=== PATIENT | female | born 1990 | race Caucasian/White ===

== ENCOUNTER 2022-08-15 17:26 | Emergency (ER) | payer OTHER, SELFPAY ==
[2022-08-15 17:34] VITALS: BP 128/97; PULSE 68; RESP 18; TEMP 37.1; O2SAT 97; BMI 30.2
--- NOTE | 2022-08-15 17:41 | XR_ITS ---
[address] [address] Patient Name: ROXANNE ROGERS MRN: [id number] date: 1990 Sex: F Assigned Patient Location: ER Current Patient Location: ER Accession/Order Number: [id number] Exam Date: 08/15/2022 17:42 Report Date: 08/15/2022 18:28 At the request of: SANTANA CHARLES Procedure: XR foot LT min 3V EXAM: XR foot LT min 3V HISTORY: Left great toe injury COMPARISON: None. TECHNIQUE: 3 views left foot. FINDINGS: No fracture or dislocation. No significant swelling. No radiopaque foreign body. Minimal degenerative change of the great toe MTP joint. Tiny plantar calcaneal enthesophyte. IMPRESSION: No acute process left great toe. Electronically authenticated by: GIULIANO JAMES Date: 08/15/2022 18:28
--- NOTE | 2022-08-15 17:43 | ED.LOWEXI1 ---
HPI - Extremity Injury (Lower) General Chief Complaint: Extremity Injury, Lower Stated Complaint: LOWER EXTREMITY PAIN Time Seen by Provider: 08/15/22 17:34 Source: patient Mode of arrival: walk-in Limitations: no limitations History of Present Illness HPI Narrative: 31 year old female presents to the ED for pain to her left great toe s/p injury one week ago. States she missed a step and stubbed the toe. Denies N/T. She has increased pain with movement and palpation. Related Data Home Medications Medication Instructions Recorded Confirmed drospirenone 3 mg-ethinyl 1 tab PO DAILY 08/15/22 08/15/22 estradiol 0.03 mg tablet (Caterina) sertraline 50 mg tablet 50 mg PO Q24H 08/15/22 08/15/22 trazodone 100 mg tablet 100 mg PO BEDTIME 08/15/22 08/15/22 Allergies Allergy/AdvReac Type Severity Reaction Status Date / Time No Known Drug Allergies Allergy Verified 08/15/22 17:32 Review of Systems ROS Constitutional Denies: fever or chills Cardiovascular Denies: chest pain Respiratory Denies: shortness of breath Musculoskeletal Reports: extremity pain Neurological Denies: numbness in extremities or weakness in extremities [facility] Medical History (Updated 08/15/22 @ 18:34 by Marilu Mei) Social History Smoking status: Former smoker Exam Constitutional Vital Signs - 24 hr 08/15/22 17:34 Temperature 98.7 F Pulse Rate [Monitor] 68 Respiratory Rate 18 Blood Pressure [Left Arm] 128/97 H Pulse Oximetry 97 Oxygen Delivery Method Room Air Common normals: no apparent distress and oriented x3 General appearance: cooperative; not ill appearing Eye Common normals: no scleral icterus Chest Chest: symmetrical chest wall rise Respiratory Common normals: normal respiratory effort Extremity Left lower extremity: foot and digits Left foot and digits: inspection (No swelling or deformity noted to left great toe. Scab noted to distal toe.), palpation (Tenderness left great toe. Pad of the digit is soft. ), neurovascular exam (Distal sensation intact. Pedal pulses palpable. Cap refill <3 sec.) and other (Appears to be no nail involvement.) Neuro Common normals: oriented x3 Sensorium/orientation: awake and alert Course Vital Signs Vital signs: Vital Signs Temperature 98.7 F 08/15/22 17:34 Pulse Rate 68 08/15/22 17:34 Respiratory Rate 18 08/15/22 17:34 Blood Pressure 128/97 H 08/15/22 17:34 Pulse Oximetry 97 08/15/22 17:34 Oxygen Delivery Method Room Air 08/15/22 17:34 Temperature 98.7 F 08/15/22 17:34 Pulse Rate 68 08/15/22 17:34 Respiratory Rate 18 08/15/22 17:34 Blood Pressure 128/97 H 08/15/22 17:34 Pulse Oximetry 97 08/15/22 17:34 Oxygen Delivery Method Room Air 08/15/22 17:34 MDM - Extremity Injury (Lower) MDM Narrative Medical decision making narrative: X-rays of the left foot show no acute findings. Findings were discussed with the patient. She was encouraged to follow up with her pcp for a recheck, further evaluation and treatment; return to ED if condition worsens. Differential Diagnosis Differential diagnosis: Likely fracture of toe and other (toe sprain, toe contusion) Imaging Data X-ray foot: Radiologist's impression: Procedure:? XR foot LT min 3V ? EXAM: XR foot LT min 3V ? HISTORY: Left great toe injury ? COMPARISON: None. ? TECHNIQUE: 3 views left foot. ? FINDINGS: No fracture or dislocation. No significant swelling. No radiopaque foreign body. Minimal degenerative change of the great toe MTP joint. Tiny plantar calcaneal enthesophyte. ? IMPRESSION: No acute process left great toe. ? ? Electronically authenticated by: GIULIANO? JACOB ? Date: 08/15/2022? 18:28 Discharge Plan Discharge Chief Complaint: Extremity Injury, Lower Clinical Impression: Sprain of toe, great, left Patient Disposition: Home, Self-Care Time of Disposition Decision: 18:34 Condition: Good Mode of Transportation: Private Vehicle Prescriptions / Home Meds: No Action trazodone 100 mg tablet 100 mg PO BEDTIME sertraline 50 mg tablet 50 mg PO Q24H drospirenone-ethinyl estradiol [Caterina] 3-0.03 mg tablet 1 tab PO DAILY Instructions: Foot Contusion (ED), Foot Sprain (ED) Stand Alone Forms: Portal Instructions Referrals: Анна Ha [Primary Care Provider] - 1 week
== END 2022-08-15 18:49 | disposition home or self-care (01) ==
PROVIDERS: Emergency Provider Emergency Medicine; PCP Nurse Practitioner
DX: S93.502A Unspecified sprain of left great toe, initial encounter (principal); W22.8XXA Striking against or struck by other objects, initial encounter
CPT/HCPCS: 73630; 99283

== ENCOUNTER 2022-09-22 15:45 | Emergency (ER) | payer OTHER, SELFPAY ==
[2022-09-22 15:49] VITALS: BP 139/82; PULSE 66; RESP 16; TEMP 36.6; O2SAT 98; BMI 29.1
[2022-09-22 16:05] LABS: Bilirubin Urine NEGATIVE (NEGATIVE); Blood Urine TRACE-I (NEGATIVE); Clarity Urine CLEAR (CLEAR); Color Urine YELLOW (YELLOW); Glucose Urine UA NEGATIVE (NEGATIVE); Ketones Urine NEGATIVE (NEGATIVE); Leukocyte Esterase Urine NEGATIVE (NEGATIVE); Nitrite Urine NEGATIVE (NEGATIVE); Protein Urine NEGATIVE (NEG/TRACE); pH Urine 6.5 (5.0-9.0)
[2022-09-22 16:06] LABS: Urine Microscopic Indicated YES
[2022-09-22 16:11] LABS: Bacteria Urine NONE SEEN #/HPF (NONE SEEN); Cast Seen? NONE SEEN #/LPF (NONE SEEN); Crystals Seen? None Seen #/HPF (None Seen); Mucus Urine NONE SEEN (NONE SEEN); RBC Urine 0-2 #/HPF (0-2); Squamous Epithelial Cell Urine FEW #/LPF (NONE/RARE); Urine Culture Indicated NO; WBC Urine NONE SEEN #/HPF (NONE SEEN)
--- NOTE | 2022-09-22 16:13 | XR_ITS ---
[address] [address] Patient Name: ROXANNE ROGERS MRN: [id number] date: 1990 Sex: F Assigned Patient Location: ER Current Patient Location: ER Accession/Order Number: [id number] Exam Date: 09/22/2022 16:33 Report Date: 09/22/2022 16:43 At the request of: CHRIS MORA Procedure: XR chest 1V Exam: Radiographs: XR chest 1V Reason for exam: left upper quadrant abdominal pain Comparison: Chest x-ray dated 02/20/2022 XR/XR chest 1V IMPRESSION: Negative chest. Electronically authenticated by: DIPAK DICKEY Date: 09/22/2022 16:43
--- NOTE | 2022-09-22 16:16 | ED_ITS ---
Documented by User: GISELLE Zarco 09/22/22 17:14 HPI - General Adult General Chief complaint: Abdominal Pain Stated complaint: Abdominal Pain Time Seen by Provider: 09/22/22 15:46 Source: patient Mode of arrival: walk-in History of Present Illness HPI narrative: patient is a 32-year-old female presents to the Emergency Room with concerns of left upper and lower quadrant and left flank abdominal pain. Patient notes symptoms started yesterday and have been constant becoming worse. Patient tried to go to [place] this morning and cannot make it due to the pain in abdomen. 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 She denies any dysuria. She describes the pain as aching constant throbbing pain in her left flank , left upper and lower macario drant. She denies any vaginal discharge or drainage, denies dysuria. Positive nausea. Patient without fever or chills.patient reports bowel movements have been regular and without blood or mucus, denies diarrhea. She denies any prior history of deep vein thrombosis or PE, no family history of deep vein thrombosis or PE. patient denies any recent surgery, long travels or flights.She has no personal history of Crohn's or colitis. Patient states she does have a cousin who cannot eat seeds secondary to a bowel problem. pt notes pain moderate to severe 8/10 undulating Radiation: Reports abdomen (+ bloated fullness at times) Severity: moderate Quality: Reports aching and constant Pain Consistency: Reports constant and colicky Relieving factors: Reports none Exacerbating factors: Reports none Associated symptoms: Denies cough, diaphoresis, fever/chills, loss of appetite or syncope Treatments prior to arrival: Reports none Related Data Home Medications Medication Instructions Recorded Confirmed drospirenone 3 mg-ethinyl 1 tab PO DAILY 08/15/22 08/15/22 estradiol 0.03 mg tablet (Caterina) sertraline 50 mg tablet 50 mg PO Q24H 08/15/22 08/15/22 trazodone 100 mg tablet 100 mg PO BEDTIME 08/15/22 08/15/22 Previous Rx's Medication Instructions Recorded ondansetron HCl 4 mg tablet 4 mg PO Q6H PRN nausea and 09/22/22 vomiting #12 tabs Allergies Allergy/AdvReac Type Severity Reaction Status Date / Time No Known Drug Allergies Allergy Verified 08/15/22 17:32 Review of Systems ROS Constitutional Denies: fever or chills Eyes Denies: change in vision Ears, nose, mouth, and throat Denies: throat pain or neck pain Cardiovascular Denies: chest pain or palpitations Respiratory Denies: shortness of breath or cough Gastrointestinal Reports: abdominal pain and nausea; Denies: vomiting or diarrhea Genitourinary Denies: painful urination, urinary frequency or urinary urgency Musculoskeletal Denies: back pain, neck pain or extremity pain Integumentary/Breast Denies: rash, itching or redness Neurological Denies: headache Psychiatric Denies: anxiety [facility] Medical History (Updated 09/22/22 @ 17:04 by GISELLE Zarco) Social History Smoking status: Former smoker Exam Narrative Exam Narrative: Nurses notes and vital signs reviewed and patient is not hypoxic. General:? The patient appears well and in no apparent distress.? Patient is resting comfortably on cart. Skin:? Warm, dry, no pallor noted.no evidence of zoster-like rash Head:? Normocephalic, atraumatic Neck:? Supple, trachea mid-line, no tenderness, no lymphadenopathy Eye:? Pupils are equal, round and reactive to light, EOMI Ears, Nose, Mouth, and Throat:? TM are clear, normal light reflex, oral mucosa is moist, no posterior oropharynx erythema or hypertrophy, uvula is mid-line Cardiovascular:? Regular Rate and Rhythm Respiratory:? Patient is in no distress, no accessory muscle use, lungs are clear to auscultation, no wheezing, rales or rhonchi. Chest Wall:? minmal left lower chest wall tenderness, no focal rib tenderness. no palpable crepitus, patient is more tender in the left flank and left upper quadrant and then the left chest wall Back:? non-tender to the midline thoracic or lumbar spine. mild left CVA tenderness Musculoskeletal:? normal ROM, no tenderness, no swelling GI:? Normal bowel sounds, positive diffuse tenderness left upper, left mid and left lower quadrant. no masses appreciated.? No rebound, guarding, or rigidity noted. Neurological:? A&O x4 Psychiatric:? Cooperative Constitutional Vital Signs, click to edit/add: Last Vital Signs Temp 97.8 F 09/22/22 15:49 Pulse 66 09/22/22 15:49 Resp 16 09/22/22 15:49 BP 139/82 09/22/22 15:49 Pulse Ox 98 09/22/22 15:49 O2 Del Method Room Air 09/22/22 15:49 Course Vital Signs Vital signs: Vital Signs Temperature 97.8 F 09/22/22 15:49 Pulse Rate 66 09/22/22 15:49 Respiratory Rate 16 09/22/22 15:49 Blood Pressure 139/82 09/22/22 15:49 Pulse Oximetry 98 09/22/22 15:49 Oxygen Delivery Method Room Air 09/22/22 15:49 Temperature 97.8 F 09/22/22 15:49 Pulse Rate 66 09/22/22 15:49 Respiratory Rate 16 09/22/22 15:49 Blood Pressure 139/82 09/22/22 15:49 Pulse Oximetry 98 09/22/22 15:49 Oxygen Delivery Method Room Air 09/22/22 15:49 Medical Decision Making MDM Narrative Medical decision making narrative: patient with left flank pain, we discussed patient's symptoms of pain in the left upper and left lower quadrant. Constant. Over forty-eight hours. Abrupt in onset per patient. Patient denies any fever or dysuria. Denies any vaginal symptoms.urinalysis with trace blood, CT of the abdomen and pelvis without contrast performed rule out stone, diverticulitis discussed with the patient given the level for pain and persistence over the past forty-eight hours. Posterior chest x-ray and laboratory studies, patient has stable vital signs, pleuritic chest pain not appreciated and Wells Criteria for PE is neg. discussed laboratory studies and CT scan, discussed stool burden throughout the colon, further discussion with the patient at bedside even though her pain is constant she does note rhythmic changes with sometimes symptoms worse than others without change in position or movement, patient states she is relieved that there is no infectious process. She does not have any difficulty breathing. We've discusssed using MiraLAX daily which she or he has at home and will be given his mag citrate half bottle now and half bottle to take an morning , if not experiencing relief. A brief prescription of Zofran will be sent for nausea. We discussed at length the need to return to the Emergency Room should symptoms worsen or new symptoms develop despite evaluation today with CT and laboratory studies.patient appears in no distress. We discussed medications given and she reports no significant relief but feels better and willing to try the medics citrate at home. The patient is to followup with primary care physician in next 1-2 days or to return to the emergency department should any of the signs or symptoms worsen or new symptoms develop. Patient had questions answered. The patient agrees with the following Diagnosis and Treatment plan and the patient will be discharged home.? Lab Data Lab results reviewed: Yes I reviewed the patient's lab results Labs: Lab Results 09/22/22 09/22/22 09/22/22 Range/Units 16:00 16:10 16:18 WBC 10.4 (4.0-11.0) 10^3/uL RBC 3.87 L (4.20-5.40) 10^6/uL Hgb 11.9 L (12.0-16.0) g/dL Hct 35.1 L (36.0-48.0) % MCV 90.7 (81.0-99.0) fL MCH 30.7 (26.7-34.0) pg MCHC 33.9 (29.9-35.2) g/dL RDW 12.0 (11.0-15.0) % Plt Count 306 (150-450) 10^3/uL MPV 9.8 (9.5-13.5) fL Neut % (Auto) 67.1 (43.0-75.0) % Lymph % (Auto) 25.6 (20.5-60.0) % Dawson % (Auto) 6.5 (1.7-12.0) % Eos % (Auto) 0.2 L (0.9-7.0) % Baso % (Auto) 0.3 (0.2-2.0) % Neut # (Auto) 7.0 H (1.4-6.5) 10^3/uL Lymph # (Auto) 2.7 (1.2-3.8) 10^3/uL Dawson # (Auto) 0.7 (0.3-0.8) 10^3/uL Eos # (Auto) 0.0 (0.0-0.7) 10^3/uL Baso # (Auto) 0.0 (0.0-0.1) 10^3/uL Abs Immat Gran (auto) 0.03 (0.00-0.03) 10^3/uL Imm/Tot Granulo (auto) 0.3 (0.0-0.5) % Sodium 138 (136-145) mmol/L Potassium 4.1 (3.5-5.1) mmol/L Chloride 102 (98-107) mmol/L Carbon Dioxide 26.5 (21.0-32.0) mmol/L Anion Gap 13.6 BUN 8.0 (7.0-18.0) mg/dL Creatinine 0.85 (0.55-1.02) mg/dL Est GFR ( Amer) >60 (>=60) Est GFR (Non-Af Amer) >60 (>=60) BUN/Creatinine Ratio 9.4 Glucose 99 (74-106) mg/dL Lactate 0.8 (0.4-2.0) mmol/L Calcium 8.5 (8.5-10.1) mg/dL Total Bilirubin 0.4 (0.2-1.0) mg/dL AST <5 L (15-37) U/L ALT 29 (14-59) U/L Alkaline Phosphatase 58 (46-116) U/L Troponin I High Sens <4.0 L (4.0-51.3) pg/mL Total Protein 7.8 (6.4-8.2) g/dL Albumin 3.7 (3.4-5.0) g/dL Globulin 4.1 g/dL Albumin/Globulin Ratio 0.9 Lipase 351.0 (73.0-393.0) U/L Urine Color Yellow (YELLOW) Urine Clarity Clear (CLEAR) Urine pH 6.5 (5.0-9.0) Ur Specific [place] 1.020 (1.005-1.025) Urine Protein Negative (NEG/TRACE) mg/dL Urine Glucose (UA) Negative (NEGATIVE) mg/dL Urine Ketones Negative (NEGATIVE) mg/dL Urine Occult Blood Trace-i (NEGATIVE) Urine Nitrite Negative (NEGATIVE) Urine Bilirubin Negative (NEGATIVE) Urine Urobilinogen 1.0 (0.2-1.0) EU/dL Ur Leukocyte Esterase Negative (NEGATIVE) Urine RBC 0-2 (0-2) #/HPF Urine WBC None seen (NONE SEEN) #/HPF Ur Squamous Epith Cells Few A (NONE/RARE) #/LPF Urine Crystals None seen (None Seen) #/HPF Urine Bacteria None seen (NONE SEEN) #/HPF Urine Casts None seen (NONE SEEN) #/LPF Urine Mucus None seen (NONE SEEN) Ur Culture Indicated? No Urine HCG, Qual Negative (NEGATIVE) Imaging Data Chest x-ray: Radiologist's impression: Procedure: XR chest 1V Exam: Radiographs: XR chest 1V Reason for exam: left upper quadrant abdominal pain Comparison: Chest x-ray dated 02/20/2022 IMPRESSION: Negative chest. Electronically authenticated by: DIPAK DICKEY Date: 09/22/2022 16:43 CT scan - abdomen: Radiologist's impression: Procedure:? CT abdomen pelvis wo con ? EXAM: CT abdomen pelvis wo con ? HISTORY: left flank pain r/o stone diverticulitis ? COMPARISON: None. ? TECHNIQUE: Unenhanced helical acquisition obtained through the abdomen and the ? pelvis. ? FINDINGS: Calcified right lower lobe pulmonary granuloma. The pleural spaces are clear. Allowing for the lack of intravenous contrast, the liver, spleen, pancreas and the adrenal glands are unremarkable. Unremarkable gallbladder. No ? renal or ureteral calculi. No enlarged lymph nodes within the abdomen or the pelvis. Normal appendix. Fairly extensive stool burden throughout the colon to ? level of the rectum. No evidence of bowel obstruction or significant ileus. Chronic bilateral L5 spondylolysis. ? CT/CT abdomen pelvis wo con IMPRESSION: ? 1. No renal or ureteral calculi. ? 2. Normal appendix. No inflammatory changes within the abdomen or the pelvis. ? 3. Fairly extensive stool burden throughout the colon indicating constipation. ? 4. Chronic bilateral L5 spondylolysis. ? ? Electronically authenticated by: RELL HERRERA ? Date: 09/22/2022? 16:56 Discharge Plan Discharge Chief Complaint: Abdominal Pain Clinical Impression: Abdominal pain, Constipation Patient Disposition: Home, Self-Care Time of Disposition Decision: 17:05 Condition: Good Prescriptions / Home Meds: New ondansetron HCl 4 mg tablet 4 mg PO Q6H PRN (Reason: nausea and vomiting) Qty: 12 0RF No Action trazodone 100 mg tablet 100 mg PO BEDTIME sertraline 50 mg tablet 50 mg PO Q24H drospirenone-ethinyl estradiol [Caterina] 3-0.03 mg tablet 1 tab PO DAILY Instructions: Constipation (ED), Abdominal Pain (ED) Stand Alone Forms: Portal Instructions Referrals: Анна Ha [Primary Care Provider] - As soon as possible Discharge Date/Time: 09/22/22 17:41 Documented by User: Tiffany Ramirez MD 09/23/22 20:31 HPI - General Adult General Chief complaint: Abdominal Pain Stated complaint: Abdominal Pain Time Seen by Provider: 09/22/22 15:46 Related Data Home Medications Medication Instructions Recorded Confirmed drospirenone 3 mg-ethinyl 1 tab PO DAILY 08/15/22 08/15/22 estradiol 0.03 mg tablet (Caterina) sertraline 50 mg tablet 50 mg PO Q24H 08/15/22 08/15/22 trazodone 100 mg tablet 100 mg PO BEDTIME 08/15/22 08/15/22 Previous Rx's Medication Instructions Recorded ondansetron HCl 4 mg tablet 4 mg PO Q6H PRN nausea and 09/22/22 vomiting #12 tabs Allergies Allergy/AdvReac Type Severity Reaction Status Date / Time No Known Drug Allergies Allergy Verified 08/15/22 17:32 [facility] Medical History (Updated 09/22/22 @ 17:04 by GISELLE Zarco) Social History Smoking status: Former smoker Exam Constitutional Vital Signs, click to edit/add: Last Vital Signs Temp 97.8 F 09/22/22 15:49 Pulse 66 09/22/22 15:49 Resp 16 09/22/22 15:49 BP 139/82 09/22/22 15:49 Pulse Ox 98 09/22/22 15:49 O2 Del Method Room Air 09/22/22 15:49 Course Vital Signs Vital signs: Vital Signs Temperature 97.8 F 09/22/22 15:49 Pulse Rate 66 09/22/22 15:49 Respiratory Rate 16 09/22/22 15:49 Blood Pressure 139/82 09/22/22 15:49 Pulse Oximetry 98 09/22/22 15:49 Oxygen Delivery Method Room Air 09/22/22 15:49 Temperature 97.8 F 09/22/22 15:49 Pulse Rate 66 09/22/22 15:49 Respiratory Rate 16 09/22/22 15:49 Blood Pressure 139/82 09/22/22 15:49 Pulse Oximetry 98 09/22/22 15:49 Oxygen Delivery Method Room Air 09/22/22 15:49 Medical Decision Making MDM Narrative Medical decision making narrative: patient with left flank pain, we discussed patient's symptoms of pain in the left upper and left lower quadrant. Constant. Over forty-eight hours. Abrupt in onset per patient. Patient denies any fever or dysuria. Denies any vaginal symptoms.urinalysis with trace blood, CT of the abdomen and pelvis without contrast performed rule out stone, diverticulitis discussed with the patient given the level for pain and persistence over the past forty-eight hours. Posterior chest x-ray and laboratory studies, patient has stable vital signs, pleuritic chest pain not appreciated and Wells Criteria for PE is neg. discussed laboratory studies and CT scan, discussed stool burden throughout the colon, further discussion with the patient at bedside even though her pain is constant she does note rhythmic changes with sometimes symptoms worse than others without change in position or movement, patient states she is relieved that there is no infectious process. She does not have any difficulty breathing. We've discusssed using MiraLAX daily which she or he has at home and will be given his mag citrate half bottle now and half bottle to take an morning , if not experiencing relief. A brief prescription of Zofran will be sent for nausea. We discussed at length the need to return to the Emergency Room should symptoms worsen or new symptoms develop despite evaluation today with CT and laboratory studies.patient appears in no distress. We discussed medications given and she reports no significant relief but feels better and willing to try the medics citrate at home. The patient is to followup with primary care physician in next 1-2 days or to return to the emergency department should any of the signs or symptoms worsen or new symptoms develop. Patient had questions answered. The patient agrees with the following Diagnosis and Treatment plan and the patient will be discharged home.? Attending physician attestation I have reviewed the mid-level documentation, agree with the documentation, medical decision making and treatment plan as outlined by the mid-level provider. Lab Data Labs: Lab Results 09/22/22 09/22/22 09/22/22 Range/Units 16:00 16:10 16:18 WBC 10.4 (4.0-11.0) 10^3/uL RBC 3.87 L (4.20-5.40) 10^6/uL Hgb 11.9 L (12.0-16.0) g/dL Hct 35.1 L (36.0-48.0) % MCV 90.7 (81.0-99.0) fL MCH 30.7 (26.7-34.0) pg MCHC 33.9 (29.9-35.2) g/dL RDW 12.0 (11.0-15.0) % Plt Count 306 (150-450) 10^3/uL MPV 9.8 (9.5-13.5) fL Neut % (Auto) 67.1 (43.0-75.0) % Lymph % (Auto) 25.6 (20.5-60.0) % Dawson % (Auto) 6.5 (1.7-12.0) % Eos % (Auto) 0.2 L (0.9-7.0) % Baso % (Auto) 0.3 (0.2-2.0) % Neut # (Auto) 7.0 H (1.4-6.5) 10^3/uL Lymph # (Auto) 2.7 (1.2-3.8) 10^3/uL Dawson # (Auto) 0.7 (0.3-0.8) 10^3/uL Eos # (Auto) 0.0 (0.0-0.7) 10^3/uL Baso # (Auto) 0.0 (0.0-0.1) 10^3/uL Abs Immat Gran (auto) 0.03 (0.00-0.03) 10^3/uL Imm/Tot Granulo (auto) 0.3 (0.0-0.5) % Sodium 138 (136-145) mmol/L Potassium 4.1 (3.5-5.1) mmol/L Chloride 102 (98-107) mmol/L Carbon Dioxide 26.5 (21.0-32.0) mmol/L Anion Gap 13.6 BUN 8.0 (7.0-18.0) mg/dL Creatinine 0.85 (0.55-1.02) mg/dL Est GFR ( Amer) >60 (>=60) Est GFR (Non-Af Amer) >60 (>=60) BUN/Creatinine Ratio 9.4 Glucose 99 (74-106) mg/dL Lactate 0.8 (0.4-2.0) mmol/L Calcium 8.5 (8.5-10.1) mg/dL Total Bilirubin 0.4 (0.2-1.0) mg/dL AST <5 L (15-37) U/L ALT 29 (14-59) U/L Alkaline Phosphatase 58 (46-116) U/L Troponin I High Sens <4.0 L (4.0-51.3) pg/mL Total Protein 7.8 (6.4-8.2) g/dL Albumin 3.7 (3.4-5.0) g/dL Globulin 4.1 g/dL Albumin/Globulin Ratio 0.9 Lipase 351.0 (73.0-393.0) U/L Urine Color Yellow (YELLOW) Urine Clarity Clear (CLEAR) Urine pH 6.5 (5.0-9.0) Ur Specific [place] 1.020 (1.005-1.025) Urine Protein Negative (NEG/TRACE) mg/dL Urine Glucose (UA) Negative (NEGATIVE) mg/dL Urine Ketones Negative (NEGATIVE) mg/dL Urine Occult Blood Trace-i (NEGATIVE) Urine Nitrite Negative (NEGATIVE) Urine Bilirubin Negative (NEGATIVE) Urine Urobilinogen 1.0 (0.2-1.0) EU/dL Ur Leukocyte Esterase Negative (NEGATIVE) Urine RBC 0-2 (0-2) #/HPF Urine WBC None seen (NONE SEEN) #/HPF Ur Squamous Epith Cells Few A (NONE/RARE) #/LPF Urine Crystals None seen (None Seen) #/HPF Urine Bacteria None seen (NONE SEEN) #/HPF Urine Casts None seen (NONE SEEN) #/LPF Urine Mucus None seen (NONE SEEN) Ur Culture Indicated? No Urine HCG, Qual Negative (NEGATIVE) Discharge Plan Discharge Chief Complaint: Abdominal Pain Clinical Impression: Abdominal pain, Constipation Patient Disposition: Home, Self-Care Time of Disposition Decision: 17:05 Condition: Good Prescriptions / Home Meds: New ondansetron HCl 4 mg tablet 4 mg PO Q6H PRN (Reason: nausea and vomiting) Qty: 12 0RF No Action trazodone 100 mg tablet 100 mg PO BEDTIME sertraline 50 mg tablet 50 mg PO Q24H drospirenone-ethinyl estradiol [Caterina] 3-0.03 mg tablet 1 tab PO DAILY Instructions: Constipation (ED), Abdominal Pain (ED) Stand Alone Forms: Portal Instructions Referrals: Анна Ha [Primary Care Provider] - As soon as possible Discharge Date/Time: 09/22/22 17:41
[2022-09-22 16:22] LABS: HCG Qualitative Urine* NEGATIVE (NEGATIVE)
--- NOTE | 2022-09-22 16:23 | CT_ITS ---
The [address] [address] Patient Name: ROXANNE ROGERS MRN: [id number] date: 1990 Sex: F Assigned Patient Location: ER Current Patient Location: ER Accession/Order Number: [id number] Exam Date: 09/22/2022 16:36 Report Date: 09/22/2022 17:00 At the request of: CHRIS MORA Procedure: CT abdomen pelvis wo con EXAM: CT abdomen pelvis wo con HISTORY: left flank pain r/o stone diverticulitis COMPARISON: None. TECHNIQUE: Unenhanced helical acquisition obtained through the abdomen and the pelvis. FINDINGS: Calcified right lower lobe pulmonary granuloma. The pleural spaces are clear. Allowing for the lack of intravenous contrast, the liver, spleen, pancreas and the adrenal glands are unremarkable. Unremarkable gallbladder. No renal or ureteral calculi. No enlarged lymph nodes within the abdomen or the pelvis. Normal appendix. Fairly extensive stool burden throughout the colon to level of the rectum. No evidence of bowel obstruction or significant ileus. Chronic bilateral L5 spondylolysis. CT/CT abdomen pelvis wo con IMPRESSION: 1. No renal or ureteral calculi. 2. Normal appendix. No inflammatory changes within the abdomen or the pelvis. 3. Fairly extensive stool burden throughout the colon indicating constipation. 4. Chronic bilateral L5 spondylolysis. Electronically authenticated by: GORDY HERRERA Date: 09/22/2022 17:00
[2022-09-22 16:25] LABS: Basophils Percent Auto 0.3 % (0.2-2.0); Eosinophils Percent Auto 0.2 % (0.9-7.0); Hematocrit 35.1 % (36.0-48.0); Hemoglobin 11.9 g/dL (12.0-16.0); Immature Granulocytes Abs Auto 0.03 10^3/uL (0.00-0.03); Immature Granulocytes Pct Auto 0.3 % (0.0-0.5); Lymphocytes Absolute Auto 2.7 10^3/uL (1.2-3.8); Lymphocytes Percent Auto 25.6 % (20.5-60.0); Mean Corpuscular HGB Conc 33.9 g/dL (29.9-35.2); Mean Corpuscular Hemoglobin 30.7 pg (26.7-34.0); Mean Corpuscular Volume 90.7 fL (81.0-99.0); Mean Platelet Volume 9.8 fL (9.5-13.5); Monocytes Absolute Auto 0.7 10^3/uL (0.3-0.8); Monocytes Percent Auto 6.5 % (1.7-12.0); Neutrophils Percent Auto 67.1 % (43.0-75.0); Platelet Count 306 10^3/uL (150-450); Red Blood Count 3.87 10^6/uL (4.20-5.40); White Blood Count 10.4 10^3/uL (4.0-11.0)
[2022-09-22 16:42] LABS: Alanine Aminotransferase 29 U/L (14-59); Albumin Globulin Ratio 0.9; Albumin Level 3.7 g/dL (3.4-5.0); Alkaline Phosphatase 58 U/L (46-116); Anion Gap 13.6; BUN Creatinine Ratio 9.4; Bilirubin Total 0.4 mg/dL (0.2-1.0); Calcium 8.5 mg/dL (8.5-10.1); Carbon Dioxide 26.5 mmol/L (21.0-32.0); Chloride 102 mmol/L (98-107); Estimated GFR (African America >60 (>=60); Estimated GFR (Non-African Ame >60 (>=60); Globulin 4.1 g/dL; Glucose 99 mg/dL (74-106); Lactate/Lactic Acid 0.8 mmol/L (0.4-2.0); Potassium 4.1 mmol/L (3.5-5.1); Sodium 138 mmol/L (136-145); Total Protein 7.8 g/dL (6.4-8.2); Troponin I High Sensitivity <4.0 pg/mL (4.0-51.3)
[2022-09-22] MEDS: ONDANSETRON PF 4 MG/2 ML VIAL IV (16:42)
[2022-09-22] MEDS: KETOROLAC TROMETHAMINE 30 MG/ML VIAL IVP (16:42)
[2022-09-22] MEDS: FAMOTIDINE/PF 20 MG/2 ML VIAL IV (16:42)
[2022-09-22] MEDS: DICYCLOMINE HCL 10 MG CAPSULE 20 MG PO (16:42)
[2022-09-22 16:43] LABS: Aspartate Amino Transferase <5 U/L (15-37)
[2022-09-22] MEDS: 0.9 % SODIUM CHLORIDE 1,000 ML 999 ML IV (16:43)
[2022-09-22] MEDS: MAGNESIUM CITRATE 296 ML SOLUTION PO (17:31)
== END 2022-09-22 17:41 | disposition home or self-care (01) ==
PROVIDERS: Personal Emergency Response Attendant; Emergency Provider Emergency Medicine; PCP Nurse Practitioner
DX: R10.9 Unspecified abdominal pain (principal); K59.00 Constipation, unspecified; Z87.891 Personal history of nicotine dependence; Z79.899 Other long term (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 therapy
CPT/HCPCS: 36415; 71045; 74176; 80053; 81001; 81003; 83605; 83690; 84484; 84703; 85025; 96374; 96375; 99285

== ENCOUNTER 2022-11-25 21:41 | Outpatient (REF) | payer OTHER, SELFPAY ==
[2022-12-03 00:06] LABS: Age Gdln ACOG Testing Note (.); HPV Aptima Positive (Negative); HPV Genotype 16 Negative (Negative); HPV Genotype 18,45 Negative (Negative); IGP, Aptima HPV, rfx 16/18,45 Note (.)
== END 2022-11-25 21:42 | disposition home or self-care (01) ==
LOC: LAB 21:41
PROVIDERS: PCP Nurse Practitioner; Visit Provider Obstetrics & Gynecology
DX: Z12.4 Encounter for screening for malignant neoplasm of cervix (principal)
CPT/HCPCS: 87624; 87625; G0145

== ENCOUNTER 2022-12-20 10:12 | Emergency (ER) | payer OTHER, SELFPAY ==
[2022-12-20 10:18] VITALS: BP 119/77; PULSE 82; RESP 14; TEMP 36.8; O2SAT 98; BMI 29.5
[2022-12-20 10:44] LABS: Bilirubin Urine NEGATIVE (NEGATIVE); Blood Urine MODERATE (NEGATIVE); Clarity Urine CLEAR (CLEAR); Color Urine YELLOW (YELLOW); Glucose Urine UA NEGATIVE (NEGATIVE); Ketones Urine NEGATIVE (NEGATIVE); Leukocyte Esterase Urine SMALL (NEGATIVE); Nitrite Urine NEGATIVE (NEGATIVE); Protein Urine 100 mg/dL (NEG/TRACE); Specific Gravity Urine 1.025 (1.005-1.025); Urobilinogen Urine 0.2 EU/dL (0.2-1.0)
[2022-12-20 10:50] LABS: Urine Microscopic Indicated YES
[2022-12-20 10:51] LABS: HCG Qualitative Urine* NEGATIVE (NEGATIVE)
[2022-12-20 11:11] LABS: Bacteria Urine SMALL #/HPF (NONE SEEN); Cast Seen? NONE SEEN #/LPF (NONE SEEN); Crystals Seen? None Seen #/HPF (None Seen); Mucus Urine NONE SEEN (NONE SEEN); Squamous Epithelial Cell Urine RARE #/LPF (NONE/RARE); Urine Culture Indicated YES
--- NOTE | 2022-12-20 11:44 | ED.GENADUL1 ---
HPI - General Adult General Chief complaint: Urogenital-Female Stated complaint: FREQUENT URINATION ABDOMINAL PAIN, BURNING WHEN UR Time Seen by Provider: 12/20/22 11:43 Source: patient Mode of arrival: walk-in Limitations: no limitations History of Present Illness HPI narrative: Patient is a 32 yo female Who is presenting to the Emergency Room today with chief complaint of approximately 7 days of urinary tract infection. Patient has no fever, chills, no flank pain or back pain bilateral. Patient stated that she started having urinary frequency, urgency and burning last Friday, on December 13. Patient has no vaginal bleeding, discharge, orders, she's not currently on her period. Patient has no history kidney stones. Patient states she has had a urinary tract infections in the past, that is been several years. Patient is aware to urinate after intercourse. No other trauma. Patient feels like she has a pain/pressure over her bladder and also over her [place]. Patient denies any type of trauma, no assault. No other bowel concerns of diarrhea, constipation or rectal bleeding. Patient has no vaginal bleeding at this time. Urine result was done prior to my performing history and physical. No abdominal pain, nausea, vomiting, or any acute complaints. . All systems are negative except as noted/marked. All systems reviewed and otherwise negative. . Nurses note and vital signs reviewed and patient is not hypoxic. General: The patient appears well and in no apparent distress. Patient is resting comfortably on cart. Patient is not toxic, lethargic, or listless Skin: Warm, dry, no pallor noted. There is no rash noted. No petechiae, purpura. Head: Normocephalic, atraumatic Eye: Normal conjunctiva, no drainage, EOMI. PERRL Ears, Nose, Mouth, and Throat: oral mucosa is moist. Nares patent. Mouth without vesicles. Cardiovascular: Regular Rate and Rhythm, no murmur, gallop, rub Respiratory: Patient is in no distress, no accessory muscle use, lungs are clear to auscultation, no wheezing, rales or rhonchi Back: non-tender, no CVA tenderness bilaterally to percussion. No CT LS midline pain GI: soft, Patient has moderate suprapubic tenderness to palpation. Patient says that she has a pain sensation over the vagina, she has no abscess, no drainage, bleeding, orders. No peritoneal signs, no flank pain bilateral, no CVA tenderness to palpation. otherwise no tenderness to palpation, no masses appreciated. No rebound, guarding, or rigidity noted. No flank pain bilateral, No distention Musculoskeletal: Patient has full range of motion of all of the extremities, no motor, sensory, or focal neurological deficits Neurological: A&O x3, normal speech Psychiatric: Cooperative Related Data Home Medications Medication Instructions Recorded Confirmed drospirenone 3 mg-ethinyl 1 tab PO DAILY 08/15/22 08/15/22 estradiol 0.03 mg tablet (Caterina) trazodone 100 mg tablet 100 mg PO BEDTIME 08/15/22 12/20/22 fluoxetine 10 mg capsule 10 mg PO QDAY 12/20/22 12/20/22 Previous Rx's Medication Instructions Recorded phenazopyridine 200 mg tablet 200 mg PO Q8H 2 days #6 tabs 12/20/22 (Pyridium) sulfamethoxazole 800 1 tab PO BID 7 days #14 tabs 12/20/22 mg-trimethoprim 160 mg tablet (Bactrim DS) Allergies Allergy/AdvReac Type Severity Reaction Status Date / Time No Known Drug Allergies Allergy Verified 12/20/22 10:17 [facility] Medical History (Updated 12/20/22 @ 12:51 by Emilio Anne MD) SVT (supraventricular tachycardia) ?I47.1 - Supraventricular tachycardia (ICD-10) Social History Smoking status: Never smoker Exam Constitutional Vital Signs, click to edit/add: Last Vital Signs Temp 98.2 F 12/20/22 10:18 Pulse 82 12/20/22 10:18 Resp 14 12/20/22 10:18 BP 119/77 12/20/22 10:18 Pulse Ox 98 12/20/22 10:18 O2 Del Method Room Air 12/20/22 10:18 Course Vital Signs Vital signs: Vital Signs Temperature 98.2 F 12/20/22 10:18 Pulse Rate 82 12/20/22 10:18 Respiratory Rate 14 12/20/22 10:18 Blood Pressure 119/77 12/20/22 10:18 Pulse Oximetry 98 12/20/22 10:18 Oxygen Delivery Method Room Air 12/20/22 10:18 Temperature 98.2 F 12/20/22 10:18 Pulse Rate 82 12/20/22 10:18 Respiratory Rate 14 12/20/22 10:18 Blood Pressure 119/77 12/20/22 10:18 Pulse Oximetry 98 12/20/22 10:18 Oxygen Delivery Method Room Air 12/20/22 10:18 Medical Decision Making MDM Narrative Medical decision making narrative: Patient has urinary frequency, or rigidity burning. Patient's urine shows white blood cells, bacteria, blood, no nitrite. Patient is not . Patient will be placed on Bactrim for 7 days, or burning. Patient increase fluids. Patient is work-related use. The patient's suprapubic/ vaginal pain is not improved, she has an [employer] that she'll follow up with next week. No other acute complaints or concerns at this time. 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 Lab Data Lab results reviewed: Yes I reviewed the patient's lab results Labs: Lab Results 12/20/22 Range/Units 10:25 Urine Color Yellow (YELLOW) Urine Clarity Clear (CLEAR) Urine pH 6.0 (5.0-9.0) Ur Specific [place] 1.025 (1.005-1.025) Urine Protein 100 A (NEG/TRACE) mg/dL Urine Glucose (UA) Negative (NEGATIVE) mg/dL Urine Ketones Negative (NEGATIVE) mg/dL Urine Occult Blood Moderate A (NEGATIVE) Urine Nitrite Negative (NEGATIVE) Urine Bilirubin Negative (NEGATIVE) Urine Urobilinogen 0.2 (0.2-1.0) EU/dL Ur Leukocyte Esterase Small A (NEGATIVE) Urine RBC 10-20 A (0-2) #/HPF Urine WBC 5-10 A (NONE SEEN) #/HPF Ur Squamous Epith Cells Rare (NONE/RARE) #/LPF Urine Crystals None seen (None Seen) #/HPF Urine Bacteria Small A (NONE SEEN) #/HPF Urine Casts None seen (NONE SEEN) #/LPF Urine Mucus None seen (NONE SEEN) Ur Culture Indicated? Yes Urine HCG, Qual Negative (NEGATIVE) Discharge Plan Discharge Chief Complaint: Urogenital-Female Clinical Impression: UTI (urinary tract infection) Patient Disposition: Home, Self-Care Condition: Fair Prescriptions / Home Meds: New phenazopyridine [Pyridium] 200 mg tablet 200 mg PO Q8H 2 Days Qty: 6 0RF sulfamethoxazole-trimethoprim [Bactrim DS] 800-160 mg tablet 1 tab PO BID 7 Days Qty: 14 0RF No Action trazodone 100 mg tablet 100 mg PO BEDTIME drospirenone-ethinyl estradiol [Caterina] 3-0.03 mg tablet 1 tab PO DAILY fluoxetine 10 mg capsule 10 mg PO QDAY Instructions: Urinary Tract Infection in Women (ED) Additional Instructions: Increase fluids at home, water or cranberry juice. If symptoms are not improved after antibiotics are finished, Follow-up with [employer] for further testing if needed. Stand Alone Forms: Portal Instructions Referrals: Анна Ha NP [Primary Care Provider] - 1 week
== END 2022-12-20 13:08 | disposition home or self-care (01) ==
PROVIDERS: Emergency Provider Emergency Medicine; PCP Nurse Practitioner
DX: N39.0 Urinary tract infection, site not specified (principal); Z87.440 Personal history of urinary (tract) infections; Z79.899 Other long term (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 therapy
CPT/HCPCS: 81001; 84703; 87086; 87150; 87186; 99283

== ENCOUNTER 2023-06-13 09:31 | Outpatient (OUT) | payer OTHER, SELFPAY ==
--- OUTSIDE RECORDS SUMMARY | 2023-06-13 09:42 | XMS_ITS | CCD ---
Author Organization [facility] Care Team Providers Care Rag Washer Name Role Phone AICHHOLZ, WIND FIELD MANAGER SCARLETT Primary Care Unavailable PAY, DR LIN Admitting Unavailable PAY, DR LIN Attending Unavailable GRECHNY, GISELLE ROBERTSON Consulting Unavailable LUZ, DR ORDAZ Admitting Unavailable LUZ, DR ORDAZ Attending Unavailable AICHHOLZ, WIND FIELD MANAGER SCARLETT Primary Care Unavailable LUZ, DR ORDAZ Consulting Unavailable AICHHOLZ, WIND FIELD MANAGER SCARLETT Admitting Unavailable AICHHOLZ, WIND FIELD MANAGER SCARLETT Attending Unavailable AICHHOLZ, WIND FIELD MANAGER SCARLETT Primary Care Unavailable AICHHOLZ, WIND FIELD MANAGER SCARLETT Consulting Unavailable AICHHOLZ, WIND FIELD MANAGER SCARLETT Primary Care Unavailable DON, DR BIRD Admitting Unavailable DON, DR BIRD Attending Unavailable LAURO, GISELLE ROBERTSON Consulting Unavailable ALFAROPHOEBE DEL RIO Consulting Unavailable AICHHOLZ, SCARLETT Attending Unavailable Problems Active Problems Problem Classification Problem Date Documented Da te Episodic/Chronic Influenza (1 source) Influenza due to other identified influenza virus with other respiratory manifestations; Translations: [FLU D/T OTH ID FLU VIR OTH RSP MANF] Onset: 02-22-2022 Episodic Other aftercare (1 source) 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; Translations: [CONVERTING SUPERVISOR HORMONAL CONTRACEPTIVES] Onset: 02-22-2022 Episodic Other aftercare (1 source) Other longterm (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 therapy; Translations: [OTH FPC CURRENT DRUG THERAPY] Onset: 02-22-2022 Episodic Other nutritional; endocrine; and metabolic disorders (1 source) Obesity, unspecified; Translations: [OBESITY UNSPECIFIED] Onset: 08-08-2021 Chronic Screening and history of mental health and substance abuse codes (1 source) Personal history of nicotine dependence; Translations: [PERSONAL HISTORY OF NICOTINE DEPEND] Onset: 02-22-2022 Episodic Unclassified (2 sources) COUGH, UNSPECIFIED; Translations: [COUGH, UNSPECIFIED] Onset: 02-22-2022 Unclassified (1 source) PERSONAL HISTORY OF COVID-19; Translations: [PERSONAL HISTORY OF COVID-19] Onset: 02-22-2022 Unclassified (1 source) CONTACT W/AND (SUSP) EXPOS COVID-19; Translations: [CONTACT W/AND (SUSP) EXPOS COVID-19] Onset: 02-22-2022 Past or Other Problems Problem Classification Problem Date Documented Date Episodic/Chronic Immunizations and screening for infectious disease (1 source) Encounter for screening for human papillomavirus (HPV); Translations: [ENC SCREENING HUMAN PAPILLOMAVIRUS] Onset: 11-10-2021 Episodic Inflammation; infection of eye (except that caused by tuberculosis or sexually transmitteddisease) (1 source) Unspecified conjunctivitis; Translations: [UNSPECIFIED CONJUNCTIVITIS] Onset: 08-22-2021 Episodic Other eye disorders (4 sources) Ocular pain, left eye; Translations: [OCULAR PAIN LEFT EYE] Onset: 08-20-2021 Episodic Other screening for suspected conditions (not mental disorders or infectious disease) (4 sources) Encounter for screening for malignant neoplasm of cervix; Translations: [ENC SCREENING MALIG NEOPLASM CERV] Onset: 11-06-2021 Episodic Other skin disorders (4 sources) Nonscarring hair loss, unspecified; Translations: [NONSCARRING HAIR LOSS UNSPECIFIED] Onset: 08-06-2021 Episodic Unclassified (1 source) COUGH, UNSPECIFIED; Translations: [COUGH, UNSPECIFIED] Onset: 02-20-2022 Results Test Name Value Interpretation Reference Range Facil ity Covid-19 PCR (CVDTB)on 01-25 SARS-CoV-2 (COVID-19) RNA JUAN+probe Ql (Unsp spec) Not detected Normal NOT DETECTED [facility] Comment on above: Result Comment: This test is not yet approved or cleared by the [place] FDA. When there are no FDA-approved or cleared tests available, and other criteria are met, FDA can make tests available under an emergency access mechanism called an Emergency Use Authorization (EUA). The EUA for this test is supported by the [employer] of Health and Human Service's (HHS's) declaration that circumstances exist to justify the emergency use of in vitro diagnostics for the detection and/or diagnosis of the virus that causes COVID-19. This EUA will remain in effect (meaning this test can be used) for the duration of the COVID-19 declaration justifying emergency of IVDs, unless it is terminated or revoked by FDA (after which the test may no longer be used). When diagnostic testing is negative, the possibility of a false negative should be considered in the context of a patient's recent exposures and the presence of clinical signs and symptoms consistent with SARS-CoV-2. Performed By: #### C VDTB #### [facility] [address] [place] [address] Dr. Luis Virgen INFLUENZA A AND B [facility] 02-20 INFLUBNEG SEE BELOW Normal [facility] Comment on above: Result Comment: Nega tive for Flu B protein antigen. Infection due to Flu B cannot be ruled out. Flu B antigen in the sample may be below the detection limit of the test. Performed By: #### I NFLUAB #### [facility] [address] [place] [address] Dr. Luis Virgen INFLUENZA A AG Positive Abnormal NEGATIVE SEE COMMENT [facility] Comment on above: Performed By: #### I NFLUAB #### [facility] [address] [place] [address] Dr. Luis Virgen INFLUENZA B AG Negative Normal NEGATIVE SEE COMMENT [facility] Comment on above: Performed By: #### I NFLUAB #### [facility] [address] [place] [address] Dr. Luis Virgen XR CHEST 1 Von 02-20-2022 XR CHEST 1 V EXAM: CHEST 1 VIEW HISTORY: COUGH TECHNIQUE: Chest, one view. COMPARISON: None. FINDINGS: Lungs are clear. No focal consolidation, pleural effusion, or pneumothorax. Pulmonary vasculature is within normal limits. Cardiomediastinal silhouette is normal. IMPRESSION: 1. No acute cardiopulmonary disease. Electronically authenticated by: PHOEBE ALFARO Date: 2022-02-20 17:46 Normal [facility] PAP ACOG PANEL 2: 30 to 65on 11-13-2021 . . Normal [facility] Comment on above: Result Comment: Perf ormed at: WB Performed By: #### [id number] #### [facility] [address] [place] [address] Dr. Luis Virgen Age Gdln ACOG Testing 30-65 Normal [facility] Comment on above: Performed By: #### [id number] #### [facility] [address] [place] [address] Dr. Luis Virgen DIAGNOSIS: Comment Normal [facility] Comment on above: Result Comment: NEGA TIVE FOR INTRAEPITHELIAL LESION OR MALIGNANCY. Performed at: WB Performed By: #### [id number] #### [facility] [address] [place] [address] Dr. Luis Virgen HPV Aptima Negative Normal Negative [facility] Comment on above: Result Comment: This nucleic acid amplification test detects fourteen high-risk HPV types (16,18,31,33,35,39,45,51,52,56,58,59,66,68) without differentiation. Performed at: =G Performed By: #### [id number] #### [facility] [address] [place] [address] Dr. Luis Virgen Methodology: Comment Normal [facility] Comment on above: Result Comment: This liquid based ThinPrep(R) pap test was screened with the use of an image guided system. Performed at: WB Performed By: #### [id number] #### [facility] [address] [place] [address] Dr. Luis Virgen Note: Comment Normal [facility] Comment on above: Result Comment: The Pap smear is a screening test designed to aid in the detection of premalignant and malignant conditions of the uterine cervix. It is not a diagnostic procedure and should not be used as the sole means of detecting cervical cancer. Both false-positive and false-negative reports do occur. . Performed at: WB Performed By: #### [id number] #### [facility] [address] [place] [address] Dr. Luis Virgen Performed by: Comment Normal [facility] Comment on above: Result Comment: Maureen Del Cid, Installer Inspector Final (ASCP) Performed at: WB Performed By: #### [id number] #### [facility] [address] [place] [address] Dr. Luis Virgen Specimen adequacy: Comment Normal [facility] Comment on above: Result Comment: Sati sfactory for evaluation. Endocervical and/or squamous metaplastic cells (endocervical component) are present. Performed at: WB Performed By: #### [id number] #### [facility] [address] [place] [address] Dr. Luis Virgen URon 08-20-2021 , QUAL Negative Normal NEGATIVE [facility] Comment on above: Performed By: #### P REGU #### [facility] [address] [place] [address] Dr. Luis Virgen CBC AUTO DIFFon 08-06-2021 BASO # 0.0 103/ul Normal 0.0-0.1 [facility] Comment on above: Performed By: #### C BC #### [facility] [address] [place] [address] Dr. Luis Virgen Basophils/100 WBC (Bld) 0.3 % Normal 0.2-2.0 [facility] Comment on above: Performed By: #### C BC #### [facility] [address] [place] [address] Dr. Luis Virgen EO # 0.0 103/ul Normal 0.0-0.7 [facility] Comment on above: Performed By: #### C BC #### [facility] [address] [place] [address] Dr. Luis Virgen Eosinophils/100 WBC (Bld) 0.3 % Critically low 0.9-7.0 [facility] Comment on above: Performed By: #### C BC #### [facility] [address] [place] [address] Dr. Luis Virgen Erythrocyte distribution width (RBC) [Ratio] 12.6 % Normal 11.0-15.0 [facility] Comment on above: Performed By: #### C BC #### [facility] [address] [place] [address] Dr. Luis Virgen Hematocrit (Bld) [Volume fraction] 41.5 % Normal 36.0-48.0 [facility] Comment on above: Performed By: #### C BC #### [facility] [address] [place] [address] Dr. Luis Virgen Hemoglobin (Bld) [Mass/Vol] 13.5 g/dL Normal 12.0-16.0 [facility] Comment on above: Performed By: #### C BC #### [facility] [address] [place] [address] Dr. Luis Virgen IG # 0.03 10e3/ul Normal 0.00-0.03 [facility] Comment on above: Performed By: #### C BC #### [facility] [address] [place] [address] Dr. Luis Virgen IG % 0.4 % Normal 0.0-0.5 [facility] Comment on above: Performed By: #### C BC #### [facility] [address] [place] [address] Dr. Luis Virgen LYMPH # 2.4 103/ul Normal 1.2-3.8 [facility] Comment on above: Performed By: #### C BC #### [facility] [address] [place] [address] Dr. Luis Virgen Lymphocytes/100 WBC (Bld) 31.8 % Normal 20.5-60.0 [facility] Comment on above: Performed By: #### C BC #### [facility] [address] [place] [address] Dr. Luis Virgen MANUAL DIFF REQ NO Normal [facility] Comment on above: Performed By: #### C BC #### [facility] [address] [place] [address] Dr. Luis Virgen MCH (RBC) [Entitic mass] 30.5 pg Normal 26.7-34.0 [facility] Comment on above: Performed By: #### C BC #### [facility] [address] [place] [address] Dr. Luis Virgen MCHC (RBC) [Mass/Vol] 32.5 g/dL Normal 29.9-35.2 [facility] Comment on above: Performed By: #### C BC #### [facility] [address] [id number] [address] Luis Virgen MCV (RBC) [Entitic vol] 93.9 fL Normal 81.0-99.0 [facility] Comment on above: Performed By: #### C BC #### [facility] [address] [address] [address] Luis Virgen MONO # 0.6 103/ul Normal 0.3-0.8 [facility] Comment on above: Performed By: #### C BC #### [facility] [address] [address] [address] Luis Virgen Monocytes/100 WBC (Bld) 7.4 % Normal 1.7-12.0 [facility] Comment on above: Performed By: #### C BC #### [facility] [address] [place] [address] Dr. Luis Virgen NEUT # 4.5 103/ul Normal 1.4-6.5 [facility] Comment on above: Performed By: #### C BC #### [facility] [address] [place] [address] Dr. Luis Virgen Neutrophils/100 WBC (Bld) 59.8 % Normal 43.0-75.0 [facility] Comment on above: Performed By: #### C BC #### [facility] [address] [place] [address] Dr. Luis Virgen Platelet mean volume (Bld) [Entitic vol] 10.0 fL Normal 9.5-13.5 [facility] Comment on above: Performed By: #### C BC #### [facility] [address] [place] [address] Dr. Luis Virgen PLT 337 103/ul Normal 150-450 [facility] Comment on above: Performed By: #### C BC #### [facility] [address] [place] [address] Dr. Luis Virgen RBC 4.42 106/ul Normal 4.20-5.40 [facility] Comment on above: Performed By: #### C BC #### [facility] [address] [place], [place] [id number] Dr. Luis Virgen WBC 7.6 103/ul Normal 4.0-11.0 [facility] Comment on above: Performed By: #### C BC #### [facility] [address] [place] [address] Dr. Luis Virgen FREE T4on 08-06-2021 Free T4 [Mass/Vol] 0.91 ng/dL Normal 0.76-1.46 [facility] Comment on above: Performed By: #### F T4 #### [facility] [address] [place] [address] Dr. Luis Virgen LIPID PROFILEon 08-06-2021 CHOL-HDL RATIO NORM SEE BELOW Normal [facility] Comment on above: Result Comment: 3.3 - 4.4 LOW RISK 4.4 - 7.1 AVERAGE RISK 7.1 - 11.0 MODERATE RISK >11.0 HIGH RISK Performed By: #### C MP, TSH, LIPID #### [facility] [address] [place] [address] Dr. Luis Virgen Cholesterol [Mass/Vol] 154 mg/dL Normal <=200 [facility] Comment on above: Performed By: #### C MP, TSH, LIPID #### [facility] [address] [place] [address] Dr. Luis Virgen Cholesterol in HDL [Mass/Vol] 35 mg/dL Critically low 40-60 [facility] Comment on above: Performed By: #### C MP, TSH, LIPID #### [facility] [address] [place] [address] Dr. Luis Virgen Cholesterol in LDL [Mass/Vol] 80.8 mg/dL Normal [facility] Comment on above: Performed By: #### C MP, TSH, LIPID #### [facility] [address] [place] [address] Dr. Luis Virgen Cholesterol.total/ Cholesterol in HDL [Mass ratio] 4.4 {ratio} Normal [facility] Comment on above: Performed By: #### C MP, TSH, LIPID #### [facility] [address] [place] [address] Dr. Luis iVrgen HDL NORMAL > or = 60 mg/dl - LO W CARDIOVASCULAR RISK <40 mg/dl - HIGH CARDIOVASCULAR RISK Normal [facility] Comment on above: Performed By: #### C MP, TSH, LIPID #### [facility] [address] [address] [address] Luis Virgen LDL CALC NORMAL SEE BELOW Normal [facility] Comment on above: Result Comment: <100 mg/dl OPTIMAL 100 - 129 mg/dl NEAR OR ABOVE OPTIMAL 130 - 159 mg/dl BORDERLINE HIGH 160 - 189 mg/dl HIGH >190 mg/dl VERY HIGH Performed By: #### C MP, TSH, LIPID #### [facility] [address] [address] [address] Luis Virgen Triglyceride [Mass/Vol] 191 mg/dL Critically high <=150 [facility] Comment on above: Performed By: #### C MP, TSH, LIPID #### [facility] [address] [address] [address] Luis Virgen VLDL CALC 38.2 mg/dL Normal [facility] Comment on above: Performed By: #### C MP, TSH, LIPID #### [facility] [address] [address] [address] Luis Virgen PROF 14(COMP METB)on 022 Albumin [Mass/Vol] 4.1 g/dL Normal 3.4-5.0 [facility] Comment on above: Performed By: #### C MP, TSH, LIPID #### [facility] [address] [address] [address] Luis Virgen Albumin/Globulin [Mass ratio] 1.2 {ratio} Normal [facility] Comment on above: Performed By: #### C MP, TSH, LIPID #### [facility] [address] [address] [address] Luis Virgen ALP [Catalytic activity/Vol] 73 U/L Normal 46-116 [facility] Comment on above: Performed By: #### C MP, TSH, LIPID #### [facility] [address] [address] [address] Luis Virgen ALT [Catalytic activity/Vol] 24 U/L Normal 14-59 [facility] Comment on above: Performed By: #### C MP, TSH, LIPID #### [facility] [address] [address] [address] Luis Virgen Anion gap [Moles/Vol] 13.2 mmol/L Normal [facility] Comment on above: Performed By: #### C MP, TSH, LIPID #### [facility] [address] [address] [address] Luis Virgen AST [Catalytic activity/Vol] 11 U/L Critically low 15-37 [facility] Comment on above: Performed By: #### C MP, TSH, LIPID #### [facility] [address] [place] [address] Dr. Luis Virgen Bilirubin [Mass/Vol] 0.8 mg/dL Normal 0.2-1.0 [facility] Comment on above: Performed By: #### C MP, TSH, LIPID #### [facility] [address] [place] [address] Dr. Luis Virgen Calcium [Mass/Vol] 8.9 mg/dL Normal 8.5-10.1 [facility] Comment on above: Performed By: #### C MP, TSH, LIPID #### [facility] [address] [place] [address] Dr. Luis Virgen Chloride [Moles/Vol] 103 mmol/L Normal 98-107 [facility] Comment on above: Performed By: #### C MP, TSH, LIPID #### [facility] [address] [place] [address] Dr. Luis Virgen CO2 [Moles/Vol] 27.5 mmol/L Normal 21.0-32.0 [facility] Comment on above: Performed By: #### C MP, TSH, LIPID #### [facility] [address] [place] [address] Dr. Luis Virgen Creatinine [Mass/Vol] 0.71 mg/dL Normal 0.55-1.02 [facility] Comment on above: Performed By: #### C MP, TSH, LIPID #### [facility] [address] [place] [address] Dr. Luis Virgen EGFR-AF MOLDOVAN >60 Normal >=60 [facility] Comment on above: Performed By: #### C MP, TSH, LIPID #### [facility] [address] [place] [address] Dr. Luis Virgen EGFR-NON AF MOLDOVAN >60 Normal >=60 [facility] Comment on above: Performed By: #### C MP, TSH, LIPID #### [facility] [address] [place] [address] Dr. Luis Virgen Globulin (S) [Mass/Vol] 3.5 g/dL Normal [facility] Comment on above: Performed By: #### C MP, TSH, LIPID #### [facility] [address] [place] [address] Dr. Luis Virgen Glucose [Mass/Vol] 101 mg/dL Normal 74-106 [facility] Comment on above: Performed By: #### C MP, TSH, LIPID #### [facility] [address] [place] [address] Dr. Luis Virgen Potassium [Moles/Vol] 4.7 mmol/L Normal 3.5-5.1 [facility] Comment on above: Performed By: #### C MP, TSH, LIPID #### [facility] [address] [place] [address] Dr. Luis Virgen Protein [Mass/Vol] 7.6 g/dL Normal 6.4-8.2 [facility] Comment on above: Performed By: #### C MP, TSH, LIPID #### [facility] [address] [place] [address] Dr. Luis Virgen Sodium [Moles/Vol] 139 mmol/L Normal 136-145 [facility] Comment on above: Performed By: #### C MP, TSH, LIPID #### [facility] [address] [place] [address] Dr. Luis Virgen Urea nitrogen [Mass/Vol] 9.0 mg/dL Normal 7.0-18.0 [facility] Comment on above: Performed By: #### C MP, TSH, LIPID #### [facility] [address] [place] [address] Dr. Luis Virgen Urea nitrogen/Creatinin e [Mass ratio] 12.7 mg/mg Normal [facility] Comment on above: Performed By: #### C MP, TSH, LIPID #### [facility] [address] [place], [place] [address] Dr. Luis Virgen TSHon 08-06-2021 TSH 0.924 uIU/mL Normal 0.358-3.740 [facility] Comment on above: Performed By: #### C MP, TSH, LIPID #### [facility] [address] [place], [place] [address] Dr. Luis Virgen TSH RANGE SEE BELOW Normal [facility] Comment on above: Result Comment: <0.3 4 UIU/ml HYPERTHYROID 0.34-5.60 UIU/ml EUTHYROID >5.60 UIU/ml HYPOTHYROID Performed By: #### C MP, TSH, LIPID #### [facility] [address] [address] [address] Luis Virgen Encounters Encounter Date Encounter Type Care Provider Facility Start: 05-26-2023 End: 05-26-2023 ambulatory SCARLETT MILLAN Not Available Start: 02-20-2022 End: 02-20-2022 ambulatory MARLYN MILLAN Facility:[facility] Start: 11-06-2021 End: 11-06-[address] ORLIN ESCOBAR Facility:[facility] Start: 08-20-2021 End: 08-20-2021 ambulatory MARLYN MILLAN Facility:[facility] Start: 08-06-2021 End: 08-07-2021 ambulatory MARLYN MILLAN Facility:[facility] Payers Date Payer Category Payer Unknown [id number] 2.16.84 [id number] 1990 Unknown [id number] 2.16.84 [id number] 1988 Unknown [id number] 2.16.84 [id number] 1988 Unknown [id number] 2.16.84 [id number] 1988 Unknown [id number] 2.16.84 [id number] 1959 Unknown [id number] Summary Purpose Family History No Family History Records FoundNo Family History Records Found Advance Directives No Advanced Directives Records FoundNo Advanced Directives Records Found Additional Source Comments INFORMATION SOURCE (unrecogn ized section and content) DATE CREATED AUTHOR 02/22/2022 [facility] DATE CREATED AUTHOR AUTHOR'S ORGANIZ ATJEANNIE 05/27/2023 [facility] FOR RECORDS PERTAINING TO PATIENTS WHO ARE OR HAVE BEEN ENROLLED IN A CHEMICAL DEPENDENCY/SUBSTANCEABUSE PROGRAM, SOME INFORMATION MAY BE OMITTED. This clinical summary was aggregated from multiple sources. Caution should be exercised in using it in the provision of clinical care. This summary normalizes information from multiple sources, and as a consequence, information in this document may materially change the coding, format and clinical context of patient data. In addition, data may be omitted in some cases. CLINICAL DECISIONS SHOULD BE BASED ON THE PRIMARY CLINICAL RECORDS. [facility] [employer] provides no warranty or guarantee of the accuracy or completeness of information in this document.
--- NOTE | 2023-06-13 09:57 | US_ITS ---
[address] [address] Patient Name: ROXANNE ROGERS MRN: [id number] date: 1990 Sex: F Assigned Patient Location: [facility] Current Patient Location: [facility] Accession/Order Number: [id number] Exam Date: 06/13/2023 09:58 Report Date: 06/13/2023 11:13 At the request of: ORLIN ESCOBAR Procedure: US OB transvaginal EXAMINATION: US OB transvaginal HISTORY: MISSED MENSES COMPARISON: No relevant comparison available. FINDINGS: GESTATIONAL SAC: Present YOLK SAC: Present POLE: Suspected CARDIAC: Absent UTERUS: Normal size and appearance. OVARIES: Right: Normal. Left: Corpus lutein cyst. CERVIX: 3.6 cm in length and closed. CUL-DE-SAC: Normal. OTHER: None. AGE BY LMP: 8 weeks 5 days BELL BY LMP: 01/18/2024 AGE BY US SAC SIZE: 6 weeks 0 days BELL BY US SAC SIZE: 02/06/2024 US/US OB transvaginal IMPRESSION: 1. Intrauterine with suspected small pole. Blighted ovum cannot be completely excluded. Follow-up recommended. Electronically authenticated by: OMAR QURESHI Date: 06/13/2023 11:13
== END 2023-06-13 09:32 | disposition home or self-care (01) ==
LOC: NOMS 09:32
PROVIDERS: PCP Nurse Practitioner; Visit Provider Obstetrics & Gynecology
DX: Z34.91 Encounter for supervision of normal pregnancy, unspecified, first trimester (principal); Z3A.08 8 weeks gestation of pregnancy
CPT/HCPCS: 76817

== ENCOUNTER 2023-06-13 10:37 | Outpatient (OUT) | payer OTHER, SELFPAY ==
[2023-06-13 12:03] LABS: HCG Quantitative 40171 mIU/mL
== END 2023-06-13 10:38 | disposition home or self-care (01) ==
LOC: LAB 10:38
PROVIDERS: PCP Nurse Practitioner; Visit Provider Obstetrics & Gynecology
DX: Z34.91 Encounter for supervision of normal pregnancy, unspecified, first trimester (principal); Z3A.08 8 weeks gestation of pregnancy
CPT/HCPCS: 36415; 76817; 84702

== ENCOUNTER 2023-06-16 08:02 | Outpatient (OUT) | payer OTHER, SELFPAY ==
--- OUTSIDE RECORDS SUMMARY | 2023-06-16 08:21 | XMS_ITS | CCD ---
Author Organization [facility] Care Team Providers Care Health Information Management Director Name Role Phone AICHHOLZ, SYSTEM SPECIALIST SCARLETT Primary Care Unavailable PAY, DR LIN Admitting Unavailable PAY, DR LIN Attending Unavailable GRECHNY, GISELLE ROBERTSON Consulting Unavailable LUZ, DR ORDAZ Admitting Unavailable LUZ, DR ORDAZ Attending Unavailable AICHHOLZ, SYSTEM SPECIALIST SCARLETT Primary Care Unavailable LUZ, DR ORDAZ Consulting Unavailable AICHHOLZ, SYSTEM SPECIALIST SCARLETT Admitting Unavailable AICHHOLZ, SYSTEM SPECIALIST SCARLETT Attending Unavailable AICHHOLZ, SYSTEM SPECIALIST SCARLETT Primary Care Unavailable AICHHOLZ, SYSTEM SPECIALIST SCARLETT Consulting Unavailable AICHHOLZ, SYSTEM SPECIALIST SCARLETT Primary Care Unavailable DON, DR BIRD Admitting Unavailable DON, DR BIRD Attending Unavailable LAURO, GISELLE ROBERTSON Consulting Unavailable ALFAROPHOEBE Consulting Unavailable AICHHOLZ, SCARLETT Attending Unavailable Problems Active Problems Problem Classification Problem Date Documented Da te Episodic/Chronic Influenza (1 source) Influenza due to other identified influenza virus with other respiratory manifestations; Translations: [FLU D/T OTH ID FLU VIR OTH RSP MANF] Onset: 02-22-2022 Episodic Other aftercare (1 source) 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 When there are no FDA-approved or cleared tests available, and other criteria are met, FDA can make tests available under an emergency access mechanism called an Emergency Use Authorization (EUA). The EUA for this test is supported by the Safety And Occupational Health Manager of Health and Human Service's (HHS's) declaration [...] SARS-CoV-2. Performed By: #### C VDTB #### [facility] [address] [place] [address] Dr. Luis Virgen INFLUENZA A AND B [facility] 02-20 INFLUBNEG SEE BELOW Normal [facility] Comment on above: Result Comment: Nega tive for Flu B protein antigen. Infection due to Flu B cannot be ruled out. Flu B antigen in the sample may be below the detection limit of the test. Performed By: #### I NFLUAB #### [facility] [address] [place] [address] Dr. Luis Virgen INFLUENZA A AG Positive Abnormal NEGATIVE SEE COMMENT [facility] Comment on above: Performed By: #### I NFLUAB #### [facility] [address] [place] [address] Dr. Luis Virgen INFLUENZA B AG Negative Normal NEGATIVE SEE COMMENT [facility] Comment on above: Performed By: #### I NFLUAB #### [facility] [address] [place] [address] Dr. Luis Virgen XR CHEST 1 Von 02-20-2022 XR CHEST 1 V EXAM: CHEST 1 VIEW HISTORY: COUGH TECHNIQUE: Chest, one view. COMPARISON: None. FINDINGS: Lungs are clear. No focal consolidation, pleural effusion, or pneumothorax. Pulmonary vasculature is within normal limits. Cardiomediastinal silhouette is normal. IMPRESSION: 1. No acute cardiopulmonary disease. Electronically authenticated by: PHOEBE ALFARO Date: 2022-02-20 17:46 Normal [facility] PAP ACOG PANEL 2: 30 to 65on 11-13-2021 . . Normal [facility] Comment on above: Result Comment: Perf ormed at: WB Performed By: #### [id number] #### [facility] [address] [place] [address] Dr. Luis Virgen Age Gdln ACOG Testing 30-65 Normal [facility] Comment on above: Performed By: #### [id number] #### [facility] [address] [place] [address] Dr. Luis Virgen DIAGNOSIS: Comment Normal [facility] Comment on above: Result Comment: NEGA TIVE FOR INTRAEPITHELIAL LESION OR MALIGNANCY. Performed at: WB Performed By: #### [id number] #### [facility] [address] [place] [address] Dr. Luis Virgen HPV Aptima Negative Normal Negative [facility] Comment on above: Result Comment: This nucleic acid amplification test detects fourteen high-risk HPV types (16,18,31,33,35,39,45,51,52,56,58,59,66,68) without differentiation. Performed at: =G Performed By: #### [id number] #### [facility] [address] [place] [address] Dr. Luis Virgen Methodology: Comment Normal [facility] Comment on above: Result Comment: This liquid based ThinPrep(R) pap test was screened with the use of an image guided system. Performed at: WB Performed By: #### [id number] #### [facility] [address] [place] [address] Dr. Luis Virgen Note: Comment Normal [facility] Comment on above: Result Comment: The Pap smear is a screening test designed to aid in the detection of premalignant and malignant conditions of the uterine cervix. It is not a diagnostic procedure and should not be used as the sole means of detecting cervical cancer. Both false-positive and false-negative reports do occur. . Performed at: WB Performed By: #### [id number] #### [facility] [address] [place] [address] Dr. Luis Virgen Performed by: Comment Normal [facility] Comment on above: Result Comment: Maureen Del Cid, Account Services Analyst (ASCP) Performed at: WB Performed By: #### [id number] #### [facility] [address] [place] [address] Dr. Luis Virgen Specimen adequacy: Comment Normal [facility] Comment on above: Result Comment: Sati sfactory for evaluation. Endocervical and/or squamous metaplastic cells (endocervical component) are present. Performed at: WB Performed By: #### [id number] #### [facility] [address] [place] [address] Dr. Luis Virgen URon 08-20-2021 , QUAL Negative Normal NEGATIVE [facility] Comment on above: Performed By: #### P REGU #### [facility] [address] [place] [address] Dr. Luis Virgen CBC AUTO DIFFon 08-06-2021 BASO # 0.0 103/ul Normal 0.0-0.1 [facility] Comment on above: Performed By: #### C BC #### [facility] [address] [place] [address] Dr. Luis Virgen Basophils/100 WBC (Bld) 0.3 % Normal 0.2-2.0 [facility] Comment on above: Performed By: #### C BC #### [facility] [address] [place] [address] Dr. Luis Virgen EO # 0.0 103/ul Normal 0.0-0.7 [facility] Comment on above: Performed By: #### C BC #### [facility] [address] [place] [address] Dr. Luis Virgen Eosinophils/100 WBC (Bld) 0.3 % Critically low 0.9-7.0 [facility] Comment on above: Performed By: #### C BC #### [facility] [address] [place] [address] Dr. Luis Virgen Erythrocyte distribution width (RBC) [Ratio] 12.6 % Normal 11.0-15.0 [facility] Comment on above: Performed By: #### C BC #### [facility] [address] [place] [address] Dr. Luis Virgen Hematocrit (Bld) [Volume fraction] 41.5 % Normal 36.0-48.0 [facility] Comment on above: Performed By: #### C BC #### [facility] [address] [place] [address] Dr. Luis Virgen Hemoglobin (Bld) [Mass/Vol] 13.5 g/dL Normal 12.0-16.0 [facility] Comment on above: Performed By: #### C BC #### [facility] [address] [place] [address] Dr. Luis Virgen IG # 0.03 10e3/ul Normal 0.00-0.03 [facility] Comment on above: Performed By: #### C BC #### [facility] [address] [place] [address] Dr. Luis Virgen IG % 0.4 % Normal 0.0-0.5 [facility] Comment on above: Performed By: #### C BC #### [facility] [address] [place] [address] Dr. Luis Virgen LYMPH # 2.4 103/ul Normal 1.2-3.8 [facility] Comment on above: Performed By: #### C BC #### [facility] [address] [place] [address] Dr. Luis Virgen Lymphocytes/100 WBC (Bld) 31.8 % Normal 20.5-60.0 [facility] Comment on above: Performed By: #### C BC #### [facility] [address] [place] [address] Dr. Luis Virgen MANUAL DIFF REQ NO Normal [facility] Comment on above: Performed By: #### C BC #### [facility] [address] [place] [address] Dr. Luis Virgen MCH (RBC) [Entitic mass] 30.5 pg Normal 26.7-34.0 [facility] Comment on above: Performed By: #### C BC #### [facility] [address] [place] [address] Dr. Luis Virgen MCHC (RBC) [Mass/Vol] 32.5 g/dL Normal 29.9-35.2 [facility] Comment on above: Performed By: #### C BC #### [facility] [id number] Luis Virgen MCV (RBC) [Entitic vol] 93.9 fL Normal 81.0-99.0 [facility] Comment on above: Performed By: #### C BC #### [facility] [address] [address] [address] Luis Virgen MONO # 0.6 103/ul Normal 0.3-0.8 [facility] Comment on above: Performed By: #### C BC #### [facility] [address] [address] [address] Luis Virgen Monocytes/100 WBC (Bld) 7.4 % Normal 1.7-12.0 [facility] Comment on above: Performed By: #### C BC #### [facility] [address] [place] [address] Dr. Luis Virgen NEUT # 4.5 103/ul Normal 1.4-6.5 [facility] Comment on above: Performed By: #### C BC #### [facility] [address] [place] [address] Dr. Luis Virgen Neutrophils/100 WBC (Bld) 59.8 % Normal 43.0-75.0 [facility] Comment on above: Performed By: #### C BC #### [facility] [address] [place] [address] Dr. Luis Virgen Platelet mean volume (Bld) [Entitic vol] 10.0 fL Normal 9.5-13.5 [facility] Comment on above: Performed By: #### C BC #### [facility] [address] [place] [address] Dr. Luis Virgen PLT 337 103/ul Normal 150-450 [facility] Comment on above: Performed By: #### C BC #### [facility] [address] [place] [address] Dr. Lusi Virgen RBC 4.42 106/ul Normal 4.20-5.40 [facility] Comment on above: Performed By: #### C BC #### [facility] [address] [place], [place] [id number] Dr. Luis Virgen WBC 7.6 103/ul Normal 4.0-11.0 [facility] Comment on above: Performed By: #### C BC #### [facility] [address] [place] [address] Dr. Luis Virgen FREE T4on 08-06-2021 Free T4 [Mass/Vol] 0.91 ng/dL Normal 0.76-1.46 [facility] Comment on above: Performed By: #### F T4 #### [facility] [address] [place] [address] Dr. Luis Virgen LIPID PROFILEon 08-06-2021 CHOL-HDL RATIO NORM SEE BELOW Normal [facility] Comment on above: Result Comment: 3.3 - 4.4 LOW RISK 4.4 - 7.1 AVERAGE RISK 7.1 - 11.0 MODERATE RISK >11.0 HIGH RISK Performed By: #### C MP, TSH, LIPID #### [facility] [address] [place] [address] Dr. Luis Virgen Cholesterol [Mass/Vol] 154 mg/dL Normal <=200 [facility] Comment on above: Performed By: #### C MP, TSH, LIPID #### [facility] [address] [place] [address] Dr. Luis Virgen Cholesterol in HDL [Mass/Vol] 35 mg/dL Critically low 40-60 [facility] Comment on above: Performed By: #### C MP, TSH, LIPID #### [facility] [address] [place] [address] Dr. Luis Virgen Cholesterol in LDL [Mass/Vol] 80.8 mg/dL Normal [facility] Comment on above: Performed By: #### C MP, TSH, LIPID #### [facility] [address] [place] [address] Dr. Luis Virgen Cholesterol.total/ Cholesterol in HDL [Mass ratio] 4.4 {ratio} Normal [facility] Comment on above: Performed By: #### C MP, TSH, LIPID #### [facility] [address] [place] [address] Dr. Luis Virgen HDL NORMAL > or = 60 mg/dl - LO W CARDIOVASCULAR RISK <40 mg/dl - HIGH CARDIOVASCULAR RISK Normal [facility] Comment on above: Performed By: #### C MP, TSH, LIPID #### [facility] [address] [address] [address] Luis Virgen LDL CALC NORMAL SEE BELOW Normal [facility] Comment on above: Result Comment: <100 mg/dl OPTIMAL 100 - 129 mg/dl NEAR OR ABOVE OPTIMAL 130 - 159 mg/dl BORDERLINE HIGH 160 - 189 mg/dl HIGH >190 mg/dl VERY HIGH Performed By: #### C MP, TSH, LIPID #### [facility] [address] [address] [address] uLis Virgen Triglyceride [Mass/Vol] 191 mg/dL Critically high <=150 [facility] Comment on above: Performed By: #### C MP, TSH, LIPID #### [facility] [address] [address] [address] Luis Virgen VLDL CALC 38.2 mg/dL Normal [facility] Comment on above: Performed By: #### C MP, TSH, LIPID #### [facility] [address] [address] [address] Luis Virgen PROF 14(COMP METB)on 022 Albumin [Mass/Vol] 4.1 g/dL Normal 3.4-5.0 [facility] Comment on above: Performed By: #### C MP, TSH, LIPID #### [facility] [address] [address] [address] Luis Virgen Albumin/Globulin [Mass ratio] 1.2 {ratio} Normal [facility] Comment on above: Performed By: #### C MP, TSH, LIPID #### [facility] [address] [address] [address] Luis Virgen ALP [Catalytic activity/Vol] 73 U/L Normal 46-116 [facility] Comment on above: Performed By: #### C MP, TSH, LIPID #### [facility] [address] [address] [address] Luis Virgen ALT [Catalytic activity/Vol] 24 U/L Normal 14-59 [facility] Comment on above: Performed By: #### C MP, TSH, LIPID #### [facility] [address] [address] [address] Luis Virgen Anion gap [Moles/Vol] 13.2 mmol/L Normal [facility] Comment on above: Performed By: #### C MP, TSH, LIPID #### [facility] [address] [address] [address] Luis Virgen AST [Catalytic activity/Vol] 11 U/L Critically low 15-37 [facility] Comment on above: Performed By: #### C MP, TSH, LIPID #### [facility] [address] [place] [address] Dr. Luis Virgen Bilirubin [Mass/Vol] 0.8 mg/dL Normal 0.2-1.0 [facility] Comment on above: Performed By: #### C MP, TSH, LIPID #### [facility] [address] [place] [address] Dr. Luis Virgen Calcium [Mass/Vol] 8.9 mg/dL Normal 8.5-10.1 [facility] Comment on above: Performed By: #### C MP, TSH, LIPID #### [facility] [address] [place] [address] Dr. Luis Virgen Chloride [Moles/Vol] 103 mmol/L Normal 98-107 [facility] Comment on above: Performed By: #### C MP, TSH, LIPID #### [facility] [address] [place] [address] Dr. Luis Virgen CO2 [Moles/Vol] 27.5 mmol/L Normal 21.0-32.0 [facility] Comment on above: Performed By: #### C MP, TSH, LIPID #### [facility] [address] [place] [address] Dr. Luis Virgen Creatinine [Mass/Vol] 0.71 mg/dL Normal 0.55-1.02 [facility] Comment on above: Performed By: #### C MP, TSH, LIPID #### [facility] [address] [place] [address] Dr. Luis Virgen EGFR-AF MACANESE >60 Normal >=60 [facility] Comment on above: Performed By: #### C MP, TSH, LIPID #### [facility] [address] [place] [address] Dr. Luis Virgen EGFR-NON AF MACANESE >60 Normal >=60 [facility] Comment on above: Performed By: #### C MP, TSH, LIPID #### [facility] [address] [place] [address] Dr. Luis Virgen Globulin (S) [Mass/Vol] 3.5 g/dL Normal [facility] Comment on above: Performed By: #### C MP, TSH, LIPID #### [facility] [address] [place] [address] Dr. Luis Virgen Glucose [Mass/Vol] 101 mg/dL Normal 74-106 [facility] Comment on above: Performed By: #### C MP, TSH, LIPID #### [facility] [address] [place] [address] Dr. Luis Virgen Potassium [Moles/Vol] 4.7 mmol/L Normal 3.5-5.1 [facility] Comment on above: Performed By: #### C MP, TSH, LIPID #### [facility] [address] [place] [address] Dr. Luis Virgen Protein [Mass/Vol] 7.6 g/dL Normal 6.4-8.2 [facility] Comment on above: Performed By: #### C MP, TSH, LIPID #### [facility] [address] [place] [address] Dr. Luis Virgen Sodium [Moles/Vol] 139 mmol/L Normal 136-145 [facility] Comment on above: Performed By: #### C MP, TSH, LIPID #### [facility] [address] [place] [address] Dr. Luis Virgen Urea nitrogen [Mass/Vol] 9.0 mg/dL Normal 7.0-18.0 [facility] Comment on above: Performed By: #### C MP, TSH, LIPID #### [facility] [address] [place] [address] Dr. Luis Virgen Urea nitrogen/Creatinin e [Mass ratio] 12.7 mg/mg Normal [facility] Comment on above: Performed By: #### C MP, TSH, LIPID #### [facility] [address] [place], [place] [address] Dr. Luis Virgen TSHon 08-06-2021 TSH 0.924 uIU/mL Normal 0.358-3.740 [facility] Comment on above: Performed By: #### C MP, TSH, LIPID #### [facility] [address] [place], [place] [address] Dr. Luis Virgen TSH RANGE SEE BELOW Normal [facility] Comment on above: Result Comment: <0.3 4 UIU/ml HYPERTHYROID 0.34-5.60 UIU/ml EUTHYROID >5.60 UIU/ml HYPOTHYROID Performed By: #### C MP, TSH, LIPID #### [facility] [address] [address] [address] Luis Virgen Encounters Encounter Date Encounter Type Care Provider Facility Start: 05-26-2023 End: 05-26-2023 ambulatory SCARLETT MILLAN Not Available Start: 02-20-2022 End: 02-20-2022 ambulatory MARLYN MILLAN Facility:[facility] Start: 11-06-2021 End: 11-06-[address] ORLIN ESCOBAR Facility:[facility] Start: 08-20-2021 End: 08-20-2021 ambulatory MARLYN MILLAN Facility:[facility] Start: 08-06-2021 End: 08-07-2021 ambulatory MARLYN MILLAN Facility:[facility] Payers Date Payer Category Payer Unknown [id number] 2.16.84 [id number] 1990 Unknown [id number] 2.16.84 [id number] 1988 Unknown [id number] 2.16.84 [id number] 1988 Unknown [id number] 2.16.84 [id number] 1988 Unknown [id number] 2.16.84 [id number] 1959 Unknown [id number] Summary Purpose Family History No Family History Records FoundNo Family History Records Found Advance Directives No Advanced Directives Records FoundNo Advanced Directives Records Found Additional Source Comments INFORMATION SOURCE (unrecogn ized section and content) DATE CREATED AUTHOR 02/22/2022 [facility] DATE CREATED AUTHOR AUTHOR'S ORGANIZ ATJEANNIE 05/27/2023 [facility] FOR RECORDS PERTAINING TO PATIENTS WHO [...] PRIMARY CLINICAL RECORDS. [facility] [employer] provides no warranty or guarantee of the accuracy or completeness of information in this document.
[2023-06-16 09:39] LABS: HCG Quantitative 35025 mIU/mL
== END 2023-06-16 08:03 | disposition home or self-care (01) ==
LOC: LAB 08:03
PROVIDERS: PCP Nurse Practitioner; Visit Provider Obstetrics & Gynecology
DX: N92.6 Irregular menstruation, unspecified (principal)
CPT/HCPCS: 36415; 84702

== ENCOUNTER 2023-06-20 08:29 | Outpatient (OUT) | payer OTHER, SELFPAY ==
--- NOTE | 2023-06-20 08:31 | US_ITS ---
[address] [address] Patient Name: ROXANNE ROGERS MRN: [id number] date: 1990 Sex: F Assigned Patient Location: [facility] Current Patient Location: [facility] Accession/Order Number: [id number] Exam Date: 06/20/2023 08:31 Report Date: 06/20/2023 12:10 At the request of: ORLIN ESCOBAR Procedure: US OB transvaginal EXAMINATION: US OB transvaginal HISTORY: VIABILITY COMPARISON: 06/13/2023 FINDINGS: Transvaginal images Mka intrauterine gestation Gestational sac: 1.5 cm, 6 weeks 3 days CRL: 2.3 mm, 5 weeks 5 days Yolk sac: 1.4 mm Cardiac activity: Not observed Cervix: Closed, 4 cm. The uterus is normal, anteverted, anteflexed The right ovary is normal measuring 2.5 x 1.3 x 2.3 cm Left ovary is normal measuring 3.0 x 2.2 x 2.6 cm, corpus luteal cyst Clinical age: 9 weeks 5 days Clinical BELL: 01/18/2024 Ultrasound age: 5 weeks 5 days Ultrasound BELL: 02/15/2024 US/US OB transvaginal IMPRESSION: No change in crown-rump length over the course of 7 days. Findings are consistent with miscarriage/ demise Electronically authenticated by: MARE ANDERSON Date: 06/20/2023 12:10
--- OUTSIDE RECORDS SUMMARY | 2023-06-20 08:41 | XMS_ITS | CCD ---
Author Organization [facility] Care Team Providers Care Stator Plate Washer Name Role Phone AICHHOLZ, PAINTER AND DECORATOR SCARLETT Primary Care Unavailable PAY, DR LIN Admitting Unavailable PAY, DR LIN Attending Unavailable GRECHNY, GISELLE ROBERTSON Consulting Unavailable LUZ, DR ORDAZ Admitting Unavailable LUZ, DR ORDAZ Attending Unavailable AICHHOLZ, PAINTER AND DECORATOR SCARLETT Primary Care Unavailable LUZ, DR ORDAZ Consulting Unavailable AICHHOLZ, PAINTER AND DECORATOR SCARLETT Admitting Unavailable AICHHOLZ, PAINTER AND DECORATOR SCARLETT Attending Unavailable AICHHOLZ, PAINTER AND DECORATOR SCARLETT Primary Care Unavailable AICHHOLZ, PAINTER AND DECORATOR SCARLETT Consulting Unavailable AICHHOLZ, PAINTER AND DECORATOR SCARLETT Primary Care Unavailable DON, DR BIRD [...] Onset: 02-22-2022 Episodic Other aftercare (1 source) 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 When there are no FDA-approved or cleared tests available, and other criteria are met, FDA can make tests available under an emergency access mechanism called an Emergency Use Authorization (EUA). The EUA for this test is supported by the Member Service Specialist of Health and Human Service's (HHS's) declaration [...] SARS-CoV-2. Performed By: #### C VDTB #### [facility] [address] [place] [address] Dr. Luis Virgen INFLUENZA A AND B [facility] 02-20 INFLUBNEG SEE BELOW Normal [facility] Comment on above: Result Comment: Nega tive for Flu B protein antigen. Infection due to Flu B cannot be ruled out. Flu B antigen in the sample may be below the detection limit of the test. Performed By: #### I NFLUAB #### [facility] [address] [place] [address] Dr. Luis Virgen INFLUENZA A AG Positive Abnormal NEGATIVE SEE COMMENT [facility] Comment on above: Performed By: #### I NFLUAB #### [facility] [address] [place] [address] Dr. Luis Virgen INFLUENZA B AG Negative Normal NEGATIVE SEE COMMENT [facility] Comment on above: Performed By: #### I NFLUAB #### [facility] [address] [place] [address] Dr. Luis Virgen XR CHEST 1 Von 02-20-2022 XR CHEST 1 V EXAM: CHEST 1 VIEW HISTORY: COUGH TECHNIQUE: Chest, one view. COMPARISON: None. FINDINGS: Lungs are clear. No focal consolidation, pleural effusion, or pneumothorax. Pulmonary vasculature is within normal limits. Cardiomediastinal silhouette is normal. IMPRESSION: 1. No acute cardiopulmonary disease. Electronically authenticated by: PHOEBE ALFARO Date: 2022-02-20 17:46 Normal [facility] PAP ACOG PANEL 2: 30 to 65on 11-13-2021 . . Normal [facility] Comment on above: Result Comment: Perf ormed at: WB Performed By: #### [id number] #### [facility] [address] [place] [address] Dr. Luis Virgen Age Gdln ACOG Testing 30-65 Normal [facility] Comment on above: Performed By: #### [id number] #### [facility] [address] [place] [address] Dr. Luis Virgen DIAGNOSIS: Comment Normal [facility] Comment on above: Result Comment: NEGA TIVE FOR INTRAEPITHELIAL LESION OR MALIGNANCY. Performed at: WB Performed By: #### [id number] #### [facility] [address] [place] [address] Dr. Luis Virgen HPV Aptima Negative Normal Negative [facility] Comment on above: Result Comment: This nucleic acid amplification test detects fourteen high-risk HPV types (16,18,31,33,35,39,45,51,52,56,58,59,66,68) without differentiation. Performed at: =G Performed By: #### [id number] #### [facility] [address] [place] [address] Dr. Luis Virgen Methodology: Comment Normal [facility] Comment on above: Result Comment: This liquid based ThinPrep(R) pap test was screened with the use of an image guided system. Performed at: WB Performed By: #### [id number] #### [facility] [address] [place] [address] Dr. Luis Virgen Note: Comment Normal [facility] Comment on above: Result Comment: The Pap smear is a screening test designed to aid in the detection of premalignant and malignant conditions of the uterine cervix. It is not a diagnostic procedure and should not be used as the sole means of detecting cervical cancer. Both false-positive and false-negative reports do occur. . Performed at: WB Performed By: #### [id number] #### [facility] [address] [place] [address] Dr. Luis Virgen Performed by: Comment Normal [facility] Comment on above: Result Comment: Maureen Del Cid, Audit Officer (ASCP) Performed at: WB Performed By: #### [id number] #### [facility] [address] [place] [address] Dr. Luis Virgen Specimen adequacy: Comment Normal [facility] Comment on above: Result Comment: Sati sfactory for evaluation. Endocervical and/or squamous metaplastic cells (endocervical component) are present. Performed at: WB Performed By: #### 4 [id number] #### [facility] [address] [place] [address] Dr. Luis Virgen URon 08-20-2021 , QUAL Negative Normal NEGATIVE [facility] Comment on above: Performed By: #### P REGU #### [facility] [address] [place] [address] Dr. Luis Virgen CBC AUTO DIFFon 08-06-2021 BASO # 0.0 103/ul Normal 0.0-0.1 [facility] Comment on above: Performed By: #### C BC #### [facility] [address] [place] [address] Dr. Luis Virgen Basophils/100 WBC (Bld) 0.3 % Normal 0.2-2.0 [facility] Comment on above: Performed By: #### C BC #### [facility] [address] [place] [address] Dr. Luis Virgen EO # 0.0 103/ul Normal 0.0-0.7 [facility] Comment on above: Performed By: #### C BC #### [facility] [address] [place] [address] Dr. Luis Virgen Eosinophils/100 WBC (Bld) 0.3 % Critically low 0.9-7.0 [facility] Comment on above: Performed By: #### C BC #### [facility] [address] [place] [address] Dr. Luis Virgen Erythrocyte distribution width (RBC) [Ratio] 12.6 % Normal 11.0-15.0 [facility] Comment on above: Performed By: #### C BC #### [facility] [address] [place] [address] Dr. Luis Virgen Hematocrit (Bld) [Volume fraction] 41.5 % Normal 36.0-48.0 [facility] Comment on above: Performed By: #### C BC #### [facility] [address] [place] [address] Dr. Luis Virgen Hemoglobin (Bld) [Mass/Vol] 13.5 g/dL Normal 12.0-16.0 [facility] Comment on above: Performed By: #### C BC #### [facility] [address] [place] [address] Dr. Luis Virgen IG # 0.03 10e3/ul Normal 0.00-0.03 [facility] Comment on above: Performed By: #### C BC #### [facility] [address] [place] [address] Dr. Luis Virgen IG % 0.4 % Normal 0.0-0.5 [facility] Comment on above: Performed By: #### C BC #### [facility] [address] [place] [address] Dr. Luis Virgen LYMPH # 2.4 103/ul Normal 1.2-3.8 [facility] Comment on above: Performed By: #### C BC #### [facility] [address] [place] [address] Dr. Luis Virgen Lymphocytes/100 WBC (Bld) 31.8 % Normal 20.5-60.0 [facility] Comment on above: Performed By: #### C BC #### [facility] [address] [place] [address] Dr. Luis Virgen MANUAL DIFF REQ NO Normal [facility] Comment on above: Performed By: #### C BC #### [facility] [address] [place] [address] Dr. Luis Vrigen MCH (RBC) [Entitic mass] 30.5 pg Normal 26.7-34.0 [facility] Comment on above: Performed By: #### C BC #### [facility] [address] [place] [address] Dr. Luis Virgen MCHC (RBC) [Mass/Vol] 32.5 g/dL Normal 29.9-35.2 [facility] Comment on above: Performed By: #### C BC #### [facility] [address] [id number] [address] Luis Virgen MCV (RBC) [Entitic vol] 93.9 fL Normal 81.0-99.0 [facility] Comment on above: Performed By: #### C BC #### [facility] [address] [address] [address] Luis Virgen MONO # 0.6 103/ul Normal 0.3-0.8 [facility] Comment on above: Performed By: #### C BC #### [facility] [address] [address] [address] Luis Virgen Monocytes/100 WBC (Bld) 7.4 % Normal 1.7-12.0 [facility] Comment on above: Performed By: #### C BC #### [facility] [address] [place] [address] Dr. Luis Virgen NEUT # 4.5 103/ul Normal 1.4-6.5 [facility] Comment on above: Performed By: #### C BC #### [facility] [address] [place] [address] Dr. Luis Virgen Neutrophils/100 WBC (Bld) 59.8 % Normal 43.0-75.0 [facility] Comment on above: Performed By: #### C BC #### [facility] [address] [place] [address] Dr. Luis Virgen Platelet mean volume (Bld) [Entitic vol] 10.0 fL Normal 9.5-13.5 [facility] Comment on above: Performed By: #### C BC #### [facility] [address] [place] [address] Dr. Luis Virgen PLT 337 103/ul Normal 150-450 [facility] Comment on above: Performed By: #### C BC #### [facility] [address] [place] [address] Dr. Luis Virgen RBC 4.42 106/ul Normal 4.20-5.40 [facility] Comment on above: Performed By: #### C BC #### [facility] [address] [place], [place] [id number] Dr. Luis Virgen WBC 7.6 103/ul Normal 4.0-11.0 [facility] Comment on above: Performed By: #### C BC #### [facility] [address] [place] [address] Dr. Luis Virgen FREE T4on 08-06-2021 Free T4 [Mass/Vol] 0.91 ng/dL Normal 0.76-1.46 [facility] Comment on above: Performed By: #### F T4 #### [facility] [address] [place] [address] Dr. Luis Virgen LIPID PROFILEon 08-06-2021 CHOL-HDL RATIO NORM SEE BELOW Normal [facility] Comment on above: Result Comment: 3.3 - 4.4 LOW RISK 4.4 - 7.1 AVERAGE RISK 7.1 - 11.0 MODERATE RISK >11.0 HIGH RISK Performed By: #### C MP, TSH, LIPID #### [facility] [address] [place] [address] Dr. Luis Virgen Cholesterol [Mass/Vol] 154 mg/dL Normal <=200 [facility] Comment on above: Performed By: #### C MP, TSH, LIPID #### [facility] [address] [place] [address] Dr. Luis Virgen Cholesterol in HDL [Mass/Vol] 35 mg/dL Critically low 40-60 [facility] Comment on above: Performed By: #### C MP, TSH, LIPID #### [facility] [address] [place] [address] Dr. Luis Virgen Cholesterol in LDL [Mass/Vol] 80.8 mg/dL Normal [facility] Comment on above: Performed By: #### C MP, TSH, LIPID #### [facility] [address] [place] [address] Dr. Luis Virgen Cholesterol.total/ Cholesterol in HDL [Mass ratio] 4.4 {ratio} Normal [facility] Comment on above: Performed By: #### C MP, TSH, LIPID #### [facility] [address] [place] [address] Dr. Luis Virgen HDL NORMAL > or = 60 mg/dl - LO W CARDIOVASCULAR RISK <40 mg/dl - HIGH CARDIOVASCULAR RISK Normal [facility] Comment on above: Performed By: #### C MP, TSH, LIPID #### [facility] [address] [address] [address] Luis Virgen LDL CALC NORMAL SEE BELOW Normal [facility] Comment on above: Result Comment: <100 mg/dl OPTIMAL 100 - 129 mg/dl NEAR OR ABOVE OPTIMAL 130 - 159 mg/dl BORDERLINE HIGH 160 - 189 mg/dl HIGH >190 mg/dl VERY HIGH Performed By: #### C MP, TSH, LIPID #### [facility] [address] [address] [address] uLis Virgen Triglyceride [Mass/Vol] 191 mg/dL Critically high <=150 [facility] Comment on above: Performed By: #### C MP, TSH, LIPID #### [facility] [address] [address] [address] Luis Virgen VLDL CALC 38.2 mg/dL Normal [facility] Comment on above: Performed By: #### C MP, TSH, LIPID #### [facility] [address] [address] [address] Luis Virgen PROF 14(COMP METB)on 022 Albumin [Mass/Vol] 4.1 g/dL Normal 3.4-5.0 [facility] Comment on above: Performed By: #### C MP, TSH, LIPID #### [facility] [address] [address] [address] Luis Virgen Albumin/Globulin [Mass ratio] 1.2 {ratio} Normal [facility] Comment on above: Performed By: #### C MP, TSH, LIPID #### [facility] [address] [address] [address] Luis Virgen ALP [Catalytic activity/Vol] 73 U/L Normal 46-116 [facility] Comment on above: Performed By: #### C MP, TSH, LIPID #### [facility] [address] [address] [address] Luis Virgen ALT [Catalytic activity/Vol] 24 U/L Normal 14-59 [facility] Comment on above: Performed By: #### C MP, TSH, LIPID #### [facility] [address] [address] [address] Luis Virgen Anion gap [Moles/Vol] 13.2 mmol/L Normal [facility] Comment on above: Performed By: #### C MP, TSH, LIPID #### [facility] [address] [address] [address] Luis Virgen AST [Catalytic activity/Vol] 11 U/L Critically low 15-37 [facility] Comment on above: Performed By: #### C MP, TSH, LIPID #### [facility] [address] [place] [address] Dr. Luis Virgen Bilirubin [Mass/Vol] 0.8 mg/dL Normal 0.2-1.0 [facility] Comment on above: Performed By: #### C MP, TSH, LIPID #### [facility] [address] [place] [address] Dr. Luis Virgen Calcium [Mass/Vol] 8.9 mg/dL Normal 8.5-10.1 [facility] Comment on above: Performed By: #### C MP, TSH, LIPID #### [facility] [address] [place] [address] Dr. Luis Virgen Chloride [Moles/Vol] 103 mmol/L Normal 98-107 [facility] Comment on above: Performed By: #### C MP, TSH, LIPID #### [facility] [address] [place] [address] Dr. Luis Virgen CO2 [Moles/Vol] 27.5 mmol/L Normal 21.0-32.0 [facility] Comment on above: Performed By: #### C MP, TSH, LIPID #### [facility] [address] [place] [address] Dr. Luis Virgen Creatinine [Mass/Vol] 0.71 mg/dL Normal 0.55-1.02 [facility] Comment on above: Performed By: #### C MP, TSH, LIPID #### [facility] [address] [place] [address] Dr. Luis Virgen EGFR-AF MAURITANIAN >60 Normal >=60 [facility] Comment on above: Performed By: #### C MP, TSH, LIPID #### [facility] [address] [place] [address] Dr. Luis Virgen EGFR-NON AF MAURITANIAN >60 Normal >=60 [facility] Comment on above: Performed By: #### C MP, TSH, LIPID #### [facility] [address] [place] [address] Dr. Luis Viregn Globulin (S) [Mass/Vol] 3.5 g/dL Normal [facility] Comment on above: Performed By: #### C MP, TSH, LIPID #### [facility] [address] [place] [address] Dr. Luis Virgen Glucose [Mass/Vol] 101 mg/dL Normal 74-106 [facility] Comment on above: Performed By: #### C MP, TSH, LIPID #### [facility] [address] [place] [address] Dr. Luis Virgen Potassium [Moles/Vol] 4.7 mmol/L Normal 3.5-5.1 [facility] Comment on above: Performed By: #### C MP, TSH, LIPID #### [facility] [address] [place] [address] Dr. Luis Virgen Protein [Mass/Vol] 7.6 g/dL Normal 6.4-8.2 [facility] Comment on above: Performed By: #### C MP, TSH, LIPID #### [facility] [address] [place] [address] Dr. Luis Virgen Sodium [Moles/Vol] 139 mmol/L Normal 136-145 [facility] Comment on above: Performed By: #### C MP, TSH, LIPID #### [facility] [address] [place] [address] Dr. Luis Virgen Urea nitrogen [Mass/Vol] 9.0 mg/dL Normal 7.0-18.0 [facility] Comment on above: Performed By: #### C MP, TSH, LIPID #### [facility] [address] [place] [address] Dr. Lius Virgen Urea nitrogen/Creatinin e [Mass ratio] 12.7 mg/mg Normal [facility] Comment on above: Performed By: #### C MP, TSH, LIPID #### [facility] [address] [place], [place] [address] Dr. Luis Virgen TSHon 08-06-2021 TSH 0.924 uIU/mL Normal 0.358-3.740 [facility] [place] Comment on above: Performed By: #### C MP, TSH, LIPID #### [facility] [address] [place], [place] [address] Dr. Luis Virgen TSH RANGE SEE BELOW Normal [facility] Comment on above: Result Comment: <0.3 4 UIU/ml HYPERTHYROID 0.34-5.60 UIU/ml EUTHYROID >5.60 UIU/ml HYPOTHYROID Performed By: #### C MP, TSH, LIPID #### [facility] [address] [address] [address] Luis Virgen Encounters Encounter Date Encounter Type Care Provider Facility Start: 05-26-2023 End: 05-26-2023 ambulatory SCARLETT MILLAN Not Available Start: 02-20-2022 End: 02-20-2022 ambulatory MARLYN MILLAN Facility:[facility] Start: 11-06-2021 End: 11-06-[address] ORLIN ESCOBAR Facility[facility] Start: 08-20-2021 End: 08-20-2021 ambulatory MARLYN MILLAN Facility:[facility] Start: 08-06-2021 End: 08-07-2021 ambulatory MARLYN MILLAN Facility:[facility] Payers Date Payer Category Payer Unknown [id number] 2.16.84 [id number] 1990 Unknown [id number] 2.16.84 [id number] 1988 Unknown [id number] 2.16.84 [id number] 1988 Unknown [id number] 2.16.84 [id number] 1988 Unknown [id number] 2.16.84 [id number] 1959 Unknown [id number] Summary Purpose Family History No Family History Records FoundNo Family History Records Found Advance Directives No Advanced Directives Records FoundNo Advanced Directives Records Found Additional Source Comments INFORMATION SOURCE (unrecogn ized section and content) DATE CREATED AUTHOR 02/22/2022 [facility] DATE CREATED AUTHOR AUTHOR'S ORGANIZ ATJEANNIE 05/27/2023 [facility] FOR RECORDS PERTAINING TO PATIENTS WHO ARE [...] BE BASED ON THE PRIMARY CLINICAL RECORDS. [facility] [employer] provides no warranty or guarantee of the accuracy or completeness of information in this document.
== END 2023-06-20 08:30 | disposition home or self-care (01) ==
LOC: NOMS 08:30
PROVIDERS: PCP Nurse Practitioner; Visit Provider Obstetrics & Gynecology
DX: O20.9 Hemorrhage in early pregnancy, unspecified (principal); N92.6 Irregular menstruation, unspecified; Z3A.01 Less than 8 weeks gestation of pregnancy
CPT/HCPCS: 76817

== ENCOUNTER 2023-06-25 15:46 | Outpatient (OUT) | payer OTHER, SELFPAY ==
[2023-06-25 17:35] LABS: HCG Quantitative 15579 mIU/mL
== END 2023-06-25 15:47 | disposition home or self-care (01) ==
LOC: LAB 15:47
PROVIDERS: PCP Nurse Practitioner; Visit Provider Obstetrics & Gynecology
DX: N92.6 Irregular menstruation, unspecified (principal)
CPT/HCPCS: 36415; 84702

== ENCOUNTER 2023-06-26 09:07 | Outpatient (OUT) | payer OTHER, SELFPAY ==
--- NOTE | 2023-06-26 09:08 | US_ITS ---
The [address] [address] Patient Name: ROXANNE ROGERS MRN: [id number] date: 1990 Sex: F Assigned Patient Location: [facility] Current Patient Location: [facility] Accession/Order Number: [id number] Exam Date: 06/26/2023 09:09 Report Date: 06/26/2023 10:14 At the request of: ORLIN ESCOBAR Procedure: US OB transvaginal EXAMINATION: US OB transvaginal HISTORY: VIABILITY COMPARISON: 06/20/2023, 06/13/2023 FINDINGS: Transvaginal images Mak intrauterine gestation Gestational sac: 1.98 cm, 6 weeks 3 days CRL: 3.7 mm, 6 weeks 0 days Heart rate: No cardiac activity observed Cervix: Closed, 4 cm The uterus is normal, anteverted, anteflexed The cervix is closed measuring 4 cm in length The ovaries are normal. The right ovary measures 2.6 x 1.5 x 2.6 cm The left ovary measures 4.0 x 2.3 x 2.5 cm. US/US OB transvaginal IMPRESSION: No change in crown-rump length from 2 previous studies with absent cardiac activity. Findings are consistent with demise Electronically authenticated by: MARE ANDERSON Date: 06/26/2023 10:14
--- OUTSIDE RECORDS SUMMARY | 2023-06-26 09:26 | XMS_ITS | CCD ---
Author Organization [facility] Care Team Providers Care Financial Agent Name Role Phone AICHHOLZ, DEPLOYMENT TECHNICIAN SCARLETT Primary Care Unavailable PAY, DR LIN Admitting Unavailable PAY, DR LIN Attending Unavailable GRECHNY, GISELLE ROBERTSON Consulting Unavailable LUZ, DR ORDAZ Admitting Unavailable LUZ, DR ORDAZ Attending Unavailable AICHHOLZ, DEPLOYMENT TECHNICIAN SCARLETT Primary Care Unavailable LUZ, DR ORDAZ Consulting Unavailable AICHHOLZ, DEPLOYMENT TECHNICIAN SCARLETT Admitting Unavailable AICHHOLZ, DEPLOYMENT TECHNICIAN SCARLETT Attending Unavailable AICHHOLZ, DEPLOYMENT TECHNICIAN SCARLETT Primary Care Unavailable AICHHOLZ, DEPLOYMENT TECHNICIAN SCARLETT Consulting Unavailable AICHHOLZ, DEPLOYMENT TECHNICIAN SCARLETT Primary Care Unavailable DON, DR BIRD [...] Onset: 02-22-2022 Episodic Other aftercare (1 source) [facility] (current) use of hormonal contraceptives; Translations: [KAYAKING INSTRUCTOR HORMONAL CONTRACEPTIVES] Onset: 02-22-2022 Episodic Other aftercare (1 source) 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 When there are no FDA-approved or cleared tests available, and other criteria are met, FDA can make tests available under an emergency access mechanism called an Emergency Use Authorization (EUA). The EUA for this test is supported by the [employer] Off[employer] of Health and Human Service's (HHS's) declaration [...] SARS-CoV-2. Performed By: #### C VDTB #### [facility] [place] [facility] [address] [place] [address] Dr. Luis Virgen INFLUENZA A AND B [facility] 02-20 INFLUBNEG SEE BELOW Normal [facility] Comment on above: Result Comment: Nega tive for Flu B protein antigen. Infection due to Flu B cannot be ruled out. Flu B antigen in the sample may be below the detection limit of the test. Performed By: #### I NFLUAB #### [facility] [place] [facility] [address] [place] [address] Dr. Luis Virgen INFLUENZA A AG Positive Abnormal NEGATIVE SEE COMMENT [facility] Comment on above: Performed By: #### I NFLUAB #### [facility] [place] [facility] [address] [place] [address] Dr. Luis Virgen INFLUENZA B AG Negative Normal NEGATIVE SEE COMMENT [facility] [place] [facility] Comment on above: Performed By: #### I NFLUAB #### [facility] [place] [facility] [address] [place] [address] Dr. Luis Virgen XR CHEST 1 Von 02-20-2022 XR CHEST 1 V EXAM: CHEST 1 VIEW HISTORY: COUGH TECHNIQUE: Chest, one view. COMPARISON: None. FINDINGS: Lungs are clear. No focal consolidation, pleural effusion, or pneumothorax. Pulmonary vasculature is within normal limits. Cardiomediastinal silhouette is normal. IMPRESSION: 1. No acute cardiopulmonary disease. Electronically authenticated by: PHOEBE ALFARO Date: 2022-02-20 17:46 Normal [facility] PAP ACOG PANEL 2: 30 to 65on 11-13-2021 . . Normal [facility] Comment on above: Result Comment: Perf ormed at: WB Performed By: #### [id number] #### [facility] [place] [facility] [address] [place] [address] Dr. Luis Virgen Age Gdln ACOG Testing 30-65 Normal [facility] Comment on above: Performed By: #### [id number] #### [facility] [place] [facility] [address] [place] [address] Dr. Luis Virgen DIAGNOSIS: Comment Normal [facility] Comment on above: Result Comment: NEGA TIVE FOR INTRAEPITHELIAL LESION OR MALIGNANCY. Performed at: WB Performed By: #### [id number] #### [facility] [place] [facility] [address] [place] [address] Dr. Luis Virgen HPV Aptima Negative Normal Negative [facility] Comment on above: Result Comment: This nucleic acid amplification test detects fourteen high-risk HPV types (16,18,31,33,35,39,45,51,52,56,58,59,66,68) without differentiation. Performed at: =G Performed By: #### [id number] #### [facility] [place] [facility] [address] [place] [address] Dr. Luis Virgen Methodology: Comment Normal [facility] Comment on above: Result Comment: This liquid based ThinPrep(R) pap test was screened with the use of an image guided system. Performed at: WB Performed By: #### [id number] #### [facility] [place] [facility] [address] [place] [address] Dr. Luis Virgen Note: Comment Normal [facility] Comment on above: Result Comment: The Pap smear is a screening test designed to aid in the detection of premalignant and malignant conditions of the uterine cervix. It is not a diagnostic procedure and should not be used as the sole means of detecting cervical cancer. Both false-positive and false-negative reports do occur. . Performed at: WB Performed By: #### [id number] #### [facility] [place] [facility] [address] [place] [address] Dr. Luis Virgen Performed by: Comment Normal [facility] Comment on above: Result Comment: Maureen Del Cid, Trim Machine Adjuster (ASCP) Performed at: WB Performed By: #### [id number] #### [facility] [place] [facility] [address] [place] [address] Dr. Luis Virgen Specimen adequacy: Comment Normal [facility] Comment on above: Result Comment: Sati sfactory for evaluation. Endocervical and/or squamous metaplastic cells (endocervical component) are present. Performed at: WB Performed By: #### [id number] #### [facility] [place] [facility] [address] [place] [address] Dr. Luis Virgen URon 08-20-2021 , QUAL Negative Normal NEGATIVE [facility] Comment on above: Performed By: #### P REGU #### [facility] [place] [facility] [address] [place] [address] Dr. Luis Virgen CBC AUTO DIFFon 08-06-2021 BASO # 0.0 103/ul Normal 0.0-0.1 [facility] Comment on above: Performed By: #### C BC #### [facility] [place] [facility] [address] [place] [address] Dr. Luis Virgen Basophils/100 WBC (Bld) 0.3 % Normal 0.2-2.0 [facility] Comment on above: Performed By: #### C BC #### [facility] [place] [facility] [address] [place] [address] Dr. Luis Virgen EO # 0.0 103/ul Normal 0.0-0.7 [facility] Comment on above: Performed By: #### C BC #### [facility] [place] [facility] [address] [place] [address] Dr. Luis Virgen Eosinophils/100 WBC (Bld) 0.3 % Critically low 0.9-7.0 [facility] Comment on above: Performed By: #### C BC #### [facility] [place] [facility] [address] [place] [address] Dr. Luis Virgen Erythrocyte distribution width (RBC) [Ratio] 12.6 % Normal 11.0-15.0 [facility] Comment on above: Performed By: #### C BC #### [facility] [place] [facility] [address] [place] [address] Dr. Luis Virgen Hematocrit (Bld) [Volume fraction] 41.5 % Normal 36.0-48.0 [facility] Comment on above: Performed By: #### C BC #### [facility] [place] [facility] [address] [place] [address] Dr. Luis Virgen Hemoglobin (Bld) [Mass/Vol] 13.5 g/dL Normal 12.0-16.0 [facility] Comment on above: Performed By: #### C BC #### [facility] [place] [facility] [address] [place] [address] Dr. Luis Virgen IG # 0.03 10e3/ul Normal 0.00-0.03 [facility] Comment on above: Performed By: #### C BC #### [facility] [place] [facility] [address] [place] [address] Dr. Luis Virgen IG % 0.4 % Normal 0.0-0.5 [facility] Comment on above: Performed By: #### C BC #### [facility] [place] [facility] [address] [place] [address] Dr. Luis Virgen LYMPH # 2.4 103/ul Normal 1.2-3.8 [facility] [place] [facility] Comment on above: Performed By: #### C BC #### [facility] [place] [facility] [address] [place] [address] Dr. Luis Virgen Lymphocytes/100 WBC (Bld) 31.8 % Normal 20.5-60.0 [facility] Comment on above: Performed By: #### C BC #### [facility] [place] [facility] [address] [place] [address] Dr. Luis Virgen MANUAL DIFF REQ NO Normal [facility] Comment on above: Performed By: #### C BC #### [facility] [place] [facility] [address] [place] [address] Dr. Luis Virgen MCH (RBC) [Entitic mass] 30.5 pg Normal 26.7-34.0 [facility] [place] [facility] Comment on above: Performed By: #### C BC #### [facility] [place] [facility] [address] [place] [address] Dr. Luis Virgen MCHC (RBC) [Mass/Vol] 32.5 g/dL Normal 29.9-35.2 [facility] [place] [facility] Comment on above: Performed By: #### C BC #### [facility] [place] [facility] [address] [id number] [address] Luis Virgen MCV (RBC) [Entitic vol] 93.9 fL Normal 81.0-99.0 [facility] Comment on above: Performed By: #### C BC #### [facility] [place] [facility] [address] [address] [address] Luis Virgen MONO # 0.6 103/ul Normal 0.3-0.8 [facility] Comment on above: Performed By: #### C BC #### [facility] [place] [facility] [address] [address] [address] Luis Virgen Monocytes/100 WBC (Bld) 7.4 % Normal 1.7-12.0 [facility] Comment on above: Performed By: #### C BC #### [facility] [place] [facility] [address] [place] [address] Dr. Luis Virgen NEUT # 4.5 103/ul Normal 1.4-6.5 [facility] Comment on above: Performed By: #### C BC #### [facility] [place] [facility] [address] [place] [address] Dr. Luis Virgen Neutrophils/100 WBC (Bld) 59.8 % Normal 43.0-75.0 [facility] Comment on above: Performed By: #### C BC #### [facility] [place] [facility] [address] [place] [address] Dr. Luis Virgen Platelet mean volume (Bld) [Entitic vol] 10.0 fL Normal 9.5-13.5 [facility] Comment on above: Performed By: #### C BC #### [facility] [place] [facility] [address] [place] [address] Dr. Luis Virgen PLT 337 103/ul Normal 150-450 [facility] [place] [facility] Comment on above: Performed By: #### C BC #### [facility] [place] [facility] [address] [place] [address] Dr. Luis Virgen RBC 4.42 106/ul Normal 4.20-5.40 [facility] [place] [facility] Comment on above: Performed By: #### C BC #### [facility] [place] [facility] [address] [place], [place] [id number] Dr. Luis Virgen WBC 7.6 103/ul Normal 4.0-11.0 [facility] Comment on above: Performed By: #### C BC #### [facility] [place] [facility] [address] [place] [address] Dr. Lusi Virgen FREE T4on 08-06-2021 Free T4 [Mass/Vol] 0.91 ng/dL Normal 0.76-1.46 [facility] Comment on above: Performed By: #### F T4 #### [facility] [place] [facility] [address] [place] [address] Dr. Luis Virgen LIPID PROFILEon 08-06-2021 CHOL-HDL RATIO NORM SEE BELOW Normal [facility] Comment on above: Result Comment: 3.3 - 4.4 LOW RISK 4.4 - 7.1 AVERAGE RISK 7.1 - 11.0 MODERATE RISK >11.0 HIGH RISK Performed By: #### C MP, TSH, LIPID #### [facility] [place] [facility] [address] [place] [address] Dr. Luis Virgen Cholesterol [Mass/Vol] 154 mg/dL Normal <=200 [facility] Comment on above: Performed By: #### C MP, TSH, LIPID #### [facility] [place] [facility] [address] [place] [address] Dr. Luis Virgen Cholesterol in HDL [Mass/Vol] 35 mg/dL Critically low 40-60 [facility] Comment on above: Performed By: #### C MP, TSH, LIPID #### [facility] [place] [facility] [address] [place] [address] Dr. Luis Virgen Cholesterol in LDL [Mass/Vol] 80.8 mg/dL Normal [facility] Comment on above: Performed By: #### C MP, TSH, LIPID #### [facility] [place] [facility] [address] [place] [address] Dr. Luis Virgen Cholesterol.total/ Cholesterol in HDL [Mass ratio] 4.4 {ratio} Normal [facility] Comment on above: Performed By: #### C MP, TSH, LIPID #### [facility] [place] [facility] [address] [place] [address] Dr. Luis Virgen HDL NORMAL > or = 60 mg/dl - LO W CARDIOVASCULAR RISK <40 mg/dl - HIGH CARDIOVASCULAR RISK Normal [facility] Comment on above: Performed By: #### C MP, TSH, LIPID #### [facility] [place] [facility] [address] [address] [address] Luis Virgen LDL CALC NORMAL SEE BELOW Normal [facility] Comment on above: Result Comment: <100 mg/dl OPTIMAL 100 - 129 mg/dl NEAR OR ABOVE OPTIMAL 130 - 159 mg/dl BORDERLINE HIGH 160 - 189 mg/dl HIGH >190 mg/dl VERY HIGH Performed By: #### C MP, TSH, LIPID #### [facility] [place] [facility] [address] [address] [address] Luis Virgen Triglyceride [Mass/Vol] 191 mg/dL Critically high <=150 [facility] Comment on above: Performed By: #### C MP, TSH, LIPID #### [facility] [place] [facility] [address] [address] [address] Luis Virgen VLDL CALC 38.2 mg/dL Normal [facility] Comment on above: Performed By: #### C MP, TSH, LIPID #### [facility] [place] [facility] [address] [address] [address] Luis Virgen PROF 14(COMP METB)on 022 Albumin [Mass/Vol] 4.1 g/dL Normal 3.4-5.0 [facility] Comment on above: Performed By: #### C MP, TSH, LIPID #### [facility] [place] [facility] [address] [address] [address] Luis Virgen Albumin/Globulin [Mass ratio] 1.2 {ratio} Normal [facility] Comment on above: Performed By: #### C MP, TSH, LIPID #### [facility] [place] [facility] [address] [address] [address] Luis Virgen ALP [Catalytic activity/Vol] 73 U/L Normal 46-116 [facility] Comment on above: Performed By: #### C MP, TSH, LIPID #### [facility] [place] [facility] [address] [address] [address] Luis Virgen ALT [Catalytic activity/Vol] 24 U/L Normal 14-59 [facility] Comment on above: Performed By: #### C MP, TSH, LIPID #### [facility] [place] [facility] [address] [address] [address] Luis Virgen Anion gap [Moles/Vol] 13.2 mmol/L Normal [facility] Comment on above: Performed By: #### C MP, TSH, LIPID #### [facility] [place] [facility] [address] [address] [address] Luis Virgen AST [Catalytic activity/Vol] 11 U/L Critically low 15-37 [facility] Comment on above: Performed By: #### C MP, TSH, LIPID #### [facility] [place] [facility] [address] [place] [address] Dr. Luis Virgen Bilirubin [Mass/Vol] 0.8 mg/dL Normal 0.2-1.0 [facility] Comment on above: Performed By: #### C MP, TSH, LIPID #### [facility] [place] [facility] [address] [place] [address] Dr. Luis Virgen Calcium [Mass/Vol] 8.9 mg/dL Normal 8.5-10.1 [facility] Comment on above: Performed By: #### C MP, TSH, LIPID #### [facility] [place] [facility] [address] [place] [address] Dr. Luis Virgen Chloride [Moles/Vol] 103 mmol/L Normal 98-107 [facility] [place] [facility] Comment on above: Performed By: #### C MP, TSH, LIPID #### [facility] [place] [facility] [address] [place] [address] Dr. Luis Virgen CO2 [Moles/Vol] 27.5 mmol/L Normal 21.0-32.0 [facility] Comment on above: Performed By: #### C MP, TSH, LIPID #### [facility] [place] [facility] [address] [place] [address] Dr. Luis Virgen Creatinine [Mass/Vol] 0.71 mg/dL Normal 0.55-1.02 [facility] Comment on above: Performed By: #### C MP, TSH, LIPID #### [facility] [place] [facility] [address] [place] [address] Dr. Luis Virgen EGFR-AF PITCA[place]N ISLANDER >60 Normal >=60 [facility] Comment on above: Performed By: #### C MP, TSH, LIPID #### [facility] [place] [facility] [address] [place] [address] Dr. Luis Virgen EGFR-NON AF [place] ISLANDER >60 Normal >=60 [facility] Comment on above: Performed By: #### C MP, TSH, LIPID #### [facility] [place] [facility] [address] [place] [address] Dr. Luis Virgen Globulin (S) [Mass/Vol] 3.5 g/dL Normal [facility] Comment on above: Performed By: #### C MP, TSH, LIPID #### [facility] [place] [facility] [address] [place] [address] Dr. Luis Virgen Glucose [Mass/Vol] 101 mg/dL Normal 74-106 [facility] Comment on above: Performed By: #### C MP, TSH, LIPID #### [facility] [place] [facility] [address] [place] [address] Dr. Luis Virgen Potassium [Moles/Vol] 4.7 mmol/L Normal 3.5-5.1 [facility] [place] [facility] Comment on above: Performed By: #### C MP, TSH, LIPID #### [facility] [place] [facility] [address] [place] [address] Dr. Luis Virgen Protein [Mass/Vol] 7.6 g/dL Normal 6.4-8.2 [facility] Comment on above: Performed By: #### C MP, TSH, LIPID #### [facility] [place] [facility] [address] [place] [address] Dr. Luis Virgen Sodium [Moles/Vol] 139 mmol/L Normal 136-145 [facility] Comment on above: Performed By: #### C MP, TSH, LIPID #### [facility] [place] [facility] [address] [place] [address] Dr. Luis Virgen Urea nitrogen [Mass/Vol] 9.0 mg/dL Normal 7.0-18.0 [facility] Comment on above: Performed By: #### C MP, TSH, LIPID #### [facility] [place] [facility] [address] [place] [address] Dr. Luis Virgen Urea nitrogen/Creatinin e [Mass ratio] 12.7 mg/mg Normal [facility] [place] [facility] Comment on above: Performed By: #### C MP, TSH, LIPID #### [facility] [place] [facility] [address] [place], [place] [address] Dr. Luis Virgen TSHon 08-06-2021 TSH 0.924 uIU/mL Normal 0.358-3.740 [facility] Comment on above: Performed By: #### C MP, TSH, LIPID #### [facility] [place] [facility] [address] [place], [place] [address] Dr. Luis Virgen TSH RANGE SEE BELOW Normal [facility] [place] [facility] Comment on above: Result Comment: <0.3 4 UIU/ml HYPERTHYROID 0.34-5.60 UIU/ml EUTHYROID >5.60 UIU/ml HYPOTHYROID Performed By: #### C MP, TSH, LIPID #### [facility] [place] [facility] [address] [address] [address] Luis Virgen Encounters Encounter Date Encounter Type Care Provider Facility Start: 05-26-2023 End: 05-26-2023 ambulatory SCARLETT MILLAN Not Available Start: 02-20-2022 End: 02-20-2022 ambulatory MARLYN MILLAN Facility:[facility] Start: 11-06-2021 End: 11-06-[address] ORLIN ESCOBAR Facility:[facility] Start: 08-20-2021 End: 08-20-2021 ambulatory MARLYN MILLAN Facility:[facility] Start: 08-06-2021 End: 08-07-2021 ambulatory MARLYN MILLAN Facility:[facility] Payers Date Payer Category Payer Unknown [id number] 2.16.84 [id number] 1988 Unknown [id number] 2.16.84 [id number] 1988 Unknown [id number] 2.16.84 [id number] 1988 Unknown [id number] 2.16.84 [id number] 1988 Unknown [id number] 2.16.84 [id number] 1959 Unknown [id number] Summary Purpose Family History No Family History Records FoundNo Family History Records Found Advance Directives No Advanced Directives Records FoundNo Advanced Directives Records Found Additional Source Comments INFORMATION SOURCE (unrecogn ized section and content) DATE CREATED AUTHOR 02/22/2022 [facility] DATE CREATED AUTHOR AUTHOR'S ORGANIZ ATJEANNIE 05/27/2023 [facility] FOR RECORDS PERTAINING TO PATIENTS WHO [...] BE BASED ON THE PRIMARY CLINICAL RECORDS. [facility] [employer] provides no warranty or guarantee of the accuracy or completeness of information in this document.
== END 2023-06-26 09:08 | disposition home or self-care (01) ==
LOC: NOMS 09:07
PROVIDERS: PCP Nurse Practitioner; Visit Provider Obstetrics & Gynecology
DX: O02.1 Missed abortion (principal); N92.6 Irregular menstruation, unspecified
CPT/HCPCS: 76817

== ENCOUNTER 2023-06-27 14:40 | Outpatient (OUT) | payer OTHER, SELFPAY ==
--- OUTSIDE RECORDS SUMMARY | 2023-06-27 15:02 | XMS_ITS | CCD ---
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 Name Role Phone AICHHOLZ, COMMERCIAL DRIVER'S LICENSE DRIVER SCARLETT Primary Care Unavailable PAY, DR LIN Admitting Unavailable PAY, DR LIN Attending Unavailable GRECHNY, GISELLE ROBERTSON Consulting Unavailable LUZ, DR ORDAZ Admitting Unavailable LUZ, DR ORDAZ Attending Unavailable AICHHOLZ, COMMERCIAL DRIVER'S LICENSE DRIVER SCARLETT Primary Care Unavailable LUZ, DR ORDAZ Consulting Unavailable AICHHOLZ, COMMERCIAL DRIVER'S LICENSE DRIVER SCARLETT Admitting Unavailable AICHHOLZ, COMMERCIAL DRIVER'S LICENSE DRIVER SCARLETT Attending Unavailable AICHHOLZ, COMMERCIAL DRIVER'S LICENSE DRIVER SCARLETT Primary Care Unavailable AICHHOLZ, COMMERCIAL DRIVER'S LICENSE DRIVER SCARLETT Consulting Unavailable AICHHOLZ, COMMERCIAL DRIVER'S LICENSE DRIVER SCARLETT Primary Care Unavailable DON, DR BIRD [...] Onset: 02-22-2022 Episodic Other aftercare (1 source) [facility] (current) use of hormonal contraceptives; Translations: [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 When there are no FDA-approved or cleared tests available, and other criteria are met, FDA can make tests available under an emergency access mechanism called an Emergency Use Authorization (EUA). The EUA for this test is supported by the [employer] of Health and Human Service's (HHS's) declaration [...] SARS-CoV-2. Performed By: #### C VDTB #### [facility] [address] [place] [address] Dr. Luis Virgen INFLUENZA A AND B [facility] 02-20 INFLUBNEG SEE BELOW Normal [facility] Comment on above: Result Comment: Nega tive for Flu B protein antigen. Infection due to Flu B cannot be ruled out. Flu B antigen in the sample may be below the detection limit of the test. Performed By: #### I NFLUAB #### [facility] [address] [place] [address] Dr. Luis Virgen INFLUENZA A AG Positive Abnormal NEGATIVE SEE COMMENT [facility] Comment on above: Performed By: #### I NFLUAB #### [facility] [address] [place] [address] Dr. Luis Virgen INFLUENZA B AG Negative Normal NEGATIVE SEE COMMENT [facility] Comment on above: Performed By: #### I NFLUAB #### [facility] [address] [place] [address] Dr. Luis Virgen XR CHEST 1 Von 02-20-2022 XR CHEST 1 V EXAM: CHEST 1 VIEW HISTORY: COUGH TECHNIQUE: Chest, one view. COMPARISON: None. FINDINGS: Lungs are clear. No focal consolidation, pleural effusion, or pneumothorax. Pulmonary vasculature is within normal limits. Cardiomediastinal silhouette is normal. IMPRESSION: 1. No acute cardiopulmonary disease. Electronically authenticated by: PHOEBE ALFARO Date: 2022-02-20 17:46 Normal [facility] PAP ACOG PANEL 2: 30 to 65on 11-13-2021 . . Normal [facility] Comment on above: Result Comment: Perf ormed at: [facility] Performed By: #### [id number] #### [facility] [address] [place] [address] Dr. Luis Virgen Age Gdln ACOG Testing 30-65 Normal [facility] Comment on above: Performed By: #### [id number] #### [facility] [address] [place] [address] Dr. Luis Virgen DIAGNOSIS: Comment Normal [facility] Comment on above: Result Comment: NEGA TIVE FOR INTRAEPITHELIAL LESION OR MALIGNANCY. Performed at: [facility] Performed By: #### [id number] #### [facility] [address] [place] [address] Dr. Luis Virgen HPV Aptima Negative Normal Negative [facility] Comment on above: Result Comment: This nucleic acid amplification test detects fourteen high-risk HPV types (16,18,31,33,35,39,45,51,52,56,58,59,66,68) without differentiation. Performed at: =G Performed By: #### [id number] #### [facility] [address] [place] [address] Dr. Luis Virgen Methodology: Comment Normal [facility] Comment on above: Result Comment: This liquid based ThinPrep(R) pap test was screened with the use of an image guided system. Performed at: [facility] Performed By: #### [id number] #### [facility] [address] [place] [address] Dr. Luis Virgen Note: Comment Normal [facility] Comment on above: Result Comment: The Pap smear is a screening test designed to aid in the detection of premalignant and malignant conditions of the uterine cervix. It is not a diagnostic procedure and should not be used as the sole means of detecting cervical cancer. Both false-positive and false-negative reports do occur. . Performed at: WB Performed By: #### [id number] #### [facility] [address] [place] [address] Dr. Luis Virgen Performed by: Comment Normal [facility] Comment on above: Result Comment: Maureen Del Cid, Speech Therapy Teacher (ASCP) Performed at: WB Performed By: #### [id number] #### [facility] [address] [place] [address] Dr. Luis Virgen Specimen adequacy: Comment Normal [facility] Comment on above: Result Comment: Sati sfactory for evaluation. Endocervical and/or squamous metaplastic cells (endocervical component) are present. Performed at: WB Performed By: #### [id number] #### [facility] [address] [place] [address] Dr. Luis Virgen URon 08-20-2021 , QUAL Negative Normal NEGATIVE [facility] Comment on above: Performed By: #### P REGU #### [facility] [address] [place] [address] Dr. Luis Virgen CBC AUTO DIFFon 08-06-2021 BASO # 0.0 103/ul Normal 0.0-0.1 [facility] Comment on above: Performed By: #### C BC #### [facility] [address] [place] [address] Dr. Luis Virgen Basophils/100 WBC (Bld) 0.3 % Normal 0.2-2.0 [facility] Comment on above: Performed By: #### C BC #### [facility] [address] [place] [address] Dr. Luis Virgen EO # 0.0 103/ul Normal 0.0-0.7 [facility] Comment on above: Performed By: #### C BC #### [facility] [address] [place] [address] Dr. Luis Virgen Eosinophils/100 WBC (Bld) 0.3 % Critically low 0.9-7.0 [facility] Comment on above: Performed By: #### C BC #### [facility] [address] [place] [address] Dr. Luis Virgen Erythrocyte distribution width (RBC) [Ratio] 12.6 % Normal 11.0-15.0 [facility] Comment on above: Performed By: #### C BC #### [facility] [address] [place] [address] Dr. Luis Virgen Hematocrit (Bld) [Volume fraction] 41.5 % Normal 36.0-48.0 [facility] Comment on above: Performed By: #### C BC #### [facility] [address] [place] [address] Dr. Luis Virgen Hemoglobin (Bld) [Mass/Vol] 13.5 g/dL Normal 12.0-16.0 [facility] Comment on above: Performed By: #### C BC #### [facility] [address] [place] [address] Dr. Luis Virgen IG # 0.03 10e3/ul Normal 0.00-0.03 [facility] Comment on above: Performed By: #### C BC #### [facility] [address] [place] [address] Dr. Luis Virgen IG % 0.4 % Normal 0.0-0.5 [facility] Comment on above: Performed By: #### C BC #### [facility] [address] [place] [address] Dr. Luis Virgen LYMPH # 2.4 103/ul Normal 1.2-3.8 [facility] Comment on above: Performed By: #### C BC #### [facility] [address] [place] [address] Dr. Luis Virgen Lymphocytes/100 WBC (Bld) 31.8 % Normal 20.5-60.0 [facility] Comment on above: Performed By: #### C BC #### [facility] [address] [place] [address] Dr. Luis Virgen MANUAL DIFF REQ NO Normal [facility] Comment on above: Performed By: #### C BC #### [facility] [address] [place] [address] Dr. Luis Virgen MCH (RBC) [Entitic mass] 30.5 pg Normal 26.7-34.0 [facility] Comment on above: Performed By: #### C BC #### [facility] [address] [place] [address] Dr. Luis Virgen MCHC (RBC) [Mass/Vol] 32.5 g/dL Normal 29.9-35.2 [facility] Comment on above: Performed By: #### C BC #### [facility] [address] [id number] [address] Luis Virgen MCV (RBC) [Entitic vol] 93.9 fL Normal 81.0-99.0 [facility] Comment on above: Performed By: #### C BC #### [facility] [address] [address] [address] Luis Virgen MONO # 0.6 103/ul Normal 0.3-0.8 [facility] Comment on above: Performed By: #### C BC #### [facility] [address] [address] [address] Luis Virgen Monocytes/100 WBC (Bld) 7.4 % Normal 1.7-12.0 [facility] Comment on above: Performed By: #### C BC #### [facility] [address] [place] [address] Dr. Luis Virgen NEUT # 4.5 103/ul Normal 1.4-6.5 [facility] Comment on above: Performed By: #### C BC #### [facility] [address] [place] [address] Dr. Luis Virgen Neutrophils/100 WBC (Bld) 59.8 % Normal 43.0-75.0 [facility] Comment on above: Performed By: #### C BC #### [facility] [address] [place] [address] Dr. Luis Virgen Platelet mean volume (Bld) [Entitic vol] 10.0 fL Normal 9.5-13.5 [facility] Comment on above: Performed By: #### C BC #### [facility] [address] [place] [address] Dr. Luis Virgen PLT 337 103/ul Normal 150-450 [facility] Comment on above: Performed By: #### C BC #### [facility] [address] [place] [address] Dr. Luis Virgen RBC 4.42 106/ul Normal 4.20-5.40 [facility] Comment on above: Performed By: #### C BC #### [facility] [address] [place], [place] [id number] Dr. Luis Virgen WBC 7.6 103/ul Normal 4.0-11.0 [facility] Comment on above: Performed By: #### C BC #### [facility] [address] [place] [address] Dr. Luis Virgen FREE T4on 08-06-2021 Free T4 [Mass/Vol] 0.91 ng/dL Normal 0.76-1.46 [facility] Comment on above: Performed By: #### F T4 #### [facility] [address] [place] [address] Dr. Luis Virgen LIPID PROFILEon 08-06-2021 CHOL-HDL RATIO NORM SEE BELOW Normal [facility] Comment on above: Result Comment: 3.3 - 4.4 LOW RISK 4.4 - 7.1 AVERAGE RISK 7.1 - 11.0 MODERATE RISK >11.0 HIGH RISK Performed By: #### C MP, TSH, LIPID #### [facility] [address] [place] [address] Dr. Luis Virgen Cholesterol [Mass/Vol] 154 mg/dL Normal <=200 [facility] Comment on above: Performed By: #### C MP, TSH, LIPID #### [facility] [address] [place] [address] Dr. Luis Virgen Cholesterol in HDL [Mass/Vol] 35 mg/dL Critically low 40-60 [facility] Comment on above: Performed By: #### C MP, TSH, LIPID #### [facility] [address] [place] [address] Dr. Luis Virgen Cholesterol in LDL [Mass/Vol] 80.8 mg/dL Normal [facility] Comment on above: Performed By: #### C MP, TSH, LIPID #### [facility] [address] [place] [address] Dr. Luis Virgen Cholesterol.total/ Cholesterol in HDL [Mass ratio] 4.4 {ratio} Normal [facility] Comment on above: Performed By: #### C MP, TSH, LIPID #### [facility] [address] [place] [address] Dr. Luis Virgen HDL NORMAL > or = 60 mg/dl - LO W CARDIOVASCULAR RISK <40 mg/dl - HIGH CARDIOVASCULAR RISK Normal [facility] Comment on above: Performed By: #### C MP, TSH, LIPID #### [facility] [address] [address] [address] Luis Virgen LDL CALC NORMAL SEE BELOW Normal [facility] Comment on above: Result Comment: <100 mg/dl OPTIMAL 100 - 129 mg/dl NEAR OR ABOVE OPTIMAL 130 - 159 mg/dl BORDERLINE HIGH 160 - 189 mg/dl HIGH >190 mg/dl VERY HIGH Performed By: #### C MP, TSH, LIPID #### [facility] [address] [address] [address] Luis Virgen Triglyceride [Mass/Vol] 191 mg/dL Critically high <=150 [facility] Comment on above: Performed By: #### C MP, TSH, LIPID #### [facility] [address] [address] [address] Luis Virgen VLDL CALC 38.2 mg/dL Normal [facility] Comment on above: Performed By: #### C MP, TSH, LIPID #### [facility] [address] [address] [address] Luis Virgen PROF 14(COMP METB)on 022 Albumin [Mass/Vol] 4.1 g/dL Normal 3.4-5.0 [facility] Comment on above: Performed By: #### C MP, TSH, LIPID #### [facility] [address] [address] [address] Luis Virgen Albumin/Globulin [Mass ratio] 1.2 {ratio} Normal [facility] Comment on above: Performed By: #### C MP, TSH, LIPID #### [facility] [address] [address] [address] Luis Virgen ALP [Catalytic activity/Vol] 73 U/L Normal 46-116 [facility] Comment on above: Performed By: #### C MP, TSH, LIPID #### [facility] [address] [address] [address] Luis Virgen ALT [Catalytic activity/Vol] 24 U/L Normal 14-59 [facility] Comment on above: Performed By: #### C MP, TSH, LIPID #### [facility] [address] [address] [address] Luis Virgen Anion gap [Moles/Vol] 13.2 mmol/L Normal [facility] Comment on above: Performed By: #### C MP, TSH, LIPID #### [facility] [address] [address] [address] Luis Virgen AST [Catalytic activity/Vol] 11 U/L Critically low 15-37 [facility] Comment on above: Performed By: #### C MP, TSH, LIPID #### [facility] [address] [place] [address] Dr. Luis Virgen Bilirubin [Mass/Vol] 0.8 mg/dL Normal 0.2-1.0 [facility] Comment on above: Performed By: #### C MP, TSH, LIPID #### [facility] [address] [place] [address] Dr. Luis Virgen Calcium [Mass/Vol] 8.9 mg/dL Normal 8.5-10.1 [facility] Comment on above: Performed By: #### C MP, TSH, LIPID #### [facility] [address] [place] [address] Dr. Luis Virgen Chloride [Moles/Vol] 103 mmol/L Normal 98-107 [facility] Comment on above: Performed By: #### C MP, TSH, LIPID #### [facility] [address] [place] [address] Dr. Luis Virgen CO2 [Moles/Vol] 27.5 mmol/L Normal 21.0-32.0 [facility] Comment on above: Performed By: #### C MP, TSH, LIPID #### [facility] [address] [place] [address] Dr. Luis Virgen Creatinine [Mass/Vol] 0.71 mg/dL Normal 0.55-1.02 [facility] Comment on above: Performed By: #### C MP, TSH, LIPID #### [facility] [address] [place] [address] Dr. Luis Virgen EGFR-AF UKRAINIAN >60 Normal >=60 [facility] Comment on above: Performed By: #### C MP, TSH, LIPID #### [facility] [address] [place] [address] Dr. Luis Virgen EGFR-NON AF UKRAINIAN >60 Normal >=60 [facility] Comment on above: Performed By: #### C MP, TSH, LIPID #### [facility] [address] [place] [address] Dr. Luis Virgen Globulin (S) [Mass/Vol] 3.5 g/dL Normal [facility] Comment on above: Performed By: #### C MP, TSH, LIPID #### [facility] [address] [place] [address] Dr. Luis Virgen Glucose [Mass/Vol] 101 mg/dL Normal 74-106 [facility] Comment on above: Performed By: #### C MP, TSH, LIPID #### [facility] [address] [place] [address] Dr. Luis Virgen Potassium [Moles/Vol] 4.7 mmol/L Normal 3.5-5.1 [facility] Comment on above: Performed By: #### C MP, TSH, LIPID #### [facility] [address] [place] [address] Dr. Luis Virgen Protein [Mass/Vol] 7.6 g/dL Normal 6.4-8.2 [facility] Comment on above: Performed By: #### C MP, TSH, LIPID #### [facility] [address] [place] [address] Dr. Luis Virgen Sodium [Moles/Vol] 139 mmol/L Normal 136-145 [facility] Comment on above: Performed By: #### C MP, TSH, LIPID #### [facility] [address] [place] [address] Dr. Luis Virgen Urea nitrogen [Mass/Vol] 9.0 mg/dL Normal 7.0-18.0 [facility] Comment on above: Performed By: #### C MP, TSH, LIPID #### [facility] [address] [place] [address] Dr. Luis Virgen Urea nitrogen/Creatinin e [Mass ratio] 12.7 mg/mg Normal [facility] Comment on above: Performed By: #### C MP, TSH, LIPID #### [facility] [address] [place], [place] [address] Dr. Luis Virgen TSHon 08-06-2021 TSH 0.924 uIU/mL Normal 0.358-3.740 [facility] Comment on above: Performed By: #### C MP, TSH, LIPID #### [facility] [address] [place], [place] [address] Dr. Luis Virgen TSH RANGE SEE BELOW Normal [facility] Comment on above: Result Comment: <0.3 4 UIU/ml HYPERTHYROID 0.34-5.60 UIU/ml EUTHYROID >5.60 UIU/ml HYPOTHYROID Performed By: #### C MP, TSH, LIPID #### [facility] [address] [address] [address] Luis Virgen Encounters Encounter Date Encounter Type Care Provider Facility Start: 05-26-2023 End: 05-26-2023 ambulatory SCARLETT MILLAN Not Available Start: 02-20-2022 End: 02-20-2022 ambulatory MARLYN MILLAN Facility:[facility] Start: 11-06-2021 End: 11-06-[address] ORLIN ESCOBAR Facility:[facility] Start: 08-20-2021 End: 08-20-2021 ambulatory MARLYN MILLAN Facility:[facility] Start: 08-06-2021 End: 08-07-2021 ambulatory MARLYN MILLAN Facility:[facility] Payers Date Payer Category Payer Unknown [id number] 2.16.84 [id number] 1988 Unknown [id number] 2.16.84 [id number] 1988 Unknown [id number] 2.16.84 [id number] 1988 Unknown [id number] 2.16.84 [id number] 1988 Unknown [id number] 2.16.84 [id number] 1959 Unknown [id number] Summary Purpose Family History No Family History Records FoundNo Family History Records Found Advance Directives No Advanced Directives Records FoundNo Advanced Directives Records Found Additional Source Comments INFORMATION SOURCE (unrecogn ized section and content) DATE CREATED AUTHOR 02/22/2022 [facility] DATE CREATED AUTHOR AUTHOR'S ORGANIZ ATJEANNIE 05/27/2023 [facility] FOR RECORDS PERTAINING TO PATIENTS [...] BE BASED ON THE PRIMARY CLINICAL RECORDS. [facility] [employer] provides no warranty or guarantee of the accuracy or completeness of information in this document.
--- NOTE | 2023-06-30 10:54 | PM.PRESUREVA ---
History of Present Illness History of Present Illness Chief complaint: MISSED AB Narrative: DOS 06/27/2023 Patient presents for preadmission testing. The patient reports she is eleven weeks and had her 1st appointment and there was no fetus. She states she has not had any abdominal pain, vaginal bleeding, nausea, vomiting, or any other complaints. Review of Systems ROS Narrative REVIEW OF SYS TEMS: Negative exc ept as stated in H PI, ten or more sy stems reviewed. Constitutio nal: No fever , ch ills, weakness ENT: No sore t hroat or epistaxis Cardiovasc ular: No edema, ch est pain, palpitat ions, or activity intolerance Respiratory: No s hortness of breath , cough, or wheezi ng Musculos keletal: No joint pain or swelling Gastrointest inal: No abdominal pain, constipatio n, diarrhea, or vo miting Jyotsna tourinary: No dysu luis or hematuria Neurological : No numbness, tin gling, weakness, o r headache Psychiatric: No mo od changes PFSH PFSH Medical History (Updated 06/27/23 @ 15:02 by Guera Billingsley NP) Missed ?O02.1 - Missed (ICD-10) Seasonal allergies ?J30.2 - Other seasonal allergic rhinitis (ICD-10) Migraine ?G43.909 - Migraine, unspecified, not intractable, without status migrainosus (ICD-10) Delayed recovery from anesthesia SVT (supraventricular tachycardia) ?I47.1 - Supraventricular tachycardia (ICD-10) Surgical History (Updated 06/27/23 @ 15:02 by Guera Billingsley NP) History of arthroscopy of knee ?Z98.890 - Other specified postprocedural states (ICD-10) History of foot surgery ?Z98.890 - Other specified postprocedural states (ICD-10) Family History (Updated 06/27/23 @ 15:02 by Guera Billingsley NP) Other Bladder cancer Delayed recovery from anesthesia Family history of coronary artery disease Family history of hypertension Family history of myocardial infarction Social History (Updated 06/27/23 @ 14:58 by Guera Billingsley NP) Within the past year, how often did you have a drink containing alcohol: never Score interpretation: A score less than 3 is consistent with normal alcohol consumption. Smoking status: Former smoker Non-prescribed substance use: denies use Highest level of school completed/degree received: high school graduate Meds Home Medications and Allergies Home Medications ?Medication ?Instructions ?Recorded ?Confirmed ?Type trazodone 100 mg tablet 100 mg PO BEDTIME 08/15/22 06/27/23 History Allergies Allergy/AdvReac Type Severity Reaction Status Date / Time latex Allergy Rash Verified 06/27/23 14:57 Exam Narrative Exam Narrative: Exam Narrative: Constitutional: Awake, alert, comfortable, well-appearing, nontoxic, interactive, vital signs as charted Head: Normocephalic, atraumatic Neck: Supple, normal appearance, normal range of motion, no meningeal signs, no lymphadenopathy Respiratory: No respiratory distress, breath sounds clear Cardiovascular: Regular rate and rhythm, strong and regular heart tones Abdomen: Nontender, normal bowel sounds, soft, no CVA tenderness Musculoskeletal: Normal gait, no swelling or edema Skin: No rashes or induration, no lesions, only visible skin inspected Neuro: No neurological deficits, normal sensation Psychiatric: Oriented ?3, normal affect Assessment and Plan Assessment and Plan (1) Missed : Plan D and C with suction scheduled with Dr. Castro 06/30/2023.
== END 2023-06-27 14:41 | disposition home or self-care (01) ==
LOC: PST 14:43
PROVIDERS: PCP Nurse Practitioner; Visit Provider Obstetrics & Gynecology
DX: Z01.818 Encounter for other preprocedural examination (principal)
CPT/HCPCS: G0463

== ENCOUNTER 2023-06-30 11:10 | Day surgery (SDC) | payer OTHER, SELFPAY ==
[2023-06-27 15:08] VITALS: BP 98/62; PULSE 83; TEMP 36.5; O2SAT 98; BMI 30.5
--- NOTE | 2023-06-27 15:09 | PM.PRESUREVA ---
History of Present Illness History of Present Illness Chief complaint: MISSED Narrative: Patient presents for preadmission testing. The patient reports she is eleven weeks and had her 1st appointment and there was no fetus. She states she has not had any abdominal pain, vaginal bleeding, nausea, vomiting, or any other complaints. Review of Systems ROS Narrative REVIEW OF SYSTEMS: Negative except as stated in HPI, ten or more systems reviewed. Constitutional: No fever , chills, weakness ENT: No sore throat or epistaxis Cardiovascular: No edema, chest pain, palpitations, or activity intolerance Respiratory: No shortness of breath, cough, or wheezing Musculoskeletal: No joint pain or swelling Gastrointestinal: No abdominal pain, constipation, diarrhea, or vomiting Genitourinary: No dysuria or hematuria Neurological: No numbness, tingling, weakness, or headache Psychiatric: No mood changes PFSH PFS Medical History (Updated 06/27/23 @ 15:02 by Guera Billingsley NP) Missed ?O02.1 - Missed (ICD-10) Seasonal allergies ?J30.2 - Other seasonal allergic rhinitis (ICD-10) Migraine ?G43.909 - Migraine, unspecified, not intractable, without status migrainosus (ICD-10) Delayed recovery from anesthesia SVT (supraventricular tachycardia) ?I47.1 - Supraventricular tachycardia (ICD-10) Surgical History (Updated 06/27/23 @ 15:02 by Guera Billingsley NP) History of arthroscopy of knee ?Z98.890 - Other specified postprocedural states (ICD-10) History of foot surgery ?Z98.890 - Other specified postprocedural states (ICD-10) Family History (Updated 06/27/23 @ 15:02 by Guera Billingsley NP) Other Bladder cancer Delayed recovery from anesthesia Family history of coronary artery disease Family history of hypertension Family history of myocardial infarction Social History (Updated 06/27/23 @ 14:58 by Guera Billingsley NP) Within the past year, how often did you have a drink containing alcohol: never Score interpretation: A score less than 3 is consistent with normal alcohol consumption. Smoking status: Former smoker Non-prescribed substance use: denies use Highest level of school completed/degree received: high school graduate Meds Home Medications and Allergies Home Medications ?Medication ?Instructions ?Recorded ?Confirmed ?Type trazodone 100 mg tablet 100 mg PO BEDTIME 08/15/22 06/27/23 History Allergies Allergy/AdvReac Type Severity Reaction Status Date / Time latex Allergy Rash Verified 06/27/23 14:57 Exam Narrative Exam Narrative: Constitutional: Awake, alert, comfortable, well-appearing, nontoxic, interactive, vital signs as charted Head: Normocephalic, atraumatic Neck: Supple, normal appearance, normal range of motion, no meningeal signs, no lymphadenopathy Respiratory: No respiratory distress, breath sounds clear Cardiovascular: Regular rate and rhythm, strong and regular heart tones Abdomen: Nontender, normal bowel sounds, soft, no CVA tenderness Musculoskeletal: Normal gait, no swelling or edema Skin: No rashes or induration, no lesions, only visible skin inspected Neuro: No neurological deficits, normal sensation Psychiatric: Oriented ?3, normal affect Constitutional Vital Signs, click to edit/add: Last Vital Signs Temp 97.7 F 06/27/23 15:08 Pulse 83 06/27/23 15:08 Resp 16 06/27/23 15:08 BP 98/62 06/27/23 15:08 Pulse Ox 98 06/27/23 15:08 O2 Del Method Room Air 06/27/23 15:08 Assessment and Plan Assessment and Plan (1) Missed : Plan D and C with suction scheduled with Dr. Castro 06/30/2023.
[2023-06-30] VITALS (9 sets, daily range): BP systolic 110–120; BP diastolic 70–81; PULSE 67–110; TEMP 36.2–36.4; O2SAT 95–100
[2023-06-30 11:18] LABS: Basophils Percent Auto 0.3 % (0.2-2.0); Eosinophils Percent Auto 0.4 % (0.9-7.0); Hemoglobin 12.3 g/dL (12.0-16.0); Immature Granulocytes Abs Auto 0.03 10^3/uL (0.00-0.03); Immature Granulocytes Pct Auto 0.4 % (0.0-0.5); Lymphocytes Absolute Auto 2.7 10^3/uL (1.2-3.8); Lymphocytes Percent Auto 34.1 % (20.5-60.0); Mean Corpuscular HGB Conc 32.4 g/dL (29.9-35.2); Mean Corpuscular Volume 95.7 fL (81.0-99.0); Mean Platelet Volume 9.1 fL (9.5-13.5); Monocytes Absolute Auto 0.4 10^3/uL (0.3-0.8); Monocytes Percent Auto 5.5 % (1.7-12.0); Neutrophils Absolute Auto 4.7 10^3/uL (1.4-6.5); Neutrophils Percent Auto 59.3 % (43.0-75.0); Platelet Count 316 10^3/uL (150-450); Red Blood Count 3.97 10^6/uL (4.20-5.40); Red Cell Distribution Width 12.2 % (11.0-15.0); White Blood Count 7.9 10^3/uL (4.0-11.0)
--- OUTSIDE RECORDS SUMMARY | 2023-06-30 11:35 | XMS_ITS | CCD ---
Author Organization [facility] Care Team Providers Care Horticultural Manager Name Role Phone AICHHOLZ, REAL ESTATE OFFICE SUPERVISOR SCARLETT Primary Care Unavailable PAY, DR LIN Admitting Unavailable PAY, DR LIN Attending Unavailable GRECHNY, GISELLE ROBERTSON Consulting Unavailable LUZ, DR ORDAZ Admitting Unavailable LUZ, DR ORDAZ Attending Unavailable AICHHOLZ, REAL ESTATE OFFICE SUPERVISOR SCARLETT Primary Care Unavailable LUZ, DR ORDAZ Consulting Unavailable AICHHOLZ, REAL ESTATE OFFICE SUPERVISOR SCARLETT Admitting Unavailable AICHHOLZ, REAL ESTATE OFFICE SUPERVISOR SCARLETT Attending Unavailable AICHHOLZ, REAL ESTATE OFFICE SUPERVISOR SCARLETT Primary Care Unavailable AICHHOLZ, REAL ESTATE OFFICE SUPERVISOR SCARLETT Consulting Unavailable AICHHOLZ, REAL ESTATE OFFICE SUPERVISOR SCARLETT Primary Care Unavailable DON, DR BIRD [...] Onset: 02-22-2022 Episodic Other aftercare (1 source) correction (current) use of hormonal contraceptives; Translations: [MANAGER OB HORMONAL CONTRACEPTIVES] Onset: 02-22-2022 Episodic Other aftercare (1 source) 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 When there are no FDA-approved or cleared tests available, and other criteria are met, FDA can make tests available under an emergency access mechanism called an Emergency Use Authorization (EUA). The EUA for this test is supported by the [employer] St[employer] of Health and Human Service's (HHS's) declaration [...] SARS-CoV-2. Performed By: #### C VDTB #### [facility] [address] [place] [address] Dr. Luis Virgen INFLUENZA A AND B [facility] 02-20 INFLUBNEG SEE BELOW Normal [facility] Comment on above: Result Comment: Nega tive for Flu B protein antigen. Infection due to Flu B cannot be ruled out. Flu B antigen in the sample may be below the detection limit of the test. Performed By: #### I NFLUAB #### [facility] [address] [place] [address] Dr. Luis Virgen INFLUENZA A AG Positive Abnormal NEGATIVE SEE COMMENT [facility] Comment on above: Performed By: #### I NFLUAB #### [facility] [address] [place] [address] Dr. Luis Virgen INFLUENZA B AG Negative Normal NEGATIVE SEE COMMENT [facility] Comment on above: Performed By: #### I NFLUAB #### [facility] [address] [place] [address] Dr. Luis Virgen XR CHEST 1 Von 02-20-2022 XR CHEST 1 V EXAM: CHEST 1 VIEW HISTORY: COUGH TECHNIQUE: Chest, one view. COMPARISON: None. FINDINGS: Lungs are clear. No focal consolidation, pleural effusion, or pneumothorax. Pulmonary vasculature is within normal limits. Cardiomediastinal silhouette is normal. IMPRESSION: 1. No acute cardiopulmonary disease. Electronically authenticated by: PHOEBE ALFARO Date: 2022-02-20 17:46 Normal [facility] PAP ACOG PANEL 2: 30 to 65on 11-13-2021 . . Normal [facility] Comment on above: Result Comment: Perf ormed at: WB Performed By: #### [id number] #### [facility] [address] [place] [address] Dr. Luis Virgen Age Gdln ACOG Testing 30-65 Normal [facility] Comment on above: Performed By: #### [id number] #### [facility] [address] [place] [address] Dr. Luis Virgen DIAGNOSIS: Comment Normal [facility] Comment on above: Result Comment: NEGA TIVE FOR INTRAEPITHELIAL LESION OR MALIGNANCY. Performed at: WB Performed By: #### [id number] #### [facility] [address] [place] [address] Dr. Luis Virgen HPV Aptima Negative Normal Negative [facility] Comment on above: Result Comment: This nucleic acid amplification test detects fourteen high-risk HPV types (16,18,31,33,35,39,45,51,52,56,58,59,66,68) without differentiation. Performed at: =G Performed By: #### [id number] #### [facility] [address] [place] [address] Dr. Luis Virgen Methodology: Comment Normal [facility] Comment on above: Result Comment: This liquid based ThinPrep(R) pap test was screened with the use of an image guided system. Performed at: WB Performed By: #### [id number] #### [facility] [address] [place] [address] Dr. Luis Virgen Note: Comment Normal [facility] Comment on above: Result Comment: The Pap smear is a screening test designed to aid in the detection of premalignant and malignant conditions of the uterine cervix. It is not a diagnostic procedure and should not be used as the sole means of detecting cervical cancer. Both false-positive and false-negative reports do occur. . Performed at: WB Performed By: #### [id number] #### [facility] [address] [place] [address] Dr. Luis Virgen Performed by: Comment Normal [facility] Comment on above: Result Comment: Maureen Del Cid, Hand Developer (ASCP) Performed at: WB Performed By: #### [id number] #### [facility] [address] [place] [address] Dr. Luis Virgen Specimen adequacy: Comment Normal [facility] Comment on above: Result Comment: Sati sfactory for evaluation. Endocervical and/or squamous metaplastic cells (endocervical component) are present. Performed at: WB Performed By: #### [id number] #### [facility] [address] [place] [address] Dr. Luis Virgen URon 08-20-2021 , QUAL Negative Normal NEGATIVE [facility] Comment on above: Performed By: #### P REGU #### [facility] [address] [place] [address] Dr. Luis Virgen CBC AUTO DIFFon 08-06-2021 BASO # 0.0 103/ul Normal 0.0-0.1 [facility] Comment on above: Performed By: #### C BC #### [facility] [address] [place] [address] Dr. Luis Virgen Basophils/100 WBC (Bld) 0.3 % Normal 0.2-2.0 [facility] Comment on above: Performed By: #### C BC #### [facility] [address] [place] [address] Dr. Luis Virgen EO # 0.0 103/ul Normal 0.0-0.7 [facility] Comment on above: Performed By: #### C BC #### [facility] [address] [place] [address] Dr. Luis Virgen Eosinophils/100 WBC (Bld) 0.3 % Critically low 0.9-7.0 [facility] Comment on above: Performed By: #### C BC #### [facility] [address] [place] [address] Dr. Luis Virgen Erythrocyte distribution width (RBC) [Ratio] 12.6 % Normal 11.0-15.0 [facility] Comment on above: Performed By: #### C BC #### [facility] [address] [place] [address] Dr. Luis Virgen Hematocrit (Bld) [Volume fraction] 41.5 % Normal 36.0-48.0 [facility] Comment on above: Performed By: #### C BC #### [facility] [address] [place] [address] Dr. Luis Virgen Hemoglobin (Bld) [Mass/Vol] 13.5 g/dL Normal 12.0-16.0 [facility] Comment on above: Performed By: #### C BC #### [facility] [address] [place] [address] Dr. Luis Virgen IG # 0.03 10e3/ul Normal 0.00-0.03 [facility] Comment on above: Performed By: #### C BC #### [facility] [address] [place] [address] Dr. Luis Virgen IG % 0.4 % Normal 0.0-0.5 [facility] Comment on above: Performed By: #### C BC #### [facility] [address] [place] [address] Dr. Luis Virgen LYMPH # 2.4 103/ul Normal 1.2-3.8 [facility] Comment on above: Performed By: #### C BC #### [facility] [address] [place] [address] Dr. Luis Virgen Lymphocytes/100 WBC (Bld) 31.8 % Normal 20.5-60.0 [facility] Comment on above: Performed By: #### C BC #### [facility] [address] [place] [address] Dr. Luis Virgen MANUAL DIFF REQ NO Normal [facility] Comment on above: Performed By: #### C BC #### [facility] [address] [place] [address] Dr. Luis Virgen MCH (RBC) [Entitic mass] 30.5 pg Normal 26.7-34.0 [facility] Comment on above: Performed By: #### C BC #### [facility] [address] [place] [address] Dr. Luis Virgen MCHC (RBC) [Mass/Vol] 32.5 g/dL Normal 29.9-35.2 [facility] Comment on above: Performed By: #### C BC #### [facility] [address] [id number] [address] Luis Virgen MCV (RBC) [Entitic vol] 93.9 fL Normal 81.0-99.0 [facility] Comment on above: Performed By: #### C BC #### [facility] [address] [address] [address] Luis Virgen MONO # 0.6 103/ul Normal 0.3-0.8 [facility] Comment on above: Performed By: #### C BC #### [facility] [address] [address] [address] Luis Virgen Monocytes/100 WBC (Bld) 7.4 % Normal 1.7-12.0 [facility] Comment on above: Performed By: #### C BC #### [facility] [address] [place] [address] Dr. Luis Virgen NEUT # 4.5 103/ul Normal 1.4-6.5 [facility] Comment on above: Performed By: #### C BC #### [facility] [address] [place] [address] Dr. Luis Virgen Neutrophils/100 WBC (Bld) 59.8 % Normal 43.0-75.0 [facility] Comment on above: Performed By: #### C BC #### [facility] [address] [place] [address] Dr. Luis Virgen Platelet mean volume (Bld) [Entitic vol] 10.0 fL Normal 9.5-13.5 [facility] Comment on above: Performed By: #### C BC #### [facility] [address] [place] [address] Dr. Luis Virgen PLT 337 103/ul Normal 150-450 [facility] Comment on above: Performed By: #### C BC #### [facility] [address] [place] [address] Dr. Luis Virgen RBC 4.42 106/ul Normal 4.20-5.40 [facility] Comment on above: Performed By: #### C BC #### [facility] [address] [place], [place] [id number] Dr. Luis Virgen WBC 7.6 103/ul Normal 4.0-11.0 [facility] Comment on above: Performed By: #### C BC #### [facility] [address] [place] [address] Dr. Luis Virgen FREE T4on 08-06-2021 Free T4 [Mass/Vol] 0.91 ng/dL Normal 0.76-1.46 [facility] Comment on above: Performed By: #### F T4 #### [facility] [address] [place] [address] Dr. Luis Virgen LIPID PROFILEon 08-06-2021 CHOL-HDL RATIO NORM SEE BELOW Normal [facility] Comment on above: Result Comment: 3.3 - 4.4 LOW RISK 4.4 - 7.1 AVERAGE RISK 7.1 - 11.0 MODERATE RISK >11.0 HIGH RISK Performed By: #### C MP, TSH, LIPID #### [facility] [address] [place] [address] Dr. Luis Virgen Cholesterol [Mass/Vol] 154 mg/dL Normal <=200 [facility] Comment on above: Performed By: #### C MP, TSH, LIPID #### [facility] [address] [place] [address] Dr. Luis Virgen Cholesterol in HDL [Mass/Vol] 35 mg/dL Critically low 40-60 [facility] Comment on above: Performed By: #### C MP, TSH, LIPID #### [facility] [address] [place] [address] Dr. Luis Virgen Cholesterol in LDL [Mass/Vol] 80.8 mg/dL Normal [facility] Comment on above: Performed By: #### C MP, TSH, LIPID #### [facility] [address] [place] [address] Dr. Luis Virgen Cholesterol.total/ Cholesterol in HDL [Mass ratio] 4.4 {ratio} Normal [facility] Comment on above: Performed By: #### C MP, TSH, LIPID #### [facility] [address] [place] [address] Dr. Luis Virgen HDL NORMAL > or = 60 mg/dl - LO W CARDIOVASCULAR RISK <40 mg/dl - HIGH CARDIOVASCULAR RISK Normal [facility] Comment on above: Performed By: #### C MP, TSH, LIPID #### [facility] [address] [address] [address] Luis Virgen LDL CALC NORMAL SEE BELOW Normal [facility] Comment on above: Result Comment: <100 mg/dl OPTIMAL 100 - 129 mg/dl NEAR OR ABOVE OPTIMAL 130 - 159 mg/dl BORDERLINE HIGH 160 - 189 mg/dl HIGH >190 mg/dl VERY HIGH Performed By: #### C MP, TSH, LIPID #### [facility] [address] [address] [address] Luis Virgen Triglyceride [Mass/Vol] 191 mg/dL Critically high <=150 [facility] Comment on above: Performed By: #### C MP, TSH, LIPID #### [facility] [address] [address] [address] Luis Virgen VLDL CALC 38.2 mg/dL Normal [facility] Comment on above: Performed By: #### C MP, TSH, LIPID #### [facility] [address] [address] [address] Luis Virgen PROF 14(COMP METB)on 022 Albumin [Mass/Vol] 4.1 g/dL Normal 3.4-5.0 [facility] Comment on above: Performed By: #### C MP, TSH, LIPID #### [facility] [address] [address] [address] Luis Virgen Albumin/Globulin [Mass ratio] 1.2 {ratio} Normal [facility] Comment on above: Performed By: #### C MP, TSH, LIPID #### [facility] [address] [address] [address] Luis Virgen ALP [Catalytic activity/Vol] 73 U/L Normal 46-116 [facility] Comment on above: Performed By: #### C MP, TSH, LIPID #### [facility] [address] [address] [address] Luis Virgen ALT [Catalytic activity/Vol] 24 U/L Normal 14-59 [facility] Comment on above: Performed By: #### C MP, TSH, LIPID #### [facility] [address] [address] [address] Luis Virgen Anion gap [Moles/Vol] 13.2 mmol/L Normal [facility] Comment on above: Performed By: #### C MP, TSH, LIPID #### [facility] [address] [address] [address] Luis Virgen AST [Catalytic activity/Vol] 11 U/L Critically low 15-37 [facility] Comment on above: Performed By: #### C MP, TSH, LIPID #### [facility] [address] [place] [address] Dr. Luis Virgen Bilirubin [Mass/Vol] 0.8 mg/dL Normal 0.2-1.0 [facility] Comment on above: Performed By: #### C MP, TSH, LIPID #### [facility] [address] [place] [address] Dr. Luis Virgen Calcium [Mass/Vol] 8.9 mg/dL Normal 8.5-10.1 [facility] Comment on above: Performed By: #### C MP, TSH, LIPID #### [facility] [address] [place] [address] Dr. Luis Virgen Chloride [Moles/Vol] 103 mmol/L Normal 98-107 [facility] Comment on above: Performed By: #### C MP, TSH, LIPID #### [facility] [address] [place] [address] Dr. Luis Virgen CO2 [Moles/Vol] 27.5 mmol/L Normal 21.0-32.0 [facility] Comment on above: Performed By: #### C MP, TSH, LIPID #### [facility] [address] [place] [address] Dr. Luis Virgen Creatinine [Mass/Vol] 0.71 mg/dL Normal 0.55-1.02 [facility] Comment on above: Performed By: #### C MP, TSH, LIPID #### [facility] [address] [place] [address] Dr. Luis Virgen EGFR-AF GUYANESE >60 Normal >=60 [facility] Comment on above: Performed By: #### C MP, TSH, LIPID #### [facility] [address] [place] [address] Dr. Luis Virgen EGFR-NON AF GUYANESE >60 Normal >=60 [facility] Comment on above: Performed By: #### C MP, TSH, LIPID #### [facility] [address] [place] [address] Dr. Luis Virgen Globulin (S) [Mass/Vol] 3.5 g/dL Normal [facility] Comment on above: Performed By: #### C MP, TSH, LIPID #### [facility] [address] [place] [address] Dr. Luis Virgen Glucose [Mass/Vol] 101 mg/dL Normal 74-106 [facility] Comment on above: Performed By: #### C MP, TSH, LIPID #### [facility] [address] [place] [address] Dr. Luis iVrgen Potassium [Moles/Vol] 4.7 mmol/L Normal 3.5-5.1 [facility] Comment on above: Performed By: #### C MP, TSH, LIPID #### [facility] [address] [place] [address] Dr. Luis Virgen Protein [Mass/Vol] 7.6 g/dL Normal 6.4-8.[address] [facility] Comment on above: Performed By: #### C MP, TSH, LIPID #### [facility] [address] [place] [address] Dr. Luis Virgen Sodium [Moles/Vol] 139 mmol/L Normal 136-[address] [facility] Comment on above: Performed By: #### C MP, TSH, LIPID #### [facility] [address] [place] [address] Dr. Luis Virgen Urea nitrogen [Mass/Vol] 9.0 mg/dL Normal 7.0-18.0 [facility] Comment on above: Performed By: #### C MP, TSH, LIPID #### [facility] [address] [place] [address] Dr. Luis Virgen Urea nitrogen/Creatinin e [Mass ratio] 12.7 mg/mg Normal [facility] Comment on above: Performed By: #### C MP, TSH, LIPID #### [facility] [address] [place], [place] [address] Dr. Luis Virgen TSHon 08-06-2021 TSH 0.924 uIU/mL Normal 0.358-3.740 [facility] Comment on above: Performed By: #### C MP, TSH, LIPID #### [facility] [address] [place], [place] [address] Dr. Luis Virgen TSH RANGE SEE BELOW Normal [facility] Comment on above: Result Comment: <0.3 4 UIU/ml HYPERTHYROID 0.34-5.60 UIU/ml EUTHYROID >5.60 UIU/ml HYPOTHYROID Performed By: #### C MP, TSH, LIPID #### [facility] [address] [address] [address] Luis Virgen Encounters Encounter Date Encounter Type Care Provider Facility Start: 05-26-2023 End: 05-26-2023 ambulatory SCARLETT MILLAN Not Available Start: 02-20-2022 End: 02-20-2022 ambulatory MARLYN MILLAN Facility:[facility] Start: 11-06-2021 End: 11-06-[address] ORLIN ESCOBAR Facility:[facility] Start: 08-20-2021 End: 08-20-2021 ambulatory MARLYN MILLAN Facility:[facility] Start: 08-06-2021 End: 08-07-2021 ambulatory MARLYN MILLAN Facility:[facility] Payers Date Payer Category Payer Unknown [id number] 2.16.84 [id number] 1988 Unknown [id number] 2.16.84 [id number] 1988 Unknown [id number] 2.16.84 [id number] 1988 Unknown [id number] 2.16.84 [id number] 1988 Unknown [id number] 2.16.84 [id number] 1959 Unknown [id number] Summary Purpose Family History No Family History Records FoundNo Family History Records Found Advance Directives No Advanced Directives Records FoundNo Advanced Directives Records Found Additional Source Comments INFORMATION SOURCE (unrecogn ized section and content) DATE CREATED AUTHOR 02/22/2022 [facility] DATE CREATED AUTHOR AUTHOR'S ORGANIZ ATJEANNIE 05/27/2023 [facility] FOR RECORDS PERTAINING TO PATIENTS [...] BE BASED ON THE PRIMARY CLINICAL RECORDS. [facility] [employer] provides no warranty or guarantee of the accuracy or completeness of information in this document.
[2023-06-30] MEDS: LACTATED RINGER'S SOLUTION 1,000 ML 50 ML IV (11:48)
[2023-06-30 12:01] LABS: HCG Quantitative 10352 mIU/mL
--- NOTE | 2023-06-30 13:13 | P.ON_ITS ---
Brief Operative Note Date of procedure: 06/30/23 Pre-op diagnosis general: missed Post-op diagnosis: same as pre-op Procedure: NAME OF PROCEDURE: [D&C suction ] PROCEDURE: The patient was taken back to the OR where she was given general anesthesia without difficulty. She was then placed in dorsal lithotomy position, prepped and draped in the normal sterile fashion. A weighted speculum was placed in the patient's vagina and the anterior lip of the cervix was identified and grasped with a single-tooth tenaculum. The patient was then gently dilated using Hegar dilators after we had sounded roughly to 12 cm. The suction curette was then tested. The suction curette was then placed in the patient's uterus and products of conception were removed using an 10-Greenlandic suction curette. ?Excellent hemostasis was noted. The patient tolerated the procedure well. Sponge, lap, and needle counts were correct x 2. All instruments were then removed from the patient's vagina. The patient was taken to the Recovery Room in stable conditio n. ?? Anesthesia: MAC Surgeon: Slava Castro Estimated blood loss (mL): 50 Pathology: other (poc) Condition: stable Disposition: PACU Urinary Catheter Management Urinary Catheter Management Urethral: Cath placed during this visit: no
[2023-06-30] MEDS: LACTATED RINGER'S SOLUTION 1,000 ML 150 ML IV (14:02)
--- NOTE | 2023-06-30 14:52 | PC.NURSE ---
Up to bathroom and voids clear yellow without difficulty; no vaginal drainage noted
== END 2023-06-30 14:35 | disposition home or self-care (01) ==
PROVIDERS: PCP Nurse Practitioner; Visit Provider Obstetrics & Gynecology
PROC: (CPT 1965; principal; 2023-06-30 12:15)
DX: O02.1 Missed abortion (principal); J30.2 Other seasonal allergic rhinitis; Z87.891 Personal history of nicotine dependence
CPT/HCPCS: 59820; 36415; 84702; 85025; 86850; 86900; 86901; 88305; G0463; J1094; J2704

== ENCOUNTER 2023-07-14 16:18 | Outpatient (OUT) | payer OTHER, SELFPAY ==
[2023-07-14 17:17] LABS: HCG Quantitative 16 mIU/mL
== END 2023-07-14 16:19 | disposition home or self-care (01) ==
LOC: LAB 16:21
PROVIDERS: PCP Nurse Practitioner; Visit Provider Physician Assistant
DX: Z98.890 Other specified postprocedural states (principal)
CPT/HCPCS: 36415; 84702

== ENCOUNTER 2023-07-22 12:53 | Outpatient (OUT) | payer OTHER, SELFPAY ==
[2023-07-22 13:52] LABS: HCG Quantitative 4 mIU/mL
== END 2023-07-22 12:54 | disposition home or self-care (01) ==
LOC: LAB 12:55
PROVIDERS: PCP Nurse Practitioner; Visit Provider Physician Assistant
DX: O03.9 Complete or unspecified spontaneous abortion without complication (principal); Z98.890 Other specified postprocedural states
CPT/HCPCS: 36415; 84702

== ENCOUNTER 2023-12-10 19:28 | Outpatient (REF) | payer OTHER, SELFPAY ==
--- OUTSIDE RECORDS SUMMARY | 2023-12-10 19:32 | XMS_ITS | CCD ---
Author Organization [facility] Inform ion Partnership [facility] Care Team Providers Care Sock Lining Stitcher Name Role Phone MONTY NETEZZA ARCHITECT SCARLETT Primary Care Unavailable PAY, DR LIN Admitting Unavailable PAY, DR LIN Attending Unavailable GISELLE RESTREPO Consulting Unavailable LUZ, DR ORDAZ Admitting Unavailable LUZ, DR ORDAZ Attending Unavailable AICHHOLZ, NETEZZA ARCHITECT SCARLETT Primary Care Unavailable LUZ, DR ORDAZ Consulting Unavailable AICHHOLZ, MARLYN SCARLETT Admitting Unavailable AICHHOLZ, NETEZZA ARCHITECT SCARLETT Attending Unavailable AICHHOLZ, NETEZZA ARCHITECT SCARLETT Primary Care Unavailable AICHHOLZ, NETEZZA ARCHITECT SCARLETT Consulting Unavailable AICHHOLZ, NETEZZA ARCHITECT SCARLETT Primary Care Unavailable DON, DR BIRD Admitting Unavailable DON, DR BIRD Attending Unavailable GISELLE RESTREPO Consulting Unavailable PHOEBE ALFARO Consulting Unavailable Dar Brody Primary Care Unavailable Orlin Castro Attending Unavailable Orlin Castro Admitting Unavailable MD Dar Brody Primary Care Provider [phone] Orlin Castro Attending Provider [phone] SCARLETT MILLAN Attending Unavailable SHADE JACKSON Attending Unavailable SCARLETT MILLAN Attending Unavailable Medications Current Medications Medication Drug Class(es) Dates Sig (Normalized) Sig (Original) levonorgestrel 0.093388 mg/hr intrauterine system (1 source) Progestin, Progestin-containi ng Intrauterine Device Start: 02-06-2017 Levonorgestrel (Mirena) 20 mcg/24 hr (5 years) Intrauterine Device Active 1 INSERT INTRAUTERI As Directed February 06, 2017 1:00am naproxen 500 mg oral tablet (1 source) Nonsteroidal Anti-inflammatory Drug Start: 03-05-2019 take 1 tablet by mouth twice daily Naproxen (Naprosyn) 500 mg tablet Active 500 MG PO Twice daily March 05, 2019 1:00am Completed/Discontinued Medications Medication Drug Class(es) Dates Sig (Normalized) Sig (Original) promethazine hydrochloride 25 mg oral tablet (1 source) Phenothiazine Start: 02-06-2017 End: 05-16-2017 take 25 mg by mouth every six hours Promethazine Discontinued 25 MG PO Q6H February 06, 2017 1:00am May 16, 2017 2:07am Problems Active Problems Problem Classification Problem Date Documented Da te Episodic/Chronic Headache; including migraine (1 source) Migraine 05-16-2017 Chronic Influenza (1 source) Influenza due to other identified influenza virus with other respiratory manifestations; Translations: [FLU D/T OTH ID FLU VIR OTH RSP MANF] Onset: 02-22-2022 Episodic Other aftercare (1 source) skilled nursing (current) use of hormonal contraceptives; Translations: [GLOBAL ANALYTICS HEAD HORMONAL CONTRACEPTIVES] Onset: 02-22-2022 Episodic Other aftercare (1 source) Other fdc (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 therapy; Translations: [OTH SHELTER CURRENT DRUG THERAPY] Onset: 02-22-2022 Episodic Other bone disease and musculoskeletal deformities (1 source) Costal chondritis; 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 [Tietze]] 03-05-2019 Episodic Other nutritional; endocrine; and metabolic disorders [...] Results Test Name Value Interpretation Reference Range Facility [facility] 06-30-2023 L Specimen: [id number] Received: 07/01/23 Status: WEN [place] Num: [id number] Spec Type: Surgical Subm Dr: Orlin Castro Tissues: A Products of Conception - Spontaneous or Missed (POC) Procedures: HE/3, Gross/Micro L4 Age/ Patient Sex Location Account Attending Physician Roxanne Marshall 32/F LABELL [id number] Orlin Castro SPEC NUM: [id number] RECD: 07/01/23 STATUS: WEN [place]UVALL NUM: [id number] [place]: 06/30/[address]: Orlin Castro ENTERED: 07/01/23 [facility] DR: Rosey,Lab SPEC TYPE: Surgical DEPT: [address] ORDERED: HE/3, Gross/Micro L4 ORDERED: HE/3, Gross/Micro L4 Pathological Diagnosis Uterine contents, suction D C: -Multiple decidual fragments and the good admixed portions of immature chorionic villi and membrane with patchy edematous degeneration of the villous stroma, consistent with missed of the hydrops abortus type -Only occasional nucleated RBC noted in membranes -No obvious atypical trophoblastic proliferation, or any other features of molar degeneration observed Gross Description Received in formalin, labeled with the patient's name, date of and products of conception is an aggregate of harman-pink hemorrhagic tissue along with clotted blood and mucus within a cloth collection device measuring in aggregate 5.1 x 4.4 x 0.6 cm. No parts are identified. There is a 1.8 x 1.5 cm area of spongy harman tissue consistent with villous tissue. Visual Education Teacher sections are submitted in A1?A3 to include the villous tissue in A1. Clinical history: Missed TW Specimen: [id number] Received: 07/01/23 Status: WEN [place] Num: [id number] Spec Type: Surgical Subm Dr: Orlin Castro Tissues: A Products of Conception - Spontaneous or Missed (POC) Procedures: HE/3, Gross/Micro L4 Patient: Roxanne Marshall [id number] (Continued) Specimen: [id number] Received: 07/01/23 (Continued) Signed (signature on file) Shen Virgen MD 07/02/23 1859 Specimen: [id number] Received: 07/01/23 Status: WEN [place] Num: [id number] Spec Type: Surgical Subm Dr: Orlin Castro Tissues: A Products of Conception - Spontaneous or Missed (POC) Procedures: , Meghan/Maksim L4 Patient: Roxanne Marshall [id number] (Continued) Specimen: [id number] Received: 07/01/23 (Continued) CPT Codes 78698 Specimen: [id number] Received: 07/01/23-1305 Status: WEN [place] Num: [id number] Spec Type: Surgical Subm Dr: Orlin Castro Tissues: A Products of Conception - Spontaneous or Missed (POC) Procedures: HE/3, Gross/Maksim L4 Patient: Roxanne Marshall [id number] (Continued) Signed (signature on file) Shen Virgen MD 07/02/231858 Normal [facility] Covid-19 PCR (CVDTB)on 01-25 SARS-CoV-2 (COVID-19) RNA JUAN+probe Ql (Unsp spec) Not detected Normal NOT DETECTED [facility] Comment on above: Result Comment: This test is not yet approved or cleared by the [place] FDA. When there are no FDA-approved or cleared tests available, and other criteria are met, FDA can make tests available under an emergency access mechanism called an Emergency Use Authorization (EUA). The EUA for this test is supported by the [place] of Health and Human Service's (HHS's) declaration [...] SARS-CoV-2. Performed By: #### C VDTB #### [facility] [address] [place] [address] Dr. Luis Virgen INFLUENZA A AND B [facility] SEE BELOW Normal [facility] Comment on above: Result Comment: Nega tive for Flu B protein antigen. Infection due to Flu B cannot be ruled out. Flu B antigen in the sample may be below the detection limit of the test. Performed By: #### I NFLUAB #### [facility] [address] [place] [address] Dr. Luis Virgen INFLUENZA A AG Positive Abnormal NEGATIVE SEE COMMENT [facility] Comment on above: Performed By: #### I NFLUAB #### [facility] [address] [place] [address] Dr. Luis Virgen INFLUENZA B AG Negative Normal NEGATIVE SEE COMMENT [facility] Comment on above: Performed By: #### I NFLUAB #### [facility] [address] [place] [address] Dr. Lusi Virgen XR CHEST 1 Von 02-20-2022 XR CHEST 1 V EXAM: CHEST 1 VIEW HISTORY: COUGH TECHNIQUE: Chest, one view. COMPARISON: None. FINDINGS: Lungs are clear. No focal consolidation, pleural effusion, or pneumothorax. Pulmonary vasculature is within normal limits. Cardiomediastinal silhouette is normal. IMPRESSION: 1. No acute cardiopulmonary disease. Electronically authenticated by: PHOEBE ALFARO Date: 2022-02-20 17:[address] [facility] PAP ACOG PANEL 2: 30 to 65on 11-13-2021 . . Normal [facility] Comment on above: Result Comment: Perf ormed at: WB Performed By: #### [id number] #### [facility] [address] [address] [address] Luis Virgen Age Gdln ACOG Testing 30-65 Normal [facility] Comment on above: Performed By: #### [id number] #### [facility] [address] [address] [address] Luis Virgen DIAGNOSIS: Comment Normal [facility] Comment on above: Result Comment: NEGA TIVE FOR INTRAEPITHELIAL LESION OR MALIGNANCY. Performed at: WB Performed By: #### [id number] #### [facility] [address] [address] [address] Luis Virgen HPV Aptima Negative Normal Negative [facility] Comment on above: Result Comment: This nucleic acid amplification test detects fourteen high-risk HPV types (16,18,31,33,35,39,45,51,52,56,58,59,66,68) without differentiation. Performed at: =G Performed By: #### [id number] #### [facility] [address] [address] [address] Luis Virgen Methodology: Comment [facility] Comment on above: Result Comment: This liquid based ThinPrep(R) pap test was screened with the use of an image guided system. Performed at: WB Performed By: #### [id number] #### [facility] [address] [address] [address] Luis Virgen Note: Comment Normal [facility] Comment on above: Result Comment: The Pap smear is a screening test designed to aid in the detection of premalignant and malignant conditions of the uterine cervix. It is not a diagnostic procedure and should not be used as the sole means of detecting cervical cancer. Both false-positive and false-negative reports do occur. . Performed at: WB Performed By: #### [id number] #### [facility] [address] [address] [address] Luis Virgen Performed by: Comment Normal [facility] Comment on above: Result Comment: Maureen Del Cid, Intelligence Agent (ASCP) Performed at: WB Performed By: #### [id number] #### [facility] [address] [place] [address] Dr. Luis Virgen Specimen adequacy: Comment Normal [facility] Comment on above: Result Comment: Sati sfactory for evaluation. Endocervical and/or squamous metaplastic cells (endocervical component) are present. Performed at: WB Performed By: #### [id number] #### [facility] [address] [place] [address] Dr. Luis Virgen URon 08-20-2021 , QUAL Negative Normal NEGATIVE [facility] Comment on above: Performed By: #### P REGU #### [facility] [address] [place] [address] Dr. Luis Virgen CBC AUTO DIFFon 08-06-2021 BASO # 0.0 103/ul Normal 0.0-0.1 [facility] Comment on above: Performed By: #### C BC #### [facility] [address] [place] [address] Dr. Luis Virgen Basophils/100 WBC (Bld) 0.3 % Normal 0.2-2.0 [facility] Comment on above: Performed By: #### C BC #### [facility] [address] [place] [address] Dr. Luis Virgen EO # 0.0 103/ul Normal 0.0-0.7 [facility] Comment on above: Performed By: #### C BC #### [facility] [address] [place] [address] Dr. Luis Virgen Eosinophils/100 WBC (Bld) 0.3 % Critically low 0.9-7.0 [facility] Comment on above: Performed By: #### C BC #### [facility] [address] [place] [address] Dr. Luis Virgen Erythrocyte distribution width (RBC) [Ratio] 12.6 % Normal 11.0-15.0 [facility] Comment on above: Performed By: #### C BC #### [facility] [address] [place] [address] Dr. Luis Virgen Hematocrit (Bld) [Volume fraction] 41.5 % Normal 36.0-48.0 [facility] Comment on above: Performed By: #### C BC #### [facility] [address] [place] [address] Dr. Luis Virgen Hemoglobin (Bld) [Mass/Vol] 13.5 g/dL Normal 12.0-16.0 [facility] Comment on above: Performed By: #### C BC #### [facility] [address] [place] [address] Dr. Luis Virgen IG # 0.03 10e3/ul Normal 0.00-0.03 [facility] Comment on above: Performed By: #### C BC #### [facility] [address] [place] [address] Dr. Luis Virgen IG % 0.4 % Normal 0.0-0.5 [facility] Comment on above: Performed By: #### C BC #### [facility] [address] [place] [address] Dr. Luis Virgen LYMPH # 2.4 103/ul Normal 1.2-3.8 [facility] Comment on above: Performed By: #### C BC #### [facility] [address] [place] [address] Dr. Luis Virgen Lymphocytes/100 WBC (Bld) 31.8 % Normal 20.5-60.0 [facility] Comment on above: Performed By: #### C BC #### [facility] [address] [place] [address] Dr. Luis Virgen MANUAL DIFF REQ NO Normal [facility] Comment on above: Performed By: #### C BC #### [facility] [address] [place] [address] Dr. Luis Virgen MCH (RBC) [Entitic mass] 30.5 pg Normal 26.7-34.0 [facility] Comment on above: Performed By: #### C BC #### [facility] [address] [place], [place] [id number] Dr. Luis Virgen MCHC (RBC) [Mass/Vol] 32.5 g/dL Normal 29.9-35.[address] [facility] Comment on above: Performed By: #### C BC #### [facility] [address] [place] [address] Dr. Luis Virgen MCV (RBC) [Entitic vol] 93.9 fL Normal 81.0-99.[address] [facility] Comment on above: Performed By: #### C BC #### [facility] [address] [place] [address] Dr. Luis Virgen MONO # 0.6 103/ul Normal 0.3-0.[address] [facility] Comment on above: Performed By: #### C BC #### [facility] [address] [place] [address] Dr. Luis Virgen Monocytes/100 WBC (Bld) 7.4 % Normal 1.7-12.[address] [facility] Comment on above: Performed By: #### C BC #### [facility] [address] [place] [address] Dr. Luis Virgen NEUT # 4.5 103/ul Normal 1.4-6.[address] [facility] Comment on above: Performed By: #### C BC #### [facility] [address] [place] [address] Dr. Luis Virgen Neutrophils/100 WBC (Bld) 59.8 % Normal 43.0-75.[address] [facility] Comment on above: Performed By: #### C BC #### [facility] [address] [place] [address] Dr. Luis Virgen Platelet mean volume (Bld) [Entitic vol] 10.0 fL Normal 9.5-13.[address] [facility] Comment on above: Performed By: #### C BC #### [facility] [address] [place] [address] Dr. Luis Virgen PLT 337 103/ul Normal 150-[address] [facility] Comment on above: Performed By: #### C BC #### [facility] [address] [place] [address] Dr. Luis Virgen RBC 4.42 106/ul Normal 4.20-5.40 [facility] Comment on above: Performed By: #### C BC #### [facility] [address] [place] [address] Dr. Luis Virgen WBC 7.6 103/ul Normal 4.0-11.0 [facility] Comment on above: Performed By: #### C BC #### [facility] [address] [place] [address] Dr. Luis Virgen FREE T4on 08-06-2021 Free T4 [Mass/Vol] 0.91 ng/dL Normal 0.76-1.46 [facility] Comment on above: Performed By: #### F T4 #### [facility] [address] [place] [address] Dr. Luis Virgen LIPID PROFILEon 08-06-2021 CHOL-HDL RATIO NORM SEE BELOW Normal [facility] Comment on above: Result Comment: 3.3 - 4.4 LOW RISK 4.4 - 7.1 AVERAGE RISK 7.1 - 11.0 MODERATE RISK >11.0 HIGH RISK Performed By: #### C MP, TSH, LIPID #### [facility] [address] [place] [address] Dr. Luis Virgen Cholesterol [Mass/Vol] 154 mg/dL Normal <=200 [facility] Comment on above: Performed By: #### C MP, TSH, LIPID #### [facility] [address] [place] [address] Dr. Luis Virgen Cholesterol in HDL [Mass/Vol] 35 mg/dL Critically low 40-60 [facility] Comment on above: Performed By: #### C MP, TSH, LIPID #### [facility] [address] [place] [address] Dr. Luis Virgen Cholesterol in LDL [Mass/Vol] 80.8 mg/dL Normal [facility] Comment on above: Performed By: #### C MP, TSH, LIPID #### [facility] [address] [place] [address] Dr. Luis Virgen Cholesterol.total/ Cholesterol in HDL [Mass ratio] 4.4 {ratio} Normal [facility] Comment on above: Performed By: #### C MP, TSH, LIPID #### [facility] [address] [address] [address] Luis Virgen HDL NORMAL > or = 60 mg/dl - LO W CARDIOVASCULAR RISK <40 mg/dl - HIGH CARDIOVASCULAR RISK Normal [facility] Comment on above: Performed By: #### C MP, TSH, LIPID #### [facility] [address] [address] [address] Luis Virgen LDL CALC NORMAL SEE BELOW Normal [facility] Comment on above: Result Comment: <100 mg/dl OPTIMAL 100 - 129 mg/dl NEAR OR ABOVE OPTIMAL 130 - 159 mg/dl BORDERLINE HIGH 160 - 189 mg/dl HIGH >190 mg/dl VERY HIGH Performed By: #### C MP, TSH, LIPID #### [facility] [address] [address] [address] Luis Virgen Triglyceride [Mass/Vol] 191 mg/dL Critically high <=150 [facility] Comment on above: Performed By: #### C MP, TSH, LIPID #### [facility] [address] [address] [address] Luis Virgen VLDL CALC 38.2 mg/dL Normal [facility] Comment on above: Performed By: #### C MP, TSH, LIPID #### [facility] [address] [address] [address] Luis Virgen PROF 14(COMP METB)on 022 Albumin [Mass/Vol] 4.1 g/dL Normal 3.4-5.0 [facility] Comment on above: Performed By: #### C MP, TSH, LIPID #### [facility] [address] [address] [address] Luis Virgen Albumin/Globulin [Mass ratio] 1.2 {ratio} Normal [facility] Comment on above: Performed By: #### C MP, TSH, LIPID #### [facility] [address] [address] [address] Luis Virgen ALP [Catalytic activity/Vol] 73 U/L Normal 46-116 [facility] Comment on above: Performed By: #### C MP, TSH, LIPID #### [facility] [address] [address] [address] Luis Virgen ALT [Catalytic activity/Vol] 24 U/L Normal 14-59 [facility] Comment on above: Performed By: #### C MP, TSH, LIPID #### [facility] [address] [address] [address] Luis Virgen Anion gap [Moles/Vol] 13.2 mmol/L Normal [facility] Comment on above: Performed By: #### C MP, TSH, LIPID #### [facility] [address] [address] [address] Luis Virgen AST [Catalytic activity/Vol] 11 U/L Critically low 15-37 [facility] Comment on above: Performed By: #### C MP, TSH, LIPID #### [facility] [address] [address] [address] Luis Virgen Bilirubin [Mass/Vol] 0.8 mg/dL Normal 0.2-1.0 [facility] Comment on above: Performed By: #### C MP, TSH, LIPID #### [facility] [address] [address] [address] Luis Virgen Calcium [Mass/Vol] 8.9 mg/dL Normal 8.5-10.1 [facility] Comment on above: Performed By: #### C MP, TSH, LIPID #### [facility] [address] [address] [address] Luis Virgen Chloride [Moles/Vol] 103 mmol/L Normal 98-107 [facility] Comment on above: Performed By: #### C MP, TSH, LIPID #### [facility] [address] [address] [address] Luis Virgen CO2 [Moles/Vol] 27.5 mmol/L Normal 21.0-32.0 [facility] Comment on above: Performed By: #### C MP, TSH, LIPID #### [facility] [address] [address] [address] Luis Virgen Creatinine [Mass/Vol] 0.71 mg/dL Normal 0.55-1.02 [facility] Comment on above: Performed By: #### C MP, TSH, LIPID #### [facility] [address] [address] [address] Luis Virgen EGFR-AF EGYPTIAN >60 Normal >=60 [facility] Comment on above: Performed By: #### C MP, TSH, LIPID #### [facility] [address] [address] [address] Luis Virgen EGFR-NON AF EGYPTIAN >60 Normal >=60 [facility] Comment on above: Performed By: #### C MP, TSH, LIPID #### [facility] [address] [address] [address] Luis Virgen Globulin (S) [Mass/Vol] 3.5 g/dL Normal [facility] Comment on above: Performed By: #### C MP, TSH, LIPID #### [facility] [address] [place] [address] Dr. Luis Virgen Glucose [Mass/Vol] 101 mg/dL Normal 74-106 [facility] Comment on above: Performed By: #### C MP, TSH, LIPID #### [facility] [address] [address] [address] Luis Virgen Potassium [Moles/Vol] 4.7 mmol/L Normal 3.5-5.1 [facility] Comment on above: Performed By: #### C MP, TSH, LIPID #### [facility] [address] [address] [address] Luis Virgen Protein [Mass/Vol] 7.6 g/dL Normal 6.4-8.2 [facility] Comment on above: Performed By: #### C MP, TSH, LIPID #### [facility] [address] [place] [address] Dr. Luis Virgen Sodium [Moles/Vol] 139 mmol/L Normal 136-145 [facility] Comment on above: Performed By: #### C MP, TSH, LIPID #### [facility] [address] [address] [address] Luis Virgen Urea nitrogen [Mass/Vol] 9.0 mg/dL Normal 7.0-18.0 [facility] Comment on above: Performed By: #### C MP, TSH, LIPID #### [facility] [address] [address] [address] Luis Virgen Urea nitrogen/Creatinin e [Mass ratio] 12.7 mg/mg Normal [facility] Comment on above: Performed By: #### C MP, TSH, LIPID #### [facility] [address] [address] [address] Luis Virgen TSHon 08-06-2021 TSH 0.924 uIU/mL Normal 0.358-3.740 [facility] Comment on above: Performed By: #### C MP, TSH, LIPID #### [facility] [address] [place] [address] Dr. Luis Virgen TSH RANGE SEE BELOW Normal [facility] Comment on above: Result Comment: <0.3 4 UIU/ml HYPERTHYROID 0.34-5.60 UIU/ml EUTHYROID >5.60 UIU/ml HYPOTHYROID Performed By: #### C MP, TSH, LIPID #### [facility] [address] [address] [address] Luis Virgen Encounters Encounter Date Encounter Type Care Provider Facility Start: 09-01-2023 End: 09-01-2023 ambulatory SCARLETT AICHHOLZ Not Available Start: 07-14-2023 End: 07-14-2023 ambulatory SHADE JACKSON Not Available Start: 06-30-2023 End: 06-30-2023 ambulatory Dar Brody Facility:[facility] Start: 06-30-2023 End: 06-30-2023 ambulatory MD Dar Brody Work Phone: [facility] Work Phone: Start: 06-30-2023 End: 06-30-2023 Departed Referred MD Dar Brody Work Phone: [facility] Start: 05-26-2023 End: 05-26-2023 ambulatory SCARLETT AICHHOLZ Not Available Start: 02-20-2022 End: 02-20-2022 ambulatory MARLYN MILLAN Facility:[facility] Start: 11-06-2021 End: 11-06-[address] ORLIN CASTRO Facility:[facility] Start: 08-20-2021 End: 08-20-2021 ambulatory MARLYN MILLAN Facility:[facility] Start: 08-06-2021 End: 08-07-2021 ambulatory MARLYN MILLAN Facility:[facility] Payers Date Payer Category Payer Self-pay 1988 Unknown [id number] 1988 Unknown [id number] 1988 Unknown [id number] 1988 Unknown [id number] 1988 Unknown [id number] 1988 Unknown [id number] 1990 Unknown [id number] 1959 Unknown [id number] Private Health Insurance [employer] [id number] Unknown [id number] Social History Date Type Detail Facility [facility]: [facility] Start: 1990 Sex Assigned At Female [facility] Evaluation note Note Date & Type Note Facility Evaluation note No assessment information availa [facility] Work Phone: Summary Purpose Family History No Family History Records FoundNo Family History Records FoundNo Family History Records Found Advance Directives No Advanced Directives Records Found Advance Directive Response Recorded Date/ Time Advance Directives No January 3:45am Additional Source Comments INFORMATION SOURCE (unrecogn ized section and content) DATE CREATED AUTHOR 02/22/2022 [facility] DATE CREATED AUTHOR AUTHOR'S ORGANIZ ATION 07/03/2023 [facility] DATE CREATED AUTHOR AUTHOR'S ORGANIZ ATION 09/02/2023 [facility] [employer] Care Teams (unrecognized sec tion and content) Team Status: Active Member Role Status Dates Dar Brody MD Primary Care Provider Active Team Status: Inactive Member Role Status Dates Dar Brody MD Primary Care Provider Active Start: June 30, 2023 End: June 30, 2023 Orlin Castro Attending Provider Active Start: Viky brewer 2023 End: June 30, 2023 Goals (unrecognized section and content) Goals may be documented in a n alternate section FOR RECORDS PERTAINING TO PATIENTS WHO ARE [...] BE BASED ON THE PRIMARY CLINICAL RECORDS. [facility] [employer] [facility] provides no warranty or guarantee of the accuracy or completeness of information in this document.
== END 2023-12-10 19:29 | disposition home or self-care (01) ==
LOC: LAB 19:28
PROVIDERS: PCP Nurse Practitioner; Visit Provider Obstetrics & Gynecology
DX: Z01.419 Encounter for gynecological examination (general) (routine) without abnormal findings (principal)
CPT/HCPCS: 87624; 88175

== ENCOUNTER 2024-01-19 16:33 | Outpatient (OUT) | payer OTHER, SELFPAY ==
--- OUTSIDE RECORDS SUMMARY | 2024-01-19 16:39 | XMS_ITS | CCD ---
Author Organization [facility] Inform ion Partnership [facility] Care Team Providers Care Envelope Folder Name Role Phone AICHHOLZ, COMPUTER PROGRAMMING MANAGER АННА Primary Care Unavailable PAY, DR LIN Admitting Unavailable PAY, DR LIN Attending Unavailable GISELLE RESTREPO Consulting Unavailable GLORIA, DR ORDAZ Admitting Unavailable GLORIA, DR ORDAZ Attending Unavailable AICHHOLZ, COMPUTER PROGRAMMING MANAGER АННА Primary Care Unavailable GLORIA, DR ORDAZ Consulting Unavailable AICHHOLZ, COMPUTER PROGRAMMING MANAGER АННА Admitting Unavailable AICHHOLZ, COMPUTER PROGRAMMING MANAGER АННА Attending Unavailable AICHHOLZ, COMPUTER PROGRAMMING MANAGER АННА Primary Care Unavailable AICHHOLZ, COMPUTER PROGRAMMING MANAGER АННА Consulting Unavailable AICHHOLZ, COMPUTER PROGRAMMING MANAGER АННА Primary Care Unavailable DON, DR BIRD Admitting Unavailable DON, DR BIRD Attending Unavailable LAURO, GISELLE ROBERTSON Consulting Unavailable PHOEBE ALFARO Consulting Unavailable Dar Brody Primary Care Unavailable Orlin Castro Attending Unavailable Orlin Castro Admitting Unavailable MD Dar Brody Primary Care Provider Orlin Castro Attending Provider Parag Bradley MD Primary Care Provider [phone] Aichholange LIFESTYLE COORDINATOR, Анна Unavailable MONTY АННА Attending Unavailable SHADE JACKSON Attending Unavailable MONTY АННА Attending Unavailable ORLIN CASTRO Attending Unavailable Allergies Allergy Classification Reported Allergen(s) Allergy Type Date of Onset Reaction(s) Facility (4 sources) Other Propensity to adverse reactions 3 [facility] Medications Current Medications Medication Drug Class(es) Dates Sig (Normalized) Sig (Original) levonorgestrel 0.790519 mg/hr intrauterine system (1 source) Progestin, Progestin-containi [...] PO Twice daily March 05, 2019 1:00am traZODone hydrochloride 100 mg oral tablet (3 sources) Serotonin Reuptake Inhibitor Start: 09-02-2023 take 1 tablet by mouth at bedtime traZODone (Desyrel) 100 MG tablet Indications: Primary insomnia Take 1 tablet (100 mg) by mouth at bedtime 30 tablet 2 09/02/2023 Active Completed/Discontinued Medications Medication Drug Class(es) Dates Sig (Normalized) Sig (Original) promethazine hydrochloride 25 mg oral tablet (1 source) Phenothiazine Start: 02-06-2017 End: 05-16-2017 take 25 mg by mouth every six hours Promethazine Discontinued 25 MG PO Q6H February 06, 2017 1:00am May 16, 2017 2:07am Problems Active Problems Problem Classification Problem Date Documented Date Episodic/Chronic Cardiac dysrhythmias (4 sources) Supraventricular tachycardia; Translations: [Supraventricular tachycardia] Onset: 12-09-2019 05-26-2023 Chronic Headache; including migraine (1 source) Migraine 05-16-2017 Chronic Influenza (1 source) Influenza due to other identified influenza virus with other respiratory manifestations; Translations: [FLU D/T OTH ID FLU VIR OTH RSP MANF] Onset: 02-22-2022 Episodic Menstrual disorders (2 sources) Missed period; Translations: [Irregular menstruation, unspecified] 12-10-2023 Chronic Mood disorders (8 sources) Depressive disorder; Translations: [Depression] Onset: 09-01-2023 Resolved: 09-01-2023 09-01-2023 Chronic Other aftercare (1 source) 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; Translations: [METAL TILE SETTER HORMONAL CONTRACEPTIVES] Onset: 02-22-2022 Episodic Other aftercare (1 source) Other fpc (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 therapy; Translations: [OTH INTERMEDIATE CURRENT DRUG THERAPY] Onset: 02-22-2022 Episodic Other bone disease and musculoskeletal deformities (1 source) Costal chondritis; 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 [Tietze]] 03-05-2019 Episodic Other nutritional; endocrine; and metabolic disorders (1 source) Obesity, unspecified; Translations: [OBESITY UNSPECIFIED] Onset: 08-08-2021 Chronic Other nutritional; endocrine; and metabolic disorders (4 sources) Body mass index 30+ - obesity; Translations: [Obesity, unspecified] Onset: 05-26-2023 05-26-2023 Chronic Screening and history of mental health [...] PAIN LEFT EYE] Onset: 08-20-2021 Episodic Other non-traumatic joint disorders (4 sources) Pain of left wrist; Translations: [Pain in left wrist] Onset: 05-03-2023 05-26-2023 Episodic Other screening for suspected conditions (not mental disorders or infectious disease) (4 sources) Encounter for screening for malignant neoplasm of cervix; Translations: [ENC SCREENING MALIG NEOPLASM CERV] Onset: 11-06-2021 Episodic Other skin disorders (4 sources) Nonscarring hair loss, unspecified; Translations: [NONSCARRING HAIR LOSS UNSPECIFIED] Onset: 08-06-2021 Episodic Residual codes; unclassified (4 sources) Insomnia; Translations: [Insomnia, unspecified] Onset: 02-27-2023 02-27-2023 Episodic Unclassified (1 source) COUGH, UNSPECIFIED; Translations: [COUGH, UNSPECIFIED] Onset: 02-20-2022 Results Test Name Value Interpretation Reference Range Facility IGP,APTIMA HPV,AGE GDLNon AGE GDLN ACOG TESTING Note . [facility] Comment on above: TESTS RESULT FLAG UN ITS REF RANGE LAB Clinician Provided Cytology Information Source.............Cervix;Endocervix No. of containers..01 ThinPrep Vial Age Algo ACOG Sylvia... FLAG LEGEND: L-Low Normal,H-High Normal,LL-Alert Low,HH-Alert High <-Panic Low,>-Panic High,A-Abnormal,AA-Critical Abnormal Performed at: 01 =G [address] [place] [address] Amber Tilley MD, HPV APTIMA Negative Negative [facility] Comment on above: This nucleic acid am plification test detects fourteen high- risk HPV types (16,18,31,33,35,39,45,51,52,56,58,59,66,68) without differentiation. Performed at: =G [facility] [id number] Calibration Engineer: Amber Tilley MD, Phone: [phone] Performed at: [address] [id number] Calibration Engineer: Amber Tilley MD, Phone: [phone] IGP, APTIMA HPV, RFX 16/18,45 Note . [facility] Comment on above: TESTS RESULT FLAG UN ITS REF RANGE LAB DIAGNOSIS: 02 NEGATIVE FOR INTRAEPITHELIAL LESION OR MALIGNANCY. REACTIVE CELLULAR CHANGES AND/OR REPAIR ARE PRESENT. Specimen adequacy: 02 Satisfactory for evaluation. Endocervical and/or squamous metaplastic cells (endocervical component) are present. Performed by: Peggy Gandhi, Sleeve Baster (ASCP) Electronically si... 02 Divya Hoffman MD, Pathologist . 02 Note: Note 02 The Pap smear is a screening test designed to aid in the detection of premalignant and malignant conditions of the uterine cervix. It is not a diagnostic procedure and should not be used as the sole means of detecting cervical cancer. Both false-positive and false-negative reports do occur. Test Methodology: Note 02 This liquid based ThinPrep(R) pap test was screened with the use of an image guided system. HPV Genotype Reflex Note 02 Criteria not met, HPV Genotype not performed. FLAG LEGEND: L-Low Normal,H-High Normal,LL-Alert Low,HH-Alert High <-Panic Low,>-Panic High,A-Abnormal,AA-Critical Abnormal Performed at: 02 WB [facility] [address] [facility] [place] [address] Amber Tilley MD, BRUSH-SPATULA CERVIX [facility] HCG ( test) Ql (U)o n 12-10-2023 Interpretation and review of laboratory results Normal [facility] Preg Test, Ur Negative [facility] 06-30-2023 L Specimen: [id number] Received: 07/01/23 Status: [facility] Jadiel Num: [id number] Spec Type: Surgical Subm Dr: Orlin Castro Tissues: A Products of Conception - Spontaneous or Missed (POC) Procedures: HE/3, Gross/Micro L4 Age/ Patient Sex Location Account Attending Physician Shreya Marshall 32/F LABELL [id number] Orlin Castro SPEC NUM: [id number] RECD: 07/01/23 [facility] NUM: [id number] [place]: 06/30/[address]: Orlin Castro ENTERED: 07/01/23 [facility] DR: Rosey,Lab SPEC TYPE: Surgical DEPT: JENIFER [...] spongy harman tissue consistent with villous tissue. Software Installer sections are submitted in A1?A3 to include the villous tissue in A1. Clinical history: Missed TW ---- Specimen: [id number] Received: 07/01/23 Status: [facility] Jadiel Num: [id number] Spec Type: Surgical Subm Dr: Orlin Castro Tissues: A Products of Conception - Spontaneous or Missed (POC) Procedures: /3, Gross/Micro L4 ---- Patient: Shreya Marshall [id number] (Continued) ---- Specimen: [id number] Received: 07/01/23 (Continued) Signed (signature on file) Shen Virgen MD 07/02/23 1859 ---- Specimen: [id number] Received: 07/01/23 Status: [facility] [place] Num: [id number] Spec Type: Surgical Subm Dr: Orlin Castro Tissues: A Products of Conception - Spontaneous or Missed (POC) Procedures: HE/3, Gross/Micro L4 ---- Patient: Shreya Marshall [id number] (Continued) ---- Specimen: [id number] Received: 07/01/23 (Continued) CPT Codes 29656 ---- ---- Specimen: [id number] Received: 07/01/23 Status: [facility] [place] Num: [id number] Spec Type: Surgical Subm Dr: Orlin Castro Tissues: A Products of Conception - Spontaneous or Missed (POC) Procedures: HE/3, Gross/Micro L4 ---- Patient: Shreya Marshall [id number] (Continued) ---- Signed (signature on file) Shen Virgen MD 07/02/23 185 Normal [facility] Covid-19 PCR ([facility])on 01-25 SARS-CoV-2 (COVID-19) RNA JUAN+probe Ql (Unsp spec) Not detected Normal NOT DETECTED [facility] Comment on above: Result Comment: This test is not yet approved or cleared by the [place] FDA. When there are no FDA-approved or cleared tests available, and other criteria are met, FDA can make tests available under an emergency access mechanism called an Emergency Use Authorization (EUA). The EUA for this test is supported by the Message Clerk of Health and Human Service's (HHS's) declaration [...] SARS-CoV-2. Performed By: #### C VDTB #### [facility] [address] [place] [address] Dr. Luis Virgen INFLUENZA A AND B AGon 02-20 [facility] SEE BELOW Normal [facility] Comment on above: Result Comment: Nega tive for Flu B protein antigen. Infection due to Flu B cannot be ruled out. Flu B antigen in the sample may be below the detection limit of the test. Performed By: #### I NFLUAB #### [facility] [address] [place] [address] Dr. Luis Virgen INFLUENZA A AG Positive Abnormal NEGATIVE SEE COMMENT [facility] Comment on above: Performed By: #### I NFLUAB #### [facility] [address] [place] [address] Dr. Luis Virgen INFLUENZA B AG Negative Normal NEGATIVE SEE COMMENT [facility] Comment on above: Performed By: #### I NFLUAB #### [facility] [address] [place] [address] Dr. Luis Virgen XR CHEST 1 Von 02-20-2022 XR CHEST 1 V EXAM: CHEST 1 VIEW HISTORY: COUGH TECHNIQUE: Chest, one view. COMPARISON: None. FINDINGS: Lungs are clear. No focal consolidation, pleural effusion, or pneumothorax. Pulmonary vasculature is within normal limits. Cardiomediastinal silhouette is normal. IMPRESSION: 1. No acute cardiopulmonary disease. Electronically authenticated by: PHOEBE ALFARO Date: 2022-02-20 17:46 Normal [facility] PAP ACOG PANEL 2: 30 to 65on 11-13-2021 . . Normal [facility] Comment on above: Result Comment: Perf ormed at: WB Performed By: #### 4 [id number] #### [facility] [address] [place] [address] Dr. Luis Virgen Age Gdln ACOG Testing 30-65 Normal [facility] Comment on above: Performed By: #### 4 [id number] #### [facility] [address] [place] [address] Dr. Luis Virgen DIAGNOSIS: Comment Normal [facility] Comment on above: Result Comment: NEGA TIVE FOR INTRAEPITHELIAL LESION OR MALIGNANCY. Performed at: WB Performed By: #### 4 [id number] #### [facility] [address] [place] [address] Dr. Luis Virgen HPV Aptima Negative Normal Negative [facility] Comment on above: Result Comment: This nucleic acid amplification test detects fourteen high-risk HPV types (16,18,31,33,35,39,45,51,52,56,58,59,66,68) without differentiation. Performed at: =G Performed By: #### 4 [id number] #### [facility] [address] [place] [address] Dr. Luis Virgen Methodology: Comment Normal [facility] Comment on above: Result Comment: This liquid based ThinPrep(R) pap test was screened with the use of an image guided system. Performed at: WB Performed By: #### 4 [id number] #### [facility] [address] [place] [address] Dr. Luis Virgen Note: Comment Normal [facility] Comment on above: Result Comment: The Pap smear is a screening test designed to aid in the detection of premalignant and malignant conditions of the uterine cervix. It is not a diagnostic procedure and should not be used as the sole means of detecting cervical cancer. Both false-positive and false-negative reports do occur. . Performed at: WB Performed By: #### [id number] #### [facility] [address] [place] [address] Dr. Luis Virgen Performed by: Comment Normal [facility] Comment on above: Result Comment: Maureen Del Cid, Sleeve Baster (ASCP) Performed at: WB Performed By: #### [id number] #### [facility] [address] [place] [address] Dr. Luis Virgen Specimen adequacy: Comment Normal [facility] Comment on above: Result Comment: Sati sfactory for evaluation. Endocervical and/or squamous metaplastic cells (endocervical component) are present. Performed at: WB Performed By: #### [id number] #### [facility] [address] [address] [address] Luis Virgen URon 08-20-2021 , QUAL Negative Normal NEGATIVE [facility] Comment on above: Performed By: #### P REGU #### [facility] [address] [address] [address] Luis Virgen CBC AUTO DIFFon 08-06-2021 BASO # 0.0 103/ul Normal 0.0-0.1 [facility] Comment on above: Performed By: #### C BC #### [facility] [address] [place] [address] Dr. Luis Virgen Basophils/100 WBC (Bld) 0.3 % Normal 0.2-2.0 [facility] Comment on above: Performed By: #### C BC #### [facility] [address] [place] [address] Dr. Luis Virgen EO # 0.0 103/ul Normal 0.0-0.7 [facility] Comment on above: Performed By: #### C BC #### [facility] [address] [place] [address] Dr. Luis Virgen Eosinophils/100 WBC (Bld) 0.3 % Critically low 0.9-7.0 [facility] Comment on above: Performed By: #### C BC #### [facility] [address] [place] [address] Dr. Luis Virgen Erythrocyte distribution width (RBC) [Ratio] 12.6 % Normal 11.0-15.0 [facility] Comment on above: Performed By: #### C BC #### [facility] [address] [place] [address] Dr. Luis Virgen Hematocrit (Bld) [Volume fraction] 41.5 % Normal 36.0-48.0 [facility] Comment on above: Performed By: #### C BC #### [facility] [address] [place] [address] Dr. Luis Virgen Hemoglobin (Bld) [Mass/Vol] 13.5 g/dL Normal 12.0-16.0 [facility] Comment on above: Performed By: #### C BC #### [facility] [address] [place] [address] Dr. Luis Virgen IG # 0.03 10e3/ul Normal 0.00-0.03 [facility] Comment on above: Performed By: #### C BC #### [facility] [address] [place] [address] Dr. Luis Virgen IG % 0.4 % Normal 0.0-0.5 [facility] Comment on above: Performed By: #### C BC #### [facility] [address] [place] [address] Dr. Luis Virgen LYMPH # 2.4 103/ul Normal 1.2-3.8 [facility] Comment on above: Performed By: #### C BC #### [facility] [address] [place] [address] Dr. Luis Virgen Lymphocytes/100 WBC (Bld) 31.8 % Normal 20.5-60.0 [facility] Comment on above: Performed By: #### C BC #### [facility] [address] [place] [address] Dr. Luis Virgen MANUAL DIFF REQ NO Normal [facility] Comment on above: Performed By: #### C BC #### [facility] [address] [place] [address] Dr. Luis Virgen MCH (RBC) [Entitic mass] 30.5 pg Normal 26.7-34.0 [facility] Comment on above: Performed By: #### C BC #### [facility] [address] [place] [address] Dr. Luis Virgen MCHC (RBC) [Mass/Vol] 32.5 g/dL Normal 29.9-35.2 [facility] Comment on above: Performed By: #### C BC #### [facility] [address] [place] [address] Dr. Luis Virgen MCV (RBC) [Entitic vol] 93.9 fL Normal 81.0-99.0 [facility] Comment on above: Performed By: #### C BC #### [facility] [address] [place] [address] Dr. Luis Virgen MONO # 0.6 103/ul Normal 0.3-0.8 [facility] Comment on above: Performed By: #### C BC #### [facility] [address] [place] [address] Dr. Luis Virgen Monocytes/100 WBC (Bld) 7.4 % Normal 1.7-12.0 [facility] Comment on above: Performed By: #### C BC #### [facility] [address] [place] [address] Dr. Luis Virgen NEUT # 4.5 103/ul Normal 1.4-6.5 [facility] Comment on above: Performed By: #### C BC #### [facility] [address] [place] [address] Dr. Luis Virgen Neutrophils/100 WBC (Bld) 59.8 % Normal 43.0-75.0 [facility] Comment on above: Performed By: #### C BC #### [facility] [address] [place] [address] Dr. Luis Virgen Platelet mean volume (Bld) [Entitic vol] 10.0 fL Normal 9.5-13.5 [facility] Comment on above: Performed By: #### C BC #### [facility] [address] [place] [address] Dr. Luis Virgen PLT 337 103/ul Normal 150-450 [facility] Comment on above: Performed By: #### C BC #### [facility] [address] [place] [address] Dr. Luis Virgen RBC 4.42 106/ul Normal 4.20-5.40 [facility] Comment on above: Performed By: #### C BC #### [facility] [address] [place] [address] Dr. Luis Virgen WBC 7.6 103/ul Normal 4.0-11.0 [facility] Comment on above: Performed By: #### C BC #### [facility] [address] [place] [address] Dr. Luis Virgen FREE T4on 08-06-2021 Free T4 [Mass/Vol] 0.91 ng/dL Normal 0.76-1.46 [facility] Comment on above: Performed By: #### F T4 #### [facility] [address] [place] [address] Dr. Luis Virgen LIPID PROFILEon 08-06-2021 CHOL-HDL RATIO NORM SEE BELOW Normal [facility] Comment on above: Result Comment: 3.3 - 4.4 LOW RISK 4.4 - 7.1 AVERAGE RISK 7.1 - 11.0 MODERATE RISK >11.0 HIGH RISK Performed By: #### C MP, TSH, LIPID #### [facility] [address] [place] [address] Dr. Luis Virgen Cholesterol [Mass/Vol] 154 mg/dL Normal <=200 [facility] Comment on above: Performed By: #### C MP, TSH, LIPID #### [facility] [address] [place] [address] Dr. Luis Virgen Cholesterol in HDL [Mass/Vol] 35 mg/dL Critically low 40-60 [facility] Comment on above: Performed By: #### C MP, TSH, LIPID #### [facility] [address] [place] [address] Dr. Luis Virgen Cholesterol in LDL [Mass/Vol] 80.8 mg/dL Normal [facility] Comment on above: Performed By: #### C MP, TSH, LIPID #### [facility] [address] [place] [address] Dr. Luis Virgen Cholesterol.total/C holesterol in HDL [Mass ratio] 4.4 {ratio} Normal [facility] Comment on above: Performed By: #### C MP, TSH, LIPID #### [facility] [address] [place] [address] Dr. Luis Virgen HDL NORMAL > or = 60 mg/dl - LO W CARDIOVASCULAR RISK <40 mg/dl - HIGH CARDIOVASCULAR RISK Normal [facility] Comment on above: Performed By: #### C MP, TSH, LIPID #### [facility] [address] [place] [address] Dr. Luis Virgen LDL CALC NORMAL SEE BELOW Normal [facility] Comment on above: Result Comment: <100 mg/dl OPTIMAL 100 - 129 mg/dl NEAR OR ABOVE OPTIMAL 130 - 159 mg/dl BORDERLINE HIGH 160 - 189 mg/dl HIGH >190 mg/dl VERY HIGH Performed By: #### C MP, TSH, LIPID #### [facility] [address] [address] [address] Luis Virgen Triglyceride [Mass/Vol] 191 mg/dL Critically high <=150 [facility] Comment on above: Performed By: #### C MP, TSH, LIPID #### [facility] [address] [address] [address] Luis Virgen VLDL CALC 38.2 mg/dL Normal [facility] Comment on above: Performed By: #### C MP, TSH, LIPID #### [facility] [address] [address] [address] Luis Virgen PROF 14(COMP METB)on 022 Albumin [Mass/Vol] 4.1 g/dL Normal 3.4-5.0 [facility] Comment on above: Performed By: #### C MP, TSH, LIPID #### [facility] [address] [address] [address] Luis Virgen Albumin/Globulin [Mass ratio] 1.2 {ratio} Normal [facility] Comment on above: Performed By: #### C MP, TSH, LIPID #### [facility] [address] [address] [address] Luis Virgen ALP [Catalytic activity/Vol] 73 U/L Normal 46-116 [facility] Comment on above: Performed By: #### C MP, TSH, LIPID #### [facility] [address] [address] [address] Luis Virgen ALT [Catalytic activity/Vol] 24 U/L Normal 14-59 [facility] Comment on above: Performed By: #### C MP, TSH, LIPID #### [facility] [address] [address] [address] Luis Virgen Anion gap [Moles/Vol] 13.2 mmol/L Normal [facility] Comment on above: Performed By: #### C MP, TSH, LIPID #### [facility] [address] [address] [address] Luis Virgen AST [Catalytic activity/Vol] 11 U/L Critically low 15-37 [facility] Comment on above: Performed By: #### C MP, TSH, LIPID #### [facility] [address] [place] [address] Dr. Luis Virgen Bilirubin [Mass/Vol] 0.8 mg/dL Normal 0.2-1.0 [facility] Comment on above: Performed By: #### C MP, TSH, LIPID #### [facility] [address] [place] [address] Dr. Luis Virgen Calcium [Mass/Vol] 8.9 mg/dL Normal 8.5-10.1 [facility] Comment on above: Performed By: #### C MP, TSH, LIPID #### [facility] [address] [place] [address] Dr. Luis Virgen Chloride [Moles/Vol] 103 mmol/L Normal 98-107 [facility] Comment on above: Performed By: #### C MP, TSH, LIPID #### [facility] [address] [place] [address] Dr. Luis Virgen CO2 [Moles/Vol] 27.5 mmol/L Normal 21.0-32.0 [facility] Comment on above: Performed By: #### C MP, TSH, LIPID #### [facility] [address] [place] [address] Dr. Luis Virgen Creatinine [Mass/Vol] 0.71 mg/dL Normal 0.55-1.02 [facility] Comment on above: Performed By: #### C MP, TSH, LIPID #### [facility] [address] [place] [address] Dr. Luis Virgen EGFR-AF GUYANESE >60 Normal >=60 [facility] Comment on above: Performed By: #### C MP, TSH, LIPID #### [facility] [address] [place] [place] [address] Dr. Luis Virgen EGFR-NON AF GUYANESE >60 Normal >=60 [facility] Comment on above: Performed By: #### C MP, TSH, LIPID #### [facility] [address] [place] [address] Dr. Luis Virgen Globulin (S) [Mass/Vol] 3.5 g/dL Normal [facility] Comment on above: Performed By: #### C MP, TSH, LIPID #### [facility] [address] [address] [address] Luis Virgen Glucose [Mass/Vol] 101 mg/dL Normal 74-106 [facility] Comment on above: Performed By: #### C MP, TSH, LIPID #### [facility] [address] [place] [address] Dr. Luis Virgen Potassium [Moles/Vol] 4.7 mmol/L Normal 3.5-5.1 [facility] Comment on above: Performed By: #### C MP, TSH, LIPID #### [facility] [address] [place] [address] Dr. Luis Virgen Protein [Mass/Vol] 7.6 g/dL Normal 6.4-8.2 [facility] Comment on above: Performed By: #### C MP, TSH, LIPID #### [facility] [address] [place] [address] Dr. Luis Vigren Sodium [Moles/Vol] 139 mmol/L Normal 136-145 [facility] Comment on above: Performed By: #### C MP, TSH, LIPID #### [facility] [address] [place] [address] Dr. Luis Virgen Urea nitrogen [Mass/Vol] 9.0 mg/dL Normal 7.0-18.0 [facility] Comment on above: Performed By: #### C MP, TSH, LIPID #### [facility] [address] [place] [address] Dr. Luis Virgen Urea nitrogen/Creatinine [Mass ratio] 12.7 mg/mg Normal [facility] Comment on above: Performed By: #### C MP, TSH, LIPID #### [facility] [address] [place], [place] [id number] Dr. Luis Virgen TSHon 08-06-2021 TSH 0.924 uIU/mL Normal 0.358-3.740 [facility] Comment on above: Performed By: #### C MP, TSH, LIPID #### [facility] [address] [address] [address] Luis Virgen TSH RANGE SEE BELOW Normal [facility] Comment on above: Result Comment: <0.3 4 UIU/ml HYPERTHYROID 0.34-5.60 UIU/ml EUTHYROID >5.60 UIU/ml HYPOTHYROID Performed By: #### C MP, TSH, LIPID #### [facility] [address] [address] [address] Luis Virgen Vital Signs Date Time Vital Sign Value Performing Clinician Faci lity 12-10-2023 13:12-0400 Body mass index (BMI) [Ratio] 30.76 kg/m2 Orlin Gloria DO Work Phone: [facility] 12-10-2023 13:12-0400 Body weight 73.85 kg Orlin Gloria DO Work Phone: [facility] 12-10-2023 13:12-0400 Diastolic blood pressure 78 mm[Hg] Orlin Gloria DO Work Phone: [facility] 12-10-2023 13:12-0400 Systolic blood pressure 116 mm[Hg] Orlin Gloria DO Work Phone: [facility] Encounters Encounter Date Encounter Type Care Provider Facility Start: 12-10-2023 End: 12-10-2023 Bamboo flowsheet Orlin Gloria DO Work Phone: [facility] Start: 12-10-2023 End: 12-18-2023 Bamboo flowsheet Orlin Gloria DO Work Phone: [facility] Start: 12-10-2023 End: 12-18-2023 Clinisync Result Encounter Generic External Data Provider [facility] Unsolicited Start: 12-10-2023 End: 12-10-2023 ambulatory ORLIN GLORIA Not Available Start: 12-10-2023 End: 12-10-2023 Patient encounter procedure Orlin Gloria DO Work Phone: [facility] Work Phone: Start: 12-10-2023 End: 12-10-2023 Periodic preventive med est patient 18-39 yrs Orlin Mcclellando DO Work Phone: [facility] Comment on above: Well woman exam with routine gynecological exam; Missed menses Start: 09-01-2023 Patient encounter status Orlin Mcclellando DO Work Phone: [facility] Start: 09-01-2023 End: 09-01-2023 ambulatory АННА HA Not Available Start: 07-14-2023 End: 07-14-2023 ambulatory SHADE JACKSON Not Available Start: 06-30-2023 End: 06-30-2023 ambulatory Dar Brody Facility:[facility] Start: 06-30-2023 End: 06-30-2023 ambulatory MD Dar Brody Work Phone: [facility] Work Phone: Start: 06-30-2023 End: 06-30-2023 Departed Referred MD Dar Brody Work Phone: [facility] Start: 05-26-2023 End: 05-26-2023 ambulatory АННА HA Not Available Start: 02-20-2022 End: 02-20-2022 ambulatory MARLYN HA Facility:[facility] Start: 11-06-2021 End: 11-06-[address] ORLIN CASTRO Facility:[facility] Start: 08-20-2021 End: 08-20-2021 ambulatory MARLYN HA Facility:[facility] Start: 08-06-2021 End: 08-07-2021 ambulatory MARLYN HA Facility:[facility] Procedures Date Procedure Procedure Detail Performing Clinician Start: 12-10-2023 Urine test visual color cmprsn meths Orlin Mcclellando DO Work Phone: Start: 10-16-2024 IGP,APTIMA HPV,AGE GDLN Orlin Castro DO Work Phone: Start: 11-25-2022 Microscopic observat ion [Identifier] in Cervix by Cyto stain Orlin Gloria DO Work Phone: Plan of Treatment Date Care Activity Detail Author Start: 11-25-2025 Screening for malign ant neoplasm of cervix [facility] Start: 12-15-2024 End: 12-15-2024 Patient encounter procedure 12/15/2024 3:00 PM EDT Office Visit [facility] [address] [place] [address] Orlin Castro, DO [address] [place] [address] [facility] Start: 09-07-2024 End: 09-07-2024 Patient encounter procedure 09/07/2024 1:00 PM EDT Office Visit [facility] [address] [place] [address] Анна Ha, LIFESTYLE COORDINATOR [address] [place] [phone] [facility] Start: 03-02-2024 End: 03-02-2024 Patient encounter procedure 03/02/2024 9:40 AM EST Office Visit [facility] [address] [place] [address] Анна Ha, LIFESTYLE COORDINATOR [address] [place] [address] [facility] Start: 2018 Screening for malign ant neoplasm of cervix HPV/Cotest [facility] Cytology Cervical or vaginal smear or scraping study Pap Smear Pathology and Cytology Routine Well woman exam with routine gynecological exam Ordered: 12/10/2023 [facility] Work Phone: Comment on above: Ordered: 12/10/2023 Human papilloma viru s DNA [Presence] in Unspecified specimen by Probe with amplification HPV DNA probe, amplified Microbiology Routine Well woman exam with routine gynecological exam Ordered: 12/10/2023 [facility] Comment on above: Ordered: 12/10/2023 Immunizations Immunization Date Immunization Notes Care Provider Joan ornelas 12-08-2017 influenza, seasonal, injectable, preservative free Orlin Castro DO Work Phone: [facility] Payers Date Payer Category Payer Self-pay 2022 Medicaid (Managed Care) [employer] [id number] 1990 Unknown [id number] 1988 Unknown [id number] 593 1988 Unknown [id number] 59 1988 Unknown [id number] [id number] 1988 Unknown [id number] 1258 1988 Unknown [id number] 9 1988 Unknown [id number]. 1259 1988 Unknown [id number] 1259 1959 Unknown [id number] Private Health Insurance [employer] [id number] Unknown [id number] Social History Date Type Detail Facility Start: 03-05-2019 Tobacco smoking status [facility] Never smoked tobacco (finding) [facility] Start: 1990 Sex Assigned At Female [facility] Start: 10-30-2022 Tobacco smoking status [facility] Ex-smoker [facility] End: 02-24-2014 History of tobacco use Current smoker [facility] End: 02-24-2014 History of tobacco use Cigarette Smoker [facility] Start: 10-30-2022 Tobacco use and exposure Smokeless tobacco non-user [facility] Start: 09-01-2023 End: 12-10-2023 Alcoholic beverage intake Lifetime non-drinker (finding) [facility] Start: 05-19-2023 End: 09-01-2023 History of Social function [facility] Start: 05-19-2023 End: 09-01-2023 Social connection and isolation panel [facility] Do you belong to any clubs or organizations such as congregation groups, unions, fraternal or athletic groups, or school groups? Yes [facility] Are you now , , , , never or living with a partner? [facility] How often to you hav e a drink containing alcohol? Never [facility] How many standard dr inks containing alcohol do you have on a typical day? Patient does not drink [facility] How hard is it for y ou to pay for the very basics like food, housing, medical care, and heating Not very hard [facility] Do you feel stress - tense, restless, nervous, or anxious, or unable to sleep at night because your mind is troubled all the time - these days [OSQ] Only a little [facility] (I/We) worried wheth er (my/our) food would run out before (I/we) got money to buy more. Never true [facility] In the past 12 month s, was there a time when you were not able to pay the mortgage or rent on time? No [facility] Start: 10-30-2022 Tobacco Comment Ex-moderate cigarette smoker (10-19/day) [facility] Start: 10-30-2022 Alcohol Comment Caffeine: occasional [facility] Start: 1990 Sex assigned at Not on file [facility] Start: 05-08-2022 Gender identity Identifies as female gender (finding) [facility] History of Present illness Narrative 12-10-2023 Isatudiallo Gilbert LPN - 12/10/2023 1:00 PM EDT Note Date & Type Note Facility 12-10-2023 History of Presen t illness Narrative Reason for Appointment: Patient ID: Shreya Marshall is a 33 y.o. female who presents for Well Women Visit Patient presents today for Annual Exam. MEDICATIONS Current Outpatient Medications Medication Instructions traZODone (DESYREL) 100 mg, Oral, Nightly ALLERGIES Allergies Allergen Reactions Other Powder on gloves Other Reaction(s): rash/itching PROBLEMS Active Ambulatory Problems Diagnosis Date Noted Insomnia 02/27/2023 Supraventricular tachycardia (CMS/HCC) 12/09/2019 Left wrist pain 05/03/2023 Obesity (BMI 30-39.9) 05/26/2023 Encounter for wellness examination in adult 09/01/2023 Depression (CMS/HCC) 09/01/2023 Resolved Ambulatory Problems Diagnosis Date Noted Major depressive disorder, single episode, mild (HCC) (CMS/HCC) 09/01/2023 Past Medical History: Diagnosis Date Abnormal Pap smear of cervix 2009 Contraception management Current mild episode of major depressive disorder without prior episode (HCC) (CMS/HCC) Degenerative joint disease of spine Encounter for IUD removal History of abnormal cervical Pap smear LGSIL Pap smear of vagina 2012 Overweight (BMI 25.0-29.9) SVT (supraventricular tachycardia) (CMS/HCC) Torn meniscus HISTORY PAST MEDICAL HISTORY SOCIAL HISTORY Past Medical History: Diagnosis Date Abnormal Pap smear of cervix 2009 Contraception management Current mild episode of major depressive disorder without prior episode (HCC) (CMS/HCC) 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 Artis needs to stop with preg. Cat. C LGSIL Pap smear of vagina 2012 Overweight (BMI 25.0-29.9) SVT (supraventricular tachycardia) (CMS/HCC) Torn meniscus Social History Tobacco Use Smoking status: Former Current packs/day: 0.00 Types: Cigarettes Quit date: 2014 Years since quittin.7 Smokeless tobacco: Never Tobacco comments: Ex-moderate cigarette smoker (10-19/day) Substance Use Topics Alcohol use: Never Comment: Caffeine: occasional Drug use: Never FAMILY HISTORY Family History Problem Relation Name Age of Onset Lupus Mother Hypertension Mother Heart disease Maternal Grandmother Cervical cancer Maternal Grandmother Other (Bladder Cancer) Maternal Grandfather Emphysema Maternal Grandfather COPD Maternal Grandfather Ovarian cancer Other M. Gr. Aunts Multiple sclerosis Other P. Gr. Aunt Multiple sclerosis Father's Sister SURGICAL HISTORY Past Surgical History: Procedure Laterality Date DILATION AND CURETTAGE OF UTERUS 06/30/2023 KNEE ARTHROSCOPY W/ MENISCAL REPAIR Left 2010 Torn Meniscus OTHER SURGICAL HISTORY HPV observation- abnormal pap smear PAP SMEAR 03/07/2014 LGSIL MO MEDICATION MANAGEMENT Drug Therapy -SVT TONSILLECTOMY 1992 REVIEW OF SYSTEMS Review of Systems: Review of Systems Constitutional: Negative. HENT: Negative. Eyes: Negative. Respiratory: Negative. Cardiovascular: Negative. Gastrointestinal: Negative. Genitourinary: Negative. Musculoskeletal: Negative. Skin: Negative. Neurological: Negative. All other systems reviewed and are negative. Hematological: Negative. Endocrine: Negative. Allergic/Immunologic: Negative. OBJECTIVE Objective: Physical Exam Constitutional: Appearance: Normal appearance. She is well-developed. Genitourinary: Vulva normal. Breasts: Breasts are soft. Right: Normal. Left: Normal. Cardiovascular: Rate and Rhythm: Normal rate and regular rhythm. Pulmonary: Effort: Pulmonary effort is normal. Breath sounds: Normal breath sounds. Abdominal: General: Bowel sounds are normal. There is no distension. Palpations: Abdomen is soft. Tenderness: There is no abdominal tenderness. There is no guarding or rebound. Musculoskeletal: General: No swelling. Normal range of motion. Right lower leg: No edema. Left lower leg: No edema. Neurological: Mental Status: She is alert and oriented to person, place, and time. Skin: General: Skin is warm and dry. Psychiatric: Mood and Affect: Mood normal. Behavior: Behavior normal. Vitals and nursing note reviewed. Exam conducted with a customer technical services manager present. Vitals: Estimated body mass index is 30.76 kg/m as calculated from the following: Height as of 24: 5' 1 . Weight as of this encounter: 162 lb 12.8 oz. BP: 116/78 No LMP recorded. ASSESSMENT & PLAN ICD-10-CM 1. Well woman exam with routine gynecological exam Z01.419 Pap Smear HPV DNA probe, amplified 2. Missed menses N92.6 POCT , urine manually resulted Annual Exam: Patient presents today for an annual exam. Patient states she is doing well and has no complaints. Pap was obtained without difficulty. Orders Placed This Encounter Procedures HPV DNA probe, amplified POCT , urine manually resulted Follow Up: Patient is to return in one year for annual unless needed otherwise. Documented by Isatu Gilbert LPN on behalf of: Orlin Castro DO documented in this encounter [facility] Evaluation note Note Date & Type Note Facility Evaluation note [facility]: Evaluation note Note Date & Type Note Facility Evaluation note Diagnosis Primary insomnia- Primary Persistent disorder of initiating or maintaining sleep Obesity (BMI 30-39.9) Encounter for wellness examination in adult- Primary Major depressive disorder, single episode, mild (HCC) (CMS/HCC) Major depressive disorder, single episode, mild Primary insomnia Persistent disorder of initiating or maintaining sleep Obesity (BMI 30-39.9) Depression, unspecified depression type (CMS/HCC) Well woman exam with routine gynecological exam Routine gynecological examination Missed menses documented in this encounter [facility] Summary Purpose Family History No Family History Records FoundNo Family History Records FoundNo Family History Records Found Advance Directives Advance Directive Response Recorded Date/ Time Advance Directives No January 3:45am Additional Source Comments INFORMATION SOURCE (unrecogn ized section and content) DATE CREATED AUTHOR 02/22/2022 [facility] DATE CREATED AUTHOR AUTHOR'S ORGANIZ ATION 07/03/2023 [facility] DATE CREATED AUTHOR AUTHOR'S ORGANIZ ATION 12/12/2023 [facility] Care Teams (unrecognized sec tion and content) Team Status: Active Member Role Status Dates Dar Brody MD Primary Care Provider Active Team Status: Inactive Member Role Status Dates Dar Brody MD Primary Care Provider Active Start: June 30, 2023 End: June 30, 2023 Orlin Castro Attending Provider Active Start: Viky brewer 2023 End: June 30, 2023 Envelope Folder Relationship Specialty Start Date End Date Parag Bradley MD [address] [place] [phone] PCP - [facility] 08/14/22 Анна Ha NP [address] [place] [phone] [facility] 08/25/23 Envelope Folder Relationship Specialty Start Date End Date Parag Bradley MD [address] [place] [phone] PCP [facility] 08/14/22 Анна Ha NP [address] [place] [phone] [facility] 08/25/23 Goals (unrecognized section and content) Goals may be documented in a n alternate section Reason for Visit (unrecogniz ed section and content) Reason Comments Well Women Visit FOR RECORDS PERTAINING TO PATIENTS WHO ARE [...] BE BASED ON THE PRIMARY CLINICAL RECORDS. [facility] [employer] [facility]. provides no warranty or guarantee of the accuracy or completeness of information in this document.
[2024-01-19 17:35] LABS: HCG Quantitative 884 mIU/mL
== END 2024-01-19 16:34 | disposition home or self-care (01) ==
LOC: LAB 16:35
PROVIDERS: PCP Nurse Practitioner; Visit Provider Obstetrics & Gynecology
DX: Z87.59 Personal history of other complications of pregnancy, childbirth and the puerperium (principal)
CPT/HCPCS: 36415; 84702

== ENCOUNTER 2024-01-21 13:50 | Outpatient (RCR) | payer OTHER, SELFPAY ==
[2024-01-21 15:27] LABS: HCG Quantitative 2241 mIU/mL
[2024-01-23 13:25] LABS: HCG Quantitative 4641 mIU/mL
== END 2024-02-24 23:59 | disposition home or self-care (01) ==
LOC: LAB 13:50
PROVIDERS: PCP Nurse Practitioner; Visit Provider Obstetrics & Gynecology
DX: Z32.01 Encounter for pregnancy test, result positive (principal); Z87.59 Personal history of other complications of pregnancy, childbirth and the puerperium
CPT/HCPCS: 36415; 84702

== ENCOUNTER 2024-01-27 15:50 | Outpatient (RCR) | payer OTHER, SELFPAY ==
[2024-01-25 14:45] LABS: HCG Quantitative 8911 mIU/mL
[2024-01-27 18:06] LABS: HCG Quantitative 18512 mIU/mL
[2024-01-29 17:01] LABS: HCG Quantitative 30843 mIU/mL
[2024-01-31 13:24] LABS: HCG Quantitative 45966 mIU/mL
[2024-02-02 16:38] LABS: HCG Quantitative 60502 mIU/mL
== END 2024-02-24 10:39 | disposition home or self-care (01) ==
LOC: LAB 15:50
PROVIDERS: PCP Nurse Practitioner; Visit Provider Obstetrics & Gynecology
DX: Z32.01 Encounter for pregnancy test, result positive (principal); Z87.59 Personal history of other complications of pregnancy, childbirth and the puerperium
CPT/HCPCS: 36415; 84702

== ENCOUNTER 2024-02-11 09:36 | Outpatient (OUT) | payer OTHER, SELFPAY ==
--- NOTE | 2024-02-11 09:38 | US_ITS ---
The [address] [address] Patient Name: ROXANNE ROGERS MRN: [id number] date: 1990 Sex: F Assigned Patient Location: [facility] Current Patient Location: Accession/Order Number: [id number] Exam Date: 02/11/2024 09:39 Report Date: 02/12/2024 04:29 At the request of: ORLIN ESCOBAR Procedure: US OB transvaginal EXAMINATION: US OB transvaginal HISTORY: MISSED MENSES COMPARISON: No relevant comparison available. FINDINGS: GESTATIONAL SAC: Present and normal appearing. YOLK SAC: Present and normal appearing. POLE: Present and normal appearing. CARDIAC: Present. UTERUS: Normal size and appearance. OVARIES: Right: Normal. Left: Normal. CERVIX: 3.9 cm in length and closed. CUL-DE-SAC: Normal. OTHER: None. AGE BY LMP: 8 weeks 6 days BELL BY LMP: 09/16/2024 AGE BY US CRL: 7 weeks 5 days BELL BY US CRL: 09/24/2024 US/US OB transvaginal IMPRESSION: 1. Single live intrauterine . Electronically authenticated by: OMAR QURESHI Date: 02/12/2024 04:29
--- OUTSIDE RECORDS SUMMARY | 2024-02-11 09:50 | XMS_ITS | CCD ---
Author Organization [facility] Inform ion Partnership [facility] Care Team Providers Care Corrosion Control Specialist Name Role Phone AICHHOLZ, OYSTER WASHER АННА Primary Care Unavailable PAY, DR LIN Admitting Unavailable PAY, DR LIN Attending Unavailable GISELLE RESTREPO Consulting Unavailable GLORIA, DR ORDAZ Admitting Unavailable GLORIA, DR ORDZA Attending Unavailable AICHHOLZ, OYSTER WASHER АННА Primary Care Unavailable GLORIA, DR ORDAZ Consulting Unavailable AICHHOLZ, OYSTER WASHER АННА Admitting Unavailable AICHHOLZ, OYSTER WASHER АННА Attending Unavailable AICHHOLZ, OYSTER WASHER АННА Primary Care Unavailable AICHHOLZ, OYSTER WASHER АННА Consulting Unavailable AICHHOLZ, OYSTER WASHER АННА Primary Care Unavailable DON, DR BIRD Admitting Unavailable DON, DR BIRD Attending Unavailable LAURO, GISELLE ROBERTSON Consulting Unavailable PHOEBE ALFARO Consulting Unavailable Dar Brody Primary Care Unavailable Orlin Castro Attending Unavailable Orlin Castro Admitting Unavailable MD Dar Brody Primary Care Provider [phone] Orlin Castro Attending Provider Parag Bradley MD Primary Care Provider [phone] Aichholange USED CAR RENOVATOR, Анна Unavailable MONTY АННА Attending Unavailable SHADE JACKSON Attending Unavailable MONTY АННА Attending Unavailable ORLIN CASTRO Attending Unavailable Allergies Allergy Classification Reported Allergen(s) Allergy Type Date of Onset Reaction(s) Facility (12 sources) Other Propensity to adverse reactions 3 [facility] Medications Current Medications Medication Drug Class(es) Dates Sig (Normalized) Sig (Original) levonorgestrel 0.405500 mg/hr intrauterine system (1 source) Progestin, Progestin-containi [...] PO Twice daily March 05, 2019 1:00am Progesterone 200 MG suppository (8 sources) Start: 01-19-2024 End: 04-18-2024 Progesterone 200 MG suppository Indications: History of miscarriage Insert 200 mg into the vagina at bedtime Insert suppository vaginally every night at bedtime until 12 weeks gestation 30 suppository 2 01/19/2024 04/18/2024 Active traZODone hydrochloride 100 mg oral tablet (11 sources) Serotonin Reuptake Inhibitor Start: 09-02-2023 take [...] Problem Date Documented Date Episodic/Chronic Cardiac dysrhythmias (12 sources) Supraventricular tachycardia; Translations: [Supraventricular tachycardia] Onset: 12-09-2019 05-26-2023 Chronic Headache; including migraine (1 source) Migraine 05-16-2017 Chronic Influenza (1 source) Influenza due to other identified influenza virus with other respiratory manifestations; Translations: [FLU D/T OTH ID FLU VIR OTH RSP MANF] Onset: 02-22-2022 Episodic Menstrual disorders (2 sources) Missed period; Translations: [Irregular menstruation, unspecified] 12-10-2023 Chronic Mood disorders (20 sources) Depressive disorder; Translations: [Depression] Onset: 09-01-2023 Resolved: 09-01-2023 09-01-2023 Chronic Other aftercare (1 source) 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; Translations: [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 HORMONAL CONTRACEPTIVES] Onset: 02-22-2022 Episodic Other aftercare (1 source) 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; Translations: [OTH ASSISTED CURRENT DRUG THERAPY] Onset: 02-22-2022 Episodic Other bone disease and musculoskeletal deformities (1 source) Costal chondritis; 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 [Tietze]] 03-05-2019 Episodic Other nutritional; endocrine; and metabolic disorders (1 source) Obesity, unspecified; Translations: [OBESITY UNSPECIFIED] Onset: 08-08-2021 Chronic Other nutritional; endocrine; and metabolic disorders (12 sources) Body mass index 30+ - obesity; [...] Onset: 08-20-2021 Episodic Other non-traumatic joint disorders (12 sources) Pain of left wrist; Translations: [Pain [...] UNSPECIFIED] Onset: 08-06-2021 Episodic Residual codes; unclassified (12 sources) Insomnia; Translations: [Insomnia, unspecified] Onset: 02-27-2023 02-27-2023 Episodic Unclassified (1 source) COUGH, UNSPECIFIED; Translations: [COUGH, UNSPECIFIED] Onset: 02-20-2022 Results Test Name Value Interpretation Reference Range [facility] PREG QUANT HCGon 024 HCG QUANTITATIVE 00022 mIU/mL [facility] Comment on above: 5-50 0.2-1 WEEK 50-500 1-2 WEEKS 100-5,000 2-3 WEEKS 500-10,000 3-4 WEEKS 1,000-50,000 4-5 WEEKS 10,000-100,000 5-6 WEEKS 15,000-200,000 6-8 WEEKS 10,000-100,000 2-3 MONTHS [facility] PREG QUANT HCGon 024 HCG QUANTITATIVE 01766 mIU/mL [facility] Comment on above: 5-50 0.2-1 WEEK 50-500 1-2 WEEKS 100-5,000 2-3 WEEKS 500-10,000 3-4 WEEKS 1,000-50,000 4-5 WEEKS 10,000-100,000 5-6 WEEKS 15,000-200,000 6-8 WEEKS 10,000-100,000 2-3 MONTHS [facility] PREG QUANT HCGon 024 HCG QUANTITATIVE 37724 mIU/mL [facility] Comment on above: 5-50 0.2-1 WEEK 50-500 1-2 WEEKS 100-5,000 2-3 WEEKS 500-10,000 3-4 WEEKS 1,000-50,000 4-5 WEEKS 10,000-100,000 5-6 WEEKS 15,000-200,000 6-8 WEEKS 10,000-100,000 2-3 MONTHS [facility] PREG QUANT HCGon 024 HCG QUANTITATIVE 61582 mIU/mL [facility] Comment on above: 5-50 0.2-1 WEEK 50-500 1-2 WEEKS 100-5,000 2-3 WEEKS 500-10,000 3-4 WEEKS 1,000-50,000 4-5 WEEKS 10,000-100,000 5-6 WEEKS 15,000-200,000 6-8 WEEKS 10,000-100,000 2-3 MONTHS [facility] PREG QUANT HCGon 024 HCG QUANTITATIVE 8911 mIU/mL [facility] Comment on above: 5-50 0.2-1 WEEK 50-500 1-2 WEEKS 100-5,000 2-3 WEEKS 500-10,000 3-4 WEEKS 1,000-50,000 4-5 WEEKS 10,000-100,000 5-6 WEEKS 15,000-200,000 6-8 WEEKS 10,000-100,000 2-3 MONTHS [facility] PREG QUANT HCGon 024 HCG QUANTITATIVE 4641 mIU/mL [facility] Comment on above: 5-50 0.2-1 WEEK 50-500 1-2 WEEKS 100-5,000 2-3 WEEKS 500-10,000 3-4 WEEKS 1,000-50,000 4-5 WEEKS 10,000-100,000 5-6 WEEKS 15,000-200,000 6-8 WEEKS 10,000-100,000 2-3 MONTHS [facility] PREG QUANT HCGon 024 HCG QUANTITATIVE 2241 mIU/mL [facility] Comment on above: 5-50 0.2-1 WEEK 50-500 1-2 WEEKS 100-5,000 2-3 WEEKS 500-10,000 3-4 WEEKS 1,000-50,000 4-5 WEEKS 10,000-100,000 5-6 WEEKS 15,000-200,000 6-8 WEEKS 10,000-100,000 2-3 MONTHS [facility] PREG QUANT HCGon 024 HCG QUANTITATIVE 884 mIU/mL [facility] Comment on above: 5-50 0.2-1 WEEK 50-500 1-2 WEEKS 100-5,000 2-3 WEEKS 500-10,000 3-4 WEEKS 1,000-50,000 4-5 WEEKS 10,000-100,000 5-6 WEEKS 15,000-200,000 6-8 WEEKS 10,000-100,000 2-3 MONTHS [facility] IGP,APTIMA HPV,AGE GDLNon AGE GDLN ACOG TESTING Note . [facility] Comment on above: TESTS RESULT FLAG U NITS REF RANGE LAB Clinician Provided Cytology Information Source.............Cervix;Endocervix No. of containers..01 ThinPrep Vial Age Algo ACOG Sylvia... - FLAG LEGEND: L-Low Normal,H-High Normal,LL-Alert Low,HH-Alert High <-Panic Low,>-Panic High,A-Abnormal,AA-Critical Abnormal Performed at: 01 = [facility] [place] [address] Amber Tilley MD, HPV APTIMA Negative Negative [facility] Comment on above: This nucleic acid am plification test detects fourteen high- risk HPV types (16,18,31,33,35,39,45,51,52,56,58,59,66,68) without differentiation. Performed at: =[facility] [id number] Pharmacy Messenger: Amber Tilley MD, Phone: [phone] Performed at: WB - [facility] [address], [place] [id number] Pharmacy Messenger: Amber Tilley MD, Phone: [phone] IGP, APTIMA HPV, RFX 16/18,45 Note . [facility] Comment on above: TESTS RESULT FLAG UN ITS REF RANGE LAB DIAGNOSIS: 02 NEGATIVE FOR INTRAEPITHELIAL LESION OR MALIGNANCY. REACTIVE CELLULAR CHANGES AND/OR REPAIR ARE PRESENT. Specimen adequacy: 02 Satisfactory for evaluation. Endocervical and/or squamous metaplastic cells (endocervical component) are present. Performed by: Remedios Gandhi, Senior Asp Net Developer (ASCP) Electronically si... Divya Hoffman MD, Pathologist . 02 Note: [...] High,A-Abnormal,AA-Critical Abnormal Performed at: 02 WB [facility] [address], [place] [address] Amber Tilley MD, BRUSH-SPATULA CERVIX ENDOCERVIX [facility] HCG ( test) Ql (U)o n 12-10-2023 Interpretation and review of laboratory results Normal [facility] Preg Test, Ur Negative [facility] Cameron 06-30-2023 L Specimen: [id number] Received: 07/01/23 [id number] Spec Type: Surgical Subm Dr: Orlin Castro Tissues: A Products of Conception - Spontaneous or Missed (POC) Procedures: HE/3, Gross/Micro L4 Age/ Patient Sex Location Account Attending Physician Shreya Marshall 32/F [facility] [id number] Orlin Castro SPEC NUM: [id number] RECD: 07/01/23 STATUS: WEN REJimi NUM: [id number] [place]: 06/30/[address]: Orlin Castro ENTERED: 07/01/[address] [facility] [address]: Rosey,Lab SPEC TYPE: Surgical DEPT: [...] spongy harman tissue consistent with villous tissue. Garment Manufacturer sections are submitted in A1?A3 to include the villous tissue in A1. Clinical history: Missed TW ---- Specimen: [id number] Received: 07/01/23 Status: WEN [place] Num: [id number] Spec Type: Surgical Subm Dr: Orlin Castro Tissues: A Products of Conception - Spontaneous or Missed (POC) Procedures: HE/3, Gross/Micro L4 ---- Patient: Shreya Marshall [id number] (Continued) ---- Specimen: [id number] Received: 07/01/23 (Continued) Signed (signature on file) Shen Virgen MD 07/02/23 1859 ---- Specimen: [id number] Received: 07/01/23 Status: [facility] [place] Num: [id number] Spec Type: Surgical Subm Dr: Orlin Castro Tissues: A Products of Conception - Spontaneous or Missed (POC) Procedures: SUSY/3, Gross/Micro L4 ---- Patient: Shreya Marshall [id number] (Continued) ---- Specimen: [id number] Received: 07/01/23 (Continued) CPT Codes 03133 ---- ---- Specimen: [id number] Received: 07/01/23 Status: W[facility] [place] Num: [id number] Spec Type: Surgical Subm Dr: Orlin Castro Tissues: A Products of Conception - Spontaneous or Missed (POC) Procedures: HE/3, Gross/Micro L4 ---- Patient: Shreya Marshall [id number] (Continued) ---- Signed (signature on file) Chin-Rishi Virgen MD 07/02/23 1859 Normal [facility] Covid-19 PCR (CVDTB)on 01-25 SARS-CoV-2 (COVID-19) RNA JUAN+probe Ql (Unsp spec) Not detected Normal NOT DETECTED [facility] Comment on above: Result Comment: This test is not yet approved or cleared by the [place] FDA. When there are no FDA-approved or cleared tests available, and other criteria are met, FDA can make tests available under an emergency access mechanism called an Emergency Use Authorization (EUA). The EUA for this test is supported by the [place] of Health and Human Service's (HHS's) declaration [...] SARS-CoV-2. Performed By: #### C VDTB #### [facility] [address] [address] [address] Luis Virgen INFLUENZA A AND B AGon 02-20 [facility] SEE BELOW [facility] Comment on above: Result Comment: Nega tive for Flu B protein antigen. Infection due to Flu B cannot be ruled out. Flu B antigen in the sample may be below the detection limit of the test. Performed By: #### I NFLUAB #### [facility] [address] [place] [address] Dr. Luis Virgen INFLUENZA A AG Positive Abnormal NEGATIVE SEE COMMENT [facility] Comment on above: Performed By: #### I NFLUAB #### [facility] [address] [place] [address] Dr. Luis Virgen INFLUENZA B AG Negative Normal NEGATIVE SEE COMMENT [facility] Comment on above: Performed By: #### I NFLUAB #### [facility] [address] [place] [address] Dr. Luis Virgen XR CHEST 1 Von 02-20-2022 XR CHEST 1 V EXAM: CHEST 1 VIEW HISTORY: COUGH TECHNIQUE: Chest, one view. COMPARISON: None. FINDINGS: Lungs are clear. No focal consolidation, pleural effusion, or pneumothorax. Pulmonary vasculature is within normal limits. Cardiomediastinal silhouette is normal. IMPRESSION: 1. No acute cardiopulmonary disease. Electronically authenticated by: PHOEBE ALFARO Date: 2022-02-20 17:46 Normal [facility] PAP ACOG PANEL 2: 30 to 65on 11-13-2021 . . Normal [facility] Comment on above: Result Comment: Perf ormed at: WB Performed By: #### [id number] #### [facility] [address] [place] [address] Dr. Luis Virgen Age Gdln ACOG Testing 30-65 Normal [facility] Comment on above: Performed By: #### [id number] #### [facility] [address] [place] [address] Dr. Luis Virgen DIAGNOSIS: Comment Normal [facility] Comment on above: Result Comment: NEGA TIVE FOR INTRAEPITHELIAL LESION OR MALIGNANCY. Performed at: WB Performed By: #### [id number] #### [facility] [address] [place] [address] Dr. Luis Virgen HPV Aptima Negative Normal Negative [facility] Comment on above: Result Comment: This nucleic acid amplification test detects fourteen high-risk HPV types (16,18,31,33,35,39,45,51,52,56,58,59,66,68) without differentiation. Performed at: =G Performed By: #### [id number] #### [facility] [address] [place] [address] Dr. Luis Virgen Methodology: Comment Normal [facility] Comment on above: Result Comment: This liquid based ThinPrep(R) pap test was screened with the use of an image guided system. Performed at: WB Performed By: #### [id number] #### [facility] [address] [place] [address] Dr. Luis Virgen Note: Comment Normal [facility] Comment on above: Result Comment: The Pap smear is a screening test designed to aid in the detection of premalignant and malignant conditions of the uterine cervix. It is not a diagnostic procedure and should not be used as the sole means of detecting cervical cancer. Both false-positive and false-negative reports do occur. . Performed at: WB Performed By: #### [id number] #### [facility] [address] [place] [address] Dr. Luis Virgen Performed by: Comment Normal [facility] Comment on above: Result Comment: Maureen Del Cid, Senior Asp Net Developer (ASCP) Performed at: WB Performed By: #### [id number] #### [facility] [address] [place] [address] Dr. Luis Virgen Specimen adequacy: Comment Normal [facility] Comment on above: Result Comment: Sati sfactory for evaluation. Endocervical and/or squamous metaplastic cells (endocervical component) are present. Performed at: WB Performed By: #### [id number] #### [facility] [address] [place] [address] Dr. Luis Virgen URon 06-27-2022 , QUAL Negative Normal NEGATIVE [facility] Comment on above: Performed By: #### P REGU #### [facility] [address] [place] [address] Dr. Luis Virgen CBC AUTO DIFFon 08-06-2021 BASO # 0.0 103/ul Normal 0.0-0.1 [facility] Comment on above: Performed By: #### C BC #### [facility] [address] [place] [address] Dr. Luis Virgen Basophils/100 WBC (Bld) 0.3 % Normal 0.2-2.0 [facility] Comment on above: Performed By: #### C BC #### [facility] [address] [place] [address] Dr. Luis Virgen EO # 0.0 103/ul Normal 0.0-0.7 [facility] Comment on above: Performed By: #### C BC #### [facility] [address] [place] [address] Dr. Luis Virgen Eosinophils/100 WBC (Bld) 0.3 % Critically low 0.9-7.0 [facility] Comment on above: Performed By: #### C BC #### [facility] [address] [place] [address] Dr. Luis Virgen Erythrocyte distribution width (RBC) [Ratio] 12.6 % Normal 11.0-15.0 [facility] Comment on above: Performed By: #### C BC #### [facility] [address] [place] [address] Dr. Luis Virgen Hematocrit (Bld) [Volume fraction] 41.5 % Normal 36.0-48.0 [facility] Comment on above: Performed By: #### C BC #### [facility] [address] [place] [address] Dr. Luis Virgen Hemoglobin (Bld) [Mass/Vol] 13.5 g/dL Normal 12.0-16.0 [facility] Comment on above: Performed By: #### C BC #### [facility] [address] [place] [address] Dr. Luis Virgen IG # 0.03 10e3/ul Normal 0.00-0.03 [facility] Comment on above: Performed By: #### C BC #### [facility] [address] [place] [address] Dr. Luis Virgen IG % 0.4 % Normal 0.0-0.5 [facility] Comment on above: Performed By: #### C BC #### [facility] [address] [place] [address] Dr. Luis Virgen LYMPH # 2.4 103/ul Normal 1.2-3.8 [facility] Comment on above: Performed By: #### C BC #### [facility] [address] [place] [address] Dr. Luis Virgen Lymphocytes/100 WBC (Bld) 31.8 % Normal 20.5-60.0 [facility] Comment on above: Performed By: #### C BC #### [facility] [address] [place] [address] Dr. Luis Virgen MANUAL DIFF REQ NO Normal [facility] Comment on above: Performed By: #### C BC #### [facility] [address] [place] [address] Dr. Luis Virgen MCH (RBC) [Entitic mass] 30.5 pg Normal 26.7-34.0 [facility] Comment on above: Performed By: #### C BC #### [facility] [address] [place] [address] Dr. Luis Virgen MCHC (RBC) [Mass/Vol] 32.5 g/dL Normal 29.9-35.2 [facility] Comment on above: Performed By: #### C BC #### [facility] [address] [place] [address] Dr. Luis Virgen MCV (RBC) [Entitic vol] 93.9 fL Normal 81.0-99.0 [facility] Comment on above: Performed By: #### C BC #### [facility] [address] [place] [address] Dr. Luis Virgen MONO # 0.6 103/ul Normal 0.3-0.8 [facility] Comment on above: Performed By: #### C BC #### [facility] [address] [place] [address] Dr. Luis Virgen Monocytes/100 WBC (Bld) 7.4 % Normal 1.7-12.0 [facility] Comment on above: Performed By: #### C BC #### [facility] [address] [place] [address] Dr. Luis Virgen NEUT # 4.5 103/ul Normal 1.4-6.5 [facility] Comment on above: Performed By: #### C BC #### [facility] [address] [place] [address] Dr. Luis Virgen Neutrophils/100 WBC (Bld) 59.8 % Normal 43.0-75.0 [facility] Comment on above: Performed By: #### C BC #### [facility] [address] [place] [address] Dr. Luis Virgen Platelet mean volume (Bld) [Entitic vol] 10.0 fL Normal 9.5-13.5 [facility] Comment on above: Performed By: #### C BC #### [facility] [address] [place] [address] Dr. Luis Virgen PLT 337 103/ul Normal 150-450 [facility] Comment on above: Performed By: #### C BC #### [facility] [address] [place] [address] Dr. Luis Virgen RBC 4.42 106/ul Normal 4.20-5.40 [facility] Comment on above: Performed By: #### C BC #### [facility] [address] [place] [address] Dr. Luis Virgen WBC 7.6 103/ul Normal 4.0-11.0 [facility] Comment on above: Performed By: #### C BC #### [facility] [address] [place] [address] Dr. Luis Virgen FREE T4on 08-06-2021 Free T4 [Mass/Vol] 0.91 ng/dL Normal 0.76-1.46 [facility] Comment on above: Performed By: #### F T4 #### [facility] [address] [address] [address] Luis Virgen LIPID PROFILEon 08-06-2021 CHOL-HDL RATIO NORM SEE BELOW Normal [facility] Comment on above: Result Comment: 3.3 - 4.4 LOW RISK 4.4 - 7.1 AVERAGE RISK 7.1 - 11.0 MODERATE RISK >11.0 HIGH RISK Performed By: #### C MP, TSH, LIPID #### [facility] [address] [address] [address] uLis Virgen Cholesterol [Mass/Vol] 154 mg/dL Normal <=200 [facility] Comment on above: Performed By: #### C MP, TSH, LIPID #### [facility] [address] [address] [address] Luis Virgen Cholesterol in HDL [Mass/Vol] 35 mg/dL Critically low 40-60 [facility] Comment on above: Performed By: #### C MP, TSH, LIPID #### [facility] [address] [address] [address] Luis Virgen Cholesterol in LDL [Mass/Vol] 80.8 mg/dL Normal [facility] Comment on above: Performed By: #### C MP, TSH, LIPID #### [facility] [address] [address] [address] Luis Virgen Cholesterol.total/C holesterol in HDL [Mass ratio] 4.4 {ratio} Normal [facility] Comment on above: Performed By: #### C MP, TSH, LIPID #### [facility] [address] [address] [address] Luis Virgen HDL NORMAL > or = 60 mg/dl - LO W CARDIOVASCULAR RISK <40 mg/dl - HIGH CARDIOVASCULAR RISK Normal [facility] Comment on above: Performed By: #### C MP, TSH, LIPID #### [facility] [address] [address] [address] Luis Virgen LDL CALC NORMAL SEE BELOW Normal [facility] Comment on above: Result Comment: <100 mg/dl OPTIMAL 100 - 129 mg/dl NEAR OR ABOVE OPTIMAL 130 - 159 mg/dl BORDERLINE HIGH 160 - 189 mg/dl HIGH >190 mg/dl VERY HIGH Performed By: #### C MP, TSH, LIPID #### [facility] [address] [place] [address] Dr. Luis Virgen Triglyceride [Mass/Vol] 191 mg/dL Critically high <=150 [facility] Comment on above: Performed By: #### C MP, TSH, LIPID #### [facility] [address] [place] [address] Dr. Luis Virgen VLDL CALC 38.2 mg/dL Normal [facility] Comment on above: Performed By: #### C MP, TSH, LIPID #### [facility] [address] [place] [address] Dr. Luis Virgen PROF 14(COMP METB)on 022 Albumin [Mass/Vol] 4.1 g/dL Normal 3.4-5.0 [facility] Comment on above: Performed By: #### C MP, TSH, LIPID #### [facility] [address] [place] [address] Dr. Luis Virgen Albumin/Globulin [Mass ratio] 1.2 {ratio} Normal [facility] Comment on above: Performed By: #### C MP, TSH, LIPID #### [facility] [facility] [address] [place] [address] Dr. Luis Virgen ALP [Catalytic activity/Vol] 73 U/L Normal 46-116 [facility] Comment on above: Performed By: #### C MP, TSH, LIPID #### [facility] [address] [place] [address] Dr. Luis Virgen ALT [Catalytic activity/Vol] 24 U/L Normal 14-59 [facility] Comment on above: Performed By: #### C MP, TSH, LIPID #### [facility] [address] [place] [address] Dr. Luis Virgen Anion gap [Moles/Vol] 13.2 mmol/L Normal [facility] Comment on above: Performed By: #### C MP, TSH, LIPID #### [facility] [address] [address] [address] Luis Virgen AST [Catalytic activity/Vol] 11 U/L Critically low 15-37 [facility] Comment on above: Performed By: #### C MP, TSH, LIPID #### [facility] [address] [address] [address] Luis Virgen Bilirubin [Mass/Vol] 0.8 mg/dL Normal 0.2-1.0 [facility] Comment on above: Performed By: #### C MP, TSH, LIPID #### [facility] [address] [address] [address] Luis Virgen Calcium [Mass/Vol] 8.9 mg/dL Normal 8.5-10.1 [facility] Comment on above: Performed By: #### C MP, TSH, LIPID #### [facility] [address] [place] [address] Dr. Luis Virgen Chloride [Moles/Vol] 103 mmol/L Normal 98-107 [facility] Comment on above: Performed By: #### C MP, TSH, LIPID #### [facility] [address] [address] [address] Luis Virgen CO2 [Moles/Vol] 27.5 mmol/L Normal 21.0-32.0 [facility] Comment on above: Performed By: #### C MP, TSH, LIPID #### [facility] [address] [place] [address] Dr. Luis Virgen Creatinine [Mass/Vol] 0.71 mg/dL Normal 0.55-1.02 [facility] Comment on above: Performed By: #### C MP, TSH, LIPID #### [facility] [address] [place] [address] Dr. Luis Virgen EGFR-AF ETHIOPIAN >60 Normal >=60 [facility] Comment on above: Performed By: #### C MP, TSH, LIPID #### [facility] [address] [place] [address] Dr. Luis Virgen EGFR-NON AF ETHIOPIAN >60 Normal >=60 [facility] Comment on above: Performed By: #### C MP, TSH, LIPID #### [facility] [address] [address] [address] Luis Virgen Globulin (S) [Mass/Vol] 3.5 g/dL Normal [facility] Comment on above: Performed By: #### C MP, TSH, LIPID #### [facility] [address] [address] [address] Luis Virgen Glucose [Mass/Vol] 101 mg/dL Normal 74-106 [facility] Comment on above: Performed By: #### C MP, TSH, LIPID #### [facility] [address] [address] [address] Luis Virgen Potassium [Moles/Vol] 4.7 mmol/L Normal 3.5-5.1 [facility] Comment on above: Performed By: #### C MP, TSH, LIPID #### [facility] [address] [place] [address] Dr. Luis Virgen Protein [Mass/Vol] 7.6 g/dL Normal 6.4-8.2 [facility] Comment on above: Performed By: #### C MP, TSH, LIPID #### [facility] [address] [address] [address] Luis Virgen Sodium [Moles/Vol] 139 mmol/L Normal 136-145 [facility] Comment on above: Performed By: #### C MP, TSH, LIPID #### [facility] [address] [address] [address] Luis Virgen Urea nitrogen [Mass/Vol] 9.0 mg/dL Normal 7.0-18.0 [facility] Comment on above: Performed By: #### C MP, TSH, LIPID #### [facility] [address] [address] [address] Luis Virgen Urea nitrogen/Creatinine [Mass ratio] 12.7 mg/mg Normal [facility] Comment on above: Performed By: #### C MP, TSH, LIPID #### [facility] [address] [address] [address] Luis Virgen TSHon 08-06-2021 TSH 0.924 uIU/mL Normal 0.358-3.740 [facility] Comment on above: Performed By: #### C MP, TSH, LIPID #### [facility] [address] [place], [place] [address] Dr. Luis Virgen TSH RANGE SEE BELOW Normal [facility] Comment on above: Result Comment: <0.3 4 UIU/ml HYPERTHYROID 0.34-5.60 UIU/ml EUTHYROID >5.60 UIU/ml HYPOTHYROID Performed By: #### C MP, TSH, LIPID #### [facility] [address] [place], [place] [address] Dr. Luis Virgen Vital Signs Date Time Vital Sign Value Performing Clinician Faci lity 12-10-2023 13:12-0400 Body mass index (BMI) [Ratio] 30.76 kg/m2 [employer] Work Phone: [facility] 12-10-2023 13:12-0400 Body weight 73.85 kg [employer] Work Phone: [facility] 12-10-2023 13:12-0400 Diastolic blood pressure 78 mm[Hg] JDCPhosphatezio DO Work Phone: [facility] 12-10-2023 13:12-0400 Systolic blood pressure 116 mm[Hg] Orlin Gloria DO Work Phone: [facility] Healthcare Encounters Encounter Date Encounter Type Care Provider Facility Start: 02-02-2024 End: 02-02-2024 Clinisync Result Encounter Generic External Data Provider [facility] Unsolicited Start: 02-02-2024 End: 02-02-2024 Clinisync Result Encounter Generic External Data Provider [facility] Unsolicited Start: 01-31-2024 End: 01-31-2024 Clinisync Result Encounter Orlin Gloria DO Work Phone: [facility] Unsolicited Start: 01-31-2024 End: 01-31-2024 Clinisync Result Encounter Orlin Gloria DO Work Phone: [facility] Unsolicited Start: 01-29-2024 End: 01-29-2024 Clinisync Result Encounter Generic External Data Provider [facility] Unsolicited Start: 01-29-2024 End: 01-29-2024 Clinisync Result Encounter Generic External Data Provider [facility] Unsolicited Start: 01-27-2024 End: 01-27-2024 Clinisync Result Encounter Orlin Gloria DO Work Phone: [facility] Unsolicited Start: 01-27-2024 End: 01-27-2024 Clinisync Result Encounter Orlin Gloria DO Work Phone: [facility] Unsolicited Start: 01-25-2024 End: 01-25-2024 Clinisync Result Encounter Generic External Data Provider [facility] Unsolicited Start: 01-25-2024 End: 01-25-2024 Clinisync Result Encounter Generic External Data Provider [facility] Unsolicited Start: 01-23-2024 End: 01-23-2024 [facility] Result Encounter Generic External Data Provider [facility] Unsolicited Start: 01-23-2024 End: 01-23-2024 [facility]inis[facility] Result Encounter Generic External Data Provider [facility] Unsolicited Start: 01-21-2024 End: 01-21-2024 Clinisync Result Encounter Generic External Data Provider [facility] Unsolicited Start: 01-21-2024 End: 01-21-2024 Clinisync Result Encounter Generic External Data Provider [facility] Unsolicited Start: 01-19-2024 End: 01-19-2024 Clinisync Result Encounter Generic External Data Provider [facility] Unsolicited Start: 01-19-2024 End: 01-19-2024 Clinisync Result Encounter Generic External Data Provider [facility] Unsolicited Start: 12-10-2023 End: 12-10-2023 Bamboo flowsheet Orlin Gloria DO Work Phone: [facility] Start: 12-10-2023 End: 12-18-2023 Bamboo flowsheet Orlin Gloria DO Work Phone: [facility] Start: 12-10-2023 End: 12-18-2023 Clinisync Result Encounter Generic External Data Provider [facility] Unsolicited Start: 12-10-2023 End: 12-10-2023 ambulatory ORLIN CASTRO Not Available Start: 12-10-2023 End: 12-10-2023 Patient encounter procedure Orlin Mcclellando DO Work Phone: [facility] Work Phone: [...] Start: 06-30-2023 End: 06-30-2023 ambulatory Dar Brody Facility:[facility] Start: 06-30-2023 End: 06-30-2023 ambulatory MD Dar Brody Work Phone: [facility] Work Phone: Start: 06-30-2023 End: 06-30-2023 Departed Referred MD Dar Brody Work Phone: [facility] Start: 05-26-2023 End: 05-26-2023 ambulatory АННА HA Not Available Start: 02-20-2022 End: 02-20-2022 ambulatory MARLYN HA Facility:[facility] Start: 11-06-2021 End: 11-06-[address] ORLIN CASTRO Facility:[facility] Start: 08-20-2021 End: 08-20-2021 ambulatory MARLYN MOOREA MONTY Facility:[facility] Start: 08-06-2021 End: 08-07-2021 ambulatory MARLYN HA Facility:[facility] Procedures Date Procedure Procedure Detail Performing Clinician Start: 02-02-2024 [facility] Core y Gloria DO Work Phone: Start: 01-31-2024 [facility] Gene pacheco External Data Provider Start: 01-29-2024 [facility] Core y Gloria DO Work Phone: Start: 01-27-2024 [facility] Gene pacheco External Data Provider Start: 01-25-2024 [facility]CG Core y Gloria DO Work Phone: Start: 01-23-2024 [facility] Core y Gloria DO Work Phone: Start: 01-21-2024 [facility] Core y Gloria DO Work Phone: Start: 01-19-2024 [facility] Core y Gloria DO Work Phone: Start: 12-10-2023 Urine test visual color cmprsn meths Orlin Gloria DO Work Phone: Start: 12-10-2023 IGP,APTIMA HPV,AGE GDLN Orlin Francozio DO Work Phone: Start: 11-25-2022 Microscopic observat ion [Identifier] in Cervix by Cyto stain Orlin Francozio DO Work Phone: Plan of Treatment Date Care Activity Detail Author Start: 11-25-2025 Screening for malign ant neoplasm of cervix [facility] Start: 12-15-2024 End: 12-15-2024 Patient encounter procedure 12/15/2024 3:00 PM EDT Office Visit [facility] [address] [place] [address] Orlin Castro, DO [address] [place], [place] [id number] [facility] Start: 09-07-2024 End: 09-07-2024 Patient encounter procedure 09/07/2024 1:00 PM EDT Office Visit [facility] [address] [place] [address] Анна Ha, USED CAR RENOVATOR [address] [place] [address] [facility] Start: 03-02-2024 End: 03-02-2024 Patient encounter procedure 03/02/2024 9:40 AM EST Office Visit [facility] [address] [place] [address] Анна Ha, USED [employer] RENOVATOR [address] [place] [address] [facility] Start: 02-11-2024 End: 02-11-2024 ambulatory 02/11/2024 10:00 AM EST Initial [facility] [address] [place] [place] [address] [facility] Start: 02-11-2024 End: 02-11-2024 Professional / ancillary services management 02/11/2024 9:30 AM EST Ancillary Procedure [facility] [address] [place] [place] [address] [facility] Start: 2018 Screening for malign ant neoplasm of cervix HPV/Cotest [facility] Cytology Cervical or vaginal smear or scraping study Pap Smear Pathology and Cytology Routine Well woman exam with routine gynecological exam Ordered: 12/10/2023 [facility] Work Phone: Comment on above: Ordered: 12/10/2023 Human papilloma viru s DNA [Presence] in Unspecified specimen by Probe with amplification HPV DNA probe, amplified Microbiology Routine Well woman exam with routine gynecological exam Ordered: 12/10/2023 [facility] Comment on above: Ordered: 12/10/2023 Immunizations Immunization Date Immunization Notes Care Provider Joan ornelas 12-08-2017 influenza, seasonal, injectable, preservative free Orlin Castro DO Work Phone: [facility] Payers Date Payer Category Payer Self-pay 2022 Medicaid (Managed Care) [employer] Member Subscriber Plan / Payer (Effective 2022-Present) Name: Shreya Marshall Relation to Subscriber: Self Name: Shreya Marshall Payer ID: Not on file Group ID: Not on file Type: Not on file Address: [address] [phone] 1988 Unknown [id number] 593 1988 Unknown [id number]. 593 1988 Unknown [id number]. 593 1988 Unknown [id number]. 593 1988 Unknown [id number]. 1259 1988 Unknown [id number]. 1259 1988 Unknown [id number] [id number]. 1259 1988 Unknown [id number] [id number]. 1259 1959 Unknown [id number] Private Health Insurance [employer] [id number] Unknown [id number] 531 Social History Date Type Detail Facility Start: 03-05-2019 Tobacco smoking status NHIS Never smoked tobacco (finding) [facility] Start: 1990 Sex Assigned At Female [facility] Start: 10-30-2022 Tobacco smoking status NHIS Ex-smoker [facility] End: 02-24-2014 History of tobacco use Current smoker [facility] End: 02-24-2014 History of tobacco [...] to any clubs or organizations such as christianity groups, unions, fraternal or athletic groups, or [...] Healthcare History of Present illness Narrative 12-10-2023 Isatu Gilbert LPN - 12/10/2023 1:00 PM EDT [...] abnormal pap smear PAP SMEAR 03/07/2014 [facility] MEDICATION MANAGEMENT Drug Therapy -SVT TONSILLECTOMY 1992 [...] nursing note reviewed. Exam conducted with a imaging technician present. Vitals: Estimated body mass index is [...] Orlin Castro DO documented in this encounter [facility] Healthcare Evaluation note Note Date & Type Note Facility Evaluation note No assessment information availa [facility] Work Phone: Evaluation note [...] examination Missed menses documented in this encounter [facility] Healthcare Summary Purpose Family History No Family History Records FoundNo Family History Records FoundNo Family History Records Found Advance Directives Advance Directive Response Recorded Date/ Time Advance Directives No January 3:45am Additional Source Comments INFORMATION SOURCE (unrecogn ized section and content) DATE CREATED AUTHOR 02/22/2022 [facility] DATE CREATED AUTHOR AUTHOR'S ORGANIZ ATION 07/03/2023 [facility] DATE CREATED AUTHOR AUTHOR'S ORGANIZ ATION 12/12/2023 [facility] Special[facility] Care Teams (unrecognized sec tion and content) Team Status: Active Member Role Status Dates Dar Brody MD Primary Care Provider Active Team Status: Inactive Member Role Status Dates Dar Brody MD Primary Care Provider Active Start: June 30, 2023 End: June 30, 2023 Orlin Castro Attending Provider Active Start: Viky brewer 2023 End: June 30, 2023 Corrosion Control Specialist Relationship Specialty Start Date End Date Parag Bradley MD [address] [place] [address] PCP - General Family Medicine 08/14/22 Анна Ha NP [address] [place] [id number] [facility] 08/25/23 Corrosion Control Specialist Relationship Specialty Start Date End Date Parag Bradley MD [address] [place] [address] PCP - [facility] 08/14/22 Анна Ha NP [address] [place] [address] [facility] 08/25/23 Corrosion Control Specialist Relationship Specialty Start Date End Date Parag Bradley MD [address] [place] [address] PCP - [facility] 08/14/22 Анна Ha NP [address] [place] [address] [facility] 08/25/23 Goals (unrecognized section and content) [...] BE BASED ON THE PRIMARY CLINICAL RECORDS. [facility] provides no warranty or guarantee of the accuracy or completeness of information in this document.
== END 2024-02-11 09:37 | disposition home or self-care (01) ==
LOC: NOMS 09:37
PROVIDERS: PCP Nurse Practitioner; Visit Provider Obstetrics & Gynecology
DX: Z34.01 Encounter for supervision of normal first pregnancy, first trimester (principal); Z3A.08 8 weeks gestation of pregnancy; N92.6 Irregular menstruation, unspecified
CPT/HCPCS: 76817

== ENCOUNTER 2024-02-27 14:29 | Outpatient (OUT) | payer OTHER, SELFPAY ==
--- OUTSIDE RECORDS SUMMARY | 2024-02-27 14:39 | XMS_ITS | CCD ---
Author Organization [facility] Inform ion Partnership [facility] Care Team Providers Care P 3 Armament/Ordnance Ima Technician Name Role Phone AICHHOLZ, RUBBER AND POUNDER АННА Primary Care Unavailable PAY, DR LIN Admitting Unavailable PAY, DR LIN Attending Unavailable GISELLE RESTREPO Consulting Unavailable GLORIA, DR ORDAZ Admitting Unavailable GLORIA, DR ORDAZ Attending Unavailable AICHHOLZ, RUBBER AND POUNDER АННА Primary Care Unavailable GLORIA, DR ORDAZ Consulting Unavailable AICHHOLZ, RUBBER AND POUNDER АННА Admitting Unavailable AICHHOLZ, RUBBER AND POUNDER АННА Attending Unavailable AICHHOLZ, RUBBER AND POUNDER АННА Primary Care Unavailable AICHHOLZ, RUBBER AND POUNDER АННА Consulting Unavailable AICHHOLZ, RUBBER AND POUNDER АННА Primary Care Unavailable DON, DR BIRD Admitting Unavailable DON, DR BIRD Attending Unavailable LAURO, GISELLE ROBERTSON Consulting Unavailable PHOEBE ALFARO Consulting Unavailable Dar Brody Primary Care Unavailable Orlin Castro Attending Unavailable Orlin Castro Admitting Unavailable MD Dar Brody Primary Care Provider Orlin Castro Attending Provider [phone] Parag Bradley MD Primary Care Provider [phone] Aichholange MAINTENANCE FITTER, Анна Unavailable MONTY АННА Attending Unavailable SHADE JACKSON Attending Unavailable MONTY АННА Attending Unavailable ORLIN CASTRO Attending Unavailable Allergies Allergy Classification Reported Allergen(s) Allergy Type Date of Onset Reaction(s) Facility (14 sources) Other Propensity to adverse reactions 3 [facility] Medications Current Medications Medication Drug Class(es) Dates Sig (Normalized) Sig (Original) levonorgestrel 0.914025 mg/hr intrauterine system (1 source) Progestin, Progestin-containi [...] PO Twice daily March 05, 2019 1:00am MV-Min-Fe Fum-FA-DHA ( 1 PO) (2 sources) MV-Min- Fe Fum-FA-DHA ( 1 PO) Take 1 each by mouth Daily Active Progesterone 200 MG suppository (10 sources) Start: 01-19-2024 End: 04-18-2024 Progesterone 200 MG suppository Indications: History of miscarriage Insert 200 mg into the vagina at bedtime Insert suppository vaginally every night at bedtime until 12 weeks gestation 30 suppository 2 01/19/2024 04/18/2024 Active traZODone hydrochloride 100 mg oral tablet (13 sources) Serotonin Reuptake Inhibitor Start: 02-26-2024 End: 03-27-2024 take 1 tablet by mouth at bedtime traZODone (Desyrel) 100 MG tablet Indications: Primary insomnia Take 1 tablet (100 mg) by mouth at bedtime 30 tablet 2 02/26/2024 03/27/2024 Active Start: 09-02-2023 take 1 tablet by bere th at bedtime traZODone (Desyrel) 100 MG tablet [...] Problem Date Documented Date Episodic/Chronic Cardiac dysrhythmias (14 sources) Supraventricular tachycardia; Translations: [Supraventricular tachycardia] Onset: 12-09-2019 05-26-2023 Chronic Headache; including migraine (1 source) Migraine 05-16-2017 Chronic Influenza (1 source) Influenza due to other identified influenza virus with other respiratory manifestations; Translations: [FLU D/T OTH ID FLU VIR OTH RSP MANF] Onset: 02-22-2022 Episodic Menstrual disorders (3 sources) Missed period; Translations: [Irregular menstruation, unspecified] 12-10-2023 Chronic Miscellaneous mental health disorders (1 source) Primary insomnia; Translations: [Primary insomnia] 02-25-2024 Chronic Mood disorders (20 sources) Depressive disorder; Translations: [Depression] Onset: 09-01-2023 Resolved: 09-01-2023 09-01-2023 Chronic Other aftercare (1 source) 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 hormonal contraceptives; Translations: [USP HORMONAL CONTRACEPTIVES] Onset: 02-22-2022 Episodic Other aftercare (1 source) Other termite treater (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 therapy; Translations: [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 DRUG THERAPY] Onset: 02-22-2022 Episodic Other bone disease and musculoskeletal deformities (1 source) Costal chondritis; 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 [Tietze]] 03-05-2019 Episodic Other nutritional; endocrine; and metabolic disorders (1 source) Obesity, unspecified; Translations: [OBESITY UNSPECIFIED] Onset: 08-08-2021 Chronic Other nutritional; endocrine; and metabolic disorders (14 sources) Body mass index 30+ - obesity; Translations: [Obesity, unspecified] Onset: 05-26-2023 05-26-2023 Chronic Other and delivery including normal (2 sources) ; Translations: [Encounter for supervision of normal , unspecified, unspecified trimester] 02-11-2024 Episodic Screening and history of mental health and [...] [CONTACT W/AND (SUSP) EXPOS COVID-19] Onset: 02-22-2022 Unclassified (1 source) OB Reminders Onset: 02-11-2024 02-11-2024 Past or Other Problems Problem Classification Problem [...] Onset: 08-20-2021 Episodic Other non-traumatic joint disorders (14 sources) Pain of left wrist; Translations: [Pain [...] UNSPECIFIED] Onset: 08-06-2021 Episodic Residual codes; unclassified (14 sources) Insomnia; Translations: [Insomnia, unspecified] Onset: 02-27-2023 02-27-2023 Episodic Unclassified (1 source) COUGH, UNSPECIFIED; Translations: [COUGH, UNSPECIFIED] Onset: 02-20-2022 Results Test Name Value Interpretation Reference Range Facility HCG ( test) Ql (U)o n 02-11-2024 Interpretation and review of laboratory results Abnormal [facility] Preg Test, Ur Positive Negative [facility] Urinalysis macro (dipstick) panel (U)on 02-11-2024 Bilirubin, UA Positive Negative - 4(70) +++ mg/dL [facility] Comment on above: small Blood, UA Positive Negative - 50 Richy/mcL [facility] Comment on above: trace-lysed Clarity, UA Clear [facility] Color, UA Yellow [facility] Glucose, UA Negative Negative - 2000(110) ++++ mg/dL [facility] Interpretation and review of laboratory results Abnormal [facility] Ketones, UA Positive Negative - 160(16) ++++ mg/dL [facility] Comment on above: trace Leukocytes, UA Trace Negative - 500+++ Tano/mcL [facility] Nitrite, UA Negative Negative - Positive [facility] pH, UA 6 5 - 9 [facility] Protein, UA Positive Negative - 2000(20) ++++ mg/dL [facility] Comment on above: 100 Spec Grav, UA 1.03 1 - 1.03 [facility] Urobilinogen, UA 0.2 0.2 - 12 mg/dL [facility] PREG QUANT HCGon 024 HCG QUANTITATIVE 96216 mIU/mL [facility] Comment on above: 5-50 0.2-1 WEEK 50-500 1-2 WEEKS 100-5,000 2-3 WEEKS 500-10,000 3-4 WEEKS 1,000-50,000 4-5 WEEKS 10,000-100,000 5-6 WEEKS 15,000-200,000 6-8 WEEKS 10,000-100,000 2-[facility]ANT HCGon 024 HCG QUANTITATIVE 61319 mIU/mL [facility] Comment on above: 5-50 0.2-1 WEEK 50-500 1-2 WEEKS 100-5,000 2-3 WEEKS 500-10,000 3-4 WEEKS 1,000-50,000 4-5 WEEKS 10,000-100,000 5-6 WEEKS 15,000-200,000 6-8 WEEKS 10,000-100,000 2-3 MON[facility] PREG QUANT HCGon 024 HCG QUANTITATIVE 75155 mIU/mL [facility] Comment on above: 5-50 0.2-1 WEEK 50-500 1-2 WEEKS 100-5,000 2-3 WEEKS 500-10,000 3-4 WEEKS 1,000-50,000 4-5 WEEKS 10,000-100,000 5-6 WEEKS 15,000-200,000 6-8 WEEKS 10,000-100,000 2-3 MONTHS [facility] PREG QUANT HCGon 024 HCG QUANTITATIVE 54151 mIU/mL [facility] Comment on above: 5-50 0.2-1 WEEK 50-500 1-2 WEEKS 100-5,000 2-3 WEEKS 500-10,000 3-4 WEEKS 1,000-50,000 4-5 WEEKS 10,000-100,000 5-6 WEEKS 15,000-200,000 6-8 WEEKS 10,000-100,000 2-3 MONTHS [facility] PREG QUANT HCGon 024 HCG QUANTITATIVE 8911 mIU/mL [facility] Comment on above: 5-50 0.2-1 WEEK 50-500 1-2 WEEKS 100-5,000 2-3 WEEKS 500-10,000 3-4 WEEKS 1,000-50,000 4-5 WEEKS 10,000-100,000 5-6 WEEKS 15,000-200,000 6-8 WEEKS 10,000-100,000 2-3 MONTHS [facility] PREG QUANT HCGon 024 HCG QUANTITATIVE 4641 mIU/mL [facility] Comment on above: 5-50 0.2-1 WEEK 50-500 1-2 WEEKS 100-5,000 2-3 WEEKS 500-10,000 3-4 WEEKS 1,000-50,000 4-5 WEEKS 10,000-100,000 5-6 WEEKS 15,000-200,000 6-8 WEEKS 10,000-100,000 2-3 MONTHS [facility] PREG QUANT HCGon 024 HCG QUANTITATIVE 2241 mIU/mL [facility] Comment on above: 5-50 0.2-1 WEEK 50-500 1-2 WEEKS 100-5,000 2-3 WEEKS 500-10,000 3-4 WEEKS 1,000-50,000 4-5 WEEKS 10,000-100,000 5-6 WEEKS 15,000-200,000 6-8 WEEKS 10,000-100,000 2-3 MONTHS [facility] PREG QUANT HCGon 024 HCG QUANTITATIVE 884 mIU/mL [facility] Comment on above: 5-50 0.2-1 WEEK 50-500 1-2 WEEKS 100-5,000 2-3 WEEKS 500-10,000 3-4 WEEKS 1,000-50,000 4-5 WEEKS 10,000-100,000 5-6 WEEKS 15,000-200,000 6-8 WEEKS 10,000-100,000 2-3 MONTHS [facility] IGP,APTIMA HPV,AGE GDLNon AGE GDLN ACOG TESTING Note . [facility] Comment on above: TESTS RESULT FLAG U NITS REF RANGE LAB Clinician Provided Cytology Information Source.............Cervix;Endocervix No. of containers..01 ThinPrep Vial Age Algo ACOG Sylvia... FLAG LEGEND: L-Low Normal,H-High Normal,LL-Alert Low,HH-Alert High <-Panic Low,>-Panic High,A-Abnormal,AA-Critical Abnormal Performed at: 01 =[address] [id number] Amber Tilley MD, HPV APTIMA Negative Negative [facility] Comment on above: This nucleic acid am plification test detects fourteen high- risk HPV types (16,18,31,33,35,39,45,51,52,56,58,59,66,68) without differentiation. Performed at: =[address] [id number] Paint Booth Operator: Amber Tilley MD, Phone: [phone] Performed at: [address] [id number] Paint Booth Operator: Amber Tilley MD, Phone: [phone] IGP, APTIMA HPV, RFX 16/18,45 Note . [facility] Comment on above: TESTS RESULT FLAG UN ITS REF RANGE LAB DIAGNOSIS: 02 NEGATIVE FOR INTRAEPITHELIAL LESION OR MALIGNANCY. REACTIVE CELLULAR CHANGES AND/OR REPAIR ARE PRESENT. Specimen adequacy: 02 Satisfactory for evaluation. Endocervical and/or squamous metaplastic cells (endocervical component) are present. Performed by: Peggy Gandhi, Supervisor Sulfuric Acid Plant (ASCP) Electronically si... 02 Divya Hoffman MD, [...] High,A-Abnormal,AA-Critical Abnormal Performed at: 02 WB [facility] [address] [phone] Amber Tilley MD, BRUSH-SPATULA CERVIX ENDOCERVIX [facility] HCG ( test) Ql (U)o n 12-10-2023 Interpretation and review of laboratory results Normal [facility] Preg Test, Ur Negative [facility] [place] 06-30-2023 L Specimen: [id number] Received: 07/01/23 Status: WEN [place] Num: [id number] Spec Type: Surgical Subm Dr: Orlin Castro Tissues: A Products of Conception - Spontaneous or Missed (POC) Procedures: HE/3, Gross/Micro L4 Age/ Patient Sex Location Account Attending Physician Shreya Marshall 32/F [facility] [id number] Orlin Castro SPEC NUM: [id number] RECD: 07/01/23 STATUS: WEN [place] NUM: [id number] [place]: 06/30/[address]: Orlin Castro ENTERED: 07/01/[address]: Rosey,Lab SPEC TYPE: Surgical DEPT: JENIFER [...] spongy harman tissue consistent with villous tissue. Certified Nurse Midwife sections are submitted in A1?A3 to include the villous tissue in A1. Clinical history: Missed TW ---- Specimen: [id number] Received: 07/01/23 Status: WEN [place] Num: [id number] Spec Type: Surgical Subm Dr: Orlin Castro Tissues: A Products of Conception - Spontaneous or Missed (POC) Procedures: LOU Gross/Maksim L4 ---- Patient: Shreya Marshall [id number] (Continued) ---- Specimen: [id number] Received: 07/01/23 (Continued) Signed (signature on file) Shen Virgen MD 07/02/23 1859 ---- Specimen: [id number] Received: 07/01/23 Status: WEN [place] Num: [id number] Spec Type: Surgical Subm Dr: Orlin Castro Tissues: A Products of Conception - Spontaneous or Missed (POC) Procedures: HE/3, Gross/Micro L4 ---- Patient: RolandoShreya D [id number] (Continued) ---- Specimen: [id number] Received: 07/01/23 (Continued) CPT Codes 97990 ---- ---- Specimen: [id number] Received: 07/01/23 Status: WEN [place] Num: [id number] Spec Type: Surgical Subm Dr: Orlin Castro Tissues: A Products of Conception - Spontaneous or Missed (POC) Procedures: Gross/Micro L4 ---- Patient: Shreya Marshall [id number] (Continued) ---- Signed (signature on file) Chin-Rishi Virgen MD 07/02/23 185 Normal [facility]on 01-25 SARS-CoV-2 (COVID-19) RNA JUAN+probe Ql (Unsp spec) Not detected Normal NOT DETECTED [facility] Comment on above: Result Comment: This test is not yet approved or cleared by the [place] FDA. When there are no FDA-approved or cleared tests available, and other criteria are met, FDA can make tests available under an emergency access mechanism called an Emergency Use Authorization (EUA). The EUA for this test is supported by the [place] of Health and Human Service's (HHS's) declaration [...] SARS-CoV-2. Performed By: #### C VDTB #### [facility] [address] [address] [address] Luis Virgen INFLUENZA A AND B AGon 02-20 [facility] BELOW Normal [facility] Comment on above: Result Comment: Nega tive for Flu B protein antigen. Infection due to Flu B cannot be ruled out. Flu B antigen in the sample may be below the detection limit of the test. Performed By: #### I NFLUAB #### [facility] [address] [address] [address] Luis Virgen INFLUENZA A AG Positive Abnormal NEGATIVE SEE COMMENT [facility] Comment on above: Performed By: #### I NFLUAB #### [facility] [address] [address] [address] Luis Virgen INFLUENZA B AG Negative Normal NEGATIVE SEE COMMENT [facility] Comment on above: Performed By: #### I NFLUAB #### [facility] [address] [place] [address] Dr. Luis Virgen XR CHEST 1 Von 02-20-2022 XR CHEST 1 V EXAM: CHEST 1 VIEW HISTORY: COUGH TECHNIQUE: Chest, one view. COMPARISON: None. FINDINGS: Lungs are clear. No focal consolidation, pleural effusion, or pneumothorax. Pulmonary vasculature is within normal limits. Cardiomediastinal silhouette is normal. IMPRESSION: 1. No acute cardiopulmonary disease. Electronically authenticated by: PHOEBE ALFARO Date: 2022-02-20 17:46 Normal [facility] PAP ACOG PANEL 2: 30 to 65on 11-13-2021 . . Normal [facility] Comment on above: Result Comment: Perf ormed at: WB Performed By: #### [id number] #### [facility] [address] [place] [address] Dr. Luis Virgen Age Gdln ACOG Testing 30-65 Normal [facility] Comment on above: Performed By: #### [id number] #### [facility] [address] [place] [address] Dr. Luis Virgen DIAGNOSIS: Comment Normal [facility] Comment on above: Result Comment: NEGA TIVE FOR INTRAEPITHELIAL LESION OR MALIGNANCY. Performed at: WB Performed By: #### [id number] #### [facility] [address] [place] [address] Dr. Luis Virgen HPV Aptima Negative Normal Negative [facility] Comment on above: Result Comment: This nucleic acid amplification test detects fourteen high-risk HPV types (16,18,31,33,35,39,45,51,52,56,58,59,66,68) without differentiation. Performed at: =G Performed By: #### [id number] #### [facility] [address] [place] [address] Dr. Luis Virgen Methodology: Comment Normal [facility] Comment on above: Result Comment: This liquid based ThinPrep(R) pap test was screened with the use of an image guided system. Performed at: WB Performed By: #### [id number] #### [facility] [address] [place] [address] Dr. Luis Virgen Note: Comment Normal [facility] Comment on above: Result Comment: The Pap smear is a screening test designed to aid in the detection of premalignant and malignant conditions of the uterine cervix. It is not a diagnostic procedure and should not be used as the sole means of detecting cervical cancer. Both false-positive and false-negative reports do occur. . Performed at: WB Performed By: #### [id number] #### [facility] [address] [place] [address] Dr. Luis Virgen Performed by: Comment Normal [facility] Comment on above: Result Comment: Maureen Del Cid Supervisor Sulfuric Acid Plant (ASCP) Performed at: WB Performed By: #### [id number] #### [facility] [address] [place] [address] Dr. Luis Virgen Specimen adequacy: Comment Normal [facility] Comment on above: Result Comment: Sati sfactory for evaluation. Endocervical and/or squamous metaplastic cells (endocervical component) are present. Performed at: WB Performed By: #### [id number] #### [facility] [address] [place] [address] Dr. Luis Virgen URon 08-20-2021 , QUAL Negative Normal NEGATIVE [facility] Comment on above: Performed By: #### P REGU #### [facility] [address] [address] [address] Luis Virgen CBC AUTO DIFFon 08-06-2021 BASO # 0.0 103/ul Normal 0.0-0.1 [facility] Comment on above: Performed By: #### C BC #### [facility] [address] [address] [address] Luis Virgen Basophils/100 WBC (Bld) 0.3 % Normal 0.2-2.0 [facility] Comment on above: Performed By: #### C BC #### [facility] [address] [place] [address] Dr. Luis Virgen EO # 0.0 103/ul Normal 0.0-0.7 [facility] Comment on above: Performed By: #### C BC #### [facility] [address] [place] [address] Dr. Luis Virgen Eosinophils/100 WBC (Bld) 0.3 % Critically low 0.9-7.0 [facility] Comment on above: Performed By: #### C BC #### [facility] [address] [place] [address] Dr. Luis Virgen Erythrocyte distribution width (RBC) [Ratio] 12.6 % Normal 11.0-15.0 [facility] Comment on above: Performed By: #### C BC #### [facility] [address] [place] [address] Dr. Luis Virgen Hematocrit (Bld) [Volume fraction] 41.5 % Normal 36.0-48.0 [facility] Comment on above: Performed By: #### C BC #### [facility] [address] [place] [address] Dr. Luis Virgen Hemoglobin (Bld) [Mass/Vol] 13.5 g/dL Normal 12.0-16.0 [facility] Comment on above: Performed By: #### C BC #### [facility] [address] [place] [address] Dr. Luis Virgen IG # 0.03 10e3/ul Normal 0.00-0.03 [facility] Comment on above: Performed By: #### C BC #### [facility] [address] [place] [address] Dr. Luis Virgen IG % 0.4 % Normal 0.0-0.5 [facility] Comment on above: Performed By: #### C BC #### [facility] [address] [place] [address] Dr. Luis Virgen LYMPH # 2.4 103/ul Normal 1.2-3.8 [facility] Comment on above: Performed By: #### C BC #### [facility] [address] [place] [address] Dr. Luis Virgen Lymphocytes/100 WBC (Bld) 31.8 % Normal 20.5-60.0 [facility] Comment on above: Performed By: #### C BC #### [facility] [address] [place] [address] Dr. Luis Virgen MANUAL DIFF REQ NO Normal [facility] Comment on above: Performed By: #### C BC #### [facility] [address] [place] [address] Dr. Luis Virgen MCH (RBC) [Entitic mass] 30.5 pg Normal 26.7-34.0 [facility] Comment on above: Performed By: #### C BC #### [facility] [address] [place] [address] Dr. Luis Virgen MCHC (RBC) [Mass/Vol] 32.5 g/dL Normal 29.9-35.2 [facility] Comment on above: Performed By: #### C BC #### [facility] [address] [place] [address] Dr. Luis Virgen MCV (RBC) [Entitic vol] 93.9 fL Normal 81.0-99.0 [facility] Comment on above: Performed By: #### C BC #### [facility] [address] [place] [address] Dr. Luis Virgen MONO # 0.6 103/ul Normal 0.3-0.8 [facility] Comment on above: Performed By: #### C BC #### [facility] [address] [place] [address] Dr. Luis Virgen Monocytes/100 WBC (Bld) 7.4 % Normal 1.7-12.0 [facility] Comment on above: Performed By: #### C BC #### [facility] [address] [place] [address] Dr. Luis Virgen NEUT # 4.5 103/ul Normal 1.4-6.5 [facility] Comment on above: Performed By: #### C BC #### [facility] [address] [place] [address] Dr. Luis Virgen Neutrophils/100 WBC (Bld) 59.8 % Normal 43.0-75.0 [facility] Comment on above: Performed By: #### C BC #### [facility] [address] [place] [address] Dr. Luis Virgen Platelet mean volume (Bld) [Entitic vol] 10.0 fL Normal 9.5-13.5 [facility] Comment on above: Performed By: #### C BC #### [facility] [address] [place] [address] Dr. Luis Virgen PLT 337 103/ul Normal 150-450 [facility] Comment on above: Performed By: #### C BC #### [facility] [address] [place] [address] Dr. Luis Virgen RBC 4.42 106/ul Normal 4.20-5.40 [facility] Comment on above: Performed By: #### C BC #### [facility] [address] [place] [address] Dr. Luis Virgen WBC 7.6 103/ul Normal 4.0-11.0 [facility] Comment on above: Performed By: #### C BC #### [facility] [address] [place] [address] Dr. Luis Virgen FREE T4on 08-06-2021 Free T4 [Mass/Vol] 0.91 ng/dL Normal 0.76-1.46 [facility] Comment on above: Performed By: #### F T4 #### [facility] [address] [address] [address] Luis Virgen LIPID PROFILEon 08-06-2021 CHOL-HDL RATIO NORM SEE BELOW Normal [facility] Comment on above: Result Comment: 3.3 - 4.4 LOW RISK 4.4 - 7.1 AVERAGE RISK 7.1 - 11.0 MODERATE RISK >11.0 HIGH RISK Performed By: #### C MP, TSH, LIPID #### [facility] [address] [address] [address] Luis Virgen Cholesterol [Mass/Vol] 154 mg/dL Normal <=200 [facility] Comment on above: Performed By: #### C MP, TSH, LIPID #### [facility] [address] [address] [address] uLis Virgen Cholesterol in HDL [Mass/Vol] 35 mg/dL Critically low 40-60 [facility] Comment on above: Performed By: #### C MP, TSH, LIPID #### [facility] [address] [address] [address] Luis Virgen Cholesterol in LDL [Mass/Vol] 80.8 mg/dL Normal [facility] Comment on above: Performed By: #### C MP, TSH, LIPID #### [facility] [address] [address] [address] Luis Virgen Cholesterol.total/C holesterol in HDL [Mass ratio] 4.4 {ratio} Normal [facility] Comment on above: Performed By: #### C MP, TSH, LIPID #### [facility] [address] [address] [address] Luis Virgen HDL NORMAL > or = 60 mg/dl - LO W CARDIOVASCULAR RISK <40 mg/dl - HIGH CARDIOVASCULAR RISK Normal [facility] [facility] Comment on above: Performed By: #### C MP, TSH, LIPID #### [facility] [address] [address] [address] Luis Virgen LDL CALC NORMAL SEE BELOW Normal [facility] Comment on above: Result Comment: <100 mg/dl OPTIMAL 100 - 129 mg/dl NEAR OR ABOVE OPTIMAL 130 - 159 mg/dl BORDERLINE HIGH 160 - 189 mg/dl HIGH >190 mg/dl VERY HIGH Performed By: #### C MP, TSH, LIPID #### [facility] [address] [address] [address] Luis Virgen Triglyceride [Mass/Vol] 191 mg/dL Critically high <=150 [facility] Comment on above: Performed By: #### C MP, TSH, LIPID #### [facility] [address] [address] [address] Luis Virgen VLDL CALC 38.2 mg/dL Normal [facility] Comment on above: Performed By: #### C MP, TSH, LIPID #### [facility] [address] [address] [address] Luis Virgen PROF 14(COMP METB)on 022 Albumin [Mass/Vol] 4.1 g/dL Normal 3.4-5.0 [facility] Comment on above: Performed By: #### C MP, TSH, LIPID #### [facility] [address] [place] [address] Dr. Luis Virgen Albumin/Globulin [Mass ratio] 1.2 {ratio} Normal [facility] Comment on above: Performed By: #### C MP, TSH, LIPID #### [facility] [address] [place] [address] Dr. Luis Virgen ALP [Catalytic activity/Vol] 73 U/L Normal 46-116 [facility] Comment on above: Performed By: #### C MP, TSH, LIPID #### [facility] [address] [place] [address] Dr. Luis Virgen ALT [Catalytic activity/Vol] 24 U/L Normal 14-59 [facility] Comment on above: Performed By: #### C MP, TSH, LIPID #### [facility] [address] [place] [address] Dr. Luis Virgen Anion gap [Moles/Vol] 13.2 mmol/L Normal [facility] Comment on above: Performed By: #### C MP, TSH, LIPID #### [facility] [address] [address] [address] Luis Virgen AST [Catalytic activity/Vol] 11 U/L Critically low 15-37 [facility] Comment on above: Performed By: #### C MP, TSH, LIPID #### [facility] [address] [place] [address] Dr. Luis Virgen Bilirubin [Mass/Vol] 0.8 mg/dL Normal 0.2-1.0 [facility] Comment on above: Performed By: #### C MP, TSH, LIPID #### [facility] [address] [place] [address] Dr. Luis Virgen Calcium [Mass/Vol] 8.9 mg/dL Normal 8.5-10.1 [facility] Comment on above: Performed By: #### C MP, TSH, LIPID #### [facility] [address] [place] [address] Dr. Luis Virgen Chloride [Moles/Vol] 103 mmol/L Normal 98-107 [facility] Comment on above: Performed By: #### C MP, TSH, LIPID #### [facility] [address] [place] [address] Dr. Luis Virgen CO2 [Moles/Vol] 27.5 mmol/L Normal 21.0-32.0 [facility] Comment on above: Performed By: #### C MP, TSH, LIPID #### [facility] [address] [place] [address] Dr. Luis Virgen Creatinine [Mass/Vol] 0.71 mg/dL Normal 0.55-1.02 [facility] Comment on above: Performed By: #### C MP, TSH, LIPID #### [facility] [address] [place] [address] Dr. Luis Virgen EGFR-AF LEBANESE >60 Normal >=60 [facility] Comment on above: Performed By: #### C MP, TSH, LIPID #### [facility] [address] [place] [address] Dr. Luis Virgen EGFR-NON AF LEBANESE >60 Normal >=60 [facility] Comment on above: Performed By: #### C MP, TSH, LIPID #### [facility] [address] [place] [address] Dr. Luis Virgen Globulin (S) [Mass/Vol] 3.5 g/dL Normal [facility] Comment on above: Performed By: #### C MP, TSH, LIPID #### [facility] [address] [place] [address] Dr. Luis Virgen Glucose [Mass/Vol] 101 mg/dL Normal 74-106 [facility] Comment on above: Performed By: #### C MP, TSH, LIPID #### [facility] [address] [place] [address] Dr. Luis Virgen Potassium [Moles/Vol] 4.7 mmol/L Normal 3.5-5.1 [facility] Comment on above: Performed By: #### C MP, TSH, LIPID #### [facility] [address] [place] [address] Dr. Luis Virgen Protein [Mass/Vol] 7.6 g/dL Normal 6.4-8.2 [facility] Comment on above: Performed By: #### C MP, TSH, LIPID #### [facility] [address] [place] [address] Dr. Luis Virgen Sodium [Moles/Vol] 139 mmol/L Normal 136-145 [facility] Comment on above: Performed By: #### C MP, TSH, LIPID #### [facility] [address] [place] [address] Dr. Luis Virgen Urea nitrogen [Mass/Vol] 9.0 mg/dL Normal 7.0-18.0 [facility] Comment on above: Performed By: #### C MP, TSH, LIPID #### [facility] [address] [place] [address] Dr. Luis Virgen Urea nitrogen/Creatinine [Mass ratio] 12.7 mg/mg Normal [facility] Comment on above: Performed By: #### C MP, TSH, LIPID #### [facility] [address] [place] [address] Dr. Luis Virgen TSHon 08-06-2021 TSH 0.924 uIU/mL Normal 0.358-3.740 [facility] Comment on above: Performed By: #### C MP, TSH, LIPID #### [facility] [address] [place], [place] [address] Dr. Luis Virgen TSH RANGE SEE BELOW Normal [facility] Comment on above: Result Comment: <0.3 4 UIU/ml HYPERTHYROID 0.34-5.60 UIU/ml EUTHYROID >5.60 UIU/ml HYPOTHYROID Performed By: #### C MP, TSH, LIPID #### [facility] [address] [place], [place] [address] Dr. Luis Virgen Vital Signs Date Time Vital Sign Value Performing Clinician Faci lity 02-11-2024 10:34-0500 Body mass index (BMI) [Ratio] 30.69 kg/m2 [facility] Nurse [facility] 02-11-2024 10:34-0500 Body weight 73.66 kg [facility] Nurse [facility] 02-11-2024 10:34-0500 Diastolic blood pressure 77 mm[Hg] [facility] Nurse [facility] 02-11-2024 10:34-0500 Systolic blood pressure 110 mm[Hg] [facility] Nurse [facility] 12-10-2023 13:12-0400 Body mass index (BMI) [Ratio] 30.76 kg/m2 Orlin Gloria DO Work Phone: [facility] 12-10-2023 13:12-0400 Body weight 73.85 kg Orlin Gloria DO Work Phone: [facility] 12-10-2023 13:12-0400 Diastolic blood pressure 78 mm[Hg] Orlin Gloria DO Work Phone: [facility] 12-10-2023 13:12-0400 Systolic blood pressure 116 mm[Hg] Orlin Gloria DO Work Phone: [facility] Encounters Encounter Date Encounter Type Care Provider Facility Start: 02-25-2024 End: 02-26-2024 Refill Анна Ha MAINTENANCE FITTER Work Phone: [facility] Comment on above: Primary insomnia Start: 02-11-2024 End: 02-11-2024 ambulatory АННА MONTY Not Available Start: 02-11-2024 End: 02-11-2024 Office outpatient visit 5 minutes [facility] Gloria Nurse [facility] Comment on above: GA: 7w5d Start: 02-02-2024 End: 02-02-2024 Clinisync Result Encounter [...] preventive med est patient 18-39 yrs Orlin Gloria DO Work Phone: [facility] Comment on above: Well woman exam with routine gynecological exam; Missed menses Start: 09-01-2023 Patient encounter status Orlin Gloria DO Work Phone: [facility] Start: 09-01-2023 End: 09-01-2023 ambulatory АННА HA Not Available Start: 07-14-2023 End: 07-14-2023 ambulatory SHADE JACKSON Not Available Start: 06-30-2023 End: 06-30-2023 ambulatory Dar Brody [facility] Start: 06-30-2023 End: 06-30-2023 ambulatory MD Dar Brody Work Phone: [facility] Work Phone: Start: 06-30-2023 End: 06-30-2023 Departed Referred MD Dar Brody Work Phone: [facility] Start: 05-26-2023 End: 05-26-2023 ambulatory АННА HA Not Available Start: 02-20-2022 End: 02-20-2022 ambulatory [employer] АННА HA Facility:[facility] Start: 11-06-2021 End: 11-06-[address] ORLIN CASTRO Facility:[facility] Start: 08-20-2021 End: 08-20-2021 ambulatory MARLYN HA Facility:[facility] Start: 08-06-2021 End: 08-07-2021 ambulatory [employer] АННА HA Facility:[facility] Procedures Date Procedure Procedure Detail Performing Clinician Start: 02-11-2024 Urnls dip stick/tabl et rgnt non-auto w/o micrscp Orlin Gloria DO Work Phone: Start: 02-02-2024 [facility] PREG [facility]ANT [facility]CG Core y Gloria DO Work Phone: Start: 01-31-2024 [facility] PREG QUANT HCG Gene pacheco External Data Provider Start: 01-29-2024 TB PREG QUANT HCG Core y Gloria DO Work Phone: Start: 01-27-2024 TB PREG QUANT HCG Gene pacheco External Data [...] Phone: Start: 12-10-2023 IGP,APTIMA HPV,AGE GDLN Orlin Gloria DO Work Phone: Start: 11-25-2022 Microscopic observat ion [Identifier] in Cervix by Cyto stain Oriln Castro DO Work Phone: Plan of Treatment Date Care Activity Detail Author Start: 11-25-2025 [facility] Start: 12-15-2024 End: 12-15-2024 Patient encounter procedure 12/15/2024 3:00 PM EDT Office Visit [facility] [address] [place] [address] [place] [id number] Orlin Castro [address] [place], [place] [id number] [facility] Start: 09-07-2024 End: 09-07-2024 Patient encounter procedure 09/07/2024 1:00 PM EDT Office Visit [facility] [address] [place] [phone] Анна Ha, MAINTENANCE FITTER [address] [place] [phone] [facility] Start: 03-10-2024 End: 03-10-2024 Patient encounter procedure 03/10/2024 2:20 PM EST Routine [facility] [address] [place] [address] Orlin Castro [address] [place] [address] [facility] Start: 03-02-2024 End: 03-02-2024 Patient encounter procedure 03/02/2024 9:40 AM EST Office Visit [facility] [address] [place] [phone] Анна Ha, MAINTENANCE FITTER [address] [place] [phone] [facility] Start: 02-11-2024 End: 02-10-2025 ABO/Rh ABO/Rh Lab Routine Missed menses , unspecified gestational age Expected: 02/11/2024 (Approximate), Expires: 02/10/2025 [facility] Comment on above: Expected: 02/11/2024 (Approximate), Expires: 02/10/2025 Start: 02-11-2024 End: 02-10-2025 Blood type and Indirect antibody screen panel - Blood Type and screen Lab Routine Missed menses , unspecified gestational age Expected: 02/11/2024 (Approximate), Expires: 02/10/2025 [facility] Work Phone: Comment on above: Expected: 02/11/2024 (Approximate), Expires: 02/10/2025 Start: 02-11-2024 End: 02-10-2025 Drugs of abuse panel - Urine by Screen method Rapid drug screen, urine Lab Routine , unspecified gestational age Encounter for supervision of normal first in first trimester Expected: 02/11/2024 (Approximate), Expires: 02/10/2025 [facility] Comment on above: Expected: 02/11/2024 (Approximate), Expires: 02/10/2025 Start: 02-11-2024 End: 02-10-2025 US Pelvis transvaginal US OB transvaginal Imaging Routine Missed menses Expected: 02/11/2024 (Approximate), Expires: 02/10/2025 [facility] Comment on above: Expected: 02/11/2024 (Approximate), Expires: 02/10/2025 Start: 02-11-2024 End: 02-11-2024 ambulatory 02/11/2024 10:00 AM EST Initial [facility] [address] [place] [address] [facility] Start: 02-11-2024 End: 02-11-2024 Professional / ancillary services management 02/11/2024 9:30 AM EST Ancillary Procedure [facility] [address] [place] [address] [facility] Start: 2018 Screening for malign ant neoplasm of cervix HPV/Cotest [facility] Bacteria identified in Urine by Culture Urine culture Microbiology Routine Missed menses Ordered: 02/11/2024 [facility] Comment on above: Ordered: 02/11/2024 CBC W Auto Different ial panel - Blood CBC and differential Lab Routine Missed menses , unspecified gestational age Ordered: 02/11/2024 [facility] Comment on above: Ordered: 02/11/2024 Cytology Cervical or vaginal smear or scraping study Pap Smear Pathology and Cytology Routine Well woman exam with routine gynecological exam Ordered: 12/10/2023 [facility] Work Phone: Comment on above: Ordered: 12/10/2023 Hemoglobin A1c/Hemoglobin.total in Blood Hemoglobin A1c Lab Routine Missed menses , unspecified gestational age Ordered: 02/11/2024 [facility] Comment on above: Ordered: 02/11/2024 Hepatitis B virus surface Ag [Presence] in Serum or Plasma by Immunoassay Hepatitis B surface antigen Lab Routine Missed menses , unspecified gestational age Ordered: 02/11/2024 [facility] Comment on above: Ordered: 02/11/2024 Hepatitis C virus Ab [Presence] in Serum or Plasma by Immunoassay Hepatitis C antibody Lab Routine Missed menses , unspecified gestational age Ordered: 02/11/2024 [facility] Comment on above: Ordered: 02/11/2024 HIV-1/HIV-2 antigen/antibody combination immunoassay HIV-1 and HIV-2 antibodies Lab Routine Missed menses , unspecified gestational age Ordered: 02/11/2024 [facility] Comment on above: Ordered: 02/11/2024 Human papilloma viru s DNA [Presence] in Unspecified specimen by Probe with amplification HPV DNA probe, amplified Microbiology Routine Well woman exam with routine gynecological exam Ordered: 12/10/2023 [facility] Comment on above: Ordered: 12/10/2023 Reagin Ab [Presence] in Serum by RPR RPR Lab Routine Missed menses , unspecified gestational age Ordered: 02/11/2024 [facility] Comment on above: Ordered: 02/11/2024 Rubella antibody, IgG Rubella an tibody, IgG Lab Routine Missed menses , unspecified gestational age Ordered: 02/11/2024 [facility] Comment on above: Ordered: 02/11/2024 Immunizations Immunization Date Immunization Notes Care Provider Joan ornelas 12-08-2017 influenza, seasonal, injectable, preservative free Orlin Castro DO Work Phone: [facility] Payers Date Payer Category Payer Self-pay 2022 Medicaid (Managed Care) [employer] [id number] 1988 Unknown [id number] 1988 Unknown [id number] 593 1988 Unknown [id number] 593 1988 Unknown [id number] [id number]. 593 1988 Unknown [id number] [id number]. 1259 1988 Unknown [id number] [id number]. 1259 1988 Unknown [id number] [id number]. 9 1988 Unknown [id number]. 1259 1988 Unknown [id number] [id number]. 1259 1959 Unknown [id number] Private Health Insurance [employer] [id number] Unknown [id number] Social History Date Type Detail Facility Start: 03-05-2019 Tobacco smoking status [facility] Never smoked tobacco (finding) [facility] Start: 1990 Sex [facility]igned At Female [facility] Start: 10-30-2022 Tobacco smoking status HIIS Ex-smoker [facility] End: 02-24-2014 History of tobacco use Current smoker [facility] End: 02-24-2014 History of tobacco use Cigarette Smoker [facility] Start: 10-30-2022 Tobacco use and exposure Smokeless tobacco non-user [facility] Start: 12-10-2023 End: 02-11-2024 Alcoholic beverage intake Lifetime non-drinker (finding) [facility] Start: 05-19-2023 End: 09-01-2023 History of Social function [facility] Start: 05-19-2023 End: 09-01-2023 Social connection and isolation panel [facility] Do you belong to any clubs or organizations such as temple groups, unions, fraternal or athletic groups, or [...] Only a little [facility] (I/We) worried wheozzie er (my/our) food would run out before [...] Identifies as female gender (finding) [facility] Start: 01-02-2024 [facility] Goals Date Patient Goal Desired Activity /State Personal health goal History of Present illness Narrative 02-11-2024 Lynnette Stapleton LPN - 02/11/2024 10:00 AM EST Note Date & Type Note Facility 02-11-2024 History of Presen t illness Narrative Reason for Appointment: Patient ID: Shreya Marshall is a 33 y.o. female who presents for Amenorrhea Patient presents today for a Nurse OB Intake appointment. Patient is 7w5d with a Estimated Date of Delivery: 09/24/24 OB History Para Term AB Living 5 2 1 2 2 SAB IAB Ectopic Multiple Live Births 2 2 # Outcome Date GA Lbr Castillo/2nd Weight Sex Type Anes PTL Lv 5 Current 4 SAB 06/2023 3 Term 06/30/20 6 lb 8 oz F Vag-Spont REYNA 2 Para 2015 6 lb 12 oz M Vag-Spont REYNA 1 SAB Current Medications: has a current medication list which includes the following prescription(s): mv-min-fe fum-fa-dha, progesterone, and trazodone. Medical History: Active Ambulatory Problems Diagnosis Date Noted Insomnia [...] 25.0-29.9) SVT (supraventricular tachycardia) (CMS/HCC) Torn meniscus Family History Problem Relation Name Age of Onset Lupus Mother Hypertension Mother Heart disease Maternal Grandmother Cervical cancer Maternal Grandmother Other (Bladder Cancer) Maternal Grandfather Emphysema Maternal Grandfather COPD Maternal Grandfather Ovarian cancer Other M. Gr. Aunts Multiple sclerosis Other P. Gr. Aunt Multiple sclerosis Father's Sister Social History Tobacco Use Smoking status: Former Current packs/day: 0.00 Types: Cigarettes Quit date: 2014 Years since quittin.9 Smokeless tobacco: Never Tobacco comments: Ex-moderate cigarette smoker (10-19/day) Substance Use Topics Alcohol use: Never Comment: Caffeine: occasional Drug use: Never Past Surgical History: Procedure Laterality Date DILATION AND CURETTAGE OF UTERUS 06/30/2023 KNEE ARTHROSCOPY W/ MENISCAL REPAIR Left 2010 Torn Meniscus OTHER SURGICAL HISTORY HPV observation- abnormal pap smear PAP SMEAR 03/07/2014 [facility] Drug Therapy -SVT TONSILLECTOMY 1992 Allergies Allergen Reactions Other Powder on gloves Other Reaction(s): rash/itching Vitals: Estimated body mass index is 30.69 kg/m as calculated from the following: Height as of 09/01/23: 5' 1 . Weight as of this encounter: 162 lb 6.4 oz. BP: 110/77 Patient's last menstrual period was 12/11/2023. Assessment/Plan Diagnoses and all orders for this visit: Missed menses - Type and screen; Future - ABO/Rh; Future - CBC and differential - Hemoglobin A1c - RPR - Rubella antibody, IgG - Hepatitis B surface antigen - Hepatitis C antibody - HIV-1 and HIV-2 antibodies - Urine culture - US OB transvaginal; Future - POCT , urine manually resulted - POCT urinalysis dipstick manually resulted , unspecified gestational age - Type and screen; Future - ABO/Rh; Future - CBC and differential - Hemoglobin A1c - RPR - Rubella antibody, IgG - Hepatitis B surface antigen - Hepatitis C antibody - HIV-1 and HIV-2 antibodies - Rapid drug screen, urine; Future Encounter for supervision of normal first in first trimester - Rapid drug screen, urine; Future Nurse Note: OB Intake: Patient presents today for first OB visit. Patients history has been reviewed in great detail including any potential risks. Patient signed consent forms and patient desires testing in both trimesters. Patient currently has no complaints and has been advised to drink 6-8 glasses of water a day, eat no raw or undercooked meat, and [facility] Patient has also been advised to not change litter boxes and eat 6 small meals a day. Patient has been consulted regarding the do's and don'ts of . Patient was given labs and all questions and concerns were answered. Patient was given [place] to have completed at 10 weeks. Follow Up: Patient is to return in 4 weeks for routine OB appointment. Follow Up: Patient is to have labs drawn at directed and return to office for initial OB appointment with provider. Patient may call office as needed with any concerns or questions. Nurse Visit Completed by: Lynnette Stapleton LPN documented in this encounter [facility] History of Present illness Narrative [...] Diagnosis Date Noted Insomnia 02/27/2023 Supraventricular tachycardia ([facility]) 12/09/2019 Left wrist pain 05/03/2023 Obesity (BMI 30-39.9) 05/26/2023 Encounter for wellness examination in adult 09/01/2023 Depression (CMS/HCC) 09/01/2023 Resolved Ambulatory Problems Diagnosis Date Noted Major depressive disorder, single episode, mild (HCC) (CMS/[facility]) 09/01/2023 Past Medical History: Diagnosis Date Abnormal Pap smear of cervix 2009 Contraception management Current mild episode of major depressive disorder without prior episode (HCC) (CMS/[facility]) Degenerative joint disease of spine Encounter for [...] abnormal pap smear PAP SMEAR 03/07/2014 [facility] Drug Therapy -SVT TONSILLECTOMY 1992 [...] nursing note reviewed. Exam conducted with a lab animal technologist present. Vitals: Estimated body mass index is [...] Orlin Castro DO documented in this encounter [facility] Evaluation note Note Date & Type Note Facility [facility] Evaluation note Note Date & Type Note Facility Evaluation note Diagnosis Primary insomnia- Primary Persistent disorder of initiating or maintaining sleep Obesity (BMI 30-39.9) Encounter for wellness examination in adult- Primary Major depressive disorder, single episode, mild (HCC) ([facility]) Major depressive disorder, single episode, mild Primary insomnia Persistent disorder of initiating or maintaining sleep Obesity (BMI 30-39.9) Depression, unspecified depression type (CMS/HCC) Well woman exam with routine gynecological exam Routine gynecological examination Missed menses documented in this encounter [facility] Evaluation note Note Date & Type Note Facility Evaluation note Diagnosis Primary insomnia- Primary Persistent disorder of initiating or maintaining sleep Obesity (BMI 30-39.9) Encounter for wellness examination in adult- Primary Major depressive disorder, single episode, mild (HCC) (CMS/HCC) Major depressive disorder, single episode, mild Primary insomnia Persistent disorder of initiating or maintaining sleep Obesity (BMI 30-39.9) Depression, unspecified depression type (CMS/HCC) Missed menses , unspecified gestational age Encounter for supervision of normal first in first trimester documented in this encounter [facility] Evaluation note Note Date & Type Note Facility Evaluation note Diagnosis Primary insomnia- Primary Persistent disorder of initiating or maintaining sleep Obesity (BMI 30-39.9) Encounter for wellness examination in adult- Primary Major depressive disorder, single episode, mild (HCC) (CMS/HCC) Major depressive disorder, single episode, mild Primary insomnia Persistent disorder of initiating or maintaining sleep Obesity (BMI 30-39.9) Depression, unspecified depression type (CMS/HCC) Primary insomnia Persistent disorder of initiating or maintaining sleep documented in this encounter [facility] Summary Purpose Family History No Family History Records FoundNo Family History Records FoundNo Family History Records Found Advance Directives Advance Directive Response Recorded Date/ Time Advance Directives No January 3:45am Additional Source Comments INFORMATION SOURCE (unrecogn ized section and content) DATE CREATED AUTHOR 02/22/2022 [facility] DATE CREATED AUTHOR AUTHOR'S ORGANIZ ATION 07/03/2023 [facility] DATE CREATED AUTHOR AUTHOR'S ORGANIZ ATION 02/14/2024 [facility] EPIC Care Teams (unrecognized sec tion and content) Team Status: Active Member Role Status Dates Dar Brody MD Primary Care Provider Active Team Status: Inactive Member Role Status Dates Dar Brody MD Primary Care Provider Active Start: June 30, 2023 End: June 30, 2023 Orlin Castro Attending Provider Active Start: Viky brewer 2023 End: June 30, 2023 P 3 Armament/Ordnance Ima Technician Relationship Specialty Start Date End Date Parag Bradley MD [address] [place] [phone] PCP - General Family Medicine 08/14/22 Анна Ha NP [address] [place] [phone] [facility] 08/25/23 P 3 Armament/Ordnance Ima Technician Relationship Specialty Start Date End Date Parag Bradley MD [address] [place] [phone] PCP - [facility] 08/14/22 Анна Ha NP [address] [place] [address] [facility] 08/25/23 P 3 Armament/Ordnance Ima Technician Relationship Specialty Start Date End Date Parag Bradley MD [address] [place] [address] PCP - [facility] 08/14/22 Анна Ha NP [address] [place] [address] [facility] 08/25/23 P 3 Armament/Ordnance Ima Technician Relationship Specialty Start Date End Date Parag Bradley MD [address] [place] [address] PCP - [facility] 08/14/22 Анна Ha NP [address] [place] [address] [facility] 08/25/23 P 3 Armament/Ordnance Ima Technician Relationship Specialty Start Date End Date Parag Bradley MD [address] [place] [address] PCP [facility] 08/14/22 Анна Ha NP [address] [place] [address] [facility] - [facility] 08/25/23 Goals (unrecognized section and content) Goals may be documented in a n alternate section Reason for Visit (unrecogniz ed section and content) Reason Comments Well Women Visit Reason Comments Amenorrhea Reason Onset Date Comments Med Refill 02/25/2024 FOR RECORDS PERTAINING TO PATIENTS WHO ARE [...] BE BASED ON THE PRIMARY CLINICAL RECORDS. [employer] provides no warranty or guarantee of the accuracy or completeness of information in this document.
[2024-02-27 15:14] LABS: BOX Test Reference Lab UNITY; BOX Test Sent Out UNITY
[2024-02-27 15:14] LABS: BOX Test Reference Lab FIRELANDS
[2024-02-27 15:25] LABS: Basophils Percent Auto 0.2 % (0.2-2.0); Eosinophils Percent Auto 0.2 % (0.9-7.0); Hematocrit 39.3 % (36.0-48.0); Hemoglobin 12.7 g/dL (12.0-16.0); Immature Granulocytes Abs Auto 0.05 10^3/uL (0.00-0.03); Immature Granulocytes Pct Auto 0.4 % (0.0-0.5); Lymphocytes Absolute Auto 2.7 10^3/uL (1.2-3.8); Lymphocytes Percent Auto 23.6 % (20.5-60.0); Mean Corpuscular HGB Conc 32.3 g/dL (29.9-35.2); Mean Corpuscular Hemoglobin 30.7 pg (26.7-34.0); Mean Corpuscular Volume 94.9 fL (81.0-99.0); Mean Platelet Volume 9.5 fL (9.5-13.5); Monocytes Absolute Auto 0.6 10^3/uL (0.3-0.8); Monocytes Percent Auto 5.3 % (1.7-12.0); Neutrophils Absolute Auto 7.9 10^3/uL (1.4-6.5); Neutrophils Percent Auto 70.3 % (43.0-75.0); Platelet Count 317 10^3/uL (150-450); Red Blood Count 4.14 10^6/uL (4.20-5.40); White Blood Count 11.2 10^3/uL (4.0-11.0)
[2024-02-27 15:29] LABS: Estimated Average Glucose 108 mg/dL; Glycohemoglobin A1C 5.4 % (4.5-6.2)
[2024-02-27 15:35] LABS: Amphetamine Screen Urine NEGATIVE (NEGATIVE); Barbiturates Screen Urine NEGATIVE (NEGATIVE); Benzodiazepines Screen Urine NEGATIVE (NEGATIVE); Buprenorphine Screen Urine NEGATIVE (NEGATIVE); Cannabinoid Screen Urine NEGATIVE (NEGATIVE); Cocaine Screen Urine NEGATIVE (NEGATIVE); Methadone Screen Urine NEGATIVE (NEGATIVE); Methamphetamines Screen Urine NEGATIVE (NEGATIVE); Opiate Screen Urine NEGATIVE (NEGATIVE); Oxycodone Screen Urine NEGATIVE (NEGATIVE); Phencyclidine Screen Urine NEGATIVE (NEGATIVE); Tricyclic Antidepressant Urine NEGATIVE (NEGATIVE)
[2024-02-29 08:07] LABS: HBsAg Screen Negative (Negative); HCV Ab Non Reactive (Non Reactive); HIV Ab/p24 Ag Screen Non Reactive (Non Reactive)
[2024-02-29 09:08] LABS: Rapid Plasma Reagin, Quant Non Reactive titer (NonRea<1:1); Rubella Antibodies, IgG 4.42 index (Immune >0.99)
== END 2024-02-27 14:30 | disposition home or self-care (01) ==
LOC: LAB 14:29
PROVIDERS: PCP Nurse Practitioner; Visit Provider Obstetrics & Gynecology
DX: Z34.90 Encounter for supervision of normal pregnancy, unspecified, unspecified trimester (principal); Z36.0 Encounter for antenatal screening for chromosomal anomalies; N92.6 Irregular menstruation, unspecified
CPT/HCPCS: 36415; 80307; 83036; 85025; 86592; 86762; 86803; 86850; 86900; 86901; 87086; 87340; 87389

== ENCOUNTER 2024-04-10 10:50 | Outpatient (OUT) | payer OTHER, SELFPAY ==
--- OUTSIDE RECORDS SUMMARY | 2024-04-10 10:56 | XMS_ITS | CCD ---
Author Organization [facility] ion [facility] Care Team Providers Care Urgent Care Nurse Practitioner Name Role Phone AICHHOLZ, JAVA SQL DEVELOPER АННА Primary Care Unavailable PAY, DR LIN Admitting Unavailable PAY, DR LIN Attending Unavailable GISELLE RESTREPO Consulting Unavailable GLORIA, DR ORDAZ Admitting Unavailable GLORIA, DR ORDAZ Attending Unavailable AICHHOLZ, JAVA SQL DEVELOPER АННА Primary Care Unavailable GLORIA, DR ORDAZ Consulting Unavailable AICHHOLZ, JAVA SQL DEVELOPER АННА Admitting Unavailable AICHHOLZ, JAVA SQL DEVELOPER АННА Attending Unavailable AICHHOLZ, JAVA SQL DEVELOPER АННА Primary Care Unavailable AICHHOLZ, JAVA SQL DEVELOPER АННА Consulting Unavailable AICHHOLZ, JAVA SQL DEVELOPER АННА Primary Care Unavailable DON, DR BIRD Admitting Unavailable DON, DR BIRD Attending Unavailable GISELLE RESTREPO Consulting Unavailable PHOEBE ALFARO Consulting Unavailable MD Dar rBody Primary Care Provider Orlin Castro Attending Provider [phone] Parag Bardley MD Primary Care Provider [phone] Aichsindi MICRO PHOTOGRAPHER, Анна Unavailable Orlin Castro DO Attending Provider Orlin Castro Attending Unavailable Princess Castroy Admitting Unavailable Dar Brody Primary Care Unavailable Orlin Castro Attending Unavailable Gloria Orlin Admitting Unavailable VIDYA JACKSON Attending Unavailable AICHHOLZ, АННА Attending Unavailable VIDYA JACKSON Attending Unavailable AICHHOLZ, АННА Attending Unavailable GLORIA ORLIN Attending Unavailable GLORIA ORLIN Attending Unavailable Allergies Allergy Classification Reported Allergen(s) Allergy Type Date of Onset Reaction(s) Facility (20 sources) Other Propensity to adverse reactions 10-02-202 3 [facility] Medications Current Medications Medication Drug Class(es) Dates Sig (Normalized) Sig (Original) levonorgestrel 0.797738 mg/hr intrauterine system (2 sources) Progestin, Progestin-containi ng Intrauterine Device Start: 02-06-2017 Levonorgestrel (Mirena) 20 mcg/24 hr (5 years) Intrauterine Device Active 1 INSERT INTRAUTERI As Directed February 06, 2017 12:00am naproxen 500 mg oral tablet (2 sources) Nonsteroidal Anti-inflammatory Drug Start: 03-05-2019 take 1 tablet by mouth twice daily Naproxen (Naprosyn) 500 mg tablet Active 500 MG PO Twice daily March 05, 2019 12:00am MV-Min-Fe Fum-FA-DHA ( 1 PO) (9 sources) MV-Min- Fe Fum-FA-DHA ( 1 PO) Take 1 each by mouth Daily Active Progesterone 200 MG suppository (17 sources) Start: 01-19-2024 End: 04-18-2024 Progesterone 200 MG suppository Indications: History of miscarriage Insert 200 mg into the vagina at bedtime Insert suppository vaginally every night at bedtime until 12 weeks gestation 30 suppository 2 01/19/2024 04/18/2024 Active traZODone hydrochloride 100 mg oral tablet (20 sources) Serotonin Reuptake Inhibitor Start: 02-26-2024 End: 03-27-2024 take 1 tablet by mouth at bedtime traZODone (Desyrel) 100 MG tablet Indications: Primary insomnia Take 1 tablet (100 mg) by mouth at bedtime 30 tablet 2 02/26/2024 Active Start: 09-02-2023 take 1 tablet by ebre th at bedtime traZODone (Desyrel) 100 MG tablet Indications: Primary insomnia Take 1 tablet (100 mg) by mouth at bedtime 30 tablet 2 09/02/2023 Active Completed/Discontinued Medications Medication Drug Class(es) Dates Sig (Normalized) Sig (Original) promethazine hydrochloride 25 mg oral tablet (2 sources) Phenothiazine Start: 02-06-2017 End: 05-16-2017 take 1 tablet by mouth every six hours as needed for nausea Promethazine 25 mg Tablet Discontinued 25 MG PO Q6H as needed for Nausea February 06, 2017 12:00am May 16, 2017 1:07am Problems Active Problems Problem Classification Problem Date Documented Date Episodic/Chronic Cardiac dysrhythmias (20 sources) Supraventricular tachycardia; Translations: [Supraventricular tachycardia] Onset: 12-09-2019 05-26-2023 Chronic Headache; including migraine (2 sources) Migraine 05-16-2017 Chronic Influenza (1 source) Influenza [...] 09-01-2023 Chronic Other aftercare (1 source) 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; Translations: [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 CONTRACEPTIVES] Onset: 02-22-2022 Episodic Other aftercare (1 source) Other halfway (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 therapy; Translations: [OTH INTERMEDIATE CURRENT DRUG THERAPY] Onset: 02-22-2022 Episodic Other bone disease and musculoskeletal deformities (2 sources) Costal chondritis; 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 [Tietze]] 03-05-2019 Episodic Other nutritional; endocrine; and metabolic disorders (1 source) Obesity, unspecified; Translations: [OBESITY UNSPECIFIED] Onset: 08-08-2021 Chronic Other nutritional; endocrine; and metabolic disorders (20 sources) Body mass index 30+ - obesity; Translations: [Obesity, unspecified] Onset: 05-26-2023 05-26-2023 Chronic Other and delivery including normal (6 sources) ; Translations: [Encounter for supervision of normal , unspecified, unspecified trimester] 02-11-2024 Episodic Other screening for suspected conditions (not mental disorders or infectious disease) (10 sources) Encounter for screening for malignant neoplasm of cervix; Translations: [Alpha-fetoprotein blood test status] Onset: 11-06-2021 Episodic Residual codes; unclassified (2 sources) Gestation period, 11 weeks; Translations: [11 weeks gestation of ] 03-10-2024 Episodic Residual codes; unclassified (2 sources) Gestation period, 15 weeks; Translations: [15 weeks gestation of ] 04-07-2024 Episodic Screening and history of mental health [...] W/AND (SUSP) EXPOS COVID-19] Onset: 02-22-2022 Unclassified (8 sources) OB Reminders Onset: 02-11-2024 02-11-2024 Past or [...] Onset: 08-20-2021 Episodic Other non-traumatic joint disorders (20 sources) Pain of left wrist; Translations: [Pain in left wrist] Onset: 05-03-2023 05-26-2023 Episodic Other skin disorders (4 sources) Nonscarring hair loss, unspecified; Translations: [NONSCARRING HAIR LOSS UNSPECIFIED] Onset: 08-06-2021 Episodic Residual codes; unclassified (20 sources) Insomnia; Translations: [Insomnia, unspecified] Onset: 02-27-2023 02-27-2023 Episodic Unclassified (1 source) COUGH, UNSPECIFIED; Translations: [COUGH, UNSPECIFIED] Onset: 02-20-2022 Results Test Name Value Interpretation Reference Range Facility Urinalysis macro (dipstick) panel (U)on 04-07-2024 Bilirubin, UA Negative Negative - 4(70) +++ mg/dL [facility] Blood, UA Positive Negative - 50 Richy/mcL [facility] Comment on above: trace Clarity, UA Clear [facility] Color, UA Yellow [facility] Glucose, UA Negative Negative - 1999(110) ++++ mg/dL [facility] Interpretation and review of laboratory results Abnormal [facility] Ketones, UA Positive Negative - 160(16) ++++ mg/dL [facility] Comment on above: 15 Leukocytes, UA Negative Negative - 500+++ Tano/mcL [facility] Nitrite, UA Negative Negative - Positive [facility] pH, UA 7 5 - 9 [facility] Protein, UA Negative Negative - 1999(20) ++++ mg/dL [facility] Spec Grav, UA 1.02 1 - 1.03 [facility] Urobilinogen, UA 1.0 0.2 - 12 mg/dL [facility] Urinalysis macro (dipstick) panel (U)on 03-10-2024 Bilirubin, UA Negative Negative - 4(70) +++ mg/dL [facility] Blood, UA Positive Negative - 50 Richy/mcL [facility] Comment on above: trace-intact Clarity, UA Clear [facility] Color, UA Yellow [facility] Glucose, UA Negative Negative - 1999(110) ++++ mg/dL [facility] Interpretation and review of laboratory results Abnormal [facility] Ketones, UA Negative Negative - 160(16) ++++ mg/dL [facility] Leukocytes, UA Negative Negative - 500+++ Tano/mcL [facility] Nitrite, UA Negative Negative - Positive [facility] pH, UA 6.5 5 - 9 [facility] Protein, UA Negative Negative - 1999(20) ++++ mg/dL [facility] Spec Grav, UA 1.01 1 - 1.03 [facility] Urobilinogen, UA 0.2 0.2 - 12 mg/dL [facility] BOX TESTon 02-27-2024 BOX TEST SENT OUT [facility] BOX1 [facility] BOX2 02/27/24 [facility] BOX [facility] Urine Cultureon 02-27-2024 Bacteria identified Cx Nom (U) No Growth 2 Days PERFORMED BY: [facility] [address] [place] [address] PATHOLOGIST CLINICAL APPEALS SPECIALIST SHEREE MCCARTHY M.D. Normal [facility] Comment on above: Performed By: #### C UU #### [facility] [address] HCG ( test) Ql (U)o n 02-11-2024 Interpretation and review of laboratory results Abnormal [facility] Preg Test, Ur Positive Negative [facility] Urinalysis macro (dipstick) panel (U)on 02-11-2024 Bilirubin, UA Positive Negative - 4(70) +++ mg/dL [facility] Comment on above: small Blood, UA Positive Negative - 50 Richy/mcL [facility] Comment on above: trace-lysed Clarity, UA Clear [facility] Color, UA Yellow [facility] Glucose, UA Negative Negative - 2000(110) ++++ mg/dL [facility] Interpretation and review of laboratory results Abnormal [facility] Ketones, UA Positive Negative - 160(16) ++++ mg/dL [facility] Comment on above: trace Leukocytes, UA Trace Negative - 500+++ Tano/mcL [facility] Nitrite, UA Negative Negative - Positive [facility] pH, UA 6 5 - 9 [facility] Protein, UA Positive Negative - 2000(20) ++++ mg/dL [facility] Comment on above: 100 Spec Grav, UA 1.03 1 - 1.03 [facility] Urobilinogen, UA 0.2 0.2 - 12 mg/dL [facility] TBH PREG QUANT HCGon 024 HCG QUANTITATIVE 89508 mIU/mL [facility] Comment on above: 5-50 0.2-1 WEEK 50-500 1-2 WEEKS 100-5,000 2-3 WEEKS 500-10,000 3-4 WEEKS 1,000-50,000 4-5 WEEKS 10,000-100,000 5-6 WEEKS 15,000-200,000 6-8 WEEKS 10,000-100,000 2-3 MONTHS [facility] PREG QUANT HCGon 024 HCG QUANTITATIVE 03546 mIU/mL [facility] Comment on above: 5-50 0.2-1 WEEK 50-500 1-2 WEEKS 100-5,000 2-3 WEEKS 500-10,000 3-4 WEEKS 1,000-50,000 4-5 WEEKS 10,000-100,000 5-6 WEEKS 15,000-200,000 6-8 WEEKS 10,000-100,000 2-3 MONTHS [facility] PREG QUANT HCGon 024 HCG QUANTITATIVE 14111 mIU/mL [facility] Comment on above: 5-50 0.2-1 WEEK 50-500 1-2 WEEKS 100-5,000 2-3 WEEKS 500-10,000 3-4 WEEKS 1,000-50,000 4-5 WEEKS 10,000-100,000 5-6 WEEKS 15,000-200,000 6-8 WEEKS 10,000-100,000 2-3 MONTHS [facility] PREG QUANT HCGon 024 HCG QUANTITATIVE 41463 mIU/mL [facility] Comment on above: 5-50 0.2-1 WEEK 50-500 1-2 WEEKS 100-5,000 2-3 WEEKS 500-10,000 3-4 WEEKS 1,000-50,000 4-5 WEEKS 10,000-100,000 5-6 WEEKS 15,000-200,000 6-8 WEEKS 10,000-100,000 2-3 MONTHS [facility] PREG QUANT HCGon 024 HCG QUANTITATIVE 8911 mIU/mL [facility] Comment on above: 5-50 0.2-1 WEEK 50-500 1-2 WEEKS 100-5,000 2-3 WEEKS 500-10,000 3-4 WEEKS 1,000-50,000 4-5 WEEKS 10,000-100,000 5-6 WEEKS 15,000-200,000 6-8 WEEKS 10,000-100,000 2-3 MONTHS [facility] PREG QUANT HCGon 024 HCG QUANTITATIVE 4641 mIU/mL [facility] Comment on above: 5-50 0.2-1 WEEK 50-500 1-2 WEEKS 100-5,000 2-3 WEEKS 500-10,000 3-4 WEEKS 1,000-50,000 4-5 WEEKS 10,000-100,000 5-6 WEEKS 15,000-200,000 6-8 WEEKS 10,000-100,000 2-3 MONTHS [facility] PREG QUANT HCGon 01-20-2 024 HCG QUANTITATIVE 2241 mIU/mL [facility] Comment on above: 5-50 0.2-1 WEEK 50-500 1-2 WEEKS 100-5,000 2-3 WEEKS 500-10,000 3-4 WEEKS 1,000-50,000 4-5 WEEKS 10,000-100,000 5-6 WEEKS 15,000-200,000 6-8 WEEKS 10,000-100,000 2-3 MONTHS [facility] PREG QUANT HCGon 01-18- 024 HCG QUANTITATIVE 884 mIU/mL [facility] Comment on above: 5-50 0.2-1 WEEK 50-500 1-2 WEEKS 100-5,000 2-3 WEEKS 500-10,000 3-4 WEEKS 1,000-50,000 4-5 WEEKS 10,000-100,000 5-6 WEEKS 15,000-200,000 6-8 WEEKS 10,000-100,000 2-3 MONTHS [facility] IGP,APTIMA HPV,AGE GDLNon AGE GDLN ACOG TESTING Note . [facility] Comment on above: TESTS RESULT FLAG UN ITS REF RANGE LAB Clinician Provided Cytology Information Source.............Cervix;Endocervix No. of containers..01 ThinPrep Vial Age Algo ACOG Sylvia... FLAG LEGEND: L-Low Normal,H-High Normal,LL-Alert Low,HH-Alert High <-Panic Low,>-Panic High,A-Abnormal,AA-Critical Abnormal Performed at: 01 =[address] [phone] Amber Tilley MD, HPV APTIMA Negative Negative [facility] Comment on above: This nucleic acid am plification test detects fourteen high- risk HPV types (16,18,31,33,35,39,45,51,52,56,58,59,66,68) without differentiation. Performed at: =[address] [id number] Recruiting Specialist: Amber Tilley MD, Phone: [phone] Performed at: [address] [id number] Recruiting Specialist: Amber Tilley MD, Phone: [phone] IGP, APTIMA HPV, RFX 16/18,45 Note . [facility] Comment on above: TESTS RESULT FLAG UN ITS REF RANGE LAB DIAGNOSIS: 02 NEGATIVE FOR INTRAEPITHELIAL LESION OR MALIGNANCY. REACTIVE CELLULAR CHANGES AND/OR REPAIR ARE PRESENT. Specimen adequacy: 02 Satisfactory for evaluation. Endocervical and/or squamous metaplastic cells (endocervical component) are present. Performed by: 02 Peggy Gandhi, Cash Van Salesperson (ASCP) Electronically si... 02 Divya Hoffman MD, [...] Low,>-Panic High,A-Abnormal,AA-Critical Abnormal Performed at: [address] [phone] Amber Tilley MD, BRUSH-SPATULA CERVIX ENDOCERVIX [facility] HCG ( test) Ql (U)o n 12-10-2023 Interpretation and review of laboratory results Normal [facility] Preg Test, Ur Negative [facility] [place] 06-30-2023 L Specimen: [id number] Received: 07/01/23 Status: WEN [place] Num: [id number] Spec Type: Surgical Subm Dr: Orlin Castro Tissues: A Products of Conception - Spontaneous or Missed (POC) Procedures: HE/3, Gross/Micro L4 Age/ Patient Sex Location Account Attending Physician Shreya Marshall 32/F LABELL [id number] Orlin Castro SPEC NUM: [id number] RECD: 07/01/23 STATUS: WEN DUVALL NUM: [id number] [place]: 06/30/[address]: Orlin Castro ENTERED: [...] spongy harman tissue consistent with villous tissue. Tap Builder sections are submitted in A1?A3 to include the villous tissue in A1. Clinical history: Missed TW ---- Specimen: [id number] Received: 07/01/23 Status: WEN Hurleylamin Num: [id number] Spec Type: Surgical Subm Dr: Orlin Castro Tissues: A Products of Conception - Spontaneous or Missed (POC) Procedures: HE/Ruthy, Gross/Micro L4 ---- Patient: Shreya Marshall [id number] (Continued) ---- Specimen: [id number] Received: 07/01/23 (Continued) Signed (signature on file) Shen Virgen MD 07/02/23 1859 ---- Specimen: [id number] Received: 07/01/23 Status: WEN Jadiel Num: [id number] Spec Type: Surgical Subm Dr: Orlin Castro Tissues: A Products of Conception - Spontaneous or Missed (POC) Procedures: Meghan BLAKE/Maksim L4 ---- Patient: Shreya Marshall [id number] (Continued) ---- Specimen: [id number] Received: 07/01/23 (Continued) CPT Codes 16184 ---- ---- Specimen: [id number] Received: 07/01/23-1305 Status: WEN [place] Num: [id number] Spec Type: Surgical Subm Dr: Orlin Castro Tissues: A Products of Conception - Spontaneous or Missed (POC) Procedures: HE/3, Gross/Micro L4 ---- Patient: Shreya Marshall [id number] (Continued) ---- Signed (signature on file) Shen Virgen MD 07/02/231858 Normal [facility] Covid-19 PCR (CVDTBH)on 01-25 SARS-CoV-2 (COVID-19) RNA JUAN+probe Ql (Unsp spec) Not detected Normal NOT DETECTED [facility] Comment on above: Result Comment: This test is not yet approved or cleared by the [place] FDA. When there are no FDA-approved or cleared tests available, and other criteria are met, FDA can make tests available under an emergency access mechanism called an Emergency Use Authorization (EUA). The EUA for this test is supported by the [place] of Health and Human Service's (HHS's) declaration [...] consistent with SARS-CoV-2. Performed By: #### [facility] #### [facility] [address] [place] [address] Dr. Luis Virgen INFLUENZA A AND B [facility] 01-25 [facility] SEE BELOW Normal [facility] Comment on above: Result Comment: Nega tive for Flu B protein antigen. Infection due to Flu B cannot be ruled out. Flu B antigen in the sample may be below the detection limit of the test. Performed By: #### I NFLUAB #### [facility] [address] [place] [address] Dr. Luis Virgen INFLUENZA A AG Positive Abnormal NEGATIVE SEE COMMENT [facility] Comment on above: Performed By: #### I NFLUAB #### [facility] [address] [place] [address] Dr. Luis Virgen INFLUENZA B AG Negative Normal NEGATIVE SEE COMMENT [facility] Comment on above: Performed By: #### I NFLUAB #### [facility] [address] [place] [address] Dr. Luis Virgen XR CHEST 1 Von 02-20-2022 XR CHEST 1 V EXAM: CHEST 1 VIEW HISTORY: COUGH TECHNIQUE: Chest, one view. COMPARISON: None. FINDINGS: Lungs are clear. No focal consolidation, pleural effusion, or pneumothorax. Pulmonary vasculature is within normal limits. Cardiomediastinal silhouette is normal. IMPRESSION: 1. No acute cardiopulmonary disease. Electronically authenticated by: PHOEBE ALFARO Date: 2022-02-20 17:46 Normal [facility] PAP ACOG PANEL 2: 30 to 65on 11-13-2021 . . Normal [facility] Comment on above: Result Comment: Perf ormed at: WB Performed By: #### [id number] #### [facility] [address] [address] [address] Luis Virgen Age Gdln ACOG Testing 30-65 Normal [facility] Comment on above: Performed By: #### 4 [id number] #### [facility] [address] [address] [address] Luis Virgen DIAGNOSIS: Comment Normal [facility] Comment on above: Result Comment: NEGA TIVE FOR INTRAEPITHELIAL LESION OR MALIGNANCY. Performed at: WB Performed By: #### 4 [id number] #### [facility] [address] [place] [address] Dr. Luis Virgen HPV Aptima Negative Normal Negative [facility] Comment on above: Result Comment: This nucleic acid amplification test detects fourteen high-risk HPV types (16,18,31,33,35,39,45,51,52,56,58,59,66,68) without differentiation. Performed at: =G Performed By: #### 4 [id number] #### [facility] [address] [address] [address] Luis Virgen Methodology: Comment Normal [facility] Comment on above: Result Comment: This liquid based ThinPrep(R) pap test was screened with the use of an image guided system. Performed at: WB Performed By: #### 4 [id number] #### [facility] [address] [place] [address] Dr. Luis Virgen Note: Comment Normal [facility] Comment on [...] Performed at: WB Performed By: #### [id number] #### [facility] [address] [place] [address] Dr. Luis Virgen Performed by: Comment Normal [facility] Comment on above: Result Comment: Maureen Del Cid Cash Van Salesperson (ASCP) Performed at: WB Performed By: #### [id number] #### [facility] [address] [place] [address] Dr. Luis Virgen Specimen adequacy: Comment Normal [facility] Comment on above: Result Comment: Sati sfactory for evaluation. Endocervical and/or squamous metaplastic cells (endocervical component) are present. Performed at: WB Performed By: #### 4 [id number] #### [facility] [address] [place] [address] Dr. Luis Virgen URon 08-20-2021 , QUAL Negative Normal NEGATIVE [facility] Comment on above: Performed By: #### P REGU #### [facility] [address] [place] [address] Dr. Luis Virgen CBC AUTO DIFFon 08-06-2021 BASO # 0.0 103/ul Normal 0.0-0.1 [facility] Comment on above: Performed By: #### C BC #### [facility] [address] [place] [address] Dr. Luis Virgen Basophils/100 WBC (Bld) 0.3 % Normal 0.2-2.0 [facility] Comment on above: Performed By: #### C BC #### [facility] [address] [place] [address] Dr. Luis Virgen EO # 0.0 103/ul Normal 0.0-0.7 [facility] Comment on above: Performed By: #### C BC #### [facility] [address] [place] [address] Dr. Luis Virgen Eosinophils/100 WBC (Bld) 0.3 % Critically low 0.9-7.0 [facility] Comment on above: Performed By: #### C BC #### [facility] [address] [place] [address] Dr. Luis Virgen Erythrocyte distribution width (RBC) [Ratio] 12.6 % Normal 11.0-15.0 [facility] Comment on above: Performed By: #### C BC #### [facility] [address] [place] [address] Dr. Luis Virgen Hematocrit (Bld) [Volume fraction] 41.5 % Normal 36.0-48.0 [facility] Comment on above: Performed By: #### C BC #### [facility] [address] [place] [address] Dr. Luis Virgen Hemoglobin (Bld) [Mass/Vol] 13.5 g/dL Normal 12.0-16.0 [facility] Comment on above: Performed By: #### C BC #### [facility] [address] [place] [address] Dr. Luis Virgen IG # 0.03 10e3/ul Normal 0.00-0.03 [facility] Comment on above: Performed By: #### C BC #### [facility] [address] [place] [address] Dr. Luis Virgen IG % 0.4 % Normal 0.0-0.5 [facility] Comment on above: Performed By: #### C BC #### [facility] [address] [place] [address] Dr. Luis Virgen LYMPH # 2.4 103/ul Normal 1.2-3.8 [facility] Comment on above: Performed By: #### C BC #### [facility] [address] [place] [address] Dr. Luis Virgen Lymphocytes/100 WBC (Bld) 31.8 % Normal 20.5-60.0 [facility] Comment on above: Performed By: #### C BC #### [facility] [address] [place] [address] Dr. Luis Virgen MANUAL DIFF REQ NO Normal [facility] Comment on above: Performed By: #### C BC #### [facility] [address] [place] [address] Dr. Luis Virgen MCH (RBC) [Entitic mass] 30.5 pg Normal 26.7-34.0 [facility] Comment on above: Performed By: #### C BC #### [facility] [address] [address] [address] Luis Virgen MCHC (RBC) [Mass/Vol] 32.5 g/dL Normal 29.9-35.2 [facility] Comment on above: Performed By: #### C BC #### [facility] [address] [address] [address] Luis Virgen MCV (RBC) [Entitic vol] 93.9 fL Normal 81.0-99.0 [facility] Comment on above: Performed By: #### C BC #### [facility] [address] [place] [address] Dr. Luis Virgen MONO # 0.6 103/ul Normal 0.3-0.8 [facility] Comment on above: Performed By: #### C BC #### [facility] [address] [place] [address] Dr. Luis Virgen Monocytes/100 WBC (Bld) 7.4 % Normal 1.7-12.0 [facility] Comment on above: Performed By: #### C BC #### [facility] [address] [place] [address] Dr. Luis Virgen NEUT # 4.5 103/ul Normal 1.4-6.5 [facility] Comment on above: Performed By: #### C BC #### [facility] [address] [place] [address] Dr. Luis Virgen Neutrophils/100 WBC (Bld) 59.8 % Normal 43.0-75.0 [facility] Comment on above: Performed By: #### C BC #### [facility] [address] [place] [address] Dr. Luis Virgen Platelet mean volume (Bld) [Entitic vol] 10.0 fL Normal 9.5-13.5 [facility] Comment on above: Performed By: #### C BC #### [facility] [address] [place] [address] Dr. Luis Virgen PLT 337 103/ul Normal 150-450 [facility] Comment on above: Performed By: #### C BC #### [facility] [address] [address] [address] Luis Virgen RBC 4.42 106/ul Normal 4.20-5.40 [facility] Comment on above: Performed By: #### C BC #### [facility] [address] [place] [address] Dr. Luis Virgen WBC 7.6 103/ul Normal 4.0-11.0 [facility] Comment on above: Performed By: #### C BC #### [facility] [address] [place] [address] Dr. Luis Virgen FREE T4on 08-06-2021 Free T4 [Mass/Vol] 0.91 ng/dL Normal 0.76-1.46 [facility] Comment on above: Performed By: #### F T4 #### [facility] [address] [place] [address] Dr. Luis Virgen LIPID PROFILEon 08-06-2021 CHOL-HDL RATIO NORM SEE BELOW Normal [facility] Comment on above: Result Comment: 3.3 - 4.4 LOW RISK 4.4 - 7.1 AVERAGE RISK 7.1 - 11.0 MODERATE RISK >11.0 HIGH RISK Performed By: #### C MP, TSH, LIPID #### [facility] [address] [place] [address] Dr. Luis Virgen Cholesterol [Mass/Vol] 154 mg/dL Normal <=200 [facility] Comment on above: Performed By: #### C MP, TSH, LIPID #### [facility] [address] [place] [address] Dr. Luis Viregn Cholesterol in HDL [Mass/Vol] 35 mg/dL Critically low 40-60 [facility] Comment on above: Performed By: #### C MP, TSH, LIPID #### [facility] [address] [place] [address] Dr. Luis Virgen Cholesterol in LDL [Mass/Vol] 80.8 mg/dL Normal [facility] Comment on above: Performed By: #### C MP, TSH, LIPID #### [facility] [address] [address] [address] Luis Virgen Cholesterol.total/C holesterol in HDL [Mass ratio] 4.4 {ratio} Normal [facility] Comment on above: Performed By: #### C MP, TSH, LIPID #### [facility] [address] [address] [address] Luis Virgen HDL NORMAL > or = 60 mg/dl - LO W CARDIOVASCULAR RISK <40 mg/dl - HIGH CARDIOVASCULAR RISK Normal [facility] Comment on above: Performed By: #### C MP, TSH, LIPID #### [facility] [address] [address] [address] Luis Virgen LDL CALC NORMAL SEE BELOW Normal [facility] Comment on above: Result Comment: <100 mg/dl OPTIMAL 100 - 129 mg/dl NEAR OR ABOVE OPTIMAL 130 - 159 mg/dl BORDERLINE HIGH 160 - 189 mg/dl HIGH >190 mg/dl VERY HIGH Performed By: #### C MP, TSH, LIPID #### [facility] [address] [address] [address] Luis Virgen Triglyceride [Mass/Vol] 191 mg/dL Critically high <=150 [facility] Comment on above: Performed By: #### C MP, TSH, LIPID #### [facility] [address] [address] [address] Luis Virgen VLDL CALC 38.2 mg/dL Normal [facility] Comment on above: Performed By: #### C MP, TSH, LIPID #### [facility] [address] [place] [address] Dr. Luis Virgen PROF 14(COMP METB)on 022 Albumin [Mass/Vol] 4.1 g/dL Normal 3.4-5.0 [facility] Comment on above: Performed By: #### C MP, TSH, LIPID #### [facility] [address] [place] [address] Dr. Luis Virgen Albumin/Globulin [Mass ratio] 1.2 {ratio} Normal [facility] Comment on above: Performed By: #### C MP, TSH, LIPID #### [facility] [address] [address] [address] Luis Virgen ALP [Catalytic activity/Vol] 73 U/L Normal 46-116 [facility] Comment on above: Performed By: #### C MP, TSH, LIPID #### [facility] [address] [address] [address] Luis Virgen ALT [Catalytic activity/Vol] 24 U/L Normal 14-59 [facility] Comment on above: Performed By: #### C MP, TSH, LIPID #### [facility] [address] [address] [address] Luis Virgen Anion gap [Moles/Vol] 13.2 mmol/L Normal [facility] Comment on above: Performed By: #### C MP, TSH, LIPID #### [facility] [address] [address] [address] Luis Virgen AST [Catalytic activity/Vol] 11 U/L Critically low 15-37 [facility] Comment on above: Performed By: #### C MP, TSH, LIPID #### [facility] [address] [address] [address] Luis Virgen Bilirubin [Mass/Vol] 0.8 mg/dL Normal 0.2-1.0 [facility] Comment on above: Performed By: #### C MP, TSH, LIPID #### [facility] [address] [address] [address] Luis Virgen Calcium [Mass/Vol] 8.9 mg/dL Normal 8.5-10.1 [facility] Comment on above: Performed By: #### C MP, TSH, LIPID #### [facility] [address] [address] [address] Luis Virgen Chloride [Moles/Vol] 103 mmol/L Normal 98-107 [facility] Comment on above: Performed By: #### C MP, TSH, LIPID #### [facility] [address] [address] [address] Luis Virgen CO2 [Moles/Vol] 27.5 mmol/L Normal 21.0-32.0 [facility] Comment on above: Performed By: #### C MP, TSH, LIPID #### [facility] [address] [address] [address] Luis Virgen Creatinine [Mass/Vol] 0.71 mg/dL Normal 0.55-1.02 [facility] Comment on above: Performed By: #### C MP, TSH, LIPID #### [facility] [address] [address] [address] Luis Virgen EGFR-AF STATELESS >60 Normal >=60 [facility] Comment on above: Performed By: #### C MP, TSH, LIPID #### [facility] [address] [address] [address] Luis Virgen EGFR-NON AF STATELESS >60 Normal >=60 [facility] Comment on above: Performed By: #### C MP, TSH, LIPID #### [facility] [address] [address] [address] Luis Virgen Globulin (S) [Mass/Vol] 3.5 g/dL Normal [facility] Comment on above: Performed By: #### C MP, TSH, LIPID #### [facility] [address] [address] [address] Luis Virgen Glucose [Mass/Vol] 101 mg/dL Normal 74-106 [facility] Comment on above: Performed By: #### C MP, TSH, LIPID #### [facility] [address] [address] [address] Luis Virgen Potassium [Moles/Vol] 4.7 mmol/L Normal 3.5-5.1 [facility] Comment on above: Performed By: #### C MP, TSH, LIPID #### [facility] [address] [address] [address] Luis Virgen Protein [Mass/Vol] 7.6 g/dL Normal 6.4-8.2 [facility] Comment on above: Performed By: #### C MP, TSH, LIPID #### [facility] [address] [address] [address] Luis Virgen Sodium [Moles/Vol] 139 mmol/L Normal 136-145 [facility] Comment on above: Performed By: #### C MP, TSH, LIPID #### [facility] [address] [place] [address] Dr. Luis Virgen Urea nitrogen [Mass/Vol] 9.0 mg/dL Normal 7.0-18.0 [facility] Comment on above: Performed By: #### C MP, TSH, LIPID #### [facility] [address] [place] [address] Dr. Luis Virgen Urea nitrogen/Creatinine [Mass ratio] 12.7 mg/mg Normal [facility] Comment on above: Performed By: #### C MP, TSH, LIPID #### [facility] [address] [place] [address] Dr. Luis Virgen TSHon 08-06-2021 TSH 0.924 uIU/mL Normal 0.358-3.740 [facility] Comment on above: Performed By: #### C MP, TSH, LIPID #### [facility] [address] [place] [address] Dr. Luis Virgen TSH RANGE SEE BELOW Normal [facility] Comment on above: Result Comment: <0.3 4 UIU/ml HYPERTHYROID 0.34-5.60 UIU/ml EUTHYROID >5.60 UIU/ml HYPOTHYROID Performed By: #### C MP, TSH, LIPID #### [facility] [address] [place] [address] Dr. Luis Virgen Vital Signs Date Time Vital Sign Value Performing Clinician Faci [facility] 04-07-2024 15:02-0500 Body mass index (BMI) [Ratio] 30.8 kg/m2 Vidya DESAI Work Phone: [facility] 04-07-2024 15:02-0500 Body weight 73.94 kg Vidya DESAI Work Phone: [facility] 04-07-2024 15:02-0500 Diastolic blood pressure 62 mm[Hg] Vidya DESAI Work Phone: [facility] 04-07-2024 15:02-0500 Systolic blood pressure 116 mm[Hg] Vidya DESAI Work Phone: [facility] 03-10-2024 14:45-0500 Body mass index (BMI) [Ratio] 30.63 kg/m2 Orlin Gloria DO Work Phone: [facility] 03-10-2024 14:45-0500 Body weight 73.54 kg Orlin Gloria DO Work Phone: [facility] 03-10-2024 14:45-0500 Diastolic blood pressure 66 mm[Hg] Orlin Gloria DO Work Phone: [facility] 03-10-2024 14:45-0500 Systolic blood pressure 110 mm[Hg] Orlin Gloria DO Work Phone: [facility] 02-11-2024 10:34-0500 Body mass index (BMI) [Ratio] 30.69 kg/m2 [facility] 02-11-2024 10:34-0500 Body weight 73.66 kg Nom Nurse [facility] 02-11-2024 10:34-0500 Diastolic blood pressure 77 mm[Hg] [facility] Nurse [facility] 02-11-2024 10:34-0500 Systolic blood pressure 110 mm[Hg] [facility] Nurse [facility] 12-10-2023 13:12-0400 Body mass index (BMI) [Ratio] 30.76 kg/m2 Orlin Gloria DO Work Phone: [facility] 12-10-2023 13:12-0400 Body weight 73.85 kg Orlin Gloria DO Work Phone: [facility] 12-10-2023 13:12-0400 Diastolic blood pressure 78 mm[Hg] Orlin Gloria DO Work Phone: [facility] 12-10-2023 13:12-0400 Systolic blood pressure 116 mm[Hg] Orlin Gloria DO Work Phone: [facility] Healthcare Encounters Encounter Date Encounter Type Care Provider Facility Start: 04-07-2024 End: 04-07-2024 Office outpatient visit 15 minutes Vidya DESAI Work Phone: [facility] Comment on above: Need for maternal se rum alpha-protein (MSAFP) screening; Diabetes mellitus screening; Screening, , for anatomic survey; Second trimester ; 15 weeks gestation of Start: 04-07-2024 End: 04-07-2024 ambulatory VIDYA JACKSON Not Available Start: 04-07-2024 End: 04-07-2024 Bamboo flowsheet Vidya DESAI Work Phone: [facility] Start: 04-07-2024 End: 04-07-2024 Bamboo flowsheet Vidya DESAI Work Phone: [facility] Start: 03-10-2024 End: 03-10-2024 ambulatory ORLIN GLORIA Not Available Start: 03-10-2024 End: 03-10-2024 flow sheet Orlin Gloria DO Work Phone: [facility] Comment on above: 11 weeks gestation o f ; First trimester Start: 03-10-2024 End: 03-10-2024 Bamboo flowsheet Orlin Gloria DO Work Phone: [facility] Start: 03-10-2024 End: 03-10-2024 Bamboo flowsheet Orlin Gloria DO Work Phone: [facility] Start: 02-27-2024 End: 02-27-2024 ambulatory Orlin Gloria [facility] Work Phone: Start: 02-27-2024 End: 02-27-2024 Departed Referred Orlin Gloria DO Work Phone: [facility] Start: 02-27-2024 End: 02-27-2024 Clinisync Result Encounter Generic External Data Provider [facility] External Department Unsolicited Start: 02-27-2024 End: 02-27-2024 Clinisync Result Encounter Generic External Data Provider [facility] External Department Unsolicited Start: 02-25-2024 End: 02-26-2024 Refill Анна Ha NP Work Phone: [facility] Comment on above: Primary insomnia Start: 02-11-2024 End: 02-11-2024 ambulatory VIDYA JACKSON Not Available Start: 02-11-2024 End: 02-11-2024 Office [...] Not Available Start: 07-14-2023 End: 07-14-2023 ambulatory VIDYA JACKSON Not Available Start: 06-30-2023 End: 06-30-2023 ambulatory MD Dar Brody Work Phone: [facility] Work Phone: Start: 06-30-2023 End: 06-30-2023 Departed Referred MD Dar Brody Work Phone: [facility] Start: 05-26-2023 End: 05-26-2023 ambulatory АННА HA Not Available Start: 02-20-2022 End: 02-20-2022 ambulatory JAVA SQL DEVELOPER АННА HA Facility:[facility] Start: 11-06-2021 End: 11-06-[address] ORLIN CASTRO Facility:[facility] Start: 08-20-2021 End: 08-20-2021 ambulatory JAVA SQL DEVELOPER АННА HA Facility:[facility] Start: 08-06-2021 End: 08-07-2021 ambulatory JAVA SQL DEVELOPER АННА HA Facility:[facility] Procedures Date Procedure Procedure Detail Performing Clinician Start: 04-07-2024 Urnls dip stick/tabl et rgnt non-auto w/o micrscp Vidya DESAI Work Phone: Start: 03-10-2024 Urnls dip stick/tabl et rgnt non-auto w/o micrscp Orlin Gloria DO Work Phone: Start: 02-27-2024 BOX TEST Orlin Fazi o DO Work Phone: Start: 02-11-2024 Urnls dip stick/tabl et rgnt [...] Phone: Start: 12-10-2023 IGP,APTIMA HPV,AGE GDLN Orlin LimeTray DO Work Phone: Start: 11-25-2022 Microscopic observat ion [Identifier] in Cervix by Cyto stain Orlin LimeTray DO Work Phone: Plan of Treatment Date Care Activity Detail Author Start: 11-25-2025 [facility] Start: 12-15-2024 End: 12-15-2024 Patient encounter procedure 12/15/2024 3:00 PM EDT Office Visit [facility] [address] [place] [address] Orlin Castro, DO [address] [place] [address] [facility] Start: 09-07-2024 End: 09-07-2024 Patient encounter procedure 09/07/2024 1:00 PM EDT Office Visit [facility] [address] [place] [address] Анна Ha NP [address] [place] [address] [facility] Start: 05-10-2024 End: 05-10-2024 Patient encounter procedure 05/10/2024 2:40 PM EDT Routine [facility] [address] [place] [address] Orlin Castro, DO [address] [place] [address] [facility] Start: 05-10-2024 End: 05-10-2024 Professional / ancillary services management 05/10/2024 1:30 PM EDT Ancillary Procedure [facility] [address] [place] [address] [facility] Start: 04-07-2024 End: 04-07-2024 Patient encounter procedure [facility] Comment on above: Arrived Start: 04-07-2024 End: 05-05-2024 Alpha fetoprotein, maternal Alpha fetoprotein, maternal Lab Routine Need for maternal serum alpha-protein (MSAFP) screening Expected: 04/07/2024 (Approximate), Expires: 05/05/2024 [facility] Comment on above: Expected: 04/07/2024 (Approximate), Expires: 05/05/2024 Start: 04-07-2024 End: 04-07-2025 Measurement of glucose 1 hour after glucose challenge for glucose tolerance test Glucose tolerance, 1 hour Lab Routine Diabetes mellitus screening Expected: 04/07/2024 (Approximate), Expires: 04/07/2025 [facility] Healthcare Work Phone: Comment on above: Expected: 04/07/2024 (Approximate), Expires: 04/07/2025 Start: 04-07-2024 End: 04-07-2025 US for US OB 14+ weeks anatomy scan Imaging Routine Screening, , for anatomic survey Expected: 04/07/2024, Expires: 04/07/2025 [facility] Comment on above: Expected: 04/07/2024 , Expires: 04/07/2025 Start: 03-10-2024 End: 03-10-2024 Patient encounter procedure 03/10/2024 2:20 PM EST Routine [facility] [address] [place] [id number] Orlin Castro, DO [address] [place] [address] [facility] Start: 03-02-2024 End: 03-02-2024 Patient encounter procedure 03/02/2024 9:40 AM EST Office Visit [facility] [address] [place] [address] Анна Ha NP [address] [place] [address] [facility] Start: 02-27-2024 Urine culture [facility] Start: 02-27-2024 Bacteria identified in Urine by Culture Urine [facility] Start: 02-11-2024 End: 02-10-2025 ABO/Rh ABO/Rh Lab Routine Missed menses , unspecified gestational age Expected: 02/11/2024 (Approximate), Expires: 02/10/2025 [facility] Comment on above: Expected: 02/11/2024 (Approximate), Expires: 02/10/2025 Start: 02-11-2024 End: 02-10-2025 Blood type and Indirect antibody screen panel - Blood Type and screen Lab Routine Missed menses , unspecified gestational age Expected: 02/11/2024 (Approximate), Expires: 02/10/2025 [facility] Work Phone: Comment on above: Expected: 02/11/2024 (Approximate), Expires: 02/10/2025 Start: 02-11-2024 End: 02-10-2025 Drugs of abuse panel - Urine by Screen method Rapid drug screen, urine Lab Routine , unspecified gestational age Encounter for supervision of normal first in first trimester Expected: 02/11/2024 (Approximate), Expires: 02/10/2025 [facility] Comment on above: Expected: 02/11/2024 (Approximate), Expires: 02/10/2025 Start: 02-11-2024 End: 02-10-2025 US Pelvis transvaginal US OB transvaginal Imaging Routine Missed menses Expected: 02/11/2024 (Approximate), Expires: 02/10/2025 [facility] Comment on above: Expected: 02/11/2024 (Approximate), Expires: 02/10/2025 Start: 02-11-2024 End: 02-11-2024 ambulatory 02/11/2024 10:00 AM EST Initial [facility] [address] [address] [facility] Start: 02-11-2024 End: 02-11-2024 Professional / ancillary services management 02/11/2024 9:30 AM EST Ancillary Procedure [facility] [address] [address] [facility] Start: 2018 Screening for malign ant neoplasm of cervix HPV/Cotest [facility] Bacteria identified in Urine by Culture Urine culture Microbiology Routine Missed menses Ordered: 02/11/2024 [facility] Comment on above: Ordered: 02/11/2024 CBC W Auto Different ial panel - Blood CBC and differential Lab Routine Missed menses , unspecified gestational age Ordered: 02/11/2024 [facility] Comment on above: Ordered: 02/11/2024 Cytology Cervical or vaginal smear or scraping study Pap Smear Pathology and Cytology Routine Well woman exam with routine gynecological exam Ordered: 12/10/2023 [facility] Work Phone: Comment on above: Ordered: 12/10/2023 Hemoglobin A1c/Hemoglobin.total in Blood Hemoglobin A1c Lab Routine Missed menses , unspecified gestational age Ordered: 02/11/2024 [facility] Comment on above: Ordered: 02/11/2024 Hepatitis B virus surface Ag [Presence] in Serum or Plasma by Immunoassay Hepatitis B surface antigen Lab Routine Missed menses , unspecified gestational age Ordered: 02/11/2024 [facility] Comment on above: Ordered: 02/11/2024 Hepatitis C virus Ab [Presence] in Serum or Plasma by Immunoassay Hepatitis C antibody Lab Routine Missed menses , unspecified gestational age Ordered: 02/11/2024 [facility] Comment on above: Ordered: 02/11/2024 HIV-1/HIV-2 antigen/antibody combination immunoassay HIV-1 and HIV-2 antibodies Lab Routine Missed menses , unspecified gestational age Ordered: 02/11/2024 [facility] Comment on above: Ordered: 02/11/2024 Human papilloma viru s DNA [Presence] in Unspecified specimen by Probe with amplification HPV DNA probe, amplified Microbiology Routine Well woman exam with routine gynecological exam Ordered: 12/10/2023 [facility] Comment on above: Ordered: 12/10/2023 Reagin Ab [Presence] in Serum by RPR RPR Lab Routine Missed menses , unspecified gestational age Ordered: 02/11/2024 [facility] Comment on above: Ordered: 02/11/2024 Rubella antibody, IgG Rubella an tibody, IgG Lab Routine Missed menses , unspecified gestational age Ordered: 02/11/2024 [facility] Comment on above: Ordered: 02/11/2024 Immunizations Immunization Date Immunization Notes Care Provider Joan ornelas 12-08-2017 influenza, seasonal, injectable, preservative free Orlin Castro DO Work Phone: [facility] Payers Date Payer Category Payer Self-pay [id number] 2023 Managed Care O (unspecified) [facility] Address: [address] [address] [id number] 2023 Private Health Insurance [id number] 2022 Medicaid (Managed Care) [employer] [id number] 1988 Unknown [id number]. [id number] 1988 Unknown [id number]. 2.593 1988 Unknown [id number] .[id number]. 2.593 1988 Unknown [id number] .[id number]. 2.593 1988 Unknown [id number]. 2.1258 1988 Unknown [id number]. 2.9 1988 Unknown [id number]. 2.9 1988 Unknown [id number] .[id number]. 2.9 1988 Unknown [id number]. 2.1258 1988 Unknown [id number]. 2.1259 1988 Unknown [id number]. 2.1259 1959 Unknown [id number] Private Health Insurance [employer] [id number] Unknown [id number] [id number] Unknown [id number] [id number] Social History Date Type Detail Facility Start: 03-05-2019 End: 03-05-2019 Tobacco smoking status CTIS Never smoked tobacco (finding) [facility] Start: 1990 Sex Assigned At Female [facility] Start: 10-30-2022 Tobacco smoking status NHIS Ex-smoker [facility] End: 02-24-2014 History of tobacco use Current smoker [facility] End: 02-24-2014 History of tobacco use Cigarette Smoker [facility] Start: 10-30-2022 Tobacco use and exposure Smokeless tobacco non-user [facility] Start: 12-10-2023 End: 03-10-2024 Alcoholic beverage intake Lifetime non-drinker (finding) [facility] Start: 05-19-2023 End: 09-01-2023 History of Social function [facility] Start: 05-19-2023 End: 09-01-2023 Social connection and isolation panel [facility] Do you belong to any clubs or organizations such as quaker groups, unions, fraternal or athletic groups, or [...] (finding) [facility] Start: 01-02-2024 [facility] Start: 02-28-2024 Sex Female (finding) [facility] Goals Date Patient Goal Desired Activity /State Personal health goal History of Present illness Narrative 04-07-2024 GISELLE Cramer - 04/07/2024 2:20 PM EST Note Date & Type Note Facility 04-07-2024 History of Presen t illness Narrative Reason for Appointment: Patient ID: Shreya Marshall is a 33 y.o. female who presents for Routine Visit Patient presents today for Return OB appointment. MEDICATIONS Current Outpatient Medications Medication Instructions MV-Min-Fe Fum-FA-DHA ( 1 PO) 1 each, Daily Progesterone 200 mg, Vaginal, Nightly, Insert suppository vaginally every night at bedtime until 12 weeks gestation traZODone (DESYREL) 100 mg, Oral, Nightly ALLERGIES [...] Types: Cigarettes Quit date: 2014 Years since quittin.1 Smokeless tobacco: Never Tobacco comments: Ex-moderate cigarette [...] abnormal pap smear PAP SMEAR 03/07/2014 [facility] NE MEDICATION MANAGEMENT Drug Therapy -SVT TONSILLECTOMY 1992 REVIEW OF SYSTEMS Review of Systems: Review of Systems Constitutional: Negative. HENT: Negative. Eyes: Negative. Respiratory: Negative. Cardiovascular: Negative. Gastrointestinal: Negative. Genitourinary: Negative. Musculoskeletal: Negative. Skin: Negative. Neurological: Negative. All other systems reviewed and are negative. Hematological: Negative. Endocrine: Negative. Allergic/Immunologic: Negative. OBJECTIVE Objective: Physical Exam Constitutional: Appearance: Normal appearance. She is normal weight. HENT: Head: Normocephalic. Cardiovascular: Rate and Rhythm: Normal rate. Pulses: Normal pulses. Pulmonary: Effort: Pulmonary effort is normal. Breath sounds: Normal breath sounds. Abdominal: Palpations: Abdomen is soft. Musculoskeletal: General: Normal range of motion. Neurological: General: No focal deficit present. Mental Status: She is alert and oriented to person, place, and time. Psychiatric: Mood and Affect: Mood normal. Behavior: Behavior normal. Thought Content: Thought content normal. Judgment: Judgment normal. Vitals and nursing note reviewed. Vitals: Estimated body mass index is 30.63 kg/m as calculated from the following: Height as of 09/01/23: 5' 1 . Weight as of 03/10/24: 162 lb 1.9 oz. BP: Patient's last menstrual period was 12/11/2023. ASSESSMENT & PLAN ICD-10-CM 1. Need for maternal serum alpha-protein (MSAFP) screening Z36.1 Alpha fetoprotein, maternal Alpha fetoprotein, maternal 2. Diabetes mellitus screening Z13.1 Glucose tolerance, 1 hour Glucose tolerance, 1 hour 3. Screening, , for anatomic survey Z36.89 US OB 14+ weeks anatomy scan Return OB/Annual Exam: Patient presents today for a routine obstetrics appointment. Patient is currently 15w5d . Patient is doing well and states she has no complaints. Patient was given msAFP/Anatomy US order to have obtained. Orders Placed This Encounter Procedures US OB 14+ weeks anatomy scan Glucose tolerance, 1 hour Alpha fetoprotein, maternal Follow Up: Patient is to return to our office in 4 weeks for routine OB appointment Documented by Lizzy Wood MA on behalf of: GISELLE Cramer documented in this encounter [facility] History of Present illness Narrative 03-10-2024 Isatu Gilbert LPN - 03/10/2024 2:20 PM EST Note Date & Type Note Facility 03-10-2024 History of Presen t illness Narrative Reason for Appointment: Patient ID: Shreya Marshall is a 33 y.o. female who presents for No chief complaint on file. Patient presents today for Return OB appointment. MEDICATIONS Current Outpatient Medications Medication Instructions MV-Min-Fe Fum-FA-DHA ( 1 PO) 1 each, Daily Progesterone 200 mg, Vaginal, Nightly, Insert suppository vaginally every night at bedtime until 12 weeks gestation traZODone (DESYREL) 100 mg, Oral, Nightly ALLERGIES Allergies Allergen Reactions Other Powder on gloves Other Reaction(s): rash/itching PROBLEMS Active Ambulatory Problems Diagnosis Date Noted Insomnia 02/27/2023 Supraventricular tachycardia (CMS/HCC) 12/09/2019 Left wrist pain 05/03/2023 Obesity (BMI 30-39.9) 05/26/2023 Encounter for wellness examination in adult 09/01/2023 Depression (CMS/HCC) 09/01/2023 Resolved Ambulatory Problems Diagnosis Date Noted Major depressive disorder, single episode, mild (HCC) ([facility]) 09/01/2023 Past Medical History: Diagnosis Date Abnormal Pap smear of cervix 2009 Contraception management Current mild episode of major depressive disorder without prior episode (HCC) ([facility]) Degenerative joint disease of spine Encounter for IUD removal History of abnormal cervical Pap smear LGSIL Pap smear of vagina 2012 Overweight (BMI 25.0-29.9) SVT (supraventricular tachycardia) ([facility]) Torn meniscus HISTORY PAST MEDICAL HISTORY SOCIAL HISTORY Past Medical History: Diagnosis Date Abnormal Pap smear of cervix 2009 Contraception management Current mild episode of major depressive disorder without prior episode (HCC) ([facility]) 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 Artis needs to stop with preg. Cat. C LGSIL Pap smear of vagina 2012 Overweight (BMI 25.0-29.9) SVT (supraventricular tachycardia) ([facility]) Torn meniscus Social History Tobacco Use Smoking status: Former Current packs/day: 0.00 Types: Cigarettes Quit date: 2014 Years since quittin.0 Smokeless tobacco: Never Tobacco comments: Ex-moderate cigarette [...] abnormal pap smear PAP SMEAR 03/07/2014 [facility] NE MEDICATION MANAGEMENT Drug Therapy -SVT TONSILLECTOMY 1992 REVIEW OF SYSTEMS Review of Systems: Review of Systems Constitutional: Negative. HENT: Negative. Eyes: Negative. Respiratory: Negative. Cardiovascular: Negative. Gastrointestinal: Negative. Genitourinary: Negative. Musculoskeletal: Negative. Skin: Negative. Neurological: Negative. All other systems reviewed and are negative. Hematological: Negative. Endocrine: Negative. Allergic/Immunologic: Negative. OBJECTIVE Objective: Physical Exam Constitutional: Appearance: Normal appearance. She is well-developed. Cardiovascular: Rate and Rhythm: Normal rate and [...] nursing note reviewed. Exam conducted with a application technician present. Vitals: Estimated body mass index is 30.63 kg/m as calculated from the following: Height as of 24: 5' 1 . Weight as of this encounter: 162 lb 1.9 oz. BP: 110/66 Patient's last menstrual period was 12/11/2023. ASSESSMENT & PLAN ICD-10-CM 1. 11 weeks gestation of Z3A.11 POCT urinalysis dipstick manually resulted 2. First trimester Z34.91 POCT urinalysis dipstick manually resulted New OB: Patient presents today for 1st time obstetrics appointment with provider. Patient is currently 11w5d . Patients history has been reviewed in great detail including any potential risks. Patient stated she currently has no complaints. Expectations throughout regarding labs, ultrasounds, and appointments have been discussed with the patient in detail. It was reiterated that the patient is to drink 6-8 glasses of water a day, eat 6 small meals a day, do not consume raw or undercooked meat, and stay away from [facility]. Patient has been consulted regarding any further do's and don'ts of . Patient voiced understanding and all questions and concerns were answered. Pt offered MFM referral for AMA- pt declined at this time. Orders Placed This Encounter Procedures POCT urinalysis dipstick manually resulted Follow Up: Patient is to return in 4 weeks for routine OB appointment. Documented by Isatu Gilbert LPN on behalf of: Orlin Castro DO documented in this encounter [facility] History of Present illness Narrative 02-11-2024 Lynnette StapletonSUMIT - 02/11/2024 10:00 AM EST Note Date [...] 8 oz F Vag-Spont REYNA 2 Para 2016 6 lb 12 oz M Vag-Spont REYNA [...] 06/30/2023 KNEE ARTHROSCOPY W/ MENISCAL REPAIR Left 2011 Torn Meniscus OTHER SURGICAL HISTORY HPV observation- abnormal pap smear PAP SMEAR 03/07/2014 [facility] NE MEDICATION MANAGEMENT Drug Therapy -SVT TONSILLECTOMY 1992 [...] or undercooked meat, and stay away from [facility]. Patient has also been advised to not change litter boxes and eat 6 small meals a day. Patient has been consulted regarding the do's and don'ts of . Patient was given labs and all questions and concerns were answered. Patient was given [place] to have completed at 10 weeks. Follow [...] abnormal pap smear PAP SMEAR 03/07/2014 [facility] NE MEDICATION MANAGEMENT Drug Therapy -SVT TONSILLECTOMY 1992 [...] nursing note reviewed. Exam conducted with a application technician present. Vitals: Estimated body mass index [...] Orlin Castro DO documented in this encounter [facility] Evaluation note Note Date & Type Note Facility Evaluation note [facility]: Evaluation note Note Date [...] sleep documented in this encounter [facility] Evaluation [...] (BMI 30-39.9) Depression, unspecified depression type (CMS/HCC) 11 weeks gestation of First trimester state, incidental documented in this encounter [facility] Evaluation [...] (BMI 30-39.9) Depression, unspecified depression type (CMS/HCC) Need for maternal serum alpha-protein (MSAFP) screening Diabetes mellitus screening Screening for diabetes mellitus Screening, , for anatomic survey Encounter for anatomic survey Second trimester state, incidental 15 weeks gestation of documented in this encounter [facility] Summary Purpose Family History No Family History Records FoundNo Family History Records FoundNo Family History Records Found Advance Directives No Advanced Directives Records Found Advance Directive Response Recorded Date/ Time Advance Directives No January 3:45am Advance Directive Response Recorded Date/ Time Advance Directives No January 2:45am Additional Source Comments INFORMATION SOURCE (unrecogn ized section and content) DATE CREATED AUTHOR 02/22/2022 [facility] DATE CREATED AUTHOR AUTHOR'S ORGANIZ ATION 03/06/2024 [facility] DATE CREATED AUTHOR AUTHOR'S ORGANIZ ATION 04/09/2024 [facility] EPIC Care Teams (unrecognized sec tion and content) Team Status: Active Member Role Status Dates Dar Brody MD Primary Care Provider Active Team Status: Inactive Member Role Status Dates Dar Brody MD Primary Care Provider Active Start: June 30, 2023 End: June 30, 2023 Orlin Castro Attending Provider Active Start: Viky brewer 2023 End: June 30, 2023 Urgent Care Nurse Practitioner Relationship Specialty Start Date End Date Parag Bradley MD [address] [place] [phone] PCP - General Family Medicine 08/14/22 Анна Ha NP [address] [place] [address] [facility] 08/25/23 Urgent Care Nurse Practitioner Relationship Specialty Start Date End Date Parag Bradley MD [address] [place] [address] [facility] 08/14/22 Анна Ha NP [address] [place] [address] PCP - [facility] 08/25/23 Urgent Care Nurse Practitioner Relationship Specialty Start Date End Date Parag Bradley MD [address] [place] [phone] PCP [facility] 08/14/22 Анна Ha NP [address] [place] [phone] [facility] 08/25/23 Urgent Care Nurse Practitioner Relationship Specialty Start Date End Date Parag Bradley MD [address] [place] [phone] PCP [facility] 08/14/22 Анна Ha NP [address] [place] [address] [facility] 08/25/23 Urgent Care Nurse Practitioner Relationship Specialty Start Date End Date Parag Bradley MD [address] [place] [address] PCP [facility] 08/14/22 Анна Ha NP [address] [place] [address] [facility] 08/25/23 Urgent Care Nurse Practitioner Relationship Specialty Start Date End Date Parag Bradley MD [address] [place] [address] PCP [facility] 08/14/22 Анна Ha NP [address] [place] [address] [facility] 08/25/23 Team Status: Inactive Member Role Status Dates Orlin Castro DO Attending Provider Active Start : February 27, 2024 End: February 27, 2024 Urgent Care Nurse Practitioner Relationship Specialty Start Date End Date Parag Bradley MD [address] [place] [address] PCP [facility] 08/14/22 Анна Ha NP [address] [place] [address] PCP - [facility] 08/25/23 Goals (unrecognized section and content) Goals may be documented in a n alternate sectionGoals may be documented in an alternate section Reason for Visit (unrecogniz ed section and content) Reason Comments Well Women Visit Reason Comments Amenorrhea Reason Onset Date Comments Med Refill 02/25/2024 Reason Comments Routine Visit FOR RECORDS PERTAINING TO PATIENTS WHO [...] BE BASED ON THE PRIMARY CLINICAL RECORDS. [employer] provides no warranty or guarantee of the accuracy or completeness of information in this document.
[2024-04-10 12:33] LABS: Glucose 1 Hour 124 mg/dL (<130)
[2024-04-13 23:08] LABS: AFP Value 24.2 ng/mL (.); Gest. Age on Collection Date 16.1 weeks (.); Gestat. Age Based On Ultrasound (.); Insulin Dep Diabetes No (.); OSBR Risk 1 IN 10000 (.); Results Report (.)
== END 2024-04-10 10:51 | disposition home or self-care (01) ==
LOC: LAB 10:54
PROVIDERS: PCP Nurse Practitioner; Visit Provider Physician Assistant
DX: Z36.1 Encounter for antenatal screening for raised alphafetoprotein level (principal)
CPT/HCPCS: 36415; 82105; 82950

== ENCOUNTER 2024-07-05 09:39 | Outpatient (OUT) | payer OTHER, SELFPAY ==
[2024-07-05 10:57] LABS: Basophils Percent Auto 0.3 % (0.2-2.0); Eosinophils Percent Auto 0.3 % (0.9-7.0); Hematocrit 35.5 % (36.0-48.0); Hemoglobin 11.6 g/dL (12.0-16.0); Immature Granulocytes Abs Auto 0.03 10^3/uL (0.00-0.03); Immature Granulocytes Pct Auto 0.4 % (0.0-0.5); Lymphocytes Absolute Auto 1.7 10^3/uL (1.2-3.8); Lymphocytes Percent Auto 22.3 % (20.5-60.0); Mean Corpuscular HGB Conc 32.7 g/dL (29.9-35.2); Mean Corpuscular Hemoglobin 30.7 pg (26.7-34.0); Mean Corpuscular Volume 93.9 fL (81.0-99.0); Mean Platelet Volume 9.6 fL (9.5-13.5); Monocytes Absolute Auto 0.4 10^3/uL (0.3-0.8); Monocytes Percent Auto 5.5 % (1.7-12.0); Neutrophils Absolute Auto 5.3 10^3/uL (1.4-6.5); Neutrophils Percent Auto 71.2 % (43.0-75.0); Platelet Count 218 10^3/uL (150-450); Red Blood Count 3.78 10^6/uL (4.20-5.40); Red Cell Distribution Width 12.9 % (11.0-15.0); White Blood Count 7.4 10^3/uL (4.0-11.0)
[2024-07-05 11:14] LABS: Glucose 1 Hour 144 mg/dL (<130)
== END 2024-07-05 09:40 | disposition home or self-care (01) ==
LOC: LAB 09:41
PROVIDERS: PCP Nurse Practitioner; Visit Provider Nurse Practitioner Family
DX: Z13.1 Encounter for screening for diabetes mellitus (principal)
CPT/HCPCS: 36415; 82950; 85025

== ENCOUNTER 2024-07-17 08:39 | Outpatient (OUT) | payer OTHER, SELFPAY ==
--- OUTSIDE RECORDS SUMMARY | 2024-07-06 14:04 | XMS_ITS ---
Author Name Auto Generated Organization [facility] Care Team Providers Care Cable Installation Manager Name Role Phone Orlin Castro Attending Unavailable Orlin Castro Admitting Unavailable SHADE JACKSON Attending Unavailable SHADE JACKSON Referring Unavailable ORLIN CASTRO Attending Unavailable CELY WILEY Attending Unavailable ORLIN CASTRO Referring Unavailable LUZ, ORLIN Attending Unavailable SCARLETT MILLAN Attending Unavailable LUZ, ORLIN Attending Unavailable LUZ, ORLIN Attending Unavailable PROBLEMS No Problem Records Found PROCEDURES No Procedure Records Found RESULTS US OB FOLLOW UP TRANSABDOMINAL APPROACH Observed: 07/06/2024 1:26 PM Status: F Source: [facility] EPIC Order Comment: US OB SCAN FO R GROWTH Estimated Date of Delivery: 09/24/24 Gestational Age as of 06/16/2024: 25w5d EXAM: US OB FOLLOW UP TRANSA BDOMINAL APPROACH HISTORY: Advanced maternal age. COMPARISON: Ob ultrasound 05/10/2024. TECHNIQUE: Two-dimensional transabdominal grayscale ultrasound imaging of the pelvis was performed. FINDINGS: Gestation: Single Presentation: Cephalic Cardiac Activity: 123 beats per minute Placental Location: Posterior with no sonographic abnormalities identified. Cervical canal: Obscured Amniotic Fluid Index: 10.3 cm MEASUREMENTS: BPD: 7.1 cm EGA: 28 weeks 5 days HC: 25.3 cm EGA: 27 weeks 3 days AC: 23.2 cm EGA: 27 weeks 4 days FL: 5.3 cm EGA: 28 weeks 1 days HC/AC Ratio: 1.09 The gestational age by today's ultrasound is 28 weeks 0 days (+/- 14 days gestation). Estimated Weight: 1131 grams, +/- 170 grams ( 2 lb 8 oz). Weight Percentile for gestational age: 15 % IMPRESSION: 1. Single, live intrauterine gestation 28 weeks, 4 days by LMP. Today's ultrasound measurements correlate with a gestational age of 28 weeks 0 days. Estimated weight is 1131 grams, +/- 170 grams ( 2 lb 8 oz) which correlates to 15 %. BELL is 09/28/2024. Interpreted by: Electronically signed by TABITHA CAMPBELL II, MD, PHD at 07-Jul-2024 10:00:26 AM [facility] US OB 14+ WEEKS ANATOMY SCAN Observed: 0 05/10/2024 1:17 PM Status: F Source: [facility] EPIC Order Comment: US OB ANATOMY SINGLE W US OB CERVICAL LENGTH Estimated Date of Delivery: 09/24/24 Gestational Age as of 04/07/2024: 15w5d EXAM: US OB 14+ WEEKS ANATOM Y SCAN HISTORY: anatomy. COMPARISON: None available. TECHNIQUE: Two-dimensional transabdominal grayscale ultrasound imaging of the pelvis was performed. FINDINGS: Gestation: Single Presentation: Cephalic Cardiac Activity: Present Placental Location: Posterior with no sonographic abnormalities identified. Distance from Placental Tip to Cervix: 4.3 cm Cervical Length: 3.8 cm Amniotic Fluid: Appears adequate MEASUREMENTS: BPD: 4.7 cm EGA: 20 weeks 1 days HC: 17.5 cm EGA: 20 weeks 0 days AC: 15.5 cm EGA: 20 weeks 5 days FL: 3.5 cm EGA: 20 weeks 6 days HC/AC Ratio: 1.13 The gestational age by today's ultrasound is 20 weeks 2 days (+/- 7 days gestation). Estimated Weight: 371 grams, +/- 56 grams ( 0 lb 13 oz). Weight Percentile for gestational age: 60 % ANATOMY C-Spine: Unremarkable T-Spine: Unremarkable L-Spine: Unremarkable Sacrum: Unremarkable Four Chamber Heart: Unremarkable LVOT: Unremarkable RVOT: Unremarkable Stomach: Unremarkable Kidneys: Unremarkable Bladder: Unremarkable Diaphragm: Unremarkable Cord insertion: Unremarkable Cord vessels: Three Lateral Ventricles: Unremarkable Cerebellum: Unremarkable Cisterna Magna: Unremarkable Posterior Fossa: Unremarkable Right Femur: Unremarkable Left Femur: Unremarkable Right Tib/Fib: Unremarkable Left Tib/Fib: Unremarkable Right Rad/Ulnar: Unremarkable Left Rad/Ulnar: Unremarkable Right Humerus: Unremarkable Left Humerus: Unremarkable Nose/Lips: Unremarkable Profile: Unremarkable Orbits: Unremarkable IMPRESSION: 1. Single, live intrauterine gestation 20 weeks, 3 days by LMP. Today's ultrasound measurements correlate with a gestational age of 20 weeks 2 days. Estimated weight is 371 grams, +/- 56 grams ( 0 lb 13 oz) which correlates to 60 %. BELL is 09/25/2024. 2. Unremarkable ultrasound of the anatomy. Electronically Signed:Electronically signed by TABITHA CAMPBELL II, MD, PHD at 11-May-2024 12:36:27 AM [facility] URINE CULTURE Observed: 02/27/2024 2:37 PM Status: F Source: [facility] No Growth 2 Days PERFORMED BY: [facility] [address] [place] [address] PATHOLOGIST [employer] CONSULTANT SHEREE MCCARTHY M.D. Performed By: #### CUU #### [place] [id number] [facility] ALLERGIES DATE TYPE / CODE NAME / CODE REACTION SEVERITY SOURCE 03/05/2019 Drug Allergy/[id number] (SNOMED CT) No Known Allergies/[id number](RXNORM) Unknown [facility] ENCOUNTERS ADMIT/DISCHARGE ACCOUNT NUMBER ADMITTING ENCOUNTER CLASS LOCATION SOURCE 07/06/2024/07/07/19 [id number] Ambulatory Building:[facility] OB [facility] EPIC 07/06/2024/07/07/19 [id number] Ambulatory Building:[facility] OB [facility] EPIC 06/16/2024/06/17/19 [id number] Ambulatory Building:[facility] OB [facility] EPIC 05/10/2024/05/11/19 [id number] Ambulatory Building:[facility] OB [facility] EPIC 05/10/2024/05/11/19 [id number] Ambulatory Building:[facility] OB [facility] EPIC 04/07/2024/04/07/19 [id number] Ambulatory Building:[facility] EPIC 03/10/2024/03/10/19 [id number] Ambulatory Building:[facility] OB [facility] 02/27/2024/02/26/19 [id number] [facility] 02/11/2024/02/11/20 24 [id number] Ambulatory Building:[facility] OB [facility] 12/10/2023/12/10/19 24 [id number] Ambulatory Building:[facility] 09/01/2023/09/01/19 24 [id number] Ambulatory Building:[facility] PAYERS ENCOUNTER GUARANTOR PAYER SUBSCRIBER SOURCE 07/06/2024 ROXANNE Leal GADDYDOB: [id number] [place] [address]Nuy: () (WP) Primary Insurance:[employer] MEDICAIDPolicy Number: [id number] Date:2022-06-24 ROXANNE Leal GADDYDOB: [id number] [address] [place] [phone] [facility] 07/06/2024 ROXANNE Leal GADDYDOB: [id number] [place] [address]Gta: (HP) (WP) Primary Insurance:[employer] MEDICAIDPolicy Number: [id number] Date:2022-06-24 ROXANNE Leal GADDYDOB: [id number] [address] [place] [phone] [facility] 06/16/2024 ROXANNE Leal GADDYDOB: [id number] [place] [address]Ebs: (HP) (WP) Primary Insurance:[employer] MEDICAIDPolicy Number: [id number] Date:2022-06-24 ROXANNE Leal GADDYDOB: [id number] [address] [place] [phone] [facility] 05/10/2024 ROXANNE Leal GADDYDOB: [id number] [place] [address]Hzs: (HP) (WP) Primary Insurance:[employer] MEDICAIDPolicy Number: [id number] Date:2022-06-24 ROXANNE Leal GADDYDOB: [id number] [address] [place] [phone] [facility] 05/10/2024 ROXANNE Leal GADDYDOB: [id number] [place] [address]Amf: (HP) (WP) Primary Insurance:[employer] MEDICAIDPolicy Number: [id number] Date:2022-06-24 ROXANNE Leal GADDYDOB: [id number] [address] [place] [address] [facility] EPIC 04/07/2024 ROXANNE Mel GADDYDOB: [id number] [place] [address]Kez: (HP) (WP) Primary Insurance:[employer] MEDICAIDPolicy Number: [id number] Date:2022-06-24 ROXANNE Mel GADDYDOB: [id number] [address] [place] [phone] [facility] EPIC 03/10/2024 ROXANNE Mel GADDYDOB: [id number] [place] [address]Fpz: (HP) (WP) Primary Insurance:[facility] MEDICAIDPolicy Number: [id number] Date:2022-06-24 ROXANNE Mel GADDYDOB: [id number] [address] [place] [phone] [facility] EP[facility] 03/10/2024 Secondary Insurance:AETNAPolicy Number: [id number] Date:[id number] Name:SILVINO SCHWARTZ [id number] [address]: [place] GADDYDOB: [id number] [address] [place] [phone] [facility] EPIC 02/27/2024 Roxanne Mel Hvmhl[address] [place] [address]Cri: (HP) Primary Insurance:Self PayPolicy Number: Effective Date:2024-02-27 [facility] 02/11/2024 ROXANNE Mel GADDYDOB: [id number] [place] [address]Jjc: (HP) (WP) Primary Insurance:[employer] MEDICAIDPolicy Number: [id number] Date:2022-06-24 ROXANNE DOEOB: [id number] [address] [place] [address] [facility] 12/10/2023 ROXANNE BLANCOYDOB: [id number] [place] [address]Pfk: (HP) (WP) Primary Insurance:[employer] MEDICAIDPolicy Number: [id number] Date:2022-06-24 ROXANNE DOEOB: [id number] [address] [place] [address] [facility] 09/01/2023 ROXANNE BLANCOYDOB: [id number] [place] [address]Yrd: (HP) (WP) Primary Insurance:[employer] MEDICAIDPolicy Number: [id number] Date:2022-06-24 ROXANNE DOEOB: [id number] [address] [place] [phone] [facility]
[2024-07-17 10:42] LABS: Glucose 1 Hour 162 mg/dL (<130)
== END 2024-07-17 08:40 | disposition home or self-care (01) ==
LOC: LAB 08:40
PROVIDERS: PCP Nurse Practitioner; Visit Provider Obstetrics & Gynecology
DX: Z13.1 Encounter for screening for diabetes mellitus (principal)
CPT/HCPCS: 36415; 82950

== ENCOUNTER 2024-07-23 09:04 | Outpatient (OUT) | payer OTHER, SELFPAY ==
--- OUTSIDE RECORDS SUMMARY | 2021-03-22 12:00 | XMS_ITS | Continuity of Care Document ---
Author Organization [facility] Address [address] [place] [address] Phone Care Team Providers Care Manufacturing Assistant Name Role Phone Tash Sandhu DMD Unavailable Unavailable Allergies, Adverse Reactions, Alerts Substance Reaction Status Criticality No Known Allergies Active No Inform ation Medications Medication Instructions Dosage Effective Dates (start - stop) Status Comments Mirena 20 mcg/24 hours (6 yrs) 52 mg intrauterine device - Active Procedures Procedure Date Nutrit Couns For Control Of [place] Dis Feb Bitewings-three Films Panoramic Film Comp Oral Eval New/estab Patient 2021 Oral Hygiene Instruction Limited Oral Eval Extract; Erupted Th/exposted Rt 021 Extract; Erupted Th/exposted Rt 021 Bitewig-single Film Intraoral-periapical 1st Film Advance Directives Directive Yes / No Effective Date File Name No Information Encounters Encounter Description Practice Location Reason(s) For Visit Diagnoses Date Provider Providers Copied on Encounter [facility], [address] [place] [address], [id number], tel:[phone] Dental Clinic DN (chief complaint) Encounter for screening for dental disorders Edson Bianchi. [address] [place] [address], [id number], [place]. tel:[phone] [facility], [address] [place] [address], [id number], tel:[phone] Dental Clinic Dental New (chief complaint) Encounter for screening for dental disorders Edson Bianchi. [address] [place], [place], [id number], [place]. tel:[phone] Family History Family Member Type Diagnosis Age At Onset Mother Problem Alive and well Father Problem Alive and well Mother Problem Cardiovascular disease Payers Payer name Insurance type Covered alliance party ID Aston jason(s) D Medicaid [facility] [id number] Social History Type Description Quantity Date Captured [...]
--- OUTSIDE RECORDS SUMMARY | 2024-04-05 11:45 | XMS_ITS ---
Author [facility] [address] [place] [address] Care Team Providers Care Tumbler Machine Operator Helper Name Role Phone Naida Valera Primary Care Provider REASON FOR VISIT EXT Encounters Encounter Location Date Provider Diagnosis [facility] [address] [place] [address] 04/05/2024 Naida Valera Plan Of Treatment Next Appt Details Provider Name:Naida ruff, 11/12/2024 10:30:00 AM, [address] [facility] [place], [address], Progress Notes * ROXANNE ROGERS DDOB: [birth year] (33 yo F)Acc No.[id number]:04/05/2024 Patient: ROXANNE KENNY Provider: Elizabeth Valera DDS :1990 A ge:33 Y S ex:Female Date:04/05/2024 Address:[address] [place], [place] [phone] Subjective: * Chief Complaints: * 1 . EXT. * Medical History: Objective: * Vitals: Assessment: Plan: * Treatment: * Images: * Electronic signature of Harjit Valera DDS on 07/23/2024 at 09:07 AM EDT Sign off status: Pending * Provider: Elizabeth Valera DDS Date: 04/05/2024 Generated for Adam son/Makenzie/Chinyereitting on: 0 07/23/2024 09:07 AM EDT
--- OUTSIDE RECORDS SUMMARY | 2024-04-19 09:00 | XMS_ITS ---
Author Organization [facility] [address] [place] [address] Care Team Providers Care Steel Shot Header Operator Name Role Phone Naida Valera Primary Care Provider [phone] REASON FOR VISIT FILLING Encounters Encounter Location Date Provider Diagnosis [facility] [address] [place] [address] 04/19/2024 Naida Valera Plan Of Treatment Next Appt Details Provider Name:Naida ruff, 11/12/2024 10:30:00 AM, [address] [facility] [place], [address], Progress Notes * ROXANNE ROGERS DDOB: 9 (33 yo F)Acc No.[id number]:04/19/2024 Patient: ROXANNE KENNY Provider: Elizabeth Valera DDS :1990 A ge:33 Y S ex:Female Date:04/19/2024 Address:[address] [place] [phone] Subjective: * Chief Complaints: * 1 . FILLING. * Medical History: Objective: * Vitals: Assessment: Plan: * Treatment: * Images: * Electronic signature of Harjit Valera DDS on 07/23/2024 at 09:09 AM EDT Sign off status: Pending * Provider: Elizabeth Valera DDS Date: 04/19/2024 Generated for Adam son/Makenzie/Chinyereitting on: 0 07/23/2024 09:09 AM EDT
--- OUTSIDE RECORDS SUMMARY | 2024-07-21 14:20 | XMS_ITS | Encounter Summary ---
Author Organization [facility] Address [address] [place] [address] Care Team Providers Care Airline Customer Service Agent Name Role Phone Parag Bradley MD Primary Care Provider [phone] Анна Ha NP Unavailable [phone] Reason for Visit * Reason Comments Routine Visit Encounter Details Date Type Department Care Team (Late st Contact Info) Description 07/21/2024 2:20 PM EDT Routine [facility] OB [address] [facility] [place] [address] Vidya Sepulveda PA [address] [facility] [address] [place], [facility]11 Third trimester ; 30 weeks gestation of [...] week 05/19/2023 How often do you attend [facility] or [facility] services? More than 4 times per year 05/19/2023 Do you belong to any clubs o r organizations such as sabianist groups, unions, fraternal or athletic groups, or [...] Recorded Patient Health Questionnaire-2 Score 0 06/08/2024 [facility] - Occupational Stress Questionnaire Answer Date Recorded [...] place to sleep or slept in a intermediate (including now)? No 05/19/2023 Estimated Date of [...] Major depressive disorder, single episode, mild (HCC) ([facility]) 09/01/2023 Past Medical History: Diagnosis Date Abnormal Pap smear of cervix 2009 Contraception management Current mild episode of major depressive disorder without prior episode (HCC) ([facility]) Degenerative joint disease of spine Encounter for IUD removal History of abnormal cervical Pap smear LGS[facility] Pap smear of vagina 2012 Overweight (BMI 25.0-29.9) SVT (supraventricular tachycardia) ([facility]) Torn meniscus HISTORY PAST MEDICAL HISTORY SOCIAL HISTORY Past Medical History: Diagnosis Date Abnormal Pap smear of cervix 2009 Contraception management Current mild episode of major depressive disorder without prior episode (HCC) ([facility]) 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 Artis needs to stop with preg. Cat. C LGSIL Pap smear of vagina 2012 Overweight (BMI 25.0-29.9) SVT (supraventricular tachycardia) ([facility]) Torn meniscus Social History Tobacco Use Smoking [...] abnormal pap smear PAP SMEAR 03/07/2014 [facility] [place] [facility] Drug Therapy -SVT TONSILLECTOMY 1992 [...] 2:20 PM EDT Routine [facility] OB [address] [place] [address] [place] [phone] Slava Castro, DO [address] [facility] [address] [place], [place] [id number] 09/07/2024 1:00 PM EDT Office Visit [facility] [address] [place] [phone] Анна Ha NP [address] [place] [address] 12/15/2024 3:00 PM EDT Office Visit [facility] OB [address] [facility] [place] [address] Slava Castro, DO [address] [facility] [address] [place], [place] [id number] Scheduled Orders Name Type Priority Associated Diagnoses [...] documented as of this encounter Care Teams Airline Customer Service Agent Relationship Specialty Start Date End Date Parag Bradley MD [address] [place] [phone] PCP - General Family Medicine 08/14/22 Анна Ha, VÍCTOR [address] [place] [address] [facility] 08/25/23 documented as of this encounter
--- OUTSIDE RECORDS SUMMARY | 2024-07-23 09:06 | XMS_ITS | Encounter Summary ---
Author Organization [facility] Address [address] [place] [address] Care Team Providers Care Log Manager Name Role Phone Parag Bradley MD Primary Care Provider [phone] Анна Ha NP Unavailable [phone] Encounter Details Date Type Department Care Team (Late st Contact Info) Description 06/20/2023 Clinisync Result Encounter [facility] External Department Unsolicited Provider, Generic External Data Social History Tobacco Use Types Packs/Day Years Used Date Smoking Tobacco: Former Cigarettes Q uit: 2015 Smokeless Tobacco: Never Comments:Ex-moderate cigaret te smoker [...] week 05/19/2023 How often do you attend chur ch or sabianism services? More than 4 times per year 05/19/2023 Do you belong to any clubs o r organizations such as holiness groups, unions, fraternal or athletic groups, or [...] Date Recorded Patient Health Questionnaire-2 Score 0 05/26/2023 [facility] - Occupational Stress Questionnaire Answer Date Recorded [...] place to sleep or slept in a retirement (including now)? No 05/19/2023 Comments Unknown Sex and Gender Information Value Date Recorded Sex Assigned at Not on file Legal Sex Female 7:11 PM EDT Gender Identity Female 05/08/2022 7:11 PM EDT Sexual Orientation Not on file documented as of this encounter Plan of Treatment Upcoming Encounters Date Type Department Care Team (Late st Contact Info) Description 08/04/2024 2:20 PM EDT Routine [facility] OB [address] [place] [address] [place] [address] Orlin Castro, [address] [place], [place] [id number] 09/07/2024 1:00 PM EDT Office Visit [facility] [address] [place] [address] Анна Ha, GROUND CREW LINES PERSON [address] [place] [address] 12/15/2024 3:00 PM EDT Office Visit [facility] OB [address] [place] [phone] Orlin Castro, [address] [place], [place] [address] documented as of this encounter Procedures Procedure Name Priority Date/Time Associated Diagnosis Comments US OB TRANSVAGINAL 06/20/2023 12 :10 PM EDT documented in this encounter Results * US OB TRANSVAGINAL (06/20/2023 12:10 PM EDT) Anatomical Region Laterality Modality Other 06/20/2023 12:1 0 PM EDT Narrative 06/20/2023 12:12 PM EDT The [address] [address] Ultrasound Report Signed Patient: ROXANNE MARSHALL MR#: [id number] : 1990 Acct:[id number] Age/Sex: 32 / F ADM Date: 06/20/23 Loc: [facility] Attending Dr: Orlin Castro D.O. Ordering Physician: Orlin Castro D.O. Date of Service: 06/20/23 Procedure(s): US OB transvaginal Accession Number(s): [id number] cc: Анна Ha NP; Orlin Castro D.O. [place] [address] Patient Name: ROXANNE MARSHALL MRN: [id number] date: 1990 Sex: F Assigned Patient Location: [facility] Current Patient Location: [facility] Accession/Order Number: [id number] Exam Date: 06/20/2023 08:31 Report Date: 06/20/2023 12:10 At the request of: ORLIN CASTRO Procedure: US OB transvaginal EXAMINATION: US OB transvaginal HISTORY: VIABILITY COMPARISON: 06/13/2023 FINDINGS: Transvaginal images Mak intrauterine gestation Gestational sac: 1.5 cm, 6 weeks 3 days CRL: 2.3 mm, 5 weeks 5 days Yolk sac: 1.4 mm Cardiac activity: Not observed Cervix: Closed, 4 cm. The uterus is normal, anteverted, anteflexed The right ovary is normal measuring 2.5 x 1.3 x 2.3 cm Left ovary is normal measuring 3.0 x 2.2 x 2.6 cm, corpus luteal cyst Clinical age: 9 weeks 5 days Clinical BELL: 01/18/2024 Ultrasound age: 5 weeks 5 days Ultrasound BELL: 02/15/2024 US/US OB transvaginal IMPRESSION: No change in crown-rump length over the course of 7 days. Findings are consistent with miscarriage/ demise Electronically authenticated by: MARE ANDERSON Date: 06/20/2023 12:10 Dictated By: Mare Anderson M.D. Signed By: 06/20/23 1212 DD/ 1210 TD/TT: Cinder Crusher Operator: Procedure Note Radiology, Radiologist, - 06/20/2023 [place] [address] Ultrasound Report Signed Patient: ROXANNE MARSHALL DMR#: [id number] : 1990Acct:[id number] Age/Sex: 32 / FADM Date: 06/20/23 Loc: [facility] Attending Dr: Orlin Castro D.O. Ordering Physician: Orlin Castro D.O. Date of Service: 06/20/23 Procedure(s): US OB transvaginal Accession Number(s): [id number] cc: Анна Ha GROUND CREW LINES PERSON; Orlin Castro D.O. The [place] [id number] Patient Name: ROXANNE MARSHALL MRN: [id number] date: 1990 Sex: F Assigned Patient Location: [facility] Current Patient Location: [facility] Accession/Order Number: [id number] Exam Date: 06/20/2023 08:31 Report Date: 06/20/2023 12:10 At the request of: ORLIN CASTRO Procedure: US OB transvaginal EXAMINATION: US OB transvaginal HISTORY: VIABILITY COMPARISON: 06/13/2023 FINDINGS: Transvaginal images Mak intrauterine gestation Gestational sac: 1.5 cm, 6 weeks 3 days CRL: 2.3 mm, 5 weeks 5 days Yolk sac: 1.4 mm Cardiac activity: Not observed Cervix: Closed, 4 cm. The uterus is normal, anteverted, anteflexed The right ovary is normal measuring 2.5 x 1.3 x 2.3 cm Left ovary is normal measuring 3.0 x 2.2 x 2.6 cm, corpus luteal cyst Clinical age: 9 weeks 5 days Clinical BELL: 01/18/2024 Ultrasound age: 5 weeks 5 days Ultrasound BELL: 02/15/2024 US/US OB transvaginal IMPRESSION: No change in crown-rump length over the course of 7 days. Findings are consistent with miscarriage/ demise Electronically authenticated by: MARE ANDERSON Date: 06/20/2023 12:10 Dictated By: Mare Anderson M.D. Signed By:06/20/23 1212 DD/ 1210 TD/TT: Cinder Crusher Operator: us Generic External Data Provider [facility] Final Result documented in this encounter Visit Diagnoses Not on filedocumented in this encounter Care Teams Log Manager Relationship Specialty Start Date End Date Parag Bradley MD [address] [place] [address] PCP - General Family Medicine 08/14/22 Анна Ha NP [address] [place] [phone] PCP - [facility] 08/25/23 documented as of this encounter
--- OUTSIDE RECORDS SUMMARY | 2024-07-23 09:07 | XMS_ITS | Encounter Summary ---
Author Organization [facility] Address [address] [place] [address] Care Team Providers Care Derrickman Helper Name Role Phone Parag Bradley MD Primary Care Provider Анна Ha NP Unavailable [phone] Encounter Details Date Type Department Care Team (Late st Contact Info) Description 06/16/2023 Orders Only [facility] [address] [place] [address] [place] [address] Slava Castro, DO [address] [facility] [place] [address] [place] [address] Social History Tobacco Use Types Packs/Day Years [...] 05/19/2023 How often do you attend chur or sikhism services? More than 4 times per year 05/19/2023 Do you belong to any clubs o r organizations such as sikhism groups, unions, fraternal or athletic groups, or [...] Recorded Patient Health Questionnaire-2 Score 0 05/26/2023 [facility] - Occupational Stress Questionnaire Answer Date [...] place to sleep or slept in a care home (including now)? No 05/19/2023 Comments Unknown Sex and Gender Information Value Date Recorded Sex Assigned at Not on file Legal Sex Female 7:11 PM EDT Gender Identity Female 05/08/2022 7:11 PM EDT Sexual Orientation Not on file documented as of this encounter Plan of Treatment Upcoming Encounters Date Type Department Care Team (Late st Contact Info) Description 08/04/2024 2:20 PM EDT Routine [facility] OB [address] [place] [address] [place] [phone] Slava Castro [address] [place], [place] [id number] 09/07/2024 1:00 PM EDT Office Visit [facility] [address] [place] [address] Анна Ha NP [address] [place] [address] 12/15/2024 3:00 PM EDT Office Visit [facility] [address] [facility] [place] [phone] Slava Castro [address] [place], [place] [address] documented as of this encounter Procedures Procedure Name Priority Date/Time Associated Diagnosis Comments US OB TRANSVAGINAL Routine 06/13/2023 8:31 AM EDT documented in this encounter Results * US OB transvaginal (06/13/2023 8:31 AM EDT) Anatomical Region Laterality Modality Body Ultrasound us Slava Castro DO IMG OB US PROCEDURES Final Resul t documented in this encounter Visit Diagnoses Not on filedocumented in this encounter Care Teams Derrickman Helper Relationship Specialty Start Date End Date Parag Bradley MD [address] [place] [phone] PCP - General Family Medicine 08/14/22 Анна Ha NP [address] [place] [address] [facility] 08/25/[facility] documented as of this encounter
--- OUTSIDE RECORDS SUMMARY | 2024-07-23 09:07 | XMS_ITS ---
Author Organization [facility] Address [address] [place] [address] Care Team Providers Care Strings Teacher Name Role Phone Parag Bradley MD Primary Care Provider [phone] Анна Ha NP Unavailable [phone] [facility] Status:Enrolled (Active) Start date:03/09/2024 Enrollment date:03/09/2024 Enrollment reason:Identified by Health Plan Case Team Name Relationship Phone Vidya Oliva LPN(Responsible Staff) Licensed Prac tical Nurse Continued Care and Services Coordination
--- OUTSIDE RECORDS SUMMARY | 2024-07-23 09:07 | XMS_ITS | Encounter Summary ---
Author Organization [facility] Address [address] [place] [address] Care Team Providers Care Radiologic Technology Instructor Name Role Phone Parag Bradley MD Primary Care Provider [phone] Анна Ha NP Unavailable [phone] Encounter Details Date Type Department Care Team (Late st Contact Info) Description 06/13/2023 Clinisync Result Encounter [facility] External Department Unsolicited [...] often do you attend chur ch or church services? More than 4 times per year 05/19/2023 Do you belong to any clubs o r organizations such as hindu groups, unions, fraternal or athletic groups, or [...] Recorded Patient Health Questionnaire-2 Score 0 05/26/2023 [facility] Occupat ional [facility] - Occupational Stress Questionnaire Answer Date [...] place to sleep or slept in a longterm (including now)? No 05/19/2023 Comments Unknown Sex and Gender Information Value Date Recorded Sex Assigned at Not on file Legal Sex Female 7:11 PM EDT Gender Identity Female 05/08/2022 7:11 PM EDT Sexual Orientation Not on file documented as of this encounter Plan of Treatment Upcoming Encounters Date Type Department Care Team (Late st Contact Info) Description 08/04/2024 2:20 PM EDT Routine [facility] OB [address] [place] [address] [place] [address] Orlin Castro, DO [address] [place] [address] [place], [place] [id number] 09/07/2024 1:00 PM EDT Office Visit [facility] [address] [place] [address] Анна Ha, INTERVENTIONAL NURSE [address] [place] [address] 12/15/2024 3:00 PM EDT Office Visit [facility] OB [address] [place] [address] [place] [phone] Orlin Castro, [address] [place] [address] documented as of this encounter Procedures Procedure Name Priority Date/Time Associated Diagnosis Comments US OB TRANSVAGINAL 06/13/2023 11 :13 AM EDT [facility] PREG QUANT HCG Routine 06/13/2023 10 :49 AM EDT documented in this encounter Results * US OB TRANSVAGINAL (06/13/2023 11:13 AM EDT) Anatomical Region Laterality Modality Other 06/13/2023 11:1 3 AM EDT Narrative 06/13/2023 11:16 [place] [address] Ultrasound Report Signed Patient: ROXANNE MARSHALL MR#: [id number] : 1990 Acct:[id number] Age/Sex: 32 / F ADM Date: 06/13/23 Loc: [facility] Attending Dr: Orlin Castro D.O. Ordering Physician: Orlin Castro D.O. Date of Service: 06/13/23 Procedure(s): US OB transvaginal Accession Number(s): [id number] cc: Анна Ha INTERVENTIONAL NURSE; Orlin Castro D.O. [place] [id number] Patient Name: ROXANNE MARSHALL MRN: [id number] date: 1990 Sex: F Assigned Patient Location: [facility] Current Patient Location: [facility] Accession/Order Number: [id number] Exam Date: 06/13/2023 09:58 Report Date: 06/13/2023 11:13 At the request of: ORLIN CASTRO Procedure: US OB transvaginal EXAMINATION: US OB transvaginal HISTORY: MISSED MENSES COMPARISON: No relevant comparison available. FINDINGS: GESTATIONAL SAC: Present YOLK SAC: Present POLE: Suspected CARDIAC: Absent UTERUS: Normal size and appearance. OVARIES: Right: Normal. Left: Corpus lutein cyst. CERVIX: 3.6 cm in length and closed. CUL-DE-SAC: Normal. OTHER: None. AGE BY LMP: 8 weeks 5 days BELL BY LMP: 01/18/2024 AGE BY US SAC SIZE: 6 weeks 0 days BELL BY US SAC SIZE: 02/06/2024 US/US OB transvaginal IMPRESSION: 1. Intrauterine with suspected small pole. Blighted ovum cannot be completely excluded. Follow-up recommended. Electronically authenticated by: VALENTE TAI Date: 06/13/2023 11:13 Dictated By: Valente Tai M.D. Signed By: 06/13/23 1116 DD/ 1113 TD/TT: Junior Graphic Designer: Procedure Note Radiology, Radiologist, MD - 06/13/2023 [place] [address] Ultrasound Report Signed Patient: ROXANNE MARSHALL DMR#: [id number] : 1990Acct:[id number] Age/Sex: 32 / FADM Date: 06/13/23 Loc: [facility] Attending Dr: Orlin Castro D.O. Ordering Physician: Orlin Castro D.O. Date of Service: 06/13/23 Procedure(s): US OB transvaginal Accession Number(s): [id number] cc: Анна Ha INTERVENTIONAL NURSE; Orlin Castro D.O. The [place] [address] Patient Name: ROXANNE MARSHALL MRN: [id number] date: 1990 Sex: F Assigned Patient Location: [facility] Current Patient Location: [facility] Accession/Order Number: [id number] Exam Date: 06/13/2023 09:58 Report Date: 06/13/2023 11:13 At the request of: ORLIN CASTRO Procedure: US OB transvaginal EXAMINATION: US OB transvaginal HISTORY: MISSED MENSES COMPARISON: No relevant comparison available. FINDINGS: GESTATIONAL SAC: Present YOLK SAC: Present POLE: Suspected CARDIAC: Absent UTERUS: Normal size and appearance. OVARIES: Right: Normal. Left: Corpus lutein cyst. CERVIX: 3.6 cm in length and closed. CUL-DE-SAC: Normal. OTHER: None. AGE BY LMP: 8 weeks 5 days BELL BY LMP: 01/18/2024 AGE BY US SAC SIZE: 6 weeks 0 days BELL BY US SAC SIZE: 02/06/2024 US/US OB transvaginal IMPRESSION: 1. Intrauterine with suspected small pole. Blighted ovum cannot be completely excluded. Follow-up recommended. Electronically authenticated by: VALENTE TAI Date: 06/13/2023 11:13 Dictated By: Valente Tai M.D. Signed By:06/13/23 1116 DD/ 1113 TD/TT: Junior Graphic Designer: us Generic External Data Provider [facility] Final Result * [facility] PREG QUANT HCG (06/13/2023 10:49 AM EDT) HCG QUANTITATIVE 40,171 mIU/mL [facility] Comment: 5-50 0.2-1 WEEK 50-500 1-2 WEEKS 100-5,000 2-3 WEEKS 500-10,000 3-4 WEEKS 1,000-50,000 4-5 WEEKS 10,000-100,000 5-6 WEEKS 15,000-200,000 6-8 WEEKS 10,000-100,000 2-3 MONTHS 06/13/2023 10:4 9 AM EDT 06/13/2023 10:50 AM EDT Narrative [facility] - 06/13/2023 12:03 PM EDT us Generic External Data Provider [facility] F inal Result Performing Organization Address City/State/[facility] Co de Phone Number [facility] TB documented in this encounter Visit Diagnoses Not on filedocumented in this encounter Care Teams Radiologic Technology Instructor Relationship Specialty Start Date End Date Parag Bradley MD [address] [place] [address] PCP - General Family Medicine 08/14/22 Анна Ha NP [address] [place] [address] PCP - [facility] 08/25/23 documented as of this encounter
--- OUTSIDE RECORDS SUMMARY | 2024-07-23 09:07 | XMS_ITS | Encounter Summary ---
Author Organization [facility] Address [address] [place] [address] Care Team Providers Care Solar Installation Foreman Name Role Phone Parag Bradley MD Primary Care Provider [phone] Анна Ha NP Unavailable [phone] Encounter Details Date Type Department Care Team (Late st Contact Info) Description 06/26/2023 Clinisync Result Encounter [facility] External Department Unsolicited [...] often do you attend chur ch or lutheran services? More than 4 times per year 05/19/2023 Do you belong to any clubs o r organizations such as baptist groups, unions, fraternal or athletic groups, or [...] Recorded Patient Health Questionnaire-2 Score 0 05/26/2023 [facility] of Occupat ional [facility] - Occupational Stress Questionnaire Answer Date [...] place to sleep or slept in a correction (including now)? No 05/19/2023 Comments Unknown Sex and Gender Information Value Date Recorded Sex Assigned at Not on file Legal Sex Female 7:11 PM EDT Gender Identity Female 05/08/2022 7:11 PM EDT Sexual Orientation Not on file documented as of this encounter Plan of Treatment Upcoming Encounters Date Type Department Care Team (Late st Contact Info) Description 08/04/2024 2:20 PM EDT Routine [facility] OB [address] [place] [address] [place] [address] Orlin Castro, [address] [place], [place] [address] 09/07/2024 1:00 PM EDT Office Visit [facility] [address] [place] [address] Анна Ha, SIDE PIECE COVERER [address] [place] [address] 12/15/2024 3:00 PM EDT Office Visit [facility] OB [address] [place] [address] Orlin Castro, [address] [place], [place] [address] documented as of this encounter Procedures Procedure Name Priority Date/Time Associated Diagnosis Comments US OB TRANSVAGINAL 06/26/2023 10 :14 AM EDT documented in this encounter Results * US OB TRANSVAGINAL (06/26/2023 10:14 AM EDT) Anatomical Region Laterality Modality Other 06/26/2023 10:1 4 AM EDT Narrative 06/26/2023 10:16 AM EDT The [address] [address] Ultrasound Report Signed Patient: ROXANNE MARSHALL MR#: [id number] : 1990 Acct:[id number] Age/Sex: 32 / F ADM Date: 06/26/23 Loc: [facility] Attending Dr: Orlin Castor D.O. Ordering Physician: Orlin Castro D.O. Date of Service: 06/26/23 Procedure(s): US OB transvaginal Accession Number(s): [id number] cc: Анна Ha NP; Orlin Castro D.O. The [address] [id number] Patient Name: ROXANNE MARSHALL MRN: [id number] date: 1990 Sex: F Assigned Patient Location: [facility] Current Patient Location: [facility] Accession/Order Number: [id number] Exam Date: 06/26/2023 09:09 Report Date: 06/26/2023 10:14 At the request of: ORLIN CASTRO Procedure: US OB transvaginal EXAMINATION: US OB transvaginal HISTORY: VIABILITY COMPARISON: 06/20/2023, 06/13/2023 FINDINGS: Transvaginal images Mak intrauterine gestation Gestational sac: 1.98 cm, 6 weeks 3 days CRL: 3.7 mm, 6 weeks 0 days Heart rate: No cardiac activity observed Cervix: Closed, 4 cm The uterus is normal, anteverted, anteflexed The cervix is closed measuring 4 cm in length The ovaries are normal. The right ovary measures 2.6 x 1.5 x 2.6 cm The left ovary measures 4.0 x 2.3 x 2.5 cm. US/US OB transvaginal IMPRESSION: No change in crown-rump length from 2 previous studies with absent cardiac activity. 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 Signed By: 06/26/23 1016 DD/ 1014 TD/TT: Bottle Sorter: Procedure Note Radiology, Radiologist, - 06/26/2023 [place] [address] Ultrasound Report Signed Patient: ROXANNE MARSHALL DMR#: [id number] : 1990Acct:[id number] Age/Sex: 32 / FADM Date: 06/26/23 Loc: [facility] Attending Dr: Orlin Castro D.O. Ordering Physician: Orlin Castro D.O. Date of Service: 06/26/23 Procedure(s): US OB transvaginal Accession Number(s): [id number] cc: Анна Ha SIDE PIECE COVERER; Orlin Castro D.O. [place] [address] Patient Name: RXOANNE MARSHALL MRN: [id number] date: 1990 Sex: F Assigned Patient Location: [facility] Current Patient Location: [facility] Accession/Order Number: [id number] Exam Date: 06/26/2023 09:09 Report Date: 06/26/2023 10:14 At the request of: ORLIN CASTRO Procedure: US OB transvaginal EXAMINATION: US OB transvaginal HISTORY: VIABILITY COMPARISON: 06/20/2023, 06/13/2023 FINDINGS: Transvaginal images Mak intrauterine gestation Gestational sac: 1.98 cm, 6 weeks 3 days CRL: 3.7 mm, 6 weeks 0 days Heart rate: No cardiac activity observed Cervix: Closed, 4 cm The uterus is normal, anteverted, anteflexed The cervix is closed measuring 4 cm in length The ovaries are normal. The right ovary measures 2.6 x 1.5 x 2.6 cm The left ovary measures 4.0 x 2.3 x 2.5 cm. US/US OB transvaginal IMPRESSION: No change in crown-rump length from 2 previous studies with absent cardiac activity. 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 Signed By:06/26/23 1016 DD/ 1014 TD/TT: Bottle Sorter: us Generic External Data Provider [facility] Final Result documented in this encounter Visit Diagnoses Not on filedocumented in this encounter Care Teams Solar Installation Foreman Relationship Specialty Start Date End Date Parag Bradley MD [address] [place] [address] PCP - General Family Medicine 08/14/22 Анна Ha NP [address] [place] [address] PCP - [facility] 08/25/23 documented as of this encounter
--- OUTSIDE RECORDS SUMMARY | 2024-07-23 09:07 | XMS_ITS | Encounter Summary ---
Author Organization [facility] Address [address] [place] [address] Care Team Providers Care Senior Oracle Developer Name Role Phone Parag Bradley MD Primary Care Provider [phone] Анна Ha NP Unavailable [phone] Encounter Details Date Type Department Care Team (Late st Contact Info) Description 06/26/2023 Orders Only [facility] [address] [facility] [place] [address] Slava Castro, DO [address] [facility] [address] [place], [place] [address] Social History Tobacco Use Types Packs/Day Years [...] How often do you attend chur or scientologist services? More than 4 times per year 05/19/2023 Do you belong to any clubs o r organizations such as jainism groups, unions, fraternal or athletic groups, or [...] Recorded Patient Health Questionnaire-2 Score 0 05/26/2023 [facility] - [facility]ational Stress Questionnaire Answer Date [...] Description 08/04/2024 2:20 PM EDT Routine N[facility] [address] [place] [address] Slava Castro [address] [place], [place] [address] 09/07/2024 1:00 PM EDT Office Visit [facility] [address] [place] [address] Анна Ha NP [address] [place] [address] 12/15/2024 3:00 PM EDT Office Visit [facility] [address] [place] [address] Slava Castro [address] [place], [place] [address] documented as of this encounter Procedures Procedure Name Priority Date/Time Associated Diagnosis Comments US OB TRANSVAGINAL Routine 06/26/2023 10:39 AM EDT documented in this encounter Results * US OB transvaginal (06/26/2023 10:39 AM EDT) Anatomical Region Laterality Modality Body Ultrasound us Slava Gloria DO IMG OB US PROCEDURES Final Resul t documented in this encounter Visit Diagnoses Not on filedocumented in this encounter Care Teams Senior Oracle Developer Relationship Specialty Start Date End Date Parag Bradley MD [address] [place] [address] PCP - General Family Medicine 08/14/22 Анна Ha NP [address] [place] [address] PCP - [facility] 08/25/23 documented as of this encounter
--- OUTSIDE RECORDS SUMMARY | 2024-07-23 09:08 | XMS_ITS | Encounter Summary ---
Author Organization [facility] Address [address] [place] [address] Care Team Providers Care Senior Catering Sales Manager Name Role Phone Parag Bradley MD Primary Care Provider [phone] Анна Ha NP Unavailable [phone] Encounter Details Date Type Department Care Team (Late st Contact Info) Description 07/21/2024 Telephone [facility] [address] [place] [address] [place] [address] [place] [address] Social History Tobacco Use Types Packs/Day Years [...] often do you attend chur ch or christianity services? More than 4 times per year 05/19/2023 Do you belong to any clubs o r organizations such as denominational groups, unions, fraternal or athletic groups, or [...] Recorded Patient Health Questionnaire-2 Score 0 06/08/2024 [facility] of Occupat ional [facility] - Occupational Stress Questionnaire Answer Date [...] place to sleep or slept in a mcc (including now)? No 05/19/2023 Estimated Date of Delivery Comme nts Yes 09/24/2024 Based on Ultraso und, FHR- 152 Sex and Gender Information Value Date Recorded Sex Assigned at Not on file Legal Sex Female 7:11 PM EDT Gender Identity Female 05/08/2022 7:11 PM EDT Sexual Orientation Not on file documented as of this encounter Miscellaneous Notes * Telephone Encounter - Lizzy Wood MA - 07/21/2024 2:04 PM EDT Pt was called about 1* glucose results and she failed. Asked if she would like to do the 3* or Diabetic Edu? Pt chose to do the 3*. Order was attached to flowsheet. documented in this encounter Plan of Treatment Upcoming Encounters Date Type Department Care Team (Late st Contact Info) Description 08/04/2024 2:20 PM EDT Routine [facility] OB [address] [facility] [place] [address] Slava Castro, [address] [place] [address] 09/07/2024 1:00 PM EDT Office Visit [facility] [address] [place] [address] Анна Ha, CRAP GAME BOX PERSON [address] [place] [address] 12/15/2024 3:00 PM EDT Office Visit [facility] OB [address] [facility] [place] [address] Slava Castro, DO [address] [place], [place] [address] [address] Scheduled Orders Name Type Priority Associated Diagnoses Orde r Schedule Glucose tolerance, 3 hours Lab Routine Elevated glucose tolerance test Expected: 07/21/2024 (Approximate), Expires: 07/21/2025 documented as of this encounter Goals Goal Patient Goal Type Associated Problems Recent Progress Patient-Stated? Author Reminders Care Plan OB Reminders No Open Scheduling, Background documented as of this encounter Visit Diagnoses Diagnosis Elevated glucose tolerance test Impaired glucose tolerance test documented in this encounter Additional Health Concerns Active Problems Noted Date Diagnosed Date OB Reminders 02/11/2024 documented as of this encounter Care Teams Senior Catering Sales Manager Relationship Specialty Start Date End Date Parag Bradley MD [address] [place] [address] PCP - General Family Medicine 08/14/22 Анна Ha NP [address] [place] [address] PCP - [facility] 08/25/23 documented as of this encounter
--- OUTSIDE RECORDS SUMMARY | 2024-07-23 09:08 | XMS_ITS | Encounter Summary ---
Author Organization [facility] Address [address] [place] [address] Care Team Providers Care Masseur/Masseuse Name Role Phone Parag Bradley MD Primary Care Provider Анна Ha NP Unavailable [phone] Encounter Details Date Type Department Care Team (Late st Contact Info) Description 03/04/2024 Abstract [facility] OB [address] [place] [address] Slava Castro, DO [address] [place], [facility] Social History Tobacco Use Types Packs/Day Years [...] often do you attend chur ch or yarsanism services? More than 4 times per year [...] Answer Date Recorded Patient Health Questionnaire-2 Score 1 09/01/2023 [facility] of Occupat ional [facility] - Occupational Stress Questionnaire Answer [...] place to sleep or slept in a usp (including now)? No 05/19/2023 Estimated Date of [...] Description 08/04/2024 2:20 PM EDT Routine [facility] OB [address] [facility] [place] [address] Slava Castro DO [address] [place] [address] [address] [place], [place] [address] 09/07/2024 1:00 PM EDT Office Visit [facility] [address] [place] [address] Анна Ha NP [address] [place] [address] 12/15/2024 3:00 PM EDT Office Visit [facility] OB [address] [facility] [place] [address] Slava Castro, [address] [place] [address] [address] [place], [place] [address] documented as of this encounter Goals Goal Patient Goal Type Associated Problems Recent Progress Patient-Stated? Author Reminders Care Plan OB Reminders No Open Scheduling, Background documented as of this encounter Visit Diagnoses Not on filedocumented in this encounter Additional Health Concerns Active Problems Noted Date Diagnosed Date OB Reminders 02/11/2024 documented as of this encounter Care Teams Masseur/Masseuse Relationship Specialty Start Date End Date Parag Bradley MD [address] [place] [address] PCP - General Family Medicine 08/14/22 Анна Ha NP [address] [place] [address] PCP - [facility] 08/25/23 documented as of this encounter
--- OUTSIDE RECORDS SUMMARY | 2024-07-23 09:08 | XMS_ITS | Patient Health Record ---
Author Organization [facility] Address [address] [place] [address] Care Team Providers Care Analytical Manager Name Role Phone Naida Valera Primary Care Provider Reason For Referral No Information Medications Medication SIG (Take, Route, Frequency, Duration) Notes Start Date End Date Status Zoloft Unknown TRAZODONE Unknown Acetaminophen Extra Strength 500 MG 1 tablet as needed Orally every 6 hrs 01/02/2024 Active Encounters Encounter Location Date Provider Diagnosis [place] [address] [place] [address] 12/25/2023 Naida Valera Cracked tooth K03 .81 [facility] [address] [place] [address] 12/29/2023 Naida Valera Encounter for den mercy examination and cleaning with abnormal findings Z01.21 [facility] [address] [place] [address] 01/02/2024 Naida Valera Encounter for den mercy examination and cleaning with abnormal findings Z01.21 Assessments Encounter Date Diagnosis (ICD Code) Assessment Notes Treatment Notes Treatment Clinical Notes Section Notes 12/25/2023 Cracked tooth (ICD-10 - K03.81) 12/29/2023 Encounter for dental examination and cleaning with abnormal findings (ICD-10 - Z01.21) 01/02/2024 Encounter for dental examination and cleaning with abnormal findings (ICD-10 - Z01.21) Plan Of Treatment Next Appt Details Provider Name:Naida ruff, 11/12/2024 10:30:00 AM, [address] [place], [address], Insurance Providers Payer Name Payer Address Payer Phone Subscriber Number Group Number Insured Name Patient Relationship to Insured Coverage Start Date Coverage End Date D[employer] [address] [address] [place] [phone] [id number] ROXANNE ROGERS Self - patient is the insured 4 Secondary Dental [place] [employer] [address] [address] [place] [address] [id number] ROXANNE ROGERS Self - patient is the insured 3 Dental [employer] [facility] [place] [address] [place] [address] [phone] [id number] ROXANNE ROGERS Self - patient is the insured 3
--- OUTSIDE RECORDS SUMMARY | 2024-07-23 09:08 | XMS_ITS | Encounter Summary ---
Author Organization [facility] Address [address] [place] [address] Care Team Providers Care Handle Bar Assembler Name Role Phone Parag Bradley MD Primary Care Provider [phone] Анна Ha BREASTFEEDING PROGRAM COORDINATOR Unavailable [phone] Encounter Details Date Type Department Care Team (Late Contact Info) Description 03/04/2023 Abstract [facility] [address] [place] [address] Анна Ha, BREASTFEEDING PROGRAM COORDINATOR [address] [place] [address] Social History Tobacco Use Types Packs/Day Years Used Date Smoking Tobacco: Former Cigarettes Q uit: 2014 Smokeless Tobacco: Never Comments:Ex-moderate cigaret te smoker (10-19/day) Alcohol Use Standard Drinks/Week Comments Never 0 (1 standard drink = 0.6 oz pur e alcohol) Caffeine: occasional Comments Unknown Sex and Gender Information Value Date Recorded Sex Assigned at Not on file Legal Sex Female 7:11 PM EDT Gender Identity Female 05/08/2022 7:11 PM EDT Sexual Orientation Not on file documented as of this encounter Plan of Treatment Upcoming Encounters Date Type Department Care Team (Late Contact Info) Description 08/04/2024 2:[address] [facility] [address] [place] [address] Slava Castro DO [address] [place] [address] 09/07/2024 1:00 PM EDT Office Visit [facility] [address] [place] [address] Анна Ha, VÍCTOR [address] [place] [address] 12/15/2024 3:00 PM EDT Office Visit [facility] [address] [facility] [place] [address] Slava Castro DO [address] [facility] [place] [address] documented as of this encounter Visit Diagnoses Not on filedocumented in this encounter Care Teams Handle Bar Assembler Relationship Specialty Start Date End Date Parag Bradley MD [address] [place] [address] PCP - General Family Medicine 08/14/22 Анна Ha, VÍCTOR [address] [place] [address] PCP - [facility] 08/25/23 documented as of this encounter
--- OUTSIDE RECORDS SUMMARY | 2024-07-23 09:08 | XMS_ITS | Clinical Summary ---
Author Organization [facility] Address [address] [place] [address] Care Team Providers Care Elevator Repairer Helper Name Role Phone Parag Bradley MD Primary Care Provider Анна Ha NP Unavailable [phone] Allergies Active Allergy Reactions Criticality Noted Date Comments Other 11/25/2022 Powder on gloves Other Reaction(s): rash/itching Medications MV-Min-Fe Fum-FA-DHA ( 1 PO) Take 1 each by mouth Daily Active traZODone (Desyrel) 100 MG tabletIndicatio ns:Primary insomnia Take 1 tablet (100 mg) by mouth at bedtime 30 tablet 2 02/26/2024 Active aspirin 81 MG EC tablet Take 81 mg by mouth Daily Active omeprazole (PriLOSEC) [address] capsuleIndicati ons:Heartburn during in second trimester Take 1 capsule (20 mg) by mouth in the morning. Take before meals. Do not crush or chew.. 30 capsule 11 05/10/2024 Active Active Problems Problem Noted Date Diagnosed Date Encounter for wellness examination in adult 09/2023 Assessment & Plan (09/01/2023 11:00 AM EDT): Reviewed Ht/Wt/BMI Recommend eye exam yearly Recommend dental exams twice a year Balance work/leisure activities Exercises is recommended most days of the week (appropriate as chronic conditions allow) Follow up yearly and prn Depression 09/01/2023 Obesity (BMI 30-39.9) 05/26/2023 Left wrist pain 05/03/2023 Insomnia 02/27/2023 Assessment & Plan (09/01/2023 11:01 AM EDT): Refill trazodone Fu in 6 months Assessment & Plan (05/26/2023 2:15 PM EDT): Has done very well with Trazodone over the years, she would like to continue Also is newly , about 6 weeks Asking for advice on continuing it. It is category C, at this point we discussed what this meant, and she would like to continue taking it. She has an upcoming appt with OB in about 3 weeks and if they recommend discontinue then we will. States in prior she trial unisom and zinc no help Fu in 3 months Supraventricular tachycardia 12/09/2019 Estimated Date of Delivery Comme nts Yes 09/24/2024 Based on Ultraso und, FHR- 152 Resolved Problems Problem Noted Date Diagnosed Date Resolved Date Major depressive disorder, s chay episode, mild (HCC) 09/01/2023 09/01/2023 Encounters Date Type Department Care Team Description 07/21/2024 2:20 PM EDT Routine [facility] [address] [place] [address] Vidya Sepulveda PA Third trimester ; 30 weeks gestation of ; History of gestational diabetes 07/21/2024 Telephone [facility] [address] [place] [address] Lizzy Wood MA 07/17/2024 Clinisync Result Encounter [facility] External Department Unsolicited Provider, Generic External Data 07/14/2024 Travel 07/08/2024 Telephone [facility] [address] [place] [address] Leesa Coon MA 07/07/2024 Patient Outreach [facility] [place] [address] Vidya Oliva LPN 07/06/2024 1:50 PM EDT Routine [facility] [address] [place] [address] Slava Castro DO Third trimester ; 28 weeks gestation of ; Elevated glucose tolerance test; Diabetes mellitus screening; SGA (small for gestational age) 07/06/2024 1:30 PM EDT Ancillary Procedure [facility] [address] [place] [address] Antepartum multigravida of advanced maternal age 0507/05/2024 Clinisync Result Encounter [facility] External Department Unsolicited Provider, Generic External Data 06/16/2024 1:20 PM EDT Routine [facility] [place] [address] Ximena Carver, VÍCTOR Second trimester ; 25 weeks gestation of ; Screen for STD (sexually transmitted disease); Diabetes mellitus screening; Antepartum multigravida of advanced maternal age 0406/16/2024 External Result Encounter [facility] External Department Unsolicited Slava Castro DO 06/16/2024 Bamboo flowsheet [facility] [address] [place] [address] Ximena Carver NP 06/15/2024 Travel 06/08/2024 Patient Outreach [facility] [address] [place] [address] Vidya Oliva LPN 06/03/2024 Travel 05/10/2024 2:40 PM EDT Routine [facility] [address] [place] [address] Slava Castro DO Second trimester ; 20 weeks gestation of ; Heartburn during in second trimester 05/10/2024 1:30 PM EDT Ancillary Procedure [facility] [address] [place] [address] Screening, , for anatomic survey 05/06/2024 Patient Outreach [facility] [address] [place] [address] Vidya Oliva LPN 05/04/2024 Travel from Last 3 Months Immunizations Immunization Administration Dates Next Due Influenza, seasonal, injectable, preservative fr ee 12/08/2017 Family History Medical History Relation Name Comments Multiple sclerosis Father's Sister Bladder Cancer Maternal Grandfather COPD Maternal Grandfather Emphysema Maternal Grandfather Cervical cancer Maternal Grandmother Heart disease Maternal Grandmother Hypertension Mother Lupus Mother Ovarian cancer Other 1 M. Gr. Aunts Multiple sclerosis Other 2 P. Gr. Aunt Relation Name Status Comments Father's Sister Maternal Grandfather Maternal Grandmother Mother Other 1 M. Gr. Aunts Other 2 P. Gr. Aunt Social History Tobacco Use Types Packs/Day Years Used Date Smoking Tobacco: Former Cigarettes Q uit: 2014 Smokeless Tobacco: Never Tobacco Cessation:Counseling Given: Not Answered Comments:Ex-moderate cigarette smoker (10-19/day) Alcohol Use Standard Drinks/Week Comments [...] How often do you attend chur or buddhism services? More than 4 times per year 05/19/2023 Do you belong to any clubs o r organizations such as taoist groups, unions, fraternal or athletic groups, or [...] Recorded Patient Health Questionnaire-2 Score 0 06/08/2024 [facility] [place] of Occupat ional Health - Occupational Stress Questionnaire Answer Date Recorded [...] place to sleep or slept in a jail (including now)? No 05/19/2023 Estimated Date of Delivery Comme nts Yes 09/24/2024 Based on Ultraso und, FHR- 152 Sex and Gender Information Value Date Recorded Sex Assigned at Not on file Legal Sex Female 7:11 PM EDT Gender Identity Female 05/08/2022 7:11 PM EDT Sexual Orientation Not on file Last Filed Vital Signs Vital Sign Reading Time Taken Comments Blood Pressure 110/74 07/21/2024 2:30 PM EDT Pulse 97 09/01/2023 10:37 AM EDT Temperature 37.1 C (98.8 F) 09/01/2023 10:37 AM EDT Respiratory Rate 18 09/01/2023 10:37 AM EDT Oxygen Saturation 97% 09/01/2023 10:37 AM EDT Inhaled Oxygen Concentration - - Weight 79.6 kg (175 lb 6.4 oz) 07/21/2024 2:30 P M EDT Height 154.9 cm (5' 1 ) 09/01/2023 10:37 AM EDT Body Mass Index 33.14 09/01/2023 10:37 AM EDT Plan of Treatment Upcoming Encounters Date Type Department Care Team (Late st Contact Info) Description 08/04/2024 2:20 PM EDT Routine [facility] [address] [facility] [address] Slava Castro, [address] [place], [place] [phone] 09/07/2024 1:00 PM EDT Office Visit [facility] [address] [place] [address] Анна Ha, ASSURANCE OFFICER [address] [place] [address] 12/15/2024 3:00 PM EDT Office Visit [facility] [address] [facility] [address] Slava Castro, DO [address] [place], [place] [phone] Health Maintenance Due Date Last Done Comments Cervical Cancer Screening 12/09/2028 HPV/Cotest 12/09/2028 Pap Smear 12/09/2028 12/10/2023, 11/25/2022 Influenza Vaccine Discontinued 12/08/2017 Goals Goal Patient Goal Type Associated Problems Recent Progress Patient-Stated? Author Reminders Care Plan OB Reminders No Open Scheduling, Background Procedures Procedure Name Priority Date/Time Associated Diagnosis Comments GLUCOSE 1 HOUR Routine 07/17/2024 9:48 AM EDT POCT URINALYSIS DIPSTICK Routine 07/06/2024 2:18 PM EDT Third trimester US OB FOLLOW UP TRANSABDOMINAL APPROACH Routine 07/06/2024 2:04 PM EDT Antepartum multigravida of advanced maternal age GLUCOSE 1 HOUR Routine 07/05/2024 10:48 AM EDT ALL CBC WITH AUTO DIFF Routine 10:48 AM EDT RECURRENT VAGINITIS (HTRX) Routine 06/16/2024 2:27 PM EDT POCT URINALYSIS DIPSTICK Routine 06/16/2024 1:50 PM EDT Second trimester US OB 14+ WEEKS ANATOMY SCAN Routine 05/10/2024 2:35 PM EDT Screening, , for anatomic survey PAP SMEAR Routine 12/10/2023 12:00 AM EDT from Last 3 Months or Most Recently Relevant to Health Maintenance Results * (ABNORMAL) GLUCOSE 1 HOUR (07/17/2024 9:48 AM EDT) Only the most recent of2 resultswithin the time period is included. GLUCOSE 1 HOUR 162(H) <130 mg/dL TBH 07/17/2024 9:48 AM EDT 07/17/2024 9:49 AM EDT Narrative CLINISYNC - 07/17/2024 10:52 AM EDT us Slava Gloria DO LAB BLOOD ORDERABLES Final Resul t [facility] * POCT urinalysis dipstick manually resulted (07/06/2024 2:18 PM EDT) Only the most recent of2 resultswithin the time period is included. Color, UA Yellow Clarity, UA Clear Glucose, UA Negative Negative - 2000(110) ++++ mg/dL Bilirubin, UA Negative Negative - 4(70) +++ mg/dL Ketones, UA Negative Negative - 160(16) ++++ mg/dL Spec Grav, UA 1.015 1 - 1.03 Blood, UA Negative Negative - 50 Richy/mcL pH, UA 7.0 5 - 9 Protein, UA Negative Negative - 1999(20) ++++ mg/dL Urobilinogen, UA 0.2 0.2 - 12 mg/dL Leukocytes, UA Negative Negative - 500+++ Tano/mcL Nitrite, UA Negative Negative - Positive Urine 07/06/2024 2:18 PM EDT [facility] POINT OF CARE TEST ENTER/EDIT OR DERABLES Final Result * US OB follow up transabdominal approach (07/06/2024 2:04 PM EDT) Anatomical Region Laterality Modality Body Ultrasound 07/07/2024 10:0 2 AM EDT Narrative 07/07/2024 10:02 AM EDT EXAM: US OB FOLLOW UP TRANSABDOMINAL APPROACH HISTORY: Advanced maternal age. COMPARISON: Ob [...] 09/28/2024. Interpreted by: Electronically signed by TABITHA HARRIS II, MD, PHD at 07-Jul-2024 10:00:26 AM [facility] Procedure Note Tabitha Harris MD - 07/07/2024 EXAM: US OB FOLLOW UP TRANSABDOMINAL APPROACH HISTORY: Advanced maternal age. COMPARISON: Ob ultrasound 05/10/2024. TECHNIQUE: Two-dimensional transabdominal grayscale ultrasound imaging ofthe pelvis was performed. FINDINGS: Gestation: Single Presentation: Cephalic Cardiac Activity: 123 beats per minute Placental Location: Posterior with no sonographic abnormalitiesidentified. Cervical canal: Obscured Amniotic Fluid Index: 10.3 cm MEASUREMENTS: BPD: 7.1 cm EGA: 28 weeks 5 days HC: 25.3 cm EGA: 27 weeks 3 days AC: 23.2 cm EGA: 27 weeks 4 days FL: 5.3 cm EGA: 28 weeks 1 days HC/AC Ratio: 1.09 The gestational age by today's ultrasound is 28 weeks 0 days (+/- 14 daysgestation). Estimated Weight: 1131 grams, +/- 170 grams ( 2 lb 8 oz). Weight Percentile for gestational age: 15 % IMPRESSION: 1. Single, live intrauterine gestation 28 weeks, 4 days by LMP. Today'sultrasound measurements correlate with a gestational age of 28 weeks 0days. Estimated weight is 1131 grams, +/- 170 grams ( 2 lb 8 oz)which correlates to 15 %. BELL is 09/28/2024. Interpreted by: Electronically signed by TABITHA HARRIS II, MD, PHD [id number] 10:00:26 AM [facility] us Slava Gloria DO IMG OB US PROCEDURES Final Resul t * (ABNORMAL) ALL CBC WITH AUTO DIFF (07/05/2024 10:48 AM EDT) TB WBC 7.4 4.0 - 11.0 10 3/uL TBH TBH RBC 3.78(L) 4.20 - 5.40 10 6/uL TBH TBH HGB 11.6(L) 12.0 - 16.0 g/dL TBH TBH HCT 35.5(L) 36.0 - 48.0 % TBH TBH MCV 93.9 81.0 - 99.0 fL TBH TBH MCH 30.7 26.7 - 34.0 pg TBH TBH MCHC 32.7 29.9 - 35.2 g/dL TBH TBH RDW 12.9 11.0 - 15.0 % TBH TBH PLT 218 150 - 450 10 3/uL TBH TBH MPV 9.6 9.5 - 13.5 fL TBH NEUTROPHILS PERCENT AUTO 71.2 43.0 - 75.0 % TBH LYMPHOCYTES PERCENT AUTO 22.3 20.5 - 60.0 % TBH MONOCYTES PERCENT AUTO 5.5 1.7 - 12.0 % TBH TBH EO % 0.3(L) 0.9 - 7.0 % TBH BASOPHILS PERCENT AUTO 0.3 0.2 - 2.0 % TBH IMMATURE GRANULOCYTES PCT AUTO 0.4 0.0 - 0.5 % TBH NEUTROPHILS ABSOLUTE AUTO 5.3 1.4 - 6.5 10 3/uL TBH LYMPHOCYTES ABSOLUTE AUTO 1.7 1.2 - 3.8 10 3/uL TBH MONOCYTES ABSOLUTE AUTO 0.4 0.3 - 0.8 10 3/uL TBH TBH EO # 0.0 0.0 - 0.7 10 3/uL TBH BASOPHILS ABSOLUTE AUTO 0.0 0.0 - 0.1 10 3/uL TBH IMMATURE GRANULOCYTES ABS AUTO 0.03 0.00 - 0.03 10 3/uL TBH 07/05/2024 10:4 8 AM EDT 07/05/2024 10:48 AM EDT Narrative CLINISYNC - 07/05/2024 10:58 AM EDT us Ximena Carver NP CLINISYEUN Final Result [facility] * RECURRENT VAGINITIS (HTRX) (06/16/2024 2:27 PM EDT) [facility] ATOPOBIUM VAGINAE 0.000 19.961 - 24.689 ppm 06/17/2024 8:02 AM EDT [facility] ATOPOBIUM VAGINAE Not Detected 19.961 - 24.689 ppm 06/17/2024 8:02 AM EDT [facility] BVAB 2,3 (BACTERIAL VAGINOSIS ASSOCIATED BACTERIA 2, 3); MOBILUNCUS SPP 0.000 19.961 - 24.689 ppm 06/17/2024 8:02 AM EDT [facility] BVAB 2,3 (BACTERIAL VAGINOSIS ASSOCIATED BACTERIA 2, 3); MOBILUNCUS SPP Not Detected 19.961 - 24.689 ppm 06/17/2024 8:02 AM EDT [facility] RANJANA ALBICANS, PARAPSILOSIS, TROPICALIS 0.000 19.961 - 30.770 ppm 06/17/2024 8:02 AM EDT [facility] RANJANA ALBICANS, PARAPSILOSIS, TROPICALIS Not Detected 19.961 - 30.770 ppm 06/17/2024 8:02 AM EDT [facility] RANJANA GLABRATA 0.000 23.000 - 32.138 ppm 06/17/2024 8:02 AM EDT [facility] RANJANA GLABRATA Not Detected 23.000 - 32.138 ppm 06/17/2024 8:02 AM EDT [facility] RANJANA KRUSEI 0.000 23.000 - 32.271 ppm 06/17/2024 8:02 AM EDT [facility] RANJANA KRUSEI Not Detected 23.000 - 32.271 ppm 06/17/2024 8:02 AM EDT [facility] CHLAMYDIA TRACHOMATIS 0.000 23.000 - 31.467 ppm 06/17/2024 8:02 AM EDT [facility] CHLAMYDIA TRACHOMATIS Not Detected 23.000 - 31.467 ppm 06/17/2024 8:02 AM EDT [facility] GARDNERELLA VAGINALIS 0.000 19.961 - 24.689 ppm 06/17/2024 8:02 AM EDT [facility] GARDNERELLA VAGINALIS Not Detected 19.961 - 24.689 ppm 06/17/2024 8:02 AM EDT [facility] MEGASPHAERA (TYPES 1, 2) 0.000 19.961 - 24.689 ppm 06/17/2024 8:02 AM EDT [facility] MEGASPHAERA (TYPES 1, 2) Not Detected 19.961 - 24.689 ppm 06/17/2024 8:02 AM EDT [facility] NEISSERIA GONORRHOEAE 0.000 23.000 - 32.117 ppm 06/17/2024 8:03 AM EDT [facility] NEISSERIA GONORRHOEAE Not Detected 23.000 - 32.117 ppm 06/17/2024 8:03 AM EDT [facility] TRICHOMONAS VAGINALIS 0.000 23.000 - 32.119 ppm 06/17/2024 8:02 AM EDT [facility] TRICHOMONAS VAGINALIS Not Detected 23.000 - 32.119 ppm 06/17/2024 8:02 AM EDT [facility] MYCOPLASMA GENITALIUM 0.000 19.961 - 24.689 ppm 06/17/2024 8:02 AM EDT [facility] MYCOPLASMA GENITALIUM Not Detected 19.961 - 24.689 ppm 06/17/2024 8:02 AM EDT [facility] Tissue 06/16/2024 2:27 PM EDT 06/17/2024 1:54 AM EDT us Slava Castro DO LAB BLOOD ORDERABLES Final Resul t [facility] [address] [place] [address] * US OB 14+ weeks anatomy scan (05/10/2024 2:35 PM EDT) Anatomical Region Laterality Modality Body Ultrasound 05/11/2024 12:3 7 AM EDT Narrative 05/11/2024 12:37 AM EDT EXAM: US OB 14+ WEEKS ANATOMY SCAN HISTORY: anatomy. COMPARISON: None available. TECHNIQUE: [...] the anatomy. Electronically Signed:Electronically signed by TABITHA HARRIS II, MD, PHD at 11-May-2024 12:36:27 AM [facility] Procedure Note Tabitha Harris MD - 05/11/2024 EXAM: US OB 14+ WEEKS ANATOMY SCAN HISTORY: anatomy. COMPARISON: None available. TECHNIQUE: Two-dimensional transabdominal grayscale ultrasound imaging ofthe pelvis was performed. FINDINGS: Gestation: Single Presentation: Cephalic Cardiac Activity: Present Placental Location: Posterior with no sonographic abnormalitiesidentified. Distance from Placental Tip to Cervix: 4.3 [...] is 20 weeks 2 days (+/- 7 daysgestation). Estimated Weight: 371 grams, +/- 56 grams [...] gestation 20 weeks, 3 days by LMP. Today'sultrasound measurements correlate with a gestational age of 20 weeks 2days. Estimated weight is 371 grams, +/- 56 grams ( 0 lb 13 oz)which correlates to 60 %. BELL is 09/25/2024. 2. Unremarkable ultrasound of the anatomy. Electronically Signed:Electronically signed by TABITHA HARRIS II, MD, PHDat 11-May-2024 12:36:27 AM [facility] us Vidya DESAI IMG OB US PROCEDURES Final Resul t * Pap Smear (12/10/2023 12:00 AM EDT) Swab Cervical swab / Unknown us Slava Castro DO LAB CYTOLOGY ORDERABLES Final Re sult EXTERNAL LAB from Last 3 Months or Most Recently Relevant to Health Maintenance Additional Health Concerns Active Problems Noted Date Diagnosed Date OB Reminders 02/11/2024 Insurance [employer] Care Teams Elevator Repairer Helper Relationship Specialty Start Date End Date Parag Bradley MD [address] [place] [phone] PCP - General Family Medicine 08/14/22 Анна Ha NP [address] [place] [phone] PCP - [facility] 08/25/23
--- OUTSIDE RECORDS SUMMARY | 2024-07-23 09:08 | XMS_ITS | Encounter Summary ---
Author Organization [facility] Address [address] [place] [address] Care Team Providers Care Machine Room Operator Name Role Phone Parag Bradley MD Primary Care Provider [phone] Анна Ha NP Unavailable [phone] Encounter Details Date Type Department Care Team (Late st Contact Info) Description 07/17/2024 Clinisync Result Encounter [facility] External Department [...] often do you attend chur ch or mormon services? More than 4 times per year 05/19/2023 Do you belong to any clubs o r organizations such as quaker groups, unions, fraternal [...] Recorded Patient Health Questionnaire-2 Score 0 06/08/2024 [facility] of Occupat ional Health - Occupational Stress [...] place to sleep or slept in a senior living (including now)? No 05/19/2023 Estimated Date of [...] Description 08/04/2024 2:20 PM EDT Routine [facility] [address] [facility] [place] [phone] Slava Castro, [facility] [place], [place] [phone] 09/07/2024 1:00 PM EDT Office Visit [facility] [address] [place] [address] Анна Ha, ASSISTANT PRODUCTION EDITOR [address] [place] [address] 12/15/2024 3:00 PM EDT Office Visit [facility] OB [address] [place], [place] [address] [place] [phone] Slava Castro, [facility] [place], [place] [phone] documented as of this encounter Goals Goal Patient Goal Type Associated Problems Recent Progress Patient-Stated? Author Reminders Care Plan OB Reminders No Open Scheduling, Background documented as of this encounter Procedures Procedure Name Priority Date/Time Associated Diagnosis Comments GLUCOSE 1 HOUR Routine 07/17/2024 9:48 AM EDT documented in this encounter Results * (ABNORMAL) GLUCOSE 1 HOUR (07/17/2024 9:48 AM EDT) GLUCOSE 1 HOUR 162(H) <130 mg/dL TBH 07/17/2024 9:48 AM EDT 07/17/2024 9:49 AM EDT Narrative CLINISYNC - 07/17/2024 10:52 AM EDT us Slava Casrto DO LAB BLOOD ORDERABLES Final Resul t [facility] TB documented in this encounter Visit Diagnoses Not on filedocumented in this encounter Additional Health Concerns Active Problems Noted Date Diagnosed Date OB Reminders 02/11/2024 documented as of this encounter Care Teams Machine Room Operator Relationship Specialty Start Date End Date Parag Bradley MD [address] [place] [address] PCP - General Family Medicine 08/14/22 Анна Ha NP [address] [place] [address] PCP - [facility] 08/25/23 documented as of this encounter
--- OUTSIDE RECORDS SUMMARY | 2024-07-23 09:08 | XMS_ITS ---
Author Organization [facility] Source Produ ction (ClinicalSummary Clone) Address Unknown Care Team Providers Care Electronic Sales And Service Technician Name Role Phone Unavailable Primary Care Physician Unavailab le Results * [UNITY] ANEUPLOIDY NIPT Performed by: [employer] Value Range Date Fraction 4.9% 03/04/2024 04 :25 am UT Sex Chromosome Aneuploidy NOT DETECTED 04:25 am UT Monosomy X LOW RISK <1 in 10,000 2024 04:25 am UT Trisomy 13 LOW RISK <1 in 10,000 2024 04:25 am UT Trisomy 18 LOW RISK <1 in 10,000 2024 04:25 am UT Trisomy 21 LOW RISK <1 in 10,000 2024 04:25 am UT Sex FEMALE 03/04/2024 04:2 5 am UT Gestation BARBOSA 03/04/19 04:25 am UT For detailed report, see PDF See PDF 03/04/2024 04:25 am UTC 03/04/2024 04:2 5 am UT Social History Observation Value Start Date End Date
--- OUTSIDE RECORDS SUMMARY | 2024-07-23 09:08 | XMS_ITS | Encounter Summary ---
Author Organization [facility] Address [address] [place] [address] Care Team Providers Care Assembly Line Inspector Name Role Phone Parag Bradley MD Primary Care Provider [phone] Анна Ha NP Unavailable [phone] Encounter Details Date Type Department Care Team (Latest Contact Info) Description 07/14/2024 Travel Social History Tobacco Use Types Packs/Day Years [...] How often do you attend chur or yarsanism services? More than 4 times [...] Recorded Patient Health Questionnaire-2 Score 0 06/08/2024 [facility] of Occupat ional Health - Occupational Stress [...] place to sleep or slept in a group home (including now)? No 05/19/2023 Estimated Date of [...] PM EDT Routine [facility] [address] [place] [phone] Slava Castro, DO [address] [place], [place] [phone] 09/07/2024 1:00 PM EDT Office Visit [facility] [address] [place] [phone] Анна Ha NP [address] [place] [phone] 12/15/2024 3:00 PM EDT Office Visit [facility] OB [address] [facility] [place] [phone] Slava Castro, DO [address] [place] [address] [place], [place] [id number] documented as of this encounter Goals Goal Patient Goal Type Associated Problems Recent Progress Patient-Stated? Author Reminders Care Plan OB Reminders No Open Scheduling, Background documented as of this encounter Visit Diagnoses Not on filedocumented in this encounter Additional Health Concerns Active Problems Noted Date Diagnosed Date OB Reminders 02/11/2024 documented as of this encounter Care Teams Assembly Line Inspector Relationship Specialty Start Date End Date Parag Bradley MD [address] [place] [phone] PCP - General Family Medicine 08/14/22 Анна Ha NP [address] [place] [phone] [facility] 08/25/23 documented as of this encounter
--- OUTSIDE RECORDS SUMMARY | 2024-07-23 09:08 | XMS_ITS | Encounter Summary ---
Author Organization [facility] Address [address] [place] [address] Care Team Providers Care Shell Trim Tool Setter Name Role Phone Parag Bradley MD Primary Care Provider Анна Ha NP Unavailable [phone] Encounter Details Date Type Department Care Team (Late st Contact Info) Description 02/12/2024 Clinisync Result Encounter [facility] External Department Unsolicited [...] often do you attend chur ch or gnosticism services? More than 4 times per year 05/19/2023 Do you belong to any clubs o r organizations such as mormonism groups, unions, fraternal or athletic groups, or [...] Recorded Patient Health Questionnaire-2 Score 1 09/01/2023 [facility] - Occupational Stress Questionnaire Answer Date Recorded [...] in a longterm (including now)? No 05/19/2023 Estimated Date of [...] Description 08/04/2024 2:20 PM EDT Routine [facility] [address] [place] [address] [place] [phone] Orlin Castro, [address] [place], [place] [id number] 09/07/2024 1:00 PM EDT Office Visit [facility] [address] [place] [address] Анна Ha, STEEL TESTER [address] [place] [address] 12/15/2024 3:00 PM EDT Office Visit [facility] [address] [place], [place] [address] [phone] Orlin Castro, [address] [place], [place] [id number] documented as of this encounter Goals Goal Patient Goal Type Associated Problems Recent Progress Patient-Stated? Author Reminders Care Plan OB Reminders No Open Scheduling, Background documented as of this encounter Procedures Procedure Name Priority Date/Time Associated Diagnosis Comments US OB TRANSVAGINAL 02/12/2024 4: 29 AM EST documented in this encounter Results * US OB TRANSVAGINAL (02/12/2024 4:29 AM EST) Anatomical Region Laterality Modality Other 02/12/2024 4:29 AM EST Narrative 02/12/2024 4:31 [place] [address] Ultrasound Report Signed Patient: ROXANNE MARSHALL MR#: [id number] : 1990 Acct:[id number] Age/Sex: 33 / F ADM Date: 02/11/24 Loc: [facility] Attending Dr: Orlin Castro D.O. Ordering Physician: Orlin Castro D.O. Date of Service: 02/11/24 Procedure(s): US OB transvaginal Accession Number(s): [id number] cc: Анна Ha STEEL TESTER; Orlin Castro D.O. [address] [address] Patient Name: ROXANNE MARSHALL MRN: [id number] date: 1990 Sex: F Assigned Patient Location: [facility] Current Patient Location: Accession/Order Number: [id number] Exam Date: 02/11/2024 09:39 Report Date: 02/12/2024 04:29 At the request of: ORLIN CASTRO Procedure: US OB transvaginal EXAMINATION: US OB transvaginal HISTORY: MISSED MENSES COMPARISON: No relevant comparison available. FINDINGS: GESTATIONAL SAC: Present and normal appearing. YOLK SAC: Present and normal appearing. POLE: Present and normal appearing. CARDIAC: Present. UTERUS: Normal size and appearance. OVARIES: Right: Normal. Left: Normal. CERVIX: 3.9 cm in length and closed. CUL-DE-SAC: Normal. OTHER: None. AGE BY LMP: 8 weeks 6 days BELL BY LMP: 09/16/2024 AGE BY US CRL: 7 weeks 5 days BELL BY US CRL: 09/24/2024 US/US OB transvaginal IMPRESSION: 1. Single live intrauterine . Electronically authenticated by: VALENTE TAI Date: 02/12/2024 04:29 Dictated By: Valente Tai M.D. Signed By: 02/12/24 0431 DD/ 0429 TD/TT: Machine Adjuster Helper: Procedure Note Radiology, Radiologist, MD Herr 02/12/2024 [place] [address] Ultrasound Report Signed Patient: ROXANNE MARSHALL DMR#: [id number] : 1990Acct:[id number] Age/Sex: 33 / FADM Date: 02/11/24 Loc: [facility] Attending Dr: Orlin Castro D.O. Ordering Physician: Orlin Castro D.O. Date of Service: 02/11/24 Procedure(s): US OB transvaginal Accession Number(s): [id number] cc: Анна Ha STEEL TESTER; Orlin Castro D.O. [facility] [place] [id number] Patient Name: ROXANNE MARSHALL MRN: [id number] date: 1990 Sex: F Assigned Patient Location: [facility] Current Patient Location: Accession/Order Number: [id number] Exam Date: 02/11/2024 09:39 Report Date: 02/12/2024 04:29 At the request of: ORLIN CASTRO Procedure: US OB transvaginal EXAMINATION: US OB transvaginal HISTORY: MISSED MENSES COMPARISON: No relevant comparison available. FINDINGS: GESTATIONAL SAC: Present and normal appearing. YOLK SAC: Present and normal appearing. POLE: Present and normal appearing. CARDIAC: Present. UTERUS: Normal size and appearance. OVARIES: Right: Normal. Left: Normal. CERVIX: 3.9 cm in length and closed. CUL-DE-SAC: Normal. OTHER: None. AGE BY LMP: 8 weeks 6 days BELL BY LMP: 09/16/2024 AGE BY US CRL: 7 weeks 5 days BELL BY US CRL: 09/24/2024 US/US OB transvaginal IMPRESSION: 1. Single live intrauterine . Electronically authenticated by: VALENTE TAI Date: 02/12/2024 04:29 Dictated By: Valente Tai M.D. Signed By:02/12/24 0431 DD/ 0429 TD/TT: Machine Adjuster Helper: us Generic External Data Provider [facility] Final Result documented in this encounter Visit Diagnoses Not on filedocumented in this encounter Additional Health Concerns Active Problems Noted Date Diagnosed Date OB Reminders 02/11/2024 documented as of this encounter Care Teams Shell Trim Tool Setter Relationship Specialty Start Date End Date Parag Bradley MD [address] [place] [address] PCP - General Family Medicine 08/14/22 Анна Ha NP [address] [place] [address] PCP - [facility] 08/25/23 documented as of this encounter
--- OUTSIDE RECORDS SUMMARY | 2024-07-23 09:08 | XMS_ITS | Encounter Summary ---
Author Organization [facility] Address [address] [place] [address] Care Team Providers Care Supervisor Housecleaner Name Role Phone Parag Bradley MD Primary Care Provider Анна Ha NP Unavailable [phone] Encounter Details Date Type Department Care Team (Late st Contact Info) Description 03/01/2024 Abstract [facility] [address] [place] [address] Slava Castro, DO [address] [place], [facility]11 Social History Tobacco Use Types Packs/Day [...] often do you attend chur ch or jewish services? More than 4 times per year 05/19/2023 Do you belong to any clubs o r organizations such as confucianism groups, unions, fraternal or athletic groups, or [...] Recorded Patient Health Questionnaire-2 Score 1 09/01/2023 [facility] of Occupat ional [facility] - Occupational Stress Questionnaire Answer Date Recorded [...] place to sleep or slept in a long-term (including now)? No 05/19/2023 Estimated Date of [...] Description 08/04/2024 2:20 PM EDT Routine [facility] [address] [facility] [place] [address] Slava Castro DO [address] [place] [address] Dr [place], [place] [id number] 09/07/2024 1:00 PM EDT Office Visit [facility] [address] [place] [address] Анна Ha NP [address] [place] [address] 12/15/2024 3:00 PM EDT Office Visit [facility] [address] [facility] [place] [address] Slava Castro, [address] [place] [address] Dr [place], [place] [id number] documented as of this encounter Goals Goal Patient Goal Type Associated Problems Recent Progress Patient-Stated? Author Reminders Care Plan OB Reminders No Open Scheduling, Background documented as of this encounter Visit Diagnoses Not on filedocumented in this encounter Additional Health Concerns Active Problems Noted Date Diagnosed Date OB Reminders 02/11/2024 documented as of this encounter Care Teams Supervisor Housecleaner Relationship Specialty Start Date End Date Parag Bradley MD [address] [place] [address] PCP - General Family Medicine 08/14/22 Анна Ha NP [address] [place] [address] PCP - [facility] 08/25/23 documented as of this encounter
--- OUTSIDE RECORDS SUMMARY | 2024-07-23 09:08 | XMS_ITS | Encounter Summary ---
Author Organization [facility] Address [address] [place] [address] Care Team Providers Care Linux Engineer Name Role Phone Parag Bradley MD Primary Care Provider [phone] Анна Ha NP Unavailable [phone] Encounter Details Date Type Department Care Team (Late st Contact Info) Description 02/11/2024 Abstract [facility] [address] [place] [address] Slava Castro, DO [address] [place], [facility]11 Social History Tobacco Use Types Packs/Day Years [...] often do you attend chur ch or congregation services? More than 4 times per year 05/19/2023 Do you belong to any clubs o r organizations such as samaritan groups, unions, fraternal or athletic groups, or [...] Recorded Patient Health Questionnaire-2 Score 1 09/01/2023 [facility] of Occupat ional [facility] - Occupational Stress Questionnaire Answer Date [...] place to sleep or slept in a prison (including now)? No 05/19/2023 Estimated Date of [...] Description 08/04/2024 2:20 PM EDT Routine [facility] [address] [facility] [place] [address] Slava Castro DO [address] [place] [address] Dr [place], [place] [id number] 09/07/2024 1:00 PM EDT Office Visit [facility] [address] [place] [address] Анна Ha NP [address] [place] [address] 12/15/2024 3:00 PM EDT Office Visit [facility] [address] [facility] [place] [address] Slava Castro, [address] [place] [address] Dr [place], [place] [id number] documented as of this encounter Goals Goal Patient Goal Type Associated Problems Recent Progress Patient-Stated? Author Reminders Care Plan OB Reminders No Open Scheduling, Background documented as of this encounter Visit Diagnoses Not on filedocumented in this encounter Additional Health Concerns Active Problems Noted Date Diagnosed Date OB Reminders 02/11/2024 documented as of this encounter Care Teams Linux Engineer Relationship Specialty Start Date End Date Parag Bradley MD [address] [place] [address] PCP - General Family Medicine 08/14/22 Анна Ha NP [address] [place] [address] PCP - [facility] 08/25/23 documented as of this encounter
--- OUTSIDE RECORDS SUMMARY | 2024-07-23 09:09 | XMS_ITS | Clinical Summary ---
Author Organization [facility] Address [address] [place] [address] Care Team Providers Care Muffler Mechanic Name Role Phone Unavailable Primary Care Provider Unavailabl e Social History Tobacco Use Types Packs/Day Years Used Date Smoking Tobacco: Never Assessed Sex and Gender Information Value Date Recorded Sex Assigned at Not on file Gender Identity Not on file Sexual Orientation Not on file Plan of Treatment Not on file
--- OUTSIDE RECORDS SUMMARY | 2024-07-23 09:09 | XMS_ITS | Referral Summary ---
Author Organization [facility] Address [address] [place] [address] Care Team Providers Care Web Operations Lead Name Role Phone Unavailable Primary Care Provider Unavailabl e Social History Tobacco Use Types Packs/Day Years Used Date Smoking Tobacco: Never Assessed Sex and Gender Information Value Date Recorded Sex Assigned at Not on file Gender Identity Not on file Sexual Orientation Not on file Plan of Treatment Not on file
--- OUTSIDE RECORDS SUMMARY | 2024-07-23 09:26 | XMS_ITS | CCD ---
Author Organization [facility] Care Team Providers Care Yarn Mercerizer Operator Helper Name Role Phone AICHHOLZ, IT TEACHER АННА Primary Care Unavailable PAY, DR LIN Admitting Unavailable PAY, DR LIN Attending Unavailable GISELLE RESTREPO Consulting Unavailable GLORIA, DR ORDAZ Admitting Unavailable GLORIA, DR ORDAZ Attending Unavailable AICHHOLZ, IT TEACHER АННА Primary Care Unavailable GLORIA, DR ORDAZ Consulting Unavailable AICHHOLZ, IT TEACHER АННА Admitting Unavailable AICHHOLZ, IT TEACHER АННА Attending Unavailable AICHHOLZ, IT TEACHER АННА Primary Care Unavailable AICHHOLZ, IT TEACHER АННА Consulting Unavailable AICHHOLZ, IT TEACHER АННА Primary Care Unavailable DON, DR BIRD Admitting Unavailable DON, DR BIRD Attending Unavailable GISELLE RESTREPO Consulting Unavailable PHOEBE ALFARO Consulting Unavailable MD Dar Brody Primary Care Provider Orlin Castro Attending Provider Parag Bradley MD Primary Care Provider Aichholange REGISTERED RADIOLOGIC TECHNOLOGIST, Анна Unavailable Orlin Castro DO Attending Provider Orlin Castro Attending Unavailable Orlin Castro Admitting Unavailable Dar Brody Primary Care Unavailable Orlin Castro Attending Unavailable Orlin Castro Admitting Unavailable VIDYA JACKSON Attending Unavailable VIDYA JACKSON Referring Unavailable ORLIN CASTRO Attending Unavailable XIMENA CARVER Attending Unavailable ORLIN CASTRO Referring Unavailable ORLIN CASTRO Attending Unavailable VIDYA JACKSON Attending Unavailable АННА HA Attending Unavailable ORLIN CASTRO Attending Unavailable ORLIN CASTRO Attending Unavailable Allergies Allergy Classification Reported Allergen(s) Allergy Type Date of Onset Reaction(s) Facility (20 sources) Other Propensity to adverse reactions 3 [facility] Medications Current Medications Medication Drug Class(es) Dates Sig (Normalized) Sig (Original) aspirin 81 mg delayed release oral tablet (10 sources) Platelet Aggregation Inhibitor, Nonsteroidal Anti-inflammatory Drug take 1 tablet by mouth once daily aspirin 81 MG EC tablet Take 81 mg by mouth Daily Active levonorgestrel 0.569862 mg/hr intrauterine system (2 sources) Progestin, Progestin-containi [...] PO Twice daily March 05, 2019 12:00am omeprazole 20 mg delayed release oral capsule (9 sources) Proton Pump Inhibitor Start: 05-10-2024 End: 05-10-2025 take 1 capsule by mouth once before mealtime omeprazole (PriLOSEC) [address] capsule Indications: Heartburn during in second trimester Take 1 capsule (20 mg) by mouth in the morning. Take before meals. Do not crush or chew.. 30 capsule 11 05/10/2024 05/10/2025 Active MV-Min-Fe Fum-FA-DHA ( 1 PO) (19 sources) MV-Min- Fe Fum-FA-DHA ( 1 PO) Take 1 each by mouth Daily Active Progesterone 200 MG suppository (18 sources) Start: 01-19-2024 End: 04-18-2024 Progesterone 200 [...] Translations: [Supraventricular tachycardia] Onset: 12-09-2019 05-26-2023 Chronic Diabetes mellitus without complication (2 sources) Abnormal glucose tolerance test; Translations: [Other abnormal glucose] 07-06-2024 Episodic Diabetes or abnormal glucose tolerance complicating ; childbirth; or the puerperium (2 sources) History of gestational diabetes mellitus; Translations: [Personal history of gestational diabetes] 07-21-2024 Episodic Headache; including migraine (2 sources) Migraine 05-16-2017 Chronic Immunizations and screening for infectious disease (3 sources) Encounter for screening for human papillomavirus (HPV); Translations: [Patient encounter status] Onset: 11-10-2021 06-16-2024 Episodic Influenza (1 source) Influenza due to other [...] 09-01-2023 09-01-2023 Chronic Other aftercare (1 source) group home (current) use of hormonal contraceptives; Translations: [SENIOR LIVING HORMONAL CONTRACEPTIVES] Onset: 02-22-2022 Episodic Other aftercare (1 source) Other fci (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 therapy; Translations: [OTH DIET COUNSELOR CURRENT DRUG THERAPY] Onset: 02-22-2022 Episodic Other bone disease and musculoskeletal deformities (2 sources) Costal chondritis; 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 [Tietze]] 03-05-2019 Episodic Other complications of (2 sources) Multigravida of advanced maternal age; Translations: [Supervision of elderly multigravida, unspecified trimester] 06-16-2024 Episodic Other nutritional; endocrine; and metabolic disorders (1 source) Obesity, unspecified; Translations: [OBESITY UNSPECIFIED] Onset: 08-08-2021 Chronic Other nutritional; endocrine; and metabolic disorders (20 sources) Body mass index 30+ - obesity; Translations: [Obesity, unspecified] Onset: 05-26-2023 05-26-2023 Chronic Other and delivery including normal (12 sources) ; Translations: [Encounter for supervision of normal , unspecified, unspecified trimester] 02-11-2024 Episodic Other screening for suspected conditions (not mental disorders or infectious disease) (14 sources) Encounter for screening for malignant neoplasm of cervix; Translations: [Alpha-fetoprotein blood test status] Onset: 11-06-2021 Episodic Residual codes; unclassified (2 sources) Gestation period, 11 weeks; Translations: [11 weeks gestation of ] 03-10-2024 Episodic Residual codes; unclassified (2 sources) Gestation period, 15 weeks; Translations: [15 weeks gestation of ] 04-07-2024 Episodic Residual codes; unclassified (2 sources) Gestation period, 25 weeks; Translations: [25 weeks gestation of ] 06-16-2024 Episodic Residual codes; unclassified (2 sources) Gestation period, 28 weeks; Translations: [28 weeks gestation of ] 07-06-2024 Episodic Residual codes; unclassified (2 sources) Gestation period, 30 weeks; Translations: [30 weeks gestation of ] 07-21-2024 Episodic Screening and history of mental health and substance abuse codes (1 source) Personal history of nicotine dependence; Translations: [PERSONAL HISTORY OF NICOTINE DEPEND] Onset: 02-22-2022 Episodic Short gestation; low weight; and growth retardation (2 sources) Bymgg-bpv-ydscb baby; Translations: [[place] small for gestational age, unspecified weight] 07-06-2024 Episodic Unclassified (2 sources) COUGH, UNSPECIFIED; Translations: [COUGH, UNSPECIFIED] Onset: 02-22-2022 Unclassified (1 source) PERSONAL HISTORY OF COVID-19; Translations: [PERSONAL HISTORY OF COVID-19] Onset: 02-22-2022 Unclassified (1 source) CONTACT W/AND (SUSP) EXPOS COVID-19; Translations: [CONTACT W/AND (SUSP) EXPOS COVID-19] Onset: 02-22-2022 Unclassified (18 sources) OB Reminders Onset: 02-11-2024 02-11-2024 Past or Other Problems Problem Classification Problem Date Documented Da te Episodic/Chronic Inflammation; infection of eye (except that caused [...] Test Name Value Interpretation Reference Range Facility US OB FOLLOW UP TRANSABDOMIN AL APPROACHon 07-06-2024 US OB FOLLOW UP TRANSABDOMINAL APPROACH EXAM: US OB FOLLOW UP TRANSABDOMINAL APPROACH [...] II, MD, PHD at 07-Jul-2024 10:00:26 AM [facility] Normal Not Available Comment on above: Order Comment: US OB SCAN FOR GROWTH Estimated Date of Delivery: 09/24/24 Gestational Age as of 06/16/2024: 25w5d Urinalysis macro (dipstick) panel (U)on 07-06-2024 Bilirubin, UA Negative Negative - 4(70) +++ mg/dL [facility] Blood, UA Negative Negative - 50 Richy/mcL [facility] Clarity, UA Clear [facility] Color, UA Yellow [facility] Glucose, UA Negative Negative - 2000(110) ++++ mg/dL [facility] Interpretation and review of laboratory results Normal [facility] Ketones, UA Negative Negative - 160(16) ++++ mg/dL [facility] Leukocytes, UA Negative Negative - 500+++ Tano/mcL [facility] Nitrite, UA Negative Negative - Positive [facility] pH, UA 7 5 - 9 [facility] Protein, UA Negative Negative - 2000(20) ++++ mg/dL [facility] Spec Grav, UA 1.015 1 - 1.03 [facility] Urobilinogen, UA 0.2 0.2 - 12 mg/dL [facility] ALL CBC WITH AUTO DIFFon BASOPHILS ABSOLUTE AUTO 0 [facility] Basophils/100 WBC (Bld) 0.3 % 0.2 - 2.0 % [facility] Eosinophils/100 WBC (Bld) 0.3 % Low 0.9 - 7.0 % [facility] Erythrocyte distribution width (RBC) [Ratio] 12.9 % 11.0 - 15.0 % [facility] Hematocrit (Bld) [Volume fraction] 35.5 % Low 36.0 - 48.0 % [facility] Hemoglobin (Bld) [Mass/Vol] 11.6 g/dL Low 12.0 - 16.0 g/dL [facility] IMMATURE GRANULOCYTES ABS AUTO 0.03 [facility] Immature granulocytes/100 WBC (Bld) 0.4 % 0.0 - 0.5 % [facility] Interpretation and review of laboratory results Abnormal [facility] LYMPHOCYTES ABSOLUTE AUTO 1.7 [facility] Lymphocytes/100 WBC (Bld) 22.3 % 20.5 - 60.0 % [facility] MCH (RBC) [Entitic mass] 30.7 pg 26.7 - 34.0 pg [facility] MCHC (RBC) [Mass/Vol] 32.7 g/dL 29.9 - 35.2 g/dL [facility] MCV (RBC) [Entitic vol] 93.9 fL 81.0 - 99.0 fL [facility] MONOCYTES ABSOLUTE AUTO 0.4 [facility] Monocytes/100 WBC (Bld) 5.5 % 1.7 - 12.0 % [facility] NEUTROPHILS ABSOLUTE AUTO 5.3 [facility] Neutrophils/100 WBC (Bld) 71.2 % 43.0 - 75.0 % [facility] Platelet mean volume (Bld) [Entitic vol] 9.6 fL 9.5 - 13.5 fL [facility] TBH EO # 0 [facility] PLT [address] [facility] RBC 3.78 Low [facility] TB WBC 7.4 [facility] RECURRENT VAGINITIS (HTRX)on 06-17-2024 ATOPOBIUM VAGINAE 0 [facility] ATOPOBIUM VAGINAE Not detected [facility] BVAB 2,3 (BACTERIAL VAGINOSIS ASSOCIATED BACTERIA 2, 3); MOBILUNCUS SPP 0 [facility] BVAB 2,3 (BACTERIAL VAGINOSIS ASSOCIATED BACTERIA 2, 3); MOBILUNCUS SPP Not detected [facility] RANJANA ALBICANS, PARAPSILOSIS, TROPICALIS 0 [facility] RANJANA ALBICANS, PARAPSILOSIS, TROPICALIS Not detected [facility] RANJANA GLABRATA 0 [facility] RANJANA GLABRATA Not detected [facility] RANJANA KRUSEI 0 [facility] RANJANA KRUSEI Not detected [facility] CHLAMYDIA TRACHOMATIS 0 [facility] CHLAMYDIA TRACHOMATIS Not detected [facility] GARDNERELLA VAGINALIS 0 [facility] GARDNERELLA VAGINALIS Not detected [facility] MEGASPHAERA (TYPES 1, 2) 0 [facility] MEGASPHAERA (TYPES 1, 2) Not detected [facility] MYCOPLASMA GENITALIUM 0 [facility] MYCOPLASMA GENITALIUM Not detected [facility] NEISSERIA GONORRHOEAE 0 [facility] NEISSERIA GONORRHOEAE Not detected [facility] TRICHOMONAS VAGINALIS 0 [facility] TRICHOMONAS VAGINALIS Not detected [facility] Urinalysis macro (dipstick) panel (U)on 06-16-2024 Bilirubin, UA Negative Negative - 4(70) +++ mg/dL [facility] Blood, UA Negative Negative - 50 Richy/mcL [facility] Clarity, UA Clear [facility] Color, UA Yellow [facility] Glucose, UA Negative Negative - 2000(110) ++++ mg/dL [facility] Interpretation and review of laboratory results Normal [facility] Ketones, UA Negative Negative - 160(16) ++++ mg/dL [facility] Leukocytes, UA Negative Negative - 500+++ Tano/mcL [facility] Nitrite, UA Negative Negative - Positive [facility] pH, UA 6 5 - 9 [facility] Protein, UA Negative Negative - 2000(20) ++++ mg/dL [facility] Spec Grav, UA 1.01 1 - 1.03 [facility] Urobilinogen, UA 0.2 0.2 - 12 mg/dL [facility] US OB 14+ WEEKS ANATOMY SCAN on 05-10-2024 US OB 14+ WEEKS ANATOMY SCAN EXAM: US OB 14+ WEEKS ANATOMY SCAN [...] II, MD, PHD at 11-May-2024 12:36:27 AM [facility] Normal Not Available Comment on above: Order Comment: US OB ANATOMY SINGLE W US OB CERVICAL LENGTH Estimated Date of Delivery: 09/24/24 Gestational Age as of 04/07/2024: 15w5d GLUCOSE 1 HOURon 04-10-2024 Glucose [Mass/Vol] 124 mg/dL NINF - 13 0 mg/dL [facility] Urinalysis macro (dipstick) panel (U)on 04-07-2024 Bilirubin, UA Negative Negative - 4(70) +++ mg/dL [facility] Blood, UA Positive Negative - 50 Richy/mcL [facility] Comment on above: trace Clarity, UA Clear [facility] Color, UA Yellow [facility] Glucose, UA Negative Negative - 1999(110) ++++ mg/dL [facility] Interpretation and review of laboratory results Abnormal [facility] Ketones, UA Positive Negative - 160(16) ++++ mg/dL [facility] Comment on above: 15 Leukocytes, UA Negative Negative - 500+++ Tano/mcL [facility] Nitrite, UA Negative Negative - Positive [facility] pH, UA 7 5 - 9 [facility] Protein, UA Negative Negative - 1999(20) ++++ mg/dL [facility] Spec Grav, UA 1.02 1 - 1.03 [facility] Urobilinogen, UA 1.0 0.2 - 12 mg/dL [facility] Urinalysis macro (dipstick) panel (U)on 03-10-2024 Bilirubin, UA Negative Negative - 4(70) +++ mg/dL [facility] Blood, UA Positive Negative - 50 Richy/mcL [facility] Comment on above: trace-intact Clarity, UA Clear [facility] Color, UA Yellow [facility] Glucose, UA Negative Negative - 1999(110) ++++ mg/dL [facility] Interpretation and review of laboratory results Abnormal [facility] Ketones, UA Negative Negative - 160(16) ++++ mg/dL [facility] Leukocytes, UA Negative Negative - 500+++ Tano/mcL [facility] Nitrite, UA Negative Negative - Positive [facility] pH, UA 6.5 5 - 9 [facility] Protein, UA Negative Negative - 1999(20) ++++ mg/dL [facility] Spec Grav, UA 1.01 1 - 1.03 [facility] Urobilinogen, UA 0.2 0.2 - 12 mg/dL [facility] BOX TESTon 02-27-2024 BOX TEST SENT OUT [facility] BOX1 [facility] BOX2 02/27/24 [facility] BOX [facility] Urine Cultureon 02-27-2024 Bacteria identified Cx Nom (U) No Growth 2 Days PERFORMED BY: [address] [id number] PATHOLOGIST BRAZE OPERATOR SHEREE MCCARTHY M.D. Normal [facility] Comment on above: Performed By: #### C UU #### [facility] [address] [id number] [facility] HCG ( test) Ql (U)o n 02-11-2024 Interpretation and review of laboratory results Abnormal [facility] Preg Test, Ur Positive Negative [facility] Urinalysis macro (dipstick) panel (U)on 02-11-2024 Bilirubin, UA Positive Negative - 4(70) +++ mg/dL [facility] Comment on above: small Blood, UA Positive Negative - 50 Richy/mcL [facility] Comment on above: trace-lysed Clarity, UA Clear [facility] Color, UA Yellow [facility] Glucose, UA Negative Negative - 2000(110) ++++ mg/dL [facility] Interpretation and review of laboratory results Abnormal [facility] Ketones, UA Positive Negative - 160(16) ++++ mg/dL [facility] Comment on above: trace Leukocytes, UA Trace Negative - 500+++ Tano/mcL [facility] Nitrite, UA Negative Negative - Positive [facility] pH, UA 6 5 - 9 [facility] Protein, UA Positive Negative - 2000(20) ++++ mg/dL [facility] Comment on above: 100 Spec Grav, UA 1.03 1 - 1.03 [facility] Urobilinogen, UA 0.2 0.2 - 12 mg/dL [facility] TB PREG QUANT HCGon 024 HCG QUANTITATIVE 25471 mIU/mL [facility] Comment on above: 5-50 0.2-1 WEEK 50-500 1-2 WEEKS 100-5,000 2-3 WEEKS 500-10,000 3-4 WEEKS 1,000-50,000 4-5 WEEKS 10,000-100,000 5-6 WEEKS 15,000-200,000 6-8 WEEKS 10,000-100,000 2-3 MONTHS [facility] PREG QUANT HCGon 024 HCG QUANTITATIVE 74225 mIU/mL [facility] Comment on above: 5-50 0.2-1 WEEK 50-500 1-2 WEEKS 100-5,000 2-3 WEEKS 500-10,000 3-4 WEEKS 1,000-50,000 4-5 WEEKS 10,000-100,000 5-6 WEEKS 15,000-200,000 6-8 WEEKS 10,000-100,000 2-3 MONTHS [facility] PREG QUANT HCGon 024 HCG QUANTITATIVE 70001 mIU/mL [facility] Comment on above: 5-50 0.2-1 WEEK 50-500 1-2 WEEKS 100-5,000 2-3 WEEKS 500-10,000 3-4 WEEKS 1,000-50,000 4-5 WEEKS 10,000-100,000 5-6 WEEKS 15,000-200,000 6-8 WEEKS 10,000-100,000 2-3 MONTHS [facility] PREG QUANT HCGon 024 HCG QUANTITATIVE 58167 mIU/mL [facility] Comment on above: 5-50 0.2-1 WEEK 50-500 1-2 WEEKS 100-5,000 2-3 WEEKS 500-10,000 3-4 WEEKS 1,000-50,000 4-5 WEEKS 10,000-100,000 5-6 WEEKS 15,000-200,000 6-8 WEEKS 10,000-100,000 2-3 MONTHS [facility] PREG QUANT HCGon 024 HCG QUANTITATIVE 8911 mIU/mL [facility] Comment on above: 5-50 0.2-1 WEEK 50-500 1-2 WEEKS 100-5,000 2-3 WEEKS 500-10,000 3-4 WEEKS 1,000-50,000 4-5 WEEKS 10,000-100,000 5-6 WEEKS 15,000-200,000 6-8 WEEKS 10,000-100,000 2-3 MONTHS [facility] PREG QUANT HCGon 024 HCG QUANTITATIVE 4641 mIU/mL [facility] Comment on above: 5-50 0.2-1 WEEK 50-500 1-2 WEEKS 100-5,000 2-3 WEEKS 500-10,000 3-4 WEEKS 1,000-50,000 4-5 WEEKS 10,000-100,000 5-6 WEEKS 15,000-200,000 6-8 WEEKS 10,000-100,000 2-3 MONTHS [facility] PREG QUANT HCGon 024 HCG QUANTITATIVE 2241 mIU/mL [facility] Comment on above: 5-50 0.2-1 WEEK 50-500 1-2 WEEKS 100-5,000 2-3 WEEKS 500-10,000 3-4 WEEKS 1,000-50,000 4-5 WEEKS 10,000-100,000 5-6 WEEKS 15,000-200,000 6-8 WEEKS 10,000-100,000 2-3 MONTHS [facility] TBH PREG QUANT HCGon 01-18- 024 HCG QUANTITATIVE 884 mIU/mL [facility] Comment on above: 5-50 0.2-1 WEEK 50-500 1-2 WEEKS 100-5,000 2-3 WEEKS 500-10,000 3-4 WEEKS 1,000-50,000 4-5 WEEKS 10,000-100,000 5-6 WEEKS 15,000-200,000 6-8 WEEKS 10,000-100,000 2-3 MONTHS [facility] IGP,APTIMA HPV,AGE GDLNon AGE GDLN ACOG TESTING Note . [facility] Comment on above: TESTS RESULT FLAG UN ITS REF RANGE LAB Clinician Provided Cytology Information Source.............Cervix;Endocervix No. of containers..01 ThinPrep Vial Age Algo ACOG Sylvia... 30-65 01 FLAG LEGEND: L-Low Normal,H-High Normal,LL-Alert Low,HH-Alert High <-Panic Low,>-Panic High,A-Abnormal,AA-Critical Abnormal Performed at: 01 =G [address] [place] [address] Amber Tilley MD, HPV APTIMA Negative Negative [facility] Comment on above: This nucleic acid am plification test detects fourteen high- risk HPV types (16,18,31,33,35,39,45,51,52,56,58,59,66,68) without differentiation. Performed at: =G - [facility] [address] [place], [place] [id number] Grain Distributor: Amber Tilley MD, Phone: [phone] Performed at: - [facility] [place] [address] [facility] [facility] [place] [id number] Grain Distributor: Amber Tilley MD, Phone: [phone] IGP, APTIMA HPV, RFX 16/18,45 Note . [facility] Comment on above: TESTS RESULT FLAG UN ITS REF RANGE LAB DIAGNOSIS: 02 NEGATIVE FOR INTRAEPITHELIAL LESION OR MALIGNANCY. REACTIVE CELLULAR CHANGES AND/OR REPAIR ARE PRESENT. Specimen adequacy: 02 Satisfactory for evaluation. Endocervical and/or squamous metaplastic cells (endocervical component) are present. Performed by: Remedios Gandhi, Fence Maker (ASCP) Electronically si... 02 Divya Hoffman MD, [...] <-Panic Low,>-Panic High,A-Abnormal,AA-Critical Abnormal Performed at: [address] [address] Amber Tilley MD, BRUSH-SPATULA CERVIX ENDOCERVIX [facility] Cytology Cervical or vaginal smear or scraping studyon 12-10-2023 [facility] HCG ( test) Ql (U)o n 12-10-2023 Interpretation and review of laboratory results Normal [facility] Preg Test, Ur Negative [facility] [place] 06-30-2023 L Specimen: [id number] Received: 07/01/23 Status: WEN [place] Num: [id number] Spec Type: Surgical Subm Dr: Orlin Castro Tissues: A Products of Conception - Spontaneous or Missed (POC) Procedures: HE/3, Gross/Micro L4 Age/ Patient Sex Location Account Attending Physician Shreya Marshall 32/F [facility] [id number] Orlin Castro SPEC NUM: [id number] RECD: 07/01/23 [facility] NUM: [id number] EVEERTT: 06/30/[address]: Orlin Castro ENTERED: 07/01/[address] [facility] DR: Rosey,Lab SPEC TYPE: Surgical DEPT: JENIFER [...] spongy harman tissue consistent with villous tissue. Surveillance Sensor Officer sections are submitted in A1?A3 to include the villous tissue in A1. Clinical history: Missed TW ---- Specimen: [id number] Received: 07/01/23 Status: WEN [place] Num: [id number] Spec Type: Surgical Subm Dr: Orlin Castro Tissues: A Products of Conception - Spontaneous or Missed (POC) Procedures: HE/3, Gross/Micro L4 ---- Patient: Shreya Marshall [id number] (Continued) ---- Specimen: [id number] Received: 07/01/23 (Continued) Signed (signature on file) Shen Virgen MD 07/02/23 1859 ---- Specimen: [id number] Received: 07/01/23 Status: WEN [place] Num: [id number] Spec Type: Surgical Subm Dr: Orlin Castro Tissues: A Products of Conception - Spontaneous or Missed (POC) Procedures: , Gross/Maksim L4 ---- Patient: Shreya Marshall [id number] (Continued) ---- Specimen: [id number] Received: 07/01/23 (Continued) CPT Codes 75345 ---- ---- Specimen: [id number] Received: 07/01/23-1305 Status: WEN [place] Num: [id number] Spec Type: Surgical Subm Dr: Orlin Castro Tissues: A Products of Conception - Spontaneous or Missed (POC) Procedures: HE/3, Gross/Micro L4 ---- Patient: Shreya Marshall [id number] (Continued) ---- Signed (signature on file) Shen Virgen MD 07/02/231858 Normal [facility] Covid-19 PCR (CVDTB)on 01-25 SARS-CoV-2 (COVID-19) RNA JUAN+probe Ql (Unsp spec) Not detected Normal NOT DETECTED [facility] Comment on above: Result Comment: This test is not yet approved or cleared by the [place] FDA. When there are no FDA-approved or cleared tests available, and other criteria are met, FDA can make tests available under an emergency access mechanism called an Emergency Use Authorization (EUA). The EUA for this test is supported by the Hi Low Truck Driver of Health and Human Service's (HHS's) declaration [...] Performed By: #### C VDTB #### [facility] [address] [place] [address] Dr. Luis Virgen INFLUENZA A AND B [facility] 02[facility] BELOW Normal [facility] Comment on above: Result Comment: Nega tive for Flu B protein antigen. Infection due to Flu B cannot be ruled out. Flu B antigen in the sample may be below the detection limit of the test. Performed By: #### I NFLUAB #### [facility] [address] [place] [address] Dr. Luis Virgen INFLUENZA A AG Positive Abnormal NEGATIVE SEE COMMENT [facility] Comment on above: Performed By: #### I NFLUAB #### [facility] [address] [place] [address] Dr. Luis Virgen INFLUENZA B AG Negative Normal NEGATIVE SEE COMMENT [facility] Comment on above: Performed By: #### I NFLUAB #### [facility] [address] [place] [address] Dr. Luis Virgen XR CHEST 1 Von 02-20-2022 XR CHEST 1 V EXAM: CHEST 1 VIEW HISTORY: COUGH TECHNIQUE: Chest, one view. COMPARISON: None. FINDINGS: Lungs are clear. No focal consolidation, pleural effusion, or pneumothorax. Pulmonary vasculature is within normal limits. Cardiomediastinal silhouette is normal. IMPRESSION: 1. No acute cardiopulmonary disease. Electronically authenticated by: PHOEBE ALFARO Date: 2022-02-20 17:46 Normal [facility] PAP ACOG PANEL 2: 30 to 65on 11-13-2021 . . Normal [facility] [facility] [place] Comment on above: Result Comment: Perf ormed at: WB Performed By: #### [id number] #### [facility] [address] [address] [address] Luis Virgen Age Gdln ACOG Testing 30-65 [facility] Comment on above: Performed By: #### [id number] #### [facility] [address] [address] [address] Luis Virgen DIAGNOSIS: Comment Normal [facility] [place] Comment on above: Result Comment: NEGA TIVE FOR INTRAEPITHELIAL LESION OR MALIGNANCY. Performed at: WB Performed By: #### [id number] #### [facility] [address] [address] [address] Luis Virgen HPV Aptima Negative Normal Negative [facility] [place] Comment on above: Result Comment: This nucleic acid amplification test detects fourteen high-risk HPV types (16,18,31,33,35,39,45,51,52,56,58,59,66,68) without differentiation. Performed at: =G Performed By: #### [id number] #### [facility] [address] [address] [address] Luis Virgen Methodology: Comment [facility] Comment on above: Result Comment: This liquid based ThinPrep(R) pap test was screened with the use of an image guided system. Performed at: WB Performed By: #### [id number] #### [facility] [address] [address] [address] Luis Virgen Note: Comment [facility] Comment on above: Result Comment: The Pap smear is a screening test designed to aid in the detection of premalignant and malignant conditions of the uterine cervix. It is not a diagnostic procedure and should not be used as the sole means of detecting cervical cancer. Both false-positive and false-negative reports do occur. . Performed at: WB Performed By: #### [id number] #### [facility] [address] [address] [address] Luis Virgen Performed by: Comment Normal [facility] Comment on above: Result Comment: Maureen Del Cid, Fence Maker (ASCP) Performed at: WB Performed By: #### [id number] #### [facility] [address] [place] [address] Dr. Luis Virgen Specimen adequacy: Comment Normal [facility] Comment on above: Result Comment: Sati sfactory for evaluation. Endocervical and/or squamous metaplastic cells (endocervical component) are present. Performed at: WB Performed By: #### [id number] #### [facility] [address] [place] [address] Dr. Luis Virgen URon 08-20-2021 , QUAL Negative Normal NEGATIVE [facility] Comment on above: Performed By: #### P REGU #### [facility] [address] [place] [address] Dr. Luis Virgen CBC AUTO DIFFon 08-06-2021 BASO # 0.0 103/ul Normal 0.0-0.1 [facility] [place] Comment on above: Performed By: #### C BC #### [facility] [address] [place] [address] Dr. Luis Virgen Basophils/100 WBC (Bld) 0.3 % Normal 0.2-2.0 [facility] [place] Comment on above: Performed By: #### C BC #### [facility] [address] [place] [address] Dr. Luis Virgen EO # 0.0 103/ul Normal 0.0-0.7 [facility] [place] Comment on above: Performed By: #### C BC #### [facility] [address] [place] [address] Dr. Luis Virgen Eosinophils/100 WBC (Bld) 0.3 % Critically low 0.9-7.0 [facility] [place] Comment on above: Performed By: #### C BC #### [facility] [address] [place] [address] Dr. Luis Virgen Erythrocyte distribution width (RBC) [Ratio] 12.6 % Normal 11.0-15.0 [facility] [place] Comment on above: Performed By: #### C BC #### [facility] [address] [place] [address] Dr. Luis Virgen Hematocrit (Bld) [Volume fraction] 41.5 % Normal 36.0-48.0 [facility] [place] Comment on above: Performed By: #### C BC #### [facility] [address] [place] [address] Dr. Luis Virgen Hemoglobin (Bld) [Mass/Vol] 13.5 g/dL Normal 12.0-16.0 [facility] [place] Comment on above: Performed By: #### C BC #### [facility] [address] [place] [address] Dr. Luis Virgen IG # 0.03 10e3/ul Normal 0.00-0.03 [facility] [place] Comment on above: Performed By: #### C BC #### [facility] [address] [place] [address] Dr. Luis Virgen IG % 0.4 % Normal 0.0-0.5 [facility] [place] Comment on above: Performed By: #### C BC #### [facility] [address] [place] [address] Dr. Luis Virgen LYMPH # 2.4 103/ul Normal 1.2-3.8 [facility] [place] Comment on above: Performed By: #### C BC #### [facility] [address] [place] [address] Dr. Luis Virgen Lymphocytes/100 WBC (Bld) 31.8 % Normal 20.5-60.0 [facility] [place] Comment on above: Performed By: #### C BC #### [facility] [address] [place] [address] Dr. Luis Virgen MANUAL DIFF REQ NO Normal [facility] Comment on above: Performed By: #### C BC #### [facility] [address] [place] [address] Dr. Luis Virgen MCH (RBC) [Entitic mass] 30.5 pg Normal 26.7-34.0 [facility] [place] Comment on above: Performed By: #### C BC #### [facility] [address] [place] [address] Dr. Luis Virgen MCHC (RBC) [Mass/Vol] 32.5 g/dL Normal 29.9-35.2 [facility] Comment on above: Performed By: #### C BC #### [facility] [address] [place] [address] Dr. Luis Virgen MCV (RBC) [Entitic vol] 93.9 fL Normal 81.0-99.0 [facility] Comment on above: Performed By: #### C BC #### [facility] [address] [place] [address] Dr. Luis Virgen MONO # 0.6 103/ul Normal 0.3-0.8 [facility] Comment on above: Performed By: #### C BC #### [facility] [address] [place] [address] Dr. Luis Virgen Monocytes/100 WBC (Bld) 7.4 % Normal 1.7-12.0 [facility] Comment on above: Performed By: #### C BC #### [facility] [address] [place] [address] Dr. Luis Virgen NEUT # 4.5 103/ul Normal 1.4-6.5 [facility] Comment on above: Performed By: #### C BC #### [facility] [address] [place] [address] Dr. Luis Virgen Neutrophils/100 WBC (Bld) 59.8 % Normal 43.0-75.0 [facility] Comment on above: Performed By: #### C BC #### [facility] [address] [place] [address] Dr. Luis Virgen Platelet mean volume (Bld) [Entitic vol] 10.0 fL Normal 9.5-13.5 [facility] Comment on above: Performed By: #### C BC #### [facility] [address] [place] [address] Dr. Luis Virgen PLT 337 103/ul Normal 150-450 [facility] Comment on above: Performed By: #### C BC #### [facility] [address] [place] [address] Dr. Luis Virgen RBC 4.42 106/ul Normal 4.20-5.40 [facility] [place] Comment on above: Performed By: #### C BC #### [facility] [address] [place] [address] Dr. Luis Virgen WBC 7.6 103/ul Normal 4.0-11.0 [facility] [place] Comment on above: Performed By: #### C BC #### [facility] [address] [place] [address] Dr. Luis Virgen FREE T4on 08-06-2021 Free T4 [Mass/Vol] 0.91 ng/dL Normal 0.76-1.46 [facility] Comment on above: Performed By: #### F T4 #### [facility] [address] [place] [address] Dr. Luis Virgen LIPID PROFILEon 08-06-2021 CHOL-HDL RATIO NORM SEE BELOW Normal [facility] Comment on above: Result Comment: 3.3 - 4.4 LOW RISK 4.4 - 7.1 AVERAGE RISK 7.1 - 11.0 MODERATE RISK >11.0 HIGH RISK Performed By: #### C MP, TSH, LIPID #### [facility] [address] [place] [address] Dr. Luis Virgen Cholesterol [Mass/Vol] 154 mg/dL Normal <=200 [facility] [place] Comment on above: Performed By: #### C MP, TSH, LIPID #### [facility] [address] [place] [address] Dr. Luis Virgen Cholesterol in HDL [Mass/Vol] 35 mg/dL Critically low 40-60 [facility] [place] Comment on above: Performed By: #### C MP, TSH, LIPID #### [facility] [address] [place] [address] Dr. Luis Virgen Cholesterol in LDL [Mass/Vol] 80.8 mg/dL Normal [facility] [place] Comment on above: Performed By: #### C MP, TSH, LIPID #### [facility] [address] [place] [address] Dr. Luis Virgen Cholesterol.total/C holesterol in HDL [Mass ratio] 4.4 {ratio} Normal [facility] [place] Comment on above: Performed By: #### C MP, TSH, LIPID #### [facility] [address] [address] [address] Luis Virgen HDL NORMAL > or = 60 mg/dl - LO W CARDIOVASCULAR RISK <40 mg/dl - HIGH CARDIOVASCULAR RISK Normal [facility] [place] Comment on above: Performed By: #### C MP, TSH, LIPID #### [facility] [address] [address] [address] Luis Virgen LDL CALC NORMAL SEE BELOW Normal [facility] Comment on above: Result Comment: <100 mg/dl OPTIMAL 100 - 129 mg/dl NEAR OR ABOVE OPTIMAL 130 - 159 mg/dl BORDERLINE HIGH 160 - 189 mg/dl HIGH >190 mg/dl VERY HIGH Performed By: #### C MP, TSH, LIPID #### [facility] [address] [address] [address] Luis Virgen Triglyceride [Mass/Vol] 191 mg/dL Critically high <=150 [facility] [place] Comment on above: Performed By: #### C MP, TSH, LIPID #### [facility] [address] [address] [address] Luis Virgen VLDL CALC 38.2 mg/dL Normal [facility] [place] Comment on above: Performed By: #### C MP, TSH, LIPID #### [facility] [address] [address] [address] Luis Virgen PROF 14(COMP METB)on 022 Albumin [Mass/Vol] 4.1 g/dL Normal 3.4-5.0 [facility] Comment on above: Performed By: #### C MP, TSH, LIPID #### [facility] [address] [address] [address] Luis Virgen Albumin/Globulin [Mass ratio] 1.2 {ratio} Normal [facility] [place] Comment on above: Performed By: #### C MP, TSH, LIPID #### [facility] [address] [address] [address] Luis Virgen ALP [Catalytic activity/Vol] 73 U/L Normal 46-116 [facility] [place] Comment on above: Performed By: #### C MP, TSH, LIPID #### [facility] [address] [address] [address] Luis Virgen ALT [Catalytic activity/Vol] 24 U/L Normal 14-59 [facility] [place] Comment on above: Performed By: #### C MP, TSH, LIPID #### [facility] [address] [address] [address] Luis Virgen Anion gap [Moles/Vol] 13.2 mmol/L Normal [facility] [place] Comment on above: Performed By: #### C MP, TSH, LIPID #### [facility] [address] [address] [address] Luis Virgen AST [Catalytic activity/Vol] 11 U/L Critically low 15-37 [facility] [place] Comment on above: Performed By: #### C MP, TSH, LIPID #### [facility] [address] [address] [address] Luis Virgen Bilirubin [Mass/Vol] 0.8 mg/dL Normal 0.2-1.0 [facility] [place] Comment on above: Performed By: #### C MP, TSH, LIPID #### [facility] [address] [address] [address] Luis Virgen Calcium [Mass/Vol] 8.9 mg/dL Normal 8.5-10.1 [facility] Comment on above: Performed By: #### C MP, TSH, LIPID #### [facility] [address] [address] [address] Luis Virgen Chloride [Moles/Vol] 103 mmol/L Normal 98-107 [facility] [place] Comment on above: Performed By: #### C MP, TSH, LIPID #### [facility] [address] [address] [address] Luis Virgen CO2 [Moles/Vol] 27.5 mmol/L Normal 21.0-32.0 [facility] Comment on above: Performed By: #### C MP, TSH, LIPID #### [facility] [address] [address] [address] Luis Virgen Creatinine [Mass/Vol] 0.71 mg/dL Normal 0.55-1.02 [facility] [place] Comment on above: Performed By: #### C MP, TSH, LIPID #### [facility] [address] [place] [address] Dr. Luis Virgen EGFR-AF VENEZUELAN >60 Normal >=60 [facility] Comment on above: Performed By: #### C MP, TSH, LIPID #### [facility] [address] [address] [address] Luis Virgen EGFR-NON AF VENEZUELAN >60 Normal >=60 [facility] [place] Comment on above: Performed By: #### C MP, TSH, LIPID #### [facility] [address] [address] [address] Luis Virgen Globulin (S) [Mass/Vol] 3.5 g/dL Normal [facility] [place] Comment on above: Performed By: #### C MP, TSH, LIPID #### [facility] [address] [place] [address] Dr. Luis Virgen Glucose [Mass/Vol] 101 mg/dL Normal 74-106 [facility] Comment on above: Performed By: #### C MP, TSH, LIPID #### [facility] [address] [address] [address] Luis Virgen Potassium [Moles/Vol] 4.7 mmol/L Normal 3.5-5.1 [facility] [place] Comment on above: Performed By: #### C MP, TSH, LIPID #### [facility] [address] [place] [address] Dr. Luis Virgen Protein [Mass/Vol] 7.6 g/dL Normal 6.4-8.2 [facility] Comment on above: Performed By: #### C MP, TSH, LIPID #### [facility] [address] [place] [address] Dr. Luis Virgen Sodium [Moles/Vol] 139 mmol/L Normal 136-145 [facility] Comment on above: Performed By: #### C MP, TSH, LIPID #### [facility] [address] [place] [address] Dr. Luis Virgen Urea nitrogen [Mass/Vol] 9.0 mg/dL Normal 7.0-18.0 [facility] [place] Comment on above: Performed By: #### C MP, TSH, LIPID #### [facility] [address] [address] [address] Luis Virgen Urea nitrogen/Creatinine [Mass ratio] 12.7 mg/mg Normal [facility] [place] Comment on above: Performed By: #### C MP, TSH, LIPID #### [facility] [address] [address] [address] Luis Virgen TSHon 08-06-2021 TSH 0.924 uIU/mL Normal 0.358-3.740 [facility] Comment on above: Performed By: #### C MP, TSH, LIPID #### [facility] [address] [address] [address] Luis Virgen TSH RANGE SEE BELOW Normal [facility] [place] Comment on above: Result Comment: <0.3 4 UIU/ml HYPERTHYROID 0.34-5.60 UIU/ml EUTHYROID >5.60 UIU/ml HYPOTHYROID Performed By: #### C MP, TSH, LIPID #### [facility] [address] [address] [address] Luis Virgen Vital Signs Date Time Vital Sign Value Performing Clinician Quinn elizondo 07-21-2024 14:30-0400 Body mass index (BMI) [Ratio] 33.14 kg/m2 Vidya DESAI Work Phone: [facility] 07-21-2024 14:30-040 Body weight 79.56 kg Vidya DESAI Work Phone: [facility] 07-21-2024 14:30-0400 Diastolic blood pressure 74 mm[Hg] Vidya DESAI Work Phone: [facility] 07-21-2024 14:30-0400 Systolic blood pressure 110 mm[Hg] Vidya DESAI Work Phone: [facility] 07-06-2024 14:09-0400 Body mass index (BMI) [Ratio] 32.69 kg/m2 Orlin Castro DO Work Phone: [facility] 07-06-2024 14:09-0400 Body weight 78.47 kg Orlin Gloria DO Work Phone: [facility] 07-06-2024 14:09-0400 Diastolic blood pressure 72 mm[Hg] Orlin Gloria DO Work Phone: [facility] 07-06-2024 14:09-0400 Systolic blood pressure 118 mm[Hg] Orlin Gloria DO Work Phone: [facility] 06-16-2024 14:05-0400 Body mass index (BMI) [Ratio] 32.12 kg/m2 Ximena Carver REGISTERED RADIOLOGIC TECHNOLOGIST Work Phone: [facility] 06-16-2024 14:05-0400 Body weight 77.11 kg Ximena Carver REGISTERED RADIOLOGIC TECHNOLOGIST Work Phone: [facility] 06-16-2024 14:05-0400 Diastolic blood pressure 70 mm[Hg] Ximena Carver REGISTERED RADIOLOGIC TECHNOLOGIST Work Phone: [facility] 06-16-2024 14:05-0400 Systolic blood pressure 114 mm[Hg] Ximena Emhul REGISTERED RADIOLOGIC TECHNOLOGIST Work Phone: [facility] 04-07-2024 15:02-0500 Body mass index (BMI) [Ratio] 30.8 kg/m2 Vidya Jackson PA Work Phone: [facility] 04-07-2024 15:02-0500 Body weight 73.94 kg Vidya Jackson PA Work Phone: [facility] 04-07-2024 15:02-0500 Diastolic blood pressure 62 mm[Hg] Vidya Renetta PA Work Phone: [facility] 04-07-2024 15:02-0500 Systolic blood pressure 116 mm[Hg] Vidya Renetta PA Work Phone: [facility] 03-10-2024 14:45-0500 Body mass index (BMI) [Ratio] 30.63 kg/m2 Orlin Gloria DO Work Phone: [facility] 03-10-2024 14:45-0500 Body weight 73.54 kg Orlin Gloria DO Work Phone: [facility] 03-10-2024 14:45-0500 Diastolic blood pressure 66 mm[Hg] Orlin Gloria DO Work Phone: [facility] 03-10-2024 14:45-0500 Systolic blood pressure 110 mm[Hg] Orlin Gloria DO Work Phone: [facility] 02-11-2024 10:34-0500 Body mass index (BMI) [Ratio] 30.69 kg/m2 [facility] Nurse [facility] 02-11-2024 10:34-0500 Body weight 73.66 kg [facility] Nurse [facility] 02-11-2024 10:34-0500 Diastolic blood pressure 77 mm[Hg] [facility] Nurse [facility] 02-11-2024 10:34-0500 Systolic blood pressure 110 mm[Hg] [facility] Nurse [facility] 12-10-2023 13:12-0400 Body mass index (BMI) [Ratio] 30.76 kg/m2 Orlin Gloria DO Work Phone: [facility] 12-10-2023 13:12-0400 Body weight 73.85 kg Orlin Gloria DO Work Phone: [facility] 12-10-2023 13:12-0400 Diastolic blood pressure 78 mm[Hg] Orlin Gloria DO Work Phone: [facility] 12-10-2023 13:12-0400 Systolic blood pressure 116 mm[Hg] Orlin Gloria DO Work Phone: [facility] Healthcare Encounters Encounter Date Encounter Type Care Provider Facility Start: 07-21-2024 End: 07-21-2024 Office outpatient visit 15 minutes Vidya DESAI Work Phone: [facility] Comment on above: Third trimester preg eileen; 30 weeks gestation of ; History of gestational diabetes Start: 07-06-2024 End: 07-06-2024 Office outpatient visit 15 minutes Orlin Gloria DO Work Phone: [facility] Comment on above: Third trimester preg eileen; 28 weeks gestation of ; Elevated glucose tolerance test; Diabetes mellitus screening; SGA (small for gestational age) Start: 07-06-2024 End: 07-06-2024 ambulatory ORLIN GLORIA Not Available Start: 07-05-2024 End: 07-05-2024 Clinisync Result Encounter Generic External Data Provider [facility] External Department Unsolicited Start: 07-05-2024 End: 07-05-2024 Clinisync Result Encounter Generic External Data Provider [facility] External Department Unsolicited Start: 06-16-2024 End: 06-16-2024 Bamboo flowsheet Ximena Carver NP Work Phone: [facility] Start: 06-16-2024 End: 06-17-2024 Bamboo flowsheet Ximena Carver REGISTERED RADIOLOGIC TECHNOLOGIST Work Phone: [facility] Start: 06-16-2024 End: 06-17-2024 External Result Encounter Orlin Gloria DO Work Phone: [facility] External Department Unsolicited Start: 06-16-2024 End: 06-16-2024 Office outpatient visit 15 minutes Ximena Carver NP Work Phone: [facility] Comment on above: Second trimester pre gnancy; 25 weeks gestation of ; Screen for STD (sexually transmitted disease); Diabetes mellitus screening; Antepartum multigravida of advanced maternal age Start: 06-16-2024 End: 06-16-2024 ambulatory XIMENA CARVER Not Available Start: 05-10-2024 End: 05-10-2024 ambulatory ORLIN GLORIA Not Available Start: 05-10-2024 End: 05-10-2024 ambulatory VIDYA JACKSON Not Available Start: 04-10-2024 End: 04-10-2024 Clinisync Result Encounter Generic External Data Provider [facility] External Department Unsolicited Start: 04-10-2024 End: 04-10-2024 Clinisync Result Encounter Generic External Data Provider [facility] External Department Unsolicited Start: 04-07-2024 End: 04-07-2024 Office outpatient visit 15 minutes Vidya DESAI Work Phone: [facility] Comment on above: Need for [...] flow sheet Orlin Gloria DO Work Phone: [facility] Comment on above: 11 weeks gestation o f ; First trimester Start: 03-10-2024 End: 03-10-2024 Bamboo flowsheet Orlin Gloria DO Work Phone: [facility] Start: 03-10-2024 End: 03-10-2024 Bamboo flowsheet Orlin Gloria DO Work Phone: [facility] Start: 02-27-2024 End: 02-27-2024 ambulatory Orlin Gloria [facility] Work Phone: Start: 02-27-2024 End: 02-27-2024 Departed Referred Orlin Gloria DO Work Phone: [facility] Start: 02-27-2024 End: 02-27-2024 Clinisync Result Encounter Generic External Data Provider [facility] External Department Unsolicited Start: 02-27-2024 End: 02-27-2024 Clinisync Result Encounter Generic External Data Provider [facility] External Department Unsolicited Start: 02-25-2024 End: 02-26-2024 Refill Анна Ha NP Work Phone: [facility] Comment on above: Primary insomnia Start: 02-11-2024 End: 02-11-2024 ambulatory VIDYA RENETTA Not Available Start: 02-11-2024 End: 02-11-2024 Office [...] encounter procedure Orlin Gloria DO Work Phone: [facility] Healthcare Work Phone: Start: 12-10-2023 End: 12-10-2023 [...] 06-30-2023 ambulatory MD Dar Brody Work Phone: [facility] Work Phone: Start: 06-30-2023 End: 06-30-2023 Departed Referred MD Dar Brody Work Phone: [facility] Start: 02-20-2022 End: 02-20-2022 ambulatory IT TEACHER АННА AICKennethUSAMA Facility:[facility] Start: 11-06-2021 End: 11-06-[address] ORLIN CASTRO Facility:[facility] Start: 08-20-2021 End: 08-20-2021 ambulatory IT TEACHER АННА MCINTYREUSAMA Facility:[facility] Start: 08-06-2021 End: 08-07-2021 ambulatory IT TEACHER АННА MCINTYREUSAMA Facility:[facility] Procedures Date Procedure Procedure Detail Performing Clinician Start: 07-06-2024 Urnls dip stick/tabl et rgnt non-auto w/o micrscp Orlin Gloria DO Work Phone: Start: 07-05-2024 ALL CBC WITH AUTO DIFF Ximena Carver REGISTERED RADIOLOGIC TECHNOLOGIST Work Phone: Start: 06-16-2024 RECURRENT VAGINITIS (HTRX) Orlin Gloria DO Work Phone: Start: 06-16-2024 Urnls dip stick/tabl et rgnt non-auto w/o micrscp Ximena Carver REGISTERED RADIOLOGIC TECHNOLOGIST Work Phone: Start: 04-10-2024 GLUCOSE 1 HOUR Vidya Grider Work Phone: Start: 04-07-2024 Urnls dip stick/tabl et rgnt [...] y Gloria DO Work Phone: Start: 01-19-2024 TB PREG QUANT HCG Core y Gloria DO Work Phone: Start: 12-10-2023 Urine test visual color cmprsn meths Orlin Gloria DO Work Phone: Start: 12-10-2023 IGP,APTIMA HPV,AGE GDLN Orlin Gloria DO Work Phone: Start: 12-10-2023 Microscopic observat ion [Identifier] in Cervix by Cyto stain Ximena Carver REGISTERED RADIOLOGIC TECHNOLOGIST Work Phone: Start: 12-10-2023 Cytp cerv/vag auto t hin layer prep mnl screen Orlin Gloria DO Work Phone: Start: 11-25-2022 Microscopic observat ion [Identifier] in Cervix by [facility]to stain [facility] Work Phone: Plan of Treatment Date Care Activity Detail Author Start: 12-09-2028 Screening for malign ant neoplasm of cervix [facility] Start: 11-25-2025 Screening for malign ant neoplasm of cervix [facility] Start: 12-15-2024 End: 12-15-2024 Patient encounter procedure 12/15/2024 3:00 PM EDT Office Visit [facility] [address] [place] [id number] Orlin Castro, DO [address] [place] [address] [facility] Start: 09-07-2024 End: 09-07-2024 Patient encounter procedure 09/07/2024 1:00 PM EDT Office Visit [facility] [address] [place] [address] Анна Ha, REGISTERED RADIOLOGIC TECHNOLOGIST [address] [place] [id number] [facility] Start: 08-04-2024 End: 08-04-2024 Patient encounter procedure 08/04/2024 2:20 PM EDT Routine [facility] [address] [place] [phone] Orlin Castro, DO [address] [place] [address] [place] [address] [facility] Start: 07-21-2024 End: 07-21-2024 Patient encounter procedure 07/21/2024 2:20 PM EDT Routine [facility] [address] [place] [phone] Vidya Jackson PA [address] [place] [address] [facility] Start: 07-21-2024 End: 01-21-2025 US biophysical profile w non stress test US biophysical profile w non stress test Imaging Routine History of gestational diabetes Expected: 07/21/2024 (Approximate), Expires: 01/21/2025 [facility] Work Phone: Comment on above: Expected: 07/21/2024 (Approximate), Expires: 01/21/2025 Start: 07-21-2024 End: 11-21-2024 US for US OB follow up transabdominal approach Imaging Routine History of gestational diabetes Expected: 07/21/2024, Expires: 11/21/2024 [facility] Comment on above: Expected: 07/21/2024 , Expires: 11/21/2024 Start: 07-06-2024 End: 07-06-2025 Measurement of glucose 1 hour after glucose challenge for glucose tolerance test Glucose tolerance, 1 hour Lab Routine Diabetes mellitus screening Expected: 07/06/2024 (Approximate), Expires: 07/06/2025 [facility] Work Phone: Comment on above: Expected: 07/06/2024 (Approximate), Expires: 07/06/2025 Start: 07-06-2024 End: 11-06-2024 US for US OB follow up transabdominal approach Imaging Routine SGA (small for gestational age) Expected: 07/06/2024, Expires: 11/06/2024 [facility] Comment on above: Expected: 07/06/2024 , Expires: 11/06/2024 Start: 07-06-2024 End: 07-06-2024 Patient encounter procedure 07/06/2024 1:50 PM EDT Routine [facility] [address] [place] [address] Orlin Castro, DO [address] [facility] [address] [place] [address] [facility] Start: 07-06-2024 End: 07-06-2024 Professional / ancillary services management 07/06/2024 1:30 PM EDT Ancillary Procedure [facility] [address] [facility] [place] [address] [facility] Start: 06-16-2024 End: 06-16-2025 CBC panel - Blood by Automated count CBC Lab Routine Diabetes mellitus screening Expected: 06/16/2024 (Approximate), Expires: 06/16/2025 [facility] Comment on above: Expected: 06/16/2024 (Approximate), Expires: 06/16/2025 Start: 06-16-2024 End: 06-16-2025 Measurement of glucose 1 hour after glucose challenge for glucose tolerance test Glucose tolerance, 1 hour Lab Routine Diabetes mellitus screening Expected: 06/16/2024 (Approximate), Expires: 06/16/2025 [facility] Comment on above: Expected: 06/16/2024 (Approximate), Expires: 06/16/2025 Start: 06-16-2024 End: 10-16-2024 US for US OB follow up transabdominal approach Imaging Routine Antepartum multigravida of advanced maternal age Expected: 06/16/2024, Expires: 10/16/2024 [facility] Work Phone: Comment on above: Expected: 06/16/2024 , Expires: 10/16/2024 Start: 06-16-2024 End: 06-16-2024 Patient encounter procedure 06/16/2024 1:20 PM EDT Routine [facility] [address] [facility] [address] [place] [address] Ximena Carver, REGISTERED RADIOLOGIC TECHNOLOGIST [address] [place] [phone] Arrived [facility] Comment on above: Arrived Start: 05-10-2024 End: 05-10-2024 Patient encounter procedure 05/10/2024 2:40 PM EDT Routine [facility] [address] [facility] [place] [address] Orlin Castro DO [address] [place] [address] [facility] Start: 05-10-2024 End: 05-10-2024 Professional / ancillary services management 05/10/2024 1:30 PM EDT Ancillary Procedure [facility] [address] [place] [phone] [facility] Start: 04-07-2024 End: 04-07-2024 Patient encounter procedure [facility] Comment on above: Arrived Start: 04-07-2024 End: 05-05-2024 Alpha fetoprotein, maternal Alpha fetoprotein, maternal Lab Routine Need for maternal serum alpha-protein (MSAFP) screening Expected: 04/07/2024 (Approximate), Expires: 05/05/2024 [facility] Comment on above: Expected: 04/07/2024 (Approximate), Expires: 05/05/2024 Start: 04-07-2024 End: 04-07-2025 Measurement of glucose 1 hour after glucose challenge for glucose tolerance test Glucose tolerance, 1 hour Lab Routine Diabetes mellitus screening Expected: 04/07/2024 (Approximate), Expires: 04/07/2025 [facility] Work Phone: Comment on above: Expected: 04/07/2024 (Approximate), Expires: 04/07/2025 Start: 04-07-2024 End: 04-07-2025 US for US OB 14+ weeks anatomy scan Imaging Routine Screening, , for anatomic survey Expected: 04/07/2024, Expires: 04/07/2025 [facility] Comment on above: Expected: 04/07/2024 , Expires: 04/07/2025 Start: 03-10-2024 End: 03-10-2024 Patient encounter procedure 03/10/2024 2:20 PM EST Routine [facility] [address] [facility] [address] [place] [phone] Orlin Castro, DO [address] [place] [address] [facility] Start: 03-02-2024 End: 03-02-2024 Patient encounter procedure 03/02/2024 9:40 AM EST Office Visit [facility] [address] [place] [address] Анна Ha NP [address] [place] [address] [facility] Start: 02-27-2024 Urine culture [facility] Start: 02-27-2024 Bacteria identified in Urine by Culture Urine Culture [facility] Start: 02-11-2024 End: 02-10-2025 ABO/Rh ABO/Rh Lab Routine Missed menses , unspecified gestational age Expected: 02/11/2024 (Approximate), Expires: 02/10/2025 [facility] Comment on above: Expected: 02/11/2024 (Approximate), [...] first trimester Expected: 02/11/2024 (Approximate), Expires: 02/10/2025 [facility] Comment on above: Expected: 02/11/2024 (Approximate), Expires: 02/10/2025 Start: 02-11-2024 End: 02-10-2025 US Pelvis transvaginal US OB transvaginal Imaging Routine Missed menses Expected: 02/11/2024 (Approximate), Expires: 02/10/2025 [facility] Comment on above: Expected: 02/11/2024 (Approximate), Expires: 02/10/2025 Start: 02-11-2024 End: 02-11-2024 ambulatory 02/11/2024 10:00 AM EST Initial [facility] [address] [place] [address] [facility] Start: 02-11-2024 End: 02-11-2024 Professional / ancillary services management 02/11/2024 9:30 AM EST Ancillary Procedure [facility] [address] [place] [address] [facility] Start: 2018 Screening for malign ant neoplasm of cervix HPV/Cotest [facility] Bacteria identified in Urine by Culture Urine culture Microbiology Routine Missed menses Ordered: 02/11/2024 [facility] Comment on above: Ordered: 02/11/2024 CBC W Auto Different ial panel - Blood CBC and differential Lab Routine Missed menses , unspecified gestational age Ordered: 02/11/2024 [facility] Comment on above: Ordered: 02/11/2024 CHLAMYDIA TRACHOMATI S (GENITO/STI) CHLAMYDIA TRACHOMATIS (GENITO/STI) Lab Routine Screen for STD (sexually transmitted disease) Ordered: 06/16/2024 [facility] Comment on above: Ordered: 06/16/2024 Cytology Cervical or vaginal smear or scraping study Pap Smear Pathology and Cytology Routine Well woman exam with routine gynecological exam Ordered: 12/10/2023 [facility] Work Phone: Comment on above: Ordered: 12/10/2023 Hemoglobin A1c/Hemoglobin.total in Blood Hemoglobin A1c Lab Routine Missed menses , unspecified gestational age Ordered: 02/11/2024 [facility] Comment on above: Ordered: 02/11/2024 Hepatitis B virus surface Ag [Presence] in Serum or Plasma by Immunoassay Hepatitis B surface antigen Lab Routine Missed menses , unspecified gestational age Ordered: 02/11/2024 [facility] Comment on above: Ordered: 02/11/2024 Hepatitis C virus Ab [Presence] in Serum or Plasma by Immunoassay Hepatitis C antibody Lab Routine Missed menses , unspecified gestational age Ordered: 02/11/2024 [facility] Comment on above: Ordered: 02/11/2024 HIV-1/HIV-2 antigen/antibody combination immunoassay HIV-1 and HIV-2 antibodies Lab Routine Missed menses , unspecified gestational age Ordered: 02/11/2024 [facility] Comment on above: Ordered: 02/11/2024 Human papilloma viru s DNA [Presence] in Unspecified specimen by Probe with amplification HPV DNA probe, amplified Microbiology Routine Well woman exam with routine gynecological exam Ordered: 12/10/2023 [facility] Comment on above: Ordered: 12/10/2023 Neisseria gonorrhoea e DNA [Presence] in Unspecified specimen by JUAN with probe detection Neisseria gonorrhea DNA probe, direct Lab Routine Screen for STD (sexually transmitted disease) Ordered: 06/16/2024 [facility] Comment on above: Ordered: 06/16/2024 Reagin Ab [Presence] in Serum by RPR RPR Lab Routine Missed menses , unspecified gestational age Ordered: 02/11/2024 [facility] Comment on above: Ordered: 02/11/2024 Rubella antibody, IgG Rubella an tibody, IgG Lab Routine Missed menses , unspecified gestational age Ordered: 02/11/2024 [facility] Comment on above: Ordered: 02/11/2024 SURESWAB(R) ADVANCED VAGINITIS PLUS, TMA SURESWAB(R) ADVANCED VAGINITIS PLUS, TMA Pathology and Cytology Routine Screen for STD (sexually transmitted disease) Ordered: 06/16/2024 [facility] Work Phone: Comment on above: Ordered: 06/16/2024 Immunizations Immunization Date Immunization Notes Care Provider Joan ornelas 12-08-2017 influenza, seasonal, injectable, preservative free Orlin Castro DO Work Phone: [facility] Payers Date Payer Category Payer Self-pay [id number] 2023 Managed Care O (unspecified) [employer] [id number] 2023 Private Health Insurance [id number] 2022 Medicaid (Managed Care) [employer] Member Subscriber Plan / Payer (Effective 2022-Present) Name: Shreya Masrhall Relation to Subscriber: Self Name: Shreya Marshall Payer ID: Not on file Group ID: Not on file Type: Not on file Address: [place] [id number] [id number] 1988 Unknown [id number] [id number]. 2.593 1988 Unknown [id number] 2.840.1.694485.3.579. 2.593 1988 Unknown [id number] 2.840.1.742574.3.579. 2.59 1988 Unknown [id number] 2.840.1.825689.3.579. 2.593 1988 Unknown [id number] 2.840.1.245270.3.579. 2.1258 1988 Unknown [id number] 2.16840.1.783995.3.579. 2.9 1988 Unknown [id number] 2.840.1.079494.3.579. 2.1258 1988 Unknown [id number] 2.16840.1.893618.3.579. 2.1259 1988 Unknown [id number] 2.16840.1.315204.3.579. 2.1258 1988 Unknown [id number] 2.16840.1.168533.3.579. 2.1258 1988 Unknown [id number] 2.16840.1.216947.3.579. 2.125 1988 Unknown [id number] 2.16840.1.549418.3.579. 2.1259 1988 Unknown [id number] 2.16.840.1.579164.3.579. 2.1259 1988 Unknown [id number] 2.16.840.1.049943.3.579. 2.1259 1988 Unknown [id number] 2.16.840.1.526469.3.579. 2.1259 1959 Unknown [id number] Private Health Insurance [employer] [id number] Unknown [id number] 2.16.840.1.171250.3.579. 2.531 Unknown [id number] 2.16.840.1.415106.3.579. 2.531 Social History Date Type Detail Facility Start: 03-05-2019 End: 03-05-2019 Tobacco smoking status [facility] Never smoked tobacco (finding) [facility] Start: 1990 Sex Assigned At Female [facility] Start: 10-30-2022 Tobacco smoking status [facility] Ex-smoker [facility] End: 02-24-2014 History of tobacco use Current smoker [facility] End: 02-24-2014 History of tobacco use Cigarette Smoker [facility] Start: 10-30-2022 Tobacco use and exposure Smokeless tobacco non-user [facility] Start: 12-10-2023 End: 07-21-2024 Alcoholic beverage intake Lifetime non-drinker (finding) [facility] Start: 05-19-2023 End: 06-08-2024 History of Social function [facility] Start: 05-19-2023 End: 06-08-2024 Social connection and isolation panel [facility] Do you belong to any clubs or organizations such as sikhism groups, unions, fraternal [...] [facility] Start: 02-28-2024 Sex Female (finding) [facility] Goals Date Patient Goal Desired Activity /State Personal health goal Clinical Notes 12-10-2023 to 07-21-2024 GISELLE Cramer - 07/21/2024 2:20 PM Fred Gilbert LPN - 07/06/2024 1:50 PM Percy Carver NP - 06/16/2024 1:20 PM GISELLE Tracy - 04/07/2024 2:20 PM EST Note Date & Type Note Facility 07-21-2024 History of Present illness Narrative Reason for Appointment: Patient ID: [...] for wellness examination in adult 09/01/2023 Depression ([facility]) 09/01/2023 Resolved Ambulatory Problems Diagnosis Date Noted Major depressive disorder, single episode, mild (HCC) ([facility]) 09/01/2023 Past Medical History: Diagnosis Date Abnormal Pap smear of cervix 2009 Contraception management Current mild episode of major depressive disorder without prior episode (HCC) ([facility]) Degenerative joint disease of spine Encounter for IUD removal History of abnormal cervical Pap smear [facility] Pap smear of vagina 2012 Overweight (BMI 25.0-29.9) SVT (supraventricular tachycardia) ([facility]) Torn meniscus HISTORY PAST MEDICAL HISTORY SOCIAL HISTORY Past Medical History: Diagnosis Date Abnormal Pap smear of cervix 2009 Contraception management Current mild episode of major depressive disorder without prior episode (HCC) ([facility]) 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 Arits needs to stop with preg. Cat. C [facility] Pap smear of vagina 2012 Overweight (BMI 25.0-29.9) SVT (supraventricular tachycardia) ([facility]) Torn meniscus Social History Tobacco [...] abnormal pap smear PAP SMEAR 03/07/[address] [facility] Drug Therapy -SVT TONSILLECTOMY 1992 [...] Vitals: Estimated body mass index is 33.14 kg/m as calculated from the following: Height [...] of: GISELLE Cramer documented in this encounter [facility] 07-06-2024 History of Present illness Narrative Reason for Appointment: Patient ID: [...] for wellness examination in adult 09/01/2023 Depression ([facility]) 09/01/2023 Resolved Ambulatory Problems Diagnosis Date Noted [...] Types: Cigarettes Quit date: 2014 Years since quittin.3 Smokeless tobacco: Never Tobacco comments: Ex-moderate cigarette [...] abnormal pap smear PAP SMEAR 03/07/[address] MEDICATION MANAGEMENT Drug Therapy -SVT TONSILLECTOMY 1992 [...] nursing note reviewed. Exam conducted with a auger machine offbearer present. Vitals: Estimated body mass index is 32.69 kg/m as calculated from the following: Height as of 09/01/23: 5' 1 . Weight as of this encounter: 173 lb. BP: 118/72 Patient's last menstrual period was 12/11/2023. ASSESSMENT & PLAN ICD-10-CM 1. Third trimester Z34.93 POCT urinalysis dipstick manually resulted 2. 28 weeks gestation of Z3A.28 3. Elevated glucose tolerance test R73.09 Glucose tolerance, 3 hours Glucose tolerance, 3 hours Return OB: Patient presents today for a routine obstetrics appointment. Patient is currently 28w4d . Patient states she is doing well but has complaints of being tired due to current . Patient has verbalizes frequent movement. labor precautions was discussed/given and patient was instructed to perform kick counts three times a day. Given growth to have repeated in 3 weeks. Pt to repeat one hour glucola. Orders Placed This Encounter Procedures Glucose tolerance, 3 hours POCT urinalysis dipstick manually resulted Follow Up: Patient is to return to office in 2 week for routine OB appointment. Documented by Isatu Gilbert LPN on behalf of: Orlin Castro DO documented in this encounter [facility] 06-16-2024 History of Present illness Narrative Reason for Appointment: Patient ID: [...] for wellness examination in adult 09/01/2023 Depression ([facility]) 09/01/2023 Resolved Ambulatory Problems Diagnosis Date Noted Major depressive disorder, single episode, mild (HCC) ([facility]) 09/01/2023 Past Medical History: Diagnosis Date Abnormal Pap smear of cervix 2009 Contraception management Current mild episode of major depressive disorder without prior episode (HCC) ([facility]) Degenerative joint disease of spine [...] Types: Cigarettes Quit date: 2014 Years since quittin.3 Smokeless tobacco: Never Tobacco comments: Ex-moderate cigarette [...] abnormal pap smear PAP SMEAR 03/07/[address] MEDICATION MANAGEMENT Drug Therapy -SVT TONSILLECTOMY 1992 [...] nursing note reviewed. Exam conducted with a auger machine offbearer present. Vitals: Estimated body mass index is 31.71 kg/m as calculated from the following: Height as of 09/01/23: 5' 1 . Weight as of 05/10/24: 167 lb 12.8 oz. BP: Patient's last menstrual period was 12/11/2023. ASSESSMENT & PLAN ICD-10-CM 1. Second trimester Z34.92 POCT urinalysis dipstick manually resulted 2. 25 weeks gestation of Z3A.25 3. Screen for STD (sexually transmitted disease) Z11.3 SURESWAB(R) ADVANCED VAGINITIS PLUS, TMA CHLAMYDIA TRACHOMATIS (GENITO/STI) Neisseria gonorrhea DNA probe, direct 4. Diabetes mellitus screening Z13.1 CBC Glucose tolerance, 1 hour CBC Glucose tolerance, 1 hour 5. Antepartum multigravida of advanced maternal age O09.529 US OB follow up transabdominal approach Patient presents today for a routine obstetrics appointment. Patient is currently 25w5d with a Estimated Date of Delivery: 09/24/24. Obtained vaginal cultures today for routine check in , as patient already had PAP obtained 12/10/23=Negative. Patient is going to scheduled growth scan for prior to next appointment. Patient given 1 hour gtt to also have obtained. Patient is going to be going on vacation as this was approved through provider previously and patient had been made aware of recommendations for travel. Patient to return to clinic in 2-3 weeks. Documented by Ramandeep Ferguson LPN on behalf of: Ximena Carver NP documented in this encounter [facility] 04-07-2024 History of Present illness Narrative Reason for Appointment: Patient ID: [...] Types: Cigarettes Quit date: 2014 Years since quittin. Smokeless tobacco: Never Tobacco comments: Ex-moderate cigarette [...] abnormal pap smear PAP SMEAR 03/07/[address] [facility]ICATION [facility]NAGEMENT Drug Therapy -SVT TONSILLECTOMY 1992 [...] of: GISELLE Cramer documented in this encounter [facility] 03-10-2024 History of Present illness Narrative Reason for Appointment: Patient ID: [...] abnormal pap smear PAP SMEAR 03/07/[address] [facility]ICATION MANAGEMENT Drug Therapy -SVT TONSILLECTOMY 1992 [...] nursing note reviewed. Exam conducted with a auger machine offbearer present. Vitals: Estimated body mass index is [...] or undercooked meat, and stay away from [facility]. Patient has been consulted regarding any further [...] Orlin Castro DO documented in this encounter [facility] 02-11-2024 History of Present illness Narrative Reason for Appointment: Patient ID: [...] abnormal pap smear PAP SMEAR 03/07/[address] [facility]ICATION [facility]NAGEMENT Drug Therapy -SVT TONSILLECTOMY 1992 [...] or undercooked meat, and stay away from [facility]. Patient has also been advised to not change litter boxes and eat 6 small meals a day. Patient has been consulted regarding the do's and don'ts of . Patient was given labs and all questions and concerns were answered. Patient was given [place] to have completed at 10 weeks. Follow Up: Patient is to return in 4 weeks for routine OB appointment. Follow Up: Patient is to have labs drawn at directed and return to office for initial OB appointment with provider. Patient may call office as needed with any concerns or questions. Nurse Visit Completed by: Lynnette Stapleton LPN documented in this encounter [facility] 12-10-2023 History of Present illness Narrative Reason for Appointment: Patient ID: [...] for wellness examination in adult 09/01/2023 Depression ([facility]) 09/01/2023 Resolved Ambulatory Problems Diagnosis Date Noted Major depressive disorder, single episode, mild (HCC) ([facility]) 09/01/2023 Past Medical History: Diagnosis Date Abnormal Pap smear of cervix 2009 Contraception management Current mild episode of major depressive disorder without prior episode (HCC) ([facility]) Degenerative joint disease of spine Encounter for IUD removal History of abnormal cervical Pap smear [facility] Pap smear of vagina 2012 Overweight (BMI 25.0-29.9) SVT (supraventricular tachycardia) ([facility]) Torn meniscus HISTORY PAST MEDICAL HISTORY SOCIAL HISTORY Past Medical History: Diagnosis Date Abnormal Pap smear of cervix 2009 Contraception management Current mild episode of major depressive disorder without prior episode (HCC) ([facility]) 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 Artis needs to stop with preg. Cat. C [facility] Pap smear of vagina 2012 Overweight (BMI 25.0-29.9) SVT (supraventricular tachycardia) ([facility]) Torn meniscus Social History Tobacco [...] abnormal pap smear PAP SMEAR 03/07/[address] MEDICATION MANAGEMENT Drug Therapy -SVT TONSILLECTOMY 1992 [...] nursing note reviewed. Exam conducted with a auger machine offbearer present. Vitals: Estimated body mass index is [...] in this encounter [facility] Evaluation note No assessment inform ation available [facility] [place] Work Phone: Evaluation note Diagnosis Primary insomnia- Primary Persistent [...] Missed menses [facility] Diagnosis Primary insomnia- Primary Persistent disorder of [...] first trimester [facility] Diagnosis Primary insomnia- Primary Persistent disorder of [...] maintaining sleep [facility] Diagnosis Primary insomnia- Primary Persistent disorder of [...] state, incidental [facility] Diagnosis Primary insomnia- Primary Persistent disorder of [...] gestation of [facility] Diagnosis Primary insomnia- Primary Persistent disorder of initiating or maintaining sleep Obesity (BMI 30-39.9) Encounter for wellness examination in adult- Primary Major depressive disorder, single episode, mild (HCC) (CMS/HCC) Major depressive disorder, single episode, mild Primary insomnia Persistent disorder of initiating or maintaining sleep Obesity (BMI 30-39.9) Depression, unspecified depression type (CMS/HCC) Second trimester state, incidental 25 weeks gestation of Screen for STD (sexually transmitted disease) Screening examination for venereal disease Diabetes mellitus screening Screening for diabetes mellitus Antepartum multigravida of advanced maternal age [facility] Diagnosis Primary insomnia- Primary Persistent disorder of initiating or maintaining sleep Obesity (BMI 30-39.9) Encounter for wellness examination in adult- Primary Major depressive disorder, single episode, mild (HCC) (CMS/HCC) Major depressive disorder, single episode, mild Primary insomnia Persistent disorder of initiating or maintaining sleep Obesity (BMI 30-39.9) Depression, unspecified depression type (CMS/HCC) Third trimester state, incidental 28 weeks gestation of Elevated glucose tolerance test Impaired glucose tolerance test Diabetes mellitus screening Screening for diabetes mellitus SGA (small for gestational age) Ggopo-xkw-vqppl without mention of malnutrition, unspecified (weight) [facility] Diagnosis Primary insomnia- Primary Persistent disorder of initiating or maintaining sleep Obesity (BMI 30-39.9) Encounter for wellness examination in adult- Primary Major depressive disorder, single episode, mild (HCC) (CMS/HCC) Major depressive disorder, single episode, mild Primary insomnia Persistent disorder of initiating or maintaining sleep Obesity (BMI 30-39.9) Depression, unspecified depression type (CMS/HCC) Third trimester state, incidental 30 weeks gestation of History of gestational diabetes Personal history of other genital system and obstetric disorders documented in this encounter [facility] Summary [...] CREATED AUTHOR AUTHOR'S ORGANIZ ATION 03/06/2024 [facility] DATE CREATED AUTHOR AUTHOR'S ORGANIZ ATION 07/07/2024 [facility] Care Teams (unrecognized sec tion and content) Team Status: Active Member Role Status Dates Dar Brody MD Primary Care Provider Active Team Status: Inactive Member Role Status Dates Dar Brody MD Primary Care Provider Active Start: June 30, 2023 End: June 30, 2023 Orlin Castro Attending Provider Active Start: Viky brewer 2023 End: June 30, 2023 Yarn Mercerizer Operator Helper Relationship Specialty Start Date End Date Parag Bradley MD [address] [place] [phone] PCP - General Family [facility] 08/14/22 Анна Ha NP [address] [place] [phone] [facility] 08/25/23 Yarn Mercerizer Operator Helper Relationship Specialty Start Date End Date Parag Bradley MD [address] [place] [phone] [facility] 08/14/22 Анна Ha NP [address] [place] [phone] [facility] 08/25/23 Yarn Mercerizer Operator Helper Relationship Specialty Start Date End Date Parag Bradley MD [address] [place] [phone] PCP - [facility] 08/14/22 Анна Ha NP [address] [place] [phone] [facility] 08/25/23 Yarn Mercerizer Operator Helper Relationship Specialty Start Date End Date Parag Bradley MD [address] [place] [phone] PCP - [facility] 08/14/22 Анна Ha NP [address] [place] [phone] [facility] 08/25/23 Yarn Mercerizer Operator Helper Relationship Specialty Start Date End Date Parag Bradley MD [address] [place] [phone] PCP - [facility] 08/14/22 Анна Ha NP [address] [place] [phone] [facility] 08/25/23 Yarn Mercerizer Operator Helper Relationship Specialty Start Date End Date Parag Bradley MD [address] [place] [phone] PCP - [facility] 08/14/22 Анна Ha NP [address] [place] [phone] [facility] 08/25/23 Team Status: Inactive Member Role Status Dates Orlin Gloria , DO Attending Provider Active Start : February 27, 2024 End: February 27, 2024 Yarn Mercerizer Operator Helper Relationship Specialty Start Date End Date Parag Bradley MD [address] [place] [phone] PCP - [facility] 08/14/22 Анна Ha NP [address] [place] [phone] PCP - [facility] 08/25/23 Yarn Mercerizer Operator Helper Relationship Specialty Start Date End Date Parag Bradley MD [address] [place] [phone] PCP - [facility] 08/14/22 Анна Ha NP [address] [place] [phone] [facility] 08/25/23 Yarn Mercerizer Operator Helper Relationship Specialty Start Date End Date Parag Bradley MD [address] [place] [phone] PCP - [facility] 08/14/22 Анна Ha NP [address] [place] [phone] [facility] 08/25/23 Yarn Mercerizer Operator Helper Relationship Specialty Start Date End Date Parag Bradley MD [address] [place] [phone] PCP - [facility] 08/14/22 Анна Ha NP [address] [place] [address] PCP - [facility] 08/25/23 Goals (unrecognized section and content) Goals [...] BE BASED ON THE PRIMARY CLINICAL RECORDS. [employer] provides no warranty or guarantee of the accuracy or completeness of information in this document.
[2024-07-23 09:46] LABS: Glucose Fasting 97 mg/dL (<95)
[2024-07-23 10:53] LABS: Glucose 1 Hour 151 mg/dL (<180)
[2024-07-23 11:52] LABS: Glucose 2 Hour 151 mg/dL (<155)
[2024-07-23 12:44] LABS: Glucose 3 Hour 123 mg/dL (<140)
== END 2024-07-23 09:05 | disposition home or self-care (01) ==
LOC: LAB 09:04
PROVIDERS: PCP Nurse Practitioner; Visit Provider Obstetrics & Gynecology
DX: R73.09 Other abnormal glucose (principal); Z3A.30 30 weeks gestation of pregnancy
CPT/HCPCS: 36415; 82951; 82952

== ENCOUNTER 2024-07-28 09:57 | Outpatient (OUT) | payer OTHER, SELFPAY ==
--- NOTE | 2024-07-28 10:03 | US_ITS ---
The [address] [address] Patient Name: ROXANNE ROGERS MRN: [id number] date: 1990 Sex: F Assigned Patient Location: Current Patient Location: US Accession/Order Number: [id number] Exam Date: 07/28/2024 10:44 Report Date: 07/28/2024 10:48 At the request of: ORLIN ESCOBAR DO Procedure: US OB growth ULTRASOUND OB GROWTH CLINICAL DATA: History of gestational diabetes COMPARISON: 02/11/2024 There is a single live intrauterine gestation in cephalic presentation. There is cardiac and somatic activity with heart rate of 144 beats per minutes. The amniotic fluid index measures 10.6 cm which is in low-normal range. The following measurements were obtained: Biparietal diameter 8.1 cm 32 weeks 3 days 62% Head circumference 28.8 cm 31 weeks 5 days 14% Abdominal circumference 26.4 cm 30 weeks 3 days 15% Femur length 5.7 cm 29 weeks 6 days 4% The composite ultrasound age based on these measurements is 31 weeks 1 day +/- 2 weeks 1 day. This is within standard deviation of dates based on the comparison. The estimated weight is 3 lbs. 8 oz. +/- 8 ounces (10%). US/US OB growth IMPRESSION: SINGLE LIVE INTRAUTERINE GESTATION WITH ULTRASOUND AGE OF 31 WEEKS 1 DAY. APPROPRIATE INTERVAL GROWTH. Impression dictated by: Isatu Auguste M.D. 07/28/2024 10:48 AM Dictation Location: [place] [address] Electronically authenticated by: [id number] Date: 07/28/2024 10:48
--- OUTSIDE RECORDS SUMMARY | 2024-07-28 10:07 | XMS_ITS | CCD ---
Author Organization [facility] Care Team Providers Care Head Housekeeper Name Role Phone AICHHOLZ, HIGHWAY ADMINISTRATIVE ENGINEER АННА Primary Care Unavailable PAY, DR LIN Admitting Unavailable PAY, DR LIN Attending Unavailable GISELLE RESTREPO Consulting Unavailable GLORIA, DR ORDAZ Admitting Unavailable GLORIA, DR ORDAZ Attending Unavailable AICHHOLZ, HIGHWAY ADMINISTRATIVE ENGINEER АННА Primary Care Unavailable GLORIA, DR ORDAZ Consulting Unavailable AICHHOLZ, HIGHWAY ADMINISTRATIVE ENGINEER АННА Admitting Unavailable AICHHOLZ, HIGHWAY ADMINISTRATIVE ENGINEER АННА Attending Unavailable AICHHOLZ, HIGHWAY ADMINISTRATIVE ENGINEER АННА Primary Care Unavailable AICHHOLZ, HIGHWAY ADMINISTRATIVE ENGINEER АННА Consulting Unavailable AICHHOLZ, HIGHWAY ADMINISTRATIVE ENGINEER АННА Primary Care Unavailable DON, DR BIRD Admitting Unavailable DON, DR BIRD Attending Unavailable GISELLE RESTREPO Consulting Unavailable PHOEBE ALFARO Consulting Unavailable MD Dar Brody Primary Care Provider Orlin Castro Attending Provider Parag Bradley MD Primary Care Provider Aichholdavid CLINICAL NURSING DIRECTOR, Анна Unavailable Orlin Castro DO Attending Provider Orlin Castro Attending Unavailable Orlin Castro Admitting Unavailable Dar Brody Primary Care Unavailable Orlin Castro Attending Unavailable Orlin Castro Admitting Unavailable VIDYA JACKSON Attending Unavailable VIDYA JACKSON Referring Unavailable ORLIN CASTRO Attending Unavailable XIMENA CARVER Attending Unavailable ORLIN CASTRO Referring Unavailable ORLIN CASTRO Attending Unavailable AICKennethHOLDavid, АННА Attending Unavailable ORLIN CASTRO Attending Unavailable ORLIN CASTRO Attending Unavailable VIDYA JACKSON Attending Unavailable Allergies Allergy Classification Reported Allergen(s) Allergy Type Date of Onset Reaction(s) Facility (20 sources) Other Propensity to adverse reactions 3 [facility] Medications Current Medications Medication Drug Class(es) Dates Sig (Normalized) Sig (Original) aspirin 81 mg delayed release oral tablet (11 sources) Platelet Aggregation Inhibitor, Nonsteroidal Anti-inflammatory Drug take 1 tablet by mouth once daily aspirin 81 MG EC tablet Take 81 mg by mouth Daily Active levonorgestrel 0.004157 mg/hr intrauterine system (2 sources) Progestin, Progestin-containi [...] omeprazole 20 mg delayed release oral capsule (10 sources) Proton Pump Inhibitor Start: 05-10-2024 End: 05-10-2025 take 1 capsule by mouth once before mealtime omeprazole (PriLOSEC) [address] capsule Indications: Heartburn during in second trimester Take 1 capsule (20 mg) by mouth in the morning. Take before meals. Do not crush or chew.. 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 therapy; Translations: [OTH SENIOR LIVING CURRENT DRUG THERAPY] Onset: 02-22-2022 Episodic Other [...] low weight; and growth retardation (2 sources) Yokum-uus-jvtue baby; Translations: [Beatrice small for gestational age, unspecified weight] 07-06-2024 Episodic Unclassified (2 sources) COUGH, UNSPECIFIED; Translations: [COUGH, UNSPECIFIED] Onset: 02-22-2022 Unclassified (1 source) PERSONAL HISTORY OF COVID-19; Translations: [PERSONAL HISTORY OF COVID-19] Onset: 02-22-2022 Unclassified (1 source) CONTACT W/AND (SUSP) EXPOS COVID-19; Translations: [CONTACT W/AND (SUSP) EXPOS COVID-19] Onset: 02-22-2022 Unclassified (19 sources) OB Reminders Onset: 02-11-2024 02-11-2024 Past [...] Test Name Value Interpretation Reference Range Facility GLUCOSE TOLERANCE 3 HOURon 0 07-23-2024 GLUCOSE TOLERANCE 3 HOUR High mg/dL [facility] Comment on above: GLU FAST 97H (<95) C ol: 07/23/24 0909 GLU 1HR 151 (<180) Col: 07/23/24 1013 GLU 2HR 151 (<155) Col: 07/23/24 1113 GLU 3HR 123 (<140) Col: 07/23/24 1213 Interpretation and review of laboratory results Abnormal [facility] US OB FOLLOW UP TRANSABDOMIN AL APPROACHon [...] II, MD, PHD at 07-Jul-2024 10:00:26 AM [facility] Normal Not Available Comment on above: Order Comment: US OB SCAN FOR GROWTH Estimated Date of Delivery: 09/24/24 Gestational Age as of 06/16/2024: 25w5d Urinalysis macro (dipstick) panel (U)on 07-06-2024 Bilirubin, UA Negative Negative - 4(70) +++ mg/dL [facility] Blood, UA Negative Negative - 50 Richy/mcL [facility] Clarity, UA Clear [facility] Color, UA Yellow [facility] Glucose, UA Negative Negative - 2000(110) ++++ mg/dL [facility] Interpretation and review of laboratory results Normal [facility] Ketones, UA Negative Negative - 160(16) ++++ mg/dL [facility] Leukocytes, UA Negative Negative - 500+++ Tano/mcL [facility] Nitrite, UA Negative Negative - Positive [facility] pH, UA 7 5 - 9 [facility] Protein, UA Negative Negative - 1999(20) ++++ mg/dL [facility] Spec Grav, UA 1.015 1 - 1.03 [facility] Urobilinogen, UA 0.2 0.2 - 12 mg/dL [facility] ALL CBC WITH AUTO DIFFon BASOPHILS ABSOLUTE AUTO 0 [facility] Basophils/100 WBC (Bld) 0.3 % 0.2 - 2.0 % [facility] Eosinophils/100 WBC (Bld) 0.3 % Low 0.9 - 7.0 % [facility] Erythrocyte distribution width (RBC) [Ratio] 12.9 % 11.0 - 15.0 % [facility] Hematocrit (Bld) [Volume fraction] 35.5 % Low 36.0 - 48.0 % [facility] Hemoglobin (Bld) [Mass/Vol] 11.6 g/dL Low 12.0 - 16.0 g/dL [facility] IMMATURE GRANULOCYTES ABS AUTO 0.03 [facility] Immature granulocytes/100 WBC (Bld) 0.4 % 0.0 - 0.5 % [facility] Interpretation and review of laboratory results Abnormal [facility] LYMPHOCYTES ABSOLUTE AUTO 1.7 [facility] Lymphocytes/100 WBC (Bld) 22.3 % 20.5 - 60.0 % [facility] MCH (RBC) [Entitic mass] 30.7 pg 26.7 - 34.[address] [facility] MCHC (RBC) [Mass/Vol] 32.7 g/dL 29.9 - 35.2 g/dL [facility] MCV (RBC) [Entitic vol] 93.9 fL 81.0 - 99.[address] [facility] MONOCYTES ABSOLUTE AUTO 0.4 [facility] Monocytes/100 WBC (Bld) 5.5 % 1.7 - 12.0 % [facility] NEUTROPHILS ABSOLUTE AUTO 5.3 [facility] Neutrophils/100 WBC (Bld) 71.2 % 43.0 - 75.0 % [facility] Platelet mean volume (Bld) [Entitic vol] 9.6 fL 9.5 - 13.[address] [facility] TBH EO # 0 [facility] PLT [address] [facility] RBC 3.[address] [facility] TBH WBC 7.4 [facility] RECURRENT VAGINITIS (HTRX)on 06-17-[address] [facility] ATOPOBIUM VAGINAE Not detected [facility] BVAB 2,3 (BACTERIAL VAGINOSIS ASSOCIATED BACTERIA 2, 3); MOBILUNCUS SPP 0 [facility] BVAB 2,3 (BACTERIAL VAGINOSIS ASSOCIATED BACTERIA 2, 3); MOBILUNCUS SPP Not detected [facility] RANJANA ALBICANS, PARAPSILOSIS, TROPICALIS 0 [facility] RANJANA ALBICANS, PARAPSILOSIS, TROPICALIS Not detected [facility] RANJANA GLABRATA [address] [facility] RANJANA GLABRATA Not detected [facility] RANJANA KRUSEI [address] [facility] RANJANA KRUSEI Not detected [facility] CHLAMYDIA TRACHOMATIS 0 [facility] CHLAMYDIA TRACHOMATIS Not detected [facility] GARDNERELLA VAGINALIS [address] [facility] GARDNERELLA VAGINALIS Not detected [facility] MEGASPHAERA (TYPES 1, 2) 0 [facility] MEGASPHAERA (TYPES 1, 2) Not detected [facility] MYCOPLASMA GENITALIUM [address] [facility] MYCOPLASMA GENITALIUM Not detected [facility] NEISSERIA GONORRHOEAE [address] [facility] NEISSERIA GONORRHOEAE Not detected [facility] TRICHOMONAS VAGINALIS [address] [facility] TRICHOMONAS VAGINALIS Not detected [facility] Urinalysis macro (dipstick) panel (U)on 06-16-2024 Bilirubin, UA Negative Negative - 4(70) +++ mg/dL [facility] Blood, UA Negative Negative - 50 Richy/mcL [facility] Clarity, UA Clear [facility] Color, UA Yellow [facility] Glucose, UA Negative Negative - 1999(110) ++++ mg/dL [facility] Interpretation and review of laboratory results Normal [facility] Ketones, UA Negative Negative - 160(16) ++++ mg/dL [facility] Leukocytes, UA Negative Negative - 500+++ Tano/mcL [facility] Nitrite, UA Negative Negative - Positive [facility] pH, UA 6 5 - 9 [facility] Protein, UA Negative Negative - 1999(20) ++++ mg/dL [facility] Spec Grav, UA 1.01 1 - 1.03 [facility] Urobilinogen, UA 0.2 0.2 - 12 mg/dL [facility] US OB 14+ WEEKS ANATOMY SCAN on [...] II, MD, PHD at 11-May-2024 12:36:27 AM [employer] Normal Not Available Comment on above: Order Comment: US OB ANATOMY SINGLE W US OB CERVICAL LENGTH Estimated Date of Delivery: 09/24/24 Gestational Age as of 04/07/2024: 15w5d GLUCOSE 1 HOURon 04-10-2024 Glucose [Mass/Vol] 124 mg/dL NINF - 13 0 mg/dL [facility] Urinalysis macro (dipstick) panel (U)on 04-07-2024 Bilirubin, UA Negative Negative - 4(70) +++ mg/dL [facility] Blood, UA Positive Negative - 50 Richy/mcL [facility] Comment on above: trace Clarity, UA Clear [facility] Color, UA Yellow [facility] Glucose, UA Negative Negative - 1999(110) ++++ mg/dL [facility] Interpretation and review of laboratory results Abnormal [facility] Ketones, UA Positive Negative - 160(16) ++++ mg/dL [facility] Comment on above: 15 Leukocytes, UA Negative Negative - 500+++ Tano/mcL [facility] Nitrite, UA Negative Negative - Positive [facility] pH, UA 7 5 - 9 [facility] Protein, UA Negative Negative - 1999(20) ++++ mg/dL [facility] Spec Grav, UA 1.02 1 - 1.03 [facility] Urobilinogen, UA 1.0 0.2 - 12 mg/dL [facility] Urinalysis macro (dipstick) panel (U)on 03-10-2024 Bilirubin, UA Negative Negative - 4(70) +++ mg/dL [facility] Blood, UA Positive Negative - 50 Richy/mcL [facility] Comment on above: trace-intact Clarity, UA Clear [facility] Color, UA Yellow [facility] Glucose, UA Negative Negative - 1999(110) ++++ mg/dL [facility] Interpretation and review of laboratory results Abnormal [facility] Ketones, UA Negative Negative - 160(16) ++++ mg/dL [facility] Leukocytes, UA Negative Negative - 500+++ Tano/mcL [facility] Nitrite, UA Negative Negative - Positive [facility] pH, UA 6.5 5 - 9 [facility] Protein, UA Negative Negative - 1999(20) ++++ mg/dL [facility] Spec Grav, UA 1.01 1 - 1.03 [facility] Urobilinogen, UA 0.2 0.2 - 12 mg/dL [facility] BOX TESTon 02-27-2024 BOX TEST SENT OUT [facility] BOX1 [facility] BOX2 02/27/24 [facility] BOX [facility] Urine Cultureon 02-27-2024 Bacteria identified Cx Nom (U) No Growth 2 Days PERFORMED BY: [address] [id number] PATHOLOGIST FRONT DESK ASSOCIATE SHEREE MCCARTHY M.D. Normal [facility] Comment on above: Performed By: #### C UU #### [place] [id number] [facility] HCG ( test) Ql (U)o n 02-11-2024 Interpretation and review of laboratory results Abnormal [facility] Preg Test, Ur Positive Negative [facility] Urinalysis macro (dipstick) panel (U)on 02-11-2024 Bilirubin, UA Positive Negative - 4(70) +++ mg/dL [facility] Comment on above: small Blood, UA Positive Negative - 50 Richy/mcL [facility] Comment on above: trace-lysed Clarity, UA Clear [facility] Color, UA Yellow [facility] Glucose, UA Negative Negative - 1999(110) ++++ mg/dL [facility] Interpretation and review of laboratory results Abnormal [facility] Ketones, UA Positive Negative - 160(16) ++++ mg/dL [facility] Comment on above: trace Leukocytes, UA Trace Negative - 500+++ Tano/mcL [facility] Nitrite, UA Negative Negative - Positive [facility] pH, UA 6 5 - 9 [facility] Protein, UA Positive Negative - 2000(20) ++++ mg/dL [facility] Comment on above: 100 Spec Grav, UA 1.03 1 - 1.03 [facility] Urobilinogen, UA 0.2 0.2 - 12 mg/dL [facility] TBH PREG QUANT HCGon 024 HCG QUANTITATIVE 22087 mIU/mL [facility] Comment on above: 5-50 0.2-1 WEEK 50-500 1-2 WEEKS 100-5,000 2-3 WEEKS 500-10,000 3-4 WEEKS 1,000-50,000 4-5 WEEKS 10,000-100,000 5-6 WEEKS 15,000-200,000 6-8 WEEKS 10,000-100,000 2-3 MONTHS [facility] PREG QUANT HCGon 024 HCG QUANTITATIVE 72699 mIU/mL [facility] Comment on above: 5-50 0.2-1 WEEK 50-500 1-2 WEEKS 100-5,000 2-3 WEEKS 500-10,000 3-4 WEEKS 1,000-50,000 4-5 WEEKS 10,000-100,000 5-6 WEEKS 15,000-200,000 6-8 WEEKS 10,000-100,000 2-3 MONTHS [facility] PREG QUANT HCGon 024 HCG QUANTITATIVE 14269 mIU/mL [facility] Comment on above: 5-50 0.2-1 WEEK 50-500 1-2 WEEKS 100-5,000 2-3 WEEKS 500-10,000 3-4 WEEKS 1,000-50,000 4-5 WEEKS 10,000-100,000 5-6 WEEKS 15,000-200,000 6-8 WEEKS 10,000-100,000 2-3 MONTHS [facility] PREG QUANT HCGon 024 HCG QUANTITATIVE 50879 mIU/mL [facility] Comment on above: 5-50 0.2-1 WEEK 50-500 1-2 WEEKS 100-5,000 2-3 WEEKS 500-10,000 3-4 WEEKS 1,000-50,000 4-5 WEEKS 10,000-100,000 5-6 WEEKS 15,000-200,000 6-8 WEEKS 10,000-100,000 2-3 MONTHS [facility] PREG QUANT HCGon 024 HCG QUANTITATIVE 8911 mIU/mL [facility] Comment on above: 5-50 0.2-1 WEEK 50-500 1-2 WEEKS 100-5,000 2-3 WEEKS 500-10,000 3-4 WEEKS 1,000-50,000 4-5 WEEKS 10,000-100,000 5-6 WEEKS 15,000-200,000 6-8 WEEKS 10,000-100,000 2-3 MONTHS [facility] PREG QUANT HCGon 024 HCG QUANTITATIVE 4641 mIU/mL [facility] Comment on above: 5-50 0.2-1 WEEK 50-500 1-2 WEEKS 100-5,000 2-3 WEEKS 500-10,000 3-4 WEEKS 1,000-50,000 4-5 WEEKS 10,000-100,000 5-6 WEEKS 15,000-200,000 6-8 WEEKS 10,000-100,000 2-3 MONTHS [facility] PREG QUANT HCGon 01-20-2 024 HCG QUANTITATIVE 2241 mIU/mL [facility] Comment on above: 5-50 0.2-1 WEEK 50-500 1-2 WEEKS 100-5,000 2-3 WEEKS 500-10,000 3-4 WEEKS 1,000-50,000 4-5 WEEKS 10,000-100,000 5-6 WEEKS 15,000-200,000 6-8 WEEKS 10,000-100,000 2-3 MONTHS [facility] PREG QUANT HCGon 01-18-2 024 HCG QUANTITATIVE 884 mIU/mL [facility] Comment on above: 5-50 0.2-1 WEEK 50-500 1-2 WEEKS 100-5,000 2-3 WEEKS 500-10,000 3-4 WEEKS 1,000-50,000 4-5 WEEKS 10,000-100,000 5-6 WEEKS 15,000-200,000 6-8 WEEKS 10,000-100,000 2-3 MONTHS [facility] [place] IGP,APTIMA HPV,AGE GDLNon AGE GDLN ACOG TESTING Note . [facility] Comment on above: TESTS RESULT FLAG UN ITS REF RANGE LAB Clinician Provided Cytology Information Source.............Cervix;Endocervix No. of containers..01 ThinPrep Vial Age Algo ACOG Sylvia... 30 FLAG LEGEND: L-Low Normal,H-High Normal,LL-Alert Low,HH-Alert High <-Panic Low,>-Panic High,A-Abnormal,AA-Critical Abnormal Performed at: 01 =[address] [id number] Amber Tilley MD, HPV APTIMA Negative Negative [facility] Comment on above: This nucleic acid am plification test detects fourteen high- risk HPV types (16,18,31,33,35,39,45,51,52,56,58,59,66,68) without differentiation. Performed at: =[address] [id number] Menu Planner: Amber Tilley MD, Phone: [phone] Performed at: [address] [id number] Menu Planner: Amber Tilley MD, Phone: [phone] IGP, APTIMA HPV, RFX 16/18,[address] [facility] Comment on above: TESTS RESULT FLAG UN ITS REF RANGE LAB DIAGNOSIS: 02 NEGATIVE FOR INTRAEPITHELIAL LESION OR MALIGNANCY. REACTIVE CELLULAR CHANGES AND/OR REPAIR ARE PRESENT. Specimen adequacy: 02 Satisfactory for evaluation. Endocervical and/or squamous metaplastic cells (endocervical component) are present. Performed by: 02 Peggy Gandhi, Screw Machine Operator (ASCP) Electronically si... 02 Divya Hoffman MD, [...] <-Panic Low,>-Panic High,A-Abnormal,AA-Critical Abnormal Performed at: [address] [address] Amber Tilley MD, BRUSH-SPATULA CERVIX ENDOCERVIX [facility]INIS[facility] Cytology Cervical or vaginal smear or scraping studyon 12-10-2023 [facility] HCG ( test) Ql (U)o n 12-10-2023 Interpretation and review of laboratory results Normal [facility] Preg Test, Ur Negative [facility] Cameron 06-30-2023 L Specimen: [id number] Received: 07/01/23 Status: WEN [place] Num: [id number] Spec Type: Surgical Subm Dr: Orlin Castro Tissues: A Products of Conception - Spontaneous or Missed (POC) Procedures: HE/3, Gross/Micro L4 Age/ Patient Sex Location Account Attending Physician Shreya Marshall 32/F LABELL [id number] Orlin Castro SPEC NUM: [id number] RECD: 07/01/23 STATUS: WEN [place] NUM: [id number] [place]: 06/30/[address]: Orlin Castro ENTERED: 07/01/[address] [facility] DR: Rosey,Lab SPEC TYPE: Surgical DEPT: [...] spongy harman tissue consistent with villous tissue. Boom Stick Worker sections are submitted in A1?A3 to include the villous tissue in A1. Clinical history: Missed TW ---- Specimen: [id number] Received: 07/01/23 Status: WEN [place] Num: [id number] Spec Type: Surgical Subm Dr: Orlin Castro Tissues: A Products of Conception - Spontaneous or Missed (POC) Procedures: HE/3, Gross/Micro L4 ---- Patient: Shreya Marshall [id number] (Continued) ---- Specimen: [id number] Received: 07/01/23 (Continued) Signed (signature on file) Shen Virgen MD 07/02/23 1859 ---- Specimen: [id number] Received: 07/01/23 Status: WEN [place] Num: [id number] Spec Type: Surgical Subm Dr: Orlin Castro Tissues: A Products of Conception - Spontaneous or Missed (POC) Procedures: Meghan BLAKE/Maksim L4 ---- Patient: Shreya Marshall [id number] (Continued) ---- Specimen: [id number] Received: 07/01/23 (Continued) CPT Codes 20725 ---- ---- Specimen: [id number] Received: 07/01/23 Status: WEN [place] Num: [id number] Spec Type: Surgical Subm Dr: Orlin Castro Tissues: A Products of Conception - Spontaneous or Missed (POC) Procedures: Meghan BLAKE/Maksim L4 ---- Patient: Shreya Marshall [id number] (Continued) ---- Signed (signature on file) Shen Virgen MD 07/02/23 1859 [facility] Covid-19 PCR (CVDTBH)on 01-25 SARS-CoV-2 (COVID-19) RNA JUAN+probe Ql (Unsp spec) Not detected Normal NOT DETECTED [facility] Comment on above: Result Comment: This test is not yet approved or cleared by the [place] FDA. When there are no FDA-approved or cleared tests available, and other criteria are met, FDA can make tests available under an emergency access mechanism called an Emergency Use Authorization (EUA). The EUA for this test is supported by the Pattern Duplicator of Health and Human Service's (HHS's) declaration [...] VDTB #### [facility] [address] [place] [address] Dr. Luis Virgen INFLUENZA A AND B AGon 02-[facility] BELOW Normal [facility] Comment on above: Result Comment: Nega tive for Flu B protein antigen. Infection due to Flu B cannot be ruled out. Flu B antigen in the sample may be below the detection limit of the test. Performed By: #### I NFLUAB #### [facility] [address] [place] [address] Dr. Luis Virgen INFLUENZA A AG Positive Abnormal NEGATIVE SEE COMMENT [facility] Comment on above: Performed By: #### I NFLUAB #### [facility] [address] [place] [address] Dr. Luis Virgen INFLUENZA B AG Negative Normal NEGATIVE SEE COMMENT [facility] Comment on above: Performed By: #### I NFLUAB #### [facility] [address] [place] [address] Dr. Luis Virgen XR CHEST 1 Von 02-20-2022 XR CHEST 1 V EXAM: CHEST 1 VIEW HISTORY: COUGH TECHNIQUE: Chest, one view. COMPARISON: None. FINDINGS: Lungs are clear. No focal consolidation, pleural effusion, or pneumothorax. Pulmonary vasculature is within normal limits. Cardiomediastinal silhouette is normal. IMPRESSION: 1. No acute cardiopulmonary disease. Electronically authenticated by: PHOEBE ALFARO Date: 2022-02-20 17:46 Normal [facility] PAP ACOG PANEL 2: 30 to 65on 11-13-2021 . . Normal [facility] Comment on above: Result Comment: Perf ormed at: WB Performed By: #### [id number] #### [facility] [address] [place] [address] Dr. Luis Virgen Age Gdln ACOG Testing 30-65 Normal [facility] Comment on above: Performed By: #### [id number] #### [facility] [address] [place] [address] Dr. Luis Virgen DIAGNOSIS: Comment Normal [facility] Comment on above: Result Comment: NEGA TIVE FOR INTRAEPITHELIAL LESION OR MALIGNANCY. Performed at: WB Performed By: #### [id number] #### [facility] [address] [address] [address] Luis Virgen HPV Aptima Negative Normal Negative [facility] Comment on above: Result Comment: This nucleic acid amplification test detects fourteen high-risk HPV types (16,18,31,33,35,39,45,51,52,56,58,59,66,68) without differentiation. Performed at: =G Performed By: #### [id number] #### [facility] [address] [address] [address] Luis Virgen Methodology: Comment Normal [facility] Comment on above: Result Comment: This liquid based ThinPrep(R) pap test was screened with the use of an image guided system. Performed at: WB Performed By: #### 4 [id number] #### [facility] [address] [place] [address] Dr. Luis Virgen Note: Comment Normal [facility] Comment on above: Result Comment: The Pap smear is a screening test designed to aid in the detection of premalignant and malignant conditions of the uterine cervix. It is not a diagnostic procedure and should not be used as the sole means of detecting cervical cancer. Both false-positive and false-negative reports do occur. . Performed at: WB Performed By: #### [id number] #### [facility] [address] [place] [address] Dr. Luis Virgen Performed by: Comment Normal [facility] Comment on above: Result Comment: Maureen Del Cid, Screw Machine Operator (ASCP) Performed at: WB Performed By: #### [id number] #### [facility] [address] [place] [address] Dr. Luis Virgen Specimen adequacy: Comment Normal [facility] Comment on above: Result Comment: Sati sfactory for evaluation. Endocervical and/or squamous metaplastic cells (endocervical component) are present. Performed at: WB Performed By: #### [id number] #### [facility] [address] [place] [address] Dr. Luis Virgen URon 08-20-2021 , QUAL Negative Normal NEGATIVE [facility] Comment on above: Performed By: #### P REGU #### [facility] [address] [place] [address] Dr. Luis Virgen CBC AUTO DIFFon 08-06-2021 BASO # 0.0 103/ul Normal 0.0-0.1 [facility] Comment on above: Performed By: #### C BC #### [facility] [address] [place] [address] Dr. Luis Virgen Basophils/100 WBC (Bld) 0.3 % Normal 0.2-2.0 [facility] Comment on above: Performed By: #### C BC #### [facility] [address] [place] [address] Dr. Luis Virgen EO # 0.0 103/ul Normal 0.0-0.7 [facility] Comment on above: Performed By: #### C BC #### [facility] [address] [place] [address] Dr. Luis Virgen Eosinophils/100 WBC (Bld) 0.3 % Critically low 0.9-7.0 [facility] Comment on above: Performed By: #### C BC #### [facility] [address] [place] [address] Dr. Luis Virgen Erythrocyte distribution width (RBC) [Ratio] 12.6 % Normal 11.0-15.0 [facility] Comment on above: Performed By: #### C BC #### [facility] [address] [place] [address] Dr. Luis Virgen Hematocrit (Bld) [Volume fraction] 41.5 % Normal 36.0-48.0 [facility] Comment on above: Performed By: #### C BC #### [facility] [address] [place] [address] Dr. Luis Virgen Hemoglobin (Bld) [Mass/Vol] 13.5 g/dL Normal 12.0-16.0 [facility] Comment on above: Performed By: #### C BC #### [facility] [address] [place] [address] Dr. Luis Virgen IG # 0.03 10e3/ul Normal 0.00-0.03 [facility] Comment on above: Performed By: #### C BC #### [facility] [address] [place] [address] Dr. Luis Virgen IG % 0.4 % Normal 0.0-0.5 [facility] Comment on above: Performed By: #### C BC #### [facility] [address] [place] [address] Dr. Luis Virgen LYMPH # 2.4 103/ul Normal 1.2-3.8 [facility] Comment on above: Performed By: #### C BC #### [facility] [address] [place] [address] Dr. Luis Virgen Lymphocytes/100 WBC (Bld) 31.8 % Normal 20.5-60.0 [facility] Comment on above: Performed By: #### C BC #### [facility] [address] [place] [address] Dr. Luis Virgen MANUAL DIFF REQ NO Normal [facility] Comment on above: Performed By: #### C BC #### [facility] [address] [place] [address] Dr. Luis Virgen MCH (RBC) [Entitic mass] 30.5 pg Normal 26.7-34.0 [facility] Comment on above: Performed By: #### C BC #### [facility] [address] [place] [address] Dr. Luis Virgen MCHC (RBC) [Mass/Vol] 32.5 g/dL Normal 29.9-35.2 [facility] Comment on above: Performed By: #### C BC #### [facility] [address] [place] [address] Dr. Luis Virgen MCV (RBC) [Entitic vol] 93.9 fL Normal 81.0-99.0 [facility] Comment on above: Performed By: #### C BC #### [facility] [address] [place] [address] Dr. Luis Virgen MONO # 0.6 103/ul Normal 0.3-0.8 [facility] Comment on above: Performed By: #### C BC #### [facility] [address] [place] [address] Dr. Luis Virgen Monocytes/100 WBC (Bld) 7.4 % Normal 1.7-12.0 [facility] Comment on above: Performed By: #### C BC #### [facility] [address] [place] [address] Dr. Luis Virgen NEUT # 4.5 103/ul Normal 1.4-6.5 [facility] Comment on above: Performed By: #### C BC #### [facility] [address] [place] [address] Dr. Luis Virgen Neutrophils/100 WBC (Bld) 59.8 % Normal 43.0-75.0 [facility] Comment on above: Performed By: #### C BC #### [facility] [address] [place] [address] Dr. Lius Virgen Platelet mean volume (Bld) [Entitic vol] 10.0 fL Normal 9.5-13.5 [facility] Comment on above: Performed By: #### C BC #### [facility] [address] [place] [address] Dr. Luis Virgen PLT 337 103/ul Normal 150-450 [facility] Comment on above: Performed By: #### C BC #### [facility] [address] [place] [address] Dr. Luis Virgen RBC 4.42 106/ul Normal 4.20-5.40 [facility] Comment on above: Performed By: #### C BC #### [facility] [address] [place] [address] Dr. Luis Virgen WBC 7.6 103/ul Normal 4.0-11.0 [facility] Comment on above: Performed By: #### C BC #### [facility] [address] [place] [address] Dr. Luis Virgen FREE T4on 08-06-2021 Free T4 [Mass/Vol] 0.91 ng/dL Normal 0.76-1.46 [facility] Comment on above: Performed By: #### F T4 #### [facility] [address] [place] [address] Dr. Luis Virgen LIPID PROFILEon 08-06-2021 CHOL-HDL RATIO NORM SEE BELOW Normal [facility] Comment on above: Result Comment: 3.3 - 4.4 LOW RISK 4.4 - 7.1 AVERAGE RISK 7.1 - 11.0 MODERATE RISK >11.0 HIGH RISK Performed By: #### C MP, TSH, LIPID #### [facility] [address] [place] [address] Dr. Luis Virgen Cholesterol [Mass/Vol] 154 mg/dL Normal <=200 [facility] Comment on above: Performed By: #### C MP, TSH, LIPID #### [facility] [address] [place] [address] Dr. Luis Virgen Cholesterol in HDL [Mass/Vol] 35 mg/dL Critically low 40-60 [facility] Comment on above: Performed By: #### C MP, TSH, LIPID #### [facility] [address] [address] [address] Luis Virgen Cholesterol in LDL [Mass/Vol] 80.8 mg/dL Normal [facility] Comment on above: Performed By: #### C MP, TSH, LIPID #### [facility] [address] [address] [address] Luis Virgen Cholesterol.total/C holesterol in HDL [Mass ratio] 4.4 {ratio} Normal [facility] Comment on above: Performed By: #### C MP, TSH, LIPID #### [facility] [address] [address] [address] Luis Virgen HDL NORMAL > or = 60 mg/dl - LO W CARDIOVASCULAR RISK <40 mg/dl - HIGH CARDIOVASCULAR RISK Normal [facility] Comment on above: Performed By: #### C MP, TSH, LIPID #### [facility] [address] [place] [address] Dr. Luis Virgen LDL CALC NORMAL SEE BELOW Normal [facility] Comment on above: Result Comment: <100 mg/dl OPTIMAL 100 - 129 mg/dl NEAR OR ABOVE OPTIMAL 130 - 159 mg/dl BORDERLINE HIGH 160 - 189 mg/dl HIGH >190 mg/dl VERY HIGH Performed By: #### C MP, TSH, LIPID #### [facility] [address] [place] [address] Dr. Luis Virgen Triglyceride [Mass/Vol] 191 mg/dL Critically high <=150 [facility] Comment on above: Performed By: #### C MP, TSH, LIPID #### [facility] [address] [place] [address] Dr. Luis Virgen VLDL CALC 38.2 mg/dL Normal [facility] Comment on above: Performed By: #### C MP, TSH, LIPID #### [facility] [address] [place] [address] Dr. Luis Virgen PROF 14(COMP METB)on 022 Albumin [Mass/Vol] 4.1 g/dL Normal 3.4-5.0 [facility] Comment on above: Performed By: #### C MP, TSH, LIPID #### [facility] [address] [address] [address] Luis Virgen Albumin/Globulin [Mass ratio] 1.2 {ratio} Normal [facility] Comment on above: Performed By: #### C MP, TSH, LIPID #### [facility] [address] [address] [address] Luis Virgen ALP [Catalytic activity/Vol] 73 U/L Normal 46-116 [facility] Comment on above: Performed By: #### C MP, TSH, LIPID #### [facility] [address] [address] [address] Luis Virgen ALT [Catalytic activity/Vol] 24 U/L Normal 14-59 [facility] Comment on above: Performed By: #### C MP, TSH, LIPID #### [facility] [address] [address] [address] Luis Virgen Anion gap [Moles/Vol] 13.2 mmol/L Normal [facility] Comment on above: Performed By: #### C MP, TSH, LIPID #### [facility] [address] [address] [address] Luis Virgen AST [Catalytic activity/Vol] 11 U/L Critically low 15-37 [facility] Comment on above: Performed By: #### C MP, TSH, LIPID #### [facility] [address] [address] [address] Luis Virgen Bilirubin [Mass/Vol] 0.8 mg/dL Normal 0.2-1.0 [facility] Comment on above: Performed By: #### C MP, TSH, LIPID #### [facility] [address] [address] [address] Luis Virgen Calcium [Mass/Vol] 8.9 mg/dL Normal 8.5-10.1 [facility] Comment on above: Performed By: #### C MP, TSH, LIPID #### [facility] [address] [address] [address] Luis Virgen Chloride [Moles/Vol] 103 mmol/L Normal 98-107 [facility] Comment on above: Performed By: #### C MP, TSH, LIPID #### [facility] [address] [address] [address] Luis Virgen CO2 [Moles/Vol] 27.5 mmol/L Normal 21.0-32.0 [facility] Comment on above: Performed By: #### C MP, TSH, LIPID #### [facility] [address] [address] [address] Luis Virgen Creatinine [Mass/Vol] 0.71 mg/dL Normal 0.55-1.02 [facility] Comment on above: Performed By: #### C MP, TSH, LIPID #### [facility] [address] [address] [address] Luis Virgen EGFR-AF SLOVAK >60 Normal >=60 [facility] Comment on above: Performed By: #### C MP, TSH, LIPID #### [facility] [address] [address] [address] Luis Virgen EGFR-NON AF SLOVAK >60 Normal >=60 [facility] Comment on above: Performed By: #### C MP, TSH, LIPID #### [facility] [address] [address] [address] Luis Virgen Globulin (S) [Mass/Vol] 3.5 g/dL Normal [facility] Comment on above: Performed By: #### C MP, TSH, LIPID #### [facility] [address] [address] [address] Luis Virgen Glucose [Mass/Vol] 101 mg/dL Normal 74-106 [facility] Comment on above: Performed By: #### C MP, TSH, LIPID #### [facility] [address] [address] [address] Luis Virgen Potassium [Moles/Vol] 4.7 mmol/L Normal 3.5-5.1 [facility] Comment on above: Performed By: #### C MP, TSH, LIPID #### [facility] [address] [address] [address] Luis Virgen Protein [Mass/Vol] 7.6 g/dL Normal 6.4-8.2 [facility] Comment on above: Performed By: #### C MP, TSH, LIPID #### [facility] [address] [address] [address] Luis Virgen Sodium [Moles/Vol] 139 mmol/L Normal 136-145 [facility] Comment on above: Performed By: #### C MP, TSH, LIPID #### [facility] [address] [place] [address] Dr. Luis Virgen Urea nitrogen [Mass/Vol] 9.0 mg/dL Normal 7.0-18.0 [facility] Comment on above: Performed By: #### C MP, TSH, LIPID #### [facility] [address] [place] [address] Dr. Luis Virgen Urea nitrogen/Creatinine [Mass ratio] 12.7 mg/mg Normal [facility] Comment on above: Performed By: #### C MP, TSH, LIPID #### [facility] [address] [place] [address] Dr. Luis Virgen TSHon 08-06-2021 TSH 0.924 uIU/mL Normal 0.358-3.740 [facility] Comment on above: Performed By: #### C MP, TSH, LIPID #### [facility] [address] [place] [address] Dr. Luis Virgen TSH RANGE SEE BELOW Normal [facility] Comment on above: Result Comment: <0.3 4 UIU/ml HYPERTHYROID 0.34-5.60 UIU/ml EUTHYROID >5.60 UIU/ml HYPOTHYROID Performed By: #### C MP, TSH, LIPID #### [facility] [address] [place] [address] Dr. Luis Virgen Vital Signs Date Time Vital Sign Value Performing Clinician Quinn elizondo 07-21-2024 14:30-040 Body mass index (BMI) [Ratio] 33.14 kg/m2 Vidya DESAI Work Phone: [facility] 07-21-2024 14:30-399 Body weight 79.56 kg Vidya DESAI Work Phone: [facility] 07-21-2024 14:30-0400 Diastolic blood pressure 74 mm[Hg] Vidya DESAI Work Phone: [facility] 07-21-2024 14:30-0400 Systolic blood pressure 110 mm[Hg] Vidya Jackson PA Work Phone: [facility] 07-06-2024 14:09-0400 Body mass index (BMI) [Ratio] 32.69 kg/m2 Orlin Gloria DO Work Phone: [facility] 07-06-2024 14:09-0400 Body weight 78.47 kg Orlin Gloria DO Work Phone: [facility] 07-06-2024 14:09-0400 Diastolic blood pressure 72 mm[Hg] Orlin Gloria DO Work Phone: [facility] 07-06-2024 14:09-0400 Systolic blood pressure 118 mm[Hg] Orlin Gloria DO Work Phone: [facility] 06-16-2024 14:05-0400 Body mass index (BMI) [Ratio] 32.12 kg/m2 Ximena Mehul CLINICAL NURSING DIRECTOR Work Phone: [facility] 06-16-2024 14:05-0400 Body weight 77.11 kg Ximena Mehul CLINICAL NURSING DIRECTOR Work Phone: [facility] 06-16-2024 14:05-0400 Diastolic blood pressure 70 mm[Hg] Ximena Mehul CLINICAL NURSING DIRECTOR Work Phone: [facility] 06-16-2024 14:05-0400 Systolic blood pressure 114 mm[Hg] Ximena Mehul CLINICAL NURSING DIRECTOR Work Phone: [facility] 04-07-2024 15:02-0500 Body mass index (BMI) [Ratio] 30.8 kg/m2 Vidya DESAI Work Phone: [facility] 04-07-2024 15:02-0500 Body weight 73.94 kg Vidya DESAI Work Phone: [facility] 04-07-2024 15:02-0500 Diastolic blood pressure 62 mm[Hg] Vidya DESAI Work Phone: [facility] 04-07-2024 15:02-0500 Systolic blood pressure 116 mm[Hg] Vidya DESAI Work Phone: [facility] 03-10-2024 14:45-0500 Body mass index (BMI) [Ratio] 30.63 kg/m2 Orlin Gloria DO Work Phone: [facility] 03-10-2024 14:45-0500 Body weight 73.54 kg Orlin Gloria DO Work Phone: [facility] 03-10-2024 14:45-0500 Diastolic blood pressure 66 mm[Hg] Orlin Gloria DO Work Phone: [facility] 03-10-2024 14:45-0500 Systolic blood pressure 110 mm[Hg] Orlin Gloria DO Work Phone: [facility] 02-11-2024 10:34-0500 Body mass index (BMI) [Ratio] 30.69 kg/m2 Nom Nurse [facility] 02-11-2024 10:34-0500 Body weight 73.66 kg [facility] Nurse [facility] 02-11-2024 10:34-0500 Diastolic blood pressure 77 mm[Hg] [facility] Nurse [facility] 02-11-2024 10:34-0500 Systolic blood pressure 110 mm[Hg] [facility] Nurse [facility] 12-10-2023 13:12-0400 Body mass index (BMI) [Ratio] 30.76 kg/m2 Orlin Gloria DO Work Phone: [facility] 12-10-2023 13:12-0400 Body weight 73.85 kg Orlin Gloria DO Work Phone: [facility] 12-10-2023 13:12-0400 Diastolic blood pressure 78 mm[Hg] Orlin Gloria DO Work Phone: [facility] 12-10-2023 13:12-0400 Systolic blood pressure 116 mm[Hg] Orlin Gloria DO Work Phone: [facility] Encounters Encounter Date Encounter Type Care Provider Facility Start: 07-23-2024 End: 07-23-2024 Clinisync Result Encounter Generic External Data Provider [facility] Unsolicited Start: 07-23-2024 End: 07-23-2024 Clinisync Result Encounter Generic External Data Provider [facility] Unsolicited Start: 07-21-2024 End: 07-21-2024 Office outpatient visit 15 minutes Vidya DESAI Work Phone: [facility] Comment on above: Third trimester preg eileen; 30 weeks gestation of ; History of gestational diabetes Start: 07-21-2024 End: 07-21-2024 ambulatory VIDYA JACKSON Not Available Start: 07-06-2024 End: 07-06-2024 Office outpatient visit 15 minutes Orlin Gloria DO Work Phone: [facility] Comment on above: Third trimester [...] 06-16-2024 End: 06-16-2024 Bamboo flowsheet Ximena Carver CLINICAL NURSING DIRECTOR Work Phone: [facility] Start: 06-16-2024 End: 06-17-2024 Bamboo flowsheet Ximena Carver CLINICAL NURSING DIRECTOR Work Phone: [facility] Start: 06-16-2024 [...] [facility] Start: 02-27-2024 End: 02-27-2024 ambulatory Orlinosman Castro [facility] Work Phone: Start: 02-27-2024 End: 02-27-2024 Departed Referred Orlin Gloria DO Work Phone: [facility] Start: 02-27-2024 End: 02-27-2024 Clinisync Result Encounter Generic External Data Provider [facility] External Department Unsolicited Start: 02-27-2024 End: 02-27-2024 Clinisync Result Encounter Generic External Data Provider [facility] External Department Unsolicited Start: 02-25-2024 End: 02-26-2024 Refill Анна Ha CLINICAL NURSING DIRECTOR Work Phone: [facility] Comment on [...] preventive med est patient 18-39 yrs Orlin Castro DO Work Phone: [facility] Comment on above: Well woman exam with routine gynecological exam; Missed menses Start: 09-01-2023 Patient encounter status Orlin Castro DO Work Phone: [facility] Start: 09-01-2023 End: 09-01-2023 ambulatory АННА HA Not Available Start: 06-30-2023 End: 06-30-2023 ambulatory MD Dar Brody Work Phone: [facility] Work Phone: Start: 06-30-2023 End: 06-30-2023 Departed Referred MD Dar Brody Work Phone: [facility] Start: 02-20-2022 End: 02-20-[address]MIN[address]ATIVE ENGINEER АННА MONTY Facility:[facility] Start: 11-06-2021 End: 11-06-[address] ORLIN CASTRO Facility:[facility] Start: 08-20-2021 End: 08-20-[address] ADMIN[address]RATIVE ENGINEER АННА AICHCATAZ Facility:[facility] Start: 08-06-2021 End: 08-07-[address] ADMINISTRATIVE ENGINEER АННА MONTY Facility:[facility] Procedures Date Procedure Procedure Detail Performing Clinician Start: 07-23-2024 GLUCOSE TOLERANCE 3 HOUR Orlin Castro DO Work Phone: Start: 07-06-2024 Urnls dip stick/tabl et rgnt non-auto w/o micrscp Orlin Castro DO Work Phone: Start: 07-05-2024 ALL CBC WITH AUTO DIFF Ximena Carver CLINICAL NURSING DIRECTOR Work Phone: Start: 06-16-2024 RECURRENT VAGINITIS (HTRX) Orlin Castro DO Work Phone: Start: 06-16-2024 Urnls dip stick/tabl et rgnt non-auto w/o micrscp Ximena Carver NP Work Phone: Start: 04-10-2024 GLUCOSE 1 HOUR [...] in Cervix by Cyto stain Ximena Carver CLINICAL NURSING DIRECTOR Work Phone: Start: 12-10-2023 Cytp cerv/vag auto t hin layer prep mnl screen Orlin Castro DO Work Phone: Start: 11-25-2022 Microscopic observat ion [Identifier] in Cervix by Cyto stain Orlin Castro DO Work Phone: Plan of Treatment Date Care Activity Detail Author Start: 12-09-2028 Screening for malign ant neoplasm of cervix [facility] Start: 11-25-2025 Screening for malign ant neoplasm of cervix [facility] Start: 12-15-2024 End: 12-15-2024 Patient encounter procedure 12/15/2024 3:00 PM EDT Office Visit [facility] [address] [place] [address] Orlin Castro, [address] [place], [place] [id number] [facility] Start: 09-07-2024 End: 09-07-2024 Patient encounter procedure 09/07/2024 1:00 PM EDT Office Visit [facility] [address] [place] [address] Анна Ha NP [address] [place] [address] [facility] Start: 08-04-2024 End: 08-04-2024 Patient encounter procedure 08/04/2024 2:20 PM EDT Routine [facility] [address] [place] [address] Orlin Castro, [address] [place], [place] [id number] [facility] Start: 07-21-2024 End: 07-21-2024 Patient encounter procedure 07/21/2024 2:20 PM EDT Routine [facility] [address] [place] [address] Vidya Jackson PA [address] [place] [address] [facility] Start: 07-21-2024 End: 01-21-2025 US biophysical profile w non stress test US biophysical profile w non stress test Imaging Routine History of gestational diabetes Expected: 07/21/2024 (Approximate), Expires: 01/21/2025 [facility] Work Phone: Comment on above: Expected: 07/21/2024 (Approximate), Expires: 01/21/2025 Start: 07-21-2024 End: 11-21-2024 US for US OB follow up transabdominal approach Imaging Routine History of gestational diabetes Expected: 07/21/2024, Expires: 11/21/2024 [facility] [email or web address] Comment on above: Expected: 07/21/2024 , Expires: 11/21/2024 Start: 07-06-2024 End: 07-06-2025 Measurement of glucose 1 hour after glucose challenge for glucose tolerance test Glucose tolerance, 1 hour Lab Routine Diabetes mellitus screening Expected: 07/06/2024 (Approximate), Expires: 07/06/2025 [facility] [email or web address] Work Phone: Comment on above: Expected: 07/06/2024 (Approximate), Expires: 07/06/2025 Start: 07-06-2024 End: 11-06-2024 US for US OB follow up transabdominal approach Imaging Routine SGA (small for gestational age) Expected: 07/06/2024, Expires: 11/06/2024 [facility] [email or web address] Comment on above: Expected: 07/06/2024 , Expires: 11/06/2024 Start: 07-06-2024 End: 07-06-2024 Patient encounter procedure 07/06/2024 1:50 PM EDT Routine [facility] [address] [place] [address] Orlin Castro DO [address] [place], [place] [id number] [facility] Start: 07-06-2024 End: 07-06-2024 Professional / ancillary services management 07/06/2024 1:30 PM EDT Ancillary Procedure [facility] [address] [place] [address] [facility] Start: 06-16-2024 End: 06-16-2025 CBC panel - Blood by Automated count CBC Lab Routine Diabetes mellitus screening Expected: 06/16/2024 (Approximate), Expires: 06/16/2025 [facility] Comment on above: Expected: 06/16/2024 (Approximate), Expires: 06/16/2025 Start: 06-16-2024 End: 06-16-2025 Measurement of glucose 1 hour after glucose challenge for glucose tolerance test Glucose tolerance, 1 hour Lab Routine Diabetes mellitus screening Expected: 06/16/2024 (Approximate), Expires: 06/16/2025 [facility] Comment on above: Expected: 06/16/2024 (Approximate), Expires: 06/16/2025 Start: 06-16-2024 End: 10-16-2024 US for US OB follow up transabdominal approach Imaging Routine Antepartum multigravida of advanced maternal age Expected: 06/16/2024, Expires: 10/16/2024 [facility] Work Phone: Comment on above: Expected: 06/16/2024 , Expires: 10/16/2024 Start: 06-16-2024 End: 06-16-2024 Patient encounter procedure 06/16/2024 1:20 PM EDT Routine [facility] [address] [facility] [place] [address] Ximena Carver, VÍCTOR [address] [place] [place] [phone] Arrived [facility] Comment on above: Arrived Start: 05-10-2024 End: 05-10-2024 Patient encounter procedure 05/10/2024 2:40 PM EDT Routine [facility] [address] [facility] [place] [phone] Orlin Castro, DO [address] [place] [place] [address] [facility] Start: 05-10-2024 End: 05-10-2024 Professional / ancillary services management 05/10/2024 1:30 PM EDT Ancillary Procedure [facility] [address] [facility] [place] [address] [facility] Start: 04-07-2024 End: 04-07-2024 Patient encounter procedure [facility] Comment on above: Arrived Start: 04-07-2024 End: 05-05-2024 Alpha fetoprotein, maternal Alpha fetoprotein, maternal Lab Routine Need for maternal serum alpha-protein (MSAFP) screening Expected: 04/07/2024 (Approximate), Expires: 05/05/2024 [facility] Comment on above: Expected: 04/07/2024 (Approximate), Expires: 05/05/2024 Start: 04-07-2024 End: 04-07-2025 Measurement of glucose 1 hour after glucose challenge for glucose tolerance test Glucose tolerance, 1 hour Lab Routine Diabetes mellitus screening Expected: 04/07/2024 (Approximate), Expires: 04/07/2025 [facility] Work Phone: Comment on above: Expected: 04/07/2024 (Approximate), Expires: 04/07/2025 Start: 04-07-2024 End: 04-07-2025 US for US OB 14+ weeks anatomy scan Imaging Routine Screening, , for anatomic survey Expected: 04/07/2024, Expires: 04/07/2025 [facility] Comment on above: Expected: 04/07/2024 , Expires: 04/07/2025 Start: 03-10-2024 End: 03-10-2024 Patient encounter procedure 03/10/2024 2:20 PM EST Routine [facility] [address] [place] [phone] Orlin Castro, [address] [place] [address] [facility] Start: 03-02-2024 End: 03-02-2024 Patient encounter procedure 03/02/2024 9:40 AM EST Office Visit [facility] [address] [place] [address] Анна Ha, VÍCTOR [address] [place] [phone] [facility] Start: 02-27-2024 Urine culture [facility] Start: 02-27-2024 Bacteria identified in Urine by Culture Urine Culture [facility] Start: 02-11-2024 End: 02-10-2025 ABO/Rh ABO/Rh Lab Routine Missed menses , unspecified gestational age Expected: 02/11/2024 (Approximate), Expires: 02/10/2025 [facility] Comment on above: Expected: 02/11/2024 (Approximate), Expires: 02/10/2025 Start: 02-11-2024 End: 02-10-2025 Blood type and Indirect antibody screen panel - Blood Type and screen Lab Routine Missed menses , unspecified gestational age Expected: 02/11/2024 (Approximate), Expires: 02/10/2025 [facility] Work Phone: Comment on above: Expected: 02/11/2024 (Approximate), Expires: 02/10/2025 Start: 02-11-2024 End: 02-10-2025 Drugs of abuse panel - Urine by Screen method Rapid drug screen, urine Lab Routine , unspecified gestational age Encounter for supervision of normal first in first trimester Expected: 02/11/2024 (Approximate), Expires: 02/10/2025 [facility] Comment on above: Expected: 02/11/2024 (Approximate), Expires: 02/10/2025 Start: 02-11-2024 End: 02-10-2025 US Pelvis transvaginal US OB transvaginal Imaging Routine Missed menses Expected: 02/11/2024 (Approximate), Expires: 02/10/2025 [facility] Comment on above: Expected: 02/11/2024 (Approximate), Expires: 02/10/2025 Start: 02-11-2024 End: 02-11-2024 ambulatory 02/11/2024 10:00 AM EST Initial [facility] [address] [place] [address] [facility] Start: 02-11-2024 End: 02-11-2024 Professional / ancillary services management 02/11/2024 9:30 AM EST Ancillary Procedure [facility] [address] [place] [address] [facility] Start: 2018 Screening for malign ant neoplasm of cervix HPV/Cotest [facility] Bacteria identified in Urine by Culture Urine culture Microbiology Routine Missed menses Ordered: 02/11/2024 [facility] Comment on above: Ordered: 02/11/2024 CBC W Auto Different ial panel - Blood CBC and differential Lab Routine Missed menses , unspecified gestational age Ordered: 02/11/2024 [facility] Comment on above: Ordered: 02/11/2024 CHLAMYDIA TRACHOMATI S (GENITO/STI) CHLAMYDIA TRACHOMATIS (GENITO/STI) Lab Routine Screen for STD (sexually transmitted disease) Ordered: 06/16/2024 [facility] Comment on above: Ordered: 06/16/2024 Cytology Cervical or vaginal smear or scraping study Pap Smear Pathology and Cytology Routine Well woman exam with routine gynecological exam Ordered: 12/10/2023 [facility] Work Phone: Comment on above: Ordered: 12/10/2023 Hemoglobin A1c/Hemoglobin.total in Blood Hemoglobin A1c Lab Routine Missed menses , unspecified gestational age Ordered: 02/11/2024 [facility] Comment on above: Ordered: 02/11/2024 Hepatitis B virus surface Ag [Presence] in Serum or Plasma by Immunoassay Hepatitis B surface antigen Lab Routine Missed menses , unspecified gestational age Ordered: 02/11/2024 [facility] Comment on above: Ordered: 02/11/2024 Hepatitis C virus Ab [Presence] in Serum or Plasma by Immunoassay Hepatitis C antibody Lab Routine Missed menses , unspecified gestational age Ordered: 02/11/2024 [facility] Comment on above: Ordered: 02/11/2024 HIV-1/HIV-2 antigen/antibody combination immunoassay HIV-1 and HIV-2 antibodies Lab Routine Missed menses , unspecified gestational age Ordered: 02/11/2024 [facility] Comment on above: Ordered: 02/11/2024 Human papilloma viru s DNA [Presence] in Unspecified specimen by Probe with amplification HPV DNA probe, amplified Microbiology Routine Well woman exam with routine gynecological exam Ordered: 12/10/2023 [facility] Comment on above: Ordered: 12/10/2023 Neisseria gonorrhoea e DNA [Presence] in Unspecified specimen by JUAN with probe detection Neisseria gonorrhea DNA probe, direct Lab Routine Screen for STD (sexually transmitted disease) Ordered: 06/16/2024 [facility] Comment on above: Ordered: 06/16/2024 Reagin Ab [Presence] in Serum by RPR RPR Lab Routine Missed menses , unspecified gestational age Ordered: 02/11/2024 [facility] Comment on above: Ordered: 02/11/2024 Rubella antibody, IgG Rubella an tibody, IgG Lab Routine Missed menses , unspecified gestational age Ordered: 02/11/2024 [facility] Comment on above: Ordered: 02/11/2024 SURESWAB(R) ADVANCED VAGINITIS PLUS, TMA SURESWAB(R) ADVANCED VAGINITIS PLUS, TMA Pathology and Cytology Routine Screen for STD (sexually transmitted disease) Ordered: 06/16/2024 [facility] Work Phone: Comment on above: Ordered: 06/16/2024 Immunizations Immunization Date Immunization Notes Care Provider Joan ornelas 12-08-2017 influenza, seasonal, injectable, preservative free Orlin Castro DO Work Phone: [facility] Payers Date Payer Category Payer Self-pay [id number] 2023 Managed Care HMO (unspecified) [employer] [id number] 2023 Private Health Insurance [id number] 2022 Medicaid (Managed Care) [employer] [id number] 1988 Unknown [id number] .[id number]. 2.59 1988 Unknown [id number] .1.572281.3.579. 2.59 1988 Unknown [id number] .1.095454.3.579. 2.59 1988 Unknown [id number] .1.709901.3.579. 2.59 1988 Unknown [id number] .1.444156.3.579. 2.1259 1988 Unknown [id number] 04.11.830.1.946585.3.579. 2.1258 1988 Unknown [id number] 2.16.840.1.362521.3.579. 2.1258 1988 Unknown [id number] 2.16.840.1.798694.3.579. 2.1258 1988 Unknown [id number] 2.16840.1.403028.3.579. 2.1258 1988 Unknown [id number] 2.16840.1.838945.3.579. 2.1258 1988 Unknown [id number] 2.16840.1.867256.3.579. 2.1258 1988 Unknown [id number] 2.16840.1.008765.3.579. 2.1258 1988 Unknown [id number] 2.840.1.391884.3.579. 2.1258 1988 Unknown [id number] 2.16840.1.307316.3.579. 2.1258 1988 Unknown [id number] 2.16.840.1.737930.3.579. 2.9 1959 Unknown [id number] Private Health Insurance [facility] [employer] [id number] Unknown [id number] 2.16840.1.274364.3.579. 2.531 Unknown [id number] 2.16.840.1.541244.3.579. 2.531 Social History Date Type Detail Facility Start: 03-05-2019 End: 03-05-2019 Tobacco smoking status LAIS Never smoked tobacco (finding) [facility] Start: 1990 Sex Assigned At Female [facility] Start: 10-30-2022 Tobacco smoking status LAIS Ex-smoker [facility] End: 02-24-2014 History of tobacco use Current smoker [facility] End: 02-24-2014 History of tobacco use [...] to any clubs or organizations such as taoism groups, unions, [employer] One or athletic groups, or school groups? Yes [...] [facility] Start: 02-28-2024 Sex Female (finding) [facility] Goals Date Patient Goal Desired Activity /State [...] abnormal pap smear PAP SMEAR 03/07/2014 LGSIL MA MEDICATION MANAGEMENT Drug Therapy -SVT TONSILLECTOMY 1992 [...] of: GISELLE Cramer documented in this encounter [facility] 07-06-2024 History of Present illness Narrative Reason [...] for wellness examination in adult 09/01/2023 Depression ([facility]) 09/01/2023 Resolved Ambulatory Problems Diagnosis Date Noted Major depressive disorder, single episode, mild (HCC) ([facility]) 09/01/2023 Past Medical History: Diagnosis Date Abnormal Pap smear of cervix 2009 Contraception management Current mild episode of major depressive disorder without prior episode (HCC) ([facility]) Degenerative joint disease of spine Encounter [...] abnormal pap smear PAP SMEAR 03/07/2014 LGSIL MA MEDICATION MANAGEMENT Drug Therapy -SVT TONSILLECTOMY 1992 [...] nursing note reviewed. Exam conducted with a cattle dipper present. Vitals: Estimated body mass index is [...] Orlin Castro DO documented in this encounter [facility] 06-16-2024 History of Present illness Narrative Reason [...] for wellness examination in adult 09/01/2023 Depression ([facility]) 09/01/2023 Resolved Ambulatory Problems Diagnosis Date Noted Major depressive disorder, single episode, mild (HCC) ([facility]) 09/01/2023 Past Medical History: Diagnosis Date Abnormal Pap smear of cervix 2009 Contraception management Current mild episode of major depressive disorder without prior episode (HCC) ([facility]) Degenerative joint disease of spine Encounter for IUD removal History of abnormal cervical Pap smear LGSIL Pap smear of vagina 2012 Overweight (BMI 25.0-29.9) SVT (supraventricular tachycardia) ([facility]) Torn meniscus HISTORY PAST MEDICAL HISTORY SOCIAL HISTORY Past Medical History: Diagnosis Date Abnormal Pap smear of cervix 2009 Contraception management Current mild episode of major depressive disorder without prior episode (HCC) ([facility]) 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 Artis needs to stop with preg. Cat. C LGSIL Pap smear of vagina 2012 Overweight (BMI 25.0-29.9) SVT (supraventricular tachycardia) ([facility]) Torn meniscus Social History Tobacco Use [...] abnormal pap smear PAP SMEAR 03/07/2014 LGSIL MA MEDICATION MANAGEMENT Drug Therapy -SVT TONSILLECTOMY 1992 [...] nursing note reviewed. Exam conducted with a cattle dipper present. Vitals: Estimated body mass index is [...] clinic in 2-3 weeks. Documented by Ramandeep Fergusno LPN on behalf of: Ximena Carver NP documented in this encounter [facility] 04-07-2024 History of Present illness Narrative Reason [...] Diagnosis Date Abnormal Pap smear of cervix 2010 Contraception management Current mild episode of major [...] abnormal pap smear PAP SMEAR 03/07/2014 LGSIL MA MEDICATION MANAGEMENT Drug Therapy -SVT TONSILLECTOMY 1992 [...] of: GISELLE Cramer documented in this encounter [facility] 03-10-2024 History of Present illness Narrative Reason [...] Major depressive disorder, single episode, mild (HCC) ([facility]) 09/01/2023 Past Medical History: Diagnosis Date Abnormal Pap smear of cervix 2009 Contraception management Current mild episode of major depressive disorder without prior episode (HCC) ([facility]) Degenerative joint disease of spine Encounter for IUD removal History of abnormal cervical Pap smear LGSIL Pap smear of vagina 2012 Overweight (BMI 25.0-29.9) SVT (supraventricular tachycardia) ([facility]) Torn meniscus HISTORY PAST MEDICAL HISTORY SOCIAL HISTORY Past Medical History: Diagnosis Date Abnormal Pap smear of cervix 2009 Contraception management Current mild episode of major depressive disorder without prior episode (HCC) ([facility]) 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 Artis needs to stop with preg. Cat. C LGSIL Pap smear of vagina 2012 Overweight (BMI 25.0-29.9) SVT (supraventricular tachycardia) ([facility]) Torn meniscus Social History Tobacco Use [...] abnormal pap smear PAP SMEAR 03/07/2014 LGSIL MA MEDICATION MANAGEMENT Drug Therapy -SVT TONSILLECTOMY 1992 [...] nursing note reviewed. Exam conducted with a cattle dipper present. Vitals: Estimated body mass index is [...] or undercooked meat, and stay away from [facility]. Patient has been consulted regarding any further [...] Orlin Castro DO documented in this encounter [facility] 02-11-2024 History of Present illness Narrative Reason [...] abnormal pap smear PAP SMEAR 03/07/2014 LGSIL MA MEDICATION MANAGEMENT Drug Therapy -SVT TONSILLECTOMY 1992 [...] or undercooked meat, and stay away from [facility]. Patient has also been advised to not change litter boxes and eat 6 small meals a day. Patient has been consulted regarding the do's and don'ts of . Patient was given labs and all questions and concerns were answered. Patient was given Niles to have completed at 10 weeks. Follow Up: Patient is to return in 4 weeks for routine OB appointment. Follow Up: Patient is to have labs drawn at directed and return to office for initial OB appointment with provider. Patient may call office as needed with any concerns or questions. Nurse Visit Completed by: Lynnette Stapleton LPN documented in this encounter [facility] 12-10-2023 History of Present illness Narrative Reason [...] abnormal pap smear PAP SMEAR 03/07/2014 LGSIL MA MEDICATION MANAGEMENT Drug Therapy -SVT TONSILLECTOMY 1992 [...] nursing note reviewed. Exam conducted with a cattle dipper present. Vitals: Estimated body mass index is [...] Evaluation note No assessment inform ation available [facility] Work Phone: Evaluation note Diagnosis Primary insomnia- [...] diabetes mellitus SGA (small for gestational age) [id number] without mention of malnutrition, unspecified (weight) documented [...] and content) DATE CREATED AUTHOR 02/22/2022 [facility] DATE CREATED AUTHOR AUTHOR'S ORGANIZ ATION 03/06/2024 [facility] DATE CREATED AUTHOR AUTHOR'S ORGANIZ ATION 07/24/2024 [facility] Care Teams (unrecognized sec tion and content) Team Status: Active Member Role Status Dates Dar Brody MD Primary Care Provider Active Team Status: Inactive Member Role Status Dates Dar Brody MD Primary Care Provider Active Start: June 30, 2023 End: June 30, 2023 Orlin Castro Attending Provider Active Start: Viky brewer 2023 End: June 30, 2023 Head Housekeeper Relationship Specialty Start Date End Date Parag Bradley MD [address] [place] [phone] PCP - General Family Medicine 08/14/22 Анна Ha NP [address] [place] [address] [facility] 08/25/23 Head Housekeeper Relationship Specialty Start Date End Date Parag Bradley MD [address] [place] [address] PCP - [facility] 08/14/22 Анна Ha NP [address] [place] [address] [facility] 08/25/23 Head Housekeeper Relationship Specialty Start Date End Date Parag Bradley MD [address] [place] [address] [facility] 08/14/22 Анна Ha NP [address] [place] [address] [facility] 08/25/23 Head Housekeeper Relationship Specialty Start Date End Date Parag Bradley MD [address] [place] [address] [facility] 08/14/22 Анна Ha NP [address] [place] [address] [facility] 08/25/23 Head Housekeeper Relationship Specialty Start Date End Date Parag Bradley MD [address] [place] [address] [facility] 08/14/22 Анна Ha NP [address] [place] [address] [facility] 08/25/23 Head Housekeeper Relationship Specialty Start Date End Date Parag Bradley MD [address] [place] [address] PCP - General Family [facility] 08/14/22 Анна Ha NP [address] [place] [address] [facility] 08/25/23 Team Status: Inactive Member Role Status Dates Orlin Castro DO Attending Provider Active Start : February 27, 2024 End: February 27, 2024 Head Housekeeper Relationship Specialty Start Date End Date Parag Bradley MD [address] [place] [address] PCP - [facility] 08/14/22 Анна Ha NP [address] [place] [address] [facility] 08/25/23 Head Housekeeper Relationship Specialty Start Date End Date Parag Bradley MD [address] [place] [address] PCP - [facility] 08/14/22 Анна Ha NP [address] [place] [address] [facility] 08/25/23 Head Housekeeper Relationship Specialty Start Date End Date Parag Bradley MD [address] [place] [address] PCP - [facility] 08/14/22 Анна Ha NP [address] [place] [address] [facility] 08/25/23 Head Housekeeper Relationship Specialty Start Date End Date Parag Bradley MD [address] [place] [address] PCP [facility] 08/14/22 Анна Ha NP [address] [place] [address] [facility] 08/25/23 Goals (unrecognized section and content) [...] THE PRIMARY CLINICAL RECORDS. [facility] [employer] [place] [facility]. provides no warranty or guarantee of the accuracy or completeness of information in this document.
== END 2024-07-28 09:58 | disposition home or self-care (01) ==
LOC: US 09:57
PROVIDERS: PCP Nurse Practitioner; Visit Provider Obstetrics & Gynecology
DX: O26.843 Uterine size-date discrepancy, third trimester (principal); Z3A.31 31 weeks gestation of pregnancy
CPT/HCPCS: 76816

== ENCOUNTER 2024-07-30 12:00 | Outpatient (OUT) | payer OTHER, SELFPAY ==
[2024-07-30 12:08] VITALS: BP 130/73; PULSE 100
== END 2024-07-30 12:50 | disposition home or self-care (01) ==
LOC: FBCO 12:00 → FBC 12:04
PROVIDERS: PCP Nurse Practitioner; Visit Provider Obstetrics & Gynecology
DX: O24.419 Gestational diabetes mellitus in pregnancy, unspecified control (principal)
CPT/HCPCS: 59025

== ENCOUNTER 2024-08-04 11:03 | Outpatient (OUT) | payer OTHER, SELFPAY ==
--- OUTSIDE RECORDS SUMMARY | 2021-03-22 12:00 | XMS_ITS | Continuity of Care Document ---
Author Organization [facility] Address [address] [place] [address] Phone Care Team Providers Care Polymer Scientist Name Role Phone Tash Sandhu DMD Unavailable Unavailable Allergies, Adverse Reactions, Alerts Substance Reaction Status Criticality No Known Allergies Active No Inform ation Medications Medication Instructions Dosage Effective Dates (start - stop) Status Comments Mirena 20 mcg/24 hours (6 yrs) 52 mg intrauterine device - Active Procedures Procedure Date Nutrit Couns For Control Of [place] Dis Feb Bitewings-three Films Panoramic Film Comp Oral Eval New/estab Patient 2021 Oral Hygiene Instruction Limited Oral Eval Extract; Erupted Th/exposted Rt 021 Extract; Erupted Th/exposted Rt 021 Bitewig-single Film Intraoral-periapical 1st Film Advance Directives Directive Yes / No Effective Date File Name No Information Encounters Encounter Description Practice Location Reason(s) For Visit Diagnoses Date Provider Providers Copied on Encounter [facility], [address] [place] [address], [id number], tel:[phone] Dental Clinic DN (chief complaint) Encounter for screening for dental disorders Edson Bianchi. [address] [place] [address], [id number], [place]. tel:[phone] [facility], [address] [place] [address], [id number], tel:[phone] Dental Clinic Dental New (chief complaint) Encounter for screening for dental disorders Edson Bianchi. [address] [place], [place], [id number], [place]. tel:[phone] Family History Family Member Type Diagnosis Age At Onset Mother Problem Alive and well Father Problem Alive and well Mother Problem Cardiovascular disease Payers Payer name Insurance type Covered republican ID Aston jason(s) D Medicaid [facility] [id number] Social History Type Description Quantity Date Captured [...]
--- OUTSIDE RECORDS SUMMARY | 2024-04-05 11:45 | XMS_ITS ---
[facility] [address] [place] [place] [address] Care Team Providers Care Yard Coordinator Name Role Phone Naida Valera Primary Care Provider [phone] REASON FOR VISIT EXT Encounters Encounter Location Date Provider Diagnosis [facility] [address] [place] [address] 04/05/2024 Naida Valera Plan Of Treatment Next Appt Details Provider Name:Naida ruff, 11/12/2024 10:30:00 AM, [address] [facility] [place], [address], Progress Notes * ROXANNE ROGERS DDOB: 9 (33 yo F)Acc No.[id number]:04/05/2024 Patient: ROXANNE KENNY Provider: Elizabeth Valera DDS :1990 A ge:33 Y S ex:Female Date:04/05/2024 Address:[address] [place] [phone] Subjective: * Chief Complaints: * 1 . EXT. * Medical History: Objective: * Vitals: Assessment: Plan: * Treatment: * Images: * Electronic signature of Harjit Valera DDS on 08/04/2024 at 11:05 AM EDT Sign off status: Pending * Provider: Elizabeth Valera DDS Date: 0 04/05/2024 Generated for Adam son/Makenzie/Chinyereitting on: 0 08/04/2024 11:05 AM EDT
--- OUTSIDE RECORDS SUMMARY | 2024-04-19 09:00 | XMS_ITS ---
[facility] [address] [place] [address] Care Team Providers Care Chemical Dependency Counselor Name Role Phone Naida Valera Primary Care Provider [phone] REASON FOR VISIT FILLING Encounters Encounter Location Date Provider Diagnosis [facility] [address] [place] [address] 04/19/2024 Naida Valera Plan Of Treatment Next Appt Details Provider Name:Naida ruff, 11/12/2024 10:30:00 AM, [address] [facility] [place], [address], Progress Notes * ROXANNE ROGERS DDOB: 9 (33 yo F)Acc No.[id number]:04/19/2024 Patient: ROXANNE KENNY Provider: Elizabeth Valera DDS :1990 A ge:33 Y S ex:Female Date:04/19/2024 Address:[address] [place] [phone] Subjective: * Chief Complaints: * 1 . FILLING. * Medical History: Objective: * Vitals: Assessment: Plan: * Treatment: * Images: * Electronic signature of Harjit Valera DDS on 08/04/2024 at 11:06 AM EDT Sign off status: Pending * Provider: Elizabeth Valera DDS Date: 04/19/2024 Generated for Adam son/Makenzie/Chinyereitting on: 0 08/04/2024 11:06 AM EDT
--- OUTSIDE RECORDS SUMMARY | 2024-07-21 14:20 | XMS_ITS | Encounter Summary ---
Author Organization [facility] Address [address] [place] [address] Care Team Providers Care Perfume Compounder Name Role Phone Parag Bradley MD Primary Care Provider [phone] Анна Ha NP Unavailable [phone] Reason for Visit * Reason Comments Routine Visit Encounter Details Date Type Department Care Team (Late st Contact Info) Description 07/21/2024 2:20 PM EDT Routine [facility] [address] [facility] [place] [address] Vidya Sepulveda PA [address] [facility] [address] [facility] [address] [place], [facility]11 Third trimester ; 30 weeks gestation of ; History of gestational diabetes Social History Tobacco Use Types Packs/Day Years Used Date Smoking Tobacco: Former Cigarettes Q uit: 2014 Smokeless Tobacco: Never Comments:Ex-moderate cigaret te smoker (10-19/day) Alcohol Use Standard Drinks/Week Comments Never 0 (1 standard drink = 0.6 oz pur e alcohol) Caffeine: occasional Social Connection and Isolat ion Panel [NHANES] Answer Date Recorded In a typical week, how many times do you talk on the phone with family, friends, or neighbors? More than three times a week 05/19/2023 How often do you get togethe r with friends or relatives? Twice a week 05/19/2023 How often do you attend [facility] or sikh services? More than 4 times per year 05/19/2023 Do you belong to any clubs o r organizations such as religious groups, unions, fraternal or athletic groups, or school groups? Yes 05/19/2023 How often do you attend meet ings of the clubs or organizations you belong to? More than 4 times per year 05/19/2023 Are you , , di vorced, , never , or living with a partner? 05/19/2023 AUDIT-C Answer Date Recorded Q1: How often do you have a drink containing alcohol? Never 05/19/2023 Q2: How many drinks containi ng alcohol do you have on a typical day when you are drinking? Patient does not drink Q3: How often do you have si x or more drinks on one occasion? Never 05/19/2023 Overall Financial Resource Strain (CARDIA) Answe r Date Recorded How hard is it for you to pa y for the very basics like food, housing, medical care, and heating? Not very hard 05/19/2023 PHQ-2 Answer Date Recorded Patient Health Questionnaire-2 Score 0 06/08/2024 [facility] - Occupational Stress Questionnaire Answer Date Recorded Do you feel stress - tense, restless, nervous, or anxious, or unable to sleep at night because your mind is troubled all the time - these days? Only a little 05/19/2023 Exercise Vital Sign Answer Date Recorde d On average, how many days pe r week do you engage in moderate to strenuous exercise (like a brisk walk)? 0 days 05/19/2023 On average, how many minutes do you engage in exercise at this level? 0 min 05/19/2023 Hunger Vital Sign Answer Date Recorded Within the past 12 months, y ou worried that your food would run out before you got the money to buy more. Never true 05/19/19 24 Within the past 12 months, t he food you bought just didn't last and you didn't have money to get more. Never true 05/19/2023 PRAPARE - Transportation Answer Date Re corded In the past 12 months, has l ack of transportation kept you from medical appointments or from getting medications? No 04/25 In the past 12 months, has l ack of transportation kept you from meetings, work, or from getting things needed for daily living? No 05/19/2023 Housing Stability Vital Sign Answer Leonidas e Recorded In the last 12 months, was t here a time when you were not able to pay the mortgage or rent on time? No 05/19/2023 In the last 12 months, how many places have you lived? 1 05/19/2023 In the last 12 months, was t here a time when you did not have a steady place to sleep or slept in a fpc (including now)? No 05/19/2023 Estimated Date of Delivery Comme nts Yes 09/24/2024 Based on Ultraso und, FHR- 152 Sex and Gender Information Value Date Recorded Sex Assigned at Not on file Legal Sex Female 7:11 PM EDT Gender Identity Female 05/08/2022 7:11 PM EDT Sexual Orientation Not on file documented as of this encounter Last Filed Vital Signs Vital Sign Reading Time Taken Comments Blood Pressure 110/74 07/21/2024 2:30 PM EDT Pulse - - Temperature - - Respiratory Rate - - Oxygen Saturation - - Inhaled Oxygen Concentration - - Weight 79.6 kg (175 lb 6.4 oz) 07/21/2024 2:30 P M EDT Height - - Body Mass Index 33.14 09/01/2023 10:37 AM EDT documented in this encounter Progress Notes * GISELLE Cramer - 07/21/2024 2:20 PM EDT Reason for Appointment: Patient ID: Shreya Marshall is a 33 y.o. female who presents for Routine Visit Patient presents today for Return OB appointment. MEDICATIONS Current Outpatient Medications Medication Instructions aspirin 81 mg, Daily omeprazole (PRILOSEC) 20 mg, Oral, Daily before breakfast, Do not crush or chew. MV-Min-Fe Fum-FA-DHA ( 1 PO) 1 each, Daily traZODone (DESYREL) 100 mg, Oral, Nightly ALLERGIES Allergies Allergen Reactions Other Powder on gloves Other Reaction(s): rash/itching PROBLEMS Active Ambulatory Problems Diagnosis Date Noted Insomnia 02/27/2023 Supraventricular tachycardia 12/09/2019 Left wrist pain 05/03/2023 Obesity (BMI 30-39.9) 05/26/2023 Encounter for wellness examination in adult 09/01/2023 Depression (CMS/HCC) 09/01/2023 Resolved Ambulatory Problems Diagnosis Date Noted Major depressive disorder, single episode, mild (HCC) ([facility]) 09/01/2023 Past Medical History: Diagnosis Date Abnormal Pap smear of cervix 2009 Contraception management Current mild episode of major depressive disorder without prior episode (HCC) ([facility]) Degenerative joint disease of spine Encounter for IUD removal History of abnormal cervical Pap smear LGSIL Pap smear of vagina 2012 Overweight (BMI 25.0-29.9) SVT (supraventricular tachycardia) ([facility]) Torn meniscus HISTORY PAST MEDICAL HISTORY SOCIAL HISTORY Past Medical History: Diagnosis Date Abnormal Pap smear of cervix 2009 Contraception management Current mild episode of major depressive disorder without prior episode (HCC) ([facility]) 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 Artis needs to stop with preg. Cat. C LGSIL Pap smear of vagina 2012 Overweight (BMI 25.0-29.9) SVT (supraventricular tachycardia) ([facility]) Torn meniscus Social History Tobacco Use Smoking status: Former Current packs/day: 0.00 Types: Cigarettes Quit date: 2014 Years since quittin.4 Smokeless tobacco: Never Tobacco comments: Ex-moderate cigarette [...] abnormal pap smear PAP SMEAR 03/07/2014 [facility] Therapy -SVT TONSILLECTOMY 1992 [...] reviewed. Vitals: Estimated body mass index is 33.14 kg/m?? as calculated from the following: Height as of 09/01/23: 5' 1 . Weight as of this encounter: 175 lb 6.4 oz. BP: 110/74 Patient's last menstrual period was 12/11/2023. ASSESSMENT & PLAN ICD-10-CM 1. Third trimester Z34.93 2. 30 weeks gestation of Z3A.30 3. History of gestational diabetes Z86.32 US biophysical profile w non stress test US OB follow up transabdominal approach Return OB: Patient presents today for a routine obstetrics appointment. Patient is currently 30w5d . Patient states she is doing well but has complaints of being tired due to current . Patient has verbalizes frequent movement. labor precautions was discussed/given and patient was instructed to perform kick counts three times a day. Patient given orders for NST/BPP to start at 32 weeks. Pt scheduled for growth next week Orders Placed This Encounter Procedures US biophysical profile w non stress test US OB follow up transabdominal approach Follow Up: Patient is to return to office in 2 week for routine OB appointment. Documented by GISELLE Cramer on behalf of: GISELLE Cramer documented in this encounter Plan of Treatment Upcoming Encounters Date Type Department Care Team (Late st Contact Info) Description 08/04/2024 2:20 PM EDT Routine [facility] [address] [place] [address] [place] [phone] Slava Castro, DO [address] [place], [place] [id number] 09/07/2024 1:00 PM EDT Office Visit [facility] [address] [place] [phone] Анна Ha NP [address] [place] [phone] 12/15/2024 3:00 PM EDT Office Visit [facility] [address] [facility] [place] [address] Slava Castro, DO [address] [place], [place] [id number] Scheduled Orders Name Type Priority Associated Diagnoses Orde r Schedule US biophysical profile w non stress test Imaging Routine History of gestational diabetes Expected: 07/21/2024 (Approximate), Expires: 01/21/2025 US OB follow up transabdominal approach Imaging Routine History of gestational diabetes Expected: 07/21/2024, Expires: 11/21/2024 documented as of this encounter Goals Goal Patient Goal Type Associated Problems Recent Progress Patient-Stated? Author Reminders Care Plan OB Reminders No Open Scheduling, Background documented as of this encounter Visit Diagnoses Diagnosis Third trimester state, incidental 30 weeks gestation of History of gestational diabetes Personal history of other genital system and obstetric disorders documented in this encounter Additional Health Concerns Active Problems Noted Date Diagnosed Date OB Reminders 02/11/2024 documented as of this encounter Care Teams Perfume Compounder Relationship Specialty Start Date End Date Parag Bradley MD [address] [place] [phone] PCP - General Family Medicine 08/14/22 Анна Ha, VÍCTOR [address] [place] [address] [facility] 08/25/23 documented as of this encounter
--- NOTE | 2024-08-04 | US_ITS ---
[facility] [place] [id number] Patient Name: ROXANNE ROGERS MRN: [id number] date: 1990 Sex: F Assigned Patient Location: [facility] Current Patient Location: [facility] Accession/Order Number: [id number] Exam Date: 08/04/2024 11:42 Report Date: 08/04/2024 11:43 At the request of: SHADE JACKSON Procedure: US OB BPP w non-stress BIOPHYSICAL PROFILE: CLINICAL INFORMATION: ADVANCED MATERNAL AGE COMPARISON: None There is a single live intrauterine gestation in cephalic presentation. The reported gestational age is 32 weeks 5 days. The heart rate measures 141 beats per minute. FINDINGS: TONE: 1 or more episodes of activity extension and flexion of extremity or opening and closing of the hand [Y] 2/2 GROSS BODY MOVEMENTS: 3 or more discrete body or limb movements [Y] 2/2 BREATHING MOVEMENTS: 1 or more episodes of breathing lasting at least 30 seconds [Y] 2/2 LIVE: A single deepest vertical pocket of amniotic fluid greater than 2 cm [Y] 2/2 LIVE: 11.4 cm. This is in low-normal range. Total score: 8/8 US/US OB BPP w non-stress IMPRESSION: NORMAL BIOPHYSICAL PROFILE . Impression dictated by: Isatu Auguste M.D. 08/04/2024 11:43 AM Dictation Location: [place] [address] Electronically authenticated by: [id number] Y Date: 08/04/2024 11:43
--- OUTSIDE RECORDS SUMMARY | 2024-08-04 11:05 | XMS_ITS ---
Author Organization [facility] Address [address] [place] [address] Care Team Providers Care Entry Level Management Name Role Phone Parag Bradley MD Primary Care Provider [phone] Анна Ha NP Unavailable [phone] [facility] Status:Enrolled (Active) Start date:03/09/2024 Enrollment date:03/09/2024 Enrollment reason:Identified by Health Plan Case Team Name Relationship Phone Vidya Oliva LPN(Responsible Staff) Licensed Prac tical Nurse Continued Care and Services Coordination
--- OUTSIDE RECORDS SUMMARY | 2024-08-04 11:05 | XMS_ITS | Encounter Summary ---
Author Organization [facility] Address [address] [address] Care Team Providers Care Shoe Lacer Name Role Phone Parag Bradley MD Primary Care Provider [phone] Анна Ha NP Unavailable [phone] Encounter Details Date Type Department Care Team (Late st Contact Info) Description 06/16/2023 Orders Only [facility] [address] [place] [address] Slava Castro, DO [address] [facility] [place] [address] [place] [address] Social History Tobacco Use Types Packs/Day Years [...] How often do you attend chur or adventist services? More than 4 times per year 05/19/2023 Do you belong to any clubs o r organizations such as spiritism groups, unions, fraternal or athletic groups, or [...] Recorded Patient Health Questionnaire-2 Score 0 05/26/2023 [facility] - Occupational Stress Questionnaire Answer [...] place to sleep or slept in a half-way (including now)? No 05/19/2023 Comments Unknown Sex and Gender Information Value Date Recorded Sex Assigned at Not on file Legal Sex Female 7:11 PM EDT Gender Identity Female 05/08/2022 7:11 PM EDT Sexual Orientation Not on file documented as of this encounter Plan of Treatment Upcoming Encounters Date Type Department Care Team (Late st Contact Info) Description 08/04/2024 2:20 PM EDT Routine [facility] OB [address] [place] [address] [place] [address] Castro [address] [place], [place] [address] 09/07/2024 1:00 PM EDT Office Visit [facility] [address] [place] [address] Анна Ha NP [address] [place] [address] 12/15/2024 3:00 PM EDT Office Visit [facility] [address] [place] [address] Slava Castro [address] [place], [place] [address] documented as of this encounter Procedures Procedure [...] on filedocumented in this encounter Care Teams Shoe Lacer Relationship Specialty Start Date End Date Parag Bradley MD [address] [place] [address] PCP - General Family Medicine 08/14/22 Анна Ha NP [address] [place] [address] [facility]/25[facility] documented as of this encounter
--- OUTSIDE RECORDS SUMMARY | 2024-08-04 11:05 | XMS_ITS | Encounter Summary ---
Author Organization [facility] Address [address] [place] [address] Care Team Providers Care Cook Candy Name Role Phone Parag Bradley MD Primary Care Provider [phone] Анна Ha NP Unavailable Encounter Details Date Type Department Care Team [...] Recorded Patient Health Questionnaire-2 Score 0 05/26/2023 [facility] of Occupat ional [facility] - Occupational Stress Questionnaire Answer Date Recorded [...] in a usp (including now)? No 05/19/2023 Comments Unknown Sex and Gender Information Value Date Recorded Sex Assigned at Not on file Legal Sex Female 7:11 PM EDT Gender Identity Female 05/08/2022 7:11 PM EDT Sexual Orientation Not on file documented as of this encounter Plan of Treatment Upcoming Encounters Date Type Department Care Team (Late st Contact Info) Description 08/04/2024 2:20 PM EDT Routine [facility] [address] [place] [address] [place] [address] Orlin Castro, [address] [place], [place] [address] 09/07/2024 1:00 PM EDT Office Visit [facility] [address] [place] [address] Анна Ha, CREPE BOX TENDER [address] [place] [address] 12/15/2024 3:00 PM EDT Office Visit [facility] OB [address] [place] [address] Orlin Castro, [address] [place], [place] [address] documented as of this encounter Procedures Procedure Name Priority Date/Time Associated Diagnosis Comments US OB TRANSVAGINAL 06/26/2023 10 :14 AM EDT documented in this encounter Results * US OB TRANSVAGINAL (06/26/2023 10:14 AM EDT) Anatomical Region Laterality Modality Other 06/26/2023 10:1 4 AM EDT Narrative 06/26/2023 10:16 AM EDT The [address] [address] Ultrasound Report Signed Patient: ROXANNE MARSHALL MR#: [id number] : 1990 Acct:[id number] Age/Sex: 32 / F ADM Date: 06/26/23 Loc: [facility] Attending Dr: Orlin Castro D.O. Ordering Physician: Orlin Castro D.O. Date of Service: 06/26/23 Procedure(s): US OB transvaginal Accession Number(s): [id number] cc: Анна Ha NP; Orlin Castro D.O. The [address] [id number] Patient Name: ROXANNE MARSHALL MRN: [id number] date: 1990 Sex: F Assigned Patient Location: [facility] Current Patient Location: [facility] Accession/Order Number: [id number] Exam Date: 06/26/2023 09:09 Report Date: 06/26/2023 [...] Signed By: 06/26/23 1016 DD/ 1014 TD/TT: Perch Machine Inspector: Procedure Note Radiology, Radiologist, - 06/26/2023 [place] [address] Ultrasound Report Signed Patient: ROXANNE MARSHALL DMR#: [id number] : 1990Acct:[id number] Age/Sex: 32 / FADM Date: 06/26/23 Loc: [facility] Attending Dr: Orlin Castro D.O. Ordering Physician: Orlin Castro D.O. Date of Service: 06/26/23 Procedure(s): US OB transvaginal Accession Number(s): [id number] cc: Анна Ha CREPE BOX TENDER; Orlin Castro D.O. [place] [address] Patient Name: ROXANNE MARSHALL MRN: [id number] date: 1990 Sex: F Assigned Patient Location: [facility] Current Patient Location: [facility] Accession/Order Number: [id number] Exam Date: 06/26/2023 09:09 Report Date: 06/26/2023 [...] M.D. Signed By:06/26/23 1016 DD/ 1014 TD/TT: Perch Machine Inspector: us Generic External Data Provider [facility] Final Result documented in this encounter Visit Diagnoses Not on filedocumented in this encounter Care Teams Cook Candy Relationship Specialty Start Date End Date Parag Bradley MD [address] [place] [address] PCP - General Family Medicine 08/14/22 Анна Ha NP [address] [place] [address] PCP - [facility] 08/25/23 documented as of this encounter
--- OUTSIDE RECORDS SUMMARY | 2024-08-04 11:05 | XMS_ITS | Patient Health Record ---
Author Organization [facility] es Address [address] [place] [address] Care Team Providers Care Hog Grader Name Role Phone Naida Valera Primary Care Provider Reason For Referral No Information Medications Medication SIG (Take, Route, Frequency, Duration) Notes Start Date End Date Status Zoloft Unknown TRAZODONE Unknown Acetaminophen Extra Strength 500 MG 1 tablet as needed Orally every 6 hrs 01/02/2024 Active Encounters Encounter Location Date Provider Diagnosis [place] [address] [place] [address] 12/25/2023 Naida Valera Cracked tooth K03 .81 [facility] [address] [place] [address] 12/29/2023 Naida Valera Encounter for den mercy examination and cleaning with abnormal findings Z01.21 [facility] [address] [place] [address] 01/02/2024 Naida Valera Encounter for den mercy [...] ruff, 11/12/2024 10:30:00 AM, [address] [place], [address], Insurance Providers Payer Name Payer Address Payer Phone Subscriber Number Group Number Insured Name Patient Relationship to Insured Coverage Start Date Coverage End Date DENTAL [employer] DH[employer] [address] [address] [place] [phone] [id number] ROXANNE ROGERS Self - patient is the insured 4 Secondary Dental [place] [employer] [address] [address] [place] [address] [id number] ROXANNE ROGERS Self - patient is the insured 3 Dental Wrap [facility] [place] [address] [place] [address] [id number] ROXANNE ROGERS Self - patient is the insured 3
--- OUTSIDE RECORDS SUMMARY | 2024-08-04 11:05 | XMS_ITS | Encounter Summary ---
Author Organization [facility] Address [address] [place] [address] Care Team Providers Care Grill Attendant Name Role Phone Parag Bradley MD Primary Care Provider [phone] Анна Ha NP Unavailable [phone] Encounter Details Date Type Department Care [...] often do you attend chur ch or islam services? More than 4 times per year 05/19/2023 Do you belong to any clubs o r organizations such as congregational groups, unions, fraternal or athletic groups, or [...] Recorded Patient Health Questionnaire-2 Score 0 05/26/2023 [facility] of Occupat ional [facility] - Occupational Stress Questionnaire Answer Date Recorded [...] place to sleep or slept in a long term (including now)? No 05/19/2023 Comments Unknown Sex and Gender Information Value Date Recorded Sex Assigned at Not on file Legal Sex Female 7:11 PM EDT Gender Identity Female 05/08/2022 7:11 PM EDT Sexual Orientation Not on file documented as of this encounter Plan of Treatment Upcoming Encounters Date Type Department Care Team (Late st Contact Info) Description 08/04/2024 2:20 PM EDT Routine [facility] [address] [place] [address] [place] [address] Orlin Castro, [address] [place], [place] [address] 09/07/2024 1:00 PM EDT Office Visit [facility] [address] [place] [address] Анна Ha, SHOWCASE MAKER [address] [place] [address] 12/15/2024 3:00 PM EDT Office Visit [facility] OB [address] [place] [address] Orlin Castro, [address] [place], [place] [address] documented as of this encounter Procedures Procedure Name Priority Date/Time Associated Diagnosis Comments US OB TRANSVAGINAL 06/20/2023 12 :10 PM EDT documented in this encounter Results * US OB TRANSVAGINAL (06/20/2023 12:10 PM EDT) Anatomical Region Laterality Modality Other 06/20/2023 12:1 0 PM EDT Narrative 06/20/2023 12:12 PM EDT The [address] [address] Ultrasound Report Signed Patient: ROXANNE MARSHALL MR#: [id number] : 1990 Acct:[id number] Age/Sex: 32 / F ADM Date: 06/20/23 Loc: [facility] Attending Dr: Orlin Castro D.O. Ordering Physician: Orlin Castro D.O. Date of Service: 06/20/23 Procedure(s): US OB transvaginal Accession Number(s): [id number] cc: Анна Ha NP; Orlin Castro D.O. [place] [address] Patient Name: ROXANNE MARSHALL MRN: [id number] date: 1990 Sex: F Assigned Patient Location: [facility] Current Patient Location: [facility] Accession/Order Number: [id number] Exam Date: 06/20/2023 08:31 Report Date: 06/20/2023 [...] Signed By: 06/20/23 1212 DD/ 1210 TD/TT: Compliance Professional: Procedure Note Radiology, Radiologist, - 06/20/2023 [place] [address] Ultrasound Report Signed Patient: ROXANNE MARSHALL DMR#: [id number] : 1990Acct:[id number] Age/Sex: 32 / FADM Date: 06/20/23 Loc: [facility] Attending Dr: Orlin Castro D.O. Ordering Physician: Orlin Castro D.O. Date of Service: 06/20/23 Procedure(s): US OB transvaginal Accession Number(s): [id number] cc: Анна Ha SHOWCASE MAKER; Orlin Castro D.O. The [place] [address] Patient Name: ROXANNE MARSHALL MRN: [id number] date: 1990 Sex: F Assigned Patient Location: [facility] Current Patient Location: [facility] Accession/Order Number: [id number] Exam Date: 06/20/2023 08:31 Report Date: 06/20/2023 [...] consistent with miscarriage/ demise Electronically authenticated by: MAER ANDERSON Date: 06/20/2023 12:10 Dictated By: Mare Anderson M.D. Signed By:06/20/23 1212 DD/ 1210 TD/TT: Compliance Professional: us Generic External Data Provider [facility] Final Result documented in this encounter Visit Diagnoses Not on filedocumented in this encounter Care Teams Grill Attendant Relationship Specialty Start Date End Date Parag Bradley MD [address] [place] [address] PCP - General Family Medicine 08/14/22 Анна Ha NP [address] [place] [address] PCP - [facility] 08/25/23 documented as of this encounter
--- OUTSIDE RECORDS SUMMARY | 2024-08-04 11:05 | XMS_ITS | Encounter Summary ---
Author Organization [facility] Address [address] [place] [address] Care Team Providers Care Oracle Database Consultant Name Role Phone Parag Bradley MD Primary Care Provider [phone] Анна Ha NP Unavailable [phone] Encounter Details Date Type Department Care Team (Late st Contact Info) Description 06/26/2023 Orders Only [facility] [address] [facility] [place] [address] Slava Castro, DO [address] [facility] [address] [place], [place] [address] Social History Tobacco Use Types Packs/Day Years [...] How often do you attend chur or anabaptist services? More than 4 times per year 05/19/2023 Do you belong to any clubs o r organizations such as yarsanism groups, unions, fraternal or athletic groups, or [...] Recorded Patient Health Questionnaire-2 Score 0 05/26/2023 [facility] - Occupational Stress Questionnaire Answer Date [...] Description 08/04/2024 2:20 PM EDT Routine NOM[facility] [address] [place] [address] Slava Castro [address] [place], [place] [address] 09/07/2024 1:00 PM EDT Office Visit [facility] [address] [place] [address] Анна Ha NP [address] [place] [address] 12/15/2024 3:00 PM EDT Office Visit [facility] [address] [place] [address] Slava Castro [address] [place], [place] [address] documented as of this encounter Procedures Procedure [...] on filedocumented in this encounter Care Teams Oracle Database Consultant Relationship Specialty Start Date End Date Parag Bradley MD [address] [place] [address] PCP - General Family Medicine 08/14/22 Анна Ha NP [address] [place] [address] PCP - [facility] 08/25/23 documented as of this encounter
--- OUTSIDE RECORDS SUMMARY | 2024-08-04 11:05 | XMS_ITS | Encounter Summary ---
Author Organization [facility] Address [address] [place] [address] Care Team Providers Care Chief Sales Officer Name Role Phone Parag Bradley MD Primary Care Provider [phone] Анна Ha NP Unavailable Encounter Details Date [...] often do you attend chur ch or restorationist services? More than 4 times per year 05/19/2023 Do you belong to any clubs o r organizations such as yazdanism groups, unions, fraternal or athletic groups, or [...] Recorded Patient Health Questionnaire-2 Score 0 05/26/2023 [facility] of Occupat ional [facility] - Occupational Stress Questionnaire Answer Date [...] place to sleep or slept in a fdc (including now)? No 05/19/2023 Comments Unknown Sex and Gender Information Value Date Recorded Sex Assigned at Not on file Legal Sex Female 7:11 PM EDT Gender Identity Female 05/08/2022 7:11 PM EDT Sexual Orientation Not on file documented as of this encounter Plan of Treatment Upcoming Encounters Date Type Department Care Team (Late st Contact Info) Description 08/04/2024 2:20 PM EDT Routine [facility] OB [address] [place] [address] [place] [address] Orlin Castro, DO [address] [place] [address] [place], [place] [address] 09/07/2024 1:00 PM EDT Office Visit [facility] [address] [place] [address] Анна Ha, RESPIRATORY THERAPY TECHNICIAN [address] [place] [address] 12/15/2024 3:00 PM EDT Office Visit [facility] OB [address] [place] [address] [place] [address] Orlin Castro, [address] [place] [address] documented as of this encounter Procedures Procedure Name Priority Date/Time Associated Diagnosis Comments US OB TRANSVAGINAL 06/13/2023 11 :13 AM EDT [facility] PREG QUANT HCG Routine 06/13/2023 10 :49 AM EDT documented in this encounter Results * US OB TRANSVAGINAL (06/13/2023 11:13 AM EDT) Anatomical Region Laterality Modality Other 06/13/2023 11:1 3 AM EDT Narrative 06/13/2023 11:16 [place] [address] Ultrasound Report Signed Patient: ROXANNE MARSHALL MR#: [id number] : 1990 Acct:[id number] Age/Sex: 32 / F ADM Date: 06/13/23 Loc: [facility] Attending Dr: Orlin Castro D.O. Ordering Physician: Orlin Castro D.O. Date of Service: 06/13/23 Procedure(s): US OB transvaginal Accession Number(s): [id number] cc: Анна Ha RESPIRATORY THERAPY TECHNICIAN; Orlin Castro D.O. [place] [id number] Patient Name: ROXANNE MARSHALL MRN: [id number] date: 1990 Sex: F Assigned Patient Location: [facility] Current Patient Location: [facility] Accession/Order Number: [id number] Exam Date: 06/13/2023 09:58 Report Date: 06/13/2023 [...] Signed By: 06/13/23 1116 DD/ 1113 TD/TT: Foreign Policy Officer: Procedure Note Radiology, Radiologist, MD - 06/13/2023 [place] [address] Ultrasound Report Signed Patient: ROXANNE MARSHALL DMR#: [id number] : 1990Acct:[id number] Age/Sex: 32 / FADM Date: 06/13/23 Loc: [facility] Attending Dr: Orlin Castro D.O. Ordering Physician: Orlin Castro D.O. Date of Service: 06/13/23 Procedure(s): US OB transvaginal Accession Number(s): [id number] cc: Анна Ha RESPIRATORY THERAPY TECHNICIAN; Orlin Castro D.O. The [place] [address] Patient Name: ROXANNE MARSHALL MRN: [id number] date: 1990 Sex: F Assigned Patient [facility] Current Patient Location: [facility] Accession/Order Number: [id number] Exam Date: 06/13/2023 09:58 Report Date: 06/13/2023 [...] M.D. Signed By:06/13/23 1116 DD/ 1113 TD/TT: Foreign Policy Officer: us Generic External Data Provider [facility] [...] [facility] F inal Result Performing Organization Address City/State/[facility] Co de Phone Number [facility] TB documented in this encounter Visit Diagnoses Not on filedocumented in this encounter Care Teams Chief Sales Officer Relationship Specialty Start Date End Date Parag Bradley MD [address] [place] [address] PCP - General Family Medicine 08/14/22 Анна Ha NP [address] [place] [address] PCP - [facility] 08/25/23 documented as of this encounter
--- OUTSIDE RECORDS SUMMARY | 2024-08-04 11:06 | XMS_ITS | Clinical Summary ---
Author Organization [facility] Address [address] [place] [address] Care Team Providers Care Stencil Machine Operator Name Role Phone Unavailable Primary Care Provider Unavailabl e Social History Tobacco Use Types Packs/Day Years Used Date Smoking Tobacco: Never Assessed Comments Unknown Sex and Gender Information Value Date Recorded Sex Assigned at Not on file Legal Sex Female 11:24 PM EDT Gender Identity Not on file Sexual Orientation Not on file Plan of Treatment Not on file
--- OUTSIDE RECORDS SUMMARY | 2024-08-04 11:06 | XMS_ITS | Encounter Summary ---
Author Organization [facility] Address [address] [place] [address] Care Team Providers Care Research Advisor Name Role Phone Parag Bradley MD Primary Care Provider [phone] Анна Ha NP Unavailable [phone] Encounter Details Date Type Department Care Team (Late st Contact Info) Description 03/04/2024 Abstract [facility] OB [address] [place] [address] Slava Castro, DO [address] [place], [facility] Social History Tobacco Use Types Packs/Day [...] often do you attend chur ch or oriental orthodox services? More than 4 times per year 05/19/2023 Do you belong to any clubs o r organizations such as mandaeism groups, unions, fraternal or athletic groups, or [...] Recorded Patient Health Questionnaire-2 Score 1 09/01/2023 [facility] of Occupat ional [facility] - Occupational Stress Questionnaire Answer Date [...] place to sleep or slept in a penitentiary (including now)? No 05/19/2023 Estimated Date of [...] Description 08/04/2024 2:20 PM EDT Routine [facility] [address] [facility] [place] [address] Slava Castro DO [address] [place] [address] [place], [place] [address] 09/07/2024 1:00 PM EDT Office Visit [facility] [address] [place] [address] Анна Ha NP [address] [place] [address] 12/15/2024 3:00 PM EDT Office Visit [facility] [address] [facility] [place] [address] Slava Castro, [address] [place] [address] [address] [place], [place] [address] documented as of this encounter Goals Goal Patient Goal Type Associated Problems Recent Progress Patient-Stated? Author Reminders Care Plan OB Reminders No Open Scheduling, Background documented as of this encounter Visit Diagnoses Not on filedocumented in this encounter Additional Health Concerns Active Problems Noted Date Diagnosed Date OB Reminders 02/11/2024 documented as of this encounter Care Teams Research Advisor Relationship Specialty Start Date End Date aPrag Bradley MD [address] [place] [address] PCP - General Family Medicine 08/14/22 Анна Ha NP [address] [place] [address] PCP - [facility] 08/25/23 documented as of this encounter
--- OUTSIDE RECORDS SUMMARY | 2024-08-04 11:06 | XMS_ITS | Encounter Summary ---
Author Organization [facility] Address [address] [place] [address] Care Team Providers Care Junior Database Administrator Name Role Phone Parag Bradley MD Primary Care Provider Анна Ha NP Unavailable [phone] Encounter Details Date Type Department Care Team (Late st Contact Info) Description 07/26/2024 Abstract [facility] OB [address] [place] [address] Slava Castro, DO [address] [place], [facility] Social History Tobacco Use Types Packs/Day [...] often do you attend chur ch or orthodoxy services? More than 4 times per year [...] Recorded Patient Health Questionnaire-2 Score 0 06/08/2024 [facility] of Occupat ional [facility] - Occupational Stress Questionnaire Answer Date Recorded [...] place to sleep or slept in a fci (including now)? No 05/19/2023 Estimated Date of [...] Description 08/04/2024 2:20 PM EDT Routine [facility] OB [address] [facility] [place] [address] Slava Castro DO [address] [place] [address] [address] [place], [place] [address] 09/07/2024 1:00 PM EDT Office Visit [facility] [address] [place] [address] Анна Ha NP [address] [place] [address] 12/15/2024 3:00 PM EDT Office Visit [facility] OB [address] [facility] [place] [address] Slava Castro, [address] [place] [address] [address] [place], [place] [address] documented as of this encounter Goals Goal Patient Goal Type Associated Problems Recent Progress Patient-Stated? Author Reminders Care Plan OB Reminders No Open Scheduling, Background documented as of this encounter Visit Diagnoses Not on filedocumented in this encounter Additional Health Concerns Active Problems Noted Date Diagnosed Date OB Reminders 02/11/2024 documented as of this encounter Care Teams Junior Database Administrator Relationship Specialty Start Date End Date Parag Bradley MD [address] [place] [address] PCP - General Family Medicine 08/14/22 Анна Ha NP [address] [place] [address] PCP - [facility] 08/25/23 documented as of this encounter
--- OUTSIDE RECORDS SUMMARY | 2024-08-04 11:06 | XMS_ITS | Clinical Summary ---
Author Organization [facility] Address [address] [place] [address] Care Team Providers Care Mortgage Loan Officer Originator Name Role Phone Parag Bradley MD Primary Care Provider [phone] Анна Ha NP Unavailable [phone] Allergies Active Allergy Reactions Criticality Noted [...] Encounters Date Type Department Care Team Description 08/03/2024 Travel 07/28/2024 Clinisync Result Encounter [facility] External Department Unsolicited Provider, Generic External Data 07/26/2024 Abstract [facility] [address] [place] [address] Orlin Castro DO 07/23/2024 Clinisync Result Encounter [facility] External Department Unsolicited Provider, Generic External Data 07/21/2024 2:20 PM EDT Routine [facility] [address] [place] [address] Vidya Sepulveda PA Third trimester ; 30 weeks gestation of ; History of gestational diabetes 07/21/2024 Telephone [facility] [address] [place] [address] Lizzy Wood MA 07/17/2024 Clinisync Result Encounter [facility] External Department Unsolicited Provider, Generic External Data 07/14/2024 Travel 07/08/[address] [place] [address] Leesa Coon MA 07/07/2024 Patient Outreach [facility] [address] [place] [address] Vidya Oliva LPN 07/06/2024 1:50 PM EDT Routine NOM[facility] [address] [place] [address] Orlin Castro DO Third trimester ; 28 weeks gestation of ; Elevated glucose tolerance test; Diabetes mellitus screening; SGA (small for gestational age) 07/06/2024 1:30 PM EDT Ancillary Procedure [facility] [address] [place] [address] Antepartum multigravida of advanced maternal age 0507/05/2024 Clinisync Result Encounter NOMS External Department Unsolicited Provider, [facility] External Data 06/16/2024 1:20 PM EDT Routine [facility] [address] [place] [address] Ximena Carver NP Second trimester ; 25 weeks gestation of ; Screen for STD (sexually transmitted disease); Diabetes mellitus screening; Antepartum multigravida of advanced maternal age 0406/16/2024 External Result Encounter NOMS External Department Unsolicited Orlin Castro DO 06/16/2024 Bamboo flowsheet [facility] [address] [place] [address] Ximena Carver NP 06/15/2024 Travel 06/08/2024 Patient Outreach [facility] [address] [place] [address] Vidya Oliva LPN 06/03/2024 Travel 05/10/2024 2:40 PM EDT Routine [facility] [address] [place] [address] [place] [address] Orlin Castro DO Second trimester ; 20 weeks gestation of ; Heartburn during in second trimester 05/10/2024 1:30 PM EDT Ancillary Procedure [facility] [address] [place] [address] Screening, , for anatomic survey 05/06/2024 Patient Outreach [facility] [address] [place] [address] Vidya Oliva LPN 05/04/2024 Travel from Last [...] Cigarettes Q uit: 2015 Smokeless Tobacco: Never Tobacco Cessation:Counseling Given: Not [...] often do you attend chur ch or jehovah's witness services? More than 4 times per year 05/19/2023 Do you belong to any clubs o r organizations such as confucianist groups, unions, fraternal or athletic groups, or [...] Recorded Patient Health Questionnaire-2 Score 0 06/08/2024 [facility] - Occupational Stress [...] place to sleep or slept in a residential (including now)? No 05/19/2023 Estimated Date of [...] Description 08/04/2024 2:20 PM EDT Routine [facility] OB [address] [place] [address] [place] [address] Orlin Castro, [address] [place], [place] [address] 09/07/2024 1:00 PM EDT Office Visit [facility] [address] [place] [address] Анна Ha, FRONT WORKER [address] [place] [address] 12/15/2024 3:00 PM EDT Office Visit [facility] OB [address] [place] [address] Orlin Castro, [address] [place] [address] Health Maintenance Due Date Last Done Comments Cervical Cancer Screening 12/09/2028 HPV/Cotest 12/09/2028 Pap Smear 12/09/2028 12/10/2023, 11/25/2022 Influenza Vaccine Discontinued 12/08/2017 Goals Goal Patient Goal Type Associated Problems Recent Progress Patient-Stated? Author Reminders Care Plan OB Reminders No Open Scheduling, Background Procedures Procedure Name Priority Date/Time Associated Diagnosis Comments US OB GROWTH 07/28/2024 10:48 AM EDT GLUCOSE TOLERANCE 3 HOUR Routine 07/23/2024 9:09 AM EDT GLUCOSE 1 HOUR Routine 07/17/2024 9:48 AM [...] Recently Relevant to Health Maintenance Results * US OB GROWTH (07/28/2024 10:48 AM EDT) Anatomical Region Laterality Modality Other 07/28/2024 10:4 8 AM EDT Narrative 07/28/2024 10:[place] [address] Ultrasound Report Signed Patient: ROXANNE MARSHALL MR#: [id number] : 1990 Acct:[id number] Age/Sex: 33 / F ADM Date: 07/28/24 Loc: US Attending Dr: Orlin Castro D.O. Ordering Physician: Orlin Castro D.O. Date of Service: 07/28/24 Procedure(s): US OB growth Accession Number(s): [id number] cc: Анна Ha NP; Orlin Castro D.O. The [place] [address] Patient Name: ROXANNE MARSHALL MRN: [id number] date: 1990 Sex: F Assigned Patient Location: Current Patient Location: US Accession/Order Number: [id number] Exam Date: 07/28/2024 10:44 Report Date: 07/28/2024 10:48 At the request of: ORLIN CASTRO DO Procedure: US OB growth ULTRASOUND OB GROWTH CLINICAL DATA: History of gestational diabetes COMPARISON: 02/11/2024 There is a single live intrauterine gestation in cephalic presentation. There is cardiac and somatic activity with heart rate of 144 beats per minutes. The amniotic fluid index measures 10.6 cm which is in low-normal range. The following measurements were obtained: Biparietal diameter 8.1 cm 32 weeks 3 days 62% Head circumference 28.8 cm 31 weeks 5 days 14% Abdominal circumference 26.4 cm 30 weeks 3 days 15% Femur length 5.7 cm 29 weeks 6 days 4% The composite ultrasound age based on these measurements is 31 weeks 1 day +/- 2 weeks 1 day. This is within standard deviation of dates based on the comparison. The estimated weight is 3 lbs. 8 oz. +/- 8 ounces (10%). US/US OB growth IMPRESSION: SINGLE LIVE INTRAUTERINE GESTATION WITH ULTRASOUND AGE OF 31 WEEKS 1 DAY. APPROPRIATE INTERVAL GROWTH. Impression dictated by: Isatu Auguste M.D. 07/28/2024 10:48 AM Dictation Location: [place] [address] Electronically authenticated by: [id number] Y Date: 07/28/2024 10:48 Dictated By: Isatu Auguste M.D. Signed By: 07/28/24 1051 DD/ 1048 TD/TT: Lumber Stacker Operator: Procedure Note Radiology, Radiologist, MD - 07/28/2024 [place] [address] Ultrasound Report Signed Patient: ROXANNE MARSHALL DMR#: [id number] : 1990Acct:[id number] Age/Sex: 33 / FADM Date: 07/28/24 Loc: US Attending Dr: Orlin Castro D.O. Ordering Physician: Orlin Castro D.O. Date of Service: 07/28/24 Procedure(s): US OB growth Accession Number(s): [id number] cc: Анна Ha FRONT WORKER; Orlin Castro D.O. The [place] [id number] Patient Name: ROXANNE MARSHALL MRN: [id number] date: 1990 Sex: F Assigned Patient Location: US Current Patient Location: US Accession/Order Number: [id number] Exam Date: 07/28/2024 10:44 Report Date: 07/28/2024 10:48 At the request of: ORLIN CASTRO DO Procedure: US OB growth ULTRASOUND OB GROWTH CLINICAL DATA: History of gestational diabetes COMPARISON: 02/11/2024 There is a single live intrauterine gestation in cephalic presentation.There is cardiac and somatic activity with heart rate of 144 beats per minutes. The amniotic fluid index measures 10.6 cm which is in low-normal range. The following measurements were obtained: Biparietal diameter 8.1 cm 32 weeks 3 days 62% Head circumference 28.8 cm 31 weeks 5 days 14% Abdominal circumference 26.4 cm 30 weeks 3 days 15% Femur length 5.7 cm 29 weeks 6 days 4% The composite ultrasound age based on these measurements is 31 weeks 1 day+/- 2 weeks 1 day. This is within standard deviation of dates based on the comparison. The estimated weight is 3 lbs. 8 oz. +/- 8 ounces(10%). US/US OB growth IMPRESSION: SINGLE LIVE INTRAUTERINE GESTATION WITH ULTRASOUND AGE OF 31 WEEKS 1 DAY. APPROPRIATE INTERVAL GROWTH. Impression dictated by: Isatu Auguste M.D. 07/28/2024 10:48 AM Dictation Location: [place] [address] Electronically authenticated by: [id number] Y Date: 0:48 Dictated By: Isatu Auguste M.D. Signed By:07/28/24 1051 DD/ 1048 TD/TT: Lumber Stacker Operator: us Generic External Data Provider [facility] Final Result * (ABNORMAL) GLUCOSE TOLERANCE 3 HOUR (07/23/2024 9:09 AM EDT) GLUCOSE TOLERANCE 3 HOUR (H) mg/dL TB Comment: GLU FAST 97H (<95) Col: 07/23/24 0909 GLU 1HR 151 (<180) Col: 07/23/24 1013 GLU 2HR 151 (<155) Col: 07/23/24 1113 GLU 3HR 123 (<140) Col: 07/23/24 1213 07/23/2024 9:09 AM EDT 07/23/2024 9:14 AM EDT Narrative [facility] - 07/23/2024 12:46 PM EDT us Orlin Gloria DO LAB BLOOD ORDERABLES Final [facility]ul t [facility] * (ABNORMAL) GLUCOSE 1 HOUR (07/17/2024 9:48 AM EDT) Only the most recent of2 resultswithin the time period is included. GLUCOSE 1 HOUR 162(H) <130 mg/dL TB 07/17/2024 9:48 AM EDT 07/17/2024 9:49 AM EDT Narrative [facility] - 07/17/2024 10:52 AM EDT us Orlin Gloria DO LAB BLOOD ORDERABLES Final Resul t [facility] * POCT urinalysis dipstick manually resulted (07/06/2024 [...] - 9 Protein, UA Negative Negative - 2000(20) ++++ mg/dL Urobilinogen, UA 0.2 0.2 - 12 mg/dL Leukocytes, UA Negative Negative - 500+++ Tano/mcL Nitrite, UA Negative Negative - Positive Urine 07/06/2024 2:18 PM EDT Orlin Gloria DO POINT OF CARE TEST ENTER/EDIT OR [...] II, MD, PHD at 07-Jul-2024 10:00:26 AM [facility] Procedure Note Tabitha Campbell MD - 07/07/2024 EXAM: US OB FOLLOW [...] signed by TABITHA CAMPBELL II, MD, PHD [id number] 10:00:26 AM [facility] us Orlin Gloria DO IM OB US PROCEDURES Final Resul t * (ABNORMAL) ALL CBC WITH AUTO DIFF (07/05/2024 10:48 AM EDT) [facility]H WBC 7.4 4.0 - 11.0 10 3/uL [...] AUTO 0.03 0.00 - 0.03 10 3/uL TB 07/05/2024 10:4 8 AM EDT 07/05/2024 10:48 AM EDT Narrative [facility] - 07/05/2024 10:58 AM EDT Ximena Nolenryley RENEE [facility] Final Result [facility] * RECURRENT VAGINITIS (HTRX) (06/16/2024 2:27 PM EDT) [facility] ATOPOBIUM VAGINAE 0.000 19.961 - 24.689 ppm 06/17/2024 8:02 AM EDT [facility] ATOPOBIUM VAGINAE Not Detected 19.961 - 24.689 ppm 06/17/2024 8:02 AM EDT [facility] BVAB 2,3 (BACTERIAL VAGINOSIS ASSOCIATED BACTERIA 2, 3); MOBILUNCUS SPP 0.000 19.961 - 24.689 ppm 06/17/2024 8:02 AM EDT [facility] BVAB 2,3 (BACTERIAL VAGINOSIS ASSOCIATED BACTERIA 2, 3); MOBILUNCUS SPP Not Detected 19.961 - 24.689 ppm 06/17/2024 8:02 AM EDT [facility] RANJANA ALBICANS, PARAPSILOSIS, TROPICALIS 0.000 19.961 - 30.770 ppm 06/17/2024 8:02 AM EDT [facility] RANJANA ALBICANS, PARAPSILOSIS, TROPICALIS Not Detected 19.961 - 30.770 ppm 06/17/2024 8:02 AM EDT [facility] RANJANA GLABRATA 0.000 23.000 - 32.138 ppm 06/17/2024 8:02 AM EDT [facility] RANJANA GLABRATA Not Detected 23.000 - 32.138 ppm 06/17/2024 8:02 AM EDT [facility] RANJANA KRUSEI 0.000 23.000 - 32.271 ppm 06/17/2024 8:02 AM EDT [facility] RANJANA KRUSEI Not Detected 23.000 - 32.271 ppm 06/17/2024 8:02 AM EDT [facility] CHLAMYDIA TRACHOMATIS 0.000 23.000 - 31.467 ppm 06/17/2024 8:02 AM EDT [facility] CHLAMYDIA TRACHOMATIS Not Detected 23.000 - 31.467 ppm 06/17/2024 8:02 AM EDT [facility] GARDNERELLA VAGINALIS 0.000 19.961 - 24.689 ppm 06/17/2024 8:02 AM EDT [facility] GARDNERELLA VAGINALIS Not Detected 19.961 - 24.689 ppm 06/17/2024 8:02 AM EDT [facility] MEGASPHAERA (TYPES 1, 2) 0.000 19.961 - 24.689 ppm 06/17/2024 8:02 AM EDT [facility] MEGASPHAERA (TYPES 1, 2) Not Detected 19.961 - 24.689 ppm 06/17/2024 8:02 AM EDT [facility] NEISSERIA GONORRHOEAE 0.000 23.000 - 32.117 ppm 06/17/2024 8:03 AM EDT [facility] NEISSERIA GONORRHOEAE Not Detected 23.000 - 32.117 ppm 06/17/2024 8:03 AM EDT [facility] TRICHOMONAS VAGINALIS 0.000 23.000 - 32.119 ppm 06/17/2024 8:02 AM EDT [facility] TRICHOMONAS VAGINALIS Not Detected 23.000 - 32.119 ppm 06/17/2024 8:02 AM EDT [facility] MYCOPLASMA GENITALIUM 0.000 19.961 - 24.689 ppm 06/17/2024 8:02 AM EDT [facility] MYCOPLASMA GENITALIUM Not Detected 19.961 - 24.689 ppm 06/17/2024 8:02 AM EDT [facility] Tissue 06/16/2024 2:27 PM EDT 06/17/2024 1:54 AM EDT us Orlin Castro DO LAB BLOOD ORDERABLES Final Resul t [facility] [place] [facility] [place] [place] [address] * US OB 14+ weeks anatomy scan [...] II, MD, PHD at 11-May-2024 12:36:27 AM [facility] Procedure Note Tabitha Campbell MD - 05/11/2024 EXAM: US OB 14+ [...] Signed:Electronically signed by TABITHA CAMPBELL II, MD, PHDat 11-May-2024 12:36:27 AM [facility] us Vidya DESAI IMG OB US PROCEDURES Final Resul t * Pap Smear (12/10/2023 12:00 AM EDT) Swab Cervical swab / Unknown us Orlin Castro DO LAB CYTOLOGY ORDERABLES Final Re sult EXTERNAL LAB from Last 3 Months or Most Recently Relevant to Health Maintenance Additional Health Concerns Active Problems Noted Date Diagnosed Date OB Reminders 02/11/2024 Insurance [employer] Care Teams Mortgage Loan Officer Originator Relationship Specialty Start Date End Date Parag Bradley MD [address] [place] [address] PCP - General Family Medicine 08/14/22 Анна Ha NP [address] [place] [address] PCP - [facility] 08/25/23
--- OUTSIDE RECORDS SUMMARY | 2024-08-04 11:06 | XMS_ITS | Encounter Summary ---
Author Organization [facility] Address [address] [place] [address] Care Team Providers Care Loss Prevention/Safety District Manager Name Role Phone Parag Bradley MD Primary Care Provider Анна Ha NP Unavailable [phone] Encounter Details Date Type Department Care Team (Late st Contact Info) Description 03/01/2024 Abstract [facility] [address] [place] [address] Slava Castro, DO [address] [place] [address] [place], [facility] Social History Tobacco Use Types Packs/Day Years [...] often do you attend chur ch or zoroastrianism services? More than 4 times per year 05/19/2023 Do you belong to any clubs o r organizations such as roman catholic groups, unions, fraternal or athletic groups, or [...] Recorded Patient Health Questionnaire-2 Score 1 09/01/2023 [facility] - Occupational Stress Questionnaire Answer Date Recorded [...] Description 08/04/2024 2:20 PM EDT Routine [facility] [address] [place] [address] Slava Castro DO [address] [place] [address] [address] [place], [place] [address] 09/07/2024 1:00 PM EDT Office Visit [facility] [address] [place] [address] Анна Ha NP [address] [place] [address] 12/15/2024 3:00 PM EDT [facility] [address] [place] [address] Slava Castro, [address] [place] [address] [address] [place], [place] [phone] documented as of this encounter Goals Goal Patient Goal Type Associated Problems Recent Progress Patient-Stated? Author Reminders Care Plan OB Reminders No Open Scheduling, Background documented as of this encounter Visit Diagnoses Not on filedocumented in this encounter Additional Health Concerns Active Problems Noted Date Diagnosed Date OB Reminders 02/11/2024 documented as of this encounter Care Teams Loss Prevention/Safety District Manager Relationship Specialty Start Date End Date Parag Bradley MD [address] [place] [address] PCP - General Family Medicine 08/14/22 Анна Ha NP [address] [place] [address] PCP - [facility] 08/25/23 documented as of this encounter
--- OUTSIDE RECORDS SUMMARY | 2024-08-04 11:06 | XMS_ITS | Encounter Summary ---
Author Organization [facility] Address [address] [place] [address] Care Team Providers Care Renewals Manager Name Role Phone Parag Bradley MD Primary Care Provider [phone] Анна Ha NP Unavailable [phone] Encounter Details Date Type Department Care [...] any clubs o r organizations such as religion groups, unions, fraternal or athletic groups, or [...] Recorded Patient Health Questionnaire-2 Score 1 09/01/2023 [facility]at [facility] - Occupational Stress Questionnaire Answer Date [...] in a retirement (including now)? No 05/19/2023 Estimated Date of [...] Description 08/04/2024 2:20 PM EDT Routine [facility] OB [address] [place] [address] [place] [address] Orlin Castro, [address] [place], [place] [address] 09/07/2024 1:00 PM EDT Office Visit [facility] [address] [place] [address] Анна Ha, OFFICE SYSTEMS TECHNOLOGY INSTRUCTOR [address] [place] [address] 12/15/2024 3:00 PM EDT Office Visit [facility] OB [address] [place], [place] [address] [place] [address] Orlin Castro, [address] [place], [place] [address] documented as of this encounter Goals Goal [...] AM EST Narrative 02/12/2024 4:31 [place] [address] Ultrasound Report Signed Patient: ROXANNE MARSHALL MR#: [id number] : 1990 Acct:[id number] Age/Sex: 33 / F ADM Date: 02/11/24 Loc: [facility] Attending Dr: Orlin Castro D.O. Ordering Physician: Orlin Castro D.O. Date of Service: 02/11/24 Procedure(s): US OB transvaginal Accession Number(s): [id number] cc: Анна Ha OFFICE SYSTEMS TECHNOLOGY INSTRUCTOR; Orlin Castro D.O. [address] [address] Patient Name: ROXANNE MARSHALL MRN: [id number] date: 1990 Sex: F Assigned Patient Location: [facility] Current Patient Location: Accession/Order Number: [id number] Exam Date: 02/11/2024 09:39 Report Date: 02/12/2024 [...] Signed By: 02/12/24 0431 DD/ 0429 TD/TT: Stocking Inspector: Procedure Note Radiology, Radiologist, MD Herr 02/12/2024 [place] [address] Ultrasound Report Signed Patient: ROXANNE MARSHALL DMR#: [id number] : 1990Acct:[id number] Age/Sex: 33 / FADM Date: 02/11/24 Loc: [facility]OMS Attending Dr: Orlin Castro D.O. Ordering Physician: Orlin Castro D.O. Date of Service: 02/11/24 Procedure(s): US OB transvaginal Accession Number(s): [id number] cc: Анна Ha OFFICE SYSTEMS TECHNOLOGY INSTRUCTOR; Orlin Castro D.O. The [place] [id number] Patient Name: ROXANNE MARSHALL MRN: [id number] date: 1990 Sex: F Assigned Patient Location: [facility] Current Patient Location: Accession/Order Number: [id number] Exam Date: 02/11/2024 09:39 Report Date: 02/12/2024 [...] M.D. Signed By:02/12/24 0431 DD/ 0429 TD/TT: Stocking Inspector: us Generic External Data Provider [facility] Final Result documented in this encounter Visit Diagnoses Not on filedocumented in this encounter Additional Health Concerns Active Problems Noted Date Diagnosed Date OB Reminders 02/11/2024 documented as of this encounter Care Teams Renewals Manager Relationship Specialty Start Date End Date Parag Bradley MD [address] [place] [address] PCP - General Family Medicine 08/14/22 Анна Ha NP [address] [place] [address] PCP - [facility] 08/25/23 documented as of this encounter
--- OUTSIDE RECORDS SUMMARY | 2024-08-04 11:06 | XMS_ITS | Encounter Summary ---
Author Organization [facility] Address [address] [place] [address] Care Team Providers Care Department Editor Name Role Phone Parag Bradley MD Primary Care Provider [phone] Анна Ha NP Unavailable [phone] Encounter Details Date Type Department Care Team (Late st Contact Info) Description 07/23/2024 Clinisync Result Encounter [facility] External Department [...] often do you attend chur ch or holiness services? More than 4 times per year 05/19/2023 Do you belong to any clubs o r organizations such as bahai groups, unions, fraternal or athletic groups, or [...] Recorded Patient Health Questionnaire-2 Score 0 06/08/2024 [facility] - Occupational [...] Description 08/04/2024 2:20 PM EDT Routine [facility] OB [address] [facility] [place] [address] Slava Castro, [facility] [place], [place] [address] 09/07/2024 1:00 PM EDT Office Visit [facility] [address] [place] [address] Анна Ha, GRAPHICS ARTIST [address] [place] [address] 12/15/2024 3:00 PM EDT Office Visit [facility] OB [address] [place], [place] [address] [place] [address] Slava Castro, [facility] [place], [place] [address] documented as of this encounter Goals Goal Patient Goal Type Associated Problems Recent Progress Patient-Stated? Author Reminders Care Plan OB Reminders No Open Scheduling, Background documented as of this encounter Procedures Procedure Name Priority Date/Time Associated Diagnosis Comments GLUCOSE TOLERANCE 3 HOUR Routine 07/23/2024 9:09 AM EDT documented in this encounter Results * (ABNORMAL) GLUCOSE TOLERANCE 3 HOUR (07/23/2024 9:09 AM EDT) GLUCOSE TOLERANCE 3 HOUR (H) mg/dL [facility] Comment: GLU FAST 97H (<95) Col: 07/23/24 0909 GLU 1HR 151 (<180) Col: 07/23/24 1013 GLU 2HR 151 (<155) Col: 07/23/24 1113 GLU 3HR 123 (<140) Col: 07/23/24 1213 07/23/2024 9:09 AM EDT 07/23/2024 9:14 AM EDT Narrative [facility] - 07/23/2024 12:46 PM EDT us Slava Gloria DO LAB BLOOD ORDERABLES Final [facility]ul t [facility] documented in this encounter Visit Diagnoses Not on filedocumented in this encounter Additional Health Concerns Active Problems Noted Date Diagnosed Date OB Reminders 02/11/2024 documented as of this encounter Care Teams Department Editor Relationship Specialty Start Date End Date Parag Bradley MD [address] [place] [address] PCP - General Family Medicine 08/14/22 Анна Ha NP [address] [place] [address] PCP - [facility] 08/25/23 documented as of this encounter
--- OUTSIDE RECORDS SUMMARY | 2024-08-04 11:06 | XMS_ITS | Encounter Summary ---
Author Organization [facility] Address [address] [place] [address] Care Team Providers Care Supervisor Estimator And Drafter Name Role Phone Parag Bradley MD Primary Care Provider [phone] Анна aH NP Unavailable [phone] Encounter Details Date Type Department Care Team (Late st Contact Info) Description 07/28/2024 Clinisync Result Encounter [facility] External Department [...] often do you attend chur ch or mandaen services? More than 4 times per year 05/19/2023 Do you belong to any clubs o r organizations such as episcopalian groups, unions, fraternal or athletic groups, or [...] Recorded Patient Health Questionnaire-2 Score 0 06/08/2024 [facility] of Occupat ional Health - Occupational Stress [...] a care home (including now)? No 05/19/2023 Estimated Date [...] Description 08/04/2024 2:20 PM EDT Routine [facility] OB [address] [place] [address] [place] [address] Orlin Castro, [facility] [place], [place] [address] 09/07/2024 1:00 PM EDT Office Visit [facility] [address] [place] [address] Анна Ha, VETERINARY MEDICINE SCIENTIST [address] [place] [address] 12/15/2024 3:00 PM EDT Office Visit [facility] OB [address] [place], [place] [address] [place] [address] Orlin Castro, [facility] [place], [place] [id number] documented as of this encounter Goals Goal Patient Goal Type Associated Problems Recent Progress Patient-Stated? Author Reminders Care Plan OB Reminders No Open Scheduling, Background documented as of this encounter Procedures Procedure Name Priority Date/Time Associated Diagnosis Comments US OB GROWTH 07/28/2024 10:48 AM EDT documented in this encounter Results * US OB GROWTH (07/28/2024 10:48 AM EDT) Anatomical Region Laterality Modality Other 07/28/2024 10:4 8 AM EDT Narrative 07/28/2024 10:51 [place] [address] Ultrasound Report Signed Patient: ROXANNE MARSHALL MR#: [id number] : 1990 Acct:[id number] Age/Sex: 33 / F ADM Date: 07/28/24 Loc: US Attending Dr: Orlin Castro D.O. Ordering Physician: Orlin Castro D.O. Date of Service: 07/28/24 Procedure(s): US OB growth Accession Number(s): [id number] cc: Анна Ha NP; Orlin Castro D.O. The [place] [address] Patient Name: ROXANNE MARSHALL MRN: [id number] date: 1990 Sex: F Assigned Patient Location: US Current Patient Location: US Accession/Order Number: [id number] Exam Date: 07/28/2024 10:44 Report Date: 07/28/2024 [...] Auguste M.D. 07/28/2024 10:48 AM Dictation Location: [place] [address] Electronically authenticated by: [id number] Y Date: 07/28/2024 10:48 Dictated By: Isatu Auguste M.D. Signed By: 07/28/24 1051 DD/ 1048 TD/TT: [employer]: Procedure Note Radiology, Radiologist, MD - 07/28/2024 [place] [address] Ultrasound Report Signed Patient: ROXANNE MARSHALL DMR#: [id number] : 1990Acct:[id number] Age/Sex: 33 / FADM Date: 07/28/24 Loc: US Attending Dr: Orlin Castro D.O. Ordering Physician: Orlin Castro D.O. Date of Service: 07/28/24 Procedure(s): US OB growth Accession Number(s): [id number] cc: Анна Ha VETERINARY MEDICINE SCIENTIST; Orlin Castro D.O. The [place] [address] Patient Name: ROXANNE MARSHALL MRN: [id number] date: 1990 Sex: F Assigned Patient Location: Current Patient Location: US Accession/Order Number: [id number] Exam Date: 07/28/2024 10:44 Report Date: 07/28/2024 [...] Auguste M.D. 07/28/2024 10:48 AM Dictation Location: [place] [address] Electronically authenticated by: [id number] Y Date: 0:48 Dictated By: Isatu Auguste M.D. Signed By:07/28/24 1051 DD/ 1048 TD/TT: [employer]: us Generic External Data Provider [facility] Final Result documented in this encounter Visit Diagnoses Not on filedocumented in this encounter Additional Health Concerns Active Problems Noted Date Diagnosed Date OB Reminders 02/11/2024 documented as of this encounter Care Teams Supervisor Estimator And Drafter Relationship Specialty Start Date End Date Parag Bradley MD [address] [place] [address] PCP - General Family Medicine 08/14/22 Анна Ha NP [address] [place] [address] PCP - [facility] 08/25/23 documented as of this encounter
--- OUTSIDE RECORDS SUMMARY | 2024-08-04 11:06 | XMS_ITS | Encounter Summary ---
Author Organization [facility] Address [address] [place] [address] Care Team Providers Care Pairing Machine Operator Name Role Phone Parag Bradley MD Primary Care Provider [phone] Анна Ha TAX EXAMINING TECHNICIAN Unavailable [phone] Encounter Details Date Type Department Care Team (Late Contact Info) Description 03/04/2023 Abstract [facility] [address] [place] [address] Анна Ha, TAX EXAMINING TECHNICIAN [address] [place] [address] Social History Tobacco Use Types Packs/Day Years [...] PM EDT Routine [facility] OB [address] [place] [address] Slava Castro DO [address] [place] [address] 09/07/2024 1:00 PM EDT Office Visit [facility] [address] [place] [address] Анна Ha, VÍCTOR [address] [place] [address] 12/15/2024 3:00 PM EDT Office Visit [facility] OB [address] [facility] [place] [address] Slava Castro DO [address] [facility] [place] [address] documented as of this encounter Visit Diagnoses Not on filedocumented in this encounter Care Teams Pairing Machine Operator Relationship Specialty Start Date End Date Parag Bradley MD [address] [place] [address] PCP - General Family Medicine 08/14/22 Анна Ha, VÍCTOR [address] [place] [address] PCP - [facility] 08/25/23 documented as of this encounter
--- OUTSIDE RECORDS SUMMARY | 2024-08-04 11:06 | XMS_ITS | Encounter Summary ---
Author Organization [facility] Address [address] [place] [address] Care Team Providers Care Paginator Name Role Phone Parag Bradley MD Primary Care Provider Анна Ha NP Unavailable [phone] Encounter Details Date Type Department Care Team (Late st Contact Info) Description 02/11/2024 Abstract [facility] OB [address] [place] [address] Slava Castro, DO [address] [place] [address] [place] [place], [facility] Social History Tobacco Use Types Packs/Day [...] any clubs o r organizations such as restorationism groups, unions, fraternal or athletic groups, or [...] Recorded Patient Health Questionnaire-2 Score 1 09/01/2023 [facility] of Occupat ional [facility] - Occupational Stress Questionnaire Answer [...] Description 08/04/2024 2:20 PM EDT Routine [facility] OB [address] [facility] [place] [address] Slava Castro DO [address] [place] [address] [address] [place], [place] [address] 09/07/2024 1:00 PM EDT Office Visit [facility] [address] [place] [address] Анна Ha NP [address] [place] [address] 12/15/2024 3:00 PM EDT Office Visit [facility] OB [address] [facility] [place] [address] Slava Castro, [address] [place] [address] [address] [place], [place] [address] documented as of this encounter Goals Goal Patient Goal Type Associated Problems Recent Progress Patient-Stated? Author Reminders Care Plan OB Reminders No Open Scheduling, Background documented as of this encounter Visit Diagnoses Not on filedocumented in this encounter Additional Health Concerns Active Problems Noted Date Diagnosed Date OB Reminders 02/11/2024 documented as of this encounter Care Teams Paginator Relationship Specialty Start Date End Date Parag Bradley MD [address] [place] [address] PCP - General Family Medicine 08/14/22 Анна Ha NP [address] [place] [address] PCP - [facility] 08/25/23 documented as of this encounter
--- OUTSIDE RECORDS SUMMARY | 2024-08-04 11:06 | XMS_ITS | Encounter Summary ---
Author Organization [facility] Address [address] [place] [address] Care Team Providers Care Professor Of Theatre Name Role Phone Parag Bradley MD Primary Care Provider [phone] Анна Ha NP Unavailable Encounter Details Date Type Department Care Team (Latest Contact Info) Description 08/03/2024 Travel Social History Tobacco Use Types Packs/Day [...] How often do you attend chur or alevism services? More than 4 times per year [...] Recorded Patient Health Questionnaire-2 Score 0 06/08/2024 [facility] of Occupat ional Health - Occupational Stress [...] EDT Routine [facility] OB [address] [place] [address] Slava Castro, DO [address] [place], [place] [address] 09/07/2024 1:00 PM EDT Office Visit [facility] [address] [place] [address] Анна Ha NP [address] [place] [address] 12/15/2024 3:00 PM EDT Office Visit [facility] OB [address] [facility] [place] [address] Slava Castro, DO [address] [place] [address] [place], [place] [address] documented as of this encounter Goals Goal Patient Goal Type Associated Problems Recent Progress Patient-Stated? Author Reminders Care Plan OB Reminders No Open Scheduling, Background documented as of this encounter Visit Diagnoses Not on filedocumented in this encounter Additional Health Concerns Active Problems Noted Date Diagnosed Date OB Reminders 02/11/2024 documented as of this encounter Care Teams Professor Of Theatre Relationship Specialty Start Date End Date Parag Bradley MD [address] [place] [address] PCP - General Family Medicine 08/14/22 Анна Ha NP [address] [place] [address] [facility] 08/25/23 documented as of this encounter
--- OUTSIDE RECORDS SUMMARY | 2024-08-04 11:06 | XMS_ITS | Encounter Summary ---
Author Organization [facility] Address [address] [place] [address] Care Team Providers Care Tenoner Operator Name Role Phone Parag Bradley MD Primary Care Provider [phone] Анна Ha NP Unavailable Encounter Details Date Type Department Care Team (Late st Contact Info) Description 07/21/2024 Telephone [facility] [address] [place] [address] Sailaja [place], [place] [address] [address] Social History Tobacco Use Types Packs/Day Years [...] any clubs o r organizations such as buddhist groups, unions, fraternal or athletic groups, or [...] Recorded Patient Health Questionnaire-2 Score 0 06/08/2024 [facility] of Occupat ional [facility] - Occupational Stress Questionnaire Answer Date Recorded [...] Description 08/04/2024 2:20 PM EDT Routine [facility] OB [address] [facility] [place] [address] Slava Castro, [address] [place] [address] 09/07/2024 1:00 PM EDT Office Visit [facility] [address] [place] [address] Анна Ha, BIBLICAL STUDIES PROFESSOR [address] [place] [address] 12/15/2024 3:00 PM EDT Office Visit [facility] OB [address] [facility] [address] Slava Castro, DO [address] [place], [place] [address] [address] Scheduled Orders Name Type Priority Associated Diagnoses [...] documented as of this encounter Care Teams Tenoner Operator Relationship Specialty Start Date End Date Parag Bradley MD [address] [place] [address] PCP - General Family Medicine 08/14/22 Анна Ha NP [address] [place] [address] PCP - [facility] 08/25/23 documented as of this encounter
--- OUTSIDE RECORDS SUMMARY | 2024-08-04 11:06 | XMS_ITS | Referral Summary ---
Author Organization [facility] Address [address] [place] [address] Care Team Providers Care Rn Tele Name Role Phone Unavailable Primary Care Provider [...]
[2024-08-04 11:36] VITALS: BP 121/74; PULSE 68
== END 2024-08-04 12:05 | disposition home or self-care (01) ==
LOC: US 11:04 → FBC 11:06
PROVIDERS: PCP Nurse Practitioner; Visit Provider Physician Assistant
DX: O26.843 Uterine size-date discrepancy, third trimester (principal); Z3A.32 32 weeks gestation of pregnancy
CPT/HCPCS: 76818

== ENCOUNTER 2024-08-07 20:32 | Outpatient (OUT) | payer OTHER, SELFPAY ==
--- OUTSIDE RECORDS SUMMARY | 2021-03-22 12:00 | XMS_ITS | Continuity of Care Document ---
Author Organization [facility] Address [address] [place] [address] Phone Care Team Providers Care Maintenance Millwright Name Role Phone Tash Sandhu DMD Unavailable Unavailable Allergies, Adverse Reactions, Alerts Substance Reaction Status Criticality No Known Allergies Active No Inform ation Medications Medication Instructions Dosage Effective Dates (start - stop) Status Comments Mirena 20 mcg/24 hours (6 yrs) 52 mg intrauterine device - Active Procedures Procedure Date Nutrit Couns For Control Of [place] Dis Feb Bitewings-three Films Panoramic Film Comp Oral Eval New/estab Patient 2021 Oral Hygiene Instruction Limited Oral Eval Extract; Erupted Th/exposted Rt 021 Extract; Erupted Th/exposted Rt 021 Bitewig-single Film Intraoral-periapical 1st Film Advance Directives Directive Yes / No Effective Date File Name No Information Encounters Encounter Description Practice Location Reason(s) For Visit Diagnoses Date Provider Providers Copied on Encounter [facility], [address] [place] [address], [id number], tel:[phone] Dental Clinic DN (chief complaint) Encounter for screening for dental disorders Edson Bianchi. [address] [place] [address], [id number], [place]. tel:[phone] [facility], [address] [place] [address], [id number], tel:[phone] Dental Clinic Dental New (chief complaint) Encounter for screening for dental disorders Edson Bianchi. [address] [place], [place], [id number], [place]. tel:[phone] Family History Family Member Type Diagnosis Age At Onset Mother Problem Alive and well Father Problem Alive and well Mother Problem Cardiovascular disease Payers Payer name Insurance type Covered alliance party ID Aston jason(s) D Medicaid [facility] [place] [id number] Social History Type Description Quantity Date Captured [...]
--- OUTSIDE RECORDS SUMMARY | 2024-04-05 11:45 | XMS_ITS ---
Author Organization [facility] [address] [place] [address] Care Team Providers Care Expediter Service Order Name Role Phone Naida Valera Primary Care Provider REASON FOR VISIT EXT Encounters Encounter Location Date Provider Diagnosis [facility] [address] [place] [address] 04/05/2024 Naida Valera Plan Of Treatment Next Appt Details Provider Name:Naida ruff, 11/12/2024 10:30:00 AM, [address] [facility] [place], [address], Progress Notes * ROXANNE ROGERS DDOB: 9 (33 yo F)Acc No.[id number]:04/05/2024 Patient: ROXANNE KENNY Provider: Elizabeth Valera DDS :1990 A ge:33 Y S ex:Female Date:04/05/2024 Address:[address] [place], [place] [phone] Subjective: * Chief Complaints: * 1 . EXT. * Medical History: Objective: * Vitals: Assessment: Plan: * Treatment: * Images: * Electronic signature of Harjit Valera DDS on 08/07/2024 at 08:34 PM EDT Sign off status: Pending * Provider: Elizabeth Valera DDS Date: 0 04/05/2024 Generated for Adam son/Makenzie/Chet on: 0 08/07/2024 08:34 PM EDT
--- OUTSIDE RECORDS SUMMARY | 2024-04-19 09:00 | XMS_ITS ---
Author Organization [facility] [address] [place] [place] [address] Care Team Providers Care Sales Agent Business Services Name Role Phone Naida Valera Primary Care Provider REASON FOR VISIT FILLING Encounters Encounter Location Date Provider Diagnosis [facility] [address] [place] [address] 04/19/2024 Naida Valera Plan Of Treatment Next Appt Details Provider Name:Naida ruff, 11/12/2024 10:30:00 AM, [address] [facility] [place], [address], Progress Notes * ROXANNE ROGERS DDOB: [birth year] (33 yo F)Acc No.[id number]:04/19/2024 Patient: ROXANNE KENNY Provider: Elizabeth Valera DDS :1990 A ge:33 Y S ex:Female Date:04/19/2024 Address:[address] [place], [place] [phone] Subjective: * Chief Complaints: * 1 . FILLING. * Medical History: Objective: * Vitals: Assessment: Plan: * Treatment: * Images: * Electronic signature of Harjit Valera DDS on 08/07/2024 at 08:34 PM EDT Sign off status: Pending * Provider: Elizabeth Valera DDS Date: 04/19/2024 Generated for Adam son/Mkaenzie/Chet on: 0 08/07/2024 08:34 PM EDT
--- OUTSIDE RECORDS SUMMARY | 2024-08-04 14:20 | XMS_ITS | Encounter Summary ---
Author Organization [facility] Address [address] [place] [address] Care Team Providers Care Brace End Mainspring Former Name Role Phone Parag Bradley MD Primary Care Provider [phone] Анна Ha NP Unavailable [phone] Reason for Visit * Reason Comments Routine Visit Encounter Details Date Type Department Care Team (Late st Contact Info) Description 08/04/2024 2:20 PM EDT Routine [facility] OB [address] [place] [address] Slava Castro, DO [address] [place], [facility] 32 weeks gestation of ([facility] Third trimester ([facility]) Social History Tobacco Use Types Packs/Day Years [...] week 05/19/2023 How often do you attend [facility] or protestant services? More than 4 times per year [...] Recorded Patient Health Questionnaire-2 Score 0 06/08/2024 [facility] - Occupational Stress Questionnaire [...] for wellness examination in adult 09/01/2023 Depression ([facility]) 09/01/2023 Resolved Ambulatory Problems Diagnosis Date Noted Major depressive disorder, single episode, mild (HCC) ([facility]) 09/01/2023 Past Medical History: Diagnosis Date Abnormal Pap smear of cervix 2009 Contraception management Current mild episode of major depressive disorder without prior episode (HCC) ([facility]) Degenerative joint disease of spine Encounter for IUD removal History of abnormal cervical Pap smear LGSIL Pap smear of vagina 2012 Overweight (BMI 25.0-29.9) SVT (supraventricular tachycardia) ([facility]) Torn meniscus HISTORY PAST MEDICAL HISTORY SOCIAL HISTORY Past Medical History: Diagnosis Date Abnormal Pap smear of cervix 2009 Contraception management Current mild episode of major depressive disorder without prior episode (HCC) ([facility]) 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 Artis needs to stop with preg. Cat. C LGSIL Pap smear of vagina 2012 Overweight (BMI 25.0-29.9) SVT (supraventricular tachycardia) ([facility]) Torn meniscus Social History Tobacco [...] nursing note reviewed. Exam conducted with a partition assembler present. Vitals: Estimated body mass index is [...] Care Team (Late st Contact Info) Description 08/18/2024 9:30 AM EDT Routine [facility] OB [address] [facility] [address] Ximena Carver, VÍCTOR [address] [facility] [place] [address] 09/07/2024 1:00 PM EDT Office Visit [facility] [address] [place] [address] Анна Ha, VÍCTOR [address] [place] [address] 12/15/2024 3:00 PM EDT Office Visit [facility] OB [address] [place] [place] [address] Slava Castro DO [address] [facility] [place] [address] documented as of this encounter Goals Goal Patient Goal Type Associated Problems Recent Progress Patient-Stated? Author Reminders Care Plan OB Reminders No Open Scheduling, Background documented as of this encounter Procedures Procedure Name Priority Date/Time Associated Diagnosis Comments POCT URINALYSIS DIPSTICK Routine 08/04/2024 2:36 PM EDT 32 weeks gestation of ([facility]) Third trimester ([facility]) documented in this encounter Results * (ABNORMAL) [...] Positive Urine 08/04/2024 2:36 PM EDT Slava Gloria DO POINT OF CARE TEST ENTER/EDIT OR DERABLES Final Result documented in this encounter Visit Diagnoses Diagnosis 32 weeks gestation of ([facility]) Third trimester ([facility]) state, incidental documented in this encounter Additional Health Concerns Active Problems Noted Date Diagnosed Date OB Reminders 02/11/2024 documented as of this encounter Care Teams Brace End Mainspring Former Relationship Specialty Start Date End Date Parag Bradley MD [address] [place] [address] PCP - General Family Medicine 08/14/22 Анна Ha NP [address] [place] [address] PCP - [facility] 08/25/23 documented as of this encounter
--- OUTSIDE RECORDS SUMMARY | 2024-08-07 20:34 | XMS_ITS | Encounter Summary ---
Author Organization [facility] Address [address] [place] [address] Care Team Providers Care Mechanical Commissioning Engineer Name Role Phone Parag Bradley MD Primary Care Provider [phone] Анна Ha NP Unavailable [phone] Encounter Details Date Type Department Care Team (Late st Contact Info) Description 06/16/2023 Orders Only [facility] [address] [place] [address] Slaav Castro, DO [address] [facility] [place] [address] [place] [address] Social History Tobacco Use Types Packs/Day Years [...] any clubs o r organizations such as yazidi groups, unions, fraternal or athletic groups, or [...] Recorded Patient Health Questionnaire-2 Score 0 05/[facility]/2023 [facility] - Occupational Stress Questionnaire Answer Date Recorded [...] place to sleep or slept in a chcf (including now)? No 05/19/2023 Comments Unknown Sex and Gender Information Value Date Recorded Sex Assigned at Not on file Legal Sex Female 7:11 PM EDT Gender Identity Female 05/08/2022 7:11 PM EDT Sexual Orientation Not on file documented as of this encounter Plan of Treatment Upcoming Encounters Date Type Department Care Team (Late st Contact Info) Description 08/18/2024 9:30 AM EDT Routine [facility] [address] [place] [address] [place] [phone] Ximena Carver NP [address] [facility] [place] [address] 09/07/2024 1:00 PM EDT Office Visit [facility] [address] [place] [address] Анна Ha NP [address] [place] [address] 12/15/2024 3:00 PM EDT Office Visit [facility] [address] [place] [address] Slava Castro DO [address] [place] [address] [address] [place], [place] [id number] documented as of this encounter Procedures Procedure [...] on filedocumented in this encounter Care Teams Mechanical Commissioning Engineer Relationship Specialty Start Date End Date Parag Bradley MD [address] [place] [address] PCP - General Family Medicine 08/14/22 Анна Ha NP [address] [place] [address] PCP - [facility] 08/25/23 documented as of this encounter
--- OUTSIDE RECORDS SUMMARY | 2024-08-07 20:34 | XMS_ITS | Encounter Summary ---
Author Organization [facility] Address [address] [place] [address] Care Team Providers Care Rn First Assist Name Role Phone Parag Bradley MD Primary Care Provider [phone] Анна Ha NP Unavailable [phone] Encounter Details Date Type Department Care [...] often do you attend chur ch or uatsdin services? More than 4 times per year [...] 05/26/2023 [facility] of Occupat ional [facility] - Occupational Stress Questionnaire Answer Date [...] place to sleep or slept in a custodial (including now)? No 05/19/2023 Comments Unknown Sex [...] 9:30 AM EDT Routine [facility] OB [address] [place] [address] [place] [address] Ximena Carver NP [address] [facility] [place] [address] 09/07/2024 1:00 PM EDT Office Visit [facility] [address] [place] [address] Анна Ha NP [address] [place] [address] 12/15/2024 3:00 PM EDT Office Visit [facility] OB [address] [place], [place] [address] [place] [address] Orlin Castro DO [address] [facility] [address] [place], [place] [address] documented as of this encounter Procedures Procedure Name Priority Date/Time Associated Diagnosis Comments US OB TRANSVAGINAL 06/20/2023 12 :10 PM EDT documented in this encounter Results * US OB TRANSVAGINAL (06/20/2023 12:10 PM EDT) Anatomical Region Laterality Modality Other 06/20/2023 12:1 0 PM EDT Narrative 06/20/2023 12:12 PM EDT The [address] [address] Ultrasound Report Signed Patient: ROXANNE MARSHALL MR#: [id number] : 1990 Acct:[id number] Age/Sex: 32 / F ADM Date: 06/20/23 Loc: [facility] Attending Dr: Orlin Castro D.O. Ordering Physician: Orlin Castro D.O. Date of Service: 06/20/23 Procedure(s): US OB transvaginal Accession Number(s): [id number] cc: Анна Ha RADIOLOGY TEACHER; Orlin Castro D.O. [place] [address] Patient Name: ROXANNE MARSHALL MRN: [id number] date: 1990 Sex: F Assigned Patient Location: [facility] Current Patient Location: [facility] Accession/Order Number: [id number] Exam Date: 06/20/2023 08:31 Report Date: 06/20/2023 [...] Signed By: 06/20/23 1212 DD/ 1210 TD/TT: Financial Secretary: Procedure Note Radiology, Radiologist, - 06/20/2023 The [place] [id number] Ultrasound Report Signed Patient: ROXANNE MARSHALL DMR#: [id number] : 1990Acct:[id number] Age/Sex: 32 / FADM Date: 06/20/23 Loc: [facility] Attending Dr: Orlin Castro D.O. Ordering Physician: Orlin Castro D.O. Date of Service: 06/20/23 Procedure(s): US OB transvaginal Accession Number(s): [id number] cc: Анна Ha RADIOLOGY TEACHER; Orlin Castro D.O. The [address] [address] Patient Name: ROXANNE MARSHALL MRN: [id number] date: 1990 Sex: F Assigned Patient Location: [facility] Current Patient Location: [facility] Accession/Order Number: [id number] Exam Date: 06/20/2023 08:31 Report Date: 06/20/2023 [...] M.D. Signed By:06/20/23 1212 DD/ 1210 TD/TT: Financial Secretary: us Generic External Data Provider [facility] Final Result documented in this encounter Visit Diagnoses Not on filedocumented in this encounter Care Teams Rn First Assist Relationship Specialty Start Date End Date Parag Bradley MD [address] [place] [address] PCP - General Family Medicine 08/14/22 Анна Ha NP [address] [place] [address] PCP - [facility] 08/25/23 documented as of this encounter
--- OUTSIDE RECORDS SUMMARY | 2024-08-07 20:34 | XMS_ITS | Encounter Summary ---
Author Organization [facility] Address [address] [place] [address] Care Team Providers Care Bleach Boiler Puller Name Role Phone Parag Bradley MD Primary Care Provider [phone] Анна Ha NP Unavailable [phone] Encounter Details Date Type Department Care Team (Late st Contact Info) Description 08/04/2024 Clinisync Result Encounter [facility] External Department Unsolicited [...] any clubs o r organizations such as catholic groups, unions, fraternal or athletic groups, [...] Recorded Patient Health Questionnaire-2 Score 0 06/08/2024 [facility] of Occupat ional Health - Occupational [...] in a fdc (including now)? No 05/19/2023 Estimated Date of [...] 9:30 AM EDT Routine [facility] [address] [place] [address] [place] [address] Ximena Carver NP [address] [place] [address] [place] [address] 09/07/2024 1:00 PM EDT Office Visit [facility] [address] [place] [address] Анна Ha NP [address] [place] [address] 12/15/2024 3:00 PM EDT Office Visit [facility] [address] [facility] [place] [address] Slava Castro DO [address] [facility] [address] [place], [place] [address] documented as of this encounter Goals Goal Patient Goal Type Associated Problems Recent Progress Patient-Stated? Author Reminders Care Plan OB Reminders No Open Scheduling, Background documented as of this encounter Procedures Procedure Name Priority Date/Time Associated Diagnosis Comments US OB BPP W NON-STRESS 08/04/2024 11:43 AM EDT documented in this encounter Results * US OB BPP W NON-STRESS (08/04/2024 11:43 AM EDT) Anatomical Region Laterality Modality Other 08/04/2024 11:4 3 AM EDT Narrative 08/04/2024 11:[place] [address] Ultrasound Report Signed Patient: ROXANNE MARSHALL MR#: [id number] : 1990 Acct:[id number] Age/Sex: 33 / F ADM Date: 08/04/24 Loc: [facility] 250-[address]: Vidya Jackson Ordering Physician: Vidya Jackson Date of Service: 08/04/24 Procedure(s): US OB BPP w non-stress Accession Number(s): [id number] cc: Анна Ha NP; Vidya Jackson The [place] [address] Patient Name: ROXANNE MARSHALL MRN: [id number] date: 1990 Sex: F Assigned Patient Location: [facility] Current Patient Location: [facility] Accession/Order Number: [id number] Exam Date: 08/04/2024 11:42 Report Date: 08/04/2024 11:43 At the request of: VIDYA JACKSON Procedure: US OB BPP w non-stress BIOPHYSICAL PROFILE: CLINICAL INFORMATION: ADVANCED MATERNAL AGE COMPARISON: None There is a single live intrauterine gestation in cephalic presentation. The reported gestational age is 32 weeks 5 days. The heart rate measures 141 beats per minute. FINDINGS: TONE: 1 or more episodes of activity extension and flexion of extremity or opening and closing of the hand [Y] 2/2 GROSS BODY MOVEMENTS: 3 or more discrete body or limb movements [Y] 2/2 BREATHING MOVEMENTS: 1 or more episodes of breathing lasting at least 30 seconds [Y] 2/2 LIVE: A single deepest vertical pocket of amniotic fluid greater than 2 cm [Y] 2/2 LIVE: 11.4 cm. This is in low-normal range. Total score: 8/8 US/US OB BPP w non-stress IMPRESSION: NORMAL BIOPHYSICAL PROFILE . Impression dictated by: Isatu Auguste M.D. 08/04/2024 11:43 AM Dictation Location: [place] [address] Electronically authenticated by: [id number] Y Date: 08/04/2024 11:43 Dictated By: Isatu Auguste M.D. Signed By: 08/04/24 1146 DD/ 1143 TD/TT: Checker In: Procedure Note Radiology, Radiologist, - 08/04/2024 [place] [address] Ultrasound Report Signed Patient: ROXANNE MARSHALL DMR#: [id number] : 1990Acct:[id number] Age/Sex: 33 / FADM Date: 08/04/24 Loc: [place] [address]: Vidya Jackson Ordering Physician: Vidya Jackson Date of Service: 08/04/24 Procedure(s): US OB BPP w non-stress Accession Number(s): [id number] cc: Анна Ha GORE CUTTER; Vidya Jackson The [place] [address] Patient Name: ROXANNE MARSHALL MRN: [id number] date: 1990 Sex: F Assigned Patient Location: [facility] Current Patient Location: [facility] Accession/Order Number: [id number] Exam Date: 08/04/2024 11:42 Report Date: 08/04/2024 11:43 At the request of: VIDYA JACKSON Procedure: US OB BPP w non-stress BIOPHYSICAL PROFILE: CLINICAL INFORMATION: ADVANCED MATERNAL AGE COMPARISON: None There is a single live intrauterine gestation in cephalic presentation.The reported gestational age is 32 weeks 5 days. The heart ratemeasures 141 beats per minute. FINDINGS: TONE: 1 or more episodes of activity extension and flexion of extremity or opening and closing of the hand [Y] 2/2 GROSS BODY MOVEMENTS: 3 or more discrete body or limb movements [Y] 2/2 BREATHING MOVEMENTS: 1 or more episodes of breathing lastingat least 30 seconds [Y] 2/2 LIVE: A single deepest vertical pocket of amniotic fluid greater than 2 cm [Y] 2/2 LIVE: 11.4 cm. This is in low-normal range. Total score: 8/8 US/US OB BPP w non-stress IMPRESSION: NORMAL BIOPHYSICAL PROFILE . Impression dictated by: Isatu Auguste M.D. 08/04/2024 11:43 AM Dictation Location: [place] [address] Electronically authenticated by: [id number] Y Date: 1:43 Dictated By: Isatu Auguste M.D. Signed By:08/04/24 1146 DD/ 1143 TD/TT: Checker In: us Generic External Data Provider [facility] Final Result documented in this encounter Visit Diagnoses Not on filedocumented in this encounter Additional Health Concerns Active Problems Noted Date Diagnosed Date OB Reminders 02/11/2024 documented as of this encounter Care Teams Bleach Boiler Puller Relationship Specialty Start Date End Date Parag Bradley MD [address] [place] [address] PCP - General Family Medicine 08/14/22 Анна Ha NP [address] [place] [address] PCP - [facility] 08/25/23 documented as of this encounter
--- OUTSIDE RECORDS SUMMARY | 2024-08-07 20:34 | XMS_ITS ---
Author Organization [facility] Address [address] [place] [address] Care Team Providers Care Mica Miner Blasting Name Role Phone Parag Bradley MD Primary Care Provider [phone] Анна Ha NP Unavailable [phone] [facility] ([facility]) Status:Enrolled (Active) Start date:03/09/2024 Enrollment date:03/09/2024 Enrollment reason:Identified by Health Plan Case Team Name Relationship Phone Vidya Oliva LPN(Responsible Staff) Licensed [facility] Nurse [phone] Continued Care and Services Coordination
--- OUTSIDE RECORDS SUMMARY | 2024-08-07 20:34 | XMS_ITS | Encounter Summary ---
Author Organization [facility] Address [address] [place] [address] Care Team Providers Care Historic Sites Registrar Name Role Phone Parag Bradley MD Primary Care Provider [phone] Анна Ha NP Unavailable [phone] Encounter Details Date Type Department Care Team (Late st Contact Info) Description 08/06/2024 Patient Outreach [facility] [address] [place] [address] Vidya Oliva, SUMIT [address] [place], [place] [address] Social History Tobacco Use Types Packs/Day Years [...] often do you attend chur ch or jainism services? More than 4 times per year [...] Date Recorded Patient Health Questionnaire-2 Score 0 08/06/2024 [facility] of Occupat ional Health - [...] on file documented as of this encounter Functional Status * Over the past 2 weeks, how often have you been bothered by any of the following problems? Question Answer Date of Assessment Author Little interest or pleasure in doing things Not at all 08/06/2024 10:44 AM EDT Vidya Oliva LP N Feeling down, depressed, or hopeless Not at all 08/06/2024 10:44 AM EDT Vidya Oliva LP N Patient Health Questionnaire -2 Score 0 08/06/2024 10:44 AM EDT Vidya Oliva LP N documented as of this encounter Progress Notes * Vidya Oliva LPN - 08/06/2024 10:43 AM EDT Monthly Outreach. Call to pt. Pt reports she feels baby moving frequently. Appetite and sleep are adequate, although sleep is somewhat interrupted due to discomfort. Bowels are regular. Pt denies anydepression or difficulty coping at this time. Pt denies any medication changes. Next OB OV 08/18. documented in this encounter Plan of Treatment Upcoming Encounters Date Type Department Care Team (Late st Contact Info) Description 08/18/2024 9:30 AM EDT Routine [facility] [address] [facility] [place] [address] Ximena Carver, APPLICATION SECURITY ENGINEER [address] [facility] [place] [address] 09/07/2024 1:00 PM EDT Office Visit [facility] [address] [place] [address] Анна Ha, VÍCTOR [address] [place] [address] 12/15/2024 3:00 PM EDT Office Visit [facility] [address] [place] [address] Slava Castro, DO [address] [place] [address] documented as of this encounter Goals Goal Patient Goal Type Associated Problems Recent Progress Patient-Stated? Author Reminders Care Plan OB Reminders No Open Scheduling, Background documented as of this encounter Visit Diagnoses Not on filedocumented in this encounter Additional Health Concerns Active Problems Noted Date Diagnosed Date OB Reminders 02/11/2024 documented as of this encounter Care Teams Historic Sites Registrar Relationship Specialty Start Date End Date Parag Bradley MD [address] [place] [address] PCP - General Family Medicine 08/14/22 Анна Ha, VÍCTOR [address] [place] [address] PCP - [facility] 08/25/23 documented as of this encounter
--- OUTSIDE RECORDS SUMMARY | 2024-08-07 20:34 | XMS_ITS | Patient Health Record ---
Author Organization [facility] es Address [address] [place] [address] Care Team Providers Care Nozzle Tender Name Role Phone Naida Valera Primary Care Provider Reason For Referral No Information Medications Medication SIG (Take, Route, Frequency, Duration) Notes Start Date End Date Status Zoloft Unknown TRAZODONE Unknown Acetaminophen Extra Strength 500 MG 1 tablet as needed Orally every 6 hrs 01/02/2024 Active Encounters Encounter Location Date Provider Diagnosis [place] [address] [place] [address] 12/25/2023 Naida Valera Cracked tooth K03 .81 [facility] [address] [place] [address] 12/29/2023 Naida Valera Encounter for den mercy examination and cleaning with abnormal findings Z01.21 [facility] [address] [place] [address] 01/02/2024 Naida Valera Encounter for den mercy [...] ruff, 11/12/2024 10:30:00 AM, [address] [place], [address], Insurance Providers Payer Name Payer Address Payer Phone Subscriber Number Group Number Insured Name Patient Relationship to Insured Coverage Start Date Coverage End Date DENTAL [employer]ETNA [employer] [address] [address] [place] [phone] [id number] ROXANNE ROGERS Self - patient is the insured 4 Secondary [employer] [place] [employer] [address] [address] [place] [address] [id number] ROXANNE ROGERS Self - patient is the insured 3 Dental [employer] [facility] [place] [address] [place] [address] [id number] ROXANNE ROGERS Self - patient is the insured 3
--- OUTSIDE RECORDS SUMMARY | 2024-08-07 20:34 | XMS_ITS | Encounter Summary ---
Author Organization [facility] Address [address] [place] [address] Care Team Providers Care Fuel House Attendant Name Role Phone Parag Bradley MD Primary Care Provider [phone] Анна Ha NP Unavailable [phone] Encounter Details Date Type Department Care [...] How often do you attend chur or pentecostalism services? More than 4 times per year 05/19/2023 Do you belong to any clubs o r organizations such as christian groups, unions, fraternal or athletic groups, or [...] Recorded Patient Health Questionnaire-2 Score 0 06/08/2024 [facility] [place] of Occupat ional Health - Occupational Stress [...] AM EDT Routine [facility] [address] [facility] [place] [address] Ximena Carver, VÍCTOR [address] [facility] [place] [address] 09/07/2024 1:00 PM EDT Office Visit [facility] [address] [place] [address] Анна Ha NP [address] [place] [address] 12/15/2024 3:00 PM EDT Office Visit [facility] OB [address] [facility] [place] [address] Slava Castro DO [address] [facility] [address] [place], [place] [address] documented as of this encounter Goals Goal Patient Goal Type Associated Problems Recent Progress Patient-Stated? Author Reminders Care Plan OB Reminders No Open Scheduling, Background documented as of this encounter Visit Diagnoses Not on filedocumented in this encounter Additional Health Concerns Active Problems Noted Date Diagnosed Date OB Reminders 02/11/2024 documented as of this encounter Care Teams Fuel House Attendant Relationship Specialty Start Date End Date Parag Bradley MD [address] [place] [address] PCP - General Family Medicine 08/14/22 Анна Ha NP [address] [facility] [place] [address] PCP - [facility] 08/25/23 documented as of this encounter
--- OUTSIDE RECORDS SUMMARY | 2024-08-07 20:34 | XMS_ITS | Encounter Summary ---
Author Organization [facility] Address [address] [place] [address] Care Team Providers Care City Council Member Name Role Phone Parag Bradley MD Primary Care Provider [phone] Анна Ha NP Unavailable [phone] Encounter Details Date Type Department Care Team (Late st Contact Info) Description 06/26/2023 Orders Only [facility] [address] [facility] [place] [place] [address] Slava Castro, DO [address] [facility] [place], [place] [address] Social History Tobacco Use Types Packs/Day Years [...] How often do you attend chur or jew services? More than 4 times per year 05/19/2023 Do you belong to any clubs o r organizations such as voodoo groups, unions, fraternal or athletic groups, or [...] Recorded Patient Health Questionnaire-2 Score 0 05/26/2023 [facility] Occupational Stress Questionnaire Answer Date Recorded [...] in a intermediate (including now)? No 05/19/2023 Comments Unknown Sex and Gender Information Value Date Recorded Sex Assigned at Not on file Legal Sex Female 7:11 PM EDT Gender Identity Female 05/08/2022 7:11 PM EDT Sexual Orientation Not on file documented as of this encounter Plan of Treatment Upcoming Encounters Date Type Department Care Team (Late st Contact Info) Description 08/18/2024 9:30 AM EDT Routine [facility] OB [address] [place] [address] [place] [address] Ximena Carver NP [address] [place] [address] [place] [address] 09/07/2024 1:00 PM EDT Office Visit [facility] [address] [place] [address] Анна Ha NP [address] [place] [address] 12/15/2024 3:00 PM EDT Office Visit [facility] [address] [place] [address] Slava Castro DO [address] [place] [address] [address] [place], [place] [address] documented as of this encounter Procedures Procedure [...] on filedocumented in this encounter Care Teams City Council Member Relationship Specialty Start Date End Date Parag Bradley MD [address] [address] PCP - General Family Medicine 08/14/22 Анна Ha NP [address] [place] [address] [facility] 08/25/23 documented as of this encounter
--- OUTSIDE RECORDS SUMMARY | 2024-08-07 20:34 | XMS_ITS | Encounter Summary ---
Author Organization [facility] Address [address] [place] [address] Care Team Providers Care Pulmonologist Name Role Phone Parag Bradley MD Primary Care Provider Анна Ha NP Unavailable [phone] Encounter Details Date Type Department Care Team (Late st Contact Info) Description 07/26/2024 Abstract [facility] OB [address] [place] [address] Slava Castro, DO [address] [place], [facility] Social History Tobacco Use Types Packs/Day [...] often do you attend chur ch or mu-ism services? More than 4 times per year 05/19/2023 Do you belong to any clubs o r organizations such as anabaptist groups, unions, fraternal or athletic groups, or [...] Recorded Patient Health Questionnaire-2 Score 0 06/08/2024 [facility] of Occupat ional [facility] - Occupational Stress Questionnaire Answer Date [...] place to sleep or slept in a mcfp (including now)? No 05/19/2023 Estimated Date of [...] Description 08/18/2024 9:30 AM EDT Routine [facility] OB [address] [place] [address] [place] [phone] Ximena Carver NP [address] [place] [address] [place] [address] 09/07/2024 1:00 PM EDT [facility] [address] [place] [address] Анна Ha NP [address] [place] [address] 12/15/2024 3:00 PM EDT Office Visit [facility] OB [address] [place] [address] [place] [address] Slava Castro DO [address] [facility] [address] [place], [place] [phone] documented as of this encounter Goals Goal Patient Goal Type Associated Problems Recent Progress Patient-Stated? Author Reminders Care Plan OB Reminders No Open Scheduling, Background documented as of this encounter Visit Diagnoses Not on filedocumented in this encounter Additional Health Concerns Active Problems Noted Date Diagnosed Date OB Reminders 02/11/2024 documented as of this encounter Care Teams Pulmonologist Relationship Specialty Start Date End Date Parag Bradley MD [address] [place] [address] PCP - General Family Medicine 08/14/22 Анна Ha NP [address] [place] [address] PCP - [facility] 08/25/23 documented as of this encounter
--- OUTSIDE RECORDS SUMMARY | 2024-08-07 20:34 | XMS_ITS | Encounter Summary ---
Author Organization [facility] Address [address] [place] [address] Care Team Providers Care Lemon Picker Name Role Phone Parag Bradley MD Primary Care Provider [phone] Анна Ha NP Unavailable [phone] Encounter Details Date Type Department Care [...] often do you attend chur ch or anabaptist services? More than 4 times per year 05/19/2023 Do you belong to any clubs o r organizations such as orthodox groups, unions, fraternal or athletic groups, or [...] Recorded Patient Health Questionnaire-2 Score 0 05/26/2023 [facility] - Occupational Stress Questionnaire Answer Date Recorded [...] 9:30 AM EDT Routine [facility] OB [address] [place] [address] [place] [address] Ximena Carver NP [address] [facility] [place] [address] 09/07/2024 1:00 PM EDT Office Visit [facility] FM [address] [place] [address] Анна Ha NP [address] [place] [address] 12/15/2024 3:00 PM EDT Office Visit [facility] OB [address] [place], [place] [address] [place] [address] Orlin Castro DO [address] [facility] [address] [place], [place] [phone] documented as of this encounter Procedures Procedure Name Priority Date/Time Associated Diagnosis Comments US OB TRANSVAGINAL 06/26/2023 10 :14 AM EDT documented in this encounter Results * US OB TRANSVAGINAL (06/26/2023 10:14 AM EDT) Anatomical Region Laterality Modality Other 06/26/2023 10:1 4 AM EDT Narrative 06/26/2023 10:16 AM EDT The [address] [address] Ultrasound Report Signed Patient: ROXANNE MARSHALL MR#: [id number] : 1990 Acct:[id number] Age/Sex: 32 / F ADM Date: 06/26/23 Loc: [facility] Attending Dr: Orlin Castro D.O. Ordering Physician: Orlin Castro D.O. Date of Service: 06/26/23 Procedure(s): US OB transvaginal Accession Number(s): [id number] cc: Анна Ha AUTOMOTIVE PAINTER HELPER; Orlin Castro D.O. The [place] [id number] Patient Name: ROXANNE MARSHALL MRN: [id number] date: 1990 Sex: F Assigned Patient Location: [facility] Current Patient Location: [facility] Accession/Order Number: [id number] Exam Date: 06/26/2023 09:09 Report Date: 06/26/2023 [...] Signed By: 06/26/23 1016 DD/ 1014 TD/TT: Mirror Framer: Procedure Note Radiology, Radiologist, - 06/26/[address] [address] Ultrasound Report Signed Patient: ROXANNE MARSHALL DMR#: [id number] : 1990Acct:[id number] Age/Sex: 32 / FADM Date: 06/26/23 Loc: [facility] Attending Dr: Orlin Castro D.O. Ordering Physician: Orlin Castro D.O. Date of Service: 06/26/23 Procedure(s): US OB transvaginal Accession Number(s): [id number] cc: Анна Ha AUTOMOTIVE PAINTER HELPER; Orlin Castro D.O. The [place] [id number] Patient Name: ROXANNE MARSHALL MRN: [id number] date: 1990 Sex: F Assigned Patient Location: [facility] Current Patient Location: [facility] Accession/Order Number: [id number] Exam Date: 06/26/2023 09:09 Report Date: 06/26/2023 [...] M.D. Signed By:06/26/23 1016 DD/ 1014 TD/TT: Mirror Framer: us Generic External Data Provider [facility] Final Result documented in this encounter Visit Diagnoses Not on filedocumented in this encounter Care Teams Lemon Picker Relationship Specialty Start Date End Date Parag Bradley MD [address] [place] [address] PCP - General Family Medicine 08/14/22 Анна Ha NP [address] [place] [address] PCP - [facility] 08/25/23 documented as of this encounter
--- OUTSIDE RECORDS SUMMARY | 2024-08-07 20:34 | XMS_ITS | Encounter Summary ---
Author Organization [facility] Address [address] [place] [address] Care Team Providers Care Inventory Control Manager Name Role Phone Parag Bradley MD Primary Care Provider [phone] Анна Ha NP Unavailable [phone] Encounter Details Date Type Department Care [...] often do you attend chur ch or samaritan services? More than 4 times per year 05/19/2023 Do you belong to any clubs o r organizations such as zoroastrian groups, unions, fraternal or athletic groups, or [...] Recorded Patient Health Questionnaire-2 Score 0 05/26/2023 [facility] Occupat ional [facility] - Occupational Stress Questionnaire Answer [...] place to sleep or slept in a detention (including now)? No 05/19/2023 Comments Unknown Sex [...] 9:30 AM EDT Routine [facility] OB [address] [place] [address] [place] [phone] Ximena Carver NP [address] [facility] [place] [address] 09/07/2024 1:00 PM EDT Office Visit [facility] [address] [place] [address] Анна Ha NP [address] [place] [address] 12/15/2024 3:00 PM EDT Office Visit [facility] B[facility] OB [address] [place], [place] [address] [place] [address] Orlin Castro DO [address] [place] [address] [address] [place], [place] [address] documented as of this encounter Procedures Procedure Name Priority Date/Time Associated Diagnosis Comments US OB TRANSVAGINAL 06/13/2023 11 :13 AM EDT [facility] PREG QUANT HCG Routine 06/13/2023 10 :49 AM EDT documented in this encounter Results * US OB TRANSVAGINAL (06/13/2023 11:13 AM EDT) Anatomical Region Laterality Modality Other 06/13/2023 11:1 3 AM EDT Narrative 06/13/2023 11:16 [place] [address] Ultrasound Report Signed Patient: ROXANNE MARSHALL MR#: [id number] : 1990 Acct:[id number] Age/Sex: 32 / F ADM Date: 06/13/23 Loc: [facility] Attending Dr: Orlin Castro D.O. Ordering Physician: Orlin Castro D.O. Date of Service: 06/13/23 Procedure(s): US OB transvaginal Accession Number(s): [id number] cc: Анна Ha RECEIVING CLERK; Orlin Castro D.O. [place] [address] Patient Name: ROXANNE MARSHALL MRN: [id number] date: 1990 Sex: F Assigned Patient [facility] Current Patient [facility]: [facility] Accession/Order Number: [id number] Exam Date: 06/13/2023 09:58 Report Date: 06/13/2023 [...] Signed By: 06/13/23 1116 DD/ 1113 TD/TT: Service Architect: Procedure Note Radiology, Radiologist, MD - 06/13/2023 [place] [address] Ultrasound Report Signed Patient: ROXANNE MARSHALL DMR#: [id number] : 1990Acct:[id number] Age/Sex: 32 / FADM Date: 06/13/23 Loc: [facility] Attending Dr: Orlin Castro D.O. Ordering Physician: Orlin Castro D.O. Date of Service: 06/13/23 Procedure(s): US OB transvaginal Accession Number(s): [id number] cc: Анна Ha RECEIVING CLERK; Orlin Castro D.O. The [place] [id number] Patient Name: ROXANNE MARSHALL MRN: [id number] date: 1990 Sex: F Assigned Patient Location: [facility] Current Patient Location: [facility] Accession/Order Number: [id number] Exam Date: 06/13/2023 09:58 Report Date: 06/13/2023 [...] M.D. Signed By:06/13/23 1116 DD/ 1113 TD/TT: Service Architect: us Generic External Data Provider [facility] [...] [facility] F inal Result Performing Organization Address City/State/[facility] Co de Phone Number [facility] documented in this encounter Visit Diagnoses Not on filedocumented in this encounter Care Teams Inventory Control Manager Relationship Specialty Start Date End Date Parag Bradley MD [address] [place] [address] PCP - General Family Medicine 08/14/22 Анна Ha NP [address] [place] [address] PCP - [facility] 08/25/23 documented as of this encounter
--- OUTSIDE RECORDS SUMMARY | 2024-08-07 20:34 | XMS_ITS | Encounter Summary ---
Author Organization [facility] Address [address] [place] [address] Care Team Providers Care Registered Nurse Float Pool Name Role Phone Parag Bradley MD Primary Care Provider [phone] Анна Ha NP Unavailable [phone] Encounter Details Date Type Department Care [...] often do you attend chur ch or shinto services? More than 4 times per year [...] Recorded Patient Health Questionnaire-2 Score 0 06/08/2024 [facility] Occupat ional Health - [...] AM EDT Routine [facility] OB [address] [facility] [place] [address] Ximena Carver NP [address] [facility] [place] [phone] 09/07/2024 1:00 PM EDT Office Visit [facility] [address] [place] [address] Анна Ha NP [address] [place] [address] 12/15/2024 3:00 PM EDT Office Visit [facility] OB [address] [place] [phone] Orlin Castro DO [address] [facility] [address] [place], [place] [address] documented as of this encounter Goals Goal [...] EDT Narrative 07/28/2024 10:51 [place] [address] Ultrasound Report Signed Patient: ROXANNE MARSHALL MR#: [id number] : 1990 Acct:[id number] Age/Sex: 33 / F ADM Date: 07/28/24 Loc: US Attending Dr: Orlin Castro D.O. Ordering Physician: Orlin Castro D.O. Date of Service: 07/28/24 Procedure(s): US OB growth Accession Number(s): [id number] cc: Анна Ha NP; Orlin Castro D.O. The [place] [address] Patient Name: ROXANNE MARSHALL MRN: [id number] date: 1990 Sex: F Assigned Patient Location: US Current Patient Location: US Accession/Order Number: [id number] Exam Date: 07/28/2024 10:44 Report Date: 07/28/2024 [...] Auguste M.D. 07/28/2024 10:48 AM Dictation Location: [place] [address] Electronically authenticated by: [id number] Date: 07/28/2024 10:48 Dictated By: Isatu Auguste M.D. Signed By: 07/28/24 1051 DD/ 1048 TD/TT: Lining Cutter: Procedure Note Radiology, Radiologist, MD - 07/28/2024 [place] [address] Ultrasound Report Signed Patient: ROXANNE MARSHALL DMR#: [id number] : 1990Acct:[id number] Age/Sex: 33 / FADM Date: 07/28/24 Loc: US Attending Dr: Orlin Castro D.O. Ordering Physician: Orlin Castro D.O. Date of Service: 07/28/24 Procedure(s): US OB growth Accession Number(s): [id number] cc: Анна Ha TRACK MAN; Orlin Castro D.O. The [place] [id number] Patient Name: ROXANNE MARSHALL MRN: [id number] date: 1990 Sex: F Assigned Patient Location: Current Patient Location: US Accession/Order Number: [id number] Exam Date: 07/28/2024 10:44 Report Date: 07/28/2024 [...] Auguste M.D. 07/28/2024 10:48 AM Dictation Location: [place] [address] Electronically authenticated by: [id number] Y Date: 0:48 Dictated By: Isatu Auguste M.D. Signed By:07/28/24 1051 DD/ 1048 TD/TT: Lining Cutter: us Generic External Data Provider [facility] Final Result documented in this encounter Visit Diagnoses Not on filedocumented in this encounter Additional Health Concerns Active Problems Noted Date Diagnosed Date OB Reminders 02/11/2024 documented as of this encounter Care Teams Registered Nurse Float Pool Relationship Specialty Start Date End Date Parag Bradley MD [address] [place] [address] PCP - General Family Medicine 08/14/22 Анна Ha NP [address] [place] [address] PCP - [facility] 08/25/23 documented as of this encounter
--- OUTSIDE RECORDS SUMMARY | 2024-08-07 20:34 | XMS_ITS | Encounter Summary ---
Author Organization [facility] Address [address] [place] [address] Care Team Providers Care Sonoscope Operator Name Role Phone Parag Bradley MD Primary Care Provider [phone] Анна Ha GREIGE MENDER Unavailable [phone] Encounter Details Date Type Department Care Team (Late st Contact Info) Description 08/04/2024 Abstract [facility] [address] [place] [address] Анна Ha, VÍCTOR [address] [place] [address] Social History Tobacco Use Types Packs/Day Years [...] often do you attend chur ch or taoism services? More than 4 times per year 05/19/2023 Do you belong to any clubs o r organizations such as mu-ism groups, unions, fraternal or athletic groups, or [...] Recorded Patient Health Questionnaire-2 Score 0 08/06/2024 [facility] - Occupational Stress Questionnaire Answer Date Recorded [...] place to sleep or slept in a assisted (including now)? No 05/19/2023 Estimated Date of [...] LP N documented as of this encounter Plan of Treatment Upcoming Encounters Date Type Department Care Team (Late st Contact Info) Description 08/18/2024 9:30 AM EDT Routine [facility] B[facility] OB [address] [place] [address] Ximena Carver NP [address] [facility] [place] [address] 09/07/2024 1:00 PM EDT Office Visit [facility] [address] [place] [address] Анна Ha NP [address] [place] [address] 12/15/2024 3:00 PM EDT Office Visit [facility] OB [address] [facility] [place] [address] Slava Castro DO [address] [place], [place] [address] [address] documented as of this encounter Goals Goal Patient Goal Type Associated Problems Recent Progress Patient-Stated? Author Reminders Care Plan OB Reminders No Open Scheduling, Background documented as of this encounter Visit Diagnoses Not on filedocumented in this encounter Additional Health Concerns Active Problems Noted Date Diagnosed Date OB Reminders 02/11/2024 documented as of this encounter Care Teams Sonoscope Operator Relationship Specialty Start Date End Date Parag Bradley MD [address] [place] [address] PCP - General Family Medicine 08/14/22 Анна Ha NP [address] [place] [address] PCP - [facility] 08/25/23 documented as of this encounter
--- OUTSIDE RECORDS SUMMARY | 2024-08-07 20:35 | XMS_ITS | Encounter Summary ---
Author Organization [facility] Address [address] [place] [address] Care Team Providers Care Solderer Electronic Name Role Phone Parag Bradley MD Primary Care Provider Анна Ha NP Unavailable [phone] Encounter Details Date Type Department Care Team (Late st Contact Info) Description 02/11/2024 Abstract [facility] OB [address] [place] [address] Slava Castro, DO [address] [place] [address] [place], [facility] Social History Tobacco Use Types [...] often do you attend chur ch or mormonism services? More than 4 times per year [...] Recorded Patient Health Questionnaire-2 Score 1 09/01/2023 [facility] - Occupational Stress Questionnaire Answer Date [...] Description 08/18/2024 9:30 AM EDT Routine [facility] OB [address] [place] [address] [place] [address] Ximena Carver NP [address] [place] [address] [place] [address] 09/07/2024 1:00 PM EDT [facility] [address] [place] [address] Анна Ha NP [address] [place] [address] 12/15/2024 3:00 PM EDT Office Visit [facility] OB [address] [place] [address] [place] [address] Slava Castro DO [address] [facility] [address] [place], [place] [address] documented as of this encounter Goals Goal Patient Goal Type Associated Problems Recent Progress Patient-Stated? Author Reminders Care Plan OB Reminders No Open Scheduling, Background documented as of this encounter Visit Diagnoses Not on filedocumented in this encounter Additional Health Concerns Active Problems Noted Date Diagnosed Date OB Reminders 02/11/2024 documented as of this encounter Care Teams Solderer Electronic Relationship Specialty Start Date End Date Parag Bradley MD [address] [place] [address] PCP - General Family Medicine 08/14/22 Анна Ha NP [address] [place] [address] PCP - [facility] 08/25/23 documented as of this encounter
--- OUTSIDE RECORDS SUMMARY | 2024-08-07 20:35 | XMS_ITS | Encounter Summary ---
Author Organization [facility] Address [address] [place] [address] Care Team Providers Care Restaurant Shift Supervisor Name Role Phone Parag Bradley MD Primary Care Provider [phone] Анна Ha TIE CUTTER Unavailable [phone] Encounter Details Date Type Department Care Team (Late Contact Info) Description 03/04/2023 Abstract [facility] [address] [place] [address] Анна Ha NP [address] [place] [address] Social History Tobacco Use Types Packs/Day Years [...] Department Care Team (Late Contact Info) Description 08/18/2024 9:30 AM EDT Routine [facility] B[facility] OB [address] [place] [address] Ximena Carver NP [address] [place] [address] 09/07/2024 1:00 PM EDT Office Visit [facility] [address] [place] [address] Анна Ha NP [address] [place] [address] 12/15/2024 3:00 PM EDT Office Visit [facility] OB [address] [place] [address] Slava Castro DO [address] [facility] [address] [place], [place] [address] documented as of this encounter Visit Diagnoses Not on filedocumented in this encounter Care Teams Restaurant Shift Supervisor Relationship Specialty Start Date End Date Parag Bradley MD [address] [place] [address] PCP - General Family Medicine 08/14/22 Анна Ha, VÍCTOR [address] [place] [address] PCP - [facility] 08/25/23 documented as of this encounter
--- OUTSIDE RECORDS SUMMARY | 2024-08-07 20:35 | XMS_ITS | Encounter Summary ---
Author Organization [facility] Address [address] [place] [address] Care Team Providers Care Senior Net Application Developer Name Role Phone Parag Bradley MD Primary Care Provider Анна Ha NP Unavailable [phone] Encounter Details Date Type Department Care Team (Late st Contact Info) Description 03/01/2024 Abstract [facility] OB [address] [place] [address] Slava Castro, DO [address] [place] [address] [place], [facility] Social History Tobacco Use Types Packs/Day [...] often do you attend chur ch or scientology services? More than 4 times per year [...] Recorded Patient Health Questionnaire-2 Score 1 09/01/2023 [facility] of Occupat ional [facility] - Occupational Stress Questionnaire Answer [...] Description 08/18/2024 9:30 AM EDT Routine [facility] OB [address] [place] [address] [place] [address] Ximena Carver NP [address] [place] [address] [place] [address] 09/07/2024 1:00 PM EDT [facility] [address] [place] [address] Анна Ha NP [address] [place] [address] 12/15/2024 3:00 PM EDT Office Visit [facility] OB [address] [place] [address] [place] [address] Slava Castro DO [address] [facility] [address] [place], [place] [address] documented as of this encounter Goals Goal Patient Goal Type Associated Problems Recent Progress Patient-Stated? Author Reminders Care Plan OB Reminders No Open Scheduling, Background documented as of this encounter Visit Diagnoses Not on filedocumented in this encounter Additional Health Concerns Active Problems Noted Date Diagnosed Date OB Reminders 02/11/2024 documented as of this encounter Care Teams Senior Net Application Developer Relationship Specialty Start Date End Date Parag Bradley MD [address] [place] [address] PCP - General Family Medicine 08/14/22 Анна Ha NP [address] [place] [address] PCP - [facility] 08/25/23 documented as of this encounter
--- OUTSIDE RECORDS SUMMARY | 2024-08-07 20:35 | XMS_ITS ---
Author Organization [facility] Source Produ ction (ClinicalSummary Clone) Address Unknown Care Team Providers Care Ems Director Name Role Phone Unavailable Primary Care Physician Unavailab le Results * [UNITY] ANEUPLOIDY NIPT Performed by: [employer] Component Value Range Date Fraction 4.9% 03/04/2024 [...]
--- OUTSIDE RECORDS SUMMARY | 2024-08-07 20:35 | XMS_ITS | CCD ---
Author Organization [facility] Care Team Providers Care Supervisor Edging Name Role Phone AICHHOLZ, GRADES 6 THROUGH 8 TEACHER АННА Primary Care Unavailable PAY, DR LIN Admitting Unavailable PAY, DR LIN Attending Unavailable GISELLE RESTREPO Consulting Unavailable GLORIA, DR ORDAZ Admitting Unavailable GLORIA, DR ORDAZ Attending Unavailable AICHHOLZ, GRADES 6 THROUGH 8 TEACHER АННА Primary Care Unavailable GLORIA, DR ORDAZ Consulting Unavailable AICHHOLZ, GRADES 6 THROUGH 8 TEACHER АННА Admitting Unavailable AICHHOLZ, GRADES 6 THROUGH 8 TEACHER АННА Attending Unavailable AICHHOLZ, GRADES 6 THROUGH 8 TEACHER АННА Primary Care Unavailable AICHHOLZ, GRADES 6 THROUGH 8 TEACHER АННА Consulting Unavailable AICHHOLZ, GRADES 6 THROUGH 8 TEACHER АННА Primary Care Unavailable DON, DR BIRD Admitting Unavailable DON, DR BIRD Attending Unavailable GISELLE RESTREPO Consulting Unavailable PHOEBE ALFARO Consulting Unavailable MD Dar Brody Primary Care Provider [phone] Orlin Castro Attending Provider Parag Bradley MD Primary Care Provider Aichholange DISEASE AND INSECT CONTROL BOSS, Анна Unavailable Orlin Castro DO Attending Provider Orlin Castro Attending Unavailable Orlin Castro Admitting Unavailable Dar Brody Primary Care Unavailable Orlin Castro Attending Unavailable Mik Castroy Admitting Unavailable VIDYA JACKSON Attending Unavailable VIDYA JACKSON Referring Unavailable ORLIN CASTRO Attending Unavailable XIMENA CARVER Attending Unavailable MIK CASTROY Referring Unavailable MIK CASTROY Attending Unavailable VIDYA JACKSON Attending Unavailable ORLIN CASTRO Attending Unavailable AICTERESA HERNÁNDEZA Attending Unavailable ORLIN CASTRO Attending Unavailable ORLIN CASTRO Attending Unavailable Allergies Allergy Classification Reported Allergen(s) Allergy Type Date of Onset Reaction(s) Facility (20 sources) Other Propensity to adverse reactions 3 [facility] Medications Current Medications Medication Drug Class(es) Dates Sig (Normalized) Sig (Original) aspirin 81 mg delayed release oral tablet (14 sources) Platelet Aggregation Inhibitor, Nonsteroidal Anti-inflammatory Drug take 1 tablet by mouth once daily aspirin 81 MG EC tablet Take 81 mg by mouth Daily Active levonorgestrel 0.763740 mg/hr intrauterine system (2 sources) Progestin, Progestin-containi [...] omeprazole 20 mg delayed release oral capsule (13 sources) Proton Pump Inhibitor Start: 05-10-2024 End: [...] 09-01-2023 09-01-2023 Chronic Other aftercare (1 source) intermission coordinator (current) use of hormonal contraceptives; Translations: [SNF HORMONAL CONTRACEPTIVES] Onset: 02-22-2022 Episodic Other aftercare (1 source) Other ocean transportation intermediary (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 therapy; Translations: [OTH SNF CURRENT DRUG THERAPY] Onset: 02-22-2022 Episodic Other [...] 05-26-2023 Chronic Other and delivery including normal (14 sources) ; Translations: [Encounter for supervision of [...] [30 weeks gestation of ] 07-21-2024 Episodic Residual codes; unclassified (2 sources) Gestation period, 32 weeks; Translations: [32 weeks gestation of ] 08-04-2024 Episodic Screening and history of mental health and substance abuse codes (1 source) Personal history of nicotine dependence; Translations: [PERSONAL HISTORY OF NICOTINE DEPEND] Onset: 02-22-2022 Episodic Short gestation; low weight; and growth retardation (2 sources) Xavvv-dys-ojwgn baby; Translations: [ small for gestational age, unspecified weight] 07-06-2024 Episodic Unclassified (2 sources) COUGH, UNSPECIFIED; Translations: [COUGH, UNSPECIFIED] Onset: 02-22-2022 Unclassified (1 source) PERSONAL HISTORY OF COVID-19; Translations: [PERSONAL HISTORY OF COVID-19] Onset: 02-22-2022 Unclassified (1 source) CONTACT W/AND (SUSP) EXPOS COVID-19; Translations: [CONTACT W/AND (SUSP) EXPOS COVID-19] Onset: 02-22-2022 Unclassified (20 sources) OB Reminders Onset: 02-11-2024 02-11-2024 Past [...] Test Name Value Interpretation Reference Range Facility OB BPP W NON-STRESS on 08-04-[address] [address] Ultrasound Report Signed Patient: ROXANNE MARSHALL MR#: [id number] : 1990 Acct:[id number] Age/Sex: 33 / F ADM Date: 08/04/24 Loc: [facility] 250-[address]: Vidya Jackson Ordering Physician: Vidya Jackson Date of Service: 08/04/24 Procedure(s): US OB BPP w non-stress Accession Number(s): [id number] cc: Анна Ha NP; Vidya Jackson [place] [address] Patient Name: ROXANNE MARSHALL MRN: [facility]:[id number] date: 1990 Sex: F Assigned Patient Location: [facility] Current Patient Location: [facility] Accession/Order Number: [id number] Exam Date: 08/04/2024 11:42 Report Date: 08/04/2024 [...] Auguste M.D. 08/04/2024 11:43 AM Dictation Location: [place] [address] Electronically authenticated by: [id number] Y Date: 08/04/2024 11:43 Dictated By: Isatu Auguste M.D. Signed By: 08/04/24 1146 DD/ 1143 TD/TT: Global Account Manager: [facility] Radiology, Radiologist, MD - 08/04/[address] [address] Ultrasound Report Signed Patient: ROXANNE MARSHALL MR#: [id number] : 1990 Acct:[id number] Age/Sex: 33 / F ADM Date: 08/04/24 Loc: [facility] 250-[address]: Vidya Jackson Ordering Physician: Vidya Jackson Date of Service: 08/04/24 Procedure(s): US OB BPP w non-stress Accession Number(s): [id number] cc: Анна Ha DISEASE AND INSECT CONTROL BOSS; Vidya Jackson The [address] [address] Patient Name: ROXANNE MARSHALL MRN: [facility]:[id number] date: 1990 Sex: F Assigned Patient Location: [facility] Current Patient Location: [facility] Accession/Order Number: [id number] Exam Date: 08/04/2024 11:42 Report Date: 08/04/2024 [...] Auguste M.D. 08/04/2024 11:43 AM Dictation Location: [place] [address] Electronically authenticated by: [id number] Y Date: 08/04/2024 11:43 Dictated By: Isatu Auguste M.D. Signed By: 08/04/24 1146 DD/ 1143 TD/TT: Global Account Manager: [facility] Radiology Study observation (narrative) [facility] US OB BPP W NON-STRESS Ordered By: Radiologist Radiology on 08-04-2024 [facility] Work Phone: Urinalysis macro (dipstick) panel (U)on 08-04-2024 Bilirubin, UA Negative Negative - 4(70) +++ mg/dL [facility] Blood, UA Positive Negative - 50 Richy/mcL [facility] Comment on above: trace-intact Clarity, UA Clear [facility] Color, UA Yellow [facility] Glucose, UA Negative Negative - 2000(110) ++++ mg/dL [facility] Interpretation and review of laboratory results Abnormal [facility] Ketones, UA Negative Negative - 160(16) ++++ mg/dL [facility] Leukocytes, UA Negative Negative - 500+++ Tano/mcL [facility] Nitrite, UA Negative Negative - Positive [facility] pH, UA 7 5 - 9 [facility] Protein, UA Negative Negative - 2000(20) ++++ mg/dL [facility] Spec Grav, UA 1.01 1 - 1.03 [facility] Urobilinogen, UA 0.2 0.2 - 12 mg/dL [facility] GLUCOSE TOLERANCE 3 HOURon 0 07-23-2024 GLUCOSE TOLERANCE 3 HOUR High mg/dL [facility] Comment on above: GLU FAST 97H (<95) C ol: 07/23/24 0909 GLU 1HR 151 (<180) Col: 07/23/24 1013 GLU 2HR 151 (<155) Col: 07/23/24 1113 GLU 3HR 123 (<140) Col: 07/23/24 1213 Interpretation and review of laboratory results Abnormal [facility] US OB FOLLOW UP TRANSABDOMIN AL [...] II, MD, PHD at 07-Jul-2024 10:00:26 AM [facility] Normal Not Available Comment on above: Order Comment: US OB SCAN FOR GROWTH Estimated Date of Delivery: 09/24/24 Gestational Age as of 06/16/2024: 25w5d Urinalysis macro (dipstick) panel (U)on 07-06-2024 Bilirubin, UA Negative Negative - 4(70) +++ mg/dL [facility] Blood, UA Negative Negative - 50 Richy/mcL [facility] Clarity, UA Clear [facility] Color, UA Yellow [facility] Glucose, UA Negative Negative - 1999(110) ++++ mg/dL [facility] Interpretation and review of laboratory results Normal [facility] Ketones, UA Negative Negative - 160(16) ++++ mg/dL [facility] Leukocytes, UA Negative Negative - 500+++ Tano/mcL [facility] Nitrite, UA Negative Negative - Positive [facility] pH, UA 7 5 - 9 [facility] Protein, UA Negative Negative - 1999(20) ++++ mg/dL [facility] Spec Grav, UA 1.015 1 - 1.03 [facility] Urobilinogen, UA 0.2 0.2 - 12 mg/dL [facility] ALL CBC WITH AUTO DIFFon BASOPHILS ABSOLUTE AUTO 0 [facility] Basophils/100 WBC (Bld) 0.3 % 0.2 - 2.0 % [facility] Eosinophils/100 WBC (Bld) 0.3 % Low 0.9 - 7.0 % [facility] Erythrocyte distribution width (RBC) [Ratio] 12.9 % 11.0 - 15.0 % [facility] Hematocrit (Bld) [Volume fraction] 35.5 % Low 36.0 - 48.0 % [facility] Hemoglobin (Bld) [Mass/Vol] 11.6 g/dL Low 12.0 - 16.0 g/dL [facility] IMMATURE GRANULOCYTES ABS AUTO 0.03 [facility] Immature granulocytes/100 WBC (Bld) 0.4 % 0.0 - 0.5 % [facility] Interpretation and review of laboratory results Abnormal [facility] LYMPHOCYTES ABSOLUTE AUTO 1.7 [facility] Lymphocytes/100 WBC (Bld) 22.3 % 20.5 - 60.0 % [facility] MCH (RBC) [Entitic mass] 30.7 pg 26.7 - 34.0 pg [facility] MCHC (RBC) [Mass/Vol] 32.7 g/dL 29.9 - 35.2 g/dL [facility] MCV (RBC) [Entitic vol] 93.9 fL 81.0 - 99.0 fL [facility] MONOCYTES ABSOLUTE AUTO 0.4 [facility] Monocytes/100 WBC (Bld) 5.5 % 1.7 - 12.0 % [facility] NEUTROPHILS ABSOLUTE AUTO 5.3 [facility] Neutrophils/100 WBC (Bld) 71.2 % 43.0 - 75.0 % [facility] Platelet mean volume (Bld) [Entitic vol] 9.6 fL 9.5 - 13.5 fL [facility] TBH EO # 0 [facility] TBH PLT 218 [facility] TB RBC 3.78 Low [facility]H WBC 7.4 [facility] RECURRENT VAGINITIS (HTRX)on 06-17-2024 ATOPOBIUM VAGINAE 0 [facility] ATOPOBIUM VAGINAE Not detected [facility] BVAB 2,3 (BACTERIAL VAGINOSIS ASSOCIATED BACTERIA 2, 3); MOBILUNCUS SPP 0 [facility] BVAB 2,3 (BACTERIAL VAGINOSIS ASSOCIATED BACTERIA 2, 3); MOBILUNCUS SPP Not detected [facility] RANJANA ALBICANS, PARAPSILOSIS, TROPICALIS 0 [facility] RANJANA ALBICANS, PARAPSILOSIS, TROPICALIS Not detected [facility] RANJANA GLABRATA 0 [facility] RANJANA GLABRATA Not detected [facility] RANJANA KRUSEI 0 [facility] RANJANA KRUSEI Not detected [facility] CHLAMYDIA TRACHOMATIS 0 [facility] CHLAMYDIA TRACHOMATIS Not detected [facility] GARDNERELLA VAGINALIS 0 [facility] GARDNERELLA VAGINALIS Not detected [facility] MEGASPHAERA (TYPES 1, 2) 0 [facility] MEGASPHAERA (TYPES 1, 2) Not detected [facility] MYCOPLASMA GENITALIUM 0 [facility] MYCOPLASMA GENITALIUM Not detected [facility] NEISSERIA GONORRHOEAE 0 [facility] NEISSERIA GONORRHOEAE Not detected [facility] TRICHOMONAS VAGINALIS 0 [facility] TRICHOMONAS VAGINALIS Not detected [facility] Urinalysis macro (dipstick) panel (U)on 06-16-2024 Bilirubin, UA Negative Negative - 4(70) +++ mg/dL [facility] Blood, UA Negative Negative - 50 Richy/mcL [facility] Clarity, UA Clear [facility] Color, UA Yellow [facility] Glucose, UA Negative Negative - 2000(110) ++++ mg/dL [facility] Interpretation and review of laboratory results Normal [facility] Ketones, UA Negative Negative - 160(16) ++++ mg/dL [facility] Leukocytes, UA Negative Negative - 500+++ Tano/mcL [facility] Nitrite, UA Negative Negative - Positive [facility] pH, UA 6 5 - 9 [facility] Protein, UA Negative Negative - 2000(20) ++++ mg/dL [facility] Spec Grav, UA 1.01 1 - 1.03 [facility] Urobilinogen, UA 0.2 0.2 - 12 mg/dL [facility] US OB 14+ WEEKS ANATOMY SCAN on [...] II, MD, PHD at 11-May-2024 12:36:27 AM [facility] Normal Not Available Comment on above: Order Comment: US OB ANATOMY SINGLE W US OB CERVICAL LENGTH Estimated Date of Delivery: 09/24/24 Gestational Age as of 04/07/2024: 15w5d GLUCOSE 1 HOURon 04-10-2024 Glucose [Mass/Vol] 124 mg/dL NINF - 13 0 mg/dL [facility] Urinalysis macro (dipstick) panel (U)on 04-07-2024 Bilirubin, UA Negative Negative - 4(70) +++ mg/dL [facility] Blood, UA Positive Negative - 50 Richy/mcL [facility] Comment on above: trace Clarity, UA Clear [facility] Color, UA Yellow [facility] Glucose, UA Negative Negative - 1999(110) ++++ mg/dL [facility] Interpretation and review of laboratory results Abnormal [facility] Ketones, UA Positive Negative - 160(16) ++++ mg/dL [facility] Comment on above: 15 Leukocytes, UA Negative Negative - 500+++ Tano/mcL [facility] Nitrite, UA Negative Negative - Positive [facility] pH, UA 7 5 - 9 [facility] Protein, UA Negative Negative - 1999(20) ++++ mg/dL [facility] Spec Grav, UA 1.02 1 - 1.03 [facility] Urobilinogen, UA 1.0 0.2 - 12 mg/dL [facility] Urinalysis macro (dipstick) panel (U)on 03-10-2024 Bilirubin, UA Negative Negative - 4(70) +++ mg/dL [facility] Blood, UA Positive Negative - 50 Richy/mcL [facility] Comment on above: trace-intact Clarity, UA Clear [facility] Color, UA Yellow [facility] Glucose, UA Negative Negative - 1999(110) ++++ mg/dL [facility] Interpretation and review of laboratory results Abnormal [facility] Ketones, UA Negative Negative - 160(16) ++++ mg/dL [facility] Leukocytes, UA Negative Negative - 500+++ Tano/mcL [facility] Nitrite, UA Negative Negative - Positive [facility] pH, UA 6.5 5 - 9 [facility] Protein, UA Negative Negative - 1999(20) ++++ mg/dL [facility] Spec Grav, UA 1.01 1 - 1.03 [facility] Urobilinogen, UA 0.2 0.2 - 12 mg/dL [facility] BOX TESTon 02-27-2024 BOX TEST SENT OUT [employer] [facility] [address] [employer] [facility] [address] 02/27/24 [facility] BOX [facility] Urine Cultureon 02-27-2024 Bacteria identified Cx Nom (U) No Growth 2 Days PERFORMED BY: [address] [place] [address] PATHOLOGIST SUPERINTENDENT TESTS SHEREE MCCARTHY M.D. Normal [facility] Comment on above: Performed By: #### C UU #### [facility] [address] HCG ( test) Ql (U)o n 02-11-2024 Interpretation and review of laboratory results Abnormal [facility] Preg Test, Ur Positive Negative [facility] Urinalysis macro (dipstick) panel (U)on 02-11-2024 Bilirubin, UA Positive Negative - 4(70) +++ mg/dL [facility] Comment on above: small Blood, UA Positive Negative - 50 Richy/mcL [facility] Comment on above: trace-lysed Clarity, UA Clear [facility] Color, UA Yellow [facility] Glucose, UA Negative Negative - 2000(110) ++++ mg/dL [facility] Interpretation and review of laboratory results Abnormal [facility] Ketones, UA Positive Negative - 160(16) ++++ mg/dL [facility] Comment on above: trace Leukocytes, UA Trace Negative - 500+++ Tano/mcL [facility] Nitrite, UA Negative Negative - Positive [facility] pH, UA 6 5 - 9 [facility] Protein, UA Positive Negative - 2000(20) ++++ mg/dL [facility] Comment on above: 100 Spec Grav, UA 1.03 1 - 1.03 [facility] Urobilinogen, UA 0.2 0.2 - 12 mg/dL [facility] TBH PREG QUANT HCGon 024 HCG QUANTITATIVE 34847 mIU/mL [facility] Comment on above: 5-50 0.2-1 WEEK 50-500 1-2 WEEKS 100-5,000 2-3 WEEKS 500-10,000 3-4 WEEKS 1,000-50,000 4-5 WEEKS 10,000-100,000 5-6 WEEKS 15,000-200,000 6-8 WEEKS 10,000-100,000 2-3 MONTHS [facility] PREG QUANT HCGon 024 HCG QUANTITATIVE 88696 mIU/mL [facility] Comment on above: 5-50 0.2-1 WEEK 50-500 1-2 WEEKS 100-5,000 2-3 WEEKS 500-10,000 3-4 WEEKS 1,000-50,000 4-5 WEEKS 10,000-100,000 5-6 WEEKS 15,000-200,000 6-8 WEEKS 10,000-100,000 2-[address] [facility] PREG QUANT HCGon 024 HCG QUANTITATIVE 93171 mIU/mL [facility] Comment on above: 5-50 0.2-1 WEEK 50-500 1-2 WEEKS 100-5,000 2-3 WEEKS 500-10,000 3-4 WEEKS 1,000-50,000 4-5 WEEKS 10,000-100,000 5-6 WEEKS 15,000-200,000 6-8 WEEKS 10,000-100,000 2-[address] [facility] PREG QUANT HCGon 024 HCG QUANTITATIVE 62928 mIU/mL [facility] Comment on above: 5-50 0.2-1 WEEK 50-500 1-2 WEEKS 100-5,000 2-3 WEEKS 500-10,000 3-4 WEEKS 1,000-50,000 4-5 WEEKS 10,000-100,000 5-6 WEEKS 15,000-200,000 6-8 WEEKS 10,000-100,000 2-[address] [facility] PREG QUANT HCGon 024 HCG QUANTITATIVE 8911 mIU/mL [facility] Comment on above: 5-50 0.2-1 WEEK 50-500 1-2 WEEKS 100-5,000 2-3 WEEKS 500-10,000 3-4 WEEKS 1,000-50,000 4-5 WEEKS 10,000-100,000 5-6 WEEKS 15,000-200,000 6-8 WEEKS 10,000-100,000 2-[address] [facility] PREG QUANT HCGon 024 HCG QUANTITATIVE 4641 mIU/mL [facility] Comment on above: 5-50 0.2-1 WEEK 50-500 1-2 WEEKS 100-5,000 2-3 WEEKS 500-10,000 3-4 WEEKS 1,000-50,000 4-5 WEEKS 10,000-100,000 5-6 WEEKS 15,000-200,000 6-8 WEEKS 10,000-100,000 2-[address] [facility] PREG QUANT HCGon 024 HCG QUANTITATIVE 2241 mIU/mL [facility] Comment on above: 5-50 0.2-1 WEEK 50-500 1-2 WEEKS 100-5,000 2-3 WEEKS 500-10,000 3-4 WEEKS 1,000-50,000 4-5 WEEKS 10,000-100,000 5-6 WEEKS 15,000-200,000 6-8 WEEKS 10,000-100,000 2[facility] HCGon 25- 024 HCG QUANTITATIVE 884 mIU/mL [facility] Comment on above: 5-50 0.2-1 WEEK 50-500 1-2 WEEKS 100-5,000 2-3 WEEKS 500-10,000 3-4 WEEKS 1,000-50,000 4-5 WEEKS 10,000-100,000 5-6 WEEKS 15,000-200,000 6-8 WEEKS 10,000-100,000 2[facility] IGP,APTIMA HPV,AGE GDLNon AGE GDLN ACOG TESTING Note . [facility] Comment on above: TESTS RESULT FLAG UN ITS REF RANGE LAB Clinician Provided Cytology Information Source.............Cervix;Endocervix No. of containers..01 ThinPrep Vial Age Algo ACOG Sylvia... FLAG LEGEND: L-Low Normal,H-High Normal,LL-Alert Low,HH-Alert High <-Panic Low,>-Panic High,A-Abnormal,AA-Critical Abnormal Performed at: 01 =G [address] [place] [address] Amber Tilley MD, HPV APTIMA Negative Negative [facility] Comment on above: This nucleic acid am plification test detects fourteen high- risk HPV types (16,18,31,33,35,39,45,51,52,56,58,59,66,68) without differentiation. Performed at: =G - [facility], [place] [id number] Supervising Appraiser: Amber Tilley MD, Phone: [phone] Performed at: - [facility], [place] [id number] Supervising Appraiser: Amber Tilley MD, Phone: [phone] IGP, APTIMA HPV, RFX 16/18,45 Note . [facility] Comment on above: TESTS RESULT FLAG U NITS REF RANGE LAB DIAGNOSIS: 02 NEGATIVE FOR INTRAEPITHELIAL LESION OR MALIGNANCY. REACTIVE CELLULAR CHANGES AND/OR REPAIR ARE PRESENT. Specimen adequacy: 02 Satisfactory for evaluation. Endocervical and/or squamous metaplastic cells (endocervical component) are present. Performed by: 02 Peggy Gandhi, Authorizer (ASCP) Electronically si... 02 Divya Hoffman MD, [...] High,A-Abnormal,AA-Critical Abnormal Performed at: 02 [facility] [address] [place] [address] Amber Tilley MD, BRUSH-SPATULA CERVIX ENDOCERVIX [facility] Cytology Cervical or vaginal smear or scraping studyon 12-10-2023 [facility] HCG ( test) Ql (U)o n 12-10-2023 Interpretation and review of laboratory results Normal [facility] Preg Test, Ur Negative [facility] [place] 06-30-2023 L Specimen: [id number] Received: 07/01/23 Status: WEN [place] Num: [id number] Spec Type: Surgical Subm Dr: Orlin Castro Tissues: A Products of Conception - Spontaneous or Missed (POC) Procedures: HE/3, Gross/Micro L4 Age/ Patient Sex Location Account Attending Physician Roxanne Marshall 32/F LABELL [id number] Orlin aCstro SPEC NUM: [id number] RECD: 07/01/23 STATUS: WEN [place] NUM: [id number] [place]: 06/30/[address]: Orlin Castro ENTERED: 07/01/23 [facility] DR: Rosey,Lab SPEC TYPE: Surgical DEPT: [...] spongy harman tissue consistent with villous tissue. [employer] sections are submitted in A1?A3 to include the villous tissue in A1. Clinical history: Missed TW ---- Specimen: [id number] Received: 07/01/23 Status: WEN [place] Num: [id number] Spec Type: Surgical Subm Dr: Orlin Castro Tissues: A Products of Conception - Spontaneous or Missed (POC) Procedures: HE/Ruthy, Gross/Micro L4 ---- Patient: Roxanne Marshall [id number] (Continued) ---- Specimen: [id number] Received: 07/01/23 (Continued) Signed (signature on file) Shen Virgen MD 07/02/23 1859 ---- Specimen: [id number] Received: 07/01/23 Status: WEN [place] Num: [id number] Spec Type: Surgical Subm Dr: Orlin Castro Tissues: A Products of Conception - Spontaneous or Missed (POC) Procedures: SUSY/Meghan Bliss/Maksim L4 ---- Patient: Roxanne Marshall [id number] (Continued) ---- Specimen: [id number] Received: 07/01/23 (Continued) CPT Codes 41974 ---- ---- Specimen: [id number] Received: 07/01/23-1304 Status: WEN [place] Num: [id number] Spec Type: Surgical Subm Dr: Orlin Castro Tissues: A Products of Conception - Spontaneous or Missed (POC) Procedures: HE/Ruthy, Gross/Maksim L4 ---- Patient: Roxanne Marshall [id number] (Continued) ---- Signed (signature on file) Shen Virgen MD 07/02/231858 Normal [facility] [facility] Covid-19 PCR (CVDTB)on 01-25 SARS-CoV-2 (COVID-19) RNA JUAN+probe Ql (Unsp spec) Not detected Normal NOT DETECTED [facility] Comment on above: Result Comment: This test is not yet approved or cleared by the [place] FDA. When there are no FDA-approved or cleared tests available, and other criteria are met, FDA can make tests available under an emergency access mechanism called an Emergency Use Authorization (EUA). The EUA for this test is supported by the [employer] of Health and Human Service's (HHS's) declaration [...] SARS-CoV-2. Performed By: #### C VDTB #### [facility] [address] [place] [address] Dr. Luis Virgen INFLUENZA A AND B [facility] 02-20 [facility] SEE BELOW Normal [facility] Comment on above: Result Comment: Nega tive for Flu B protein antigen. Infection due to Flu B cannot be ruled out. Flu B antigen in the sample may be below the detection limit of the test. Performed By: #### I NFLUAB #### [facility] [address] [place] [address] Dr. Luis Virgen INFLUENZA A AG Positive Abnormal NEGATIVE SEE COMMENT [facility] Comment on above: Performed By: #### I NFLUAB #### [facility] [address] [place] [address] Dr. Luis Virgen INFLUENZA B AG Negative Normal NEGATIVE SEE COMMENT [facility] Comment on above: Performed By: #### I NFLUAB #### [facility] [address] [place] [address] Dr. Luis Virgen XR CHEST 1 Von 02-20-2022 XR CHEST 1 V EXAM: CHEST 1 VIEW HISTORY: COUGH TECHNIQUE: Chest, one view. COMPARISON: None. FINDINGS: Lungs are clear. No focal consolidation, pleural effusion, or pneumothorax. Pulmonary vasculature is within normal limits. Cardiomediastinal silhouette is normal. IMPRESSION: 1. No acute cardiopulmonary disease. Electronically authenticated by: PHOEBE ALFARO Date: 2022-02-20 17:46 Normal [facility] PAP ACOG PANEL 2: 30 to 65on 11-13-2021 . . Normal [facility] Comment on above: Result Comment: Perf ormed at: WB Performed By: #### [id number] #### [facility] [address] [place] [address] Dr. Luis Virgen Age Gdln ACOG Testing 30-65 Normal [facility] Comment on above: Performed By: #### [id number] #### [facility] [address] [address] [address] Luis Virgen DIAGNOSIS: Comment Normal [facility] Comment on above: Result Comment: NEGA TIVE FOR INTRAEPITHELIAL LESION OR MALIGNANCY. Performed at: WB Performed By: #### [id number] #### [facility] [address] [place] [address] Dr. Luis Virgen HPV Aptima Negative Normal Negative [facility] Comment on above: Result Comment: This nucleic acid amplification test detects fourteen high-risk HPV types (16,18,31,33,35,39,45,51,52,56,58,59,66,68) without differentiation. Performed at: =G Performed By: #### [id number] #### [facility] [address] [place] [address] Dr. Luis Virgen Methodology: Comment [facility] Comment on above: Result Comment: This liquid based ThinPrep(R) pap test was screened with the use of an image guided system. Performed at: WB Performed By: #### [id number] #### [facility] [address] [place] [address] Dr. Luis Virgen Note: Comment Normal [facility] Comment on above: Result Comment: The Pap smear is a screening test designed to aid in the detection of premalignant and malignant conditions of the uterine cervix. It is not a diagnostic procedure and should not be used as the sole means of detecting cervical cancer. Both false-positive and false-negative reports do occur. . Performed at: WB Performed By: #### [id number] #### [facility] [address] [address] [address] Luis Virgen Performed by: Comment Normal [facility] Comment on above: Result Comment: Maureen Del Cid, Authorizer (ASCP) Performed at: WB Performed By: #### [id number] #### [facility] [address] [place] [address] Dr. Luis Virgen Specimen adequacy: Comment Normal [facility] Comment on above: Result Comment: Sati sfactory for evaluation. Endocervical and/or squamous metaplastic cells (endocervical component) are present. Performed at: WB Performed By: #### [id number] #### [facility] [address] [address] [address] Luis Virgen URon 08-20-2021 , QUAL Negative Normal NEGATIVE [facility] Comment on above: Performed By: #### P REGU #### [facility] [address] [place] [address] Dr. Luis Virgen CBC AUTO DIFFon 08-06-2021 BASO # 0.0 103/ul Normal 0.0-0.1 [facility] Comment on above: Performed By: #### C BC #### [facility] [address] [place] [address] Dr. Luis Virgen Basophils/100 WBC (Bld) 0.3 % Normal 0.2-2.0 [facility] Comment on above: Performed By: #### C BC #### [facility] [address] [place] [address] Dr. Luis Virgen EO # 0.0 103/ul Normal 0.0-0.7 [facility] Comment on above: Performed By: #### C BC #### [facility] [address] [place] [address] Dr. Luis Virgen Eosinophils/100 WBC (Bld) 0.3 % Critically low 0.9-7.0 [facility] Comment on above: Performed By: #### C BC #### [facility] [address] [place] [address] Dr. Luis Virgen Erythrocyte distribution width (RBC) [Ratio] 12.6 % Normal 11.0-15.0 [facility] Comment on above: Performed By: #### C BC #### [facility] [address] [place] [address] Dr. Luis Virgen Hematocrit (Bld) [Volume fraction] 41.5 % Normal 36.0-48.0 [facility] Comment on above: Performed By: #### C BC #### [facility] [address] [place] [address] Dr. Luis Virgen Hemoglobin (Bld) [Mass/Vol] 13.5 g/dL Normal 12.0-16.0 [facility] Comment on above: Performed By: #### C BC #### [facility] [address] [place] [address] Dr. Luis Virgen IG # 0.03 10e3/ul Normal 0.00-0.03 [facility] Comment on above: Performed By: #### C BC #### [facility] [address] [place] [address] Dr. Luis Virgen IG % 0.4 % Normal 0.0-0.5 [facility] Comment on above: Performed By: #### C BC #### [facility] [address] [place] [address] Dr. Luis Virgen LYMPH # 2.4 103/ul Normal 1.2-3.8 [facility] Comment on above: Performed By: #### C BC #### [facility] [address] [place] [address] Dr. Luis Virgen Lymphocytes/100 WBC (Bld) 31.8 % Normal 20.5-60.0 [facility] Comment on above: Performed By: #### C BC #### [facility] [address] [place] [address] Dr. Luis Virgen MANUAL DIFF REQ NO Normal [facility] Comment on above: Performed By: #### C BC #### [facility] [address] [place] [address] Dr. Luis Virgen MCH (RBC) [Entitic mass] 30.5 pg Normal 26.7-34.0 [facility] Comment on above: Performed By: #### C BC #### [facility] [address] [address] [address] Luis Virgen MCHC (RBC) [Mass/Vol] 32.5 g/dL Normal 29.9-35.2 [facility] Comment on above: Performed By: #### C BC #### [facility] [address] [place] [address] Dr. Luis Virgen MCV (RBC) [Entitic vol] 93.9 fL Normal 81.0-99.0 [facility] Comment on above: Performed By: #### C BC #### [facility] [address] [place] [address] Dr. Luis Virgen MONO # 0.6 103/ul Normal 0.3-0.8 [facility] Comment on above: Performed By: #### C BC #### [facility] [address] [place] [address] Dr. Luis Virgen Monocytes/100 WBC (Bld) 7.4 % Normal 1.7-12.0 [facility] Comment on above: Performed By: #### C BC #### [facility] [address] [place] [address] Dr. Luis Virgen NEUT # 4.5 103/ul Normal 1.4-6.5 [facility] Comment on above: Performed By: #### C BC #### [facility] [address] [place] [address] Dr. Luis Virgen Neutrophils/100 WBC (Bld) 59.8 % Normal 43.0-75.0 [facility] Comment on above: Performed By: #### C BC #### [facility] [address] [place] [address] Dr. Luis Virgen Platelet mean volume (Bld) [Entitic vol] 10.0 fL Normal 9.5-13.5 [facility] Comment on above: Performed By: #### C BC #### [facility] [address] [place] [address] Dr. Luis Virgen PLT 337 103/ul Normal 150-450 [facility] Comment on above: Performed By: #### C BC #### [facility] [address] [place] [address] Dr. Luis Virgen RBC 4.42 106/ul Normal 4.20-5.40 [facility] Comment on above: Performed By: #### C BC #### [facility] [address] [place] [address] Dr. Luis Virgen WBC 7.6 103/ul Normal 4.0-11.0 [facility] Comment on above: Performed By: #### C BC #### [facility] [address] [place] [address] Dr. Luis Virgen FREE T4on 08-06-2021 Free T4 [Mass/Vol] 0.91 ng/dL Normal 0.76-1.46 [facility] Comment on above: Performed By: #### F T4 #### [facility] [address] [place] [address] Dr. Luis Virgen LIPID PROFILEon 08-06-2021 CHOL-HDL RATIO NORM SEE BELOW Normal [facility] Comment on above: Result Comment: 3.3 - 4.4 LOW RISK 4.4 - 7.1 AVERAGE RISK 7.1 - 11.0 MODERATE RISK >11.0 HIGH RISK Performed By: #### C MP, TSH, LIPID #### [facility] [address] [place] [address] Dr. Luis Virgen Cholesterol [Mass/Vol] 154 mg/dL Normal <=200 [facility] Comment on above: Performed By: #### C MP, TSH, LIPID #### [facility] [address] [place] [address] Dr. Luis Virgen Cholesterol in HDL [Mass/Vol] 35 mg/dL Critically low 40-60 [facility] Comment on above: Performed By: #### C MP, TSH, LIPID #### [facility] [address] [place] [address] Dr. Luis Virgen Cholesterol in LDL [Mass/Vol] 80.8 mg/dL Normal [facility] Comment on above: Performed By: #### C MP, TSH, LIPID #### [facility] [address] [place] [address] Dr. Luis Virgen Cholesterol.total/C holesterol in HDL [Mass ratio] 4.4 {ratio} Normal [facility] Comment on above: Performed By: #### C MP, TSH, LIPID #### [facility] [address] [place] [address] Dr. Luis Virgen HDL NORMAL > or = 60 mg/dl - LO W CARDIOVASCULAR RISK <40 mg/dl - HIGH CARDIOVASCULAR RISK Normal [facility] Comment on above: Performed By: #### C MP, TSH, LIPID #### [facility] [address] [place] [address] Dr. Luis Virgen LDL CALC NORMAL SEE BELOW Normal [facility] Comment on above: Result Comment: <100 mg/dl OPTIMAL 100 - 129 mg/dl NEAR OR ABOVE OPTIMAL 130 - 159 mg/dl BORDERLINE HIGH 160 - 189 mg/dl HIGH >190 mg/dl VERY HIGH Performed By: #### C MP, TSH, LIPID #### [facility] [address] [place] [address] Dr. Luis Virgen Triglyceride [Mass/Vol] 191 mg/dL Critically high <=150 [facility] Comment on above: Performed By: #### C MP, TSH, LIPID #### [facility] [address] [place] [address] Dr. Luis Virgen VLDL CALC 38.2 mg/dL Normal [facility] Comment on above: Performed By: #### C MP, TSH, LIPID #### [facility] [address] [place] [address] Dr. Luis Virgen PROF 14(COMP METB)on 022 Albumin [Mass/Vol] 4.1 g/dL Normal 3.4-5.0 [facility] Comment on above: Performed By: #### C MP, TSH, LIPID #### [facility] [address] [place] [address] Dr. Luis Virgen Albumin/Globulin [Mass ratio] 1.2 {ratio} Normal [facility] Comment on above: Performed By: #### C MP, TSH, LIPID #### [facility] [address] [place] [address] Dr. Luis Virgen ALP [Catalytic activity/Vol] 73 U/L Normal 46-116 [facility] Comment on above: Performed By: #### C MP, TSH, LIPID #### [facility] [address] [address] [address] Luis Virgen ALT [Catalytic activity/Vol] 24 U/L Normal 14-59 [facility] Comment on above: Performed By: #### C MP, TSH, LIPID #### [facility] [address] [address] [address] Luis Virgen Anion gap [Moles/Vol] 13.2 mmol/L Normal [facility] Comment on above: Performed By: #### C MP, TSH, LIPID #### [facility] [address] [place] [address] Dr. Luis Virgen AST [Catalytic activity/Vol] 11 U/L Critically low 15-37 [facility] Comment on above: Performed By: #### C MP, TSH, LIPID #### [facility] [address] [place] [address] Dr. Luis Virgen Bilirubin [Mass/Vol] 0.8 mg/dL Normal 0.2-1.0 [facility] Comment on above: Performed By: #### C MP, TSH, LIPID #### [facility] [address] [place] [address] Dr. Luis Virgen Calcium [Mass/Vol] 8.9 mg/dL Normal 8.5-10.1 [facility] Comment on above: Performed By: #### C MP, TSH, LIPID #### [facility] [address] [place] [address] Dr. Luis Virgen Chloride [Moles/Vol] 103 mmol/L Normal 98-107 [facility] Comment on above: Performed By: #### C MP, TSH, LIPID #### [facility] [address] [place] [address] Dr. Luis Virgen CO2 [Moles/Vol] 27.5 mmol/L Normal 21.0-32.0 [facility] Comment on above: Performed By: #### C MP, TSH, LIPID #### [facility] [address] [address] [address] Luis Virgen Creatinine [Mass/Vol] 0.71 mg/dL Normal 0.55-1.02 [facility] Comment on above: Performed By: #### C MP, TSH, LIPID #### [facility] [address] [address] [address] Luis Virgen EGFR-AF [place] >60 Normal >=60 [facility] Comment on above: Performed By: #### C MP, TSH, LIPID #### [facility] [address] [address] [address] Luis Virgen EGFR-NON AF [place]ER >60 Normal >=60 [facility] Comment on above: Performed By: #### C MP, TSH, LIPID #### [facility] [address] [address] [address] Luis Virgen Globulin (S) [Mass/Vol] 3.5 g/dL Normal [facility] Comment on above: Performed By: #### C MP, TSH, LIPID #### [facility] [address] [address] [address] Luis Virgen Glucose [Mass/Vol] 101 mg/dL Normal 74-106 [facility] Comment on above: Performed By: #### C MP, TSH, LIPID #### [facility] [address] [address] [address] Luis Virgen Potassium [Moles/Vol] 4.7 mmol/L Normal 3.5-5.1 [facility] Comment on above: Performed By: #### C MP, TSH, LIPID #### [facility] [address] [address] [address] Luis Virgen Protein [Mass/Vol] 7.6 g/dL Normal 6.4-8.2 [facility] Comment on above: Performed By: #### C MP, TSH, LIPID #### [facility] [address] [address] [address] Luis Virgen Sodium [Moles/Vol] 139 mmol/L Normal 136-145 [facility] Comment on above: Performed By: #### C MP, TSH, LIPID #### [facility] [address] [address] [address] Luis Virgen Urea nitrogen [Mass/Vol] 9.0 mg/dL Normal 7.0-18.0 [facility] Comment on above: Performed By: #### C MP, TSH, LIPID #### [facility] [address] [address] [address] Luis Virgen Urea nitrogen/Creatinine [Mass ratio] 12.7 mg/mg Normal [facility] Comment on above: Performed By: #### C MP, TSH, LIPID #### [facility] [address] [address] [address] Luis Virgen TSHon 08-06-2021 TSH 0.924 uIU/mL Normal 0.358-3.740 [facility] Comment on above: Performed By: #### C MP, TSH, LIPID #### [facility] [address] [place] [address] Dr. Luis Virgen TSH RANGE SEE BELOW Normal [facility] Comment on above: Result Comment: <0.3 4 UIU/ml HYPERTHYROID 0.34-5.60 UIU/ml EUTHYROID >5.60 UIU/ml HYPOTHYROID Performed By: #### C MP, TSH, LIPID #### [facility] [address] [place] [address] Dr. Luis Virgen Vital Signs Date Time Vital Sign Value Performing Clinician Quinn elizondo 08-04-2024 14:31-0400 Body mass index (BMI) [Ratio] 32.95 kg/m2 [employer] Work Phone: [facility] 08-04-2024 14:31-0400 Body weight 79.11 kg [employer] DO Work Phone: [facility] 08-04-2024 14:31-0400 Diastolic blood pressure 76 mm[Hg] [employer] DO Work Phone: [facility] 08-04-2024 14:31-0400 Systolic blood pressure 120 mm[Hg] [employer] Work Phone: [facility] 07-21-2024 14:30-0400 Body mass index (BMI) [Ratio] 33.14 kg/m2 Vidya Jackson PA Work Phone: [facility] 07-21-2024 14:30-0400 Body weight 79.56 kg Vidya Jackson PA Work Phone: [facility] 07-21-2024 14:30-0400 Diastolic blood pressure 74 mm[Hg] Vidya Jackson PA Work Phone: [facility] 07-21-2024 14:30-0400 Systolic blood pressure 110 mm[Hg] Vidya Jackson PA Work Phone: [facility] 07-06-2024 14:09-0400 Body mass index (BMI) [Ratio] 32.69 kg/m2 Orlin Gloria DO Work Phone: [facility] 07-06-2024 14:09-0400 Body weight 78.47 kg Orlin Gloria DO Work Phone: [facility] 07-06-2024 14:09-0400 Diastolic blood pressure 72 mm[Hg] Orlin Gloria DO Work Phone: [facility] 07-06-2024 14:09-0400 Systolic blood pressure 118 mm[Hg] Orlin Gloria DO Work Phone: [facility] 06-16-2024 14:05-0400 Body mass index (BMI) [Ratio] 32.12 kg/m2 [employer]imena Mehul [employer] Work Phone: [facility] 06-16-2024 14:05-0400 Body weight 77.11 kg Ximena Mehul [employer] Work Phone: [facility] 06-16-2024 14:05-0400 Diastolic blood pressure 70 mm[Hg] Ximena Mehul [employer] Work Phone: [facility] 06-16-2024 14:05-0400 Systolic blood pressure 114 mm[Hg] Ximena Mehul [employer] Work Phone: [facility] 04-07-2024 15:02-0500 Body mass index (BMI) [Ratio] 30.8 kg/m2 Vidya Jackson PA Work Phone: [facility] 04-07-2024 15:02-0500 Body weight 73.94 kg Vidya Jackson PA Work Phone: [facility] 04-07-2024 15:02-0500 Diastolic blood pressure 62 mm[Hg] Vidya Jackson PA Work Phone: [facility] 04-07-2024 15:02-0500 Systolic blood pressure 116 mm[Hg] Vidya Jackson PA Work Phone: [facility] 03-10-2024 14:45-0500 Body mass index (BMI) [Ratio] 30.63 kg/m2 Orlin Gloria DO Work Phone: [facility] 03-10-2024 14:45-0500 Body weight 73.54 kg Orlin Gloria DO Work Phone: [facility] 03-10-2024 14:45-0500 Diastolic blood pressure 66 mm[Hg] Orlin Gloria DO Work Phone: [facility] 03-10-2024 14:45-0500 Systolic blood pressure 110 mm[Hg] Orlin Gloria DO Work Phone: [facility] 02-11-2024 10:34-0500 Body mass index (BMI) [Ratio] 30.69 kg/m2 [facility] 02-11-2024 10:34-0500 Body weight 73.66 kg [facility] 02-11-2024 10:34-0500 Diastolic blood pressure 77 mm[Hg] [facility] 02-11-2024 10:34-0500 Systolic blood pressure 110 mm[Hg] [facility] 12-10-2023 13:12-0400 Body mass index (BMI) [Ratio] 30.76 kg/m2 Orlin Gloria DO Work Phone: [facility] 12-10-2023 13:12-0400 Body weight 73.85 kg Orlin Gloria DO Work Phone: [facility] 12-10-2023 13:12-0400 Diastolic blood pressure 78 mm[Hg] Orlin Gloria DO Work Phone: [facility] 12-10-2023 13:12-0400 Systolic blood pressure 116 mm[Hg] Orlin Gloria DO Work Phone: [facility] Healthcare Encounters Encounter Date Encounter Type Care Provider Facility Start: 08-04-2024 End: 08-04-2024 Office outpatient visit 15 minutes Orlin Gloria DO Work Phone: [facility] Comment on above: 32 weeks gestation o f ; Third trimester Start: 08-04-2024 End: 08-04-2024 ambulatory ORLIN GLORIA Not Available Start: 08-04-2024 End: 08-04-2024 Clinis[employer] Result Encounter Generic External Data Provider [facility] External Department Unsolicited Start: 08-04-2024 End: 08-04-2024 Clinisync Result Encounter Generic External Data Provider [facility] External Department Unsolicited Start: 07-23-2024 End: 07-23-2024 Clinisync Result Encounter Generic External Data Provider [facility] External Department Unsolicited Start: 07-23-2024 End: 07-23-2024 Clinis[employer] Result Encounter Generic External Data Provider [facility] External Department Unsolicited Start: 07-21-2024 End: 07-21-2024 Office outpatient visit 15 minutes Vidya Jackson PA Work Phone: [facility] Comment on [...] 06-16-2024 End: 06-17-2024 Bamboo flowsheet Ximena Carver [employer] Work Phone: [facility] Start: 06-16-2024 End: 06-17-2024 External Result Encounter Orlin Gloria DO Work Phone: [facility] External Department Unsolicited Start: 06-16-2024 End: 06-16-2024 Office outpatient visit 15 minutes Ximena Carver NP Work Phone: [facility] Comment on above: Second trimester pre [...] Start: 02-27-2024 End: 02-27-2024 ambulatory Orlin Gloria [facility] Work Phone: Start: 02-27-2024 End: 02-27-2024 Departed Referred Orlin Gloria DO Work Phone: [facility] Start: 02-27-2024 End: 02-27-2024 Clinisync Result Encounter Generic External Data Provider [facility] External [facility] Unsolicited Start: 02-27-2024 End: 02-27-2024 Clinisync Result Encounter Generic External Data Provider [facility] External Department Unsolicited Start: 02-25-2024 End: 02-26-2024 Refill Анна Ha DISEASE AND INSECT CONTROL BOSS Work Phone: [facility] Comment on [...] 06-30-2023 ambulatory MD Dar Brody Work Phone: [facility] Work Phone: Start: 06-30-2023 End: 06-30-2023 Departed Referred MD Dar Brody Work Phone: [facility] Start: 02-20-2022 End: 02-20-2022 ambulatory GRADES 6 THROUGH 8 TEACHER АННА MONTY Facility: Start: 11-06-2021 End: 11-06-[address] ORLIN CASTRO Facility:H1 Start: 08-20-2021 End: 08-20-2021 ambulatory MARLYN HA Facility:[facility]1 Start: 08-06-2021 End: 08-07-2021 ambulatory MARLYN HA Facility:[facility]1 Procedures Date Procedure Procedure Detail Performing Clinician Start: 08-04-2024 Urnls dip stick/tabl et rgnt non-auto w/o micrscp Orlin Gloria DO Work Phone: Start: 08-04-2024 US OB BPP W NON-STRESS Generic External Data Provider Start: 07-23-2024 GLUCOSE TOLERANCE 3 HOUR Orlin Gloria DO Work Phone: Start: 07-06-2024 Urnls dip stick/tabl et rgnt non-auto w/o micrscp Orlin Gloria DO Work Phone: Start: 07-05-2024 ALL CBC WITH AUTO DIFF Ximena Carver DISEASE [employer]SE[employer] Work Phone: Start: 06-16-2024 RECURRENT VAGINITIS (HTRX) Orlin Gloria DO Work Phone: Start: 06-16-2024 Urnls dip stick/tabl et rgnt non-auto w/o micrscp Ximena Carver DISEASE [employer]SE[employer] Work Phone: Start: 04-10-2024 GLUCOSE 1 HOUR [...] 12-10-2023 Urine test visual color cmprsn meths [employer] DO Work Phone: Start: 12-10-2023 IGP,APTIMA HPV,AGE GDLN [employer] DO Work Phone: Start: 12-10-2023 Microscopic observat ion [Identifier] in Cervix by Cyto stain Ximena Carver [employer] Work Phone: Start: 12-10-2023 Cytp cerv/vag auto t hin layer prep mnl screen [employer] DO Work Phone: Start: 11-25-2022 Microscopic observat ion [Identifier] in Cervix by Cyto stain Orlin Gloria DO Work Phone: Plan of Treatment Date Care Activity Detail Author Start: 12-09-2028 Screening for malign ant neoplasm of cervix [facility] Start: 11-25-2025 Screening for malign ant neoplasm of cervix [facility] Start: 12-15-2024 End: 12-15-2024 Patient encounter procedure 12/15/2024 3:00 PM EDT Office Visit [facility] [address] [facility] [place] [phone] Orlin Castro, DO [address] [place] [address] [facility] Start: 09-07-2024 End: 09-07-2024 Patient encounter procedure 09/07/2024 1:00 PM EDT Office Visit [facility] [address] [place] [address] Анна Ha NP [address] [place] [address] [facility] Start: 08-18-2024 End: 08-18-2024 Patient encounter procedure 08/18/2024 9:30 AM EDT Routine [facility] [address] [facility] [place] [phone] Ximena Carver, VÍCTOR [address] [facility] [address] [place] [phone] [facility] Start: 08-04-2024 End: 08-04-2024 Patient encounter procedure 08/04/2024 2:20 PM EDT Routine [facility] [address] [place] [phone] Orlin Castro, DO [address] [place] [address] [facility] Start: 07-21-2024 End: 07-21-2024 Patient encounter procedure 07/21/2024 2:20 PM EDT Routine [facility] [address] [place] [phone] Vidya Jackson PA [address] [place], [place] [id number] [facility] Start: 07-21-2024 End: 01-21-2025 US biophysical profile w non stress test US biophysical profile w non stress test Imaging Routine History of gestational diabetes Expected: 07/21/2024 (Approximate), Expires: 01/21/2025 [facility] Work Phone: Comment on above: Expected: 07/21/2024 (Approximate), Expires: 01/21/2025 Start: 07-21-2024 End: 11-21-2024 US for US OB follow up transabdominal approach Imaging Routine History of gestational diabetes Expected: 07/21/2024, Expires: 11/21/2024 [facility] Comment on above: Expected: 07/21/2024 , Expires: 11/21/2024 Start: 07-06-2024 End: 07-06-2025 Measurement of glucose 1 hour after glucose challenge for glucose tolerance test Glucose tolerance, 1 hour Lab Routine Diabetes mellitus screening Expected: 07/06/2024 (Approximate), Expires: 07/06/2025 [facility] Work Phone: Comment on above: Expected: 07/06/2024 (Approximate), Expires: 07/06/2025 Start: 07-06-2024 End: 11-06-2024 US for US OB follow up transabdominal approach Imaging Routine SGA (small for gestational age) Expected: 07/06/2024, Expires: 11/06/2024 [facility] Comment on above: Expected: 07/06/2024 , Expires: 11/06/2024 Start: 07-06-2024 End: 07-06-2024 Patient encounter procedure 07/06/2024 1:50 PM EDT Routine [facility] [address] [place] [phone] Orlin Castro, [address] [place] [address] [facility] Start: 07-06-2024 End: 07-06-2024 Professional / ancillary services management 07/06/2024 1:30 PM EDT Ancillary Procedure [facility] [address] [place] [phone] [facility] Start: 06-16-2024 End: 06-16-2025 CBC panel - Blood by Automated count CBC Lab Routine Diabetes mellitus screening Expected: 06/16/2024 (Approximate), Expires: 06/16/2025 [facility] Comment on above: Expected: 06/16/2024 (Approximate), Expires: 06/16/2025 Start: 06-16-2024 End: 06-16-2025 Measurement of glucose 1 hour after glucose challenge for glucose tolerance test Glucose tolerance, 1 hour Lab Routine Diabetes mellitus screening Expected: 06/16/2024 (Approximate), Expires: 06/16/2025 [facility] Comment on above: Expected: 06/16/2024 (Approximate), Expires: 06/16/2025 Start: 06-16-2024 End: 10-16-2024 US for US OB follow up transabdominal approach Imaging Routine Antepartum multigravida of advanced maternal age Expected: 06/16/2024, Expires: 10/16/2024 [facility] Work Phone: Comment on above: Expected: 06/16/2024 , Expires: 10/16/2024 Start: 06-16-2024 End: 06-16-2024 Patient encounter procedure 06/16/2024 1:20 PM EDT Routine [facility] [address] [facility] [place] [phone] Ximena Carver, DISEASE AND INSECT CONTROL BOSS [address] [place] [phone] Arrived [facility] Comment on above: Arrived Start: 05-10-2024 End: 05-10-2024 Patient encounter procedure 05/10/2024 2:40 PM EDT Routine [facility] [address] [facility] [place] [phone] Orlin Castro, [address] [place] [address] [facility] Start: 05-10-2024 End: 05-10-2024 Professional / ancillary services management 05/10/2024 1:30 PM EDT Ancillary Procedure [facility] [address] [facility] [place] [phone] [facility] Start: 04-07-2024 End: 04-07-2024 Patient encounter procedure [facility] Comment on above: Arrived Start: 04-07-2024 End: 05-05-2024 Alpha fetoprotein, maternal Alpha fetoprotein, maternal Lab Routine Need for maternal serum alpha-protein (MSAFP) screening Expected: 04/07/2024 (Approximate), Expires: 05/05/2024 [facility] Comment on above: Expected: 04/07/2024 (Approximate), Expires: 05/05/2024 Start: 04-07-2024 End: 04-07-2025 Measurement of glucose 1 hour after glucose challenge for glucose tolerance test Glucose tolerance, 1 hour Lab Routine Diabetes mellitus screening Expected: 04/07/2024 (Approximate), Expires: 04/07/2025 [facility] Work Phone: Comment on above: Expected: 04/07/2024 (Approximate), Expires: 04/07/2025 Start: 04-07-2024 End: 04-07-2025 US for US OB 14+ weeks anatomy scan Imaging Routine Screening, , for anatomic survey Expected: 04/07/2024, Expires: 04/07/2025 [facility] Comment on above: Expected: 04/07/2024 , Expires: 04/07/2025 Start: 03-10-2024 End: 03-10-2024 Patient encounter procedure 03/10/2024 2:20 PM EST Routine [facility] [address] [place] [address] Orlin Castro DO [address] [place] [address] [facility] Start: 03-02-2024 End: 03-02-2024 Patient encounter procedure 03/02/2024 9:40 AM EST Office Visit [facility] [address] [place] [address] Анна Ha, VÍCTOR [address] [place] [address] [facility] Start: 02-27-2024 Urine culture [facility] Start: 02-27-2024 Bacteria identified in Urine by Culture Urine Culture [facility] Start: 02-11-2024 End: 02-10-2025 ABO/Rh ABO/Rh Lab Routine Missed menses , unspecified gestational age Expected: 02/11/2024 (Approximate), Expires: 02/10/2025 [facility] Comment on above: Expected: 02/11/2024 (Approximate), Expires: 02/10/2025 Start: 02-11-2024 End: 02-10-2025 Blood type and Indirect antibody screen panel - Blood Type and screen Lab Routine Missed menses , unspecified gestational age Expected: 02/11/2024 (Approximate), Expires: 02/10/2025 [facility] Work Phone: Comment on above: Expected: 02/11/2024 (Approximate), Expires: 02/10/2025 Start: 02-11-2024 End: 02-10-2025 Drugs of abuse panel - Urine by Screen method Rapid drug screen, urine Lab Routine , unspecified gestational age Encounter for supervision of normal first in first trimester Expected: 02/11/2024 (Approximate), Expires: 02/10/2025 [facility] Comment on above: Expected: 02/11/2024 (Approximate), Expires: 02/10/2025 Start: 02-11-2024 End: 02-10-2025 US Pelvis transvaginal US OB transvaginal Imaging Routine Missed menses Expected: 02/11/2024 (Approximate), Expires: 02/10/2025 [facility] Comment on above: Expected: 02/11/2024 (Approximate), Expires: 02/10/2025 Start: 02-11-2024 End: 02-11-2024 ambulatory 02/11/2024 10:00 AM EST Initial [facility] [address] [facility] [place] [address] [facility] Start: 02-11-2024 End: 02-11-2024 Professional / ancillary services management 02/11/2024 9:30 AM EST Ancillary Procedure [facility] [address] [facility] [place] [address] [facility] Start: 2018 Screening for malign ant neoplasm of cervix HPV/Cotest [facility] Bacteria identified in Urine by Culture Urine culture Microbiology Routine Missed menses Ordered: 02/11/2024 [facility] Comment on above: Ordered: 02/11/2024 CBC W Auto Different ial panel - Blood CBC and differential Lab Routine Missed menses , unspecified gestational age Ordered: 02/11/2024 [facility] Comment on above: Ordered: 02/11/2024 CHLAMYDIA TRACHOMATI S (GENITO/STI) CHLAMYDIA TRACHOMATIS (GENITO/STI) Lab Routine Screen for STD (sexually transmitted disease) Ordered: 06/16/2024 [facility] Comment on above: Ordered: 06/16/2024 Cytology Cervical or vaginal smear or scraping study Pap Smear Pathology and Cytology Routine Well woman exam with routine gynecological exam Ordered: 12/10/2023 [facility] Work Phone: Comment on above: Ordered: 12/10/2023 Hemoglobin A1c/Hemoglobin.total in Blood Hemoglobin A1c Lab Routine Missed menses , unspecified gestational age Ordered: 02/11/2024 [facility] Comment on above: Ordered: 02/11/2024 Hepatitis B virus surface Ag [Presence] in Serum or Plasma by Immunoassay Hepatitis B surface antigen Lab Routine Missed menses , unspecified gestational age Ordered: 02/11/2024 [facility] Comment on above: Ordered: 02/11/2024 Hepatitis C virus Ab [Presence] in Serum or Plasma by Immunoassay Hepatitis C antibody Lab Routine Missed menses , unspecified gestational age Ordered: 02/11/2024 [facility] Comment on above: Ordered: 02/11/2024 HIV-1/HIV-2 antigen/antibody combination immunoassay HIV-1 and HIV-2 antibodies Lab Routine Missed menses , unspecified gestational age Ordered: 02/11/2024 [facility] Comment on above: Ordered: 02/11/2024 Human papilloma viru s DNA [Presence] in Unspecified specimen by Probe with amplification HPV DNA probe, amplified Microbiology Routine Well woman exam with routine gynecological exam Ordered: 12/10/2023 [facility] Comment on above: Ordered: 12/10/2023 Neisseria gonorrhoea e DNA [Presence] in Unspecified specimen by JUAN with probe detection Neisseria gonorrhea DNA probe, direct Lab Routine Screen for STD (sexually transmitted disease) Ordered: 06/16/2024 [facility] Comment on above: Ordered: 06/16/2024 Reagin Ab [Presence] in Serum by RPR RPR Lab Routine Missed menses , unspecified gestational age Ordered: 02/11/2024 [facility] Comment on above: Ordered: 02/11/2024 Rubella antibody, IgG Rubella an tibody, IgG Lab Routine Missed menses , unspecified gestational age Ordered: 02/11/2024 [facility] Comment on above: Ordered: 02/11/2024 SURESWAB(R) ADVANCED VAGINITIS PLUS, TMA SURESWAB(R) ADVANCED VAGINITIS PLUS, TMA Pathology and Cytology Routine Screen for STD (sexually transmitted disease) Ordered: 06/16/2024 [facility] Work Phone: Comment on above: Ordered: 06/16/2024 Immunizations Immunization Date Immunization Notes Care Provider Joan ornelas 12-08-2017 influenza, seasonal, injectable, preservative free Orlin Gloria DO Work Phone: [facility] Payers Date Payer Category Payer Self-pay [id number] 2023 Managed Care O (unspecified) [employer] [id number] 2023 Private Health Insurance [id number] 2022 Medicaid (Managed Care) [employer] [id number] 1988 Unknown [id number] 2.840.1.895002.3.579. 2.593 1988 Unknown [id number] 2.0.1.113334.3.579. 2.593 1988 Unknown [id number] 2.840.1.770825.3.579. 2.593 1988 Unknown [id number] 2.0.1.295879.3.579. 2.593 1988 Unknown [id number] 2.16840.1.229884.3.579. 2.1259 1988 Unknown [id number] 2.16840.1.071424.3.579. 2.1259 1988 Unknown [id number] 2.16840.1.279241.3.579. 2.1259 1988 Unknown [id number] 2.16840.1.834253.3.579. 2.1259 1988 Unknown [id number] 2.16840.1.037758.3.579. 2.9 1988 Unknown [id number] 2.16.840.1.584570.3.579. 2.1258 1988 Unknown [id number] 2.16.840.1.095631.3.579. 2.1258 1988 Unknown [id number] 2.16.840.1.378354.3.579. 2.1258 1988 Unknown [id number] 2.16.840.1.496985.3.579. 2.1258 1988 Unknown [id number] 2.16.840.1.454511.3.579. 2.1258 1988 Unknown [id number] 2.16.840.1.961238.3.579. 2.1258 1988 Unknown [id number] 2.16.840.1.217566.3.579. 2.9 1959 Unknown [id number] Private Health Insurance [employer] [id number] Unknown [id number] 2.16.840.1.833034.3.579. 2.531 Unknown [id number] 2.16.840.1.703532.3.579. 2.531 Social History Date Type Detail Facility Start: 03-05-2019 End: 03-05-2019 Tobacco smoking status [facility] Never smoked tobacco (finding) [facility] Start: 1990 Sex Assigned At Female [facility] Start: 10-30-2022 Tobacco smoking status [facility] Ex-smoker [facility] End: 02-24-2014 History of tobacco use Current smoker [facility] End: 02-24-2014 History of tobacco use Cigarette Smoker [facility] Start: 10-30-2022 Tobacco use and exposure Smokeless tobacco non-user [facility] Start: 12-10-2023 End: 08-04-2024 Alcoholic beverage intake Lifetime non-drinker (finding) [facility] Start: 05-19-2023 End: 06-08-2024 History of Social function [facility] Start: 05-19-2023 End: 06-08-2024 Social connection and isolation panel [facility] Do you belong to any clubs or organizations such as anabaptism groups, unions, fraternal or athletic groups, or [...] [facility] Start: 02-28-2024 Sex Female (finding) [facility] Goals Date Patient Goal Desired Activity /State Personal health goal Clinical Notes 12-10-2023 to 08-04-2024 Isatu Gilbert LPN - 08/04/2024 2:20 PM GISELLE Tracy - 07/21/2024 2:20 PM Fred Gilbert LPN - 07/06/2024 1:50 PM Percy Carver NP - 06/16/2024 1:20 PM EDT Note Date & Type Note Facility 08-04-2024 History of Present illness Narrative Reason for Appointment: Patient ID: Roxanne Marshall is a 33 y.o. female who [...] for wellness examination in adult 09/01/2023 Depression ([facility]) 09/01/2023 Resolved Ambulatory Problems Diagnosis Date Noted Major depressive disorder, single episode, mild (HCC) ([facility]) 09/01/2023 Past Medical History: Diagnosis Date Abnormal [...] abnormal pap smear PAP SMEAR 03/07/2014 [facility] Drug Therapy -SVT TONSILLECTOMY 1992 [...] nursing note reviewed. Exam conducted with a platform supervisor present. Vitals: Estimated body mass index is 32.95 kg/m as calculated from the following: Height [...] Orlin Castro DO documented in this encounter [facility] 07-21-2024 History of Present illness Narrative Reason for Appointment: Patient ID: Roxanne Marshall is a 33 y.o. female who [...] abnormal pap smear PAP SMEAR 03/07/2014 [facility]NAG[facility] Drug Therapy -SVT TONSILLECTOMY 1992 [...] calculated from the following: Height as of 08/31/24: 5' 1 . Weight as of this [...] of: GISELLE Cramer documented in this encounter [facility] 07-06-2024 History of Present illness Narrative Reason for Appointment: Patient ID: Roxanne Marshall is a 33 y.o. female who [...] for wellness examination in adult 09/01/2023 Depression ([facility]) 09/01/2023 Resolved Ambulatory Problems Diagnosis Date Noted Major depressive disorder, single episode, mild (HCC) ([facility]) 09/01/2023 Past Medical History: Diagnosis Date Abnormal Pap smear of cervix 2009 Contraception management Current mild episode of major depressive disorder without prior episode (HCC) ([facility]) Degenerative joint disease of spine Encounter for IUD removal History of abnormal cervical Pap smear LGS[facility] Pap smear of vagina 2012 Overweight (BMI 25.0-29.9) SVT (supraventricular tachycardia) ([facility]) Torn meniscus HISTORY PAST MEDICAL HISTORY SOCIAL HISTORY Past Medical History: Diagnosis Date Abnormal Pap smear of cervix 2009 Contraception management Current mild episode of major depressive disorder without prior episode (HCC) ([facility]) 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 Artis needs to stop with preg. Cat. C LGSIL Pap smear of vagina 2012 Overweight (BMI 25.0-29.9) SVT (supraventricular tachycardia) ([facility]) Torn meniscus Social History Tobacco Use Smoking [...] abnormal pap smear PAP SMEAR 03/07/2014 [facility] Drug Therapy -SVT TONSILLECTOMY 1992 [...] nursing note reviewed. Exam conducted with a platform supervisor present. Vitals: Estimated body mass index is [...] Orlin Castro DO documented in this encounter [facility] 06-16-2024 History of Present illness Narrative Reason for Appointment: Patient ID: Roxanne Marshall is a 33 y.o. female who [...] for wellness examination in adult 09/01/2023 Depression ([facility]) 09/01/2023 Resolved Ambulatory Problems Diagnosis Date Noted Major depressive disorder, single episode, mild (HCC) ([facility]) 09/01/2023 Past Medical History: Diagnosis Date Abnormal [...] abnormal pap smear PAP SMEAR 03/07/2014 [facility]ICATION MANAGEMENT Drug Therapy -SVT TONSILLECTOMY 1992 [...] nursing note reviewed. Exam conducted with a platform supervisor present. Vitals: Estimated body mass index is [...] Antepartum multigravida of advanced maternal age O09.529 OB follow up transabdominal approach Patient presents [...] Ximena Carver NP documented in this encounter [facility] 04-07-2024 History of Present illness Narrative Reason for Appointment: Patient ID: Roxanne Marshall is a 33 y.o. female who [...] major depressive disorder without prior episode (HCC) ([facility]) Degenerative joint disease of spine Encounter for [...] 2012 Overweight (BMI 25.0-29.9) SVT (supraventricular tachycardia) ([facility]) Torn meniscus Social History Tobacco Use Smoking [...] abnormal pap smear PAP SMEAR 03/07/2014 [facility]ICATION MANAGEMENT Drug Therapy -SVT TONSILLECTOMY 1992 [...] of: GISELLE Cramer documented in this encounter [facility] 03-10-2024 History of Present illness Narrative Reason for Appointment: Patient ID: Roxanne Marshall is a 33 y.o. female who [...] Diagnosis Date Noted Insomnia 02/27/2023 Supraventricular tachycardia ([facility]) 12/09/2019 Left wrist pain 05/03/2023 Obesity (BMI 30-39.9) 05/26/2023 Encounter for wellness examination in adult 09/01/2023 Depression ([facility]) 09/01/2023 Resolved Ambulatory Problems Diagnosis Date Noted Major depressive disorder, single episode, mild (HCC) ([facility]) 09/01/2023 Past Medical History: Diagnosis Date Abnormal Pap smear of cervix 2009 Contraception management Current mild episode of major depressive disorder without prior episode (HCC) ([facility]) Degenerative joint disease of spine Encounter for IUD removal History of abnormal cervical Pap smear LGSIL Pap smear of vagina 2012 Overweight (BMI 25.0-29.9) SVT (supraventricular tachycardia) ([facility]) Torn meniscus HISTORY PAST MEDICAL HISTORY SOCIAL HISTORY Past Medical History: Diagnosis Date Abnormal Pap smear of cervix 2009 Contraception management Current mild episode of major depressive disorder without prior episode (HCC) ([facility]) 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 Artis needs to stop with preg. Cat. C LGSIL Pap smear of vagina 2012 Overweight (BMI 25.0-29.9) SVT (supraventricular tachycardia) ([facility]) Torn meniscus Social History Tobacco Use Smoking [...] abnormal pap smear PAP SMEAR 03/07/2014 [facility]ICATION [facility]NAGEMENT Drug Therapy -SVT TONSILLECTOMY 1992 [...] nursing note reviewed. Exam conducted with a platform supervisor present. Vitals: Estimated body mass index is [...] or undercooked meat, and stay away from [facility]. Patient has been consulted regarding any [...] Orlin Castro DO documented in this encounter [facility] 02-11-2024 History of Present illness Narrative Reason for Appointment: Patient ID: Roxanne Marshall is a 33 y.o. female who [...] abnormal pap smear PAP SMEAR 03/07/2014 [facility] Drug Therapy -SVT TONSILLECTOMY 1992 [...] or undercooked meat, and stay away from [facility]. Patient has also been advised to not change litter boxes and eat 6 small meals a day. Patient has been consulted regarding the do's and don'ts of . Patient was given labs and all questions and concerns were answered. Patient was given [place] to have completed at 10 weeks. Follow Up: Patient is to return in 4 weeks for routine OB appointment. Follow Up: Patient is to have labs drawn at directed and return to office for initial OB appointment with provider. Patient may call office as needed with any concerns or questions. Nurse Visit Completed by: Lynnette Stapleton LPN documented in this encounter [facility] 12-10-2023 History of Present illness Narrative Reason for Appointment: Patient ID: Roxanne Marshall is a 33 y.o. female who [...] abnormal pap smear PAP SMEAR 03/07/2014 [facility] Drug Therapy -SVT TONSILLECTOMY 1992 [...] nursing note reviewed. Exam conducted with a platform supervisor present. Vitals: Estimated body mass index is [...] Evaluation note No assessment inform ation available [facility] Work Phone: Evaluation note Diagnosis Primary insomnia- [...] diabetes mellitus SGA (small for gestational age) [id number] without mention of malnutrition, unspecified (weight) documented [...] obstetric disorders [facility] Primary insomnia- Primary Persistent disorder of initiating or maintaining sleep Obesity (BMI 30-39.9) Encounter for wellness examination in adult- Primary Major depressive disorder, single episode, mild (HCC) (CMS/HCC) Major depressive disorder, single episode, mild Primary insomnia Persistent disorder of initiating or maintaining sleep Obesity (BMI 30-39.9) Depression, unspecified depression type (CMS/HCC) 32 weeks gestation of Third trimester state, incidental documented in this encounter [facility] Summary [...] CREATED AUTHOR AUTHOR'S ORGANIZ ATION 03/06/2024 [facility] DATE CREATED AUTHOR AUTHOR'S ORGANIZ ATION 08/07/2024 [facility] Care Teams (unrecognized sec tion and content) Team Status: Active Member Role Status Dates Dar Brody MD Primary Care Provider Active Team Status: Inactive Member Role Status Dates Dar Brody MD Primary Care Provider Active Start: June 30, 2023 End: June 30, 2023 Orlin Castro Attending Provider Active Start: Viky brewer 2023 End: June 30, 2023 Supervisor Edging Relationship Specialty Start Date End Date Parag Bradley MD [address] [place] [address] PCP - General Family Medicine 08/14/22 Анна Ha NP [address] [place] [address] [facility] 08/25/23 Supervisor Edging Relationship Specialty Start Date End Date Parag Bradley MD [address] [place] [address] PCP - [facility] 08/14/22 Анна Ha NP [address] [place] [address] PCP - [facility] 08/25/23 Supervisor Edging Relationship Specialty Start Date End Date Parag Bradley MD [address] [place] [address] PCP - [facility] 08/14/22 Анна Ha NP [address] [place] [address] [facility] 08/25/23 Supervisor Edging Relationship Specialty Start Date End Date Parag Bradley MD [address] [place] [address] PCP - [facility] 08/14/22 Анна Ha NP [address] [place] [address] [facility] 08/25/23 Supervisor Edging Relationship Specialty Start Date End Date Parag Bradley MD [address] [place] [address] PCP [facility] 08/14/22 Анна Ha NP [address] [place] [address] [facility] 08/25/23 Supervisor Edging Relationship Specialty Start Date End Date Parag Bradley MD [address] [place] [address] PCP [facility] 08/14/22 Анна Ha NP [address] [place] [address] [facility] 08/25/23 Team Status: Inactive Member Role Status Dates Orlin Castro DO Attending Provider Active Start : February 27, 2024 End: February 27, 2024 Supervisor Edging Relationship Specialty Start Date End Date Parag Bradley MD [address] [place] [address] PCP [facility] 08/14/22 Анна Ha NP [address] [place] [address] [facility] 08/25/23 Supervisor Edging Relationship Specialty Start Date End Date Parag Bradley MD [address] [place] [address] PCP - [facility] 08/14/22 Анна Ha NP [address] [place] [address] [facility] 08/25/23 Supervisor Edging Relationship Specialty Start Date End Date Parag Bradley MD [address] [place] [address] [facility] 08/14/22 Анна Ha NP [address] [place] [address] [facility] 08/25/23 Supervisor Edging Relationship Specialty Start Date End Date Parag Bradley MD [address] [place] [address] PCP [facility] 08/14/22 Анна Ha NP [address] [place] [address] [facility] 08/25/23 Supervisor Edging Relationship Specialty Start Date End Date Parag Bradley MD [address] [place] [address] PCP - General Family Medicine 08/14/22 Анна Ha NP [address] [place] [address] PCP - [facility] 08/25/23 Goals (unrecognized section and content) Goals [...] BE BASED ON THE PRIMARY CLINICAL RECORDS. [employer] [facility]. provides no warranty or guarantee of the accuracy or completeness of information in this document.
--- OUTSIDE RECORDS SUMMARY | 2024-08-07 20:35 | XMS_ITS | Clinical Summary ---
Author Organization [facility] Address [address] [place] [address] Care Team Providers Care Dust Collector Name Role Phone Parag Bradley MD Primary Care Provider [phone] Анна Ha NP Unavailable [phone] Allergies Active Allergy Reactions Criticality Noted [...] DR capsuleIndicati ons:Heartburn during in second trimester ([facility]) Take 1 capsule (20 mg) by mouth [...] Major depressive disorder, s chay episode, mild 09/01/2023 09/01/2023 Encounters Date Type Department Care Team Description 08/06/2024 Patient Outreach [facility] [address] [place] [address] Vidya Oliva LPN 08/04/2024 2:20 PM EDT Routine [facility] OB [address] [place] [address] Orlin Castro DO 32 weeks gestation of ([facility]); Third trimester ([facility]) 08/04/2024 Abstract [facility] FM [address] [place] [phone] Анна Ha NP 08/04/2024 Clinisync Result Encounter [facility] External Department Unsolicited Provider, Generic External Data 08/03/2024 Travel 07/28/2024 Clinisync Result Encounter [facility]OMS External Department Unsolicited Provider, Generic External Data 07/26/2024 Abstract [facility] OB [address] [place] [address] Orlin Castro DO 07/23/2024 Clinisync Result Encounter NOMS External Department Unsolicited Provider, Generic External Data 07/21/2024 2:20 PM EDT Routine NOM[facility] [address] [place] [address] Vidya Jackson PA Third trimester ([facility]); 30 weeks gestation of ([facility]); History of gestational diabetes 07/21/2024 Telephone [facility] [place] [address] [facility] [place] [address] Lizzy Wood MA 07/17/2024 Clinisync Result Encounter NOMS External Department Unsolicited Provider, Generic External Data 07/14/2024 Travel 07/08/[address] [address] [place] [address] Leesa Coon MA 07/07/2024 Patient Outreach [facility] [address] [place] [address] Vidya Oliva LPN 07/06/2024 1:50 PM EDT Routine [facility] [place] [address] [place] [address] Orlin Castro DO Third trimester ([facility]); 28 weeks gestation of ([facility]); Elevated glucose tolerance test; Diabetes mellitus screening; SGA (small for gestational age) ([facility]) 07/06/2024 1:30 PM EDT Ancillary Procedure [facility] [place] [address] [place] [address] Antepartum multigravida of advanced maternal age ([facility]) 07/05/2024 Clinisync Result Encounter NOMS External Department Unsolicited Provider, Generic External Data 06/16/2024 1:20 PM EDT Routine NOM[facility] [address] [place] [address] Ximena Carver NP Second trimester ([facility]); 25 weeks gestation of ([facility]); Screen for STD (sexually transmitted disease); Diabetes mellitus screening; Antepartum multigravida of advanced maternal age ([facility]) 06/16/2024 External Result Encounter [facility]OMS External Department Unsolicited Orlin Castro DO 06/16/2024 Bamboo flowsheet [facility] OB [address] [place] [address] [place] [address] Ximena Carevr NP 06/15/2024 Travel 06/08/2024 Patient Outreach [facility] [address] [place] [address] Vidya Oliva LPN 06/03/2024 Travel 05/10/2024 2:40 PM EDT Routine NOM[facility] [address] [place] [address] Orlin Castro DO Second trimester ([facility]); 20 weeks gestation of ([facility]); Heartburn during in second trimester ([facility]) 05/10/2024 1:30 PM EDT Ancillary Procedure NOM[facility] [address] [place] [address] Screening, , for anatomic survey ([facility]) from Last 3 Months Immunizations Immunization Administration [...] Recorded Patient Health Questionnaire-2 Score 0 08/06/2024 [facility] Answer Date [...] Pressure 120/76 08/04/2024 2:31 PM EDT Pulse 97 09/01/2023 10:37 AM EDT Temperature 37.1 C (98.8 F) 09/01/2023 10:37 AM EDT Respiratory Rate 18 09/01/2023 10:37 AM EDT Oxygen Saturation 97% 09/01/2023 10:37 AM EDT Inhaled Oxygen Concentration - - Weight 79.1 kg (174 lb 6.4 oz) 08/04/2024 2:31 P M EDT Height 154.9 cm (5' 1 ) 09/01/2023 10:37 AM EDT Body Mass Index 32.95 09/01/2023 10:37 AM EDT Plan of Treatment Upcoming Encounters Date Type Department Care Team (Late st Contact Info) Description 08/18/2024 9:30 AM EDT Routine [facility] B[facility] OB [address] [place] [address] [place] [phone] Ximena Carver, POKER MACHINE ATTENDANT [address] [place] [phone] 09/07/2024 1:00 PM EDT Office Visit [facility] [address] [place] [address] Анна Ha, VÍCTOR [address] [place] [address] 12/15/2024 3:00 PM EDT Office Visit [facility] OB [address] [address] Orlin Castro DO [address] [place], [place] [phone] Health Maintenance Due Date Last Done Comments Cervical Cancer Screening 12/09/2028 HPV/Cotest 12/09/2028 Pap Smear 12/09/2028 12/10/2023, 11/25/2022 Influenza Vaccine Discontinued 12/08/2017 Goals Goal Patient Goal Type Associated Problems Recent Progress Patient-Stated? Author Reminders Care Plan OB Reminders No Open Scheduling, Background Procedures Procedure Name Priority Date/Time Associated Diagnosis Comments POCT URINALYSIS DIPSTICK Routine 08/04/2024 2:36 PM EDT 32 weeks gestation of ([facility]) Third trimester ([facility]) OB BPP W NON-STRESS 08/04/2024 11:43 AM EDT US OB GROWTH 07/28/2024 10:48 AM EDT GLUCOSE TOLERANCE 3 HOUR Routine 07/23/2024 9:09 AM EDT GLUCOSE 1 HOUR Routine 07/17/2024 9:48 AM EDT POCT URINALYSIS DIPSTICK Routine 07/06/2024 2:18 PM EDT Third trimester ([facility]) US OB FOLLOW UP TRANSABDOMINAL APPROACH Routine 07/06/2024 2:04 PM EDT Antepartum multigravida of advanced maternal age ([facility]) GLUCOSE 1 HOUR Routine 07/05/2024 10:48 AM EDT ALL CBC WITH AUTO DIFF Routine 10:48 AM EDT RECURRENT VAGINITIS (HTRX) Routine 06/16/2024 2:27 PM EDT POCT URINALYSIS DIPSTICK Routine 06/16/2024 1:50 PM EDT Second trimester ([facility]) US OB 14+ WEEKS ANATOMY SCAN Routine 05/10/2024 2:35 PM EDT Screening, , for anatomic survey ([facility]) PAP SMEAR Routine 12/10/2023 12:00 AM EDT from Last 3 Months or Most Recently Relevant to Health Maintenance Results * (ABNORMAL) POCT urinalysis dipstick manually resulted (08/04/2024 2:36 PM EDT) Only the most recent of3 resultswithin the time period is included. Color, UA Yellow Clarity, UA Clear Glucose, UA Negative Negative - 1999(110) ++++ mg/dL Bilirubin, UA Negative Negative - [...] - Positive Urine 08/04/2024 2:36 PM EDT us Orlin Castro DO POINT OF CARE TEST ENTER/EDIT OR DERABLES Final Result * US OB BPP W NON-STRESS (08/04/2024 11:43 AM EDT) Anatomical Region Laterality Modality Other 08/04/2024 11:4 3 AM EDT Narrative 08/04/2024 11:[place] [address] Ultrasound Report Signed Patient: ROXANNE MARSHALL MR#: [id number] : 1990 Acct:[id number] Age/Sex: 33 / F ADM Date: 08/04/24 Loc: [facility] 250-[address]: Vidya Jackson Ordering Physician: Vidya Jackosn Date of Service: 08/04/24 Procedure(s): US OB BPP w non-stress Accession Number(s): [id number] cc: Анна Ha POKER MACHINE ATTENDANT; Vidya Jackson [address] [place] [address] Patient Name: ROXANNE MARSHALL MRN: [id number] date: 1990 Sex: F Assigned Patient Location: [facility] Current Patient Location: [facility] Accession/Order Number: [id number] Exam Date: 08/04/2024 11:42 Report Date: 08/04/2024 [...] Auguste M.D. 08/04/2024 11:43 AM Dictation Location: [place] [address] Electronically authenticated by: [id number] Y Date: 08/04/2024 11:43 Dictated By: Isatu Auguste M.D. Signed By: 08/04/24 1146 DD/ 1143 TD/TT: Soil Science Technical Officer: Procedure Note Radiology, Radiologist, - 08/04/2024 [place] [address] Ultrasound Report Signed Patient: ROXANNE MARSHALL DMR#: [id number] : 1990Acct:[id number] Age/Sex: 33 / FADM Date: 08/04/24 Loc: [facility] 250-[address]: Vidya Jackson Ordering Physician: Vidya Jackson Date of Service: 08/04/24 Procedure(s): US OB BPP w non-stress Accession Number(s): [id number] cc: Анна Ha NP; Vidya Jackson [address] [place] [address] Patient Name: ROXANNE MARSHALL MRN: [facility]:[id number] date: 1990 Sex: F Assigned Patient Location: [facility] Current Patient Location: [facility] Accession/Order Number: [id number] Exam Date: 08/04/2024 11:42 Report Date: 08/04/2024 [...] Auguste M.D. 08/04/2024 11:43 AM Dictation Location: [place] [address] Electronically authenticated by: [id number] Y Date: 1:43 Dictated By: Isatu Auguste M.D. Signed By:08/04/24 1146 DD/ 1143 TD/TT: Soil Science Technical Officer: us Generic External Data Provider [facility] Final Result * US OB GROWTH (07/28/2024 10:48 AM EDT) Anatomical Region Laterality Modality Other 07/28/2024 10:4 8 AM EDT Narrative 07/28/2024 10:51 [place] [address] Ultrasound Report Signed Patient: ROXANNE MARSHALL MR#: [id number] : 1990 Acct:[id number] Age/Sex: 33 / F ADM Date: 07/28/24 Loc: US Attending Dr: Orlin Castro D.O. Ordering Physician: Orlin Castro D.O. Date of Service: 07/28/24 Procedure(s): US OB growth Accession Number(s): [id number] cc: Анна Ha POKER MACHINE ATTENDANT; Orlin Castro D.O. The [place] [id number] Patient Name: ROXANNE MARSHALL MRN: [facility]:[id number] date: 1990 Sex: F Assigned Patient Location: Current Patient Location: Accession/Order Number: [id number] Exam Date: 07/28/2024 10:44 Report Date: 07/28/2024 [...] Auguste M.D. 07/28/2024 10:48 AM Dictation Location: [place] [address] Electronically authenticated by: [id number] Y Date: 07/28/2024 10:48 Dictated By: Isatu Auguste M.D. Signed By: 07/28/24 1051 DD/ 1048 TD/TT: Soil Science Technical Officer: Procedure Note Radiology, Radiologist, MD - 07/28/2024 [place] [address] Ultrasound Report Signed Patient: ROXANNE MARSHALL [facility]#: [id number] : 1990Acct:[id number] Age/Sex: 33 / FADM Date: 07/28/24 Loc: US Attending Dr: Orlin Castro D.O. Ordering Physician: Orlin Castro D.O. Date of Service: 07/28/24 Procedure(s): US OB growth Accession Number(s): [id number] cc: Анна Ha NP; Orlin Castro D.O. [place] [id number] Patient Name: ROXANNE MARSHALL MRN: [id number] date: 1990 Sex: F Assigned Patient Location: US Current Patient Location: US Accession/Order Number: [id number] Exam Date: 07/28/2024 10:44 Report Date: 07/28/2024 [...] Auguste M.D. 07/28/2024 10:48 AM Dictation Location: [place] [address] Electronically authenticated by: [id number] Y Date: 0:48 Dictated By: Isatu Auguste M.D. Signed By:07/28/24 1051 DD/ 1048 TD/TT: Soil Science Technical Officer: us [facility] External Data Provider [facility] Final Result * (ABNORMAL) GLUCOSE TOLERANCE 3 HOUR (07/23/2024 9:09 AM EDT) GLUCOSE TOLERANCE 3 HOUR (H) mg/dL [facility] Comment: GLU FAST 97H (<95) Col: 07/23/24 0909 GLU 1HR 151 (<180) Col: 07/23/24 1013 GLU 2HR 151 (<155) Col: 07/23/24 1113 GLU 3HR 123 (<140) Col: 07/23/24 1213 07/23/2024 9:09 AM EDT 07/23/2024 9:14 AM EDT Narrative [facility] - 07/23/2024 12:46 PM EDT us Orlin Gloria DO LAB BLOOD ORDERABLES Final Resul t Performing Organization Address [facility] Co de Phone Number [facility] * (ABNORMAL) GLUCOSE 1 HOUR (07/17/2024 9:48 AM EDT) Only the most recent of2 resultswithin the time period is included. GLUCOSE 1 HOUR 162(H) <130 mg/dL [facility] 07/17/2024 9:48 AM EDT 07/17/2024 9:49 AM EDT Narrative [facility] - 07/17/2024 10:52 AM EDT us Orlin Gloria DO LAB BLOOD ORDERABLES Final Resul t Performing Organization Address [facility] Co de Phone Number [facility] TB * US OB follow up transabdominal approach [...] II, MD, PHD at 07-Jul-2024 10:00:26 AM [facility] Procedure Note Tabitha Campbell MD - [...] signed by TABITHA CAMPBELL II, MD, PHD [id number] 10:00:26 AM [facility] us Orlin Gloria DO IM OB [...] EDT Ximena Nolenryley RENEE [facility] Final Result [facility] * RECURRENT VAGINITIS (HTRX) (06/16/2024 2:27 PM EDT) [facility] ATOPOBIUM VAGINAE 0.000 19.961 - 24.689 ppm 06/17/2024 8:02 AM EDT [facility] ATOPOBIUM VAGINAE Not Detected 19.961 - 24.689 ppm 06/17/2024 8:02 AM EDT [facility] BVAB 2,3 (BACTERIAL VAGINOSIS ASSOCIATED BACTERIA 2, 3); MOBILUNCUS SPP 0.000 19.961 - 24.689 ppm 06/17/2024 8:02 AM EDT [facility] BVAB 2,3 (BACTERIAL VAGINOSIS ASSOCIATED BACTERIA 2, 3); MOBILUNCUS SPP Not Detected 19.961 - 24.689 ppm 06/17/2024 8:02 AM EDT [facility] RANJANA ALBICANS, PARAPSILOSIS, TROPICALIS 0.000 19.961 - 30.770 ppm 06/17/2024 8:02 AM EDT [facility] RANJANA ALBICANS, PARAPSILOSIS, TROPICALIS Not Detected 19.961 - 30.770 ppm 06/17/2024 8:02 AM EDT [facility] RANJANA GLABRATA 0.000 23.000 - 32.138 ppm 06/17/2024 8:02 AM EDT [facility] RANJANA GLABRATA Not Detected 23.000 - 32.138 ppm 06/17/2024 8:02 AM EDT [facility] RANJANA KRUSEI 0.000 23.000 - 32.271 ppm 06/17/2024 8:02 AM EDT [facility] RANJANA KRUSEI Not Detected 23.000 - 32.271 ppm 06/17/2024 8:02 AM EDT [facility] [place] CHLAMYDIA TRACHOMATIS 0.000 23.000 - 31.467 ppm 06/17/2024 8:02 AM EDT [facility] [place] CHLAMYDIA TRACHOMATIS Not Detected 23.000 - 31.467 ppm 06/17/2024 8:02 AM EDT [facility] [place] GARDNERELLA VAGINALIS 0.000 19.961 - 24.689 ppm 06/17/2024 8:02 AM EDT [facility] [place] GARDNERELLA VAGINALIS Not Detected 19.961 - 24.689 ppm 06/17/2024 8:02 AM EDT [facility] [place] MEGASPHAERA (TYPES 1, 2) 0.000 19.961 - 24.689 ppm 06/17/2024 8:02 AM EDT [facility] [place] MEGASPHAERA (TYPES 1, 2) Not Detected 19.961 - 24.689 ppm 06/17/2024 8:02 AM EDT [facility] [place] NEISSERIA GONORRHOEAE 0.000 23.000 - 32.117 ppm 06/17/2024 8:03 AM EDT [facility] [place] NEISSERIA GONORRHOEAE Not Detected 23.000 - 32.117 ppm 06/17/2024 8:03 AM EDT [facility] [place] TRICHOMONAS VAGINALIS 0.000 23.000 - 32.119 ppm 06/17/2024 8:02 AM EDT [facility] [place] TRICHOMONAS VAGINALIS Not Detected 23.000 - 32.119 ppm 06/17/2024 8:02 AM EDT [facility] [place] MYCOPLASMA GENITALIUM 0.000 19.961 - 24.689 ppm 06/17/2024 8:02 AM EDT [facility] [place] MYCOPLASMA GENITALIUM Not Detected 19.961 - 24.689 ppm 06/17/2024 8:02 AM EDT [facility] Tissue 06/16/2024 2:27 PM EDT 06/17/2024 1:54 AM EDT us Orlin Castro DO LAB BLOOD ORDERABLES Final Resul t [facility] [place] Rajinder Mccarthy LenaUMAIR [address] * US OB 14+ weeks anatomy scan [...] II, MD, PHD at 11-May-2024 12:36:27 AM [facility] Procedure Note Tabitha Campbell MD - [...] CAMPBELL II, MD, PHDat 11-May-2024 12:36:27 AM [facility] us Vidya DESAI IMG OB US [...] 02/11/2024 Insurance [employer] Care Teams Dust Collector Relationship Specialty Start Date End Date Parag Bradley MD [address] [place] [phone] PCP - General Family Medicine 08/14/22 Анна Ha NP [address] [place] [address] PCP - [facility] 08/25/23
--- OUTSIDE RECORDS SUMMARY | 2024-08-07 20:35 | XMS_ITS | Referral Summary ---
Author Organization [facility] Address [address] [place] [address] Care Team Providers Care Police Liaison Name Role Phone Unavailable Primary Care Provider [...]
--- OUTSIDE RECORDS SUMMARY | 2024-08-07 20:35 | XMS_ITS | Encounter Summary ---
Author Organization [facility] Address [address] [place] [address] Care Team Providers Care Oriental Medicine Practitioner Name Role Phone Parag Bradley MD Primary Care Provider [phone] Анна Ha NP Unavailable [phone] Encounter Details Date Type Department Care [...] often do you attend chur ch or mosque services? More than 4 times per year 05/19/2023 Do you belong to any clubs o r organizations such as mormon groups, unions, fraternal or athletic groups, or [...] Recorded Patient Health Questionnaire-2 Score 1 09/01/2023 [facility] of Occupat ional [facility] [...] 9:30 AM EDT Routine [facility] [address] [place] [address] [place] [phone] Ximena Carver NP [address] [place] [address] [place] [address] 09/07/2024 1:00 PM EDT Office Visit [facility] [address] [place] [address] Анна Ha NP [address] [place] [address] 12/15/2024 3:00 PM EDT Office Visit [facility] [address] [place] [phone] Orlin Castro DO [address] [facility] [address] [place], [place] [id number] documented as of this encounter Goals Goal [...] AM EST Narrative 02/12/2024 4:31 [place] [address] Ultrasound Report Signed Patient: ROXANNE MARSHALL MR#: [id number] : 1990 Acct:[id number] Age/Sex: 33 / F ADM Date: 02/11/24 Loc: [facility] Attending Dr: Orlin Castro D.O. Ordering Physician: Orlin Castro D.O. Date of Service: 02/11/24 Procedure(s): US OB transvaginal Accession Number(s): [id number] cc: Анна Ha STUDENT NURSE; Orlin Castro D.O. [place] [id number] Patient Name: ROXANNE MARSHALL MRN: [id number] date: 1990 Sex: F Assigned Patient Location: [facility] Current Patient Location: Accession/Order Number: [id number] Exam Date: 02/11/2024 09:39 Report Date: 02/12/2024 [...] Signed By: 02/12/24 0431 DD/ 0429 TD/TT: Milieu Technician: Procedure Note Radiology, Radiologist, - 02/12/2024 [place] [address] Ultrasound Report Signed Patient: ROXANNE MARSHALL DMR#: [id number] : 1990Acct:[id number] Age/Sex: 33 / FADM Date: 02/11/24 Loc: [facility] Attending Dr: Orlin Castro D.O. Ordering Physician: Orlin Castro D.O. Date of Service: 02/11/24 Procedure(s): US OB transvaginal Accession Number(s): [id number] cc: Анна Ha STUDENT NURSE; Orlin Castro D.O. The [place] [address] Patient Name: ROXANNE MARSHALL MRN: [id number] date: 1990 Sex: F Assigned Patient Location: [facility] Current Patient Location: Accession/Order Number: [id number] Exam Date: 02/11/2024 09:39 Report Date: 02/12/2024 [...] M.D. Signed By:02/12/24 0431 DD/ 0429 TD/TT: Milieu Technician: us Generic External Data Provider [facility] Final Result documented in this encounter Visit Diagnoses Not on filedocumented in this encounter Additional Health Concerns Active Problems Noted Date Diagnosed Date OB Reminders 02/11/2024 documented as of this encounter Care Teams Oriental Medicine Practitioner Relationship Specialty Start Date End Date Parag Bradley MD [address] [place] [address] PCP - General Family Medicine 08/14/22 Анна Ha NP [address] [place] [address] PCP - [facility] 08/25/23 documented as of this encounter
--- OUTSIDE RECORDS SUMMARY | 2024-08-07 20:35 | XMS_ITS | Encounter Summary ---
Author Organization [facility] Address [address] [place] [address] Care Team Providers Care Railroad Inspector Name Role Phone Parag Bradley MD Primary Care Provider [phone] Анна Ha NP Unavailable [phone] Encounter Details Date Type Department Care Team (Late st Contact Info) Description 03/04/2024 Abstract [facility] OB [address] [place] [address] Slava Castro, DO [address] [place], [facility] Social History Tobacco Use Types Packs/Day Years [...] any clubs o r organizations such as mandaen groups, unions, fraternal or athletic groups, or [...] Recorded Patient Health Questionnaire-2 Score 1 09/01/2023 [facility] of Occupat ional [facility] - Occupational Stress Questionnaire Answer Date Recorded [...] place to sleep or slept in a skilled nursing (including now)? No 05/19/2023 Estimated Date of [...] Description 08/18/2024 9:30 AM EDT Routine [facility] OB [address] [place] [address] [place] [phone] Ximena Carver NP [address] [place] [address] [place] [address] 09/07/2024 1:00 PM EDT [facility] [address] [place] [address] Анна Ha NP [address] [place] [address] 12/15/2024 3:00 PM EDT Office Visit [facility] OB [address] [place] [address] [place] [phone] Slava Castro DO [address] [facility] [address] [place], [place] [address] documented as of this encounter Goals Goal Patient Goal Type Associated Problems Recent Progress Patient-Stated? Author Reminders Care Plan OB Reminders No Open Scheduling, Background documented as of this encounter Visit Diagnoses Not on filedocumented in this encounter Additional Health Concerns Active Problems Noted Date Diagnosed Date OB Reminders 02/11/2024 documented as of this encounter Care Teams Railroad Inspector Relationship Specialty Start Date End Date Parag Bradley MD [address] [place] [phone] PCP - General Family Medicine 08/14/22 Анна Ha NP [address] [place] [address] PCP - [facility] 08/25/23 documented as of this encounter
--- OUTSIDE RECORDS SUMMARY | 2024-08-07 20:35 | XMS_ITS | Clinical Summary ---
Author Organization [facility] Address [address] [place] [address] Care Team Providers Care Targeting Acquisition Officer Name Role Phone Unavailable Primary Care Provider [...]
[2024-08-07 21:00] VITALS: TEMP 36.6
[2024-08-07 21:01] VITALS: BP 131/73; PULSE 69
== END 2024-08-07 21:25 | disposition home or self-care (01) ==
LOC: FBCO 20:33 → FBC 20:57
PROVIDERS: PCP Nurse Practitioner; Visit Provider Obstetrics & Gynecology
DX: O09.523 Supervision of elderly multigravida, third trimester (principal); Z3A.33 33 weeks gestation of pregnancy
CPT/HCPCS: 59025

== ENCOUNTER 2024-08-11 11:08 | Outpatient (OUT) | payer OTHER, SELFPAY ==
--- NOTE | 2024-08-11 11:11 | US_ITS ---
The [place] [id number] Patient Name: ROXANNE ROGERS MRN: [id number] date: 1990 Sex: F Assigned Patient Location: [facility] Current Patient Location: [facility] Accession/Order Number: [id number] Exam Date: 08/11/2024 12:18 Report Date: 08/11/2024 12:20 At the request of: SHADE JACKSON Procedure: US OB BPP w non-stress BIOPHYSICAL PROFILE: CLINICAL INFORMATION: History of gestational diabetes COMPARISON: 08/04/2024 There is a single live intrauterine gestation in cephalic presentation. The reported gestational age is 33 weeks 5 days. The heart rate measures 147 beats per minute. FINDINGS: TONE: 1 or more episodes of activity extension and flexion of extremity or opening and closing of the hand [Y] 2/2 GROSS BODY MOVEMENTS: 3 or more discrete body or limb movements [Y] 2/2 BREATHING MOVEMENTS: 1 or more episodes of breathing lasting at least 30 seconds [Y] 2/2 LIVE: A single deepest vertical pocket of amniotic fluid greater than 2 cm [Y] 2/2 LIVE: 12.4 cm. This is in low normal range. Total score: 8/8 US/US OB BPP w non-stress IMPRESSION: NORMAL BIOPHYSICAL PROFILE Impression dictated by: Isatu Auguste M.D. 08/11/2024 12:20 PM Dictation Location: [place] [address] Electronically authenticated by: [id number] Y Date: 08/11/2024 12:20
[2024-08-11 11:58] VITALS: BP 116/71; PULSE 105
== END 2024-08-11 12:45 | disposition home or self-care (01) ==
LOC: US 11:08 → FBC 11:10
PROVIDERS: PCP Nurse Practitioner; Visit Provider Physician Assistant
DX: O26.893 Other specified pregnancy related conditions, third trimester (principal); Z86.32 Personal history of gestational diabetes; Z3A.33 33 weeks gestation of pregnancy
CPT/HCPCS: 76818

== ENCOUNTER 2024-08-13 13:43 | Outpatient (OUT) | payer OTHER, SELFPAY ==
[2024-08-13 16:10] VITALS: BP 124/81; PULSE 106
--- NOTE | 2024-08-13 16:38 | US_ITS ---
[place] [address] Patient Name: ROXANNE ROGERS MRN: [id number] date: 1990 Sex: F Assigned Patient Location: [facility] Current Patient Location: Accession/Order Number: [id number] Exam Date: 08/13/2024 17:25 Report Date: 08/13/2024 17:27 At the request of: ORLIN ESCOBAR DO Procedure: US OB BPP w non-stress US OB BPP w non-stress 08/13/2024 4:57 PM SIGNS AND SYMPTOMS: ^12/11/2023 ^repeat PROTOCOL: Transabdominal sonographic imaging of the gravid uterus COMPARISON: 08/11/2024 FINDINGS: heart rate is 178 bpm Amniotic fluid index is 10.87 cm with the deepest vertical pocket measuring 4.2 cm. Estimated gestational age of 34 weeks and 0 days. Biophysical profile: movements: 2/2 tone: 2/2 breathing movements: 2/2 Amniotic fluid volume: 2/2 US/US OB BPP w non-stress IMPRESSION: Biophysical profile score: 8/8 Impression dictated by: Nilo Camacho M.D. 08/13/2024 5:27 PM Dictation Location: [place] Electronically authenticated by: [id number] Y Date: 08/13/2024 17:27
== END 2024-08-13 16:58 | disposition home or self-care (01) ==
LOC: US 13:44 → FBC 16:02
PROVIDERS: PCP Nurse Practitioner; Visit Provider Obstetrics & Gynecology
DX: O09.523 Supervision of elderly multigravida, third trimester (principal); Z3A.34 34 weeks gestation of pregnancy
CPT/HCPCS: 76818

== ENCOUNTER 2024-08-18 10:54 | Outpatient (OUT) | payer OTHER, SELFPAY ==
--- OUTSIDE RECORDS SUMMARY | 2024-04-05 11:45 | XMS_ITS ---
Author Organization [facility] [address] [place] [address] Care Team Providers Care Finished Goods Stock Clerk Name Role Phone Naida Valera Primary Care Provider REASON FOR VISIT EXT Encounters Encounter Location Date Provider Diagnosis [facility] [address] [place] [address] 04/05/2024 Naida Valera Plan Of Treatment Next Appt Details Provider Name:Naida ruff, 11/12/2024 10:30:00 AM, [address] [facility] [place], [address], Progress Notes * ROXANNE ROGERS DDOB: [birth year] (33 yo F)Acc No.[id number]:04/05/2024 Patient: ROXANNE KENNY Provider: Elizabeth Valera DDS :1990 A ge:33 Y S ex:Female Date:04/05/2024 Address:[address] [place], [place] [phone] Subjective: * Chief Complaints: * 1 . EXT. * Medical History: Objective: * Vitals: Assessment: Plan: * Treatment: * Images: * Electronic signature of Harjit Valera DDS on 08/18/2024 at 09:35 AM EDT Sign off status: Pending * Provider: Elizabeth Valera DDS Date: 04/05/2024 Generated for Adam son/Makenzie/Chinyereitting on: 0 08/18/2024 09:35 AM EDT
--- OUTSIDE RECORDS SUMMARY | 2024-04-19 09:00 | XMS_ITS ---
[facility] [address] [place] [address] Care Team Providers Care Supervisor Cook Room Name Role Phone Naida Valera Primary Care Provider REASON FOR VISIT FILLING Encounters Encounter Location Date Provider Diagnosis [facility] [address] [place] [address] 04/19/2024 Naida Valera Plan Of Treatment Next Appt Details Provider Name:Naida ruff, 11/12/2024 10:30:00 AM, [address] [facility] [place], [address], Progress Notes * ROXANNE ROGERS DDOB: [birth year] (33 yo F)Acc No.[id number]:04/19/2024 Patient: ROXANNE KENNY Provider: Elizabeth Valera DDS :1990 A ge:33 Y S ex:Female Date:04/19/2024 Address:[address] [place] [phone] Subjective: * Chief Complaints: * 1 . FILLING. * Medical History: Objective: * Vitals: Assessment: Plan: * Treatment: * Images: * Electronic signature of Harjit Valera DDS on 08/18/2024 at 09:35 AM EDT Sign off status: Pending * Provider: Elizabeth Valera DDS Date: 04/19/2024 Generated for Adam son/Makenzie/Chinyereitting on: 0 08/18/2024 09:35 AM EDT
--- OUTSIDE RECORDS SUMMARY | 2024-08-04 14:20 | XMS_ITS | Encounter Summary ---
Author Organization [facility] Address [address] [place] [address] Care Team Providers Care Manager Mail Name Role Phone Parag Bradley MD Primary Care Provider [phone] Анна Ha NP Unavailable [phone] Reason for Visit * Reason Comments Routine Visit Encounter Details Date Type Department Care Team (Late st Contact Info) Description 08/04/2024 2:20 PM EDT Routine [facility] OB [address] [place] [address] Slava Castro, DO [address] [place], [facility] 32 weeks gestation of ([facility]); Third trimester ([facility]) Social History Tobacco Use Types Packs/Day Years [...] week 05/19/2023 How often do you attend [facility] or synagogue services? More than 4 times per year 05/19/2023 Do you belong to any clubs o r organizations such as uatsdin groups, unions, fraternal or athletic groups, or [...] Recorded Patient Health Questionnaire-2 Score 0 06/08/2024 [facility] - Occupational Stress Questionnaire Answer [...] Sign Reading Time Taken Comments Blood Pressure 120/76 08/04/2024 2:31 PM EDT Pulse - - Temperature - - Respiratory Rate - - Oxygen Saturation - - Inhaled Oxygen Concentration - - Weight 79.1 kg (174 lb 6.4 oz) 08/04/2024 2:31 P M EDT Height - - Body Mass Index 32.95 09/01/2023 10:37 AM EDT documented in this encounter Progress Notes * Isatu Gilbert LPN - 08/04/2024 2:20 PM EDT Reason for Appointment: Patient [...] for wellness examination in adult 09/01/2023 Depression ([facility]) 09/01/2023 Resolved Ambulatory Problems Diagnosis Date Noted Major depressive disorder, single episode, mild (HCC) ([facility]) 09/01/2023 Past Medical History: Diagnosis Date Abnormal Pap smear of cervix 2009 Contraception management Current mild episode of major depressive disorder without prior episode (HCC) ([facility]) Degenerative joint disease of spine Encounter for IUD removal History of abnormal cervical Pap smear LGSIL Pap smear of vagina 2012 Overweight (BMI 25.0-29.9) SVT (supraventricular tachycardia) ([facility]) Torn meniscus HISTORY PAST MEDICAL HISTORY SOCIAL HISTORY Past Medical History: Diagnosis Date Abnormal Pap smear of cervix 2009 Contraception management Current mild episode of major depressive disorder without prior episode (HCC) ([facility]) 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 Artis needs to stop with preg. Cat. C LGSIL Pap smear of vagina 2012 Overweight (BMI 25.0-29.9) SVT (supraventricular tachycardia) ([facility]) Torn meniscus Social History Tobacco [...] abnormal pap smear PAP SMEAR 03/07/2014 LGSIL [place] MEDICATION MANAGEMENT Drug Therapy -SVT TONSILLECTOMY 1992 [...] note reviewed. Exam conducted with a customer service operator present. Vitals: Estimated body mass index is 32.95 kg/m?? as calculated from the following: Height as of 09/01/23: 5' 1 . Weight as of this encounter: 174 lb 6.4 oz. BP: 120/76 Patient's last menstrual period was 12/11/2023. ASSESSMENT & PLAN ICD-10-CM 1. 32 weeks gestation of Z3A.32 POCT urinalysis dipstick manually resulted 2. Third trimester Z34.93 POCT urinalysis dipstick manually resulted Return OB: Patient presents today for a routine obstetrics appointment. Patient is currently 32w5d . Patient states she is doing well but has complaints of being tired due to current . Patient has verbalizes frequent movement. labor precautions was discussed/given and patient was instructed to perform kick counts three times a day. Orders Placed This Encounter Procedures POCT urinalysis dipstick manually resulted Follow Up: Patient is to return to office in 2 week for routine OB appointment. Documented by Isatu Gilbert LPN on behalf of: Slava Castro DO documented in this encounter Plan of Treatment Upcoming Encounters Date Type Department Care Team (Late st Contact Info) Description 09/02/2024 10:40 AM EDT Routine [facility] OB [address] [facility] [place] [address] Slava Castro, DO [address] [facility] [place] [address] 09/07/2024 1:00 PM EDT Office Visit [facility] [address] [place] [address] Анна Ha, CIVIL DESIGNER [address] [place] [address] 12/15/2024 3:00 PM EDT Office Visit [facility] OB [address] [facility] [place] [address] Slava Castro, DO [address] [facility] [place] [address] documented as of this encounter Goals Goal Patient Goal Type Associated Problems Recent Progress Patient-Stated? Author Reminders Care Plan OB Reminders No Open Scheduling, Background documented as of this encounter Procedures Procedure Name Priority Date/Time Associated Diagnosis Comments POCT URINALYSIS DIPSTICK Routine 08/04/2024 2:36 PM EDT 32 weeks gestation of ([facility]) Third trimester ([facility]) documented in this encounter Results * (ABNORMAL) POCT urinalysis dipstick manually resulted (08/04/2024 2:36 PM EDT) Color, UA Yellow Clarity, UA Clear Glucose, UA Negative Negative - 2000(110) ++++ mg/dL Bilirubin, UA Negative Negative - 4(70) +++ mg/dL Ketones, UA Negative Negative - 160(16) ++++ mg/dL Spec Grav, UA 1.010 1 - 1.03 Blood, UA Positive Negative - 50 Richy/mcL Comment:trace-intact pH, UA 7.0 5 - 9 Protein, UA Negative Negative - 1999(20) ++++ mg/dL Urobilinogen, UA 0.2 0.2 - 12 mg/dL Leukocytes, UA Negative Negative - 500+++ Tano/mcL Nitrite, UA Negative Negative - Positive Urine 08/04/2024 2:36 PM EDT Slava Castro DO POINT OF CARE TEST ENTER/EDIT OR DERABLES Final Result documented in this encounter Visit Diagnoses Diagnosis 32 weeks gestation of ([facility]) Third trimester ([facility]) state, incidental documented in this encounter Additional Health Concerns Active Problems Noted Date Diagnosed Date OB Reminders 02/11/2024 documented as of this encounter Care Teams Manager Mail Relationship Specialty Start Date End Date Parag Bradley MD [address] [place] [address] PCP - General Family Medicine 08/14/22 Анна Ha NP [address] [place] [address] PCP - [facility] 08/25/23 documented as of this encounter
--- NOTE | 2024-08-18 | US_ITS ---
The [address] [address] Patient Name: ROXANNE ROGERS MRN: [id number] date: 1990 Sex: F Assigned Patient Location: [facility] Current Patient Location: Accession/Order Number: [id number] Exam Date: 08/18/2024 11:47 Report Date: 08/18/2024 11:48 At the request of: SHADE JACKSON Procedure: US OB BPP w non-stress BIOPHYSICAL PROFILE: CLINICAL INFORMATION: History of gestational diabetes Z86.32 COMPARISON: 08/13/2024 There is a single live intrauterine gestation in cephalic presentation. The reported gestational age is 34 weeks 5 days. The heart rate beats per minute. FINDINGS: TONE: 1 or more episodes of activity extension and flexion of extremity or opening and closing of the hand [Y] 2/2 GROSS BODY MOVEMENTS: 3 or more discrete body or limb movements [Y] 2/2 BREATHING MOVEMENTS: 1 or more episodes of breathing lasting at least 30 seconds [Y] 2/2 LIVE: A single deepest vertical pocket of amniotic fluid greater than 2 cm [Y] 2/2 LIVE: 10.6 cm. This is in low-normal range. Total score: 8/8 US/US OB BPP w non-stress IMPRESSION: NORMAL BIOPHYSICAL PROFILE. Impression dictated by: Isatu Auguste M.D. 08/18/2024 11:48 AM Dictation Location: [place] [address] Electronically authenticated by: [id number] Y Date: 08/18/2024 11:48
--- OUTSIDE RECORDS SUMMARY | 2024-08-18 09:30 | XMS_ITS | Encounter Summary ---
Author Organization [facility] Address [address] [place] [address] Care Team Providers Care Drilling Machine Runner Name Role Phone Parag Bradley MD Primary Care Provider [phone] Анна Ha NP Unavailable [phone] Reason for Visit * Reason Comments Routine Visit Encounter Details Date Type Department Care Team (Late Contact Info) Description 08/18/2024 9:30 AM EDT Routine [facility] [address] [facility] [place] [address] Ximena Carver, TUBE CLEANER [address] [facility] [place] [address] Third trimester ([facility]); 34 weeks gestation of ([facility]) Social History Tobacco Use Types Packs/Day [...] week 05/19/2023 How often do you attend [facility] or spiritism services? More than 4 times per year 05/19/2023 Do you belong to any clubs o r organizations such as anglican groups, unions, fraternal or athletic groups, or [...] Recorded Patient Health Questionnaire-2 Score 0 08/06/2024 [facility] of Occupat ional [facility] - Occupational Stress Questionnaire Answer Date Recorded [...] in a correction (including now)? No 05/19/2023 Estimated Date of [...] abnormal pap smear PAP SMEAR 03/07/2014 [facility] [place] MEDICATION MANAGEMENT Drug Therapy -SVT TONSILLECTOMY 1992 [...] nursing note reviewed. Exam conducted with a dining services director present. Vitals: Estimated body mass index is 33.07 kg/m?? as calculated from the following: Height as of 24: 5' 1 . Weight as of this encounter: 175 lb. BP: 116/82 Patient's last menstrual period was 12/11/2023. ASSESSMENT & PLAN ICD-10-CM 1. Third trimester ([facility]) Z34.93 2. 34 weeks gestation of ([facility]) Z3A.34 Return OB: Patient presents [...] Description 09/02/2024 10:40 AM EDT Routine [facility] OB [address] [facility] [place] [address] Slava Castro, DO [address] [place] [address] [address] [place], [place] [address] 09/07/2024 1:00 PM EDT Office Visit [facility] [address] [place] [address] Анна Ha, VÍCTOR [address] [place] [address] 12/15/2024 3:00 PM EDT Office Visit [facility] OB [address] [facility] [place] [address] Slava Castro, [address] [place], [place] [address] documented as of this encounter Goals Goal Patient Goal Type Associated Problems Recent Progress Patient-Stated? Author Reminders Care Plan OB Reminders No Open Scheduling, Background documented as of this encounter Procedures Procedure Name Priority Date/Time Associated Diagnosis Comments POCT URINALYSIS DIPSTICK Routine 08/18/2024 10:28 AM EDT Third trimester ([facility]) documented in this encounter Results [...] this encounter Visit Diagnoses Diagnosis Third trimester ([facility]) state, incidental 34 weeks gestation of ([facility]) documented in this encounter Additional Health Concerns Active Problems Noted Date Diagnosed Date OB Reminders 02/11/2024 documented as of this encounter Care Teams Drilling Machine Runner Relationship Specialty Start Date End Date Parag Bradley MD [address] [place] [address] PCP - General Family Medicine 08/14/22 Анна Ha NP [address] [place] [address] PCP - [facility] 08/25/23 documented as of this encounter
--- OUTSIDE RECORDS SUMMARY | 2024-08-18 10:56 | XMS_ITS | Encounter Summary ---
Author Organization [facility] Address [address] [place] [address] Care Team Providers Care Asian Studies Program Chair Name Role Phone Parag Bradley MD Primary Care Provider [phone] Анна Ha NP Unavailable [phone] Encounter Details Date Type Department Care [...] often do you attend chur ch or catholic services? More than 4 times per year 05/19/2023 Do you belong to any clubs o r organizations such as restoration groups, unions, fraternal or athletic groups, or [...] Recorded Patient Health Questionnaire-2 Score 0 05/26/2023 [facility] Occupat ional [facility] - Occupational Stress Questionnaire Answer Date [...] a skilled nursing (including now)? No 05/19/2023 Comments Unknown Sex and Gender Information Value Date Recorded Sex Assigned at Not on file Legal Sex Female 7:11 PM EDT Gender Identity Female 05/08/2022 7:11 PM EDT Sexual Orientation Not on file documented as of this encounter Plan of Treatment Upcoming Encounters Date Type Department Care Team (Late st Contact Info) Description 09/02/2024 10:40 AM EDT Routine [facility] OB [address] [place] [address] [place] [address] Orlin Castro, DO [address] [place], [place] [address]Nat[place], [place] [id number] 09/07/2024 1:00 PM EDT Office Visit [facility] [address] [place] [address] Анна Ha, CREOSOTING ENGINEER [address] [place] [address] 12/15/2024 3:00 PM EDT Office Visit [facility] OB [address] [place] [address] Orlin Castro, [address] [place], [place] [address] documented as of this encounter Procedures Procedure Name Priority Date/Time Associated Diagnosis Comments US OB TRANSVAGINAL 06/20/2023 12 :10 PM EDT documented in this encounter Results * US OB TRANSVAGINAL (06/20/2023 12:10 PM EDT) Anatomical Region Laterality Modality Other 06/20/2023 12:1 0 PM EDT Narrative 06/20/2023 12:12 PM EDT The [address] [address] Ultrasound Report Signed Patient: ROXANNE MARSHALL MR#: [id number] : 1990 Acct:[id number] Age/Sex: 32 / F ADM Date: 06/20/23 Loc: [facility] Attending Dr: Orlin Castro D.O. Ordering Physician: Orlin Castro D.O. Date of Service: 06/20/23 Procedure(s): US OB transvaginal Accession Number(s): [id number] cc: Анна Ha NP; Orlin Castro D.O. [place] [address] Patient Name: ROXANNE MARSHALL MRN: [id number] date: 1990 Sex: F Assigned Patient Location: [facility] Current Patient Location: [facility] Accession/Order Number: [id number] Exam Date: 06/20/2023 08:31 Report Date: 06/20/2023 [...] Signed By: 06/20/23 1212 DD/ 1210 TD/TT: Storm Door Maker: Procedure Note Radiology, Radiologist, - 06/20/2023 [place] [address] Ultrasound Report Signed Patient: ROXANNE MARSHALL DMR#: [id number] : 1990Acct:[id number] Age/Sex: 32 / FADM Date: 06/20/23 Loc: [facility] Attending Dr: Orlin Castro D.O. Ordering Physician: Orlin Castro D.O. Date of Service: 06/20/23 Procedure(s): US OB transvaginal Accession Number(s): [id number] cc: Анна Ha CREOSOTING ENGINEER; Orlin Castro D.O. The [place] [id number] Patient Name: ROXANNE MARSHALL MRN: [id number] date: 1990 Sex: F Assigned Patient Location: [facility] Current Patient Location: [facility] Accession/Order Number: [id number] Exam Date: 06/20/2023 08:31 Report Date: 06/20/2023 [...] M.D. Signed By:06/20/23 1212 DD/ 1210 TD/TT: Storm Door Maker: us Generic External Data Provider [facility] Final Result documented in this encounter Visit Diagnoses Not on filedocumented in this encounter Care Teams Asian Studies Program Chair Relationship Specialty Start Date End Date Parag Bradley MD [address] [place] [address] PCP - General Family Medicine 08/14/22 Анна Ha NP [address] [place] [address] PCP - [facility] 08/25/23 documented as of this encounter
--- OUTSIDE RECORDS SUMMARY | 2024-08-18 10:56 | XMS_ITS | Encounter Summary ---
Author Organization [facility] Address [address] [place] [address] Care Team Providers Care Bronc Buster Name Role Phone Parag Bradley MD Primary Care Provider [phone] Анна Ha NP Unavailable Encounter Details Date [...] often do you attend chur ch or adventist services? More than 4 times per year 05/19/2023 Do you belong to any clubs o r organizations such as jewish groups, unions, fraternal or athletic groups, or [...] Recorded Patient Health Questionnaire-2 Score 0 05/26/2023 [facility] Occupat [facility] - Occupational Stress Questionnaire [...] Description 09/02/2024 10:40 AM EDT Routine [facility] OB [address] [place] [address] [place] [address] Orlin Castro, DO [address] [place], [place] [address]Nat[place], [place] [address] 09/07/2024 1:00 PM EDT Office Visit [facility] [address] [place] [address] Анна Ha, CHART CLERK [address] [place] [address] 12/15/2024 3:00 PM EDT Office Visit [facility] OB [address] [place] [address] Orlin Castro, [address] [place], [place] [address] documented as of this encounter Procedures Procedure Name Priority Date/Time Associated Diagnosis Comments US OB TRANSVAGINAL 06/26/2023 10 :14 AM EDT documented in this encounter Results * US OB TRANSVAGINAL (06/26/2023 10:14 AM EDT) Anatomical Region Laterality Modality Other 06/26/2023 10:1 4 AM EDT Narrative 06/26/2023 10:16 AM EDT The [address] [address] Ultrasound Report Signed Patient: ROXANNE MARSHALL MR#: [id number] : 1990 Acct:[id number] Age/Sex: 32 / F ADM Date: 06/26/23 Loc: [facility] Attending Dr: Oriln Castro D.O. Ordering Physician: Orlin Castro D.O. Date of Service: 06/26/23 Procedure(s): US OB transvaginal Accession Number(s): [id number] cc: Анна Ha NP; Orlin Castro D.O. The [address] [id number] Patient Name: ROXANNE MARSHALL MRN: [id number] date: 1990 Sex: F Assigned Patient Location: [facility] Current Patient Location: [facility] Accession/Order Number: [id number] Exam Date: 06/26/2023 09:09 Report Date: 06/26/2023 [...] Signed By: 06/26/23 1016 DD/ 1014 TD/TT: Reo Asset Manager: Procedure Note Radiology, Radiologist, - 06/26/2023 [place] [address] Ultrasound Report Signed Patient: ROXANNE MARSHALL DMR#: [id number] : 1990Acct:[id number] Age/Sex: 32 / FADM Date: 06/26/23 Loc: [facility] Attending Dr: Orlin Castro D.O. Ordering Physician: Orlin Castro D.O. Date of Service: 06/26/23 Procedure(s): US OB transvaginal Accession Number(s): [id number] cc: Анна Ha CHART CLERK; Orlin Castro D.O. [place] [address] Patient Name: ROXANNE MARSHALL MRN: [id number] date: 1990 Sex: F Assigned Patient Location: [facility] Current Patient Location: [facility] Accession/Order Number: [id number] Exam Date: 06/26/2023 09:09 Report Date: 06/26/2023 [...] M.D. Signed By:06/26/23 1016 DD/ 1014 TD/TT: Reo Asset Manager: us Generic External Data Provider [facility] Final Result documented in this encounter Visit Diagnoses Not on filedocumented in this encounter Care Teams Bronc Buster Relationship Specialty Start Date End Date Parag Bradley MD [address] [place] [address] PCP - General Family Medicine 08/14/22 Анна Ha NP [address] [place] [address] PCP - [facility] 08/25/23 documented as of this encounter
--- OUTSIDE RECORDS SUMMARY | 2024-08-18 10:56 | XMS_ITS | Encounter Summary ---
Author Organization [facility] Address [address] [place] [address] Care Team Providers Care Attendant [employer] Store Name Role Phone Parag Bradley MD Primary Care Provider [phone] Анна Ha NP Unavailable [phone] Encounter Details Date Type Department Care Team (Late st Contact Info) Description 06/26/2023 Orders Only [facility] [address] [place] [address] Slava Castro, DO [address] [facility] [place] [address] [place], [place] [phone] Social History Tobacco Use Types Packs/Day Years [...] How often do you attend chur or adventism services? More than 4 times per year [...] Recorded Patient Health Questionnaire-2 Score 0 05/26/2023 [facility] - Occupational Stress Questionnaire Answer [...] in a long-term (including now)? No 05/19/2023 Comments Unknown Sex and Gender Information Value Date Recorded Sex Assigned at Not on file Legal Sex Female 7:11 PM EDT Gender Identity Female 05/08/2022 7:11 PM EDT Sexual Orientation Not on file documented as of this encounter Plan of Treatment Upcoming Encounters Date Type Department Care Team (Late st Contact Info) Description 09/02/2024 10:40 AM EDT Routine N[facility] [address] [place] [address] Slava Castro [address] [place], [place] [address] 09/07/2024 1:00 PM EDT Office Visit [facility] [address] [place] [address] Анна Ha NP [address] [place] [address] 12/15/2024 3:00 PM EDT Office Visit [facility] [address] [place] [address] Slava Castro [address] [place] [address] documented as of this encounter Procedures Procedure [...] on filedocumented in this encounter Care Teams Attendant Self Service Store Relationship Specialty Start Date End Date Parag Bradley MD [address] [place] [address] PCP - General Family Medicine 08/14/22 Анна Ha NP [address] [place] [address] PCP - [facility] 08/25/23 documented as of this encounter
--- OUTSIDE RECORDS SUMMARY | 2024-08-18 10:57 | XMS_ITS | Encounter Summary ---
Author Organization [facility] Address [address] [place] [address] Care Team Providers Care Funeral Home General Manager Name Role Phone Parag Bradley MD Primary Care Provider [phone] Анна Ha NP Unavailable [phone] Encounter Details Date Type Department Care Team (Late st Contact Info) Description 02/11/2024 Abstract [facility] OB [address] [place] [address] Slava Castro, DO [address] [place], [facility] Social History Tobacco Use Types Packs/Day Years [...] Recorded Patient Health Questionnaire-2 Score 1 09/01/2023 [facility] of Occupat ional [facility] - Occupational Stress Questionnaire Answer Date Recorded [...] Description 09/02/2024 10:40 AM EDT Routine [facility] OB [address] [facility] [place] [address] Slava Castro DO [address] [place] [address] Dr [place], [place] [address] 09/07/2024 1:00 PM EDT Office Visit [facility] [address] [place] [address] Анна Ha NP [address] [place] [address] 12/15/2024 3:00 PM EDT Office Visit [facility] OB [address] [facility] [place] [address] Slava Castro, [address] [place] [address] Dr [place], [place] [address] documented as of this encounter Goals Goal Patient Goal Type Associated Problems Recent Progress Patient-Stated? Author Reminders Care Plan OB Reminders No Open Scheduling, Background documented as of this encounter Visit Diagnoses Not on filedocumented in this encounter Additional Health Concerns Active Problems Noted Date Diagnosed Date OB Reminders 02/11/2024 documented as of this encounter Care Teams Funeral Home General Manager Relationship Specialty Start Date End Date Parag Bradley MD [address] [place] [address] PCP - General Family Medicine 08/14/22 Анна Ha NP [address] [place] [address] PCP - [facility] 08/25/23 documented as of this encounter
--- OUTSIDE RECORDS SUMMARY | 2024-08-18 10:57 | XMS_ITS | Encounter Summary ---
Author Organization [facility] Address [address] [place] [address] Care Team Providers Care Consumer Advocate Name Role Phone Parag Bradley MD Primary Care Provider [phone] Анна Ha NP Unavailable [phone] Encounter Details Date Type Department Care Team (Late st Contact Info) Description 08/13/2024 Clinisync Result Encounter [facility] External Department Unsolicited [...] often do you attend chur ch or rastafari services? More than 4 times per year [...] Recorded Patient Health Questionnaire-2 Score 0 08/06/2024 [facility] of Occupat ional [facility] - Occupational Stress Questionnaire [...] Routine [facility] OB [address] [place] [address] [place] [address] Orlin Castro, [facility] [place], [place] [address] 09/07/2024 1:00 PM EDT Office Visit [facility] [address] [place] [address] Анна Ha, EXPERIMENTAL PSYCHOLOGIST [address] [place] [address] 12/15/2024 3:00 PM EDT Office Visit [facility] OB [address] [place], [place] [address] [address] Orlin Castro, [facility] [place], [place] [address] documented as of this encounter Goals Goal Patient Goal Type Associated Problems Recent Progress Patient-Stated? Author Reminders Care Plan OB Reminders No Open Scheduling, Background documented as of this encounter Procedures Procedure Name Priority Date/Time Associated Diagnosis Comments US OB BPP W NON-STRESS 08/13/2024 5:27 PM EDT documented in this encounter Results * US OB BPP W NON-STRESS (08/13/2024 5:27 PM EDT) Anatomical Region Laterality Modality Other 08/13/2024 5:27 PM EDT Narrative 08/13/2024 5:29 PM EDT The [place] [id number] Ultrasound Report Signed Patient: ROXANNE MARSHALL MR#: [id number] : 1990 Acct:[id number] Age/Sex: 33 / F ADM Date: 08/13/24 Loc: US Attending Dr: Orlin Castro D.O. Ordering Physician: Orlin Castro D.O. Date of Service: 08/13/24 Procedure(s): US OB BPP w non-stress Accession Number(s): [id number] cc: Анна Ha NP; Orlin Casrto D.O. The [address] [address] Patient Name: ROXANNE MARSHALL MRN: [id number] date: 1990 Sex: F Assigned Patient Location: [facility] Current Patient Location: Accession/Order Number: [id number] Exam Date: 08/13/2024 17:25 Report Date: 08/13/2024 17:27 At the request of: ORLIN CASTRO DO Procedure: US OB BPP w non-stress US OB BPP w non-stress 08/13/2024 4:57 PM SIGNS AND SYMPTOMS: 12/11/2023 repeat PROTOCOL: Transabdominal sonographic imaging of the gravid uterus COMPARISON: 08/11/2024 FINDINGS: heart rate is 178 bpm Amniotic fluid index is 10.87 cm with the deepest vertical pocket measuring 4.2 cm. Estimated gestational age of 34 weeks and 0 days. Biophysical profile: movements: 2/2 tone: 2/2 breathing movements: 2/2 Amniotic fluid volume: 2/2 US/US OB BPP w non-stress IMPRESSION: Biophysical profile score: 8/8 Impression dictated by: Nilo Camacho M.D. 08/13/2024 5:27 PM Dictation Location: [place] [address] Electronically authenticated by: [id number] Y Date: 08/13/2024 17:27 Dictated By: Nilo Camacho M.D. Signed By: 08/13/241728 DD/ 26 TD/TT: Corduroy Cutter Operator: Procedure Note Radiology, Radiologist, MD - 08/13/2024 [place] [address] Ultrasound Report Signed Patient: ROXANNE MARSHALL DMR#: [id number] : 1990Acct:[id number] Age/Sex: 33 / FADM Date: 08/13/24 Loc: US Attending Dr: Orlin Castro D.O. Ordering Physician: Orlin Castro D.O. Date of Service: 08/13/24 Procedure(s): US OB BPP w non-stress Accession Number(s): [id number] cc: Анна Ha EXPERIMENTAL PSYCHOLOGIST; Orlin Castro D.O. The [place] [address] Patient Name: ROXANNE MARSHALL MRN: [id number] date: 1990 Sex: F Assigned Patient Location: [facility] Current Patient Location: Accession/Order Number: [id number] Exam Date: 08/13/2024 17:25 Report Date: 08/13/2024 17:27 At the request of: ORLIN CASTRO DO Procedure: US OB BPP w non-stress US OB BPP w non-stress 08/13/2024 4:57 PM SIGNS AND SYMPTOMS: 12/11/2023 repeat PROTOCOL: Transabdominal sonographic imaging of the gravid uterus COMPARISON: 08/11/2024 FINDINGS: heart rate is 178 bpm Amniotic fluid index is 10.87 cm with the deepest vertical pocketmeasuring 4.2 cm. Estimated gestational age of 34 weeks and 0 days. Biophysical profile: movements: 2/2 tone: 2/2 breathing movements: 2/2 Amniotic fluid volume: 2/2 US/US OB BPP w non-stress IMPRESSION: Biophysical profile score: 8/8 Impression dictated by: Nilo Camacho M.D. 08/13/2024 5:27 PM Dictation Location: [place] [address] Electronically authenticated by: [id number] Y Date: 7:27 Dictated By: Nilo Camacho M.D. Signed By:08/13/249 DD/ 26 TD/TT: Corduroy Cutter Operator: us Generic External Data Provider [facility] Final Result documented in this encounter Visit Diagnoses Not on filedocumented in this encounter Additional Health Concerns Active Problems Noted Date Diagnosed Date OB Reminders 02/11/2024 documented as of this encounter Care Teams Consumer Advocate Relationship Specialty Start Date End Date Parag Bradley MD [address] [place] [address] PCP - General Family Medicine 08/14/22 Анна Ha NP [address] [place] [address] PCP - [facility] 08/25/23 documented as of this encounter
--- OUTSIDE RECORDS SUMMARY | 2024-08-18 10:57 | XMS_ITS | Encounter Summary ---
Author Organization [facility] Address [address] [place] [address] Care Team Providers Care Vp Product Name Role Phone Parag Bradley MD Primary Care Provider [phone] Анна Ha NP Unavailable [phone] Encounter Details Date Type Department Care Team (Latest Contact Info) Description 08/17/2024 Travel Social History Tobacco Use Types Packs/Day [...] How often do you attend chur or christian services? More than 4 times per year [...] Recorded Patient Health Questionnaire-2 Score 0 08/06/2024 [facility] of Occupat ional Health - Occupational Stress [...] AM EDT Routine [facility] [address] [place] [address] Slava Castro, DO [address] [place], [place] [address] 09/07/2024 1:00 PM EDT Office Visit [facility] [address] [place] [address] Анна Ha NP [address] [place] [address] 12/15/2024 3:00 PM EDT Office Visit [facility] OB [address] [facility] [address] Slava Castro, DO [address] [place] [address] [place], [place] [address] documented as of this encounter Goals Goal Patient Goal Type Associated Problems Recent Progress Patient-Stated? Author Reminders Care Plan OB Reminders No Open Scheduling, Background documented as of this encounter Visit Diagnoses Not on filedocumented in this encounter Additional Health Concerns Active Problems Noted Date Diagnosed Date OB Reminders 02/11/2024 documented as of this encounter Care Teams Vp Product Relationship Specialty Start Date End Date Parag Bradley MD [address] [place] [address] PCP - General Family Medicine 08/14/22 Анна Ha NP [address] [place] [address] [facility] 08/25/23 documented as of this encounter
--- OUTSIDE RECORDS SUMMARY | 2024-08-18 10:57 | XMS_ITS | Referral Summary ---
Author Organization [facility] Address [address] [place] [address] Care Team Providers Care Slimer Name Role Phone Unavailable Primary Care Provider [...]
--- OUTSIDE RECORDS SUMMARY | 2024-08-18 10:57 | XMS_ITS | Encounter Summary ---
Author Organization [facility] Address [address] [place] [address] Care Team Providers Care Machine Sneller Name Role Phone Parag Bradley MD Primary Care Provider [phone] Анна Ha NP Unavailable [phone] Encounter Details Date Type Department Care Team (Late st Contact Info) Description 08/11/2024 Clinisync Result Encounter [facility] External Department Unsolicited Vidya Jackson PA [address] [place] [address] [place] [address] Social History Tobacco Use Types Packs/Day Years [...] often do you attend chur ch or hoahaoism services? More than 4 times per year 05/19/2023 Do you belong to any clubs o r organizations such as rastafari groups, unions, fraternal or athletic groups, or [...] Recorded Patient Health Questionnaire-2 Score 0 08/06/2024 [facility] ional [facility] - Occupational Stress Questionnaire Answer Date [...] Description 09/02/2024 10:40 AM EDT Routine [facility] [address] [address] Slava Castro, [address] [place], [place] [id number] 09/07/2024 1:00 PM EDT Office Visit [facility] [address] [place] [address] Анна Ha NP [address] [place] [address] 12/15/2024 3:00 PM EDT Office Visit [facility] OB [address] [address] Slava Castro, [address] [place], [place] [address] documented as of this encounter Goals Goal Patient Goal Type Associated Problems Recent Progress Patient-Stated? Author Reminders Care Plan OB Reminders No Open Scheduling, Background documented as of this encounter Procedures Procedure Name Priority Date/Time Associated Diagnosis Comments US OB BPP W NON-STRESS 08/11/2024 12:20 PM EDT documented in this encounter Results * US OB BPP W NON-STRESS (08/11/2024 12:20 PM EDT) Anatomical Region Laterality Modality Other 08/11/2024 12:2 0 PM EDT Narrative 08/11/2024 12:22 [place] [address] Ultrasound Report Signed Patient: ROXANNE MARSHALL MR#: [id number] : 1990 Acct:[id number] Age/Sex: 33 / F ADM Date: 08/11/24 Loc: [facility] 254-[address]: Vidya Jackson Ordering Physician: Vidya Jacskon Date of Service: 08/11/24 Procedure(s): US OB BPP w non-stress Accession Number(s): [id number] cc: Анна Ha NP; Vidya Jackson [place] [address] Patient Name: ROXANNE MARSHALL MRN: [id number] date: 1990 Sex: F Assigned Patient Location: [facility] Current Patient Location: [facility] Accession/Order Number: [id number] Exam Date: 08/11/2024 12:18 Report Date: 08/11/2024 12:20 At the request of: VIDYA JACKSON Procedure: US OB BPP w non-stress BIOPHYSICAL PROFILE: CLINICAL INFORMATION: History of gestational diabetes COMPARISON: 08/04/2024 There is a single live intrauterine gestation in cephalic presentation. The reported gestational age is 33 weeks 5 days. The heart rate measures 147 beats per minute. FINDINGS: TONE: 1 or [...] greater than 2 cm [Y] 2/2 LIVE: 12.4 cm. This is in low normal range. Total score: 8/8 US/US OB BPP w non-stress IMPRESSION: NORMAL BIOPHYSICAL PROFILE Impression dictated by: Isatu Auguste M.D. 08/11/2024 12:20 PM Dictation Location: [place] [address] Electronically authenticated by: [id number] Y Date: 08/11/2024 12:20 Dictated By: Isatu Auguste M.D. Signed By: 08/11/24 1222 DD/ 1220 TD/TT: Pneumatic Tool Repairer: Procedure Note Radiology, Radiologist, MD - 08/11/2024 [place] [address] Ultrasound Report Signed Patient: ROXANNE MARSHALL DMR#: [id number] : 1990Acct:[id number] Age/Sex: 33 / FADM Date: 08/11/24 Loc: [facility] 254-[address]: Vidya Jackson Ordering Physician: Vidya Jackson Date of Service: 08/11/24 Procedure(s): US OB BPP w non-stress Accession Number(s): [id number] cc: Анна Ha NP; Vidya Jackson [facility] [place] [id number] Patient Name: ROXANNE MARSHALL MRN: [id number] date: 1990 Sex: F Assigned Patient Location: [facility] Current Patient Location: [facility] Accession/Order Number: [id number] Exam Date: 08/11/2024 12:18 Report Date: 08/11/2024 12:20 At the request of: VIDYA JACKSON Procedure: US OB BPP w non-stress BIOPHYSICAL PROFILE: CLINICAL INFORMATION: History of gestational diabetes COMPARISON: 08/04/2024 There is a single live intrauterine gestation in cephalic presentation.The reported gestational age is 33 weeks 5 days. The heart ratemeasures 147 beats per minute. FINDINGS: TONE: 1 or [...] greater than 2 cm [Y] 2/2 LIVE: 12.4 cm. This is in low normal range. Total score: 8/8 US/US OB BPP w non-stress IMPRESSION: NORMAL BIOPHYSICAL PROFILE Impression dictated by: Isatu Auguste M.D. 08/11/2024 12:20 PM Dictation Location: [place] [address] Electronically authenticated by: [id number] Y Date: 2:20 Dictated By: Isatu Auguste M.D. Signed By:08/11/24 1222 DD/ 1220 TD/TT: Pneumatic Tool Repairer: Vidya DESAI [facility] Final Result documented in this encounter Visit Diagnoses Not on filedocumented in this encounter Additional Health Concerns Active Problems Noted Date Diagnosed Date OB Reminders 02/11/2024 documented as of this encounter Care Teams Machine Sneller Relationship Specialty Start Date End Date Parag Bradley MD [address] [place] [address] PCP - General Family Medicine 08/14/22 Анна Ha NP [address] [place] [address] PCP - [facility] 08/25/23 documented as of this encounter
--- OUTSIDE RECORDS SUMMARY | 2024-08-18 10:57 | XMS_ITS | Encounter Summary ---
Author Organization [facility] Address [address] [place] [address] Care Team Providers Care Medicaid Plan Compliance Director Name Role Phone Parag Bradley MD Primary Care Provider [phone] Анна Ha NP Unavailable [phone] Encounter Details Date Type Department Care Team (Late st Contact Info) Description 08/06/2024 Patient Outreach [facility] [address] [place] [address] Vidya Oliva, SUMIT [address] [place], [place] [address] Social History Tobacco Use Types Packs/Day Years [...] often do you attend chur ch or sabianist services? More than 4 times per year [...] Recorded Patient Health Questionnaire-2 Score 0 08/06/2024 [facility] Occupat ional [facility] - Occupational [...] AM EDT Routine [facility] [address] [place] [address] Slava Castro, DO [address] [facility] [address] [place], [place] [address] 09/07/2024 1:00 PM EDT Office Visit [facility] [address] [place] [address] нАна Ha, VÍCTOR [address] [place] [address] 12/15/2024 3:00 PM EDT Office Visit [facility] [address] [place] [address] Slava Castro, DO [address] [facility] [place] [address] documented as of this encounter Goals Goal Patient Goal Type Associated Problems Recent Progress Patient-Stated? Author Reminders Care Plan OB Reminders No Open Scheduling, Background documented as of this encounter Visit Diagnoses Not on filedocumented in this encounter Additional Health Concerns Active Problems Noted Date Diagnosed Date OB Reminders 02/11/2024 documented as of this encounter Care Teams Medicaid Plan Compliance Director Relationship Specialty Start Date End Date Parag Bradley MD [address] [place] [address] PCP - General Family Medicine 08/14/22 Анна Ha, VÍCTOR [address] [place] [address] PCP - [facility] 08/25/23 documented as of this encounter
--- OUTSIDE RECORDS SUMMARY | 2024-08-18 10:57 | XMS_ITS | Encounter Summary ---
Author Organization [facility] Address [address] [place] [address] Care Team Providers Care Appliance Servicer Name Role Phone Parag Bradley MD Primary Care Provider Анна Ha NP Unavailable [phone] Encounter Details Date Type Department Care Team (Late st Contact Info) Description 03/01/2024 Abstract [facility] [address] [place] [address] Slava Castro, DO [address] [place], [facility] Social History Tobacco Use Types Packs/Day Years [...] often do you attend chur ch or confucianism services? More than 4 times per year [...] Recorded Patient Health Questionnaire-2 Score 1 09/01/2023 [facility] Occupat ional [facility] - Occupational Stress Questionnaire Answer [...] in a half-way (including now)? No 05/19/2023 Estimated Date of [...] Routine [facility] [address] [facility] [place] [address] Slava Castro DO [address] [place] [address] [address] [place], [place] [address] 09/07/2024 1:00 PM EDT Office Visit [facility] [address] [place] [address] Анна Ha NP [address] [place] [address] 12/15/2024 3:00 PM EDT Office Visit [facility] [address] [facility] [place] [address] Slava Castro, [address] [place] [address] [address] [place], [place] [id number] documented as of this encounter Goals Goal Patient Goal Type Associated Problems Recent Progress Patient-Stated? Author Reminders Care Plan OB Reminders No Open Scheduling, Background documented as of this encounter Visit Diagnoses Not on filedocumented in this encounter Additional Health Concerns Active Problems Noted Date Diagnosed Date OB Reminders 02/11/2024 documented as of this encounter Care Teams Appliance Servicer Relationship Specialty Start Date End Date Parag Bradley MD [address] [place] [address] PCP - General Family Medicine 08/14/22 Анна Ha NP [address] [place] [address] PCP - [facility] 08/25/23 documented as of this encounter
--- OUTSIDE RECORDS SUMMARY | 2024-08-18 10:57 | XMS_ITS ---
Author Organization [facility] Address [address] [place] [address] Care Team Providers Care Email Specialist Name Role Phone Parag Bradley MD Primary Care Provider [phone] Анна Ha NP Unavailable [phone] [facility] ([facility]) Status:Enrolled (Active) Start date:03/09/2024 Enrollment date:03/09/2024 Enrollment reason:Identified by Health Plan Case Team Name Relationship Phone Vidya Oliva LPN(Responsible Staff) Licensed [facility] Nurse [phone] Continued Care and Services Coordination
--- OUTSIDE RECORDS SUMMARY | 2024-08-18 10:57 | XMS_ITS | Encounter Summary ---
Author Organization [facility] Address [address] [place] [address] Care Team Providers Care Heel Lift Gouger Name Role Phone Parag Bradley MD Primary Care Provider [phone] Анна Ha BANKMAN Unavailable [phone] Encounter Details Date Type Department Care Team (Late Contact Info) Description 03/04/2023 Abstract [facility] [address] [place] [address] Анна Ha, BANKMAN [address] [place] [address] Social History Tobacco Use Types Packs/Day Years [...] Department Care Team (Late Contact Info) Description 09/02/2024 10:40 AM EDT Routine [facility] [address] [place] [address] Slava Castro DO [address] [place] [address] 09/07/2024 1:00 PM EDT Office Visit [facility] [address] [place] [address] Анна Ha, VÍCTOR [address] [place] [address] 12/15/2024 3:00 PM EDT Office Visit [facility] [address] [facility] [place] [address] Slava Castro DO [address] [facility] [place] [address] documented as of this encounter Visit Diagnoses Not on filedocumented in this encounter Care Teams Heel Lift Gouger Relationship Specialty Start Date End Date Parag Bradley MD [address] [place] [address] PCP - General Family Medicine 08/14/22 Анна Ha, VÍCTOR [address] [place] [address] PCP - [facility] 08/25/23 documented as of this encounter
--- OUTSIDE RECORDS SUMMARY | 2024-08-18 10:57 | XMS_ITS | Patient Health Record ---
Author Organization [facility] es Address [address] [place] [address] Care Team Providers Care Hospice Physician Name Role Phone Naida Valera Primary Care Provider Reason For Referral No Information Medications Medication SIG (Take, Route, Frequency, Duration) Notes Start Date End Date Status Zoloft Unknown TRAZODONE Unknown Acetaminophen Extra Strength 500 MG 1 tablet as needed Orally every 6 hrs 01/02/2024 Active Encounters Encounter Location Date Provider Diagnosis [place] [address] [place] [address] 12/25/2023 Naida Valera Cracked tooth K03 .81 [facility] [address] [place] [address] 12/29/2023 Naida Valera Encounter for den mercy examination and cleaning with abnormal findings Z01.21 [facility] [address] [place] [address] 01/02/2024 Naida Valera Encounter for den mercy [...] ruff, 11/12/2024 10:30:00 AM, [address] [place], [address], Insurance Providers Payer Name Payer Address Payer Phone Subscriber Number Group Number Insured Name Patient Relationship to Insured Coverage Start Date Coverage End Date D[employer] [address] [address] [place] [phone] [id number] ROXANNE ROGERS Self - patient is the insured 4 Secondary [employer] [place] [employer] [address] [address] [place] [address] [id number] ROXANNE ROGERS Self - patient is the insured 3 [employer] [facility] [place] [address] [place] [address] [id number] ROXANNE ROGERS Self - patient is the insured 3
--- OUTSIDE RECORDS SUMMARY | 2024-08-18 10:57 | XMS_ITS | Encounter Summary ---
Author Organization [facility] Address [address] [place] [address] Care Team Providers Care Pad Cutter Name Role Phone Parag Bradley MD Primary Care Provider [phone] Анна Ha NP Unavailable [phone] Encounter Details Date Type Department Care Team (Late st Contact Info) Description 08/18/2024 Bamboo flowsheet [facility] [address] [facility] [place] [address] Ximena Carver NP [address] [facility] [place] [address] Social History Tobacco Use Types Packs/Day Years [...] How often do you attend chur or moravian services? More than 4 times per year 05/19/2023 Do you belong to any clubs o r organizations such as lutheran groups, unions, fraternal or athletic groups, or [...] Score 0 08/06/2024 [facility] - Occupational Stress Questionnaire Answer [...] Description 09/02/2024 10:40 AM EDT Routine [facility] [address] [place] [address] Slava Castro, [address] [place] [address] [address] [place], [place] [address] 09/07/2024 1:00 PM EDT Office Visit [facility] [address] [place] [address] Анна Ha NP [address] [place] [address] 12/15/2024 3:00 PM EDT Office Visit [facility] OB [address] [place] [address] Slava Castro DO [address] [place], [place] [address] [place], [place] [address] documented as of this encounter Goals Goal Patient Goal Type Associated Problems Recent Progress Patient-Stated? Author Reminders Care Plan OB Reminders No Open Scheduling, Background documented as of this encounter Visit Diagnoses Not on filedocumented in this encounter Additional Health Concerns Active Problems Noted Date Diagnosed Date OB Reminders 02/11/2024 documented as of this encounter Care Teams Pad Cutter Relationship Specialty Start Date End Date Parag Bradley MD [address] [place] [address] PCP - General Family Medicine 08/14/22 Анна Ha NP [address] [place] [address] PCP - [facility] 08/25/23 documented as of this encounter
--- OUTSIDE RECORDS SUMMARY | 2024-08-18 10:57 | XMS_ITS | Clinical Summary ---
Author Organization [facility] Address [address] [place] [address] Care Team Providers Care Business Development Analyst Name Role Phone Parag Bradley MD Primary Care Provider [phone] Анна Ha NP Unavailable [phone] Allergies Active Allergy Reactions Criticality Noted [...] DR capsuleIndicati ons:Heartburn during in second trimester ([facility]) Take 1 capsule (20 mg) by mouth [...] Encounters Date Type Department Care Team Description 08/18/2024 9:30 AM EDT Routine [facility] OB [address] [facility] [place] [address] Ximena Carver, VÍCTOR Third trimester ([facility]); 34 weeks gestation of ([facility]) 08/18/2024 Bamboo flowsheet [facility] OB [place] [facility] [place] [address] Ximena Carver NP 08/17/2024 Travel 08/13/2024 Clinisync Result Encounter [facility] External Department Unsolicited Provider, Generic External Data 08/11/2024 Clinisync Result Encounter NOMS External Department Unsolicited Vidya Sepulveda PA 08/06/2024 Patient Outreach [facility] [place] [address] Vidya Oliva LPN 08/04/2024 2:20 PM EDT Routine [facility] OB [address] [place] [phone] Orlin Castro DO 32 weeks gestation of ([facility]); Third trimester ([facility]) 08/04/2024 Abstract [facility] [address] [place] [address] Анна Ha NP 08/04/2024 Clinisync Result Encounter NOMS External Department Unsolicited Provider, Generic External Data 08/03/2024 Travel 07/28/2024 Clinisync Result Encounter NOMS External Department Unsolicited Provider, Generic External Data 07/26/2024 Abstract [facility] [address] [place] [address] [phone] Orlin Castro DO 07/23/2024 Clinisync Result Encounter NOMS External Department Unsolicited Provider, Generic External Data 07/21/2024 2:20 PM EDT Routine NOM[facility] [address] [place] [address] Vidya Sepulveda PA Third trimester ([facility]); 30 weeks gestation of ([facility]); History of gestational diabetes 07/21/[address] [place] [address] iLzzy Wood MA 07/17/2024 Clinisync Result Encounter NOMS External Department Unsolicited Provider, Generic External Data 07/14/2024 Travel 07/08/[address] [place] [address] Leesa Coon MA 07/07/2024 Patient Outreach [facility] [address] [place] [address] Vidya Oliva LPN 07/06/2024 1:50 PM EDT Routine N[facility] [address] [place] [address] Orlin Castro DO Third trimester ([facility]); 28 weeks gestation of ([facility]); Elevated glucose tolerance test; Diabetes mellitus screening; SGA (small for gestational age) ([facility]) 07/06/2024 1:30 PM EDT Ancillary Procedure [facility] [address] [place] [address] Antepartum multigravida of advanced maternal age ([facility]) 07/05/2024 Clinisync Result Encounter NOMS External Department Unsolicited Provider, Generic External Data 06/16/2024 1:20 PM EDT Routine NOM[facility] [address] [place] [address] Ximena Carver, VÍCTOR Second trimester ([facility]); 25 weeks gestation of ([facility]); Screen for STD (sexually transmitted disease); Diabetes mellitus screening; Antepartum multigravida of advanced maternal age ([facility]) 06/16/2024 External Result Encounter NOMS External Department Unsolicited Orlin Castro DO 06/16/2024 Bamboo flowsheet [facility] [address] [place] [address] Ximena Carver NP 06/15/2024 Travel 06/08/2024 Patient Outreach [facility] [address] [place] [place] [address] Vidya Oliva LPN 06/03/2024 Travel from Last 3 Months Immunizations Immunization [...] any clubs o r organizations such as methodist groups, unions, fraternal or athletic groups, or [...] Recorded Patient Health Questionnaire-2 Score 0 08/06/2024 [facility] Occupational Stress Questionnaire Answer Date [...] Pressure 116/82 08/18/2024 9:37 AM EDT Pulse 97 09/01/2023 10:37 AM EDT Temperature 37.1 C (98.8 F) 09/01/2023 10:37 AM EDT Respiratory Rate 18 09/01/2023 10:37 AM EDT Oxygen Saturation 97% 09/01/2023 10:37 AM EDT Inhaled Oxygen Concentration - - Weight 79.4 kg (175 lb) 08/18/2024 9:37 AM EDT Height 154.9 cm (5' 1 ) 09/01/2023 10:37 AM EDT Body Mass Index 33.07 09/01/2023 10:37 AM EDT Plan of Treatment Upcoming Encounters Date Type Department Care Team (Late st Contact Info) Description 09/02/2024 10:40 AM EDT Routine [facility] OB [address] [place] [address] Orlin Castro, DO [address] [facility] [address] [place], [place] [phone] 09/07/2024 1:00 PM EDT Office Visit [facility] [address] [place] [address] Анна Ha, CAMPUS ADMINISTRATIVE ASSISTANT [address] [place] [address] 12/15/2024 3:00 PM EDT Office Visit [facility] OB [address] [place] [place] [address] Orlin Castro, DO [address] [facility] [address] [place], [place] [phone] Health Maintenance Due Date Last Done Comments Cervical Cancer Screening 12/09/2028 HPV/Cotest 12/09/2028 Pap Smear 12/09/2028 12/10/2023, 11/25/2022 Influenza Vaccine Discontinued 12/08/2017 Goals Goal Patient Goal Type Associated Problems Recent Progress Patient-Stated? Author Reminders Care Plan OB Reminders No Open Scheduling, Background Procedures Procedure Name Priority Date/Time Associated Diagnosis Comments POCT URINALYSIS DIPSTICK Routine 08/18/2024 10:28 AM EDT Third trimester ([facility]) US OB BPP W NON-STRESS 08/13/2024 5:27 PM EDT US OB BPP W NON-STRESS 08/11/2024 12:20 PM EDT POCT URINALYSIS DIPSTICK Routine 08/04/2024 2:36 PM EDT 32 weeks gestation of ([facility]) Third trimester ([facility]) US OB BPP W NON-STRESS 08/04/2024 11:43 AM EDT US OB GROWTH 07/28/2024 10:48 AM EDT GLUCOSE TOLERANCE 3 HOUR Routine 07/23/2024 9:09 AM EDT GLUCOSE 1 HOUR Routine 07/17/2024 9:48 AM EDT POCT URINALYSIS DIPSTICK Routine 07/06/2024 2:18 PM EDT Third trimester ([facility]) US OB FOLLOW UP TRANSABDOMINAL APPROACH Routine 07/06/2024 2:04 PM EDT Antepartum multigravida of advanced maternal age ([facility]) GLUCOSE 1 HOUR Routine 07/05/2024 10:48 AM EDT ALL CBC WITH AUTO DIFF Routine 10:48 AM EDT RECURRENT VAGINITIS (HTRX) Routine 06/16/2024 2:27 PM EDT POCT URINALYSIS DIPSTICK Routine 06/16/2024 1:50 PM EDT Second trimester ([facility]) PAP SMEAR Routine 12/10/2023 12:00 AM EDT from Last 3 Months or Most Recently Relevant to Health Maintenance Results * (ABNORMAL) POCT urinalysis dipstick manually resulted (08/18/2024 10:28 AM EDT) Only the most recent of4 resultswithin the time period is included. Color, UA Yellow Clarity, UA Clear Glucose, UA Negative Negative - 2000(110) ++++ mg/dL Bilirubin, UA Negative Negative - 4(70) +++ mg/dL Ketones, UA Positive Negative - 160(16) ++++ mg/dL Comment:Trace Spec Grav, UA 1.025 1 - 1.03 Blood, UA Negative Negative - 50 Richy/mcL pH, UA 6.5 5 - 9 Protein, UA Positive Negative - 1999(20) ++++ mg/dL Comment:30mg/dL Urobilinogen, UA 0.2 0.2 - 12 mg/dL Leukocytes, UA Negative Negative - 500+++ Tano/mcL Nitrite, UA Negative Negative - Positive Urine 08/18/2024 10:2 8 AM EDT us Ximena Carver NP POINT OF CARE TEST ENTER/EDIT ORDERABLES Final Result * US OB BPP W NON-STRESS (08/13/2024 5:27 PM EDT) Only the most recent of3 resultswithin the time period is included. Anatomical Region Laterality Modality Other 08/13/2024 5:27 PM EDT Narrative 08/13/2024 5:29 [place] [address] Ultrasound Report Signed Patient: ROXANNE MARSHALL MR#: [id number] : 1990 Acct:[id number] Age/Sex: 33 / F ADM Date: 08/13/24 Loc: US Attending Dr: Orlin Castro D.O. Ordering Physician: Orlin Castro D.O. Date of Service: 08/13/24 Procedure(s): US OB BPP w non-stress Accession Number(s): [id number] cc: Анна Ha CAMPUS ADMINISTRATIVE ASSISTANT; Orlin Castro D.O. The [address] [address] Patient Name: ROXANNE MARSHALL MRN: [id number] date: 1990 Sex: F Assigned Patient Location: [facility] Current Patient Location: Accession/Order Number: [id number] Exam Date: 08/13/2024 17:25 Report Date: 08/13/2024 [...] Camacho M.D. 08/13/2024 5:27 PM Dictation Location: [place] [address] Electronically authenticated by: [id number] Y Date: 08/13/2024 17:27 Dictated By: Nilo Camacho M.D. Signed By: 08/13/241728 DD/ 26 TD/TT: Side Door Man: Procedure Note Radiology, Radiologist, MD - 08/13/2024 [place] [address] Ultrasound Report Signed Patient: ROXANNE MARSHALL DMR#: [id number] : 1990Acct:[id number] Age/Sex: 33 / FADM Date: 08/13/24 Loc: US Attending Dr: Orlin Castro D.O. Ordering Physician: Orlin Csatro D.O. Date of Service: 08/13/24 Procedure(s): US OB BPP w non-stress Accession Number(s): [id number] cc: Анна Ha CAMPUS ADMINISTRATIVE ASSISTANT; Orlin Castro D.O. The [address] [address] Patient Name: ROXANNE MARSHALL MRN: [id number] date: 1990 Sex: F Assigned Patient Location: [facility] Current Patient Location: Accession/Order Number: [id number] Exam Date: 08/13/2024 17:25 Report Date: 08/13/2024 [...] Camacho M.D. 08/13/2024 5:27 PM Dictation Location: [place] [address] Electronically authenticated by: [id number] Y Date: 7:27 Dictated By: Nilo Camacho M.D. Signed By:08/13/24 1729 DD/ 26 TD/TT: Side Door Man: us [facility] External Data Provider [facility] Final Result * US OB GROWTH (07/28/2024 10:48 AM EDT) Anatomical Region Laterality Modality Other 07/28/2024 10:4 8 AM EDT Narrative 07/28/2024 10:51 [place] [address] Ultrasound Report Signed Patient: ROXANNE MARSHALL MR#: [id number] : 1990 Acct:[id number] Age/Sex: 33 / F ADM Date: 07/28/24 Loc: US Attending Dr: Orlin Castro D.O. Ordering Physician: Orlin Castro D.O. Date of Service: 07/28/24 Procedure(s): US OB growth Accession Number(s): [id number] cc: Анна Ha CAMPUS ADMINISTRATIVE ASSISTANT; Orlin Castro D.O. The [place] [id number] Patient Name: ROXANNE MARSHALL MRN: [id number] date: 1990 Sex: F Assigned Patient Location: US Current Patient Location: US Accession/Order Number: [id number] Exam Date: 07/28/2024 10:44 Report Date: 07/28/2024 [...] Auguste M.D. 07/28/2024 10:48 AM Dictation Location: [place] [address] Electronically authenticated by: [id number] Y Date: 07/28/2024 10:48 Dictated By: Isatu Auguste M.D. Signed By: 07/28/24 1051 DD/ 1048 TD/TT: Side Door Man: Procedure Note Radiology, Radiologist, - 07/28/2024 [place] [address] Ultrasound Report Signed Patient: ROXANNE MARSHALL DMR#: [id number] : 1990Acct:[id number] Age/Sex: 33 / FADM Date: 07/28/24 Loc: US Attending Dr: Orlin Castro D.O. Ordering Physician: Orlin Castro D.O. Date of Service: 07/28/24 Procedure(s): US OB growth Accession Number(s): [id number] cc: Анна Ha CAMPUS ADMINISTRATIVE ASSISTANT; Orlin Castro D.O. [place] [address] Patient Name: ROXANNE MARSHALL MRN: [id number] date: 1990 Sex: F Assigned Patient Location: US Current Patient Location: US Accession/Order Number: [id number] Exam Date: 07/28/2024 10:44 Report Date: 07/28/2024 10:48 At the request of: ORLIN CASRTO DO Procedure: US OB growth ULTRASOUND OB [...] Auguste M.D. 07/28/2024 10:48 AM Dictation Location: [place] [address] Electronically authenticated by: [id number] Y Date: 0:48 Dictated By: Isatu Auguste M.D. Signed By:07/28/24 1051 DD/ 1048 TD/TT: Side Door Man: us Generic External Data Provider [facility] [...] ORDERABLES Final Resul t Performing Organization Address City/[facility]/ZIP Co de Phone Number CLINHojokiTX TB * (ABNORMAL) GLUCOSE 1 HOUR (07/17/2024 9:48 AM EDT) Only the most recent of2 resultswithin the time period is included. GLUCOSE 1 HOUR 162(H) <130 mg/dL TB 07/17/2024 9:48 AM EDT 07/17/2024 9:49 AM EDT Narrative [facility] - 07/17/2024 10:52 AM EDT us Orlin Gloria DO LAB BLOOD ORDERABLES Final Resul t [facility] * US OB follow up transabdominal approach [...] II, MD, PHD at 07-Jul-2024 10:00:26 AM [facility] Procedure Note Tabitha Campbell MD - [...] signed by TABITHA CAMPBELL II, MD, PHD [id number] 10:00:26 AM [facility] us Orlin Gloria DO IMG OB US PROCEDURES Final [...] 10:58 AM EDT us Ximena Carver NP [facility] Final Result [facility] * RECURRENT VAGINITIS (HTRX) (06/16/2024 2:27 PM EDT) Pathologist [facility] ATOPOBIUM VAGINAE 0.000 19.961 - 24.689 ppm 06/17/2024 8:02 AM EDT [facility] ATOPOBIUM VAGINAE Not Detected 19.961 - 24.689 ppm 06/17/2024 8:02 AM EDT [facility] BVAB 2,3 (BACTERIAL VAGINOSIS ASSOCIATED BACTERIA 2, 3); MOBILUNCUS SPP 0.000 19.961 - 24.689 ppm 06/17/2024 8:02 AM EDT [facility] BVAB 2,3 (BACTERIAL VAGINOSIS ASSOCIATED BACTERIA 2, 3); MOBILUNCUS SPP Not Detected 19.961 - 24.689 ppm 06/17/2024 8:02 AM EDT [facility] RANJANA ALBICANS, PARAPSILOSIS, TROPICALIS 0.000 19.961 - 30.770 ppm 06/17/2024 8:02 AM EDT [facility] RANJANA ALBICANS, PARAPSILOSIS, TROPICALIS Not Detected 19.961 - 30.770 ppm 06/17/2024 8:02 AM EDT [facility] RANJANA GLABRATA 0.000 23.000 - 32.138 ppm 06/17/2024 8:02 AM EDT [facility] RANJANA GLABRATA Not Detected 23.000 - 32.138 ppm 06/17/2024 8:02 AM EDT [facility] RANJANA KRUSEI 0.000 23.000 - 32.271 ppm 06/17/2024 8:02 AM EDT [facility] RANJANA KRUSEI Not Detected 23.000 - 32.271 ppm 06/17/2024 8:02 AM EDT [facility] CHLAMYDIA TRACHOMATIS 0.000 23.000 - 31.467 ppm 06/17/2024 8:02 AM EDT [facility] CHLAMYDIA TRACHOMATIS Not Detected 23.000 - 31.467 ppm 06/17/2024 8:02 AM EDT [facility] GARDNERELLA VAGINALIS 0.000 19.961 - 24.689 ppm 06/17/2024 8:02 AM EDT [facility] GARDNERELLA VAGINALIS Not Detected 19.961 - 24.689 ppm 06/17/2024 8:02 AM EDT [facility] MEGASPHAERA (TYPES 1, 2) 0.000 19.961 - 24.689 ppm 06/17/2024 8:02 AM EDT [facility] MEGASPHAERA (TYPES 1, 2) Not Detected 19.961 - 24.689 ppm 06/17/2024 8:02 AM EDT [facility] NEISSERIA GONORRHOEAE 0.000 23.000 - 32.117 ppm 06/17/2024 8:03 AM EDT [facility] NEISSERIA GONORRHOEAE Not Detected 23.000 - 32.117 ppm 06/17/2024 8:03 AM EDT [facility] TRICHOMONAS VAGINALIS 0.000 23.000 - 32.119 ppm 06/17/2024 8:02 AM EDT [facility] TRICHOMONAS VAGINALIS Not Detected 23.000 - 32.119 ppm 06/17/2024 8:02 AM EDT [facility] MYCOPLASMA GENITALIUM 0.000 19.961 - 24.689 ppm 06/17/2024 8:02 AM EDT [facility] MYCOPLASMA GENITALIUM Not Detected 19.961 - 24.689 ppm 06/17/2024 8:02 AM EDT [facility] Tissue 06/16/2024 2:27 PM EDT 06/17/2024 1:54 AM EDT us Orlin Gloria DO LAB BLOOD ORDERABLES Final Resul t [facility] [address] [place] [place] [address] * Pap Smear (12/10/2023 12:00 AM EDT) Swab Cervical swab / Unknown us Orlin Gloria DO LAB CYTOLOGY ORDERABLES Final Re sult EXTERNAL LAB from Last 3 Months or Most Recently Relevant to Health Maintenance Additional Health Concerns Active Problems Noted Date Diagnosed Date OB Reminders 02/11/2024 Insurance [employer] Care Teams Business Development Analyst Relationship Specialty Start Date End Date Parag Bradley MD [address] [place] [address] PCP - General Family Medicine 08/14/22 Анна Ha NP [address] [place] [address] [facility] 08/25/23
--- OUTSIDE RECORDS SUMMARY | 2024-08-18 10:57 | XMS_ITS | Encounter Summary ---
Author Organization [facility] Address [address] [place] [address] Care Team Providers Care Laborer [employer]arch Factory Name Role Phone Parag Bradley MD Primary Care Provider Анна Ha NP Unavailable [phone] Encounter Details Date Type Department Care Team (Late st Contact Info) Description 07/26/2024 Abstract [facility] OB [address] [place] [address] Slava Castro, DO [address] [place], [id number] Social History Tobacco Use Types Packs/Day Years [...] Recorded Patient Health Questionnaire-2 Score 0 06/08/2024 [facility] of Occupat ional [facility] - Occupational Stress Questionnaire Answer Date Recorded [...] place to sleep or slept in a alf (including now)? No 05/19/2023 Estimated Date of [...] Description 09/02/2024 10:40 AM EDT Routine [facility] OB [address] [facility] [place] [phone] Slava Castro DO [address] [place] [address] [address] [place], [place] [phone] 09/07/2024 1:00 PM EDT Office Visit [facility] [address] [place] [address] Анна Ha NP [address] [place] [address] 12/15/2024 3:00 PM EDT Office Visit [facility] OB [address] [facility] [place] [address] Slava Castro, [address] [place] [address] [address] [place], [place] [phone] documented as of this encounter Goals Goal Patient Goal Type Associated Problems Recent Progress Patient-Stated? Author Reminders Care Plan OB Reminders No Open Scheduling, Background documented as of this encounter Visit Diagnoses Not on filedocumented in this encounter Additional Health Concerns Active Problems Noted Date Diagnosed Date OB Reminders 02/11/2024 documented as of this encounter Care Teams Laborer Starch Factory Relationship Specialty Start Date End Date Parag Bradley MD [address] [place] [address] PCP - General Family Medicine 08/14/22 Анна Ha NP [address] [place] [address] PCP - [facility] 08/25/23 documented as of this encounter
--- OUTSIDE RECORDS SUMMARY | 2024-08-18 10:57 | XMS_ITS | Encounter Summary ---
Author Organization [facility] Address [address] [place] [address] Care Team Providers Care Axminster Weaver Name Role Phone Parag Bradley MD Primary Care Provider [phone] Анна Ha NP Unavailable [phone] Encounter Details Date Type Department Care [...] often do you attend chur ch or yazidi services? More than 4 times per year 05/19/2023 Do you belong to any clubs o r organizations such as congregation groups, unions, fraternal [...] Health Questionnaire-2 Score 0 05/26/2023 [facility] of Occupat ional [facility] - Occupational Stress Questionnaire Answer Date [...] place to sleep or slept in a halfway (including now)? No 05/19/2023 Comments Unknown Sex [...] 10:40 AM EDT Routine [facility] OB [address] [place] [address] [place] [phone] Orlin Castro, DO [address] [place] [address] [place], [place] [phone] 09/07/2024 1:00 PM EDT Office Visit [facility] [address] [place] [address] Анна Ha, MANGA ARTIST [address] [place] [address] 12/15/2024 3:00 PM EDT Office Visit [facility] OB [address] [place] [address] [place] [phone] Orlin Castro, [address] [place] [address] documented as of this encounter Procedures Procedure Name Priority Date/Time Associated Diagnosis Comments US OB TRANSVAGINAL 06/13/2023 11 :13 AM EDT [facility] PREG QUANT HCG Routine 06/13/2023 10 :49 AM EDT documented in this encounter Results * US OB TRANSVAGINAL (06/13/2023 11:13 AM EDT) Anatomical Region Laterality Modality Other 06/13/2023 11:1 3 AM EDT Narrative 06/13/2023 11:[place] [address] Ultrasound Report Signed Patient: ROXANNE MARSHALL MR#: [id number] : 1990 Acct:[id number] Age/Sex: 32 / F ADM Date: 06/13/23 Loc: [facility] Attending Dr: Orlin Castro D.O. Ordering Physician: Orlin Castro D.O. Date of Service: 06/13/23 Procedure(s): US OB transvaginal Accession Number(s): [id number] cc: Анна Ha MANGA ARTIST; Orlin Castro D.O. [place] [phone] Patient Name: ROXANNE MARSHALL MRN: [id number] date: 1990 Sex: F Assigned Patient Location: [facility] Current Patient Location: [facility] Accession/Order Number: [id number] Exam Date: 06/13/2023 09:58 Report Date: 06/13/2023 [...] Signed By: 06/13/23 1116 DD/ 1113 TD/TT: Elementary School Art Teacher: Procedure Note Radiology, Radiologist, MD - 06/13/2023 [place] [address] Ultrasound Report Signed Patient: ROXANNE MARSHALL DMR#: [id number] : 1990Acct:[id number] Age/Sex: 32 / FADM Date: 06/13/23 Loc: [facility] Attending Dr: Orlin Castro D.O. Ordering Physician: Orlin Castro D.O. Date of Service: 06/13/23 Procedure(s): US OB transvaginal Accession Number(s): [id number] cc: Анна Ha MANGA ARTIST; Orlin Castro D.O. The [place] [address] Patient Name: ROXANNE MARSHALL MRN: [id number] date: 1990 Sex: F Assigned Patient Location: [facility] Current Patient Location: [facility] Accession/Order Number: [id number] Exam Date: 06/13/2023 09:58 Report Date: 06/13/2023 [...] M.D. Signed By:06/13/23 1116 DD/ 1113 TD/TT: Elementary School Art Teacher: us Generic External Data Provider [facility] [...] [facility] F inal Result Performing Organization Address City/State/[facility] Co de Phone Number [facility] TB documented in this encounter Visit Diagnoses Not on filedocumented in this encounter Care Teams Axminster Weaver Relationship Specialty Start Date End Date Parag Bradley MD [address] [place] [address] PCP - General Family Medicine 08/14/22 Анна Ha NP [address] [place] [address] PCP - [facility] 08/25/23 documented as of this encounter
--- OUTSIDE RECORDS SUMMARY | 2024-08-18 10:57 | XMS_ITS | Encounter Summary ---
Author Organization [facility] Address [address] [place] [address] Care Team Providers Care Pattern Maker Name Role Phone Parag Bradley MD Primary Care Provider [phone] Анна Ha NP Unavailable [phone] Encounter Details Date Type Department Care [...] often do you attend chur ch or judaism services? More than 4 times per year [...] Recorded Patient Health Questionnaire-2 Score 0 06/08/2024 [facility] - [...] [facility] OB [address] [place] [address] [place] [address] Slava Castro, [address] [place], [place] [id number] 09/07/2024 1:00 PM EDT Office Visit [facility] [address] [place] [address] Анна Ha, RECYCLING COLLECTIONS DRIVER [address] [place] [address] 12/15/2024 3:00 PM EDT Office Visit [facility] OB [address] [place], [place] [address] [place] [address] Slava Castro, [facility] [place], [place] [id number] documented as of this encounter Goals Goal [...] EDT Narrative 08/04/2024 11:46 AM EDT The [place] [id number] Ultrasound Report Signed Patient: ROXANNE MARSHALL MR#: [id number] : 1990 Acct:[id number] Age/Sex: 33 / F ADM Date: 08/04/24 Loc: [facility] 250-[address]: Vidya Jackson Ordering Physician: Vidya Jackson Date of Service: 08/04/24 Procedure(s): US OB BPP w non-stress Accession Number(s): [id number] cc: Анна Ha NP; Vidya Jackson The [place] [address] Patient Name: ROXANNE MARSHALL MRN: [id number] date: 1990 Sex: F Assigned Patient Location: [facility] Current Patient Location: [facility] Accession/Order Number: [id number] Exam Date: 08/04/2024 11:42 Report Date: 08/04/2024 [...] Auguste M.D. 08/04/2024 11:43 AM Dictation Location: [place] [address] Electronically authenticated by: [id number] Y Date: 08/04/2024 11:43 Dictated By: Isatu Auguste M.D. 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 [employer] Salvaging: Procedure Note Radiology, Radiologist, - 08/04/2024 [place] [address] Ultrasound Report Signed Patient: ROXANNE MARSHALL DMR#: [id number] : 1990Acct:[id number] Age/Sex: 33 / FADM Date: 08/04/24 Loc: [place] [address]: Vidya Jackson Ordering Physician: Vidya Jackson Date of Service: 08/04/24 Procedure(s): US OB BPP w non-stress Accession Number(s): [id number] cc: Анна Ha RECYCLING COLLECTIONS DRIVER; Vidya Jackson The [place] [address] Patient Name: ROXANNE MARSHALL MRN: [id number] date: 1990 Sex: F Assigned Patient Location: [facility] Current Patient Location: [facility] Accession/Order Number: [id number] Exam Date: 08/04/2024 11:42 Report Date: 08/04/2024 [...] Auguste M.D. 08/04/2024 11:43 AM Dictation Location: [place] [address] Electronically authenticated by: [id number] Y Date: 1:43 Dictated By: Isatu Auguste M.D. Signed By:08/04/24 1146 DD/ 1143 TD/TT: [employer]: us Generic External Data Provider [facility] Final Result documented in this encounter Visit Diagnoses Not on filedocumented in this encounter Additional Health Concerns Active Problems Noted Date Diagnosed Date OB Reminders 02/11/2024 documented as of this encounter Care Teams Pattern Maker Relationship Specialty Start Date End Date Parag Bradley MD [address] [place] [address] PCP - General Family Medicine 08/14/22 Анна Ha NP [address] [place] [address] PCP - [facility] 08/25/23 documented as of this encounter
--- OUTSIDE RECORDS SUMMARY | 2024-08-18 10:57 | XMS_ITS | Encounter Summary ---
Author Organization [facility] Address [address] [place] [address] Care Team Providers Care Pulp Refiner Operator Name Role Phone Parag Bradley MD Primary Care Provider [phone] Анна Ha PYROTECHNICS PRESS TENDER Unavailable [phone] Encounter Details Date Type Department Care Team (Late st Contact Info) Description 08/04/2024 Abstract [facility] [address] [place] [address] Анна Ha, VÍCTOR [address] [place] [address] Social History Tobacco Use Types Packs/Day Years [...] often do you attend chur ch or evangelical services? More than 4 times per year 05/19/2023 Do you belong to any clubs o r organizations such as shinto groups, unions, fraternal or athletic groups, or [...] Patient Health Questionnaire-2 Score 0 08/06/2024 [facility] Stress Questionnaire Answer [...] -2 Score 0 08/06/2024 10:44 AM EDT [facility] N documented as of this encounter Plan of Treatment Upcoming Encounters Date Type Department Care Team (Late st Contact Info) Description 09/02/2024 10:40 AM EDT Routine [facility] [address] [place] [address] Slava Castro, DO [address] [place] [address] [place] [address] 09/07/2024 1:00 PM EDT Office Visit [facility] [address] [place] [address] Анна Ha, VÍCTOR [address] [place] [address] 12/15/2024 3:00 PM EDT Office Visit [facility] [address] [facility] [address] Slava Castro, [address] [place] [address] [place] [address] documented as of this encounter Goals Goal Patient Goal Type Associated Problems Recent Progress Patient-Stated? Author Reminders Care Plan OB Reminders No Open Scheduling, Background documented as of this encounter Visit Diagnoses Not on filedocumented in this encounter Additional Health Concerns Active Problems Noted Date Diagnosed Date OB Reminders 02/11/2024 documented as of this encounter Care Teams Pulp Refiner Operator Relationship Specialty Start Date End Date Parag Bradley MD [address] [place] [address] PCP - General Family Medicine 08/14/22 Анна Ha NP [address] [place] [address] PCP - [facility] 08/25/23 documented as of this encounter
--- OUTSIDE RECORDS SUMMARY | 2024-08-18 10:57 | XMS_ITS | Encounter Summary ---
Author Organization [facility] Address [address] [place] [address] Care Team Providers Care Nitro Worker Name Role Phone Parag Bradley MD Primary Care Provider [phone] Анна Ha NP Unavailable [phone] Encounter Details Date Type Department Care Team (Late st Contact Info) Description 06/16/2023 Orders Only [facility] [address] [place] [address] Slava Castro, DO [address] [facility] [address] [address] Social History Tobacco Use Types Packs/Day Years [...] How often do you attend chur or rastafari services? More than 4 times per year 05/19/2023 Do you belong to any clubs o r organizations such as sikh groups, unions, fraternal or athletic groups, or [...] Recorded Patient Health Questionnaire-2 Score 0 05/26/2023 [facility] - [facility]ational Stress Questionnaire Answer [...] Description 09/02/2024 10:40 AM EDT Routine [facility] [address] [place] [address] [place] [address] Slava Castro [address] [place], [place] [address] 09/07/2024 1:00 PM EDT Office Visit [facility] [address] [place] [address] Анна Ha NP [address] [place] [address] 12/15/2024 3:00 PM EDT Office Visit [facility] [address] [place] [address] Slava Castro [address] [place], [place] [address] documented as of this encounter Procedures Procedure [...] on filedocumented in this encounter Care Teams Nitro Worker Relationship Specialty Start Date End Date Parag Bradley MD [address] [place] [address] PCP - General Family Medicine 08/14/22 Анна Ha NP [address] [place] [address] [facility] 08/25/23 documented as of this encounter
--- OUTSIDE RECORDS SUMMARY | 2024-08-18 10:57 | XMS_ITS | Clinical Summary ---
Author Organization [facility] Address [address] [place] [address] Care Team Providers Care Counter Stitcher Name Role Phone Unavailable Primary Care Provider [...]
--- OUTSIDE RECORDS SUMMARY | 2024-08-18 10:57 | XMS_ITS | Encounter Summary ---
Author Organization [facility] Address [address] [place] [address] Care Team Providers Care Radio Artist Name Role Phone Parag Bradley MD Primary Care Provider [phone] Анна Ha NP Unavailable [phone] Encounter Details Date Type Department Care [...] often do you attend chur ch or nondenominational services? More than 4 times per year [...] Patient Health Questionnaire-2 Score 1 09/01/2023 [facility] - Occupational Stress Questionnaire Answer Date [...] to sleep or slept in a senior care (including now)? No 05/19/2023 Estimated Date of [...] Description 09/02/2024 10:40 AM EDT [facility]ine [facility] [address] [place], [place] [address] [place] [address] Orlin Castro, [facility] Helen [place], [place] [address] 09/07/2024 1:00 PM EDT Office Visit [facility] [address] [place] [address] Анна Ha, BASS MECHANISM MAKER [address] [place] [address] 12/15/2024 3:00 PM EDT Office Visit [facility] [address] [place], [place] [address] [address] Orlin Castro, [facility] Helen [place], [place] [address] documented as of this encounter Goals Goal [...] AM EST Narrative 02/12/2024 4:31 [place] [address] Ultrasound Report Signed Patient: ROXANNE MARSHALL MR#: [id number] : 1990 Acct:[id number] Age/Sex: 33 / F ADM Date: 02/11/24 Loc: [facility] Attending Dr: Orlin Castro D.O. Ordering Physician: Orlin Castro D.O. Date of Service: 02/11/24 Procedure(s): US OB transvaginal Accession Number(s): [id number] cc: Анна Ha BASS MECHANISM MAKER; Orlin Castro D.O. [address] [address] Patient Name: ROXANNE MARSHALL MRN: [id number] date: 1990 Sex: F Assigned Patient Location: [facility] Current Patient Location: Accession/Order Number: [id number] Exam Date: 02/11/2024 09:39 Report Date: 02/12/2024 [...] Signed By: 02/12/24 0431 DD/ 0429 TD/TT: Tour Conductor: Procedure Note Radiology, Radiologist, MD Herr 02/12/2024 [place] [address] Ultrasound Report Signed Patient: ROXANNE MARSHALL DMR#: [id number] : 1990Acct:[id number] Age/Sex: 33 / FADM Date: 02/11/24 Loc: [facility] Attending Dr: Orlin Castro D.O. Ordering Physician: Orlin Castro D.O. Date of Service: 02/11/24 Procedure(s): US OB transvaginal Accession Number(s): [id number] cc: Анна Ha BASS MECHANISM MAKER; Orlin Castro D.O. The [place] [address] Patient Name: ROXANNE MARSHALL MRN: [id number] date: 1990 Sex: F Assigned Patient Location: [facility] Current Patient Location: Accession/Order Number: [id number] Exam Date: 02/11/2024 09:39 Report Date: 02/12/2024 [...] M.D. Signed By:02/12/24 0431 DD/ 0429 TD/TT: Tour Conductor: us Generic External Data Provider [facility] Final Result documented in this encounter Visit Diagnoses Not on filedocumented in this encounter Additional Health Concerns Active Problems Noted Date Diagnosed Date OB Reminders 02/11/2024 documented as of this encounter Care Teams Radio Artist Relationship Specialty Start Date End Date Parag Bradley MD [address] [place] [address] PCP - General Family Medicine 08/14/22 Анна Ha NP [address] [place] [address] PCP - [facility] 08/25/23 documented as of this encounter
--- OUTSIDE RECORDS SUMMARY | 2024-08-18 10:57 | XMS_ITS | Encounter Summary ---
Author Organization [facility] Address [address] [place] [address] Care Team Providers Care Machine Filler Name Role Phone Parag Bradley MD Primary Care Provider [phone] Анна Ha NP Unavailable [phone] Encounter Details Date Type Department Care Team (Late st Contact Info) Description 03/04/2024 Abstract [facility] [address] [place] [address] Slava Castro, DO [address] [place], [facility] Social History Tobacco Use Types Packs/Day Years [...] often do you attend chur ch or sikh services? More than 4 times per year 05/19/2023 Do you belong to any clubs o r organizations such as oriental orthodox groups, unions, fraternal or athletic groups, [...] Patient Health Questionnaire-2 Score 1 09/01/2023 [facility]at ional [facility] - Occupational Stress Questionnaire Answer Date [...] Description 09/02/2024 10:40 AM EDT Routine [facility] [address] [facility] [place] [address] Slava Castro DO [address] [place] [address] Dr [place], [place] [address] 09/07/2024 1:00 PM EDT Office Visit [facility] [address] [place] [address] Анна Ha NP [address] [place] [address] 12/15/2024 3:00 PM EDT Office Visit [facility] [address] [facility] [place] [address] Slava Castro, [address] [place] [address] Dr [place], [place] [address] documented as of this encounter Goals Goal Patient Goal Type Associated Problems Recent Progress Patient-Stated? Author Reminders Care Plan OB Reminders No Open Scheduling, Background documented as of this encounter Visit Diagnoses Not on filedocumented in this encounter Additional Health Concerns Active Problems Noted Date Diagnosed Date OB Reminders 02/11/2024 documented as of this encounter Care Teams Machine Filler Relationship Specialty Start Date End Date Parag Bradley MD [address] [place] [address] PCP - General Family Medicine 08/14/22 Анна Ha NP [address] [place] [address] PCP - [facility] 08/25/23 documented as of this encounter
[2024-08-18 11:14] VITALS: BP 126/75; PULSE 69
== END 2024-08-18 11:41 | disposition home or self-care (01) ==
LOC: US 10:54 → FBC 10:57
PROVIDERS: PCP Nurse Practitioner; Visit Provider Physician Assistant
DX: Z34.93 Encounter for supervision of normal pregnancy, unspecified, third trimester (principal); Z86.32 Personal history of gestational diabetes; Z3A.34 34 weeks gestation of pregnancy
CPT/HCPCS: 76818

== ENCOUNTER 2024-08-21 21:00 | Outpatient (OUT) | payer OTHER, SELFPAY ==
--- OUTSIDE RECORDS SUMMARY | 2024-08-21 21:03 | XMS_ITS | CCD ---
Author Organization [facility] ion [facility] Care Team Providers Care Certified Legal Secretary Specialist Name Role Phone AICHHOLZ, RESIDENTIAL DRIVER АННА Primary Care Unavailable PAY, DR LIN Admitting Unavailable PAY, DR LIN Attending Unavailable GISELLE RESTREPO Consulting Unavailable GLORIA, DR ORDAZ Admitting Unavailable GLORIA, DR ORDAZ Attending Unavailable AICHHOLZ, RESIDENTIAL DRIVER АННА Primary Care Unavailable GLORIA, DR ORDAZ Consulting Unavailable AICHHOLZ, RESIDENTIAL DRIVER АННА Admitting Unavailable AICHHOLZ, RESIDENTIAL DRIVER АННА Attending Unavailable AICHHOLZ, RESIDENTIAL DRIVER АННА Primary Care Unavailable AICHHOLZ, RESIDENTIAL DRIVER АННА Consulting Unavailable AICHHOLZ, RESIDENTIAL DRIVER АННА Primary Care Unavailable DON, DR BIRD Admitting Unavailable DON, DR BIRD Attending Unavailable GISELLE RESTREPO Consulting Unavailable PHOEBE ALFARO Consulting Unavailable MD Dar Brody Primary Care Provider [phone] Slava Castro Attending Provider [phone] Parag Bradley MD Primary Care Provider [phone] Aichholange BOLT MAKER, Анна Unavailable Slava Castro DO Attending Provider [phone] Mik Castroy Attending Unavailable Mik Castroy Admitting Unavailable Dar Brody Primary Care Unavailable Slava Castro Attending Unavailable Gloria, Slava Admitting Unavailable VIDYA JACKSON Attending Unavailable VIDYA JACKSON Referring Unavailable GLORIAMIKY Attending Unavailable CELY CARVER Attending Unavailable GLORIA SLAVA Referring Unavailable GLORIA, SLAVA Attending Unavailable AICHHOLZ, АННА Attending Unavailable GLORIA, SLAVA Attending Unavailable GLORIA, SLAVA Attending Unavailable VIDYA JACKSON Attending Unavailable GLORIA, SLAVA Attending Unavailable MEHUL, CELY Attending Unavailable Allergies Allergy Classification Reported Allergen(s) Allergy Type Date of Onset Reaction(s) Facility (20 sources) Other Propensity to adverse reactions 3 [facility] Medications Current Medications Medication Drug Class(es) Dates Sig (Normalized) Sig (Original) aspirin 81 mg delayed release oral tablet (20 sources) Platelet Aggregation Inhibitor, Nonsteroidal Anti-inflammatory Drug take 1 tablet by mouth once daily aspirin 81 MG EC tablet Take 81 mg by mouth Daily Active levonorgestrel 0.424056 mg/hr intrauterine system (2 sources) Progestin, Progestin-containi [...] omeprazole 20 mg delayed release oral capsule (20 sources) Proton Pump Inhibitor Start: 05-10-2024 End: 05-10-2025 take 1 capsule by mouth once before mealtime omeprazole (PriLOSEC) [address] capsule Indications: Heartburn during in second trimester ([facility]) Take 1 capsule (20 mg) [...] 09-01-2023 09-01-2023 Chronic Other aftercare (1 source) 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; Translations: [[facility] HORMONAL CONTRACEPTIVES] Onset: 02-22-2022 Episodic Other aftercare (1 source) 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; Translations: [OTH [facility] CURRENT DRUG THERAPY] Onset: 02-22-2022 Episodic Other [...] 05-26-2023 Chronic Other and delivery including normal (16 sources) ; Translations: [Encounter for supervision of [...] [32 weeks gestation of ] 08-04-2024 Episodic Residual codes; unclassified (2 sources) Gestation period, 34 weeks; Translations: [34 weeks gestation of ] 08-18-2024 Episodic Screening and history of mental health and substance abuse codes (1 source) Personal history of nicotine dependence; Translations: [PERSONAL HISTORY OF NICOTINE DEPEND] Onset: 02-22-2022 Episodic Short gestation; low weight; and growth retardation (2 sources) Zxaqt-cct-unddw baby; Translations: [ small for gestational age, [...] Range Facility OB BPP W NON-STRESS on 08-18-2024 [place] [address] Ultrasound Report Signed Patient: SHREYA MARSHALL MR#: [id number] : 1990 Acct:[id number] Age/Sex: 33 / F ADM Date: 08/18/24 Loc: Attending Dr: Vidya Jackson Ordering Physician: Vidya Jackson Date of Service: 08/18/24 Procedure(s): US OB BPP w non-stress Accession Number(s): [id number] cc: Анна Ha BOLT MAKER; Vidya Jackson [place] [address] Patient Name: SHREYA MARSHALL MRN: [id number] date: 1990 Sex: F Assigned Patient Location: [facility] Current Patient Location: Accession/Order Number: [id number] Exam Date: 08/18/2024 11:47 Report Date: 08/18/2024 11:48 At the request of: VIDYA JACKSON Procedure: US OB BPP w non-stress BIOPHYSICAL PROFILE: CLINICAL INFORMATION: History of gestational diabetes Z86.32 COMPARISON: 08/13/2024 There is a single live intrauterine gestation in cephalic presentation. The reported gestational age is 34 weeks 5 days. The heart rate supualhd450 beats per minute. FINDINGS: TONE: 1 or [...] greater than 2 cm [Y] 2/2 LIVE: 10.6 cm. This is in low-normal range. Total score: 8/8 US/US OB BPP w non-stress IMPRESSION: NORMAL BIOPHYSICAL PROFILE. Impression dictated by: Isatu Auguste M.D. 08/18/2024 11:48 AM Dictation Location: [place] [address] Electronically authenticated by: [id number] Y Date: 08/18/2024 11:48 Dictated By: Isatu Auguste M.D. Signed By: 08/18/24 1151 DD/ 1148 TD/TT: Metal Sprayer: [facility] Radiology, Radiologist, - 08/18/2024 [place] [address] Ultrasound Report Signed Patient: SHREYA MARSHALL MR#: [id number] : 1990 Acct:[id number] Age/Sex: 33 / F ADM Date: 08/18/24 Loc: US Attending Dr: Vidya Jackson Ordering Physician: Vidya Jackson Date of Service: 08/18/24 Procedure(s): US OB BPP w non-stress Accession Number(s): [id number] cc: Анна Ha NP; Vidya Jackson [place] [address] Patient Name: SHREYA MARSHALL MRN: [facility]:[id number] date: 1990 Sex: F Assigned Patient Location: [facility] Current Patient Location: Accession/Order Number: [id number] Exam Date: 08/18/2024 11:47 Report Date: 08/18/2024 11:48 At the request of: VIDYA JACKSON Procedure: US OB BPP w non-stress BIOPHYSICAL PROFILE: CLINICAL INFORMATION: History of gestational diabetes Z86.32 COMPARISON: 08/13/2024 There is a single live intrauterine gestation in cephalic presentation. The reported gestational age is 34 weeks 5 days. The heart rate [id number] beats per minute. FINDINGS: TONE: 1 or [...] greater than 2 cm [Y] 2/2 LIVE: 10.6 cm. This is in low-normal range. Total score: 8/8 US/US OB BPP w non-stress IMPRESSION: NORMAL BIOPHYSICAL PROFILE. Impression dictated by: Isatu Auguste M.D. 08/18/2024 11:48 AM Dictation Location: [place] [address] Electronically authenticated by: [id number] Y Date: 08/18/2024 11:48 Dictated By: Isatu Auguste M.D. Signed By: 08/18/24 1151 DD/ 1148 TD/TT: Metal Sprayer: [facility] Radiology Study observation (narrative) [facility] US OB BPP W NON-STRESS Ordered By: Radiologist Radiology on 08-18-2024 [facility] Work Phone: US OB BPP W NON-STRESS on 08-13-2024 [place] [address] Ultrasound Report Signed Patient: SHREYA MARSHALL MR#: [id number] : 1990 Acct:[id number] Age/Sex: 33 / F ADM Date: 08/13/24 Loc: US Attending Dr: Slava Castro D.O. Ordering Physician: Slava Castro D.O. Date of Service: 08/13/24 Procedure(s): US OB BPP w non-stress Accession Number(s): [id number] cc: Анна Ha BOLT MAKER; Slava Castro D.O. [place] [address] Patient Name: SHREYA MARSHALL MRN: [id number] date: 1990 Sex: F Assigned Patient Location: [facility] Current Patient Location: Accession/Order Number: [id number] Exam Date: 08/13/2024 17:25 Report Date: 08/13/2024 17:27 At the request of: SLAVA CASTRO DO Procedure: US OB BPP w [...] Camacho M.D. 08/13/2024 5:27 PM Dictation Location: [place] [address] Electronically authenticated by: [id number] Y Date: 08/13/2024 17:27 Dictated By: Nilo Camacho M.D. Signed By: 08/13/241728 DD/ 26 TD/TT: Metal Sprayer: [facility] Radiology, Radiologist, MD - 08/13/2024 [place] [address] Ultrasound Report Signed Patient: SHREYA MARSHALL MR#: [id number] : 1990 Acct:[id number] Age/Sex: 33 / F ADM Date: 08/13/24 Loc: US Attending Dr: Slava Castro D.O. Ordering Physician: Slava Castro D.O. Date of Service: 08/13/24 Procedure(s): US OB BPP w non-stress Accession Number(s): [id number] cc: Анна Ha BOLT MAKER; Slava Castro D.O. The [place] [id number] Patient Name: SHREYA MARSHALL MRN: [facility]:[id number] date: 1990 Sex: F Assigned Patient Location: [facility] Current Patient Location: Accession/Order Number: [id number] Exam Date: 08/13/2024 17:25 Report Date: 08/13/2024 17:27 At the request of: SLAVA CASTRO DO Procedure: US OB BPP w [...] Camacho M.D. 08/13/2024 5:27 PM Dictation Location: [place] [address] Electronically authenticated by: [id number] Y Date: 08/13/2024 17:27 Dictated By: Nilo Camacho M.D. Signed By: 08/13/241728 DD/ 26 TD/TT: Metal Sprayer: [facility] Radiology Study observation (narrative) [facility] US OB BPP W NON-STRESS Ordered By: Radiologist Radiology on 08-13-2024 [facility] Work Phone: US OB BPP W NON-STRESS on 08-11-2024 [place] [id number] Ultrasound Report Signed Patient: SHREYA MARSHALL MR#: [id number] : 1990 Acct:[id number] Age/Sex: 33 / F ADM Date: 08/11/24 Loc: [facility] 254-[address]: Vidya Jackson Ordering Physician: Vidya Jackson Date of Service: 08/11/24 Procedure(s): US OB BPP w non-stress Accession Number(s): [id number] cc: Анна Ha BOLT MAKER; Vidya Jackson [address] [address] Patient Name: SHREYA MARSHALL MRN: [id number] date: 1990 Sex: F Assigned Patient Location: [facility] Current Patient Location: [facility] Accession/Order Number: [id number] Exam Date: 08/11/2024 12:18 Report Date: 08/11/2024 [...] Auguste M.D. 08/11/2024 12:20 PM Dictation Location: [place] [address] Electronically authenticated by: [id number] Y Date: 08/11/2024 12:20 Dictated By: Isatu Auguste M.D. Signed By: 08/11/24 1222 DD/ 1220 TD/TT: Metal Sprayer: [facility] Radiology, Radiologist, - 08/11/2024 [place] [address] Ultrasound Report Signed Patient: SHREYA MARSHALL MR#: [id number] : 1990 Acct:[id number] Age/Sex: 33 / F ADM Date: 08/11/24 Loc: [facility] 254-[address]: Vidya Jackson Ordering Physician: Vidya Jackson Date of Service: 08/11/24 Procedure(s): US OB BPP w non-stress Accession Number(s): [id number] cc: Анна Ha NP; Vidya Jackson The [address] [address] Patient Name: SHREYA MARSHALL MRN: [id number] date: 1990 Sex: F Assigned Patient Location: [facility] Current Patient Location: [facility] Accession/Order Number: [id number] Exam Date: 08/11/2024 12:18 Report Date: 08/11/2024 [...] Auguste M.D. 08/11/2024 12:20 PM Dictation Location: [place] [address] Electronically authenticated by: [id number] Y Date: 08/11/2024 12:20 Dictated By: Isatu Auguste M.D. Signed By: 08/11/24 1222 DD/ 1220 TD/TT: Metal Sprayer: [facility] Radiology Study observation (narrative) [facility] US OB BPP W NON-STRESS Ordered By: Radiologist Radiology on 08-11-2024 [facility] Work Phone: US OB BPP W NON-STRESS on 08-04-2024 [place] [address] Ultrasound Report Signed Patient: SHREYA MARSHALL MR#: [id number] : 1990 Acct:[id number] Age/Sex: 33 / F ADM Date: 08/04/24 Loc: [facility] 250-[address]: Vidya Jackson Ordering Physician: Vidya Jackson Date of Service: 08/04/24 Procedure(s): US OB BPP w non-stress Accession Number(s): [id number] cc: Анна Ha NP; Vidya Jackson [place] [address] Patient Name: SHREYA MARSHALL MRN: [facility]:[id number] date: 1990 Sex: F Assigned Patient Location: [facility] Current Patient Location: [facility] Accession/Order Number: [id number] Exam Date: 08/04/2024 11:42 Report Date: 08/04/2024 [...] Auguste M.D. 08/04/2024 11:43 AM Dictation Location: [place] [address] Electronically authenticated by: [id number] Y Date: 08/04/2024 11:43 Dictated By: Isatu Auguste M.D. Signed By: 08/04/24 1146 DD/ 1143 TD/TT: Metal Sprayer: [facility] Radiology, Radiologist, - 08/04/2024 [place] [address] Ultrasound Report Signed Patient: SHREYA MARSHALL MR#: [id number] : 1990 Acct:[id number] Age/Sex: 33 / F ADM Date: 08/04/24 Loc: [facility] 250- Attending Dr: Vidya Jackson Ordering Physician: Vidya Jackson Date of Service: 08/04/24 Procedure(s): US OB BPP w non-stress Accession Number(s): [id number] cc: Анна Ha BOLT MAKER; Vidya Jackson [place] [address] Patient Name: SHREYA MARSHALL MRN: [id number] date: 1990 Sex: F Assigned Patient Location: [facility] Current Patient Location: [facility] Accession/Order Number: [id number] Exam Date: 08/04/2024 11:42 Report Date: 08/04/2024 [...] Auguste M.D. 08/04/2024 11:43 AM Dictation Location: [place] [address] Electronically authenticated by: [id number] Y Date: 08/04/2024 11:43 Dictated By: Isatu Auguste M.D. Signed By: 08/04/24 1146 DD/ 1143 TD/TT: Metal Sprayer: [facility] Radiology Study observation (narrative) [facility] OB BPP W NON-STRESS Ordered By: Radiologist Radiology on 08-04-2024 [facility] Work Phone: Urinalysis macro (dipstick) panel (U)on 08-04-2024 Bilirubin, UA Negative Negative - 4(70) +++ mg/dL [facility] Blood, UA Positive Negative - 50 Richy/mcL [facility] Comment on above: trace-intact Clarity, UA Clear [facility] Color, UA Yellow [facility] Glucose, UA Negative Negative - 1999(110) ++++ mg/dL [facility] Interpretation and review of laboratory results Abnormal [facility] Ketones, UA Negative Negative - 160(16) ++++ mg/dL [facility] Leukocytes, UA Negative Negative - 500+++ Tano/mcL [facility] Nitrite, UA Negative Negative - Positive [facility] pH, UA 7 5 - 9 [facility] Protein, UA Negative Negative - 1999(20) ++++ mg/dL [facility] Spec Grav, UA 1.01 1 - 1.03 [facility] Urobilinogen, UA 0.2 0.2 - 12 mg/dL [facility] OB GROWTHon 07-28-2024 [place] [address] Ultrasound Report Signed Patient: SHREYA MARSHALL MR#: [id number] : 1990 Acct:[id number] Age/Sex: 33 / F ADM Date: 07/28/24 Loc: US Attending Dr: Slava Castro D.O. Ordering Physician: Slava Castro D.O. Date of Service: 07/28/24 Procedure(s): US OB growth Accession Number(s): [id number] cc: Анна Ha NP; Slava Castro D.O. [address] [address] Patient Name: SHREYA MARSHALL MRN: [facility]:[id number] date: 1990 Sex: F Assigned Patient Location: Current Patient Location: Accession/Order Number: [id number] Exam Date: 07/28/2024 10:44 Report Date: 07/28/2024 10:48 At the request of: SLAVA CASTRO DO Procedure: US OB growth ULTRASOUND [...] Auguste M.D. 07/28/2024 10:48 AM Dictation Location: [place] [address] Electronically authenticated by: [id number] Y Date: 07/28/2024 10:48 Dictated By: Isatu Auguste M.D. Signed By: 07/28/24 1051 DD/ 1048 TD/TT: Metal Sprayer: [facility] Radiology, Radiologist, MD - 07/28/2024 [place] [address] Ultrasound Report Signed Patient: SHREYA MARSHALL MR#: [id number] : 1990 Acct:[id number] Age/Sex: 33 / F ADM Date: 07/28/24 Loc: US Attending Dr: Slava Castro D.O. Ordering Physician: Slava Castro D.O. Date of Service: 07/28/24 Procedure(s): US OB growth Accession Number(s): [id number] cc: Анна Ha NP; Slava Castro D.O. [address] [address] Patient Name: SHREYA MARSHALL MRN: [id number] date: 1990 Sex: F Assigned Patient Location: US Current Patient Location: US Accession/Order Number: [id number] Exam Date: 07/28/2024 10:44 Report Date: 07/28/2024 10:48 At the request of: SLAVA CASTRO DO Procedure: US OB growth ULTRASOUND [...] Auguste M.D. 07/28/2024 10:48 AM Dictation Location: [place] [address] Electronically authenticated by: [id number] Y Date: 07/28/2024 10:48 Dictated By: Isatu Auguste M.D. Signed By: 07/28/24 1051 DD/ 1048 TD/TT: Metal Sprayer: [facility] Radiology Study observation (narrative) [facility] OB GROWTHOrdered By: Tatiana ologaneesh Radiology on 07-28-2024 [facility] Work Phone: GLUCOSE TOLERANCE 3 HOURon 0 07-23-2024 GLUCOSE TOLERANCE 3 HOUR High mg/dL [facility] Comment on above: GLU FAST 97H (<95) C ol: 07/23/24 0909 GLU 1HR 151 (<180) Col: 07/23/24 1013 GLU 2HR 151 (<155) Col: 07/23/24 1113 GLU 3HR 123 (<140) Col: 07/23/24 1213 Interpretation and review of laboratory results Abnormal [facility] US OB FOLLOW UP TRANSABDOMIN AL APPROACHon [...] II, MD, PHD at 07-Jul-2024 10:00:26 AM [facility] Normal Not Available Comment on above: Order Comment: US OB SCAN FOR GROWTH Estimated Date of Delivery: 09/24/24 Gestational Age as of 06/16/2024: 25w5d Urinalysis macro (dipstick) panel (U)on 07-06-2024 Bilirubin, UA Negative Negative - 4(70) +++ mg/dL [facility] Blood, UA Negative Negative - 50 Richy/mcL [facility] Clarity, UA Clear [facility] Color, UA Yellow [facility] Glucose, UA Negative Negative - 1999(110) ++++ mg/dL [facility] Interpretation and review of laboratory results Normal [facility] Ketones, UA Negative Negative - 160(16) ++++ mg/dL [facility] Leukocytes, UA Negative Negative - 500+++ Tano/mcL [facility] Nitrite, UA Negative Negative - Positive [facility] pH, UA 7 5 - 9 [facility] Protein, UA Negative Negative - 1999(20) ++++ mg/dL [facility] Spec Grav, UA 1.015 1 - 1.03 [facility] Urobilinogen, UA 0.2 0.2 - 12 mg/dL [facility] ALL CBC WITH AUTO DIFFon BASOPHILS ABSOLUTE AUTO 0 [facility] Basophils/100 WBC (Bld) 0.3 % 0.2 - 2.0 % [facility] Eosinophils/100 WBC (Bld) 0.3 % Low 0.9 - 7.0 % [facility] Erythrocyte distribution width (RBC) [Ratio] 12.9 % 11.0 - 15.0 % [facility] Hematocrit (Bld) [Volume fraction] 35.5 % Low 36.0 - 48.0 % [facility] Hemoglobin (Bld) [Mass/Vol] 11.6 g/dL Low 12.0 - 16.0 g/dL [facility] IMMATURE GRANULOCYTES ABS AUTO 0.03 [facility] Immature granulocytes/100 WBC (Bld) 0.4 % 0.0 - 0.5 % [facility] Interpretation and review of laboratory results Abnormal [facility] LYMPHOCYTES ABSOLUTE AUTO 1.7 [facility] Lymphocytes/100 WBC (Bld) 22.3 % 20.5 - 60.0 % [facility] MCH (RBC) [Entitic mass] 30.7 pg 26.7 - 34.0 pg [facility] MCHC (RBC) [Mass/Vol] 32.7 g/dL 29.9 - 35.2 g/dL [facility] MCV (RBC) [Entitic vol] 93.9 fL 81.0 - 99.0 fL [facility] MONOCYTES ABSOLUTE AUTO 0.4 [facility] Monocytes/100 WBC (Bld) 5.5 % 1.7 - 12.0 % [facility] NEUTROPHILS ABSOLUTE AUTO 5.3 [facility] Neutrophils/100 WBC (Bld) 71.2 % 43.0 - 75.0 % [facility] Platelet mean volume (Bld) [Entitic vol] 9.6 fL 9.5 - 13.5 fL [facility] TBH EO # 0 [facility] PLT 218 [facility] RBC 3.78 Low [facility] WBC 7.4 [facility] RECURRENT VAGINITIS (HTRX)on 06-17-2024 ATOPOBIUM VAGINAE 0 [facility] ATOPOBIUM VAGINAE Not detected [facility] BVAB 2,3 (BACTERIAL VAGINOSIS ASSOCIATED BACTERIA 2, 3); MOBILUNCUS SPP 0 [facility] BVAB 2,3 (BACTERIAL VAGINOSIS ASSOCIATED BACTERIA 2, 3); MOBILUNCUS SPP Not detected [facility] RANJANA ALBICANS, PARAPSILOSIS, TROPICALIS 0 [facility] RANJANA ALBICANS, PARAPSILOSIS, TROPICALIS Not detected [facility] RANJANA GLABRATA 0 [facility] RANJANA GLABRATA Not detected [facility] RANJANA KRUSEI 0 [facility] RANJANA KRUSEI Not detected [facility] CHLAMYDIA TRACHOMATIS 0 [facility] CHLAMYDIA TRACHOMATIS Not detected [facility] GARDNERELLA VAGINALIS 0 [facility] GARDNERELLA VAGINALIS Not detected [facility] MEGASPHAERA (TYPES 1, 2) 0 [facility] MEGASPHAERA (TYPES 1, 2) Not detected [facility] MYCOPLASMA GENITALIUM 0 [facility] MYCOPLASMA GENITALIUM Not detected [facility] NEISSERIA GONORRHOEAE 0 [facility] NEISSERIA GONORRHOEAE Not detected [facility] TRICHOMONAS VAGINALIS 0 [facility] TRICHOMONAS VAGINALIS Not detected [facility] Urinalysis macro (dipstick) panel (U)on 06-16-2024 Bilirubin, UA Negative Negative - 4(70) +++ mg/dL [facility] Blood, UA Negative Negative - 50 Richy/mcL [facility] Clarity, UA Clear [facility] Color, UA Yellow [facility] Glucose, UA Negative Negative - 2000(110) ++++ mg/dL [facility] Interpretation and review of laboratory results Normal [facility] Ketones, UA Negative Negative - 160(16) ++++ mg/dL [facility] Leukocytes, UA Negative Negative - 500+++ Tano/mcL [facility] Nitrite, UA Negative Negative - Positive [facility] pH, UA 6 5 - 9 [facility] Protein, UA Negative Negative - 1999(20) ++++ mg/dL [facility] Spec Grav, UA 1.01 1 - 1.03 [facility] Urobilinogen, UA 0.2 0.2 - 12 mg/dL [facility] US OB 14+ WEEKS ANATOMY SCAN [...] II, MD, PHD at 11-May-2024 12:36:27 AM [facility] Normal Not Available Comment on above: Order Comment: US OB ANATOMY SINGLE W US OB CERVICAL LENGTH Estimated Date of Delivery: 09/24/24 Gestational Age as of 04/07/2024: 15w5d GLUCOSE 1 HOURon 04-10-2024 Glucose [Mass/Vol] 124 mg/dL NINF - 13 0 mg/dL [facility] Urinalysis macro (dipstick) panel (U)on 04-07-2024 Bilirubin, UA Negative Negative - 4(70) +++ mg/dL [facility] Blood, UA Positive Negative - 50 Richy/mcL [facility] Comment on above: trace Clarity, UA Clear [facility] Color, UA Yellow [facility] Glucose, UA Negative Negative - 1999(110) ++++ mg/dL [facility] Interpretation and review of laboratory results Abnormal [facility] Ketones, UA Positive Negative - 160(16) ++++ mg/dL [facility] Comment on above: 15 Leukocytes, UA Negative Negative - 500+++ Tano/mcL [facility] Nitrite, UA Negative Negative - Positive [facility] pH, UA 7 5 - 9 [facility] Protein, UA Negative Negative - 1999(20) ++++ mg/dL [facility] Spec Grav, UA 1.02 1 - 1.03 [facility] Urobilinogen, UA 1.0 0.2 - 12 mg/dL [facility] Urinalysis macro (dipstick) panel (U)on 03-10-2024 Bilirubin, UA Negative Negative - 4(70) +++ mg/dL [facility] Blood, UA Positive Negative - 50 Richy/mcL [facility] Comment on above: trace-intact Clarity, UA Clear [facility] Color, UA Yellow [facility] Glucose, UA Negative Negative - 1999(110) ++++ mg/dL [facility] Interpretation and review of laboratory results Abnormal [facility] Ketones, UA Negative Negative - 160(16) ++++ mg/dL [facility] Leukocytes, UA Negative Negative - 500+++ Tano/mcL [facility] Nitrite, UA Negative Negative - Positive [facility] pH, UA 6.5 5 - 9 [facility] Protein, UA Negative Negative - 1999(20) ++++ mg/dL [facility] Spec Grav, UA 1.01 1 - 1.03 [facility] Urobilinogen, UA 0.2 0.2 - 12 mg/dL [facility] BOX TESTon 02-27-2024 BOX TEST SENT OUT [facility] BOX1 [facility] BOX2 02/27/24 [facility] BOX [facility] Urine Cultureon 02-27-2024 Bacteria identified Cx Nom (U) No Growth 2 Days PERFORMED BY: [place] [address] PATHOLOGIST RN L AND D SHEREE MCCARTHY M.D. Normal [facility] Comment on above: Performed By: #### C UU #### [address] HCG ( test) Ql (U)o n 02-11-2024 Interpretation and review of laboratory results Abnormal [facility] Preg Test, Ur Positive Negative [facility] Urinalysis macro (dipstick) panel (U)on 02-11-2024 Bilirubin, UA Positive Negative - 4(70) +++ mg/dL [facility] Comment on above: small Blood, UA Positive Negative - 50 Richy/mcL [facility] Comment on above: trace-lysed Clarity, UA Clear [facility] Color, UA Yellow [facility] Glucose, UA Negative Negative - 1999(110) ++++ mg/dL [facility] Interpretation and review of laboratory results Abnormal [facility] Ketones, UA Positive Negative - 160(16) ++++ mg/dL [facility] Comment on above: trace Leukocytes, UA Trace Negative - 500+++ Tano/mcL [facility] Nitrite, UA Negative Negative - Positive [facility] pH, UA 6 5 - 9 [facility] Protein, UA Positive Negative - 1999(20) ++++ mg/dL [facility] Comment on above: 100 Spec Grav, UA 1.03 1 - 1.03 [facility] Urobilinogen, UA 0.2 0.2 - 12 mg/dL [facility]H PREG QUANT HCGon 024 HCG QUANTITATIVE 65960 mIU/mL [facility] Comment on above: 5-50 0.2-1 WEEK 50-500 1-2 WEEKS 100-5,000 2-3 WEEKS 500-10,000 3-4 WEEKS 1,000-50,000 4-5 WEEKS 10,000-100,000 5-6 WEEKS 15,000-200,000 6-8 WEEKS 10,000-100,000 2-3 MONTHS [facility] PREG QUANT HCGon 024 HCG QUANTITATIVE 57996 mIU/mL [facility] Comment on above: 5-50 0.2-1 WEEK 50-500 1-2 WEEKS 100-5,000 2-3 WEEKS 500-10,000 3-4 WEEKS 1,000-50,000 4-5 WEEKS 10,000-100,000 5-6 WEEKS 15,000-200,000 6-8 WEEKS 10,000-100,000 2-3 MONTHS [facility] PREG QUANT HCGon 024 HCG QUANTITATIVE 05069 mIU/mL [facility] Comment on above: 5-50 0.2-1 WEEK 50-500 1-2 WEEKS 100-5,000 2-3 WEEKS 500-10,000 3-4 WEEKS 1,000-50,000 4-5 WEEKS 10,000-100,000 5-6 WEEKS 15,000-200,000 6-8 WEEKS 10,000-100,000 2-3 MONTHS [facility] PREG QUANT HCGon 024 HCG QUANTITATIVE 70196 mIU/mL [facility] Comment on above: 5-50 0.2-1 WEEK 50-500 1-2 WEEKS 100-5,000 2-3 WEEKS 500-10,000 3-4 WEEKS 1,000-50,000 4-5 WEEKS 10,000-100,000 5-6 WEEKS 15,000-200,000 6-8 WEEKS 10,000-100,000 2-3 MONTHS [facility] PREG QUANT HCGon 024 HCG QUANTITATIVE 8911 mIU/mL [facility] Comment on above: 5-50 0.2-1 WEEK 50-500 1-2 WEEKS 100-5,000 2-3 WEEKS 500-10,000 3-4 WEEKS 1,000-50,000 4-5 WEEKS 10,000-100,000 5-6 WEEKS 15,000-200,000 6-8 WEEKS 10,000-100,000 2-3 MONTHS [facility] PREG QUANT HCGon 01-22-2 024 HCG QUANTITATIVE 4641 mIU/mL [facility] Comment on above: 5-50 0.2-1 WEEK 50-500 1-2 WEEKS 100-5,000 2-3 WEEKS 500-10,000 3-4 WEEKS 1,000-50,000 4-5 WEEKS 10,000-100,000 5-6 WEEKS 15,000-200,000 6-8 WEEKS 10,000-100,000 2-3 MONTHS [facility] PREG QUANT HCGon 01-20- 024 HCG QUANTITATIVE 2241 mIU/mL [facility] Comment on above: 5-50 0.2-1 WEEK 50-500 1-2 WEEKS 100-5,000 2-3 WEEKS 500-10,000 3-4 WEEKS 1,000-50,000 4-5 WEEKS 10,000-100,000 5-6 WEEKS 15,000-200,000 6-8 WEEKS 10,000-100,000 2-3 MONTHS [facility] PREG QUANT HCGon 01-18- 024 HCG QUANTITATIVE 884 mIU/mL [facility] Comment on above: 5-50 0.2-1 WEEK 50-500 1-2 WEEKS 100-5,000 2-3 WEEKS 500-10,000 3-4 WEEKS 1,000-50,000 4-5 WEEKS 10,000-100,000 5-6 WEEKS 15,000-200,000 6-8 WEEKS 10,000-100,000 2-3 MONTHS [facility] IGP,APTIMA HPV,AGE GDLNon AGE GDLN ACOG TESTING Note . [facility] Comment on above: TESTS RESULT FLAG UN ITS REF RANGE LAB Clinician Provided Cytology Information Source.............Cervix;Endocervix No. of containers..01 ThinPrep Vial Age Yung ANTON Sylvia... 28 FLAG LEGEND: L-Low Normal,H-High Normal,LL-Alert Low,HH-Alert High <-Panic Low,>-Panic High,A-Abnormal,AA-Critical Abnormal Performed at: 01 =[address] [address] Amber Tilley MD, HPV APTIMA Negative Negative [facility] Comment on above: This nucleic acid am plification test detects fourteen high- risk HPV types (16,18,31,33,35,39,45,51,52,56,58,59,66,68) without differentiation. Performed at: =[address] [id number] Laser Set Up Operator: Amber Tilley MD, Phone: [phone] Performed at: [address] [id number] Laser Set Up Operator: Amber Tilley MD, Phone: [phone] IGP, APTIMA HPV, RFX 16/18,45 Note . [facility] Comment on above: TESTS RESULT FLAG U NITS REF RANGE LAB DIAGNOSIS: 02 NEGATIVE FOR INTRAEPITHELIAL LESION OR MALIGNANCY. REACTIVE CELLULAR CHANGES AND/OR REPAIR ARE PRESENT. Specimen adequacy: 02 Satisfactory for evaluation. Endocervical and/or squamous metaplastic cells (endocervical component) are present. Performed by: Peggy Gandhi, Rubber Tubing Backer (ASCP) Electronically si... Divya Hoffman MD, Pathologist [...] Low,>-Panic High,A-Abnormal,AA-Critical Abnormal Performed at: [address] [address] Amber Tilley MD, BRUSH-SPATULA CERVIX ENDOCERVIX CLINIS[facility] Cytology Cervical or vaginal smear or scraping studyon 12-10-2023 [facility] HCG ( test) Ql (U)o n 12-10-2023 Interpretation and review of laboratory results Normal [facility] Preg Test, Ur Negative [facility] Cameron 06-30-2023 L Specimen: [id number] Received: 07/01/23 Status: WEN Jadiel Num: [id number] Spec Type: Surgical Subm Dr: Slava Castro Tissues: A Products of Conception - Spontaneous or Missed (POC) Procedures: HE/3, Gross/Micro L4 Age/ Patient Sex Location Account Attending Physician RolandoShreya Mel 32/F LABELL [id number] Slava Castro SPEC NUM: [id number] RECD: 07/01/23 STATUS: WEN DUVALL NUM: [id number] [place]: 06/30/23 [facility] DR: Slava Castro ENTERED: 07/01/23 [facility] DR: Rosey,Lab SPEC TYPE: Surgical [...] spongy harman tissue consistent with villous tissue. Host sections are submitted in A1?A3 to include the villous tissue in A1. Clinical history: Missed TW ---- Specimen: [id number] Received: 07/01/23 Status: WEN [place] Num: [id number] Spec Type: Surgical Subm Dr: Slava Castro Tissues: A Products of Conception - Spontaneous or Missed (POC) Procedures: HE/3, Gross/Micro L4 ---- Patient: Shreya Marshall [id number] (Continued) ---- Specimen: [id number] Received: 07/01/23 (Continued) Signed (signature on file) Shen Virgen MD 07/02/23 1859 ---- Specimen: [id number] Received: 07/01/23 Status: WEN [place] Num: [id number] Spec Type: Surgical Subm Dr: Slava Castro Tissues: A Products of Conception - Spontaneous or Missed (POC) Procedures: HE/3, Gross/Maksim L4 ---- Patient: Shreya Marshall [id number] (Continued) ---- Specimen: [id number] Received: 07/01/23 (Continued) CPT Codes 80651 ---- ---- Specimen: [id number] Received: 07/01/23 Status: WEN [place] Num: [id number] Spec Type: Surgical Subm Dr: Slava Castro Tissues: A Products of Conception - Spontaneous or Missed (POC) Procedures: SUSY/Meghan Bliss/Maksim L4 ---- Patient: Shreya Marshall [id number] (Continued) ---- Signed (signature on file) Chin-Rishi Virgen MD 07/02/23 1859 Normal [facility] Covid-19 PCR ([facility])on 01-25 SARS-CoV-2 (COVID-19) RNA JUAN+probe Ql (Unsp spec) Not detected Normal NOT DETECTED [facility] Comment on above: Result Comment: This test is not yet approved or cleared by the [place] FDA. When there are no FDA-approved or cleared tests available, and other criteria are met, FDA can make tests available under an emergency access mechanism called an Emergency Use Authorization (EUA). The EUA for this test is supported by the [place] of Health and Human Service's (HHS's) declaration [...] consistent with SARS-CoV-2. Performed By: #### C VDTBH #### [facility] [address] [place] [address] Dr. Luis Virgen INFLUENZA A AND B AGon 02-20 INFLUBNEG SEE BELOW Normal [facility] Comment on above: Result Comment: Nega tive for Flu B protein antigen. Infection due to Flu B cannot be ruled out. Flu B antigen in the sample may be below the detection limit of the test. Performed By: #### I NFLUAB #### [facility] [address] [place] [address] Dr. Luis Virgen INFLUENZA A AG Positive Abnormal NEGATIVE SEE COMMENT [facility] Comment on above: Performed By: #### I NFLUAB #### [facility] [address] [address] [address] Luis Virgen INFLUENZA B AG Negative Normal NEGATIVE SEE COMMENT [facility] Comment on above: Performed By: #### I NFLUAB #### [facility] [address] [address] [address] Luis Virgen XR CHEST 1 Von [...] to 63on 11-13-2021 . . Normal [facility] Comment on above: Result Comment: Perf ormed at: WB Performed By: #### [id number] #### [facility] [address] [place] [address] Dr. Luis Virgen Age Gdln ACOG Testing 30-65 Normal [facility] Comment on above: Performed By: #### [id number] #### [facility] [address] [place] [address] Dr. Luis Virgen DIAGNOSIS: Comment Normal [facility] Comment on above: Result Comment: NEGA TIVE FOR INTRAEPITHELIAL LESION OR MALIGNANCY. Performed at: WB Performed By: #### [id number] #### [facility] [address] [address] [address] Luis Virgen HPV Aptima Negative Normal Negative [facility] Comment on above: Result Comment: This nucleic acid amplification test detects fourteen high-risk HPV types (16,18,31,33,35,39,45,51,52,56,58,59,66,68) without differentiation. Performed at: =G Performed By: #### [id number] #### [facility] [address] [place] [address] Dr. Luis Virgen Methodology: Comment Normal [facility] Comment on above: Result Comment: This liquid based ThinPrep(R) pap test was screened with the use of an image guided system. Performed at: WB Performed By: #### [id number] #### [facility] [address] [place] [address] Dr. Luis Virgen Note: Comment Normal [facility] [...] Performed at: WB Performed By: #### [id number] #### [facility] [address] [place] [address] Dr. Luis Virgen Performed by: Comment Normal [facility] Comment on above: Result Comment: Maureen Del Cid Rubber Tubing Backer (ASCP) Performed at: WB Performed By: #### [id number] #### [facility] [address] [place] [address] Dr. Luis Virgen Specimen adequacy: Comment Normal [facility] Comment on above: Result Comment: Sati sfactory for evaluation. Endocervical and/or squamous metaplastic cells (endocervical component) are present. Performed at: WB Performed By: #### 4 [id number] #### [facility] [address] [place] [address] Dr. Luis Virgen URon 08-20-2021 , QUAL Negative Normal NEGATIVE [facility] Comment on above: Performed By: #### P REGU #### [facility] [address] [place] [address] Dr. Luis Virgen CBC AUTO DIFFon 08-06-2021 BASO # 0.0 103/ul Normal 0.0-0.1 [facility] Comment on above: Performed By: #### C BC #### [facility] [address] [place] [address] Dr. Luis Virgen Basophils/100 WBC (Bld) 0.3 % Normal 0.2-2.0 [facility] Comment on above: Performed By: #### C BC #### [facility] [address] [place] [address] Dr. Luis Virgen EO # 0.0 103/ul Normal 0.0-0.7 [facility] Comment on above: Performed By: #### C BC #### [facility] [address] [place] [address] Dr. Luis Virgen Eosinophils/100 WBC (Bld) 0.3 % Critically low 0.9-7.0 [facility] Comment on above: Performed By: #### C BC #### [facility] [address] [place] [address] Dr. Luis Virgen Erythrocyte distribution width (RBC) [Ratio] 12.6 % Normal 11.0-15.0 [facility] Comment on above: Performed By: #### C BC #### [facility] [address] [place] [address] Dr. Luis Virgen Hematocrit (Bld) [Volume fraction] 41.5 % Normal 36.0-48.0 [facility] Comment on above: Performed By: #### C BC #### [facility] [address] [place] [address] Dr. Luis Virgen Hemoglobin (Bld) [Mass/Vol] 13.5 g/dL Normal 12.0-16.0 [facility] Comment on above: Performed By: #### C BC #### [facility] [address] [place] [address] Dr. Luis Virgen IG # 0.03 10e3/ul Normal 0.00-0.03 [facility] Comment on above: Performed By: #### C BC #### [facility] [address] [place] [address] Dr. Luis Virgen IG % 0.4 % Normal 0.0-0.5 [facility] Comment on above: Performed By: #### C BC #### [facility] [address] [place] [address] Dr. Luis Virgen LYMPH # 2.4 103/ul Normal 1.2-3.8 [facility] Comment on above: Performed By: #### C BC #### [facility] [address] [place] [address] Dr. Luis Virgen Lymphocytes/100 WBC (Bld) 31.8 % Normal 20.5-60.0 [facility] Comment on above: Performed By: #### C BC #### [facility] [address] [place] [address] Dr. Luis Virgen MANUAL DIFF REQ NO Normal [facility] Comment on above: Performed By: #### C BC #### [facility] [address] [place] [address] Dr. Luis Virgen MCH (RBC) [Entitic mass] 30.5 pg Normal 26.7-34.0 [facility] Comment on above: Performed By: #### C BC #### [facility] [address] [place] [address] Dr. Luis Virgen MCHC (RBC) [Mass/Vol] 32.5 g/dL Normal 29.9-35.2 [facility] Comment on above: Performed By: #### C BC #### [facility] [address] [place] [address] Dr. Luis Virgen MCV (RBC) [Entitic vol] 93.9 fL Normal 81.0-99.0 [facility] Comment on above: Performed By: #### C BC #### [facility] [address] [place] [address] Dr. Luis Virgen MONO # 0.6 103/ul Normal 0.3-0.8 [facility] Comment on above: Performed By: #### C BC #### [facility] [address] [place] [address] Dr. Luis Virgen Monocytes/100 WBC (Bld) 7.4 % Normal 1.7-12.0 [facility] Comment on above: Performed By: #### C BC #### [facility] [address] [place] [address] Dr. Luis Virgen NEUT # 4.5 103/ul Normal 1.4-6.5 [facility] Comment on above: Performed By: #### C BC #### [facility] [address] [place] [address] Dr. Luis Virgen Neutrophils/100 WBC (Bld) 59.8 % Normal 43.0-75.0 [facility] Comment on above: Performed By: #### C BC #### [facility] [address] [place] [address] Dr. Luis Virgen Platelet mean volume (Bld) [Entitic vol] 10.0 fL Normal 9.5-13.5 [facility] Comment on above: Performed By: #### C BC #### [facility] [address] [place] [address] Dr. Luis Virgen PLT 337 103/ul Normal 150-450 [facility] Comment on above: Performed By: #### C BC #### [facility] [address] [place] [address] Dr. Luis Virgen RBC 4.42 106/ul Normal 4.20-5.40 [facility] Comment on above: Performed By: #### C BC #### [facility] [address] [place] [address] Dr. Luis Virgen WBC 7.6 103/ul Normal 4.0-11.0 [facility] Comment on above: Performed By: #### C BC #### [facility] [address] [place] [address] Dr. Luis Virgen FREE T4on 08-06-2021 Free T4 [Mass/Vol] 0.91 ng/dL Normal 0.76-1.46 [facility] Comment on above: Performed By: #### F T4 #### [facility] [address] [place] [address] Dr. Luis Virgen LIPID PROFILEon 08-06-2021 CHOL-HDL RATIO NORM SEE BELOW Normal [facility] Comment on above: Result Comment: 3.3 - 4.4 LOW RISK 4.4 - 7.1 AVERAGE RISK 7.1 - 11.0 MODERATE RISK >11.0 HIGH RISK Performed By: #### C MP, TSH, LIPID #### [facility] [address] [place] [address] Dr. Luis Virgen Cholesterol [Mass/Vol] 154 mg/dL Normal <=200 [facility] Comment on above: Performed By: #### C MP, TSH, LIPID #### [facility] [address] [address] [address] Luis Virgen Cholesterol in HDL [Mass/Vol] 35 mg/dL Critically low 40-60 [facility] Comment on above: Performed By: #### C MP, TSH, LIPID #### [facility] [address] [address] [address] Luis Virgen Cholesterol in LDL [Mass/Vol] 80.8 mg/dL Normal [facility] Comment on above: Performed By: #### C MP, TSH, LIPID #### [facility] [address] [address] [address] Luis Virgen Cholesterol.total/C holesterol in HDL [Mass ratio] 4.4 {ratio} Normal [facility] Comment on above: Performed By: #### C MP, TSH, LIPID #### [facility] [address] [address] [address] Luis Virgen HDL NORMAL > or = 60 mg/dl - LO W CARDIOVASCULAR RISK <40 mg/dl - HIGH CARDIOVASCULAR RISK Normal [facility] Comment on above: Performed By: #### C MP, TSH, LIPID #### [facility] [address] [address] [address] Luis Virgen LDL CALC NORMAL SEE BELOW Normal [facility] Comment on above: Result Comment: <100 mg/dl OPTIMAL 100 - 129 mg/dl NEAR OR ABOVE OPTIMAL 130 - 159 mg/dl BORDERLINE HIGH 160 - 189 mg/dl HIGH >190 mg/dl VERY HIGH Performed By: #### C MP, TSH, LIPID #### [facility] [address] [address] [address] Luis Virgen Triglyceride [Mass/Vol] 191 mg/dL Critically high <=150 [facility] Comment on above: Performed By: #### C MP, TSH, LIPID #### [facility] [address] [address] [address] Luis Virgen VLDL CALC 38.2 mg/dL Normal [facility] Comment on above: Performed By: #### C MP, TSH, LIPID #### [facility] [address] [address] [address] Luis Virgen PROF 14(COMP METB)on 022 Albumin [Mass/Vol] 4.1 g/dL Normal 3.4-5.0 [facility] Comment on above: Performed By: #### C MP, TSH, LIPID #### [facility] [address] [address] [address] Luis Virgen Albumin/Globulin [Mass ratio] 1.2 {ratio} Normal [facility] Comment on above: Performed By: #### C MP, TSH, LIPID #### [facility] [address] [address] [address] Luis Virgen ALP [Catalytic activity/Vol] 73 U/L Normal 46-116 [facility] Comment on above: Performed By: #### C MP, TSH, LIPID #### [facility] [address] [address] [address] Luis Virgen ALT [Catalytic activity/Vol] 24 U/L Normal 14-59 [facility] Comment on above: Performed By: #### C MP, TSH, LIPID #### [facility] [address] [place] [address] Dr. Luis Virgen Anion gap [Moles/Vol] 13.2 mmol/L Normal [facility] Comment on above: Performed By: #### C MP, TSH, LIPID #### [facility] [address] [address] [address] Luis Virgen AST [Catalytic activity/Vol] 11 U/L Critically low 15-37 [facility] Comment on above: Performed By: #### C MP, TSH, LIPID #### [facility] [address] [place] [address] Dr. Luis Virgen Bilirubin [Mass/Vol] 0.8 mg/dL Normal 0.2-1.0 [facility] Comment on above: Performed By: #### C MP, TSH, LIPID #### [facility] [address] [place] [address] Dr. Luis Virgen Calcium [Mass/Vol] 8.9 mg/dL Normal 8.5-10.1 [facility] Comment on above: Performed By: #### C MP, TSH, LIPID #### [facility] [address] [address] [address] Luis Virgen Chloride [Moles/Vol] 103 mmol/L Normal 98-107 [facility] Comment on above: Performed By: #### C MP, TSH, LIPID #### [facility] [address] [address] [address] Luis Virgen CO2 [Moles/Vol] 27.5 mmol/L Normal 21.0-32.0 [facility] Comment on above: Performed By: #### C MP, TSH, LIPID #### [facility] [address] [place] [address] Dr. Luis Virgen Creatinine [Mass/Vol] 0.71 mg/dL Normal 0.55-1.02 [facility] Comment on above: Performed By: #### C MP, TSH, LIPID #### [facility] [address] [address] [address] Luis Virgen EGFR-AF PUERTO RICAN >60 Normal >=60 [facility] Comment on above: Performed By: #### C MP, TSH, LIPID #### [facility] [address] [place] [address] Dr. Luis Virgen EGFR-NON AF PUERTO RICAN >60 Normal >=60 [facility] Comment on above: Performed By: #### C MP, TSH, LIPID #### [facility] [address] [place] [address] Dr. Luis Virgen Globulin (S) [Mass/Vol] 3.5 g/dL Normal [facility] Comment on above: Performed By: #### C MP, TSH, LIPID #### [facility] [address] [address] [address] Luis Virgen Glucose [Mass/Vol] 101 mg/dL Normal 74-106 [facility] Comment on above: Performed By: #### C MP, TSH, LIPID #### [facility] [address] [address] [address] Luis Virgen Potassium [Moles/Vol] 4.7 mmol/L Normal 3.5-5.1 [facility] Comment on above: Performed By: #### C MP, TSH, LIPID #### [facility] [address] [place] [address] Dr. Luis Virgen Protein [Mass/Vol] 7.6 g/dL Normal 6.4-8.2 [facility] Comment on above: Performed By: #### C MP, TSH, LIPID #### [facility] [address] [place] [address] Dr. Luis Virgen Sodium [Moles/Vol] 139 mmol/L Normal 136-145 [facility] Comment on above: Performed By: #### C MP, TSH, LIPID #### [facility] [address] [place] [address] Dr. Luis Virgen Urea nitrogen [Mass/Vol] 9.0 mg/dL Normal 7.0-18.0 [facility] Comment on above: Performed By: #### C MP, TSH, LIPID #### [facility] [address] [place] [address] Dr. Luis Virgen Urea nitrogen/Creatinine [Mass ratio] 12.7 mg/mg Normal [facility] Comment on above: Performed By: #### C MP, TSH, LIPID #### [facility] [address] [place] [address] Dr. Luis Virgen TSHon 08-06-2021 TSH 0.924 uIU/mL Normal 0.358-3.740 [facility] Comment on above: Performed By: #### C MP, TSH, LIPID #### [facility] [address] [place] [address] Dr. Luis Virgen TSH RANGE SEE BELOW Normal [facility] Comment on above: Result Comment: <0.3 4 UIU/ml HYPERTHYROID 0.34-5.60 UIU/ml EUTHYROID >5.60 UIU/ml HYPOTHYROID Performed By: #### C MP, TSH, LIPID #### [facility] [address] [place] [address] Dr. Luis Virgen Vital Signs Date Time Vital Sign Value Performing Clinician Quinn elizondo 08-18-2024 09:37-0400 Body mass index (BMI) [Ratio] 33.07 kg/m2 Cely Carver [employer] Work Phone: [facility] 08-18-2024 09:37-0400 Body weight 79.38 kg Cely Carver [employer] Work Phone: [facility] 08-18-2024 09:37-0400 Diastolic blood pressure 82 mm[Hg] Cely Carver [employer] Work Phone: [facility] 08-18-2024 09:37-0400 Systolic blood pressure 116 mm[Hg] Cely Carver [employer] Work Phone: [facility] 08-04-2024 14:31-0400 Body mass index (BMI) [Ratio] 32.95 kg/m2 Slava Gloria DO Work Phone: [facility] 08-04-2024 14:31-0400 Body weight 79.11 kg Slava Gloria DO Work Phone: [facility] 08-04-2024 14:31-0400 Diastolic blood pressure 76 mm[Hg] Slava Gloria DO Work Phone: [facility] 08-04-2024 14:31-0400 Systolic blood pressure 120 mm[Hg] Slava Gloria DO Work Phone: [facility] 07-21-2024 14:30-0400 Body mass index (BMI) [Ratio] 33.14 kg/m2 Vidya DESAI Work Phone: [facility] 07-21-2024 14:30-0400 Body weight 79.56 kg Vidya DESAI Work Phone: [facility] 07-21-2024 14:30-0400 Diastolic blood pressure 74 mm[Hg] Vidya DESAI Work Phone: [facility] 07-21-2024 14:30-0400 Systolic blood pressure 110 mm[Hg] Vidya DESAI Work Phone: [facility] 07-06-2024 14:09-0400 Body mass index (BMI) [Ratio] 32.69 kg/m2 Slava Gloria DO Work Phone: [facility] 07-06-2024 14:09-0400 Body weight 78.47 kg Slaav Gloria DO Work Phone: [facility] 07-06-2024 14:09-0400 Diastolic blood pressure 72 mm[Hg] Slava Gloria DO Work Phone: [facility] 07-06-2024 14:09-0400 Systolic blood pressure 118 mm[Hg] Slava Gloria DO Work Phone: [facility] 06-16-2024 14:05-0400 Body mass index (BMI) [Ratio] 32.12 kg/m2 Cely Carver [employer] Work Phone: [facility] 06-16-2024 14:05-0400 Body weight 77.11 kg Cely Carver [employer] Work Phone: [facility] 06-16-2024 14:05-0400 Diastolic blood pressure 70 mm[Hg] Cely Mehul [employer] Work Phone: [facility] 06-16-2024 14:05-0400 Systolic blood pressure 114 mm[Hg] Cely Mehul [employer] Work Phone: [facility] 04-07-2024 15:02-0500 Body mass index (BMI) [Ratio] 30.8 kg/m2 Vidya DESAI Work Phone: [facility] 04-07-2024 15:02-0500 Body weight 73.94 kg Vidya DESAI Work Phone: [facility] 04-07-2024 15:02-0500 Diastolic blood pressure 62 mm[Hg] Vidya DESAI Work Phone: [facility] 04-07-2024 15:02-0500 Systolic blood pressure 116 mm[Hg] Vidya DESAI Work Phone: [facility] 03-10-2024 14:45-0500 Body mass index (BMI) [Ratio] 30.63 kg/m2 Slava Gloria DO Work Phone: [facility] 03-10-2024 14:45-0500 Body weight 73.54 kg Slava Gloria DO Work Phone: [facility] 03-10-2024 14:45-0500 Diastolic blood pressure 66 mm[Hg] Slava Gloria DO Work Phone: [facility] 03-10-2024 14:45-0500 Systolic blood pressure 110 mm[Hg] Slava Gloria DO Work Phone: [facility] 02-11-2024 10:34-0500 Body mass index (BMI) [Ratio] 30.69 kg/m2 Nom Nurse [facility] 02-11-2024 10:34-0500 [facility] 02-11-2024 10:34-0500 Diastolic blood pressure 77 mm[Hg] [facility] 02-11-2024 10:34-0500 Systolic blood pressure 110 mm[Hg] [facility] 12-10-2023 13:12-0400 Body mass index (BMI) [Ratio] 30.76 kg/m2 Slvaa Gloria DO Work Phone: [facility] 12-10-2023 13:12-0400 Body weight 73.85 kg Slava Gloria DO Work Phone: [facility] 12-10-2023 13:12-0400 Diastolic blood pressure 78 mm[Hg] Slava Gloria DO Work Phone: [facility] 12-10-2023 13:12-0400 Systolic blood pressure 116 mm[Hg] Slava Gloria DO Work Phone: [facility] Healthcare Encounters Encounter Date Encounter Type Care Provider Facility Start: 08-18-2024 End: 08-18-2024 Bamboo kory Carver NP Work Phone: [facility] Start: 08-18-2024 End: 08-18-2024 Bamboo flowsheet Cely Carver [employer] Work Phone: [facility] Start: 08-18-2024 End: 08-18-2024 Clinisync Result Encounter Generic External Data Provider [facility] Unsolicited Start: 08-18-2024 End: 08-18-2024 Office outpatient visit 15 minutes Cely Carver [employer] Work Phone: [facility] Comment on above: Third trimester preg eileen ([facility]); 34 weeks gestation of ([facility]) Start: 08-18-2024 End: 08-18-2024 ambulatory CELY MEHUL Not Available Start: 08-13-2024 End: 08-13-2024 Clinisync Result Encounter Generic External Data Provider [facility] Unsolicited Start: 08-13-2024 End: 08-13-2024 Clinisync Result Encounter Generic External Data Provider [facility] External [facility] Unsolicited Start: 08-11-2024 End: 08-11-2024 Clinisync Result Encounter Vidya DESAI Work Phone: [facility] Unsolicited Start: 08-11-2024 End: 08-11-2024 Clinisync Result Encounter Vidya DESAI Work Phone: [facility] Unsolicited Start: 08-04-2024 End: 08-04-2024 Office outpatient visit 15 minutes Slava Gloria DO Work Phone: [facility] Comment on above: 32 weeks gestation o f ; Third trimester Start: 08-04-2024 End: 08-04-2024 ambulatory SLAVA GLORIA Not Available Start: 08-04-2024 End: 08-04-2024 Clinisync Result Encounter Generic External Data Provider [facility] External [facility] Unsolicited Start: 08-04-2024 End: 08-04-2024 Clinisync Result Encounter Generic External Data Provider [facility] External [facility] Unsolicited Start: 07-28-2024 End: 07-28-2024 Clinisync Result Encounter Generic External Data Provider [facility] External Department Unsolicited Start: 07-28-2024 End: 07-28-2024 Clinisync Result Encounter Generic External Data Provider [...] End: 07-06-2024 Office outpatient visit 15 minutes Slava Gloria DO Work Phone: [facility] Comment on above: Third trimester preg eileen; 28 weeks gestation of ; Elevated glucose tolerance test; Diabetes mellitus screening; SGA (small for gestational age) Start: 07-06-2024 End: 07-06-2024 ambulatory SLAVA GLORIA Not Available Start: 07-05-2024 End: 07-05-2024 Clinisync Result Encounter Generic External Data Provider [facility] External [facility] Unsolicited Start: 07-05-2024 End: 07-05-2024 Clinisync Result Encounter Generic External Data Provider [facility] External [facility] Unsolicited Start: 06-16-2024 End: 06-16-2024 Bamboo flowsheet Cely Carver [employer] Work Phone: [facility] Start: 06-16-2024 End: 06-17-2024 Bamboo flowsheet Cely Mehul [employer] Work Phone: [facility] Start: 06-16-2024 End: 06-17-2024 External Result Encounter Slava Gloria DO Work Phone: [facility] Unsolicited Start: 06-16-2024 End: 06-16-2024 Office outpatient visit 15 minutes Cely Carver [employer] Work Phone: [facility] Comment on above: Second trimester pre gnancy; 25 weeks gestation of ; Screen for STD (sexually transmitted disease); Diabetes mellitus screening; Antepartum multigravida of advanced maternal age Start: 06-16-2024 End: 06-16-2024 ambulatory CELY CARVER Not Available Start: 05-10-2024 End: 05-10-2024 ambulatory SLAVA GLORIA Not Available Start: 05-10-2024 End: 05-10-2024 [...] [facility] Start: 03-10-2024 End: 03-10-2024 ambulatory SLAVA GLORIA Not Available Start: 03-10-2024 End: 03-10-2024 flow sheet Slava Gloria DO Work Phone: [facility] Comment on above: 11 weeks gestation o f ; First trimester Start: 03-10-2024 End: 03-10-2024 Bamboo flowsheet Slava Gloria DO Work Phone: [facility] Start: 03-10-2024 End: 03-10-2024 Bamboo flowsheet Slava Gloria DO Work Phone: [facility] Start: 02-27-2024 End: 02-27-2024 ambulatory Slavaosman Castro [facility] Work Phone: Start: 02-27-2024 End: 02-27-2024 Departed Referred Slava Mcclellando DO Work Phone: [facility] Start: 02-27-2024 End: 02-27-2024 Clinisync Result Encounter Generic External Data Provider [facility] External Department Unsolicited Start: 02-27-2024 End: 02-27-2024 Clinisync Result Encounter Generic External Data Provider [facility] External [facility] Unsolicited Start: 02-25-2024 End: 02-26-2024 Refill Анна Ha [employer] Work Phone: [facility] Comment on [...] Start: 01-31-2024 End: 01-31-2024 Clinisync Result Encounter Slava Gloria DO Work Phone: [facility] Unsolicited Start: 01-31-2024 End: 01-31-2024 Clinisync Result Encounter Slava Gloria DO Work Phone: [facility] Unsolicited Start: 01-29-2024 End: 01-29-2024 Clinisync Result Encounter Generic External Data Provider [facility] Unsolicited Start: 01-29-2024 End: 01-29-2024 Clinisync Result Encounter Generic External Data Provider [facility] External [facility] Unsolicited Start: 01-27-2024 End: 01-27-2024 Clinisync Result Encounter Slava Gloria DO Work Phone: [facility] Unsolicited Start: 01-27-2024 End: 01-27-2024 Clinisync Result Encounter Slava Gloria DO Work Phone: [facility] [...] Unsolicited Start: 12-10-2023 End: 12-10-2023 Bamboo flowsheet Slava Gloria DO Work Phone: [facility] Start: 12-10-2023 End: 12-18-2023 Bamboo flowsheet Slava Gloria DO Work Phone: [facility] Start: 12-10-2023 End: 12-18-2023 Clinisync Result Encounter Generic External Data Provider [facility] Unsolicited Start: 12-10-2023 End: 12-10-2023 ambulatory SLAVA GLORIA Not Available Start: 12-10-2023 End: 12-10-2023 Patient encounter procedure Slava Gloria DO Work Phone: [facility] Work Phone: Start: 12-10-2023 End: 12-10-2023 Periodic preventive med est patient 18-39 yrs Slava Castro DO Work Phone: [facility] Comment on above: Well woman exam with routine gynecological exam; Missed menses Start: 09-01-2023 Patient encounter status Slava Castro DO Work Phone: [facility] Start: 09-01-2023 End: 09-01-2023 ambulatory АННА HA Not Available Start: 06-30-2023 End: 06-30-2023 ambulatory MD Dar Brody Work Phone: [facility] Work Phone: Start: 06-30-2023 End: 06-30-2023 Departed Referred MD Dar Brody Work Phone: [facility] Start: 02-20-2022 End: 02-20-2022 ambulatory MARLYN HA Facility:[facility] Start: 11-06-2021 End: 11-06-[address] SLAVA CASTRO Facility:[facility] Start: 08-20-2021 End: 08-20-2021 ambulatory MARLYN HA Facility:[facility] Start: 08-06-2021 End: 08-07-2021 ambulatory MARLYN HA Facility:[facility] Procedures Date Procedure Procedure Detail Performing Clinician Start: 08-18-2024 US OB BPP W NON-STRESS Generic External Data Provider Start: 08-13-2024 US OB BPP W NON-STRESS Generic External Data Provider Start: 08-11-2024 US OB BPP W NON-STRESS Vidya DESAI Work Phone: Start: 08-04-2024 Urnls dip stick/tabl et rgnt non-auto w/o micrscp Slava Mcclellando DO Work Phone: Start: 08-04-2024 US OB BPP W NON-STRESS Generic External Data Provider Start: 07-28-2024 US OB GROWTH Generic Ex ternal Data Provider Start: 07-23-2024 GLUCOSE TOLERANCE 3 HOUR Slava Gloria DO Work Phone: Start: 07-06-2024 Urnls dip stick/tabl et rgnt non-auto w/o micrscp Slava Gloria DO Work Phone: Start: 07-05-2024 ALL CBC WITH AUTO DIFF Cely Carver [employer] Work Phone: Start: 06-16-2024 RECURRENT VAGINITIS (HTRX) Slava Gloria DO Work Phone: Start: 06-16-2024 Urnls dip stick/tabl et rgnt non-auto w/o micrscp Cely Carver [employer] Work Phone: Start: 04-10-2024 GLUCOSE 1 HOUR Vidya Grider Work Phone: Start: 04-07-2024 Urnls dip stick/tabl et rgnt non-auto w/o micrscp Vidya DESAI Work Phone: Start: 03-10-2024 Urnls dip stick/tabl et rgnt non-auto w/o micrscp Slava Gloria DO Work Phone: Start: 02-27-2024 BOX TEST Slava Fazi o DO Work Phone: Start: 02-11-2024 Urnls dip stick/tabl et rgnt non-auto w/o micrscp Slava Gloria DO Work Phone: Start: 02-02-2024 TBH [...] 12-10-2023 Urine test visual color cmprsn meths Slava Gloria DO Work Phone: Start: 12-10-2023 IGP,APTIMA HPV,AGE GDLN Slava Gloria DO Work Phone: Start: 12-10-2023 Microscopic observat ion [Identifier] in Cervix by Cyto stain Cely Carver [employer] Work Phone: Start: 12-10-2023 Cytp cerv/vag auto t hin layer prep mnl screen Slava Gloria DO Work Phone: Start: 11-25-2022 Microscopic observat ion [Identifier] in Cervix by Cyto stain Slava Gloria DO Work Phone: Plan of Treatment Date Care Activity Detail Author Start: 12-09-2028 Screening for malign ant neoplasm of cervix [facility] Start: 11-25-2025 Screening for malign ant neoplasm of cervix [facility] Start: 12-15-2024 End: 12-15-2024 Patient encounter procedure 12/15/2024 3:00 PM EDT Office Visit [facility] [address] [address] Slava Castro, DO [address] [place] [address] [facility] Start: 09-07-2024 End: 09-07-2024 Patient encounter procedure 09/07/2024 1:00 PM EDT Office Visit [facility] [address] [place] [phone] Анна Ha VÍCTOR [address] [place] [address] [facility] Start: 09-02-2024 End: 09-02-2024 Patient encounter procedure 09/02/2024 10:40 AM EDT Routine [facility] [address] [phone] Slava Castro, DO [address] [place], [place] [address] [place], [facility] Start: 08-18-2024 End: 08-18-2024 Patient encounter procedure [facility] Comment on above: Arrived Start: 08-04-2024 End: 08-04-2024 Patient encounter procedure 08/04/2024 2:20 PM EDT Routine [facility] [address] [place] [address] Slava Castro, DO [address] [place] [address] [facility] Start: 07-21-2024 End: 07-21-2024 Patient encounter procedure 07/21/2024 2:20 PM EDT Routine [facility] [address] [place] [address] Vidya Jackson PA [address] [place], [place] [id number] [facility] Start: 07-21-2024 End: 01-21-2025 [...] of gestational diabetes Expected: 07/21/2024, Expires: 11/21/2024 [facility] Healthcare Comment on above: Expected: 07/21/2024 , Expires: 11/21/2024 Start: 07-06-2024 End: 07-06-2025 Measurement of glucose 1 hour after glucose challenge for glucose tolerance test Glucose tolerance, 1 hour Lab Routine Diabetes mellitus screening Expected: 07/06/2024 (Approximate), Expires: 07/06/2025 [facility] Work Phone: Comment on above: Expected: 07/06/2024 (Approximate), Expires: 07/06/2025 Start: 07-06-2024 End: 11-06-2024 US for US OB follow up transabdominal approach Imaging Routine SGA (small for gestational age) Expected: 07/06/2024, Expires: 11/06/2024 [facility] Comment on above: Expected: 07/06/2024 , Expires: 11/06/2024 Start: 07-06-2024 End: 07-06-2024 Patient encounter procedure 07/06/2024 1:50 PM EDT Routine [facility] [address] [place] [address] Slava Castro, DO [address] [place] [address] [facility] Start: 07-06-2024 End: 07-06-2024 Professional / ancillary services management 07/06/2024 1:30 PM EDT Ancillary Procedure [facility] [address] [place] [address] [facility] Start: 06-16-2024 End: 06-16-2025 CBC panel - Blood by Automated count CBC Lab Routine Diabetes mellitus screening Expected: 06/16/2024 (Approximate), Expires: 06/16/2025 [facility] Healthcare Comment on above: Expected: 06/16/2024 (Approximate), [...] PM EDT Routine [facility] [address] [place] [address] Cely Carver, [employer] [address] [place] [phone] Arrived [facility] Comment on above: Arrived Start: 05-10-2024 End: 05-10-2024 Patient encounter procedure 05/10/2024 2:40 PM EDT Routine [facility] [address] [place] [address] Slava Castro DO [address] [place] [address] [facility] Start: 05-10-2024 End: 05-10-2024 Professional / ancillary services management 05/10/2024 1:30 PM EDT Ancillary Procedure [facility] [address] [place] [phone] [facility] Start: 04-07-2024 End: 04-07-2024 Patient encounter procedure [facility] Comment on above: Arrived Start: 04-07-2024 End: 05-05-2024 Alpha fetoprotein, maternal Alpha fetoprotein, maternal Lab Routine Need for maternal serum alpha-protein (MSAFP) screening Expected: 04/07/2024 (Approximate), Expires: 05/05/2024 [facility] Comment on above: Expected: 04/07/2024 (Approximate), Expires: 05/05/2024 Start: 04-07-2024 End: 04-07-2025 Measurement of glucose 1 hour after glucose challenge for glucose tolerance test Glucose tolerance, 1 hour Lab Routine Diabetes mellitus screening Expected: 04/07/2024 (Approximate), Expires: 04/07/2025 [facility] Work Phone: Comment on above: Expected: 04/07/2024 (Approximate), Expires: 04/07/2025 Start: 04-07-2024 End: 04-07-2025 US for US OB 14+ weeks anatomy scan Imaging Routine Screening, , for anatomic survey Expected: 04/07/2024, Expires: 04/07/2025 [facility] Comment on above: Expected: 04/07/2024 , Expires: 04/07/2025 Start: 03-10-2024 End: 03-10-2024 Patient encounter procedure 03/10/2024 2:20 PM EST Routine [facility] [address] [place] [phone] Slava Castro, DO [address] [place] [address] [facility] Start: 03-02-2024 End: 03-02-2024 Patient encounter procedure 03/02/2024 9:40 AM EST Office Visit [facility] [address] [place] [address] Анна Ha NP [address] [place] [address] [facility] Start: 02-27-[address] [facility] Start: 02-27-2024 Bacteria identified in Urine by Culture Urine Culture [facility] Start: 02-11-2024 End: 02-10-2025 ABO/Rh ABO/Rh Lab Routine Missed menses , unspecified gestational age Expected: 02/11/2024 (Approximate), Expires: 02/10/2025 [facility] Comment on above: Expected: 02/11/2024 (Approximate), [...] first trimester Expected: 02/11/2024 (Approximate), Expires: 02/10/2025 [facility] Comment on above: Expected: 02/11/2024 (Approximate), Expires: 02/10/2025 Start: 02-11-2024 End: 02-10-2025 US Pelvis transvaginal US OB transvaginal Imaging Routine Missed menses Expected: 02/11/2024 (Approximate), Expires: 02/10/2025 [facility] Comment on above: Expected: 02/11/2024 (Approximate), Expires: 02/10/2025 Start: 02-11-2024 End: 02-11-2024 ambulatory 02/11/2024 10:00 AM EST Initial [facility] [address] [place] [address] [facility] Start: 02-11-2024 End: 02-11-2024 Professional / ancillary services management 02/11/2024 9:30 AM EST Ancillary Procedure [facility] [address] [place] [address] [facility] Start: 2018 Screening for malign ant neoplasm of cervix HPV/Cotest [facility] Bacteria identified in Urine by Culture Urine culture Microbiology Routine Missed menses Ordered: 02/11/2024 [facility] Comment on above: Ordered: 02/11/2024 CBC W Auto Different ial panel - Blood CBC and differential Lab Routine Missed menses , unspecified gestational age Ordered: 02/11/2024 [facility] Comment on above: Ordered: 02/11/2024 CHLAMYDIA TRACHOMATI S (GENITO/STI) CHLAMYDIA TRACHOMATIS (GENITO/STI) Lab Routine Screen for STD (sexually transmitted disease) Ordered: 06/16/2024 [facility] Comment on above: Ordered: 06/16/2024 Cytology Cervical or vaginal smear or scraping study Pap Smear Pathology and Cytology Routine Well woman exam with routine gynecological exam Ordered: 12/10/2023 [facility] Work Phone: Comment on above: Ordered: 12/10/2023 Hemoglobin A1c/Hemoglobin.total in Blood Hemoglobin A1c Lab Routine Missed menses , unspecified gestational age Ordered: 02/11/2024 [facility] Comment on above: Ordered: 02/11/2024 Hepatitis B virus surface Ag [Presence] in Serum or Plasma by Immunoassay Hepatitis B surface antigen Lab Routine Missed menses , unspecified gestational age Ordered: 02/11/2024 [facility] Comment on above: Ordered: 02/11/2024 Hepatitis C virus Ab [Presence] in Serum or Plasma by Immunoassay Hepatitis C antibody Lab Routine Missed menses , unspecified gestational age Ordered: 02/11/2024 [facility] Comment on above: Ordered: 02/11/2024 HIV-1/HIV-2 antigen/antibody combination immunoassay HIV-1 and HIV-2 antibodies Lab Routine Missed menses , unspecified gestational age Ordered: 02/11/2024 [facility] Comment on above: Ordered: 02/11/2024 Human papilloma viru s DNA [Presence] in Unspecified specimen by Probe with amplification HPV DNA probe, amplified Microbiology Routine Well woman exam with routine gynecological exam Ordered: 12/10/2023 [facility] Comment on above: Ordered: 12/10/2023 Neisseria gonorrhoea e DNA [Presence] in Unspecified specimen by JUAN with probe detection Neisseria gonorrhea DNA probe, direct Lab Routine Screen for STD (sexually transmitted disease) Ordered: 06/16/2024 [facility] Comment on above: Ordered: 06/16/2024 Reagin Ab [Presence] in Serum by RPR RPR Lab Routine Missed menses , unspecified gestational age Ordered: 02/11/2024 [facility] Comment on above: Ordered: 02/11/2024 Rubella antibody, IgG Rubella an tibody, IgG Lab Routine Missed menses , unspecified gestational age Ordered: 02/11/2024 [facility] Comment on above: Ordered: 02/11/2024 SURESWAB(R) ADVANCED VAGINITIS PLUS, TMA SURESWAB(R) ADVANCED VAGINITIS PLUS, TMA Pathology and Cytology Routine Screen for STD (sexually transmitted disease) Ordered: 06/16/2024 [facility] Work Phone: Comment on above: Ordered: 06/16/2024 Immunizations Immunization Date Immunization Notes Care Provider Joan ornelas 12-08-2017 influenza, seasonal, injectable, preservative free Slava Castro DO Work Phone: [facility] Payers Date Payer Category Payer Self-pay [id number] 2023 Managed Care O (unspecified) [employer] [id number] 2023 Private Health Insurance [id number] 2022 Medicaid (Managed Care) [employer] Member Subscriber Plan / Payer (Effective 2022-Present) Name: Shreya Marshall Relation to Subscriber: Self Name: Shreya Marshall Payer ID: Not on file Group ID: Not on file Type: Not on file Address: [place] [id number] 1988 Unknown [id number] 2.840.1.484380.3.579. 2.593 1988 Unknown [id number] 2.840.1.440245.3.579. 2.593 1988 Unknown [id number] 2.840.1.779617.3.579. 2.593 1988 Unknown [id number] 2.840.1.345627.3.579. 2.593 1988 Unknown [id number] 2.840.1.933659.3.579. 2.1258 1988 Unknown [id number] 2.16840.1.700838.3.579. 2.9 1988 Unknown [id number] 2.840.1.165849.3.579. 2.1258 1988 Unknown [id number] 2.840.1.041716.3.579. 2.9 1988 Unknown [id number] 2.840.1.977118.3.579. 2.125 1988 Unknown [id number] 2.16840.1.750471.3.579. 2.9 1988 Unknown [id number] 2.16840.1.536087.3.579. 2.1259 1988 Unknown [id number] 2.16840.1.979126.3.579. 2.1259 1988 Unknown [id number] 2.16.840.1.247127.3.579. 2.1259 1988 Unknown [id number] 2.16.840.1.463227.3.579. 2.9 1988 Unknown [id number] 2..840.1.103034.3.579. 2.9 1988 Unknown [id number] 2.16.840.1.504979.3.579. 2.9 1988 Unknown [id number] 2..840.1.183458.3.579. 2.1259 1959 Unknown [id number] Private Health Insurance [facility] [id number] Unknown [id number] 2.16.840.1.241824.3.579. 2.531 Unknown [id number] 2.16.840.1.132237.3.579. 2.531 Social History Date Type Detail Facility Start: 03-05-2019 End: 03-05-2019 Tobacco smoking status [facility] Never smoked tobacco (finding) [facility] Start: 1990 Sex Assigned At Female [facility] Start: 10-30-2022 Tobacco smoking status [facility] Ex-smoker [facility] End: 02-24-2014 History of tobacco use Current smoker [facility] End: 02-24-2014 History of tobacco use Cigarette Smoker [facility] Start: 10-30-2022 Tobacco use and exposure Smokeless tobacco non-user [facility] Start: 12-10-2023 End: 08-04-2024 Alcoholic beverage intake Lifetime non-drinker (finding) [facility] Start: 05-19-2023 End: 08-06-2024 History of Social function [facility] Start: 05-19-2023 End: 08-06-2024 Social connection and isolation panel [facility] Do you belong to any clubs or organizations such as confucianism groups, unions, fraternal [...] [facility] Start: 02-28-2024 Sex Female (finding) [facility] Goals Date Patient Goal Desired Activity /State Personal health goal Clinical Notes 12-10-2023 to 08-18-2024 Cely Carver NP - 08/18/2024 9:30 AM Fred Gilbert LPN - 08/04/2024 2:20 PM GISELLE Tracy - 07/21/2024 2:20 PM Fred Gilbert LPN - 07/06/2024 1:50 PM EDT Note Date & Type Note Facility 08-18-2024 History of Present illness Narrative Reason for [...] abnormal pap smear PAP SMEAR 03/07/2014 LGSIL MD MEDICATION MANAGEMENT Drug Therapy -SVT TONSILLECTOMY 1992 [...] nursing note reviewed. Exam conducted with a general accountant present. Vitals: Estimated body mass index is 33.07 kg/m as calculated from the following: Height as of 24: 5' 1 . Weight as of this encounter: 175 lb. BP: 116/82 Patient's last menstrual period was 12/11/2023. ASSESSMENT & PLAN ICD-10-CM 1. Third trimester ([facility]) Z34.93 2. 34 weeks gestation of ([facility]) Z3A.34 Return OB: Patient presents [...] for routine OB appointment. Patient continues with NST/BPP and doing well. Documented by Cely Carver NP on behalf of: Ceyl Carver NP documented in this encounter [facility] 08-04-2024 History of Present illness Narrative Reason [...] abnormal pap smear PAP SMEAR 03/07/2014 LGSIL MD MEDICATION MANAGEMENT Drug Therapy -SVT TONSILLECTOMY 1992 [...] nursing note reviewed. Exam conducted with a general accountant present. Vitals: Estimated body mass index is [...] Slava Castro DO documented in this encounter [facility] 07-21-2024 History of Present illness Narrative Reason [...] for wellness examination in adult 09/01/2023 Depression ([facility]) 09/01/2023 Resolved Ambulatory Problems Diagnosis Date Noted Major depressive disorder, single episode, mild (HCC) ([facility]) 09/01/2023 Past Medical History: Diagnosis Date Abnormal Pap smear of cervix 2009 Contraception management Current mild episode of major depressive disorder without prior episode (HCC) ([facility]) Degenerative joint disease of [...] abnormal pap smear PAP SMEAR 03/07/2014 LGSIL MD MEDICATION MANAGEMENT Drug Therapy -SVT TONSILLECTOMY 1992 [...] of: GISELLE Cramer documented in this encounter [facility] 07-06-2024 History of Present illness Narrative Reason [...] for wellness examination in adult 09/01/2023 Depression ([facility]) 09/01/2023 Resolved Ambulatory Problems Diagnosis Date Noted Major depressive disorder, single episode, mild (HCC) ([facility]) 09/01/2023 Past Medical History: Diagnosis Date Abnormal Pap smear of cervix 2009 Contraception management Current mild episode of major depressive disorder without prior episode (HCC) ([facility]) Degenerative joint disease of spine Encounter for IUD removal History of abnormal cervical Pap smear LGSIL Pap smear of vagina 2012 Overweight (BMI 25.0-29.9) SVT (supraventricular tachycardia) ([facility]) Torn meniscus HISTORY PAST MEDICAL HISTORY SOCIAL HISTORY Past Medical History: Diagnosis Date Abnormal Pap smear of cervix 2009 Contraception management Current mild episode of major depressive disorder without prior episode (HCC) ([facility]) 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 Artis needs to stop with preg. Cat. C LGSIL Pap smear of vagina 2012 Overweight (BMI 25.0-29.9) SVT (supraventricular tachycardia) ([facility]) Torn meniscus Social History [...] abnormal pap smear PAP SMEAR 03/07/2014 LGSIL MD MEDICATION MANAGEMENT Drug Therapy -SVT TONSILLECTOMY 1992 [...] nursing note reviewed. Exam conducted with a general accountant present. Vitals: Estimated body mass index is [...] Slava Castro DO documented in this encounter [facility] 06-16-2024 History of Present illness Narrative Reason [...] abnormal pap smear PAP SMEAR 03/07/2014 LGSIL MD MEDICATION MANAGEMENT Drug Therapy -SVT TONSILLECTOMY 1992 [...] nursing note reviewed. Exam conducted with a general accountant present. Vitals: Estimated body mass index is [...] by Ramandeep Ferguson LPN on behalf of: Cely Carver NP documented in this encounter [facility] 04-07-2024 History of Present illness Narrative Reason [...] for wellness examination in adult 09/01/2023 Depression ([facility]) 09/01/2023 Resolved Ambulatory Problems Diagnosis Date Noted Major depressive disorder, single episode, mild (HCC) ([facility]) 09/01/2023 Past Medical History: Diagnosis Date Abnormal Pap smear of cervix 2009 Contraception management Current mild episode of major depressive disorder without prior episode (HCC) ([facility]) Degenerative joint disease of spine Encounter for IUD removal History of abnormal cervical Pap smear LGSIL Pap smear of vagina 2012 Overweight (BMI 25.0-29.9) SVT (supraventricular tachycardia) ([facility]) Torn meniscus HISTORY PAST MEDICAL HISTORY SOCIAL HISTORY Past Medical History: Diagnosis Date Abnormal Pap smear of cervix 2009 Contraception management Current mild episode of major depressive disorder without prior episode (HCC) ([facility]) 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 Artis needs to stop with preg. Cat. C LGSIL Pap smear of vagina 2012 Overweight (BMI 25.0-29.9) SVT (supraventricular tachycardia) ([facility]) Torn meniscus Social History [...] abnormal pap smear PAP SMEAR 03/07/2014 LGSIL MD MEDICATION MANAGEMENT Drug Therapy -SVT TONSILLECTOMY 1992 [...] of: GISELLE Cramer documented in this encounter [facility] 03-10-2024 History of Present illness Narrative Reason [...] abnormal pap smear PAP SMEAR 03/07/2014 LGSIL MD MEDICATION MANAGEMENT Drug Therapy -SVT TONSILLECTOMY 1992 [...] nursing note reviewed. Exam conducted with a general accountant present. Vitals: Estimated body mass index is [...] or undercooked meat, and stay away from [facility]. Patient has been consulted regarding any further [...] Slava Castro DO documented in this encounter [facility] 02-11-2024 History of Present illness Narrative Reason [...] 2012 Overweight (BMI 25.0-29.9) SVT (supraventricular tachycardia) ([facility]) Torn meniscus Family History Problem Relation Name [...] abnormal pap smear PAP SMEAR 03/07/2014 LGSIL MD MEDICATION MANAGEMENT Drug Therapy -SVT TONSILLECTOMY 1992 [...] or undercooked meat, and stay away from [facility]. Patient has also been advised to not change litter boxes and eat 6 small meals a day. Patient has been consulted regarding the do's and don'ts of . Patient was given labs and all questions and concerns were answered. Patient was given [place] to have completed at 10 weeks. Follow Up: Patient is to return in 4 weeks for routine OB appointment. Follow Up: Patient is to have labs drawn at directed and return to office for initial OB appointment with provider. Patient may call office as needed with any concerns or questions. Nurse Visit Completed by: Lynnette Stapleton LPN documented in this encounter [facility] 12-10-2023 History of Present illness Narrative Reason [...] Diagnosis Date Noted Insomnia 02/27/2023 Supraventricular tachycardia ([facility]) 12/09/2019 Left wrist pain 05/03/2023 Obesity (BMI [...] abnormal pap smear PAP SMEAR 03/07/2014 LGSIL MD MEDICATION MANAGEMENT Drug Therapy -SVT TONSILLECTOMY 1992 [...] nursing note reviewed. Exam conducted with a general accountant present. Vitals: Estimated body mass index is [...] Slava Castro DO documented in this encounter [facility] Evaluation note No assessment inform ation available [facility] Work Phone: Evaluation note Diagnosis [...] diabetes mellitus SGA (small for gestational age) [id number] without mention of malnutrition, unspecified (weight) documented [...] Primary Major depressive disorder, single episode, mild Major depressive disorder, single episode, mild Primary insomnia Persistent disorder of initiating or maintaining sleep Obesity (BMI 30-39.9) Depression, unspecified depression type Third trimester ([facility]) state, incidental 34 weeks gestation of ([facility]) documented in this encounter [facility] Summary [...] CREATED AUTHOR AUTHOR'S ORGANIZ ATION 03/06/2024 [facility] DATE CREATED AUTHOR AUTHOR'S ORGANIZ ATION 08/19/2024 [facility] Care Teams (unrecognized sec tion and content) Team Status: Active Member Role Status Dates Dar Brody MD Primary Care Provider Active Team Status: Inactive Member Role Status Dates Dar Brody MD Primary Care Provider Active Start: June 30, 2023 End: June 30, 2023 Slava Castro Attending Provider Active Start: Viky brewer 2023 End: June 30, 2023 Certified Legal Secretary Specialist Relationship Specialty Start Date End Date Parag Bradley MD [address] [place] [address] PCP - [facility] 08/14/22 Анна Ha NP [address] [place] [address] PCP - [facility] 08/25/23 Certified Legal Secretary Specialist Relationship Specialty Start Date End Date Parag Bradley MD [address] [place] [address] PCP - [facility] 08/14/22 Анна Ha NP [address] [place] [address] [facility] 08/25/23 Certified Legal Secretary Specialist Relationship Specialty Start Date End Date Parag Bradley MD [address] [place] [address] PCP - [facility] 08/14/22 Анна Ha NP [address] [place] [address] [facility] 08/25/23 Certified Legal Secretary Specialist Relationship Specialty Start Date End Date Parag Brdaley MD [address] [place] [address] PCP - [facility] 08/14/22 Анна Ha NP [address] [place] [address] [facility] 08/25/23 Certified Legal Secretary Specialist Relationship Specialty Start Date End Date Parag Bradley MD [address] [place] [address] PCP - [facility] 08/14/22 Анна Ha NP [address] [place] [address] [facility] 08/25/23 Certified Legal Secretary Specialist Relationship Specialty Start Date End Date Parag Bradley MD [address] [place] [address] PCP [facility] 08/14/22 Анна Ha NP [address] [place] [address] [facility] - [facility] 08/25/23 Team Status: Inactive Member Role Status Dates Slava Castro DO Attending Provider Active Start : February 27, 2024 End: February 27, 2024 Certified Legal Secretary Specialist Relationship Specialty Start Date End Date Parag Bradley MD [address] [place] [address] PCP - [facility] 08/14/22 Анна Ha NP [address] [place] [address] [facility] 08/25/23 Certified Legal Secretary Specialist Relationship Specialty Start Date End Date Parag Bradley MD [address] [place] [address] PCP - [facility] 08/14/22 Анна Ha NP [address] [place] [address] [facility] 08/25/23 Certified Legal Secretary Specialist Relationship Specialty Start Date End Date Parag Bradley MD [address] [place] [address] PCP - [facility] 08/14/22 Анна Ha NP [address] [place] [address] [facility] 08/25/23 Certified Legal Secretary Specialist Relationship Specialty Start Date End Date Parag Bradley MD [address] [place] [address] PCP - [facility] 08/14/22 Анна Ha NP [address] [place] [address] [facility] 08/25/23 Certified Legal Secretary Specialist Relationship Specialty Start Date End Date Parag Bradley MD [address] [place] [address] PCP - [facility] 08/14/22 Анна Ha NP [address] [place] [address] [facility] 08/25/23 Goals (unrecognized section and content) [...] BE BASED ON THE PRIMARY CLINICAL RECORDS. [facility]. provides no warranty or guarantee of the accuracy or completeness of information in this document.
[2024-08-21 21:08] VITALS: BP 106/74; PULSE 65
== END 2024-08-21 21:42 | disposition home or self-care (01) ==
LOC: FBCO 21:00 → FBC 21:02
PROVIDERS: PCP Nurse Practitioner; Visit Provider Obstetrics & Gynecology
DX: O09.523 Supervision of elderly multigravida, third trimester (principal); Z3A.35 35 weeks gestation of pregnancy
CPT/HCPCS: 59025

== ENCOUNTER 2024-08-25 10:54 | Outpatient (OUT) | payer OTHER, SELFPAY ==
--- OUTSIDE RECORDS SUMMARY | 2021-03-22 12:00 | XMS_ITS | Continuity of Care Document ---
Author Organization [facility] Address [address] [place] [address] Phone Care Team Providers Care Net Developer With [employer] Name Role Phone Tash Sandhu DMD Unavailable Unavailable Allergies, Adverse Reactions, Alerts Substance Reaction Status Criticality No Known Allergies Active No Inform ation Medications Medication Instructions Dosage Effective Dates (start - stop) Status Comments Mirena 20 mcg/24 hours (6 yrs) 52 mg intrauterine device - Active Procedures Procedure Date Nutrit Couns For Control Of [place] Dis Feb Bitewings-three Films Panoramic Film Comp Oral Eval New/estab Patient 2021 Oral Hygiene Instruction Limited Oral Eval Extract; Erupted Th/exposted Rt 021 Extract; Erupted Th/exposted Rt 021 Bitewig-single Film Intraoral-periapical 1st Film Advance Directives Directive Yes / No Effective Date File Name No Information Encounters Encounter Description Practice Location Reason(s) For Visit Diagnoses Date Provider Providers Copied on Encounter [facility], [address] [place] [address], [id number], tel:[phone] Dental Clinic DN (chief complaint) Encounter for screening for dental disorders Edson Bianchi. [address] [place] [address], [id number], [place]. tel:[phone] [facility], [address] [place] [address], [id number], tel:[phone] Dental Clinic Dental New (chief complaint) Encounter for screening for dental disorders Edson Bianchi. [address] [place], [place], [id number], [place]. tel:[phone] Family History Family Member Type Diagnosis Age At Onset Mother Problem Alive and well Father Problem Alive and well Mother Problem Cardiovascular disease Payers Payer name Insurance type Covered green party ID Aston jason(s) D Medicaid [facility] [id number] Social History Type Description Quantity Date Captured [...]
--- OUTSIDE RECORDS SUMMARY | 2024-04-05 11:45 | XMS_ITS ---
[facility] [address] [place] [place] [address] Care Team Providers Care Solar Energy Systems Designer Name Role Phone Naida Valera Primary Care Provider REASON FOR VISIT EXT Encounters Encounter Location Date Provider Diagnosis [facility] [address] [place] [address] 04/05/2024 Naida Valera Plan Of Treatment Next Appt Details Provider Name:Naida ruff, 11/12/2024 10:30:00 AM, [address] [facility] [place], [address], Progress Notes * ROXANNE ROGERS DDOB: 9 (33 yo F)Acc No.[id number]:04/05/2024 Patient: ROXANNE KENNY Provider: Elizabeth Valera DDS :1990 A ge:33 Y S ex:Female Date:04/05/2024 Address:[address] [place] [phone] Subjective: * Chief Complaints: * 1 . EXT. * Medical History: Objective: * Vitals: Assessment: Plan: * Treatment: * Images: * Electronic signature of Harjit Valera DDS on 08/25/2024 at 10:55 AM EDT Sign off status: Pending * Provider: Elizabeth Valera DDS Date: 04/05/2024 Generated for Adam son/Makenzie/Chinyereitting on: 0 08/25/2024 10:55 AM EDT
--- OUTSIDE RECORDS SUMMARY | 2024-04-19 09:00 | XMS_ITS ---
[facility] [address] [place] [address] Care Team Providers Care Assignment Desk Editor Name Role Phone Naida Valera Primary Care Provider REASON FOR VISIT FILLING Encounters Encounter Location Date Provider Diagnosis [facility] [address] [place] [address] 04/19/2024 Naida Valera Plan Of Treatment Next Appt Details Provider Name:Naida ruff, 11/12/2024 10:30:00 AM, [address] [facility] [place], [address], Progress Notes * ROXANNE ROGERS DDOB: 9 (33 yo F)Acc No.[id number]:04/19/2024 Patient: ROXANNE KENNY Provider: Elizabeth Valera DDS :1990 A ge:33 Y S ex:Female Date:04/19/2024 Address:[address] [place] [phone] Subjective: * Chief Complaints: * 1 . FILLING. * Medical History: Objective: * Vitals: Assessment: Plan: * Treatment: * Images: * Electronic signature of Harjit Valera DDS on 08/25/2024 at 10:56 AM EDT Sign off status: Pending * Provider: Elizabeth Valera DDS Date: 04/19/2024 Generated for Adam son/Makenzie/Chinyereitting on: 0 08/25/2024 10:56 AM EDT
--- OUTSIDE RECORDS SUMMARY | 2024-08-18 09:30 | XMS_ITS | Encounter Summary ---
Author Organization [facility] Address [address] [place] [address] Care Team Providers Care Greens Laborer Name Role Phone Parag Bradley MD Primary Care Provider [phone] Анна Ha NP Unavailable [phone] Reason for Visit * Reason Comments Routine Visit Encounter Details Date Type Department Care Team (Late Contact Info) Description 08/18/2024 9:30 AM EDT Routine [facility] [address] [facility] [place] [address] Ximena Carver, PULVI MIXER OPERATOR [address] [facility] [place] [address] Third trimester ([facility]); 34 weeks gestation of ([facility]) Social History Tobacco Use Types Packs/Day [...] week 05/19/2023 How often do you attend [facility] or christianity services? More than 4 times per year 05/19/2023 Do you belong to any clubs o r organizations such as adventism groups, unions, fraternal or athletic groups, or [...] Recorded Patient Health Questionnaire-2 Score 0 08/06/2024 [facility] of Occupat ional [facility] - Occupational Stress Questionnaire Answer [...] a long term (including now)? No 05/19/2023 Estimated Date of [...] abnormal pap smear PAP SMEAR 03/07/2014 [facility] [place] MEDICATION MANAGEMENT Drug Therapy -SVT TONSILLECTOMY 1992 [...] nursing note reviewed. Exam conducted with a curtain feller blindstitch present. Vitals: Estimated body mass index is 33.07 kg/m² as calculated from the following: Height as of 24: 5' 1 . Weight as of this encounter: 175 lb. BP: 116/82 Patient's last menstrual period was 12/11/2023. ASSESSMENT & PLAN ICD-10-CM 1. Third trimester ([facility]) Z34.93 2. 34 weeks gestation of ([facility]) Z3A.34 Return OB: Patient presents today for [...] Description 09/02/2024 10:40 AM EDT Routine [facility] OB [address] [place] [place] [address] Slava Castro, DO [address] [facility] [address] [place], [place] [id number] 09/07/2024 1:00 PM EDT Office Visit [facility] [address] [place] [address] Анна Ha, VÍCTOR [address] [place] [address] 12/15/2024 3:00 PM EDT Office Visit [facility] OB [address] [place] [place] [address] Slava Castro, [address] [place], [place] [address] documented as of this encounter Goals Goal Patient Goal Type Associated Problems Recent Progress Patient-Stated? Author Reminders Care Plan OB Reminders No Open Scheduling, Background documented as of this encounter Procedures Procedure Name Priority Date/Time Associated Diagnosis Comments POCT URINALYSIS DIPSTICK Routine 08/18/2024 10:28 AM EDT Third trimester ([facility]) documented in this encounter Results * [...] this encounter Visit Diagnoses Diagnosis Third trimester ([facility]) state, incidental 34 weeks gestation of ([facility]) documented in this encounter Additional Health Concerns Active Problems Noted Date Diagnosed Date OB Reminders 02/11/2024 documented as of this encounter Care Teams Greens Laborer Relationship Specialty Start Date End Date Parag Bradley MD [address] [place] [address] PCP - General Family Medicine 08/14/22 Анна Ha NP [address] [place] [address] PCP - [facility] 08/25/23 documented as of this encounter
--- OUTSIDE RECORDS SUMMARY | 2024-08-25 10:56 | XMS_ITS ---
Author Organization [facility] Address [address] [place] [address] Care Team Providers Care Bakery Team Member Name Role Phone Parag Bradley MD Primary Care Provider [phone] Анна Ha NP Unavailable [facility]) Status:Enrolled (Active) Start date:03/09/2024 Enrollment date:03/09/2024 Enrollment reason:Identified by Health Plan Case Team Name Relationship Phone Vidya Oliva LPN(Responsible Staff) Licensed [facility] Nurse [phone] Continued Care and Services Coordination
--- OUTSIDE RECORDS SUMMARY | 2024-08-25 10:56 | XMS_ITS | Encounter Summary ---
Author Organization [facility] Address [address] [place] [address] Care Team Providers Care Beam Dyer Name Role Phone Parag Bradley MD Primary Care Provider [phone] Анна Ha NP Unavailable [phone] Encounter Details Date Type Department Care Team (Late st Contact Info) Description 08/11/2024 Clinisync Result Encounter [facility] External Department Unsolicited Vidya Jackson PA [address] [place] [address] [place] [address] Social History Tobacco Use Types Packs/Day Years [...] often do you attend chur ch or druze services? More than 4 times per year [...] Recorded Patient Health Questionnaire-2 Score 0 08/06/2024 [facility] of Occupat ional [facility] - Occupational Stress Questionnaire Answer Date [...] in a custodial (including now)? No 05/19/2023 Estimated Date of [...] 10:40 AM EDT Routine [facility] [address] [place] [address] Slava Castro, [address] [place], [place] [address] 09/07/2024 1:00 PM EDT Office Visit [facility] [address] [place] [address] Анна Ha NP [address] [place] [address] 12/15/2024 3:00 PM EDT Office Visit [facility] [address] [place] [address] Slava Castro, [address] [place], [place] [address] documented as of this encounter Goals Goal [...] EDT Narrative 08/11/2024 12:22 [place] [address] Ultrasound Report Signed Patient: ROXANNE MARSHALL MR#: [id number] : 1990 Acct:[id number] Age/Sex: 33 / F ADM Date: 08/11/24 Loc: [facility] 254-[address]: Vidya Jackson Ordering Physician: Vidya Jackson Date of Service: 08/11/24 Procedure(s): US OB BPP w non-stress Accession Number(s): [id number] cc: Анна Ha NP; Vidya Jackson [place] [address] Patient Name: ROXANNE MARSHALL MRN: [id number] date: 1990 Sex: F Assigned Patient Location: [facility] Current Patient Location: [facility] Accession/Order Number: [id number] Exam Date: 08/11/2024 12:18 Report Date: 08/11/2024 [...] Auguste M.D. 08/11/2024 12:20 PM Dictation Location: [place] [address] Electronically authenticated by: [id number] Y Date: 08/11/2024 12:20 Dictated By: Isatu Auguste M.D. Signed By: 08/11/24 1222 DD/ 1220 TD/TT: Densitometrist: Procedure Note Radiology, Radiologist, MD - 08/11/2024 [place] [address] Ultrasound Report Signed Patient: ROXANNE MARSHALL DMR#: [id number] : 1990Acct:[id number] Age/Sex: 33 / FADM Date: 08/11/24 Loc: [facility] 254-[address]: Vidya Jackson Ordering Physician: Vidya Jackson Date of Service: 08/11/24 Procedure(s): US OB BPP w non-stress Accession Number(s): [id number] cc: Анна Ha NP; Vidya Jackson [facility] [place] [id number] Patient Name: ROXANNE MARSHALL MRN: [id number] date: 1990 Sex: F Assigned Patient Location: [facility] Current Patient Location: [facility] Accession/Order Number: [id number] Exam Date: 08/11/2024 12:18 Report Date: 08/11/2024 [...] Auguste M.D. 08/11/2024 12:20 PM Dictation Location: [place] [address] Electronically authenticated by: [id number] Y Date: 2:20 Dictated By: Isatu Auguste M.D. Signed By:08/11/24 1222 DD/ 1220 TD/TT: Densitometrist: Vidya [facility] Final Result documented in this encounter Visit Diagnoses Not on filedocumented in this encounter Additional Health Concerns Active Problems Noted Date Diagnosed Date OB Reminders 02/11/2024 documented as of this encounter Care Teams Beam Dyer Relationship Specialty Start Date End Date Parag Bradley MD [address] [place] [address] PCP - General Family Medicine 08/14/22 Анна Ha NP [address] [place] [address] PCP - [facility] 08/25/23 documented as of this encounter
--- OUTSIDE RECORDS SUMMARY | 2024-08-25 10:56 | XMS_ITS | Encounter Summary ---
Author Organization [facility] Address [address] [place] [address] Care Team Providers Care Receiving Specialist Name Role Phone Parag Bradley MD Primary Care Provider [phone] Анна Ha NP Unavailable [phone] Encounter Details Date Type Department Care Team (Late st Contact Info) Description 07/26/2024 Abstract [facility] [address] [place] [address] Slava Castro, DO [address] [place], [facility] Social History Tobacco Use Types Packs/Day [...] any clubs o r organizations such as gnosticism groups, unions, fraternal or athletic groups, or [...] Patient Health Questionnaire-2 Score 0 06/08/2024 [facility] of Occupat ional [facility] - Occupational Stress Questionnaire Answer Date [...] EDT Routine [facility] [address] [place] [address] Slava Castro DO [address] [place] [address] [address] [place], [place] [address] 09/07/2024 1:00 PM EDT Office Visit [facility] [address] [place] [address] Анна Ha NP [address] [place] [address] 12/15/2024 3:00 PM EDT Office Visit [facility] [address] [place] [address] Slava Castro, [address] [place] [address] [place], [place] [address] documented as of this encounter Goals Goal Patient Goal Type Associated Problems Recent Progress Patient-Stated? Author Reminders Care Plan OB Reminders No Open Scheduling, Background documented as of this encounter Visit Diagnoses Not on filedocumented in this encounter Additional Health Concerns Active Problems Noted Date Diagnosed Date OB Reminders 02/11/2024 documented as of this encounter Care Teams Receiving Specialist Relationship Specialty Start Date End Date Parag Bradley MD [address] [place] [address] PCP - General Family Medicine 08/14/22 Анна Ha NP [address] [place] [address] PCP - [facility] 08/25/23 documented as of this encounter
--- OUTSIDE RECORDS SUMMARY | 2024-08-25 10:56 | XMS_ITS | Encounter Summary ---
Author Organization [facility] Address [address] [place] [address] Care Team Providers Care Shuttler Name Role Phone Parag Bradley MD Primary Care Provider [phone] Анна Ha DOCTOR OF AUDIOLOGY Unavailable [phone] Reason for Visit * Reason Onset Date Comments Med Refill 08/22/2024 Encounter Details Date Type Department Care Team (Late st Contact Info) Description 08/22/2024 Refill [facility] [address] [place] [address] Анна Ha, DOCTOR OF AUDIOLOGY [address] [place] [address] Primary insomnia Social History Tobacco Use Types Packs/Day Years [...] How often do you attend chur or uatsdin services? More than 4 times per year 05/19/2023 Do you belong to any clubs o r organizations such as taoism groups, unions, fraternal or athletic groups, or [...] Recorded Patient Health Questionnaire-2 Score 0 08/06/2024 [facility] - Occupational Stress Questionnaire Answer Date [...] Routine [facility] [address] [place] [address] Slava Castro [address] [place], [place] [address] 09/07/2024 1:00 PM EDT [facility] [address] [place] [address] Анна Ha NP [address] [place] [address] 12/15/2024 3:00 PM EDT Office Visit [facility] [address] [place] [address] Slava Castro DO [address] [place] [address] [place] [address] documented as of this encounter Goals Goal Patient Goal Type Associated Problems Recent Progress Patient-Stated? Author Reminders Care Plan OB Reminders No Open Scheduling, Background documented as of this encounter Visit Diagnoses Diagnosis Primary insomnia Persistent disorder of initiating or maintaining sleep documented in this encounter Additional Health Concerns Active Problems Noted Date Diagnosed Date OB Reminders 02/11/2024 documented as of this encounter Care Teams Shuttler Relationship Specialty Start Date End Date Parag Bradley MD [address] [place] [address] PCP - General Family Medicine 08/14/22 Анна Ha NP [address] [place] [address] PCP - [facility] 08/25/23 documented as of this encounter
--- OUTSIDE RECORDS SUMMARY | 2024-08-25 10:56 | XMS_ITS | Patient Health Record ---
Author Organization [facility] es Address [address] [place] [address] Care Team Providers Care Viticulture Teacher Name Role Phone Naida Valera Primary Care Provider Reason For Referral No Information Medications Medication SIG (Take, Route, Frequency, Duration) Notes Start Date End Date Status Zoloft Unknown TRAZODONE Unknown Acetaminophen Extra Strength 500 MG 1 tablet as needed Orally every 6 hrs 01/02/2024 Active Encounters Encounter Location Date Provider Diagnosis [place] [address] [place] [address] 12/25/2023 Naida Valera Cracked tooth K03 .81 [facility] [address] [place] [address] 12/29/2023 Naida Valera Encounter for den mercy examination and cleaning with abnormal findings Z01.21 [facility] [address] [place] [address] 01/02/2024 Naida Valera Encounter for den mercy [...] ruff, 11/12/2024 10:30:00 AM, [address] [place], [address], Insurance Providers Payer Name Payer Address Payer Phone Subscriber Number Group Number Insured Name Patient Relationship to Insured Coverage Start Date Coverage End Date [employer] [address] [address] [place] [phone] [id number] ROXANNE ROGERS Self - patient is the insured 4 Secondary [employer] [place] [employer] [address] [address] [place] [address] [id number] ROXANNE ROGERS Self - patient is the insured 3 Dental Wrap [facility] [place] [address] [place] [address] [id number] ROXANNE ROGERS Self - patient is the insured 3
--- OUTSIDE RECORDS SUMMARY | 2024-08-25 10:56 | XMS_ITS | Encounter Summary ---
Author Organization [facility] Address [address] [place] [address] Care Team Providers Care Letter Of Credit Clerk Name Role Phone Parag Bradley MD Primary Care Provider [phone] Анна Ha NP Unavailable [phone] Encounter Details Date Type Department Care [...] often do you attend chur ch or hindu services? More than 4 times per year [...] Recorded Patient Health Questionnaire-2 Score 0 05/26/2023 [facility] of Occupat ional [facility] - Occupational Stress Questionnaire Answer Date [...] 10:40 AM EDT Routine [facility] [address] [place] [address] [place] [address] Orlin Castro, DO [address] [place] [address] [place], [place] [id number] 09/07/2024 1:00 PM EDT Office Visit [facility] [address] [place] [address] Анна Ha, SENIOR PRODUCT DEVELOPMENT SCIENTIST [address] [place] [address] 12/15/2024 3:00 PM EDT Office Visit [facility] [address] [place] [address] [place] [phone] Orlin Castro, [address] [place] [address] documented as of this encounter Procedures Procedure Name Priority Date/Time Associated Diagnosis Comments US OB TRANSVAGINAL 06/13/2023 11 :13 AM EDT [facility] PREG QUANT HCG Routine 06/13/2023 10 :49 AM EDT documented in this encounter Results * US OB TRANSVAGINAL (06/13/2023 11:13 AM EDT) Anatomical Region Laterality Modality Other 06/13/2023 11:1 3 AM EDT Narrative 06/13/2023 11:16 [place] [address] Ultrasound Report Signed Patient: ROXANNE MARSHALL MR#: [id number] : 1990 Acct:[id number] Age/Sex: 32 / F ADM Date: 06/13/23 Loc: [facility] Attending Dr: Orlin Castro D.O. Ordering Physician: Orlin Castro D.O. Date of Service: 06/13/23 Procedure(s): US OB transvaginal Accession Number(s): [id number] cc: Анна Ha SENIOR PRODUCT DEVELOPMENT SCIENTIST; Orlin Castro D.O. [place] [id number] Patient Name: ROXANNE MARSHALL MRN: [id number] date: 1990 Sex: F Assigned Patient Location: [facility] Current Patient Location: [facility] Accession/Order Number: [id number] Exam Date: 06/13/2023 09:58 Report Date: 06/13/2023 [...] Signed By: 06/13/23 1116 DD/ 1113 TD/TT: Diesel Dragline Operator: Procedure Note Radiology, Radiologist, MD - 06/13/2023 [place] [address] Ultrasound Report Signed Patient: ROXANNE MARSHALL DMR#: [id number] : 1990Acct:[id number] Age/Sex: 32 / FADM Date: 06/13/23 Loc: [facility] Attending Dr: Orlin Castro D.O. Ordering Physician: Orlin Castro D.O. Date of Service: 06/13/23 Procedure(s): US OB transvaginal Accession Number(s): [id number] cc: Анна Ha SENIOR PRODUCT DEVELOPMENT SCIENTIST; Orlin Castro D.O. [place] [address] Patient Name: ROXANNE MARSHALL MRN: [id number]:[id number] date: 1990 Sex: F Assigned Patient Location: [facility] Current Patient Location: [facility] Accession/Order Number: [id number] Exam Date: 06/13/2023 09:58 Report Date: 06/13/2023 [...] M.D. Signed By:06/13/23 1116 DD/ 1113 TD/TT: Diesel Dragline Operator: us Generic External Data Provider CLINISYNC [...] CLINISYNC F inal Result Performing Organization Address City/State/[facility] Co de Phone Number CLINISYNC TB documented in this encounter Visit Diagnoses Not on filedocumented in this encounter Care Teams Letter Of Credit Clerk Relationship Specialty Start Date End Date Parag Bradley MD [address] [place] [address] PCP - General Family Medicine 08/14/22 Анна Ha NP [address] [place] [address] PCP - [facility] 08/25/23 documented as of this encounter
--- OUTSIDE RECORDS SUMMARY | 2024-08-25 10:56 | XMS_ITS | Clinical Summary ---
Author Organization [facility] Address [address] [place] [address] Care Team Providers Care Diagrammer And Seamer Name Role Phone Parag Bradley MD Primary Care Provider [phone] Анна Ha NP Unavailable [phone] Allergies Active Allergy Reactions Criticality Noted Date Comments Other 11/25/2022 Powder on gloves Other Reaction(s): rash/itching Medications MV-Min-Fe Fum-FA-DHA ( 1 PO) Take 1 each by mouth Daily Active aspirin 81 MG EC tablet Take 81 mg by mouth Daily Active omeprazole (PriLOSEC) [address] capsuleIndicat ions:Heartburn during in second trimester ([facility]) Take 1 capsule (20 mg) by mouth in the morning. Take before meals. Do not crush or chew.. 30 capsule 11 5 05/11/19 26 Active traZODone (Desyrel) 100 MG tabletIndicati ons:Primary insomnia Take 1 tablet (100 mg) by mouth at bedtime 30 tablet 2 5 09/23/19 25 Active traZODone (Desyrel) 100 MG tabletIndicati ons:Primary insomnia Take 1 tablet (100 mg) by mouth at bedtime 30 tablet 2 5 08/24/19 25 Discontinued Active Problems Problem Noted Date Diagnosed Date [...] Encounters Date Type Department Care Team Description 08/23/2024 Refill [facility] [address] [place] [address] Анна Ha NP Primary insomnia 08/22/2024 Refill [facility] [address] [place] [address] Анна Ha NP Primary insomnia 08/18/2024 9:30 AM EDT Routine [facility] [address] [place] [phone] Ximena Carver NP Third trimester ([facility]); 34 weeks gestation of ([facility]) 08/18/2024 Clinisync Result Encounter [facility] External Department Unsolicited Provider, Generic External Data 08/18/2024 Gutierrezboo flowsheet [facility] [address] [place] [address] Ximena Carver NP 08/17/2024 Travel 08/13/2024 Clinisync Result Encounter NOMS External Department Unsolicited Provider, Generic External Data 08/11/2024 Clinisync Result Encounter NOMS External Department Unsolicited Vidya Jackson PA 08/06/2024 Patient Outreach [facility] [address] [place] [address] Vidya Oliva LPN 08/04/2024 2:20 PM EDT Routine [facility] [address] [place] [address] Orlin Castro, 32 weeks gestation of ([facility]); Third trimester ([facility]) 08/04/2024 Abstract [facility] [address] [place] [address] Анна Ha NP 08/04/2024 Clinisync Result Encounter NOMS External Department Unsolicited Provider, Generic External Data 08/03/2024 Travel 07/28/2024 Clinisync Result Encounter NOMS External Department Unsolicited Provider, Generic External Data 07/26/2024 Abstract [facility] [address] [place] [address] Orlin Castro, 07/23/2024 Clinisync Result Encounter NOMS External Department Unsolicited Provider, Generic External Data 07/21/2024 2:20 PM EDT Routine [facility] [place] [address] Vidya Jackson PA Third trimester ([facility]); 30 weeks gestation of ([facility]); History of gestational diabetes 07/21/2024 Telephone [facility] [address] [place] [address] Lizzy Wood MA 07/17/2024 Clinisync Result Encounter NOMS External Department Unsolicited Provider, Generic External Data 07/14/2024 Travel 07/08/[address] [place] [address] Leesa Coon MA 07/07/2024 Patient Outreach [facility] [address] [place] [address] Vidya Oliva LPN 07/06/2024 1:50 PM EDT Routine NOMS [address] [place] [address] Orlin Castro DO Third trimester ([facility]); 28 weeks gestation of ([facility]); Elevated glucose tolerance test; Diabetes mellitus screening; SGA (small for gestational age) ([facility]) 07/06/2024 1:30 PM EDT Ancillary Procedure NOM[facility] [address] [place] [address] Antepartum multigravida of advanced maternal age ([facility]) 07/05/2024 Clinisync Result Encounter NOMS External Department Unsolicited Provider, Generic External Data 06/16/2024 1:20 PM EDT Routine NOM[facility] [address] [place] [address] Ximena Carver NP Second trimester ([facility]); 25 weeks gestation of ([facility]); Screen for STD (sexually transmitted disease); Diabetes mellitus screening; Antepartum multigravida of advanced maternal age ([facility]) 06/16/2024 External Result Encounter NOMS External Department Unsolicited Orlin Castro DO 06/16/2024 Bamboo flowsheet NOM[facility] [address] [place] [address] Ximena Carver NP 06/15/2024 Travel 06/08/2024 Patient Outreach [facility] [address] [place] [address] Vidya Oliva LPN 06/03/2024 Travel from Last [...] often do you attend chur ch or jain services? More than 4 times per year 05/19/2023 Do you belong to any clubs o r organizations such as faith groups, unions, fraternal or athletic groups, or [...] Recorded Patient Health Questionnaire-2 Score 0 08/06/2024 [facility] of Occupat ional [facility] - Occupational Stress Questionnaire Answer Date [...] 10:40 AM EDT Routine [facility] [address] [place] [phone] Orlin Castro, DO [address] [facility] [address] [place], [place] [address] 09/07/2024 1:00 PM EDT Office Visit [facility] [address] [place] [address] Анна Ha, CLUB CONCIERGE [address] [place] [address] 12/15/2024 3:00 PM EDT Office Visit [facility] [address] [place] [address] Oriln Castro, DO [address] [place] [place], [place] [address] Health Maintenance Due Date Last Done Comments Cervical Cancer Screening 12/09/2028 HPV/Cotest 12/09/2028 Pap Smear 12/09/2028 12/10/2023, 11/25/2022 Influenza Vaccine Discontinued 12/08/2017 Goals Goal Patient Goal Type Associated Problems Recent Progress Patient-Stated? Author Reminders Care Plan OB Reminders No Open Scheduling, Background Procedures Procedure Name Priority Date/Time Associated Diagnosis Comments US OB BPP W NON-STRESS 08/18/2024 11:48 AM EDT POCT URINALYSIS DIPSTICK Routine 08/18/2024 10:28 AM EDT Third trimester ([facility]) US OB BPP W NON-STRESS 08/13/2024 5:27 PM EDT US OB BPP W NON-STRESS 08/11/2024 12:20 PM EDT POCT URINALYSIS DIPSTICK Routine 08/04/2024 2:36 PM EDT 32 weeks gestation of ([facility]) Third trimester ([facility]) US OB BPP W NON-STRESS 08/04/2024 11:43 AM EDT US OB GROWTH 07/28/2024 10:48 AM EDT GLUCOSE TOLERANCE 3 HOUR Routine 07/23/2024 9:09 AM EDT GLUCOSE 1 HOUR Routine 07/17/2024 9:48 AM EDT POCT URINALYSIS DIPSTICK Routine 07/06/2024 2:18 PM EDT Third trimester ([facility]) US OB FOLLOW UP TRANSABDOMINAL APPROACH Routine 07/06/2024 2:04 PM EDT Antepartum multigravida of advanced maternal age ([facility]) GLUCOSE 1 HOUR Routine 07/05/2024 10:48 AM EDT ALL CBC WITH AUTO DIFF Routine 10:48 AM EDT RECURRENT VAGINITIS (HTRX) Routine 06/16/2024 2:27 PM EDT POCT URINALYSIS DIPSTICK Routine 06/16/2024 1:50 PM EDT Second trimester ([facility]) PAP SMEAR Routine 12/10/2023 12:00 AM EDT from Last 3 Months or Most Recently Relevant to Health Maintenance Results * US OB BPP W NON-STRESS (08/18/2024 11:48 AM EDT) Only the most recent of4 resultswithin the time period is included. Anatomical Region Laterality Modality Other 08/18/2024 11:4 8 AM EDT Narrative 08/18/2024 11:51 [place] [address] Ultrasound Report Signed Patient: ROXANNE MARSHALL MR#: [id number] : 1990 Acct:[id number] Age/Sex: 33 / F ADM Date: 08/18/24 Loc: US Attending Dr: Vidya Jackson Ordering Physician: Vidya Jackson Date of Service: 08/18/24 Procedure(s): US OB BPP w non-stress Accession Number(s): [id number] cc: Анна Ha NP; Vidya Jackson The [place] [id number] Patient Name: ROXANNE MARSHALL MRN: [facility]:[id number] date: 1990 Sex: F Assigned Patient Location: [facility] Current Patient Location: Accession/Order Number: [id number] Exam Date: 08/18/2024 11:47 Report Date: 08/18/2024 11:48 At the request of: VIDYA JACKSON Procedure: US OB BPP w non-stress BIOPHYSICAL PROFILE: CLINICAL INFORMATION: History of gestational diabetes Z86.32 COMPARISON: 08/13/2024 There is a single live intrauterine gestation in cephalic presentation. The reported gestational age is 34 weeks 5 days. The heart rate beats per minute. FINDINGS: TONE: 1 or [...] Auguste M.D. 08/18/2024 11:48 AM Dictation Location: [place] [address] Electronically authenticated by: [id number] Y Date: 08/18/2024 11:48 Dictated By: Isatu Auguste M.D. Signed By: 08/18/24 1151 DD/ 1148 TD/TT: Electrician Rectifier Maintenance: Procedure Note Radiology, Radiologist, MD - 08/18/2024 [place] [address] Ultrasound Report Signed Patient: ROXANNE MARSHALL DMR#: [id number] : 1990Acct:[id number] Age/Sex: 33 / FADM Date: 08/18/24 Loc: US Attending Dr: Vidya Jackson Ordering Physician: Vidya Jackson Date of Service: 08/18/24 Procedure(s): US OB BPP w non-stress Accession Number(s): [id number] cc: Анна Ha NP; Vidya Jackson The [place] [id number] Patient Name: ROXANNE MARSHALL MRN: [facility]:[id number] date: 1990 Sex: F Assigned Patient Location: [facility] Current Patient Location: Accession/Order Number: [id number] Exam Date: 08/18/2024 11:47 Report Date: 08/18/2024 11:48 At the request of: VIDYA JACKSON Procedure: US OB BPP w non-stress BIOPHYSICAL PROFILE: CLINICAL INFORMATION: History of gestational diabetes Z86.32 COMPARISON: 08/13/2024 There is a single live intrauterine gestation in cephalic presentation.The reported gestational age is 34 weeks 5 days. The heart fenffgdwihto243 beats per minute. FINDINGS: TONE: 1 or [...] Auguste M.D. 08/18/2024 11:48 AM Dictation Location: [place] [address] Electronically authenticated by: [id number] Y Date: 1:48 Dictated By: Isatu Auguste M.D. Signed By:08/18/24 1151 DD/ 1148 TD/TT: Electrician Rectifier Maintenance: [facility] [place] Data Provider [facility] IMAGING Final Result * (ABNORMAL) POCT urinalysis dipstick manually resulted [...] ENTER/EDIT ORDERABLES Final Result * US OB GROWTH (07/28/2024 10:48 AM EDT) Anatomical Region Laterality Modality Other 07/28/2024 10:4 8 AM EDT Narrative 07/28/2024 10:51 [place] [address] Ultrasound Report Signed Patient: ROXANNE MARSHALL MR#: [id number] : 1990 Acct:[id number] Age/Sex: 33 / F ADM Date: 07/28/24 Loc: US Attending Dr: Orlin Castro D.O. Ordering Physician: Orlin Castro D.O. Date of Service: 07/28/24 Procedure(s): US OB growth Accession Number(s): [id number] cc: Анна Ha NP; Orlin Castro D.O. The [place] [id number] Patient Name: ROXANNE MARSHALL MRN: [facility]:[id number] date: 1990 Sex: F Assigned Patient Location: US Current Patient Location: US Accession/Order Number: [id number] Exam Date: 07/28/2024 10:44 Report Date: 07/28/2024 [...] Auguste M.D. 07/28/2024 10:48 AM Dictation Location: [place] [address] Electronically authenticated by: [id number] Y Date: 07/28/2024 10:48 Dictated By: Isatu Auguste M.D. Signed By: 07/28/24 1051 DD/ 1048 TD/TT: Electrician Rectifier Maintenance: Procedure Note Radiology, Radiologist, MD - 07/28/2024 [place] [address] Ultrasound Report Signed Patient: ROXANNE MARSHALL DMR#: [id number] : 1990Acct:[id number] Age/Sex: 33 / FADM Date: 07/28/24 Loc: US Attending Dr: Orlin Castro D.O. Ordering Physician: Orlin Castro D.O. Date of Service: 07/28/24 Procedure(s): US OB growth Accession Number(s): [id number] cc: Анна Ha CLUB CONCIERGE; Orlin Castro D.O. The [place] [address] Patient Name: ROXANNE MARSHALL MRN: [id number]:[id number] date: 1990 Sex: F Assigned Patient Location: US Current Patient Location: US Accession/Order Number: [id number] Exam Date: 07/28/2024 10:44 Report Date: 07/28/2024 [...] Auguste M.D. 07/28/2024 10:48 AM Dictation Location: [place] [address] Electronically authenticated by: [id number] Y Date: 0:48 Dictated By: Isatu Auguste M.D. Signed By:07/28/24 1051 DD/ 1048 TD/TT: Electrician Rectifier Maintenance: Generic External Data Provider CLINISYNC IMAGING Final [...] LAB BLOOD ORDERABLES Final Resul t [facility] * (ABNORMAL) GLUCOSE 1 HOUR (07/17/2024 9:48 AM EDT) Only the most recent of2 resultswithin the time period is included. GLUCOSE 1 HOUR 162(H) <130 mg/dL [facility] 07/17/2024 9:48 AM EDT 07/17/2024 9:49 AM EDT Narrative [facility] - 07/17/2024 10:52 AM EDT us Orlin Gloria DO LAB BLOOD ORDERABLES Final Resul t [facility] TB * US OB follow up transabdominal [...] II, MD, PHD at 07-Jul-2024 10:00:26 AM [facility] Procedure Note Tabitha Campbell MD - [...] signed by TABITHA CAMPBELL II, MD, PHD [id number] 10:00:26 AM [facility] us Orlin Gloria DO [facility] [place] PROCEDURES Final Resul t * [...] us Ximena Carver NP CLINISYNC Final Result [facility] * RECURRENT VAGINITIS (HTRX) (06/16/2024 2:27 PM EDT) Pathologist [facility] ATOPOBIUM VAGINAE 0.000 19.961 - 24.689 ppm 06/17/2024 8:02 AM EDT [facility] ATOPOBIUM VAGINAE Not Detected 19.961 - 24.689 ppm 06/17/2024 8:02 AM EDT [facility] [place] [place] BVAB 2,3 (BACTERIAL VAGINOSIS ASSOCIATED BACTERIA 2, 3); MOBILUNCUS SPP 0.000 19.961 - 24.689 ppm 06/17/2024 8:02 AM EDT [facility] [place] BVAB 2,3 (BACTERIAL VAGINOSIS ASSOCIATED BACTERIA 2, 3); MOBILUNCUS SPP Not Detected 19.961 - 24.689 ppm 06/17/2024 8:02 AM EDT [facility] [place] RANJANA ALBICANS, PARAPSILOSIS, TROPICALIS 0.000 19.961 - 30.770 ppm 06/17/2024 8:02 AM EDT [facility] RANJANA ALBICANS, PARAPSILOSIS, TROPICALIS Not Detected 19.961 - 30.770 ppm 06/17/2024 8:02 AM EDT [facility] RANJANA GLABRATA 0.000 23.000 - 32.138 ppm 06/17/2024 8:02 AM EDT [facility] RANJANA GLABRATA Not Detected 23.000 - 32.138 ppm 06/17/2024 8:02 AM EDT [facility] RANJANA KRUSEI 0.000 23.000 - 32.271 ppm 06/17/2024 8:02 AM EDT [facility] RANJANA KRUSEI Not Detected 23.000 - 32.271 ppm 06/17/2024 8:02 AM EDT [facility] CHLAMYDIA TRACHOMATIS 0.000 23.000 - 31.467 ppm 06/17/2024 8:02 AM EDT [facility] CHLAMYDIA TRACHOMATIS Not Detected 23.000 - 31.467 ppm 06/17/2024 8:02 AM EDT [facility] GARDNERELLA VAGINALIS 0.000 19.961 - 24.689 ppm 06/17/2024 8:02 AM EDT [facility] GARDNERELLA VAGINALIS Not Detected 19.961 - 24.689 ppm 06/17/2024 8:02 AM EDT [facility] MEGASPHAERA (TYPES 1, 2) 0.000 19.961 - 24.689 ppm 06/17/2024 8:02 AM EDT [facility] [place] MEGASPHAERA (TYPES 1, 2) Not Detected 19.961 - 24.689 ppm 06/17/2024 8:02 AM EDT [facility] [place] [place] NEISSERIA GONORRHOEAE 0.000 23.000 - 32.117 ppm 06/17/2024 8:03 AM EDT [facility] [place] NEISSERIA GONORRHOEAE Not Detected 23.000 - 32.117 ppm 06/17/2024 8:03 AM EDT [facility] [place] TRICHOMONAS VAGINALIS 0.000 23.000 - 32.119 ppm 06/17/2024 8:02 AM EDT [facility] [place] TRICHOMONAS VAGINALIS Not Detected 23.000 - 32.119 ppm 06/17/2024 8:02 AM EDT [facility] [place] MYCOPLASMA GENITALIUM 0.000 19.961 - 24.689 ppm 06/17/2024 8:02 AM EDT [facility] [place] [place] MYCOPLASMA GENITALIUM Not Detected 19.961 - 24.689 ppm 06/17/2024 8:02 AM EDT [facility] [place] [place] Tissue 06/16/2024 2:27 PM EDT 06/17/2024 1:54 AM EDT Orlin Gloria DO LAB BLOOD ORDERABLES Final Resul t [facility] [address] [facility] [place] [address] * Pap Smear (12/10/2023 12:00 AM EDT) Swab Cervical swab / Unknown Orlin Gloria DO LAB CYTOLOGY ORDERABLES Final Re sult EXTERNAL LAB from Last 3 Months or Most Recently Relevant to Health Maintenance Additional Health Concerns Active Problems Noted Date Diagnosed Date OB Reminders 02/11/2024 Insurance [employer] Care Teams Diagrammer And Seamer Relationship Specialty Start Date End Date Parag Bradley MD [address] [place] [phone] PCP - General Family Medicine 08/14/22 Анна Ha NP [address] [place] [address] PCP - [facility] 08/25/23
--- OUTSIDE RECORDS SUMMARY | 2024-08-25 10:56 | XMS_ITS | Encounter Summary ---
Author Organization [facility] Address [address] [place] [address] Care Team Providers Care City Distribution Clerk Name Role Phone Parag Bradley MD Primary Care Provider [phone] Анна Ha NP Unavailable [phone] Encounter Details Date Type Department Care [...] often do you attend chur ch or pentecostal services? More than 4 times per year 05/19/2023 Do you belong to any clubs o r organizations such as islam groups, unions, fraternal or athletic groups, or [...] Recorded Patient Health Questionnaire-2 Score 0 05/26/2023 [facility]at ional [facility] - Occupational Stress Questionnaire Answer [...] a senior care (including now)? No 05/19/2023 Comments Unknown Sex [...] Routine [facility] OB [address] [place] [address] [place] [address] Orlin Castro, DO [address] [place], [place] [address]Natacha [place], [place] [address] 09/07/2024 1:00 PM EDT Office Visit [facility] [address] [place] [address] Анна Ha, POWER PLANT ENGINEER [address] [place] [address] 12/15/2024 3:00 PM EDT Office Visit [facility] OB [address] [place] [address] Orlin Castro, [address] [place], [place] [address] documented as of this encounter Procedures Procedure Name Priority Date/Time Associated Diagnosis Comments US OB TRANSVAGINAL 06/26/2023 10 :14 AM EDT documented in this encounter Results * US OB TRANSVAGINAL (06/26/2023 10:14 AM EDT) Anatomical Region Laterality Modality Other 06/26/2023 10:1 4 AM EDT Narrative 06/26/2023 10:16 AM EDT The [address] [address] Ultrasound Report Signed Patient: ROXANNE MARSHALL MR#: [id number] : 1990 Acct:[id number] Age/Sex: 32 / F ADM Date: 06/26/23 Loc: NOMS Attending Dr: Orlin Castro D.O. Ordering Physician: Orlin Castro D.O. Date of Service: 06/26/23 Procedure(s): US OB transvaginal Accession Number(s): [id number] cc: Анна Ha NP; Orlin Castro D.O. The [address] [id number] Patient Name: ROXANNE MARSHALL MRN: [id number] date: 1990 Sex: F Assigned Patient Location: [facility] Current Patient Location: [facility] Accession/Order Number: [id number] Exam Date: 06/26/2023 09:09 Report Date: 06/26/2023 [...] Signed By: 06/26/23 1016 DD/ 1014 TD/TT: Gerontology Aide: Procedure Note Radiology, Radiologist, - 06/26/2023 [place] [address] Ultrasound Report Signed Patient: ROXANNE MARSHALL DMR#: [id number] : 1990Acct:[id number] Age/Sex: 32 / FADM Date: 06/26/23 Loc: NOMS Attending Dr: Orlin Castro D.O. Ordering Physician: Orlin Castro D.O. Date of Service: 06/26/23 Procedure(s): US OB transvaginal Accession Number(s): [id number] cc: Анна Ha POWER PLANT ENGINEER; Orlin Castro D.O. [place] [address] Patient Name: ROXANNE MARSHALL MRN: [id number] date: 1990 Sex: F Assigned Patient Location: [facility] Current Patient Location: [facility] Accession/Order Number: [id number] Exam Date: 06/26/2023 09:09 Report Date: 06/26/2023 [...] M.D. Signed By:06/26/23 1016 DD/ 1014 TD/TT: Gerontology Aide: us Generic External Data Provider [facility] Final Result documented in this encounter Visit Diagnoses Not on filedocumented in this encounter Care Teams City Distribution Clerk Relationship Specialty Start Date End Date Parag Bradley MD [address] [place] [address] PCP - General Family Medicine 08/14/22 Анна Ha NP [address] [place] [address] PCP - [facility] 08/25/23 documented as of this encounter
--- OUTSIDE RECORDS SUMMARY | 2024-08-25 10:56 | XMS_ITS | Encounter Summary ---
Author Organization [facility] Address [address] [place] [address] Care Team Providers Care Rv Detailer Name Role Phone Parag Bradley MD Primary Care Provider [phone] Анна Ha WINDOW SHADE CLOTH SEWER Unavailable [phone] Encounter Details Date Type Department Care Team (Late st Contact Info) Description 08/04/2024 Abstract [facility] [address] [place] [address] Анна Ha, VÍCTOR [address] [place] [address] Social History Tobacco Use Types Packs/Day Years [...] Recorded Patient Health Questionnaire-2 Score 0 08/06/2024 [facility] - Occupational Stress Questionnaire Answer Date [...] Description 09/02/2024 10:40 AM EDT Routine [facility] OB [address] [place] [address] Slava Castro, DO [address] [place] [address] [place] [address] 09/07/2024 1:00 PM EDT Office Visit [facility] [address] [place] [address] Анна Ha, VÍCTOR [address] [place] [address] 12/15/2024 3:00 PM EDT Office Visit [facility] OB [address] [facility] [place] [address] Slava Castro, [address] [place] [address] [place] [address] documented as of this encounter Goals Goal Patient Goal Type Associated Problems Recent Progress Patient-Stated? Author Reminders Care Plan OB Reminders No Open Scheduling, Background documented as of this encounter Visit Diagnoses Not on filedocumented in this encounter Additional Health Concerns Active Problems Noted Date Diagnosed Date OB Reminders 02/11/2024 documented as of this encounter Care Teams Rv Detailer Relationship Specialty Start Date End Date Parag Bradley MD [address] [place] [address] PCP - General Family Medicine 08/14/22 Анна Ha NP [address] [place] [address] PCP - [facility] 08/25/23 documented as of this encounter
--- OUTSIDE RECORDS SUMMARY | 2024-08-25 10:56 | XMS_ITS | Encounter Summary ---
Author Organization [facility] Address [address] [place] [address] Care Team Providers Care Gasoline Power Shovel Operator Name Role Phone Parag Bradley MD Primary Care Provider [phone] Анна Ha SHAKE PACKER Unavailable [phone] Reason for Visit * Reason Comments Med Refill Encounter Details Date Type Department Care Team (Late st Contact Info) Description 08/23/2024 Refill [facility] [address] [place] [address] Анна Ha, VÍCTOR [address] [place] [address] Primary insomnia Social History Tobacco [...] Recorded Patient Health Questionnaire-2 Score 0 08/06/2024 [facility] of Occupat ional [facility] - Occupational Stress Questionnaire Answer Date [...] place to sleep or slept in a [place] health care facility (including now)? No 05/19/2023 Estimated Date of [...] AM EDT Routine [facility] [address] [facility] [place] [address] Slava Castro DO [address] [place] [address] [address] [place], [place] [address] 09/07/2024 1:00 PM EDT Office Visit [facility] [address] [place] [address] Анна Ha NP [address] [place] [address] 12/15/2024 3:00 PM EDT Office Visit [facility] [address] [facility] [place] [address] Slava Castro DO [address] [place], [place] [address] [place] [address] documented as of this encounter Goals [...] documented as of this encounter Care Teams Gasoline Power Shovel Operator Relationship Specialty Start Date End Date Parag Bradley MD [address] [place] [address] PCP - General Family Medicine 08/14/22 Анна Ha NP [address] [place] [address] PCP - [facility] 08/25/23 documented as of this encounter
--- OUTSIDE RECORDS SUMMARY | 2024-08-25 10:56 | XMS_ITS | Encounter Summary ---
Author Organization [facility] Address [address] [place] [address] Care Team Providers Care Shell Trim Tool Setter Name Role Phone Parag Bradley MD Primary Care Provider [phone] Анна Ha NP Unavailable [phone] Encounter Details Date Type Department Care [...] often do you attend chur ch or synagogue services? More than 4 times [...] Recorded Patient Health Questionnaire-2 Score 0 05/26/2023 [facility] Occupat ional [facility] - Occupational Stress Questionnaire Answer Date [...] Description 09/02/2024 10:40 AM EDT Routine [facility] OB [address] [place] [address] [place] [address] Orlin Castro, DO [address] [place], [place] [address]Nat[place], [place] [address] 09/07/2024 1:00 PM EDT Office Visit [facility] [address] [place] [address] Анна Ha, COMMERCIAL DIRECTOR [address] [place] [address] 12/15/2024 3:00 PM EDT Office Visit [facility] OB [address] [place] [address] Orlin Castro, [address] [place], [place] [address] documented as of this encounter Procedures Procedure Name Priority Date/Time Associated Diagnosis Comments US OB TRANSVAGINAL 06/20/2023 12 :10 PM EDT documented in this encounter Results * US OB TRANSVAGINAL (06/20/2023 12:10 PM EDT) Anatomical Region Laterality Modality Other 06/20/2023 12:1 0 PM EDT Narrative 06/20/2023 12:12 PM EDT The [address] [address] Ultrasound Report Signed Patient: ROXANNE MARSHALL MR#: [id number] : 1990 Acct:[id number] Age/Sex: 32 / F ADM Date: 06/20/23 Loc: NOMS Attending Dr: Orlin Castro D.O. Ordering Physician: Orlin Castro D.O. Date of Service: 06/20/23 Procedure(s): US OB transvaginal Accession Number(s): [id number] cc: Анна Ha NP; Orlin Castro D.O. [place] [address] Patient Name: ROXANNE MARSHALL MRN: [id number] date: 1990 Sex: F Assigned Patient Location: [facility] Current Patient Location: [facility] Accession/Order Number: [id number] Exam Date: 06/20/2023 08:31 Report Date: 06/20/2023 [...] Signed By: 06/20/23 1212 DD/ 1210 TD/TT: Flower Planter: Procedure Note Radiology, Radiologist, - 06/20/2023 [place] [address] Ultrasound Report Signed Patient: ROXANNE MARSHALL DMR#: [id number] : 1990Acct:[id number] Age/Sex: 32 / FADM Date: 06/20/23 Loc: NOMS Attending Dr: Orlin Castro D.O. Ordering Physician: Orlin Castro D.O. Date of Service: 06/20/23 Procedure(s): US OB transvaginal Accession Number(s): [id number] cc: Анна Ha COMMERCIAL DIRECTOR; Orlin Castro D.O. The [place] [address] Patient Name: ROXANNE MARSHALL MRN: [id number] date: 1990 Sex: F Assigned Patient Location: [facility] Current Patient Location: [facility] Accession/Order Number: [id number] Exam Date: 06/20/2023 08:31 Report Date: 06/20/2023 [...] M.D. Signed By:06/20/23 1212 DD/ 1210 TD/TT: Flower Planter: us Generic External Data Provider [facility] Final Result documented in this encounter Visit Diagnoses Not on filedocumented in this encounter Care Teams Shell Trim Tool Setter Relationship Specialty Start Date End Date Parag Bradley MD [address] [place] [address] PCP - General Family Medicine 08/14/22 Анна Ha NP [address] [place] [address] PCP - [facility] 08/25/23 documented as of this encounter
--- OUTSIDE RECORDS SUMMARY | 2024-08-25 10:56 | XMS_ITS | Encounter Summary ---
Author Organization [facility] Address [address] [place] [address] Care Team Providers Care Mat Cutter Name Role Phone Parag Bradley MD Primary Care Provider [phone] Анна Ha NP Unavailable [phone] Encounter Details Date Type Department Care Team (Late st Contact Info) Description 08/18/2024 Clinisync Result Encounter [facility] External Department [...] often do you attend chur ch or zoroastrian services? More than 4 times per year [...] Recorded Patient Health Questionnaire-2 Score 0 08/06/2024 [facility] of Occupat ional [facility] [...] 10:40 AM EDT Routine [facility] [address] [place] [address] [place] [address] Slava Castro, [facility] [place], [place] [address] 09/07/2024 1:00 PM EDT Office Visit [facility] [address] [place] [address] Анна Ha, PROFESSIONAL ADVISOR [address] [place] [address] 12/15/2024 3:00 PM EDT Office Visit [facility] OB [address] [place], [place] [address] [address] Slava Castro, [facility] [place], [place] [address] documented as of this encounter Goals Goal Patient Goal Type Associated Problems Recent Progress Patient-Stated? Author Reminders Care Plan OB Reminders No Open Scheduling, Background documented as of this encounter Procedures Procedure Name Priority Date/Time Associated Diagnosis Comments US OB BPP W NON-STRESS 08/18/2024 11:48 AM EDT documented in this encounter Results * US OB BPP W NON-STRESS (08/18/2024 11:48 AM EDT) Anatomical Region Laterality Modality Other 08/18/2024 11:4 8 AM EDT Narrative 08/18/2024 11:51 [place] [address] Ultrasound Report Signed Patient: ROXANNE MARSHALL MR#: [id number] : 1990 Acct:[id number] Age/Sex: 33 / F ADM Date: 08/18/24 Loc: US Attending Dr: Vidya Jackson Ordering Physician: Vidya Jackson Date of Service: 08/18/24 Procedure(s): US OB BPP w non-stress Accession Number(s): [id number] cc: Анна Ha NP; Vidya Jackson The [place] [address] Patient Name: ROXANNE MARSHALL MRN: [id number] date: 1990 Sex: F Assigned Patient Location: [facility] Current Patient Location: Accession/Order Number: [id number] Exam Date: 08/18/2024 11:47 Report Date: 08/18/2024 [...] Auguste M.D. 08/18/2024 11:48 AM Dictation Location: [place] [address] Electronically authenticated by: [id number] Y Date: 08/18/2024 11:48 Dictated By: Isatu Auguste M.D. Signed By: 08/18/24 1151 DD/ 1148 TD/TT: Improvement Analyst: Procedure Note Radiology, Radiologist, - 08/18/2024 [place] [address] Ultrasound Report Signed Patient: ROXANNE MARSHALL DMR#: [id number] : 1990Acct:[id number] Age/Sex: 33 / FADM Date: 08/18/24 Loc: US Attending Dr: Vidya Jackson Ordering Physician: Vidya Jackson Date of Service: 08/18/24 Procedure(s): US OB BPP w non-stress Accession Number(s): [id number] cc: Анна Ha NP; Vidya Jackson The [place] [id number] Patient Name: ROXANNE MARSHALL MRN: [facility]:[id number] date: 1990 Sex: F Assigned Patient Location: [facility] Current Patient Location: Accession/Order Number: [id number] Exam Date: 08/18/2024 11:47 Report Date: 08/18/2024 11:48 At the request of: VIDYA JACKSON Procedure: US OB BPP w non-stress BIOPHYSICAL PROFILE: CLINICAL INFORMATION: History of gestational diabetes Z86.32 COMPARISON: 08/13/2024 There is a single live intrauterine gestation in cephalic presentation.The reported gestational age is 34 weeks 5 days. The heart [id number] beats per minute. FINDINGS: TONE: 1 or [...] Auguste M.D. 08/18/2024 11:48 AM Dictation Location: [place] [address] Electronically authenticated by: [id number] Y Date: 1:48 Dictated By: Isatu Auguste M.D. Signed By:08/18/24 1151 DD/ 1148 TD/TT: Improvement Analyst: us Generic External Data Provider [facility] Final Result documented in this encounter Visit Diagnoses Not on filedocumented in this encounter Additional Health Concerns Active Problems Noted Date Diagnosed Date OB Reminders 02/11/2024 documented as of this encounter Care Teams Mat Cutter Relationship Specialty Start Date End Date Parag Bradley MD [address] [place] [address] PCP - General Family Medicine 08/14/22 Анна Ha NP [address] [place] [address] PCP - [facility] 08/25/23 documented as of this encounter
--- OUTSIDE RECORDS SUMMARY | 2024-08-25 10:56 | XMS_ITS | Encounter Summary ---
Author Organization [facility] Address [address] [place] [address] Care Team Providers Care Recruiting Scheduler Name Role Phone Parag Bradley MD Primary Care Provider [phone] Анна Ha NP Unavailable [phone] Encounter Details Date Type Department Care Team (Late st Contact Info) Description 06/16/2023 Orders Only [facility] [address] [place] [address] Slava Castro, DO [address] [facility] [place] [address] [place] [address] Social History Tobacco Use Types Packs/Day Years [...] any clubs o r organizations such as pentecostal groups, unions, fraternal or athletic groups, or [...] Recorded Patient Health Questionnaire-2 Score 0 05/26/2023 [facility] - Occupational Stress Questionnaire Answer [...] 10:40 AM EDT [facility] [address] [place] [address] [place] [address] [place], [place] [address] 09/07/2024 1:00 PM EDT Office Visit [facility] [address] [place] [address] Анна Ha NP [address] [place] [address] 12/15/2024 3:00 PM EDT Office Visit [facility] [address] [place] [address] [address] [place], [place] [address] documented as of this encounter Procedures Procedure [...] on filedocumented in this encounter Care Teams Recruiting Scheduler Relationship Specialty Start Date End Date Parag Bradley MD [address] [place] [address] PCP - General Family Medicine 08/14/22 Анна Ha NP [address] [place] [address] [facility] 08/25/23 documented as of this encounter
--- OUTSIDE RECORDS SUMMARY | 2024-08-25 10:56 | XMS_ITS | Encounter Summary ---
Author Organization [facility] Address [address] [place] [address] Care Team Providers Care Heater Installer Name Role Phone Parag Bradley MD Primary Care Provider [phone] Анна Ha NP Unavailable [phone] Encounter Details Date Type Department Care Team (Late st Contact Info) Description 08/18/2024 Bamboo flowsheet [facility] [address] [facility] [place] [address] Ximena Carver NP [address] [facility] [place] [address] Social History Tobacco Use Types Packs/Day [...] How often do you attend chur or mu-ism services? More than 4 times per year 05/19/2023 Do you belong to any clubs o r organizations such as yazidism groups, unions, fraternal or athletic groups, or [...] Recorded Patient Health Questionnaire-2 Score 0 08/06/2024 [facility] - Occupational Stress Questionnaire Answer Date [...] place to sleep or slept in a snf (including now)? No 05/19/2023 Estimated Date of [...] Description 09/02/2024 10:40 AM EDT Routine [facility] OB [address] [facility] [place] [address] Slava Castro, [address] [place] [address] Dr [place], [place] [address] 09/07/2024 1:00 PM EDT Office Visit [facility] [address] [place] [address] Анна Ha NP [address] [place] [address] 12/15/2024 3:00 PM EDT Office Visit [facility] OB [address] [facility] [place] [address] Slava Castro DO [address] [place], [place] [address]Nat[place], [place] [address] documented as of this encounter Goals Goal Patient Goal Type Associated Problems Recent Progress Patient-Stated? Author Reminders Care Plan OB Reminders No Open Scheduling, Background documented as of this encounter Visit Diagnoses Not on filedocumented in this encounter Additional Health Concerns Active Problems Noted Date Diagnosed Date OB Reminders 02/11/2024 documented as of this encounter Care Teams Heater Installer Relationship Specialty Start Date End Date Parag Bradley MD [address] [place] [address] PCP - General Family Medicine 08/14/22 Анна Ha NP [address] [place] [address] PCP - [facility] 08/25/23 documented as of this encounter
--- OUTSIDE RECORDS SUMMARY | 2024-08-25 10:56 | XMS_ITS | Encounter Summary ---
Author Organization [facility] Address [address] [place] [address] Care Team Providers Care Distributing Clerk Name Role Phone Parag Bradley MD Primary Care Provider [phone] Анна Ha NP Unavailable [phone] Encounter Details Date Type Department Care [...] often do you attend chur ch or advent services? More than 4 times per year [...] [facility] of Occupat ional [facility] [...] Description 09/02/2024 10:40 AM EDT Routine [facility] OB [address] [place] [address] [place] [address] Orlin Castro, [facility] [place], [place] [address] 09/07/2024 1:00 PM EDT Office Visit [facility] [address] [place] [address] Анна Ha, RAMP AND CARGO SUPERVISOR [address] [place] [address] 12/15/2024 3:00 PM EDT Office Visit [facility] OB [address] [place], [place] [address] [place] [address] Orlin Castro, [facility] [place], [place] [address] documented as of this encounter Goals Goal [...] EDT Narrative 08/13/2024 5:29 PM EDT The [place] [id number] Ultrasound Report Signed Patient: ROXANNE MARSHALL MR#: [id number] : 1990 Acct:[id number] Age/Sex: 33 / F ADM Date: 08/13/24 Loc: US Attending Dr: Orlin Castro D.O. Ordering Physician: Orlin Castro D.O. Date of Service: 08/13/24 Procedure(s): US OB BPP w non-stress Accession Number(s): [id number] cc: Анна Ha NP; Orlin Castro D.O. The [address] [address] Patient Name: ROXANNE MARSHALL MRN: [id number] date: 1990 Sex: F Assigned Patient Location: [facility] Current Patient Location: Accession/Order Number: [id number] Exam Date: 08/13/2024 17:25 Report Date: 08/13/2024 [...] Camacho M.D. 08/13/2024 5:27 PM Dictation Location: [place] [address] Electronically authenticated by: [id number] Y Date: 08/13/2024 17:27 Dictated By: Nilo Camacho M.D. Signed By: 08/13/241728 DD/ 26 TD/TT: Hunting And Fishing Guide: Procedure Note Radiology, Radiologist, MD - 08/13/2024 [place] [address] Ultrasound Report Signed Patient: ROXANNE MARSHALL DMR#: [id number] : 1990Acct:[id number] Age/Sex: 33 / FADM Date: 08/13/24 Loc: US Attending Dr: Orlin Castro D.O. Ordering Physician: Orlin Castro D.O. Date of Service: 08/13/24 Procedure(s): US OB BPP w non-stress Accession Number(s): [id number] cc: Анна aH RAMP AND CARGO SUPERVISOR; Orlin Castro D.O. The [place] [id number] Patient Name: ROXANNE MARSHALL MRN: [id number] date: 1990 Sex: F Assigned Patient Location: [facility] Current Patient Location: Accession/Order Number: [id number] Exam Date: 08/13/2024 17:25 Report Date: 08/13/2024 [...] Camacho M.D. 08/13/2024 5:27 PM Dictation Location: [place] [address] Electronically authenticated by: [id number] Y Date: 7:27 Dictated By: Nilo Camacho M.D. Signed By:08/13/249 DD/ 26 TD/TT: Hunting And Fishing Guide: us Generic External Data Provider [facility] Final Result documented in this encounter Visit Diagnoses Not on filedocumented in this encounter Additional Health Concerns Active Problems Noted Date Diagnosed Date OB Reminders 02/11/2024 documented as of this encounter Care Teams Distributing Clerk Relationship Specialty Start Date End Date Parag Bradley MD [address] [place] [address] PCP - General Family Medicine 08/14/22 Анна Ha NP [address] [place] [address] PCP - [facility] 08/25/23 documented as of this encounter
--- OUTSIDE RECORDS SUMMARY | 2024-08-25 10:56 | XMS_ITS | Encounter Summary ---
Author Organization [facility] Address [address] [place] [address] Care Team Providers Care Microfilm Equipment Inspector Name Role Phone Parag Bradley MD Primary Care Provider Анна Ha NP Unavailable [phone] Encounter Details Date Type Department Care Team (Late st Contact Info) Description 02/11/2024 Abstract [facility] [address] [place] [address] Slava Castro, DO [address] [place], [facility] Social History Tobacco Use Types Packs/Day [...] often do you attend chur ch or restoration services? More than 4 times per year [...] Recorded Patient Health Questionnaire-2 Score 1 09/01/2023 [facility] of Occupat ional [facility] - Occupational Stress Questionnaire Answer [...] Description 09/02/2024 10:40 AM EDT Routine [facility] OB [address] [facility] [address] Slava Castro DO [address] [place] [address] Dr [place], [place] [id number] 09/07/2024 1:00 PM EDT Office Visit [facility] [address] [place] [address] Анна Ha NP [address] [place] [address] 12/15/2024 3:00 PM EDT Office Visit [facility] OB [address] [facility] [address] Slava Castro, [address] [place] [address] Dr [place], [place] [id number] documented as of this encounter Goals Goal Patient Goal Type Associated Problems Recent Progress Patient-Stated? Author Reminders Care Plan OB Reminders No Open Scheduling, Background documented as of this encounter Visit Diagnoses Not on filedocumented in this encounter Additional Health Concerns Active Problems Noted Date Diagnosed Date OB Reminders 02/11/2024 documented as of this encounter Care Teams Microfilm Equipment Inspector Relationship Specialty Start Date End Date Parag Bradley MD [address] [place] [address] PCP - General Family Medicine 08/14/22 Анна Ha NP [address] [place] [address] PCP - [facility] 08/25/23 documented as of this encounter
--- OUTSIDE RECORDS SUMMARY | 2024-08-25 10:56 | XMS_ITS | Encounter Summary ---
Author Organization [facility] Address [address] [place] [address] Care Team Providers Care Juke Box Servicer Name Role Phone Parag Bradley MD Primary Care Provider [phone] Анна Ha NP Unavailable [phone] Encounter Details Date Type Department Care [...] How often do you attend chur or oriental orthodox services? More than 4 times per year 05/19/2023 Do you belong to any clubs o r organizations such as restorationist groups, unions, fraternal or athletic groups, or [...] Recorded Patient Health Questionnaire-2 Score 0 08/06/2024 [facility] of Occupat ional Health - Occupational Stress [...] EDT Routine [facility] [address] [place] [address] Slava Castro, DO [address] [place], [place] [id number] 09/07/2024 1:00 PM EDT Office Visit [facility] [address] [place] [phone] Анна Ha NP [address] [place] [address] 12/15/2024 3:00 PM EDT Office Visit [facility] [address] [facility] [place] [address] Slava Castro, DO [address] [place] [address] Bia [place], [place] [id number] documented as of this encounter Goals Goal Patient Goal Type Associated Problems Recent Progress Patient-Stated? Author Reminders Care Plan OB Reminders No Open Scheduling, Background documented as of this encounter Visit Diagnoses Not on filedocumented in this encounter Additional Health Concerns Active Problems Noted Date Diagnosed Date OB Reminders 02/11/2024 documented as of this encounter Care Teams Juke Box Servicer Relationship Specialty Start Date End Date Parag Bradley MD [address] [place] [address] PCP - General Family Medicine 08/14/22 Анна Ha NP [address] [place] [address] [facility] 08/25/23 documented as of this encounter
--- OUTSIDE RECORDS SUMMARY | 2024-08-25 10:56 | XMS_ITS | Encounter Summary ---
Author Organization [facility] Address [address] [place] [address] Care Team Providers Care Peoplesoft Developer Name Role Phone Parag Bradley MD Primary Care Provider Анна Ha NP Unavailable [phone] Encounter Details Date Type Department Care Team (Late st Contact Info) Description 06/26/2023 Orders Only [facility] [address] [facility] [place] [address] Slava Castro, DO [address] [facility] [place], [place] [id number] Social History Tobacco Use Types Packs/Day Years [...] How often do you attend chur or rastafarian services? More than 4 times per year [...] Recorded Patient Health Questionnaire-2 Score 0 05/26/2023 [facility] Questionnaire Answer Date [...] in a snf (including now)? No 05/19/2023 Comments Unknown Sex and Gender Information Value Date Recorded Sex Assigned at Not on file Legal Sex Female 7:11 PM EDT Gender Identity Female 05/08/2022 7:11 PM EDT Sexual Orientation Not on file documented as of this encounter Plan of Treatment Upcoming Encounters Date Type Department Care Team (Late st Contact Info) Description 09/02/2024 10:40 AM EDT Routine [facility] [address] [place] [address] Slava Castro [address] [place], [place] [id number] 09/07/2024 1:00 PM EDT Office Visit [facility] [address] [place] [address] Анна Ha NP [address] [place] [address] 12/15/2024 3:00 PM EDT Office Visit [facility] [address] [place] [phone] Slava Castro [address] [place] [address] documented as of this encounter Procedures Procedure [...] on filedocumented in this encounter Care Teams Peoplesoft Developer Relationship Specialty Start Date End Date Parag Bradley MD [address] [place] [address] PCP - General Family Medicine 08/14/22 Анна Ha NP [address] [place] [address] PCP - [facility] 08/25/23 documented as of this encounter
--- OUTSIDE RECORDS SUMMARY | 2024-08-25 10:57 | XMS_ITS | Encounter Summary ---
Author Organization [facility] Address [address] [place] [address] Care Team Providers Care Mold Burner Name Role Phone Parag Bradley MD Primary Care Provider [phone] Анна Ha [facility] Unavailable [phone] Encounter Details Date Type Department Care Team (Late Contact Info) Description 03/04/2023 Abstract [facility] [address] [place] [address] Анна Ha, CLINICAL REHABILITATION LIAISON [address] [place] [address] Social History Tobacco Use Types Packs/Day Years [...] Routine [facility] [address] [place] [address] Slava Castro DO [address] [place] [address] 09/07/2024 1:00 PM EDT Office Visit [facility] [address] [place] [address] Анна Ha, VÍCTOR [address] [place] [address] 12/15/2024 3:00 PM EDT Office Visit [facility] [address] [facility] [place] [address] Slava Castro DO [address] [facility] [place] [address] documented as of this encounter Visit Diagnoses Not on filedocumented in this encounter Care Teams Mold Burner Relationship Specialty Start Date End Date Parag Bradley MD [address] [place] [address] PCP - General Family Medicine 08/14/22 Анна Ha, VÍCTOR [address] [place] [address] PCP - [facility] 08/25/23 documented as of this encounter
--- OUTSIDE RECORDS SUMMARY | 2024-08-25 10:57 | XMS_ITS | Encounter Summary ---
Author Organization [facility] Address [address] [place] [address] Care Team Providers Care Green Chain Marker Name Role Phone Parag Bradley MD Primary Care Provider [phone] Анна Ha NP Unavailable [phone] Encounter Details Date Type Department Care [...] often do you attend chur ch or amish services? More than 4 times per year 05/19/2023 Do you belong to any clubs o r organizations such as mosque groups, unions, fraternal or athletic groups, or [...] Recorded Patient Health Questionnaire-2 Score 1 09/01/2023 [facility] of Occupat ional [facility] - Occupational Stress [...] Description 09/02/2024 10:40 AM EDT Routine [facility] OB [address] [place], [place] [address] [address] Orlin Castro, [facility] [place], [place] [phone] 09/07/2024 1:00 PM EDT Office Visit [facility] [address] [place] [address] Анна Ha, ROBOT TECHNICIAN [address] [place] [address] 12/15/2024 3:00 PM EDT Office Visit [facility] OB [address] [place], [place] [address] [place] [address] Orlin Castro, [facility] [place], [place] [address] documented as of this encounter Goals Goal [...] AM EST Narrative 02/12/2024 4:31 [place] [address] Ultrasound Report Signed Patient: ROXANNE MARSHALL MR#: [id number] : 1990 Acct:[id number] Age/Sex: 33 / F ADM Date: 02/11/24 Loc: [facility] Attending Dr: Orlin Castro D.O. Ordering Physician: Orlin Castro D.O. Date of Service: 02/11/24 Procedure(s): US OB transvaginal Accession Number(s): [id number] cc: Анна Ha ROBOT TECHNICIAN; Orlin Castro D.O. [address] [address] Patient Name: ROXANNE MARSHALL MRN: [id number] date: 1990 Sex: F Assigned Patient Location: [facility] Current Patient Location: Accession/Order Number: [id number] Exam Date: 02/11/2024 09:39 Report Date: 02/12/2024 [...] Signed By: 02/12/24 0431 DD/ 0429 TD/TT: Data Center Technician: Procedure Note Radiology, Radiologist, MD Herr 02/12/2024 [place] [address] Ultrasound Report Signed Patient: ROXANNE MARSHALL DMR#: [id number] : 1990Acct:[id number] Age/Sex: 33 / FADM Date: 02/11/24 Loc: [facility] Attending Dr: Orlin Castro D.O. Ordering Physician: Orlin Castro D.O. Date of Service: 02/11/24 Procedure(s): US OB transvaginal Accession Number(s): [id number] cc: Анна Ha ROBOT TECHNICIAN; Orlin Castro D.O. [facility] [place] [id number] Patient Name: ROXANNE MARSHALL MRN: [id number] date: 1990 Sex: F Assigned Patient Location: [facility] Current Patient Location: Accession/Order Number: [id number] Exam Date: 02/11/2024 09:39 Report Date: 02/12/2024 [...] M.D. Signed By:02/12/24 0431 DD/ 0429 TD/TT: Data Center Technician: us Generic External Data Provider [facility] Final Result documented in this encounter Visit Diagnoses Not on filedocumented in this encounter Additional Health Concerns Active Problems Noted Date Diagnosed Date OB Reminders 02/11/2024 documented as of this encounter Care Teams Green Chain Marker Relationship Specialty Start Date End Date Parag Bradley MD [address] [place] [address] PCP - General Family Medicine 08/14/22 Анна Ha NP [address] [place] [address] PCP - [facility] 08/25/23 documented as of this encounter
--- OUTSIDE RECORDS SUMMARY | 2024-08-25 10:57 | XMS_ITS | Encounter Summary ---
Author Organization [facility] Address [address] [place] [address] Care Team Providers Care Signal And Communications Maintainer Name Role Phone Parag Bradley MD Primary Care Provider [phone] Анна Ha NP Unavailable [phone] Encounter Details Date Type Department Care Team (Late st Contact Info) Description 03/01/2024 Abstract [facility] OB [address] [place] [address] Slava Castro, DO [address] [place], [facility] Social History Tobacco Use Types Packs/Day [...] Recorded Patient Health Questionnaire-2 Score 1 09/01/2023 [facility] of Occupat ional [facility] - Occupational Stress Questionnaire Answer [...] Description 09/02/2024 10:40 AM EDT Routine [facility] OB [address] [facility] [address] Slava Castro DO [address] [place] [address] Dr [place], [place] [id number] 09/07/2024 1:00 PM EDT Office Visit [facility] [address] [place] [address] Анна Ha NP [address] [place] [address] 12/15/2024 3:00 PM EDT Office Visit [facility] OB [address] [facility] [address] Slava Castro, [address] [place] [address] Dr [place], [place] [address] documented as of this encounter Goals Goal Patient Goal Type Associated Problems Recent Progress Patient-Stated? Author Reminders Care Plan OB Reminders No Open Scheduling, Background documented as of this encounter Visit Diagnoses Not on filedocumented in this encounter Additional Health Concerns Active Problems Noted Date Diagnosed Date OB Reminders 02/11/2024 documented as of this encounter Care Teams Signal And Communications Maintainer Relationship Specialty Start Date End Date Parag Bradley MD [address] [place] [address] PCP - General Family Medicine 08/14/22 Анна Ha NP [address] [place] [address] PCP - [facility] 08/25/23 documented as of this encounter
--- OUTSIDE RECORDS SUMMARY | 2024-08-25 10:57 | XMS_ITS | Clinical Summary ---
Author Organization [facility] Address [address] [place] [address] Care Team Providers Care Manager Business Management Name Role Phone Unavailable Primary Care Provider [...]
--- OUTSIDE RECORDS SUMMARY | 2024-08-25 10:57 | XMS_ITS | Encounter Summary ---
Author Organization [facility] Address [address] [place] [address] Care Team Providers Care Heavy Media Operator Name Role Phone Parag Bradley MD Primary Care Provider Анна Ha NP Unavailable [phone] Encounter Details Date Type Department Care Team (Late st Contact Info) Description 03/04/2024 Abstract [facility] OB [address] [place] [address] Slava Castro, DO [address] Wesley [place], [facility] Social History Tobacco Use Types Packs/Day [...] often do you attend chur ch or taoist services? More than 4 times per year [...] Recorded Patient Health Questionnaire-2 Score 1 09/01/2023 [facility] of Occupat ional [facility] - Occupational Stress Questionnaire Answer Date [...] Description 09/02/2024 10:40 AM EDT Routine [facility] OB [address] [facility] [place] [address] Slava Castro DO [address] [place] [address] Dr [place], [place] [address] 09/07/2024 1:00 PM EDT Office Visit [facility] [address] [place] [address] Анна Ha NP [address] [place] [address] 12/15/2024 3:00 PM EDT Office Visit [facility] OB [address] [facility] [place] [address] Slava Castro, [address] [place] [address] Dr [place], [place] [address] documented as of this encounter Goals Goal Patient Goal Type Associated Problems Recent Progress Patient-Stated? Author Reminders Care Plan OB Reminders No Open Scheduling, Background documented as of this encounter Visit Diagnoses Not on filedocumented in this encounter Additional Health Concerns Active Problems Noted Date Diagnosed Date OB Reminders 02/11/2024 documented as of this encounter Care Teams Heavy Media Operator Relationship Specialty Start Date End Date Parag Bradley MD [address] [place] [address] PCP - General Family Medicine 08/14/22 Анна Ha NP [address] [place] [address] PCP - [facility] 08/25/23 documented as of this encounter
--- NOTE | 2024-08-25 11:00 | US_ITS ---
[facility] [place] [id number] Patient Name: ROXANNE ROGERS MRN: [id number] date: 1990 Sex: F Assigned Patient Location: [facility] Current Patient Location: [facility] Accession/Order Number: [id number] Exam Date: 08/25/2024 11:31 Report Date: 08/25/2024 11:33 At the request of: SHADE JACKSON Procedure: US OB BPP w non-stress BIOPHYSICAL PROFILE: CLINICAL INFORMATION: History of gestational diabetes COMPARISON: 08/18/2024 There is a single live intrauterine gestation in cephalic presentation. The reported gestational age is 35 weeks 5 days. The heart rate measures 144 beats per minute. FINDINGS: TONE: 1 or more episodes of activity extension and flexion of extremity or opening and closing of the hand [Y] 2/2 GROSS BODY MOVEMENTS: 3 or more discrete body or limb movements [Y] 2/2 BREATHING MOVEMENTS: 1 or more episodes of breathing lasting at least 30 seconds [Y] 2/2 LIVE: A single deepest vertical pocket of amniotic fluid greater than 2 cm [Y] 2/2 LIVE: 12.9 cm. This is in normal range. Total score: 8/8 US/ OB BPP w non-stress IMPRESSION: NORMAL BIOPHYSICAL PROFILE. Impression dictated by: Isatu Auguste M.D. 08/25/2024 11:33 AM Dictation Location: [place] [address] Electronically authenticated by: [id number] Y Date: 08/25/2024 11:33
[2024-08-25 11:31] VITALS: BP 121/77; PULSE 93
== END 2024-08-25 12:02 | disposition home or self-care (01) ==
LOC: US 10:54 → FBC 10:58
PROVIDERS: PCP Nurse Practitioner; Visit Provider Physician Assistant
DX: O26.893 Other specified pregnancy related conditions, third trimester (principal); Z86.32 Personal history of gestational diabetes; Z3A.35 35 weeks gestation of pregnancy
CPT/HCPCS: 76818

== ENCOUNTER 2024-08-28 13:42 | Outpatient (OUT) | payer OTHER, SELFPAY ==
--- OUTSIDE RECORDS SUMMARY | 2024-08-28 13:48 | XMS_ITS | CCD ---
Author Organization [facility] ion [facility] Care Team Providers Care Heavy Line Technician Name Role Phone AICHHOLZ, 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 АННА Primary Care Unavailable PAY, DR LIN Admitting Unavailable PAY, DR LIN Attending Unavailable GISELLE RESTREPO Consulting Unavailable GLORIA, DR ORDAZ Admitting Unavailable GLORIA, DR ORDAZ Attending Unavailable AICHHOLZ, 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 АННА Primary Care Unavailable GLORIA, DR ORDAZ Consulting Unavailable AICHHOLZ, 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 АННА Admitting Unavailable AICHHOLZ, 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 АННА Attending Unavailable AICHHOLZ, 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 АННА Primary Care Unavailable AICHHOLZ, 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 АННА Consulting Unavailable AICHHOLZ, 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 АННА Primary Care Unavailable DON, DR BIRD Admitting Unavailable DON, DR BIRD Attending Unavailable GISELLE RESTREPO Consulting Unavailable PHOEBE ALFARO Consulting Unavailable MD Dar Brody Primary Care Provider Orlin Castro Attending Provider Parag Bradley MD Primary Care Provider Aichholange LUMBER LOADER, Анна Unavailable Orlin Castro DO Attending Provider Mik Castroy Attending Unavailable Mik Castroy Admitting Unavailable Dar Brody Primary Care Unavailable Orlin aCstro Attending Unavailable Gloria, Orlin Admitting Unavailable VIDYA JACKSON Attending Unavailable VIDYA JACKSON Referring Unavailable GLORIAMIKY Attending Unavailable XIMENA CARVER Attending Unavailable GLORIA ORLIN Referring Unavailable GLORIA, ORLIN Attending Unavailable AICHHOLZ, АННА Attending Unavailable GLORIA, ORLIN Attending Unavailable GLORIA, ORLIN Attending Unavailable VIDYA JACKSON Attending Unavailable GLORIA, ORLIN Attending Unavailable MEHUL, XIMENA Attending Unavailable Allergies Allergy Classification Reported Allergen(s) [...] 81 mg by mouth Daily Active levonorgestrel 0.940374 mg/hr intrauterine system (2 sources) Progestin, Progestin-containi [...] capsule Indications: Heartburn during in second trimester ([facility]) Take 1 capsule (20 mg) by mouth [...] sources) Serotonin Reuptake Inhibitor Start: 02-26-2024 End: 09-22-2024 take 1 tablet by mouth at bedtime traZODone (Desyrel) 100 MG tablet Indications: Primary insomnia Take 1 tablet (100 mg) by mouth at bedtime 30 tablet 2 08/23/2024 09/22/2024 Active Start: 09-02-2023 take 1 tablet by [...] unspecified] 12-10-2023 Chronic Miscellaneous mental health disorders (2 sources) Primary insomnia; Translations: [Primary insomnia] 02-25-2024 Chronic Mood disorders (20 sources) Depressive disorder; Translations: [Depression] Onset: 09-01-2023 Resolved: 09-01-2023 09-01-2023 Chronic Other aftercare (1 source) 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) use of hormonal contraceptives; Translations: [RESORT HOST HORMONAL CONTRACEPTIVES] Onset: 02-22-2022 Episodic Other aftercare (1 source) 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; Translations: [OTH CUSTODIAL CURRENT DRUG THERAPY] Onset: 02-22-2022 Episodic Other [...] low weight; and growth retardation (2 sources) Rxely-hzi-duavc baby; Translations: [ small for gestational age, [...] Range Facility OB BPP W NON-STRESS on 08-25-[address] [address] Ultrasound Report Signed Patient: ROXANNE MARSHALL MR#: [id number] : 1990 Acct:[id number] Age/Sex: 33 / F ADM Date: 08/25/24 Loc: [facility] 253-[address]: Vidya Jackson Ordering Physician: Vidya Jackson Date of Service: 08/25/24 Procedure(s): US OB BPP w non-stress Accession Number(s): [id number] cc: Анна Ha NP; Vidya Jackson [place] [id number] Patient Name: ROXANNE MARSHALL MRN: [facility]:[id number] date: 1990 Sex: F Assigned Patient Location: [facility] Current Patient Location: [facility] Accession/Order Number: [id number] Exam Date: 08/25/2024 11:31 Report Date: 08/25/2024 11:33 At the request of: VIDYA JACKSON Procedure: US OB BPP w non-stress BIOPHYSICAL PROFILE: CLINICAL INFORMATION: History of gestational diabetes COMPARISON: 08/18/2024 There is a single live intrauterine gestation in cephalic presentation. The reported gestational age is 35 weeks 5 days. The heart rate measures 144 beats per minute. FINDINGS: TONE: 1 or [...] greater than 2 cm [Y] 2/2 LIVE: 12.9 cm. This is in normal range. Total score: 8/8 US/US OB BPP w non-stress IMPRESSION: NORMAL BIOPHYSICAL PROFILE. Impression dictated by: Isatu Auguste M.D. 08/25/2024 11:33 AM Dictation Location: [place] [address] Electronically authenticated by: [id number] Y Date: 08/25/2024 11:33 Dictated By: Isatu Auguset M.D. Signed By: 08/25/24 1135 DD/ 1133 TD/TT: Stone Mill Operator: [facility] Radiology, Radiologist, MD - 08/25/2024 [place] [address] Ultrasound Report Signed Patient: ROXANNE MARSHALL MR#: [id number] : 1990 Acct:[id number] Age/Sex: 33 / F ADM Date: 08/25/24 Loc: [facility] 253-[address]: Vidya Jackson Ordering Physician: Vidya Jackson Date of Service: 08/25/24 Procedure(s): US OB BPP w non-stress Accession Number(s): [id number] cc: Анна Ha NP; Vidya Jackson The [place] [address] Patient Name: ROXANNE MARSHALL MRN: [facility]:[id number] date: 1990 Sex: F Assigned Patient Location: [facility] Current Patient Location: [facility] Accession/Order Number: [id number] Exam Date: 08/25/2024 11:31 Report Date: 08/25/2024 11:33 At the request of: VIDYA JACKSON Procedure: US OB BPP w non-stress BIOPHYSICAL PROFILE: CLINICAL INFORMATION: History of gestational diabetes COMPARISON: 08/18/2024 There is a single live intrauterine gestation in cephalic presentation. The reported gestational age is 35 weeks 5 days. The heart rate measures 144 beats per minute. FINDINGS: TONE: 1 or [...] greater than 2 cm [Y] 2/2 LIVE: 12.9 cm. This is in normal range. Total score: 8/8 US/US OB BPP w non-stress IMPRESSION: NORMAL BIOPHYSICAL PROFILE. Impression dictated by: Isatu Auguste M.D. 08/25/2024 11:33 AM Dictation Location: [place] [address] Electronically authenticated by: [id number] Y Date: 08/25/2024 11:33 Dictated By: Isatu Auguste M.D. Signed By: 08/25/24 1135 DD/ 1133 TD/TT: Stone Mill Operator: [facility] Radiology Study observation (narrative) [facility] US OB BPP W NON-STRESS Ordered By: Radiologist Radiology on 08-25-2024 [facility] [employer] Work Phone: US OB BPP W NON-STRESS on 08-18-2024 [place] [address] Ultrasound Report Signed Patient: ROXANNE MARSHALL MR#: [id number] : 1990 Acct:[id number] Age/Sex: 33 / F ADM Date: 08/18/24 Loc: US Attending Dr: Vidya Jackson Ordering Physician: Vidya Jackson Date of Service: 08/18/24 Procedure(s): US OB BPP w non-stress Accession Number(s): [id number] cc: Анна Ha NP; Vidya Jackson [place] [id number] Patient Name: ROXANNE MARSHALL MRN: [facility]:[id number] date: 1990 Sex: F Assigned Patient Location: [facility] Current Patient Location: Accession/Order Number: [id number] Exam Date: 08/18/2024 11:47 Report Date: 08/18/2024 [...] Auguste M.D. 08/18/2024 11:48 AM Dictation Location: [place] [address] Electronically authenticated by: [id number] Y Date: 08/18/2024 11:48 Dictated By: Isatu Auguste M.D. Signed By: 08/18/24 1151 DD/ 1148 TD/TT: Stone Mill Operator: [facility] Radiology, Radiologist, MD - 08/18/2024 [place] [address] Ultrasound Report Signed Patient: ROXANNE MARSHALL MR#: [id number] : 1990 Acct:[id number] Age/Sex: 33 / F ADM Date: 08/18/24 Loc: US Attending Dr: Vidya Jackson Ordering Physician: Vidya Jackson Date of Service: 08/18/24 Procedure(s): US OB BPP w non-stress Accession Number(s): [id number] cc: Анна Ha NP; Vidya Jackson The [place] [id number] Patient Name: ROXANNE MARSHALL MRN: [facility]:[id number] date: 1990 Sex: F Assigned Patient Location: [facility] Current Patient Location: Accession/Order Number: [id number] Exam Date: 08/18/2024 11:47 Report Date: 08/18/2024 11:48 At the request of: VIDYA JACKSON Procedure: US OB BPP w non-stress BIOPHYSICAL PROFILE: CLINICAL INFORMATION: History of gestational diabetes Z86.32 COMPARISON: 08/13/2024 There is a single live intrauterine gestation in cephalic presentation. The reported gestational age is 34 weeks 5 days. The heart rate [id number] beats per minute. FINDINGS: TONE: 1 or [...] Auguste M.D. 08/18/2024 11:48 AM Dictation Location: [place] [address] Electronically authenticated by: [id number] Y Date: 08/18/2024 11:48 Dictated By: Isatu Auguste M.D. Signed By: 08/18/24 1151 DD/ 1148 TD/TT: Stone Mill Operator: [facility] Radiology Study observation (narrative) [facility] US OB BPP W NON-STRESS Ordered By: Radiologist Radiology on 08-18-2024 [facility] Work Phone: US OB BPP W NON-STRESS on 08-13-2024 [place] [address] Ultrasound Report Signed Patient: ROXANNE MARSHALL MR#: [id number] : 1990 Acct:[id number] Age/Sex: 33 / F ADM Date: 08/13/24 Loc: US Attending Dr: Orlin Castro D.O. Ordering Physician: Orlin Castro D.O. Date of Service: 08/13/24 Procedure(s): US OB BPP w non-stress Accession Number(s): [id number] cc: Анна Ha LUMBER LOADER; Orlin Castro D.O. The [place] [id number] Patient Name: ROXANNE MARSHALL MRN: [facility]:[id number] date: 1990 Sex: F Assigned Patient Location: [facility] Current Patient Location: Accession/Order Number: [id number] Exam Date: 08/13/2024 17:25 Report Date: 08/13/2024 [...] Camacho M.D. 08/13/2024 5:27 PM Dictation Location: [place] [address] Electronically authenticated by: [id number] Y Date: 08/13/2024 17:27 Dictated By: Nilo Camacho M.D. Signed By: 08/13/241728 DD/ 26 TD/TT: Stone Mill Operator: [facility] Radiology, Radiologist, MD - 08/13/2024 [place] [address] Ultrasound Report Signed Patient: ROXANNE MARSHALL MR#: [id number] : 1990 Acct:[id number] Age/Sex: 33 / F ADM Date: 08/13/24 Loc: US Attending Dr: Orlin Catsro D.O. Ordering Physician: Orlin Castro D.O. Date of Service: 08/13/24 Procedure(s): US OB BPP w non-stress Accession Number(s): [id number] cc: Анна Ha LUMBER LOADER; Orlin Castro D.O. [place] [id number] Patient Name: ROXANNE MARSHALL MRN: [id number]:[id number] date: 1990 Sex: F Assigned Patient Location: [facility] Current Patient Location: Accession/Order Number: [id number] Exam Date: 08/13/2024 17:25 Report Date: 08/13/2024 [...] Camacho M.D. 08/13/2024 5:27 PM Dictation Location: [place] [address] Electronically authenticated by: [id number] Y Date: 08/13/2024 17:27 Dictated By: Nilo Camacho M.D. Signed By: 08/13/241728 DD/ 26 TD/TT: Stone Mill Operator: [facility] Radiology Study observation (narrative) [facility] US OB BPP W NON-STRESS Ordered By: Radiologist Radiology on 08-13-2024 [facility] [employer] Work Phone: US OB BPP W NON-STRESS on 08-11-2024 [place] [address] Ultrasound Report Signed Patient: ROXANNE MARSHALL MR#: [id number] : 1990 Acct:[id number] Age/Sex: 33 / F ADM Date: 08/11/24 Loc: [facility] 254-[address]: Vidya Jackson Ordering Physician: Vidya Jackson Date of Service: 08/11/24 Procedure(s): US OB BPP w non-stress Accession Number(s): [id number] cc: Анна Ha NP; Vidya Jackson [place] [phone] Patient Name: ROXANNE MARSHALL MRN: [facility]:[id number] date: 1990 Sex: F Assigned Patient Location: [facility] Current Patient Location: [facility] Accession/Order Number: [id number] Exam Date: 08/11/2024 12:18 Report Date: 08/11/2024 [...] Auguste M.D. 08/11/2024 12:20 PM Dictation Location: [place] [address] Electronically authenticated by: [id number] Y Date: 08/11/2024 12:20 Dictated By: Isatu Auguste M.D. Signed By: 08/11/24 1222 DD/ 1220 TD/TT: Stone Mill Operator: [facility] Radiology, Radiologist, MD - 08/11/[address] [address] Ultrasound Report Signed Patient: ROXANNE MARSHALL MR#: [id number] : 1990 Acct:[id number] Age/Sex: 33 / F ADM Date: 08/11/24 Loc: [facility] 254-[address]: Vidya Jackson Ordering Physician: Vidya Jackson Date of Service: 08/11/24 Procedure(s): US OB BPP w non-stress Accession Number(s): [id number] cc: Анна Ha LUMBER LOADER; Vidya Jackson The [place] [address] Patient Name: ROXANNE MARSHALL MRN: [id number]:[id number] date: 1990 Sex: F Assigned Patient Location: [facility] Current Patient Location: [facility] Accession/Order Number: [id number] Exam Date: 08/11/2024 12:18 Report Date: 08/11/2024 12:20 At the request of: VIDYA JACKSNO Procedure: US OB BPP w non-stress BIOPHYSICAL [...] Auguste M.D. 08/11/2024 12:20 PM Dictation Location: [place] [address] Electronically authenticated by: [id number] Y Date: 08/11/2024 12:20 Dictated By: Isatu Auguste M.D. Signed By: 08/11/24 1222 DD/ 1220 TD/TT: Stone Mill Operator: [facility] Radiology Study observation (narrative) [facility] US OB BPP W NON-STRESS Ordered By: Radiologist Radiology on 08-11-2024 [facility] Work Phone: US OB BPP W NON-STRESS on 08-04-2024 [place] [address] Ultrasound Report Signed Patient: ROXANNE MARSHALL MR#: [id number] : 1990 Acct:[id number] Age/Sex: 33 / F ADM Date: 08/04/24 Loc: [facility] 250- Attending Dr: Vidya Jackson Ordering Physician: Vidya Jackson Date of Service: 08/04/24 Procedure(s): US OB BPP w non-stress Accession Number(s): [id number] cc: Анна Ha LUMBER LOADER; Vidya Jackson [place] [address] Patient Name: ROXANNE MARSHALL MRN: [id number] date: 1990 Sex: F Assigned Patient Location: [facility] Current Patient Location: [facility] Accession/Order Number: [id number] Exam Date: 08/04/2024 11:42 Report Date: 08/04/2024 [...] Auguste M.D. 08/04/2024 11:43 AM Dictation Location: [place] [address] Electronically authenticated by: [id number] Y Date: 08/04/2024 11:43 Dictated By: Isatu Auguste M.D. Signed By: 08/04/24 1146 DD/ 1143 TD/TT: Stone Mill Operator: [facility] Radiology, Radiologist, MD - 08/04/2024 [place] [address] Ultrasound Report Signed Patient: ROXANNE MARSHALL MR#: [id number] : 1990 Acct:[id number] Age/Sex: 33 / F ADM Date: 08/04/24 Loc: [place] [address]- Attending Dr: Vidya Jackson Ordering Physician: Vidya Jackson Date of Service: 08/04/24 Procedure(s): US OB BPP w non-stress Accession Number(s): [id number] cc: Анна Ha NP; Vidya Jackson [place] [address] Patient Name: ROXANNE MARSHALL MRN: [facility]:[id number] date: 1990 Sex: F Assigned Patient Location: [facility] Current Patient Location: [facility] Accession/Order Number: [id number] Exam Date: 08/04/2024 11:42 Report Date: 08/04/2024 [...] Auguste M.D. 08/04/2024 11:43 AM Dictation Location: [place] [address] Electronically authenticated by: [id number] Y Date: 08/04/2024 11:43 Dictated By: Isatu Auguste M.D. Signed By: 08/04/24 1146 DD/ 1143 TD/TT: Stone Mill Operator: [facility] Radiology Study observation (narrative) [facility] US OB BPP W NON-STRESS Ordered By: Radiologist Radiology on 08-04-2024 [facility] Work Phone: Urinalysis macro (dipstick) panel (U)on 08-04-2024 Bilirubin, UA Negative Negative - 4(70) +++ mg/dL [facility] Blood, UA Positive Negative - 50 Richy/mcL [facility] Comment on above: trace-intact Clarity, UA Clear [facility] Color, UA Yellow [facility] Glucose, UA Negative Negative - 2000(110) ++++ mg/dL [facility] Interpretation and review of laboratory results Abnormal [facility] Ketones, UA Negative Negative - 160(16) ++++ mg/dL [facility] Leukocytes, UA Negative Negative - 500+++ Tano/mcL [facility] Nitrite, UA Negative Negative - Positive [facility] pH, UA 7 5 - 9 [facility] Protein, UA Negative Negative - 2000(20) ++++ mg/dL [facility] Spec Grav, UA 1.01 1 - 1.03 [facility] Urobilinogen, UA 0.2 0.2 - 12 mg/dL Counts include 234 beds at the [facility] US OB GROWTHon 07-28-[address] [address] Ultrasound Report Signed Patient: ROXANNE MARSHALL MR#: [id number] : 1990 Acct:[id number] Age/Sex: 33 / F ADM Date: 07/28/24 Loc: US Attending Dr: Orlin Castro D.O. Ordering Physician: Orlin Castro D.O. Date of Service: 07/28/24 Procedure(s): US OB growth Accession Number(s): [id number] cc: Анна Ha LUMBER LOADER; Orlin Castro D.O. [place] [id number] Patient Name: ROXANNE MARSHALL MRN: [id number] date: 1990 Sex: F Assigned Patient Location: US Current Patient Location: US Accession/Order Number: [id number] Exam Date: 07/28/2024 10:44 Report Date: 07/28/2024 [...] Auguste M.D. 07/28/2024 10:48 AM Dictation Location: [place] [address] Electronically authenticated by: [id number] Y Date: 07/28/2024 10:48 Dictated By: Isatu Auguste M.D. Signed By: 07/28/24 1051 DD/ 1048 TD/TT: Stone Mill Operator: [facility] Radiology, Radiologist, - 07/28/2024 [place] [address] Ultrasound Report Signed Patient: ROXANNE MARSHALL MR#: [id number] : 1990 Acct:[id number] Age/Sex: 33 / F ADM Date: 07/28/24 Loc: US Attending Dr: Orlin Castro D.O. Ordering Physician: Orlin Castro D.O. Date of Service: 07/28/24 Procedure(s): US OB growth Accession Number(s): [id number] cc: Анна Ha LUMBER LOADER; Orlin Castro D.O. The [place] [address] Patient Name: ROXANNE MARSHALL MRN: [facility]:[id number] date: 1990 Sex: F Assigned Patient Location: US Current Patient Location: US Accession/Order Number: [id number] Exam Date: 07/28/2024 10:44 Report Date: 07/28/2024 [...] Auguste M.D. 07/28/2024 10:48 AM Dictation Location: [place] [address] Electronically authenticated by: [id number] Y Date: 07/28/2024 10:48 Dictated By: Isatu Auguste M.D. Signed By: 07/28/24 1051 DD/ 1048 TD/TT: Stone Mill Operator: [facility] Radiology Study observation (narrative) [facility] US OB GROWTHOrdered By: Tatiana ologist Radiology on 07-28-2024 [facility] Work Phone: GLUCOSE TOLERANCE 3 HOURon 0 07-23-2024 GLUCOSE TOLERANCE 3 HOUR High mg/dL [facility] Comment on above: GLU FAST 97H (<95) C ol: 07/23/24 0909 GLU 1HR 151 (<180) Col: 07/23/24 1013 GLU 2HR 151 (<155) Col: 07/23/24 1113 GLU 3HR 123 (<140) Col: 07/23/24 1213 Interpretation and review of laboratory results Abnormal [facility] OB FOLLOW UP TRANSABDOMIN AL APPROACHon 07-06-2024 [...] 07-Jul-2024 10:00:26 AM [facility] Normal Not Available Comment on above: Order Comment: US OB SCAN FOR GROWTH Estimated Date of Delivery: 09/24/24 Gestational Age as of 06/16/2024: 25w5d Urinalysis macro (dipstick) panel (U)on 07-06-2024 Bilirubin, UA Negative Negative - 4(70) +++ mg/dL [facility] Blood, UA Negative Negative - 50 Richy/mcL [facility] Clarity, UA Clear [facility] Color, UA Yellow [facility] Glucose, UA Negative Negative - 1999(110) ++++ mg/dL [facility] Interpretation and review of laboratory results Normal [facility] Ketones, UA Negative Negative - 160(16) ++++ mg/dL [facility] Leukocytes, UA Negative Negative - 500+++ Tano/mcL [facility] Nitrite, UA Negative Negative - Positive [facility] pH, UA 7 5 - 9 [facility] Protein, UA Negative Negative - 2000(20) ++++ mg/dL [facility] Spec Grav, UA 1.015 1 - 1.03 [facility] Urobilinogen, UA 0.2 0.2 - 12 mg/dL Counts include 234 beds at the [facility] ALL CBC WITH AUTO DIFFon BASOPHILS ABSOLUTE AUTO 0 [facility] Basophils/100 WBC (Bld) 0.3 % 0.2 - 2.0 % [facility] Eosinophils/100 WBC (Bld) 0.3 % Low 0.9 - 7.0 % [facility] Erythrocyte distribution width (RBC) [Ratio] 12.9 % 11.0 - 15.0 % [facility] Hematocrit (Bld) [Volume fraction] 35.5 % Low 36.0 - 48.0 % [facility] Hemoglobin (Bld) [Mass/Vol] 11.6 g/dL Low 12.0 - 16.0 g/dL [facility] IMMATURE GRANULOCYTES ABS AUTO 0.03 [facility] Immature granulocytes/100 WBC (Bld) 0.4 % 0.0 - 0.5 % [facility] Interpretation and review of laboratory results Abnormal [facility] LYMPHOCYTES ABSOLUTE AUTO 1.7 [facility] Lymphocytes/100 WBC (Bld) 22.3 % 20.5 - 60.0 % [facility] MCH (RBC) [Entitic mass] 30.7 pg 26.7 - 34.0 pg [facility] MCHC (RBC) [Mass/Vol] 32.7 g/dL 29.9 - 35.2 g/dL [facility] MCV (RBC) [Entitic vol] 93.9 fL 81.0 - 99.0 fL [facility] MONOCYTES ABSOLUTE AUTO 0.4 [facility] Monocytes/100 WBC (Bld) 5.5 % 1.7 - 12.0 % [facility] NEUTROPHILS ABSOLUTE AUTO 5.3 [facility] Neutrophils/100 WBC (Bld) 71.2 % 43.0 - 75.0 % [facility] Platelet mean volume (Bld) [Entitic vol] 9.6 fL 9.5 - 13.5 fL [facility] TBH EO # 0 [facility] TBH PLT 218 [facility] TB RBC 3.78 Low [facility] TBH WBC 7.4 [facility] RECURRENT VAGINITIS (HTRX)on 06-17-2024 ATOPOBIUM VAGINAE 0 [facility] ATOPOBIUM VAGINAE Not detected [facility] BVAB 2,3 (BACTERIAL VAGINOSIS ASSOCIATED BACTERIA 2, 3); MOBILUNCUS SPP 0 [facility] BVAB 2,3 (BACTERIAL VAGINOSIS ASSOCIATED BACTERIA 2, 3); MOBILUNCUS SPP Not detected [facility] RANJANA ALBICANS, PARAPSILOSIS, TROPICALIS 0 [facility] RANJANA ALBICANS, PARAPSILOSIS, TROPICALIS Not detected [facility] RANJANA GLABRATA 0 [facility] RANJANA GLABRATA Not detected [facility] RANJANA KRUSEI 0 [facility] RANJANA KRUSEI Not detected [facility] CHLAMYDIA TRACHOMATIS 0 [facility] CHLAMYDIA TRACHOMATIS Not detected [facility] GARDNERELLA VAGINALIS 0 [facility] GARDNERELLA VAGINALIS Not detected [facility] MEGASPHAERA (TYPES 1, 2) 0 [facility] MEGASPHAERA (TYPES 1, 2) Not detected [facility] MYCOPLASMA GENITALIUM 0 [facility] MYCOPLASMA GENITALIUM Not detected [facility] NEISSERIA GONORRHOEAE 0 [facility] NEISSERIA GONORRHOEAE Not detected [facility] TRICHOMONAS VAGINALIS 0 [facility] TRICHOMONAS VAGINALIS Not detected Counts include 234 beds at the [facility] Urinalysis macro (dipstick) panel (U)on 06-16-2024 Bilirubin, UA Negative Negative - 4(70) +++ mg/dL [facility] Blood, UA Negative Negative - 50 Richy/mcL [facility] Clarity, UA Clear [facility] Color, UA Yellow [facility] Glucose, UA Negative Negative - 1999(110) ++++ mg/dL [facility] Interpretation and review of laboratory results Normal [facility] Ketones, UA Negative Negative - 160(16) ++++ mg/dL [facility] Leukocytes, UA Negative Negative - 500+++ Tano/mcL [facility] Nitrite, UA Negative Negative - Positive [facility] pH, UA 6 5 - 9 [facility] Protein, UA Negative Negative - 1999(20) ++++ mg/dL [facility] Spec Grav, UA 1.01 1 - 1.03 [facility] Urobilinogen, UA 0.2 0.2 - 12 mg/dL Counts include 234 beds at the [facility] US OB 14+ WEEKS ANATOMY SCAN [...] II, MD, PHD at 11-May-2024 12:36:27 AM [facility] Normal Not Available Comment on above: Order Comment: US OB ANATOMY SINGLE W US OB CERVICAL LENGTH Estimated Date of Delivery: 09/24/24 Gestational Age as of 04/07/2024: 15w5d GLUCOSE 1 HOURon 04-10-2024 Glucose [Mass/Vol] 124 mg/dL NINF - 13 0 mg/dL [facility] Urinalysis macro (dipstick) panel (U)on 04-07-2024 Bilirubin, UA Negative Negative - 4(70) +++ mg/dL [facility] Blood, UA Positive Negative - 50 Richy/mcL [facility] Comment on above: trace Clarity, UA Clear [facility] Color, UA Yellow [facility] Glucose, UA Negative Negative - 1999(110) ++++ mg/dL [facility] Interpretation and review of laboratory results Abnormal [facility] Ketones, UA Positive Negative - 160(16) ++++ mg/dL [facility] Comment on above: 15 Leukocytes, UA Negative Negative - 500+++ Tano/mcL [facility] Nitrite, UA Negative Negative - Positive [facility] pH, UA 7 5 - 9 [facility] Protein, UA Negative Negative - 1999(20) ++++ mg/dL [facility] Spec Grav, UA 1.02 1 - 1.03 [facility] Urobilinogen, UA 1.0 0.2 - 12 mg/dL Counts include 234 beds at the [facility] Urinalysis macro (dipstick) panel (U)on 03-10-2024 Bilirubin, UA Negative Negative - 4(70) +++ mg/dL [facility] Blood, UA Positive Negative - 50 Richy/mcL [facility] Comment on above: trace-intact Clarity, UA Clear [facility] Color, UA Yellow [facility] Glucose, UA Negative Negative - 1999(110) ++++ mg/dL [facility] Interpretation and review of laboratory results Abnormal [facility] Ketones, UA Negative Negative - 160(16) ++++ mg/dL [facility] Leukocytes, UA Negative Negative - 500+++ Tano/mcL [facility] Nitrite, UA Negative Negative - Positive [facility] pH, UA 6.5 5 - 9 [facility] Protein, UA Negative Negative - 1999(20) ++++ mg/dL [facility] Spec Grav, UA 1.01 1 - 1.03 [facility] Urobilinogen, UA 0.2 0.2 - 12 mg/dL Counts include 234 beds at the [facility] BOX TESTon 02-27-2024 BOX TEST SENT OUT [facility] BOX1 [facility] BOX2 02/27/24 [facility] BOX [facility] Urine Cultureon 02-27-2024 Bacteria identified Cx Nom (U) No Growth 2 Days PERFORMED BY: [place] [address] PATHOLOGIST YARDER BOSS SHEREE MCCARTHY M.D. Normal [facility] Comment on above: Performed By: #### C UU #### [address] HCG ( test) Ql (U)o n 02-11-2024 Interpretation and review of laboratory results Abnormal [facility] Preg Test, Ur Positive Negative Counts include 234 beds at the [facility] Urinalysis macro (dipstick) panel (U)on 02-11-2024 Bilirubin, UA Positive Negative - 4(70) +++ mg/dL [facility] Comment on above: small Blood, UA Positive Negative - 50 Richy/mcL [facility] Comment on above: trace-lysed Clarity, UA Clear [facility] Color, UA Yellow [facility] Glucose, UA Negative Negative - 1999(110) ++++ mg/dL [facility] Interpretation and review of laboratory results Abnormal [facility] Ketones, UA Positive Negative - 160(16) ++++ mg/dL [facility] Comment on above: trace Leukocytes, UA Trace Negative - 500+++ Tano/mcL [facility] Nitrite, UA Negative Negative - Positive [facility] pH, UA 6 5 - 9 [facility] Protein, UA Positive Negative - 1999(20) ++++ mg/dL [facility] Comment on above: 100 Spec Grav, UA 1.03 1 - 1.03 [facility] Urobilinogen, UA 0.2 0.2 - 12 mg/dL [facility] PREG QUANT HCGon 024 HCG QUANTITATIVE 33423 mIU/mL [facility] Comment on above: 5-50 0.2-1 WEEK 50-500 1-2 WEEKS 100-5,000 2-3 WEEKS 500-10,000 3-4 WEEKS 1,000-50,000 4-5 WEEKS 10,000-100,000 5-6 WEEKS 15,000-200,000 6-8 WEEKS 10,000-100,000 2-3 MONTHS [facility] PREG QUANT HCGon 024 HCG QUANTITATIVE 33232 mIU/mL [facility] Comment on above: 5-50 0.2-1 WEEK 50-500 1-2 WEEKS 100-5,000 2-3 WEEKS 500-10,000 3-4 WEEKS 1,000-50,000 4-5 WEEKS 10,000-100,000 5-6 WEEKS 15,000-200,000 6-8 WEEKS 10,000-100,000 2-3 MONTHS [facility] PREG QUANT HCGon 024 HCG QUANTITATIVE 11136 mIU/mL [facility] Comment on above: 5-50 0.2-1 WEEK 50-500 1-2 WEEKS 100-5,000 2-3 WEEKS 500-10,000 3-4 WEEKS 1,000-50,000 4-5 WEEKS 10,000-100,000 5-6 WEEKS 15,000-200,000 6-8 WEEKS 10,000-100,000 2-[facility] [place] PREG QUANT HCGon 024 HCG QUANTITATIVE 83002 mIU/mL [facility] Comment on above: 5-50 0.2-1 WEEK 50-500 1-2 WEEKS 100-5,000 2-3 WEEKS 500-10,000 3-4 WEEKS 1,000-50,000 4-5 WEEKS 10,000-100,000 5-6 WEEKS 15,000-200,000 6-8 WEEKS 10,000-100,000 2-3 MONTHS [facility] PREG QUANT HCGon 024 HCG QUANTITATIVE 8911 mIU/mL [facility] Comment on above: 5-50 0.2-1 WEEK 50-500 1-2 WEEKS 100-5,000 2-3 WEEKS 500-10,000 3-4 WEEKS 1,000-50,000 4-5 WEEKS 10,000-100,000 5-6 WEEKS 15,000-200,000 6-8 WEEKS 10,000-100,000 2-3 MONTHS [facility] PREG QUANT HCGon 024 HCG QUANTITATIVE 4641 mIU/mL [facility] Comment on above: 5-50 0.2-1 WEEK 50-500 1-2 WEEKS 100-5,000 2-3 WEEKS 500-10,000 3-4 WEEKS 1,000-50,000 4-5 WEEKS 10,000-100,000 5-6 WEEKS 15,000-200,000 6-8 WEEKS 10,000-100,000 2-3 MONTHS [facility] PREG QUANT HCGon 024 HCG QUANTITATIVE 2241 mIU/mL [facility] Comment on above: 5-50 0.2-1 WEEK 50-500 1-2 WEEKS 100-5,000 2-3 WEEKS 500-10,000 3-4 WEEKS 1,000-50,000 4-5 WEEKS 10,000-100,000 5-6 WEEKS 15,000-200,000 6-8 WEEKS 10,000-100,000 2-3 MONTHS [facility] PREG QUANT HCGon 024 HCG QUANTITATIVE 884 mIU/mL [facility] Comment on above: 5-50 0.2-1 WEEK 50-500 1-2 WEEKS 100-5,000 2-3 WEEKS 500-10,000 3-4 WEEKS 1,000-50,000 4-5 WEEKS 10,000-100,000 5-6 WEEKS 15,000-200,000 6-8 WEEKS 10,000-100,000 2-3 MONTHS [facility] IGP,APTIMA HPV,AGE GDLNon -2023 AGE GDLN ACOG TESTING Note . [facility] Comment on above: TESTS RESULT FLAG UN ITS REF RANGE LAB Clinician Provided Cytology Information Source.............Cervix;Endocervix No. of containers..01 ThinPrep Vial Age Algo ACOG Sylvia... 30-65 01 FLAG LEGEND: L-Low Normal,H-High Normal,LL-Alert Low,HH-Alert High <-Panic Low,>-Panic High,A-Abnormal,AA-Critical Abnormal Performed at: 01 =G [address] [place] [address] Amber Tilley MD, HPV APTIMA Negative Negative [facility] Comment on above: This nucleic acid am plification test detects fourteen high- risk HPV types (16,18,31,33,35,39,45,51,52,56,58,59,66,68) without differentiation. Performed at: =[address] [id number] Hard[place] Floor Layer: Amber Tilley MD, Phone: [phone] Performed at: - [facility] [address], [place] [id number] [place] Floor Layer: Amber Tilley MD, Phone: [phone] IGP, APTIMA HPV, RFX 16/18,45 Note . [facility] Comment on above: TESTS RESULT FLAG UN ITS REF RANGE LAB DIAGNOSIS: 02 NEGATIVE FOR INTRAEPITHELIAL LESION OR MALIGNANCY. REACTIVE CELLULAR CHANGES AND/OR REPAIR ARE PRESENT. Specimen adequacy: 02 Satisfactory for evaluation. Endocervical and/or squamous metaplastic cells (endocervical component) are present. Performed by: Peggy Gandhi, Roving Frame Tender (ASCP) Electronically si... Divya Hoffman MD, Pathologist [...] High,A-Abnormal,AA-Critical Abnormal Performed at: 02 WB [facility] [address] [place] [address] Amber Tilley MD, BRUSH-SPATULA CERVIX ENDOCERVIX [facility] Cytology Cervical or vaginal smear or scraping studyon 12-10-2023 [facility] HCG ( test) Ql (U)o n 12-10-2023 Interpretation and review of laboratory results Normal [facility] Preg Test, Ur Negative Counts include 234 beds at the [facility] [place] 06-30-2023 L Specimen: [id number] Received: 07/01/23 Status: WEN [place] Num: [id number] Spec Type: Surgical Subm Dr: Orlin Castro Tissues: A Products of Conception - Spontaneous or Missed (POC) Procedures: HE/3, Gross/Micro L4 Age/ Patient Sex Location Account Attending Physician Roxanne Marshall 32/F [facility] [id number] Orlin Castro SPEC NUM: [id number] RECD: 07/01/23 STATUS: WEN [place] NUM: [id number] [place]: 06/30/[address]: Orlin Castro ENTERED: 07/01/[address] [facility] [address]: Rosey,Lab SPEC TYPE: Surgical [...] spongy harman tissue consistent with villous tissue. Sanitation Manager sections are submitted in A1?A3 to include the villous tissue in A1. Clinical history: Missed TW ---- Specimen: [id number] Received: 07/01/23 Status: WEN Jadiel Num: [id number] Spec Type: Surgical Subm Dr: Orlin Castro Tissues: A Products of Conception - Spontaneous or Missed (POC) Procedures: /3, Gross/Micro L4 ---- Patient: Roxanne Marshall [id number] (Continued) ---- Specimen: [id number] Received: 07/01/23 (Continued) Signed (signature on file) Shen Virgen MD 07/02/23 1859 ---- Specimen: [id number] Received: 07/01/23 Status: WEN [place] Num: [id number] Spec Type: Surgical Subm Dr: Orlin Castro Tissues: A Products of Conception - Spontaneous or Missed (POC) Procedures: HE/3, Gross/Micro L4 ---- Patient: Roxanne Marshall [id number] (Continued) ---- Specimen: [id number] Received: 07/01/23 (Continued) CPT Codes 26418 ---- ---- Specimen: [id number] Received: 07/01/23 Status: WEN [place] Num: [id number] Spec Type: Surgical Subm Dr: Orlin Castro Tissues: A Products of Conception - Spontaneous or Missed (POC) Procedures: HE/3, Gross/Micro L4 ---- Patient: Roxanne Marshall [id number] (Continued) ---- Signed (signature on file) Chin-Rishi Virgen MD 07/02/23 185 Normal [facility] Covid-19 PCR ([facility])on 01-25 SARS-CoV-2 (COVID-19) RNA JUAN+probe Ql (Unsp spec) Not detected Normal NOT DETECTED [facility] Comment on above: Result Comment: This test is not yet approved or cleared by the [place] FDA. When there are no FDA-approved or cleared tests available, and other criteria are met, FDA can make tests available under an emergency access mechanism called an Emergency Use Authorization (EUA). The EUA for this test is supported by the Threading Machine Operator of Health and Human Service's (HHS's) declaration [...] SARS-CoV-2. Performed By: #### C VDTB #### [facility] [address] [place] [address] Dr. Luis Virgen INFLUENZA A AND B AGon 02-20 [facility] SEE BELOW Normal [facility] Comment on above: Result Comment: Nega tive for Flu B protein antigen. Infection due to Flu B cannot be ruled out. Flu B antigen in the sample may be below the detection limit of the test. Performed By: #### I NFLUAB #### [facility] [address] [place] [address] Dr. Luis Virgen INFLUENZA A AG Positive Abnormal NEGATIVE SEE COMMENT [facility] Comment on above: Performed By: #### I NFLUAB #### [facility] [address] [place] [address] Dr. Luis Virgen INFLUENZA B AG Negative Normal NEGATIVE SEE COMMENT [facility] Comment on above: Performed By: #### I NFLUAB #### [facility] [address] [place] [address] Dr. Luis Virgen XR CHEST 1 Von 02-20-2022 XR CHEST 1 V EXAM: CHEST 1 VIEW HISTORY: COUGH TECHNIQUE: Chest, one view. COMPARISON: None. FINDINGS: Lungs are clear. No focal consolidation, pleural effusion, or pneumothorax. Pulmonary vasculature is within normal limits. Cardiomediastinal silhouette is normal. IMPRESSION: 1. No acute cardiopulmonary disease. Electronically authenticated by: PHOEBE ALFARO Date: 2022-02-20 17:46 Normal [facility] PAP ACOG PANEL 2: 30 to 65on 11-13-2021 . . Normal [facility] Comment on above: Result Comment: Perf ormed at: WB Performed By: #### [id number] #### [facility] [address] [place] [address] Dr. Luis Virgen Age Gdln ACOG Testing 30-65 Normal [facility] Comment on above: Performed By: #### [id number] #### [facility] [address] [place] [address] Dr. Luis Virgen DIAGNOSIS: Comment Normal [facility] Comment on above: Result Comment: NEGA TIVE FOR INTRAEPITHELIAL LESION OR MALIGNANCY. Performed at: WB Performed By: #### [id number] #### [facility] [address] [place] [address] Dr. Luis Virgen HPV Aptima Negative Normal Negative [facility] Comment on above: Result Comment: This nucleic acid amplification test detects fourteen high-risk HPV types (16,18,31,33,35,39,45,51,52,56,58,59,66,68) without differentiation. Performed at: =G Performed By: #### [id number] #### [facility] [address] [place] [address] Dr. Luis Virgen Methodology: Comment Normal [facility] Comment on above: Result Comment: This liquid based ThinPrep(R) pap test was screened with the use of an image guided system. Performed at: WB Performed By: #### 4 [id number] #### [facility] [address] [place] [address] Dr. Luis Virgen Note: Comment Normal [facility] Comment on above: Result Comment: The Pap smear is a screening test designed to aid in the detection of premalignant and malignant conditions of the uterine cervix. It is not a diagnostic procedure and should not be used as the sole means of detecting cervical cancer. Both false-positive and false-negative reports do occur. . Performed at: WB Performed By: #### [id number] #### [facility] [address] [place] [address] Dr. Luis Virgen Performed by: Comment Normal [facility] Comment on above: Result Comment: Maureen Del Cid, Roving Frame Tender (ASCP) Performed at: WB Performed By: #### [id number] #### [facility] [address] [place] [address] Dr. Luis Virgen Specimen adequacy: Comment Normal [facility] Comment on above: Result Comment: Sati sfactory for evaluation. Endocervical and/or squamous metaplastic cells (endocervical component) are present. Performed at: WB Performed By: #### 4 [id number] #### [facility] [address] [place] [address] Dr. Luis Virgen URon 08-20-2021 , QUAL Negative Normal NEGATIVE [facility] Comment on above: Performed By: #### P REGU #### [facility] [address] [place] [address] Dr. Luis Virgen CBC AUTO DIFFon 08-06-2021 BASO # 0.0 103/ul Normal 0.0-0.1 [facility] Comment on above: Performed By: #### C BC #### [facility] [address] [place] [address] Dr. Luis Virgen Basophils/100 WBC (Bld) 0.3 % Normal 0.2-2.0 [facility] Comment on above: Performed By: #### C BC #### [facility] [address] [place] [address] Dr. Luis Virgen EO # 0.0 103/ul Normal 0.0-0.7 [facility] Comment on above: Performed By: #### C BC #### [facility] [address] [place] [address] Dr. Luis Virgen Eosinophils/100 WBC (Bld) 0.3 % Critically low 0.9-7.0 [facility] Comment on above: Performed By: #### C BC #### [facility] [address] [place] [address] Dr. Luis Virgen Erythrocyte distribution width (RBC) [Ratio] 12.6 % Normal 11.0-15.0 [facility] Comment on above: Performed By: #### C BC #### [facility] [address] [place] [address] Dr. Luis Virgen Hematocrit (Bld) [Volume fraction] 41.5 % Normal 36.0-48.0 [facility] Comment on above: Performed By: #### C BC #### [facility] [address] [place] [address] Dr. Luis Virgen Hemoglobin (Bld) [Mass/Vol] 13.5 g/dL Normal 12.0-16.0 [facility] Comment on above: Performed By: #### C BC #### [facility] [address] [place] [address] Dr. Luis Virgen IG # 0.03 10e3/ul Normal 0.00-0.03 [facility] Comment on above: Performed By: #### C BC #### [facility] [address] [place] [address] Dr. Luis Virgen IG % 0.4 % Normal 0.0-0.5 [facility] Comment on above: Performed By: #### C BC #### [facility] [address] [place] [address] Dr. Luis Virgen LYMPH # 2.4 103/ul Normal 1.2-3.8 [facility] Comment on above: Performed By: #### C BC #### [facility] [address] [place] [address] Dr. Luis Virgen Lymphocytes/100 WBC (Bld) 31.8 % Normal 20.5-60.0 [facility] Comment on above: Performed By: #### C BC #### [facility] [address] [place] [address] Dr. Luis Virgen MANUAL DIFF REQ NO Normal [facility] Comment on above: Performed By: #### C BC #### [facility] [address] [place] [address] Dr. Luis Virgen MCH (RBC) [Entitic mass] 30.5 pg Normal 26.7-34.0 [facility] Comment on above: Performed By: #### C BC #### [facility] [address] [place] [address] Dr. Luis Virgen MCHC (RBC) [Mass/Vol] 32.5 g/dL Normal 29.9-35.2 [facility] Comment on above: Performed By: #### C BC #### [facility] [address] [place] [address] Dr. Luis Virgen MCV (RBC) [Entitic vol] 93.9 fL Normal 81.0-99.0 [facility] Comment on above: Performed By: #### C BC #### [facility] [address] [place] [address] Dr. Luis Virgne MONO # 0.6 103/ul Normal 0.3-0.8 [facility] Comment on above: Performed By: #### C BC #### [facility] [address] [place] [address] Dr. Luis Virgen Monocytes/100 WBC (Bld) 7.4 % Normal 1.7-12.0 [facility] Comment on above: Performed By: #### C BC #### [facility] [address] [place] [address] Dr. Luis Virgen NEUT # 4.5 103/ul Normal 1.4-6.5 [facility] Comment on above: Performed By: #### C BC #### [facility] [address] [place] [address] Dr. Luis Virgen Neutrophils/100 WBC (Bld) 59.8 % Normal 43.0-75.0 [facility] Comment on above: Performed By: #### C BC #### [facility] [address] [place] [address] Dr. Luis Virgen Platelet mean volume (Bld) [Entitic vol] 10.0 fL Normal 9.5-13.5 [facility] Comment on above: Performed By: #### C BC #### [facility] [address] [place] [address] Dr. Luis Virgen PLT 337 103/ul Normal 150-450 [facility] Comment on above: Performed By: #### C BC #### [facility] [address] [place] [address] Dr. Luis Virgen RBC 4.42 106/ul Normal 4.20-5.40 [facility] Comment on above: Performed By: #### C BC #### [facility] [address] [place] [address] Dr. Luis Virgen WBC 7.6 103/ul Normal 4.0-11.0 [facility] Comment on above: Performed By: #### C BC #### [facility] [address] [place] [address] Dr. Luis Virgen FREE T4on 06-13-2022 Free T4 [Mass/Vol] 0.91 ng/dL Normal 0.76-1.46 [facility] Comment on above: Performed By: #### F T4 #### [facility] [address] [place] [address] Dr. Luis Virgen LIPID PROFILEon 08-06-2021 CHOL-HDL RATIO NORM SEE BELOW Normal [facility] Comment on above: Result Comment: 3.3 - 4.4 LOW RISK 4.4 - 7.1 AVERAGE RISK 7.1 - 11.0 MODERATE RISK >11.0 HIGH RISK Performed By: #### C MP, TSH, LIPID #### [facility] [address] [address] [address] Luis Virgen Cholesterol [Mass/Vol] 154 mg/dL Normal <=200 [facility] Comment on above: Performed By: #### C MP, TSH, LIPID #### [facility] [address] [address] [address] Luis Virgen Cholesterol in HDL [Mass/Vol] 35 mg/dL Critically low 40-60 [facility] Comment on above: Performed By: #### C MP, TSH, LIPID #### [facility] [address] [place] [address] Dr. Luis Virgen Cholesterol in LDL [Mass/Vol] 80.8 mg/dL Normal [facility] Comment on above: Performed By: #### C MP, TSH, LIPID #### [facility] [address] [address] [address] Luis Virgen Cholesterol.total/C holesterol in HDL [Mass ratio] 4.4 {ratio} Normal [facility] Comment on above: Performed By: #### C MP, TSH, LIPID #### [facility] [address] [address] [address] Luis Virgen HDL NORMAL > or = 60 mg/dl - LO W CARDIOVASCULAR RISK <40 mg/dl - HIGH CARDIOVASCULAR RISK Normal [facility] Comment on above: Performed By: #### C MP, TSH, LIPID #### [facility] [address] [place] [address] Dr. Luis Virgen LDL CALC NORMAL SEE BELOW Normal [facility] Comment on above: Result Comment: <100 mg/dl OPTIMAL 100 - 129 mg/dl NEAR OR ABOVE OPTIMAL 130 - 159 mg/dl BORDERLINE HIGH 160 - 189 mg/dl HIGH >190 mg/dl VERY HIGH Performed By: #### C MP, TSH, LIPID #### [facility] [address] [address] [address] Luis Virgen Triglyceride [Mass/Vol] 191 mg/dL Critically high <=150 [facility] Comment on above: Performed By: #### C MP, TSH, LIPID #### [facility] [address] [address] [address] Luis Virgen VLDL CALC 38.2 mg/dL Normal [facility] Comment on above: Performed By: #### C MP, TSH, LIPID #### [facility] [address] [address] [address] Luis Virgen PROF 14(COMP METB)on 022 Albumin [Mass/Vol] 4.1 g/dL Normal 3.4-5.0 [facility] Comment on above: Performed By: #### C MP, TSH, LIPID #### [facility] [address] [address] [address] Luis Virgen Albumin/Globulin [Mass ratio] 1.2 {ratio} Normal [facility] Comment on above: Performed By: #### C MP, TSH, LIPID #### [facility] [address] [address] [address] Luis Virgen ALP [Catalytic activity/Vol] 73 U/L Normal 46-116 [facility] Comment on above: Performed By: #### C MP, TSH, LIPID #### [facility] [address] [address] [address] Luis Virgen ALT [Catalytic activity/Vol] 24 U/L Normal 14-59 [facility] Comment on above: Performed By: #### C MP, TSH, LIPID #### [facility] [address] [address] [address] Luis Virgen Anion gap [Moles/Vol] 13.2 mmol/L Normal [facility] Comment on above: Performed By: #### C MP, TSH, LIPID #### [facility] [address] [address] [address] Luis Virgen AST [Catalytic activity/Vol] 11 U/L Critically low 15-37 [facility] Comment on above: Performed By: #### C MP, TSH, LIPID #### [facility] [address] [address] [address] Luis Virgen Bilirubin [Mass/Vol] 0.8 mg/dL Normal 0.2-1.0 [facility] Comment on above: Performed By: #### C MP, TSH, LIPID #### [facility] [address] [address] [address] Luis Virgen Calcium [Mass/Vol] 8.9 mg/dL Normal 8.5-10.1 [facility] Comment on above: Performed By: #### C MP, TSH, LIPID #### [facility] [address] [place] [address] Dr. Luis Virgen Chloride [Moles/Vol] 103 mmol/L Normal 98-107 [facility] Comment on above: Performed By: #### C MP, TSH, LIPID #### [facility] [address] [place] [address] Dr. Luis Virgen CO2 [Moles/Vol] 27.5 mmol/L Normal 21.0-32.0 [facility] Comment on above: Performed By: #### C MP, TSH, LIPID #### [facility] [address] [place] [address] Dr. Luis Virgen Creatinine [Mass/Vol] 0.71 mg/dL Normal 0.55-1.02 [facility] Comment on above: Performed By: #### C MP, TSH, LIPID #### [facility] [address] [place] [address] Dr. Luis Virgen EGFR-AF [place] >60 Normal >=60 [facility] Comment on above: Performed By: #### C MP, TSH, LIPID #### [facility] [address] [place] [address] Dr. Luis Virgen EGFR-NON AF [place] >60 Normal >=60 [facility] Comment on above: Performed By: #### C MP, TSH, LIPID #### [facility] [address] [place] [address] Dr. Luis Virgen Globulin (S) [Mass/Vol] 3.5 g/dL Normal [facility] Comment on above: Performed By: #### C MP, TSH, LIPID #### [facility] [address] [place] [address] Dr. Luis Virgen Glucose [Mass/Vol] 101 mg/dL Normal 74-106 [facility] Comment on above: Performed By: #### C MP, TSH, LIPID #### [facility] [address] [place] [address] Dr. Luis Virgen Potassium [Moles/Vol] 4.7 mmol/L Normal 3.5-5.1 [facility] Comment on above: Performed By: #### C MP, TSH, LIPID #### [facility] [address] [place] [address] Dr. Luis Virgen Protein [Mass/Vol] 7.6 g/dL Normal 6.4-8.[address] [facility] Comment on above: Performed By: #### C MP, TSH, LIPID #### [facility] [address] [place] [address] Dr. Luis Virgen Sodium [Moles/Vol] 139 mmol/L Normal 136-[address] [facility] Comment on above: Performed By: #### C MP, TSH, LIPID #### [facility] [address] [place] [address] Dr. Luis Virgen Urea nitrogen [Mass/Vol] 9.0 mg/dL Normal 7.0-18.0 [facility] Comment on above: Performed By: #### C MP, TSH, LIPID #### [facility] [address] [place] [address] Dr. Luis Virgen Urea nitrogen/Creatinine [Mass ratio] 12.7 mg/mg Normal [facility] Comment on above: Performed By: #### C MP, TSH, LIPID #### [facility] [address] [place] [address] Dr. Luis Virgen TSHon 08-06-2021 TSH 0.924 uIU/mL Normal 0.358-3.740 [facility] Comment on above: Performed By: #### C MP, TSH, LIPID #### [facility] [address] [address] [address] Luis Virgen TSH RANGE SEE BELOW Normal [facility] Comment on above: Result Comment: <0.3 4 UIU/ml HYPERTHYROID 0.34-5.60 UIU/ml EUTHYROID >5.60 UIU/ml HYPOTHYROID Performed By: #### C MP, TSH, LIPID #### [facility] [address] [address] [address] Luis Virgen Vital Signs Date Time Vital Sign Value Performing Clinician Quinn elizondo 08-18-2024 09:37-0400 Body mass index (BMI) [Ratio] 33.07 kg/m2 Ximena Carver [employer]BER [employer] Work Phone: [facility] 08-18-2024 09:37-0400 Body weight 79.38 kg Ximena Carver [employer]UMBER LOADER Work Phone: [facility] 08-18-2024 09:37-0400 Diastolic blood pressure 82 mm[Hg] Ximena Carver [employer]UMBER LOADER Work Phone: [facility] 08-18-2024 09:37-0400 Systolic blood pressure 116 mm[Hg] Ximena Carver [employer]BER LOADER Work Phone: [facility] 08-04-2024 14:31-0400 Body mass index (BMI) [Ratio] 32.95 kg/m2 Orlin Gloria DO Work Phone: [facility] 08-04-2024 14:31-0400 Body weight 79.11 kg Orlin Gloria DO Work Phone: [facility] 08-04-2024 14:31-0400 Diastolic blood pressure 76 mm[Hg] Orlin Gloria DO Work Phone: [facility] 08-04-2024 14:31-0400 Systolic blood pressure 120 mm[Hg] Orlin Gloria DO Work Phone: [facility] 07-21-2024 14:30-0400 Body mass index (BMI) [Ratio] 33.14 kg/m2 Vidya Jackson PA Work Phone: [facility] 07-21-2024 14:30-0400 Body weight 79.56 kg Vidya Coco PA Work Phone: [facility] 07-21-2024 14:30-0400 Diastolic blood pressure 74 mm[Hg] Vidya Coco PA Work Phone: [facility] 07-21-2024 14:30-0400 Systolic blood pressure 110 mm[Hg] Vidya Coco PA Work Phone: [facility] 07-06-2024 14:09-0400 Body mass index (BMI) [Ratio] 32.69 kg/m2 Orlin Gloria DO Work Phone: [facility] 07-06-2024 14:09-0400 Body weight 78.47 kg Orlin Gloria DO Work Phone: [facility] 07-06-2024 14:09-0400 Diastolic blood pressure 72 mm[Hg] Orlin Gloria DO Work Phone: [facility] 07-06-2024 14:09-0400 Systolic blood pressure 118 mm[Hg] Orlin Gloria DO Work Phone: [facility] 06-16-2024 14:05-0400 Body mass index (BMI) [Ratio] 32.12 kg/m2 Ximena Carver [employer]UMBER LOADER Work Phone: [facility] 06-16-2024 14:05-0400 Body weight 77.11 kg Ximena Mehul [employer]UMBER LOADER Work Phone: [facility] 06-16-2024 14:05-0400 Diastolic blood pressure 70 mm[Hg] Ximena Mehul LUMBER LOADER Work Phone: [facility] 06-16-2024 14:05-0400 Systolic blood pressure 114 mm[Hg] Ximena Mehul LUMBER LOADER Work Phone: [facility] 04-07-2024 15:02-0500 Body mass index (BMI) [Ratio] 30.8 kg/m2 Vidya Jackson PA Work Phone: [facility] 04-07-2024 15:02-0500 Body weight 73.94 kg Vidya Jackson PA Work Phone: [facility] 04-07-2024 15:02-0500 Diastolic blood pressure 62 mm[Hg] Vidya Jackson PA Work Phone: [facility] 04-07-2024 15:02-0500 Systolic blood pressure 116 mm[Hg] Vidya Jackson PA Work Phone: [facility] 03-10-2024 14:45-0500 Body mass index (BMI) [Ratio] 30.63 kg/m2 Orlin Gloria DO Work Phone: [facility] 03-10-2024 14:45-0500 Body weight 73.54 kg Orlin Gloria DO Work Phone: [facility] 03-10-2024 14:45-0500 Diastolic blood pressure 66 mm[Hg] Orlin Gloria DO Work Phone: [facility] 03-10-2024 14:45-0500 Systolic blood pressure 110 mm[Hg] Orlin Gloria DO Work Phone: [facility] 02-11-2024 10:34-0500 Body mass index (BMI) [Ratio] 30.69 kg/m2 Noms Nurse [facility] 02-11-2024 10:34-0500 Body weight 73.66 kg Nom Nurse [facility] 02-11-2024 10:34-0500 Diastolic blood pressure 77 mm[Hg] [facility]oms Nurse [facility] 02-11-2024 10:34-0500 Systolic blood pressure 110 mm[Hg] Noms Nurse [facility] 12-10-2023 13:12-0400 Body mass index (BMI) [Ratio] 30.76 kg/m2 Orlin Gloria DO Work Phone: [facility] 12-10-2023 13:12-0400 Body weight 73.85 kg Orlin Gloria DO Work Phone: [facility] 12-10-2023 13:12-0400 Diastolic blood pressure 78 mm[Hg] Orlin Gloria DO Work Phone: [facility] 12-10-2023 13:12-0400 Systolic blood pressure 116 mm[Hg] Orlin Gloria DO Work Phone: [facility] Encounters Encounter Date Encounter Type Care Provider Facility Start: 08-25-2024 End: 08-25-2024 Clinisync Result Encounter Generic External Data Provider [facility] External [facility] Unsolicited Start: 08-25-2024 End: 08-25-2024 Clinisync Result Encounter Generic External Data Provider [facility] External Department Unsolicited Start: 08-23-2024 End: 08-23-2024 Refill Анна Ha [employer] LOADER Work Phone: [facility] Comment on above: Primary insomnia Start: 08-18-2024 End: 08-18-2024 Bamboo flowsheet Ximena Carver LUMBER LOADER Work Phone: [facility] Start: 08-18-2024 End: 08-18-2024 Bamboo flowsheet Ximena Carver LUMBER LOADER Work Phone: [facility] Start: 08-18-2024 End: 08-18-2024 Clinisync Result Encounter Generic External Data Provider [facility] External Department Unsolicited Start: 08-18-2024 End: 08-18-2024 Office outpatient visit 15 minutes Ximena Carver [employer]ER Work Phone: [facility] Comment on above: Third trimester preg eileen ([facility]); 34 weeks gestation of ([facility]) Start: 08-18-2024 End: 08-18-2024 ambulatory XIMENA CARVER Not Available Start: 08-13-2024 End: 08-13-2024 Clinisync [...] 06-16-2024 End: 06-17-2024 Bamboo flowsheet Ximena Carver NP Work Phone: [...] visit 15 minutes Vidya DESAI Work Phone: [facility] Comment on above: Need for [...] Start: 02-27-2024 End: 02-27-2024 ambulatory Orlin Gloria [facility] Work Phone: Start: 02-27-2024 End: 02-27-2024 Departed Referred Orlin Gloria DO Work Phone: [facility] Start: 02-27-2024 End: 02-27-2024 Clinisync Result [...] 06-30-2023 ambulatory MD Dar Brody Work Phone: [facility] Work Phone: Start: 06-30-2023 End: 06-30-2023 Departed Referred MD Dar Brody Work Phone: [facility] Start: 02-20-2022 End: 02-20-2022 ambulatory MARLYN HA Facility:[facility] Start: 11-06-2021 End: 11-06-[address] ORLIN CASTRO Facility:[facility] Start: 08-20-2021 End: 08-20-2021 ambulatory MARLYN HA Facility:[facility] Start: 08-06-2021 End: 08-07-2021 ambulatory 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 АННА HA Facility:[facility] Procedures Date Procedure Procedure Detail Performing Clinician Start: 08-25-2024 US OB BPP W NON-STRESS Generic External Data Provider Start: 08-18-2024 US OB BPP W NON-STRESS Generic External Data Provider Start: 08-13-2024 OB BPP W NON-STRESS Generic External Data Provider Start: 08-11-2024 OB BPP W NON-STRESS Vidya DESAI Work Phone: Start: 08-04-2024 Urnls dip stick/tabl et rgnt non-auto w/o micrscp Orlin Gloria DO Work Phone: Start: 08-04-2024 OB BPP W NON-STRESS Generic External Data Provider Start: 07-28-2024 OB GROWTH Generic Ex ternal Data Provider Start: 07-23-2024 GLUCOSE TOLERANCE 3 HOUR Orlin Gloria DO Work Phone: Start: 07-06-2024 Urnls dip stick/tabl et rgnt non-auto w/o micrscp Orlin Gloria DO Work Phone: Start: 07-05-2024 ALL CBC WITH AUTO DIFF Ximena Carver [employer]UMBER LOADER Work Phone: Start: 06-16-2024 RECURRENT VAGINITIS (HTRX) Orlin Gloria DO Work Phone: Start: 06-16-2024 Urnls dip stick/tabl et rgnt non-auto w/o micrscp Ximena Carver [employer]UM[employer] LOADER Work Phone: Start: 04-10-2024 GLUCOSE 1 HOUR [...] in Cervix by Cyto stain Ximena Carver NP Work Phone: Start: 12-10-2023 Cytp cerv/vag auto t hin layer prep mnl screen Orlin Castro DO Work Phone: Start: 11-25-2022 Microscopic observat ion [Identifier] in Cervix by Cyto stain Orlin Castro DO Work Phone: Plan of Treatment Date Care Activity Detail Author Start: 12-09-2028 Screening for malign ant neoplasm of cervix [facility] Start: 11-25-2025 Screening for malign ant neoplasm of cervix [facility] Start: 12-15-2024 End: 12-15-2024 Patient encounter procedure 12/15/2024 3:00 PM EDT Office Visit [facility] [address] [place] [address] Orlin Castro, DO [address] [place], [place] [id number] [facility] Start: 09-07-2024 End: 09-07-2024 Patient encounter procedure 09/07/2024 1:00 PM EDT Office Visit [facility] [address] [place] [address] Анна Ha NP [address] [place] [address] [facility] Start: 09-02-2024 End: 09-02-2024 Patient encounter procedure 09/02/2024 10:40 AM EDT Routine [facility] [address] [place] [address] Orlin Castro, DO [address] [place], [place] [id number] [facility] Start: 08-18-2024 End: 08-18-2024 Patient encounter procedure [facility] Comment on above: Arrived Start: 08-04-2024 End: 08-04-2024 Patient encounter procedure 08/04/2024 2:20 PM EDT Routine [facility] [address] [place] [phone] Orlin Castro DO [address] [facility] [address] [place] [address] [facility] Start: 07-21-2024 End: 07-21-2024 Patient encounter procedure 07/21/2024 2:20 PM EDT Routine [facility] [address] [place] [phone] Vidya Jackson PA [address] [facility] [address] [place], [place] [id number] [facility] Start: 07-21-2024 End: 01-21-2025 US biophysical profile w non stress test US biophysical profile w non stress test Imaging Routine History of gestational diabetes Expected: 07/21/2024 (Approximate), Expires: 01/21/2025 [facility] Work Phone: Comment on above: Expected: 07/21/2024 (Approximate), Expires: 01/21/2025 Start: 07-21-2024 End: 11-21-2024 US for US OB follow up transabdominal approach Imaging Routine History of gestational diabetes Expected: 07/21/2024, Expires: 11/21/2024 [facility] [employer] Comment on above: Expected: 07/21/2024 , Expires: 11/21/2024 Start: 07-06-2024 End: 07-06-2025 Measurement of glucose 1 hour after glucose challenge for glucose tolerance test Glucose tolerance, 1 hour Lab Routine Diabetes mellitus screening Expected: 07/06/2024 (Approximate), Expires: 07/06/2025 [facility] [employer] Work Phone: Comment on above: Expected: 07/06/2024 (Approximate), Expires: 07/06/2025 Start: 07-06-2024 End: 11-06-2024 US for US OB follow up transabdominal approach Imaging Routine SGA (small for gestational age) Expected: 07/06/2024, Expires: 11/06/2024 [facility] Comment on above: Expected: 07/06/2024 , Expires: 11/06/2024 Start: 07-06-2024 End: 07-06-2024 Patient encounter procedure 07/06/2024 1:50 PM EDT Routine [facility] [address] [place] [address] Orlin Castro, [address] [place] [address] [facility] Start: 07-06-2024 End: 07-06-2024 Professional / ancillary services management 07/06/2024 1:30 PM EDT Ancillary Procedure [facility] [address] [place] [address] [facility] Start: 06-16-2024 End: 06-16-2025 CBC panel - Blood by Automated count CBC Lab Routine Diabetes mellitus screening Expected: 06/16/2024 (Approximate), Expires: 06/16/2025 [facility] Comment on above: Expected: 06/16/2024 (Approximate), Expires: 06/16/2025 Start: 06-16-2024 End: 06-16-2025 Measurement of glucose 1 hour after glucose challenge for glucose tolerance test Glucose tolerance, 1 hour Lab Routine Diabetes mellitus screening Expected: 06/16/2024 (Approximate), Expires: 06/16/2025 [facility] Comment on above: Expected: 06/16/2024 (Approximate), Expires: 06/16/2025 Start: 06-16-2024 End: 10-16-2024 US for US OB follow up transabdominal approach Imaging Routine Antepartum multigravida of advanced maternal age Expected: 06/16/2024, Expires: 10/16/2024 [facility] Work Phone: Comment on above: Expected: 06/16/2024 , Expires: 10/16/2024 Start: 06-16-2024 End: 06-16-2024 Patient encounter procedure 06/16/2024 1:20 PM EDT Routine [facility] [address] [place] [phone] Ximena Carver, LUMBER LOADER [address] [place] [phone] Arrived [facility] Comment on above: Arrived Start: 05-10-2024 End: 05-10-2024 Patient encounter procedure 05/10/2024 2:40 PM EDT Routine [facility] [address] [place] [phone] Orlin Castro, [address] [facility] [place] [address] [facility] Start: 05-10-2024 End: 05-10-2024 Professional / ancillary services management 05/10/2024 1:30 PM EDT Ancillary Procedure [facility] [address] [place] [phone] [facility] Start: 04-07-2024 End: 04-07-2024 Patient encounter procedure [facility] Comment on above: Arrived Start: 04-07-2024 End: 05-05-2024 Alpha fetoprotein, maternal Alpha fetoprotein, maternal Lab Routine Need for maternal serum alpha-protein (MSAFP) screening Expected: 04/07/2024 (Approximate), Expires: 05/05/2024 [facility] Comment on above: Expected: 04/07/2024 (Approximate), Expires: 05/05/2024 Start: 04-07-2024 End: 04-07-2025 Measurement of glucose 1 hour after glucose challenge for glucose tolerance test Glucose tolerance, 1 hour Lab Routine Diabetes mellitus screening Expected: 04/07/2024 (Approximate), Expires: 04/07/2025 [facility] Work Phone: Comment on above: Expected: 04/07/2024 (Approximate), Expires: 04/07/2025 Start: 04-07-2024 End: 04-07-2025 US for US OB 14+ weeks anatomy scan Imaging Routine Screening, , for anatomic survey Expected: 04/07/2024, Expires: 04/07/2025 [facility] Healthcare Comment on above: Expected: 04/07/2024 , Expires: 04/07/2025 Start: 03-10-2024 End: 03-10-2024 Patient encounter procedure 03/10/2024 2:20 PM EST Routine [facility] [address] [place] [address] Orlin Castro, DO [address] [facility] [address] [place] [address] [facility] Start: 03-02-2024 End: 03-02-2024 Patient encounter procedure 03/02/2024 9:40 AM EST Office Visit [facility] [address] [place] [address] Анна Ha NP [address] [place] [address] [facility] Start: 02-27-2024 Urine culture [facility] Start: 02-27-2024 Bacteria identified in Urine by Culture Urine Culture [facility] Start: 02-11-2024 End: 02-10-2025 ABO/Rh ABO/Rh Lab Routine Missed menses , unspecified gestational age Expected: 02/11/2024 (Approximate), Expires: 02/10/2025 [facility] Healthcare Comment on above: Expected: 02/11/2024 (Approximate), Expires: 02/10/2025 Start: 02-11-2024 End: 02-10-2025 Blood type and Indirect antibody screen panel - Blood Type and screen Lab Routine Missed menses , unspecified gestational age Expected: 02/11/2024 (Approximate), Expires: 02/10/2025 [facility] Work Phone: Comment on above: Expected: 02/11/2024 (Approximate), Expires: 02/10/2025 Start: 02-11-2024 End: 02-10-2025 Drugs of abuse panel - Urine by Screen method Rapid drug screen, urine Lab Routine , unspecified gestational age Encounter for supervision of normal first in first trimester Expected: 02/11/2024 (Approximate), Expires: 02/10/2025 [facility] Comment on above: Expected: 02/11/2024 (Approximate), Expires: 02/10/2025 Start: 02-11-2024 End: 02-10-2025 US Pelvis transvaginal US OB transvaginal Imaging Routine Missed menses Expected: 02/11/2024 (Approximate), Expires: 02/10/2025 [facility] Comment on above: Expected: 02/11/2024 (Approximate), Expires: 02/10/2025 Start: 02-11-2024 End: 02-11-2024 ambulatory 02/11/2024 10:00 AM EST Initial [facility] [address] [place] [address] [facility] Start: 02-11-2024 End: 02-11-2024 Professional / ancillary services management 02/11/2024 9:30 AM EST Ancillary Procedure [facility] [address] [address] [facility] Start: 2018 Screening for malign ant neoplasm of cervix HPV/Cotest [facility] Bacteria identified in Urine by Culture Urine culture Microbiology Routine Missed menses Ordered: 02/11/2024 [facility] Comment on above: Ordered: 02/11/2024 CBC W Auto Different ial panel - Blood CBC and differential Lab Routine Missed menses , unspecified gestational age Ordered: 02/11/2024 [facility] Comment on above: Ordered: 02/11/2024 CHLAMYDIA TRACHOMATI S (GENITO/STI) CHLAMYDIA TRACHOMATIS (GENITO/STI) Lab Routine Screen for STD (sexually transmitted disease) Ordered: 06/16/2024 [facility] Comment on above: Ordered: 06/16/2024 Cytology Cervical or vaginal smear or scraping study Pap Smear Pathology and Cytology Routine Well woman exam with routine gynecological exam Ordered: 12/10/2023 [facility] Work Phone: Comment on above: Ordered: 12/10/2023 Hemoglobin A1c/Hemoglobin.total in Blood Hemoglobin A1c Lab Routine Missed menses , unspecified gestational age Ordered: 02/11/2024 [facility] Comment on above: Ordered: 02/11/2024 Hepatitis B virus surface Ag [Presence] in Serum or Plasma by Immunoassay Hepatitis B surface antigen Lab Routine Missed menses , unspecified gestational age Ordered: 02/11/2024 [facility] Comment on above: Ordered: 02/11/2024 Hepatitis C virus Ab [Presence] in Serum or Plasma by Immunoassay Hepatitis C antibody Lab Routine Missed menses , unspecified gestational age Ordered: 02/11/2024 [facility] Comment on above: Ordered: 02/11/2024 HIV-1/HIV-2 antigen/antibody combination immunoassay HIV-1 and HIV-2 antibodies Lab Routine Missed menses , unspecified gestational age Ordered: 02/11/2024 [facility] Comment on above: Ordered: 02/11/2024 Human papilloma viru s DNA [Presence] in Unspecified specimen by Probe with amplification HPV DNA probe, amplified Microbiology Routine Well woman exam with routine gynecological exam Ordered: 12/10/2023 [facility] Comment on above: Ordered: 12/10/2023 Neisseria gonorrhoea e DNA [Presence] in Unspecified specimen by JUAN with probe detection Neisseria gonorrhea DNA probe, direct Lab Routine Screen for STD (sexually transmitted disease) Ordered: 06/16/2024 [facility] Comment on above: Ordered: 06/16/2024 Reagin Ab [Presence] in Serum by RPR RPR Lab Routine Missed menses , unspecified gestational age Ordered: 02/11/2024 [facility] Comment on above: Ordered: 02/11/2024 Rubella antibody, IgG Rubella an tibody, IgG Lab Routine Missed menses , unspecified gestational age Ordered: 02/11/2024 [facility] Comment on above: Ordered: 02/11/2024 SURESWAB(R) ADVANCED VAGINITIS PLUS, TMA SURESWAB(R) ADVANCED VAGINITIS PLUS, TMA Pathology and Cytology Routine Screen for STD (sexually transmitted disease) Ordered: 06/16/2024 [facility] Work Phone: Comment on above: Ordered: 06/16/2024 Immunizations Immunization Date Immunization Notes Care Provider Fa cili 12-08-2017 influenza, seasonal, injectable, preservative free Orlin Castro DO Work Phone: [facility] Payers Date Payer Category Payer Self-pay [id number] 2023 Managed Care HMO (unspecified) [employer] [id number] 2023 Private Health Insurance [id number] 2022 Medicaid (Managed Care) [employer] [id number] 1988 Unknown [id number] 2.16.840.1.443532.3.579. 2.593 1988 Unknown [id number] 2.16.840.1.511277.3.579. 2.593 1988 Unknown [id number] 2.16.840.1.716303.3.579. 2.593 1988 Unknown [id number] 2.16.840.1.229491.3.579. 2.593 1988 Unknown [id number] 2.16.840.1.927758.3.579. 2.1258 1988 Unknown [id number] 2.16.840.1.740681.3.579. 2.1258 1988 Unknown [id number] 2.16.840.1.064101.3.579. 2.1258 1988 Unknown [id number] 2.16840.1.621455.3.579. 2.1258 1988 Unknown [id number] 2.16840.1.746643.3.579. 2.1258 1988 Unknown [id number] 2.840.1.245473.3.579. 2.1258 1988 Unknown [id number] 2.16840.1.039161.3.579. 2.1258 1988 Unknown [id number] 2.16840.1.937701.3.579. 2.1258 1988 Unknown [id number] 2.16840.1.822379.3.579. 2.1258 1988 Unknown [id number] 2.16840.1.078297.3.579. 2.1258 1988 Unknown [id number] 2.16840.1.808553.3.579. 2.1258 1988 Unknown [id number] 2.16840.1.831640.3.579. 2.1258 1988 Unknown [id number] 2.16840.1.848295.3.579. 2.1259 1959 Unknown [id number] Private Health Insurance [employer] Insurance Me [id number] Unknown [id number] 2.16.840.1.269352.3.579. 2.531 Unknown [id number] 2.16.840.1.337960.3.579. 2.531 Social History Date Type Detail Facility Start: 03-05-2019 End: 03-05-2019 Tobacco smoking status [facility] Never smoked tobacco (finding) [facility] Start: 1990 Sex Assigned At Female [facility] Start: 10-30-2022 Tobacco smoking status IAIS Ex-smoker [facility] End: 02-24-2014 History of [...] to any clubs or organizations such as baptist groups, unions, fraternal [...] [facility] Start: 02-28-2024 Sex Female (finding) [facility] Goals Date Patient Goal Desired Activity /State Personal health goal Clinical Notes 12-10-2023 to 08-18-2024 Ximena Carver NP - 08/18/2024 9:30 AM Fred [...] abnormal pap smear PAP SMEAR 03/07/2014 [facility] IN MEDICATION MANAGEMENT Drug Therapy -SVT TONSILLECTOMY 1992 [...] nursing note reviewed. Exam conducted with a rand butting machine operator present. Vitals: Estimated body mass index is 33.07 kg/m as calculated from the following: Height as of 24: 5' 1 . Weight as of this encounter: 175 lb. BP: 116/82 Patient's last menstrual period was 12/11/2023. ASSESSMENT & PLAN ICD-10-CM 1. Third trimester ([facility]) Z34.93 2. 34 weeks gestation of ([facility]) Z3A.34 Return OB: Patient presents [...] with NST/BPP and doing well. Documented by Ximena Carver NP on behalf of: Ximena Carver NP documented in this encounter [facility] 08-04-2024 History of Present illness Narrative Reason [...] for wellness examination in adult 09/01/2023 Depression ([facility]) 09/01/2023 Resolved Ambulatory Problems Diagnosis Date Noted Major depressive disorder, single episode, mild (HCC) ([facility]) 09/01/2023 Past Medical History: Diagnosis Date Abnormal Pap smear of cervix 2009 Contraception management Current mild episode of major depressive disorder without prior episode (HCC) ([facility]) Degenerative joint disease of spine Encounter for IUD removal History of abnormal cervical Pap smear [facility] Pap smear of vagina 2012 Overweight (BMI 25.0-29.9) SVT (supraventricular tachycardia) ([facility]) Torn meniscus HISTORY PAST MEDICAL HISTORY SOCIAL HISTORY Past Medical History: Diagnosis Date Abnormal Pap smear of cervix 2009 Contraception management Current mild episode of major depressive disorder without prior episode (HCC) ([facility]) 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 Artis needs to stop with preg. Cat. C [facility] Pap smear of vagina 2012 Overweight (BMI 25.0-29.9) SVT (supraventricular tachycardia) ([facility]) Torn meniscus Social History Tobacco Use Smoking [...] abnormal pap smear PAP SMEAR 03/07/2014 [facility] IN MEDICATION MANAGEMENT Drug Therapy -SVT TONSILLECTOMY 1992 [...] nursing note reviewed. Exam conducted with a rand butting machine operator present. Vitals: Estimated body mass index [...] Orlin Castro DO documented in this encounter [facility] 07-21-2024 History of Present illness Narrative Reason [...] for wellness examination in adult 09/01/2023 Depression ([facility]) 09/01/2023 Resolved Ambulatory Problems Diagnosis Date Noted [...] abnormal pap smear PAP SMEAR 03/07/2014 [facility] IN MEDICATION MANAGEMENT Drug Therapy -SVT TONSILLECTOMY 1992 [...] of: GISELLE Cramer documented in this encounter [facility] 07-06-2024 History of Present illness Narrative Reason [...] for wellness examination in adult 09/01/2023 Depression ([facility]) 09/01/2023 Resolved Ambulatory Problems Diagnosis Date Noted Major depressive disorder, single episode, mild (HCC) (CMS/HCC) 09/01/2023 Past Medical History: Diagnosis Date Abnormal Pap smear of cervix 2009 Contraception management Current mild episode of major depressive disorder without prior episode (HCC) ([facility]) Degenerative joint disease of spine Encounter for IUD removal History of abnormal cervical Pap smear LGS[facility] Pap smear of vagina 2012 Overweight (BMI 25.0-29.9) SVT (supraventricular tachycardia) ([facility]) Torn meniscus HISTORY PAST MEDICAL HISTORY SOCIAL [...] abnormal pap smear PAP SMEAR 03/07/2014 [facility] IN MEDICATION MANAGEMENT Drug Therapy -SVT TONSILLECTOMY 1992 [...] nursing note reviewed. Exam conducted with a rand butting machine operator present. Vitals: Estimated body mass index [...] Orlin Castro DO documented in this encounter [facility] 06-16-2024 History of Present illness Narrative Reason [...] for wellness examination in adult 09/01/2023 Depression ([facility]) 09/01/2023 Resolved Ambulatory Problems Diagnosis Date Noted Major depressive disorder, single episode, mild (HCC) ([facility]) 09/01/2023 Past Medical History: Diagnosis Date Abnormal Pap smear of cervix 2009 Contraception management Current mild episode of major depressive disorder without prior episode (HCC) ([facility]) Degenerative joint disease of spine Encounter for IUD removal History of abnormal cervical Pap smear [facility] Pap smear of vagina 2012 Overweight (BMI 25.0-29.9) SVT (supraventricular tachycardia) ([facility]) Torn meniscus HISTORY PAST MEDICAL HISTORY SOCIAL HISTORY Past Medical History: Diagnosis Date Abnormal Pap smear of cervix 2009 Contraception management Current mild episode of major depressive disorder without prior episode (HCC) ([facility]) 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 Artis needs to stop with preg. Cat. C [facility] Pap smear of vagina 2012 Overweight (BMI 25.0-29.9) SVT (supraventricular tachycardia) ([facility]) Torn meniscus Social History Tobacco Use Smoking [...] abnormal pap smear PAP SMEAR 03/07/2014 [facility] IN MEDICATION MANAGEMENT Drug Therapy -SVT TONSILLECTOMY 1992 [...] nursing note reviewed. Exam conducted with a rand butting machine operator present. Vitals: Estimated body mass index [...] Ximena Carver NP documented in this encounter [facility] 04-07-2024 History of Present illness Narrative Reason [...] abnormal pap smear PAP SMEAR 03/07/2014 [facility] IN MEDICATION MANAGEMENT Drug Therapy -SVT TONSILLECTOMY 1992 [...] of: GISELLE Cramer documented in this encounter [facility] 03-10-2024 History of Present illness Narrative Reason [...] 2012 Overweight (BMI 25.0-29.9) SVT (supraventricular tachycardia) ([facility]) Torn meniscus Social History Tobacco Use Smoking [...] abnormal pap smear PAP SMEAR 03/07/2014 [facility] IN MEDICATION MANAGEMENT Drug Therapy -SVT TONSILLECTOMY 1992 [...] nursing note reviewed. Exam conducted with a rand butting machine operator present. Vitals: Estimated body mass index [...] undercooked meat, and stay away from [facility]. Patient has been consulted regarding any [...] Orlin Castro DO documented in this encounter [facility] 02-11-2024 History of Present illness Narrative Reason [...] abnormal pap smear PAP SMEAR 03/07/2014 [facility] IN MEDICATION MANAGEMENT Drug Therapy -SVT TONSILLECTOMY 1992 [...] undercooked meat, and stay away from [facility]. Patient has also been advised to not change litter boxes and eat 6 small meals a day. Patient has been consulted regarding the do's and don'ts of . Patient was given labs and all questions and concerns were answered. Patient was given [place] to have completed at 10 weeks. Follow Up: Patient is to return in 4 weeks for routine OB appointment. Follow Up: Patient is to have labs drawn at directed and return to office for initial OB appointment with provider. Patient may call office as needed with any concerns or questions. Nurse Visit Completed by: Lynnette Stapleton LPN documented in this encounter [facility] 12-10-2023 History of Present illness Narrative Reason [...] abnormal pap smear PAP SMEAR 03/07/2014 [facility] IN MEDICATION MANAGEMENT Drug Therapy -SVT TONSILLECTOMY 1992 [...] nursing note reviewed. Exam conducted with a rand butting machine operator present. Vitals: Estimated body mass index [...] Evaluation note No assessment inform ation available [facility] Work Phone: Evaluation note Diagnosis [...] diabetes mellitus SGA (small for gestational age) [id number] without mention of malnutrition, unspecified (weight) documented [...] 30-39.9) Depression, unspecified depression type Third trimester ([facility]) state, incidental 34 weeks gestation of ([facility]) [facility] Diagnosis Primary insomnia- Primary Persistent disorder of initiating or maintaining sleep Obesity (BMI 30-39.9) Encounter for wellness examination in adult- Primary Major depressive disorder, single episode, mild Major depressive disorder, single episode, mild Primary insomnia Persistent disorder of initiating or maintaining sleep Obesity (BMI 30-39.9) Depression, unspecified depression type Primary insomnia Persistent disorder of initiating or [...] and content) DATE CREATED AUTHOR 02/22/2022 [facility] DATE CREATED AUTHOR AUTHOR'S ORGANIZ ATION 03/06/2024 [facility] DATE CREATED AUTHOR AUTHOR'S ORGANIZ ATION 08/19/[address] [facility] Care Teams (unrecognized sec tion and content) Team Status: Active Member Role Status Dates Dar Brody MD Primary Care Provider Active Team Status: Inactive Member Role Status Dates Dar Brody MD Primary Care Provider Active Start: June 30, 2023 End: June 30, 2023 Orlin Castro Attending Provider Active Start: Viky brewer 2023 End: June 30, 2023 Heavy Line Technician Relationship Specialty Start Date End Date Parag Bradley MD [address] [place] [address] PCP - [facility] 08/14/22 Анна Ha NP [address] [place] [address] [facility] 08/25/23 Heavy Line Technician Relationship Specialty Start Date End Date Parag Bradley MD [address] [place] [address] PCP - [facility] 08/14/22 Анна Ha NP [address] [place] [address] PCP - [facility] 08/25/23 Heavy Line Technician Relationship Specialty Start Date End Date Parag Bradley MD [address] [place] [address] PCP - [facility] 08/14/22 Анна Ha NP [address] [place] [address] [facility] 08/25/23 Heavy Line Technician Relationship Specialty Start Date End Date Parag Bradley MD [address] [place] [address] PCP - [facility] 08/14/22 Анна Ha NP [address] [place] [address] [facility] 08/25/23 Heavy Line Technician Relationship Specialty Start Date End Date Parag Bradley MD [address] [place] [address] PCP [facility] 08/14/22 Анна Ha NP [address] [place] [address] [facility] 08/25/23 Heavy Line Technician Relationship Specialty Start Date End Date Parag Bradley MD [address] [place] [address] PCP [facility] 08/14/22 Анна Ha NP [address] [place] [address] [facility] 08/25/23 Team Status: Inactive Member Role Status Dates Orlin Castro DO Attending Provider Active Start : February 27, 2024 End: February 27, 2024 Heavy Line Technician Relationship Specialty Start Date End Date Parag Bradley MD [address] [place] [phone] PCP - General Family [facility] 08/14/22 Анна Ha NP [address] [place] [address] [facility] 08/25/23 Heavy Line Technician Relationship Specialty Start Date End Date Parag Bradley MD [address] [place] [address] PCP - [facility] 08/14/22 Анна Ha NP [address] [place] [address] [facility] 08/25/23 Heavy Line Technician Relationship Specialty Start Date End Date Parag Bradley MD [address] [place] [address] PCP - [facility] 08/14/22 Анна Ha NP [address] [place] [address] [facility] 08/25/23 Heavy Line Technician Relationship Specialty Start Date End Date Parag Bradley MD [address] [place] [address] PCP - [facility] 08/14/22 Анна Ha NP [address] [place] [address] [facility] 08/25/23 Heavy Line Technician Relationship Specialty Start Date End Date Parag Bradley MD [address] [place] [address] PCP - General Family Medicine 08/14/22 Анна Ha NP [address] [place] [address] PCP - [facility] 08/25/23 Goals (unrecognized section and content) Goals may be documented in a n alternate sectionGoals may be documented in an alternate section Reason for Visit (unrecogniz ed section and content) Reason Comments Well Women Visit Reason Comments Amenorrhea Reason Onset Date Comments Med Refill 02/25/2024 Reason Comments Routine Visit Reason Comments Med Refill FOR RECORDS PERTAINING TO PATIENTS WHO ARE [...] BE BASED ON THE PRIMARY CLINICAL RECORDS. [facility] [employer] [facility]. provides no warranty or guarantee of the accuracy or completeness of information in this document.
[2024-08-28 21:07] VITALS: BP 111/72; PULSE 64
== END 2024-08-28 21:38 | disposition home or self-care (01) ==
LOC: FBCO 13:46 → FBC 21:04
PROVIDERS: PCP Nurse Practitioner; Visit Provider Obstetrics & Gynecology
DX: O09.523 Supervision of elderly multigravida, third trimester (principal); Z3A.36 36 weeks gestation of pregnancy
CPT/HCPCS: 59025

== ENCOUNTER 2024-09-01 11:11 | Outpatient (OUT) | payer OTHER, SELFPAY ==
--- OUTSIDE RECORDS SUMMARY | 2021-03-22 12:00 | XMS_ITS | Continuity of Care Document ---
Author Organization [facility] Address [address] [place] [address] Phone Care Team Providers Care Skidder Driver Name Role Phone Tash Sandhu DMD Unavailable Unavailable Allergies, Adverse Reactions, Alerts Substance Reaction Status Criticality No Known Allergies Active No Inform ation Medications Medication Instructions Dosage Effective Dates (start - stop) Status Comments Mirena 20 mcg/24 hours (6 yrs) 52 mg intrauterine device - Active Procedures Procedure Date Nutrit Couns For Control Of [place] Dis Feb Bitewings-three Films Panoramic Film Comp Oral Eval New/estab Patient 2021 Oral Hygiene Instruction Limited Oral Eval Extract; Erupted Th/exposted Rt 021 Extract; Erupted Th/exposted Rt 021 Bitewig-single Film Intraoral-periapical 1st Film Advance Directives Directive Yes / No Effective Date File Name No Information Encounters Encounter Description Practice Location Reason(s) For Visit Diagnoses Date Provider Providers Copied on Encounter [facility], [address] [place] [address], [id number], tel:[phone] Dental Clinic DN (chief complaint) Encounter for screening for dental disorders Edson Bianchi. [address] [place] [address], [id number], [place]. tel:[phone] [facility], [address] [place] [address], [id number], tel:[phone] Dental Clinic Dental New (chief complaint) Encounter for screening for dental disorders Edson Bianchi. [address] [place], [place], [id number], [place]. tel:[phone] Family History Family Member Type Diagnosis Age At Onset Mother Problem Alive and well Father Problem Alive and well Mother Problem Cardiovascular disease Payers Payer name Insurance type Covered alliance party ID Aston jason(s) D Medicaid [facility] [id number] Social History Type Description Quantity Date Captured [...]
--- OUTSIDE RECORDS SUMMARY | 2024-04-05 11:45 | XMS_ITS ---
[facility] [address] [place] [address] Care Team Providers Care Lavender Farm Worker Name Role Phone Naida Valera Primary Care Provider [phone] REASON FOR VISIT EXT Encounters Encounter Location Date Provider Diagnosis [facility] [address] [place] [address] 04/05/2024 Naida Valera Plan Of Treatment Next Appt Details Provider Name:Naida ruff, 11/12/2024 10:30:00 AM, [address] [facility] [place], [address], Progress Notes * ROXANNE ROGERS DDOB: 9 (34 yo F)Acc No.[id number]:04/05/2024 Patient: ROXANNE KENNY Provider: Elizabeth Valera DDS :1990 A ge:33 Y S ex:Female Date:04/05/2024 Address:[address] [place], [place] [phone] Subjective: * Chief Complaints: * 1 . EXT. * Medical History: Objective: * Vitals: Assessment: Plan: * Treatment: * Images: * Electronic signature of Harjit Valera DDS on 09/01/2024 at 11:14 AM EDT Sign off status: Pending * Provider: Elizabeth Valera DDS Date: 0 04/05/2024 Generated for Adam son/Makenzie/Chinyereitting on: 0 09/01/2024 11:14 AM EDT
--- OUTSIDE RECORDS SUMMARY | 2024-04-19 09:00 | XMS_ITS ---
[facility] [address] [place] [address] Care Team Providers Care Career Guidance Counselor Name Role Phone Naida Valera Primary Care Provider REASON FOR VISIT FILLING Encounters Encounter Location Date Provider Diagnosis [facility] [address] [place] [address] 04/19/2024 Naida Valera Plan Of Treatment Next Appt Details Provider Name:Naida ruff, 11/12/2024 10:30:00 AM, [address] [facility] [place], [address], Progress Notes * ROXANNE ROGERS DDOB: [birth year] (34 yo F)Acc No.[id number]:04/19/2024 Patient: ROXANNE KENNY Provider: Elizabeth Valera DDS :1990 A ge:33 Y S ex:Female Date:04/19/2024 Address:[address] [place], [place] [phone] Subjective: * Chief Complaints: * 1 . FILLING. * Medical History: Objective: * Vitals: Assessment: Plan: * Treatment: * Images: * Electronic signature of Harjit Valera DDS on 09/01/2024 at 11:14 AM EDT Sign off status: Pending * Provider: Elizabeth Valera DDS Date: 04/19/2024 Generated for Adam osn/Makenzie/Chinyereitting on: 0 09/01/2024 11:14 AM EDT
--- OUTSIDE RECORDS SUMMARY | 2024-08-18 09:30 | XMS_ITS | Encounter Summary ---
Author Organization [facility] Address [address] [place] [address] Care Team Providers Care Flag Car Driver Name Role Phone Parag Bradley MD Primary Care Provider [phone] Анна Ha NP Unavailable [phone] Reason for Visit * Reason Comments Routine Visit Encounter Details Date Type Department Care Team (Late Contact Info) Description 08/18/2024 9:30 AM EDT Routine [facility] [address] [facility] [place] [address] Ximena Carver, MIRROR INSTALLER [address] [facility] [place] [address] Third trimester ([facility]); 34 weeks gestation of ([facility]) Social History Tobacco Use Types Packs/Day [...] week 05/19/2023 How often do you attend [facility] or anabaptist services? More than 4 times per year 05/19/2023 Do you belong to any clubs o r organizations such as worship groups, unions, fraternal or athletic groups, or [...] Recorded Patient Health Questionnaire-2 Score 0 08/06/2024 [facility] of Occupat ional [facility] - Occupational Stress Questionnaire Answer [...] Sign Reading Time Taken Comments Blood Pressure 116/82 08/18/2024 9:37 AM EDT Pulse - - Temperature - - Respiratory Rate - - Oxygen Saturation - - Inhaled Oxygen Concentration - - Weight 79.4 kg (175 lb) 08/18/2024 9:37 AM EDT Height - - Body Mass Index 33.07 09/01/2023 10:37 AM EDT documented in this encounter Progress Notes * Ximena Carver NP - 08/18/2024 9:30 AM EDT Reason for Appointment: Patient ID: Shreya [...] Diagnosis Date Noted Insomnia 02/27/2023 Supraventricular tachycardia (HCC) 12/09/2019 Left wrist pain 05/03/2023 Obesity (BMI 30-39.9) 05/26/2023 Encounter for wellness examination in adult 09/01/2023 Depression 09/01/2023 Resolved Ambulatory Problems Diagnosis Date Noted Major depressive disorder, single episode, mild 09/01/2023 Past Medical History: Diagnosis Date Abnormal Pap smear of cervix 2009 Contraception management Current mild episode of major depressive disorder without prior episode Degenerative joint disease of spine Encounter for IUD removal History of abnormal cervical Pap smear LGSIL Pap smear of vagina 2012 Overweight (BMI 25.0-29.9) SVT (supraventricular tachycardia) (HCC) Torn meniscus HISTORY PAST MEDICAL HISTORY SOCIAL HISTORY Past Medical History: Diagnosis Date Abnormal Pap smear of cervix 2009 Contraception management Current mild episode of major depressive disorder without prior episode 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 Artis needs to stop with preg. Cat. C LGSIL Pap smear of vagina 2012 Overweight (BMI 25.0-29.9) SVT (supraventricular tachycardia) (HCC) Torn meniscus Social History Tobacco Use Smoking [...] abnormal pap smear PAP SMEAR 03/07/2014 [facility] [place] MEDICATION MANAGEMENT Drug Therapy -SVT TONSILLECTOMY 1992 [...] nursing note reviewed. Exam conducted with a director of photography present. Vitals: Estimated body mass index is 33.07 kg/m?? as calculated from the following: Height as of 24: 5' 1 . Weight as of this encounter: 175 lb. BP: 116/82 Patient's last menstrual period was 12/11/2023. ASSESSMENT & PLAN ICD-10-CM 1. Third trimester ([facility]) Z34.93 2. 34 weeks gestation of ([facility]) Z3A.34 Return OB: Patient presents today for a routine obstetrics appointment. Patient is currently 34w5d . Patient states she is doing well but has complaints of being tired due to current . Patient has verbalizes frequent movement. labor precautions was discussed/given and patient was instructed to perform kick counts three times a day. No orders of the defined types were placed in this encounter. Follow Up: Patient is to return to office in 2 week for routine OB appointment. Patient continues with NST/BPPand doing well. Documented by Ximena Carver NP on behalf of: Ximena Carver NP documented in this encounter Miscellaneous Notes * Addendum Note - Chani Coon MA - 08/18/2024 9:30 AM EDTAddended by: CHANI COON on: 08/18/2024 10:29 AM Modules accepted: Orders documented in this encounter Plan of Treatment Upcoming Encounters Date Type Department Care Team (Late st Contact Info) Description 09/02/2024 10:40 AM EDT Routine [facility] OB [address] [facility] [place] [address] Slava Castro, DO [address] [place] [address] [address] [place], [place] [id number] 09/07/2024 1:00 PM EDT Office Visit [facility] [address] [place] [address] Анна Ha, VÍCTOR [address] [place] [address] 12/15/2024 3:00 PM EDT Office Visit [facility] OB [address] [facility] [place] [address] Slava Castro, [address] [place], [place] [id number] documented as of this encounter Goals Goal Patient Goal Type Associated Problems Recent Progress Patient-Stated? Author Reminders Care Plan OB Reminders No Open Scheduling, Background documented as of this encounter Procedures Procedure Name Priority Date/Time Associated Diagnosis Comments POCT URINALYSIS DIPSTICK Routine 08/18/2024 10:28 AM EDT Third trimester ([facility]) documented in this encounter Results * (ABNORMAL) POCT urinalysis dipstick manually resulted (08/18/2024 10:28 AM EDT) Color, UA Yellow Clarity, UA Clear Glucose, UA Negative Negative - 2000(110) ++++ mg/dL Bilirubin, UA Negative Negative - 4(70) +++ mg/dL Ketones, UA Positive Negative - 160(16) ++++ mg/dL Comment:Trace Spec Grav, UA 1.025 1 - 1.03 Blood, UA Negative Negative - 50 Richy/mcL pH, UA 6.5 5 - 9 Protein, UA Positive Negative - 2000(20) ++++ mg/dL Comment:30mg/dL Urobilinogen, UA 0.2 0.2 - 12 mg/dL Leukocytes, UA Negative Negative - 500+++ Tano/mcL Nitrite, UA Negative Negative - Positive Urine 08/18/2024 10:2 8 AM EDT Ximena Carver NP POINT OF CARE TEST ENTER/EDIT ORDERABLES Final Result documented in this encounter Visit Diagnoses Diagnosis Third trimester ([facility]) state, incidental 34 weeks gestation of ([facility]) documented in this encounter Additional Health Concerns Active Problems Noted Date Diagnosed Date OB Reminders 02/11/2024 documented as of this encounter Care Teams Flag Car Driver Relationship Specialty Start Date End Date Parag Bradley MD [address] [place] [address] PCP - General Family Medicine 08/14/22 Анна Ha NP [address] [place] [address] PCP - [facility] 08/25/23 documented as of this encounter
--- NOTE | 2024-09-01 | US_ITS ---
[facility] [place] [id number] Patient Name: ROXANNE ROGERS MRN: [id number] date: 1990 Sex: F Assigned Patient Location: US Current Patient Location: Accession/Order Number: [id number] Exam Date: 09/01/2024 15:10 Report Date: 09/01/2024 15:11 At the request of: SHADE JACKSON Procedure: US OB BPP w non-stress Ultrasound biophysical profile HISTORY: Gestational diabetes Adequate breathing movement, gross body movement, tone and amniotic fluid volume for total score of 8 out of 8. The amniotic fluid index is 11.0cm within normal limits. The heart rate 155 bpm. US/US OB BPP w non-stress IMPRESSION: Adequate ultrasound biophysical profile Impression dictated by: Emilio Perez M.D. 09/01/2024 3:11 PM Dictation Location: [employer] Electronically authenticated by: [id number] Y Date: 09/01/2024 15:11
--- OUTSIDE RECORDS SUMMARY | 2024-09-01 11:14 | XMS_ITS | Encounter Summary ---
Author Organization [facility] Address [address] [place] [address] Care Team Providers Care Fire Services Plumber Name Role Phone Parag Bradley MD Primary Care Provider Анна Ha NP Unavailable [phone] Encounter Details Date Type Department Care Team (Late st Contact Info) Description 06/26/2023 Orders Only [facility] [address] [facility] [place] [place] [address] Slava Castro, DO [address] [facility] [address] [place], [place] [id number] Social History Tobacco Use Types Packs/Day Years [...] How often do you attend chur or sabianism services? More than 4 times [...] Recorded Patient Health Questionnaire-2 Score 0 05/26/2023 [facility] - [facility]ational Stress Questionnaire Answer [...] Description 09/02/2024 10:40 AM EDT Routine [facility] [address] [place] [address] Slava Castro [address] [place], [place] [id number] 09/07/2024 1:00 PM EDT Office Visit [facility] [address] [place] [address] Анна Ha NP [address] [place] [address] 12/15/2024 3:00 PM EDT Office Visit [facility] [address] [place] [address] Slava Castro [address] [place] [address] documented as of this encounter Procedures Procedure [...] on filedocumented in this encounter Care Teams Fire Services Plumber Relationship Specialty Start Date End Date Parag Bradley MD [address] [place] [address] PCP - General Family Medicine 08/14/22 Анна Ha NP [address] [place] [address] PCP - [facility] 08/25/23 documented as of this encounter
--- OUTSIDE RECORDS SUMMARY | 2024-09-01 11:14 | XMS_ITS | Encounter Summary ---
Author Organization [facility] Address [address] [place] [address] Care Team Providers Care Filler Blender Name Role Phone Parag Bradley MD Primary Care Provider Анна Ha NP Unavailable [phone] Encounter Details Date Type Department Care Team (Late st Contact Info) Description 06/23/2023 Orders Only [facility] [address] [facility] [place] [address] Slava Castro, DO [address] [facility] [address] [place], [place] [id number] Social History Tobacco Use Types Packs/Day Years [...] How often do you attend chur or denominational services? More than 4 times per year [...] Recorded Patient Health Questionnaire-2 Score 0 05/26/2023 [facility] - Occupational Stress Questionnaire Answer [...] Description 09/02/2024 10:40 AM EDT Routine [facility] [address] [place] [address] Slava Castro [address] [place], [place] [id number] 09/07/2024 1:00 PM EDT Office Visit [facility] [address] [place] [address] Анна Ha NP [address] [place] [address] 12/15/2024 3:00 PM EDT Office Visit [facility] [address] [place] [address] Slava Castro [address] [place] [address] documented as of this encounter Procedures Procedure Name Priority Date/Time Associated Diagnosis Comments US OB TRANSVAGINAL Routine 06/23/2023 9:37 AM EDT documented in this encounter Results * US OB transvaginal (06/23/2023 9:37 AM EDT) Anatomical Region Laterality Modality Body Ultrasound us Slava Gloria DO IMG OB US PROCEDURES Final Resul t documented in this encounter Visit Diagnoses Not on filedocumented in this encounter Care Teams Filler Blender Relationship Specialty Start Date End Date Parag Bradley MD [address] [place] [address] PCP - General Family Medicine 08/14/22 Анна Ha NP [address] [place] [address] PCP - [facility] 08/25/23 documented as of this encounter
--- OUTSIDE RECORDS SUMMARY | 2024-09-01 11:14 | XMS_ITS | Encounter Summary ---
Author Organization [facility] Address [address] [place] [address] Care Team Providers Care Supercharger Mechanic Name Role Phone Parag Bradley MD Primary Care Provider Анна Ha NP Unavailable [phone] Encounter Details Date Type Department Care Team (Late st Contact Info) Description 08/18/2024 Bamboo flowsheet [facility] [address] [facility] [place] [address] Ximena Carver NP [address] [facility] [place] [address] Social History Tobacco Use Types Packs/Day [...] How often do you attend chur or episcopalian services? More than 4 times per year [...] Recorded Patient Health Questionnaire-2 Score 0 08/06/2024 [facility] - Occupational Stress [...] Description 09/02/2024 10:40 AM EDT Routine [facility] OB [address] [place] [address] Slava Castro, [address] [place] [address] [address] [place], [place] [id number] 09/07/2024 1:00 PM EDT Office Visit [facility] [address] [place] [address] Анна Ha NP [address] [place] [address] 12/15/2024 3:00 PM EDT Office Visit [facility] OB [address] [place] [address] Slava Castro DO [address] [place], [place] [address] [place], [place] [id number] documented as of this encounter Goals Goal Patient Goal Type Associated Problems Recent Progress Patient-Stated? Author Reminders Care Plan OB Reminders No Open Scheduling, Background documented as of this encounter Visit Diagnoses Not on filedocumented in this encounter Additional Health Concerns Active Problems Noted Date Diagnosed Date OB Reminders 02/11/2024 documented as of this encounter Care Teams Supercharger Mechanic Relationship Specialty Start Date End Date Parag Bradley MD [address] [place] [address] PCP - General Family Medicine 08/14/22 Анна Ha NP [address] [place] [address] PCP - [facility] 08/25/23 documented as of this encounter
--- OUTSIDE RECORDS SUMMARY | 2024-09-01 11:14 | XMS_ITS | Encounter Summary ---
Author Organization [facility] Address [address] [place] [address] Care Team Providers Care Thoroughbred Horse Farm Manager Name Role Phone Parag Bradley MD Primary Care Provider [phone] Анна Ha NP Unavailable [phone] Encounter Details Date Type Department Care [...] often do you attend chur ch or latter-day services? More than 4 times per year 05/19/2023 Do you belong to any clubs o r organizations such as cheondoism groups, unions, fraternal or athletic groups, or [...] Recorded Patient Health Questionnaire-2 Score 0 08/06/2024 [facility] of Occupat ional [facility] - Occupational Stress Questionnaire Answer Date [...] 10:40 AM EDT Routine [facility] BCP OB [address] [place] [address] [place] [address] Slava Castro, [facility] [place], [place] [id number] 09/07/2024 1:00 PM EDT Office Visit [facility] [address] [place] [address] Анна Ha, EXEC. CREATIVE DIRECTOR [address] [place] [address] 12/15/2024 3:00 PM EDT Office Visit [facility] OB [address] [place], [place] [address] [address] Slava Castro, [facility] [place], [place] [address] documented as of this encounter Goals Goal [...] EDT Narrative 08/18/2024 11:[place] [address] Ultrasound Report Signed Patient: ROXANNE MARSHALL MR#: [id number] : 1990 Acct:[id number] Age/Sex: 33 / F ADM Date: 08/18/24 Loc: US Attending Dr: Vidya Jackson Ordering Physician: Vidya Jackson Date of Service: 08/18/24 Procedure(s): US OB BPP w non-stress Accession Number(s): [id number] cc: Анна Ha NP; Vidya Jackson [place] [address] Patient Name: ROXANNE MARSHALL MRN: [id number] date: 1990 Sex: F Assigned Patient Location: [facility] Current Patient Location: Accession/Order Number: [id number] Exam Date: 08/18/2024 11:47 Report Date: 08/18/2024 11:48 At the request of: VIDYA JACKSON Procedure: US OB BPP w non-stress BIOPHYSICAL PROFILE: CLINICAL INFORMATION: History of gestational diabetes Z86.32 COMPARISON: 08/13/2024 There is a single live intrauterine gestation in cephalic presentation. The reported gestational age is 34 weeks 5 days. The heart rate djzhyoac951 beats per minute. FINDINGS: TONE: 1 or [...] Auguste M.D. 08/18/2024 11:48 AM Dictation Location: [place] [address] Electronically authenticated by: [id number] Y Date: 08/18/2024 11:48 Dictated By: Isatu Auguste M.D. Signed By: 08/18/24 1151 DD/ 1148 TD/TT: Pocketed Spring Machine Operator: Procedure Note Radiology, Radiologist, - 08/18/2024 [place] [address] Ultrasound Report Signed Patient: ROXANNE MARSHALL DMR#: [id number] : 1990Acct:[id number] Age/Sex: 33 / FADM Date: 08/18/24 Loc: US Attending Dr: Vidya Jackson Ordering Physician: Vidya Jackson Date of Service: 08/18/24 Procedure(s): US OB BPP w non-stress Accession Number(s): [id number] cc: Анна Ha NP; Vidya Jackson [place] [id number] Patient Name: ROXANNE MARSHALL MRN: [facility]:[id number] date: 1990 Sex: F Assigned Patient Location: [facility] Current Patient Location: Accession/Order Number: [id number] Exam Date: 08/18/2024 11:47 Report Date: 08/18/2024 11:48 At the request of: VIDYA JACKSON Procedure: US OB BPP w non-stress BIOPHYSICAL PROFILE: CLINICAL INFORMATION: History of gestational diabetes Z86.32 COMPARISON: 08/13/2024 There is a single live intrauterine gestation in cephalic presentation.The reported gestational age is 34 weeks 5 days. The heart yjnnmkinpuxu124 beats per minute. FINDINGS: TONE: 1 or [...] Auguste M.D. 08/18/2024 11:48 AM Dictation Location: [place] [address] Electronically authenticated by: [id number] Y Date: 1:48 Dictated By: Isatu Auguste M.D. Signed By:08/18/24 1151 DD/ 1148 TD/TT: Pocketed Spring Machine Operator: us Generic External Data Provider [facility] Final Result documented in this encounter Visit Diagnoses Not on filedocumented in this encounter Additional Health Concerns Active Problems Noted Date Diagnosed Date OB Reminders 02/11/2024 documented as of this encounter Care Teams Thoroughbred Horse Farm Manager Relationship Specialty Start Date End Date Parag Bradley MD [address] [place] [address] PCP - General Family Medicine 08/14/22 Анна Ha NP [address] [place] [address] PCP - [facility] 08/25/23 documented as of this encounter
--- OUTSIDE RECORDS SUMMARY | 2024-09-01 11:14 | XMS_ITS | Encounter Summary ---
Author Organization [facility] Address [address] [place] [address] Care Team Providers Care Pot Runner Name Role Phone Parag Bradley MD Primary Care Provider [phone] Анна Ha NP Unavailable [phone] Encounter Details Date Type Department Care Team (Late st Contact Info) Description 08/25/2024 Clinisync Result Encounter [facility] External Department Unsolicited [...] often do you attend chur ch or rastafarian services? More than 4 times [...] Patient Health Questionnaire-2 Score 0 08/06/2024 [facility] of Occupat ional [facility] - Occupational Stress Questionnaire Answer [...] 10:40 AM EDT Routine [facility] BCP OB [address] [place] [address] [place] [phone] Slava Castro, [facility] [place], [place] [address] 09/07/2024 1:00 PM EDT Office Visit [facility] [address] [place] [address] Анна Ha, RECREATION PROFESSOR [address] [place] [address] 12/15/2024 3:00 PM EDT Office Visit [facility] OB [address] [place], [place] [address] [address] Slava Castro, [facility] [place], [place] [address] documented as of this encounter Goals Goal Patient Goal Type Associated Problems Recent Progress Patient-Stated? Author Reminders Care Plan OB Reminders No Open Scheduling, Background documented as of this encounter Procedures Procedure Name Priority Date/Time Associated Diagnosis Comments US OB BPP W NON-STRESS 08/25/2024 11:33 AM EDT documented in this encounter Results * US OB BPP W NON-STRESS (08/25/2024 11:33 AM EDT) Anatomical Region Laterality Modality Other 08/25/2024 11:3 3 AM EDT Narrative 08/25/2024 11:35 AM EDT [place] [id number] Ultrasound Report Signed Patient: ROXANNE MARSHALL MR#: [id number] : 1990 Acct:[id number] Age/Sex: 33 / F ADM Date: 08/25/24 Loc: [facility] 253-[address]: Vidya Jackson Ordering Physician: Vidya Jackson Date of Service: 08/25/24 Procedure(s): US OB BPP w non-stress Accession Number(s): [id number] cc: Анна Ha NP; Vidya Jackson [place] [address] Patient Name: ROXANNE MARSHALL MRN: [id number] date: 1990 Sex: F Assigned Patient Location: [facility] Current Patient Location: [facility] Accession/Order Number: [id number] Exam Date: 08/25/2024 11:31 Report Date: 08/25/2024 [...] Auguste M.D. 08/25/2024 11:33 AM Dictation Location: [place] [address] Electronically authenticated by: [id number] Y Date: 08/25/2024 11:33 Dictated By: Isatu Auguste M.D. Signed By: 08/25/24 1135 DD/ 1133 TD/TT: Hire Car Driver: Procedure Note Radiology, Radiologist, - 08/25/2024 [place] [address] Ultrasound Report Signed Patient: ROXANNE MARSHALL DMR#: [id number] : 1990Acct:[id number] Age/Sex: 33 / FADM Date: 08/25/24 Loc: [facility] 253-[address]: Vidya Jackson Ordering Physician: Vidya Jackson Date of Service: 08/25/24 Procedure(s): US OB BPP w non-stress Accession Number(s): [id number] cc: Анна Ha NP; Vidya Jackson [place] [id number] Patient Name: ROXANNE MARSHALL MRN: [id number] date: 1990 Sex: F Assigned Patient Location: [facility] Current Patient Location: [facility] Accession/Order Number: [id number] Exam Date: 08/25/2024 11:31 Report Date: 08/25/2024 11:33 At the request of: VIDYA JACKSON Procedure: US OB BPP w non-stress BIOPHYSICAL PROFILE: CLINICAL INFORMATION: History of gestational diabetes COMPARISON: 08/18/2024 There is a single live intrauterine gestation in cephalic presentation.The reported gestational age is 35 weeks 5 days. The heart ratemeasures 144 beats per minute. FINDINGS: TONE: 1 [...] Auguste M.D. 08/25/2024 11:33 AM Dictation Location: [place] [address] Electronically authenticated by: [id number] Y Date: 1:33 Dictated By: Isatu Auguste M.D. Signed By:08/25/24 1135 DD/ 1133 TD/TT: Hire Car Driver: us Generic External Data Provider [facility] Final Result documented in this encounter Visit Diagnoses Not on filedocumented in this encounter Additional Health Concerns Active Problems Noted Date Diagnosed Date OB Reminders 02/11/2024 documented as of this encounter Care Teams Pot Runner Relationship Specialty Start Date End Date Parag Bradley MD [address] [place] [address] PCP - General Family Medicine 08/14/22 Анна Ha NP [address] [place] [address] PCP - [facility] 08/25/23 documented as of this encounter
--- OUTSIDE RECORDS SUMMARY | 2024-09-01 11:14 | XMS_ITS | Encounter Summary ---
Author Organization [facility] Address [address] [place] [address] Care Team Providers Care Business Machine Mechanic Name Role Phone Parag Bradley MD Primary Care Provider [phone] Анна Ha NP Unavailable [phone] Encounter Details Date Type Department Care [...] often do you attend chur ch or episcopalian services? More than 4 times per year 05/19/2023 Do you belong to any clubs o r organizations such as jain groups, unions, fraternal or athletic groups, or [...] Recorded Patient Health Questionnaire-2 Score 0 05/26/2023 [facility] of Occupat ional [facility] - Occupational Stress Questionnaire Answer [...] 10:40 AM EDT Routine [facility] BCP OB [address] [place] [address] [place] [address] Orlin Castro, DO [address] [place] [address] [place], [place] [address] 09/07/2024 1:00 PM EDT Office Visit [facility] [address] [place] [address] Анна Ha, EMBOSSING PRESS OPERATOR [address] [place] [address] 12/15/2024 3:00 PM EDT Office Visit [facility] OB [address] [place] [address] [place] [address] Orlin Castro, [address] [place] [address] documented as of this encounter Procedures Procedure Name Priority Date/Time Associated Diagnosis Comments US OB TRANSVAGINAL 06/13/2023 11 :13 AM EDT [facility] PREG QUANT HCG Routine 06/13/2023 10 :49 AM EDT documented in this encounter Results * US OB TRANSVAGINAL (06/13/2023 11:13 AM EDT) Anatomical Region Laterality Modality Other 06/13/2023 11:1 3 AM EDT Narrative 06/13/2023 11:16 [place] [address] Ultrasound Report Signed Patient: ROXANNE MARSHALL MR#: [id number] : 1990 Acct:[id number] Age/Sex: 32 / F ADM Date: 06/13/23 Loc: [facility] Attending Dr: Orlin Castro D.O. Ordering Physician: Orlin Castro D.O. Date of Service: 06/13/23 Procedure(s): US OB transvaginal Accession Number(s): [id number] cc: Анна Ha EMBOSSING PRESS OPERATOR; Orlin Castro D.O. [place] [id number] Patient Name: ROXANNE MARSHALL MRN: [id number] date: 1990 Sex: F Assigned Patient Location: [facility] Current Patient Location: [facility] Accession/Order Number: [id number] Exam Date: 06/13/2023 09:58 Report Date: 06/13/2023 [...] Signed By: 06/13/23 1116 DD/ 1113 TD/TT: Technical System Analyst: Procedure Note Radiology, Radiologist, MD - 06/13/2023 [place] [address] Ultrasound Report Signed Patient: ROXANNE MARSHALL DMR#: [id number] : 1990Acct:[id number] Age/Sex: 32 / FADM Date: 06/13/23 Loc: [facility] Attending Dr: Orlin Castro D.O. Ordering Physician: Orlin Castro D.O. Date of Service: 06/13/23 Procedure(s): US OB transvaginal Accession Number(s): [id number] cc: Анна Ha EMBOSSING PRESS OPERATOR; Orlin Castro D.O. [place] [address] Patient Name: ROXANNE MARSHALL MRN: [id number] date: 1990 Sex: F Assigned Patient Location: [facility] Current Patient Location: [facility] Accession/Order Number: [id number] Exam Date: 06/13/2023 09:58 Report Date: 06/13/2023 [...] M.D. Signed By:06/13/23 1116 DD/ 1113 TD/TT: Technical System Analyst: us Generic External Data Provider [facility] [...] [facility] F inal Result Performing Organization Address City/State/[facility] Co de Phone Number [facility] documented in this encounter Visit Diagnoses Not on filedocumented in this encounter Care Teams Business Machine Mechanic Relationship Specialty Start Date End Date Parag Bradley MD [address] [place] [address] PCP - General Family Medicine 08/14/22 Анна Ha NP [address] [place] [address] PCP - [facility] 08/25/23 documented as of this encounter
--- OUTSIDE RECORDS SUMMARY | 2024-09-01 11:14 | XMS_ITS | Encounter Summary ---
Author Organization [facility] Address [address] [place] [address] Care Team Providers Care Mustanger Name Role Phone Parag Bradley MD Primary Care Provider [phone] Анна Ha CAREER SERVICES DIRECTOR Unavailable [phone] Reason for Visit * Reason Comments Med Refill Encounter Details Date Type Department Care Team (Late st Contact Info) Description 08/23/2024 Refill [facility] [address] [place] [address] Анна Ha, VÍCTOR [address] [place] [address] Primary insomnia Social History Tobacco [...] How often do you attend chur or roman catholic services? More than 4 times per year 05/19/2023 Do you belong to any clubs o r organizations such as buddhism groups, unions, fraternal or athletic groups, or [...] Recorded Patient Health Questionnaire-2 Score 0 08/06/2024 [facility] of Occupat ional [facility] - Occupational Stress Questionnaire Answer [...] AM EDT Routine [facility] BCP OB [address] [facility] [place] [address] Slava Castro DO [address] [place] [address] Dr [place], [place] [id number] 09/07/2024 1:00 PM EDT Office Visit [facility] [address] [place] [address] Анна Ha NP [address] [place] [address] 12/15/2024 3:00 PM EDT Office Visit [facility] OB [address] [place] [address] Slava Castro DO [address] [place], [place] [address] [place] [address] documented as of this encounter Goals [...] documented as of this encounter Care Teams Mustanger Relationship Specialty Start Date End Date Parag Bradley MD [address] [place] [address] PCP - General Family Medicine 08/14/22 Анна Ha NP [address] [place] [address] PCP - [facility] 08/25/23 documented as of this encounter
--- OUTSIDE RECORDS SUMMARY | 2024-09-01 11:14 | XMS_ITS | Patient Health Record ---
Author Organization [facility] es Address [address] [place] [address] Care Team Providers Care Waistline Joiner Overlock Name Role Phone Naida Valera Primary Care Provider [phone] Reason For Referral No Information Medications Medication SIG (Take, Route, Frequency, Duration) Notes Start Date End Date Status Zoloft Unknown TRAZODONE Unknown Acetaminophen Extra Strength 500 MG 1 tablet as needed Orally every 6 hrs 01/02/2024 Active Encounters Encounter Location Date Provider Diagnosis [place] [address] [place] [address] 12/25/2023 Naida Valera Cracked tooth K03 .81 [facility] [address] [place] [address] 12/29/2023 Naida Valera Encounter for den mercy examination and cleaning with abnormal findings Z01.21 [facility] [address] [place] [address] 01/02/2024 Naida Valera Encounter for den mercy [...] ruff, 11/12/2024 10:30:00 AM, [address] [place], [address], Insurance Providers Payer Name Payer Address Payer Phone Subscriber Number Group Number Insured Name Patient Relationship to Insured Coverage Start Date Coverage End Date D[employer] [address] [address] [place] [phone] [id number] ROXANNE ROGERS Self - patient is the insured 4 Secondary [employer] [place] [employer] [address] [address] [place] [address] [id number] ROXANNE ROGERS Self - patient is the insured 3 Dental W[employer] MERGED WITH [facility] [place] [address] [place] [address] [id number] ROXANNE ROGERS Self - patient is the insured 3
--- OUTSIDE RECORDS SUMMARY | 2024-09-01 11:14 | XMS_ITS | Encounter Summary ---
Author Organization [facility] Address [address] [place] [address] Care Team Providers Care Steam Crane Operator Name Role Phone Parag Bradley MD Primary Care Provider [phone] Анна Ha NP Unavailable [phone] Encounter Details Date Type Department Care Team (Latest Contact Info) Description 08/31/2024 Travel Social History Tobacco Use Types Packs/Day Years Used Date Smoking Tobacco: Former Cigarettes Q uit: 2015 Smokeless Tobacco: Never Comments:Ex-moderate cigaret te smoker (10-19/day) Alcohol Use Standard Drinks/Week Comments Never 0 (1 standard drink = 0.6 oz pur e alcohol) Caffeine: occasional Humiliation, Afraid, Rape, and Kick questionnair e Answer Date Recorded Within the last year, have y ou been afraid of your partner or ex-partner? No 08/31/2024 Within the last year, have y ou been humiliated or emotionally abused in other ways by your partner or ex-partner? No Within the last year, have y ou been kicked, hit, slapped, or otherwise physically hurt by your partner or ex-partner? No 08/31/2024 Within the last year, have y ou been raped or forced to have any kind of sexual activity by your partner or ex-partner? No 08/31/2024 Social Connection and Isolat ion Panel [NHANES] Answer Date Recorded In a typical week, how many times do you talk on the phone with family, friends, or neighbors? More than three times a week 08/31/2024 How often do you get togethe r with friends or relatives? Twice a week 08/31/2024 How often do you attend chur ch or taoist services? More than 4 times per year 08/31/2024 Do you belong to any clubs o r organizations such as catholic groups, unions, fraternal or athletic groups, or school groups? Yes 08/31/2024 How often do you attend meet ings of the clubs or organizations you belong to? More than 4 times per year 08/31/2024 Are you , , di vorced, , never , or living with a partner? 08/31/2024 AUDIT-C Answer Date Recorded Q1: How often do you have a drink containing alcohol? Never 08/31/2024 Q2: How many drinks containi ng alcohol do you have on a typical day when you are drinking? Patient does not drink Q3: How often do you have si x or more drinks on one occasion? Never 08/31/2024 Overall Financial Resource Strain (CARDIA) Answe r Date Recorded How hard is it for you to pa y for the very basics like food, housing, medical care, and heating? Not very hard 08/31/2024 PHQ-2 Answer Date Recorded Patient Health Questionnaire-2 Score 0 08/06/2024 [facility] - Occupational Stress Questionnaire Answer Date Recorded Do you feel stress - tense, restless, nervous, or anxious, or unable to sleep at night because your mind is troubled all the time - these days? To some extent 08/31/2024 Exercise Vital Sign Answer Date Recorde d On average, how many days pe r week do you engage in moderate to strenuous exercise (like a brisk walk)? 0 days 08/31/2024 On average, how many minutes do you engage in exercise at this level? 0 min 08/31/2024 Hunger Vital Sign Answer Date Recorded Within the past 12 months, y ou worried that your food would run out before you got the money to buy more. Never true 09/01/19 25 Within the past 12 months, t he food you bought just didn't last and you didn't have money to get more. Never true 08/31/2024 PRAPARE - Transportation Answer Date Re corded In the past 12 months, has l ack of transportation kept you from medical appointments or from getting medications? No 09/2024 In the past 12 months, has l ack of transportation kept you from meetings, work, or from getting things needed for daily living? No 08/31/2024 Housing Stability Vital Sign Answer Leonidas e [...] in a mcc (including now)? No 05/19/2023 Housing Stability Vital Sign Answer Leonidas e Recorded In the last 12 months, was t here a time when you were not able to pay the mortgage or rent on time? No 08/31/2024 In the past 12 months, how m any times have you moved where you were living? 0 08/31/2024 At any time in the past 12 m [facility], were you homeless or living in a mcc (including now)? No 08/31/2024 Estimated Date of Delivery Comme nts Yes 09/24/2024 Based on Ultraso und, FHR- 152 Sex and Gender Information Value Date Recorded Sex Assigned at Not on file Legal Sex Female 7:11 PM EDT Gender Identity Female 05/08/2022 7:11 PM EDT Sexual Orientation Not on file documented as of this encounter Functional Status * Audit-C Score Answer Date of Assessment Author 0 08/31/2024 9:25 AM EDT Hu, Generic * Q1: How often do you have a drink containing alcohol? Answer Date of Assessment Author Never 08/31/2024 9:25 AM EDT Hu, Generic * Q2: How many drinks containing alcohol do you have on a typical day when you are drinking? Answer Date of Assessment Author Patient does not drink 08/31/2024 9:25 AM EDT My chart, Generic * Q3: How often do you have six or more drinks on one occasion? Answer Date of Assessment Author Never 08/31/2024 9:25 AM EDT Hu, Generic documented as of this encounter Plan of Treatment Upcoming Encounters Date Type Department Care Team (Late st Contact Info) Description 09/02/2024 10:40 AM EDT Routine [facility] OB [address] [facility] [place] [address] Slava Castro, [address] [place] [address] 09/07/2024 1:00 PM EDT Office Visit [facility] FM [address] [place] [address] Анна Ha, VÍCTOR [address] [place] [address] 12/15/2024 3:00 PM EDT Office Visit [facility] OB [address] [place] [address] [place] [address] Slava Castro, [address] [place] [address] [place] [address] documented as of this encounter Goals Goal Patient Goal Type Associated Problems Recent Progress Patient-Stated? Author Reminders Care Plan OB Reminders No Open Scheduling, Background documented as of this encounter Visit Diagnoses Not on filedocumented in this encounter Additional Health Concerns Active Problems Noted Date Diagnosed Date OB Reminders 02/11/2024 documented as of this encounter Care Teams Steam Crane Operator Relationship Specialty Start Date End Date Parag Bradley MD [address] [place] [address] PCP - General Family Medicine 08/14/22 Анна Ha, VÍCTOR [address] [place] [address] PCP - [facility] 08/25/23 documented as of this encounter
--- OUTSIDE RECORDS SUMMARY | 2024-09-01 11:14 | XMS_ITS | Encounter Summary ---
Author Organization [facility] Address [address] [place] [address] Care Team Providers Care Brake Assembler Name Role Phone Parag Bradley MD Primary Care Provider Анна Ha NP Unavailable [phone] Encounter Details Date Type Department Care Team (Late st Contact Info) Description 07/26/2024 Abstract [facility] OB [address] [place] [address] Slava Castro, DO [address] Wesley Currie, [facility] Social History Tobacco Use Types Packs/Day [...] Recorded Patient Health Questionnaire-2 Score 0 06/08/2024 [facility] of Occupat ional [facility] - Occupational Stress Questionnaire Answer [...] Description 09/02/2024 10:40 AM EDT Routine [facility] OB [address] [facility] [place] [address] Slava Castro DO [address] [place] [address] Dr Wesley [place], [place] [id number] 09/07/2024 1:00 PM EDT Office Visit [facility] [address] [place] [address] Анна Ha NP [address] [place] [address] 12/15/2024 3:00 PM EDT Office Visit [facility] OB [address] [facility] [place] [address] Slava Castro, [address] [place] [address] Dr Wesley [place], [place] [id number] documented as of this encounter Goals Goal Patient Goal Type Associated Problems Recent Progress Patient-Stated? Author Reminders Care Plan OB Reminders No Open Scheduling, Background documented as of this encounter Visit Diagnoses Not on filedocumented in this encounter Additional Health Concerns Active Problems Noted Date Diagnosed Date OB Reminders 02/11/2024 documented as of this encounter Care Teams Brake Assembler Relationship Specialty Start Date End Date Parag Bradley MD [address] [place] [address] PCP - General Family Medicine 08/14/22 Анна Ha NP [address] [place] [address] PCP - [facility] 08/25/23 documented as of this encounter
--- OUTSIDE RECORDS SUMMARY | 2024-09-01 11:14 | XMS_ITS ---
Author Organization [facility] Address [address] [place] [address] Care Team Providers Care Rouge Sifter And Miller Name Role Phone Parag Bradley MD Primary Care Provider [phone] Анна Ha NP Unavailable [phone] [facility] ([facility]) Status:Enrolled (Active) Start date:03/09/2024 Enrollment date:03/09/2024 Enrollment reason:Identified by Health Plan Case Team Name Relationship Phone Vidya Oliva LPN(Responsible Staff) Licensed [facility] Nurse [phone] Continued Care and Services Coordination
--- OUTSIDE RECORDS SUMMARY | 2024-09-01 11:14 | XMS_ITS | Encounter Summary ---
Author Organization [facility] Address [address] [place] [address] Care Team Providers Care Medical Doctor Md/Medical Director Name Role Phone Parag Bradlye MD Primary Care Provider [phone] Анна Ha NP Unavailable [phone] Encounter Details Date Type Department Care Team (Late st Contact Info) Description 06/16/2023 Orders Only [facility] [address] [place] [address] Slava Castro, DO [address] [facility] [place] [address] [place] [address] Social History Tobacco Use Types Packs/Day Years [...] How often do you attend chur or mosque services? More than 4 times [...] Questionnaire-2 Score 0 05/26/2023 [facility] - Occupational Stress [...] in a assisted (including now)? No 05/19/2023 Comments Unknown Sex and Gender Information Value Date Recorded Sex Assigned at Not on file Legal Sex Female 7:11 PM EDT Gender Identity Female 05/08/2022 7:11 PM EDT Sexual Orientation Not on file documented as of this encounter Plan of Treatment Upcoming Encounters Date Type Department Care Team (Late st Contact Info) Description 09/02/2024 10:40 AM EDT Routine [facility] [address] [place] [address] [place] [address] Slava Castro [address] Wesley [place], [place] [address] 09/07/2024 1:00 PM EDT Office Visit [facility] [address] [place] [address] Анна Ha NP [address] [place] [address] 12/15/2024 3:00 PM EDT Office Visit [facility] [address] [facility] [place] [address] Slava Castro [address] Wesley [place], [place] [id number] documented as of this encounter Procedures Procedure [...] on filedocumented in this encounter Care Teams Medical Doctor Md/Medical Director Relationship Specialty Start Date End Date Parag Bradley MD [address] [place] [address] PCP - General Family Medicine 08/14/22 Анна Ha NP [address] [place] [address] [facility] - [facility] 08/25/23 documented as of this encounter
--- OUTSIDE RECORDS SUMMARY | 2024-09-01 11:14 | XMS_ITS | Encounter Summary ---
Author Organization [facility] Address [address] [place] [address] Care Team Providers Care Laborer Wrecking And Salvaging Name Role Phone Parag Bradley MD Primary Care Provider [phone] Анна Ha ADVANCED MANUFACTURING ASSOCIATE Unavailable [phone] Encounter Details Date Type Department Care Team (Late st Contact Info) Description 08/04/2024 Abstract [facility] [address] [place] [address] Анна Ha, VÍCTOR [address] [place] [address] Social History Tobacco Use Types Packs/Day Years [...] Recorded Patient Health Questionnaire-2 Score 0 08/06/2024 [facility] - Occupational [...] Description 09/02/2024 10:40 AM EDT Routine [facility] OB [address] [facility] [place] [address] Slava Castro, DO [address] [place] [address] [place] [address] 09/07/2024 1:00 PM EDT Office Visit [facility] [address] [place] [address] Анна Ha, VÍCTOR [address] [place] [address] 12/15/2024 3:00 PM EDT Office Visit [facility] OB [address] [place] [address] Slava Castro, [address] [place] [address] [place] [address] documented as of this encounter Goals Goal Patient Goal Type Associated Problems Recent Progress Patient-Stated? Author Reminders Care Plan OB Reminders No Open Scheduling, Background documented as of this encounter Visit Diagnoses Not on filedocumented in this encounter Additional Health Concerns Active Problems Noted Date Diagnosed Date OB Reminders 02/11/2024 documented as of this encounter Care Teams Laborer Wrecking And Salvaging Relationship Specialty Start Date End Date Parag Bradley MD [address] [place] [address] PCP - General Family Medicine 08/14/22 Анна Ha NP [address] [place] [address] PCP - [facility] 08/25/23 documented as of this encounter
--- OUTSIDE RECORDS SUMMARY | 2024-09-01 11:14 | XMS_ITS | Encounter Summary ---
Author Organization [facility] Address [address] [place] [address] Care Team Providers Care Dermatology Technician Name Role Phone Parag Bradley MD Primary Care Provider [phone] Анна Ha NP Unavailable [phone] Encounter Details Date Type Department Care [...] Recorded Patient Health Questionnaire-2 Score 0 05/26/2023 [facility] of Occupat ional [facility] [...] [facility] OB [address] [place] [address] [place] [address] Orlin Castro, DO [address] [place], [place] [address]Nat[place], [place] [address] 09/07/2024 1:00 PM EDT Office Visit [facility] [address] [place] [address] Анна Ha, FISHING LURE ASSEMBLER [address] [place] [address] 12/15/2024 3:00 PM EDT Office Visit [facility] OB [address] [place] [address] Orlin Castro, [address] [place], [place] [address] documented as of this encounter Procedures Procedure Name Priority Date/Time Associated Diagnosis Comments US OB TRANSVAGINAL 06/26/2023 10 :14 AM EDT documented in this encounter Results * US OB TRANSVAGINAL (06/26/2023 10:14 AM EDT) Anatomical Region Laterality Modality Other 06/26/2023 10:1 4 AM EDT Narrative 06/26/2023 10:16 AM EDT The [address] [address] Ultrasound Report Signed Patient: ROXANNE MARSHALL MR#: [id number] : 1990 Acct:[id number] Age/Sex: 32 / F ADM Date: 06/26/23 Loc: [facility] Attending Dr: Orlin Castro D.O. Ordering Physician: Orlin Castro D.O. Date of Service: 06/26/23 Procedure(s): US OB transvaginal Accession Number(s): [id number] cc: Анна Ha NP; Orlin Castro D.O. The [address] [id number] Patient Name: ROXANNE MARSHALL MRN: [id number] date: 1990 Sex: F Assigned Patient Location: [facility] Current Patient Location: [facility] Accession/Order Number: [id number] Exam Date: 06/26/2023 09:09 Report Date: 06/26/2023 [...] Signed By: 06/26/23 1016 DD/ 1014 TD/TT: Manufacturing Management Associate: Procedure Note Radiology, Radiologist, - 06/26/2023 [place] [address] Ultrasound Report Signed Patient: ROXANNE MARSHALL DMR#: [id number] : 1990Acct:[id number] Age/Sex: 32 / FADM Date: 06/26/23 Loc: [facility] Attending Dr: Orlin Castro D.O. Ordering Physician: Orlin Castro D.O. Date of Service: 06/26/23 Procedure(s): US OB transvaginal Accession Number(s): [id number] cc: Анна Ha FISHING LURE ASSEMBLER; Orlin Castro D.O. [place] [address] Patient Name: ROXANNE MARSHALL MRN: [id number] date: 1990 Sex: F Assigned Patient Location: [facility] Current Patient Location: [facility] Accession/Order Number: [id number] Exam Date: 06/26/2023 09:09 Report Date: 06/26/2023 [...] M.D. Signed By:06/26/23 1016 DD/ 1014 TD/TT: Manufacturing Management Associate: us Generic External Data Provider [facility] Final Result documented in this encounter Visit Diagnoses Not on filedocumented in this encounter Care Teams Dermatology Technician Relationship Specialty Start Date End Date Parag Bradley MD [address] [place] [address] PCP - General Family Medicine 08/14/22 Анна Ha NP [address] [place] [address] PCP - [facility] 08/25/23 documented as of this encounter
--- OUTSIDE RECORDS SUMMARY | 2024-09-01 11:14 | XMS_ITS | Encounter Summary ---
Author Organization [facility] Address [address] [place] [address] Care Team Providers Care Hard Candy Batch Mixer Name Role Phone Parag Bradley MD Primary Care Provider [phone] Анна Ha NP Unavailable [phone] Encounter Details Date Type Department Care Team (Latest Contact Info) Description 08/27/2024 Travel Social History Tobacco Use Types Packs/Day [...] How often do you attend chur or methodist services? More than 4 times per year [...] Recorded Patient Health Questionnaire-2 Score 0 08/06/2024 [facility] of Occupat ional Health - Occupational Stress [...] EDT Routine [facility] [address] [place] [address] Slava Castro, DO [address] [place], [place] [address] 09/07/2024 1:00 PM EDT Office Visit [facility] [address] [place] [address] Анна Ha NP [address] [place] [address] 12/15/2024 3:00 PM EDT Office Visit [facility] [address] [facility] [place] [address] Slava Castro, DO [address] [place] [address] Bia [place], [place] [id number] documented as of this encounter Goals Goal Patient Goal Type Associated Problems Recent Progress Patient-Stated? Author Reminders Care Plan OB Reminders No Open Scheduling, Background documented as of this encounter Visit Diagnoses Not on filedocumented in this encounter Additional Health Concerns Active Problems Noted Date Diagnosed Date OB Reminders 02/11/2024 documented as of this encounter Care Teams Hard Candy Batch Mixer Relationship Specialty Start Date End Date Parag Bradley MD [address] [place] [address] PCP - General Family Medicine 08/14/22 Анна Ha NP [address] [place] [address] [facility] 08/25/23 documented as of this encounter
--- OUTSIDE RECORDS SUMMARY | 2024-09-01 11:14 | XMS_ITS | Encounter Summary ---
Author Organization [facility] Address [address] [place] [address] Care Team Providers Care Tool Shaper Setup Operator Name Role Phone Parag Bradley MD Primary Care Provider [phone] Анна Ha CLINICAL DOCUMENTATION SPEC Unavailable [phone] Reason for Visit * Reason Onset Date Comments Med Refill 08/22/2024 Encounter Details Date Type Department Care Team (Late st Contact Info) Description 08/22/2024 Refill [facility] [address] [place] [address] Анна Ha, CLINICAL DOCUMENTATION SPEC [address] [place] [address] Primary insomnia Social History Tobacco [...] Recorded Patient Health Questionnaire-2 Score 0 08/06/2024 [facility] - Occupational Stress Questionnaire Answer Date [...] 10:40 AM EDT Routine [facility] OB [address] [facility] [address] [place], [place] [address] 09/07/2024 1:00 PM EDT [facility] [address] [place] [address] Анна Ha NP [address] [place] [address] 12/15/2024 3:00 PM EDT Office Visit [facility] [address] [facility] [place] [address] Slava Castro DO [address] [place] [address] [place] [address] documented as of this encounter Goals [...] documented as of this encounter Care Teams Tool Shaper Setup Operator Relationship Specialty Start Date End Date Parag Bradley MD [address] [place] [address] PCP - General Family Medicine 08/14/22 Анна Ha NP [address] [place] [address] PCP - [facility] 08/25/23 documented as of this encounter
--- OUTSIDE RECORDS SUMMARY | 2024-09-01 11:14 | XMS_ITS | Encounter Summary ---
Author Organization [facility] Address [address] [place] [address] Care Team Providers Care Clinical Quality Rn Name Role Phone Parag Bradley MD Primary Care Provider Анна Ha NP Unavailable Encounter Details Date [...] often do you attend chur ch or christian services? More than 4 times per year 05/19/2023 Do you belong to any clubs o r organizations such as synagogue groups, unions, fraternal or athletic groups, or [...] Recorded Patient Health Questionnaire-2 Score 0 05/26/2023 [facility] of Occupat ional [facility] - Occupational Stress Questionnaire Answer Date [...] a senior living (including now)? No 05/19/2023 Comments Unknown Sex and Gender Information Value Date Recorded Sex Assigned at Not on file Legal Sex Female 7:11 PM EDT Gender Identity Female 05/08/2022 7:11 PM EDT Sexual Orientation Not on file documented as of this encounter Plan of Treatment Upcoming Encounters Date Type Department Care Team (Late st Contact Info) Description 09/02/2024 10:40 AM EDT Routine [facility] OB [address] [place] [address] [place] [address] Orlin Castro, DO [address] [place], [place] [address]Nat[place], [place] [address] 09/07/2024 1:00 PM EDT Office Visit [facility] [address] [place] [address] Анна Ha, EDGE BONDER [address] [place] [address] 12/15/2024 3:00 PM EDT Office Visit [facility] OB [address] [place] [address] Orlin Castro, [address] [place], [place] [address] documented as of this encounter Procedures Procedure Name Priority Date/Time Associated Diagnosis Comments US OB TRANSVAGINAL 06/20/2023 12 :10 PM EDT documented in this encounter Results * US OB TRANSVAGINAL (06/20/2023 12:10 PM EDT) Anatomical Region Laterality Modality Other 06/20/2023 12:1 0 PM EDT Narrative 06/20/2023 12:12 PM EDT The [address] [address] Ultrasound Report Signed Patient: ROXANNE MARSHALL MR#: [id number] : 1990 Acct:[id number] Age/Sex: 32 / F ADM Date: 06/20/23 Loc: [facility] Attending Dr: Orlin Castro D.O. Ordering Physician: Orlin Castro D.O. Date of Service: 06/20/23 Procedure(s): US OB transvaginal Accession Number(s): [id number] cc: Анна Ha NP; Orlin Castro D.O. [place] [address] Patient Name: ROXANNE MARSHALL MRN: [id number] date: 1990 Sex: F Assigned Patient Location: [facility] Current Patient Location: [facility] Accession/Order Number: [id number] Exam Date: 06/20/2023 08:31 Report Date: 06/20/2023 [...] Signed By: 06/20/23 1212 DD/ 1210 TD/TT: Electrogalvanizing Machine Operator: Procedure Note Radiology, Radiologist, - 06/20/2023 [place] [address] Ultrasound Report Signed Patient: ROXANNE MARSHALL DMR#: [id number] : 1990Acct:[id number] Age/Sex: 32 / FADM Date: 06/20/23 Loc: [facility] Attending Dr: Orlin Castro D.O. Ordering Physician: Orlin Castro D.O. Date of Service: 06/20/23 Procedure(s): US OB transvaginal Accession Number(s): [id number] cc: Анна Ha EDGE BONDER; Orlin Castro D.O. The [place] [id number] Patient Name: ROXANNE MARSHALL MRN: [id number] date: 1990 Sex: F Assigned Patient Location: [facility] Current Patient Location: [facility] Accession/Order Number: [id number] Exam Date: 06/20/2023 08:31 Report Date: 06/20/2023 [...] M.D. Signed By:06/20/23 1212 DD/ 1210 TD/TT: Electrogalvanizing Machine Operator: us Generic External Data Provider [facility] Final Result documented in this encounter Visit Diagnoses Not on filedocumented in this encounter Care Teams Clinical Quality Rn Relationship Specialty Start Date End Date Parag Bradley MD [address] [place] [address] PCP - General Family Medicine 08/14/22 Анна Ha NP [address] [place] [address] PCP - [facility] 08/25/23 documented as of this encounter
--- OUTSIDE RECORDS SUMMARY | 2024-09-01 11:15 | XMS_ITS | Encounter Summary ---
Author Organization [facility] Address [address] [place] [address] Care Team Providers Care Industrial Engineering Intern Name Role Phone Parag Bradley MD Primary Care Provider Анна Ha NP Unavailable [phone] Encounter Details Date Type Department Care Team (Late st Contact Info) Description 03/01/2024 Abstract [facility] OB [address] [place] [address] Slava Castro, DO [address] Wesley [place], [facility] Social History Tobacco Use Types [...] often do you attend chur ch or congregational services? More than 4 times per year [...] Recorded Patient Health Questionnaire-2 Score 1 09/01/2023 [facility] of Occupat ional [facility] - Occupational Stress Questionnaire Answer Date Recorded [...] Description 09/02/2024 10:40 AM EDT Routine [facility] OB [address] [facility] [address] Slava Castro DO [address] [place] [address] Dr Wesley [place], [place] [address] 09/07/2024 1:00 PM EDT Office Visit [facility] [address] [place] [address] Анна Ha NP [address] [place] [address] 12/15/2024 3:00 PM EDT Office Visit [facility] OB [address] [facility] [address] Slava Castro, [address] [place] [address] Dr Wesley [place], [place] [address] documented as of this encounter Goals Goal Patient Goal Type Associated Problems Recent Progress Patient-Stated? Author Reminders Care Plan OB Reminders No Open Scheduling, Background documented as of this encounter Visit Diagnoses Not on filedocumented in this encounter Additional Health Concerns Active Problems Noted Date Diagnosed Date OB Reminders 02/11/2024 documented as of this encounter Care Teams Industrial Engineering Intern Relationship Specialty Start Date End Date Parag Bradley MD [address] [place] [address] PCP - General Family Medicine 08/14/22 Анна Ha NP [address] [place] [address] PCP - [facility] 08/25/23 documented as of this encounter
--- OUTSIDE RECORDS SUMMARY | 2024-09-01 11:15 | XMS_ITS | Encounter Summary ---
Author Organization [facility] Address [address] [place] [address] Care Team Providers Care Issuing Operator Name Role Phone Parag Bradley MD Primary Care Provider Анна Ha NP Unavailable [phone] Encounter Details Date Type Department Care Team (Late st Contact Info) Description 02/11/2024 Abstract [facility] [address] [place] [address] Slava Castro, DO [address] [place], [facility] - [...] any clubs o r organizations such as episcopal groups, unions, fraternal or athletic groups, or [...] Recorded Patient Health Questionnaire-2 Score 1 09/01/2023 [facility] of Occupat ional [facility] - Occupational Stress Questionnaire Answer Date [...] Description 09/02/2024 10:40 AM EDT Routine [facility] OB [address] [place] [address] Slava Castro DO [address] [place] [address] Dr [place], [place] [address] 09/07/2024 1:00 PM EDT Office Visit [facility] [address] [place] [address] Анна Ha NP [address] [place] [address] 12/15/2024 3:00 PM EDT Office Visit [facility] OB [address] [place] [place] [address] Slava Castro, [address] [place] [address] Dr [place], [place] 55[address] documented as of this encounter Goals Goal Patient Goal Type Associated Problems Recent Progress Patient-Stated? Author Reminders Care Plan OB Reminders No Open Scheduling, Background documented as of this encounter Visit Diagnoses Not on filedocumented in this encounter Additional Health Concerns Active Problems Noted Date Diagnosed Date OB Reminders 02/11/2024 documented as of this encounter Care Teams Issuing Operator Relationship Specialty Start Date End Date Parag Bradley MD [address] [place] [address] PCP - General Family Medicine 08/14/22 Анна Ha NP [address] [place] [address] PCP - [facility] 08/25/23 documented as of this encounter
--- OUTSIDE RECORDS SUMMARY | 2024-09-01 11:15 | XMS_ITS | Encounter Summary ---
Author Organization [facility] Address [address] [place] [address] Care Team Providers Care Patient Ombudsperson Name Role Phone Parag Bradley MD Primary Care Provider [phone] Анна Ha PIER HAND Unavailable [phone] Encounter Details Date Type Department Care Team (Late Contact Info) Description 03/04/2023 Abstract [facility] [address] [place] [address] Анна Ha, PIER HAND [address] [place] [address] Social History Tobacco Use Types Packs/Day Years [...] Routine [facility] OB [address] [place] [address] Slava Castro DO [address] [place] [address] 09/07/2024 1:00 PM EDT Office Visit [facility] [address] [place] [address] Анна Ha, VÍCTOR [address] [place] [address] 12/15/2024 3:00 PM EDT Office Visit [facility] OB [address] [facility] [place] [address] Slava Castro DO [address] [facility] [place] [address] documented as of this encounter Visit Diagnoses Not on filedocumented in this encounter Care Teams Patient Ombudsperson Relationship Specialty Start Date End Date Parag Bradley MD [address] [place] [address] PCP - General Family Medicine 08/14/22 Анна Ha, VÍCTOR [address] [place] [address] PCP - [facility] 08/25/23 documented as of this encounter
--- OUTSIDE RECORDS SUMMARY | 2024-09-01 11:15 | XMS_ITS | Encounter Summary ---
Author Organization [facility] Address [address] [place] [address] Care Team Providers Care Milk Handler Name Role Phone Parag Bradley MD Primary Care Provider [phone] Анна Ha NP Unavailable [phone] Encounter Details Date Type Department Care Team (Late st Contact Info) Description 03/04/2024 Abstract [facility] OB [address] [place] [address] Slava Castro, DO [address] [place], [facility] Social History [...] any clubs o r organizations such as yarsani groups, unions, fraternal or athletic groups, or [...] Recorded Patient Health Questionnaire-2 Score 1 09/01/2023 [facility] [...] Description 09/02/2024 10:40 AM EDT Routine [facility] [address] [place] [phone] Slava Castro DO [address] [place] [address] Dr Wesley [place], [place] [id number] 09/07/2024 1:00 PM EDT Office Visit [facility] [address] [place] [address] Анна Ha NP [address] [place] [address] 12/15/2024 3:00 PM EDT Office Visit [facility] OB [address] [facility] [place] [address] Slava Castro, [address] [place] [address] Dr Wesley [place], [place] [id number] documented as of this encounter Goals Goal Patient Goal Type Associated Problems Recent Progress Patient-Stated? Author Reminders Care Plan OB Reminders No Open Scheduling, Background documented as of this encounter Visit Diagnoses Not on filedocumented in this encounter Additional Health Concerns Active Problems Noted Date Diagnosed Date OB Reminders 02/11/2024 documented as of this encounter Care Teams Milk Handler Relationship Specialty Start Date End Date Parag Bradley MD [address] [place] [address] PCP - General Family Medicine 08/14/22 Анна Ha NP [address] [place] [address] PCP - [facility] 08/25/23 documented as of this encounter
--- OUTSIDE RECORDS SUMMARY | 2024-09-01 11:15 | XMS_ITS | Encounter Summary ---
Author Organization [facility] Address [address] [place] [address] Care Team Providers Care Autocad Detailer Name Role Phone Parag Bradley MD Primary Care Provider [phone] Анна Ha NP Unavailable [phone] Encounter Details Date Type Department Care [...] often do you attend chur ch or baptist services? More than 4 times per year [...] Recorded Patient Health Questionnaire-2 Score 1 09/01/2023 [facility] - Occupational Stress Questionnaire Answer Date Recorded [...] Description 09/02/2024 10:40 AM EDT Routine [facility] OB [address] [place], [place] [address] [place] [address] Orlin Castro, [facility] [place], [place] [id number] 09/07/2024 1:00 PM EDT Office Visit [facility] [address] [place] [address] Анна Ha, SENIOR PRODUCTION SUPERVISOR [address] [place] [address] 12/15/2024 3:00 PM EDT Office Visit [facility] OB [address] [place], [place] [address] [place] [phone] Orlin Castro, [facility] [place], [place] [address] documented as of this encounter Goals Goal [...] AM EST Narrative 02/12/2024 4:31 [place] [address] Ultrasound Report Signed Patient: ROXANNE MARSHALL MR#: [id number] : 1990 Acct:[id number] Age/Sex: 33 / F ADM Date: 02/11/24 Loc: [facility] Attending Dr: Orlin Castro D.O. Ordering Physician: Orlin Castro D.O. Date of Service: 02/11/24 Procedure(s): US OB transvaginal Accession Number(s): [id number] cc: Анна Ha SENIOR PRODUCTION SUPERVISOR; Orlin Castro D.O. [address] [address] Patient Name: ROXANNE MARSHALL MRN: [id number] date: 1990 Sex: F Assigned Patient Location: [facility] Current Patient Location: Accession/Order Number: [id number] Exam Date: 02/11/2024 09:39 Report Date: 02/12/2024 [...] Signed By: 02/12/24 0431 DD/ 0429 TD/TT: Android Programmer: Procedure Note Radiology, Radiologist, MD Herr 02/12/2024 [place] [address] Ultrasound Report Signed Patient: ROXANNE MARSHALL DMR#: [id number] : 1990Acct:[id number] Age/Sex: 33 / FADM Date: 02/11/24 Loc: [facility] Attending Dr: Orlin Castro D.O. Ordering Physician: Orlin Castro D.O. Date of Service: 02/11/24 Procedure(s): US OB transvaginal Accession Number(s): [id number] cc: Анна Ha SENIOR PRODUCTION SUPERVISOR; Orlin Castro D.O. [place] [id number] Patient Name: ROXANNE MARSHALL MRN: [id number] date: 1990 Sex: F Assigned Patient Location: [facility] Current Patient Location: Accession/Order Number: [id number] Exam Date: 02/11/2024 09:39 Report Date: 02/12/2024 [...] M.D. Signed By:02/12/24 0431 DD/ 0429 TD/TT: Android Programmer: us Generic External Data Provider [facility] Final Result documented in this encounter Visit Diagnoses Not on filedocumented in this encounter Additional Health Concerns Active Problems Noted Date Diagnosed Date OB Reminders 02/11/2024 documented as of this encounter Care Teams Autocad Detailer Relationship Specialty Start Date End Date Parag Bradley MD [address] [place] [address] PCP - General Family Medicine 08/14/22 Анна Ha NP [address] [place] [address] PCP - [facility] 08/25/23 documented as of this encounter
--- OUTSIDE RECORDS SUMMARY | 2024-09-01 11:15 | XMS_ITS | Clinical Summary ---
Author Organization [facility] Address [address] [place] [address] Care Team Providers Care Registered Route Associate Name Role Phone Parag Bradley MD Primary Care Provider [phone] Анна Ha NP Unavailable [phone] Allergies Active Allergy Reactions Criticality Noted Date Comments Other 11/25/2022 Powder on gloves Other Reaction(s): rash/itching Medications MV-Min-Fe Fum-FA-DHA ( 1 PO) Take 1 each by mouth Daily Active aspirin 81 MG EC tablet Take 81 mg by mouth Daily Active omeprazole (PriLOSEC) [address] capsuleIndicat ions:Heartburn during in second trimester ([facility]) Take 1 capsule (20 mg) [...] Encounters Date Type Department Care Team Description 08/31/2024 Travel 08/27/2024 Travel 08/25/2024 Clinisync Result Encounter [facility] External Department Unsolicited Provider, Generic External Data 08/23/2024 Refill [facility] [address] [place] [phone] Анна Ha NP Primary insomnia 08/22/2024 Refill [facility] [address] [place] [phone] Анна Ha NP Primary insomnia 08/18/2024 9:30 AM EDT Routine [facility] [address] [place] [address] [place] [address] Ximena Carver NP Third trimester ([facility]); 34 weeks gestation of ([facility]) 08/18/2024 Clinisync Result Encounter [facility] External Department Unsolicited Provider, Generic External Data 08/18/2024 Bamboo flowsheet [facility]OM[facility] [address] [place] [address] Ximena Carver NP 08/17/2024 Travel 08/13/2024 Clinisync Result Encounter NOMS External Department Unsolicited Provider, Generic External Data 08/11/2024 Clinisync Result Encounter NOMS External Department Unsolicited Vidya Jackson PA 08/06/2024 Patient Outreach [facility] [address] [place] [address] Vidya Oliva LPN 08/04/2024 2:20 PM EDT Routine NOM[facility] [address] [place] [address] Orlin Castro DO 32 weeks gestation of ([facility]); Third trimester ([facility]) 08/04/2024 Abstract [facility] [address] [place] [address] Анна Ha NP 08/04/2024 Clinisync Result Encounter [facility]OMS External Department Unsolicited Provider, Generic External Data 08/03/2024 Travel 07/28/2024 Clinisync Result Encounter [facility]OM[facility] External Department Unsolicited Provider, Generic External Data 07/26/[address] [address] [place] [address] Orlin Castro DO 07/23/2024 Clinisync Result Encounter [facility] External Department Unsolicited Provider, Generic External Data 07/21/2024 2:20 PM EDT Routine NOM[facility] [address] [place] [address] Vidya Jackson PA Third trimester ([facility]); 30 weeks gestation of ([facility]); History of gestational diabetes 07/21/[address] [place] [address] Lizzy Wood MA 07/17/2024 Clinisync Result Encounter NOMS External Department Unsolicited Provider, Generic External Data 07/14/2024 Travel 07/08/2024 Telephone [facility] OB [address] [place], [place] [address] [place] [address] Leesa Coon MA 07/07/2024 Patient Outreach [facility] [address] [place] [address] Vidya Oliva LPN 07/06/2024 1:50 PM EDT Routine [facility] [place] [address] [place] [address] Orlin Castro DO Third trimester ([facility]); 28 weeks gestation of ([facility]); Elevated glucose tolerance test; Diabetes mellitus screening; SGA (small for gestational age) ([facility]) 07/06/2024 1:30 PM EDT Ancillary Procedure [facility] OB [address] [place] [address] [place] [address] Antepartum multigravida of advanced maternal age ([facility]) 07/05/2024 Clinisync Result Encounter NOMS External Department Unsolicited Provider, Generic External Data 06/16/2024 1:20 PM EDT Routine NOM[facility] [address] [place] [address] Ximena Carver NP Second trimester ([facility]); 25 weeks gestation of ([facility]); Screen for STD (sexually transmitted disease); Diabetes mellitus screening; Antepartum multigravida of advanced maternal age ([facility]) 06/16/2024 External Result Encounter NOMS External Department Unsolicited Orlin Castro DO 06/16/2024 Bamboo flowsheet [facility] OB [facility] [place] [address] Ximena Carver NP 06/15/2024 Travel 06/08/2024 Patient Outreach [facility] [address] [place] [address] Vidya Oliva LPN 06/03/2024 Travel from Last [...] week 08/31/2024 How often do you attend [facility] or lutheran services? More than 4 times per year 08/31/2024 Do you belong to any clubs o r organizations such as adventist groups, unions, fraternal or athletic groups, or [...] Recorded Patient Health Questionnaire-2 Score 0 08/06/2024 [facility] - Occupational [...] in a penitentiary (including now)? No 05/19/2023 Housing Stability Vital Sign Answer Leonidas e Recorded In the last 12 months, was t here a time when you were not able to pay the mortgage or rent on time? No 08/31/2024 In the past 12 months, how m any times have you moved where you were living? 0 08/31/2024 At any time in the past 12 m [facility], were you homeless or living in a penitentiary (including now)? No 08/31/2024 Estimated Date of [...] 10:40 AM EDT Routine [facility] [address] [place] [address] [place] [address] Orlin Castro, DO [address] [facility] [address] [place], [place] [address] 09/07/2024 1:00 PM EDT Office Visit [facility] [address] [place] [address] Анна Ha, ENDOSCOPY SUPPORT SPECIALIST [address] [place] [address] 12/15/2024 3:00 PM EDT Office Visit [facility] [address] [facility] [address] Orlin Castro, DO [address] [facility] [address] [place], [place] [address] Health Maintenance Due Date Last Done Comments Cervical Cancer Screening 12/09/2028 HPV/Cotest 12/09/2028 Pap Smear 12/09/2028 12/10/2023, 11/25/2022 Influenza Vaccine Discontinued 12/08/2017 Goals Goal Patient Goal Type Associated Problems Recent Progress Patient-Stated? Author Reminders Care Plan OB Reminders No Open Scheduling, Background Procedures Procedure Name Priority Date/Time Associated Diagnosis Comments US OB BPP W NON-STRESS 08/25/2024 11:33 AM EDT US OB BPP W NON-STRESS 08/18/2024 11:48 AM EDT POCT URINALYSIS DIPSTICK Routine 08/18/2024 10:28 AM EDT Third trimester ([facility]) US OB BPP W NON-STRESS 08/13/2024 5:27 PM EDT US OB BPP W NON-STRESS 08/11/2024 12:20 PM EDT POCT URINALYSIS DIPSTICK Routine 08/04/2024 2:36 PM EDT 32 weeks gestation of ([facility]) Third trimester ([facility]) US OB BPP W NON-STRESS 08/04/2024 11:43 AM EDT US OB GROWTH 07/28/2024 10:48 AM EDT GLUCOSE TOLERANCE 3 HOUR Routine 07/23/2024 9:09 AM EDT GLUCOSE 1 HOUR Routine 07/17/2024 9:48 AM EDT POCT URINALYSIS DIPSTICK Routine 07/06/2024 2:18 PM EDT Third trimester ([facility]) US OB FOLLOW UP TRANSABDOMINAL APPROACH Routine 07/06/2024 2:04 PM EDT Antepartum multigravida of advanced maternal age ([facility]) GLUCOSE 1 HOUR Routine 07/05/2024 10:48 AM EDT ALL CBC WITH AUTO DIFF Routine 10:48 AM EDT RECURRENT VAGINITIS (HTRX) Routine 06/16/2024 2:27 PM EDT POCT URINALYSIS DIPSTICK Routine 06/16/2024 1:50 PM EDT Second trimester ([facility]) PAP SMEAR Routine 12/10/2023 12:00 AM EDT from Last 3 Months or Most Recently Relevant to Health Maintenance Results * US OB BPP W NON-STRESS (08/25/2024 11:33 AM EDT) Only the most recent of5 resultswithin the time period is included. Anatomical Region Laterality Modality Other 08/25/2024 11:3 3 AM EDT Narrative 08/25/2024 11:35 AM EDT [address] [address] Ultrasound Report Signed Patient: ROXANNE MARSHALL MR#: [id number] : 1990 Acct:[id number] Age/Sex: 33 / F ADM Date: 08/25/24 Loc: [facility] 253-[address]: Vidya Jackson Ordering Physician: Vidya Jackson Date of Service: 08/25/24 Procedure(s): US OB BPP w non-stress Accession Number(s): [id number] cc: Анна Ha NP; Vidya Jackson [place] [address] Patient Name: ROXANNE MARSHALL MRN: [id number] date: 1990 Sex: F Assigned Patient Location: [facility] Current Patient Location: [facility] Accession/Order Number: [id number] Exam Date: 08/25/2024 11:31 Report Date: 08/25/2024 [...] Auguste M.D. 08/25/2024 11:33 AM Dictation Location: [place] [address] Electronically authenticated by: [id number] Y Date: 08/25/2024 11:33 Dictated By: Isatu Auguste M.D. Signed By: 08/25/24 1135 DD/ 1133 TD/TT: Network Contract Manager: Procedure Note Radiology, Radiologist, MD - 08/25/2024 [place] [address] Ultrasound Report Signed Patient: ROXANNE MARSHALL DMR#: [id number] : 1990Acct:[id number] Age/Sex: 33 / FADM Date: 08/25/24 Loc: [facility] 253-[address]: Vidya Jackson Ordering Physician: Vidya Jackson Date of Service: 08/25/24 Procedure(s): US OB BPP w non-stress Accession Number(s): [id number] cc: Анна Ha NP; Vidya Jackson [place] [address] Patient Name: ROXANNE MARSHALL MRN: [facility]:[id number] date: 1990 Sex: F Assigned Patient Location: [facility] Current Patient Location: [facility] Accession/Order Number: [id number] Exam Date: 08/25/2024 11:31 Report Date: 08/25/2024 [...] Auguste M.D. 08/25/2024 11:33 AM Dictation Location: [place] [address] Electronically authenticated by: [id number] Y Date: 1:33 Dictated By: Isatu Auguste M.D. Signed By:08/25/24 1135 DD/ 1133 TD/TT: Network Contract Manager: us Generic External Data Provider [facility] Final Result * (ABNORMAL) POCT urinalysis [...] EDT Narrative 07/28/2024 10:51 [place] [address] Ultrasound Report Signed Patient: ROXANNE MARSHALL MR#: [id number] : 1990 Acct:[id number] Age/Sex: 33 / F ADM Date: 07/28/24 Loc: US Attending Dr: Orlin Castro D.O. Ordering Physician: Orlin Castro D.O. Date of Service: 07/28/24 Procedure(s): US OB growth Accession Number(s): [id number] cc: Анна Ha NP; Orlin Castro D.O. [place] [address] Patient Name: ROXANNE MARSHALL MRN: [id number] date: 1990 Sex: F Assigned Patient Location: US Current Patient Location: US Accession/Order Number: [id number] Exam Date: 07/28/2024 10:44 Report Date: 07/28/2024 [...] Auguste M.D. 07/28/2024 10:48 AM Dictation Location: [place] [address] Electronically authenticated by: [id number] Y Date: 07/28/2024 10:48 Dictated By: Isatu Auguste M.D. Signed By: 07/28/24 1051 DD/ 1048 TD/TT: Network Contract Manager: Procedure Note Radiology, Radiologist, - 07/28/2024 [place] [address] Ultrasound Report Signed Patient: ROXANNE MARSHALL DMR#: [id number] : 1990Acct:[id number] Age/Sex: 33 / FADM Date: 07/28/24 Loc: US Attending Dr: Orlin Castro D.O. Ordering Physician: Orlin Castro D.O. Date of Service: 07/28/24 Procedure(s): US OB growth Accession Number(s): [id number] cc: Анна Ha NP; Orlin Castro D.O. [place] [id number] Patient Name: ROXANNE MARSHALL MRN: [id number] date: 1990 Sex: F Assigned Patient Location: Current Patient Location: US Accession/Order Number: [id number] Exam Date: 07/28/2024 10:44 Report Date: 07/28/2024 [...] Auguste M.D. 07/28/2024 10:48 AM Dictation Location: [place] [address] Electronically authenticated by: [id number] Y Date: 0:48 Dictated By: Isatu Auguste M.D. Signed By:07/28/24 1051 DD/ 1048 TD/TT: Network Contract Manager: us Generic External Data Provider [facility] Final Result * (ABNORMAL) GLUCOSE TOLERANCE 3 HOUR (07/23/2024 9:09 AM EDT) GLUCOSE TOLERANCE 3 HOUR (H) mg/dL [facility] Comment: GLU FAST 97H (<95) Col: 07/23/24 0909 GLU 1HR 151 (<180) Col: 07/23/24 1013 GLU 2HR 151 (<155) Col: 07/23/24 1113 GLU 3HR 123 (<140) Col: 07/23/24 1213 07/23/2024 9:09 AM EDT 07/23/2024 9:14 AM EDT Narrative [facility] - 07/23/2024 12:46 PM EDT us Orlin Gloria DO LAB BLOOD ORDERABLES Final Resul t Performing Organization Address City/[facility]/ZIP Co de Phone Number [facility] * (ABNORMAL) GLUCOSE 1 HOUR (07/17/2024 9:48 AM EDT) Only the most recent of2 resultswithin the time period is included. GLUCOSE 1 HOUR 162(H) <130 mg/dL [facility] 07/17/2024 9:48 AM EDT 07/17/2024 9:49 AM EDT Narrative [facility] - 07/17/2024 10:52 AM EDT us Orlin Gloria DO LAB BLOOD ORDERABLES Final Resul t [facility] * US OB follow up transabdominal approach [...] II, MD, PHD at 07-Jul-2024 10:00:26 AM [facility] Procedure Note Tabitha Campbell MD - [...] signed by TABITHA CAMPBELL II, MD, PHD [id number] 10:00:26 AM [facility] us Orlin Gloria DO IMG OB [...] Narrative [facility] - 07/05/2024 10:58 AM EDT Ximena Carver NP [facility] Final Result [facility] * RECURRENT VAGINITIS (HTRX) (06/16/2024 2:27 PM EDT) ATOPOBIUM VAGINAE 0.000 19.961 - 24.689 ppm 06/17/2024 8:02 AM EDT [facility] ATOPOBIUM VAGINAE Not Detected 19.961 - 24.689 ppm 06/17/2024 8:02 AM EDT [facility] BVAB 2,3 (BACTERIAL VAGINOSIS ASSOCIATED BACTERIA 2, 3); MOBILUNCUS SPP 0.000 19.961 - 24.689 ppm 06/17/2024 8:02 AM EDT [facility] BVAB 2,3 (BACTERIAL VAGINOSIS ASSOCIATED BACTERIA 2, 3); MOBILUNCUS SPP Not Detected 19.961 - 24.689 ppm 06/17/2024 8:02 AM EDT [facility] RANJANA ALBICANS, PARAPSILOSIS, TROPICALIS 0.000 19.961 - 30.770 ppm 06/17/2024 8:02 AM EDT [facility] RANJANA ALBICANS, PARAPSILOSIS, TROPICALIS Not Detected 19.961 - 30.770 ppm 06/17/2024 8:02 AM EDT [facility] RANJANA GLABRATA 0.000 23.000 - 32.138 ppm 06/17/2024 8:02 AM EDT [facility] RANJANA GLABRATA Not Detected 23.000 - 32.138 ppm 06/17/2024 8:02 AM EDT [facility] RANJANA KRUSEI 0.000 23.000 - 32.271 ppm 06/17/2024 8:02 AM EDT [facility] RANJANA KRUSEI Not Detected 23.000 - 32.271 ppm 06/17/2024 8:02 AM EDT [facility] CHLAMYDIA TRACHOMATIS 0.000 23.000 - 31.467 ppm 06/17/2024 8:02 AM EDT [facility] CHLAMYDIA TRACHOMATIS Not Detected 23.000 - 31.467 ppm 06/17/2024 8:02 AM EDT [facility] GARDNERELLA VAGINALIS 0.000 19.961 - 24.689 ppm 06/17/2024 8:02 AM EDT [facility] GARDNERELLA VAGINALIS Not Detected 19.961 - 24.689 ppm 06/17/2024 8:02 AM EDT [facility] MEGASPHAERA (TYPES 1, 2) 0.000 19.961 - 24.689 ppm 06/17/2024 8:02 AM EDT [facility] MEGASPHAERA (TYPES 1, 2) Not Detected 19.961 - 24.689 ppm 06/17/2024 8:02 AM EDT [facility] NEISSERIA GONORRHOEAE 0.000 23.000 - 32.117 ppm 06/17/2024 8:03 AM EDT [facility] NEISSERIA GONORRHOEAE Not Detected 23.000 - 32.117 ppm 06/17/2024 8:03 AM EDT [facility] TRICHOMONAS VAGINALIS 0.000 23.000 - 32.119 ppm 06/17/2024 8:02 AM EDT [facility] TRICHOMONAS VAGINALIS Not Detected 23.000 - 32.119 ppm 06/17/2024 8:02 AM EDT [facility] MYCOPLASMA GENITALIUM 0.000 19.961 - 24.689 ppm 06/17/2024 8:02 AM EDT [facility] MYCOPLASMA GENITALIUM Not Detected 19.961 - 24.689 ppm 06/17/2024 8:02 AM EDT [facility] Tissue 06/16/2024 2:27 PM EDT 06/17/2024 1:54 AM EDT Orlin Gloria DO LAB BLOOD ORDERABLES Final Resul t [facility] [address] [place] [address] * Pap Smear (12/10/2023 12:00 AM EDT) Swab Cervical swab / Unknown Orlin Gloria DO LAB CYTOLOGY ORDERABLES Final Re sult EXTERNAL LAB from Last 3 Months or Most Recently Relevant to Health Maintenance Additional Health Concerns Active Problems Noted Date Diagnosed Date OB Reminders 02/11/2024 Insurance [employer] Care Teams Registered Route Associate Relationship Specialty Start Date End Date Naderer, Parag, MD [address] [place] [address] PCP - General Family Medicine 08/14/22 Анна Ha NP [address] [place] [address] PCP - [facility] 08/25/23
[2024-09-01 11:47] VITALS: BP 125/79; PULSE 65
== END 2024-09-01 12:41 | disposition home or self-care (01) ==
LOC: US 11:11 → FBC 11:20
PROVIDERS: PCP Nurse Practitioner; Visit Provider Physician Assistant
DX: O09.523 Supervision of elderly multigravida, third trimester (principal)
CPT/HCPCS: 76818

== ENCOUNTER 2024-09-02 19:19 | Outpatient (REF) | payer OTHER, SELFPAY ==
--- OUTSIDE RECORDS SUMMARY | 2021-03-22 12:00 | XMS_ITS | Continuity of Care Document ---
Author Organization [facility] Address [address] [place] [address] Phone Care Team Providers Care Brand Director Name Role Phone Tash Sandhu DMD Unavailable Unavailable Allergies, Adverse Reactions, Alerts Substance Reaction Status Criticality No Known Allergies Active No Inform ation Medications Medication Instructions Dosage Effective Dates (start - stop) Status Comments Mirena 20 mcg/24 hours (6 yrs) 52 mg intrauterine device - Active Procedures Procedure Date Nutrit Couns For Control Of [place] Dis Feb Bitewings-three Films Panoramic Film Comp Oral Eval New/estab Patient 2021 Oral Hygiene Instruction Limited Oral Eval Extract; Erupted Th/exposted Rt 021 Extract; Erupted Th/exposted Rt 021 Bitewig-single Film Intraoral-periapical 1st Film Advance Directives Directive Yes / No Effective Date File Name No Information Encounters Encounter Description Practice Location Reason(s) For Visit Diagnoses Date Provider Providers Copied on Encounter [facility], [address] [place] [address], [id number], tel:[phone] Dental Clinic DN (chief complaint) Encounter for screening for dental disorders Edson Bianchi. [address] [place] [address], [id number], [place]. tel:[phone] [facility], [address] [place] [address], [id number], tel:[phone] Dental Clinic Dental New (chief complaint) Encounter for screening for dental disorders Edson Bianchi. [address] [place], [place], [id number], [place]. tel:[phone] Family History Family Member Type Diagnosis Age At Onset Mother Problem Alive and well Father Problem Alive and well Mother Problem Cardiovascular disease Payers Payer name Insurance type Covered alliance party ID Aston jason(s) D Medicaid [facility] [id number] Social History Type Description Quantity Date Captured [...]
--- OUTSIDE RECORDS SUMMARY | 2024-04-05 11:45 | XMS_ITS ---
Author Organization [facility] [address] [place] [address] Care Team Providers Care Manager Utilization Name Role Phone Naida Valera Primary Care Provider REASON FOR VISIT EXT Encounters Encounter Location Date Provider Diagnosis [facility] [address] [place] [address] 04/05/2024 Naida Valera Plan Of Treatment Next Appt Details Provider Name:Naida ruff, 11/12/2024 10:30:00 AM, [address] [facility] [place], [address], Progress Notes * ROXANNE ROGERS DDOB: 9 (34 yo F)Acc No.[id number]:04/05/2024 Patient: ROXANNE KENNY Provider: Elizabeth Valera DDS :1990 A ge:33 Y S ex:Female Date:04/05/2024 Address:[address] [place] [phone] Subjective: * Chief Complaints: * 1 . EXT. * Medical History: Objective: * Vitals: Assessment: Plan: * Treatment: * Images: * Electronic signature of Harjit Valera DDS on 09/02/2024 at 10:34 AM EDT Sign off status: Pending * Provider: Elizabeth Valera DDS Date: 0 04/05/2024 Generated for Adam son/Makenzie/Chinyereitting on: 0 09/02/2024 10:34 AM EDT
--- OUTSIDE RECORDS SUMMARY | 2024-04-19 09:00 | XMS_ITS ---
[facility] Address [address] [place] [address] Care Team Providers Care Milking Machine Technician Name Role Phone Naida Valera Primary Care Provider REASON FOR VISIT FILLING Encounters Encounter Location Date Provider Diagnosis [facility] [address] [place] [address] 04/19/2024 Naida Valera Plan Of Treatment Next Appt Details Provider Name:Naida ruff, 11/12/2024 10:30:00 AM, [address] [place], [address], Progress Notes * ROXANNE ROGERS DDOB: [birth year] (34 yo F)Acc No.[id number]:04/19/2024 Patient: ROXANNE KENNY Provider: Elizabeth Valera DDS :1990 A ge:33 Y S ex:Female Date:04/19/2024 Address:[address] [place] [id number] Subjective: * Chief Complaints: * 1 . FILLING. * Medical History: Objective: * Vitals: Assessment: Plan: * Treatment: * Images: * Electronic signature of Harjit Valera DDS on 09/02/2024 at 10:34 AM EDT Sign off status: Pending * Provider: Elizabeth Valera DDS Date: 04/19/2024 Generated for Adam son/Makenzie/Chinyereitting on: 0 09/02/2024 10:34 AM EDT
--- OUTSIDE RECORDS SUMMARY | 2024-09-02 10:40 | XMS_ITS | Encounter Summary ---
Author Organization [facility] Address [address] [place] [address] Care Team Providers Care Starch Factory Laborer Name Role Phone Parag Bradley MD Primary Care Provider [phone] Анна Ha NP Unavailable [phone] Reason for Visit * Reason Comments Routine Visit Encounter Details Date Type Department Care Team (Latest Contact Info) Description 09/02/2024 10:40 AM EDT Routine [facility] [address] [place] [address] Slava Castro, DO [address] [place], [place] [address] 36 weeks gestation of ([facility]); Third trimester ([facility]); History of gestational diabetes; Antepartum multigravida of advanced maternal age ([facility]) Social History Tobacco Use Types Packs/Day Years [...] How often do you attend chur or yazidism services? More than 4 times per year [...] Recorded Patient Health Questionnaire-2 Score 0 08/06/2024 [facility] [place] of Occupat ional Health - Occupational Stress [...] in a longterm (including now)? No 05/19/2023 Housing Stability Vital Sign Answer Leonidas e Recorded In the last 12 months, was t here a time when you were not able to pay the mortgage or rent on time? No 08/31/2024 In the past 12 months, how m any times have you moved where you were living? 0 08/31/2024 At any time in the past 12 m [facility], were you homeless or living in a longterm (including now)? No 08/31/2024 Estimated Date of [...] abnormal pap smear PAP SMEAR 03/07/2014 [facility] Drug Therapy -SVT TONSILLECTOMY 1992 [...] nursing note reviewed. Exam conducted with a revenue collector present. Vitals: Estimated body mass index is 33.6 kg/m?? as calculated from the following: Height as of 24: 5' 1 . Weight as of this encounter: 177 lb 12.8 oz. BP: 120/70 Patient's last menstrual period was 12/11/2023. ASSESSMENT & PLAN ICD-10-CM 1. 36 weeks gestation of ([facility]) Z3A.36 POCT urinalysis dipstick manually resulted 2. Third trimester ([facility]) Z34.93 POCT urinalysis dipstick manually resulted CULTURE, GROUP B STREP WITH SUSCEPTIBLITY CULTURE, GROUP B STREP WITH SUSCEPTIBLITY 3. History of gestational diabetes Z86.32 4. Antepartum multigravida of advanced maternal age ([facility]) O09.529 Patient is doing well but has [...] Care Team (Late st Contact Info) Description 09/07/2024 1:00 PM EDT Office Visit [facility] [address] [place] [address] Анна Ha NP [address] [place] [address] 09/09/2024 11:50 AM EDT Routine [facility] [address] [facility] [place] [address] Slava Castro DO [address] [place] [address] 12/15/2024 3:00 PM EDT Office Visit [facility] OB [address] [place] [address] Slava Castro, [address] [place] [address] [place] [address] Scheduled Orders Name Type Priority Associated Diagnoses Orde r Schedule CULTURE, GROUP B STREP WITH SUSCEPTIBLITY Lab Routine Third trimester ([facility]) Expected: 09/02/2024, Expires: 09/02/2025 documented as of this encounter Goals Goal Patient Goal Type Associated Problems Recent Progress Patient-Stated? Author Reminders Care Plan OB Reminders No Open Scheduling, Background documented as of this encounter Procedures Procedure Name Priority Date/Time Associated Diagnosis Comments POCT URINALYSIS DIPSTICK Routine 09/02/2024 10:53 AM EDT 36 weeks gestation of ([facility]) Third trimester ([facility]) documented in this encounter Results [...] UA Positive Negative - 2000(20) ++++ mg/dL Comment:30 Urobilinogen, UA 1.0 0.2 - 12 mg/dL Leukocytes, UA Negative Negative - 500+++ Tano/mcL Nitrite, UA Negative Negative - Positive Urine 09/02/2024 10:5 3 AM EDT Slava Castro DO POINT OF CARE TEST ENTER/EDIT OR DERABLES Final Result documented in this encounter Visit Diagnoses Diagnosis 36 weeks gestation of ([facility]) Third trimester ([facility]) state, incidental History of gestational diabetes Personal history of other genital system and obstetric disorders Antepartum multigravida of advanced maternal age ([facility]) documented in this encounter Additional Health Concerns Active Problems Noted Date Diagnosed Date OB Reminders 02/11/2024 documented as of this encounter Care Teams Starch Factory Laborer Relationship Specialty Start Date End Date Parag Bradley MD [address] [place] [address] PCP - General Family Medicine 08/14/22 Анна Ha NP [address] [place] [address] PCP - [facility] 08/25/23 documented as of this encounter
--- OUTSIDE RECORDS SUMMARY | 2024-09-02 19:21 | XMS_ITS | Encounter Summary ---
Author Organization [facility] Address [address] [place] [address] Care Team Providers Care Rough Carpenter Name Role Phone Parag Bradley MD Primary Care Provider [phone] Анна Ha NP Unavailable [phone] Encounter Details Date Type Department Care [...] Recorded Patient Health Questionnaire-2 Score 0 05/26/2023 [facility] of Occupat ional [facility] - Occupational Stress Questionnaire Answer Date Recorded [...] in a prison (including now)? No 05/19/2023 Comments Unknown Sex [...] [facility] [address] [place] [address] Анна Ha, ALLIED HEALTH TEACHER [address] [place] [address] 09/09/2024 11:50 AM EDT Routine [facility] [address] [place] [address] Orlin Castro, [facility] [address] [place], [place] [id number] 12/15/2024 3:00 PM EDT Office Visit [facility] OB [address] [place] [phone] Orlin Castro, [address] [place], [place] [address] documented as of this encounter Procedures Procedure Name Priority Date/Time Associated Diagnosis Comments US OB TRANSVAGINAL 06/26/2023 10 :14 AM EDT documented in this encounter Results * US OB TRANSVAGINAL (06/26/2023 10:14 AM EDT) Anatomical Region Laterality Modality Other 06/26/2023 10:1 4 AM EDT Narrative 06/26/2023 10:16 AM EDT The [address] [address] Ultrasound Report Signed Patient: ROXANNE MARSHALL MR#: [id number] : 1990 Acct:[id number] Age/Sex: 32 / F ADM Date: 06/26/23 Loc: [facility] Attending Dr: Orlin Castro D.O. Ordering Physician: Orlin Castro D.O. Date of Service: 06/26/23 Procedure(s): US OB transvaginal Accession Number(s): [id number] cc: Анна Ha NP; Orlin Castro D.O. The [address] [id number] Patient Name: ROXANNE MARSHALL MRN: [id number] date: 1990 Sex: F Assigned Patient Location: [facility] Current Patient Location: [facility] Accession/Order Number: [id number] Exam Date: 06/26/2023 09:09 Report Date: 06/26/2023 [...] Signed By: 06/26/23 1016 DD/ 1014 TD/TT: Summer Intern: Procedure Note Radiology, Radiologist, - 06/26/2023 [place] [address] Ultrasound Report Signed Patient: ROXANNE MARSHALL DMR#: [id number] : 1990Acct:[id number] Age/Sex: 32 / FADM Date: 06/26/23 Loc: [facility] Attending Dr: Orlin Castro D.O. Ordering Physician: Orlin Castro D.O. Date of Service: 06/26/23 Procedure(s): US OB transvaginal Accession Number(s): [id number] cc: Анна Ha ALLIED HEALTH TEACHER; Orlin Castro D.O. [place] [address] Patient Name: ROXANNE MARSHALL MRN: [id number] date: 1990 Sex: F Assigned Patient Location: [facility] Current Patient Location: [facility] Accession/Order Number: [id number] Exam Date: 06/26/2023 09:09 Report Date: 06/26/2023 [...] M.D. Signed By:06/26/23 1016 DD/ 1014 TD/TT: Summer Intern: us Generic External Data Provider [facility] Final Result documented in this encounter Visit Diagnoses Not on filedocumented in this encounter Care Teams Rough Carpenter Relationship Specialty Start Date End Date Parag Bradley MD [address] [place] [address] PCP - General Family Medicine 08/14/22 Анна Ha NP [address] [place] [address] PCP - [facility] 08/25/23 documented as of this encounter
--- OUTSIDE RECORDS SUMMARY | 2024-09-02 19:21 | XMS_ITS | Encounter Summary ---
Author Organization [facility] Address [address] [place] [address] Care Team Providers Care Screen Printing Machine Loader Unloader Name Role Phone Parag Bradley MD Primary Care Provider [phone] Анна Ha NP Unavailable [phone] Encounter Details Date Type Department Care [...] often do you attend chur ch or protestant services? More than 4 times [...] Recorded Patient Health Questionnaire-2 Score 0 05/26/2023 [facility] of Occupat ional [facility] - Occupational Stress Questionnaire Answer [...] [facility] [address] [place] [address] Анна Ha, CABLE TELEVISION ACCESS COORDINATOR [address] [place] [address] 09/09/2024 11:50 AM EDT Routine [facility] OB [address] [place] [address] Orlin Castro, [facility] [address] [place], [place] [address] 12/15/2024 3:00 PM EDT Office Visit [facility] OB [address] [place] [address] Orlin Castro, [address] [place], [place] [address] documented as of this encounter Procedures Procedure Name Priority Date/Time Associated Diagnosis Comments US OB TRANSVAGINAL 06/20/2023 12 :10 PM EDT documented in this encounter Results * US OB TRANSVAGINAL (06/20/2023 12:10 PM EDT) Anatomical Region Laterality Modality Other 06/20/2023 12:1 0 PM EDT Narrative 06/20/2023 12:12 PM EDT The [address] [address] Ultrasound Report Signed Patient: ROXANNE MARSHALL MR#: [id number] : 1990 Acct:[id number] Age/Sex: 32 / F ADM Date: 06/20/23 Loc: [facility] Attending Dr: Orlin Castro D.O. Ordering Physician: Orlin Castro D.O. Date of Service: 06/20/23 Procedure(s): US OB transvaginal Accession Number(s): [id number] cc: Анна Ha NP; Orlin Castro D.O. [place] [address] Patient Name: ROXANNE MARSHALL MRN: [id number] date: 1990 Sex: F Assigned Patient Location: [facility] Current Patient Location: [facility] Accession/Order Number: [id number] Exam Date: 06/20/2023 08:31 Report Date: 06/20/2023 [...] Signed By: 06/20/23 1212 DD/ 1210 TD/TT: Garbage Collector Supervisor: Procedure Note Radiology, Radiologist, - 06/20/2023 [place] [address] Ultrasound Report Signed Patient: ROXANNE MARSHALL DMR#: [id number] : 1990Acct:[id number] Age/Sex: 32 / FADM Date: 06/20/23 Loc: [facility] Attending Dr: Orlin Castro D.O. Ordering Physician: Orlin Castro D.O. Date of Service: 06/20/23 Procedure(s): US OB transvaginal Accession Number(s): [id number] cc: Анна Ha CABLE TELEVISION ACCESS COORDINATOR; Orlin Castro D.O. The [place] [id number] Patient Name: ROXANNE MARSHALL MRN: [id number] date: 1990 Sex: F Assigned Patient Location: [facility] Current Patient Location: [facility] Accession/Order Number: [id number] Exam Date: 06/20/2023 08:31 Report Date: 06/20/2023 [...] Ultrasound age: 5 weeks 5 days Ultrasound EBLL: 02/15/2024 US/US OB transvaginal IMPRESSION: No change in crown-rump length over the course of 7 days. Findings are consistent with miscarriage/ demise Electronically authenticated by: MARE ANDERSON Date: 06/20/2023 12:10 Dictated By: Mare Anderson M.D. Signed By:06/20/23 1212 DD/ 1210 TD/TT: Garbage Collector Supervisor: us Generic External Data Provider [facility] Final Result documented in this encounter Visit Diagnoses Not on filedocumented in this encounter Care Teams Screen Printing Machine Loader Unloader Relationship Specialty Start Date End Date Parag Bradley MD [address] [place] [address] PCP - General Family Medicine 08/14/22 Анна Ha NP [address] [place] [address] PCP - [employer] [facility] [employer] 08/25/23 documented as of this encounter
--- OUTSIDE RECORDS SUMMARY | 2024-09-02 19:22 | XMS_ITS | Encounter Summary ---
Author Organization [facility] Address [address] [place] [address] Care Team Providers Care Outpatient Physical Therapist Assistant Name Role Phone Parag Bradley MD Primary Care Provider [phone] Анна Ha NP Unavailable [phone] Encounter Details Date Type Department Care Team (Late st Contact Info) Description 03/01/2024 Abstract [facility] OB [address] [place] [address] Slava Castro, DO [address] [place], [facility] Social History Tobacco Use Types [...] often do you attend chur ch or cheondoism services? More than 4 times per year [...] Patient Health Questionnaire-2 Score 1 09/01/2023 [facility] of Occupat ional [facility] - Occupational Stress Questionnaire Answer Date [...] 1:00 PM EDT Office Visit [facility] [address] [place] [address] Анна Ha NP [address] [place] [address] 09/09/2024 11:50 AM EDT Routine [facility] OB [address] [place] [address] Slava Castro, DO [address] [place], [place] [address] 12/15/2024 3:00 PM EDT Office Visit [facility] OB [address] [place] [address] Slava Castro, DO [address] [place] [address] documented as of this encounter Goals Goal Patient Goal Type Associated Problems Recent Progress Patient-Stated? Author Reminders Care Plan OB Reminders No Open Scheduling, Background documented as of this encounter Visit Diagnoses Not on filedocumented in this encounter Additional Health Concerns Active Problems Noted Date Diagnosed Date OB Reminders 02/11/2024 documented as of this encounter Care Teams Outpatient Physical Therapist Assistant Relationship Specialty Start Date End Date Parag Bradley MD [address] [place] [address] PCP - General Family Medicine 08/14/22 Анна Ha NP [address] [place] [address] PCP - [facility] 08/25/23 documented as of this encounter
--- OUTSIDE RECORDS SUMMARY | 2024-09-02 19:22 | XMS_ITS | Encounter Summary ---
Author Organization [facility] Address [address] [place] [address] Care Team Providers Care Networking Administrator Name Role Phone Parag Bradley MD Primary Care Provider Анна Ha NP Unavailable [phone] Encounter Details Date Type Department Care Team (Late st Contact Info) Description 06/26/2023 Orders Only [facility] [address] [facility] [place] [address] Slava Castro, DO [address] [facility] [place], [place] [address] Social History Tobacco Use Types Packs/Day Years [...] How often do you attend chur or orthodox services? More than 4 times per [...] Recorded Patient Health Questionnaire-2 Score 0 05/26/2023 [facility] - [facility]ational Stress Questionnaire [...] [facility] [address] [place] [address] Анна Ha NP [address] [place] [address] 09/09/2024 11:50 AM EDT Routine [facility] OB [address] [place] [address] Slava Castro [address] [place], [place] [address] 12/15/2024 3:00 PM EDT Office Visit [facility] OB [address] [place] [address] Slava Castro DO [address] [place] [address] [place], [place] [address] documented as of this encounter Procedures Procedure [...] on filedocumented in this encounter Care Teams Networking Administrator Relationship Specialty Start Date End Date Parag Bradley MD [address] [place] [address] PCP - General Family Medicine 08/14/22 Анна Ha NP [address] [place] [address] PCP - [facility] 08/25/23 documented as of this encounter
--- OUTSIDE RECORDS SUMMARY | 2024-09-02 19:22 | XMS_ITS | Encounter Summary ---
Author Organization [facility] Address [address] [place] [address] Care Team Providers Care Fire Prevention Forester Name Role Phone Parag Bradley MD Primary Care Provider [phone] Анна Ha NP Unavailable [phone] Encounter Details Date Type Department Care [...] any clubs o r organizations such as caodaism groups, unions, fraternal or athletic groups, or [...] Recorded Patient Health Questionnaire-2 Score 0 08/06/2024 [facility] - Occupational Stress [...] in a fdc (including now)? No 05/19/2023 Housing Stability Vital Sign Answer Leonidas e Recorded In the last 12 months, was t here a time when you were not able to pay the mortgage or rent on time? No 08/31/2024 In the past 12 months, how m any times have you moved where you were living? 0 08/31/2024 At any time in the past 12 m [facility], were you homeless or living in a fdc (including now)? No 08/31/2024 Estimated Date of [...] CWM FM [address] [place] [address] Анна Ha, VÍCTOR [address] [place] [address] 09/09/2024 11:50 AM EDT Routine [facility] OB [address] [facility] [address] Slava Castro, DO [address] [place], [place] [address] 12/15/2024 3:00 PM EDT Office Visit [facility] OB [address] [facility] [place] [address] Slava Castro, DO [address] [facility] [place] [address] documented as of this encounter Goals Goal Patient Goal Type Associated Problems Recent Progress Patient-Stated? Author Reminders Care Plan OB Reminders No Open Scheduling, Background documented as of this encounter Visit Diagnoses Not on filedocumented in this encounter Additional Health Concerns Active Problems Noted Date Diagnosed Date OB Reminders 02/11/2024 documented as of this encounter Care Teams Fire Prevention Forester Relationship Specialty Start Date End Date Parag Bradley MD [address] [place] [address] PCP - General Family Medicine 08/14/22 Анна Ha NP [address] [place] [address] PCP - [facility] 08/25/23 documented as of this encounter
--- OUTSIDE RECORDS SUMMARY | 2024-09-02 19:22 | XMS_ITS | Encounter Summary ---
Author Organization [facility] Address [address] [place] [address] Care Team Providers Care Stockroom Coordinator Name Role Phone Parag Bradley MD Primary Care Provider [phone] Анна Ha KITCHEN WORKER Unavailable [phone] Encounter Details Date Type Department Care Team (Late st Contact Info) Description 08/04/2024 Abstract [facility] [address] [place] [address] Анна Ha, VÍCTOR [address] [place] [address] Social History Tobacco Use Types Packs/Day Years [...] Recorded Patient Health Questionnaire-2 Score 0 08/06/2024 [facility] - Occupational Stress Questionnaire Answer [...] [facility] [address] [place] [address] Анна Ha NP [address] [place] [address] 09/09/2024 11:50 AM EDT Routine [facility] OB [address] [facility] [place] [address] Slava Castro, DO [address] [place], [place] [address] 12/15/2024 3:00 PM EDT Office Visit [facility] OB [address] [facility] [address] Slava Castro, [address] [place] [address] [place] [address] documented as of this encounter Goals Goal Patient Goal Type Associated Problems Recent Progress Patient-Stated? Author Reminders Care Plan OB Reminders No Open Scheduling, Background documented as of this encounter Visit Diagnoses Not on filedocumented in this encounter Additional Health Concerns Active Problems Noted Date Diagnosed Date OB Reminders 02/11/2024 documented as of this encounter Care Teams Stockroom Coordinator Relationship Specialty Start Date End Date Parag Bradley MD [address] [place] [address] PCP - General Family Medicine 08/14/22 Анна Ha NP [address] [place] [address] PCP - [facility] 08/25/23 documented as of this encounter
--- OUTSIDE RECORDS SUMMARY | 2024-09-02 19:22 | XMS_ITS | Encounter Summary ---
Author Organization [facility] Address [address] [place] [address] Care Team Providers Care Residential Installer Name Role Phone Parag Bradley MD Primary Care Provider [phone] Анна Ha NP Unavailable [phone] Encounter Details Date Type Department Care [...] Recorded Patient Health Questionnaire-2 Score 1 09/01/2023 [facility] of Occupat ional [facility] - Occupational Stress Questionnaire Answer [...] CWM FM [address] [place] [address] Анна Ha, VÍCTOR [address] [place] [address] 09/09/2024 11:50 AM EDT Routine [facility] OB [address] [place] [address] Orlin Castro, DO [address] [place] [address] [place], [place] [address] 12/15/2024 3:00 PM EDT Office Visit [facility] OB [address] [place] [address] Orlin Castro, DO [address] [place], [place] [address] documented as of this encounter Goals Goal [...] AM EST Narrative 02/12/2024 4:31 [place] [address] Ultrasound Report Signed Patient: ROXANNE MARSHALL MR#: [id number] : 1990 Acct:[id number] Age/Sex: 33 / F ADM Date: 02/11/24 Loc: [facility] Attending Dr: Orlin Castro D.O. Ordering Physician: Orlni Castro D.O. Date of Service: 02/11/24 Procedure(s): US OB transvaginal Accession Number(s): [id number] cc: Анна Ha FINISHED CIGAR MAKER; Orlin Castro D.O. [address] [address] Patient Name: ROXANNE MARSHALL MRN: [id number] date: 1990 Sex: F Assigned Patient Location: [facility] Current Patient Location: Accession/Order Number: [id number] Exam Date: 02/11/2024 09:39 Report Date: 02/12/2024 [...] Signed By: 02/12/24 0431 DD/ 0429 TD/TT: Mechanical Specialist: Procedure Note Radiology, Radiologist, MD Herr 02/12/2024 [place] [address] Ultrasound Report Signed Patient: ROXANNE MARSHALL DMR#: [id number] : 1990Acct:[id number] Age/Sex: 33 / FADM Date: 02/11/24 Loc: [facility] Attending Dr: Orlin Castro D.O. Ordering Physician: Orlin Castro D.O. Date of Service: 02/11/24 Procedure(s): US OB transvaginal Accession Number(s): [id number] cc: Анна Ha FINISHED CIGAR MAKER; Orlin Castro D.O. The [place] [id number] Patient Name: ROXANNE MARSHALL MRN: [id number] date: 1990 Sex: F Assigned Patient Location: [facility] Current Patient Location: Accession/Order Number: [id number] Exam Date: 02/11/2024 09:39 Report Date: 02/12/2024 [...] M.D. Signed By:02/12/24 0431 DD/ 0429 TD/TT: Mechanical Specialist: us Generic External Data Provider [facility] Final Result documented in this encounter Visit Diagnoses Not on filedocumented in this encounter Additional Health Concerns Active Problems Noted Date Diagnosed Date OB Reminders 02/11/2024 documented as of this encounter Care Teams Residential Installer Relationship Specialty Start Date End Date Parag Bradley MD [address] [place] [address] PCP - General Family Medicine 08/14/22 Анна Ha NP [address] [place] [address] PCP - [facility] 08/25/23 documented as of this encounter
--- OUTSIDE RECORDS SUMMARY | 2024-09-02 19:22 | XMS_ITS | Encounter Summary ---
Author Organization [facility] Address [address] [place] [address] Care Team Providers Care Seismographer Name Role Phone Parag Bradley MD Primary Care Provider Анна Ha BEATER TENDER Unavailable [phone] Reason for Visit * Reason Comments Med Refill Encounter Details Date Type Department Care Team (Late st Contact Info) Description 08/23/2024 Refill [facility] [address] [place] [address] Анна Ha, VÍCTOR [address] [place] [address] Primary insomnia Social History Tobacco [...] How often do you attend chur or taoist services? More than 4 times [...] Health Questionnaire-2 Score 0 08/06/2024 [facility] of Occupat ional [facility] - [...] EDT Office Visit [facility] [address] [place] [address] Анна Ha, VÍCTOR [address] [place] [address] 09/09/2024 11:50 AM EDT Routine [facility] OB [address] [place] [address] Slava Castro, DO [address] [place] [address] 12/15/2024 3:00 PM EDT Office Visit [facility] OB [address] [place] [address] Slava Castro, DO [address] [place] [address] documented as of this encounter Goals [...] documented as of this encounter Care Teams Seismographer Relationship Specialty Start Date End Date Parag Bradley MD [address] [place] [address] PCP - General Family Medicine 08/14/22 Анна Ha NP [address] [place] [address] PCP - [facility] 08/25/23 documented as of this encounter
--- OUTSIDE RECORDS SUMMARY | 2024-09-02 19:22 | XMS_ITS | Encounter Summary ---
Author Organization [facility] Address [address] [place] [address] Care Team Providers Care Security Shift Manager Name Role Phone Parag Bradley MD Primary Care Provider [phone] Анна Ha NP Unavailable [phone] Encounter Details Date Type Department Care [...] How often do you attend chur or gnosticist services? More than 4 times per year [...] Recorded Patient Health Questionnaire-2 Score 0 08/06/2024 [facility] Occupat ional [facility] - Occupational Stress [...] [facility] [address] [place] [address] Анна Ha NP [address] [place] [address] 09/09/2024 11:50 AM EDT Routine [facility] OB [address] [place] [address] Slava Castro, DO [address] [place] [address] 12/15/2024 3:00 PM EDT Office Visit [facility] OB [address] [place] [address] Slava Castro, DO [address] [place], [place] [address] documented as of this encounter Goals Goal Patient Goal Type Associated Problems Recent Progress Patient-Stated? Author Reminders Care Plan OB Reminders No Open Scheduling, Background documented as of this encounter Visit Diagnoses Not on filedocumented in this encounter Additional Health Concerns Active Problems Noted Date Diagnosed Date OB Reminders 02/11/2024 documented as of this encounter Care Teams Security Shift Manager Relationship Specialty Start Date End Date Parag Bradley MD [address] [place] [address] PCP - General Family Medicine 08/14/22 Анна Ha NP [address] [place] [address] [facility] 08/25/23 documented as of this encounter
--- OUTSIDE RECORDS SUMMARY | 2024-09-02 19:22 | XMS_ITS | Clinical Summary ---
Author Organization [facility] Address [address] [place] [address] Care Team Providers Care Retail Sales Professional Name Role Phone Parag Bradley MD Primary Care Provider [phone] Анна Ha NP Unavailable [phone] Allergies Active Allergy Reactions Criticality Noted Date Comments Other 11/25/2022 Powder on gloves Other Reaction(s): rash/itching Medications MV-Min-Fe Fum-FA-DHA ( 1 PO) Take 1 each by mouth Daily Active aspirin 81 MG EC tablet Take 81 mg by mouth Daily Active omeprazole (PriLOSEC) [address] capsuleIndicat ions:Heartburn during in second trimester ([facility]) Take 1 capsule (20 mg) [...] Encounters Date Type Department Care Team Description 09/02/2024 10:40 AM EDT Routine [facility] OB [address] [facility] [place] [address] Orlin Castro, 36 weeks gestation of ([facility]); Third trimester ([facility]); History of gestational diabetes; Antepartum multigravida of advanced maternal age ([facility]) 09/02/2024 Bamboo flowsheet [facility] OB [address] [facility] [place] [address] Orlin Castro DO 09/01/2024 Clinisync Result Encounter NOMS External Department Unsolicited Vidya Jackson PA 09/01/2024 Patient Outreach [facility] [address] [place] [address] Vidya Oliva LPN 08/31/2024 Travel 08/27/2024 Travel 08/25/2024 Clinisync Result Encounter NOMS External Department Unsolicited Provider, Generic External Data 08/23/2024 Refill [facility] [address] [place] [address] Анна Ha NP Primary insomnia 08/22/2024 Refill [facility] [address] [place] [address] Анна Ha NP Primary insomnia 08/18/2024 9:30 AM EDT Routine [facility] OB [address] [place] [address] Ximena Carver NP Third trimester ([facility]); 34 weeks gestation of ([facility]) 08/18/2024 Clinisync Result Encounter NOMS External Department Unsolicited Provider, Generic External Data 08/18/2024 Bamboo flowsheet [facility] OB [address] [facility] [place] [address] Ximena Carver NP 08/17/2024 Travel 08/13/2024 Clinisync Result Encounter NOMS External Department Unsolicited Provider, Generic External Data 08/11/2024 Clinisync Result Encounter NOMS External Department Unsolicited Vidya Jackson PA 08/06/2024 Patient Outreach [facility] [place] [address] [place] [address] Vidya Oliva LPN 08/04/2024 2:20 PM EDT Routine [facility] OB [address] [place] [address] Orlin Castro DO 32 weeks gestation of ([facility]); Third trimester ([facility]) 08/04/2024 Abstract [facility] [address] [place] [address] Анна Ha NP 08/04/2024 Clinisync Result Encounter NOMS External Department Unsolicited Provider, Generic External Data 08/03/2024 Travel 07/28/2024 Clinisync Result Encounter NOMS External Department Unsolicited Provider, Generic External Data 07/26/2024 Abstract [facility] [address] [place] [address] Orlin Castro DO 07/23/2024 Clinisync Result Encounter NOMS External Department Unsolicited Provider, Generic External Data 07/21/2024 2:20 PM EDT Routine [facility] [place] [address] [place] [address] Vidya Jackson PA Third trimester ([facility]); 30 weeks gestation of ([facility]); History of gestational diabetes 07/21/2024 [address]phone [facility] [address] [place] [address] Lizzy Wood MA 07/17/2024 Clinisync Result Encounter NOMS External Department Unsolicited Provider, Generic External Data 07/14/2024 Travel 07/08/[address] [facility] [address] [place] [address] Leesa Coon MA 07/07/2024 Patient Outreach [facility] [address] [place] [address] Vidya Oliva LPN 07/06/2024 1:50 PM EDT Routine [facility] [place] [address] [place] [address] Orlin Castro DO Third trimester ([facility]); 28 weeks gestation of ([facility]); Elevated glucose tolerance test; Diabetes mellitus screening; SGA (small for gestational age) ([facility]) 07/06/2024 1:30 PM EDT Ancillary Procedure [facility] [place] [address] [place] [address] Antepartum multigravida of advanced maternal age ([facility]) 07/05/2024 Clinisync Result Encounter NOMS External Department Unsolicited Provider, Generic External Data 06/16/2024 1:20 PM EDT Routine [facility] OB [address] [facility] [place] [address] Ximena Carver, VÍCTOR Second trimester ([facility]); 25 weeks gestation of ([facility]); Screen for STD (sexually transmitted disease); Diabetes mellitus screening; Antepartum multigravida of advanced maternal age ([facility]) 06/16/2024 External Result Encounter NOMS External Department Unsolicited Gloria OrlinDO 06/16/2024 Bamboo flowsheet [facility] OB [address] [facility] [place] [address] Ximena Carver NP 06/15/2024 Travel 06/08/2024 Patient Outreach [facility] [address] [place] [address] Vidya Oliva LPN 06/03/2024 Travel from Last [...] How often do you attend chur or evangelical services? More than 4 times [...] Recorded Patient Health Questionnaire-2 Score 0 08/06/2024 [facility] [place] of Occupat ional Health - Occupational Stress [...] a care home (including now)? No 05/19/2023 Housing Stability Vital Sign Answer Leonidas e Recorded In the last 12 months, was t here a time when you were not able to pay the mortgage or rent on time? No 08/31/2024 In the past 12 months, how m any times have you moved where you were living? 0 08/31/2024 At any time in the past 12 m [facility], were you homeless or living in a care home (including now)? No 08/31/2024 Estimated Date of [...] Pressure 120/70 09/02/2024 10:47 AM EDT Pulse 97 09/01/2023 10:37 AM EDT Temperature 37.1 C (98.8 F) 09/01/2023 10:37 AM EDT Respiratory Rate 18 09/01/2023 10:3 7 AM EDT Oxygen Saturation 97% 09/01/2023 10: 37 AM EDT Inhaled Oxygen Concentration - - Weight 80.6 kg (177 lb 12.8 oz) 025 10:47 AM EDT Height 154.9 cm (5' 1 ) 09/01/2023 10:3 7 AM EDT Body Mass Index 33.6 09/01/2023 10:37 AM EDT Plan of Treatment Upcoming Encounters Date Type Department Care Team (Late st Contact Info) Description 09/07/2024 1:00 PM EDT Office Visit [facility] [address] [place] [address] Анна Ha, COMPUTERIZED TABLE CUTTER [address] [place] [address] 09/09/2024 11:50 AM EDT Routine [facility] OB [address] [place] [address] Orlin Castro, DO [address] [facility] [address] [place], [place] [address] 12/15/2024 3:00 PM EDT Office Visit [facility] OB [address] [facility] [place] [address] Orlin Castro, DO [address] [facility] [address] [place], [place] [address] Health Maintenance Due Date Last Done Comments Cervical Cancer Screening 12/09/2028 HPV/Cotest 12/09/2028 Pap Smear 12/09/2028 12/10/2023, 11/25/2022 Influenza Vaccine Discontinued 12/08/2017 Goals Goal Patient Goal Type Associated Problems Recent Progress Patient-Stated? Author Reminders Care Plan OB Reminders No Open Scheduling, Background Procedures Procedure Name Priority Date/Time Associated Diagnosis Comments POCT URINALYSIS DIPSTICK Routine 09/02/2024 10:53 AM EDT 36 weeks gestation of ([facility]) Third trimester ([facility]) US OB BPP W NON-STRESS 09/01/2024 3:11 PM EDT US OB BPP W NON-STRESS 08/25/2024 11:33 AM EDT US OB BPP W NON-STRESS 08/18/2024 11:48 AM EDT POCT URINALYSIS DIPSTICK Routine 08/18/2024 10:28 AM EDT Third trimester ([facility]) US OB BPP W NON-STRESS 08/13/2024 5:27 PM EDT US OB BPP W NON-STRESS 08/11/2024 12:20 PM EDT POCT URINALYSIS DIPSTICK Routine 08/04/2024 2:36 PM EDT 32 weeks gestation of ([facility]) Third trimester ([facility]) US OB BPP W NON-STRESS 08/04/2024 11:43 AM EDT US OB GROWTH 07/28/2024 10:48 AM EDT GLUCOSE TOLERANCE 3 HOUR Routine 07/23/2024 9:09 AM EDT GLUCOSE 1 HOUR Routine 07/17/2024 9:48 AM EDT POCT URINALYSIS DIPSTICK Routine 07/06/2024 2:18 PM EDT Third trimester ([facility]) US OB FOLLOW UP TRANSABDOMINAL APPROACH Routine 07/06/2024 2:04 PM EDT Antepartum multigravida of advanced maternal age ([facility]) GLUCOSE 1 HOUR Routine 07/05/2024 10:48 AM EDT ALL CBC WITH AUTO DIFF Routine 10:48 AM EDT RECURRENT VAGINITIS (HTRX) Routine 06/16/2024 2:27 PM EDT POCT URINALYSIS DIPSTICK Routine 06/16/2024 1:50 PM EDT Second trimester ([facility]) PAP SMEAR Routine 12/10/2023 12:00 AM EDT from Last 3 Months or Most Recently Relevant to Health Maintenance Results * (ABNORMAL) POCT urinalysis dipstick manually resulted (09/02/2024 10:53 AM EDT) Only the most recent of5 resultswithin the time period is included. Color, [...] Positive Urine 09/02/2024 10:5 3 AM EDT us Orlin Castro DO POINT OF CARE TEST ENTER/EDIT OR DERABLES Final Result * US OB BPP W NON-STRESS (09/01/2024 3:11 PM EDT) Only the most recent of6 resultswithin the time period is included. Anatomical Region Laterality Modality Other 09/01/2024 3:11 PM EDT Narrative 09/01/2024 3:13 PM EDT The [place] [id number] Ultrasound Report Signed Patient: ROXANNE MARSHALL MR#: [id number] : 1990 Acct:[id number] Age/Sex: 34 / F ADM Date: 09/01/24 Loc: US Attending Dr: Vidya Jackson Ordering Physician: Vidya Jackson Date of Service: 09/01/24 Procedure(s): US OB BPP w non-stress Accession Number(s): [id number] cc: Анна Ha NP; Vidya Jackson The [place] [id number] Patient Name: ROXANNE MARSHALL MRN: [id number] date: 1990 Sex: F Assigned Patient Location: US Current Patient Location: Accession/Order Number: [id number] Exam Date: 09/01/2024 15:10 Report Date: 09/01/2024 15:11 At the request of: VIDYA JACKSON Procedure: US OB BPP w non-stress Ultrasound biophysical profile HISTORY: Gestational diabetes Adequate breathing movement, gross body movement, tone and amniotic fluid volume for total score of 8 out of 8. The amniotic fluid index is 11.0cm within normal limits. The heart rate 155 bpm. US/US OB BPP w non-stress IMPRESSION: Adequate ultrasound biophysical profile Impression dictated by: Emilio Perez M.D. 09/01/2024 3:11 PM Dictation Location: [place] [address] Electronically authenticated by: [id number] Y Date: 09/01/2024 15:11 Dictated By: Emilio Perez D.O. Signed By: 09/01/24 1513 DD/ 1511 TD/TT: Health Lead: Procedure Note Radiology, Radiologist, - 09/01/2024 The [place] [id number] Ultrasound Report Signed Patient: ROXANNE MARSHALL DMR#: [id number] : 1990Acct:[id number] Age/Sex: 34 / FADM Date: 09/01/24 Loc: US Attending Dr: Vidya Jackson Ordering Physician: Vidya Jackson Date of Service: 09/01/24 Procedure(s): US OB BPP w non-stress Accession Number(s): [id number] cc: Анна Ha NP; Vidya Jackson [place] [address] Patient Name: ROXANNE MARSHALL MRN: [id number] date: 1990 Sex: F Assigned Patient Location: US Current Patient Location: Accession/Order Number: [id number] Exam Date: 09/01/2024 15:10 Report Date: 09/01/2024 15:11 At the request of: VIDYA JACKSON Procedure: US OB BPP w non-stress Ultrasound biophysical profile HISTORY: Gestational diabetes Adequate breathing movement, gross body movement, tone and amniotic fluid volume for total score of 8 out of 8. The amniotic fluidindex is 11.0cm within normal limits. The heart rate 155 bpm. US/US OB BPP w non-stress IMPRESSION: Adequate ultrasound biophysical profile Impression dictated by: Emilio Perez M.D. 09/01/2024 3:11 PM Dictation Location: [place] [address] Electronically authenticated by: [id number] Y Date: 5:11 Dictated By: Emilio Perez D.O. Signed By:09/01/24 1513 DD/ 1511 TD/TT: Health Lead: us Vidya DESAI [facility] Final Result * US OB GROWTH (07/28/2024 10:48 AM EDT) Anatomical Region Laterality Modality Other 07/28/2024 10:4 8 AM EDT Narrative 07/28/2024 10:51 AM EDT The [address] [address] Ultrasound Report Signed Patient: ROXANNE MARSHALL MR#: [id number] : 1990 Acct:[id number] Age/Sex: 33 / F ADM Date: 07/28/24 Loc: US Attending Dr: Orlin Castro D.O. Ordering Physician: Orlin Castro D.O. Date of Service: 07/28/24 Procedure(s): US OB growth Accession Number(s): [id number] cc: Анна Ha COMPUTERIZED TABLE CUTTER; Orlin Castro D.O. The [place] [address] Patient Name: ROXANNE MARSHALL MRN: [id number] date: 1990 Sex: F Assigned Patient Location: Current Patient Location: US Accession/Order Number: [id number] Exam Date: 07/28/2024 10:44 Report Date: 07/28/2024 [...] Auguste M.D. 07/28/2024 10:48 AM Dictation Location: [place] [address] Electronically authenticated by: [id number] Y Date: 07/28/2024 10:48 Dictated By: Isatu Auguste M.D. Signed By: 07/28/24 1051 DD/ 1048 TD/TT: Health Lead: Procedure Note Radiology, Radiologist, - 07/28/2024 [place] [address] Ultrasound Report Signed Patient: ROXANNE MARSHALL DMR#: [id number] : 1990Acct:[id number] Age/Sex: 33 / FADM Date: 07/28/24 Loc: US Attending Dr: Orlin Castro D.O. Ordering Physician: Orlin Castro D.O. Date of Service: 07/28/24 Procedure(s): US OB growth Accession Number(s): [id number] cc: Анна Ha COMPUTERIZED TABLE CUTTER; Orlni Castro D.O. The [place] [id number] Patient Name: ROXANNE MARSHALL MRN: [id number] date: 1990 Sex: F Assigned Patient Location: US Current Patient Location: US Accession/Order Number: [id number] Exam Date: 07/28/2024 10:44 Report Date: 07/28/2024 [...] Auguste M.D. 07/28/2024 10:48 AM Dictation Location: [place] [address] Electronically authenticated by: [id number] Y Date: 0:48 Dictated By: Isatu Auguste M.D. Signed By:07/28/24 1051 DD/ 1048 TD/TT: Health Lead: Generic External Data Provider [facility] Final [...] DO LAB BLOOD ORDERABLES Final Resul t [facility] * (ABNORMAL) GLUCOSE 1 HOUR (07/17/2024 9:48 [...] II, MD, PHD at 07-Jul-2024 10:00:26 AM [facility] Procedure Note Tabitha Campbell MD - [...] signed by TABITHA CAMPBELL II, MD, PHD [id number] 10:00:26 AM [facility] us Orlin Gloria DO IMG OB [...] us Ximena Carver NP [facility] Final Result [facility] * RECURRENT VAGINITIS (HTRX) (06/16/2024 2:27 PM EDT) ATOPOBIUM VAGINAE 0.000 19.961 - 24.689 ppm 06/17/2024 8:02 AM EDT [facility] ATOPOBIUM VAGINAE Not Detected 19.961 - 24.689 ppm 06/17/2024 8:02 AM EDT [facility] BVAB 2,3 (BACTERIAL VAGINOSIS ASSOCIATED BACTERIA 2, 3); MOBILUNCUS SPP 0.000 19.961 - 24.689 ppm 06/17/2024 8:02 AM EDT [facility] BVAB 2,3 (BACTERIAL VAGINOSIS ASSOCIATED BACTERIA 2, 3); MOBILUNCUS SPP Not Detected 19.961 - 24.689 ppm 06/17/2024 8:02 AM EDT [facility] RANJANA ALBICANS, PARAPSILOSIS, TROPICALIS 0.000 19.961 - 30.770 ppm 06/17/2024 8:02 AM EDT [facility] RANJANA ALBICANS, PARAPSILOSIS, TROPICALIS Not Detected 19.961 - 30.770 ppm 06/17/2024 8:02 AM EDT [facility] RANJANA GLABRATA 0.000 23.000 - 32.138 ppm 06/17/2024 8:02 AM EDT [facility] RANJANA GLABRATA Not Detected 23.000 - 32.138 ppm 06/17/2024 8:02 AM EDT [facility] RANJANA KRUSEI 0.000 23.000 - 32.271 ppm 06/17/2024 8:02 AM EDT [facility] RANJANA KRUSEI Not Detected 23.000 - 32.271 ppm 06/17/2024 8:02 AM EDT [facility] CHLAMYDIA TRACHOMATIS 0.000 23.000 - 31.467 ppm 06/17/2024 8:02 AM EDT [facility] CHLAMYDIA TRACHOMATIS Not Detected 23.000 - 31.467 ppm 06/17/2024 8:02 AM EDT [facility] GARDNERELLA VAGINALIS 0.000 19.961 - 24.689 ppm 06/17/2024 8:02 AM EDT [facility] GARDNERELLA VAGINALIS Not Detected 19.961 - 24.689 ppm 06/17/2024 8:02 AM EDT [facility] MEGASPHAERA (TYPES 1, 2) 0.000 19.961 - 24.689 ppm 06/17/2024 8:02 AM EDT [facility] MEGASPHAERA (TYPES 1, 2) Not Detected 19.961 - 24.689 ppm 06/17/2024 8:02 AM EDT [facility] NEISSERIA GONORRHOEAE 0.000 23.000 - 32.117 ppm 06/17/2024 8:03 AM EDT [facility] NEISSERIA GONORRHOEAE Not Detected 23.000 - 32.117 ppm 06/17/2024 8:03 AM EDT [facility] TRICHOMONAS VAGINALIS 0.000 23.000 - 32.119 ppm 06/17/2024 8:02 AM EDT [facility] TRICHOMONAS VAGINALIS Not Detected 23.000 - 32.119 ppm 06/17/2024 8:02 AM EDT [facility] MYCOPLASMA GENITALIUM 0.000 19.961 - 24.689 ppm 06/17/2024 8:02 AM EDT [facility] MYCOPLASMA GENITALIUM Not Detected 19.961 - 24.689 ppm 06/17/2024 8:02 AM EDT [facility] Tissue 06/16/2024 2:27 PM EDT 06/17/2024 1:54 AM EDT Orlin Gloria DO LAB BLOOD ORDERABLES Final [facility]ul t [facility] [address] [facility] [place] [address] * Pap Smear (12/10/2023 12:00 AM EDT) Swab Cervical swab / Unknown us Orlin Gloria DO LAB CYTOLOGY ORDERABLES Final Re sult EXTERNAL LAB from Last 3 Months or Most Recently Relevant to Health Maintenance Additional Health Concerns Active Problems Noted Date Diagnosed Date OB Reminders 02/11/2024 Insurance [employer] Care Teams Retail Sales Professional Relationship Specialty Start Date End Date Parag Bradley MD [address] [place] [address] PCP - General Family Medicine 08/14/22 Анна Ha NP [address] [place] [address] PCP - [facility] 08/25/23
--- OUTSIDE RECORDS SUMMARY | 2024-09-02 19:22 | XMS_ITS | Encounter Summary ---
Author Organization [facility] Address [address] [place] [address] Care Team Providers Care Sales Teacher Name Role Phone Parag Bradley MD Primary Care Provider [phone] Анна Ha NP Unavailable [phone] Encounter Details Date Type Department Care Team (Late Contact Info) Description 03/04/2023 Abstract [facility] [address] [place] [address] Анна Ha NP [address] [place] [address] Social History Tobacco Use Types Packs/Day Years [...] Upcoming Encounters Date Type Department Care Team ([facility] Contact Info) Description 09/07/2024 1:00 PM EDT Office Visit [facility] [address] [place] [address] Анна Ha NP [address] [place] [address] 09/09/2024 11:50 AM EDT Routine [facility] B[facility] OB [address] [place] [address] Slava Castro, DO [address] [facility] [address] [place], [place] [address] 12/15/2024 3:00 PM EDT Office Visit [facility] OB [address] [address] Slava Castro, DO [address] [facility] [place] [address] documented as of this encounter Visit Diagnoses Not on filedocumented in this encounter Care Teams Sales Teacher Relationship Specialty Start Date End Date Parag Bradley MD [address] [place] [address] PCP - General Family Medicine 08/14/22 Анна Ha NP [address] [place] [address] PCP - [facility] 08/25/23 documented as of this encounter
--- OUTSIDE RECORDS SUMMARY | 2024-09-02 19:22 | XMS_ITS | Encounter Summary ---
Author Organization [facility] Healthcare Address [address] [place] [address] Care Team Providers Care Document Advisor Name Role Phone Parag Bradley MD Primary Care Provider [phone] Анна Ha NP Unavailable [phone] Encounter Details Date Type Department Care Team (Late st Contact Info) Description 09/01/2024 Patient Outreach [facility] [address] [place] [address] Vidya Oliva, SATELLITE INSTALLATION TECHNICIAN [address] [place], [place] [address] Social History Tobacco Use Types Packs/Day Years [...] week 08/31/2024 How often do you attend [facility] or pentecostalism services? More than 4 times per year 08/31/2024 Do you belong to any clubs o r organizations such as protestant groups, unions, fraternal or athletic groups, or [...] Patient Health Questionnaire-2 Score 0 08/06/2024 [facility] of Occupat ionpa Health - Occupational Stress Questionnaire Answer Date [...] money to buy more. Never true 09/01/19 Within the past 12 months, t he [...] in a usp (including now)? No 05/19/2023 Housing Stability Vital Sign Answer Leonidas e Recorded In the last 12 months, was t here a time when you were not able to pay the mortgage or rent on time? No 08/31/2024 In the past 12 months, how m any times have you moved where you were living? 0 08/31/2024 At any time in the past 12 m [facility], were you homeless or living in a usp (including now)? No 08/31/2024 Estimated Date of Delivery Comme nts Yes 09/24/2024 Based on Ultraso und, FHR- 152 Sex and Gender Information Value Date Recorded Sex Assigned at Not on file Legal Sex Female 7:11 PM EDT Gender Identity Female 05/08/2022 7:11 PM EDT Sexual Orientation Not on file documented as of this encounter Progress Notes * Vidya Oliva LPN - 09/01/2024 1:34 PM EDT Monthly Outreach. Call to pt. Pt reports she is unable to talk as she is at her sons activity. She reports she has OB OV tomorrow 09/02/24. Pt voices no concerns or needs today. documented in this encounter Plan of Treatment Upcoming Encounters Date Type Department Care Team (Late st Contact Info) Description 09/07/2024 1:00 PM EDT Office Visit [facility] [address] [place] [address] Анна Ha, VÍCTOR [address] [place] [address] 09/09/2024 11:50 AM EDT Routine [facility] BCP OB [address] [place] [address] Slava Castro, DO [address] [facility] [address] [place], [place] [address] 12/15/2024 3:00 PM EDT Office Visit [facility] B[facility] OB [address] [place] [address] Slava Castro, DO [address] [facility] [address] [place], [place] [address] documented as of this encounter Goals Goal Patient Goal Type Associated Problems Recent Progress Patient-Stated? Author Reminders Care Plan OB Reminders No Open Scheduling, Background documented as of this encounter Visit Diagnoses Not on filedocumented in this encounter Additional Health Concerns Active Problems Noted Date Diagnosed Date OB Reminders 02/11/2024 documented as of this encounter Care Teams Document Advisor Relationship Specialty Start Date End Date Parag Bradley MD [address] [place] [address] PCP - General Family Medicine 08/14/22 Анна Ha, VÍCTOR [address] [place] [address] PCP - [facility] 08/25/23 documented as of this encounter
--- OUTSIDE RECORDS SUMMARY | 2024-09-02 19:22 | XMS_ITS | Encounter Summary ---
Author Organization [facility] Address [address] [place] [address] Care Team Providers Care Sliver Lap Machine Tender Name Role Phone Parag Bradley MD Primary Care Provider [phone] Анна Ha NP Unavailable [phone] Encounter Details Date Type Department Care Team (Late st Contact Info) Description 02/11/2024 Abstract [facility] OB [address] [place] [address] Slava Castro, DO [address] [place], [facility]11 Social History Tobacco Use Types Packs/Day Years [...] often do you attend chur ch or muslim services? More than 4 times per year [...] Recorded Patient Health Questionnaire-2 Score 1 09/01/2023 [facility] Occupat ional [facility] - Occupational Stress Questionnaire Answer Date [...] Office Visit [facility] [address] [place] [address] Анна Ha NP [address] [place] [address] 09/09/2024 11:50 AM EDT Routine [facility] OB [address] [place] [address] Slava Castro, DO [address] [place], [place] [address] 12/15/2024 3:00 PM EDT Office Visit [facility] OB [address] [place] [address] Slava Castro, DO [address] [place] [address] documented as of this encounter Goals Goal Patient Goal Type Associated Problems Recent Progress Patient-Stated? Author Reminders Care Plan OB Reminders No Open Scheduling, Background documented as of this encounter Visit Diagnoses Not on filedocumented in this encounter Additional Health Concerns Active Problems Noted Date Diagnosed Date OB Reminders 02/11/2024 documented as of this encounter Care Teams Sliver Lap Machine Tender Relationship Specialty Start Date End Date Parag Bradley MD [address] [place] [address] PCP - General Family Medicine 08/14/22 Анна Ha NP [address] [place] [address] PCP - [facility] 08/25/23 documented as of this encounter
--- OUTSIDE RECORDS SUMMARY | 2024-09-02 19:22 | XMS_ITS | Encounter Summary ---
Author Organization [facility] Address [address] [place] [address] Care Team Providers Care Sports Medicine Coordinator Name Role Phone Parag Bradley MD Primary Care Provider [phone] Анна Ha NP Unavailable [phone] Encounter Details Date Type Department Care Team (Late st Contact Info) Description 03/04/2024 Abstract [facility] OB [address] [place] [address] Slava Castro, DO [address] [place], [facility]11 Social History Tobacco Use Types Packs/Day [...] Recorded Patient Health Questionnaire-2 Score 1 09/01/2023 [facility] of Occupat ional [facility] - Occupational Stress Questionnaire Answer Date [...] Office Visit [facility] [address] [place] [address] Анна Ha NP [address] [place] [address] 09/09/2024 11:50 AM EDT Routine [facility] OB [address] [place] [address] Slava Castro, DO [address] [place], [place] [address] 12/15/2024 3:00 PM EDT Office Visit [facility] OB [address] [place] [address] Slava Castro, DO [address] [place] [address] documented as of this encounter Goals Goal Patient Goal Type Associated Problems Recent Progress Patient-Stated? Author Reminders Care Plan OB Reminders No Open Scheduling, Background documented as of this encounter Visit Diagnoses Not on filedocumented in this encounter Additional Health Concerns Active Problems Noted Date Diagnosed Date OB Reminders 02/11/2024 documented as of this encounter Care Teams Sports Medicine Coordinator Relationship Specialty Start Date End Date Parag Bradley MD [address] [place] [address] PCP - General Family Medicine 08/14/22 Анна Ha NP [address] [place] [address] PCP - [facility] 08/25/23 documented as of this encounter
--- OUTSIDE RECORDS SUMMARY | 2024-09-02 19:22 | XMS_ITS ---
Author Organization [facility] Address [address] [place] [address] Care Team Providers Care Mass Spectrometry Specialist Name Role Phone Parag Bradley MD Primary Care Provider [phone] Анна Ha NP Unavailable [phone] [facility] ([facility]) Status:Enrolled (Active) Start date:03/09/2024 Enrollment date:03/09/2024 Enrollment reason:Identified by Health Plan Case Team Name Relationship Phone Vidya Oliva LPN(Responsible Staff) Licensed [facility] Nurse [phone] Continued Care and Services Coordination
--- OUTSIDE RECORDS SUMMARY | 2024-09-02 19:22 | XMS_ITS | Encounter Summary ---
Author Organization [facility] Address [address] [place] [address] Care Team Providers Care Pottery Striper Name Role Phone Parag Bradley MD Primary Care Provider [phone] Анна Ha DIRECTOR DIGITAL Unavailable [phone] Reason for Visit * Reason Onset Date Comments Med Refill 08/22/2024 Encounter Details Date Type Department Care Team (Late st Contact Info) Description 08/22/2024 Refill [facility] [address] [place] [address] Анна Ha, DIRECTOR DIGITAL [address] [place] [address] Primary insomnia Social History Tobacco [...] How often do you attend chur or jain services? More than 4 times [...] Recorded Patient Health Questionnaire-2 Score 0 08/06/2024 [facility] - Occupational Stress Questionnaire Answer Date [...] Department Care Team (Late Contact Info) Description 09/07/2024 1:00 PM EDT Office Visit [facility] [address] [place] [address] Анна Ha, VÍCTOR [address] [place] [address] 09/09/2024 11:50 AM EDT Routine [facility] OB [address] [place] [address] Slava Castro, [address] [place], [place] [address] 12/15/2024 3:00 PM EDT Office Visit [facility] OB [address] [place] [address] Slava Castro DO [address] [place] [address] documented as of this encounter Goals [...] documented as of this encounter Care Teams Pottery Striper Relationship Specialty Start Date End Date Parag Bradley MD [address] [place] [address] PCP - General Family Medicine 08/14/22 Анна Ha NP [address] [place] [address] PCP - [facility] 08/25/23 documented as of this encounter
--- OUTSIDE RECORDS SUMMARY | 2024-09-02 19:22 | XMS_ITS | Patient Health Record ---
Author Organization [facility] Address [address] [place] [address] Care Team Providers Care Property Site Manager Name Role Phone Naida Valera Primary Care Provider Reason For Referral No Information Medications Medication SIG (Take, Route, Frequency, Duration) Notes Start Date End Date Status Zoloft Unknown TRAZODONE Unknown Acetaminophen Extra Strength 500 MG 1 tablet as needed Orally every 6 hrs 01/02/2024 Active Encounters Encounter Location Date Provider Diagnosis [place] [address] [place] [address] 12/25/2023 Naida Valera Cracked tooth K03 .81 [facility] [address] [place] [address] 12/29/2023 Naida Valera Encounter for den mercy examination and cleaning with abnormal findings Z01.21 [facility] [address] [place] [address] 01/02/2024 Naida Valera Encounter for den mercy [...] ruff, 11/12/2024 10:30:00 AM, [address] [place], [address], Insurance Providers Payer Name Payer Address Payer Phone Subscriber Number Group Number Insured Name Patient Relationship to Insured Coverage Start Date Coverage End Date DENTAL [employer] DHAR [address] [address] [place] [phone] [id number] ROXANNE ROGERS Self - patient is the insured 4 Secondary [employer] [place] [employer] [address] [address] [place] [address] [id number] ROXANNE ROGERS Self - patient is the insured 3 Dental W[employer] [facility] [place] [address] [place] [address] [id number] ROXANNE ROGERS Self - patient is the insured 3
--- OUTSIDE RECORDS SUMMARY | 2024-09-02 19:22 | XMS_ITS | Encounter Summary ---
Author Organization [facility] Address [address] [place] [address] Care Team Providers Care Trustee Of Estate Name Role Phone Parag Bradley MD Primary Care Provider Анна Ha NP Unavailable [phone] Encounter Details Date Type Department Care Team (Late st Contact Info) Description 09/02/2024 Bamboo flowsheet [facility] OB [address] [place] [address] Slava Castro, DO [address] [place], [place] [address] Social History Tobacco Use Types Packs/Day Years [...] How often do you attend chur or amish services? More than 4 times [...] Recorded Patient Health Questionnaire-2 Score 0 08/06/2024 [facility] Occupat ional Health - [...] a group home (including now)? No 05/19/2023 Housing Stability [...] any time in the past 12 m [facility], were you homeless or living in a group home (including now)? No 08/31/2024 Estimated Date [...] 1:00 PM EDT Office Visit [facility] [address] [place] [address] Анна Ha NP [address] [place] [address] 09/09/2024 11:50 AM EDT Routine [facility] OB [address] [place] [address] [place] [address] Slava Castro, DO [address] [facility] [place] [address] 12/15/2024 3:00 PM EDT Office Visit [facility] OB [address] [place] [address] Slava Castro, DO [address] [place], [place] [address] documented as of this encounter Goals Goal Patient Goal Type Associated Problems Recent Progress Patient-Stated? Author Reminders Care Plan OB Reminders No Open Scheduling, Background documented as of this encounter Visit Diagnoses Not on filedocumented in this encounter Additional Health Concerns Active Problems Noted Date Diagnosed Date OB Reminders 02/11/2024 documented as of this encounter Care Teams Trustee Of Estate Relationship Specialty Start Date End Date Parag Bradley MD [address] [place] [address] PCP - General Family Medicine 08/14/22 Анна Ha NP [address] [place] [address] PCP - [facility] 08/25/23 documented as of this encounter
--- OUTSIDE RECORDS SUMMARY | 2024-09-02 19:22 | XMS_ITS | Encounter Summary ---
Author Organization [facility] Address [address] [place] [address] Care Team Providers Care Western Felt Hat Blocker Name Role Phone Parag Bradley MD Primary Care Provider [phone] Анна Ha NP Unavailable [phone] Encounter Details Date Type Department Care Team (Late st Contact Info) Description 06/16/2023 Orders Only [facility] [address] [place] [address] Slava Castro, DO [address] [facility] [place] [address] [place] [address] Social History Tobacco Use Types Packs/Day Years [...] Recorded Patient Health Questionnaire-2 Score 0 05/26/2023 [facility] - Occupational Stress Questionnaire Answer [...] [facility] [address] [place] [address] Анна Ha NP [address] [place] [address] 09/09/2024 11:50 AM EDT Routine [facility] OB [address] [place] [address] Slava Castro DO [address] [place] [address] [place], [place] [address] 12/15/2024 3:00 PM EDT Office Visit [facility] OB [address] [place] [address] Slava Castro DO [address] [place] [address] [place], [place] [address] documented as of this encounter Procedures Procedure [...] on filedocumented in this encounter Care Teams Western Felt Hat Blocker Relationship Specialty Start Date End Date Parag Bradley MD [address] [place] [address] PCP - General Family Medicine 08/14/22 Анна Ha NP [address] [place] [address] [facility] 08/25/23 documented as of this encounter
--- OUTSIDE RECORDS SUMMARY | 2024-09-02 19:22 | XMS_ITS | Encounter Summary ---
Author Organization [facility] Address [address] [place] [address] Care Team Providers Care Swinging Cut Off Saw Operator Name Role Phone Parag Bradley MD Primary Care Provider [phone] Анна Ha NP Unavailable Encounter Details Date [...] often do you attend chur ch or baptism services? More than 4 times per year 05/19/2023 Do you belong to any clubs o r organizations such as scientology groups, unions, fraternal or athletic groups, or [...] Recorded Patient Health Questionnaire-2 Score 0 08/06/2024 [facility] of Occupat ional [facility] - Occupational Stress Questionnaire Answer Date Recorded [...] [facility] FM [address] [place] [address] Анна Ha, VÍCTOR [address] [place] [address] 09/09/2024 11:50 AM EDT Routine [facility] OB [address] [place] [address] Slava Castro, DO [address] [place], [place] [address] 12/15/2024 3:00 PM EDT Office Visit [facility] OB [address] [place] [address] Slava Catsro, DO [address] [place] [address] documented as of this [...] EDT Narrative 08/25/2024 11:35 AM EDT The [place] [address] Ultrasound Report Signed Patient: ROXANNE MARSHALL MR#: [id number] : 1990 Acct:[id number] Age/Sex: 33 / F ADM Date: 08/25/24 Loc: [facility] 253-[address]: Vidya Jackson Ordering Physician: Vidya Jackson Date of Service: 08/25/24 Procedure(s): US OB BPP w non-stress Accession Number(s): [id number] cc: Анна Ha NP; Vidya Jackson The [place] [address] Patient Name: ROXANNE MARSHALL MRN: [id number] date: 1990 Sex: F Assigned Patient Location: [facility] Current Patient Location: [facility] Accession/Order Number: [id number] Exam Date: 08/25/2024 11:31 Report Date: 08/25/2024 [...] Auguste M.D. 08/25/2024 11:33 AM Dictation Location: [place] [address] Electronically authenticated by: [id number] Y Date: 08/25/2024 11:33 Dictated By: Isatu Auguste M.D. Signed By: 08/25/24 1135 DD/ 1133 TD/TT: Dinkey Skinner: Procedure Note Radiology, Radiologist, - 08/25/2024 [place] [address] Ultrasound Report Signed Patient: ROXANNE MARSHALL DMR#: [id number] : 1990Acct:[id number] Age/Sex: 33 / FADM Date: 08/25/24 Loc: [facility] 253-[address]: Vidya Jackson Ordering Physician: Vidya Jackson Date of Service: 08/25/24 Procedure(s): US OB BPP w non-stress Accession Number(s): [id number] cc: Анна Ha NP; Vidya Jackson The [place] [address] Patient Name: ROXANNE MARSHALL MRN: [id number] date: 1990 Sex: F Assigned Patient Location: [facility] Current Patient Location: [facility] Accession/Order Number: [id number] Exam Date: 08/25/2024 11:31 Report Date: 08/25/2024 [...] Auguste M.D. 08/25/2024 11:33 AM Dictation Location: [place] [address] Electronically authenticated by: [id number] Y Date: 1:33 Dictated By: Isatu Auguste M.D. Signed By:08/25/24 1135 DD/ 1133 TD/TT: Dinkey Skinner: us Generic External Data Provider [facility] Final Result documented in this encounter Visit Diagnoses Not on filedocumented in this encounter Additional Health Concerns Active Problems Noted Date Diagnosed Date OB Reminders 02/11/2024 documented as of this encounter Care Teams Swinging Cut Off Saw Operator Relationship Specialty Start Date End Date Parag Bradley MD [address] [place] [address] PCP - General Family Medicine 08/14/22 Анна Ha NP [address] [place] [address] PCP - [facility] 08/25/23 documented as of this encounter
--- OUTSIDE RECORDS SUMMARY | 2024-09-02 19:22 | XMS_ITS | Clinical Summary ---
Author Organization [facility] Address [address] [place] [address] Care Team Providers Care Detective Bureau Chief Name Role Phone Unavailable Primary Care Provider [...]
--- OUTSIDE RECORDS SUMMARY | 2024-09-02 19:22 | XMS_ITS | Encounter Summary ---
Author Organization [facility] Address [address] [place] [address] Care Team Providers Care Piledriver Carpenter Name Role Phone Parag Bradley MD Primary Care Provider Анна Ha NP Unavailable [phone] Encounter Details Date Type Department Care Team (Late st Contact Info) Description 07/26/2024 Abstract [facility] OB [address] [place] [address] Slava Castro, DO [address] [place], [facility] Social History Tobacco Use Types Packs/Day Years [...] often do you attend chur ch or caodaism services? More than 4 times per year [...] Recorded Patient Health Questionnaire-2 Score 0 06/08/2024 [facility] of Occupat ional [facility] - Occupational Stress Questionnaire Answer Date [...] Office Visit [facility] [address] [place] [address] Анна Ha NP [address] [place] [address] 09/09/2024 11:50 AM EDT Routine [facility] OB [address] [place] [address] Slava Castro, DO [address] [place], [place] [address] 12/15/2024 3:00 PM EDT Office Visit [facility] OB [address] [place] [address] Slava Castro, DO [address] [place] [address] documented as of this encounter Goals Goal Patient Goal Type Associated Problems Recent Progress Patient-Stated? Author Reminders Care Plan OB Reminders No Open Scheduling, Background documented as of this encounter Visit Diagnoses Not on filedocumented in this encounter Additional Health Concerns Active Problems Noted Date Diagnosed Date OB Reminders 02/11/2024 documented as of this encounter Care Teams Piledriver Carpenter Relationship Specialty Start Date End Date Parag Bradley MD [address] [place] [address] PCP - General Family Medicine 08/14/22 Анна Ha NP [address] [place] [address] PCP - [facility] 08/25/23 documented as of this encounter
--- OUTSIDE RECORDS SUMMARY | 2024-09-02 19:22 | XMS_ITS | Encounter Summary ---
Author Organization [facility] Address [address] [place] [address] Care Team Providers Care Automatic Engraver Name Role Phone Parag Bradley MD Primary Care Provider [phone] Анна Ha NP Unavailable [phone] Encounter Details Date Type Department Care [...] often do you attend chur ch or episcopal services? More than 4 times per year [...] Recorded Patient Health Questionnaire-2 Score 0 05/26/2023 [facility] of Occupat ional [facility] - Occupational Stress Questionnaire Answer [...] [facility] [address] [place] [address] Анна Ha, STREET CLEANER [address] [place] [address] 09/09/2024 11:50 AM EDT Routine [facility] OB [address] [address] Orlin Castro, [address] [place], [place] [address] 12/15/2024 3:00 PM EDT Office Visit [facility] OB [address] [facility] [place] [address] Orlin Castro, [address] [place], [place] [address] documented as of this encounter Procedures Procedure Name Priority Date/Time Associated Diagnosis Comments US OB TRANSVAGINAL 06/13/2023 11 :13 AM EDT [facility] PREG QUANT HCG Routine 06/13/2023 10 :49 AM EDT documented in this encounter Results * US OB TRANSVAGINAL (06/13/2023 11:13 AM EDT) Anatomical Region Laterality Modality Other 06/13/2023 11:1 3 AM EDT Narrative 06/13/2023 11:16 [place] [address] Ultrasound Report Signed Patient: ROXANNE MARSHALL MR#: [id number] : 1990 Acct:[id number] Age/Sex: 32 / F ADM Date: 06/13/23 Loc: [facility] Attending Dr: Orlin Castro D.O. Ordering Physician: Orlin Castro D.O. Date of Service: 06/13/23 Procedure(s): US OB transvaginal Accession Number(s): [id number] cc: Анна Ha STREET CLEANER; Orlin Castro D.O. [place] [id number] Patient Name: ROXANNE MARSHALL MRN: [id number] date: 1990 Sex: F Assigned Patient [facility] Current Patient [facility]: [facility] Accession/Order Number: [id number] Exam Date: 06/13/2023 09:58 Report Date: 06/13/2023 [...] Signed By: 06/13/23 1116 DD/ 1113 TD/TT: Crib Clerk: Procedure Note Radiology, Radiologist, MD - 06/13/2023 [place] [address] Ultrasound Report Signed Patient: ROXANNE MARSHALL DMR#: [id number] : 1990Acct:[id number] Age/Sex: 32 / FADM Date: 06/13/23 Loc: [facility] Attending Dr: Orlin Castro D.O. Ordering Physician: Orlin Castro D.O. Date of Service: 06/13/23 Procedure(s): US OB transvaginal Accession Number(s): [id number] cc: Анна Ha STREET CLEANER; Orlin Castro D.O. The [place] [address] Patient Name: ROXANNE MARSHALL MRN: [id number] date: 1990 Sex: F Assigned Patient Location: [facility] Current Patient Location: [facility] Accession/Order Number: [id number] Exam Date: 06/13/2023 09:58 Report Date: 06/13/2023 [...] M.D. Signed By:06/13/23 1116 DD/ 1113 TD/TT: Crib Clerk: us Generic External Data Provider [facility] [...] [facility] F inal Result Performing Organization Address City/State/[facility] Co de Phone Number [facility] documented in this encounter Visit Diagnoses Not on filedocumented in this encounter Care Teams Automatic Engraver Relationship Specialty Start Date End Date Parag Bradley MD [address] [place] [address] PCP - General Family Medicine 08/14/22 Анна Ha NP [address] [place] [address] PCP - [facility] 08/25/23 documented as of this encounter
--- OUTSIDE RECORDS SUMMARY | 2024-09-02 19:22 | XMS_ITS | Encounter Summary ---
Author Organization [facility] Address [address] [place] [address] Care Team Providers Care Sales Estimator Name Role Phone Parag Bradley MD Primary Care Provider [phone] Анна Ha NP Unavailable [phone] Encounter Details Date Type Department Care Team (Late st Contact Info) Description 09/01/2024 Clinisync Result Encounter [facility] Department Unsolicited Vidya Jackson PA [address] [place] [address] [place] [address] Social History Tobacco Use Types Packs/Day Years [...] Recorded Patient Health Questionnaire-2 Score 0 08/06/2024 [facility] Answer [...] the money to buy more. Never true 07/08/20 25 Within the past 12 months, t [...] any time in the past 12 m [facility], were you homeless or living in a [...] Visit [facility] [address] [place] [address] Анан Ha NP [address] [place] [address] 09/09/2024 11:50 AM EDT Routine [facility] [address] [place] [address] [place] [id number] Slava Castro, DO [address] [place] [address] 12/15/2024 3:00 PM EDT Office Visit [facility] [address] [place] [address] [place] [phone] Slava Castro, DO [address] [place] [address] documented as of this encounter Goals Goal Patient Goal Type Associated Problems Recent Progress Patient-Stated? Author Reminders Care Plan OB Reminders No Open Scheduling, Background documented as of this encounter Procedures Procedure Name Priority Date/Time Associated Diagnosis Comments US OB BPP W NON-STRESS 09/01/2024 3:11 PM EDT documented in this encounter Results * US OB BPP W NON-STRESS (09/01/2024 3:11 PM EDT) Anatomical Region Laterality Modality Other 09/01/2024 3:11 PM EDT Narrative 09/01/2024 3:13 PM EDT The [address] [address] Ultrasound Report Signed Patient: ROXANNE MARSHALL MR#: [id number] : 1990 Acct:[id number] Age/Sex: 34 / F ADM Date: 09/01/24 Loc: US Attending Dr: Vidya Jackson Ordering Physician: Vidya Jackson Date of Service: 09/01/24 Procedure(s): US OB BPP w non-stress Accession Number(s): [id number] cc: Анна Ha NP; Vidya Jackson The [address] [address] Patient Name: ROXANNE MARSHALL MRN: [facility]:[id number] date: 1990 Sex: F Assigned Patient Location: US Current Patient Location: Accession/Order Number: [id number] Exam Date: 09/01/2024 15:10 Report Date: 09/01/2024 [...] Perez M.D. 09/01/2024 3:11 PM Dictation Location: [place] [address] Electronically authenticated by: [id number] Y Date: 09/01/2024 15:11 Dictated By: Emilio Perez D.O. Signed By: 09/01/24 1513 DD/ 10 TD/TT: Diesel Roller Operator: Procedure Note Radiology, Radiologist, MD - 09/01/2024 [place] [address] Ultrasound Report Signed Patient: ROXANNE MARSHALL DMR#: [id number] : 1990Acct:[id number] Age/Sex: 34 / FADM Date: 09/01/24 Loc: US Attending Dr: Vidya Jackson Ordering Physician: Vidya Jackson Date of Service: 09/01/24 Procedure(s): US OB BPP w non-stress Accession Number(s): [id number] cc: Анна Ha NP; Vidya Jackson The [address] [address] Patient Name: ROXANNE MARSHALL MRN: [id number] date: 1990 Sex: F Assigned Patient Location: US Current Patient Location: Accession/Order Number: [id number] Exam Date: 09/01/2024 15:10 Report Date: 09/01/2024 [...] Perez M.D. 09/01/2024 3:11 PM Dictation Location: [facility] Electronically authenticated by: [id number] Y Date: :11 Dictated By: Emilio Perez D.O. Signed By:09/01/24 1513 DD/ TD/TT: Diesel Roller Operator: us Vidya Jackson PA [facility] Final Result documented in this encounter Visit Diagnoses Not on filedocumented in this encounter Additional Health Concerns Active Problems Noted Date Diagnosed Date OB Reminders 02/11/2024 documented as of this encounter Care Teams Sales Estimator Relationship Specialty Start Date End Date Parag Bradley MD [address] [place] [address] PCP - General Family Medicine 08/14/22 Анна Ha NP [address] [place] [address] PCP - [facility] 08/25/23 documented as of this encounter
--- OUTSIDE RECORDS SUMMARY | 2024-09-02 19:40 | XMS_ITS | CCD ---
Author Organization [facility] ion [facility] Care Team Providers Care Button Station Worker Name Role Phone AICHHOLZ, INSURANCE CODER АННА Primary Care Unavailable PAY, DR ILN Admitting Unavailable PAY, DR LIN Attending Unavailable GISELLE RESTREPO Consulting Unavailable GLORIA, DR ORDAZ Admitting Unavailable GLORIA, DR ORDAZ Attending Unavailable AICHHOLZ, INSURANCE CODER АННА Primary Care Unavailable GLORIA, DR ORDAZ Consulting Unavailable AICHHOLZ, INSURANCE CODER АННА Admitting Unavailable AICHHOLZ, INSURANCE CODER АННА Attending Unavailable AICHHOLZ, INSURANCE CODER АННА Primary Care Unavailable AICHHOLZ, INSURANCE CODER АННА Consulting Unavailable AICHHOLZ, INSURANCE CODER АННА Primary Care Unavailable DON, DR BIRD Admitting Unavailable DON, DR BIRD Attending Unavailable GISELLE RESTREPO Consulting Unavailable PHOEBE ALFARO Consulting Unavailable MD Dar Brody Primary Care Provider Slava Castro Attending Provider [phone] Parag Bradley MD Primary Care Provider Aichholange SALES RECRUITMENT SPECIALIST, Анна Unavailable Slava Castro DO Attending Provider Mik Castroy Attending Unavailable Mik Castroy Admitting Unavailable Dar Brody Primary Care Unavailable Slava Castro Attending Unavailable Gloria, Slava Admitting Unavailable VIYDA JACKSON Attending Unavailable VIDYA JACKSON Referring Unavailable [...] 81 mg by mouth Daily Active levonorgestrel 0.212496 mg/hr intrauterine system (2 sources) Progestin, Progestin-containi [...] capsule Indications: Heartburn during in second trimester ([facility]) Take 1 capsule (20 mg) [...] tolerance complicating ; childbirth; or the puerperium (4 sources) History of gestational diabetes mellitus; Translations: [...] 09-01-2023 09-01-2023 Chronic Other aftercare (1 source) care home (current) use of hormonal contraceptives; Translations: [ASSISTED HORMONAL CONTRACEPTIVES] Onset: 02-22-2022 Episodic Other aftercare (1 source) 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; Translations: [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 DRUG THERAPY] Onset: 02-22-2022 Episodic Other bone disease and musculoskeletal deformities (2 sources) Costal chondritis; 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 [Tietze]] 03-05-2019 Episodic Other complications of (4 sources) Multigravida of advanced maternal age; Translations: [Supervision of elderly multigravida, unspecified trimester] 06-16-2024 Episodic Other nutritional; endocrine; and metabolic disorders (1 source) Obesity, unspecified; Translations: [OBESITY UNSPECIFIED] Onset: 08-08-2021 Chronic Other nutritional; endocrine; and metabolic disorders (20 sources) Body mass index 30+ - obesity; Translations: [Obesity, unspecified] Onset: 05-26-2023 05-26-2023 Chronic Other and delivery including normal (18 sources) ; Translations: [Encounter for supervision of [...] [34 weeks gestation of ] 08-18-2024 Episodic Residual codes; unclassified (2 sources) Gestation period, 36 weeks; Translations: [36 weeks gestation of ] 09-02-2024 Episodic Screening and history of mental health and substance abuse codes (1 source) Personal history of nicotine dependence; Translations: [PERSONAL HISTORY OF NICOTINE DEPEND] Onset: 02-22-2022 Episodic Short gestation; low weight; and growth retardation (2 sources) Mhlkt-ukf-aosar baby; Translations: [ small for gestational age, [...] Range Facility Urinalysis macro (dipstick) panel (U)on 09-02-2024 Bilirubin, UA Negative Negative - 4(70) +++ mg/dL [facility] Blood, UA Negative Negative - 50 Richy/mcL [facility] Clarity, UA Clear [facility] Color, UA Yellow [facility] Glucose, UA Negative Negative - 1999(110) ++++ mg/dL [facility] Interpretation and review of laboratory results Abnormal [facility] Ketones, UA Negative Negative - 160(16) ++++ mg/dL [facility] Leukocytes, UA Negative Negative - 500+++ Tano/mcL [facility] Nitrite, UA Negative Negative - Positive [facility] pH, UA 6 5 - 9 [facility] Protein, UA Positive Negative - 1999(20) ++++ mg/dL [facility] Comment on above: 30 Spec Grav, UA 1.02 1 - 1.03 [facility] Urobilinogen, UA 1.0 0.2 - 12 mg/dL [facility] US OB BPP W NON-STRESS on 09-01-2024 [place] [id number] Ultrasound Report Signed Patient: SHREYA MARSHALL MR#: [id number] : 1990 Acct:[id number] Age/Sex: 34 / F ADM Date: 09/01/24 Loc: US Attending Dr: Vidya Jackson Ordering Physician: Vidya Jackson Date of Service: 09/01/24 Procedure(s): US OB BPP w non-stress Accession Number(s): [id number] cc: Анна Ha NP; Vidya Jackson [address] [address] Patient Name: SHREYA MARSHALL MRN: [id number]:[id number] date: 1990 Sex: F Assigned Patient Location: Current Patient Location: Accession/Order Number: [id number] Exam Date: 09/01/2024 15:10 Report Date: 09/01/2024 [...] Perez M.D. 09/01/2024 3:11 PM Dictation Location: [email or web address] Electronically authenticated by: [id number] Y Date: 09/01/2024 15:11 Dictated By: Emilio Perez D.O. Signed By: 09/01/24 1513 DD/ 10 TD/TT: Road Engineer: [facility] Radiology, Radiologist, - 09/01/2024 [place] [address] Ultrasound Report Signed Patient: SHREYA MARSHALL MR#: [id number] : 1990 Acct:[id number] Age/Sex: 34 / F ADM Date: 09/01/24 Loc: US Attending Dr: Vidya Jackson Ordering Physician: Vidya Jackson Date of Service: 09/01/24 Procedure(s): US OB BPP w non-stress Accession Number(s): [id number] cc: Анна Ha SALES RECRUITMENT SPECIALIST; Vidya Jackson The [place] [id number] Patient Name: SHREYA MARSHALL MRN: [facility]:[id number] date: 1990 Sex: F Assigned Patient Location: US Current Patient Location: Accession/Order Number: [id number] Exam Date: 09/01/2024 15:10 Report Date: 09/01/2024 [...] Perez M.D. 09/01/2024 3:11 PM Dictation Location: [place] [address] Electronically authenticated by: [id number] Y Date: 09/01/2024 15:11 Dictated By: Emilio Perez D.O. Signed By: 09/01/241512 DD/ 10 TD/TT: Road Engineer: [facility] [employer] Radiology Study observation (narrative) [facility] US OB BPP W NON-STRESS Ordered By: Radiologist Radiology on 09-01-2024 [facility] [employer] Work Phone: US OB BPP W NON-STRESS on 08-25-2024 [place] [address] Ultrasound Report Signed Patient: SHREYA MARSHALL MR#: [id number] : 1990 Acct:[id number] Age/Sex: 33 / F ADM Date: 08/25/24 Loc: [facility] 253-[address]: Vidya Jackson Ordering Physician: Vidya Jackson Date of Service: 08/25/24 Procedure(s): US OB BPP w non-stress Accession Number(s): [id number] cc: Анна Ha NP; Vidya Jackson [place] [address] Patient Name: SHREYA MARSHALL MRN: [id number] date: 1990 Sex: F Assigned Patient Location: [facility] Current Patient Location: [facility] Accession/Order Number: [id number] Exam Date: 08/25/2024 11:31 Report Date: 08/25/2024 [...] 08/25/2024 11:33 AM Dictation Location: [place] [address] Electronically authenticated by: [id number] Y Date: 08/25/2024 11:33 Dictated By: Isatu Auguste M.D. Signed By: 08/25/24 1135 DD/ 1133 TD/TT: Road Engineer: [facility] Radiology, Radiologist, MD - 08/25/2024 [place] [address] Ultrasound Report Signed Patient: SHREYA MARSHALL MR#: [id number] : 1990 Acct:[id number] Age/Sex: 33 / F ADM Date: 08/25/24 Loc: [facility] 253-[address]: Vidya Jackson Ordering Physician: Vidya Jackson Date of Service: 08/25/24 Procedure(s): US OB BPP w non-stress Accession Number(s): [id number] cc: Анна Ha SALES RECRUITMENT SPECIALIST; Vidya Jackson The [place] [id number] Patient Name: SHREYA MARSHALL MRN: [facility]:[id number] date: 1990 Sex: F Assigned Patient Location: [facility] Current Patient Location: [facility] Accession/Order Number: [id number] Exam Date: 08/25/2024 11:31 Report Date: 08/25/2024 [...] 08/25/2024 11:33 AM Dictation Location: [place] [address] Electronically authenticated by: [id number] Y Date: 08/25/2024 11:33 Dictated By: Isatu Auguste M.D. Signed By: 08/25/24 1135 DD/ 1133 TD/TT: Road Engineer: [facility] Radiology Study observation (narrative) [facility] US OB BPP W NON-STRESS Ordered By: Radiologist Radiology on 08-25-2024 [facility] Work Phone: US OB BPP W NON-STRESS on 08-18-2024 The [place] [id number] Ultrasound Report Signed Patient: SHREYA MARSHALL MR#: [id number] : 1990 Acct:[id number] Age/Sex: 33 / F ADM Date: 08/18/24 Loc: US Attending Dr: Vidya Jackson Ordering Physician: Vidya Jackson Date of Service: 08/18/24 Procedure(s): US OB BPP w non-stress Accession Number(s): [id number] cc: Анна Ha SALES RECRUITMENT SPECIALIST; Vidya Jackson [place] [id number] Patient Name: SHREYA MARSHALL MRN: [facility]:[id number] date: 1990 Sex: F Assigned Patient Location: [facility] Current Patient Location: Accession/Order Number: [id number] Exam Date: 08/18/2024 11:47 Report Date: 08/18/2024 [...] Auguste M.D. 08/18/2024 11:48 AM Dictation Location: [place] [address] Electronically authenticated by: [id number] Y Date: 08/18/2024 11:48 Dictated By: Isatu Auguste M.D. Signed By: 08/18/24 1151 DD/ 1148 TD/TT: Road Engineer: [facility] Radiology, Radiologist, MD - 08/18/2024 [place] [address] Ultrasound Report Signed Patient: SHREYA MARSHALL MR#: [id number] : 1990 Acct:[id number] Age/Sex: 33 / F ADM Date: 08/18/24 Loc: US Attending Dr: Vidya Jackson Ordering Physician: Vidya Jackson Date of Service: 08/18/24 Procedure(s): US OB BPP w non-stress Accession Number(s): [id number] cc: Анна Ha NP; Vidya Jackson [place] [id number] Patient Name: SHREYA MARSHALL MRN: [id number] date: 1990 Sex: F Assigned Patient Location: [facility] Current Patient Location: Accession/Order Number: [id number] Exam Date: 08/18/2024 11:47 Report Date: 08/18/2024 11:48 At the request of: VIDYA JACKSON Procedure: US OB BPP w non-stress BIOPHYSICAL PROFILE: CLINICAL INFORMATION: History of gestational diabetes Z86.32 COMPARISON: 08/13/2024 There is a single live intrauterine gestation in cephalic presentation. The reported gestational age is 34 weeks 5 days. The heart rate zyovmaxn177 beats per minute. FINDINGS: TONE: 1 or [...] Auguste M.D. 08/18/2024 11:48 AM Dictation Location: [place] [address] Electronically authenticated by: [id number] Y Date: 08/18/2024 11:48 Dictated By: Isatu Auguste M.D. Signed By: 08/18/24 1151 DD/ 1148 TD/TT: Road Engineer: [facility] Radiology Study observation (narrative) [facility] US OB BPP W NON-STRESS Ordered By: Radiologist Radiology on 08-18-2024 [facility] Work Phone: US OB BPP W NON-STRESS on 08-13-2024 [place] [address] Ultrasound Report Signed Patient: SHREYA MARSHALL MR#: [id number] : 1990 Acct:[id number] Age/Sex: 33 / F ADM Date: 08/13/24 Loc: US Attending Dr: Slava Castro D.O. Ordering Physician: Slava Castro D.O. Date of Service: 08/13/24 Procedure(s): US OB BPP w non-stress Accession Number(s): [id number] cc: Анна Ha SALES RECRUITMENT SPECIALIST; Slava Castro D.O. [place] [address] Patient Name: SHREYA MARSHALL MRN: [id number]:[id number] date: 1990 Sex: F Assigned Patient Location: [facility] Current Patient Location: Accession/Order Number: [id number] Exam Date: 08/13/2024 17:25 Report Date: 08/13/2024 [...] Camacho M.D. 08/13/2024 5:27 PM Dictation Location: [place] [address] Electronically authenticated by: [id number] Y Date: 08/13/2024 17:27 Dictated By: Nilo Camacho M.D. Signed By: 08/13/241728 DD/ 26 TD/TT: Road Engineer: [facility] Radiology, Radiologist, MD - 08/13/2024 [place] [address] Ultrasound Report Signed Patient: SHREYA MARSHALL MR#: [id number] : 1990 Acct:[id number] Age/Sex: 33 / F ADM Date: 08/13/24 Loc: US Attending Dr: Slava Castro D.O. Ordering Physician: Slava Castro D.O. Date of Service: 08/13/24 Procedure(s): US OB BPP w non-stress Accession Number(s): [id number] cc: Анна Ha NP; Slava Castro D.O. [place] [address] Patient Name: SHREYA MARSHALL MRN: [facility]:[id number] date: 1990 Sex: F Assigned Patient Location: [facility] Current Patient Location: Accession/Order Number: [id number] Exam Date: 08/13/2024 17:25 Report Date: 08/13/2024 [...] Camacho M.D. 08/13/2024 5:27 PM Dictation [facility] Electronically authenticated by: [id number] Y Date: 08/13/2024 17:27 Dictated By: Nilo Camacho M.D. Signed By: 08/13/241728 DD/ 26 TD/TT: Road Engineer: [facility] Radiology Study observation (narrative) [facility] US OB BPP W NON-STRESS Ordered By: Radiologist Radiology on 08-13-2024 [facility] Work Phone: US OB BPP W NON-STRESS on 08-11-2024 [place] [address] Ultrasound Report Signed Patient: SHREYA MARSHALL MR#: [id number] : 1990 Acct:[id number] Age/Sex: 33 / F ADM Date: 08/11/24 Loc: [facility] 254-[address]: Vidya Jackson Ordering Physician: Vidya Jackson Date of Service: 08/11/24 Procedure(s): US OB BPP w non-stress Accession Number(s): [id number] cc: Анна Ha SALES RECRUITMENT SPECIALIST; Vidya Jackson [place] [address] Patient Name: SHREYA MARSHALL MRN: [id number]:[id number] date: 1990 Sex: F Assigned Patient Location: [facility] Current Patient Location: [facility] Accession/Order Number: [id number] Exam Date: 08/11/2024 12:18 Report Date: 08/11/2024 [...] Auguste M.D. 08/11/2024 12:20 PM Dictation Location: [place] [address] Electronically authenticated by: [id number] Y Date: 08/11/2024 12:20 Dictated By: Isatu Auguste M.D. Signed By: 08/11/24 1222 DD/ 1220 TD/TT: Road Engineer: [facility] Radiology, Radiologist, - 08/11/2024 [place] [address] Ultrasound Report Signed Patient: SHREYA MARSHALL MR#: [id number] : 1990 Acct:[id number] Age/Sex: 33 / F ADM Date: 08/11/24 Loc: [facility] 254-[address]: Vidya Jackson Ordering Physician: Vidya Jackson Date of Service: 08/11/24 Procedure(s): US OB BPP w non-stress Accession Number(s): [id number] cc: Анна Ha NP; Vidya Jackson The [place] [address] Patient Name: SHREYA MARSHALL MRN: [facility]:[id number] date: 1990 Sex: F Assigned Patient Location: [facility] Current Patient Location: [facility] Accession/Order Number: [id number] Exam Date: 08/11/2024 12:18 Report Date: 08/11/2024 [...] Auguste M.D. 08/11/2024 12:20 PM Dictation Location: [place] [address] Electronically authenticated by: [id number] Y Date: 08/11/2024 12:20 Dictated By: Isatu Auguste M.D. Signed By: 08/11/24 1222 DD/ 1220 TD/TT: Road Engineer: [facility] Radiology Study observation (narrative) [facility] US OB BPP W NON-STRESS Ordered By: Radiologist Radiology on 08-11-2024 [facility] Work Phone: OB BPP W NON-STRESS on 08-04-2024 [place] [id number] Ultrasound Report Signed Patient: SHREYA MARSHALL MR#: [id number] : 1990 Acct:[id number] Age/Sex: 33 / F ADM Date: 08/04/24 Loc: [facility] 250-[address]: Vidya Jackson Ordering Physician: Vidya Jackson Date of Service: 08/04/24 Procedure(s): US OB BPP w non-stress Accession Number(s): [id number] cc: Анна Ha SALES RECRUITMENT SPECIALIST; Vidya Jackson [address] [address] Patient Name: SHREYA MARSHALL MRN: [id number]:[id number] date: 1990 Sex: F Assigned Patient Location: [facility] Current Patient Location: [facility] Accession/Order Number: [id number] Exam Date: 08/04/2024 11:42 Report Date: 08/04/2024 [...] Auguste M.D. 08/04/2024 11:43 AM Dictation Location: [place] [address] Electronically authenticated by: [id number] Y Date: 08/04/2024 11:43 Dictated By: Isatu Auguste M.D. Signed By: 08/04/24 1146 DD/ 1143 TD/TT: Road Engineer: [facility] Radiology, Radiologist, MD - 08/04/2024 [place] [address] Ultrasound Report Signed Patient: SHREYA MARSHALL MR#: [id number] : 1990 Acct:[id number] Age/Sex: 33 / F ADM Date: 08/04/24 Loc: [facility] 250-[address]: Vidya Jackson Ordering Physician: Vidya Jackson Date of Service: 08/04/24 Procedure(s): US OB BPP w non-stress Accession Number(s): [id number] cc: Анна Ha SALES RECRUITMENT SPECIALIST; Vidya Jackson The [address] [address] Patient Name: SHREYA MARSHALL MRN: [id number]:[id number] date: 1990 Sex: F Assigned Patient Location: [facility] Current Patient Location: [facility] Accession/Order Number: [id number] Exam Date: 08/04/2024 11:42 Report Date: 08/04/2024 [...] Auguste M.D. 08/04/2024 11:43 AM Dictation Location: [place] [address] Electronically authenticated by: [id number] Y Date: 08/04/2024 11:43 Dictated By: Isatu Auguste M.D. Signed By: 08/04/24 1146 DD/ 1143 TD/TT: Road Engineer: [facility] Radiology Study observation (narrative) [facility] OB BPP W NON-STRESS Ordered By: Radiologist Radiology on 08-04-2024 [facility] Work Phone: Urinalysis macro (dipstick) panel (U)on 08-04-2024 Bilirubin, UA Negative Negative - 4(70) +++ mg/dL [facility] Blood, UA Positive Negative - 50 Richy/mcL [facility] Comment on above: trace-intact Clarity, UA Clear [facility] Color, UA Yellow [facility] Glucose, UA Negative Negative - 2000(110) ++++ mg/dL [facility] Interpretation and review of laboratory results Abnormal [facility] Ketones, UA Negative Negative - 160(16) ++++ mg/dL [facility] Leukocytes, UA Negative Negative - 500+++ Tano/mcL [facility] Nitrite, UA Negative Negative - Positive [facility] pH, UA 7 5 - 9 [facility] Protein, UA Negative Negative - 1999(20) ++++ mg/dL [facility] Spec Grav, UA 1.01 1 - 1.03 [facility] Urobilinogen, UA 0.2 0.2 - 12 mg/dL [facility] US OB GROWTHon 07-28-2024 [place] [address] Ultrasound Report Signed Patient: SHREYA MARSHALL MR#: [id number] : 1990 Acct:[id number] Age/Sex: 33 / F ADM Date: 07/28/24 Loc: US Attending Dr: Slava Castro D.O. Ordering Physician: Slava Castro D.O. Date of Service: 07/28/24 Procedure(s): US OB growth Accession Number(s): [id number] cc: Анна Ha NP; Slava Castro D.O. [place] [id number] Patient Name: SHREYA MARSHALL MRN: [id number]:[id number] date: 1990 Sex: F Assigned Patient Location: US Current Patient Location: US Accession/Order Number: [id number] Exam Date: 07/28/2024 10:44 Report Date: 07/28/2024 [...] Auguste M.D. 07/28/2024 10:48 AM Dictation Location: [place] [address] Electronically authenticated by: [id number] Date: 07/28/2024 10:48 Dictated By: Isatu Auguste M.D. Signed By: 07/28/24 1051 DD/ 1048 TD/TT: Road Engineer: [facility] Radiology, Radiologist, MD - 07/28/2024 [place] [address] Ultrasound Report Signed Patient: SHREYA MARSHALL MR#: [id number] : 1990 Acct:[id number] Age/Sex: 33 / F ADM Date: 07/28/24 Loc: US Attending Dr: Slava Castro D.O. Ordering Physician: Slava Castro D.O. Date of Service: 07/28/24 Procedure(s): US OB growth Accession Number(s): [id number] cc: Анна Ha SALES RECRUITMENT SPECIALIST; Slava Castro D.O. [place] [address] Patient Name: SHREYA MASRHALL MRN: [facility]:[id number] date: 1990 Sex: F Assigned Patient Location: US Current Patient Location: US Accession/Order Number: [id number] Exam Date: 07/28/2024 10:44 Report Date: 07/28/2024 [...] Auguste M.D. 07/28/2024 10:48 AM Dictation Location: [place] [address] Electronically authenticated by: [id number] Y Date: 07/28/2024 10:48 Dictated By: Isatu Auguste M.D. Signed By: 07/28/24 1051 DD/ 1048 TD/TT: Road Engineer: [facility] Radiology Study observation (narrative) [facility] US OB GROWTHOrdered By: Tatiana ologaneesh Radiology on 07-28-2024 [facility] Work Phone: GLUCOSE TOLERANCE 3 HOURon 0 07-23-2024 GLUCOSE TOLERANCE 3 HOUR High mg/dL [facility] Comment on above: GLU FAST 97H (<95) C ol: 07/23/24 0909 GLU 1HR 151 (<180) Col: 07/23/24 1013 GLU 2HR 151 (<155) Col: 07/23/24 1113 GLU 3HR 123 (<140) Col: 07/23/24 1213 Interpretation and review of laboratory results Abnormal [facility] US OB FOLLOW UP TRANSABDOMIN AL APPROACHon [...] II, MD, PHD at 07-Jul-2024 10:00:26 AM [facility] Normal Not Available Comment on above: Order Comment: US OB SCAN FOR GROWTH Estimated Date of Delivery: 09/24/24 Gestational Age as of 06/16/2024: 25w5d Urinalysis macro (dipstick) panel (U)on 07-06-2024 Bilirubin, UA Negative Negative - 4(70) +++ mg/dL [facility] Healthcare Blood, UA Negative Negative - 50 Richy/mcL [facility] Clarity, UA Clear [facility] Color, UA Yellow [facility] Glucose, UA Negative Negative - 1999(110) ++++ mg/dL [facility] Interpretation and review of laboratory results Normal [facility] Ketones, UA Negative Negative - 160(16) ++++ mg/dL [facility] Leukocytes, UA Negative Negative - 500+++ Tano/mcL [facility] Nitrite, UA Negative Negative - Positive [facility] pH, UA 7 5 - 9 [facility] Protein, UA Negative Negative - 1999(20) ++++ mg/dL [facility] Spec Grav, UA 1.015 1 - 1.03 [facility] Urobilinogen, UA 0.2 0.2 - 12 mg/dL [facility] ALL CBC WITH AUTO DIFFon BASOPHILS ABSOLUTE AUTO 0 [facility] Basophils/100 WBC (Bld) 0.3 % 0.2 - 2.0 % [facility] Eosinophils/100 WBC (Bld) 0.3 % Low 0.9 - 7.0 % [facility] Erythrocyte distribution width (RBC) [Ratio] 12.9 % 11.0 - 15.0 % [facility] Hematocrit (Bld) [Volume fraction] 35.5 % Low 36.0 - 48.0 % [facility] Hemoglobin (Bld) [Mass/Vol] 11.6 g/dL Low 12.0 - 16.0 g/dL [facility] IMMATURE GRANULOCYTES ABS AUTO 0.03 [facility] Immature granulocytes/100 WBC (Bld) 0.4 % 0.0 - 0.5 % [facility] Interpretation and review of laboratory results Abnormal [facility] LYMPHOCYTES ABSOLUTE AUTO 1.7 [facility] Lymphocytes/100 WBC (Bld) 22.3 % 20.5 - 60.0 % [facility] MCH (RBC) [Entitic mass] 30.7 pg 26.7 - 34.0 pg [facility] MCHC (RBC) [Mass/Vol] 32.7 g/dL 29.9 - 35.2 g/dL [facility] MCV (RBC) [Entitic vol] 93.9 fL 81.0 - 99.0 fL [facility] MONOCYTES ABSOLUTE AUTO 0.4 [facility] Monocytes/100 WBC (Bld) 5.5 % 1.7 - 12.0 % [facility] NEUTROPHILS ABSOLUTE AUTO 5.3 [facility] Neutrophils/100 WBC (Bld) 71.2 % 43.0 - 75.0 % [facility] Platelet mean volume (Bld) [Entitic vol] 9.6 fL 9.5 - 13.5 fL [facility] TBH EO # 0 [facility] TBH PLT 218 [facility] TB RBC 3.78 Low [facility] TBH WBC 7.4 [facility] RECURRENT VAGINITIS (HTRX)on 06-17-2024 ATOPOBIUM VAGINAE 0 [facility] ATOPOBIUM VAGINAE Not detected [facility] BVAB 2,3 (BACTERIAL VAGINOSIS ASSOCIATED BACTERIA 2, 3); MOBILUNCUS SPP 0 [facility] BVAB 2,3 (BACTERIAL VAGINOSIS ASSOCIATED BACTERIA 2, 3); MOBILUNCUS SPP Not detected [facility] RANJANA ALBICANS, PARAPSILOSIS, TROPICALIS 0 [facility] RANJANA ALBICANS, PARAPSILOSIS, TROPICALIS Not detected [facility] RANJANA GLABRATA 0 [facility] RANJANA GLABRATA Not detected [facility] RANJANA KRUSEI 0 [facility] RANJANA KRUSEI Not detected [facility] CHLAMYDIA TRACHOMATIS 0 [facility] CHLAMYDIA TRACHOMATIS Not detected [facility] GARDNERELLA VAGINALIS 0 [facility] GARDNERELLA VAGINALIS Not detected [facility] MEGASPHAERA (TYPES 1, 2) 0 [facility] MEGASPHAERA (TYPES 1, 2) Not detected [facility] MYCOPLASMA GENITALIUM 0 [facility] MYCOPLASMA GENITALIUM Not detected [facility] NEISSERIA GONORRHOEAE 0 [facility] NEISSERIA GONORRHOEAE Not detected [facility] TRICHOMONAS VAGINALIS 0 [facility] TRICHOMONAS VAGINALIS Not detected [facility] Urinalysis macro (dipstick) panel (U)on 06-16-2024 Bilirubin, UA Negative Negative - 4(70) +++ mg/dL [facility] Blood, UA Negative Negative - 50 Richy/mcL [facility] Clarity, UA Clear [facility] Color, UA Yellow [facility] Glucose, UA Negative Negative - 2000(110) ++++ mg/dL [facility] Interpretation and review of laboratory results Normal [facility] Ketones, UA Negative Negative - 160(16) ++++ mg/dL [facility] Leukocytes, UA Negative Negative - 500+++ Tano/mcL [facility] Nitrite, UA Negative Negative - Positive [facility] pH, UA 6 5 - 9 [facility] Protein, UA Negative Negative - 2000(20) ++++ mg/dL [facility] Spec Grav, UA 1.01 1 - 1.03 [facility] Urobilinogen, UA 0.2 0.2 - 12 mg/dL [facility] US OB 14+ WEEKS ANATOMY SCAN [...] II, MD, PHD at 11-May-2024 12:36:27 AM [facility] Normal Not Available Comment on above: Order Comment: US OB ANATOMY SINGLE W US OB CERVICAL LENGTH Estimated Date of Delivery: 09/24/24 Gestational Age as of 04/07/2024: 15w5d GLUCOSE 1 HOURon 04-10-2024 Glucose [Mass/Vol] 124 mg/dL NINF - 13 0 mg/dL [facility] Urinalysis macro (dipstick) panel (U)on 04-07-2024 Bilirubin, UA Negative Negative - 4(70) +++ mg/dL [facility] Blood, UA Positive Negative - 50 Richy/mcL [facility] Comment on above: trace Clarity, UA Clear [facility] Color, UA Yellow [facility] Glucose, UA Negative Negative - 1999(110) ++++ mg/dL [facility] Interpretation and review of laboratory results Abnormal [facility] Ketones, UA Positive Negative - 160(16) ++++ mg/dL [facility] Comment on above: 15 Leukocytes, UA Negative Negative - 500+++ Tano/mcL [facility] Nitrite, UA Negative Negative - Positive [facility] pH, UA 7 5 - 9 [facility] Protein, UA Negative Negative - 1999(20) ++++ mg/dL [facility] Spec Grav, UA 1.02 1 - 1.03 [facility] Urobilinogen, UA 1.0 0.2 - 12 mg/dL [facility] Urinalysis macro (dipstick) panel (U)on 03-10-2024 Bilirubin, UA Negative Negative - 4(70) +++ mg/dL [facility] Blood, UA Positive Negative - 50 Richy/mcL [facility] Comment on above: trace-intact Clarity, UA Clear [facility] Color, UA Yellow [facility] Glucose, UA Negative Negative - 1999(110) ++++ mg/dL [facility] Interpretation and review of laboratory results Abnormal [facility] Ketones, UA Negative Negative - 160(16) ++++ mg/dL [facility] Leukocytes, UA Negative Negative - 500+++ Tano/mcL [facility] Nitrite, UA Negative Negative - Positive [facility] pH, UA 6.5 5 - 9 [facility] Protein, UA Negative Negative - 1999(20) ++++ mg/dL [facility] Spec Grav, UA 1.01 1 - 1.03 [facility] Urobilinogen, UA 0.2 0.2 - 12 mg/dL [facility] BOX TESTon 02-27-2024 BOX TEST SENT OUT [facility] BOX1 [facility] BOX2 02/27/24 [facility] BOX [facility] Urine Cultureon 02-27-2024 Bacteria identified Cx Nom (U) No Growth 2 Days PERFORMED BY: [facility] [place] [address] PATHOLOGIST STUDENT NURSE SHEREE MCCARTHY M.D. Normal [facility] Comment on above: Performed By: #### C UU #### [facility] [address] [id number] [facility] HCG ( test) Ql (U)o n 02-11-2024 Interpretation and review of laboratory results Abnormal [facility] Preg Test, Ur Positive Negative [facility] Urinalysis macro (dipstick) panel (U)on 02-11-2024 Bilirubin, UA Positive Negative - 4(70) +++ mg/dL [facility] Comment on above: small Blood, UA Positive Negative - 50 Richy/mcL [facility] Comment on above: trace-lysed Clarity, UA Clear [facility] Color, UA Yellow [facility] Glucose, UA Negative Negative - 2000(110) ++++ mg/dL [facility] Interpretation and review of laboratory results Abnormal [facility] Ketones, UA Positive Negative - 160(16) ++++ mg/dL [facility] Comment on above: trace Leukocytes, UA Trace Negative - 500+++ Tano/mcL [facility] Nitrite, UA Negative Negative - Positive [facility] pH, UA 6 5 - 9 [facility] Protein, UA Positive Negative - 2000(20) ++++ mg/dL [facility] Comment on above: 100 Spec Grav, UA 1.03 1 - 1.03 [facility] Urobilinogen, UA 0.2 0.2 - 12 mg/dL [facility] TBH PREG QUANT HCGon 024 HCG QUANTITATIVE 27903 mIU/mL [facility] Comment on above: 5-50 0.2-1 WEEK 50-500 1-2 WEEKS 100-5,000 2-3 WEEKS 500-10,000 3-4 WEEKS 1,000-50,000 4-5 WEEKS 10,000-100,000 5-6 WEEKS 15,000-200,000 6-8 WEEKS 10,000-100,000 2-3 MONTHS [facility] PREG QUANT HCGon 024 HCG QUANTITATIVE 86638 mIU/mL [facility] Comment on above: 5-50 0.2-1 WEEK 50-500 1-2 WEEKS 100-5,000 2-3 WEEKS 500-10,000 3-4 WEEKS 1,000-50,000 4-5 WEEKS 10,000-100,000 5-6 WEEKS 15,000-200,000 6-8 WEEKS 10,000-100,000 2-3 MONTHS [facility] PREG QUANT HCGon 024 HCG QUANTITATIVE 67761 mIU/mL [facility] Comment on above: 5-50 0.2-1 WEEK 50-500 1-2 WEEKS 100-5,000 2-3 WEEKS 500-10,000 3-4 WEEKS 1,000-50,000 4-5 WEEKS 10,000-100,000 5-6 WEEKS 15,000-200,000 6-8 WEEKS 10,000-100,000 2-3 MONTHS [facility] PREG QUANT HCGon 024 HCG QUANTITATIVE 67665 mIU/mL [facility] Comment on above: 5-50 0.2-1 WEEK 50-500 1-2 WEEKS 100-5,000 2-3 WEEKS 500-10,000 3-4 WEEKS 1,000-50,000 4-5 WEEKS 10,000-100,000 5-6 WEEKS 15,000-200,000 6-8 WEEKS 10,000-100,000 2-3 MONTHS [facility] PREG QUANT HCGon 024 HCG QUANTITATIVE 8911 mIU/mL [facility] Comment on above: 5-50 0.2-1 WEEK 50-500 1-2 WEEKS 100-5,000 2-3 WEEKS 500-10,000 3-4 WEEKS 1,000-50,000 4-5 WEEKS 10,000-100,000 5-6 WEEKS 15,000-200,000 6-8 WEEKS 10,000-100,000 2-3 MONTHS [facility] PREG QUANT HCGon 024 HCG QUANTITATIVE 4641 mIU/mL [facility] Comment on above: 5-50 0.2-1 WEEK 50-500 1-2 WEEKS 100-5,000 2-3 WEEKS 500-10,000 3-4 WEEKS 1,000-50,000 4-5 WEEKS 10,000-100,000 5-6 WEEKS 15,000-200,000 6-8 WEEKS 10,000-100,000 2-3 MONTHS [facility] PREG QUANT HCGon 01-20-2 024 HCG QUANTITATIVE 2241 mIU/mL [facility] Comment on above: 5-50 0.2-1 WEEK 50-500 1-2 WEEKS 100-5,000 2-3 WEEKS 500-10,000 3-4 WEEKS 1,000-50,000 4-5 WEEKS 10,000-100,000 5-6 WEEKS 15,000-200,000 6-8 WEEKS 10,000-100,000 2-3 MONTHS [facility] PREG QUANT HCGon 01-18-2 024 HCG QUANTITATIVE 884 mIU/mL [facility] Comment on above: 5-50 0.2-1 WEEK 50-500 1-2 WEEKS 100-5,000 2-3 WEEKS 500-10,000 3-4 WEEKS 1,000-50,000 4-5 WEEKS 10,000-100,000 5-6 WEEKS 15,000-200,000 6-8 WEEKS 10,000-100,000 2-3 MONTHS [facility] IGP,APTIMA HPV,AGE GDLNon -2023 AGE GDLN ACOG TESTING Note . [facility] Comment on above: TESTS RESULT FLAG U NITS REF RANGE LAB Clinician Provided Cytology Information Source.............Cervix;Endocervix No. of containers..01 ThinPrep Vial Age Algo ACOG Sylvia... FLAG LEGEND: L-Low Normal,H-High Normal,LL-Alert Low,HH-Alert High <-Panic Low,>-Panic High,A-Abnormal,AA-Critical Abnormal Performed at: 01 =[address] [address] Amber Tilley MD, HPV APTIMA Negative Negative [facility] Comment on above: This nucleic acid am plification test detects fourteen high- risk HPV types (16,18,31,33,35,39,45,51,52,56,58,59,66,68) without differentiation. Performed at: =[address] [id number] Clerk: Amber Tilley MD, Phone: [phone] Performed at: [id number] Clerk: Amber Tilley MD, Phone: [phone] IGP, APTIMA HPV, RFX 16/18,45 Note . [facility] Comment on above: TESTS RESULT FLAG UN ITS REF RANGE LAB DIAGNOSIS: 02 NEGATIVE FOR INTRAEPITHELIAL LESION OR MALIGNANCY. REACTIVE CELLULAR CHANGES AND/OR REPAIR ARE PRESENT. Specimen adequacy: 02 Satisfactory for evaluation. Endocervical and/or squamous metaplastic cells (endocervical component) are present. Performed by: 02 Peggy Gandhi, Clinical Unit Educator (ASCP) Electronically si... 02 Divya Hoffman MD, [...] Low,>-Panic High,A-Abnormal,AA-Critical Abnormal Performed at: [address] [address] Amber Tilley MD, BRUSH-SPATULA CERVIX ENDOCERVIX [facility] Cytology Cervical or vaginal smear or scraping studyon 12-10-2023 [facility] HCG ( test) Ql (U)o n 12-10-2023 Interpretation and review of laboratory results Normal [facility] Preg Test, Ur Negative [facility] 06-30-2023 L Specimen: [id number] Received: 07/01/23 Status: WEN [place] Num: [id number] Spec Type: Surgical Subm Dr: Slava Castro Tissues: A Products of Conception - Spontaneous or Missed (POC) Procedures: HE/3, Gross/Micro L4 Age/ Patient Sex Location Account Attending Physician Shreya Marshall 32/F [facility] [id number] Slava Castro SPEC NUM: [id number] RECD: 07/01/23 STATUS: WEN [place]UVALL NUM: [id number] [place]: 06/30/[address]: Slava Castro ENTERED: 07/01/[address]: Rosey,Lab SPEC [...] spongy harman tissue consistent with villous tissue. Resource Specialist Teacher sections are submitted in A1?A3 to include the villous tissue in A1. Clinical history: Missed TW ---- Specimen: [id number] Received: 07/01/23 Status: WEN Jadiel Num: [id number] Spec Type: Surgical Subm Dr: Slava Castro Tissues: A Products of Conception - Spontaneous or Missed (POC) Procedures: /3, Gross/Micro L4 ---- Patient: Shreya Marshall [id number] (Continued) ---- Specimen: [id number] Received: 07/01/23 (Continued) Signed (signature on file) Shen Virgen MD 07/02/23 1859 ---- Specimen: [id number] Received: 07/01/23 Status: WEN Jadiel Num: [id number] Spec Type: Surgical Subm Dr: Slava Castro Tissues: A Products of Conception - Spontaneous or Missed (POC) Procedures: SUSY/Ruthy, Meghan/Maksim L4 ---- Patient: Shreya Marshall [id number] (Continued) ---- Specimen: [id number] Received: 07/01/23 (Continued) CPT Codes 72770 ---- ---- Specimen: [id number] Received: 07/01/23130 Status: WEN Jadiel Num: [id number] Spec Type: Surgical Subm Dr: Slava Castro Tissues: A Products of Conception - Spontaneous or Missed (POC) Procedures: HE/Ruthy, Gross/Micro L4 ---- Patient: Shreya Marshall [id number] (Continued) ---- Signed (signature on file) Shen Virgen MD 07/02/231858 Normal [facility] Covid-19 PCR (CVDTBH)on 01-25 SARS-CoV-2 [...] for this test is supported by the [place] of Health and Human Service's (HHS's) declaration [...] #### [facility] [address] [place] [address] Dr. Luis Virgen INFLUENZA A AND B [facility] 02-20 INFLUBNEGH SEE BELOW Normal [facility] Comment on above: Result Comment: Nega tive for Flu B protein antigen. Infection due to Flu B cannot be ruled out. Flu B antigen in the sample may be below the detection limit of the test. Performed By: #### I NFLUAB #### [facility] [address] [place] [address] Dr. Luis Virgen INFLUENZA A AG Positive Abnormal NEGATIVE SEE COMMENT [facility] Comment on above: Performed By: #### I NFLUAB #### [facility] [address] [place] [address] Dr. Luis Virgen INFLUENZA B AG Negative Normal NEGATIVE SEE COMMENT [facility] Comment on above: Performed By: #### I NFLUAB #### [facility] [address] [place] [address] Dr. Luis Virgen XR CHEST 1 Von 02-20-2022 XR CHEST 1 V EXAM: CHEST 1 VIEW HISTORY: COUGH TECHNIQUE: Chest, one view. COMPARISON: None. FINDINGS: Lungs are clear. No focal consolidation, pleural effusion, or pneumothorax. Pulmonary vasculature is within normal limits. Cardiomediastinal silhouette is normal. IMPRESSION: 1. No acute cardiopulmonary disease. Electronically authenticated by: PHOEBE ALFARO Date: 2022-02-20 17:46 Normal [facility] PAP ACOG PANEL 2: 30 to 65on 11-13-2021 . . Normal [facility] Comment on above: Result Comment: Perf ormed at: WB Performed By: #### [id number] #### [facility] [address] [address] [address] Luis Virgen Age Gdln ACOG Testing 30-65 Normal [facility] Comment on above: Performed By: #### [id number] #### [facility] [address] [address] [address] Luis Virgen DIAGNOSIS: Comment Normal [facility] Comment on above: Result Comment: NEGA TIVE FOR INTRAEPITHELIAL LESION OR MALIGNANCY. Performed at: WB Performed By: #### [id number] #### [facility] [address] [address] [address] Luis Virgen HPV Aptima Negative Normal Negative [facility] Comment on above: Result Comment: This nucleic acid amplification test detects fourteen high-risk HPV types (16,18,31,33,35,39,45,51,52,56,58,59,66,68) without differentiation. Performed at: =G Performed By: #### [id number] #### [facility] [address] [address] [address] Luis Virgen Methodology: Comment Normal [facility] Comment on above: Result Comment: This liquid based ThinPrep(R) pap test was screened with the use of an image guided system. Performed at: WB Performed By: #### [id number] #### [facility] [address] [address] [address] Luis Virgen Note: Comment Normal [facility] Comment on above: Result Comment: The Pap smear is a screening test designed to aid in the detection of premalignant and malignant conditions of the uterine cervix. It is not a diagnostic procedure and should not be used as the sole means of detecting cervical cancer. Both false-positive and false-negative reports do occur. . Performed at: WB Performed By: #### [id number] #### [facility] [address] [place] [address] Dr. Luis Virgen Performed by: Comment Normal [facility] Comment on above: Result Comment: Maureen Del Cid, Clinical Unit Educator (ASCP) Performed at: WB Performed By: #### [id number] #### [facility] [address] [place] [address] Dr. Luis Virgen Specimen adequacy: Comment Normal [facility] Comment on above: Result Comment: Sati sfactory for evaluation. Endocervical and/or squamous metaplastic cells (endocervical component) are present. Performed at: WB Performed By: #### [id number] #### [facility] [address] [place] [address] Dr. Luis Virgen URon 08-20-2021 , QUAL Negative Normal NEGATIVE [facility] Comment on above: Performed By: #### P REGU #### [facility] [address] [place] [address] Dr. Luis Virgen CBC AUTO DIFFon 08-06-2021 BASO # 0.0 103/ul Normal 0.0-0.1 [facility] Comment on above: Performed By: #### C BC #### [facility] [address] [place] [address] Dr. Luis Virgen Basophils/100 WBC (Bld) 0.3 % Normal 0.2-2.0 [facility] Comment on above: Performed By: #### C BC #### [facility] [address] [place] [address] Dr. Luis Virgen EO # 0.0 103/ul Normal 0.0-0.7 [facility] Comment on above: Performed By: #### C BC #### [facility] [address] [place] [address] Dr. Luis Virgen Eosinophils/100 WBC (Bld) 0.3 % Critically low 0.9-7.0 [facility] Comment on above: Performed By: #### C BC #### [facility] [address] [place] [address] Dr. Luis Virgen Erythrocyte distribution width (RBC) [Ratio] 12.6 % Normal 11.0-15.0 [facility] Comment on above: Performed By: #### C BC #### [facility] [address] [place] [address] Dr. Luis Virgen Hematocrit (Bld) [Volume fraction] 41.5 % Normal 36.0-48.0 [facility] Comment on above: Performed By: #### C BC #### [facility] [address] [place] [address] Dr. Luis Virgen Hemoglobin (Bld) [Mass/Vol] 13.5 g/dL Normal 12.0-16.0 [facility] Comment on above: Performed By: #### C BC #### [facility] [address] [place] [address] Dr. Luis Virgen IG # 0.03 10e3/ul Normal 0.00-0.03 [facility] Comment on above: Performed By: #### C BC #### [facility] [address] [place] [address] Dr. Luis Virgen IG % 0.4 % Normal 0.0-0.5 [facility] Comment on above: Performed By: #### C BC #### [facility] [address] [place] [address] Dr. Luis Virgen LYMPH # 2.4 103/ul Normal 1.2-3.8 [facility] Comment on above: Performed By: #### C BC #### [facility] [address] [place] [address] Dr. Luis Virgen Lymphocytes/100 WBC (Bld) 31.8 % Normal 20.5-60.0 [facility] Comment on above: Performed By: #### C BC #### [facility] [address] [place] [address] Dr. Luis Virgen MANUAL DIFF REQ NO Normal [facility] Comment on above: Performed By: #### C BC #### [facility] [address] [place] [address] Dr. Luis Virgen MCH (RBC) [Entitic mass] 30.5 pg Normal 26.7-34.0 [facility] Comment on above: Performed By: #### C BC #### [facility] [address] [place] [address] Dr. Luis Virgen MCHC (RBC) [Mass/Vol] 32.5 g/dL Normal 29.9-35.2 [facility] Comment on above: Performed By: #### C BC #### [facility] [address] [place] [address] Dr. Luis Virgen MCV (RBC) [Entitic vol] 93.9 fL Normal 81.0-99.0 [facility] Comment on above: Performed By: #### C BC #### [facility] [address] [place] [address] Dr. Luis Virgen MONO # 0.6 103/ul Normal 0.3-0.8 [facility] Comment on above: Performed By: #### C BC #### [facility] [address] [place] [address] Dr. Luis Virgen Monocytes/100 WBC (Bld) 7.4 % Normal 1.7-12.0 [facility] Comment on above: Performed By: #### C BC #### [facility] [address] [place] [address] Dr. Luis Virgen NEUT # 4.5 103/ul Normal 1.4-6.5 [facility] Comment on above: Performed By: #### C BC #### [facility] [address] [place] [address] Dr. Luis Virgen Neutrophils/100 WBC (Bld) 59.8 % Normal 43.0-75.0 [facility] Comment on above: Performed By: #### C BC #### [facility] [address] [place] [address] Dr. Luis Virgen Platelet mean volume (Bld) [Entitic vol] 10.0 fL Normal 9.5-13.5 [facility] Comment on above: Performed By: #### C BC #### [facility] [address] [place] [address] Dr. Luis Virgen PLT 337 103/ul Normal 150-450 [facility] Comment on above: Performed By: #### C BC #### [facility] [address] [place] [address] Dr. Luis Virgen RBC 4.42 106/ul Normal 4.20-5.40 [facility] Comment on above: Performed By: #### C BC #### [facility] [address] [place] [address] Dr. Luis Virgen WBC 7.6 103/ul Normal 4.0-11.0 [facility] Comment on above: Performed By: #### C BC #### [facility] [address] [place] [address] Dr. Luis Virgen FREE T4on 08-06-2021 Free T4 [Mass/Vol] 0.91 ng/dL Normal 0.76-1.46 [facility] Comment on above: Performed By: #### F T4 #### [facility] [address] [place] [address] Dr. Luis Virgen LIPID PROFILEon 08-06-2021 CHOL-HDL RATIO NORM SEE BELOW Normal [facility] Comment on above: Result Comment: 3.3 - 4.4 LOW RISK 4.4 - 7.1 AVERAGE RISK 7.1 - 11.0 MODERATE RISK >11.0 HIGH RISK Performed By: #### C MP, TSH, LIPID #### [facility] [address] [place] [address] Dr. Luis Virgen Cholesterol [Mass/Vol] 154 mg/dL Normal <=200 [facility] Comment on above: Performed By: #### C MP, TSH, LIPID #### [facility] [address] [place] [address] Dr. Luis Virgen Cholesterol in HDL [Mass/Vol] 35 mg/dL Critically low 40-60 [facility] Comment on above: Performed By: #### C MP, TSH, LIPID #### [facility] [address] [place] [address] Dr. Luis Virgen Cholesterol in LDL [Mass/Vol] 80.8 mg/dL Normal [facility] Comment on above: Performed By: #### C MP, TSH, LIPID #### [facility] [address] [address] [address] Luis Virgen Cholesterol.total/C holesterol in HDL [Mass ratio] 4.4 {ratio} Normal [facility] Comment on above: Performed By: #### C MP, TSH, LIPID #### [facility] [address] [address] [address] Luis Virgen HDL NORMAL > or = 60 mg/dl - LO W CARDIOVASCULAR RISK <40 mg/dl - HIGH CARDIOVASCULAR RISK Normal [facility] Comment on above: Performed By: #### C MP, TSH, LIPID #### [facility] [address] [address] [address] Luis Virgen LDL CALC NORMAL SEE BELOW Normal [facility] Comment on above: Result Comment: <100 mg/dl OPTIMAL 100 - 129 mg/dl NEAR OR ABOVE OPTIMAL 130 - 159 mg/dl BORDERLINE HIGH 160 - 189 mg/dl HIGH >190 mg/dl VERY HIGH Performed By: #### C MP, TSH, LIPID #### [facility] [address] [address] [address] Luis Virgen Triglyceride [Mass/Vol] 191 mg/dL Critically high <=150 [facility] Comment on above: Performed By: #### C MP, TSH, LIPID #### [facility] [address] [place] [address] Dr. Luis Virgen VLDL CALC 38.2 mg/dL Normal [facility] Comment on above: Performed By: #### C MP, TSH, LIPID #### [facility] [address] [address] [address] Luis Virgen PROF 14(COMP METB)on 022 Albumin [Mass/Vol] 4.1 g/dL Normal 3.4-5.0 [facility] Comment on above: Performed By: #### C MP, TSH, LIPID #### [facility] [address] [address] [address] Luis Virgen Albumin/Globulin [Mass ratio] 1.2 {ratio} Normal [facility] Comment on above: Performed By: #### C MP, TSH, LIPID #### [facility] [address] [address] [address] Luis Virgen ALP [Catalytic activity/Vol] 73 U/L Normal 46-116 [facility] Comment on above: Performed By: #### C MP, TSH, LIPID #### [facility] [address] [address] [address] Luis iVrgen ALT [Catalytic activity/Vol] 24 U/L Normal 14-59 [facility] Comment on above: Performed By: #### C MP, TSH, LIPID #### [facility] [address] [address] [address] Luis Virgen Anion gap [Moles/Vol] 13.2 mmol/L Normal [facility] Comment on above: Performed By: #### C MP, TSH, LIPID #### [facility] [address] [address] [address] Luis Virgen AST [Catalytic activity/Vol] 11 U/L Critically low 15-37 [facility] Comment on above: Performed By: #### C MP, TSH, LIPID #### [facility] [address] [address] [address] Luis Virgen Bilirubin [Mass/Vol] 0.8 mg/dL Normal 0.2-1.0 [facility] Comment on above: Performed By: #### C MP, TSH, LIPID #### [facility] [address] [address] [address] Luis Virgen Calcium [Mass/Vol] 8.9 mg/dL Normal 8.5-10.1 [facility] Comment on above: Performed By: #### C MP, TSH, LIPID #### [facility] [address] [address] [address] Luis Virgen Chloride [Moles/Vol] 103 mmol/L Normal 98-107 [facility] Comment on above: Performed By: #### C MP, TSH, LIPID #### [facility] [address] [address] [address] Luis Virgen CO2 [Moles/Vol] 27.5 mmol/L Normal 21.0-32.0 [facility] Comment on above: Performed By: #### C MP, TSH, LIPID #### [facility] [address] [address] [address] Luis Virgen Creatinine [Mass/Vol] 0.71 mg/dL Normal 0.55-1.02 [facility] Comment on above: Performed By: #### C MP, TSH, LIPID #### [facility] [address] [address] [address] Luis Virgen EGFR-AF INDONESIAN >60 Normal >=60 [facility] Comment on above: Performed By: #### C MP, TSH, LIPID #### [facility] [address] [address] [address] Luis Virgen EGFR-NON AF INDONESIAN >60 Normal >=60 [facility] Comment on above: Performed By: #### C MP, TSH, LIPID #### [facility] [address] [address] [address] Luis Virgen Globulin (S) [Mass/Vol] 3.5 g/dL Normal [facility] Comment on above: Performed By: #### C MP, TSH, LIPID #### [facility] [address] [address] [address] Luis Virgen Glucose [Mass/Vol] 101 mg/dL Normal 74-106 [facility] Comment on above: Performed By: #### C MP, TSH, LIPID #### [facility] [address] [address] [address] Luis Virgen Potassium [Moles/Vol] 4.7 mmol/L Normal 3.5-5.1 [facility] Comment on above: Performed By: #### C MP, TSH, LIPID #### [facility] [address] [address] [address] Luis Virgen Protein [Mass/Vol] 7.6 g/dL Normal 6.4-8.2 [facility] Comment on above: Performed By: #### C MP, TSH, LIPID #### [facility] [address] [address] [address] Luis Virgen Sodium [Moles/Vol] 139 mmol/L Normal 136-145 [facility] Comment on above: Performed By: #### C MP, TSH, LIPID #### [facility] [address] [address] [address] Luis Virgen Urea nitrogen [Mass/Vol] 9.0 mg/dL Normal 7.0-18.0 [facility] Comment on above: Performed By: #### C MP, TSH, LIPID #### [facility] [address] [place] [address] Dr. Luis Virgen Urea nitrogen/Creatinine [Mass ratio] 12.7 mg/mg Normal [facility] Comment on above: Performed By: #### C MP, TSH, LIPID #### [facility] [address] [place] [address] Dr. Luis Virgen TSHon 08-06-2021 TSH 0.924 uIU/mL Normal 0.358-3.740 [facility] Comment on above: Performed By: #### C MP, TSH, LIPID #### [facility] [address] [place] [address] Dr. Luis Virgen TSH RANGE SEE BELOW Normal [facility] Comment on above: Result Comment: <0.3 4 UIU/ml HYPERTHYROID 0.34-5.60 UIU/ml EUTHYROID >5.60 UIU/ml HYPOTHYROID Performed By: #### C MP, TSH, LIPID #### [facility] [address] [place] [address] Dr. Luis Virgen Vital Signs Date Time Vital Sign Value Performing Clinician Quinn elizondo 09-02-2024 10:47-0400 Body mass index (BMI) [Ratio] 33.6 kg/m2 Circa Work Phone: [facility] 09-02-2024 10:47-0400 Body weight 80.65 kg Circa Work Phone: [facility] 09-02-2024 10:47-0400 Diastolic blood pressure 70 mm[Hg] Circa Work Phone: [facility] 09-02-2024 10:47-0400 Systolic blood pressure 120 mm[Hg] Circa Work Phone: [facility] 08-18-2024 09:37-0400 Body mass index (BMI) [Ratio] 33.07 kg/m2 Cely Nolenerly SALES RE[employer]UITMENT SPECIALIST Work Phone: [facility] 08-18-2024 09:37-0400 Body weight 79.38 kg Cely Nolenerly SALES RECRUITMENT SPECIALIST Work Phone: [facility] 08-18-2024 09:37-0400 Diastolic blood pressure 82 mm[Hg] Cely Tobiasly SALES RECRUITMENT SPECIALIST Work Phone: [facility] 08-18-2024 09:37-0400 Systolic blood pressure 116 mm[Hg] Cely Tobiasly SALES RECRUITMENT SPECIALIST Work Phone: [facility] 08-04-2024 14:31-0400 Body mass index (BMI) [Ratio] 32.95 kg/m2 Slava Gloria DO Work Phone: [facility] 08-04-2024 14:31-0400 Body weight 79.11 kg Slava Gloria DO Work Phone: [facility] 08-04-2024 14:31-0400 Diastolic blood pressure 76 mm[Hg] Slava Gloria DO Work Phone: [facility] 08-04-2024 14:31-0400 Systolic blood pressure 120 mm[Hg] Slava Gloria DO Work Phone: [facility] 07-21-2024 14:30-0400 Body mass index (BMI) [Ratio] 33.14 kg/m2 Vidya DESAI Work Phone: [facility] 07-21-2024 14:30-0400 Body weight 79.56 kg Vidya DESAI Work Phone: [facility] 07-21-2024 14:30-0400 Diastolic blood pressure 74 mm[Hg] Vidya DESAI Work Phone: [facility] 07-21-2024 14:30-0400 Systolic blood pressure 110 mm[Hg] Vidya DESAI Work Phone: [facility] 07-06-2024 14:09-0400 Body mass index (BMI) [Ratio] 32.69 kg/m2 Slava Gloria DO Work Phone: [facility] 07-06-2024 14:09-0400 Body weight 78.47 kg Slava Gloria DO Work Phone: [facility] 07-06-2024 14:09-0400 Diastolic blood pressure 72 mm[Hg] Slava Gloria DO Work Phone: [facility] 07-06-2024 14:09-0400 Systolic blood pressure 118 mm[Hg] Slava Gloria DO Work Phone: [facility] 06-16-2024 14:05-0400 Body mass index (BMI) [Ratio] 32.12 kg/m2 Cely Carver SALES RECRUITMENT SPECIALIST Work Phone: [facility] 06-16-2024 14:05-0400 Body weight 77.11 kg Cely Carver SALES RECRUITMENT SPECIALIST Work Phone: [facility] 06-16-2024 14:05-0400 Diastolic blood pressure 70 mm[Hg] Cely Mehul SALES RECRUITMENT SPECIALIST Work Phone: [facility] 06-16-2024 14:05-0400 Systolic blood pressure 114 mm[Hg] Cely Mehul SALES RECRUITMENT SPECIALIST Work Phone: [facility] 04-07-2024 15:02-0500 Body mass index (BMI) [Ratio] 30.8 kg/m2 Vidya DESAI Work Phone: [facility] 04-07-2024 15:02-0500 Body weight 73.94 kg Vidya DESAI Work Phone: [facility] 04-07-2024 15:02-0500 Diastolic blood pressure 62 mm[Hg] Vidya DESAI Work Phone: [facility] 04-07-2024 15:02-0500 Systolic blood pressure 116 mm[Hg] Vidya DESAI Work Phone: [facility] 03-10-2024 14:45-0500 Body mass index (BMI) [Ratio] 30.63 kg/m2 Slava Gloria DO Work Phone: [facility] 03-10-2024 14:45-0500 Body weight 73.54 kg Slava Gloria DO Work Phone: [facility] 03-10-2024 14:45-0500 Diastolic blood pressure 66 mm[Hg] Slava Gloria DO Work Phone: [facility] 03-10-2024 14:45-0500 Systolic blood pressure 110 mm[Hg] Slava Gloria DO Work Phone: [facility] 02-11-2024 10:34-0500 Body mass index (BMI) [Ratio] 30.69 kg/m2 Nom Nurse [facility] 02-11-2024 10:34-0500 Body weight 73.66 kg Nom Nurse [facility] 02-11-2024 10:34-0500 Diastolic blood pressure 77 mm[Hg] [facility] Nurse [facility] 02-11-2024 10:34-0500 Systolic blood pressure 110 mm[Hg] Nom Nurse [facility] 12-10-2023 13:12-0400 Body mass index (BMI) [Ratio] 30.76 kg/m2 Slava Gloria DO Work Phone: [facility] 12-10-2023 13:12-0400 Body weight 73.85 kg Slava Gloria DO Work Phone: [facility] 12-10-2023 13:12-0400 Diastolic blood pressure 78 mm[Hg] Slava Gloria DO Work Phone: [facility] 12-10-2023 13:12-0400 Systolic blood pressure 116 mm[Hg] Slava Gloria DO Work Phone: [facility] Encounters Encounter Date Encounter Type Care Provider Facility Start: 09-02-2024 End: 09-02-2024 Bamboo flowsheet Slava Gloria DO Work Phone: [facility] Start: 09-02-2024 End: 09-02-2024 Bamboo flowsheet Slava Gloria DO Work Phone: [facility] Start: 09-02-2024 End: 09-02-2024 Office outpatient visit 15 minutes Slava Gloria DO Work Phone: [facility] Comment on above: 36 weeks gestation o f ([facility]); Third trimester ([facility]); History of gestational diabetes; Antepartum multigravida of advanced maternal age ([facility]) Start: 09-01-2024 End: 09-01-2024 Clinisync Result Encounter Vidya DESAI Work Phone: [facility] Unsolicited Start: 09-01-2024 End: 09-01-2024 Clinisync Result Encounter Vidya DESAI Work Phone: [facility] Unsolicited Start: 08-25-2024 End: 08-25-2024 Clinisync Result Encounter Generic External Data Provider [facility] Unsolicited Start: 08-25-2024 End: 08-25-2024 Clinisync Result Encounter Generic External Data Provider [facility] Unsolicited Start: 08-23-2024 End: 08-23-2024 Refill Анна Ha SALES RE[employer]UITMENT SPECIALIST Work Phone: [facility] Comment on above: Primary insomnia Start: 08-18-2024 End: 08-18-2024 Bamboo flowsheet Cely Carver SALES RE[employer]UITMENT SPECIALIST Work Phone: [facility] Start: 08-18-2024 End: 08-18-2024 Bamboo flowsheet Cely Mehul SALES RECRUITMENT SPECIALIST Work Phone: [facility] Start: 08-18-2024 End: 08-18-2024 Clinisync Result Encounter Generic External Data Provider [facility] Unsolicited Start: 08-18-2024 End: 08-18-2024 Office outpatient visit 15 minutes Cely Carver SALES RECRUITMENT SPECIALIST Work Phone: [facility] Comment on above: Third trimester preg eileen ([facility]); 34 weeks gestation of ([facility]) Start: 08-18-2024 End: 08-18-2024 ambulatory CELY TOBIASLY Not Available Start: 08-13-2024 End: 08-13-2024 Clinisync [...] 06-16-2024 End: 06-16-2024 Bamboo flowsheet Cely Carver SALES RECRUITMENT SPECIALIST Work Phone: [facility] Start: 06-16-2024 End: 06-17-2024 Bamboo flowsheet Cely Carver SALES RECRUITMENT SPECIALIST Work Phone: [facility] Start: 06-16-2024 End: 06-17-2024 External Result Encounter Slava Gloria DO Work Phone: [facility] Unsolicited Start: 06-16-2024 End: 06-16-2024 Office outpatient visit 15 minutes Cely Carver SALES RECRUITMENT SPECIALIST Work Phone: [facility] Comment on above: Second trimester pre gnancy; 25 weeks gestation of ; Screen for STD (sexually transmitted disease); Diabetes mellitus screening; Antepartum multigravida of advanced maternal age Start: 06-16-2024 End: 06-16-2024 ambulatory CELY MEHUL Not Available Start: 05-10-2024 End: 05-10-2024 ambulatory [...] [facility] Start: 02-27-2024 End: 02-27-2024 ambulatory Slava Gloria [facility] Work Phone: Start: 02-27-2024 End: 02-27-2024 Departed Referred Slava Gloria DO Work Phone: [facility] Start: 02-27-2024 End: 02-27-2024 Clinisync Result Encounter Generic External Data Provider [facility] Unsolicited Start: 02-27-2024 End: 02-27-2024 Clinisync Result Encounter Generic External Data Provider [facility] Unsolicited Start: 02-25-2024 End: 02-26-2024 Refill Анна Leland SALES RECRUITMENT SPECIALIST Work Phone: [facility] Comment on [...] preventive med est patient 18-39 yrs Slava Gloria DO Work Phone: [facility] Comment on above: Well woman exam with routine gynecological exam; Missed menses Start: 09-01-2023 Patient encounter status Slava Gloria DO Work Phone: [facility] Start: 09-01-2023 End: 09-01-2023 ambulatory АННА MCINTYREHOLZ Not Available Start: 06-30-2023 End: 06-30-2023 ambulatory MD Dar Brody Work Phone: [facility] Work Phone: Start: 06-30-2023 End: 06-30-2023 Departed Referred MD Dar Brody Work Phone: [facility] Start: 02-20-2022 End: 02-20-2022 ambulatory INSURANCE CODER АННА AICHHOLZ Facility:[facility] Start: 11-06-2021 End: 11-06-[address] SLAVA CASTRO Facility:[facility] Start: 08-20-2021 End: 08-20-2021 ambulatory INSURANCE CODER АННА AICHHOLZ Facility:[facility] Start: 08-06-2021 End: 08-07-2021 ambulatory INSURANCE CODER АННА AICHHOLZ Facility:[facility] Procedures Date Procedure Procedure Detail Performing Clinician Start: 09-02-2024 Urnls dip stick/tabl et rgnt non-auto w/o micrscp Slava Gloria DO Work Phone: Start: 09-01-2024 US OB BPP W NON-STRESS Vidya DESAI Work Phone: Start: 08-25-2024 US OB BPP W NON-STRESS Generic External Data Provider Start: 08-18-2024 US OB BPP W NON-STRESS Generic External Data Provider Start: 08-13-2024 US OB BPP W NON-STRESS Generic External Data Provider Start: 08-11-2024 US OB BPP W NON-STRESS Vidya DESAI Work Phone: Start: 08-04-2024 Urnls dip stick/tabl et rgnt non-auto w/o micrscp Slava Gloria DO Work Phone: Start: 08-04-2024 US OB BPP W NON-STRESS Generic External Data Provider Start: 07-28-2024 US OB GROWTH Generic Ex ternal Data Provider Start: 07-23-2024 GLUCOSE TOLERANCE 3 HOUR Slava Gloria DO Work Phone: Start: 07-06-2024 Urnls dip stick/tabl et rgnt non-auto w/o micrscp Slava Gloria DO Work Phone: Start: 07-05-2024 ALL CBC WITH AUTO DIFF Cely Carver SALES RECRUITMENT SPECIALIST Work Phone: Start: 06-16-2024 RECURRENT VAGINITIS (HTRX) Slava Gloria DO Work Phone: Start: 06-16-2024 Urnls dip stick/tabl et rgnt non-auto w/o micrscp Cely Carver SALES RECRUITMENT SPECIALIST Work Phone: Start: 04-10-2024 GLUCOSE 1 HOUR [...] in Cervix by Cyto stain Cely Carver SALES RECRUITMENT SPECIALIST Work Phone: Start: 12-10-2023 Cytp cerv/vag auto t hin layer prep mnl screen Slava Sovex Work Phone: Start: 11-25-2022 Microscopic observat ion [Identifier] [facility] Cervix [facility]: Plan of Treatment Date Care Activity Detail Author Start: 12-09-2028 Screening for malign ant neoplasm of cervix [facility] Start: 11-25-2025 Screening for malign ant neoplasm of cervix [facility] Start: 12-15-2024 End: 12-15-2024 Patient encounter procedure 12/15/2024 3:00 PM EDT Office Visit [facility] [address] [place] [address] Slava Castro DO [address] [place] [address] [facility] Start: 09-09-2024 End: 09-09-2024 Patient encounter procedure 09/09/2024 11:50 AM EDT Routine [facility] [address] [place] [address] Slava Castro, DO [address], [place] [id number] [facility] Start: 09-07-2024 End: 09-07-2024 Patient encounter procedure 09/07/2024 1:00 PM EDT Office Visit [facility] [address] [place] [address] Анна Ha, SALES RECRUITMENT SPECIALIST [address] [place] [address] [facility] Start: 09-02-2024 End: 09-02-2025 CULTURE, GROUP B STREP WITH SUSCEPTIBLITY CULTURE, GROUP B STREP WITH SUSCEPTIBLITY Lab Routine Third trimester ([facility]) Expected: 09/02/2024, Expires: 09/02/2025 [facility] Work Phone: Comment on above: Expected: 09/02/2024 , Expires: 09/02/2025 Start: 09-02-2024 End: 09-02-2024 Patient encounter procedure [facility] Comment on above: Arrived Start: 08-18-2024 End: 08-18-2024 Patient encounter procedure [facility] Comment on above: Arrived Start: 08-04-2024 End: 08-04-2024 Patient encounter procedure 08/04/2024 2:20 PM EDT Routine [facility] [address] [place] [phone] Slava Castro DO [address] [facility] [address] [place] [address] [facility] Start: 07-21-2024 End: 07-21-2024 Patient encounter procedure 07/21/2024 2:20 PM EDT Routine [facility] [address] [place] [phone] Vidya Jackson PA [address] [place] [address] [facility] Start: 07-21-2024 End: 01-21-2025 US biophysical profile w non stress test US biophysical profile w non stress test Imaging Routine History of gestational diabetes Expected: 07/21/2024 (Approximate), Expires: 01/21/2025 [facility] Work Phone: Comment on above: Expected: 07/21/2024 (Approximate), Expires: 01/21/2025 Start: 07-21-2024 End: 11-21-2024 US for US OB follow up transabdominal approach Imaging Routine History of gestational diabetes Expected: 07/21/2024, Expires: 11/21/2024 [facility] Comment on above: Expected: 07/21/2024 , Expires: 11/21/2024 Start: 07-06-2024 End: 07-06-2025 Measurement of glucose 1 hour after glucose challenge for glucose tolerance test Glucose tolerance, 1 hour Lab Routine Diabetes mellitus screening Expected: 07/06/2024 (Approximate), Expires: 07/06/2025 [facility] Work Phone: Comment on above: Expected: 07/06/2024 (Approximate), Expires: 07/06/2025 Start: 07-06-2024 End: 11-06-2024 US for US OB follow up transabdominal approach Imaging Routine SGA (small for gestational age) Expected: 07/06/2024, Expires: 11/06/2024 [facility] Comment on above: Expected: 07/06/2024 , Expires: 11/06/2024 Start: 07-06-2024 End: 07-06-2024 Patient encounter procedure 07/06/2024 1:50 PM EDT Routine [facility] [address] [place] [address] Slava Castro, [address], [place] [id number] [facility] Start: 07-06-2024 End: 07-06-2024 Professional / ancillary services management 07/06/2024 1:30 PM EDT Ancillary Procedure [facility] [address] [place] [phone] [facility] Start: 06-16-2024 End: 06-16-2025 CBC panel - Blood by Automated count CBC Lab Routine Diabetes mellitus screening Expected: 06/16/2024 (Approximate), Expires: 06/16/2025 [facility] Comment on above: Expected: 06/16/2024 (Approximate), Expires: 06/16/2025 Start: 06-16-2024 End: 06-16-2025 Measurement of glucose 1 hour after glucose challenge for glucose tolerance test Glucose tolerance, 1 hour Lab Routine Diabetes mellitus screening Expected: 06/16/2024 (Approximate), Expires: 06/16/2025 [facility] Comment on above: Expected: 06/16/2024 (Approximate), Expires: 06/16/2025 Start: 06-16-2024 End: 10-16-2024 US for US OB follow up transabdominal approach Imaging Routine Antepartum multigravida of advanced maternal age Expected: 06/16/2024, Expires: 10/16/2024 [facility] Work Phone: Comment on above: Expected: 06/16/2024 , Expires: 10/16/2024 Start: 06-16-2024 End: 06-16-2024 Patient encounter procedure 06/16/2024 1:20 PM EDT Routine [facility] [address] [place] [phone] Cely Carver, SALES RECRUITMENT SPECIALIST [address] [facility] [address] [place] [phone] Arrived [facility] Comment on above: Arrived Start: 05-10-2024 End: 05-10-2024 Patient encounter procedure 05/10/2024 2:40 PM EDT Routine [facility] [address] [place] [phone] Slava Castro DO [address] [facility] [address] [place] [address] [facility] Start: 05-10-2024 End: 05-10-2024 Professional / ancillary services management 05/10/2024 1:30 PM EDT Ancillary Procedure [facility] [address] [place] [phone] [facility] Start: 04-07-2024 End: 04-07-2024 Patient encounter procedure [facility] Comment on above: Arrived Start: 04-07-2024 End: 05-05-2024 Alpha fetoprotein, maternal Alpha fetoprotein, maternal Lab Routine Need for maternal serum alpha-protein (MSAFP) screening Expected: 04/07/2024 (Approximate), Expires: 05/05/2024 [facility] Comment on above: Expected: 04/07/2024 (Approximate), Expires: 05/05/2024 Start: 04-07-2024 End: 04-07-2025 Measurement of glucose 1 hour after glucose challenge for glucose tolerance test Glucose tolerance, 1 hour Lab Routine Diabetes mellitus screening Expected: 04/07/2024 (Approximate), Expires: 04/07/2025 [facility] Work Phone: Comment on above: Expected: 04/07/2024 (Approximate), Expires: 04/07/2025 Start: 04-07-2024 End: 04-07-2025 US for US OB 14+ weeks anatomy scan Imaging Routine Screening, , for anatomic survey Expected: 04/07/2024, Expires: 04/07/2025 [facility] Comment on above: Expected: 04/07/2024 , Expires: 04/07/2025 Start: 03-10-2024 End: 03-10-2024 Patient encounter procedure 03/10/2024 2:20 PM EST Routine [facility] [address] [place] [phone] Slava Castro, [address] [place] [address] [facility] Start: 03-02-2024 End: 03-02-2024 Patient encounter procedure 03/02/2024 9:40 AM EST Office Visit [facility] [address] [place] [address] Анна Ha, VÍCTOR [address] [place] [address] [facility] Start: 02-27-2024 Urine culture [facility] Start: 02-27-2024 Bacteria identified in Urine by Culture Urine Culture [facility] Start: 02-11-2024 End: 02-10-2025 ABO/Rh ABO/Rh Lab Routine Missed menses , unspecified gestational age Expected: 02/11/2024 (Approximate), Expires: 02/10/2025 [facility] Comment on above: Expected: 02/11/2024 (Approximate), Expires: 02/10/2025 Start: 02-11-2024 End: 02-10-2025 Blood type and Indirect antibody screen panel - Blood Type and screen Lab Routine Missed menses , unspecified gestational age Expected: 02/11/2024 (Approximate), Expires: 02/10/2025 [facility] Work Phone: Comment on above: Expected: 02/11/2024 (Approximate), Expires: 02/10/2025 Start: 02-11-2024 End: 02-10-2025 Drugs of abuse panel - Urine by Screen method Rapid drug screen, urine Lab Routine , unspecified gestational age Encounter for supervision of normal first in first trimester Expected: 02/11/2024 (Approximate), Expires: 02/10/2025 [facility] Comment on above: Expected: 02/11/2024 (Approximate), Expires: 02/10/2025 Start: 02-11-2024 End: 02-10-2025 US Pelvis transvaginal US OB transvaginal Imaging Routine Missed menses Expected: 02/11/2024 (Approximate), Expires: 02/10/2025 [facility] Comment on above: Expected: 02/11/2024 (Approximate), Expires: 02/10/2025 Start: 02-11-2024 End: 02-11-2024 ambulatory 02/11/2024 10:00 AM EST Initial [facility] [address] [place] [address] [facility] Start: 02-11-2024 End: 02-11-2024 Professional / ancillary services management 02/11/2024 9:30 AM EST Ancillary Procedure [facility] OB [address] [place] [address] [facility] OB Start: 2018 Screening for malign ant neoplasm of cervix HPV/Cotest [facility] Bacteria identified in Urine by Culture Urine culture Microbiology Routine Missed menses Ordered: 02/11/2024 [facility] Comment on above: Ordered: 02/11/2024 CBC W Auto Different ial panel - Blood CBC and differential Lab Routine Missed menses , unspecified gestational age Ordered: 02/11/2024 [facility] Comment on above: Ordered: 02/11/2024 CHLAMYDIA TRACHOMATI S (GENITO/STI) CHLAMYDIA TRACHOMATIS (GENITO/STI) Lab Routine Screen for STD (sexually transmitted disease) Ordered: 06/16/2024 [facility] Comment on above: Ordered: 06/16/2024 Cytology Cervical or vaginal smear or scraping study Pap Smear Pathology and Cytology Routine Well woman exam with routine gynecological exam Ordered: 12/10/2023 [facility] Work Phone: Comment on above: Ordered: 12/10/2023 Hemoglobin A1c/Hemoglobin.total in Blood Hemoglobin A1c Lab Routine Missed menses , unspecified gestational age Ordered: 02/11/2024 [facility] Comment on above: Ordered: 02/11/2024 Hepatitis B virus surface Ag [Presence] in Serum or Plasma by Immunoassay Hepatitis B surface antigen Lab Routine Missed menses , unspecified gestational age Ordered: 02/11/2024 [facility] Comment on above: Ordered: 02/11/2024 Hepatitis C virus Ab [Presence] in Serum or Plasma by Immunoassay Hepatitis C antibody Lab Routine Missed menses , unspecified gestational age Ordered: 02/11/2024 [facility] Comment on above: Ordered: 02/11/2024 HIV-1/HIV-2 antigen/antibody combination immunoassay HIV-1 and HIV-2 antibodies Lab Routine Missed menses , unspecified gestational age Ordered: 02/11/2024 [facility] Comment on above: Ordered: 02/11/2024 Human papilloma viru s DNA [Presence] in Unspecified specimen by Probe with amplification HPV DNA probe, amplified Microbiology Routine Well woman exam with routine gynecological exam Ordered: 12/10/2023 [facility] Comment on above: Ordered: 12/10/2023 Neisseria gonorrhoea e DNA [Presence] in Unspecified specimen by JUAN with probe detection Neisseria gonorrhea DNA probe, direct Lab Routine Screen for STD (sexually transmitted disease) Ordered: 06/16/2024 [facility] Comment on above: Ordered: 06/16/2024 Reagin Ab [Presence] in Serum by RPR RPR Lab Routine Missed menses , unspecified gestational age Ordered: 02/11/2024 [facility] Comment on above: Ordered: 02/11/2024 Rubella antibody, IgG Rubella an tibody, IgG Lab Routine Missed menses , unspecified gestational age Ordered: 02/11/2024 [facility] Comment on above: Ordered: 02/11/2024 SURESWAB(R) ADVANCED VAGINITIS PLUS, TMA SURESWAB(R) ADVANCED VAGINITIS PLUS, TMA Pathology and Cytology Routine Screen for STD (sexually transmitted disease) Ordered: 06/16/2024 [facility] Work Phone: Comment on above: Ordered: 06/16/2024 Immunizations Immunization Date Immunization Notes Care Provider Joan ornelas 12-08-2017 influenza, seasonal, injectable, preservative free Slava Francozio DO Work Phone: [facility] Payers Date Payer Category Payer Self-pay [id number] 2023 Managed Care HMO (unspecified) [employer] [id number] 2023 Private Health Insurance [id number] 2022 Medicaid (Managed Care) [employer] [id number] 1988 Unknown [id number] 2.840.1.999951.3.579. 2.593 1988 Unknown [id number] 2.840.1.819858.3.579. 2.59 1988 Unknown [id number] 2.840.1.185437.3.579. 2.593 1988 Unknown [id number] 2.840.1.297313.3.579. 2.593 1988 Unknown [id number] 2.840.1.010057.3.579. 2.1259 1988 Unknown [id number] 2.16840.1.379424.3.579. 2.1259 1988 Unknown [id number] 2.16840.1.430930.3.579. 2.1259 1988 Unknown [id number] 2.16840.1.855772.3.579. 2.1259 1988 Unknown [id number] 2.16840.1.978448.3.579. 2.9 1988 Unknown [id number] 2.16.840.1.514429.3.579. 2.1258 1988 Unknown [id number] 2.16.840.1.912943.3.579. 2.1258 1988 Unknown [id number] 2.16.840.1.554500.3.579. 2.1258 1988 Unknown [id number] 2.16.840.1.647498.3.579. 2.1258 1988 Unknown [id number] 2.16.840.1.405441.3.579. 2.1258 1988 Unknown [id number] 2.16840.1.916727.3.579. 2.1258 1988 Unknown [id number] 2.16.840.1.595133.3.579. 2.1258 1988 Unknown [id number] 2.16.840.1.033594.3.579. 2.9 1959 Unknown [id number] Private Health Insurance [facility] [employer] [id number] Unknown [id number] 2.16.840.1.909265.3.579. 2.531 Unknown [id number] 2.16.840.1.929734.3.579. 2.531 Social History Date Type Detail Facility Start: 03-05-2019 End: 03-05-2019 Tobacco smoking status [facility] Never smoked tobacco (finding) [facility] Start: 1990 Sex Assigned At Female [facility] Start: 10-30-2022 Tobacco smoking status [facility] Ex-smoker [facility] End: 02-24-2014 History of tobacco use Current smoker [facility] End: 02-24-2014 History of tobacco use Cigarette Smoker [facility] Start: 10-30-2022 Tobacco use and exposure Smokeless tobacco non-user [facility] Start: 12-10-2023 End: 09-02-2024 Alcoholic beverage intake Lifetime non-drinker (finding) [facility] Start: 05-19-2023 End: 08-31-2024 History of Social function [facility] Start: 05-19-2023 End: 08-31-2024 Social connection and isolation panel [facility] Do you belong to any clubs or organizations such as zoroastrian groups, unions, fraternal [...] [facility] Start: 02-28-2024 Sex Female (finding) [facility] Do you feel stress - tense, restless, nervous, or anxious, or unable to sleep at night because your mind is troubled all the time - these days [OSQ] To some extent [facility] Goals Date Patient Goal Desired Activity /State Personal health goal Clinical Notes 12-10-2023 to 09-02-2024 Ramandeep Ferguson LPN - 09/02/2024 10:40 AM Percy Carver NP - 08/18/2024 9:30 AM Fred Gilbert LPN - 08/04/2024 2:20 PM GISELLE Tracy - 07/21/2024 2:20 PM EDT Note Date & Type Note Facility 09-02-2024 History of Present illness Narrative Reason for [...] abnormal pap smear PAP SMEAR 03/07/2014 [facility] Drug Therapy -SVT TONSILLECTOMY 1992 [...] nursing note reviewed. Exam conducted with a lining folder present. Vitals: Estimated body mass index is 33.6 kg/m as calculated from the following: Height as of 24: 5' 1 . Weight as of this encounter: 177 lb 12.8 oz. BP: 120/70 Patient's last menstrual period was 12/11/2023. ASSESSMENT & PLAN ICD-10-CM 1. 36 weeks gestation of ([facility]) Z3A.36 POCT urinalysis dipstick manually resulted 2. Third trimester ([facility]) Z34.93 POCT urinalysis dipstick manually resulted CULTURE, GROUP B STREP WITH SUSCEPTIBLITY CULTURE, GROUP B STREP WITH SUSCEPTIBLITY 3. History of gestational diabetes Z86.32 4. Antepartum multigravida of advanced maternal age ([facility]) O09.529 Patient is doing well but has [...] by Ramandeep Ferguson LPN on behalf of: Slvaa Castro DO documented in this encounter [facility] 08-18-2024 History of Present illness Narrative Reason [...] abnormal pap smear PAP SMEAR 03/07/2014 [facility] Drug Therapy -SVT TONSILLECTOMY 1992 [...] nursing note reviewed. Exam conducted with a lining folder present. Vitals: Estimated body mass index is 33.07 kg/m as calculated from the following: Height as of 24: 5' 1 . Weight as of this encounter: 175 lb. BP: 116/82 Patient's last menstrual period was 12/11/2023. ASSESSMENT & PLAN ICD-10-CM 1. Third trimester ([facility]) Z34.93 2. 34 weeks gestation of ([facility]) Z3A.34 Return OB: Patient presents today for [...] by Cely Carver NP on behalf of: Cely Carver NP documented in this encounter [facility] 08-04-2024 History of Present illness Narrative Reason [...] for wellness examination in adult 09/01/2023 Depression ([facility]) 09/01/2023 Resolved Ambulatory Problems Diagnosis Date Noted Major depressive disorder, single episode, mild (HCC) ([facility]) 09/01/2023 Past Medical History: Diagnosis Date Abnormal Pap smear of cervix 2009 Contraception management Current mild episode of major depressive disorder without prior episode (HCC) ([facility]) Degenerative joint disease of spine Encounter for IUD removal History of abnormal cervical Pap smear [facility] Pap smear of vagina 2012 Overweight (BMI 25.0-29.9) SVT (supraventricular tachycardia) ([facility]) Torn meniscus HISTORY PAST MEDICAL HISTORY SOCIAL HISTORY Past Medical History: Diagnosis Date Abnormal Pap smear of cervix 2009 Contraception management Current mild episode of major depressive disorder without prior episode (HCC) ([facility]) 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 Artis needs to stop with preg. Cat. C [facility] Pap smear of vagina 2012 Overweight (BMI 25.0-29.9) SVT (supraventricular tachycardia) ([facility]) Torn meniscus Social History Tobacco [...] abnormal pap smear PAP SMEAR 03/07/2014 [facility] Drug Therapy -SVT TONSILLECTOMY 1992 [...] nursing note reviewed. Exam conducted with a lining folder present. Vitals: Estimated body mass index is [...] Slava Castro DO documented in this encounter [facility] 07-21-2024 History of Present illness Narrative Reason [...] abnormal pap smear PAP SMEAR 03/07/2014 [facility] Drug Therapy -SVT TONSILLECTOMY 1992 [...] of: GISELLE Cramer documented in this encounter [facility] 07-06-2024 History of Present illness Narrative Reason [...] for wellness examination in adult 09/01/2023 Depression ([facility]) 09/01/2023 Resolved Ambulatory Problems Diagnosis Date Noted Major depressive disorder, single episode, mild (HCC) ([facility]) 09/01/2023 Past Medical History: Diagnosis Date Abnormal Pap smear of cervix 2009 Contraception management Current mild episode of major depressive disorder without prior episode (HCC) ([facility]) Degenerative joint disease of spine [...] abnormal pap smear PAP SMEAR 03/07/2014 [facility] Drug Therapy -SVT TONSILLECTOMY 1992 [...] nursing note reviewed. Exam conducted with a lining folder present. Vitals: Estimated body mass index is [...] Slava Castro DO documented in this encounter [facility] 06-16-2024 History of Present illness Narrative Reason [...] for wellness examination in adult 09/01/2023 Depression ([facility]) 09/01/2023 Resolved Ambulatory Problems Diagnosis Date Noted Major depressive disorder, single episode, mild (HCC) ([facility]) 09/01/2023 Past Medical History: Diagnosis Date Abnormal Pap smear of cervix 2009 Contraception management Current mild episode of major depressive disorder without prior episode (HCC) ([facility]) Degenerative joint disease of spine Encounter for IUD removal History of abnormal cervical Pap smear [facility] Pap smear of vagina 2012 Overweight (BMI 25.0-29.9) SVT (supraventricular tachycardia) ([facility]) Torn meniscus HISTORY PAST MEDICAL HISTORY SOCIAL HISTORY Past Medical History: Diagnosis Date Abnormal Pap smear of cervix 2009 Contraception management Current mild episode of major depressive disorder without prior episode (HCC) ([facility]) 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 Artis needs to stop with preg. Cat. C [facility] Pap smear of vagina 2012 Overweight (BMI 25.0-29.9) SVT (supraventricular tachycardia) ([facility]) Torn meniscus Social History Tobacco [...] abnormal pap smear PAP SMEAR 03/07/2014 [facility] Drug Therapy -SVT TONSILLECTOMY 1992 [...] nursing note reviewed. Exam conducted with a lining folder present. Vitals: Estimated body mass index is [...] Cely Carver NP documented in this encounter [facility] 04-07-2024 History of Present illness Narrative Reason [...] abnormal pap smear PAP SMEAR 03/07/2014 [facility] Drug Therapy -SVT TONSILLECTOMY 1992 [...] of: GISELLE Cramer documented in this encounter [facility] 03-10-2024 History of Present illness Narrative Reason [...] Noted Major depressive disorder, single episode, mild ([facility]) ([facility]) 09/01/2023 Past Medical History: Diagnosis Date Abnormal Pap smear of cervix 2009 Contraception management Current mild episode of major depressive disorder without prior episode (HCC) ([facility]) Degenerative joint disease of spine Encounter for IUD removal History of abnormal cervical Pap smear [facility] Pap smear of vagina 2012 Overweight (BMI 25.0-29.9) SVT (supraventricular tachycardia) ([facility]) Torn meniscus HISTORY PAST MEDICAL HISTORY SOCIAL HISTORY Past Medical History: Diagnosis Date Abnormal Pap smear of cervix 2009 Contraception management Current mild episode of major depressive disorder without prior episode (HCC) ([facility]) 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 Artis needs to stop with preg. Cat. C [facility] Pap smear of vagina 2012 Overweight (BMI 25.0-29.9) SVT (supraventricular tachycardia) ([facility]) Torn meniscus Social History Tobacco [...] abnormal pap smear PAP SMEAR 03/07/2014 [facility] Drug Therapy -SVT TONSILLECTOMY 1992 [...] nursing note reviewed. Exam conducted with a lining folder present. Vitals: Estimated body mass index is [...] or undercooked meat, and stay away from [facility]. Patient has been consulted regarding any [...] Isatu Gilbert LPN on behalf of: Slava Gloria, DO documented in this encounter [facility] 02-11-2024 History of Present illness Narrative Reason [...] abnormal pap smear PAP SMEAR 03/07/2014 [facility] Drug Therapy -SVT TONSILLECTOMY 1992 [...] or undercooked meat, and stay away from [facility]. Patient has also been advised to not change litter boxes and eat 6 small meals a day. Patient has been consulted regarding the do's and don'ts of . Patient was given labs and all questions and concerns were answered. Patient was given [place] to have completed at 10 weeks. Follow Up: Patient is to return in 4 weeks for routine OB appointment. Follow Up: Patient is to have labs drawn at directed and return to office for initial OB appointment with provider. Patient may call office as needed with any concerns or questions. Nurse Visit Completed by: Lynnette Stapleton LPN documented in this encounter [facility] 12-10-2023 History of Present illness Narrative Reason [...] Current packs/day: 0.00 Types: Cigarettes Quit date: 2015 Years since quittin.7 Smokeless tobacco: Never Tobacco [...] abnormal pap smear PAP SMEAR 03/07/2014 [facility] Drug Therapy -SVT TONSILLECTOMY 1992 [...] nursing note reviewed. Exam conducted with a lining folder present. Vitals: Estimated body mass index is [...] Evaluation note No assessment inform ation available [facility] Work Phone: Evaluation note Diagnosis Primary insomnia- [...] diabetes mellitus SGA (small for gestational age) [id number] without mention of malnutrition, unspecified (weight) documented [...] Major depressive disorder, single episode, mild (HCC) ([facility]) Major depressive disorder, single episode, mild Primary [...] 30-39.9) Depression, unspecified depression type Third trimester ([facility]) state, incidental 34 weeks gestation of ([facility]) [facility] [...] Obesity (BMI 30-39.9) Depression, unspecified depression type 36 weeks gestation of ([facility]) Third trimester ([facility]) state, incidental History of gestational diabetes Personal history of other genital system and obstetric disorders Antepartum multigravida of advanced maternal age ([facility]) documented in this encounter [facility] Summary [...] CREATED AUTHOR AUTHOR'S ORGANIZ ATION 03/06/2024 [facility] DATE CREATED AUTHOR AUTHOR'S ORGANIZ ATION 08/19/2024 [facility] Care Teams (unrecognized sec tion and content) Team Status: Active Member Role Status Dates Dar Brody MD Primary Care Provider Active Team Status: Inactive Member Role Status Dates Dar Brody MD Primary Care Provider Active Start: June 30, 2023 End: June 30, 2023 Slava Castro Attending Provider Active Start: Viky brewer 2023 End: June 30, 2023 Button Station Worker Relationship Specialty Start Date End Date Parag Bradley MD [address] [place] [address] PCP - General Family Medicine 08/14/22 Анна Ha NP [address] [place] [address] PCP - [facility] 08/25/23 Button Station Worker Relationship Specialty Start Date End Date Parag Bradley MD [address] [place] [address] PCP - General Family Medicine 08/14/22 Анна Ha NP [address] [place] [address] [facility] 08/25/23 Button Station Worker Relationship Specialty Start Date End Date Parag Bradley MD [address] [place] [phone] PCP - [facility] 08/14/22 Анна Ha NP [address] [place] [address] [facility] 08/25/23 Button Station Worker Relationship Specialty Start Date End Date Parag Bradley MD [address] [place] [phone] PCP - [facility] 08/14/22 Анна Ha NP [address] [place] [address] [facility] 08/25/23 Button Station Worker Relationship Specialty Start Date End Date Parag Bradley MD [address] [place] [address] PCP - [facility] 08/14/22 Анна Ha NP [address] [place] [address] [facility] 08/25/23 Button Station Worker Relationship Specialty Start Date End Date Parag Bradley MD [address] [place] [phone] PCP - [facility] 08/14/22 Анна Ha NP [address] [place] [address] [facility] - [facility] 08/25/23 Team Status: Inactive Member Role Status Dates Slava Castro DO Attending Provider Active Start : February 27, 2024 End: February 27, 2024 Button Station Worker Relationship Specialty Start Date End Date Parag Bradley MD [address] [place] [phone] PCP - [facility] 08/14/22 Анна Ha NP [address] [place] [phone] [facility] 08/25/23 Button Station Worker Relationship Specialty Start Date End Date Parag Bradley MD [address] [place] [phone] PCP - [facility] 08/14/22 Анна Ha NP [address] [place] [address] [facility] 08/25/23 Button Station Worker Relationship Specialty Start Date End Date Parag Bradley MD [address] [place] [phone] PCP - [facility] 08/14/22 Анна Ha NP [address] [place] [address] [facility] 08/25/23 Button Station Worker Relationship Specialty Start Date End Date Parag Bradley MD [address] [place] [phone] [facility] 08/14/22 Анна Ha NP [address] [place] [phone] [facility] 08/25/23 Button Station Worker Relationship Specialty Start Date End Date Parag Bradley MD [address] [place] [phone] [facility] 08/14/22 Анна Ha NP [address] [place] [phone] [facility] 08/25/23 Goals (unrecognized section and [...] THE PRIMARY CLINICAL RECORDS. [facility] [employer] provides no warranty or guarantee of the accuracy or completeness of information in this document.
== END 2024-09-02 19:20 | disposition home or self-care (01) ==
LOC: LAB 19:19
PROVIDERS: PCP Nurse Practitioner; Visit Provider Obstetrics & Gynecology
DX: Z34.93 Encounter for supervision of normal pregnancy, unspecified, third trimester (principal)
CPT/HCPCS: 87081

== ENCOUNTER 2024-09-04 20:57 | Outpatient (OUT) | payer OTHER, SELFPAY ==
--- OUTSIDE RECORDS SUMMARY | 2024-04-05 11:45 | XMS_ITS ---
[facility] [address] [place] [address] Care Team Providers Care Pharmacy Operations Specialist Name Role Phone Naida Valera Primary Care Provider REASON FOR VISIT EXT Encounters Encounter Location Date Provider Diagnosis [facility] [address] [place] [address] 04/05/2024 Naida Valera Plan Of Treatment Next Appt Details Provider Name:Naida ruff, 11/12/2024 10:30:00 AM, [address] [facility] [place], [address], Progress Notes * ROXANNE ROGERS DDOB: 9 (34 yo F)Acc No.[id number]:04/05/2024 Patient: ROXANNE KENNY Provider: Elizabeth Valera DDS :1990 A ge:33 Y S ex:Female Date:04/05/2024 Address:[address] [place], [place] [phone] Subjective: * Chief Complaints: * 1 . EXT. * Medical History: Objective: * Vitals: Assessment: Plan: * Treatment: * Images: * Electronic signature of Harjit Valera DDS on 09/04/2024 at 09:00 PM EDT Sign off status: Pending * Provider: Elizabeth Valera DDS Date: 0 04/05/2024 Generated for Adam son/Makenzie/Chet on: 0 09/04/2024 09:00 PM EDT
--- OUTSIDE RECORDS SUMMARY | 2024-04-19 09:00 | XMS_ITS ---
[facility] Organization [facility] [address] [place] [address] Care Team Providers Care Industrial Sales Representative Name Role Phone Naida Valera Primary Care Provider REASON FOR VISIT FILLING Encounters Encounter Location Date Provider Diagnosis [facility] [address] [place] [address] 04/19/2024 Naida Valera Plan Of Treatment Next Appt Details Provider Name:Naida ruff, 11/12/2024 10:30:00 AM, [address] [facility] [address] [place] [place], [address], Progress Notes * ROXANNE ROGERS DDOB: 9 (34 yo F)Acc No.[id number]:04/19/2024 Patient: ROXANNE KENNY Provider: Elizabeth Valera DDS :1990 A ge:33 Y S ex:Female Date:04/19/2024 Address:[address] [place], [place] [phone] Subjective: * Chief Complaints: * 1 . FILLING. * Medical History: Objective: * Vitals: Assessment: Plan: * Treatment: * Images: * Electronic signature of Harjit Valera DDS on 09/04/2024 at 09:00 PM EDT Sign off status: Pending * Provider: Elizabeth Valera DDS Date: 0 04/19/2024 Generated for Adam son/Makenzie/Chet on: 0 09/04/2024 09:00 PM EDT
--- OUTSIDE RECORDS SUMMARY | 2024-09-02 10:40 | XMS_ITS | Encounter Summary ---
Author Organization [facility] Address [address] [place] [address] Care Team Providers Care Shortage Worker Name Role Phone Parag Bradley MD Primary Care Provider [phone] Анна Ha NP Unavailable [phone] Reason for Visit * Reason Comments Routine Visit Encounter Details Date Type Department Care Team (Latest Contact Info) Description 09/02/2024 10:40 AM EDT Routine [facility] [address] [place] [address] Slava Castro, DO [address] [place], [facility] 36 weeks gestation of ([facility]); Third trimester ([facility]); History of gestational diabetes; Antepartum multigravida of advanced maternal age ([facility]) Social History Tobacco Use Types Packs/Day Years [...] How often do you attend chur or scientology services? More than 4 times [...] Recorded Patient Health Questionnaire-2 Score 0 08/06/2024 [facility] [place] of Occupat ional Health - Occupational Stress [...] a long term (including now)? No 05/19/2023 Housing Stability Vital Sign Answer Leonidas e Recorded In the last 12 months, was t here a time when you were not able to pay the mortgage or rent on time? No 08/31/2024 In the past 12 months, how m any times have you moved where you were living? 0 08/31/2024 At any time in the past 12 m [facility], were you homeless or living in a long term (including now)? No 08/31/2024 Estimated Date of [...] nursing note reviewed. Exam conducted with a assistant therapy aide present. Vitals: Estimated body mass index is 33.6 kg/m?? as calculated from the following: Height as of 24: 5' 1 . Weight as of this encounter: 177 lb 12.8 oz. BP: 120/70 Patient's last menstrual period was 12/11/2023. ASSESSMENT & PLAN ICD-10-CM 1. 36 weeks gestation of ([facility]) Z3A.36 POCT urinalysis dipstick manually resulted 2. Third trimester ([facility]) Z34.93 POCT urinalysis dipstick manually resulted CULTURE, GROUP B STREP WITH SUSCEPTIBLITY CULTURE, GROUP B STREP WITH SUSCEPTIBLITY 3. History of gestational diabetes Z86.32 4. Antepartum multigravida of advanced maternal age ([facility]) O09.529 Patient is doing well but has [...] Office Visit [facility] [address] [place] [address] Анна Ha NP [address] [place] [address] 09/09/2024 11:50 AM EDT Routine [facility] [address] [facility] [place] [address] Slava Castro DO [address] [place] [address] 12/15/2024 3:00 PM EDT Office Visit [facility] OB [address] [place] [address] Slava Castro, [address] [place] [address] [place] [address] Scheduled Orders Name Type Priority Associated Diagnoses Orde r Schedule CULTURE, GROUP B STREP WITH SUSCEPTIBLITY Lab Routine Third trimester ([facility]) Expected: 09/02/2024, Expires: 09/02/2025 documented as of this encounter Goals Goal Patient Goal Type Associated Problems Recent Progress Patient-Stated? Author Reminders Care Plan OB Reminders No Open Scheduling, Background documented as of this encounter Procedures Procedure Name Priority Date/Time Associated Diagnosis Comments POCT URINALYSIS DIPSTICK Routine 09/02/2024 10:53 AM EDT 36 weeks gestation of ([facility]) Third trimester ([facility]) documented in this encounter Results * (ABNORMAL) [...] Visit Diagnoses Diagnosis 36 weeks gestation of ([facility]) Third trimester ([facility]) state, incidental History of gestational diabetes Personal history of other genital system and obstetric disorders Antepartum multigravida of advanced maternal age ([facility]) documented in this encounter Additional Health Concerns Active Problems Noted Date Diagnosed Date OB Reminders 02/11/2024 documented as of this encounter Care Teams Shortage Worker Relationship Specialty Start Date End Date Parag Bradley MD [address] [place] [address] PCP - General Family Medicine 08/14/22 Анна Ha NP [address] [place] [address] PCP - [facility] 08/25/23 documented as of this encounter
--- OUTSIDE RECORDS SUMMARY | 2024-09-04 21:00 | XMS_ITS | Encounter Summary ---
Author Organization [facility] Address [address] [place] [address] Care Team Providers Care Broadcast Transmitter Operator Name Role Phone Parag Bradley MD Primary Care Provider [phone] Анна Ha NP Unavailable [phone] Encounter Details Date Type Department Care [...] any clubs o r organizations such as evangelical groups, unions, fraternal or athletic groups, or [...] 0 08/06/2024 [facility] - Occupational Stress Questionnaire Answer [...] in a fpc (including now)? No 05/19/2023 Housing Stability Vital Sign Answer Leonidas e Recorded In the last 12 months, was t here a time when you were not able to pay the mortgage or rent on time? No 08/31/2024 In the past 12 months, how m any times have you moved where you were living? 0 08/31/2024 At any time in the past 12 m [facility], were you homeless or living in a fpc (including now)? No 08/31/2024 Estimated Date of [...] [facility] [address] [place] [address] Анна Ha, VÍCTOR [address] [place] [address] 09/09/2024 11:50 AM EDT Routine [facility] [address] [place] [phone] Slava Castro, DO [address] [place], [place] [id number] 12/15/2024 3:00 PM EDT Office Visit [facility] [address] [place] [address] Slava Castro, DO [address] [place] [address] documented as of this encounter Goals Goal Patient Goal Type Associated Problems Recent Progress Patient-Stated? Author Reminders Care Plan OB Reminders No Open Scheduling, Background documented as of this encounter Visit Diagnoses Not on filedocumented in this encounter Additional Health Concerns Active Problems Noted Date Diagnosed Date OB Reminders 02/11/2024 documented as of this encounter Care Teams Broadcast Transmitter Operator Relationship Specialty Start Date End Date Parag Bradley MD [address] [place] [address] PCP - General Family Medicine 08/14/22 Анна Ha NP [address] [place] [address] PCP - [facility] 08/25/23 documented as of this encounter
--- OUTSIDE RECORDS SUMMARY | 2024-09-04 21:00 | XMS_ITS | Encounter Summary ---
Author Organization [facility] Address [address] [place] [address] Care Team Providers Care Laboratory Miller Name Role Phone Parag Bradley MD Primary Care Provider Анна Ha NP Unavailable [phone] Encounter Details Date Type Department Care Team (Late st Contact Info) Description 06/23/2023 Orders Only [facility] [address] [facility] [place] [address] Slava Castro, DO [address] [facility] [address] [place], [place] [address] Social History Tobacco Use Types Packs/Day Years [...] Recorded Patient Health Questionnaire-2 Score 0 05/26/2023 [facility] - Occupational Stress Questionnaire Answer Date Recorded [...] [facility] FM [address] [place] [address] Анна Ha NP [address] [place] [address] 09/09/2024 11:50 AM EDT Routine [facility] OB [address] [place] [address] Slava Castro [address] [place], [place] [address] 12/15/2024 3:00 PM EDT Office Visit [facility] OB [address] [place] [address] Slava Castro DO [address] [place] [address] [place], [place] [address] documented as of this encounter Procedures Procedure [...] on filedocumented in this encounter Care Teams Laboratory Miller Relationship Specialty Start Date End Date Parag Bradley MD [address] [place] [address] PCP - General Family Medicine 08/14/22 Анна Ha NP [address] [place] [address] PCP - [facility] 08/25/23 documented as of this encounter
--- OUTSIDE RECORDS SUMMARY | 2024-09-04 21:00 | XMS_ITS | Encounter Summary ---
Author Organization [facility] Address [address] [place] [address] Care Team Providers Care Aircraft Avionics Technician Name Role Phone Parag Bradley MD Primary Care Provider [phone] Анна Ha SQL SERVER BI DEVELOPER Unavailable [phone] Reason for Visit * Reason Onset Date Comments Med Refill 08/22/2024 Encounter Details Date Type Department Care Team (Late st Contact Info) Description 08/22/2024 Refill [facility] [address] [place] [address] Анна Ha, SQL SERVER BI DEVELOPER [address] [place] [address] Primary insomnia Social History Tobacco [...] How often do you attend chur or gnosticism services? More than 4 times [...] Recorded Patient Health Questionnaire-2 Score 0 08/06/2024 [facility] - Occupational Stress Questionnaire Answer [...] 09/07/2024 1:00 PM EDT Office Visit [facility] [address] [place] [address] Анна Ha, VÍCTOR [address] [place] [address] 09/09/2024 11:50 AM EDT Routine [facility] [address] [place] [address] Slava Castro, [address] [place], [place] [address] 12/15/2024 3:00 PM EDT Office Visit [facility] OB [address] [place] [address] Slava Castro DO [address] [place] [address] documented as of this encounter Goals [...] documented as of this encounter Care Teams Aircraft Avionics Technician Relationship Specialty Start Date End Date Parag Bradley MD [address] [place] [address] PCP - General Family Medicine 08/14/22 Анна Ha NP [address] [place] [address] PCP - [facility] 08/25/23 documented as of this encounter
--- OUTSIDE RECORDS SUMMARY | 2024-09-04 21:00 | XMS_ITS | Encounter Summary ---
Author Organization [facility] Address [address] [place] [address] Care Team Providers Care Summer Analyst Name Role Phone Parag Bradley MD Primary Care Provider [phone] Анна Ha NP Unavailable [phone] Encounter Details Date Type Department Care [...] any clubs o r organizations such as gnosticist groups, unions, fraternal or athletic groups, or [...] Recorded Patient Health Questionnaire-2 Score 0 05/26/2023 [facility] of Occupat ional [facility] - Occupational Stress Questionnaire Answer Date Recorded [...] health care facility (including now)? No 05/19/2023 Comments Unknown Sex [...] CWM FM [address] [place] [address] Анна Ha, OFFAL WORKER [address] [place] [address] 09/09/2024 11:50 AM EDT Routine [facility] OB [address] [facility] [place] [address] Orlin Castro, [address] [place], [place] [address] 12/15/2024 3:00 PM EDT Office Visit [facility] OB [address] [place] [address] Orlin Castro, [address] [place], [place] [address] documented as of this encounter Procedures Procedure Name Priority Date/Time Associated Diagnosis Comments US OB TRANSVAGINAL 06/13/2023 11 :13 AM EDT [facility] PREG QUANT HCG Routine 06/13/2023 10 :49 AM EDT documented in this encounter Results * US OB TRANSVAGINAL (06/13/2023 11:13 AM EDT) Anatomical Region Laterality Modality Other 06/13/2023 11:1 3 AM EDT Narrative 06/13/2023 11:16 [place] [address] Ultrasound Report Signed Patient: ROXANNE MARSHALL MR#: [id number] : 1990 Acct:[id number] Age/Sex: 32 / F ADM Date: 06/13/23 Loc: [facility] Attending Dr: Orlin Castro D.O. Ordering Physician: Orlin Castro D.O. Date of Service: 06/13/23 Procedure(s): US OB transvaginal Accession Number(s): [id number] cc: Анна Ha OFFAL WORKER; Orlin Castro D.O. [place] [id number] Patient Name: ROXANNE MARSHALL MRN: [id number] date: 1990 Sex: F Assigned Patient Location: [facility] Current Patient Location: [facility] Accession/Order Number: [id number] Exam Date: 06/13/2023 09:58 Report Date: 06/13/2023 [...] Signed By: 06/13/23 1116 DD/ 1113 TD/TT: Butcherette: Procedure Note Radiology, Radiologist, MD - 06/13/2023 [place] [address] Ultrasound Report Signed Patient: ROXANNE MARSHALL DMR#: [id number] : 1990Acct:[id number] Age/Sex: 32 / FADM Date: 06/13/23 Loc: [facility] Attending Dr: Orlin Castro D.O. Ordering Physician: Orlin Castro D.O. Date of Service: 06/13/23 Procedure(s): US OB transvaginal Accession Number(s): [id number] cc: Анна Ha OFFAL WORKER; Orlin Castro D.O. The [place] [address] Patient Name: ROXANNE MARSHALL MRN: [id number] date: 1990 Sex: F Assigned Patient Location: [facility] Current Patient Location: [facility] Accession/Order Number: [id number] Exam Date: 06/13/2023 09:58 Report Date: 06/13/2023 [...] M.D. Signed By:06/13/23 1116 DD/ 1113 TD/TT: Butcherette: us Generic External Data Provider [facility] [...] [facility] F inal Result Performing Organization Address City/State/[facility] Co de Phone Number [facility] TB documented in this encounter Visit Diagnoses Not on filedocumented in this encounter Care Teams Summer Analyst Relationship Specialty Start Date End Date Parag Bradley MD [address] [place] [address] PCP - General Family Medicine 08/14/22 Анна Ha NP [address] [place] [address] PCP - [facility] 08/25/23 documented as of this encounter
--- OUTSIDE RECORDS SUMMARY | 2024-09-04 21:00 | XMS_ITS | Encounter Summary ---
Author Organization [facility] Address [address] [place] [address] Care Team Providers Care Home Health Specialist Name Role Phone Parag Bradley MD Primary Care Provider [phone] Анна Ha NP Unavailable [phone] Encounter Details Date Type Department Care [...] often do you attend chur ch or buddhism services? More than 4 times [...] 0 05/26/2023 [facility] of Occupat ional [facility] - Occupational Stress Questionnaire Answer Date [...] [facility] [address] [place] [address] Анна Ha, POLICE RESERVES COMMANDER [address] [place] [address] 09/09/2024 11:50 AM EDT Routine [facility] OB [address] [place] [address] Orlin Castro, [facility] [address] [place], [place] [address] 12/15/2024 3:00 PM EDT Office Visit [facility] OB [address] [place] [address] Orlin Castro, [address] [place], [place] [address] documented as of this encounter Procedures Procedure Name Priority Date/Time Associated Diagnosis Comments US OB TRANSVAGINAL 06/26/2023 10 :14 AM EDT documented in this encounter Results * US OB TRANSVAGINAL (06/26/2023 10:14 AM EDT) Anatomical Region Laterality Modality Other 06/26/2023 10:1 4 AM EDT Narrative 06/26/2023 10:16 AM EDT The [address] [address] Ultrasound Report Signed Patient: ROXANNE MARSHALL MR#: [id number] : 1990 Acct:[id number] Age/Sex: 32 / F ADM Date: 06/26/23 Loc: [facility] Attending Dr: Orlin Castro D.O. Ordering Physician: Orlin Castro D.O. Date of Service: 06/26/23 Procedure(s): US OB transvaginal Accession Number(s): [id number] cc: Анна Ha NP; Orlin Castro D.O. The [address] [address] Patient Name: ROXANNE MARSHALL MRN: [id number] date: 1990 Sex: F Assigned Patient Location: [facility] Current Patient Location: [facility] Accession/Order Number: [id number] Exam Date: 06/26/2023 09:09 Report Date: 06/26/2023 [...] Signed By: 06/26/23 1016 DD/ 1014 TD/TT: Research Management Associate: Procedure Note Radiology, Radiologist, - 06/26/2023 [place] [address] Ultrasound Report Signed Patient: ROXANNE MARSHALL DMR#: [id number] : 1990Acct:[id number] Age/Sex: 32 / FADM Date: 06/26/23 Loc: [facility] Attending Dr: Orlin Castro D.O. Ordering Physician: Orlin Castro D.O. Date of Service: 06/26/23 Procedure(s): US OB transvaginal Accession Number(s): [id number] cc: Анна Ha POLICE RESERVES COMMANDER; Orlin Castro D.O. [place] [address] Patient Name: ROXANNE MARSHALL MRN: [id number] date: 1990 Sex: F Assigned Patient Location: [facility] Current Patient Location: [facility] Accession/Order Number: [id number] Exam Date: 06/26/2023 09:09 Report Date: 06/26/2023 [...] M.D. Signed By:06/26/23 1016 DD/ 1014 TD/TT: Research Management Associate: us Generic External Data Provider [facility] Final Result documented in this encounter Visit Diagnoses Not on filedocumented in this encounter Care Teams Home Health Specialist Relationship Specialty Start Date End Date Parag Bradley MD [address] [place] [address] PCP - General Family Medicine 08/14/22 Анна Ha NP [address] [place] [address] PCP - [facility] 08/25/23 documented as of this encounter
--- OUTSIDE RECORDS SUMMARY | 2024-09-04 21:00 | XMS_ITS | Encounter Summary ---
Author Organization [facility] Address [address] [place] [address] Care Team Providers Care Procurement Officer Name Role Phone Parag Bradley MD Primary Care Provider [phone] Анна Ha NP Unavailable [phone] Encounter Details Date Type Department Care [...] How often do you attend chur or spiritism services? More than 4 times [...] Recorded Patient Health Questionnaire-2 Score 0 08/06/2024 [facility] of Occupat ional Health - Occupational Stress [...] in a chcf (including now)? No 05/19/2023 Estimated Date of [...] [facility] [address] [place] [address] Анна Ha NP [address] [place] [address] 09/09/2024 11:50 AM EDT Routine [facility] OB [address] [place] [address] Slava Castro, DO [address] [place] [address] 12/15/2024 3:00 PM EDT Office Visit [facility] OB [address] [place] [address] Slava Castro, DO [address] [place], [place] [address] documented as of this encounter Goals Goal Patient Goal Type Associated Problems Recent Progress Patient-Stated? Author Reminders Care Plan OB Reminders No Open Scheduling, Background documented as of this encounter Visit Diagnoses Not on filedocumented in this encounter Additional Health Concerns Active Problems Noted Date Diagnosed Date OB Reminders 02/11/2024 documented as of this encounter Care Teams Procurement Officer Relationship Specialty Start Date End Date Parag Bradley MD [address] [place] [address] PCP - General Family Medicine 08/14/22 Анна Ha NP [address] [place] [address] [facility] 08/25/23 documented as of this encounter
--- OUTSIDE RECORDS SUMMARY | 2024-09-04 21:00 | XMS_ITS | Patient Health Record ---
Author Organization [facility] es Address [address] [place] [address] Care Team Providers Care Airport Baggage Screener Name Role Phone Naida Valera Primary Care Provider Reason For Referral No Information Medications Medication SIG (Take, Route, Frequency, Duration) Notes Start Date End Date Status Zoloft Unknown TRAZODONE Unknown Acetaminophen Extra Strength 500 MG 1 tablet as needed Orally every 6 hrs 01/02/2024 Active Encounters Encounter Location Date Provider Diagnosis [place] [address] [place] [address] 12/25/2023 Naida Valera Cracked tooth K03 .81 [facility] [address] [place] [address] 12/29/2023 Naida Valera Encounter for den mercy examination and cleaning with abnormal findings Z01.21 [facility] [address] [place] [address] 01/02/2024 Naida Valera Encounter for den mercy examination and cleaning with abnormal findings Z01.21 Assessments Encounter Date Diagnosis (ICD Code) Assessment Notes Treatment Notes Treatment Clinical Notes Section Notes 12/29/2023 Encounter for dental examination and cleaning with abnormal findings (ICD-10 - Z01.21) 01/02/2024 Encounter for dental examination and cleaning with abnormal findings (ICD-10 - Z01.21) 12/25/2023 Cracked tooth (ICD-10 - K03.81) Plan Of Treatment Next Appt Details Provider Name:Naida ruff, 11/12/2024 10:30:00 AM, [address] [place], [address], Insurance Providers Payer Name Payer Address Payer Phone Subscriber Number Group Number Insured Name Patient Relationship to Insured Coverage Start Date Coverage End Date DENTAL [employer] DHCT [address] [address] [place] [phone] [id number] ROXANNE ROGERS Self - patient is the insured 4 Secondary Dental [employer] [address] [address] [place] [address] [id number] ROXANNE ROGERS Self - patient is the insured 3 Dental Wrap [facility] [place] [address] [place] [address] [phone] [id number] ROXANNE ROGERS Self - patient is the insured 3
--- OUTSIDE RECORDS SUMMARY | 2024-09-04 21:00 | XMS_ITS | Encounter Summary ---
Author Organization [facility] Address [address] [place] [address] Care Team Providers Care Missileman Name Role Phone Parag Bradley MD Primary Care Provider [phone] Анна Ha NP Unavailable [phone] Encounter Details Date Type Department Care Team (Late st Contact Info) Description 06/16/2023 Orders Only [facility] [address] [place] [address] Slava Castro, DO [address] [facility] [address] Social History Tobacco Use Types Packs/Day Years [...] How often do you attend chur or anabaptism services? More than 4 times per year 05/19/2023 Do you belong to any clubs o r organizations such as sabianism groups, unions, fraternal or athletic groups, or [...] Recorded Patient Health Questionnaire-2 Score 0 05/26/2023 [facility] - Occupational Stress [...] [facility] [address] [place] [address] Анна Ha NP [address] [place] [address] 09/09/2024 11:50 AM EDT Routine [facility] OB [address] [place] [address] Slava Castro DO [address] [place] [address] [place], [place] [address] 12/15/2024 3:00 PM EDT Office Visit [facility] OB [address] [place] [address] Slava Castro DO [address] [place] [address] [place], [place] [address] documented as of this encounter Procedures Procedure [...] on filedocumented in this encounter Care Teams Missileman Relationship Specialty Start Date End Date Parag Bradley MD [address] [place] [address] PCP - General Family Medicine 08/14/22 Анна Ha NP [address] [place] [address] [facility] 08/25/23 documented as of this encounter
--- OUTSIDE RECORDS SUMMARY | 2024-09-04 21:00 | XMS_ITS | Encounter Summary ---
Author Organization [facility] Address [address] [place] [address] Care Team Providers Care Certified Orthotic Fitter Name Role Phone Parag Bradley MD Primary Care Provider [phone] Анна Ha NET SOFTWARE DEVELOPER Unavailable [phone] Reason for Visit * Reason Comments Med Refill Encounter Details Date Type Department Care Team (Late st Contact Info) Description 08/23/2024 Refill [facility] CW FM [address] [place] [address] Анна Ha, VÍCTOR [address] [place] [address] Primary insomnia Social History Tobacco [...] Patient Health Questionnaire-2 Score 0 08/06/2024 [facility] of Occupat ional [facility] [...] Office Visit [facility] [address] [place] [address] Анна Ha, VÍCTOR [address] [place] [address] 09/09/2024 11:50 AM EDT Routine [facility] OB [address] [place] [address] Slava Castro, DO [address] [place] [address] 12/15/2024 3:00 PM EDT [...] documented as of this encounter Care Teams Certified Orthotic Fitter Relationship Specialty Start Date End Date Parag Bradley MD [address] [place] [address] PCP - General Family Medicine 08/14/22 Анна Ha NP [address] [place] [address] PCP - [facility] 08/25/23 documented as of this encounter
--- OUTSIDE RECORDS SUMMARY | 2024-09-04 21:00 | XMS_ITS | Encounter Summary ---
Author Organization [facility] Address [address] [place] [address] Care Team Providers Care Business Management Intern Name Role Phone Parag Bradley MD Primary Care Provider Анна Ha NP Unavailable [phone] Encounter Details Date Type Department Care Team (Late st Contact Info) Description 07/26/2024 Abstract [facility] OB [address] [place] [address] Slava Castro, DO [address] [place], [facility] Social History Tobacco Use Types Packs/Day [...] Recorded Patient Health Questionnaire-2 Score 0 06/08/2024 [facility] of Occupat ional [facility] - Occupational Stress Questionnaire Answer Date [...] Office Visit [facility] [address] [place] [address] Анна Ha NP [address] [place] [address] 09/09/2024 11:50 AM EDT Routine [facility] OB [address] [place] [address] Slava Castro, DO [address] [place], [place] [address] 12/15/2024 3:00 PM EDT Office Visit [facility] OB [address] [place] [address] Slava Castro, DO [address] [place] [address] documented as of this encounter Goals Goal Patient Goal Type Associated Problems Recent Progress Patient-Stated? Author Reminders Care Plan OB Reminders No Open Scheduling, Background documented as of this encounter Visit Diagnoses Not on filedocumented in this encounter Additional Health Concerns Active Problems Noted Date Diagnosed Date OB Reminders 02/11/2024 documented as of this encounter Care Teams Business Management Intern Relationship Specialty Start Date End Date Parag Bradley MD [address] [place] [address] PCP - General Family Medicine 08/14/22 Анна Ha NP [address] [place] [address] PCP - [facility] 08/25/23 documented as of this encounter
--- OUTSIDE RECORDS SUMMARY | 2024-09-04 21:00 | XMS_ITS | Encounter Summary ---
Author Organization [facility] Address [address] [place] [address] Care Team Providers Care Caser In Name Role Phone Parag Bradley MD Primary Care Provider [phone] Анна Ha NP Unavailable [phone] Encounter Details Date Type Department Care [...] Recorded Patient Health Questionnaire-2 Score 0 05/26/2023 [facility] of Occupat ional [facility] - Occupational Stress Questionnaire Answer Date [...] Visit [facility] [address] [place] [address] Анна Ha, WOOD ENGRAVER [address] [place] [address] 09/09/2024 11:50 AM EDT Routine [facility] BCP OB [address] [place] [address] Orlin Castro, [facility] [address] [place], [place] [address] 12/15/2024 3:00 PM EDT Office Visit [facility] OB [address] [place] [address] Orlin Castro, [address] [place], [place] [address] documented as of this encounter Procedures Procedure Name Priority Date/Time Associated Diagnosis Comments US OB TRANSVAGINAL 06/20/2023 12 :10 PM EDT documented in this encounter Results * US OB TRANSVAGINAL (06/20/2023 12:10 PM EDT) Anatomical Region Laterality Modality Other 06/20/2023 12:1 0 PM EDT Narrative 06/20/2023 12:12 PM EDT The [address] [address] Ultrasound Report Signed Patient: ROXANNE MARSHALL MR#: [id number] : 1990 Acct:[id number] Age/Sex: 32 / F ADM Date: 06/20/23 Loc: [facility] Attending Dr: Orlin Castro D.O. Ordering Physician: Orlin Castro D.O. Date of Service: 06/20/23 Procedure(s): US OB transvaginal Accession Number(s): [id number] cc: Анна Ha NP; Orlin Castro D.O. [place] [address] Patient Name: ROXANNE MARSHALL MRN: [id number] date: 1990 Sex: F Assigned Patient Location: [facility] Current Patient Location: [facility] Accession/Order Number: [id number] Exam Date: 06/20/2023 08:31 Report Date: 06/20/2023 [...] Signed By: 06/20/23 1212 DD/ 1210 TD/TT: Extension Professor: Procedure Note Radiology, Radiologist, - 06/20/2023 [place] [address] Ultrasound Report Signed Patient: ROXANNE MARSHALL DMR#: [id number] : 1990Acct:[id number] Age/Sex: 32 / FADM Date: 06/20/23 Loc: [facility] Attending Dr: Orlin Castro D.O. Ordering Physician: Orlin Castro D.O. Date of Service: 06/20/23 Procedure(s): US OB transvaginal Accession Number(s): [id number] cc: Анна Ha WOOD ENGRAVER; Orlin Castro D.O. The [place] [address] Patient Name: ROXANNE MARSHALL MRN: [id number] date: 1990 Sex: F Assigned Patient Location: [facility] Current Patient Location: [facility] Accession/Order Number: [id number] Exam Date: 06/20/2023 08:31 Report Date: 06/20/2023 [...] M.D. Signed By:06/20/23 1212 DD/ 1210 TD/TT: Extension Professor: us Generic External Data Provider [facility] Final Result documented in this encounter Visit Diagnoses Not on filedocumented in this encounter Care Teams Caser In Relationship Specialty Start Date End Date Parag Bradley MD [address] [place] [address] PCP - General Family Medicine 08/14/22 Анна Ha NP [address] [place] [address] PCP - [facility] 08/25/23 documented as of this encounter
--- OUTSIDE RECORDS SUMMARY | 2024-09-04 21:00 | XMS_ITS | Encounter Summary ---
Author Organization [facility] Address [address] [place] [address] Care Team Providers Care Wood Science Professor Name Role Phone Parag Bradley MD Primary Care Provider Анна Ha NP Unavailable [phone] Encounter Details Date Type Department Care Team (Late st Contact Info) Description 06/26/2023 Orders Only [facility] [address] [facility] [place] [address] Slava Castro, DO [address] [facility] [address] [place], [place] [address] Social History Tobacco Use Types Packs/Day Years [...] How often do you attend chur or druze services? More than 4 times per year 05/19/2023 Do you belong to any clubs o r organizations such as latter day groups, unions, fraternal or athletic groups, or [...] Score 0 05/26/2023 [facility] - Occupational Stress Questionnaire Answer [...] [facility] [address] [place] [address] Анна Ha NP [address] [place] [address] 09/09/2024 11:50 AM EDT Routine [facility] OB [address] [place] [address] Slava Castro [address] [place], [place] [address] 12/15/2024 3:00 PM EDT Office Visit [facility] [address] [place] [address] Slava Castro DO [address] [place] [address] [place], [place] [address] documented as of this encounter Procedures Procedure [...] on filedocumented in this encounter Care Teams Wood Science Professor Relationship Specialty Start Date End Date Parag Bradley MD [address] [place] [address] PCP - General Family Medicine 08/14/22 Анна Ha NP [address] [place] [address] PCP - [facility] 08/25/23 documented as of this encounter
--- OUTSIDE RECORDS SUMMARY | 2024-09-04 21:00 | XMS_ITS | Encounter Summary ---
Author Organization [facility] Address [address] [place] [address] Care Team Providers Care Primary School Principal Name Role Phone Parag Bradley MD Primary Care Provider [phone] Анна Ha NP Unavailable [phone] Encounter Details Date Type Department Care [...] any clubs o r organizations such as pentecostalism groups, unions, fraternal or athletic groups, or [...] Recorded Patient Health Questionnaire-2 Score 0 08/06/2024 [facility] of Occupat ional [facility] - Occupational Stress Questionnaire Answer [...] [facility] [address] [place] [address] Анна Ha, VÍCTOR [address] [place] [address] 09/09/2024 11:50 AM EDT Routine [facility] OB [address] [place] [address] Slava Castro, DO [address] [place], [place] [address] 12/15/2024 3:00 PM EDT Office Visit [facility] OB [address] [place] [address] Slava Castro, DO [address] [place] [address] documented as of this encounter Goals [...] EDT Narrative 08/25/2024 11:35 AM EDT The [place] [id number] Ultrasound Report Signed Patient: ROXANNE MARSHALL MR#: [id number] : 1990 Acct:[id number] Age/Sex: 33 / F ADM Date: 08/25/24 Loc: [facility] 253-[address]: Vidya Jackson Ordering Physician: Vidya Jackson Date of Service: 08/25/24 Procedure(s): US OB BPP w non-stress Accession Number(s): [id number] cc: Анна Ha NP; Vidya Jackson The [place] [address] Patient Name: ROXANNE MARSHALL MRN: [id number] date: 1990 Sex: F Assigned Patient Location: [facility] Current Patient Location: [facility] Accession/Order Number: [id number] Exam Date: 08/25/2024 11:31 Report Date: 08/25/2024 [...] Auguste M.D. 08/25/2024 11:33 AM Dictation Location: [place] [address] Electronically authenticated by: [id number] Y Date: 08/25/2024 11:33 Dictated By: Isatu Auguste M.D. Signed By: 08/25/24 1135 DD/ 1133 TD/TT: Brewery Representative: Procedure Note Radiology, Radiologist, - 08/25/2024 [place] [address] Ultrasound Report Signed Patient: ROXANNE MARSHALL DMR#: [id number] : 1990Acct:[id number] Age/Sex: 33 / FADM Date: 08/25/24 Loc: [facility] 253-[address]: Vidya Jackson Ordering Physician: Vidya Jackson Date of Service: 08/25/24 Procedure(s): US OB BPP w non-stress Accession Number(s): [id number] cc: Анна Ha NP; Vidya Jackson The [place] [address] Patient Name: ROXANNE MARSHALL MRN: [id number] date: 1990 Sex: F Assigned Patient Location: [facility] Current Patient Location: [facility] Accession/Order Number: [id number] Exam Date: 08/25/2024 11:31 Report Date: 08/25/2024 [...] Auguste M.D. 08/25/2024 11:33 AM Dictation Location: [place] [address] Electronically authenticated by: [id number] Y Date: 1:33 Dictated By: Isatu Auguste M.D. Signed By:08/25/24 1135 DD/ 1133 TD/TT: Brewery Representative: us Generic External Data Provider [facility] Final Result documented in this encounter Visit Diagnoses Not on filedocumented in this encounter Additional Health Concerns Active Problems Noted Date Diagnosed Date OB Reminders 02/11/2024 documented as of this encounter Care Teams Primary School Principal Relationship Specialty Start Date End Date Parag Bradley MD [address] [place] [address] PCP - General Family Medicine 08/14/22 Анна Ha NP [address] [place] [address] PCP - [facility] 08/25/23 documented as of this encounter
--- OUTSIDE RECORDS SUMMARY | 2024-09-04 21:00 | XMS_ITS ---
Author Organization [facility] Address [address] [place] [address] Care Team Providers Care Application Dba Name Role Phone Parag Bradley MD Primary Care Provider [phone] Анна Ha NP Unavailable [phone] [facility] ([facility]) Status:Enrolled (Active) Start date:03/09/2024 Enrollment date:03/09/2024 Enrollment reason:Identified by Health Plan Case Team Name Relationship Phone Vidya Oliva LPN(Responsible Staff) Licensed [facility] Nurse [phone] Continued Care and Services Coordination
--- OUTSIDE RECORDS SUMMARY | 2024-09-04 21:00 | XMS_ITS | Encounter Summary ---
Author Organization [facility] Address [address] [place] [address] Care Team Providers Care Wanigan Clerk Name Role Phone Parag Bradley MD Primary Care Provider [phone] Анна Ha ASSOCIATE PROFESSOR OF PSYCHOLOGY Unavailable [phone] Encounter Details Date Type Department Care Team (Late st Contact Info) Description 08/04/2024 Abstract [facility] [address] [place] [address] Анна Ha, VÍCTOR [address] [place] [address] Social History Tobacco Use Types Packs/Day Years [...] Score 0 08/06/2024 [facility] - Occupational Stress Questionnaire Answer Date [...] place to sleep or slept in a nursing home (including now)? No 05/19/2023 Estimated Date [...] [facility] [address] [place] [address] Анна Ha NP [address] [place] [address] 09/09/2024 11:50 AM EDT Routine [facility] [address] [facility] [place] [address] Slava Castro, DO [address] [place], [place] [address] 12/15/2024 3:00 PM EDT Office Visit [facility] OB [address] [facility] [place] [address] Slava Castro, [address] [place] [address] [place] [address] documented as of this encounter Goals Goal Patient Goal Type Associated Problems Recent Progress Patient-Stated? Author Reminders Care Plan OB Reminders No Open Scheduling, Background documented as of this encounter Visit Diagnoses Not on filedocumented in this encounter Additional Health Concerns Active Problems Noted Date Diagnosed Date OB Reminders 02/11/2024 documented as of this encounter Care Teams Wanigan Clerk Relationship Specialty Start Date End Date Parag Bradley MD [address] [place] [address] PCP - General Family Medicine 08/14/22 Анна Ha NP [address] [place] [address] PCP - [facility] 08/25/23 documented as of this encounter
--- OUTSIDE RECORDS SUMMARY | 2024-09-04 21:01 | XMS_ITS | Encounter Summary ---
Author Organization [facility] Address [address] [place] [address] Care Team Providers Care Furniture Upholsterer Name Role Phone Parag Bradley MD Primary Care Provider [phone] Анна Ha NP Unavailable [phone] Encounter Details Date Type Department Care Team (Late st Contact Info) Description 09/01/2024 Clinisync Result Encounter [facility] External Department Unsolicited Vidya Jackson PA [address] [place] [address] [place] [address] Social History Tobacco Use Types Packs/Day Years [...] any clubs o r organizations such as tenriism groups, unions, fraternal or athletic groups, or [...] Recorded Patient Health Questionnaire-2 Score 0 08/06/2024 [facility] Answer [...] in a residential (including now)? No 05/19/2023 Housing Stability Vital Sign Answer Leonidas e Recorded In the last 12 months, was t here a time when you were not able to pay the mortgage or rent on time? No 08/31/2024 In the past 12 months, how m any times have you moved where you were living? 0 08/31/2024 At any time in the past [address] [facility], were you homeless or living in a residential (including now)? No 08/31/2024 Estimated Date of [...] Visit [facility] [address] [place] [address] Анна Ha NP [address] [place] [address] 09/09/2024 11:50 AM EDT Routine [facility] OB [address] [place] [address] [place] [address] Slava Castro, DO [address] [place] [address] 12/15/2024 3:00 PM EDT Office Visit [facility] OB [address] [place] [address] [place] [address] Slava Castro, DO [address] [place] [address] documented as of this encounter Goals Goal [...] EDT Narrative 09/01/2024 3:13 PM EDT The [address] [address] Ultrasound Report Signed Patient: ROXANNE MARSHALL MR#: [id number] : 1990 Acct:[id number] Age/Sex: 34 / F ADM Date: 09/01/24 Loc: US Attending Dr: Vidya Jackson Ordering Physician: Vidya Jackson Date of Service: 09/01/24 Procedure(s): US OB BPP w non-stress Accession Number(s): [id number] cc: Анна Ha NP; Vidya Jackson The [address] [address] Patient Name: ROXANNE MARSHALL MRN: [facility]:[id number] date: 1990 Sex: F Assigned Patient Location: [place] Current Patient Location: Accession/Order Number: [id number] Exam Date: 09/01/2024 15:10 Report Date: 09/01/2024 [...] Perez M.D. 09/01/2024 3:11 PM Dictation Location: [place] [address] Electronically authenticated by: [id number] Y Date: 09/01/2024 15:11 Dictated By: Emilio Perez D.O. Signed By: 09/01/24 1513 DD/ 10 TD/TT: Wind Project Manager: Procedure Note Radiology, Radiologist, MD - 09/01/2024 [place] [address] Ultrasound Report Signed Patient: ROXANNE MARSHALL DMR#: [id number] : 1990Acct:[id number] Age/Sex: 34 / FADM Date: 09/01/24 Loc: US Attending Dr: Vidya Jackson Ordering Physician: Vidya Jackson Date of Service: 09/01/24 Procedure(s): US OB BPP w non-stress Accession Number(s): [id number] cc: Анна Ha NP; Vidya Jackson The [address] [address] Patient Name: ROXANNE MARSHALL MRN: [id number] date: 1990 Sex: F Assigned Patient Location: [place] Current Patient Location: Accession/Order Number: [id number] Exam Date: 09/01/2024 15:10 Report Date: 09/01/2024 [...] Perez M.D. 09/01/2024 3:11 PM Dictation Location: [facility] Electronically authenticated by: [id number] Y Date: :11 Dictated By: Emilio Perez D.O. Signed By:09/01/24 1513 DD/ TD/TT: Wind Project Manager: us Vidya Jackson PA [facility] Final Result documented in this encounter Visit Diagnoses Not on filedocumented in this encounter Additional Health Concerns Active Problems Noted Date Diagnosed Date OB Reminders 02/11/2024 documented as of this encounter Care Teams Furniture Upholsterer Relationship Specialty Start Date End Date Parag Bradley MD [address] [place] [address] PCP - General Family Medicine 08/14/22 Анна Ha NP [address] [place] [address] PCP - [facility] 08/25/23 documented as of this encounter
--- OUTSIDE RECORDS SUMMARY | 2024-09-04 21:01 | XMS_ITS | Encounter Summary ---
Author Organization [facility] Address [address] [place] [address] Care Team Providers Care Machinist General Name Role Phone Parag Bradley MD Primary Care Provider [phone] Анна Ha NP Unavailable [phone] Encounter Details Date Type Department Care [...] often do you attend chur ch or quaker services? More than 4 times per year [...] Recorded Patient Health Questionnaire-2 Score 1 09/01/2023 [facility] of Occupat ional [facility] - Occupational Stress Questionnaire Answer [...] [facility] [address] [place] [address] Анна Ha, VÍCTOR [address] [place] [address] 09/09/2024 11:50 AM EDT Routine [facility] OB [address] [place] [address] Orlin Castro, DO [address] [place], [place] [address] 12/15/2024 3:00 PM EDT Office Visit [facility] OB [address] [place] [address] Orlin Castro, DO [address] [place], [place] [address] documented as of this encounter Goals Goal [...] AM EST Narrative 02/12/2024 4:31 [place] [address] Ultrasound Report Signed Patient: ROXANNE MARSHALL MR#: [id number] : 1990 Acct:[id number] Age/Sex: 33 / F ADM Date: 02/11/24 Loc: NOM[facility] Attending Dr: Orlin Castro D.O. Ordering Physician: Orlin Castro D.O. Date of Service: 02/11/24 Procedure(s): US OB transvaginal Accession Number(s): [id number] cc: Анна Ha COFFEE SHOP AIDE; Orlin Castro D.O. [address] [address] Patient Name: ROXANNE MARSHALL MRN: [id number] date: 1990 Sex: F Assigned Patient Location: [facility] Current Patient Location: Accession/Order Number: [id number] Exam Date: 02/11/2024 09:39 Report Date: 02/12/2024 [...] Signed By: 02/12/24 0431 DD/ 0429 TD/TT: Conciliator: Procedure Note Radiology, Radiologist, MD Herr 02/12/2024 [place] [address] Ultrasound Report Signed Patient: ROXANNE MARSHALL DMR#: [id number] : 1990Acct:[id number] Age/Sex: 33 / FADM Date: 02/11/24 Loc: NOMS Attending Dr: Orlin Castro D.O. Ordering Physician: Orlin Castro D.O. Date of Service: 02/11/24 Procedure(s): US OB transvaginal Accession Number(s): [id number] cc: Анна Ha COFFEE SHOP AIDE; Orlin Castro D.O. The [place] [id number] Patient Name: ROXANNE MARSHALL MRN: [id number]:[id number] date: 1990 Sex: F Assigned Patient Location: [facility] Current Patient Location: Accession/Order Number: [id number] Exam Date: 02/11/2024 09:39 Report Date: 02/12/2024 [...] M.D. Signed By:02/12/24 0431 DD/ 0429 TD/TT: Conciliator: us Generic External Data Provider [facility] Final Result documented in this encounter Visit Diagnoses Not on filedocumented in this encounter Additional Health Concerns Active Problems Noted Date Diagnosed Date OB Reminders 02/11/2024 documented as of this encounter Care Teams Machinist General Relationship Specialty Start Date End Date Parag Bradley MD [address] [place] [address] PCP - General Family Medicine 08/14/22 Анна Ha NP [address] [place] [address] PCP - [facility] 08/25/23 documented as of this encounter
--- OUTSIDE RECORDS SUMMARY | 2024-09-04 21:01 | XMS_ITS | Encounter Summary ---
Author Organization [facility] Address [address] [place] [address] Care Team Providers Care Survey Research Professor Name Role Phone Parag Bradley MD Primary Care Provider Анна Ha NP Unavailable [phone] Encounter Details Date Type Department Care Team (Late st Contact Info) Description 03/04/2024 Abstract [facility] OB [address] [place] [address] Slava Castro, DO [address] [place], [facility] Social History Tobacco Use [...] often do you attend chur ch or yazdanism services? More than 4 times per year [...] Patient Health Questionnaire-2 Score 1 09/01/2023 [facility] of Occupat ional [facility] - Occupational Stress Questionnaire Answer [...] Office Visit [facility] [address] [place] [address] Анна Ha NP [address] [place] [address] 09/09/2024 11:50 AM EDT Routine [facility] OB [address] [place] [address] Slava Castro, DO [address] [place], [place] [address] 12/15/2024 3:00 PM EDT Office Visit [facility] OB [address] [place] [address] Slava Castro, DO [address] [place] [address] documented as of this encounter Goals Goal Patient Goal Type Associated Problems Recent Progress Patient-Stated? Author Reminders Care Plan OB Reminders No Open Scheduling, Background documented as of this encounter Visit Diagnoses Not on filedocumented in this encounter Additional Health Concerns Active Problems Noted Date Diagnosed Date OB Reminders 02/11/2024 documented as of this encounter Care Teams Survey Research Professor Relationship Specialty Start Date End Date Parag Bradley MD [address] [place] [address] PCP - General Family Medicine 08/14/22 Анна Ha NP [address] [place] [address] PCP - [facility] 08/25/23 documented as of this encounter
--- OUTSIDE RECORDS SUMMARY | 2024-09-04 21:01 | XMS_ITS | Encounter Summary ---
Author Organization [facility] Address [address] [place] [address] Care Team Providers Care Professor Of Anthropology Name Role Phone Parag Bradley MD Primary Care Provider [phone] Анна aH NP Unavailable [phone] Encounter Details Date Type Department Care Team (Late Contact Info) Description 03/04/2023 Abstract [facility] [address] [place] [address] Анна Ha NP [address] [place] [address] Social History Tobacco Use Types Packs/Day Years [...] Upcoming Encounters Date Type Department Care Team ([facility] Contact Info) Description 09/07/2024 1:00 PM EDT Office Visit [facility] [address] [place] [address] Анна Ha NP [address] [place] [address] 09/09/2024 11:50 AM EDT Routine [facility] OB [address] [facility] [address] Slava Castro, DO [address] [facility] [address] [place], [place] [address] 12/15/2024 3:00 PM EDT Office Visit [facility] OB [address] [facility] [address] Slava Castro, DO [address] [facility] [place] [address] documented as of this encounter Visit Diagnoses Not on filedocumented in this encounter Care Teams Professor Of Anthropology Relationship Specialty Start Date End Date Parag Bradley MD [address] [place] [address] PCP - General Family Medicine 08/14/22 Анна Ha NP [address] [place] [address] PCP - [facility] 08/25/23 documented as of this encounter
--- OUTSIDE RECORDS SUMMARY | 2024-09-04 21:01 | XMS_ITS | Encounter Summary ---
Author Organization [facility] Address [address] [place] [address] Care Team Providers Care Demographic Analyst Name Role Phone Parag Bradley MD Primary Care Provider [phone] Анна Ha NP Unavailable [phone] Encounter Details Date Type Department Care Team (Late st Contact Info) Description 09/02/2024 Bamboo flowsheet [facility] OB [address] [place] [address] Slava Castro, DO [address] [place], [place] [address] Social History Tobacco Use Types Packs/Day Years [...] How often do you attend chur or orthodoxy services? More than 4 times [...] Recorded Patient Health Questionnaire-2 Score 0 08/06/2024 [facility] of Occupat ional Health - Occupational [...] in a halfway (including now)? No 05/19/2023 Housing Stability Vital Sign Answer Leonidas e Recorded In the last 12 months, was t here a time when you were not able to pay the mortgage or rent on time? No 08/31/2024 In the past 12 months, how m any times have you moved where you were living? 0 08/31/2024 At any time in the past 12 m [facility], were you homeless or living in a halfway (including now)? No 08/31/2024 Estimated Date of [...] Visit [facility] [address] [place] [address] Анна Ha NP [address] [place] [address] 09/09/2024 11:50 AM EDT Routine [facility] OB [address] [place] [address] [place] [address] Slava Castro, DO [address] [facility] [place] [address] 12/15/2024 3:00 PM EDT Office Visit [facility] OB [address] [place] [address] Slava Castro, DO [address] [facility] [address] [place], [place] [address] documented as of this encounter Goals Goal Patient Goal Type Associated Problems Recent Progress Patient-Stated? Author Reminders Care Plan OB Reminders No Open Scheduling, Background documented as of this encounter Visit Diagnoses Not on filedocumented in this encounter Additional Health Concerns Active Problems Noted Date Diagnosed Date OB Reminders 02/11/2024 documented as of this encounter Care Teams Demographic Analyst Relationship Specialty Start Date End Date Parag Bradley MD [address] [place] [address] PCP - General Family Medicine 08/14/22 Анна Ha NP [address] [place] [address] PCP - [facility] 08/25/23 documented as of this encounter
--- OUTSIDE RECORDS SUMMARY | 2024-09-04 21:01 | XMS_ITS | Encounter Summary ---
Author Organization [facility] Address [address] [place] [address] Care Team Providers Care Uke Operator Name Role Phone Parag Bradley MD Primary Care Provider [phone] Анна Ha NP Unavailable [phone] Encounter Details Date Type Department Care Team (Late st Contact Info) Description 02/11/2024 Abstract [facility] OB [address] [place] [address] Slava Castro, DO [address] [place], [facility] Social History Tobacco Use Types Packs/Day [...] often do you attend chur ch or moravian services? More than 4 times per year 05/19/2023 Do you belong to any clubs o r organizations such as presybeterian groups, unions, fraternal or athletic groups, or [...] Recorded Patient Health Questionnaire-2 Score 1 09/01/2023 [facility] of Occupat ional [facility] - Occupational [...] in a detention (including now)? No 05/19/2023 Estimated Date of [...] Office Visit [facility] [address] [place] [address] Анна Ha NP [address] [place] [address] 09/09/2024 11:50 AM EDT Routine [facility] OB [address] [place] [address] Slava Castro, DO [address] [place], [place] [address] 12/15/2024 3:00 PM EDT Office Visit [facility] OB [address] [place] [address] Slava Castro, DO [address] [place] [address] documented as of this encounter Goals Goal Patient Goal Type Associated Problems Recent Progress Patient-Stated? Author Reminders Care Plan OB Reminders No Open Scheduling, Background documented as of this encounter Visit Diagnoses Not on filedocumented in this encounter Additional Health Concerns Active Problems Noted Date Diagnosed Date OB Reminders 02/11/2024 documented as of this encounter Care Teams Uke Operator Relationship Specialty Start Date End Date Parag Bradley MD [address] [place] [address] PCP - General Family Medicine 08/14/22 Анна Ha NP [address] [place] [address] PCP - [facility] 08/25/23 documented as of this encounter
--- OUTSIDE RECORDS SUMMARY | 2024-09-04 21:01 | XMS_ITS | Clinical Summary ---
Author Organization [facility] Address [address] [place] [address] Care Team Providers Care Furniture Refinisher Name Role Phone Parag Bradley MD Primary Care Provider [phone] Анна Ha NP Unavailable [phone] Allergies Active Allergy Reactions Criticality Noted Date Comments Other 11/25/2022 Powder on gloves Other Reaction(s): rash/itching Medications MV-Min-Fe Fum-FA-DHA ( 1 PO) Take 1 each by mouth Daily Active aspirin 81 MG EC tablet Take 81 mg by mouth Daily Active omeprazole (PriLOSEC) [address] capsuleIndicat ions:Heartburn during in second trimester ([facility]) Take 1 capsule (20 mg) [...] Description 09/02/2024 10:40 AM EDT Routine [facility] [address] [address] Orlin Castro, 36 weeks gestation of ([facility]); Third trimester ([facility]); History of gestational diabetes; Antepartum multigravida of advanced maternal age ([facility]) 09/02/2024 Bamboo flowsheet [facility] [address] [place] [id number] Orlin Castro DO 09/01/2024 Clinisync Result Encounter [facility] External Department Unsolicited Vidya Jackson PA 09/01/2024 Patient Outreach [facility] [address] [place] [address] Vidya Oliva LPN 08/31/2024 Travel 08/27/2024 Travel 08/25/2024 Clinisync Result Encounter [facility] External Department Unsolicited Provider, Generic External Data 08/23/2024 Refill [facility] [address] [place] [address] Анна Ha NP Primary insomnia 08/22/2024 Refill [facility] [address] [place] [address] Анна Ha NP Primary insomnia 08/18/2024 9:30 AM EDT Routine [facility] [address] [place] [address] Ximena Carver NP Third trimester ([facility]); 34 weeks gestation of ([facility]) 08/18/2024 Clinisync Result Encounter [facility]OM[facility] External Department Unsolicited Provider, Generic External Data 08/18/2024 Bamboo flowsheet [facility] [address] [facility] [address] Ximena Carver NP 08/17/2024 Travel 08/13/2024 Clinisync Result Encounter [facility]OM[facility] External Department Unsolicited Provider, Generic External Data 08/11/2024 Clinisync Result Encounter [facility] External Department Unsolicited Vidya Jackson PA 08/06/2024 Patient Outreach [facility] [place] [address] [place] [address] Vidya Oliva LPN 08/04/2024 2:20 PM EDT Routine [facility] [address] [place] [address] Orlin Castro DO 32 weeks gestation of ([facility]); Third trimester ([facility]) 08/04/2024 Abstract [facility] [address] [place] [address] Анна Ha NP 08/04/2024 Clinisync Result Encounter [facility]OM[facility] External Department Unsolicited Provider, Generic External Data 08/03/2024 Travel 07/28/2024 Clinisync Result Encounter [facility]OM[facility] External Department Unsolicited Provider, Generic External Data 07/26/2024 Abstract [facility] [address] [place] [address] Orlin Castro DO 07/23/2024 Clinisync Result Encounter [facility]OM[facility] External Department Unsolicited Provider, Generic External Data 07/21/2024 2:20 PM EDT Routine [facility] [place] [address] [place] [address] Vidya Jackson PA Third trimester ([facility]); 30 weeks gestation of ([facility]); History of gestational diabetes 07/21/[address] [address] [place] [address] Lizzy Wood MA 07/17/2024 Clinisync Result Encounter NOMS External Department Unsolicited Provider, Generic External Data 07/14/2024 Travel 07/08/[address] [address] [place] [address] Leesa Coon MA 07/07/2024 Patient Outreach [facility] [address] [place] [address] Vidya Oliva LPN 07/06/2024 1:50 PM EDT Routine [facility] [place] [address] [place] [address] Orlin Castro DO Third trimester ([facility]); 28 weeks gestation of ([facility]); Elevated glucose tolerance test; Diabetes mellitus screening; SGA (small for gestational age) ([facility]) 07/06/2024 1:30 PM EDT Ancillary Procedure [facility] [place] [address] [place] [address] Antepartum multigravida of advanced maternal age ([facility]) 07/05/2024 Clinisync Result Encounter NOMS External Department Unsolicited Provider, Generic External Data 06/16/2024 1:20 PM EDT Routine [facility] [address] [place] [address] Ximena Carver, VÍCTOR Second trimester ([facility]); 25 weeks gestation of ([facility]); Screen for STD (sexually transmitted disease); Diabetes mellitus screening; Antepartum multigravida of advanced maternal age ([facility]) 06/16/2024 External Result Encounter [facility]OMS External Department Unsolicited Gloria Orlin, 06/16/2024 Bamboo flowsheet [facility] [address] [address] Ximena Carver, VÍCTOR 06/15/2024 Travel 06/08/2024 Patient Outreach [facility] [address] [place] [address] Vidya Oliva LPN from Last 3 Months Immunizations Immunization Administration [...] How often do you attend chur or yazidi services? More than 4 times per year 08/31/2024 Do you belong to any clubs o r organizations such as jehovah's witness groups, unions, fraternal or athletic groups, or [...] Recorded Patient Health Questionnaire-2 Score 0 08/06/2024 [facility] [place] of Occupat ional Health - Occupational Stress [...] a nursing home (including now)? No 05/19/2023 Housing Stability [...] any time in the past 12 m [facility], were you homeless or living in a nursing home (including now)? No 08/31/2024 Estimated Date [...] Visit [facility] [address] [place] [address] Анна Ha, PROJECT ARCHIVIST [address] [place] [address] 09/09/2024 11:50 AM EDT Routine [facility] [address] [place] [address] Orlin Castro, DO [address] [place] [address] 12/15/2024 3:00 PM EDT Office Visit [facility] [address] [place] [address] Orlin Castro, DO [address] [place] [address] Health Maintenance Due Date Last Done Comments Cervical Cancer Screening 12/09/2028 HPV/Cotest 12/09/2028 Pap Smear 12/09/2028 12/10/2023, 11/25/2022 Influenza Vaccine Discontinued 12/08/2017 Goals Goal Patient Goal Type Associated Problems Recent Progress Patient-Stated? Author Reminders Care Plan OB Reminders No Open Scheduling, Background Procedures Procedure Name Priority Date/Time Associated Diagnosis Comments POCT URINALYSIS DIPSTICK Routine 09/02/2024 10:53 AM EDT 36 weeks gestation of ([facility]) Third trimester ([facility]) US OB BPP W NON-STRESS 09/01/2024 3:11 PM EDT US OB BPP W NON-STRESS 08/25/2024 11:33 AM EDT US OB BPP W NON-STRESS 08/18/2024 11:48 AM EDT POCT URINALYSIS DIPSTICK Routine 08/18/2024 10:28 AM EDT Third trimester ([facility]) US OB BPP W NON-STRESS 08/13/2024 5:27 PM EDT US OB BPP W NON-STRESS 08/11/2024 12:20 PM EDT POCT URINALYSIS DIPSTICK Routine 08/04/2024 2:36 PM EDT 32 weeks gestation of ([facility]) Third trimester ([facility]) US OB BPP W NON-STRESS 08/04/2024 11:43 AM EDT US OB GROWTH 07/28/2024 10:48 AM EDT GLUCOSE TOLERANCE 3 HOUR Routine 07/23/2024 9:09 AM EDT GLUCOSE 1 HOUR Routine 07/17/2024 9:48 AM EDT POCT URINALYSIS DIPSTICK Routine 07/06/2024 2:18 PM EDT Third trimester ([facility]) US OB FOLLOW UP TRANSABDOMINAL APPROACH Routine 07/06/2024 2:04 PM EDT Antepartum multigravida of advanced maternal age ([facility]) GLUCOSE 1 HOUR Routine 07/05/2024 10:48 AM EDT ALL CBC WITH AUTO DIFF Routine 10:48 AM EDT RECURRENT VAGINITIS (HTRX) Routine 06/16/2024 2:27 PM EDT POCT URINALYSIS DIPSTICK Routine 06/16/2024 1:50 PM EDT Second trimester ([facility]) PAP SMEAR Routine 12/10/2023 12:00 AM [...] Positive Urine 09/02/2024 10:5 3 AM EDT Orlin Castro DO POINT OF CARE TEST ENTER/EDIT OR DERABLES Final Result * US OB BPP W NON-STRESS (09/01/2024 3:11 PM EDT) Only the most recent of6 resultswithin the time period is included. Anatomical Region Laterality Modality Other 09/01/2024 3:11 PM EDT Narrative 09/01/2024 3:13 [place] [address] Ultrasound Report Signed Patient: ROXANNE MARSHALL MR#: [id number] : 1990 Acct:[id number] Age/Sex: 34 / F ADM Date: 09/01/24 Loc: US Attending Dr: Vidya Jackson Ordering Physician: Vidya Jackson Date of Service: 09/01/24 Procedure(s): US OB BPP w non-stress Accession Number(s): [id number] cc: Анна Ha NP; Vidya Jackson [address] [place] [address] Patient Name: ROXANNE MARSHALL MRN: [id number] date: 1990 Sex: F Assigned Patient Location: US Current Patient Location: Accession/Order Number: [id number] Exam Date: 09/01/2024 15:10 Report Date: 09/01/2024 [...] Perez M.D. 09/01/2024 3:11 PM Dictation Location: [place] [address] Electronically authenticated by: [id number] Y Date: 09/01/2024 15:11 Dictated By: Emilio Perez D.O. Signed By: 09/01/24 151 DD/ 10 TD/TT: Forest Technology Professor: Procedure Note Radiology, Radiologist, - 09/01/2024 The [place] [id number] Ultrasound Report Signed Patient: ROXANNE MARSHALL DMR#: [id number] : 1990Acct:[id number] Age/Sex: 34 / FADM Date: 09/01/24 Loc: US Attending Dr: Vidya Jackson Ordering Physician: Vidya Jackson Date of Service: 09/01/24 Procedure(s): US OB BPP w non-stress Accession Number(s): [id number] cc: Анна Ha NP; Vidya Jackson [place] [id number] Patient Name: ROXANNE MARSHALL MRN: [id number] date: 1990 Sex: F Assigned Patient Location: US Current Patient Location: Accession/Order Number: [id number] Exam Date: 09/01/2024 15:10 Report Date: 09/01/2024 [...] Perez M.D. 09/01/2024 3:11 PM Dictation Location: [place] [address] Electronically authenticated by: [id number] Y Date: 5:11 Dictated By: Emilio Perez D.O. Signed By:09/01/24 1513 DD/ 1511 TD/TT: Forest Technology Professor: us Vidya DESAI [facility] Final Result * US OB GROWTH (07/28/2024 10:48 AM EDT) Anatomical Region Laterality Modality Other 07/28/2024 10:4 8 AM EDT Narrative 07/28/2024 10:51 [place] [address] Ultrasound Report Signed Patient: ROXANNE MARSHALL MR#: [id number] : 1990 Acct:[id number] Age/Sex: 33 / F ADM Date: 07/28/24 Loc: US Attending Dr: Orlin Castro D.O. Ordering Physician: Orlin Castro D.O. Date of Service: 07/28/24 Procedure(s): US OB growth Accession Number(s): [id number] cc: Анна Ha PROJECT ARCHIVIST; Orlin Castro D.O. [place] [address] [address] [place] [address] Patient Name: ROXANNE MARSHALL MRN: [id number] date: 1990 Sex: F Assigned Patient Location: US Current Patient Location: US Accession/Order Number: [id number] Exam Date: 07/28/2024 10:44 Report Date: 07/28/2024 [...] Auguste M.D. 07/28/2024 10:48 AM Dictation Location: [place] [address] Electronically authenticated by: [id number] Y Date: 07/28/2024 10:48 Dictated By: Isatu Auguste M.D. Signed By: 07/28/24 1051 DD/ 1048 TD/TT: Forest Technology Professor: Procedure Note Radiology, Radiologist, - 07/28/2024 [place] [address] Ultrasound Report Signed Patient: ROXANNE MARSHALL DMR#: [id number] : 1990Acct:[id number] Age/Sex: 33 / FADM Date: 07/28/24 Loc: US Attending Dr: Orlin Castro D.O. Ordering Physician: Orlin Castro D.O. Date of Service: 07/28/24 Procedure(s): US OB growth Accession Number(s): [id number] cc: Анна Ha PROJECT ARCHIVIST; Orlin Castro D.O. [address] [place] [address] Patient Name: ROXANNE MARSHALL MRN: [id number] date: 1990 Sex: F Assigned Patient Location: US Current Patient Location: US Accession/Order Number: [id number] Exam Date: 07/28/2024 10:44 Report Date: 07/28/2024 [...] Auguste M.D. 07/28/2024 10:48 AM Dictation Location: [place] [address] Electronically authenticated by: [id number] Y Date: 0:48 Dictated By: Isatu Auguste M.D. Signed By:07/28/24 1051 DD/ 1048 TD/TT: Forest Technology Professor: us Generic External Data Provider [facility] [...] DO LAB BLOOD ORDERABLES Final Resul t [facility] * (ABNORMAL) GLUCOSE 1 HOUR (07/17/2024 [...] II, MD, PHD at 07-Jul-2024 10:00:26 AM [facility] Procedure Note Tabitha Campbell MD - [...] signed by TABITHA CAMPBELL II, MD, PHD [id number] 10:00:26 AM [facility] us Orlin Gloria DO IMG OB [...] EDT Ximena Carver NP [facility] Final Result [facility] * RECURRENT VAGINITIS (HTRX) (06/16/2024 2:27 PM EDT) Pathologist [facility] ATOPOBIUM VAGINAE 0.000 19.961 - 24.689 ppm 06/17/2024 8:02 AM EDT [facility] ATOPOBIUM VAGINAE Not Detected 19.961 - 24.689 ppm 06/17/2024 8:02 AM EDT [facility] BVAB 2,3 (BACTERIAL VAGINOSIS ASSOCIATED BACTERIA 2, 3); MOBILUNCUS SPP 0.000 19.961 - 24.689 ppm 06/17/2024 8:02 AM EDT [facility] 2,3 (BACTERIAL VAGINOSIS ASSOCIATED BACTERIA 2, 3); MOBILUNCUS SPP Not Detected 19.961 - 24.689 ppm 06/17/2024 8:02 AM EDT [facility] RANJANA ALBICANS, PARAPSILOSIS, TROPICALIS 0.000 19.961 - 30.770 ppm 06/17/2024 8:02 AM EDT [facility] [place] RANJANA ALBICANS, PARAPSILOSIS, TROPICALIS Not Detected 19.961 - 30.770 ppm 06/17/2024 8:02 AM EDT [facility] [place] RANJANA GLABRATA 0.000 23.000 - 32.138 ppm 06/17/2024 8:02 AM EDT [facility] [place] RANJANA GLABRATA Not Detected 23.000 - 32.138 ppm 06/17/2024 8:02 AM EDT [facility] [place] RANJANA KRUSEI 0.000 23.000 - 32.271 ppm 06/17/2024 8:02 AM EDT [facility] [place] RANJANA KRUSEI Not Detected 23.000 - 32.271 ppm 06/17/2024 8:02 AM EDT [facility] [place] CHLAMYDIA TRACHOMATIS 0.000 23.000 - 31.467 ppm 06/17/2024 8:02 AM EDT [facility] [place] CHLAMYDIA TRACHOMATIS Not Detected 23.000 - 31.467 ppm 06/17/2024 8:02 AM EDT [facility] [place] GARDNERELLA VAGINALIS 0.000 19.961 - 24.689 ppm 06/17/2024 8:02 AM EDT [facility] [place] GARDNERELLA VAGINALIS Not Detected 19.961 - 24.689 ppm 06/17/2024 8:02 AM EDT [facility] [place] MEGASPHAERA (TYPES 1, 2) 0.000 19.961 - 24.689 ppm 06/17/2024 8:02 AM EDT [facility] [place] MEGASPHAERA (TYPES 1, 2) Not Detected 19.961 - 24.689 ppm 06/17/2024 8:02 AM EDT [facility] [place] NEISSERIA GONORRHOEAE 0.000 23.000 - 32.117 ppm 06/17/2024 8:03 AM EDT [facility] [place] NEISSERIA GONORRHOEAE Not Detected 23.000 - 32.117 ppm 06/17/2024 8:03 AM EDT [facility] [place] TRICHOMONAS VAGINALIS 0.000 23.000 - 32.119 ppm 06/17/2024 8:02 AM EDT [facility] [place] TRICHOMONAS VAGINALIS Not Detected 23.000 - 32.119 ppm 06/17/2024 8:02 AM EDT [facility] [place] MYCOPLASMA GENITALIUM 0.000 19.961 - 24.689 ppm 06/17/2024 8:02 AM EDT [facility] [place] MYCOPLASMA GENITALIUM Not Detected 19.961 - 24.689 ppm 06/17/2024 8:02 AM EDT [facility] [place] Tissue 06/16/2024 2:27 PM EDT 06/17/2024 1:54 AM EDT Orlin Gloria DO LAB BLOOD ORDERABLES Final Resul t [facility] [address] [place] [address] * Pap Smear (12/10/2023 12:00 AM EDT) Swab Cervical swab / Unknown Orlin Gloria DO LAB CYTOLOGY ORDERABLES Final Re sult EXTERNAL LAB from Last 3 Months or Most Recently Relevant to Health Maintenance Additional Health Concerns Active Problems Noted Date Diagnosed Date OB Reminders 02/11/2024 Insurance [employer] Care Teams Furniture Refinisher Relationship Specialty Start Date End Date Parag Bradley MD [address] [place] [address] PCP - General Family Medicine 08/14/22 Анна Ha NP [address] [place] [address] PCP - [facility] 08/25/23
--- OUTSIDE RECORDS SUMMARY | 2024-09-04 21:01 | XMS_ITS | CCD ---
Author Organization [facility] Care Team Providers Care Printing Plate Maker Name Role Phone AICHHOLZ, BUSINESS OBJECTS ANALYST АННА Primary Care Unavailable PAY, DR LIN Admitting Unavailable PAY, DR LIN Attending Unavailable GISELLE RESTREPO Consulting Unavailable GLORIA, DR ORDAZ Admitting Unavailable GLORIA, DR ORDAZ Attending Unavailable AICHHOLZ, BUSINESS OBJECTS ANALYST АННА Primary Care Unavailable GLORIA, DR ORDAZ Consulting Unavailable AICHHOLZ, BUSINESS OBJECTS ANALYST АННА Admitting Unavailable AICHHOLZ, BUSINESS OBJECTS ANALYST АННА Attending Unavailable AICHHOLZ, BUSINESS OBJECTS ANALYST АННА Primary Care Unavailable AICHHOLZ, BUSINESS OBJECTS ANALYST АННА Consulting Unavailable AICHHOLZ, BUSINESS OBJECTS ANALYST АННА Primary Care Unavailable DON, DR BIRD Admitting Unavailable DON, DR BIRD Attending Unavailable GISELLE RESTREPO Consulting Unavailable PHOEBE ALFARO Consulting Unavailable MD Dar Brody Primary Care Provider [phone] Slava Castro Attending Provider Parag Bradley MD Primary Care Provider Aichholange WAREHOUSE OPERATIONS ASSOCIATE, Анна Unavailable Slava Castro DO Attending Provider [...] 81 mg by mouth Daily Active levonorgestrel 0.789507 mg/hr intrauterine system (2 sources) Progestin, Progestin-containi [...] capsule Indications: Heartburn during in second trimester ([facility]) Take 1 capsule (20 mg) by mouth [...] 09-01-2023 09-01-2023 Chronic Other aftercare (1 source) alf (current) use of hormonal contraceptives; Translations: [SHELTER HORMONAL CONTRACEPTIVES] Onset: 02-22-2022 Episodic Other aftercare (1 source) 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; Translations: [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 CURRENT DRUG THERAPY] Onset: 02-22-2022 Episodic Other [...] low weight; and growth retardation (2 sources) Kzebs-jql-dihqx baby; Translations: [ small for gestational age, [...] Negative Negative - 4(70) +++ mg/dL [facility] Blood, UA Negative Negative - 50 Richy/mcL [facility] Clarity, UA Clear [facility] Color, UA Yellow [facility] Glucose, UA Negative Negative - 1999(110) ++++ mg/dL [facility] Interpretation and review of laboratory results Abnormal [facility] Ketones, UA Negative Negative - 160(16) ++++ mg/dL [facility] Leukocytes, UA Negative Negative - 500+++ Tano/mcL [facility] Nitrite, UA Negative Negative - Positive [facility] pH, UA 6 5 - 9 [facility] Protein, UA Positive Negative - 1999(20) ++++ mg/dL [facility] Comment on above: 30 Spec Grav, UA 1.02 1 - 1.03 [facility] Urobilinogen, UA 1.0 0.2 - 12 mg/dL [facility] US OB BPP W NON-STRESS on 09-01-2024 [place] [id number] Ultrasound Report Signed Patient: SHREYA MARSHALL MR#: [id number] : 1990 Acct:[id number] Age/Sex: 34 / F ADM Date: 09/01/24 Loc: US Attending Dr: Vidya Jackson Ordering Physician: Vidya Jackson Date of Service: 09/01/24 Procedure(s): US OB BPP w non-stress Accession Number(s): [id number] cc: Анна Ha NP; Vidya Jackson [address] [address] Patient Name: SHREYA MARSHALL MRN: [facility]:[id number] date: 1990 Sex: F Assigned Patient Location: Current Patient Location: Accession/Order Number: [id number] Exam Date: 09/01/2024 15:10 Report Date: 09/01/2024 [...] Perez M.D. 09/01/2024 3:11 PM Dictation Location: [employer] Electronically authenticated by: [id number] Y Date: 09/01/2024 15:11 Dictated By: Emilio Perez D.O. Signed By: 09/01/24 1513 DD/ 10 TD/TT: Vocational Nurse Lvn: [facility] Radiology, Radiologist, - 09/01/2024 [place] [address] Ultrasound Report Signed Patient: SHREYA MARSHALL MR#: [id number] : 1990 Acct:[id number] Age/Sex: 34 / F ADM Date: 09/01/24 Loc: US Attending Dr: Vidya Jackson Ordering Physician: Vidya Jackson Date of Service: 09/01/24 Procedure(s): US OB BPP w non-stress Accession Number(s): [id number] cc: Анна Ha WAREHOUSE OPERATIONS ASSOCIATE; Vidya Jackson The [place] [id number] Patient Name: SHREYA MARSHALL MRN: [facility]:[id number] date: 1990 Sex: F Assigned Patient Location: US Current Patient Location: Accession/Order Number: [id number] Exam Date: 09/01/2024 15:10 Report Date: 09/01/2024 [...] Perez M.D. 09/01/2024 3:11 PM Dictation Location: [place] [address] Electronically authenticated by: [id number] Y Date: 09/01/2024 15:11 Dictated By: Emilio Perez D.O. Signed By: 09/01/241512 DD/ 10 TD/TT: Vocational Nurse Lvn: [facility] [employer] Radiology Study observation (narrative) [facility] US OB BPP W NON-STRESS Ordered By: Radiologist Radiology on 09-01-2024 [facility] [employer] Work Phone: US OB BPP W NON-STRESS on 08-25-2024 [place] [address] Ultrasound Report Signed Patient: SHREYA MARSHALL MR#: [id number] : 1990 Acct:[id number] Age/Sex: 33 / F ADM Date: 08/25/24 Loc: [facility] 253-[address]: Vidya Jackson Ordering Physician: Vidya Jackson Date of Service: 08/25/24 Procedure(s): US OB BPP w non-stress Accession Number(s): [id number] cc: Анна Ha NP; Vidya Jackson [place] [address] Patient Name: SHREYA MARSHALL MRN: [id number] date: 1990 Sex: F Assigned Patient Location: [facility] Current Patient Location: [facility] Accession/Order Number: [id number] Exam Date: 08/25/2024 11:31 Report Date: 08/25/2024 [...] Auguste M.D. 08/25/2024 11:33 AM Dictation Location: [place] [address] Electronically authenticated by: [id number] Y Date: 08/25/2024 11:33 Dictated By: Isatu Auguste M.D. Signed By: 08/25/24 1135 DD/ 1133 TD/TT: Vocational Nurse Lvn: [facility] Radiology, Radiologist, MD - 08/25/2024 [place] [address] Ultrasound Report Signed Patient: SHREYA MARSHALL MR#: [id number] : 1990 Acct:[id number] Age/Sex: 33 / F ADM Date: 08/25/24 Loc: [facility] 253-[address]: Vidya Jackson Ordering Physician: Vidya Jackson Date of Service: 08/25/24 Procedure(s): US OB BPP w non-stress Accession Number(s): [id number] cc: Анна Ha WAREHOUSE OPERATIONS ASSOCIATE; Vidya Jackson The [place] [id number] Patient Name: SHREYA MARSHALL MRN: [facility]:[id number] date: 1990 Sex: F Assigned Patient Location: [facility] Current Patient Location: [facility] Accession/Order Number: [id number] Exam Date: 08/25/2024 11:31 Report Date: 08/25/2024 [...] Auguste M.D. 08/25/2024 11:33 AM Dictation Location: [place] [address] Electronically authenticated by: [id number] Y Date: 08/25/2024 11:33 Dictated By: Isatu Auguste M.D. Signed By: 08/25/24 1135 DD/ 1133 TD/TT: Vocational Nurse Lvn: [facility] Radiology Study observation (narrative) [facility] US OB BPP W NON-STRESS Ordered By: Radiologist Radiology on 08-25-2024 [facility] Work Phone: US OB BPP W NON-STRESS on 08-18-2024 The [place] [id number] Ultrasound Report Signed Patient: SHREYA MARSHALL MR#: [id number] : 1990 Acct:[id number] Age/Sex: 33 / F ADM Date: 08/18/24 Loc: US Attending Dr: Vidya Jackson Ordering Physician: Vidya Jackson Date of Service: 08/18/24 Procedure(s): US OB BPP w non-stress Accession Number(s): [id number] cc: Анна Ha WAREHOUSE OPERATIONS ASSOCIATE; Vidya Jackson [place] [id number] Patient Name: SHREYA MARSHALL MRN: [facility]:[id number] date: 1990 Sex: F Assigned Patient Location: [facility] Current Patient Location: Accession/Order Number: [id number] Exam Date: 08/18/2024 11:47 Report Date: 08/18/2024 [...] Auguste M.D. 08/18/2024 11:48 AM Dictation Location: [place] [address] Electronically authenticated by: [id number] Y Date: 08/18/2024 11:48 Dictated By: Isatu Auguste M.D. Signed By: 08/18/24 1151 DD/ 1148 TD/TT: Vocational Nurse Lvn: [facility] Radiology, Radiologist, MD - 08/18/2024 [place] [address] Ultrasound Report Signed Patient: SHREYA MARSHALL MR#: [id number] : 1990 Acct:[id number] Age/Sex: 33 / F ADM Date: 08/18/24 Loc: US Attending Dr: Vidya Jackson Ordering Physician: Vidya Jackson Date of Service: 08/18/24 Procedure(s): US OB BPP w non-stress Accession Number(s): [id number] cc: Анна Ha NP; Vidya Jackson [place] [id number] Patient Name: SHREYA MARSHALL MRN: [facility]:[id number] date: 1990 Sex: F Assigned Patient Location: [facility] Current Patient Location: Accession/Order Number: [id number] Exam Date: 08/18/2024 11:47 Report Date: 08/18/2024 11:48 At the request of: VIDYA JACKSON Procedure: US OB BPP w non-stress BIOPHYSICAL PROFILE: CLINICAL INFORMATION: History of gestational diabetes Z86.32 COMPARISON: 08/13/2024 There is a single live intrauterine gestation in cephalic presentation. The reported gestational age is 34 weeks 5 days. The heart rate [id number] beats per minute. FINDINGS: TONE: 1 or [...] Auguste M.D. 08/18/2024 11:48 AM Dictation Location: [place] [address] Electronically authenticated by: [id number] Y Date: 08/18/2024 11:48 Dictated By: Isatu Auguste M.D. Signed By: 08/18/24 1151 DD/ 1148 TD/TT: Vocational Nurse Lvn: [facility] Radiology Study observation (narrative) [facility] US OB BPP W NON-STRESS Ordered By: Radiologist Radiology on 08-18-2024 [facility] Work Phone: US OB BPP W NON-STRESS on 08-13-2024 [place] [address] Ultrasound Report Signed Patient: SHREYA MARSHALL MR#: [id number] : 1990 Acct:[id number] Age/Sex: 33 / F ADM Date: 08/13/24 Loc: US Attending Dr: Slava Castro D.O. Ordering Physician: Slava Castro D.O. Date of Service: 08/13/24 Procedure(s): US OB BPP w non-stress Accession Number(s): [id number] cc: Анна Ha WAREHOUSE OPERATIONS ASSOCIATE; Slava Castro D.O. [place] [address] Patient Name: SHREYA MARSHALL MRN: [facility]:[id number] date: 1990 Sex: F Assigned Patient Location: [facility] Current Patient Location: Accession/Order Number: [id number] Exam Date: 08/13/2024 17:25 Report Date: 08/13/2024 [...] Camacho M.D. 08/13/2024 5:27 PM Dictation Location: [place] [address] Electronically authenticated by: [id number] Y Date: 08/13/2024 17:27 Dictated By: Nilo Camacho M.D. Signed By: 08/13/241728 DD/ 26 TD/TT: Vocational Nurse Lvn: [facility] Radiology, Radiologist, MD - 08/13/2024 [place] [address] Ultrasound Report Signed Patient: SHREYA MARSHALL MR#: [id number] : 1990 Acct:[id number] Age/Sex: 33 / F ADM Date: 08/13/24 Loc: US Attending Dr: Slava Castro D.O. Ordering Physician: Slava Castro D.O. Date of Service: 08/13/24 Procedure(s): US OB BPP w non-stress Accession Number(s): [id number] cc: Анна Ha NP; Slava Castro D.O. The [place] [address] Patient Name: SHREYA MARSHALL MRN: [facility]:[id number] date: 1990 Sex: F Assigned Patient Location: [facility] Current Patient Location: Accession/Order Number: [id number] Exam Date: 08/13/2024 17:25 Report Date: 08/13/2024 [...] Camacho M.D. 08/13/2024 5:27 PM Dictation Location: [facility] [employer] Electronically authenticated by: [id number] Y Date: 08/13/2024 17:27 Dictated By: Nilo Camacho M.D. Signed By: 08/13/241728 DD/ 26 TD/TT: Vocational Nurse Lvn: [facility] Radiology Study observation (narrative) [facility] US OB BPP W NON-STRESS Ordered By: Radiologist Radiology on 08-13-2024 [facility] Work Phone: US OB BPP W NON-STRESS on 08-11-2024 [place] [address] Ultrasound Report Signed Patient: SHREYA MARSHALL MR#: [id number] : 1990 Acct:[id number] Age/Sex: 33 / F ADM Date: 08/11/24 Loc: [facility] 254-[address]: Vidya Jackson Ordering Physician: Vidya Jackson Date of Service: 08/11/24 Procedure(s): US OB BPP w non-stress Accession Number(s): [id number] cc: Анна Ha WAREHOUSE OPERATIONS ASSOCIATE; Vidya Jackson [place] [address] Patient Name: SHREYA MARSHALL MRN: [id number]:[id number] date: 1990 Sex: F Assigned Patient Location: [facility] Current Patient Location: [facility] Accession/Order Number: [id number] Exam Date: 08/11/2024 12:18 Report Date: 08/11/2024 [...] Auguste M.D. 08/11/2024 12:20 PM Dictation Location: [place] [address] Electronically authenticated by: [id number] Y Date: 08/11/2024 12:20 Dictated By: Isatu Auguste M.D. Signed By: 08/11/24 1222 DD/ 1220 TD/TT: Vocational Nurse Lvn: [facility] Radiology, Radiologist, - 08/11/2024 [place] [address] Ultrasound Report Signed Patient: SHREYA MARSHALL MR#: [id number] : 1990 Acct:[id number] Age/Sex: 33 / F ADM Date: 08/11/24 Loc: [facility] 254-[address]: Vidya Jackson Ordering Physician: Vidya Jackson Date of Service: 08/11/24 Procedure(s): US OB BPP w non-stress Accession Number(s): [id number] cc: Анна Ha NP; Vidya Jackson The [place] [address] Patient Name: SHREYA MARSHALL MRN: [facility]:[id number] date: 1990 Sex: F Assigned Patient Location: [facility] Current Patient Location: [facility] Accession/Order Number: [id number] Exam Date: 08/11/2024 12:18 Report Date: 08/11/2024 [...] Auguste M.D. 08/11/2024 12:20 PM Dictation Location: [place] [address] Electronically authenticated by: [id number] Y Date: 08/11/2024 12:20 Dictated By: Isatu Auguste M.D. Signed By: 08/11/24 1222 DD/ 1220 TD/TT: Vocational Nurse Lvn: [facility] Radiology Study observation (narrative) [facility] US OB BPP W NON-STRESS Ordered By: Radiologist Radiology on 08-11-2024 [facility] Work Phone: OB BPP W NON-STRESS on 08-04-2024 [place] [id number] Ultrasound Report Signed Patient: SHREYA MARSHALL MR#: [id number] : 1990 Acct:[id number] Age/Sex: 33 / F ADM Date: 08/04/24 Loc: [facility] 250-[address]: Vidya Jackson Ordering Physician: Vidya Jackson Date of Service: 08/04/24 Procedure(s): US OB BPP w non-stress Accession Number(s): [id number] cc: Анна Ha WAREHOUSE OPERATIONS ASSOCIATE; Vidya Jackson [address] [address] Patient Name: SHREYA MARSHALL MRN: [facility]:[id number] date: 1990 Sex: F Assigned Patient Location: [facility] Current Patient Location: [facility] Accession/Order Number: [id number] Exam Date: 08/04/2024 11:42 Report Date: 08/04/2024 [...] Auguste M.D. 08/04/2024 11:43 AM Dictation Location: [place] [address] Electronically authenticated by: [id number] Y Date: 08/04/2024 11:43 Dictated By: Isatu Auguste M.D. Signed By: 08/04/24 1146 DD/ 1143 TD/TT: Vocational Nurse Lvn: [facility] Radiology, Radiologist, MD - 08/04/2024 [place] [address] Ultrasound Report Signed Patient: SHREYA MARSHALL MR#: [id number] : 1990 Acct:[id number] Age/Sex: 33 / F ADM Date: 08/04/24 Loc: [facility] 250-[address]: Vidya Jackson Ordering Physician: Vidya Jackson Date of Service: 08/04/24 Procedure(s): US OB BPP w non-stress Accession Number(s): [id number] cc: Анна Ha WAREHOUSE OPERATIONS ASSOCIATE; Vidya Jackson The [address] [address] Patient Name: SHREYA MARSHALL MRN: [facility]:[id number] date: 1990 Sex: F Assigned Patient Location: [facility] Current Patient Location: [facility] Accession/Order Number: [id number] Exam Date: 08/04/2024 11:42 Report Date: 08/04/2024 [...] Auguste M.D. 08/04/2024 11:43 AM Dictation Location: [place] [address] Electronically authenticated by: [id number] Y Date: 08/04/2024 11:43 Dictated By: Isatu Auguste M.D. Signed By: 08/04/24 1146 DD/ 1143 TD/TT: Vocational Nurse Lvn: [facility] Radiology Study observation (narrative) [facility] OB BPP W NON-STRESS Ordered By: Radiologist Radiology on 08-04-2024 [facility] Work Phone: Urinalysis macro (dipstick) panel (U)on 08-04-2024 Bilirubin, UA Negative Negative - 4(70) +++ mg/dL [facility] Blood, UA Positive Negative - 50 Richy/mcL [facility] Comment on above: trace-intact Clarity, UA Clear [facility] Color, UA Yellow [facility] Glucose, UA Negative Negative - 2000(110) ++++ mg/dL [facility] Interpretation and review of laboratory results Abnormal [facility] Ketones, UA Negative Negative - 160(16) ++++ mg/dL [facility] Leukocytes, UA Negative Negative - 500+++ Tano/mcL [facility] Nitrite, UA Negative Negative - Positive [facility] pH, UA 7 5 - 9 [facility] Protein, UA Negative Negative - 1999(20) ++++ mg/dL [facility] Spec Grav, UA 1.01 1 - 1.03 [facility] Urobilinogen, UA 0.2 0.2 - 12 mg/dL [facility] US OB GROWTHon 07-28-2024 [place] [address] Ultrasound Report Signed Patient: SHREYA MARSHALL MR#: [id number] : 1990 Acct:[id number] Age/Sex: 33 / F ADM Date: 07/28/24 Loc: US Attending Dr: Slava Castro D.O. Ordering Physician: Slava Castro D.O. Date of Service: 07/28/24 Procedure(s): US OB growth Accession Number(s): [id number] cc: Анна Ha NP; Slava Castro D.O. [place] [id number] Patient Name: SHREYA MARSHALL MRN: [facility]:[id number] date: 1990 Sex: F Assigned Patient Location: US Current Patient Location: US Accession/Order Number: [id number] Exam Date: 07/28/2024 10:44 Report Date: 07/28/2024 [...] Auguste M.D. 07/28/2024 10:48 AM Dictation Location: [place] [address] Electronically authenticated by: [id number] Date: 07/28/2024 10:48 Dictated By: Isatu Auguste M.D. Signed By: 07/28/24 1051 DD/ 1048 TD/TT: Vocational Nurse Lvn: [facility] Radiology, Radiologist, MD - 07/28/2024 [place] [address] Ultrasound Report Signed Patient: SHREYA MARSHALL MR#: [id number] : 1990 Acct:[id number] Age/Sex: 33 / F ADM Date: 07/28/24 Loc: US Attending Dr: Slava Castro D.O. Ordering Physician: Slava Castro D.O. Date of Service: 07/28/24 Procedure(s): US OB growth Accession Number(s): [id number] cc: Анна Ha WAREHOUSE OPERATIONS ASSOCIATE; Slava Castro D.O. The [place] [address] Patient Name: SHREYA MARSHALL MRN: [facility]:[id number] date: 1990 Sex: F Assigned Patient Location: US Current Patient Location: US Accession/Order Number: [id number] Exam Date: 07/28/2024 10:44 Report Date: 07/28/2024 [...] Auguste M.D. 07/28/2024 10:48 AM Dictation Location: [place] [address] Electronically authenticated by: [id number] Y Date: 07/28/2024 10:48 Dictated By: Isatu Auguste M.D. Signed By: 07/28/24 1051 DD/ 1048 TD/TT: Vocational Nurse Lvn: [facility] Radiology Study observation (narrative) [facility] US OB GROWTHOrdered By: Tatiana ologaneesh Radiology on 07-28-2024 [facility] Work Phone: GLUCOSE TOLERANCE 3 HOURon 0 07-23-2024 GLUCOSE TOLERANCE 3 HOUR High mg/dL [facility] Comment on above: GLU FAST 97H (<95) C ol: 07/23/24 0909 GLU 1HR 151 (<180) Col: 07/23/24 1013 GLU 2HR 151 (<155) Col: 07/23/24 1113 GLU 3HR 123 (<140) Col: 07/23/24 1213 Interpretation and review of laboratory results Abnormal [facility] US OB FOLLOW UP TRANSABDOMIN AL [...] II, MD, PHD at 07-Jul-2024 10:00:26 AM [facility] Normal Not Available Comment on above: Order Comment: US OB SCAN FOR GROWTH Estimated Date of Delivery: 09/24/24 Gestational Age as of 06/16/2024: 25w5d Urinalysis macro (dipstick) panel (U)on 07-06-2024 Bilirubin, UA Negative Negative - 4(70) +++ mg/dL [facility] Healthcare Blood, UA Negative Negative - 50 Richy/mcL [facility] Clarity, UA Clear [facility] Color, UA Yellow [facility] Glucose, UA Negative Negative - 1999(110) ++++ mg/dL [facility] Interpretation and review of laboratory results Normal [facility] Ketones, UA Negative Negative - 160(16) ++++ mg/dL [facility] Leukocytes, UA Negative Negative - 500+++ Tano/mcL [facility] Nitrite, UA Negative Negative - Positive [facility] pH, UA 7 5 - 9 [facility] Protein, UA Negative Negative - 1999(20) ++++ mg/dL [facility] Spec Grav, UA 1.015 1 - 1.03 [facility] Urobilinogen, UA 0.2 0.2 - 12 mg/dL [facility] ALL CBC WITH AUTO DIFFon BASOPHILS ABSOLUTE AUTO 0 [facility] Basophils/100 WBC (Bld) 0.3 % 0.2 - 2.0 % [facility] Eosinophils/100 WBC (Bld) 0.3 % Low 0.9 - 7.0 % [facility] Erythrocyte distribution width (RBC) [Ratio] 12.9 % 11.0 - 15.0 % [facility] Hematocrit (Bld) [Volume fraction] 35.5 % Low 36.0 - 48.0 % [facility] Hemoglobin (Bld) [Mass/Vol] 11.6 g/dL Low 12.0 - 16.0 g/dL [facility] IMMATURE GRANULOCYTES ABS AUTO 0.03 [facility] Immature granulocytes/100 WBC (Bld) 0.4 % 0.0 - 0.5 % [facility] Interpretation and review of laboratory results Abnormal [facility] LYMPHOCYTES ABSOLUTE AUTO 1.7 [facility] Lymphocytes/100 WBC (Bld) 22.3 % 20.5 - 60.0 % [facility] MCH (RBC) [Entitic mass] 30.7 pg 26.7 - 34.0 pg [facility] MCHC (RBC) [Mass/Vol] 32.7 g/dL 29.9 - 35.2 g/dL [facility] MCV (RBC) [Entitic vol] 93.9 fL 81.0 - 99.0 fL [facility] MONOCYTES ABSOLUTE AUTO 0.4 [facility] Monocytes/100 WBC (Bld) 5.5 % 1.7 - 12.0 % [facility] NEUTROPHILS ABSOLUTE AUTO 5.3 [facility] Neutrophils/100 WBC (Bld) 71.2 % 43.0 - 75.0 % [facility] Platelet mean volume (Bld) [Entitic vol] 9.6 fL 9.5 - 13.5 fL [facility] TBH EO # 0 [facility] TBH PLT 218 [facility] TB RBC 3.78 Low [facility] TBH WBC 7.4 [facility] RECURRENT VAGINITIS (HTRX)on 06-17-2024 ATOPOBIUM VAGINAE 0 [facility] ATOPOBIUM VAGINAE Not detected [facility] BVAB 2,3 (BACTERIAL VAGINOSIS ASSOCIATED BACTERIA 2, 3); MOBILUNCUS SPP 0 [facility] BVAB 2,3 (BACTERIAL VAGINOSIS ASSOCIATED BACTERIA 2, 3); MOBILUNCUS SPP Not detected [facility] RANJANA ALBICANS, PARAPSILOSIS, TROPICALIS 0 [facility] RANJANA ALBICANS, PARAPSILOSIS, TROPICALIS Not detected [facility] RANJANA GLABRATA 0 [facility] RANJANA GLABRATA Not detected [facility] RANJANA KRUSEI 0 [facility] RANJANA KRUSEI Not detected [facility] CHLAMYDIA TRACHOMATIS 0 [facility] CHLAMYDIA TRACHOMATIS Not detected [facility] GARDNERELLA VAGINALIS 0 [facility] GARDNERELLA VAGINALIS Not detected [facility] MEGASPHAERA (TYPES 1, 2) 0 [facility] MEGASPHAERA (TYPES 1, 2) Not detected [facility] MYCOPLASMA GENITALIUM 0 [facility] MYCOPLASMA GENITALIUM Not detected [facility] NEISSERIA GONORRHOEAE 0 [facility] [facility] NEISSERIA GONORRHOEAE Not detected [facility] TRICHOMONAS VAGINALIS 0 [facility] TRICHOMONAS VAGINALIS Not detected [facility] Urinalysis macro (dipstick) panel (U)on 06-16-2024 Bilirubin, UA Negative Negative - 4(70) +++ mg/dL [facility] Blood, UA Negative Negative - 50 Richy/mcL [facility] Clarity, UA Clear [facility] Color, UA Yellow [facility] Glucose, UA Negative Negative - 2000(110) ++++ mg/dL [facility] Interpretation and review of laboratory results Normal [facility] Ketones, UA Negative Negative - 160(16) ++++ mg/dL [facility] Leukocytes, UA Negative Negative - 500+++ Tano/mcL [facility] Nitrite, UA Negative Negative - Positive [facility] pH, UA 6 5 - 9 [facility] Protein, UA Negative Negative - 2000(20) ++++ mg/dL [facility] Spec Grav, UA 1.01 1 - 1.03 [facility] Urobilinogen, UA 0.2 0.2 - 12 mg/dL [facility] US OB 14+ WEEKS ANATOMY SCAN on [...] II, MD, PHD at 11-May-2024 12:36:27 AM [facility] Normal Not Available Comment on above: Order Comment: US OB ANATOMY SINGLE W US OB CERVICAL LENGTH Estimated Date of Delivery: 09/24/24 Gestational Age as of 04/07/2024: 15w5d GLUCOSE 1 HOURon 04-10-2024 Glucose [Mass/Vol] 124 mg/dL NINF - 13 0 mg/dL [facility] [employer] [facility] Urinalysis macro (dipstick) panel (U)on 04-07-2024 Bilirubin, UA Negative Negative - 4(70) +++ mg/dL [facility] Blood, UA Positive Negative - 50 Richy/mcL [facility] Comment on above: trace Clarity, UA Clear [facility] Color, UA Yellow [facility] Glucose, UA Negative Negative - 1999(110) ++++ mg/dL [facility] Interpretation and review of laboratory results Abnormal [facility] Ketones, UA Positive Negative - 160(16) ++++ mg/dL [facility] Comment on above: 15 Leukocytes, UA Negative Negative - 500+++ Tano/mcL [facility] Nitrite, UA Negative Negative - Positive [facility] pH, UA 7 5 - 9 [facility] Protein, UA Negative Negative - 1999(20) ++++ mg/dL [facility] Spec Grav, UA 1.02 1 - 1.03 [facility] Urobilinogen, UA 1.0 0.2 - 12 mg/dL [facility] Urinalysis macro (dipstick) panel (U)on 03-10-2024 Bilirubin, UA Negative Negative - 4(70) +++ mg/dL [facility] Blood, UA Positive Negative - 50 Richy/mcL [facility] Comment on above: trace-intact Clarity, UA Clear [facility] Color, UA Yellow [facility] Glucose, UA Negative Negative - 1999(110) ++++ mg/dL [facility] Interpretation and review of laboratory results Abnormal [facility] Ketones, UA Negative Negative - 160(16) ++++ mg/dL [facility] Leukocytes, UA Negative Negative - 500+++ Tano/mcL [facility] Nitrite, UA Negative Negative - Positive [facility] pH, UA 6.5 5 - 9 [facility] Protein, UA Negative Negative - 1999(20) ++++ mg/dL [facility] Spec Grav, UA 1.01 1 - 1.03 [facility] Urobilinogen, UA 0.2 0.2 - 12 mg/dL [facility] BOX TESTon 02-27-2024 BOX [address] SENT OUT [facility] BOX1 [facility] BOX2 02/27/24 [facility] Urine Cultureon 02-27-2024 Bacteria identified Cx Nom (U) No Growth 2 Days PERFORMED BY: [facility] [place] [address] PATHOLOGIST MINE SURVEYOR SHEREE MCCARTHY M.D. Normal [facility] Comment on above: Performed By: #### C UU #### [facility] [address] [id number] [facility] HCG ( test) Ql (U)o n 02-11-2024 Interpretation and review of laboratory results Abnormal [facility] Preg Test, Ur Positive Negative [facility] Urinalysis macro (dipstick) panel (U)on 02-11-2024 Bilirubin, UA Positive Negative - 4(70) +++ mg/dL [facility] Comment on above: small Blood, UA Positive Negative - 50 Richy/mcL [facility] Comment on above: trace-lysed Clarity, UA Clear [facility] Color, UA Yellow [facility] Glucose, UA Negative Negative - 2000(110) ++++ mg/dL [facility] Interpretation and review of laboratory results Abnormal [facility] Ketones, UA Positive Negative - 160(16) ++++ mg/dL [facility] Comment on above: trace Leukocytes, UA Trace Negative - 500+++ Tano/mcL [facility] Nitrite, UA Negative Negative - Positive [facility] pH, UA 6 5 - 9 [facility] Protein, UA Positive Negative - 2000(20) ++++ mg/dL [facility] Comment on above: 100 Spec Grav, UA 1.03 1 - 1.03 [facility] Urobilinogen, UA 0.2 0.2 - 12 mg/dL [facility]H PREG QUANT HCGon 024 HCG QUANTITATIVE 96383 mIU/mL [facility] Comment on above: 5-50 0.2-1 WEEK 50-500 1-2 WEEKS 100-5,000 2-3 WEEKS 500-10,000 3-4 WEEKS 1,000-50,000 4-5 WEEKS 10,000-100,000 5-6 WEEKS 15,000-200,000 6-8 WEEKS 10,000-100,000 2-3 MONTHS [facility] PREG QUANT HCGon 024 HCG QUANTITATIVE 71323 mIU/mL [facility] Comment on above: 5-50 0.2-1 WEEK 50-500 1-2 WEEKS 100-5,000 2-3 WEEKS 500-10,000 3-4 WEEKS 1,000-50,000 4-5 WEEKS 10,000-100,000 5-6 WEEKS 15,000-200,000 6-8 WEEKS 10,000-100,000 2-3 MONTHS [facility] PREG QUANT HCGon 024 HCG QUANTITATIVE 41071 mIU/mL [facility] Comment on above: 5-50 0.2-1 WEEK 50-500 1-2 WEEKS 100-5,000 2-3 WEEKS 500-10,000 3-4 WEEKS 1,000-50,000 4-5 WEEKS 10,000-100,000 5-6 WEEKS 15,000-200,000 6-8 WEEKS 10,000-100,000 2-3 MONTHS [facility] PREG QUANT HCGon 024 HCG QUANTITATIVE 11980 mIU/mL [facility] Comment on above: 5-50 0.2-1 WEEK 50-500 1-2 WEEKS 100-5,000 2-3 WEEKS 500-10,000 3-4 WEEKS 1,000-50,000 4-5 WEEKS 10,000-100,000 5-6 WEEKS 15,000-200,000 6-8 WEEKS 10,000-100,000 2-3 MONTHS [facility] PREG QUANT HCGon 024 HCG QUANTITATIVE 8911 mIU/mL [facility] Comment on above: 5-50 0.2-1 WEEK 50-500 1-2 WEEKS 100-5,000 2-3 WEEKS 500-10,000 3-4 WEEKS 1,000-50,000 4-5 WEEKS 10,000-100,000 5-6 WEEKS 15,000-200,000 6-8 WEEKS 10,000-100,000 2-3 MONTHS [facility] PREG QUANT HCGon 024 HCG QUANTITATIVE 4641 mIU/mL [facility] Comment on above: 5-50 0.2-1 WEEK 50-500 1-2 WEEKS 100-5,000 2-3 WEEKS 500-10,000 3-4 WEEKS 1,000-50,000 4-5 WEEKS 10,000-100,000 5-6 WEEKS 15,000-200,000 6-8 WEEKS 10,000-100,000 2-3 MONTHS [facility] PREG QUANT HCGon 01-20-2 024 HCG QUANTITATIVE 2241 mIU/mL [facility] Comment on above: 5-50 0.2-1 WEEK 50-500 1-2 WEEKS 100-5,000 2-3 WEEKS 500-10,000 3-4 WEEKS 1,000-50,000 4-5 WEEKS 10,000-100,000 5-6 WEEKS 15,000-200,000 6-8 WEEKS 10,000-100,000 2-3 MONTHS [facility] PREG QUANT HCGon 01-18-2 024 HCG QUANTITATIVE 884 mIU/mL [facility] Comment on above: 5-50 0.2-1 WEEK 50-500 1-2 WEEKS 100-5,000 2-3 WEEKS 500-10,000 3-4 WEEKS 1,000-50,000 4-5 WEEKS 10,000-100,000 5-6 WEEKS 15,000-200,000 6-8 WEEKS 10,000-100,000 2-[address] [facility] IGP,APTIMA HPV,AGE GDLNon -2023 AGE GDLN ACOG TESTING Note . [facility] Comment on above: TESTS RESULT FLAG U NITS REF RANGE LAB Clinician Provided Cytology Information Source.............Cervix;Endocervix No. of containers..01 ThinPrep Vial Age Algo ACOG Sylvia... FLAG LEGEND: L-Low Normal,H-High Normal,LL-Alert Low,HH-Alert High <-Panic Low,>-Panic High,A-Abnormal,AA-Critical Abnormal Performed at: 01 =[address] [address] Amber Tilley MD, HPV APTIMA Negative Negative [facility] Comment on above: This nucleic acid am plification test detects fourteen high- risk HPV types (16,18,31,33,35,39,45,51,52,56,58,59,66,68) without differentiation. Performed at: =[address] [id number] Occupational Safety Specialist: Amber Tilley MD, Phone: [phone] Performed at: [address] [id number] Occupational Safety Specialist: Amber Tilley MD, Phone: [phone] IGP, APTIMA HPV, RFX 16/18,45 Note . [facility] Comment on above: TESTS RESULT FLAG UN ITS REF RANGE LAB DIAGNOSIS: 02 NEGATIVE FOR INTRAEPITHELIAL LESION OR MALIGNANCY. REACTIVE CELLULAR CHANGES AND/OR REPAIR ARE PRESENT. Specimen adequacy: 02 Satisfactory for evaluation. Endocervical and/or squamous metaplastic cells (endocervical component) are present. Performed by: 02 Peggy Gandhi, Thrasher Feeder (ASCP) Electronically si... 02 Divya Hoffman MD, [...] High,A-Abnormal,AA-Critical Abnormal Performed at: [address] [address] Amber Tilley MD, BRUSH-SPATULA CERVIX ENDOCERVIX [facility] Cytology Cervical or vaginal smear or scraping studyon 12-10-2023 [facility] HCG ( test) Ql (U)o n 12-10-2023 Interpretation and review of laboratory results Normal [facility] Preg Test, Ur Negative [facility] 06-30-2023 L Specimen: [id number] Received: 07/01/23 Status: WEN [place] Num: [id number] Spec Type: Surgical Subm Dr: Slava Castro Tissues: A Products of Conception - Spontaneous or Missed (POC) Procedures: HE/3, Gross/Micro L4 Age/ Patient Sex Location Account Attending Physician Shreya Marshall 32/F [facility] [id number] Slava Castro SPEC NUM: [id number] RECD: 07/01/23 STATUS: WEN DUVALL NUM: [id number] [place]: 06/30/[address]: Slava Castro ENTERED: [...] spongy harman tissue consistent with villous tissue. Central Office Trouble Shooter sections are submitted in A1?A3 to include the villous tissue in A1. Clinical history: Missed TW ---- Specimen: [id number] Received: 07/01/23 Status: WEN Jadiel Num: [id number] Spec Type: Surgical Subm Dr: Slava Castro Tissues: A Products of Conception - Spontaneous or Missed (POC) Procedures: /3, Gross/Micro L4 ---- Patient: Shreya Marshall [id number] (Continued) ---- Specimen: [id number] Received: 07/01/23 (Continued) Signed (signature on file) Shen Virgen MD 07/02/23 1859 ---- Specimen: [id number] Received: 07/01/23 Status: WEN Jadiel Num: [id number] Spec Type: Surgical Subm Dr: Slava Castro Tissues: A Products of Conception - Spontaneous or Missed (POC) Procedures: SUSY/Ruthy, Meghan/Maksim L4 ---- Patient: Shreya Marshall [id number] (Continued) ---- Specimen: [id number] Received: 07/01/23 (Continued) CPT Codes 07465 ---- ---- Specimen: [id number] Received: 07/01/23130 Status: WEN Jadiel Num: [id number] Spec Type: Surgical Subm Dr: Slava Castor Tissues: A Products of Conception - Spontaneous or Missed (POC) Procedures: HE/Ruthy, Gross/Micro L4 ---- Patient: Shreya Marshall [id number] (Continued) ---- Signed (signature on file) Shen Virgen MD 07/02/231858 Normal [facility] Covid-19 PCR (CVDTBH)on 01-25 SARS-CoV-2 (COVID-19) RNA JUAN+probe Ql (Unsp spec) Not detected Normal NOT DETECTED [facility] Comment on above: Result Comment: This test is not yet approved or cleared by the [place] FDA. When there are no FDA-approved or cleared tests available, and other criteria are met, FDA can make tests available under an emergency access mechanism called an Emergency Use Authorization (EUA). The EUA for this test is supported by the [place] of Health and Human Service's (HHS's) declaration [...] SARS-CoV-2. Performed By: #### C VDTB #### [facility] [address] [place] [address] Dr. Luis Virgen INFLUENZA A AND B [facility] 02-20 INFLUBNEGH SEE BELOW Normal [facility] Comment on above: Result Comment: Nega tive for Flu B protein antigen. Infection due to Flu B cannot be ruled out. Flu B antigen in the sample may be below the detection limit of the test. Performed By: #### I NFLUAB #### [facility] [address] [place] [address] Dr. Luis Virgen INFLUENZA A AG Positive Abnormal NEGATIVE SEE COMMENT [facility] Comment on above: Performed By: #### I NFLUAB #### [facility] [address] [place] [address] Dr. Luis Virgen INFLUENZA B AG Negative Normal NEGATIVE SEE COMMENT [facility] Comment on above: Performed By: #### I NFLUAB #### [facility] [address] [place] [address] Dr. Luis Virgen XR CHEST 1 Von 02-20-2022 XR CHEST 1 V EXAM: CHEST 1 VIEW HISTORY: COUGH TECHNIQUE: Chest, one view. COMPARISON: None. FINDINGS: Lungs are clear. No focal consolidation, pleural effusion, or pneumothorax. Pulmonary vasculature is within normal limits. Cardiomediastinal silhouette is normal. IMPRESSION: 1. No acute cardiopulmonary disease. Electronically authenticated by: PHOEBE ALFARO Date: 2022-02-20 17:46 Normal [facility] PAP ACOG PANEL 2: 30 to 65on 11-13-2021 . . Normal [facility] Comment on above: Result Comment: Perf ormed at: WB Performed By: #### [id number] #### [facility] [address] [address] [address] Luis Virgen Age Gdln ACOG Testing 30-65 Normal [facility] Comment on above: Performed By: #### [id number] #### [facility] [address] [address] [address] Luis Virgen DIAGNOSIS: Comment Normal [facility] Comment on above: Result Comment: NEGA TIVE FOR INTRAEPITHELIAL LESION OR MALIGNANCY. Performed at: WB Performed By: #### [id number] #### [facility] [address] [address] [address] Luis Virgen HPV Aptima Negative Normal Negative [facility] Comment on above: Result Comment: This nucleic acid amplification test detects fourteen high-risk HPV types (16,18,31,33,35,39,45,51,52,56,58,59,66,68) without differentiation. Performed at: =G Performed By: #### 4 [id number] #### [facility] [address] [address] [address] Luis Virgen Methodology: Comment Normal [facility] Comment on above: Result Comment: This liquid based ThinPrep(R) pap test was screened with the use of an image guided system. Performed at: WB Performed By: #### 4 [id number] #### [facility] [address] [address] [address] Luis Virgen Note: Comment Normal [facility] Comment on above: Result Comment: The Pap smear is a screening test designed to aid in the detection of premalignant and malignant conditions of the uterine cervix. It is not a diagnostic procedure and should not be used as the sole means of detecting cervical cancer. Both false-positive and false-negative reports do occur. . Performed at: WB Performed By: #### [id number] #### [facility] [address] [place] [address] Dr. Luis Virgen Performed by: Comment Normal [facility] Comment on above: Result Comment: Maureen Del Cid, Thrasher Feeder (ASCP) Performed at: WB Performed By: #### [id number] #### [facility] [address] [place] [address] Dr. Luis Virgen Specimen adequacy: Comment Normal [facility] Comment on above: Result Comment: Sati sfactory for evaluation. Endocervical and/or squamous metaplastic cells (endocervical component) are present. Performed at: WB Performed By: #### 4 [id number] #### [facility] [address] [place] [address] Dr. Luis Virgen URon 08-20-2021 , QUAL Negative Normal NEGATIVE [facility] Comment on above: Performed By: #### P REGU #### [facility] [address] [place] [address] Dr. Luis Virgen CBC AUTO DIFFon 08-06-2021 BASO # 0.0 103/ul Normal 0.0-0.1 [facility] Comment on above: Performed By: #### C BC #### [facility] [address] [place] [address] Dr. Luis Virgen Basophils/100 WBC (Bld) 0.3 % Normal 0.2-2.0 [facility] Comment on above: Performed By: #### C BC #### [facility] [address] [place] [address] Dr. Luis Virgen EO # 0.0 103/ul Normal 0.0-0.7 [facility] Comment on above: Performed By: #### C BC #### [facility] [address] [place] [address] Dr. Luis Virgen Eosinophils/100 WBC (Bld) 0.3 % Critically low 0.9-7.0 [facility] Comment on above: Performed By: #### C BC #### [facility] [address] [place] [address] Dr. Luis Virgen Erythrocyte distribution width (RBC) [Ratio] 12.6 % Normal 11.0-15.0 [facility] Comment on above: Performed By: #### C BC #### [facility] [address] [place] [address] Dr. Luis Virgen Hematocrit (Bld) [Volume fraction] 41.5 % Normal 36.0-48.0 [facility] Comment on above: Performed By: #### C BC #### [facility] [address] [place] [address] Dr. Luis Virgen Hemoglobin (Bld) [Mass/Vol] 13.5 g/dL Normal 12.0-16.0 [facility] Comment on above: Performed By: #### C BC #### [facility] [address] [place] [address] Dr. Luis Virgen IG # 0.03 10e3/ul Normal 0.00-0.03 [facility] Comment on above: Performed By: #### C BC #### [facility] [address] [place] [address] Dr. Luis Virgen IG % 0.4 % Normal 0.0-0.5 [facility] Comment on above: Performed By: #### C BC #### [facility] [address] [place] [address] Dr. Luis Virgen LYMPH # 2.4 103/ul Normal 1.2-3.8 [facility] Comment on above: Performed By: #### C BC #### [facility] [address] [place] [address] Dr. Luis Virgen Lymphocytes/100 WBC (Bld) 31.8 % Normal 20.5-60.0 [facility] Comment on above: Performed By: #### C BC #### [facility] [address] [place] [address] Dr. Luis Virgen MANUAL DIFF REQ NO Normal [facility] Comment on above: Performed By: #### C BC #### [facility] [address] [place] [address] Dr. Luis Virgen MCH (RBC) [Entitic mass] 30.5 pg Normal 26.7-34.0 [facility] Comment on above: Performed By: #### C BC #### [facility] [address] [place] [address] Dr. Luis Virgen MCHC (RBC) [Mass/Vol] 32.5 g/dL Normal 29.9-35.2 [facility] Comment on above: Performed By: #### C BC #### [facility] [address] [place] [address] Dr. Luis Virgen MCV (RBC) [Entitic vol] 93.9 fL Normal 81.0-99.0 [facility] Comment on above: Performed By: #### C BC #### [facility] [address] [place] [address] Dr. Luis Virgen MONO # 0.6 103/ul Normal 0.3-0.8 [facility] Comment on above: Performed By: #### C BC #### [facility] [address] [place] [address] Dr. Luis Virgen Monocytes/100 WBC (Bld) 7.4 % Normal 1.7-12.0 [facility] Comment on above: Performed By: #### C BC #### [facility] [address] [place] [address] Dr. Luis Virgen NEUT # 4.5 103/ul Normal 1.4-6.5 [facility] Comment on above: Performed By: #### C BC #### [facility] [address] [place] [address] Dr. Luis Virgen Neutrophils/100 WBC (Bld) 59.8 % Normal 43.0-75.0 [facility] Comment on above: Performed By: #### C BC #### [facility] [address] [place] [address] Dr. Luis Virgen Platelet mean volume (Bld) [Entitic vol] 10.0 fL Normal 9.5-13.5 [facility] Comment on above: Performed By: #### C BC #### [facility] [address] [place] [address] Dr. Luis Virgen PLT 337 103/ul Normal 150-450 [facility] Comment on above: Performed By: #### C BC #### [facility] [address] [place] [address] Dr. Luis Virgen RBC 4.42 106/ul Normal 4.20-5.40 [facility] Comment on above: Performed By: #### C BC #### [facility] [address] [place] [address] Dr. Luis Virgen WBC 7.6 103/ul Normal 4.0-11.0 [facility] Comment on above: Performed By: #### C BC #### [facility] [address] [place] [address] Dr. Luis Virgen FREE T4on 08-06-2021 Free T4 [Mass/Vol] 0.91 ng/dL Normal 0.76-1.46 [place] Comment on above: Performed By: #### F T4 #### [facility] [address] [place] [address] Dr. Luis Virgen LIPID PROFILEon 08-06-2021 CHOL-HDL RATIO NORM SEE BELOW Normal [facility] Comment on above: Result Comment: 3.3 - 4.4 LOW RISK 4.4 - 7.1 AVERAGE RISK 7.1 - 11.0 MODERATE RISK >11.0 HIGH RISK Performed By: #### C MP, TSH, LIPID #### [facility] [address] [place] [address] Dr. Luis Virgen Cholesterol [Mass/Vol] 154 mg/dL Normal <=200 [facility] Comment on above: Performed By: #### C MP, TSH, LIPID #### [facility] [address] [place] [address] Dr. Luis Virgen Cholesterol in HDL [Mass/Vol] 35 mg/dL Critically low 40-60 [facility] Comment on above: Performed By: #### C MP, TSH, LIPID #### [facility] [address] [place] [address] Dr. Luis Virgen Cholesterol in LDL [Mass/Vol] 80.8 mg/dL Normal [facility] Comment on above: Performed By: #### C MP, TSH, LIPID #### [facility] [address] [address] [address] Luis Virgen Cholesterol.total/C holesterol in HDL [Mass ratio] 4.4 {ratio} Normal [facility] Comment on above: Performed By: #### C MP, TSH, LIPID #### [facility] [address] [address] [address] Luis Virgen HDL NORMAL > or = 60 mg/dl - LO W CARDIOVASCULAR RISK <40 mg/dl - HIGH CARDIOVASCULAR RISK Normal [facility] Comment on above: Performed By: #### C MP, TSH, LIPID #### [facility] [address] [address] [address] Luis Virgen LDL CALC NORMAL SEE BELOW Normal [facility] Comment on above: Result Comment: <100 mg/dl OPTIMAL 100 - 129 mg/dl NEAR OR ABOVE OPTIMAL 130 - 159 mg/dl BORDERLINE HIGH 160 - 189 mg/dl HIGH >190 mg/dl VERY HIGH Performed By: #### C MP, TSH, LIPID #### [facility] [address] [address] [address] Luis Virgen Triglyceride [Mass/Vol] 191 mg/dL Critically high <=150 [facility] Comment on above: Performed By: #### C MP, TSH, LIPID #### [facility] [address] [place] [address] Dr. Luis Virgen VLDL CALC 38.2 mg/dL Normal [facility] Comment on above: Performed By: #### C MP, TSH, LIPID #### [facility] [address] [address] [address] Luis Virgen PROF 14(COMP METB)on 022 Albumin [Mass/Vol] 4.1 g/dL Normal 3.4-5.0 [place] Comment on above: Performed By: #### C MP, TSH, LIPID #### [facility] [address] [address] [address] Luis Virgen Albumin/Globulin [Mass ratio] 1.2 {ratio} Normal [facility] Comment on above: Performed By: #### C MP, TSH, LIPID #### [facility] [address] [address] [address] Luis Virgen ALP [Catalytic activity/Vol] 73 U/L Normal 46-116 [facility] Comment on above: Performed By: #### C MP, TSH, LIPID #### [facility] [address] [place] [address] Dr. Luis Virgen ALT [Catalytic activity/Vol] 24 U/L Normal 14-59 [facility] Comment on above: Performed By: #### C MP, TSH, LIPID #### [facility] [address] [address] [address] Luis Virgen Anion gap [Moles/Vol] 13.2 mmol/L Normal [facility] Comment on above: Performed By: #### C MP, TSH, LIPID #### [facility] [address] [address] [address] Luis Virgen AST [Catalytic activity/Vol] 11 U/L Critically low 15-37 [facility] Comment on above: Performed By: #### C MP, TSH, LIPID #### [facility] [address] [address] [address] Luis Virgen Bilirubin [Mass/Vol] 0.8 mg/dL Normal 0.2-1.0 [facility] Comment on above: Performed By: #### C MP, TSH, LIPID #### [facility] [address] [address] [address] Luis Virgen Calcium [Mass/Vol] 8.9 mg/dL Normal 8.5-10.1 [place] Comment on above: Performed By: #### C MP, TSH, LIPID #### [facility] [address] [address] [address] Luis Virgen Chloride [Moles/Vol] 103 mmol/L Normal 98-107 [facility] Comment on above: Performed By: #### C MP, TSH, LIPID #### [facility] [address] [address] [address] Luis Virgen CO2 [Moles/Vol] 27.5 mmol/L Normal 21.0-32.0 [facility] Comment on above: Performed By: #### C MP, TSH, LIPID #### [facility] [address] [address] [address] Luis Virgen Creatinine [Mass/Vol] 0.71 mg/dL Normal 0.55-1.02 [facility] Comment on above: Performed By: #### C MP, TSH, LIPID #### [facility] [address] [address] [address] Luis Virgen EGFR-AF YEMENI >60 Normal >=60 [facility] Comment on above: Performed By: #### C MP, TSH, LIPID #### [facility] [address] [address] [address] Luis Virgen EGFR-NON AF YEMENI >60 Normal >=60 [facility] Comment on above: Performed By: #### C MP, TSH, LIPID #### [facility] [address] [address] [address] Luis Virgen Globulin (S) [Mass/Vol] 3.5 g/dL Normal [facility] Comment on above: Performed By: #### C MP, TSH, LIPID #### [facility] [address] [address] [address] Luis Virgen Glucose [Mass/Vol] 101 mg/dL Normal 74-106 [place] Comment on above: Performed By: #### C MP, TSH, LIPID #### [facility] [address] [address] [address] Luis Virgen Potassium [Moles/Vol] 4.7 mmol/L Normal 3.5-5.1 [facility] Comment on above: Performed By: #### C MP, TSH, LIPID #### [facility] [address] [address] [address] Luis Virgen Protein [Mass/Vol] 7.6 g/dL Normal 6.4-8.2 [facility] Comment on above: Performed By: #### C MP, TSH, LIPID #### [facility] [address] [address] [address] Luis Virgen Sodium [Moles/Vol] 139 mmol/L Normal 136-145 [facility] Comment on above: Performed By: #### C MP, TSH, LIPID #### [facility] [address] [address] [address] Luis Virgen Urea nitrogen [Mass/Vol] 9.0 mg/dL Normal 7.0-18.0 [facility] Comment on above: Performed By: #### C MP, TSH, LIPID #### [facility] [address] [place] [address] Dr. Luis Virgen Urea nitrogen/Creatinine [Mass ratio] 12.7 mg/mg Normal [facility] Comment on above: Performed By: #### C MP, TSH, LIPID #### [facility] [address] [place] [address] Dr. Luis Virgen TSHon 08-06-2021 TSH 0.924 uIU/mL Normal 0.358-3.740 [facility] Comment on above: Performed By: #### C MP, TSH, LIPID #### [facility] [address] [place] [address] Dr. Luis Virgen TSH RANGE SEE BELOW Normal [facility] Comment on above: Result Comment: <0.3 4 UIU/ml HYPERTHYROID 0.34-5.60 UIU/ml EUTHYROID >5.60 UIU/ml HYPOTHYROID Performed By: #### C MP, TSH, LIPID #### [facility] [address] [place] [address] Dr. Luis Virgen Vital Signs Date Time Vital Sign Value Performing Clinician Quinn elizondo 09-02-2024 10:47-0400 Body mass index (BMI) [Ratio] 33.6 kg/m2 [employer] Work Phone: [facility] 09-02-2024 10:47-0400 Body weight 80.65 kg [employer] Work Phone: [facility] 09-02-2024 10:47-0400 Diastolic blood pressure 70 mm[Hg] [employer] Work Phone: [facility] 09-02-2024 10:47-0400 Systolic blood pressure 120 mm[Hg] [employer] Work Phone: [facility] 08-18-2024 09:37-0400 Body mass index (BMI) [Ratio] 33.07 kg/m2 Cely Nolenerly [employer] Work Phone: [facility] 08-18-2024 09:37-0400 Body weight 79.38 kg Cely Nolenerly [employer] Work Phone: [facility] 08-18-2024 09:37-0400 Diastolic blood pressure 82 mm[Hg] Cely Tobiasly [employer] Work Phone: [facility] 08-18-2024 09:37-0400 Systolic blood pressure 116 mm[Hg] Cely Tobiasly [employer] Work Phone: [facility] 08-04-2024 14:31-0400 Body mass index (BMI) [Ratio] 32.95 kg/m2 Slava Gloria DO Work Phone: [facility] 08-04-2024 14:31-0400 Body weight 79.11 kg Slava Gloria DO Work Phone: [facility] 08-04-2024 14:31-0400 Diastolic blood pressure 76 mm[Hg] Slava Gloria DO Work Phone: [facility] 08-04-2024 14:31-0400 Systolic blood pressure 120 mm[Hg] Slava Gloria DO Work Phone: [facility] 07-21-2024 14:30-0400 Body mass index (BMI) [Ratio] 33.14 kg/m2 Vidya DESAI Work Phone: [facility] 07-21-2024 14:30-0400 Body weight 79.56 kg Vidya DESAI Work Phone: [facility] 07-21-2024 14:30-0400 Diastolic blood pressure 74 mm[Hg] Vidya DESAI Work Phone: [facility] 07-21-2024 14:30-0400 Systolic blood pressure 110 mm[Hg] Vidya DESAI Work Phone: [facility] 07-06-2024 14:09-0400 Body mass index (BMI) [Ratio] 32.69 kg/m2 Slava Gloria DO Work Phone: [facility] 07-06-2024 14:09-0400 Body weight 78.47 kg Slava Gloria DO Work Phone: [facility] 07-06-2024 14:09-0400 Diastolic blood pressure 72 mm[Hg] Slava Gloria DO Work Phone: [facility] 07-06-2024 14:09-0400 Systolic blood pressure 118 mm[Hg] Slava Gloria DO Work Phone: [facility] 06-16-2024 14:05-0400 Body mass index (BMI) [Ratio] 32.12 kg/m2 Cely Carver [employer] Work Phone: [facility] 06-16-2024 14:05-0400 Body weight 77.11 kg Cely Carver [employer] Work Phone: [facility] 06-16-2024 14:05-0400 Diastolic blood pressure 70 mm[Hg] Cely Mehul [employer]PER[employer]ATE Work Phone: [facility] 06-16-2024 14:05-0400 Systolic blood pressure 114 mm[Hg] Cely Mehul [employer] Work Phone: [facility] 04-07-2024 15:02-0500 Body mass index (BMI) [Ratio] 30.8 kg/m2 Vidya DESAI Work Phone: [facility] 04-07-2024 15:02-0500 Body weight 73.94 kg Vidya DESAI Work Phone: [facility] 04-07-2024 15:02-0500 Diastolic blood pressure 62 mm[Hg] Vidya DESAI Work Phone: [facility] 04-07-2024 15:02-0500 Systolic blood pressure 116 mm[Hg] Vidya DESAI Work Phone: [facility] 03-10-2024 14:45-0500 Body mass index (BMI) [Ratio] 30.63 kg/m2 Slava Gloria DO Work Phone: [facility] 03-10-2024 14:45-0500 Body weight 73.54 kg Slava Gloria DO Work Phone: [facility] 03-10-2024 14:45-0500 Diastolic blood pressure 66 mm[Hg] Slava Gloria DO Work Phone: [facility] 03-10-2024 14:45-0500 Systolic blood pressure 110 mm[Hg] Slava Gloria DO Work Phone: [facility] 02-11-2024 10:34-0500 Body mass index (BMI) [Ratio] 30.69 kg/m2 Nom Nurse [facility] 02-11-2024 10:34-0500 Body weight 73.66 kg Nom Nurse [facility] 02-11-2024 10:34-0500 Diastolic blood pressure 77 mm[Hg] [facility] Nurse [facility] 02-11-2024 10:34-0500 Systolic blood pressure 110 mm[Hg] Nom Nurse [facility] 12-10-2023 13:12-0400 Body mass index (BMI) [Ratio] 30.76 kg/m2 Slava Gloria DO Work Phone: [facility] 12-10-2023 13:12-0400 Body weight 73.85 kg Slava Gloria DO Work Phone: [facility] 12-10-2023 13:12-0400 Diastolic blood pressure 78 mm[Hg] Slava Gloria DO Work Phone: [facility] 12-10-2023 13:12-0400 Systolic blood pressure 116 mm[Hg] Slava Gloria DO Work Phone: [facility] Healthcare Encounters Encounter Date Encounter Type Care Provider Facility Start: 09-02-2024 End: 09-02-2024 Bamboo flowsheet Slava Gloria DO Work Phone: [facility] Start: 09-02-2024 End: 09-02-2024 Bamboo flowsheet Slava Gloria DO Work Phone: [facility] Start: 09-02-2024 End: 09-02-2024 Office outpatient visit 15 minutes Slava Gloria DO Work Phone: [facility] Comment on above: 36 weeks gestation o f ([facility]); Third trimester ([facility]); History of gestational diabetes; Antepartum multigravida of advanced maternal age ([facility]) Start: 09-01-2024 End: 09-01-2024 Clinisync Result Encounter [...] Start: 08-23-2024 End: 08-23-2024 Refill Анна Ha [employer] Work Phone: [facility] Comment on above: Primary insomnia Start: 08-18-2024 End: 08-18-2024 Bamboo flowsheet Cely Carver [employer] Work Phone: [facility] Start: 08-18-2024 End: 08-18-2024 Bamboo flowsheet Cely Mehul [employer] Work Phone: [facility] Start: 08-18-2024 End: 08-18-2024 Clinisync Result Encounter Generic External Data Provider [facility] External Department Unsolicited Start: 08-18-2024 End: 08-18-2024 Office outpatient visit 15 minutes Cely Carver [employer] Work Phone: [facility] Comment on above: Third trimester preg eileen ([facility]); 34 weeks gestation of ([facility]) Start: 08-18-2024 End: 08-18-2024 ambulatory CELY TOBIASLY [...] OB Comment on above: Third trimester preg ieleen; 30 weeks gestation of ; History of [...] 06-16-2024 End: 06-16-2024 Bamboo flowsheet Cely Carver [employer]ATE Work Phone: [facility] Start: 06-16-2024 End: 06-17-2024 Bamboo flowsheet Cely Carver [employer]ATE Work Phone: [facility] Start: 06-16-2024 End: 06-17-2024 External Result Encounter Slava Gloria DO Work Phone: [facility] Unsolicited Start: 06-16-2024 End: 06-16-2024 Office outpatient visit 15 minutes Cely Carver [employer]ATE Work Phone: [facility] Comment on [...] Start: 02-27-2024 End: 02-27-2024 ambulatory Slava Gloria [facility] Work Phone: Start: 02-27-2024 End: 02-27-2024 Departed Referred Slava Gloria DO Work Phone: [facility] Start: 02-27-2024 End: 02-27-2024 Clinisync Result Encounter Generic External Data Provider [facility] External Department Unsolicited Start: 02-27-2024 End: 02-27-2024 Clinisync Result Encounter Generic External Data Provider [facility] External Department Unsolicited Start: 02-25-2024 End: 02-26-2024 Refill Анна Leland [employer]ATE Work Phone: [facility] Comment on [...] 06-30-2023 ambulatory MD Dar Brody Work Phone: [facility] Work Phone: Start: 06-30-2023 End: 06-30-2023 Departed Referred MD Dar Brody Work Phone: [facility] Start: 02-20-2022 End: 02-20-2022 ambulatory BUSINESS OBJECTS ANALYST АННА AICHHOLZ Facility:[facility] Start: 11-06-2021 End: 11-06-[address] SLAVA CASTRO Facility:[facility] Start: 08-20-2021 End: 08-20-2021 ambulatory BUSINESS OBJECTS ANALYST АННА AICHHOLZ Facility:[facility] Start: 08-06-2021 End: 08-07-2021 ambulatory BUSINESS OBJECTS ANALYST АННА AICHHOLZ Facility:[facility] Procedures Date Procedure Procedure [...] ALL CBC WITH AUTO DIFF Cely Carver [employer] Work Phone: Start: 06-16-2024 RECURRENT VAGINITIS (HTRX) Slava Gloria DO Work Phone: Start: 06-16-2024 Urnls dip stick/tabl et rgnt non-auto w/o micrscp Cely Carver [employer] Work Phone: Start: 04-10-2024 GLUCOSE 1 HOUR [...] in Cervix by Cyto stain Cely Carver [employer]PER[employer] ASS[employer]IATE Work Phone: Start: 12-10-2023 Cytp cerv/vag auto t hin layer prep mnl screen Slava [employer] Work Phone: Start: 11-25-2022 Microscopic observat ion [Identifier] [facility] Plan of Treatment Date Care Activity Detail Author Start: 12-09-2028 Screening for malign ant neoplasm of cervix [facility] Start: 11-25-2025 Screening for malign ant neoplasm of cervix [facility] Start: 12-15-2024 End: 12-15-2024 Patient encounter procedure 12/15/2024 3:00 PM EDT Office Visit [facility] [address] [place] [address] Slava Castro DO [address] [place] [address] [facility] Start: 09-09-2024 End: 09-09-2024 Patient encounter procedure 09/09/2024 11:50 AM EDT Routine [facility] [address] [place] [address] Slava Castro, DO [address], [place] [id number] [facility] Start: 09-07-2024 End: 09-07-2024 Patient encounter procedure 09/07/2024 1:00 PM EDT Office Visit [facility] [address] [place] [address] Анна Ha, [employer]IATE [address] [place] [address] [facility] Start: 09-02-2024 End: 09-02-2025 CULTURE, GROUP B STREP WITH SUSCEPTIBLITY CULTURE, GROUP B STREP WITH SUSCEPTIBLITY Lab Routine Third trimester ([facility]) Expected: 09/02/2024, Expires: 09/02/2025 [facility] Work Phone: Comment on above: Expected: 09/02/2024 , Expires: 09/02/2025 Start: 09-02-2024 End: 09-02-2024 Patient encounter procedure [facility] Comment on above: Arrived Start: 08-18-2024 End: 08-18-2024 Patient encounter procedure [facility] Comment on above: Arrived Start: 08-04-2024 End: 08-04-2024 Patient encounter procedure 08/04/2024 2:20 PM EDT Routine [facility] [address] [place] [phone] Slava Castro DO [address] [place] [address] [facility] Start: 07-21-2024 End: 07-21-2024 Patient encounter procedure 07/21/2024 2:20 PM EDT Routine [facility] [address] [place] [phone] Vidya Jackson PA [address] [place] [address] [facility] Start: 07-21-2024 End: 01-21-2025 US biophysical profile w non stress test US biophysical profile w non stress test Imaging Routine History of gestational diabetes Expected: 07/21/2024 (Approximate), Expires: 01/21/2025 [facility] Work Phone: Comment on above: Expected: 07/21/2024 (Approximate), Expires: 01/21/2025 Start: 07-21-2024 End: 11-21-2024 US for US OB follow up transabdominal approach Imaging Routine History of gestational diabetes Expected: 07/21/2024, Expires: 11/21/2024 [facility] Comment on above: Expected: 07/21/2024 , Expires: 11/21/2024 Start: 07-06-2024 End: 07-06-2025 Measurement of glucose 1 hour after glucose challenge for glucose tolerance test Glucose tolerance, 1 hour Lab Routine Diabetes mellitus screening Expected: 07/06/2024 (Approximate), Expires: 07/06/2025 [facility] Work Phone: Comment on above: Expected: 07/06/2024 (Approximate), Expires: 07/06/2025 Start: 07-06-2024 End: 11-06-2024 US for US OB follow up transabdominal approach Imaging Routine SGA (small for gestational age) Expected: 07/06/2024, Expires: 11/06/2024 [facility] Comment on above: Expected: 07/06/2024 , Expires: 11/06/2024 Start: 07-06-2024 End: 07-06-2024 Patient encounter procedure 07/06/2024 1:50 PM EDT Routine [facility] [address] [place] [address] Slava Castro, [address], [place] [phone] [facility] Start: 07-06-2024 End: 07-06-2024 Professional / ancillary services management 07/06/2024 1:30 PM EDT Ancillary Procedure [facility] [address] [place] [phone] [facility] Start: 06-16-2024 End: 06-16-2025 CBC panel - Blood by Automated count CBC Lab Routine Diabetes mellitus screening Expected: 06/16/2024 (Approximate), Expires: 06/16/2025 [facility] Comment on above: Expected: 06/16/2024 (Approximate), Expires: 06/16/2025 Start: 06-16-2024 End: 06-16-2025 Measurement of glucose 1 hour after glucose challenge for glucose tolerance test Glucose tolerance, 1 hour Lab Routine Diabetes mellitus screening Expected: 06/16/2024 (Approximate), Expires: 06/16/2025 [facility] Comment on above: Expected: 06/16/2024 (Approximate), Expires: 06/16/2025 Start: 06-16-2024 End: 10-16-2024 US for US OB follow up transabdominal approach Imaging Routine Antepartum multigravida of advanced maternal age Expected: 06/16/2024, Expires: 10/16/2024 [facility] Work Phone: Comment on above: Expected: 06/16/2024 , Expires: 10/16/2024 Start: 06-16-2024 End: 06-16-2024 Patient encounter procedure 06/16/2024 1:20 PM EDT Routine [facility] [address] [place] [phone] Cely Carver, [employer]OCIATE [address] [place] [phone] Arrived [facility] Comment on above: Arrived Start: 05-10-2024 End: 05-10-2024 Patient encounter procedure 05/10/2024 2:40 PM EDT Routine [facility] [address] [place] [phone] Slava Castro DO [address] [place] [address] [facility] Start: 05-10-2024 End: 05-10-2024 Professional / ancillary services management 05/10/2024 1:30 PM EDT Ancillary Procedure [facility] [address] [place] [phone] [facility] Start: 04-07-2024 End: 04-07-2024 Patient encounter procedure [facility] Comment on above: Arrived Start: 04-07-2024 End: 05-05-2024 Alpha fetoprotein, maternal Alpha fetoprotein, maternal Lab Routine Need for maternal serum alpha-protein (MSAFP) screening Expected: 04/07/2024 (Approximate), Expires: 05/05/2024 [facility] Comment on above: Expected: 04/07/2024 (Approximate), Expires: 05/05/2024 Start: 04-07-2024 End: 04-07-2025 Measurement of glucose 1 hour after glucose challenge for glucose tolerance test Glucose tolerance, 1 hour Lab Routine Diabetes mellitus screening Expected: 04/07/2024 (Approximate), Expires: 04/07/2025 [facility] Healthcare Work Phone: Comment on above: Expected: 04/07/2024 (Approximate), Expires: 04/07/2025 Start: 04-07-2024 End: 04-07-2025 US for US OB 14+ weeks anatomy scan Imaging Routine Screening, , for anatomic survey Expected: 04/07/2024, Expires: 04/07/2025 [facility] Comment on above: Expected: 04/07/2024 , Expires: 04/07/2025 Start: 03-10-2024 End: 03-10-2024 Patient encounter procedure 03/10/2024 2:20 PM EST Routine [facility] [address] [place] [phone] Slava Castro, [address] [place] [address] [facility] Start: 03-02-2024 End: 03-02-2024 Patient encounter procedure 03/02/2024 9:40 AM EST Office Visit [facility] [address] [place] [address] Анна Ha, VÍCTOR [address] [place] [address] [facility] Start: 02-27-2024 Urine culture [facility] Start: 02-27-2024 Bacteria identified in Urine by Culture Urine Culture [facility] Start: 02-11-2024 End: 02-10-2025 ABO/Rh ABO/Rh Lab Routine Missed menses , unspecified gestational age Expected: 02/11/2024 (Approximate), Expires: 02/10/2025 [facility] Comment on above: Expected: 02/11/2024 (Approximate), Expires: 02/10/2025 Start: 02-11-2024 End: 02-10-2025 Blood type and Indirect antibody screen panel - Blood Type and screen Lab Routine Missed menses , unspecified gestational age Expected: 02/11/2024 (Approximate), Expires: 02/10/2025 [facility] Work Phone: Comment on above: Expected: 02/11/2024 (Approximate), Expires: 02/10/2025 Start: 02-11-2024 End: 02-10-2025 Drugs of abuse panel - Urine by Screen method Rapid drug screen, urine Lab Routine , unspecified gestational age Encounter for supervision of normal first in first trimester Expected: 02/11/2024 (Approximate), Expires: 02/10/2025 [facility] Comment on above: Expected: 02/11/2024 (Approximate), Expires: 02/10/2025 Start: 02-11-2024 End: 02-10-2025 US Pelvis transvaginal US OB transvaginal Imaging Routine Missed menses Expected: 02/11/2024 (Approximate), Expires: 02/10/2025 [facility] Healthcare Comment on above: Expected: 02/11/2024 (Approximate), Expires: 02/10/2025 Start: 02-11-2024 End: 02-11-2024 ambulatory 02/11/2024 10:00 AM EST Initial [facility] [address] [place] [address] [facility] Start: 02-11-2024 End: 02-11-2024 Professional / ancillary services management 02/11/2024 9:30 AM EST Ancillary Procedure [facility] [address] [place] [address] [facility] Start: 2018 Screening for malign ant neoplasm of cervix HPV/Cotest [facility] Bacteria identified in Urine by Culture Urine culture Microbiology Routine Missed menses Ordered: 02/11/2024 [facility] Comment on above: Ordered: 02/11/2024 CBC W Auto Different ial panel - Blood CBC and differential Lab Routine Missed menses , unspecified gestational age Ordered: 02/11/2024 [facility] Comment on above: Ordered: 02/11/2024 CHLAMYDIA TRACHOMATI S (GENITO/STI) CHLAMYDIA TRACHOMATIS (GENITO/STI) Lab Routine Screen for STD (sexually transmitted disease) Ordered: 06/16/2024 [facility] Comment on above: Ordered: 06/16/2024 Cytology Cervical or vaginal smear or scraping study Pap Smear Pathology and Cytology Routine Well woman exam with routine gynecological exam Ordered: 12/10/2023 [facility] Work Phone: Comment on above: Ordered: 12/10/2023 Hemoglobin A1c/Hemoglobin.total in Blood Hemoglobin A1c Lab Routine Missed menses , unspecified gestational age Ordered: 02/11/2024 [facility] Comment on above: Ordered: 02/11/2024 Hepatitis B virus surface Ag [Presence] in Serum or Plasma by Immunoassay Hepatitis B surface antigen Lab Routine Missed menses , unspecified gestational age Ordered: 02/11/2024 [facility] Comment on above: Ordered: 02/11/2024 Hepatitis C virus Ab [Presence] in Serum or Plasma by Immunoassay Hepatitis C antibody Lab Routine Missed menses , unspecified gestational age Ordered: 02/11/2024 [facility] Comment on above: Ordered: 02/11/2024 HIV-1/HIV-2 antigen/antibody combination immunoassay HIV-1 and HIV-2 antibodies Lab Routine Missed menses , unspecified gestational age Ordered: 02/11/2024 [facility] Comment on above: Ordered: 02/11/2024 Human papilloma viru s DNA [Presence] in Unspecified specimen by Probe with amplification HPV DNA probe, amplified Microbiology Routine Well woman exam with routine gynecological exam Ordered: 12/10/2023 [facility] Comment on above: Ordered: 12/10/2023 Neisseria gonorrhoea e DNA [Presence] in Unspecified specimen by JUAN with probe detection Neisseria gonorrhea DNA probe, direct Lab Routine Screen for STD (sexually transmitted disease) Ordered: 06/16/2024 [facility] Comment on above: Ordered: 06/16/2024 Reagin Ab [Presence] in Serum by RPR RPR Lab Routine Missed menses , unspecified gestational age Ordered: 02/11/2024 [facility] Comment on above: Ordered: 02/11/2024 Rubella antibody, IgG Rubella an tibody, IgG Lab Routine Missed menses , unspecified gestational age Ordered: 02/11/2024 [facility] Comment on above: Ordered: 02/11/2024 SURESWAB(R) ADVANCED VAGINITIS PLUS, TMA SURESWAB(R) ADVANCED VAGINITIS PLUS, TMA Pathology and Cytology Routine Screen for STD (sexually transmitted disease) Ordered: 06/16/2024 [facility] Work Phone: Comment on above: Ordered: 06/16/2024 Immunizations Immunization Date Immunization Notes Care Provider Joan ornelas 12-08-2017 influenza, seasonal, injectable, preservative free Slava Francozio DO Work Phone: [facility] Payers Date Payer Category Payer Self-pay [id number] 2023 Managed Care HMO (unspecified) [employer] [id number] 2023 Private Health Insurance [id number] 2022 Medicaid (Managed Care) [employer] [id number] 1988 Unknown [id number] 2.840.1.312444.3.579. 2.593 1988 Unknown [id number] 2.840.1.860336.3.579. 2.59 1988 Unknown [id number] 2.840.1.151124.3.579. 2.593 1988 Unknown [id number] 2.840.1.399758.3.579. 2.593 1988 Unknown [id number] 2.840.1.922526.3.579. 2.1259 1988 Unknown [id number] 2.16840.1.200958.3.579. 2.1259 1988 Unknown [id number] 2.16840.1.343964.3.579. 2.1259 1988 Unknown [id number] 2.16840.1.886471.3.579. 2.1259 1988 Unknown [id number] 2.16840.1.231950.3.579. 2.9 1988 Unknown [id number] 2.16.840.1.435277.3.579. 2.1258 1988 Unknown [id number] 2.16.840.1.949507.3.579. 2.1258 1988 Unknown [id number] 2.16.840.1.337087.3.579. 2.1258 1988 Unknown [id number] 2.16.840.1.740265.3.579. 2.1258 1988 Unknown [id number] 2.16.840.1.062876.3.579. 2.1258 1988 Unknown [id number] 2.16840.1.780642.3.579. 2.1258 1988 Unknown [id number] 2.16.840.1.040492.3.579. 2.1258 1988 Unknown [id number] 2.16.840.1.515788.3.579. 2.9 1959 Unknown [id number] Private Health Insurance [employer] [id number] Unknown [id number] 2.16.840.1.842749.3.579. 2.531 Unknown [id number] 2.16.840.1.721844.3.579. 2.531 Social History Date Type Detail Facility Start: 03-05-2019 End: 03-05-2019 Tobacco smoking status [facility] Never smoked tobacco (finding) [facility] Start: 1990 Sex Assigned At Female [facility] Start: 10-30-2022 Tobacco smoking status [facility] Ex-smoker [facility] End: 02-24-2014 History of tobacco use Current smoker [facility] End: 02-24-2014 History of tobacco use Cigarette Smoker [facility] Start: 10-30-2022 Tobacco use and exposure Smokeless tobacco non-user [facility] Start: 12-10-2023 End: 09-02-2024 Alcoholic [...] [facility] Start: 02-28-2024 Sex Female (finding) [facility] Do you feel stress - tense, restless, [...] nursing note reviewed. Exam conducted with a emt/paramedic present. Vitals: Estimated body mass index is 33.6 kg/m as calculated from the following: Height as of 24: 5' 1 . Weight as of this encounter: 177 lb 12.8 oz. BP: 120/70 Patient's last menstrual period was 12/11/2023. ASSESSMENT & PLAN ICD-10-CM 1. 36 weeks gestation of ([facility]) Z3A.36 POCT urinalysis dipstick manually resulted 2. Third trimester ([facility]) Z34.93 POCT urinalysis dipstick manually resulted CULTURE, GROUP B STREP WITH SUSCEPTIBLITY CULTURE, GROUP B STREP WITH SUSCEPTIBLITY 3. History of gestational diabetes Z86.32 4. Antepartum multigravida of advanced maternal age ([facility]) O09.529 Patient is doing well but has [...] Slava Castro DO documented in this encounter [facility] 08-18-2024 History of Present illness Narrative [...] nursing note reviewed. Exam conducted with a emt/paramedic present. Vitals: Estimated body mass index is 33.07 kg/m as calculated from the following: Height as of 24: 5' 1 . Weight as of this encounter: 175 lb. BP: 116/82 Patient's last menstrual period was 12/11/2023. ASSESSMENT & PLAN ICD-10-CM 1. Third trimester ([facility]) Z34.93 2. 34 weeks gestation of ([facility]) Z3A.34 Return OB: Patient presents today for [...] Cely Carver NP documented in this encounter [facility] 08-04-2024 History of Present illness Narrative [...] for wellness examination in adult 09/01/2023 Depression ([facility]) 09/01/2023 Resolved Ambulatory Problems Diagnosis Date Noted Major depressive disorder, single episode, mild (HCC) ([facility]) 09/01/2023 Past Medical History: Diagnosis Date Abnormal Pap smear of cervix 2009 Contraception management Current mild episode of major depressive disorder without prior episode (HCC) ([facility]) Degenerative joint disease of spine Encounter for IUD removal History of abnormal cervical Pap smear LGSIL Pap smear of vagina 2012 Overweight (BMI 25.0-29.9) SVT (supraventricular tachycardia) ([facility]) Torn meniscus HISTORY PAST MEDICAL HISTORY SOCIAL HISTORY Past Medical History: Diagnosis Date Abnormal Pap smear of cervix 2009 Contraception management Current mild episode of major depressive disorder without prior episode (HCC) ([facility]) 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 Artis needs to stop with preg. Cat. C LGSIL Pap smear of vagina 2012 Overweight (BMI 25.0-29.9) SVT (supraventricular tachycardia) ([facility]) Torn meniscus Social History Tobacco Use Smoking [...] nursing note reviewed. Exam conducted with a emt/paramedic present. Vitals: Estimated body mass index is [...] Slava Castro DO documented in this encounter [facility] 07-21-2024 History of Present illness Narrative [...] GISELLE Cramer documented in this encounter [facility] 07-06-2024 History of Present illness Narrative [...] for wellness examination in adult 09/01/2023 Depression ([facility]) 09/01/2023 Resolved Ambulatory Problems Diagnosis Date Noted Major depressive disorder, single episode, mild (HCC) ([facility]) 09/01/2023 Past Medical History: Diagnosis Date Abnormal Pap smear of cervix 2009 Contraception management Current mild episode of major depressive disorder without prior episode (HCC) ([facility]) Degenerative joint disease of spine Encounter for [...] nursing note reviewed. Exam conducted with a emt/paramedic present. Vitals: Estimated body mass index is [...] Slava Castro DO documented in this encounter [facility] 06-16-2024 History of Present illness Narrative [...] for wellness examination in adult 09/01/2023 Depression ([facility]) 09/01/2023 Resolved Ambulatory Problems Diagnosis Date Noted Major depressive disorder, single episode, mild (HCC) ([facility]/HCC) 09/01/2023 Past Medical History: Diagnosis Date Abnormal Pap smear of cervix 2009 Contraception management Current mild episode of major depressive disorder without prior episode (HCC) ([facility]) Degenerative joint disease of spine Encounter for IUD removal History of abnormal cervical Pap smear LGSIL Pap smear of vagina 2012 Overweight (BMI 25.0-29.9) SVT (supraventricular tachycardia) ([facility]) Torn meniscus HISTORY PAST MEDICAL HISTORY SOCIAL HISTORY Past Medical History: Diagnosis Date Abnormal Pap smear of cervix 2009 Contraception management Current mild episode of major depressive disorder without prior episode (HCC) ([facility]) 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 Artis needs to stop with preg. Cat. C LGSIL Pap smear of vagina 2012 Overweight (BMI 25.0-29.9) SVT (supraventricular tachycardia) ([facility]) Torn meniscus Social History Tobacco Use Smoking [...] nursing note reviewed. Exam conducted with a emt/paramedic present. Vitals: Estimated body mass index is [...] Cely Carver NP documented in this encounter [facility] 04-07-2024 History of Present illness Narrative [...] GISELLE Cramer documented in this encounter [facility] 03-10-2024 History of Present illness Narrative [...] Noted Major depressive disorder, single episode, mild ([facility]) ([facility]) 09/01/2023 Past Medical History: Diagnosis Date Abnormal Pap smear of cervix 2009 Contraception management Current mild episode of major depressive disorder without prior episode (HCC) ([facility]) Degenerative joint disease of spine Encounter for IUD removal History of abnormal cervical Pap smear LGSIL Pap smear of vagina 2012 Overweight (BMI 25.0-29.9) SVT (supraventricular tachycardia) ([facility]) Torn meniscus HISTORY PAST MEDICAL HISTORY SOCIAL HISTORY Past Medical History: Diagnosis Date Abnormal Pap smear of cervix 2009 Contraception management Current mild episode of major depressive disorder without prior episode (HCC) ([facility]) 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 Artis needs to stop with preg. Cat. C LGSIL Pap smear of vagina 2012 Overweight (BMI 25.0-29.9) SVT (supraventricular tachycardia) ([facility]) Torn meniscus Social History Tobacco Use Smoking [...] nursing note reviewed. Exam conducted with a emt/paramedic present. Vitals: Estimated body mass index is [...] or undercooked meat, and stay away from formerly [facility]. Patient has been consulted regarding any [...] Slava Gloria, DO documented in this encounter [facility] 02-11-2024 History of Present illness Narrative [...] or undercooked meat, and stay away from formerly [facility]. Patient has also been advised to not change litter boxes and eat 6 small meals a day. Patient has been consulted regarding the do's and don'ts of . Patient was given labs and all questions and concerns were answered. Patient was given Gerber to have completed at 10 weeks. Follow Up: Patient is to return in 4 weeks for routine OB appointment. Follow Up: Patient is to have labs drawn at directed and return to office for initial OB appointment with provider. Patient may call office as needed with any concerns or questions. Nurse Visit Completed by: Lynnette Stapleton LPN documented in this encounter [facility] 12-10-2023 History of Present illness Narrative [...] nursing note reviewed. Exam conducted with a emt/paramedic present. Vitals: Estimated body mass index is [...] Evaluation note No assessment inform ation available [facility] Work Phone: Evaluation note Diagnosis Primary [...] diabetes mellitus SGA (small for gestational age) Jeolf-gqw-wotor without mention of malnutrition, unspecified (weight) documented [...] Major depressive disorder, single episode, mild (HCC) ([facility]/H[facility]) Major depressive disorder, single episode, mild Primary [...] 30-39.9) Depression, unspecified depression type Third trimester ([facility]) state, incidental 34 weeks gestation of ([facility]) [facility] this [facility] [...] unspecified depression type 36 weeks gestation of ([facility]) Third trimester ([facility]) state, incidental History of gestational diabetes Personal history of other genital system and obstetric disorders Antepartum multigravida of advanced maternal age ([facility]) documented in this encounter [facility] Summary [...] CREATED AUTHOR AUTHOR'S ORGANIZ ATION 03/06/2024 [facility] DATE CREATED AUTHOR AUTHOR'S ORGANIZ ATION 08/19/2024 [facility] Care Teams (unrecognized sec tion and content) Team Status: Active Member Role Status Dates Dar Brody MD Primary Care Provider Active Team Status: Inactive Member Role Status Dates Dar Brody MD Primary Care Provider Active Start: June 30, 2023 End: June 30, 2023 Slava Castro Attending Provider Active Start: Viky brewer 2023 End: June 30, 2023 Printing Plate Maker Relationship Specialty Start Date End Date Parag Bradley MD [address] [place] [address] PCP - General Family Medicine 08/14/22 Анна Ha NP [address] [place] [address] PCP - [facility] 08/25/23 Printing Plate Maker Relationship Specialty Start Date End Date Parag Bradley MD [address] [place] [address] PCP - General Family Medicine 08/14/22 Анна Ha NP [address] [place] [address] [facility] 08/25/23 Printing Plate Maker Relationship Specialty Start Date End Date Parag Bradley MD [address] [place] [address] PCP - [facility] 08/14/22 Анна Ha NP [address] [place] [address] [facility] 08/25/23 Printing Plate Maker Relationship Specialty Start Date End Date Parag Bradley MD [address] [place] [address] PCP - [facility] 08/14/22 Анна Ha NP [address] [place] [address] [facility] 08/25/23 Printing Plate Maker Relationship Specialty Start Date End Date Parag Bradley MD [address] [place] [address] PCP - [facility] 08/14/22 Анна Ha NP [address] [place] [address] [facility] 08/25/23 Printing Plate Maker Relationship Specialty Start Date End Date Parag Bradley MD [address] [place] [address] PCP - [facility] 08/14/22 Анна Ha NP [address] [place] [address] [facility] - [facility] 08/25/23 Team Status: Inactive Member Role Status Dates Slava Castro DO Attending Provider Active Start : February 27, 2024 End: February 27, 2024 Printing Plate Maker Relationship Specialty Start Date End Date Parag Bradley MD [address] [place] [address] PCP - [facility] 08/14/22 Анна Ha NP [address] [place] [address] [facility] 08/25/23 Printing Plate Maker Relationship Specialty Start Date End Date Parag Bradley MD [address] [place] [address] PCP - [facility] 08/14/22 Анна Ha NP [address] [place] [address] [facility] 08/25/23 Printing Plate Maker Relationship Specialty Start Date End Date Parag Bradley MD [address] [place] [address] PCP - [facility] 08/14/22 Анна Ha NP [address] [place] [address] [facility] 08/25/23 Printing Plate Maker Relationship Specialty Start Date End Date Parag Bradley MD [address] [place] [address] [facility] 08/14/22 Анна Ha NP [address] [place] [address] [facility] 08/25/23 Printing Plate Maker Relationship Specialty Start Date End Date Parag Bradley MD [address] [place] [address] [facility] 08/14/22 Анна Ha NP [address] [place] [address] [facility] 08/25/23 Goals (unrecognized section and content) [...] BE BASED ON THE PRIMARY CLINICAL RECORDS. [facility] [employer] provides no warranty or guarantee of the accuracy or completeness of information in this document.
--- OUTSIDE RECORDS SUMMARY | 2024-09-04 21:01 | XMS_ITS | Encounter Summary ---
Author Organization [facility] Address [address] [place] [address] Care Team Providers Care Insurance Agent Name Role Phone Parag Bradley MD Primary Care Provider Анна Ha NP Unavailable [phone] Encounter Details Date Type Department Care Team (Late st Contact Info) Description 03/01/2024 Abstract [facility] [address] [place] [address] Slava Castro, DO [address] [place], [facility] Social History Tobacco Use Types Packs/Day [...] any clubs o r organizations such as baptism groups, unions, fraternal or athletic groups, or [...] 09/01/2023 [facility] of Occupat ional [facility] - Occupational Stress Questionnaire Answer Date [...] Office Visit [facility] [address] [place] [address] Анна Ha NP [address] [place] [address] 09/09/2024 11:50 AM EDT Routine [facility] [address] [place] [address] Slava Castro, DO [address] [place], [place] [id number] 12/15/2024 3:00 PM EDT Office Visit [facility] [address] [place] [address] Slava Castro, DO [address] [place] [address] documented as of this encounter Goals Goal Patient Goal Type Associated Problems Recent Progress Patient-Stated? Author Reminders Care Plan OB Reminders No Open Scheduling, Background documented as of this encounter Visit Diagnoses Not on filedocumented in this encounter Additional Health Concerns Active Problems Noted Date Diagnosed Date OB Reminders 02/11/2024 documented as of this encounter Care Teams Insurance Agent Relationship Specialty Start Date End Date Parag Bradley MD [address] [place] [address] PCP - General Family Medicine 08/14/22 Анна Ha NP [address] [place] [address] PCP - [facility] 08/25/23 documented as of this encounter
--- OUTSIDE RECORDS SUMMARY | 2024-09-04 21:01 | XMS_ITS | Encounter Summary ---
Author Organization [facility] Address [address] [place] [address] Care Team Providers Care Beauty Advisor Name Role Phone Parag Bradley MD Primary Care Provider [phone] Анна Ha NP Unavailable [phone] Encounter Details Date Type Department Care Team (Late st Contact Info) Description 09/01/2024 Patient Outreach [facility] [address] [place] [address] Vidya Oliva, HARDWARE INSTALLER [address] [place], [place] [id number] Social History Tobacco Use Types Packs/Day Years [...] week 08/31/2024 How often do you attend [facility] or episcopal services? More than 4 times [...] Recorded Patient Health Questionnaire-2 Score 0 08/06/2024 [facility] - Occupational Stress Questionnaire Answer Date [...] in a half-way (including now)? No 05/19/2023 Housing Stability Vital Sign Answer Leonidas e Recorded In the last 12 months, was t here a time when you were not able to pay the mortgage or rent on time? No 08/31/2024 In the past 12 months, how m any times have you moved where you were living? 0 08/31/2024 At any time in the past 12 m [facility], were you homeless or living in a half-way (including now)? No 08/31/2024 Estimated Date of [...] [facility] [address] [place] [address] Анна Ha, VÍCTOR [address] [place] [address] 09/09/2024 11:50 AM EDT Routine [facility] [address] [place] [address] Slava Castro, DO [address] [facility] [address] [place], [place] [id number] 12/15/2024 3:00 PM EDT Office Visit [facility] [address] [place] [address] Slava Castro, DO [address] [facility] [address] [place], [place] [id number] documented as of this encounter Goals Goal Patient Goal Type Associated Problems Recent Progress Patient-Stated? Author Reminders Care Plan OB Reminders No Open Scheduling, Background documented as of this encounter Visit Diagnoses Not on filedocumented in this encounter Additional Health Concerns Active Problems Noted Date Diagnosed Date OB Reminders 02/11/2024 documented as of this encounter Care Teams Beauty Advisor Relationship Specialty Start Date End Date Parag Bradley MD [address] [place] [address] PCP - General Family Medicine 08/14/22 Анна Ha, VÍCTOR [address] [place] [address] PCP - [facility] 08/25/23 documented as of this encounter
--- OUTSIDE RECORDS SUMMARY | 2024-09-04 21:01 | XMS_ITS | Clinical Summary ---
Author Organization [facility] Address [address] [place] [address] Care Team Providers Care Conductor Pullman Name Role Phone Unavailable Primary Care Provider [...]
[2024-09-04 21:11] VITALS: BP 118/72; PULSE 80; TEMP 36.8
== END 2024-09-04 21:38 | disposition home or self-care (01) ==
LOC: FBCO 20:58 → FBC 21:02
PROVIDERS: PCP Nurse Practitioner; Visit Provider Obstetrics & Gynecology
DX: O09.523 Supervision of elderly multigravida, third trimester (principal); Z3A.37 37 weeks gestation of pregnancy
CPT/HCPCS: 59025

== ENCOUNTER 2024-09-08 11:02 | Outpatient (OUT) | payer OTHER, SELFPAY ==
--- NOTE | 2024-09-08 11:08 | US_ITS ---
The [address] [address] Patient Name: ROXANNE ROGERS MRN: [id number] date: 1990 Sex: F Assigned Patient Location: Current Patient Location: Accession/Order Number: [id number] Exam Date: 09/09/2024 08:04 Report Date: 09/09/2024 08:12 At the request of: SHADE JACKSON Procedure: US OB growth CLINICAL INFORMATION: History of gestational diabetes ULTRASOUND OB GROWTH COMPARISON: 07/28/2024 There is a single live intrauterine gestation in cephalic presentation. There is cardiac and somatic activity with heart rate of 147 bpm. The amniotic fluid index measures 9.7 cm which is in low-normal range. The placenta is posterior. The following measurements were obtained: Biparietal diameter 8.7 cm 35 weeks 2 days 11% Head circumference 32.6 cm 36 weeks 6 days 13% Abdominal circumference 31.9 cm 35 weeks 6 days 60% Femur length 6.6 cm 33 weeks 6 days <3% The composite ultrasound age based on these measurements is 35 weeks 3 days +/- 2 weeks 3 days. The estimated date of delivery is 10/10/2024. Estimated date of delivery based on the comparison is 09/28/2024 and on last menstrual period 09/24/2024. The estimated weight is 5 pounds 14 ounces +/- 14 ounces (10%) US/US OB BPP w non-stress IMPRESSION: SINGLE LIVE INTRAUTERINE GESTATION WITH ULTRASOUND AGE OF 35 WEEKS 3 DAYS. INTERVAL GROWTH AT THE LOWER LIMITS OF STANDARD DEVIATION FROM THE LAST STUDY. BIOPHYSICAL PROFILE: COMPARISON: 09/01/2024 FINDINGS: TONE: 1 or more episodes of activity extension and flexion of extremity or opening and closing of the hand [Y] 2/2 GROSS BODY MOVEMENTS: 3 or more discrete body or limb movements [Y] 2/2 BREATHING MOVEMENTS: 1 or more episodes of breathing lasting at least 30 seconds [Y] 0/2 LIVE: A single deepest vertical pocket of amniotic fluid greater than 2 cm [Y] 2/2 LIVE: 9.7 cm Total score: 08/01 IMPRESSION: FAILED BIOPHYSICAL PROFILE WITH NO BREATHING Impression dictated by: Isatu Auguste M.D. 09/09/2024 8:12 AM Dictation Location: [place] [address] Electronically authenticated by: [id number] Y Date: 09/09/2024 08:12
--- NOTE | 2024-09-08 11:20 | US_ITS ---
The [address] [address] Patient Name: ROXANNE ROGERS MRN: [id number] date: 1990 Sex: F Assigned Patient Location: [facility] Current Patient Location: Accession/Order Number: [id number] Exam Date: 09/09/2024 08:04 Report Date: 09/09/2024 08:12 At the request of: SHADE JACKSON Procedure: US OB growth CLINICAL INFORMATION: History of gestational diabetes ULTRASOUND OB GROWTH COMPARISON: 07/28/2024 There is a single live intrauterine gestation in cephalic presentation. There is cardiac and somatic activity with heart rate of 147 bpm. The amniotic fluid index measures 9.7 cm which is in low-normal range. The placenta is posterior. The following measurements were obtained: Biparietal diameter 8.7 cm 35 weeks 2 days 11% Head circumference 32.6 cm 36 weeks 6 days 13% Abdominal circumference 31.9 cm 35 weeks 6 days 60% Femur length 6.6 cm 33 weeks 6 days <3% The composite ultrasound age based on these measurements is 35 weeks 3 days +/- 2 weeks 3 days. The estimated date of delivery is 10/10/2024. Estimated date of delivery based on the comparison is 09/28/2024 and on last menstrual period 09/24/2024. The estimated weight is 5 pounds 14 ounces +/- 14 ounces (10%) US/US OB growth IMPRESSION: SINGLE LIVE INTRAUTERINE GESTATION WITH ULTRASOUND AGE OF 35 WEEKS 3 DAYS. INTERVAL GROWTH AT THE LOWER LIMITS OF STANDARD DEVIATION FROM THE LAST STUDY. BIOPHYSICAL PROFILE: COMPARISON: 09/01/2024 FINDINGS: TONE: 1 or more episodes of activity extension and flexion of extremity or opening and closing of the hand [Y] 2/2 GROSS BODY MOVEMENTS: 3 or more discrete body or limb movements [Y] 2/2 BREATHING MOVEMENTS: 1 or more episodes of breathing lasting at least 30 seconds [Y] 0/2 LIVE: A single deepest vertical pocket of amniotic fluid greater than 2 cm [Y] 2/2 LIVE: 9.7 cm Total score: 8 IMPRESSION: FAILED BIOPHYSICAL PROFILE WITH NO BREATHING Impression dictated by: Isatu Auguste M.D. 09/09/2024 8:12 AM Dictation Location: [place] [address] Electronically authenticated by: [id number] Y Date: 09/09/2024 08:12
[2024-09-08 12:01] VITALS: BP 126/83; PULSE 65
== END 2024-09-08 12:25 | disposition home or self-care (01) ==
LOC: US 11:02 → FBC 11:04
PROVIDERS: PCP Nurse Practitioner; Visit Provider Physician Assistant
DX: O36.5930 Maternal care for other known or suspected poor fetal growth, third trimester, not applicable or unspecified (principal); Z3A.37 37 weeks gestation of pregnancy; O09.523 Supervision of elderly multigravida, third trimester; Z86.32 Personal history of gestational diabetes
CPT/HCPCS: 76816; 76818

== ENCOUNTER 2024-09-11 10:58 | Outpatient (OUT) | payer OTHER, SELFPAY ==
--- OUTSIDE RECORDS SUMMARY | 2024-09-11 10:59 | XMS_ITS | CCD ---
Author Organization [facility] ion [facility] Care Team Providers Care Construction Specialist Name Role Phone AICHHOLZ, COILER OPERATOR АННА Primary Care Unavailable PAY, DR LIN Admitting Unavailable PAY, DR LIN Attending Unavailable GISELLE RESTREPO Consulting Unavailable GLORIA, DR ORDAZ Admitting Unavailable GLORIA, DR ORDAZ Attending Unavailable AICHHOLZ, COILER OPERATOR АННА Primary Care Unavailable GLORIA, DR ORDAZ Consulting Unavailable AICHHOLZ, COILER OPERATOR АННА Admitting Unavailable AICHHOLZ, COILER OPERATOR АННА Attending Unavailable AICHHOLZ, COILER OPERATOR АННА Primary Care Unavailable AICHHOLZ, COILER OPERATOR АННА Consulting Unavailable AICHHOLZ, COILER OPERATOR АННА Primary Care Unavailable DON, DR BIRD Admitting Unavailable DON, DR BIRD Attending Unavailable GISELLE RESTREPO Consulting Unavailable PHOEBE ALFARO Consulting Unavailable MD Dar Brody Primary Care Provider Orlin Castro Attending Provider [phone] Parag Bradley MD Primary Care Provider Aichholz URBAN RENEWAL MANAGER, Анна Unavailable Orlin Castro DO Attending Provider Mik Castroy Attending Unavailable Gloria, Orlin Admitting Unavailable Dar Brody Primary Care Unavailable GloriaMiky Attending Unavailable Gloria, Orlin Admitting Unavailable VIDYA JACKSON Attending Unavailable RENETTA VIDYA Referring Unavailable GLORIA, ORLIN Attending Unavailable XIMENA CARVER Attending Unavailable GLORIA ORLIN Referring Unavailable GLORIA, ORLIN Attending Unavailable GLORIA, ORLIN Attending Unavailable VIDYA JACKSON Attending Unavailable GLORIAMIKY Attending Unavailable XIMENA CARVER Attending Unavailable GLORIAMIKY Attending Unavailable AICHHOLZ, АННА Attending Unavailable ORLIN CASTRO Attending Unavailable [...] 81 mg by mouth Daily Active levonorgestrel 0.075380 mg/hr intrauterine system (2 sources) Progestin, Progestin-containi [...] capsule Indications: Heartburn during in second trimester ([facility]) Take 1 capsule (20 mg) by mouth in the morning. Take before meals. Do not crush or chew.. 30 capsule 11 05/10/2024 05/10/2025 Active MV-Min-Fe Fum-FA-DHA ( 1 PO) (20 sources) MV-Min- Fe Fum-FA-DHA ( 1 PO) Take 1 each by mouth Daily Active Progesterone (3 sources) Progesterone Start: 02-16-2024 End: 09-07-2024 Progesterone Micronized (progesterone, bulk,) powder 02/16/2024 09/07/2024 Discontinued (Therapy completed) Start: 02-16-2024 Progesterone M icronized (progesterone, bulk,) powder 02/16/2024 Active Progesterone 200 MG suppository (18 sources) [...] unspecified] 12-10-2023 Chronic Miscellaneous mental health disorders (4 sources) Primary insomnia; Translations: [Primary insomnia] 02-25-2024 Chronic Mood disorders (20 sources) Depressive disorder; Translations: [Depression] Onset: 09-01-2023 Resolved: 09-01-2023 09-01-2023 Chronic Other aftercare (1 source) 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; Translations: [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 CONTRACEPTIVES] Onset: 02-22-2022 Episodic Other aftercare (1 source) Other fdc (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 therapy; Translations: [OTH SNF CURRENT [...] low weight; and growth retardation (2 sources) Ouyzm-jdw-kpajg baby; Translations: [[place] small for gestational age, unspecified weight] 07-06-2024 [...] Test Name Value Interpretation Reference Range Facility No Panel InformationOrdered By: Radiologist Radiology on 09-09-2024 [facility] Work Phone: No Panel Informationon 09-09 Radiology Study observation (narrative) [facility] OB BPP W NON-STRESS on 09-09-2024 [place] [address] Ultrasound Report Signed Patient: ROXANNE MARSHALL MR#: [id number] : 1990 Acct:[id number] Age/Sex: 34 / F ADM Date: 09/08/24 Loc: US Attending Dr: Vidya Jackson Ordering Physician: Vidya Jackson Date of Service: 09/08/24 Procedure(s): US OB BPP w non-stress Accession Number(s): [id number] cc: Анна Ha NP; Vidya Jackson [place] [id number] Patient Name: ROXANNE MARSHALL MRN: [id number] date: 1990 Sex: F Assigned Patient Location: Current Patient Location: Accession/Order Number: [id number] Exam Date: 09/09/2024 08:04 Report Date: 09/09/2024 08:12 At the request of: VIDYA JACKSON Procedure: US OB growth CLINICAL INFORMATION: History of gestational diabetes ULTRASOUND OB GROWTH COMPARISON: 07/28/2024 There is a single live intrauterine gestation in cephalic presentation. There is cardiac and somatic activity with heart rate of 147 bpm. The amniotic fluid index measures 9.7 cm which is in low-normal range. The placenta is posterior. The following measurements were obtained: Biparietal diameter 8.7 cm 35 weeks 2 days 11% Head circumference 32.6 cm 36 weeks 6 days 13% Abdominal circumference 31.9 cm 35 weeks 6 days 60% Femur length 6.6 cm 33 weeks 6 days <3% The composite ultrasound age based on these measurements is 35 weeks 3 days +/- 2 weeks 3 days. The estimated date of delivery is 10/10/2024. Estimated date of delivery based on the comparison is 09/28/2024 and on last menstrual period 09/24/2024. The estimated weight is 5 pounds 14 ounces +/- 14 ounces (10%) US/US OB BPP w non-stress IMPRESSION: SINGLE LIVE INTRAUTERINE GESTATION WITH ULTRASOUND AGE OF 35 WEEKS 3 DAYS. INTERVAL GROWTH AT THE LOWER LIMITS OF STANDARD DEVIATION FROM THE LAST STUDY. BIOPHYSICAL PROFILE: COMPARISON: 09/01/2024 FINDINGS: TONE: 1 or more episodes of activity extension and flexion of extremity or opening and closing of the hand [Y] 2/2 GROSS BODY MOVEMENTS: 3 or more discrete body or limb movements [Y] 2/2 BREATHING MOVEMENTS: 1 or more episodes of breathing lasting at least 30 seconds [Y] 0/2 LIVE: A single deepest vertical pocket of amniotic fluid greater than 2 cm [Y] 2/2 LIVE: 9.7 cm Total score: 6/8 IMPRESSION: FAILED BIOPHYSICAL PROFILE WITH NO BREATHING Impression dictated by: Isatu Auguste M.D. 09/09/2024 8:12 AM Dictation Location: [place] [address] Electronically authenticated by: [id number] Y Date: 09/09/2024 08:12 Dictated By: Isatu Auguste M.D. Signed By: 09/09/24 0814 DD/ 1 TD/TT: Senior Cyber Intelligence Analyst: [facility] Radiology, Radiologist, - 09/09/2024 [place] [address] Ultrasound Report Signed Patient: ROXANNE MARSHALL MR#: [id number] : 1990 Acct:[id number] Age/Sex: 34 / F ADM Date: 09/08/24 Loc: US Attending Dr: Vidya Jackson Ordering Physician: Vidya Jackson Date of Service: 09/08/24 Procedure(s): US OB BPP w non-stress Accession Number(s): [id number] cc: Анна Ha NP; Vidya Jackson [address] [address] Patient Name: ROXANNE MARSHALL MRN: [facility]:[id number] date: 1990 Sex: F Assigned Patient Location: Current Patient Location: Accession/Order Number: [id number] Exam Date: 09/09/2024 08:04 Report Date: 09/09/2024 08:12 At the request of: VIDYA JACKSON Procedure: US OB growth CLINICAL INFORMATION: History of gestational diabetes ULTRASOUND OB GROWTH COMPARISON: 07/28/2024 There is a single live intrauterine gestation in cephalic presentation. There is cardiac and somatic activity with heart rate of 147 bpm. The amniotic fluid index measures 9.7 cm which is in low-normal range. The placenta is posterior. The following measurements were obtained: Biparietal diameter 8.7 cm 35 weeks 2 days 11% Head circumference 32.6 cm 36 weeks 6 days 13% Abdominal circumference 31.9 cm 35 weeks 6 days 60% Femur length 6.6 cm 33 weeks 6 days <3% The composite ultrasound age based on these measurements is 35 weeks 3 days +/- 2 weeks 3 days. The estimated date of delivery is 10/10/2024. Estimated date of delivery based on the comparison is 09/28/2024 and on last menstrual period 09/24/2024. The estimated weight is 5 pounds 14 ounces +/- 14 ounces (10%) US/US OB BPP w non-stress IMPRESSION: SINGLE LIVE INTRAUTERINE GESTATION WITH ULTRASOUND AGE OF 35 WEEKS 3 DAYS. INTERVAL GROWTH AT THE LOWER LIMITS OF STANDARD DEVIATION FROM THE LAST STUDY. BIOPHYSICAL PROFILE: COMPARISON: 09/01/2024 FINDINGS: TONE: 1 or more episodes of activity extension and flexion of extremity or opening and closing of the hand [Y] 2/2 GROSS BODY MOVEMENTS: 3 or more discrete body or limb movements [Y] 2/2 BREATHING MOVEMENTS: 1 or more episodes of breathing lasting at least 30 seconds [Y] 0/2 LIVE: A single deepest vertical pocket of amniotic fluid greater than 2 cm [Y] 2/2 LIVE: 9.7 cm Total score: 6/8 IMPRESSION: FAILED BIOPHYSICAL PROFILE WITH NO BREATHING Impression dictated by: Isatu Auguste M.D. 09/09/2024 8:12 AM Dictation Location: [place] [address] Electronically authenticated by: [id number] Y Date: 09/09/2024 08:12 Dictated By: Isatu Auguste M.D. Signed By: 09/09/24813 DD/ 1 TD/TT: Senior Cyber Intelligence Analyst: [facility] OB GROWTHon 09-09-2024 [place] [address] Ultrasound Report Signed Patient: ROXANNE MARSHALL MR#: [id number] : 1990 Acct:[id number] Age/Sex: 34 / F ADM Date: 09/08/24 Loc: US Attending Dr: Vidya Jackson Ordering Physician: Vidya Jackson Date of Service: 09/08/24 Procedure(s): US OB growth Accession Number(s): [id number] cc: Анна Ha URBAN RENEWAL MANAGER; Vidya Jackson [place] [id number] Patient Name: ROXANNE MARSHALL MRN: [facility]:[id number] date: 1990 Sex: F [facility] Current Patient Location: Accession/Order Number: [id number] Exam Date: 09/09/2024 08:04 Report Date: 09/09/2024 08:12 At the request of: VIDYA JACKSON Procedure: US OB growth CLINICAL INFORMATION: History of gestational diabetes ULTRASOUND OB GROWTH COMPARISON: 07/28/2024 There is a single live intrauterine gestation in cephalic presentation. There is cardiac and somatic activity with heart rate of 147 bpm. The amniotic fluid index measures 9.7 cm which is in low-normal range. The placenta is posterior. The following measurements were obtained: Biparietal diameter 8.7 cm 35 weeks 2 days 11% Head circumference 32.6 cm 36 weeks 6 days 13% Abdominal circumference 31.9 cm 35 weeks 6 days 60% Femur length 6.6 cm 33 weeks 6 days <3% The composite ultrasound age based on these measurements is 35 weeks 3 days +/- 2 weeks 3 days. The estimated date of delivery is 10/10/2024. Estimated date of delivery based on the comparison is 09/28/2024 and on last menstrual period 09/24/2024. The estimated weight is 5 pounds 14 ounces +/- 14 ounces (10%) US/US OB growth IMPRESSION: SINGLE LIVE INTRAUTERINE GESTATION WITH ULTRASOUND AGE OF 35 WEEKS 3 DAYS. INTERVAL GROWTH AT THE LOWER LIMITS OF STANDARD DEVIATION FROM THE LAST STUDY. BIOPHYSICAL PROFILE: COMPARISON: 09/01/2024 FINDINGS: TONE: 1 or more episodes of activity extension and flexion of extremity or opening and closing of the hand [Y] 2/2 GROSS BODY MOVEMENTS: 3 or more discrete body or limb movements [Y] 2/2 BREATHING MOVEMENTS: 1 or more episodes of breathing lasting at least 30 seconds [Y] 0/2 LIVE: A single deepest vertical pocket of amniotic fluid greater than 2 cm [Y] 2/2 LIVE: 9.7 cm Total score: 6/8 IMPRESSION: FAILED BIOPHYSICAL PROFILE WITH NO BREATHING Impression dictated by: Isatu Auguste M.D. 09/09/2024 8:12 AM Dictation Location: [place] [address] Electronically authenticated by: [id number] Y Date: 09/09/2024 08:12 Dictated By: Isatu Auguste M.D. Signed By: 09/09/2414 DD/ 1 TD/TT: Senior Cyber Intelligence Analyst: [facility] Radiology, Radiologist, MD - 09/09/2024 [place] [address] Ultrasound Report Signed Patient: ROXANNE MARSHALL MR#: [id number] : 1990 Acct:[id number] Age/Sex: 34 / F ADM Date: 09/08/24 Loc: US Attending Dr: Vidya Jackson Ordering Physician: Vidya Jackson Date of Service: 09/08/24 Procedure(s): US OB growth Accession Number(s): [id number] cc: Анна Ha NP; Vidya Jackson [place] [id number] Patient Name: ROXANNE MARSHALL MRN: [facility]:[id number] date: 1990 Sex: F [facility] Current Patient Location: Accession/Order Number: [id number] Exam Date: 09/09/2024 08:04 Report Date: 09/09/2024 08:12 At the request of: VIDYA JACKSON Procedure: US OB growth CLINICAL INFORMATION: History of gestational diabetes ULTRASOUND OB GROWTH COMPARISON: 07/28/2024 There is a single live intrauterine gestation in cephalic presentation. There is cardiac and somatic activity with heart rate of 147 bpm. The amniotic fluid index measures 9.7 cm which is in low-normal range. The placenta is posterior. The following measurements were obtained: Biparietal diameter 8.7 cm 35 weeks 2 days 11% Head circumference 32.6 cm 36 weeks 6 days 13% Abdominal circumference 31.9 cm 35 weeks 6 days 60% Femur length 6.6 cm 33 weeks 6 days <3% The composite ultrasound age based on these measurements is 35 weeks 3 days +/- 2 weeks 3 days. The estimated date of delivery is 10/10/2024. Estimated date of delivery based on the comparison is 09/28/2024 and on last menstrual period 09/24/2024. The estimated weight is 5 pounds 14 ounces +/- 14 ounces (10%) US/US OB growth IMPRESSION: SINGLE LIVE INTRAUTERINE GESTATION WITH ULTRASOUND AGE OF 35 WEEKS 3 DAYS. INTERVAL GROWTH AT THE LOWER LIMITS OF STANDARD DEVIATION FROM THE LAST STUDY. BIOPHYSICAL PROFILE: COMPARISON: 09/01/2024 FINDINGS: TONE: 1 or more episodes of activity extension and flexion of extremity or opening and closing of the hand [Y] 2/2 GROSS BODY MOVEMENTS: 3 or more discrete body or limb movements [Y] 2/2 BREATHING MOVEMENTS: 1 or more episodes of breathing lasting at least 30 seconds [Y] 0/2 LIVE: A single deepest vertical pocket of amniotic fluid greater than 2 cm [Y] 2/2 LIVE: 9.7 cm Total score: 6/8 IMPRESSION: FAILED BIOPHYSICAL PROFILE WITH NO BREATHING Impression dictated by: Isatu Auguste M.D. 09/09/2024 8:12 AM Dictation Location: [place] [address] Electronically authenticated by: [id number] Y Date: 09/09/2024 08:12 Dictated By: Isatu Auguste M.D. Signed By: 09/09/2414 DD/ 1 TD/TT: Senior Cyber Intelligence Analyst: [facility] STREP GP B CULTURE+RFLXcarlos eduardo STREP GP B CULTURE+RFLX Strep Gp B Culture+Rflx [facility] STREP GP B CULTURE+RFLX Negative [facility] STREP GP B CULTURE+RFLX Centers for Disease Control and Prevention (CDC) and [facility] STREP GP B CULTURE+RFLX [place] [employer] [facility] STREP GP B CULTURE+RFLX (ACOG) guidelines for prevention of group B [facility] GP B CULTURE+RFLX streptococcal (GBS) disease specify co-collection of [facility] STREP GP B CULTURE+RFLX a vaginal and rectal swab specimen to maximize [facility] GP B CULTURE+RFLX sensitivity of GBS detection. Per the CDC and ACOG, [facility] STRE[facility] GP B CULTURE+RFLX swabbing both the lower vagina and rectum [facility] GP B CULTURE+RFLX substantially increases the yield of detection [facility] GP B CULTURE+RFLX compared with sampling the vagina alone. [facility] GP B CULTURE+RFLX Penicillin G, ampicillin, or cefazolin are indicated [facility] GP B CULTURE+RFLX for intrapartum prophylaxis of GBS [facility] GP B CULTURE+RFLX colonization. Reflex susceptibility testing should be [facility] GP B CULTURE+RFLX performed prior to use of clindamycin only on GBS [facility] GP B CULTURE+RFLX isolates from penicillin-allergic women who are [facility] GP B CULTURE+RFLX considered a high risk for anaphylaxis. Treatment with [facility] STRE[facility] GP B CULTURE+RFLX vancomycin without additional testing is warranted if [facility] STRE[facility] GP B CULTURE+RFLX resistance to clindamycin is noted. [facility] STREP GP B CULTURE+RFLX Performed at: [facility] STREP GP B CULTURE+RFLX [address] [place], [place] [id number] [facility] STREP GP B CULTURE+RFLX Director Biology: Tony Bynum PhD, Phone: [phone] [facility] Urinalysis macro (dipstick) panel (U)on 09-02-2024 Bilirubin, UA Negative Negative - 4(70) +++ mg/dL [facility] Blood, UA Negative Negative - 50 Richy/mcL [facility] Clarity, UA Clear [facility] Color, UA Yellow [facility] Glucose, UA Negative Negative - 2000(110) ++++ mg/dL [facility] Interpretation and review of laboratory results Abnormal [facility] Ketones, UA Negative Negative - 160(16) ++++ mg/dL [facility] Leukocytes, UA Negative Negative - 500+++ Tano/mcL [facility] Nitrite, UA Negative Negative - Positive [facility] pH, UA 6 5 - 9 [facility] Protein, UA Positive Negative - 2000(20) ++++ mg/dL [facility] Comment on above: 30 Spec Grav, UA 1.02 1 - 1.03 [facility] Urobilinogen, UA 1.0 0.2 - 12 mg/dL [facility] US OB BPP W NON-STRESS on 09-01-[address] [address] Ultrasound Report Signed Patient: ROXANNE MARSHALL MR#: [id number] : 1990 Acct:[id number] Age/Sex: 34 / F ADM Date: 09/01/24 Loc: US Attending Dr: Vidya Jackson Ordering Physician: Vidya Jackson Date of Service: 09/01/24 Procedure(s): US OB BPP w non-stress Accession Number(s): [id number] cc: Анна Ha URBAN RENEWAL MANAGER; Vidya Jackson [address] [address] Patient Name: ORXANNE MARSHALL MRN: [facility]:[id number] date: 1990 Sex: F Assigned Patient Location: Current Patient Location: Accession/Order Number: [id number] Exam Date: 09/01/2024 15:10 Report Date: 09/01/2024 [...] Perez M.D. 09/01/2024 3:11 PM [facility] Electron[facility] authenticated by: [id number] Y Date: 09/01/2024 15:11 Dictated By: Emilio Perez D.O. Signed By: 09/01/241512 DD/ 10 TD/TT: Senior Cyber Intelligence Analyst: [facility] Radiology, Radiologist, - 09/01/2024 [place] [address] Ultrasound Report Signed Patient: ROXANNE MARSHALL MR#: [id number] : 1990 Acct:[id number] Age/Sex: 34 / F ADM Date: 09/01/24 Loc: US Attending Dr: Vidya Jackson Ordering Physician: Vidya Jackson Date of Service: 09/01/24 Procedure(s): US OB BPP w non-stress Accession Number(s): [id number] cc: Анна Ha URBAN RENEWAL MANAGER; Vidya Jackson [facility] [place] [id number] Patient Name: ROXANNE MARSHALL MRN: [facility]:[id number] date: 1990 Sex: F Assigned Patient Location: US Current Patient Location: Accession/Order Number: [id number] Exam Date: 09/01/2024 15:10 Report Date: 09/01/2024 [...] 09/01/2024 3:11 PM Dictation Location: [place] [address] Electronically authenticated by: [id number] Y Date: 09/01/2024 15:11 Dictated By: Emilio Perez D.O. Signed By: 09/01/241512 DD/ 10 TD/TT: Senior Cyber Intelligence Analyst: [facility] Radiology Study observation (narrative) [facility] US OB BPP W NON-STRESS Ordered By: Radiologist Radiology on 09-01-2024 [facility] Work Phone: US OB BPP W NON-STRESS on 08-25-2024 [place] [address] Ultrasound Report Signed Patient: ROXANNE MARSHALL MR#: [id number] : 1990 Acct:[id number] Age/Sex: 33 / F ADM Date: 08/25/24 [facility]: Vidya Jackson Ordering Physician: Vidya Jackson Date of Service: 08/25/24 Procedure(s): US OB BPP w non-stress Accession Number(s): [id number] cc: Анна Ha NP; Vidya Jackson [place] [address] Patient Name: ROXANNE MARSHALL MRN: [id number] date: 1990 Sex: F Assigned [facility] Accession/Order Number: [id number] Exam Date: 08/25/2024 11:31 Report Date: 08/25/2024 [...] Auguste M.D. 08/25/2024 11:33 AM Dictation Location: [place] [address] Electronically authenticated by: [id number] Y Date: 08/25/2024 11:33 Dictated By: Isatu Auguste M.D. Signed By: 08/25/24 1135 DD/ 1133 TD/TT: Senior Cyber Intelligence Analyst: [facility] Radiology, Radiologist, MD - 08/25/2024 [place] [address] Ultrasound Report Signed Patient: ROXANNE MARSHALL MR#: [id number] : 1990 Acct:[id number] Age/Sex: 33 / F ADM Date: 08/25/24 [facility]: Vidya Jackson Ordering Physician: Vidya Jackson Date of Service: 08/25/24 Procedure(s): US OB BPP w non-stress Accession Number(s): [id number] cc: Анна Ha URBAN RENEWAL MANAGER; Vidya Jackson [facility] [place] [id number] Patient Name: ROXANNE MARSHALL MRN: [facility]:[id number] date: 1990 Sex: F Assigned [facility] Accession/Order Number: [id number] Exam Date: 08/25/2024 11:31 Report Date: 08/25/2024 [...] Auguste M.D. 08/25/2024 11:33 AM Dictation Location: [place] [address] Electronically authenticated by: [id number] Y Date: 08/25/2024 11:33 Dictated By: Isatu Auguste M.D. Signed By: 08/25/24 1135 DD/ 1133 TD/TT: Senior Cyber Intelligence Analyst: [facility] Radiology Study observation (narrative) [facility] US OB BPP W NON-STRESS Ordered By: Radiologist Radiology on 08-25-2024 [facility] Work Phone: US OB BPP W NON-STRESS on 08-18-2024 [place] [address] Ultrasound Report Signed Patient: ROXANNE MARSHALL MR#: [id number] : 1990 Acct:[id number] Age/Sex: 33 / F ADM Date: 08/18/24 Loc: US Attending Dr: Vidya Jackson Ordering Physician: Vidya Jackson Date of Service: 08/18/24 Procedure(s): US OB BPP w non-stress Accession Number(s): [id number] cc: Анна Ha NP; Vidya Jackson [place] [address] Patient Name: ROXANNE MARSHALL MRN: [facility]:[id number] date: 1990 Sex: F Assigned [facility] Current Patient Location: Accession/Order Number: [id number] Exam Date: 08/18/2024 11:47 Report Date: 08/18/2024 11:48 At the request of: VIDYA JACKSON Procedure: US OB BPP w non-stress BIOPHYSICAL PROFILE: CLINICAL INFORMATION: History of gestational diabetes Z86.32 COMPARISON: 08/13/2024 There is a single live intrauterine gestation in cephalic presentation. The reported gestational age is 34 weeks 5 days. The heart rate [id number] beats per minute. FINDINGS: TONE: 1 or [...] Auguste M.D. 08/18/2024 11:48 AM Dictation Location: [place] [address] Electronically authenticated by: [id number] Y Date: 08/18/2024 11:48 Dictated By: Isatu Auguste M.D. Signed By: 08/18/24 1151 DD/ 1148 TD/TT: Senior Cyber Intelligence Analyst: [facility] Radiology, Radiologist, MD - 08/18/2024 [place] [address] Ultrasound Report Signed Patient: ROXANNE MARSHALL MR#: [id number] : 1990 Acct:[id number] Age/Sex: 33 / F ADM Date: 08/18/24 Loc: US Attending Dr: Vidya Jackson Ordering Physician: Vidya Jackson Date of Service: 08/18/24 Procedure(s): US OB BPP w non-stress Accession Number(s): [id number] cc: Анна Ha NP; Vidya Jackson [place] [id number] Patient Name: ROXANNE MARSHALL MRN: [facility]:[id number] date: 1990 Sex: F Assigned [facility] Current Patient Location: Accession/Order Number: [id number] Exam Date: 08/18/2024 11:47 Report Date: 08/18/2024 11:48 At the request of: VIDYA JACKSON Procedure: US OB BPP w non-stress BIOPHYSICAL PROFILE: CLINICAL INFORMATION: History of gestational diabetes Z86.32 COMPARISON: 08/13/2024 There is a single live intrauterine gestation in cephalic presentation. The reported gestational age is 34 weeks 5 days. The heart rate [id number] beats per minute. FINDINGS: TONE: 1 or [...] Auguste M.D. 08/18/2024 11:48 AM Dictation Location: [place] [address] Electronically authenticated by: [id number] Y Date: 08/18/2024 11:48 Dictated By: Isatu Auguste M.D. Signed By: 08/18/24 1151 DD/ 1148 TD/TT: Senior Cyber Intelligence Analyst: [facility] Radiology Study observation (narrative) [facility] US OB BPP W NON-STRESS Ordered By: Radiologist Radiology on 08-18-2024 [facility] Work Phone: US OB BPP W NON-STRESS on 08-13-2024 [place] [address] Ultrasound Report Signed Patient: ROXANNE MARSHALL MR#: [id number] : 1990 Acct:[id number] Age/Sex: 33 / F ADM Date: 08/13/24 Loc: US Attending Dr: Orlin Castro D.O. Ordering Physician: Orlin Castro D.O. Date of Service: 08/13/24 Procedure(s): US OB BPP w non-stress Accession Number(s): [id number] cc: Анна Ha URBAN RENEWAL MANAGER; Orlin Castro D.O. [place] [id number] Patient Name: ROXANNE MARSHALL MRN: [id number] date: 1990 Sex: F [facility] Current Patient Location: Accession/Order Number: [id number] Exam Date: 08/13/2024 17:25 Report Date: 08/13/2024 [...] Camacho M.D. 08/13/2024 5:27 PM Dictation Location: [place] [address] Electronically authenticated by: [id number] Y Date: 08/13/2024 17:27 Dictated By: Nilo Camacho M.D. Signed By: 08/13/24 1729 DD/ 26 TD/TT: Senior Cyber Intelligence Analyst: [facility] Radiology, Radiologist, MD - 08/13/2024 [place] [address] Ultrasound Report Signed Patient: ROXANNE MARSHALL MR#: [id number] : 1990 Acct:[id number] Age/Sex: 33 / F ADM Date: 08/13/24 Loc: US Attending Dr: Orlin Castro D.O. Ordering Physician: Orlin Castro D.O. Date of Service: 08/13/24 Procedure(s): US OB BPP w non-stress Accession Number(s): [id number] cc: Анна Ha URBAN RENEWAL MANAGER; Orlin Castro D.O. The [place] [id number] Patient Name: ROXANNE MARSHALL MRN: [facility]:[id number] date: 1990 Sex: F [facility] Current Patient Location: Accession/Order Number: [id number] Exam Date: 08/13/2024 17:25 Report Date: 08/13/2024 [...] Camacho M.D. 08/13/2024 5:27 PM Dictation Location: RADIO-PC-17 Electronically authenticated by: [id number] Y Date: 08/13/2024 17:27 Dictated By: Nilo Camacho M.D. Signed By: 08/13/241728 DD/ 26 TD/TT: Senior Cyber Intelligence Analyst: [facility] Radiology Study observation (narrative) [facility] US OB BPP W NON-STRESS Ordered By: Radiologist Radiology on 08-13-2024 [facility] Work Phone: US OB BPP W NON-STRESS on 08-11-2024 [place] [address] Ultrasound Report Signed Patient: ROXANNE MARSHALL MR#: [id number] : 1990 Acct:[id number] Age/Sex: 33 / F ADM Date: 08/11/24 [facility]: Vidya Jackson Ordering Physician: Vidya Jackson Date of Service: 08/11/24 Procedure(s): US OB BPP w non-stress Accession Number(s): [id number] cc: Анна Ha URBAN RENEWAL MANAGER; Vidya Jackson [place] [id number] Patient Name: ROXANNE MARSHALL MRN: [id number] date: 1990 Sex: F [facility] Accession/Order Number: [id number] Exam Date: 08/11/2024 12:18 Report Date: 08/11/2024 [...] is in low normal range. Total score: 8/ US/US OB BPP w non-stress IMPRESSION: NORMAL BIOPHYSICAL PROFILE Impression dictated by: Isatu Auguste M.D. 08/11/2024 12:20 PM Dictation Location: [place] [address] Electronically authenticated by: [id number] Y Date: 08/11/2024 12:20 Dictated By: Isatu Auguste M.D. Signed By: 08/11/24 1222 DD/ 1220 TD/TT: Senior Cyber Intelligence Analyst: [facility] Radiology, Radiologist, - 08/11/2024 [place] [address] Ultrasound Report Signed Patient: ROXANNE MARSHALL MR#: [id number] : 1990 Acct:[id number] Age/Sex: 33 / F ADM Date: 08/11/24 [facility]: Vidya Jackson Ordering Physician: Vidya Jackson Date of Service: 08/11/24 Procedure(s): US OB BPP w non-stress Accession Number(s): [id number] cc: Анна Ha NP; Vidya Jackson [place] [id number] Patient Name: ROXANNE MARSHALL MRN: [facility]:[id number] date: 1990 Sex: F Assigned [facility] Accession/Order Number: [id number] Exam Date: 08/11/2024 12:18 Report Date: 08/11/2024 [...] is in low normal range. Total score: 8/ US/US OB BPP w non-stress IMPRESSION: NORMAL BIOPHYSICAL PROFILE Impression dictated by: Isatu Auguste M.D. 08/11/2024 12:20 PM Dictation Location: [place] [address] Electronically authenticated by: [id number] Y Date: 08/11/2024 12:20 Dictated By: Isatu Auguste M.D. Signed By: 08/11/24 1222 DD/ 1220 TD/TT: Senior Cyber Intelligence Analyst: [facility] Radiology Study observation (narrative) [facility] US OB BPP W NON-STRESS Ordered By: Radiologist Radiology on 08-11-2024 [facility] Work Phone: US OB BPP W NON-STRESS on 08-04-2024 [place] [address] Ultrasound Report Signed Patient: ROXANNE MARSHALL MR#: [id number] : 1990 Acct:[id number] Age/Sex: 33 / F ADM Date: 08/04/24 [facility]: Vidya Jackson Ordering Physician: Vidya Jackson Date of Service: 08/04/24 Procedure(s): US OB BPP w non-stress Accession Number(s): [id number] cc: Анна Ha NP; Vidya Jackson [place] [id number] Patient Name: ROXANNE MARSHALL MRN: [id number] date: 1990 Sex: F [facility] Accession/Order Number: [id number] Exam Date: 08/04/2024 11:42 Report Date: 08/04/2024 [...] Auguste M.D. 08/04/2024 11:43 AM Dictation Location: [place] [address] Electronically authenticated by: [id number] Y Date: 08/04/2024 11:43 Dictated By: Isatu Auguste M.D. Signed By: 08/04/24 1146 DD/ 1143 TD/TT: Senior Cyber Intelligence Analyst: [facility] Radiology, Radiologist, MD - 08/04/2024 [place] [address] Ultrasound Report Signed Patient: ROXANNE MARSHALL MR#: [id number] : 1990 Acct:[id number] Age/Sex: 33 / F ADM Date: 08/04/24 [facility]: Vidya Jackson Ordering Physician: Vidya Jackson Date of Service: 08/04/24 Procedure(s): US OB BPP w non-stress Accession Number(s): [id number] cc: Анна Ha URBAN RENEWAL MANAGER; Vidya Jackson [place] [address] Patient Name: ROXANNE MARSHALL MRN: [id number] date: 1990 Sex: F [facility] Accession/Order Number: [id number] Exam Date: 08/04/2024 11:42 Report Date: 08/04/2024 [...] Auguste M.D. 08/04/2024 11:43 AM Dictation Location: [place] [address] Electronically authenticated by: [id number] Y Date: 08/04/2024 11:43 Dictated By: Isatu Auguste M.D. Signed By: 08/04/24 1146 DD/ 1143 TD/TT: Senior Cyber Intelligence Analyst: [facility] Radiology Study observation (narrative) [facility] OB BPP W NON-STRESS Ordered By: Radiologist Radiology on 08-04-2024 [facility] Work Phone: Urinalysis macro (dipstick) panel (U)on 08-04-2024 Bilirubin, UA Negative Negative - 4(70) +++ mg/dL [facility] Blood, UA Positive Negative - 50 Richy/mcL [facility] Comment on above: trace-intact Clarity, UA Clear [facility] Color, UA Yellow [facility] Glucose, UA Negative Negative - 1999(110) ++++ mg/dL [facility] Interpretation and review of laboratory results Abnormal [facility] Ketones, UA Negative Negative - 160(16) ++++ mg/dL [facility] Leukocytes, UA Negative Negative - 500+++ Tano/mcL [facility] Nitrite, UA Negative Negative - Positive [facility] pH, UA 7 5 - 9 [facility] Protein, UA Negative Negative - 1999(20) ++++ mg/dL [facility] Spec Grav, UA 1.01 1 - 1.03 [facility] Urobilinogen, UA 0.2 0.2 - 12 mg/dL [facility] US OB GROWTHon 07-28-2024 [place] [address] Ultrasound Report Signed Patient: ROXANNE MARSHALL MR#: [id number] : 1990 Acct:[id number] Age/Sex: 33 / F ADM Date: 07/28/24 Loc: US Attending Dr: Orlin Castro D.O. Ordering Physician: Orlin Castro D.O. Date of Service: 07/28/24 Procedure(s): US OB growth Accession Number(s): [id number] cc: Анна Ha URBAN RENEWAL MANAGER; Orlin Castro D.O. [place] [id number] Patient Name: ROXANNE MARSHALL MRN: [id number] date: 1990 Sex: F Assigned Patient Location: Current Patient Location: US Accession/Order Number: [id number] Exam Date: 07/28/2024 10:44 Report Date: 07/28/2024 [...] Auguste M.D. 07/28/2024 10:48 AM Dictation Location: [place] [address] Electronically authenticated by: [id number] Y Date: 07/28/2024 10:48 Dictated By: Isatu Auguste M.D. Signed By: 07/28/24 1051 DD/ 1048 TD/TT: Senior Cyber Intelligence Analyst: [facility] Radiology, Radiologist, MD - 07/28/2024 [place] [address] Ultrasound Report Signed Patient: ROXANNE MARSHALL MR#: [id number] : 1990 Acct:[id number] Age/Sex: 33 / F ADM Date: 07/28/24 Loc: US Attending Dr: Orlin Castro D.O. Ordering Physician: Orlin Castro D.O. Date of Service: 07/28/24 Procedure(s): US OB growth Accession Number(s): [id number] cc: Анна Ha URBAN RENEWAL MANAGER; Orlin Castro D.O. The [place] [id number] Patient Name: ROXANNE MARSHALL MRN: [facility]:[id number] date: 1990 Sex: F Assigned Patient Location: US Current Patient Location: US Accession/Order Number: [id number] Exam Date: 07/28/2024 10:44 Report Date: 07/28/2024 [...] Auguste M.D. 07/28/2024 10:48 AM Dictation Location: [place] [address] Electronically authenticated by: [id number] Y Date: 07/28/2024 10:48 Dictated By: Isatu Auguste M.D. Signed By: 07/28/24 1051 DD/ 1048 TD/TT: Senior Cyber Intelligence Analyst: [facility] Radiology Study observation (narrative) [facility] US OB GROWTHOrdered By: Tatiana ologaneesh Radiology on 07-28-2024 [facility] Work Phone: GLUCOSE TOLERANCE 3 HOURon 0 07-23-2024 GLUCOSE TOLERANCE 3 HOUR High mg/dL [facility] Comment on above: GLU FAST 97H (<95) C ol: 07/23/24 0909 GLU 1HR 151 (<180) Col: 07/23/24 1013 GLU 2HR 151 (<155) Col: 07/23/24 1113 GLU 3HR 123 (<140) Col: 07/23/24 1213 Interpretation and review of laboratory results Abnormal [facility] US OB FOLLOW UP TRANSABDOMIN [...] II, MD, PHD at 07-Jul-2024 10:00:26 AM [facility] Normal Not Available Comment on above: Order Comment: US OB SCAN FOR GROWTH Estimated Date of Delivery: 09/24/24 Gestational Age as of 06/16/2024: 25w5d Urinalysis macro (dipstick) panel (U)on 07-06-2024 Bilirubin, UA Negative Negative - 4(70) +++ mg/dL [facility] Blood, UA Negative Negative - 50 Richy/mcL [facility] Healthcare Clarity, UA Clear [facility] Color, UA Yellow [facility] Glucose, UA Negative Negative - 1999(110) ++++ mg/dL [facility] Interpretation and review of laboratory results Normal [facility] Healthcare Ketones, UA Negative Negative - 160(16) ++++ mg/dL [facility] Leukocytes, UA Negative Negative - 500+++ Tano/mcL [facility] Nitrite, UA Negative Negative - Positive [facility] pH, UA 7 5 - 9 [facility] Protein, UA Negative Negative - 2000(20) ++++ mg/dL [facility] Spec Grav, UA 1.015 1 - 1.03 [facility] Urobilinogen, UA 0.2 0.2 - 12 mg/dL [facility] ALL CBC WITH AUTO DIFFon BASOPHILS ABSOLUTE AUTO 0 [facility] Basophils/100 WBC (Bld) 0.3 % 0.2 - 2.0 % [facility] Eosinophils/100 WBC (Bld) 0.3 % Low 0.9 - 7.0 % [facility] Erythrocyte distribution width (RBC) [Ratio] 12.9 % 11.0 - 15.0 % [facility] Hematocrit (Bld) [Volume fraction] 35.5 % Low 36.0 - 48.0 % [facility] Hemoglobin (Bld) [Mass/Vol] 11.6 g/dL Low 12.0 - 16.0 g/dL [facility] IMMATURE GRANULOCYTES ABS AUTO 0.03 [facility] Immature granulocytes/100 WBC (Bld) 0.4 % 0.0 - 0.5 % [facility] Interpretation and review of laboratory results Abnormal [facility] LYMPHOCYTES ABSOLUTE AUTO 1.7 [facility] Lymphocytes/100 WBC (Bld) 22.3 % 20.5 - 60.0 % [facility] MCH (RBC) [Entitic mass] 30.7 pg 26.7 - 34.0 pg [facility] MCHC (RBC) [Mass/Vol] 32.7 g/dL 29.9 - 35.2 g/dL [facility] MCV (RBC) [Entitic vol] 93.9 fL 81.0 - 99.0 fL [facility] MONOCYTES ABSOLUTE AUTO 0.4 [facility] Monocytes/100 WBC (Bld) 5.5 % 1.7 - 12.0 % [facility] NEUTROPHILS ABSOLUTE AUTO 5.3 [facility] Neutrophils/100 WBC (Bld) 71.2 % 43.0 - 75.0 % [facility] Platelet mean volume (Bld) [Entitic vol] 9.6 fL 9.5 - 13.5 fL [facility] TBH EO # 0 [facility]H PLT [facility] RBC 3.78 Low [facility] TB WBC 7.4 [facility] RECURRENT VAGINITIS (HTRX)on 06-17-2024 ATOPOBIUM VAGINAE 0 [facility] ATOPOBIUM VAGINAE Not detected [facility] BVAB 2,3 (BACTERIAL VAGINOSIS ASSOCIATED BACTERIA 2, 3); MOBILUNCUS SPP 0 [facility] BVAB 2,3 (BACTERIAL VAGINOSIS ASSOCIATED BACTERIA 2, 3); MOBILUNCUS SPP Not detected [facility] RANJANA ALBICANS, PARAPSILOSIS, TROPICALIS 0 [facility] RANJANA ALBICANS, PARAPSILOSIS, TROPICALIS Not detected [facility] RANJANA GLABRATA 0 [facility] RANJANA GLABRATA Not detected [facility] RANJANA KRUSEI 0 [facility] RANJANA KRUSEI Not detected [facility] CHLAMYDIA TRACHOMATIS 0 [facility] CHLAMYDIA TRACHOMATIS Not detected N [facility] GARDNERELLA VAGINALIS 0 [facility] GARDNERELLA VAGINALIS Not detected N [facility] MEGASPHAERA (TYPES 1, 2) 0 [facility] MEGASPHAERA (TYPES 1, 2) Not detected [facility] MYCOPLASMA GENITALIUM 0 [facility] MYCOPLASMA GENITALIUM Not detected N S [facility] NEISSERIA GONORRHOEAE 0 [facility] NEISSERIA GONORRHOEAE Not detected N S [facility] TRICHOMONAS VAGINALIS 0 [facility] TRICHOMONAS VAGINALIS Not detected [facility] Urinalysis macro (dipstick) panel (U)on 06-16-2024 Bilirubin, UA Negative Negative - 4(70) +++ mg/dL [facility] Blood, UA Negative Negative - 50 Richy/mcL [facility] Clarity, UA Clear [facility] Color, UA Yellow [facility] Glucose, UA Negative Negative - 2000(110) ++++ mg/dL [facility] Interpretation and review of laboratory results Normal [facility] Ketones, UA Negative Negative - 160(16) ++++ mg/dL [facility] Leukocytes, UA Negative Negative - 500+++ Tano/mcL [facility] Nitrite, UA Negative Negative - Positive [facility] pH, UA 6 5 - 9 [facility] Protein, UA Negative Negative - 2000(20) ++++ mg/dL [facility] Spec Grav, UA 1.01 1 - 1.03 [facility] Urobilinogen, UA 0.2 0.2 - 12 mg/dL [facility] US OB 14+ WEEKS ANATOMY SCAN on [...] II, MD, PHD at 11-May-2024 12:36:27 AM [facility] Normal Not Available Comment on above: Order Comment: US OB ANATOMY SINGLE W US OB CERVICAL LENGTH Estimated Date of Delivery: 09/24/24 Gestational Age as of 04/07/2024: 15w5d GLUCOSE 1 HOURon 04-10-2024 Glucose [Mass/Vol] 124 mg/dL NINF - 13 0 mg/dL [facility] Urinalysis macro (dipstick) panel (U)on 04-07-2024 Bilirubin, UA Negative Negative - 4(70) +++ mg/dL [facility] Blood, UA Positive Negative - 50 Richy/mcL [facility] Comment on above: trace Clarity, UA Clear [facility] Color, UA Yellow [facility] Glucose, UA Negative Negative - 1999(110) ++++ mg/dL [facility] Interpretation and review of laboratory results Abnormal [facility] Ketones, UA Positive Negative - 160(16) ++++ mg/dL [facility] Comment on above: 15 Leukocytes, UA Negative Negative - 500+++ Tano/mcL [facility] Nitrite, UA Negative Negative - Positive [facility] pH, UA 7 5 - 9 [facility] Protein, UA Negative Negative - 1999(20) ++++ mg/dL [facility] Spec Grav, UA 1.02 1 - 1.03 [facility] Urobilinogen, UA 1.0 0.2 - 12 mg/dL [facility] Urinalysis macro (dipstick) panel (U)on 03-10-2024 Bilirubin, UA Negative Negative - 4(70) +++ mg/dL [facility] Blood, UA Positive Negative - 50 Richy/mcL [facility] Comment on above: trace-intact Clarity, UA Clear [facility] Color, UA Yellow [facility] Glucose, UA Negative Negative - 1999(110) ++++ mg/dL [facility] Interpretation and review of laboratory results Abnormal [facility] Ketones, UA Negative Negative - 160(16) ++++ mg/dL [facility] Leukocytes, UA Negative Negative - 500+++ Tano/mcL [facility] Nitrite, UA Negative Negative - Positive [facility] pH, UA 6.5 5 - 9 [facility] Protein, UA Negative Negative - 1999(20) ++++ mg/dL [facility] Spec Grav, UA 1.01 1 - 1.03 [facility] Urobilinogen, UA 0.2 0.2 - 12 mg/dL [facility] BOX TESTon 02-27-2024 BOX TEST SENT OUT [facility] BOX1 [facility] BOX2 02/27/24 [facility] BOX [facility] Urine Cultureon 02-27-2024 Bacteria identified Cx Nom (U) No Growth 2 Days PERFORMED BY: [facility] [address] [place] [address] PATHOLOGIST [employer] PHYSICAL [employer]UC[employer] TEACHER SHEREE MCCARTHY M.D. Normal [facility] Comment on above: Performed By: #### C UU #### [facility] [address] [place] [id number] [facility] HCG ( test) Ql (U)o n 02-11-2024 Interpretation and review of laboratory results Abnormal [facility] Preg Test, Ur Positive Negative [facility] Urinalysis macro (dipstick) panel (U)on 02-11-2024 Bilirubin, UA Positive Negative - 4(70) +++ mg/dL [facility] Comment on above: small Blood, UA Positive Negative - 50 Richy/mcL [facility] Comment on above: trace-lysed Clarity, UA Clear [facility] Color, UA Yellow [facility] Glucose, UA Negative Negative - 2000(110) ++++ mg/dL [facility] Interpretation and review of laboratory results Abnormal [facility] Ketones, UA Positive Negative - 160(16) ++++ mg/dL [facility] Comment on above: trace Leukocytes, UA Trace Negative - 500+++ Tano/mcL [facility] Nitrite, UA Negative Negative - Positive [facility] pH, UA 6 5 - 9 [facility] Protein, UA Positive Negative - 2000(20) ++++ mg/dL [facility] Comment on above: 100 Spec Grav, UA 1.03 1 - 1.03 [facility] Urobilinogen, UA 0.2 0.2 - 12 mg/dL [facility] PREG QUANT HCGon 024 HCG QUANTITATIVE 60822 mIU/mL [facility] Comment on above: 5-50 0.2-1 WEEK 50-500 1-2 WEEKS 100-5,000 2-3 WEEKS 500-10,000 3-4 WEEKS 1,000-50,000 4-5 WEEKS 10,000-100,000 5-6 WEEKS 15,000-200,000 6-8 WEEKS 10,000-100,000 2-3 MONTHS [facility] PREG QUANT HCGon 024 HCG QUANTITATIVE 92422 mIU/mL [facility] Comment on above: 5-50 0.2-1 WEEK 50-500 1-2 WEEKS 100-5,000 2-3 WEEKS 500-10,000 3-4 WEEKS 1,000-50,000 4-5 WEEKS 10,000-100,000 5-6 WEEKS 15,000-200,000 6-8 WEEKS 10,000-100,000 2-3 MONTHS [facility] PREG QUANT HCGon 024 HCG QUANTITATIVE 64852 mIU/mL [facility] Comment on above: 5-50 0.2-1 WEEK 50-500 1-2 WEEKS 100-5,000 2-3 WEEKS 500-10,000 3-4 WEEKS 1,000-50,000 4-5 WEEKS 10,000-100,000 5-6 WEEKS 15,000-200,000 6-8 WEEKS 10,000-100,000 2-3 MONTHS [facility] PREG QUANT HCGon 024 HCG QUANTITATIVE 14265 mIU/mL [facility] Comment on above: 5-50 0.2-1 WEEK 50-500 1-2 WEEKS 100-5,000 2-3 WEEKS 500-10,000 3-4 WEEKS 1,000-50,000 4-5 WEEKS 10,000-100,000 5-6 WEEKS 15,000-200,000 6-8 WEEKS 10,000-100,000 2-3 MONTHS [facility] PREG QUANT HCGon 024 HCG QUANTITATIVE 8911 mIU/mL [facility] Comment on above: 5-50 0.2-1 WEEK 50-500 1-2 WEEKS 100-5,000 2-3 WEEKS 500-10,000 3-4 WEEKS 1,000-50,000 4-5 WEEKS 10,000-100,000 5-6 WEEKS 15,000-200,000 6-8 WEEKS 10,000-100,000 2-3 MONTHS [facility] PREG QUANT HCGon 024 HCG QUANTITATIVE 4641 mIU/mL [facility] Comment on above: 5-50 0.2-1 WEEK 50-500 1-2 WEEKS 100-5,000 2-3 WEEKS 500-10,000 3-4 WEEKS 1,000-50,000 4-5 WEEKS 10,000-100,000 5-6 WEEKS 15,000-200,000 6-8 WEEKS 10,000-100,000 2-3 MONTHS [facility] PREG QUANT HCGon 01-20- 024 HCG QUANTITATIVE 2241 mIU/mL [facility] Comment on above: 5-50 0.2-1 WEEK 50-500 1-2 WEEKS 100-5,000 2-3 WEEKS 500-10,000 3-4 WEEKS 1,000-50,000 4-5 WEEKS 10,000-100,000 5-6 WEEKS 15,000-200,000 6-8 WEEKS 10,000-100,000 2-3 MONTHS [facility] PREG QUANT HCGon 01-18- 024 HCG QUANTITATIVE 884 mIU/mL [facility] Comment on above: 5-50 0.2-1 WEEK 50-500 1-2 WEEKS 100-5,000 2-3 WEEKS 500-10,000 3-4 WEEKS 1,000-50,000 4-5 WEEKS 10,000-100,000 5-6 WEEKS 15,000-200,000 6-8 WEEKS 10,000-100,000 2-3 MONTHS [facility] IGP,APTIMA HPV,AGE GDLNon -2023 AGE GDLN ACOG TESTING Note . [facility] Comment on above: TESTS RESULT FLAG UN ITS REF RANGE LAB Clinician Provided Cytology Information Source.............Cervix;Endocervix No. of containers..01 ThinPrep Vial Age Algo ACOG Sylvia... FLAG LEGEND: L-Low Normal,H-High Normal,LL-Alert Low,HH-Alert High <-Panic Low,>-Panic High,A-Abnormal,AA-Critical Abnormal Performed at: 01 =[address] [address] Amber Tilley MD, HPV APTIMA Negative Negative [facility] Comment on above: This nucleic acid am plification test detects fourteen high- risk HPV types (16,18,31,33,35,39,45,51,52,56,58,59,66,68) without differentiation. Performed at: =[address] [id number] Director Biology: Amber Tilley MD, Phone: [phone] Performed at: [address] [id number] Director Biology: Amber Tilley MD, Phone: [phone] IGP, APTIMA HPV, RFX 16/18,45 Note . [facility] Comment on above: TESTS RESULT FLAG UN ITS REF RANGE LAB DIAGNOSIS: 02 NEGATIVE FOR INTRAEPITHELIAL LESION OR MALIGNANCY. REACTIVE CELLULAR CHANGES AND/OR REPAIR ARE PRESENT. Specimen adequacy: 02 Satisfactory for evaluation. Endocervical and/or squamous metaplastic cells (endocervical component) are present. Performed by: 02 Peggy Gandhi, Structural Steel Erection Supervisor (ASCP) Electronically si... 02 Divya Hoffman MD, [...] High,A-Abnormal,AA-Critical Abnormal Performed at: 02 [facility] [address] [address] Amber Tilley MD, BRUSH-SPATULA CERVIX ENDOCERVIX [facility] Cytology Cervical or vaginal smear or scraping studyon 12-10-2023 [facility] HCG ( test) Ql (U)o n 12-10-2023 Interpretation and review of laboratory results Normal [facility] Preg Test, Ur Negative [facility] 06-30-2023 L Specimen: [id number] Received: 07/01/23 Status: WEN [place] Num: [id number] Spec Type: Surgical Subm Dr: Orlin Castro Tissues: A Products of Conception - Spontaneous or Missed (POC) Procedures: HE/3, Gross/Micro L4 Age/ Patient Sex Location Account Attending Physician Roxanne Marshall 32/F [facility] [id number] Orlin Castro SPEC NUM: [id number] RECD: 07/01/23 STATUS: WEN [place] NUM: [id number] [place]: 06/30/[address]: Orlin Castro ENTERED: 07/01/[address] [facility] [address]: [place],Lab SPEC TYPE: Surgical DEPT: [...] spongy harman tissue consistent with villous tissue. Database Analyst sections are submitted in A1?A3 to include the villous tissue in A1. Clinical history: Missed TW -------- Specimen: [id number] Received: 07/01/23 Status: WEN [place] Num: [id number] Spec Type: Surgical Subm Dr: Orlin Castro Tissues: A Products of Conception - Spontaneous or Missed (POC) Procedures: HE/3, Gross/Micro L4 -------- Patient: Roxanne Marshall [id number] (Continued) -------- Specimen: [id number] Received: 07/01/23 (Continued) Signed (signature on file) Shen Virgen MD 07/02/23 1859 -------- Specimen: [id number] Received: 07/01/23 Status: WEN [place] Num: [id number] Spec Type: Surgical Subm Dr: Orlin Castro Tissues: A Products of Conception - Spontaneous or Missed (POC) Procedures: HE/3, Gross/Micro L4 -------- Patient: Roxanne Marshall [id number] (Continued) -------- Specimen: [id number] Received: 07/01/23 (Continued) CPT Codes 70380 -------- -------- Specimen: [id number] Received: 07/01/23 Status: WEN [place] Num: [id number] Spec Type: Surgical Subm Dr: Orlin Castro Tissues: A Products of Conception - Spontaneous or Missed (POC) Procedures: HE/Ruthy, Gross/Maksim L4 -------- Patient: Roxanne Marshall [id number] (Continued) -------- Signed (signature on file) Shen Virgen MD 07/02/23 4665 Normal [facility] Covid-19 PCR (CVDTB)on 01-25 SARS-CoV-2 (COVID-19) RNA JUAN+probe Ql (Unsp spec) Not detected Normal NOT DETECTED [facility] Comment on above: Result Comment: This test is not yet approved or cleared by the [place] FDA. When there are no FDA-approved or cleared tests available, and other criteria are met, FDA can make tests available under an emergency access mechanism called an Emergency Use Authorization (EUA). The EUA for this test is supported by the Station Manager of Health and Human Service's (HHS's) [...] SARS-CoV-2. Performed By: #### C VDTBH #### [facility] [address] [place] [address] Dr. Luis Virgen INFLUENZA A AND B [facility] 02-20 INFLUBNEG SEE BELOW Normal [facility] Comment on above: Result Comment: Nega tive for Flu B protein antigen. Infection due to Flu B cannot be ruled out. Flu B antigen in the sample may be below the detection limit of the test. Performed By: #### I NFLUAB #### [facility] [address] [place] [address] Dr. Luis Virgen INFLUENZA A AG Positive Abnormal NEGATIVE SEE COMMENT [facility] Comment on above: Performed By: #### I NFLUAB #### [facility] [address] [place] [address] Dr. Luis Virgen INFLUENZA B AG Negative Normal NEGATIVE SEE COMMENT [facility] Comment on above: Performed By: #### I NFLUAB #### [facility] [address] [place] [address] Dr. Luis Virgen XR CHEST 1 Von 02-20-2022 XR CHEST 1 V EXAM: CHEST 1 VIEW HISTORY: COUGH TECHNIQUE: Chest, one view. COMPARISON: None. FINDINGS: Lungs are clear. No focal consolidation, pleural effusion, or pneumothorax. Pulmonary vasculature is within normal limits. Cardiomediastinal silhouette is normal. IMPRESSION: 1. No acute cardiopulmonary disease. Electronically authenticated by: PHOEBE ALFARO Date: 2022-02-20 17:46 Normal [facility] PAP ACOG PANEL 2: 30 to 65on 11-13-2021 . . Normal [facility] Comment on above: Result Comment: Perf ormed at: WB Performed By: #### [id number] #### [facility] [address] [address] [address] Luis Virgen Age Gdln ACOG Testing 30-65 Normal [facility] Comment on above: Performed By: #### [id number] #### [facility] [address] [address] [address] Luis Virgen DIAGNOSIS: Comment Normal [facility] Comment on above: Result Comment: NEGA TIVE FOR INTRAEPITHELIAL LESION OR MALIGNANCY. Performed at: WB Performed By: #### [id number] #### [facility] [address] [address] [address] Luis Virgen HPV Aptima Negative Normal Negative [facility] Comment on above: Result Comment: This nucleic acid amplification test detects fourteen high-risk HPV types (16,18,31,33,35,39,45,51,52,56,58,59,66,68) without differentiation. Performed at: =G Performed By: #### [id number] #### [facility] [address] [address] [address] Luis Virgen Methodology: Comment Normal [facility] Comment on above: Result Comment: This liquid based ThinPrep(R) pap test was screened with the use of an image guided system. Performed at: WB Performed By: #### [id number] #### [facility] [address] [place] [address] Dr. Luis Virgen Note: Comment Normal [facility] Comment on above: Result Comment: The Pap smear is a screening test designed to aid in the detection of premalignant and malignant conditions of the uterine cervix. It is not a diagnostic procedure and should not be used as the sole means of detecting cervical cancer. Both false-positive and false-negative reports do occur. . Performed at: WB Performed By: #### [id number] #### [facility] [address] [place] [address] Dr. Luis Virgen Performed by: Comment Normal [facility] Comment on above: Result Comment: Maureen Del Cid, Structural Steel Erection Supervisor (ASCP) Performed at: WB Performed By: #### [id number] #### [facility] [address] [place] [address] Dr. Luis Virgen Specimen adequacy: Comment Normal [facility] Comment on above: Result Comment: Sati sfactory for evaluation. Endocervical and/or squamous metaplastic cells (endocervical component) are present. Performed at: WB Performed By: #### [id number] #### [facility] [address] [place] [address] Dr. Luis Virgen URon 08-20-2021 , QUAL Negative Normal NEGATIVE [facility] Comment on above: Performed By: #### P REGU #### [facility] [address] [place] [address] Dr. Luis Virgen CBC AUTO DIFFon 08-06-2021 BASO # 0.0 103/ul Normal 0.0-0.1 [facility] Comment on above: Performed By: #### C BC #### [facility] [address] [place] [address] Dr. Luis Virgen Basophils/100 WBC (Bld) 0.3 % Normal 0.2-2.0 [facility] Comment on above: Performed By: #### C BC #### [facility] [address] [place] [address] Dr. Luis Virgen EO # 0.0 103/ul Normal 0.0-0.7 [facility] Comment on above: Performed By: #### C BC #### [facility] [address] [place] [address] Dr. Luis Virgen Eosinophils/100 WBC (Bld) 0.3 % Critically low 0.9-7.0 [facility] Comment on above: Performed By: #### C BC #### [facility] [address] [place] [address] Dr. Luis Virgen Erythrocyte distribution width (RBC) [Ratio] 12.6 % Normal 11.0-15.0 [facility] Comment on above: Performed By: #### C BC #### [facility] [address] [place] [address] Dr. Luis Virgen Hematocrit (Bld) [Volume fraction] 41.5 % Normal 36.0-48.0 [facility] Comment on above: Performed By: #### C BC #### [facility] [address] [place] [address] Dr. Luis Virgen Hemoglobin (Bld) [Mass/Vol] 13.5 g/dL Normal 12.0-16.0 [facility] Comment on above: Performed By: #### C BC #### [facility] [address] [place] [address] Dr. Luis Virgen IG # 0.03 10e3/ul Normal 0.00-0.03 [facility] Comment on above: Performed By: #### C BC #### [facility] [address] [place] [address] Dr. Luis Virgen IG % 0.4 % Normal 0.0-0.5 [facility] Comment on above: Performed By: #### C BC #### [facility] [address] [place] [address] Dr. Luis Virgen LYMPH # 2.4 103/ul Normal 1.2-3.8 [facility] Comment on above: Performed By: #### C BC #### [facility] [address] [place] [address] Dr. Luis Virgen Lymphocytes/100 WBC (Bld) 31.8 % Normal 20.5-60.0 [facility] Comment on above: Performed By: #### C BC #### [facility] [address] [place] [address] Dr. Luis Virgen MANUAL DIFF REQ NO [facility] Comment on above: Performed By: #### C BC #### [facility] [address] [place], [place] [id number] Dr. Luis Virgen MCH (RBC) [Entitic mass] 30.5 pg Normal 26.7-34.0 [facility] Comment on above: Performed By: #### C BC #### [facility] [address] [place] [address] Dr. Luis Virgen MCHC (RBC) [Mass/Vol] 32.5 g/dL Normal 29.9-35.2 [facility] Comment on above: Performed By: #### C BC #### [facility] [address] [place] [address] Dr. Luis Virgen MCV (RBC) [Entitic vol] 93.9 fL Normal 81.0-99.0 [facility] Comment on above: Performed By: #### C BC #### [facility] [address] [place] [address] Dr. Luis Virgen MONO # 0.6 103/ul Normal 0.3-0.8 [facility] Comment on above: Performed By: #### C BC #### [facility] [address] [place] [address] Dr. Luis Virgen Monocytes/100 WBC (Bld) 7.4 % Normal 1.7-12.0 [facility] Comment on above: Performed By: #### C BC #### [facility] [address] [place] [address] Dr. Luis Virgen NEUT # 4.5 103/ul Normal 1.4-6.5 [facility] Comment on above: Performed By: #### C BC #### [facility] [address] [place] [address] Dr. Luis Virgen Neutrophils/100 WBC (Bld) 59.8 % Normal 43.0-75.0 [facility] Comment on above: Performed By: #### C BC #### [facility] [address] [place] [address] Dr. Luis Virgen Platelet mean volume (Bld) [Entitic vol] 10.0 fL Normal 9.5-13.5 [facility] Comment on above: Performed By: #### C BC #### [facility] [address] [place] [address] Dr. Luis Virgen PLT 337 103/ul Normal 150-450 [facility] Comment on above: Performed By: #### C BC #### [facility] [address] [address] [address] Luis Virgen RBC 4.42 106/ul Normal 4.20-5.40 [facility] Comment on above: Performed By: #### C BC #### [facility] [address] [address] [address] Luis Virgen WBC 7.6 103/ul Normal 4.0-11.0 [facility] Comment on above: Performed By: #### C BC #### [facility] [address] [place] [address] Dr. Luis Virgen FREE T4on 08-06-2021 Free T4 [Mass/Vol] 0.91 ng/dL Normal 0.76-1.46 [facility] Comment on above: Performed By: #### F T4 #### [facility] [address] [place] [address] Dr. Luis Virgen LIPID PROFILEon 08-06-2021 CHOL-HDL RATIO NORM SEE BELOW Normal [facility] [place] Comment on above: Result Comment: 3.3 - 4.4 LOW RISK 4.4 - 7.1 AVERAGE RISK 7.1 - 11.0 MODERATE RISK >11.0 HIGH RISK Performed By: #### C MP, TSH, LIPID #### [facility] [address] [place] [address] Dr. Luis Virgen Cholesterol [Mass/Vol] 154 mg/dL Normal <=[address] [facility] Comment on above: Performed By: #### C MP, TSH, LIPID #### [facility] [address] [place] [address] Dr. Luis Virgen Cholesterol in HDL [Mass/Vol] 35 mg/dL Critically low 40-60 [facility] Comment on above: Performed By: #### C MP, TSH, LIPID #### [facility] [address] [place] [address] Dr. Luis Virgen Cholesterol in LDL [Mass/Vol] 80.8 mg/dL Normal [facility] Comment on above: Performed By: #### C MP, TSH, LIPID #### [facility] [address] [address] [address] Luis Virgen Cholesterol.total/Chol esterol in HDL [Mass ratio] 4.4 {ratio} Normal [facility] Comment on above: Performed By: #### C MP, TSH, LIPID #### [facility] [address] [address] [address] Luis Virgen HDL NORMAL > or = 60 mg/dl - LO W CARDIOVASCULAR RISK <40 mg/dl - HIGH CARDIOVASCULAR RISK Normal [facility] Comment on above: Performed By: #### C MP, TSH, LIPID #### [facility] [address] [place] [address] Dr. Luis Virgen LDL CALC NORMAL SEE BELOW Normal [facility] Comment on above: Result Comment: <100 mg/dl OPTIMAL 100 - 129 mg/dl NEAR OR ABOVE OPTIMAL 130 - 159 mg/dl BORDERLINE HIGH 160 - 189 mg/dl HIGH >190 mg/dl VERY HIGH Performed By: #### C MP, TSH, LIPID #### [facility] [address] [address] [address] Luis Virgen Triglyceride [Mass/Vol] 191 mg/dL Critically high <=150 [facility] Comment on above: Performed By: #### C MP, TSH, LIPID #### [facility] [address] [place] [address] Dr. Luis Virgen VLDL CALC 38.2 mg/dL Normal [facility] Comment on above: Performed By: #### C MP, TSH, LIPID #### [facility] [address] [address] [address] Luis Viregn PROF 14(COMP METB)on 022 Albumin [Mass/Vol] 4.1 g/dL Normal 3.4-5.0 [facility] Comment on above: Performed By: #### C MP, TSH, LIPID #### [facility] [address] [address] [address] Luis Virgen Albumin/Globulin [Mass ratio] 1.2 {ratio} Normal [facility] Comment on above: Performed By: #### C MP, TSH, LIPID #### [facility] [address] [address] [address] Luis Virgen ALP [Catalytic activity/Vol] 73 U/L Normal 46-116 [facility] Comment on above: Performed By: #### C MP, TSH, LIPID #### [facility] [address] [address] [address] Luis Virgen ALT [Catalytic activity/Vol] 24 U/L Normal 14-59 [facility] Comment on above: Performed By: #### C MP, TSH, LIPID #### [facility] [address] [address] [address] Luis Virgen Anion gap [Moles/Vol] 13.2 mmol/L Normal [facility] Comment on above: Performed By: #### C MP, TSH, LIPID #### [facility] [address] [address] [address] Luis Virgen AST [Catalytic activity/Vol] 11 U/L Critically low 15-37 [facility] Comment on above: Performed By: #### C MP, TSH, LIPID #### [facility] [address] [address] [address] Luis Virgen Bilirubin [Mass/Vol] 0.8 mg/dL Normal 0.2-1.0 [facility] Comment on above: Performed By: #### C MP, TSH, LIPID #### [facility] [address] [address] [address] Luis Virgen Calcium [Mass/Vol] 8.9 mg/dL Normal 8.5-10.1 [facility] Comment on above: Performed By: #### C MP, TSH, LIPID #### [facility] [address] [address] [address] Luis Virgen Chloride [Moles/Vol] 103 mmol/L Normal 98-107 [facility] Comment on above: Performed By: #### C MP, TSH, LIPID #### [facility] [address] [address] [address] Luis Virgen CO2 [Moles/Vol] 27.5 mmol/L Normal 21.0-32.0 [facility] Comment on above: Performed By: #### C MP, TSH, LIPID #### [facility] [address] [place] [address] Dr. Luis Virgen Creatinine [Mass/Vol] 0.71 mg/dL Normal 0.55-1.02 [facility] Comment on above: Performed By: #### C MP, TSH, LIPID #### [facility] [address] [address] [address] Luis Virgen EGFR-AF CHILEAN >60 Normal >=60 [facility] Comment on above: Performed By: #### C MP, TSH, LIPID #### [facility] [address] [place] [address] Dr. Luis Virgen EGFR-NON AF CHILEAN >60 Normal >=60 [facility] Comment on above: Performed By: #### C MP, TSH, LIPID #### [facility] [address] [place] [address] Dr. Luis Virgen Globulin (S) [Mass/Vol] 3.5 g/dL Normal [facility] Comment on above: Performed By: #### C MP, TSH, LIPID #### [facility] [address] [place] [address] Dr. Luis Virgen Glucose [Mass/Vol] 101 mg/dL Normal 74-106 [facility] Comment on above: Performed By: #### C MP, TSH, LIPID #### [facility] [address] [place] [address] Dr. Luis Vigren Potassium [Moles/Vol] 4.7 mmol/L Normal 3.5-5.1 [facility] Comment on above: Performed By: #### C MP, TSH, LIPID #### [facility] [address] [place] [address] Dr. Luis Virgen Protein [Mass/Vol] 7.6 g/dL Normal 6.4-8.2 [facility] Comment on above: Performed By: #### C MP, TSH, LIPID #### [facility] [address] [place] [address] Dr. Luis Virgen Sodium [Moles/Vol] 139 mmol/L Normal 136-145 [facility] Comment on above: Performed By: #### C MP, TSH, LIPID #### [facility] [address] [address] [address] Luis Virgen Urea nitrogen [Mass/Vol] 9.0 mg/dL Normal 7.0-18.0 [facility] Comment on above: Performed By: #### C MP, TSH, LIPID #### [facility] [address] [address] [address] Luis Virgen Urea nitrogen/Creatinine [Mass ratio] 12.7 mg/mg Normal [facility] Comment on above: Performed By: #### C MP, TSH, LIPID #### [facility] [address] [place] [address] Dr. Luis Virgen TSHon 08-06-2021 TSH 0.924 uIU/mL Normal 0.358-3.740 [facility] Comment on above: Performed By: #### C MP, TSH, LIPID #### [facility] [address] [place] [address] Dr. Luis Virgen TSH RANGE SEE BELOW Normal [facility] Comment on above: Result Comment: <0.3 4 UIU/ml HYPERTHYROID 0.34-5.60 UIU/ml EUTHYROID >5.60 UIU/ml HYPOTHYROID Performed By: #### C MP, TSH, LIPID #### [facility] [address] [place] [address] Dr. Luis Virgen Vital Signs Date Time Vital Sign Value Performing Clinician Quinn elizondo 09-07-2024 13:02-0400 Body mass index (BMI) [Ratio] 33.78 kg/m2 Анна Ha URBAN RENEWAL MANAGER Work Phone: [facility] 09-07-2024 13:02-0400 Body temperature 98.01 [degF] Анна Ha URBAN RENEWAL MANAGER Work Phone: [facility] 09-07-2024 13:02-0400 Body weight 81.1 kg Анна Ha URBAN RENEWAL MANAGER Work Phone: [facility] 09-07-2024 13:02-0400 Diastolic blood pressure 78 mm[Hg] Анна Lopessindi URBAN RENEWAL MANAGER Work Phone: [facility] 09-07-2024 13:02-0400 Heart rate 94 /min Анна Lopessindi URBAN RENEWAL MANAGER Work Phone: [facility] 09-07-2024 13:02-0400 Respiratory rate 18 /min Анна Lopessindi URBAN RENEWAL MANAGER Work Phone: [facility] 09-07-2024 13:02-0400 SaO2% (BldA) [Mass fraction] 98 % Анна Lopessindi URBAN RENEWAL MANAGER Work Phone: [facility] 09-07-2024 13:02-0400 Systolic blood pressure 110 mm[Hg] Анна Lopessindi URBAN RENEWAL MANAGER Work Phone: [facility] 09-02-2024 10:47-0400 Body mass index (BMI) [Ratio] 33.6 kg/m2 Orlni Gloria DO Work Phone: [facility] 09-02-2024 10:47-0400 Body weight 80.65 kg Orlin Gloria DO Work Phone: [facility] 09-02-2024 10:47-0400 Diastolic blood pressure 70 mm[Hg] Orlin Gloria DO Work Phone: [facility] 09-02-2024 10:47-0400 Systolic blood pressure 120 mm[Hg] Orlin Gloria DO Work Phone: [facility] 08-18-2024 09:37-0400 Body mass index (BMI) [Ratio] 33.07 kg/m2 Ximena Carver URBAN RENEWAL MANAGER Work Phone: [facility] 08-18-2024 09:37-0400 Body weight 79.38 kg Ximena Carver URBAN RENEWAL MANAGER Work Phone: [facility] 08-18-2024 09:37-0400 Diastolic blood pressure 82 mm[Hg] Ximena Carver URBAN RENEWAL MANAGER Work Phone: [facility] 08-18-2024 09:37-0400 Systolic blood pressure 116 mm[Hg] Ximena Mehul RENEE Work Phone: [facility] 08-04-2024 14:31-0400 Body mass index (BMI) [Ratio] 32.95 kg/m2 Orlin Gloria DO Work Phone: [facility] 08-04-2024 14:31-0400 Body weight 79.11 kg Orlin Gloria DO Work Phone: [facility] 08-04-2024 14:31-0400 Diastolic blood pressure 76 mm[Hg] Orlin Gloria DO Work Phone: [facility] 08-04-2024 14:31-0400 Systolic blood pressure 120 mm[Hg] Orlin Gloria DO Work Phone: [facility] 07-21-2024 14:30-0400 Body mass index (BMI) [Ratio] 33.14 kg/m2 Vidya DESAI Work Phone: [facility] 07-21-2024 14:30-0400 Body weight 79.56 kg Vidya DESAI Work Phone: [facility] 07-21-2024 14:30-0400 Diastolic blood pressure 74 mm[Hg] Vidya DESAI Work Phone: [facility] 07-21-2024 14:30-0400 Systolic blood pressure 110 mm[Hg] Vidya DESAI Work Phone: [facility] 07-06-2024 14:09-0400 Body mass index (BMI) [Ratio] 32.69 kg/m2 Orlin Gloria DO Work Phone: [facility] 07-06-2024 14:09-0400 Body weight 78.47 kg Orlin Gloria DO Work Phone: [facility] 07-06-2024 14:09-0400 Diastolic blood pressure 72 mm[Hg] Orlin Gloria DO Work Phone: [facility] 07-06-2024 14:09-0400 Systolic blood pressure 118 mm[Hg] Orlin Gloria DO Work Phone: [facility] 06-16-2024 14:05-0400 Body mass index (BMI) [Ratio] 32.12 kg/m2 Ximena Carver URBAN RENEWAL MANAGER Work Phone: [facility] 06-16-2024 14:05-0400 Body weight 77.11 kg Ximena Carver URBAN RENEWAL MANAGER Work Phone: [facility] 06-16-2024 14:05-0400 Diastolic blood pressure 70 mm[Hg] Ximena Carver URBAN RENEWAL MANAGER Work Phone: [facility] 06-16-2024 14:05-0400 Systolic blood pressure 114 mm[Hg] Ximena Carver URBAN RENEWAL MANAGER Work Phone: [facility] 04-07-2024 15:02-0500 Body mass index (BMI) [Ratio] 30.8 kg/m2 Vidya Renetta PA Work Phone: [facility] 04-07-2024 15:02-0500 Body weight 73.94 kg Vidya Renetta PA Work Phone: [facility] 04-07-2024 15:02-0500 Diastolic blood pressure 62 mm[Hg] Vidya Renetta PA Work Phone: [facility] 04-07-2024 15:02-0500 Systolic blood pressure 116 mm[Hg] Vidya Lyme PA Work Phone: [facility] 03-10-2024 14:45-0500 Body mass index (BMI) [Ratio] 30.63 kg/m2 Orlin Gloria DO Work Phone: [facility] 03-10-2024 14:45-0500 Body weight 73.54 kg Orlin Gloria DO Work Phone: [facility] 03-10-2024 14:45-0500 Diastolic blood pressure 66 mm[Hg] Orlin Gloria DO Work Phone: [facility] 03-10-2024 14:45-0500 Systolic blood pressure 110 mm[Hg] Orlin Gloria DO Work Phone: [facility] 02-11-2024 10:34-0500 Body mass index (BMI) [Ratio] 30.69 kg/m2 Nom Nurse [facility] 02-11-2024 10:34-0500 Body weight 73.66 kg Nom Nurse [facility] 02-11-2024 10:34-0500 Diastolic blood pressure 77 mm[Hg] [facility] Nurse [facility] 02-11-2024 10:34-0500 Systolic blood pressure 110 mm[Hg] [facility] Nurse [facility] 12-10-2023 13:12-0400 Body mass index (BMI) [Ratio] 30.76 kg/m2 Orlin Gloria DO Work Phone: [facility] 12-10-2023 13:12-0400 Body weight 73.85 kg Orlin Gloria DO Work Phone: [facility] 12-10-2023 13:12-0400 Diastolic blood pressure 78 mm[Hg] Orlin Gloria DO Work Phone: [facility] 12-10-2023 13:12-0400 Systolic blood pressure 116 mm[Hg] Orlin Gloria DO Work Phone: [facility] Healthcare Encounters Encounter Date Encounter Type Care Provider Facility Start: 09-09-2024 End: 09-09-2024 Clinisync Result Encounter Generic External Data Provider [facility] Unsolicited Start: 09-09-2024 End: 09-09-2024 Clinisync Result Encounter Generic External Data Provider [facility] External Department Unsolicited Start: 09-09-2024 End: 09-09-2024 ambulatory ORLIN GLORIA Not Available Start: 09-07-2024 End: 09-07-2024 Bamboo flowsheet Анна Ha [employer]RB[employer] R[employer]EWAL MANAGER Work Phone: [facility] Start: 09-07-2024 End: 09-07-2024 Bamboo flowsheet Анна Ha [employer]RBAN RENEWAL MANAGER Work Phone: [facility] Start: 09-07-2024 End: 09-07-2024 Patient encounter status Анна Ha [employer]RBAN RENEWAL MANAGER Work Phone: [facility] Work Phone: Start: 09-07-2024 End: 09-07-2024 Periodic preventive med est patient 18-39 yrs Анна Ha [employer]RB[employer] RENEWAL MANAGER Work Phone: [facility] Comment on above: Encounter for wellne ss examination in adult (Primary Dx); Primary insomnia Start: 09-07-2024 End: 09-07-2024 ambulatory АННА HA Not Available Start: 09-02-2024 End: 09-02-2024 Bamboo flowsheet Orlin Gloria DO Work Phone: [facility] Start: 09-02-2024 End: 09-07-2024 Bamboo flowsheet Orlin Gloria DO Work Phone: [facility] Start: 09-02-2024 End: 09-07-2024 Clinisync Result Encounter Generic External Data Provider [facility] External Department Unsolicited Start: 09-02-2024 End: 09-02-2024 Office outpatient visit 15 minutes Orlin Gloria DO Work Phone: [facility] Comment on above: 36 weeks gestation o f ([facility]); Third trimester ([facility]); History of gestational diabetes; Antepartum multigravida of advanced maternal age ([facility]) Start: 09-02-2024 End: 09-02-2024 ambulatory ORLIN GLORIA Not Available Start: 09-01-2024 End: 09-01-2024 Clinisync Result Encounter [...] Unsolicited Start: 08-23-2024 End: 08-23-2024 Refill Анна Lopessindi [employer]RBAN RENEWAL MANAGER Work Phone: [facility] Comment on above: Primary insomnia Start: 08-18-2024 End: 08-18-2024 Bamboo flowsheet Ximena Mehul [employer]RBAN RENEWAL MANAGER Work Phone: [facility] Start: 08-18-2024 End: 08-18-2024 Bamboo flowsheet Ximena Mehul [employer]RBAN RENEWAL MANAGER Work Phone: [facility] Start: 08-18-2024 End: 08-18-2024 Clinisync Result Encounter Generic External Data Provider [facility] External Department Unsolicited Start: 08-18-2024 End: 08-18-2024 Office outpatient visit 15 minutes Ximena Carver [employer]RB[employer] RENEWAL MANAGER Work Phone: [facility] Comment on above: Third trimester preg eileen ([facility]); 34 weeks gestation of ([facility]) Start: 08-18-2024 End: 08-18-2024 ambulatory XIMENA MEHUL Not Available Start: 08-13-2024 End: 08-13-2024 [...] Bamboo flowsheet Ximena Carver NP Work Phone: [facility] Start: 06-16-2024 End: 06-17-2024 External Result Encounter Orlin Mcclellando DO Work Phone: [facility] Unsolicited Start: 06-16-2024 End: 06-16-2024 Office outpatient visit 15 minutes Ximena Carver [employer]RB[employer] RENEWAL MANAGER Work Phone: [facility] Comment on above: Second trimester pre gnancy; 25 weeks gestation of ; Screen for STD (sexually transmitted disease); Diabetes mellitus screening; Antepartum multigravida of advanced maternal age Start: 06-16-2024 End: 06-16-2024 ambulatory XIMENA CARVER Not Available Start: 05-10-2024 End: 05-10-2024 ambulatory ORLIN CASTRO Not Available Start: 05-10-2024 End: 05-10-2024 ambulatory VIDYA JACKSON Not Available Start: 04-10-2024 End: 04-10-2024 Clinisync Result Encounter Generic External Data Provider [facility] External Department Unsolicited Start: 04-10-2024 End: 04-10-2024 Clinisync Result Encounter Generic External Data Provider [facility] External Department Unsolicited Start: 04-07-2024 End: 04-07-2024 Office outpatient visit 15 minutes Vidya DESAI Work Phone: [facility] Comment on above: Need for [...] OB Start: 03-10-2024 End: 03-10-2024 ambulatory ORLIN CASTRO Not Available Start: 03-10-2024 End: 03-10-2024 flow sheet Orlin Gloria DO Work Phone: [facility] Comment on above: 11 weeks gestation o f ; First trimester Start: 03-10-2024 End: 03-10-2024 Bamboo flowsheet Orlin Gloria DO Work Phone: [facility] Start: 03-10-2024 End: 03-10-2024 Bamboo flowsheet Orlin Gloria DO Work Phone: [facility] Start: 02-27-2024 End: 02-27-2024 [facility] Start: 02-27-2024 End: 02-27-2024 Departed Referred Orlin Gloria DO Work Phone: [facility] Start: 02-27-2024 End: 02-27-2024 Clinisync Result Encounter Generic External Data Provider [facility] External Department Unsolicited Start: 02-27-2024 End: 02-27-2024 Clinisync Result Encounter Generic External Data Provider [facility] External Department Unsolicited Start: 02-25-2024 End: 02-26-2024 Refill Анна Ha [employer]RB[employer] RENEWAL MANAGER Work Phone: [facility] Comment on [...] Start: 12-10-2023 End: 12-18-2023 Bamboo flowsheet Orlin Mcclellando DO Work Phone: [facility] Start: [...] Mcclellando DO Work Phone: [facility] Start: 06-30-2023 End: 06-30-2023 ambulatory MD Dar Brody Work Phone: [facility] Work Phone: Start: 06-30-2023 End: 06-30-2023 Departed Referred MD Dar Brody Work Phone: [facility] Start: 02-20-2022 End: 02-20-2022 ambulatory MARLYN HA Facility:[facility] Start: 11-06-2021 End: 11-06-[address] ORLIN CASTRO Facility:[facility] Start: 08-20-2021 End: 08-20-2021 ambulatory MARLYN HA Facility:[facility] Start: 08-06-2021 End: 08-07-2021 ambulatory MARLYN HA Facility:[facility] Procedures Date Procedure Procedure Detail Performing Clinician Start: 09-09-2024 US OB BPP W NON-STRESS Generic External Data Provider Start: 09-09-2024 US OB GROWTH Generic Ex ternal Data Provider Start: 09-02-2024 Urnls dip stick/tabl et rgnt non-auto w/o micrscp Orlin Gloria DO Work Phone: Start: 09-02-2024 STREP GP B CULTURE+RFLX Generic External Data Provider Start: 09-01-2024 OB BPP W NON-STRESS Vidya DESAI Work Phone: Start: 08-25-2024 OB BPP W NON-STRESS Generic External Data Provider Start: 08-18-2024 OB BPP W NON-STRESS Generic External Data [...] ALL CBC WITH AUTO DIFF Ximena Carver [employer]RB[employer] RENEWAL MANAGER Work Phone: Start: 06-16-2024 RECURRENT VAGINITIS (HTRX) Orlin Gloria DO Work Phone: Start: 06-16-2024 Urnls dip stick/tabl et rgnt non-auto w/o micrscp Ximena Carver [employer]RBAN RENEWAL MANAGER Work Phone: Start: 04-10-2024 GLUCOSE 1 HOUR [...] 01-19-2024 [facility] PREG QUANT HCG Core y Glorai DO Work Phone: Start: 12-10-2023 Urine test visual color cmprsn meths Orlin Gloria DO Work Phone: Start: 12-10-2023 IGP,APTIMA HPV,AGE GDLN Orlin Gloria DO Work Phone: Start: 12-10-2023 Microscopic observat ion [Identifier] in Cervix by Cyto stain Ximena Carver [employer]RB[employer] RENEWAL MANAGER Work Phone: Start: 12-10-2023 Cytp cerv/vag auto t hin layer prep mnl screen Orlin Gloria DO Work Phone: Start: 10-02-2023 Microscopic observat ion [Identifier] in Cervix by Cyto stain Orlin Castro DO Work Phone: Plan of Treatment Date Care Activity Detail Author Start: 12-09-2028 Screening for malign ant neoplasm of cervix [facility] Healthcare Start: 11-25-2025 Screening for malign ant neoplasm of cervix [facility] Start: 12-15-2024 End: 12-15-2024 Patient encounter procedure 12/15/2024 3:00 PM EDT Office Visit [facility] [address] [place] [phone] Orlin Castro, DO [address] [place], [place] [id number] [facility] Start: 09-09-2024 End: 09-09-2024 Patient encounter procedure 09/09/2024 11:50 AM EDT Routine [facility] [address] [place] [phone] Orlin Castro, DO [address] [place] [address] [facility] Start: 09-07-2024 End: 09-07-2024 Patient encounter procedure 09/07/2024 1:00 PM EDT Office Visit [facility] [address] [place] [phone] Анна Ha, VÍCTOR [address] [place] [address] [facility] Start: 09-02-2024 End: 09-02-2025 CULTURE, GROUP B STREP WITH SUSCEPTIBLITY CULTURE, GROUP B STREP WITH SUSCEPTIBLITY Lab Routine Third trimester ([facility]) Expected: 09/02/2024, Expires: 09/02/2025 [facility] Work Phone: Comment on above: Expected: 09/02/2024 , Expires: 09/02/2025 Start: 09-02-2024 End: 09-02-2024 Patient encounter procedure [facility] Comment on above: Arrived Start: 08-18-2024 End: 08-18-2024 Patient encounter procedure [facility] Comment on above: Arrived Start: 08-04-2024 End: 08-04-2024 Patient encounter procedure 08/04/2024 2:20 PM EDT Routine [facility] [address] [place] [phone] Orlin Castro DO [address] [place] [address] [facility] Start: 07-21-2024 End: 07-21-2024 Patient encounter procedure 07/21/2024 2:20 PM EDT Routine [facility] [address] [place] [address] Vidya Jackson, GISELLE [address] [place], [place] [id number] [facility] Start: 07-21-2024 End: 01-21-2025 US biophysical profile w non stress test US biophysical profile w non stress test Imaging Routine History of gestational diabetes Expected: 07/21/2024 (Approximate), Expires: 01/21/2025 [facility] Work Phone: Comment on above: Expected: 07/21/2024 (Approximate), Expires: 01/21/2025 Start: 07-21-2024 End: 11-21-2024 US for US OB follow up transabdominal approach Imaging Routine History of gestational diabetes Expected: 07/21/2024, Expires: 11/21/2024 [facility] Comment on above: Expected: 07/21/2024 , Expires: 11/21/2024 Start: 07-06-2024 End: 07-06-2025 Measurement of glucose 1 hour after glucose challenge for glucose tolerance test Glucose tolerance, 1 hour Lab Routine Diabetes mellitus screening Expected: 07/06/2024 (Approximate), Expires: 07/06/2025 [facility] Work Phone: Comment on above: Expected: 07/06/2024 (Approximate), Expires: 07/06/2025 Start: 07-06-2024 End: 11-06-2024 US for US OB follow up transabdominal approach Imaging Routine SGA (small for gestational age) Expected: 07/06/2024, Expires: 11/06/2024 [facility] Comment on above: Expected: 07/06/2024 , Expires: 11/06/2024 Start: 07-06-2024 End: 07-06-2024 Patient encounter procedure 07/06/2024 1:50 PM EDT Routine [facility] [address] [place] [address] Orlin Castro DO [address] [place], [place] [id number] [facility] Start: 07-06-2024 End: 07-06-2024 Professional / ancillary services management 07/06/2024 1:30 PM EDT Ancillary Procedure [facility] [address] [place] [address] [facility] Start: 06-16-2024 End: 06-16-2025 CBC panel - Blood by Automated count CBC Lab Routine Diabetes mellitus screening Expected: 06/16/2024 (Approximate), Expires: 06/16/2025 [facility] Comment on above: Expected: 06/16/2024 (Approximate), Expires: 06/16/2025 Start: 06-16-2024 End: 06-16-2025 Measurement of glucose 1 hour after glucose challenge for glucose tolerance test Glucose tolerance, 1 hour Lab Routine Diabetes mellitus screening Expected: 06/16/2024 (Approximate), Expires: 06/16/2025 [facility] Comment on above: Expected: 06/16/2024 (Approximate), Expires: 06/16/2025 Start: 06-16-2024 End: 10-16-2024 US for US OB follow up transabdominal approach Imaging Routine Antepartum multigravida of advanced maternal age Expected: 06/16/2024, Expires: 10/16/2024 [facility] Work Phone: Comment on above: Expected: 06/16/2024 , Expires: 10/16/2024 Start: 06-16-2024 End: 06-16-2024 Patient encounter procedure 06/16/2024 1:20 PM EDT Routine [facility] [address] [place] [phone] Ximena Carver, URB[employer] RENEWAL MANAGER [address] [place] [phone] Arrived [facility] Comment on above: Arrived Start: 05-10-2024 End: 05-10-2024 Patient encounter procedure 05/10/2024 2:40 PM EDT Routine [facility] [address] [place] [phone] Orlin Castro, [address] [place], [place] [phone] [facility] Start: 05-10-2024 End: 05-10-2024 Professional / ancillary services management 05/10/2024 1:30 PM EDT Ancillary Procedure [facility] [address] [place] [phone] [facility] Start: 04-07-2024 End: 04-07-2024 Patient encounter procedure [facility] Comment on above: Arrived Start: 04-07-2024 End: 05-05-2024 Alpha fetoprotein, maternal Alpha fetoprotein, maternal Lab Routine Need for maternal serum alpha-protein (MSAFP) screening Expected: 04/07/2024 (Approximate), Expires: 05/05/2024 [facility] Healthcare Comment on above: Expected: 04/07/2024 (Approximate), Expires: 05/05/2024 Start: 04-07-2024 End: 04-07-2025 Measurement of glucose 1 hour after glucose challenge for glucose tolerance test Glucose tolerance, 1 hour Lab Routine Diabetes mellitus screening Expected: 04/07/2024 (Approximate), Expires: 04/07/2025 [facility] Work Phone: Comment on above: Expected: 04/07/2024 (Approximate), Expires: 04/07/2025 Start: 04-07-2024 End: 04-07-2025 US for US OB 14+ weeks anatomy scan Imaging Routine Screening, , for anatomic survey Expected: 04/07/2024, Expires: 04/07/2025 [facility] Comment on above: Expected: 04/07/2024 , Expires: 04/07/2025 Start: 03-10-2024 End: 03-10-2024 Patient encounter procedure 03/10/2024 2:20 PM EST Routine [facility] [address] [place] [phone] Orlin Castro DO [address] [place] [address] [facility] Start: 03-02-2024 End: 03-02-2024 Patient encounter procedure 03/02/2024 9:40 AM EST Office Visit [facility] [address] [place] [address] Анна Ha NP [address] [place] [address] [facility] Start: 02-27-2024 Urine culture [facility] Start: 02-27-2024 Bacteria identified in Urine by Culture Urine Culture [facility] Start: 02-11-2024 End: 02-10-2025 ABO/Rh ABO/Rh Lab Routine Missed menses , unspecified gestational age Expected: 02/11/2024 (Approximate), Expires: 02/10/2025 [facility] Healthcare Comment on above: Expected: 02/11/2024 (Approximate), Expires: 02/10/2025 Start: 02-11-2024 End: 02-10-2025 Blood type and Indirect antibody screen panel - Blood Type and screen Lab Routine Missed menses , unspecified gestational age Expected: 02/11/2024 (Approximate), Expires: 02/10/2025 [facility] Work Phone: Comment on above: Expected: 02/11/2024 (Approximate), Expires: 02/10/2025 Start: 02-11-2024 End: 02-10-2025 Drugs of abuse panel - Urine by Screen method Rapid drug screen, urine Lab Routine , unspecified gestational age Encounter for supervision of normal first in first trimester Expected: 02/11/2024 (Approximate), Expires: 02/10/2025 [facility] Healthcare Comment on above: Expected: 02/11/2024 (Approximate), Expires: 02/10/2025 Start: 02-11-2024 End: 02-10-2025 US Pelvis transvaginal US OB transvaginal Imaging Routine Missed menses Expected: 02/11/2024 (Approximate), Expires: 02/10/2025 [facility] Healthcare Comment on above: Expected: 02/11/2024 (Approximate), Expires: 02/10/2025 Start: 02-11-2024 End: 02-11-2024 ambulatory 02/11/2024 10:00 AM EST Initial [facility] [address] [place] [phone] [facility] Start: 02-11-2024 End: 02-11-2024 Professional / ancillary services management 02/11/2024 9:30 AM EST Ancillary Procedure [facility] [address] [place] [address] [facility] Start: 2018 Screening for malign ant neoplasm of cervix HPV/Cotest [facility] Bacteria identified in Urine by Culture Urine culture Microbiology Routine Missed menses Ordered: 02/11/2024 [facility] Healthcare Comment on above: Ordered: 02/11/2024 CBC W Auto Different ial panel - Blood CBC and differential Lab Routine Missed menses , unspecified gestational age Ordered: 02/11/2024 [facility] Healthcare Comment on above: Ordered: 02/11/2024 CHLAMYDIA TRACHOMATI S (GENITO/STI) CHLAMYDIA TRACHOMATIS (GENITO/STI) Lab Routine Screen for STD (sexually transmitted disease) Ordered: 06/16/2024 [facility] Comment on above: Ordered: 06/16/2024 Cytology Cervical or vaginal smear or scraping study Pap Smear Pathology and Cytology Routine Well woman exam with routine gynecological exam Ordered: 12/10/2023 [facility] Work Phone: Comment on above: Ordered: 12/10/2023 Hemoglobin A1c/Hemoglobin.total in Blood Hemoglobin A1c Lab Routine Missed menses , unspecified gestational age Ordered: 02/11/2024 [facility] Comment on above: Ordered: 02/11/2024 Hepatitis B virus surface Ag [Presence] in Serum or Plasma by Immunoassay Hepatitis B surface antigen Lab Routine Missed menses , unspecified gestational age Ordered: 02/11/2024 [facility] Comment on above: Ordered: 02/11/2024 Hepatitis C virus Ab [Presence] in Serum or Plasma by Immunoassay Hepatitis C antibody Lab Routine Missed menses , unspecified gestational age Ordered: 02/11/2024 [facility] Comment on above: Ordered: 02/11/2024 HIV-1/HIV-2 antigen/antibody combination immunoassay HIV-1 and HIV-2 antibodies Lab Routine Missed menses , unspecified gestational age Ordered: 02/11/2024 [facility] Comment on above: Ordered: 02/11/2024 Human papilloma viru s DNA [Presence] in Unspecified specimen by Probe with amplification HPV DNA probe, amplified Microbiology Routine Well woman exam with routine gynecological exam Ordered: 12/10/2023 [facility] Comment on above: Ordered: 12/10/2023 Neisseria gonorrhoea e DNA [Presence] in Unspecified specimen by JUAN with probe detection Neisseria gonorrhea DNA probe, direct Lab Routine Screen for STD (sexually transmitted disease) Ordered: 06/16/2024 [facility] Comment on above: Ordered: 06/16/2024 Reagin Ab [Presence] in Serum by RPR RPR Lab Routine Missed menses , unspecified gestational age Ordered: 02/11/2024 [facility] Comment on above: Ordered: 02/11/2024 Rubella antibody, IgG Rubella an tibody, IgG Lab Routine Missed menses , unspecified gestational age Ordered: 02/11/2024 [facility] Comment on above: Ordered: 02/11/2024 SURESWAB(R) ADVANCED VAGINITIS PLUS, TMA SURESWAB(R) ADVANCED VAGINITIS PLUS, TMA Pathology and Cytology Routine Screen for STD (sexually transmitted disease) Ordered: 06/16/2024 [facility] Work Phone: Comment on above: Ordered: 06/16/2024 Immunizations Immunization Date Immunization Notes Care Provider Joan ornelas 12-08-2017 influenza, seasonal, injectable, preservative free Orlin Castro DO Work Phone: [facility] Payers Date Payer Category Payer Self-pay [id number] 2023 Managed Care HMO (unspecified) [employer] [id number] 2023 Private Health Insurance [id number] 2022 Medicaid (Managed Care) [employer] [id number] 1988 Unknown [id number] 2.16.840.1.318953.3.579. 2.593 1988 Unknown [id number] 2.16.840.1.879545.3.579. 2.59 1988 Unknown [id number] 2.16.840.1.328091.3.579. 2.593 1988 Unknown [id number] 2.16840.1.704262.3.579. 2.59 1988 Unknown [id number] 2.16840.1.168636.3.579. 2.1258 1988 Unknown [id number] 2.840.1.958489.3.579. 2.1258 1988 Unknown [id number] 2.840.1.597439.3.579. 2.1258 1988 Unknown [id number] 2.840.1.885631.3.579. 2.1258 1988 Unknown [id number] 2.840.1.898052.3.579. 2.1258 1988 Unknown [id number] 2.840.1.397453.3.579. 2.1258 1988 Unknown [id number] 2.16840.1.338476.3.579. 2.1258 1988 Unknown [id number] 2.840.1.815761.3.579. 2.1258 1988 Unknown [id number] 2.840.1.825492.3.579. 2.1258 1988 Unknown [id number] 2.16840.1.714383.3.579. 2.1258 1988 Unknown [id number] 2.16840.1.941405.3.579. 2.1258 1988 Unknown [id number] 2.16840.1.640091.3.579. 2.1258 1988 Unknown [id number] 2.16.840.1.570679.3.579. 2.1259 1988 Unknown [id number] 2.16.840.1.623273.3.579. 2.1259 1988 Unknown [id number] 2.16.840.1.402406.3.579. 2.1259 1959 Unknown [id number] Private Health Insurance [facility] Insurance Co [id number] Unknown [id number] 2.16.840.1.546737.3.579. 2.531 Unknown [id number] 2.16.840.1.674513.3.579. 2.531 Social History Date Type Detail Facility Start: 03-05-2019 End: 03-05-2019 Tobacco smoking status [facility] Never smoked tobacco (finding) [facility] Start: 1990 Sex Assigned At Female [facility] Start: 10-30-2022 Tobacco smoking status [facility] Ex-smoker [facility] End: 02-24-2014 History of tobacco use Current smoker [facility] End: 02-24-2014 History of tobacco use Cigarette Smoker [facility] Start: 10-30-2022 Tobacco use and exposure Smokeless tobacco non-user [facility] Start: 12-10-2023 End: 09-07-2024 Alcoholic beverage intake Lifetime non-drinker (finding) [facility] Start: 05-19-2023 End: 08-31-2024 History of Social function [facility] Start: 05-19-2023 End: 08-31-2024 Social connection and isolation panel [facility] Do you belong to any clubs or organizations such as mandaen groups, unions, fraternal [...] [facility] Start: 02-28-2024 Sex Female (finding) [facility] Do you feel stress - tense, restless, nervous, or anxious, or unable to sleep at night because your mind is troubled all the time - these days [OSQ] To some extent [facility] Goals Date Patient Goal Desired Activity /State Personal health goal Clinical Notes 12-10-2023 to 09-07-2024 Анна Ha NP - 09/07/2024 1:24 PM Shanthi Ha NP - 09/07/2024 1:24 PM Shanthi Ha NP - 09/07/2024 1:00 PM Sabrina Ferguson LPN - 09/02/2024 10:40 AM EDT Note Date & Type Note Facility 09-07-2024 History of Present illness Narrative Associated Problem(s): Insomnia Refill trazodone Fu in 6 months Associated Problem(s): Encounter for wellness examination in adult Reviewed Ht/Wt/BMI Recommend eye exam yearly Recommend dental exams twice a year Balance work/leisure activities Exercises is recommended most days of the week (appropriate as chronic conditions allow) Follow up yearly and prn Images from the original note were not included. Roxanne Marshall is a 34 y.o. female presents with chief complaint of Annual Exam HPI: Diet:balanced Activity: light activity, is Mental Health Concerns:no Any hearing problems: no Any Vision problems: no Any Hospitalizations in the last year:no Specialist:[employer] Concerns: SUBJECTIVE: MEDICATIONS: Current Outpatient Medications Medication [...] abnormal pap smear PAP SMEAR 03/07/2014 [facility]ICATION MANAGEMENT Drug Therapy -SVT TONSILLECTOMY 1992 family history includes Bladder Cancer in her maternal grandfather; COPD in her maternal grandfather; Cervical cancer in her maternal grandmother; Emphysema in her maternal grandfather; Heart disease in her maternal grandmother; Hypertension in her mother; Lupus in her mother; Multiple sclerosis in her father's sister and another family member; Ovarian cancer in an other family member. OBJECTIVE: Visit Vitals BP 110/78 (BP Location: Left arm, Patient Position: Sitting, BP Cuff Size: Adult long) Pulse 94 Temp 98 F Resp 18 Wt 178 lb 12.8 oz LMP 12/11/2023 SpO2 98% BMI 33.78 kg/m OB Status Smoking Status Former BSA 1.87 m Physical Exam Vitals and nursing note reviewed. [...] yearly and prn documented in this encounter [facility] 09-02-2024 History of Present illness Narrative Reason for Appointment: Patient ID: Roxanne Masrhall is a 34 y.o. female who presents [...] abnormal pap smear PAP SMEAR 03/07/2014 [facility] [place] [facility] Drug Therapy -SVT TONSILLECTOMY 1992 [...] nursing note reviewed. Exam conducted with a undercover agent present. Vitals: Estimated body mass index is 33.6 kg/m as calculated from the following: Height as of 24: 5' 1 . Weight as of this encounter: 177 lb 12.8 oz. BP: 120/70 Patient's last menstrual period was 12/11/2023. ASSESSMENT & PLAN ICD-10-CM 1. 36 weeks gestation of ([facility]) Z3A.36 POCT urinalysis dipstick manually resulted 2. Third trimester ([facility]) Z34.93 POCT urinalysis dipstick manually resulted CULTURE, GROUP B STREP WITH SUSCEPTIBLITY CULTURE, GROUP B STREP WITH SUSCEPTIBLITY 3. History of gestational diabetes Z86.32 4. Antepartum multigravida of advanced maternal age ([facility]) O09.529 Patient is doing well but has [...] by Ramandeep Ferguson LPN on behalf of: Orlin Castro DO documented in this encounter [facility] 08-18-2024 History of Present illness [...] abnormal pap smear PAP SMEAR 03/07/2014 [facility] [place] [facility] Drug Therapy -SVT TONSILLECTOMY 1992 [...] nursing note reviewed. Exam conducted with a undercover agent present. Vitals: Estimated body mass index is 33.07 kg/m as calculated from the following: Height as of 24: 5' 1 . Weight as of this encounter: 175 lb. BP: 116/82 Patient's last menstrual period was 12/11/2023. ASSESSMENT & PLAN ICD-10-CM 1. Third trimester ([facility]) Z34.93 2. 34 weeks gestation of ([facility]) Z3A.34 Return OB: Patient presents today for [...] with NST/BPP and doing well. Documented by Ximnea Carver NP on behalf of: Ximena Carver NP documented in this encounter [facility] 08-04-2024 History of Present illness [...] abnormal pap smear PAP SMEAR 03/07/2014 [facility] [place] [facility] Drug Therapy -SVT TONSILLECTOMY 1992 [...] nursing note reviewed. Exam conducted with a undercover agent present. 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 Artis needs to stop with preg. Cat. C [facility] Pap smear of vagina 2012 Overweight (BMI 25.0-29.9) SVT (supraventricular tachycardia) ([facility]) Torn meniscus Social History Tobacco Use Smoking [...] abnormal pap smear PAP SMEAR 03/07/2014 [facility] [place] [facility] Drug Therapy -SVT TONSILLECTOMY 1992 [...] GISELLE Cramer documented in this encounter [facility] 07-06-2024 History of Present illness [...] for wellness examination in adult 09/01/2023 Depression ([facility]) 09/01/2023 Resolved Ambulatory Problems Diagnosis Date Noted Major depressive disorder, single episode, mild (HCC) ([facility]) 09/01/2023 Past Medical History: Diagnosis Date Abnormal Pap smear of cervix 2009 Contraception management Current mild episode of major depressive disorder without prior episode (HCC) ([facility]) Degenerative joint disease of spine Encounter for IUD removal History of abnormal cervical Pap smear [facility] Pap smear of vagina 2012 Overweight (BMI 25.0-29.9) SVT (supraventricular tachycardia) ([facility]) Torn meniscus HISTORY PAST MEDICAL HISTORY SOCIAL HISTORY Past Medical History: Diagnosis Date Abnormal Pap smear of cervix 2009 Contraception management Current mild episode of major depressive disorder without prior episode (HCC) ([facility]) 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 Artis needs to stop with preg. Cat. C [facility] Pap smear of vagina 2012 Overweight (BMI 25.0-29.9) SVT (supraventricular tachycardia) ([facility]) Torn meniscus Social History Tobacco Use Smoking [...] abnormal pap smear PAP SMEAR 03/07/2014 [facility] [place] [facility] Drug Therapy -SVT TONSILLECTOMY 1992 [...] nursing note reviewed. Exam conducted with a undercover agent present. Vitals: Estimated body mass index is [...] Castro DO documented in this encounter [facility] 06-16-2024 History of Present illness [...] for wellness examination in adult 09/01/2023 Depression ([facility]) 09/01/2023 Resolved Ambulatory Problems Diagnosis Date Noted [...] abnormal pap smear PAP SMEAR 03/07/2014 [facility] [place] [facility] Drug Therapy -SVT TONSILLECTOMY 1992 [...] nursing note reviewed. Exam conducted with a undercover agent present. Vitals: Estimated body mass index is [...] Carver NP documented in this encounter [facility] 04-07-2024 History of Present illness [...] Major depressive disorder, single episode, mild (HCC) ([facility]) 09/01/2023 Past Medical History: Diagnosis Date Abnormal Pap smear of cervix 2009 Contraception management Current mild episode of major depressive disorder without prior episode (HCC) ([facility]) Degenerative joint disease of spine Encounter for IUD removal History of abnormal cervical Pap smear [facility] Pap smear of vagina 2012 Overweight (BMI 25.0-29.9) SVT (supraventricular tachycardia) ([facility]) Torn meniscus HISTORY PAST MEDICAL HISTORY SOCIAL HISTORY Past Medical History: Diagnosis Date Abnormal Pap smear of cervix 2009 Contraception management Current mild episode of major depressive disorder without prior episode (HCC) ([facility]) 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 Artis needs to stop with preg. Cat. C [facility] Pap smear of vagina 2012 Overweight (BMI 25.0-29.9) SVT (supraventricular tachycardia) ([facility]) Torn meniscus Social History Tobacco Use Smoking [...] abnormal pap smear PAP SMEAR 03/07/2014 [facility] [place] [facility] Drug Therapy -SVT TONSILLECTOMY 1992 [...] GISELLE Cramer documented in this encounter [facility] 03-10-2024 History of Present illness [...] Diagnosis Date Noted Insomnia 02/27/2023 Supraventricular tachycardia ([facility]) 12/09/2019 Left wrist pain 05/03/2023 Obesity (BMI 30-39.9) 05/26/2023 Encounter for wellness examination in adult 09/01/2023 Depression ([facility]) 09/01/2023 Resolved Ambulatory Problems Diagnosis Date Noted Major depressive disorder, single episode, mild (HCC) ([facility]) 09/01/2023 Past Medical History: Diagnosis Date Abnormal Pap smear of cervix 2009 Contraception management Current mild episode of major depressive disorder without prior episode (HCC) ([facility]) Degenerative joint disease of spine Encounter for IUD removal History of abnormal cervical Pap smear [facility] Pap smear of vagina 2012 Overweight (BMI 25.0-29.9) SVT (supraventricular tachycardia) ([facility]) Torn meniscus HISTORY PAST MEDICAL HISTORY SOCIAL [...] 2012 Overweight (BMI 25.0-29.9) SVT (supraventricular tachycardia) ([facility]) Torn meniscus Social History Tobacco Use Smoking [...] abnormal pap smear PAP SMEAR 03/07/2014 [facility] [place] [facility] Drug Therapy -SVT TONSILLECTOMY 1992 [...] nursing note reviewed. Exam conducted with a undercover agent present. Vitals: Estimated body mass index is [...] meat, and stay away from formerly [facility]. Patient has been consulted regarding any [...] Castro DO documented in this encounter [facility] 02-11-2024 History of Present illness [...] abnormal pap smear PAP SMEAR 03/07/2014 [facility] [place] [facility] Drug Therapy -SVT TONSILLECTOMY 1992 [...] meat, and stay away from formerly [facility]. Patient has also been advised to not change litter boxes and eat 6 small meals a day. Patient has been consulted regarding the do's and don'ts of . Patient was given labs and all questions and concerns were answered. Patient was given [place] to have completed at 10 weeks. Follow Up: Patient is to return in 4 weeks for routine OB appointment. Follow Up: Patient is to have labs drawn at directed and return to office for initial OB appointment with provider. Patient may call office as needed with any concerns or questions. Nurse Visit Completed by: Lynnette Stapleton LPN documented in this encounter [facility] 12-10-2023 History of Present illness [...] abnormal pap smear PAP SMEAR 03/07/2014 [facility] [place] [facility] Drug Therapy -SVT TONSILLECTOMY 1992 [...] nursing note reviewed. Exam conducted with a undercover agent present. Vitals: Estimated body mass index is [...] No assessment inform ation available [facility] Work Phone: Evaluation note Diagnosis Primary [...] diabetes mellitus SGA (small for gestational age) [id number] without mention of malnutrition, unspecified (weight) documented [...] 30-39.9) Depression, unspecified depression type Third trimester ([facility]) state, incidental 34 weeks gestation of ([facility]) [facility] [...] unspecified depression type 36 weeks gestation of ([facility]) Third trimester ([facility]) state, incidental History of gestational diabetes Personal history of other genital system and obstetric disorders Antepartum multigravida of advanced maternal age ([facility]) [facility]* Diagnosis Primary insomnia- Primary Persistent disorder of initiating or maintaining sleep Obesity (BMI 30-39.9) Encounter for wellness examination in adult- Primary Major depressive disorder, single episode, mild Major depressive disorder, single episode, mild Primary insomnia Persistent disorder of initiating or maintaining sleep Obesity (BMI 30-39.9) Depression, unspecified depression type Encounter for wellness examination in adult- Primary [...] CREATED AUTHOR AUTHOR'S ORGANIZ ATION 03/06/2024 [facility] DATE CREATED AUTHOR AUTHOR'S ORGANIZ ATION 09/11/2024 [facility] EPIC Care Teams (unrecognized sec tion and content) Team Status: Active Member Role Status Dates Dar Brody MD Primary Care Provider Active Team Status: Inactive Member Role Status Dates Dar Brody MD Primary Care Provider Active Start: June 30, 2023 End: June 30, 2023 Orlin Castro Attending Provider Active Start: Viky brewer 2023 End: June 30, 2023 Construction Specialist Relationship Specialty Start Date End Date Parag Bradley MD [address] [place] [phone] PCP - [facility] 08/14/22 Анна Ha NP [address] [place] [phone] PCP - [facility] 08/25/23 Construction Specialist Relationship Specialty Start Date End Date Parag Bradley MD [address] [place] [phone] PCP - [facility] 08/14/22 Анна Ha NP [address] [place] [phone] PCP - [facility] 08/25/23 Construction Specialist Relationship Specialty Start Date End Date Parag Bradley MD [address] [place] [phone] PCP - [facility] 08/14/22 Анна Ha NP [address] [place] [phone] PCP - [facility] 08/25/23 Construction Specialist Relationship Specialty Start Date End Date Parag Bradley MD [address] [place] [phone] PCP - [facility] 08/14/22 Анна Ha NP [address] [place] [phone] [facility] 08/25/23 Construction Specialist Relationship Specialty Start Date End Date Parag Bradley MD [address] [place] [phone] PCP - [facility] 08/14/22 Анна Ha NP [address] [place] [phone] [facility] 08/25/23 Construction Specialist Relationship Specialty Start Date End Date Parag Bradley MD [address] [place] [phone] [facility] 08/14/22 Анна Ha NP [address] [place] [phone] [facility] 08/25/23 Team Status: Inactive Member Role Status Dates Orlin Castro DO Attending Provider Active Start : February 27, 2024 End: February 27, 2024 Construction Specialist Relationship Specialty Start Date End Date Parag Bradley MD [address] [place] [phone] PCP - [facility] 08/14/22 Анна Ha NP [address] [place] [phone] [facility] 08/25/23 Construction Specialist Relationship Specialty Start Date End Date Parag Bradley MD [address] [place] [phone] PCP - [facility] 08/14/22 Анна Ha NP [address] [place] [phone] PCP [facility] 08/25/23 Construction Specialist Relationship Specialty Start Date End Date Parag Bradley MD [address] [place] [phone] PCP - [facility] 08/14/22 Анна Ha NP [address] [place] [phone] [facility] 08/25/23 Construction Specialist Relationship Specialty Start Date End Date Parag Bradley MD [address] [place] [phone] PCP - [facility] 08/14/22 Анна Ha NP [address] [place] [phone] [facility] 08/25/23 Construction Specialist Relationship Specialty Start Date End Date Parag Bradley MD [address] [place] [phone] PCP - [facility] 08/14/22 Анна Ha NP [address] [place] [address] PCP - [facility] 08/25/23 Construction Specialist Relationship Specialty Start Date End Date Parag Bradley MD [address] [place] [phone] PCP - General Family Medicine 08/14/22 Анна Ha NP [address] [place] [address] PCP - [facility] 08/25/23 Goals (unrecognized section and content) Goals may be documented in a n alternate sectionGoals may be documented in an alternate section Reason for Visit (unrecogniz ed section and content) Reason Comments Well Women Visit Reason Comments Amenorrhea Reason Onset Date Comments Med Refill 02/25/2024 Reason Comments Routine Visit Reason Comments Med Refill Reason Comments Annual Exam FOR RECORDS PERTAINING TO PATIENTS WHO ARE [...] BE BASED ON THE PRIMARY CLINICAL RECORDS. [facility]. provides no warranty or guarantee of the accuracy or completeness of information in this document.
--- NOTE | 2024-09-11 11:02 | US_ITS ---
[place] [id number] Patient Name: ROXANNE ROGERS MRN: [id number] date: 1990 Sex: F Assigned Patient Location: [facility] Current Patient Location: Accession/Order Number: [id number] Exam Date: 09/11/2024 14:21 Report Date: 09/11/2024 14:23 At the request of: ORLIN ESCOBAR DO Procedure: US OB BPP w non-stress Ultrasound biophysical profile, comparison: 09/09/2024 INDICATION: Abnormal biophysical profile 08/01 COMPARISON: 09/08/2024 FINDINGS: Single live intrauterine gestation. heart rate 147 beats per minutes. Cephalic position. Amniotic fluid index measures 11.6 cm. 6 out of 8 biophysical profile score receiving 0 for breathing movements. US/US OB BPP w non-stress IMPRESSION: 6 out of 8 score with score of 0 for breathing motion Impression dictated by: Jake Sheets M.D. 09/11/2024 2:23 PM Dictation Location: [place] Electronically authenticated by: [id number] Y Date: 09/11/2024 14:23
[2024-09-11 11:47] VITALS: BP 134/84; PULSE 68; TEMP 36.2
[2024-09-11 13:23] VITALS: BP 122/78; PULSE 50
== END 2024-09-11 13:25 | disposition home or self-care (01) ==
LOC: FBCO 10:58 → FBC 11:01
PROVIDERS: PCP Nurse Practitioner; Visit Provider Obstetrics & Gynecology
DX: O24.419 Gestational diabetes mellitus in pregnancy, unspecified control (principal)
CPT/HCPCS: 76818

== ENCOUNTER 2024-09-12 07:50 | Outpatient (OUT) | payer OTHER, SELFPAY ==
--- OUTSIDE RECORDS SUMMARY | 2024-09-12 07:54 | XMS_ITS | CCD ---
Author Organization [facility] ion [facility] Care Team Providers Care Ems Instructor Name Role Phone AICHHOLZ, PROVIDER RELATIONS REP АННА Primary Care Unavailable PAY, DR LIN Admitting Unavailable PAY, DR LIN Attending Unavailable GISELLE RESTREPO Consulting Unavailable GLORIA, DR ORDAZ Admitting Unavailable GLORIA, DR ORDAZ Attending Unavailable AICHHOLZ, PROVIDER RELATIONS REP АННА Primary Care Unavailable GLORIA, DR ORDAZ Consulting Unavailable AICHHOLZ, PROVIDER RELATIONS REP АННА Admitting Unavailable AICHHOLZ, PROVIDER RELATIONS REP АННА Attending Unavailable AICHHOLZ, PROVIDER RELATIONS REP АННА Primary Care Unavailable AICHHOLZ, PROVIDER RELATIONS REP АННА Consulting Unavailable AICHHOLZ, PROVIDER RELATIONS REP АННА Primary Care Unavailable DON, DR BIRD Admitting Unavailable DON, DR BIRD Attending Unavailable GISELLE RESTREPO Consulting Unavailable PHOEBE ALFARO Consulting Unavailable MD Dar Brody Primary Care Provider Slava Castro Attending Provider Parag Bradley MD Primary Care Provider Aichholz SENIOR INFRASTRUCTURE ARCHITECT, Анна Unavailable Slava Castro DO Attending Provider Mik Castroy Attending Unavailable Gloria, Slava Admitting Unavailable Dar Brody Primary Care Unavailable GloriaMiky Attending Unavailable Gloria, Slava Admitting Unavailable VIDYA JACKSON Attending Unavailable COCO VIDYA Referring Unavailable GLORIA, SLAVA Attending Unavailable CELY CARVER Attending Unavailable GLORIA SLAVA Referring Unavailable GLORIA, SLAVA Attending Unavailable GLORIA, SLAVA Attending Unavailable VIDYA JACKSON Attending Unavailable GLORIAMIKY Attending Unavailable CELY CARVER Attending Unavailable GLORIAMIKY Attending Unavailable AICHHOLZ, АННА Attending Unavailable SLAVA CASTRO Attending Unavailable SLAVA CASTRO Attending Unavailable Allergies Allergy Classification Reported [...] 81 mg by mouth Daily Active levonorgestrel 0.095566 mg/hr intrauterine system (2 sources) Progestin, Progestin-containi [...] capsule Indications: Heartburn during in second trimester ([facility]) Take 1 capsule [...] 09-01-2023 09-01-2023 Chronic Other aftercare (1 source) 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; Translations: [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 HORMONAL CONTRACEPTIVES] Onset: 02-22-2022 Episodic Other aftercare (1 source) Other custodial (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 therapy; Translations: [OTH SENIOR CARE CURRENT DRUG THERAPY] Onset: 02-22-2022 Episodic Other [...] low weight; and growth retardation (2 sources) Ajfdt-jgd-gasah baby; Translations: [[place] small for gestational age, unspecified weight] 07-06-2024 [...] Value Interpretation Reference Range Facility US OB BPP W NON-STRESS on 09-11-2024 [place] [address] Ultrasound Report Signed Patient: SHREYA MARSHALL MR#: [id number] : 1990 Acct:[id number] Age/Sex: 34 / F ADM Date: 09/11/24 Loc: FBCO Attending Dr: Slava Castro D.O. Ordering Physician: Slava Castro D.O. Date of Service: 09/11/24 Procedure(s): US OB BPP w non-stress Accession Number(s): [id number] cc: Анна Ha SENIOR INFRASTRUCTURE ARCHITECT; Slava Castro D.O. [place] [id number] Patient Name: SHREYA MARSHALL MRN: TBH:[id number] date: 1990 Sex: F Assigned Patient Location: [facility] Current Patient Location: Accession/Order Number: [id number] Exam Date: 09/11/2024 14:21 Report Date: 09/11/2024 14:23 At the request of: SLAVA CASTRO DO Procedure: US OB BPP w non-stress Ultrasound biophysical profile, comparison: 09/09/2024 INDICATION: Abnormal biophysical profile 08/01 COMPARISON: 09/08/2024 FINDINGS: Single live intrauterine gestation. heart rate 147 beats per minutes. Cephalic position. Amniotic fluid index measures 11.6 cm. 6 out of 8 biophysical profile score receiving 0 for breathing movements. US/US OB BPP w non-stress IMPRESSION: 6 out of 8 score with score of 0 for breathing motion Impression dictated by: Jake Sheets M.D. 09/11/2024 2:23 PM Dictation Location: [place] [address] Electronically authenticated by: [id number] Y Date: 09/11/2024 14:23 Dictated By: Jake Sheets M.D. Signed By: 09/11/24 1425 DD/ 142 TD/TT: Pharmaceutical Sales Specialist: [facility] Radiology, Radiologist, MD - 09/11/2024 [place] [address] Ultrasound Report Signed Patient: SHREYA MARSHALL MR#: [id number] : 1990 Acct:[id number] Age/Sex: 34 / F ADM Date: 09/11/24 Loc: FBCO Attending Dr: Slava Castro D.O. Ordering Physician: Slava Castro D.O. Date of Service: 09/11/24 Procedure(s): US OB BPP w non-stress Accession Number(s): [id number] cc: Анна Ha SENIOR INFRASTRUCTURE ARCHITECT; Slava Castro D.O. The [address] [address] Patient Name: SHREYA MARSHALL MRN: [facility]:[id number] date: 1990 Sex: F Assigned Patient Location: [facility] Current Patient Location: Accession/Order Number: [id number] Exam Date: 09/11/2024 14:21 Report Date: 09/11/2024 14:23 At the request of: SLAVA CASTRO DO Procedure: US OB BPP w non-stress Ultrasound biophysical profile, comparison: 09/09/2024 INDICATION: Abnormal biophysical profile 08/01 COMPARISON: 09/08/2024 FINDINGS: Single live intrauterine gestation. heart rate 147 beats per minutes. Cephalic position. Amniotic fluid index measures 11.6 cm. 6 out of 8 biophysical profile score receiving 0 for breathing movements. US/US OB BPP w non-stress IMPRESSION: 6 out of 8 score with score of 0 for breathing motion Impression dictated by: Jake Sheets M.D. 09/11/2024 2:23 PM Dictation Location: [place] [address] Electronically authenticated by: [id number] Y Date: 09/11/2024 14:23 Dictated By: Jake Sheets M.D. Signed By: 09/11/24 142 DD/ 22 TD/TT: Pharmaceutical Sales Specialist: [facility] Radiology Study observation (narrative) [facility] US OB BPP W NON-STRESS Ordered By: Radiologist Radiology on 09-11-2024 [facility] Work Phone: No Panel InformationOrdered By: Radiologist Radiology on 09-09-2024 [facility] Work Phone: No Panel Informationon 09-09 Radiology Study observation (narrative) [facility] US OB BPP W NON-STRESS on 09-09-2024 [place] [address] Ultrasound Report Signed Patient: SHREYA MASRHALL MR#: [id number] : 1990 Acct:[id number] Age/Sex: 34 / F ADM Date: 09/08/24 Loc: US Attending Dr: Vidya Jackson Ordering Physician: Vidya Jackson Date of Service: 09/08/24 Procedure(s): US OB BPP w non-stress Accession Number(s): [id number] cc: Анна Ha SENIOR INFRASTRUCTURE ARCHITECT; Vidya Jackson [place] [phone] Patient Name: SHREYA MARSHALL MRN: TBH:[id number] date: 1990 Sex: F Assigned Patient Location: US Current Patient Location: Accession/Order Number: [id number] Exam Date: 09/09/2024 08:04 Report Date: 09/09/2024 [...] Auguste M.D. 09/09/2024 8:12 AM Dictation Location: [place] [address] Electronically authenticated by: [id number] Y Date: 09/09/2024 08:12 Dictated By: Isatu Auguste M.D. Signed By: 09/09/24813 DD/ 1 TD/TT: Pharmaceutical Sales Specialist: [facility] Radiology, Radiologist, - 09/09/2024 [place] [address] Ultrasound Report Signed Patient: SHREYA MARSHALL MR#: [id number] : 1990 Acct:[id number] Age/Sex: 34 / F ADM Date: 09/08/24 Loc: US Attending Dr: Vidya Jackson Ordering Physician: Vidya Jackson Date of Service: 09/08/24 Procedure(s): US OB BPP w non-stress Accession Number(s): [id number] cc: Анна Ha NP; Vidya Jackson [place] [phone] Patient Name: SHREYA MARSHALL MRN: [id number] date: 1990 Sex: F Assigned Patient Location: US Current Patient Location: Accession/Order Number: [id number] Exam Date: 09/09/2024 08:04 Report Date: 09/09/2024 [...] Auguste M.D. 09/09/2024 8:12 AM Dictation Location: [place] [address] Electronically authenticated by: [id number] Y Date: 09/09/2024 08:12 Dictated By: Isatu Auguste M.D. Signed By: 09/09/24813 DD/ 1 TD/TT: Pharmaceutical Sales Specialist: [facility] OB GROWTHon 09-09-2024 [place] [address] Ultrasound Report Signed Patient: SHREYA MARSHALL MR#: [id number] : 1990 Acct:[id number] Age/Sex: 34 / F ADM Date: 09/08/24 Loc: US Attending Dr: Vidya Jackson Ordering Physician: Vidya Jackson Date of Service: 09/08/24 Procedure(s): US OB growth Accession Number(s): [id number] cc: Анна Ha NP; Vidya Jackson [place] [address] Patient Name: SHREYA MARSHALL MRN: [facility]:[id number] date: 1990 Sex: F Assigned Patient Location: [facility] Current Patient Location: Accession/Order Number: [id number] Exam Date: 09/09/2024 08:04 Report Date: 09/09/2024 [...] Auguste M.D. 09/09/2024 8:12 AM Dictation Location: [place] [address] Electronically authenticated by: [id number] Y Date: 09/09/2024 08:12 Dictated By: Isatu Auguste M.D. Signed By: 09/09/24 0814 DD/ 1 TD/TT: Pharmaceutical Sales Specialist: [facility] Radiology, Radiologist, MD - 09/09/2024 [place] [address] Ultrasound Report Signed Patient: SHREYA MARSHALL MR#: [id number] : 1990 Acct:[id number] Age/Sex: 34 / F ADM Date: 09/08/24 Loc: US Attending Dr: Vidya Jackson Ordering Physician: Vidya Jackson Date of Service: 09/08/24 Procedure(s): US OB growth Accession Number(s): [id number] cc: Анна Ha NP; Vidya Jackson [address] [address] Patient Name: SHREYA MARSHALL MRN: [facility]:[id number] date: 1990 Sex: F Assigned Patient Location: [facility] Current Patient Location: Accession/Order Number: [id number] Exam Date: 09/09/2024 08:04 Report Date: 09/09/2024 [...] Auguste M.D. 09/09/2024 8:12 AM Dictation Location: [place] [address] Electronically authenticated by: [id number] Y Date: 09/09/2024 08:12 Dictated By: Isatu Auguste M.D. Signed By: 09/09/24813 DD/ 1 TD/TT: Pharmaceutical Sales Specialist: [facility] STREP GP B CULTURE+RFLXon STREP GP B CULTURE+RFLX Strep Gp B Culture+Rflx [facility] STREP GP B CULTURE+RFLX Negative [facility] STREP GP B CULTURE+RFLX Centers for Disease Control and Prevention (CDC) and [facility] STREP GP B CULTURE+RFLX [employer] [facility] [...] Healthcare STREP GP B CULTURE+RFLX Performed at: - [facility] STREP GP B CULTURE+RFLX [address] [place], [place] [id number] [facility] STREP GP B CULTURE+RFLX Optometry Professor: Tony Bynum PhD, Phone: [phone] [facility] Urinalysis macro (dipstick) panel (U)on 09-02-2024 Bilirubin, UA Negative Negative - 4(70) +++ mg/dL [facility] Blood, UA Negative Negative - 50 Richy/mcL [facility] Clarity, UA Clear [facility] Color, UA Yellow [facility] Glucose, UA Negative Negative - 2000(110) ++++ mg/dL [facility] Interpretation and review of laboratory results Abnormal [facility] Ketones, UA Negative Negative - 160(16) ++++ mg/dL [facility] Leukocytes, UA Negative Negative - 500+++ Tano/mcL [facility] Nitrite, UA Negative Negative - Positive [facility] pH, UA 6 5 - 9 [facility] Protein, UA Positive Negative - 2000(20) ++++ mg/dL [facility] Comment on above: 30 Spec Grav, UA 1.02 1 - 1.03 [facility] Urobilinogen, UA 1.0 0.2 - 12 mg/dL [facility] US OB BPP W NON-STRESS on 09-01-[address] [address] Ultrasound Report Signed Patient: SHREYA MARSHALL MR#: [id number] : 1990 Acct:[id number] Age/Sex: 34 / F ADM Date: 09/01/24 Loc: US Attending Dr: Vidya Jackson Ordering Physician: Vidya Jackson Date of Service: 09/01/24 Procedure(s): US OB BPP w non-stress Accession Number(s): [id number] cc: Анна Ha NP; Vidya Jackson [address] [address] Patient Name: SHREYA MARSHALL MRN: TBH:[id number] date: 1990 Sex: F Assigned Patient Location: US Current Patient Location: Accession/Order Number: [id number] Exam Date: 09/01/2024 15:10 Report Date: 09/01/2024 [...] Perez M.D. 09/01/2024 3:11 PM Dictation Location: [place] [address] Electronically authenticated by: [id number] Y Date: 09/01/2024 15:11 Dictated By: Emilio Perez D.O. Signed By: 09/01/24 1513 DD/ 1511 TD/TT: Pharmaceutical Sales Specialist: [facility] Radiology, Radiologist, MD - 09/01/2024 [place] [address] Ultrasound Report Signed Patient: SHREYA MARSHALL MR#: [id number] : 1990 Acct:[id number] Age/Sex: 34 / F ADM Date: 09/01/24 Loc: US Attending Dr: Vidya Jackson Ordering Physician: Vidya Jackson Date of Service: 09/01/24 Procedure(s): US OB BPP w non-stress Accession Number(s): [id number] cc: Анна Ha SENIOR INFRASTRUCTURE ARCHITECT; Vidya Jackson The [address] [address] Patient Name: SHREYA MARSHALL MRN: [facility]:[id number] date: 1990 Sex: F Assigned Patient Location: Current Patient Location: Accession/Order Number: [id number] Exam Date: 09/01/2024 15:10 Report Date: 09/01/2024 [...] Perez M.D. 09/01/2024 3:11 PM Dictation Location: [place] [address] Electronically authenticated by: [id number] Y Date: 09/01/2024 15:11 Dictated By: Emilio Perez D.O. Signed By: 09/01/24 1513 DD/ 10 TD/TT: Pharmaceutical Sales Specialist: [facility] Radiology Study observation (narrative) [facility] US OB BPP W NON-STRESS Ordered By: Radiologist Radiology on 09-01-2024 [facility] Work Phone: US OB BPP W NON-STRESS on 08-25-2024 [place] [address] Ultrasound Report Signed Patient: SHREYA MARSHALL MR#: [id number] : 1990 Acct:[id number] Age/Sex: 33 / F ADM Date: 08/25/24 Loc: [facility] 253-[address]: Vidya Jackson Ordering Physician: Vidya Jackson Date of Service: 08/25/24 Procedure(s): US OB BPP w non-stress Accession Number(s): [id number] cc: Анна Ha NP; Vidya Jackson [place] [address] Patient Name: SHREYA MARSHALL MRN: [facility]:[id number] date: 1990 Sex: F Assigned Patient Location: [facility] Current Patient Location: [facility] Accession/Order Number: [id number] Exam Date: 08/25/2024 11:31 Report Date: 08/25/2024 [...] This is in normal range. Total score: 8/ US/US OB BPP w non-stress IMPRESSION: NORMAL BIOPHYSICAL PROFILE. Impression dictated by: Isatu Auguste M.D. 08/25/2024 11:33 AM Dictation Location: [place] [address] Electronically authenticated by: [id number] Y Date: 08/25/2024 11:33 Dictated By: Isatu Auguste M.D. Signed By: 08/25/24 1135 DD/ 1133 TD/TT: Pharmaceutical Sales Specialist: [facility] Radiology, Radiologist, MD - 08/25/2024 [place] [address] Ultrasound Report Signed Patient: SHREYA MARSHALL MR#: [id number] : 1990 Acct:[id number] Age/Sex: 33 / F ADM Date: 08/25/24 Loc: [facility] 253-[address]: Vidya Jackson Ordering Physician: Vidya Jackson Date of Service: 08/25/24 Procedure(s): US OB BPP w non-stress Accession Number(s): [id number] cc: Анна Ha NP; Vidya Jackson The [address] [address] Patient Name: SHREYA MARSHALL MRN: [facility]:[id number] date: 1990 Sex: F Assigned Patient Location: [facility] Current Patient Location: [facility] Accession/Order Number: [id number] Exam Date: 08/25/2024 11:31 Report Date: 08/25/2024 [...] Auguste M.D. 08/25/2024 11:33 AM Dictation Location: [place] [address] Electronically authenticated by: [id number] Y Date: 08/25/2024 11:33 Dictated By: Isatu Auguste M.D. Signed By: 08/25/24 1135 DD/ 1133 TD/TT: Pharmaceutical Sales Specialist: [facility] Radiology Study observation (narrative) [facility] US OB BPP W NON-STRESS Ordered By: Radiologist Radiology on 08-25-2024 [facility] Work Phone: US OB BPP W NON-STRESS on 08-18-2024 [place] [address] Ultrasound Report Signed Patient: SHREYA MARSHALL MR#: [id number] : 1990 Acct:[id number] Age/Sex: 33 / F ADM Date: 08/18/24 Loc: US Attending Dr: Vidya Jackson Ordering Physician: Vidya Jackson Date of Service: 08/18/24 Procedure(s): US OB BPP w non-stress Accession Number(s): [id number] cc: Анна Ha NP; Vidya Jackson The [place] [address] Patient Name: SHREYA MARSHALL MRN: [facility]:[id number] date: 1990 Sex: F Assigned Patient Location: [facility] Current Patient Location: Accession/Order Number: [id number] Exam Date: 08/18/2024 11:47 Report Date: 08/18/2024 11:48 At the request of: VIDYA JACKSON Procedure: US OB BPP w non-stress BIOPHYSICAL PROFILE: CLINICAL INFORMATION: History of gestational diabetes Z86.32 COMPARISON: 08/13/2024 There is a single live intrauterine gestation in cephalic presentation. The reported gestational age is 34 weeks 5 days. The heart rate [id number] beats per minute. FINDINGS: TONE: 1 or [...] Auguste M.D. 08/18/2024 11:48 AM Dictation Location: [place] [address] Electronically authenticated by: [id number] Y Date: 08/18/2024 11:48 Dictated By: Isatu Auguste M.D. Signed By: 08/18/24 1151 DD/ 1148 TD/TT: Pharmaceutical Sales Specialist: [facility] Radiology, Radiologist, MD - 08/18/2024 [place] [address] Ultrasound Report Signed Patient: SHREYA MARSHALL MR#: [id number] : 1990 Acct:[id number] Age/Sex: 33 / F ADM Date: 08/18/24 Loc: Attending Dr: Vidya Jackson Ordering Physician: Vidya Jackson Date of Service: 08/18/24 Procedure(s): US OB BPP w non-stress Accession Number(s): [id number] cc: Анна Ha NP; Vidya Jackson [place] [id number] Patient Name: SHREYA MARSHALL MRN: [facility]:[id number] date: 1990 Sex: F Assigned Patient Location: [facility] Current Patient Location: Accession/Order Number: [id number] Exam Date: 08/18/2024 11:47 Report Date: 08/18/2024 11:48 At the request of: VIDYA JACKSON Procedure: US OB BPP w non-stress BIOPHYSICAL PROFILE: CLINICAL INFORMATION: History of gestational diabetes Z86.32 COMPARISON: 08/13/2024 There is a single live intrauterine gestation in cephalic presentation. The reported gestational age is 34 weeks 5 days. The heart rate [id number] beats per minute. FINDINGS: TONE: 1 or [...] Auguste M.D. 08/18/2024 11:48 AM Dictation Location: [place] [address] Electronically authenticated by: [id number] Y Date: 08/18/2024 11:48 Dictated By: Isatu Auguste M.D. Signed By: 08/18/24 1151 DD/ 1148 TD/TT: Pharmaceutical Sales Specialist: [facility] Radiology Study observation (narrative) [facility] US OB BPP W NON-STRESS Ordered By: Radiologist Radiology on 08-18-2024 [facility] Work Phone: US OB BPP W NON-STRESS on 08-13-2024 [place] [address] Ultrasound Report Signed Patient: SHREYA MARSHALL MR#: [id number] : 1990 Acct:[id number] Age/Sex: 33 / F ADM Date: 08/13/24 Loc: US Attending Dr: Slava Castro D.O. Ordering Physician: Slava Castro D.O. Date of Service: 08/13/24 Procedure(s): US OB BPP w non-stress Accession Number(s): [id number] cc: Анна Ha SENIOR INFRASTRUCTURE ARCHITECT; Slava Castro D.O. [place] [phone] Patient Name: SHREYA MARSHALL MRN: [facility]:[id number] date: 1990 Sex: F Assigned Patient Location: [facility] Current Patient Location: Accession/Order Number: [id number] Exam Date: 08/13/2024 17:25 Report Date: 08/13/2024 [...] Camacho M.D. 08/13/2024 5:27 PM Dictation Location: [place] [address] Electronically authenticated by: [id number] Y Date: 08/13/2024 17:27 Dictated By: Nilo Camacho M.D. Signed By: 08/13/241728 DD/ 26 TD/TT: Pharmaceutical Sales Specialist: [facility] Radiology, Radiologist, - 08/13/2024 [place] [address] Ultrasound Report Signed Patient: SHREYA MARSHALL MR#: [id number] : 1990 Acct:[id number] Age/Sex: 33 / F ADM Date: 08/13/24 Loc: US Attending Dr: Slava Castro D.O. Ordering Physician: Slava Castro D.O. Date of Service: 08/13/24 Procedure(s): US OB BPP w non-stress Accession Number(s): [id number] cc: Анна Ha SENIOR INFRASTRUCTURE ARCHITECT; Slava Castro D.O. The [place] [address] Patient Name: SHREYA MARSHALL MRN: [facility]:[id number] date: 1990 Sex: F Assigned Patient Location: [facility] Current Patient Location: Accession/Order Number: [id number] Exam Date: 08/13/2024 17:25 Report Date: 08/13/2024 [...] Camacho M.D. 08/13/2024 5:27 PM Dictation Location: [place] [address] Electronically authenticated by: [id number] Y Date: 08/13/2024 17:27 Dictated By: Nilo Camacho M.D. Signed By: 08/13/241728 DD/ 26 TD/TT: Pharmaceutical Sales Specialist: [facility] Radiology Study observation (narrative) [facility] US OB BPP W NON-STRESS Ordered By: Radiologist Radiology on 08-13-2024 [facility] Work Phone: US OB BPP W NON-STRESS on 08-11-2024 [place] [address] Ultrasound Report Signed Patient: SHREYA MARSHALL MR#: [id number] : 1990 Acct:[id number] Age/Sex: 33 / F ADM Date: 08/11/24 Loc: [facility] 254-[address]: Vidya Jackson Ordering Physician: Vidya Jackson Date of Service: 08/11/24 Procedure(s): US OB BPP w non-stress Accession Number(s): [id number] cc: Анна Ha NP; Vidya Jackson [place] [address] Patient Name: SHREYA MARSHALL MRN: [facility]:[id number] date: 1990 Sex: F Assigned Patient Location: [facility] Current Patient Location: [facility] Accession/Order Number: [id number] Exam Date: 08/11/2024 12:18 Report Date: 08/11/2024 [...] Auguste M.D. 08/11/2024 12:20 PM Dictation Location: [place] [address] Electronically authenticated by: [id number] Y Date: 08/11/2024 12:20 Dictated By: Isatu Auguste M.D. Signed By: 08/11/24 1222 DD/ 1220 TD/TT: Pharmaceutical Sales Specialist: [facility] Radiology, Radiologist, - 08/11/2024 [place] [address] Ultrasound Report Signed Patient: SHREYA MARSHALL MR#: [id number] : 1990 Acct:[id number] Age/Sex: 33 / F ADM Date: 08/11/24 Loc: [facility] 254-[address]: Vidya Jackson Ordering Physician: Vidya Jackson Date of Service: 08/11/24 Procedure(s): US OB BPP w non-stress Accession Number(s): [id number] cc: Анна Ha NP; Vidya Jackson The [place] [address] Patient Name: SHREYA MARSHALL MRN: [facility]:[id number] date: 1990 Sex: F Assigned Patient Location: [facility] Current Patient Location: [facility] Accession/Order Number: [id number] Exam Date: 08/11/2024 12:18 Report Date: 08/11/2024 [...] Auguste M.D. 08/11/2024 12:20 PM Dictation Location: [place] [address] Electronically authenticated by: [id number] Y Date: 08/11/2024 12:20 Dictated By: Isatu Auguste M.D. Signed By: 08/11/24 1222 DD/ 1220 TD/TT: Pharmaceutical Sales Specialist: [facility] Radiology Study observation (narrative) [facility] US OB BPP W NON-STRESS Ordered By: Radiologist Radiology on 08-11-2024 [facility] Work Phone: US OB BPP W NON-STRESS on 08-04-2024 [place] [address] Ultrasound Report Signed Patient: SHREYA MARSHALL MR#: [id number] : 1990 Acct:[id number] Age/Sex: 33 / F ADM Date: 08/04/24 Loc: [facility] 250-[address]: Vidya Jackson Ordering Physician: Vidya Jackson Date of Service: 08/04/24 Procedure(s): US OB BPP w non-stress Accession Number(s): [id number] cc: Анна Ha NP; Vidya Jackson [address] [address] Patient Name: SHREYA MARSHALL MRN: [facility]:[id number] date: 1990 Sex: F Assigned Patient Location: [facility] Current Patient Location: [facility] Accession/Order Number: [id number] Exam Date: 08/04/2024 11:42 Report Date: 08/04/2024 [...] Auguste M.D. 08/04/2024 11:43 AM Dictation Location: [place] [address] Electronically authenticated by: [id number] Y Date: 08/04/2024 11:43 Dictated By: Isatu Auguste M.D. Signed By: 08/04/24 1146 DD/ 1143 TD/TT: Pharmaceutical Sales Specialist: [facility] Radiology, Radiologist, MD - 08/04/2024 [place] [address] Ultrasound Report Signed Patient: SHREYA MARSHALL MR#: [id number] : 1990 Acct:[id number] Age/Sex: 33 / F ADM Date: 08/04/24 Loc: [facility] 250-[address]: Vidya Jackson Ordering Physician: Vidya Jackson Date of Service: 08/04/24 Procedure(s): US OB BPP w non-stress Accession Number(s): [id number] cc: Анна Ha NP; Vidya Jackson [place] [address] Patient Name: SHREYA MARSHALL MRN: [id number] date: 1990 Sex: F Assigned Patient Location: [facility] Current Patient Location: [facility] Accession/Order Number: [id number] Exam Date: 08/04/2024 11:42 Report Date: 08/04/2024 [...] Auguste M.D. 08/04/2024 11:43 AM Dictation Location: [place] [address] Electronically authenticated by: [id number] Y Date: 08/04/2024 11:43 Dictated By: Isatu Auguste M.D. Signed By: 08/04/24 1146 DD/ 1143 TD/TT: Pharmaceutical Sales Specialist: [facility] Radiology Study observation (narrative) [facility] OB BPP W NON-STRESS Ordered By: Radiologist Radiology on 08-04-2024 [facility] Work Phone: Urinalysis macro (dipstick) panel (U)on 08-04-2024 Bilirubin, UA Negative Negative - 4(70) +++ mg/dL [facility] Blood, UA Positive Negative - 50 Richy/mcL [facility] Comment on above: trace-intact Clarity, UA Clear [facility] Color, UA Yellow [facility] Glucose, UA Negative Negative - 1999(110) ++++ mg/dL [facility] Interpretation and review of laboratory results Abnormal [facility] Ketones, UA Negative Negative - 160(16) ++++ mg/dL [facility] Leukocytes, UA Negative Negative - 500+++ Tano/mcL [facility] Nitrite, UA Negative Negative - Positive [facility] pH, UA 7 5 - 9 [facility] Protein, UA Negative Negative - 1999(20) ++++ mg/dL [facility] Spec Grav, UA 1.01 1 - 1.03 [facility] Urobilinogen, UA 0.2 0.2 - 12 mg/dL [facility] US OB GROWTHon 07-28-2024 [place] [address] Ultrasound Report Signed Patient: SHREYA MARSHALL MR#: [id number] : 1990 Acct:[id number] Age/Sex: 33 / F ADM Date: 07/28/24 Loc: US Attending Dr: Slava Castro D.O. Ordering Physician: Slava Castro D.O. Date of Service: 07/28/24 Procedure(s): US OB growth Accession Number(s): [id number] cc: Анна Ha SENIOR INFRASTRUCTURE ARCHITECT; Slava Castro D.O. [place] [address] Patient Name: SHREYA MARSHALL MRN: [id number] date: 1990 Sex: F Assigned Patient Location: [place] Current Patient Location: [place] Accession/Order Number: [id number] Exam Date: 07/28/2024 10:44 Report Date: 07/28/2024 [...] Auguste M.D. 07/28/2024 10:48 AM Dictation Location: [place] [address] Electronically authenticated by: [id number] Y Date: 07/28/2024 10:48 Dictated By: Isatu Auguste M.D. Signed By: 07/28/24 1051 DD/ 1048 TD/TT: Pharmaceutical Sales Specialist: [facility] Radiology, Radiologist, MD - 07/28/2024 [place] [address] Ultrasound Report Signed Patient: SHREYA MARSHALL MR#: [id number] : 1990 Acct:[id number] Age/Sex: 33 / F ADM Date: 07/28/24 Loc: US Attending Dr: Slava Castro D.O. Ordering Physician: Slava Castro D.O. Date of Service: 07/28/24 Procedure(s): US OB growth Accession Number(s): [id number] cc: Анна Ha SENIOR INFRASTRUCTURE ARCHITECT; Slava Castro D.O. [place] [id number] Patient Name: SHREYA MARSHALL MRN: [facility]:[id number] date: 1990 Sex: F Assigned Patient Location: US Current Patient Location: [place] Accession/Order Number: [id number] Exam Date: 07/28/2024 10:44 Report Date: 07/28/2024 [...] Auguste M.D. 07/28/2024 10:48 AM Dictation Location: [place] [address] Electronically authenticated by: [id number] Y Date: 07/28/2024 10:48 Dictated By: Isatu Auguste M.D. Signed By: 07/28/24 1051 DD/ 1048 TD/TT: Pharmaceutical Sales Specialist: [facility] Radiology Study observation (narrative) [facility] OB GROWTHOrdered By: Tatiana ologist Radiology on 07-28-2024 [facility] Work Phone: GLUCOSE TOLERANCE 3 HOURon 0 07-23-2024 GLUCOSE TOLERANCE 3 HOUR High mg/dL [facility] Comment on above: GLU FAST 97H (<95) C ol: 07/23/24 0909 GLU 1HR 151 (<180) Col: 07/23/24 1013 GLU 2HR 151 (<155) Col: 07/23/24 1113 GLU 3HR 123 (<140) Col: 07/23/24 1213 Interpretation and review of laboratory results Abnormal [facility] US OB FOLLOW UP TRANSABDOMIN AL APPROACHon [...] II, MD, PHD at 07-Jul-2024 10:00:26 AM [facility] Normal Not Available Comment on above: Order Comment: US OB SCAN FOR GROWTH Estimated Date of Delivery: 09/24/24 Gestational Age as of 06/16/2024: 25w5d Urinalysis macro (dipstick) panel (U)on 07-06-2024 Bilirubin, UA Negative Negative - 4(70) +++ mg/dL [facility] Blood, UA Negative Negative - 50 Richy/mcL [facility] Clarity, UA Clear [facility] Color, UA Yellow [facility] Glucose, UA Negative Negative - 2000(110) ++++ mg/dL [facility] Interpretation and review of laboratory results Normal [facility] Ketones, UA Negative Negative - 160(16) ++++ mg/dL [facility] Leukocytes, UA Negative Negative - 500+++ Tano/mcL [facility] Nitrite, UA Negative Negative - Positive [facility] pH, UA 7 5 - 9 [facility] Protein, UA Negative Negative - 2000(20) ++++ mg/dL [facility] Spec Grav, UA 1.015 1 - 1.03 [facility] Urobilinogen, UA 0.2 0.2 - 12 mg/dL [facility] ALL CBC WITH AUTO DIFFon BASOPHILS ABSOLUTE AUTO 0 [facility] Basophils/100 WBC (Bld) 0.3 % 0.2 - 2.0 % [facility] Eosinophils/100 WBC (Bld) 0.3 % Low 0.9 - 7.0 % [facility] Erythrocyte distribution width (RBC) [Ratio] 12.9 % 11.0 - 15.0 % [facility] Hematocrit (Bld) [Volume fraction] 35.5 % Low 36.0 - 48.0 % [facility] Hemoglobin (Bld) [Mass/Vol] 11.6 g/dL Low 12.0 - 16.0 g/dL [facility] IMMATURE GRANULOCYTES ABS AUTO 0.03 [facility] Immature granulocytes/100 WBC (Bld) 0.4 % 0.0 - 0.5 % [facility] Interpretation and review of laboratory results Abnormal [facility] LYMPHOCYTES ABSOLUTE AUTO 1.7 [facility] Lymphocytes/100 WBC (Bld) 22.3 % 20.5 - 60.0 % [facility] MCH (RBC) [Entitic mass] 30.7 pg 26.7 - 34.0 pg [facility] MCHC (RBC) [Mass/Vol] 32.7 g/dL 29.9 - 35.2 g/dL [facility] MCV (RBC) [Entitic vol] 93.9 fL 81.0 - 99.0 fL [facility] MONOCYTES ABSOLUTE AUTO 0.4 [facility] Monocytes/100 WBC (Bld) 5.5 % 1.7 - 12.0 % [facility] NEUTROPHILS ABSOLUTE AUTO 5.3 [facility] Neutrophils/100 WBC (Bld) 71.2 % 43.0 - 75.0 % [facility] Platelet mean volume (Bld) [Entitic vol] 9.6 fL 9.5 - 13.5 fL [facility] TBH EO # 0 [facility] TB PLT 218 [facility] RBC 3.78 Low [facility] WBC 7.4 [facility] RECURRENT VAGINITIS (HTRX)on 06-17-2024 ATOPOBIUM VAGINAE 0 [facility] ATOPOBIUM VAGINAE Not detected [facility] BVAB 2,3 (BACTERIAL VAGINOSIS ASSOCIATED BACTERIA 2, 3); MOBILUNCUS SPP 0 [facility] BVAB 2,3 (BACTERIAL VAGINOSIS ASSOCIATED BACTERIA 2, 3); MOBILUNCUS SPP Not detected [facility] RANJANA ALBICANS, PARAPSILOSIS, TROPICALIS 0 [facility] RANJANA ALBICANS, PARAPSILOSIS, TROPICALIS Not detected [facility] RANJANA GLABRATA 0 [facility] RANJANA GLABRATA Not detected [facility] RANJANA KRUSEI 0 [facility] RANJANA KRUSEI Not detected [facility] CHLAMYDIA TRACHOMATIS 0 [facility] CHLAMYDIA TRACHOMATIS Not detected [facility] GARDNERELLA VAGINALIS 0 [facility] GARDNERELLA VAGINALIS Not detected [facility] MEGASPHAERA (TYPES 1, 2) 0 [facility] MEGASPHAERA (TYPES 1, 2) Not detected [facility] MYCOPLASMA GENITALIUM 0 [facility] MYCOPLASMA GENITALIUM Not detected [facility] NEISSERIA GONORRHOEAE 0 [facility] NEISSERIA GONORRHOEAE Not detected [facility] TRICHOMONAS VAGINALIS 0 [facility] TRICHOMONAS VAGINALIS Not detected N [facility] Urinalysis macro (dipstick) panel (U)on 06-16-2024 Bilirubin, UA Negative Negative - 4(70) +++ mg/dL [facility] Blood, UA Negative Negative - 50 Richy/mcL [facility] Clarity, UA Clear [facility] Color, UA Yellow [facility] Glucose, UA Negative Negative - 1999(110) ++++ mg/dL [facility] Interpretation and review of laboratory results Normal [facility] Ketones, UA Negative Negative - 160(16) ++++ mg/dL [facility] Leukocytes, UA Negative Negative - 500+++ Tano/mcL [facility] Nitrite, UA Negative Negative - Positive [facility] pH, UA 6 5 - 9 [facility] Protein, UA Negative Negative - 1999(20) ++++ mg/dL [facility] Spec Grav, UA 1.01 1 - 1.03 [facility] Urobilinogen, UA 0.2 0.2 - 12 mg/dL [facility] US OB 14+ WEEKS [...] II, MD, PHD at 11-May-2024 12:36:27 AM [facility] Normal Not Available Comment on above: Order Comment: US OB ANATOMY SINGLE W US OB CERVICAL LENGTH Estimated Date of Delivery: 09/24/24 Gestational Age as of 04/07/2024: 15w5d GLUCOSE 1 HOURon 02-15-2025 Glucose [Mass/Vol] 124 mg/dL NINF - 13 0 mg/dL [facility]inalysis macro (dipstick) panel (U)on 04-07-2024 Bilirubin, UA Negative Negative - 4(70) +++ mg/dL [facility] Blood, UA Positive Negative - 50 Richy/mcL [facility] Comment on above: trace Clarity, UA Clear [facility] Color, UA Yellow [facility] Glucose, UA Negative Negative - 1999(110) ++++ mg/dL [facility] Interpretation and review of laboratory results Abnormal [facility] Ketones, UA Positive Negative - 160(16) ++++ mg/dL [facility] Comment on above: 15 Leukocytes, UA Negative Negative - 500+++ Tano/mcL [facility] Nitrite, UA Negative Negative - Positive [facility] pH, UA 7 5 - 9 [facility] Protein, UA Negative Negative - 1999(20) ++++ mg/dL [facility] Spec Grav, UA 1.02 1 - 1.03 [facility] Urobilinogen, UA 1.0 0.2 - 12 mg/dL [facility] Urinalysis macro (dipstick) panel (U)on 03-10-2024 Bilirubin, UA Negative Negative - 4(70) +++ mg/dL [facility] Blood, UA Positive Negative - 50 Richy/mcL [facility] Comment on above: trace-intact Clarity, UA Clear [facility] Color, UA Yellow [facility] Glucose, UA Negative Negative - 1999(110) ++++ mg/dL [facility] Interpretation and review of laboratory results Abnormal [facility] Ketones, UA Negative Negative - 160(16) ++++ mg/dL [facility] Leukocytes, UA Negative Negative - 500+++ Tano/mcL [facility] Nitrite, UA Negative Negative - Positive [facility] pH, UA 6.5 5 - 9 [facility] Protein, UA Negative Negative - 1999(20) ++++ mg/dL [facility] Spec Grav, UA 1.01 1 - 1.03 [facility] Urobilinogen, UA 0.2 0.2 - 12 mg/dL [facility] BOX TESTon 02-27-2024 BOX TEST SENT OUT [facility] BOX1 [facility] BOX2 02/27/24 [facility] Urine Cultureon 02-27-2024 Bacteria identified Cx Nom (U) No Growth 2 Days PERFORMED BY: [facility] [address] [place] [address] PATHOLOGIST HOUSE SHORER SHEREE MCCARTHY M.D. Normal [facility] Comment on above: Performed By: #### C UU #### [address] HCG ( test) Ql (U)o n 02-11-2024 Interpretation and review of laboratory results Abnormal [facility] Preg Test, Ur Positive Negative [facility] Urinalysis macro (dipstick) panel (U)on 02-11-2024 Bilirubin, UA Positive Negative - 4(70) +++ mg/dL [facility] Comment on above: small Blood, UA Positive Negative - 50 Richy/mcL [facility] Comment on above: trace-lysed Clarity, UA Clear [facility] Color, UA Yellow [facility] Glucose, UA Negative Negative - 2000(110) ++++ mg/dL [facility] Interpretation and review of laboratory results Abnormal [facility] Ketones, UA Positive Negative - 160(16) ++++ mg/dL [facility] Comment on above: trace Leukocytes, UA Trace Negative - 500+++ Tano/mcL [facility] Nitrite, UA Negative Negative - Positive [facility] pH, UA 6 5 - 9 [facility] Protein, UA Positive Negative - 2000(20) ++++ mg/dL [facility] Comment on above: 100 Spec Grav, UA 1.03 1 - 1.03 [facility] Urobilinogen, UA 0.2 0.2 - 12 mg/dL [facility] TBH PREG QUANT HCGon 024 HCG QUANTITATIVE 09126 mIU/mL [facility] Comment on above: 5-50 0.2-1 WEEK 50-500 1-2 WEEKS 100-5,000 2-3 WEEKS 500-10,000 3-4 WEEKS 1,000-50,000 4-5 WEEKS 10,000-100,000 5-6 WEEKS 15,000-200,000 6-8 WEEKS 10,000-100,000 2-3 [facility] TB PREG QUANT HCGon 024 HCG QUANTITATIVE 48227 mIU/mL [facility] Comment on above: 5-50 0.2-1 WEEK 50-500 1-2 WEEKS 100-5,000 2-3 WEEKS 500-10,000 3-4 WEEKS 1,000-50,000 4-5 WEEKS 10,000-100,000 5-6 WEEKS 15,000-200,000 6-8 WEEKS 10,000-100,000 2-3 MONTHS [facility] PREG QUANT HCGon 024 HCG QUANTITATIVE 16370 mIU/mL [facility] Comment on above: 5-50 0.2-1 WEEK 50-500 1-2 WEEKS 100-5,000 2-3 WEEKS 500-10,000 3-4 WEEKS 1,000-50,000 4-5 WEEKS 10,000-100,000 5-6 WEEKS 15,000-200,000 6-8 WEEKS 10,000-100,000 2-3 MONTHS [facility] PREG QUANT HCGon 024 HCG QUANTITATIVE 78791 mIU/mL [facility] Comment on above: 5-50 0.2-1 WEEK 50-500 1-2 WEEKS 100-5,000 2-3 WEEKS 500-10,000 3-4 WEEKS 1,000-50,000 4-5 WEEKS 10,000-100,000 5-6 WEEKS 15,000-200,000 6-8 WEEKS 10,000-100,000 2-3 MONTHS [facility] PREG QUANT HCGon 024 HCG QUANTITATIVE 8911 mIU/mL [facility] Comment on above: 5-50 0.2-1 WEEK 50-500 1-2 WEEKS 100-5,000 2-3 WEEKS 500-10,000 3-4 WEEKS 1,000-50,000 4-5 WEEKS 10,000-100,000 5-6 WEEKS 15,000-200,000 6-8 WEEKS 10,000-100,000 2-3 MONTHS [facility] PREG QUANT HCGon 024 HCG QUANTITATIVE 4641 mIU/mL [facility] Comment on above: 5-50 0.2-1 WEEK 50-500 1-2 WEEKS 100-5,000 2-3 WEEKS 500-10,000 3-4 WEEKS 1,000-50,000 4-5 WEEKS 10,000-100,000 5-6 WEEKS 15,000-200,000 6-8 WEEKS 10,000-100,000 2-3 MONTHS [facility] PREG QUANT HCGon 01-20-2 024 HCG QUANTITATIVE 2241 mIU/mL [facility] Comment on above: 5-50 0.2-1 WEEK 50-500 1-2 WEEKS 100-5,000 2-3 WEEKS 500-10,000 3-4 WEEKS 1,000-50,000 4-5 WEEKS 10,000-100,000 5-6 WEEKS 15,000-200,000 6-8 WEEKS 10,000-100,000 2-3 MONTHS [facility] PREG QUANT HCGon 01-18-2 024 HCG QUANTITATIVE 884 mIU/mL [facility] Comment on above: 5-50 0.2-1 WEEK 50-500 1-2 WEEKS 100-5,000 2-3 WEEKS 500-10,000 3-4 WEEKS 1,000-50,000 4-5 WEEKS 10,000-100,000 5-6 WEEKS 15,000-200,000 6-8 WEEKS 10,000-100,000 2-3 MONTHS [facility] IGP,APTIMA HPV,AGE GDLNon AGE GDLN ACOG TESTING Note . [facility] Comment on above: TESTS RESULT FLAG UN ITS REF RANGE LAB Clinician Provided Cytology Information Source.............Cervix;Endocervix No. of containers..01 ThinPrep Vial Age Algo ACOG Sylvia... FLAG LEGEND: L-Low Normal,H-High Normal,LL-Alert Low,HH-Alert High <-Panic Low,>-Panic High,A-Abnormal,AA-Critical Abnormal Performed at: 01 =[address] [address] Amber Tilley MD, HPV APTIMA Negative Negative [facility] Comment on above: This nucleic acid am plification test detects fourteen high- risk HPV types (16,18,31,33,35,39,45,51,52,56,58,59,66,68) without differentiation. Performed at: =[address] [id number] Optometry Professor: Amber Tilley MD, Phone: [phone] Performed at: [address] [id number] Optometry Professor: Amber Tilley MD, Phone: [phone] IGP, APTIMA HPV, RFX 16/18,45 Note . [facility] Comment on above: TESTS RESULT FLAG UN ITS REF RANGE LAB DIAGNOSIS: 02 NEGATIVE FOR INTRAEPITHELIAL LESION OR MALIGNANCY. REACTIVE CELLULAR CHANGES AND/OR REPAIR ARE PRESENT. Specimen adequacy: 02 Satisfactory for evaluation. Endocervical and/or squamous metaplastic cells (endocervical component) are present. Performed by: 02 Peggy Gandhi, Lumber Stacker Operator (ASCP) Electronically si... 02 Divya Hoffman [...] Low,>-Panic High,A-Abnormal,AA-Critical Abnormal Performed at: [address] [address] Amber Tilley MD, BRUSH-SPATULA CERVIX ENDOCERVIX [facility] Cytology Cervical or vaginal smear or scraping studyon 12-10-2023 [facility] HCG ( test) Ql (U)o n 12-10-2023 Interpretation and review of laboratory results Normal [facility] Preg Test, Ur Negative [facility] [place] 06-30-2023 L Specimen: [id number] Received: 07/01/23 Status: WEN [place] Num: [id number] Spec Type: Surgical Subm Dr: Slava Castro Tissues: A Products of Conception - Spontaneous or Missed (POC) Procedures: HE/3, Gross/Micro L4 Age/ Patient Sex Location Account Attending Physician Shreya [place] 32/F LABELL [id number] Slava Castro SPEC NUM: [id number] RECD: 07/01/23 STATUS: WEN [place] NUM: [id number] [place]: 06/30/[address]: Slava Castro ENTERED: [...] spongy harman tissue consistent with villous tissue. Inner Tube Inserter sections are submitted in A1?A3 to include the villous tissue in A1. Clinical history: Missed TW -------- Specimen: [id number] Received: 07/01/23 Status: WEN [place] Num: [id number] Spec Type: Surgical Subm Dr: Slava Castro Tissues: A Products of Conception - Spontaneous or Missed (POC) Procedures: , Gross/Micro L4 -------- Patient: Shreya [place] [id number] (Continued) -------- Specimen: [id number] Received: 07/01/23 (Continued) Signed (signature on file) Shen Virgen MD 07/02/23 1859 -------- Specimen: [id number] Received: 07/01/23 Status: WEN [place] Num: [id number] Spec Type: Surgical Subm Dr: Slava Castro Tissues: A Products of Conception - Spontaneous or Missed (POC) Procedures: HE/3, Meghan/Maksim L4 -------- Patient: Shreya [place] [id number] (Continued) -------- Specimen: [id number] Received: 07/01/23 (Continued) CPT Codes 95405 -------- -------- Specimen: [id number] Received: 07/01/230196 Status: WEN [place] Num: [id number] Spec Type: Surgical Subm Dr: Slava Castro Tissues: A Products of Conception - Spontaneous or Missed (POC) Procedures: Meghan BLAKE/Maksim L4 -------- Patient: Shreya [place] [id number] (Continued) -------- Signed (signature on file) Shen Virgen MD 07/02/23 6102 Normal [facility] Covid-19 PCR (CVDTBH)on 01-25 SARS-CoV-2 [...] for this test is supported by the [place] of Health and Human Service's (HHS's) declaration [...] SARS-CoV-2. Performed By: #### C VDTBH #### [facility] [address] [place] [address] Dr. Luis Virgen INFLUENZA A AND B AGon 02-20 [facility] SEE BELOW Normal [facility] Comment on above: Result Comment: Nega tive for Flu B protein antigen. Infection due to Flu B cannot be ruled out. Flu B antigen in the sample may be below the detection limit of the test. Performed By: #### I NFLUAB #### [facility] [address] [place] [address] Dr. Luis Virgen INFLUENZA A AG Positive Abnormal NEGATIVE SEE COMMENT [facility] Comment on above: Performed By: #### I NFLUAB #### [facility] [address] [place] [address] Dr. Luis Virgen INFLUENZA B AG Negative Normal NEGATIVE SEE COMMENT [facility] Comment on above: Performed By: #### I NFLUAB #### [facility] [address] [place] [address] Dr. Luis Virgen XR CHEST 1 Von 02-20-2022 XR CHEST 1 V EXAM: CHEST 1 VIEW HISTORY: COUGH TECHNIQUE: Chest, one view. COMPARISON: None. FINDINGS: Lungs are clear. No focal consolidation, pleural effusion, or pneumothorax. Pulmonary vasculature is within normal limits. Cardiomediastinal silhouette is normal. IMPRESSION: 1. No acute cardiopulmonary disease. Electronically authenticated by: PHOEBE ALFARO Date: 2022-02-20 17:46 Normal [facility] PAP ACOG PANEL 2: 30 to 65on 11-13-2021 . . Normal [facility] Comment on above: Result Comment: Perf ormed at: WB Performed By: #### [id number] #### [facility] [address] [place] [address] [address] Luis Virgen Age Gdln ACOG Testing 30-65 [facility] Comment on above: Performed By: #### [id number] #### [facility] [address] [place] [address] [address] Luis Virgen DIAGNOSIS: Comment Normal [facility] Comment on above: Result Comment: NEGA TIVE FOR INTRAEPITHELIAL LESION OR MALIGNANCY. Performed at: WB Performed By: #### [id number] #### [facility] [address] [place] [address] [address] Luis Virgen HPV Aptima Negative Normal Negative [facility] Comment on above: Result Comment: This nucleic acid amplification test detects fourteen high-risk HPV types (16,18,31,33,35,39,45,51,52,56,58,59,66,68) without differentiation. Performed at: =G Performed By: #### [id number] #### [facility] [address] [place] [address] [address] Luis Virgen Methodology: Comment Normal [facility] Comment on above: Result Comment: This liquid based ThinPrep(R) pap test was screened with the use of an image guided system. Performed at: WB Performed By: #### [id number] #### [facility] [address] [address] [address] Luis Virgen Note: Comment Normal [facility] Comment on above: Result Comment: The Pap smear is a screening test designed to aid in the detection of premalignant and malignant conditions of the uterine cervix. It is not a diagnostic procedure and should not be used as the sole means of detecting cervical cancer. Both false-positive and false-negative reports do occur. . Performed at: WB Performed By: #### [id number] #### [facility] [address] [place] [address] Dr. Luis Virgen Performed by: Comment Normal [facility] Comment on above: Result Comment: Maureen Del Cid Lumber Stacker Operator (ASCP) Performed at: WB Performed By: #### [id number] #### [facility] [address] [place] [address] Dr. Lius Virgen Specimen adequacy: Comment Normal [facility] Comment on above: Result Comment: Sati sfactory for evaluation. Endocervical and/or squamous metaplastic cells (endocervical component) are present. Performed at: WB Performed By: #### [id number] #### [facility] [address] [place] [address] Dr. Luis Virgen URon 08-20-2021 , QUAL Negative Normal NEGATIVE [facility] Comment on above: Performed By: #### P REGU #### [facility] [address] [place] [address] Dr. Luis Virgen CBC AUTO DIFFon 08-06-2021 BASO # 0.0 103/ul Normal 0.0-0.1 [facility] Comment on above: Performed By: #### C BC #### [facility] [address] [place] [address] Dr. Luis Virgen Basophils/100 WBC (Bld) 0.3 % Normal 0.2-2.0 [facility] Comment on above: Performed By: #### C BC #### [facility] [address] [place] [address] Dr. Luis Virgen EO # 0.0 103/ul Normal 0.0-0.7 [facility] Comment on above: Performed By: #### C BC #### [facility] [address] [place] [address] Dr. Luis Virgen Eosinophils/100 WBC (Bld) 0.3 % Critically low 0.9-7.0 [facility] Comment on above: Performed By: #### C BC #### [facility] [address] [place] [address] Dr. Luis Virgen Erythrocyte distribution width (RBC) [Ratio] 12.6 % Normal 11.0-15.0 [facility] Comment on above: Performed By: #### C BC #### [facility] [address] [place] [address] Dr. Luis Virgen Hematocrit (Bld) [Volume fraction] 41.5 % Normal 36.0-48.0 [facility] Comment on above: Performed By: #### C BC #### [facility] [address] [place] [address] Dr. Luis Virgen Hemoglobin (Bld) [Mass/Vol] 13.5 g/dL Normal 12.0-16.0 [facility] Comment on above: Performed By: #### C BC #### [facility] [address] [place] [address] Dr. Luis Virgen IG # 0.03 10e3/ul Normal 0.00-0.03 [facility] Comment on above: Performed By: #### C BC #### [facility] [address] [place] [address] Dr. Luis Virgen IG % 0.4 % Normal 0.0-0.5 [facility] Comment on above: Performed By: #### C BC #### [facility] [address] [place] [address] Dr. Luis Virgen LYMPH # 2.4 103/ul Normal 1.2-3.8 [facility] Comment on above: Performed By: #### C BC #### [facility] [address] [place] [address] Dr. Luis Virgen Lymphocytes/100 WBC (Bld) 31.8 % Normal 20.5-60.0 [facility] Comment on above: Performed By: #### C BC #### [facility] [address] [place] [address] Dr. Luis Virgen MANUAL DIFF REQ NO Normal [facility] Comment on above: Performed By: #### C BC #### [facility] [address] [place] [address] Dr. Luis Virgen MCH (RBC) [Entitic mass] 30.5 pg Normal 26.7-34.0 [facility] Comment on above: Performed By: #### C BC #### [facility] [address] [place] [address] Dr. Luis Virgen MCHC (RBC) [Mass/Vol] 32.5 g/dL Normal 29.9-35.2 [facility] Comment on above: Performed By: #### C BC #### [facility] [address] [place] [address] Dr. Luis Virgen MCV (RBC) [Entitic vol] 93.9 fL Normal 81.0-99.0 [facility] Comment on above: Performed By: #### C BC #### [facility] [address] [place] [address] Dr. Luis Virgen MONO # 0.6 103/ul Normal 0.3-0.8 [facility] Comment on above: Performed By: #### C BC #### [facility] [address] [place] [address] Dr. Luis Virgen Monocytes/100 WBC (Bld) 7.4 % Normal 1.7-12.0 [facility] Comment on above: Performed By: #### C BC #### [facility] [address] [place] [address] Dr. Luis Virgen NEUT # 4.5 103/ul Normal 1.4-6.5 [facility] Comment on above: Performed By: #### C BC #### [facility] [address] [place] [address] Dr. Luis Virgen Neutrophils/100 WBC (Bld) 59.8 % Normal 43.0-75.0 [facility] Comment on above: Performed By: #### C BC #### [facility] [address] [place] [address] Dr. Luis Virgen Platelet mean volume (Bld) [Entitic vol] 10.0 fL Normal 9.5-13.5 [facility] Comment on above: Performed By: #### C BC #### [facility] [address] [place] [address] Dr. Luis Virgen PLT 337 103/ul Normal 150-450 [facility] Comment on above: Performed By: #### C BC #### [facility] [address] [address] [address] Luis Virgen RBC 4.42 106/ul Normal 4.20-5.40 [facility] Comment on above: Performed By: #### C BC #### [facility] [address] [place] [address] Dr. Luis Virgen WBC 7.6 103/ul Normal 4.0-11.0 [facility] Comment on above: Performed By: #### C BC #### [facility] [address] [place] [address] Dr. Luis Virgen FREE T4on 08-06-2021 Free T4 [Mass/Vol] 0.91 ng/dL Normal 0.76-1.46 [facility] Comment on above: Performed By: #### F T4 #### [facility] [address] [place] [address] Dr. Luis Virgen LIPID PROFILEon 08-06-2021 CHOL-HDL RATIO NORM SEE BELOW Normal [facility] Comment on above: Result Comment: 3.3 - 4.4 LOW RISK 4.4 - 7.1 AVERAGE RISK 7.1 - 11.0 MODERATE RISK >11.0 HIGH RISK Performed By: #### C MP, TSH, LIPID #### [facility] [address] [place] [address] Dr. Luis Virgen Cholesterol [Mass/Vol] 154 mg/dL Normal <=200 [facility] Comment on above: Performed By: #### C MP, TSH, LIPID #### [facility] [address] [place] [address] Dr. Luis Virgen Cholesterol in HDL [Mass/Vol] 35 mg/dL Critically low 40-60 [facility] Comment on above: Performed By: #### C MP, TSH, LIPID #### [facility] [address] [address] [address] Luis Virgen Cholesterol in LDL [Mass/Vol] 80.8 mg/dL Normal [facility] Comment on above: Performed By: #### C MP, TSH, LIPID #### [facility] [address] [address] [address] Luis Virgen Cholesterol.total/Chol esterol in HDL [Mass ratio] 4.4 {ratio} Normal [facility] Comment on above: Performed By: #### C MP, TSH, LIPID #### [facility] [address] [address] [address] Luis Virgen HDL NORMAL > or = 60 mg/dl - LO W CARDIOVASCULAR RISK <40 mg/dl - HIGH CARDIOVASCULAR RISK Normal [facility] Comment on above: Performed By: #### C MP, TSH, LIPID #### [facility] [address] [place] [address] Dr. Luis Virgen LDL CALC NORMAL SEE BELOW Normal [facility] Comment on above: Result Comment: <100 mg/dl OPTIMAL 100 - 129 mg/dl NEAR OR ABOVE OPTIMAL 130 - 159 mg/dl BORDERLINE HIGH 160 - 189 mg/dl HIGH >190 mg/dl VERY HIGH Performed By: #### C MP, TSH, LIPID #### [facility] [address] [address] [address] Luis Virgen Triglyceride [Mass/Vol] 191 mg/dL Critically high <=150 [facility] Comment on above: Performed By: #### C MP, TSH, LIPID #### [facility] [address] [address] [address] Luis Virgen VLDL CALC 38.2 mg/dL Normal [facility] Comment on above: Performed By: #### C MP, TSH, LIPID #### [facility] [address] [place] [address] Dr. Luis Virgen PROF 14(COMP METB)on 022 Albumin [Mass/Vol] 4.1 g/dL Normal 3.4-5.0 [facility] Comment on above: Performed By: #### C MP, TSH, LIPID #### [facility] [address] [address] [address] Luis Virgen Albumin/Globulin [Mass ratio] 1.2 {ratio} Normal [facility] Comment on above: Performed By: #### C MP, TSH, LIPID #### [facility] [address] [address] [address] Luis Virgen ALP [Catalytic activity/Vol] 73 U/L Normal 46-116 [facility] Comment on above: Performed By: #### C MP, TSH, LIPID #### [facility] [address] [address] [address] Luis Virgen ALT [Catalytic activity/Vol] 24 U/L Normal 14-59 [facility] Comment on above: Performed By: #### C MP, TSH, LIPID #### [facility] [address] [place] [address] Dr. Luis Virgen Anion gap [Moles/Vol] 13.2 mmol/L Normal [facility] Comment on above: Performed By: #### C MP, TSH, LIPID #### [facility] [address] [place] [address] Dr. Luis Virgen AST [Catalytic activity/Vol] 11 U/L Critically low 15-37 [facility] Comment on above: Performed By: #### C MP, TSH, LIPID #### [facility] [address] [place] [address] Dr. Luis Virgen Bilirubin [Mass/Vol] 0.8 mg/dL Normal 0.2-1.0 [facility] Comment on above: Performed By: #### C MP, TSH, LIPID #### [facility] [address] [place] [address] Dr. Luis Virgen Calcium [Mass/Vol] 8.9 mg/dL Normal 8.5-10.1 [facility] Comment on above: Performed By: #### C MP, TSH, LIPID #### [facility] [address] [place] [address] Dr. Luis Virgen Chloride [Moles/Vol] 103 mmol/L Normal 98-107 [facility] Comment on above: Performed By: #### C MP, TSH, LIPID #### [facility] [address] [address] [address] Luis Virgen CO2 [Moles/Vol] 27.5 mmol/L Normal 21.0-32.0 [facility] Comment on above: Performed By: #### C MP, TSH, LIPID #### [facility] [address] [address] [address] Luis Virgen Creatinine [Mass/Vol] 0.71 mg/dL Normal 0.55-1.02 [facility] Comment on above: Performed By: #### C MP, TSH, LIPID #### [facility] [address] [address] [address] Luis Virgen EGFR-AF IRANIAN >60 Normal >=60 [facility] Comment on above: Performed By: #### C MP, TSH, LIPID #### [facility] [address] [address] [address] Luis Virgen EGFR-NON AF IRANIAN >60 Normal >=60 [facility] Comment on above: Performed By: #### C MP, TSH, LIPID #### [facility] [address] [address] [address] Luis Virgen Globulin (S) [Mass/Vol] 3.5 g/dL Normal [facility] Comment on above: Performed By: #### C MP, TSH, LIPID #### [facility] [address] [address] [address] Luis Virgen Glucose [Mass/Vol] 101 mg/dL Normal 74-[address] [facility] Comment on above: Performed By: #### C MP, TSH, LIPID #### [facility] [address] [address] [address] Luis Virgen Potassium [Moles/Vol] 4.7 mmol/L Normal 3.5-5.1 [facility] Comment on above: Performed By: #### C MP, TSH, LIPID #### [facility] [address] [address] [address] Luis Virgen Protein [Mass/Vol] 7.6 g/dL Normal 6.4-8.[address] [facility] Comment on above: Performed By: #### C MP, TSH, LIPID #### [facility] [address] [place] [address] Dr. Luis Virgen Sodium [Moles/Vol] 139 mmol/L Normal 136-145 [facility] Comment on above: Performed By: #### C MP, TSH, LIPID #### [facility] [address] [place] [address] Dr. Luis Virgen Urea nitrogen [Mass/Vol] 9.0 mg/dL Normal 7.0-18.0 [facility] Comment on above: Performed By: #### C MP, TSH, LIPID #### [facility] [address] [place] [address] Dr. Luis Virgen Urea nitrogen/Creatinine [Mass ratio] 12.7 mg/mg Normal [facility] Comment on above: Performed By: #### C MP, TSH, LIPID #### [facility] [address] [place] [address] Dr. Luis Virgen TSHon 08-06-2021 TSH 0.924 uIU/mL Normal 0.358-3.740 [facility] Comment on above: Performed By: #### C MP, TSH, LIPID #### [facility] [address] [place] [address] Dr. Luis Virgen TSH RANGE SEE BELOW Normal [facility] Comment on above: Result Comment: <0.3 4 UIU/ml HYPERTHYROID 0.34-5.60 UIU/ml EUTHYROID >5.60 UIU/ml HYPOTHYROID Performed By: #### C MP, TSH, LIPID #### [facility] [address] [place] [address] Dr. Luis Virgen Vital Signs Date Time Vital Sign Value Performing Clinician Faci lity 09-07-2024 13:02-0400 Body mass index (BMI) [Ratio] 33.78 kg/m2 Анна Ha SENIOR INFRASTRUCTURE ARCHITECT Work Phone: [facility] 09-07-2024 13:02-040 Body temperature 98.01 [degF] Анна Ha SENIOR INFRASTRUCTURE ARCHITECT Work Phone: [facility] 09-07-2024 13:02-0400 Body weight 81.1 kg Анна Ha SENIOR INFRASTRUCTURE ARCHITECT Work Phone: [facility] 09-07-2024 13:02-0400 Diastolic blood pressure 78 mm[Hg] Анна Nealz SENIOR INFRASTRUCTURE ARCHITECT Work Phone: [facility] 09-07-2024 13:02-0400 Heart rate 94 /min Аннаkinjal Nealz SENIOR INFRASTRUCTURE ARCHITECT Work Phone: [facility] 09-07-2024 13:02-0400 Respiratory rate 18 /min Аннаkinjal Ha SENIOR INFRASTRUCTURE ARCHITECT Work Phone: [facility] 09-07-2024 13:02-0400 SaO2% (BldA) [Mass fraction] 98 % Анна Ha SENIOR INFRASTRUCTURE ARCHITECT Work Phone: [facility] 09-07-2024 13:02-0400 Systolic blood pressure 110 mm[Hg] Анна Ha SENIOR INFRASTRUCTURE ARCHITECT Work Phone: [facility] 09-02-2024 10:47-0400 Body mass index (BMI) [Ratio] 33.6 kg/m2 Slava Gloria DO Work Phone: [facility] 09-02-2024 10:47-0400 Body weight 80.65 kg Slava Gloria DO Work Phone: [facility] 09-02-2024 10:47-0400 Diastolic blood pressure 70 mm[Hg] Slava Gloria DO Work Phone: [facility] 09-02-2024 10:47-0400 Systolic blood pressure 120 mm[Hg] Slava Gloria DO Work Phone: [facility] 08-18-2024 09:37-0400 Body mass index (BMI) [Ratio] 33.07 kg/m2 Cely Carver SENIOR INFRASTRUCTURE ARCHITECT Work Phone: [facility] 08-18-2024 09:37-0400 Body weight 79.38 kg Cely Carver SENIOR INFRASTRUCTURE ARCHITECT Work Phone: [facility] 08-18-2024 09:37-0400 Diastolic blood pressure 82 mm[Hg] Cely Carver SENIOR INFRASTRUCTURE ARCHITECT Work Phone: [facility] 08-18-2024 09:37-0400 Systolic blood pressure 116 mm[Hg] Cely Carver SENIOR INFRASTRUCTURE ARCHITECT Work Phone: [facility] 08-04-2024 14:31-0400 Body mass index (BMI) [Ratio] 32.95 kg/m2 Slava Gloria DO Work Phone: [facility] 08-04-2024 14:31-0400 Body weight 79.11 kg Slava Gloria DO Work Phone: [facility] 08-04-2024 14:31-0400 Diastolic blood pressure 76 mm[Hg] Slava Gloria DO Work Phone: [facility] 08-04-2024 14:31-0400 Systolic blood pressure 120 mm[Hg] Slava Gloria DO Work Phone: [facility] 07-21-2024 14:30-0400 Body mass index (BMI) [Ratio] 33.14 kg/m2 Vidya Jackson PA Work Phone: [facility] 07-21-2024 14:30-0400 Body weight 79.56 kg Vidya Coco PA Work Phone: [facility] 07-21-2024 14:30-0400 Diastolic blood pressure 74 mm[Hg] Vidya Coco PA Work Phone: [facility] 07-21-2024 14:30-0400 Systolic blood pressure 110 mm[Hg] Vidya Coco PA Work Phone: [facility] 07-06-2024 14:09-0400 Body mass index (BMI) [Ratio] 32.69 kg/m2 Slava Gloria DO Work Phone: [facility] 07-06-2024 14:09-0400 Body weight 78.47 kg Slava Gloria DO Work Phone: [facility] 07-06-2024 14:09-0400 Diastolic blood pressure 72 mm[Hg] Slava Gloria DO Work Phone: [facility] 07-06-2024 14:09-0400 Systolic blood pressure 118 mm[Hg] Slava Gloria DO Work Phone: [facility] 06-16-2024 14:05-0400 Body mass index (BMI) [Ratio] 32.12 kg/m2 Cely Mehul SENIOR INFRASTRUCTURE ARCHITECT Work Phone: [facility] 06-16-2024 14:05-0400 Body weight 77.11 kg Cely Mehul SENIOR INFRASTRUCTURE ARCHITECT Work Phone: [facility] 06-16-2024 14:05-0400 Diastolic blood pressure 70 mm[Hg] Cely Mehul SENIOR INFRASTRUCTURE ARCHITECT Work Phone: [facility] 06-16-2024 14:05-0400 Systolic blood pressure 114 mm[Hg] Cely Mehul SENIOR INFRASTRUCTURE ARCHITECT Work Phone: [facility] 04-07-2024 15:02-0500 Body mass index (BMI) [Ratio] 30.8 kg/m2 Vidya Coco PA Work Phone: [facility] 04-07-2024 15:02-0500 Body weight 73.94 kg Vidya Coco PA Work Phone: [facility] 04-07-2024 15:02-0500 Diastolic blood pressure 62 mm[Hg] Vidya Cora PA Work Phone: [facility] 04-07-2024 15:02-0500 Systolic blood pressure 116 mm[Hg] Vidya Coco PA Work Phone: [facility] 03-10-2024 14:45-0500 Body mass index (BMI) [Ratio] 30.63 kg/m2 Slava Gloria DO Work Phone: [facility] 03-10-2024 14:45-0500 Body weight 73.54 kg Slava Gloria DO Work Phone: [facility] 03-10-2024 14:45-0500 Diastolic blood pressure 66 mm[Hg] Slava Gloria DO Work Phone: [facility] 03-10-2024 14:45-0500 Systolic blood pressure 110 mm[Hg] Slava Gloria DO Work Phone: [facility] 02-11-2024 10:34-0500 Body mass index (BMI) [Ratio] 30.69 kg/m2 Nom Nurse [facility] 02-11-2024 10:34-0500 Body weight 73.66 kg Nom Nurse [facility] 02-11-2024 10:34-0500 Diastolic blood pressure 77 mm[Hg] [facility] Nurse [facility] 02-11-2024 10:34-0500 Systolic blood pressure 110 mm[Hg] [facility] Nurse [facility] 12-10-2023 13:12-0400 Body mass index (BMI) [Ratio] 30.76 kg/m2 Slava Gloria DO Work Phone: [facility] 12-10-2023 13:12-0400 Body weight 73.85 kg Slava Gloria DO Work Phone: [facility] 12-10-2023 13:12-0400 Diastolic blood pressure 78 mm[Hg] Slava Gloria DO Work Phone: [facility] 12-10-2023 13:12-0400 Systolic blood pressure 116 mm[Hg] Slava Gloria DO Work Phone: [facility] Healthcare Encounters Encounter Date Encounter Type Care Provider Facility Start: 09-11-2024 End: 09-11-2024 Clinisync Result Encounter Generic External Data Provider [facility] External Department Unsolicited Start: 09-11-2024 End: 09-11-2024 Clinisync Result Encounter Generic External Data Provider [facility] External Department Unsolicited Start: 09-09-2024 End: 09-09-2024 Clinisync Result Encounter Generic External Data Provider [facility] External Department Unsolicited Start: 09-09-2024 End: 09-09-2024 Clinisync Result Encounter Generic External Data Provider [facility] External Department Unsolicited Start: 09-09-2024 End: 09-09-2024 ambulatory SLAVA GLORIA Not Available Start: 09-07-2024 End: 09-07-2024 Bamboo flowsheet Анна Nealange SENIOR INFRASTRUCTURE ARCHITECT Work Phone: [facility] Start: 09-07-2024 End: 09-07-2024 Bamboo flowsheet Анна Ha SENIOR INFRASTRUCTURE ARCHITECT Work Phone: [facility] Start: 09-07-2024 End: 09-07-2024 Patient encounter status Анна Ha SENIOR INFRASTRUCTURE ARCHITECT Work Phone: [facility] Work Phone: Start: 09-07-2024 End: 09-07-2024 Periodic preventive med est patient 18-39 yrs Анна Ha SENIOR INFRASTRUCTURE ARCHITECT Work Phone: [facility] Comment on above: Encounter for wellne ss examination in adult (Primary Dx); Primary insomnia Start: 09-07-2024 End: 09-07-2024 ambulatory АННА MCINTYREUSAMA Not Available Start: 09-02-2024 End: 09-02-2024 Bamboo flowsheet Slava Gloria DO Work Phone: [facility] Start: 09-02-2024 End: 09-07-2024 Bamboo flowsheet Slava Gloria DO Work Phone: [facility] Start: 09-02-2024 End: 09-07-2024 Clinisync Result Encounter Generic External Data Provider [facility] External Department Unsolicited Start: 09-02-2024 End: 09-02-2024 Office outpatient visit 15 minutes Slava Gloria DO Work Phone: [facility] Comment on above: 36 weeks gestation o f ([facility]); Third trimester ([facility]); History of gestational diabetes; Antepartum multigravida of advanced maternal age ([facility]) Start: 09-02-2024 End: 09-02-2024 ambulatory SLAVA GLORIA Not Available Start: 09-01-2024 End: 09-01-2024 [...] Unsolicited Start: 08-23-2024 End: 08-23-2024 Refill Анна Leland SENIOR INFRASTRUCTURE ARCHITECT Work Phone: [facility] Comment on above: Primary insomnia Start: 08-18-2024 End: 08-18-2024 Bamboo flowsheet Cely Carver SENIOR INFRASTRUCTURE ARCHITECT Work Phone: [facility] Start: 08-18-2024 End: 08-18-2024 Bamboo flowsheet Cely Carver SENIOR INFRASTRUCTURE ARCHITECT Work Phone: [facility] Start: 08-18-2024 End: 08-18-2024 Clinisync Result Encounter Generic External Data Provider [facility] External Department Unsolicited Start: 08-18-2024 End: 08-18-2024 Office outpatient visit 15 minutes Cely Carver SENIOR INFRASTRUCTURE ARCHITECT Work Phone: [facility] Comment on above: Third trimester preg eileen ([facility]); 34 weeks gestation of ([facility]) Start: 08-18-2024 End: 08-18-2024 ambulatory CELY CARVER Not Available Start: 08-13-2024 End: 08-13-2024 [...] 06-16-2024 End: 06-16-2024 Bamboo flowsheet Cely Carver SENIOR INFRASTRUCTURE ARCHITECT Work Phone: [facility] Start: 06-16-2024 End: 06-17-2024 Bamboo flowsheet Cely Carver SENIOR INFRASTRUCTURE ARCHITECT Work Phone: [facility] Start: 06-16-2024 End: 06-17-2024 External Result Encounter Slava Gloria DO Work Phone: [facility] Unsolicited Start: 06-16-2024 End: 06-16-2024 Office outpatient visit 15 minutes Cely Carver SENIOR INFRASTRUCTURE ARCHITECT Work Phone: [facility] Comment on [...] Start: 02-27-2024 End: 02-27-2024 ambulatory Slava Gloria [facility] Work Phone: Start: 02-27-2024 End: 02-27-2024 Departed Referred Slava Gloria DO Work Phone: [facility] Start: 02-27-2024 End: 02-27-2024 Clinisync Result Encounter Generic External Data Provider [facility] External Department Unsolicited Start: 02-27-2024 End: 02-27-2024 Clinisync Result Encounter Generic External Data Provider [facility] External Department Unsolicited Start: 02-25-2024 End: 02-26-2024 Refill Анна Leland SENIOR INFRASTRUCTURE ARCHITECT Work Phone: [facility] Comment on [...] Unsolicited Start: 12-10-2023 End: 12-10-2023 ambulatory SLAVA ELLERO Not Available Start: 12-10-2023 End: 12-10-2023 Patient encounter procedure Slava Gloria DO Work Phone: [facility] Work Phone: Start: 12-10-2023 End: 12-10-2023 Periodic preventive med est patient 18-39 yrs Slava Gloria DO Work Phone: [facility] Comment on above: Well woman exam with routine gynecological exam; Missed menses Start: 09-01-2023 Patient encounter status Slava Gloria DO Work Phone: [facility] Start: 06-30-2023 End: 06-30-2023 ambulatory MD Dar Brody Work Phone: [facility] Work Phone: Start: 06-30-2023 End: 06-30-2023 Departed Referred MD Dar Brody Work Phone: [facility] Start: 02-20-2022 End: 02-20-2022 ambulatory MARLYN HA Facility:[facility] Start: 11-06-2021 End: 11-06-[address] SLAVA CASTRO Facility:[facility] Start: 08-20-2021 End: 08-20-2021 ambulatory MARLYN HA Facility:[facility] Start: 08-06-2021 End: 08-07-2021 ambulatory MARLYN HA Facility:[facility] Procedures Date Procedure Procedure Detail Performing Clinician Start: 09-11-2024 OB BPP W NON-STRESS Generic External Data Provider Start: 09-09-2024 OB BPP W NON-STRESS Generic External Data Provider Start: 09-09-2024 OB GROWTH Generic Ex ternal Data Provider Start: 09-02-2024 Urnls dip stick/tabl et rgnt non-auto w/o micrscp Slava Gloria DO Work Phone: Start: 09-02-2024 STREP [...] Slava Gloria DO Work Phone: Start: 08-04-2024 OB BPP W NON-STRESS Generic External Data Provider Start: 07-28-2024 OB GROWTH Generic Ex ternal Data Provider Start: 07-23-2024 GLUCOSE TOLERANCE 3 HOUR Slava Gloria DO Work Phone: Start: 07-06-2024 Urnls dip stick/tabl et rgnt non-auto w/o micrscp Slava Gloria DO Work Phone: Start: 07-05-2024 ALL CBC WITH AUTO DIFF Cely Carver NP Work Phone: Start: 06-16-2024 RECURRENT VAGINITIS (HTRX) Slava Gloria DO Work Phone: Start: 06-16-2024 Urnls dip stick/tabl et rgnt non-auto w/o micrscp Cely Carver NP Work Phone: Start: 04-10-2024 GLUCOSE [...] Phone: Start: 12-10-2023 IGP,APTIMA HPV,AGE GDLN Slava Castro DO Work Phone: Start: 12-10-2023 Microscopic observat ion [Identifier] in Cervix by Cyto stain Cely Carver SENIOR INFRASTRUCTURE ARCHITECT Work Phone: Start: 12-10-2023 Cytp cerv/vag auto t hin layer prep mnl screen Slava Ellero DO Work Phone: Start: 11-25-2022 Microscopic observat ion [Identifier] in Cervix by Cyto stain Slava Ellero DO Work Phone: Plan of Treatment Date Care Activity Detail Author Start: 12-09-2028 Screening for malign ant neoplasm of cervix [facility] Start: 11-25-2025 Screening for malign ant neoplasm of cervix [facility] Start: 12-15-2024 End: 12-15-2024 Patient encounter procedure 12/15/2024 3:00 PM EDT Office Visit [facility] [address] [facility] [phone] Slava Castro, DO [address] [place] [address] [facility] Start: 09-14-2024 End: 09-14-2024 Patient encounter procedure 09/14/2024 10:00 AM EDT Routine [facility] [address] [place] [phone] Slava Castro, DO [address] [place] [address] [facility] Start: 09-09-2024 End: 09-09-2024 Patient encounter procedure 09/09/2024 11:50 AM EDT Routine [facility] [address] [place] [phone] Slava Castro, DO [address] [place], [place] [id number] [facility] Start: 09-07-2024 End: 09-07-2024 Patient encounter procedure 09/07/2024 1:00 PM EDT Office Visit [facility] [address] [place] [address] Анна Ha, VÍCTOR [address] [place] [address] [facility] Start: 09-02-2024 End: 09-02-2025 CULTURE, GROUP B STREP WITH SUSCEPTIBLITY CULTURE, GROUP B STREP WITH SUSCEPTIBLITY Lab Routine Third trimester ([facility]) Expected: 09/02/2024, Expires: 09/02/2025 [facility] Work Phone: Comment on above: Expected: 09/02/2024 , Expires: 09/02/2025 Start: 09-02-2024 End: 09-02-2024 Patient encounter procedure [facility] Comment on above: Arrived Start: 08-18-2024 End: 08-18-2024 Patient encounter procedure [facility] Comment on above: Arrived Start: 08-04-2024 End: 08-04-2024 Patient encounter procedure 08/04/2024 2:20 PM EDT Routine [facility] [address] [facility] [phone] Slava Castro DO [address] [facility] [address] [place], [place] [id number] [facility] Start: 07-21-2024 End: 07-21-2024 Patient encounter procedure 07/21/2024 2:20 PM EDT Routine [facility] [address] [facility] [address] Vidya Jackson PA [address] [facility] [address] [place], [place] [id number] [facility] Start: 07-21-2024 End: 01-21-2025 US biophysical profile w non stress test US biophysical profile w non stress test Imaging Routine History of gestational diabetes Expected: 07/21/2024 (Approximate), Expires: 01/21/2025 [facility] Work Phone: Comment on above: Expected: 07/21/2024 (Approximate), Expires: 01/21/2025 Start: 07-21-2024 End: 11-21-2024 US for US OB follow up transabdominal approach Imaging Routine History of gestational diabetes Expected: 07/21/2024, Expires: 11/21/2024 [facility] Comment on above: Expected: 07/21/2024 , Expires: 11/21/2024 Start: 07-06-2024 End: 07-06-2025 Measurement of glucose 1 hour after glucose challenge for glucose tolerance test Glucose tolerance, 1 hour Lab Routine Diabetes mellitus screening Expected: 07/06/2024 (Approximate), Expires: 07/06/2025 [facility] Work Phone: Comment on above: Expected: 07/06/2024 (Approximate), Expires: 07/06/2025 Start: 07-06-2024 End: 11-06-2024 US for US OB follow up transabdominal approach Imaging Routine SGA (small for gestational age) Expected: 07/06/2024, Expires: 11/06/2024 [facility] Comment on above: Expected: 07/06/2024 , Expires: 11/06/2024 Start: 07-06-2024 End: 07-06-2024 Patient encounter procedure 07/06/2024 1:50 PM EDT Routine [facility] [address] [facility] [address] Slava Castro DO [address] [place], [place] [id number] [facility] Start: 07-06-2024 End: 07-06-2024 Professional / ancillary services management 07/06/2024 1:30 PM EDT Ancillary Procedure [facility] OB [address] [place] [address] [facility] Start: 06-16-2024 End: 06-16-2025 CBC panel - Blood by Automated count CBC Lab Routine Diabetes mellitus screening Expected: 06/16/2024 (Approximate), Expires: 06/16/2025 [facility] Comment on above: Expected: 06/16/2024 (Approximate), Expires: 06/16/2025 Start: 06-16-2024 End: 06-16-2025 Measurement of glucose 1 hour after glucose challenge for glucose tolerance test Glucose tolerance, 1 hour Lab Routine Diabetes mellitus screening Expected: 06/16/2024 (Approximate), Expires: 06/16/2025 [facility] Comment on above: Expected: 06/16/2024 (Approximate), Expires: 06/16/2025 Start: 06-16-2024 End: 10-16-2024 US for US OB follow up transabdominal approach Imaging Routine Antepartum multigravida of advanced maternal age Expected: 06/16/2024, Expires: 10/16/2024 [facility] Work Phone: Comment on above: Expected: 06/16/2024 , Expires: 10/16/2024 Start: 06-16-2024 End: 06-16-2024 Patient encounter procedure 06/16/2024 1:20 PM EDT Routine [facility] [address] [facility] [place] [address] Cely Carver, SENIOR INFRASTRUCTURE ARCHITECT [address] [facility] [place] [phone] Arrived [facility] Comment on above: Arrived Start: 05-10-2024 End: 05-10-2024 Patient encounter procedure 05/10/2024 2:40 PM EDT Routine [facility] [address] [facility] [address] Slava Castro DO [address] [facility] [address] [place], [place] [id number] [facility] Start: 05-10-2024 End: 05-10-2024 Professional / ancillary services management 05/10/2024 1:30 PM EDT Ancillary Procedure [facility] [address] [facility] [phone] [facility] Start: 04-07-2024 End: 04-07-2024 Patient encounter procedure [facility] Comment on above: Arrived Start: 04-07-2024 End: 05-05-2024 Alpha fetoprotein, maternal Alpha fetoprotein, maternal Lab Routine Need for maternal serum alpha-protein (MSAFP) screening Expected: 04/07/2024 (Approximate), Expires: 05/05/2024 [facility] Comment on above: Expected: 04/07/2024 (Approximate), Expires: 05/05/2024 Start: 04-07-2024 End: 04-07-2025 Measurement of glucose 1 hour after glucose challenge for glucose tolerance test Glucose tolerance, 1 hour Lab Routine Diabetes mellitus screening Expected: 04/07/2024 (Approximate), Expires: 04/07/2025 [facility] Work Phone: Comment on above: Expected: 04/07/2024 (Approximate), Expires: 04/07/2025 Start: 04-07-2024 End: 04-07-2025 US for US OB 14+ weeks anatomy scan Imaging Routine Screening, , for anatomic survey Expected: 04/07/2024, Expires: 04/07/2025 [facility] Comment on above: Expected: 04/07/2024 , Expires: 04/07/2025 Start: 03-10-2024 End: 03-10-2024 Patient encounter procedure 03/10/2024 2:20 PM EST Routine [facility] [address] [place] [phone] Slava Castro, [address] [place], [place] [phone] [facility] Start: 03-02-2024 End: 03-02-2024 Patient encounter procedure 03/02/2024 9:40 AM EST Office Visit [facility] [address] [place] [address] Анна Ha, SENIOR INFRASTRUCTURE ARCHITECT [address] [place] [address] [facility] Start: 02-27-2024 Urine culture [facility] Start: 02-27-2024 Bacteria identified in Urine by Culture Urine Culture [facility] Start: 02-11-2024 End: 02-10-2025 ABO/Rh ABO/Rh Lab Routine Missed menses , unspecified gestational age Expected: 02/11/2024 (Approximate), Expires: 02/10/2025 [facility] Comment on above: Expected: 02/11/2024 (Approximate), Expires: 02/10/2025 Start: 02-11-2024 End: 02-10-2025 Blood type and Indirect antibody screen panel - Blood Type and screen Lab Routine Missed menses , unspecified gestational age Expected: 02/11/2024 (Approximate), Expires: 02/10/2025 [facility] Work Phone: Comment on above: Expected: 02/11/2024 (Approximate), Expires: 02/10/2025 Start: 02-11-2024 End: 02-10-2025 Drugs of abuse panel - Urine by Screen method Rapid drug screen, urine Lab Routine , unspecified gestational age Encounter for supervision of normal first in first trimester Expected: 02/11/2024 (Approximate), Expires: 02/10/2025 [facility] Comment on above: Expected: 02/11/2024 (Approximate), Expires: 02/10/2025 Start: 02-11-2024 End: 02-10-2025 US Pelvis transvaginal US OB transvaginal Imaging Routine Missed menses Expected: 02/11/2024 (Approximate), Expires: 02/10/2025 [facility] Comment on above: Expected: 02/11/2024 (Approximate), Expires: 02/10/2025 Start: 02-11-2024 End: 02-11-2024 ambulatory 02/11/2024 10:00 AM EST Initial [facility] [address] [place] [address] [facility] Start: 02-11-2024 End: 02-11-2024 Professional / ancillary services management 02/11/2024 9:30 AM EST Ancillary Procedure [facility] OB [address] [place] [address] [facility] Start: 2018 Screening for malign ant neoplasm of cervix HPV/Cotest [facility] Bacteria identified in Urine by Culture Urine culture Microbiology Routine Missed menses Ordered: 02/11/2024 [facility] Comment on above: Ordered: 02/11/2024 CBC W Auto Different ial panel - Blood CBC and differential Lab Routine Missed menses , unspecified gestational age Ordered: 02/11/2024 [facility] Comment on above: Ordered: 02/11/2024 CHLAMYDIA TRACHOMATI S (GENITO/STI) CHLAMYDIA TRACHOMATIS (GENITO/STI) Lab Routine Screen for STD (sexually transmitted disease) Ordered: 06/16/2024 [facility] Comment on above: Ordered: 06/16/2024 Cytology Cervical or vaginal smear or scraping study Pap Smear Pathology and Cytology Routine Well woman exam with routine gynecological exam Ordered: 12/10/2023 [facility] Work Phone: Comment on above: Ordered: 12/10/2023 Hemoglobin A1c/Hemoglobin.total in Blood Hemoglobin A1c Lab Routine Missed menses , unspecified gestational age Ordered: 02/11/2024 [facility] Comment on above: Ordered: 02/11/2024 Hepatitis B virus surface Ag [Presence] in Serum or Plasma by Immunoassay Hepatitis B surface antigen Lab Routine Missed menses , unspecified gestational age Ordered: 02/11/2024 [facility] Comment on above: Ordered: 02/11/2024 Hepatitis C virus Ab [Presence] in Serum or Plasma by Immunoassay Hepatitis C antibody Lab Routine Missed menses , unspecified gestational age Ordered: 02/11/2024 [facility] Comment on above: Ordered: 02/11/2024 HIV-1/HIV-2 antigen/antibody combination immunoassay HIV-1 and HIV-2 antibodies Lab Routine Missed menses , unspecified gestational age Ordered: 02/11/2024 [facility] Comment on above: Ordered: 02/11/2024 Human papilloma viru s DNA [Presence] in Unspecified specimen by Probe with amplification HPV DNA probe, amplified Microbiology Routine Well woman exam with routine gynecological exam Ordered: 12/10/2023 [facility] Comment on above: Ordered: 12/10/2023 Neisseria gonorrhoea e DNA [Presence] in Unspecified specimen by JUAN with probe detection Neisseria gonorrhea DNA probe, direct Lab Routine Screen for STD (sexually transmitted disease) Ordered: 06/16/2024 [facility] Comment on above: Ordered: 06/16/2024 Reagin Ab [Presence] in Serum by RPR RPR Lab Routine Missed menses , unspecified gestational age Ordered: 02/11/2024 [facility] Comment on above: Ordered: 02/11/2024 Rubella antibody, IgG Rubella an tibody, IgG Lab Routine Missed menses , unspecified gestational age Ordered: 02/11/2024 [facility] Comment on above: Ordered: 02/11/2024 SURESWAB(R) ADVANCED VAGINITIS PLUS, TMA SURESWAB(R) ADVANCED VAGINITIS PLUS, TMA Pathology and Cytology Routine Screen for STD (sexually transmitted disease) Ordered: 06/16/2024 [facility] Work Phone: Comment on above: Ordered: 06/16/2024 Immunizations Immunization Date Immunization Notes Care Provider Joan ornelas 12-08-2017 influenza, seasonal, injectable, preservative free Slava Gloria DO Work Phone: [facility] Payers Date Payer Category Payer Self-pay [id number] 2023 Managed Care O (unspecified) [employer] [id number] 2023 Private Health Insurance [id number] 2022 Medicaid (Managed Care) [employer] [id number] 1988 Unknown [id number] 2.16840.1.589313.3.579. 2.593 1988 Unknown [id number] 2.16840.1.795799.3.579. 2.593 1988 Unknown [id number] 2.16840.1.438965.3.579. 2.593 1988 Unknown [id number] 2.16840.1.590912.3.579. 2.593 1988 Unknown [id number] 2.16840.1.160298.3.579. 2.1259 1988 Unknown [id number] 2.16840.1.822048.3.579. 2.1259 1988 Unknown [id number] 2.16840.1.194194.3.579. 2.9 1988 Unknown [id number] 2.16840.1.149523.3.579. 2.1259 1988 Unknown [id number] 2.16840.1.923024.3.579. 2.1258 1988 Unknown [id number] 2.16840.1.121807.3.579. 2.1258 1988 Unknown [id number] 2.16840.1.696157.3.579. 2.1258 1988 Unknown [id number] 2.16840.1.195649.3.579. 2.1258 1988 Unknown [id number] 2.16840.1.906546.3.579. 2.1258 1988 Unknown [id number] 2.16840.1.800503.3.579. 2.1258 1988 Unknown [id number] 2.16840.1.083614.3.579. 2.1258 1988 Unknown [id number] 2.840.1.201058.3.579. 2.1258 1988 Unknown [id number] 2.840.1.378980.3.579. 2.1258 1988 Unknown [id number] 2.16840.1.069713.3.579. 2.1258 1988 Unknown [id number] 2.16840.1.944499.3.579. 2.1259 1959 Unknown [id number] Private Health Insurance [facility] [employer] [id number] Unknown [id number] 2.16840.1.181683.3.579. 2.531 Unknown [id number] 2.16840.1.800216.3.579. 2.531 Social History Date Type Detail Facility Start: 03-05-2019 End: 03-05-2019 Tobacco smoking status MOIS Never smoked tobacco (finding) [facility] Start: 1990 Sex Assigned At Female [facility] Start: 10-30-2022 Tobacco smoking status MOIS Ex-smoker [facility] End: 02-24-2014 History of tobacco use Current smoker [facility] End: 02-24-2014 History of tobacco use Cigarette Smoker [facility] Start: 10-30-2022 Tobacco use and exposure Smokeless tobacco non-user [facility] Start: 12-10-2023 End: 09-09-2024 Alcoholic beverage intake Lifetime non-drinker (finding) [facility] Start: 05-19-2023 End: 08-31-2024 History of Social function [facility] Start: 05-19-2023 End: 08-31-2024 Social connection and isolation panel [facility] Do you belong to any clubs or organizations such as jain groups, unions, fraternal [...] [facility] Start: 02-28-2024 Sex Female (finding) [facility] Do you feel stress - tense, [...] Shanthi Ha NP - 09/07/2024 1:00 PM EDTSsapphire Ferguson LPN - 09/02/2024 10:40 AM EDT [...] no Any Hospitalizations in the last year:no Specialist:BULK [employer]ATION AGENT Concerns: SUBJECTIVE: MEDICATIONS: Current Outpatient Medications Medication [...] abnormal pap smear PAP SMEAR 03/07/2014 [facility] Drug Therapy -SVT TONSILLECTOMY 1992 [...] yearly and prn documented in this encounter [facility] 09-02-2024 History of Present illness [...] abnormal pap smear PAP SMEAR 03/07/2014 [facility] Drug Therapy -SVT TONSILLECTOMY 1992 [...] note reviewed. Exam conducted with a director community center present. Vitals: Estimated body mass index is 33.6 kg/m as calculated from the following: Height as of 24: 5' 1 . Weight as of this encounter: 177 lb 12.8 oz. BP: 120/70 Patient's last menstrual period was 12/11/2023. ASSESSMENT & PLAN ICD-10-CM 1. 36 weeks gestation of ([facility]) Z3A.36 POCT urinalysis dipstick manually resulted 2. Third trimester ([facility]) Z34.93 POCT urinalysis dipstick manually resulted CULTURE, GROUP B STREP WITH SUSCEPTIBLITY CULTURE, GROUP B STREP WITH SUSCEPTIBLITY 3. History of gestational diabetes Z86.32 4. Antepartum multigravida of advanced maternal age ([facility]) O09.529 Patient is doing well but has [...] Slava Castro DO documented in this encounter [facility] 08-18-2024 History of Present illness [...] abnormal pap smear PAP SMEAR 03/07/2014 [facility] Drug Therapy -SVT TONSILLECTOMY 1992 [...] note reviewed. Exam conducted with a director community center present. Vitals: Estimated body mass index is 33.07 kg/m as calculated from the following: Height as of 78/24: 5' 1 . Weight as of this encounter: 175 lb. BP: 116/82 Patient's last menstrual period was 12/11/2023. ASSESSMENT & PLAN ICD-10-CM 1. Third trimester ([facility] Z34.93 2. 34 weeks gestation of ([facility]) Z3A.34 Return OB: Patient presents today for [...] Cely Carver NP documented in this encounter [facility] 08-04-2024 History of Present illness [...] for wellness examination in adult 09/01/2023 Depression ([facility]) 09/01/2023 Resolved Ambulatory Problems [...] 2012 Overweight (BMI 25.0-29.9) SVT (supraventricular tachycardia) ([facility]) Torn meniscus Social History [...] abnormal pap smear PAP SMEAR 03/07/2014 [facility] Drug Therapy -SVT TONSILLECTOMY 1992 [...] note reviewed. Exam conducted with a director community center present. Vitals: Estimated body mass index is [...] Slava Castro DO documented in this encounter [facility] 07-21-2024 History of Present illness [...] for wellness examination in adult 09/01/2023 Depression ([facility]) 09/01/2023 Resolved Ambulatory Problems [...] 2012 Overweight (BMI 25.0-29.9) SVT (supraventricular tachycardia) ([facility]) Torn meniscus HISTORY PAST [...] 2012 Overweight (BMI 25.0-29.9) SVT (supraventricular tachycardia) ([facility]) Torn meniscus Social History [...] abnormal pap smear PAP SMEAR 03/07/2014 [facility] Drug Therapy -SVT TONSILLECTOMY 1992 [...] of: GISELLE Cramer documented in this encounter [facility] 07-06-2024 History of Present illness [...] abnormal pap smear PAP SMEAR 03/07/2014 [facility] Drug Therapy -SVT TONSILLECTOMY 1992 [...] note reviewed. Exam conducted with a director community center present. Vitals: Estimated body mass index is [...] Slava Castro DO documented in this encounter [facility] 06-16-2024 History of Present illness [...] for wellness examination in adult 09/01/2023 Depression ([facility]) 09/01/2023 Resolved Ambulatory Problems Diagnosis Date Noted [...] 2012 Overweight (BMI 25.0-29.9) SVT (supraventricular tachycardia) ([facility]) Torn meniscus Social History [...] abnormal pap smear PAP SMEAR 03/07/2014 [facility] Drug Therapy -SVT TONSILLECTOMY 1992 [...] note reviewed. Exam conducted with a director community center present. Vitals: Estimated body mass index is [...] Cely Carver NP documented in this encounter [facility] 04-07-2024 History of Present illness [...] abnormal pap smear PAP SMEAR 03/07/2014 [facility] Drug Therapy -SVT TONSILLECTOMY 1992 [...] of: GISELLE Cramer documented in this encounter [facility] 03-10-2024 History of Present illness [...] abnormal pap smear PAP SMEAR 03/07/2014 [facility] Drug Therapy -SVT TONSILLECTOMY 1992 [...] note reviewed. Exam conducted with a director community center present. Vitals: Estimated body mass index is [...] or undercooked meat, and stay away from [facility]. Patient has been consulted regarding any [...] Slava Castro DO documented in this encounter [facility] 02-11-2024 History of Present illness [...] abnormal pap smear PAP SMEAR 03/07/2014 [facility] Drug Therapy -SVT TONSILLECTOMY 1992 [...] or undercooked meat, and stay away from [facility]. Patient has also been advised to not change litter boxes and eat 6 small meals a day. Patient has been consulted regarding the do's and don'ts of . Patient was given labs and all questions and concerns were answered. Patient was given [place] to have completed at 10 weeks. Follow Up: Patient is to return in 4 weeks for routine OB appointment. Follow Up: Patient is to have labs drawn at directed and return to office for initial OB appointment with provider. Patient may call office as needed with any concerns or questions. Nurse Visit Completed by: Lynnette Stapleton LPN documented in this encounter [facility] 12-10-2023 History of Present illness [...] Diagnosis Date Noted Insomnia 02/27/2023 Supraventricular tachycardia ([facility]) 12/09/2019 Left wrist pain 05/03/2023 Obesity (BMI 30-39.9) 05/26/2023 Encounter for wellness examination in adult 09/01/2023 Depression ([facility]) 09/01/2023 Resolved Ambulatory Problems Diagnosis Date Noted Major depressive disorder, single episode, mild (HCC) ([facility]) 09/01/2023 Past Medical History: Diagnosis Date Abnormal Pap smear of cervix 2009 Contraception management Current mild episode of major depressive disorder without prior episode (HCC) ([facility]) Degenerative joint disease of spine Encounter for IUD removal History of abnormal cervical Pap smear LGSIL Pap smear of vagina 2012 Overweight (BMI 25.0-29.9) SVT (supraventricular tachycardia) ([facility]) Torn meniscus HISTORY PAST [...] 2012 Overweight (BMI 25.0-29.9) SVT (supraventricular tachycardia) ([facility]) Torn meniscus Social History [...] abnormal pap smear PAP SMEAR 03/07/2014 LGSIL HI MEDICATION MANAGEMENT Drug Therapy -SVT TONSILLECTOMY 1992 [...] note reviewed. Exam conducted with a director community center present. Vitals: Estimated body mass index is [...] Evaluation note No assessment inform ation available [facility] Work Phone: Evaluation note Diagnosis [...] diabetes mellitus SGA (small for gestational age) Xpguq-zqi-cauby without mention of malnutrition, unspecified (weight) documented [...] Major depressive disorder, single episode, mild (HCC) ([facility] Major depressive disorder, single episode, mild Primary insomnia Persistent disorder of initiating or maintaining sleep Obesity (BMI 30-39.9) Depression, unspecified depression type ([facility]) 32 weeks gestation of Third trimester state, [...] 30-39.9) Depression, unspecified depression type Third trimester ([facility]) state, incidental 34 weeks gestation of ([facility]) documented in this encounter [facility] [...] unspecified depression type 36 weeks gestation of ([facility]) Third trimester ([facility]) state, incidental History of gestational diabetes Personal history of other genital system and obstetric disorders Antepartum multigravida of advanced maternal age ([facility]) documented in this encounter [facility]* [...] CREATED AUTHOR AUTHOR'S ORGANIZ ATION 03/06/2024 [facility] DATE CREATED AUTHOR AUTHOR'S ORGANIZ ATION 09/11/2024 [facility] Care Teams (unrecognized sec tion and content) Team Status: Active Member Role Status Dates Dar Brody MD Primary Care Provider Active Team Status: Inactive Member Role Status Dates Dar Brody MD Primary Care Provider Active Start: June 30, 2023 End: June 30, 2023 Slava Castro Attending Provider Active Start: Viky brewer 2023 End: June 30, 2023 Ems Instructor Relationship Specialty Start Date End Date Parag Bradley MD [address] [place] [address] PCP - General Family Medicine 08/14/22 Анна Ha NP [address] [place] [address] PCP - [facility] 08/25/23 Ems Instructor Relationship Specialty Start Date End Date Parag Bradley MD [address] [place] [address] PCP - General [facility] 08/14/22 Анна Ha NP [address] [place] [address] [facility] 08/25/23 Ems Instructor Relationship Specialty Start Date End Date Parag Bradley MD [address] [place] [address] PCP - [facility] 08/14/22 Анна Ha NP [address] [place] [address] [facility] 08/25/23 Ems Instructor Relationship Specialty Start Date End Date Parag Bradley MD [address] [place] [address] PCP [facility] 08/14/22 Анна Ha NP [address] [place] [address] [facility] 08/25/23 Ems Instructor Relationship Specialty Start Date End Date Parag Bradley MD [address] [place] [address] PCP [facility] 08/14/22 Анна Ha NP [address] [place] [address] [facility] 08/25/23 Ems Instructor Relationship Specialty Start Date End Date Parag Bradley MD [address] [place] [address] PCP [facility] 08/14/22 Анна Ha NP [address] [place] [address] PCP - [facility] 08/25/23 Team Status: Inactive Member Role Status Dates Slava Castro DO Attending Provider Active Start : February 27, 2024 End: February 27, 2024 Ems Instructor Relationship Specialty Start Date End Date Parag Bradley MD [address] [place] [address] PCP - General Family [facility] 08/14/22 Анна Ha NP [address] [place] [address] [facility] 08/25/23 Ems Instructor Relationship Specialty Start Date End Date Parag Bradley MD [address] [place] [address] PCP - [facility] 08/14/22 Анна Ha NP [address] [place] [address] PCP - [facility] [employer] [facility] 08/25/23 Ems Instructor Relationship Specialty Start Date End Date Parag Bradley MD [address] [place] [address] PCP - [facility] 08/14/22 Анна Ha NP [address] [place] [address] [facility] 08/25/23 Ems Instructor Relationship Specialty Start Date End Date Parag Bradley MD [address] [place] [address] PCP - [facility] 08/14/22 Анна Ha NP [address] [place] [address] [facility] 08/25/23 Ems Instructor Relationship Specialty Start Date End Date Parag Bradley MD [address] [place] [address] [facility] 08/14/22 Анна Ha NP [address] [place] [address] [facility] 08/25/23 Ems Instructor Relationship Specialty Start Date End Date Parag Bradley MD [address] [place] [address] [facility] 08/14/22 Анна Ha NP [address] [place] [address] [facility] 08/25/23 Goals (unrecognized section and content) [...] BE BASED ON THE PRIMARY CLINICAL RECORDS. [facility] [employer] [facility]. provides no warranty or guarantee of the accuracy or completeness of information in this document.
--- NOTE | 2024-09-12 08:01 | US_ITS ---
[address] [address] Patient Name: ROXANNE ROGERS MRN: [id number] date: 1990 Sex: F Assigned Patient Location: [facility] Current Patient Location: Accession/Order Number: [id number] Exam Date: 09/12/2024 11:48 Report Date: 09/12/2024 11:49 At the request of: HI VELAZQUEZ Procedure: US OB BPP w non-stress Biophysical profile. Reason for exam: Repeat BPP. COMPARISON: BPP 09/11/2024. TECHNIQUE: Transabdominal imaging of the gravid uterus was obtained. FINDINGS: The audio visual production specialist reports a BPP of 8 out of 8. LIVE is normal at 12.7 cm. heart rate 126 bpm. US/US OB BPP w non-stress IMPRESSION: BPP 8 out of 8. Impression dictated by: Avery Ram Jr., D.O. 09/12/2024 11:49 AM Dictation Location: [facility] Electronically authenticated by: [id number] Y Date: 09/12/2024 11:49
[2024-09-12 08:33] VITALS: BP 131/81; PULSE 66; TEMP 36.1
[2024-09-12 08:48] VITALS: BP 121/84; PULSE 78
== END 2024-09-12 09:00 | disposition home or self-care (01) ==
LOC: FBCO 07:52 → FBC 07:56
PROVIDERS: PCP Nurse Practitioner; Visit Provider Obstetrics & Gynecology Gynecology
DX: O09.519 Supervision of elderly primigravida, unspecified trimester (principal)
CPT/HCPCS: 59025; 76818

== ENCOUNTER 2024-09-14 10:41 | Inpatient (IN) | payer OTHER, SELFPAY ==
--- OUTSIDE RECORDS SUMMARY | 2021-03-22 12:00 | XMS_ITS | Continuity of Care Document ---
Author Organization [facility] Address [address] [place] [address] Phone Care Team Providers Care Health Worker Name Role Phone Tash Sandhu DMD Unavailable Unavailable Allergies, Adverse Reactions, Alerts Substance Reaction Status Criticality No Known Allergies Active No Inform ation Medications Medication Instructions Dosage Effective Dates (start - stop) Status Comments Mirena 20 mcg/24 hours (6 yrs) 52 mg intrauterine device - Active Procedures Procedure Date Nutrit Couns For Control Of [place] Dis Feb Bitewings-three Films Panoramic Film Comp Oral Eval New/estab Patient 2021 Oral Hygiene Instruction Limited Oral Eval Extract; Erupted Th/exposted Rt 021 Extract; Erupted Th/exposted Rt 021 Bitewig-single Film Intraoral-periapical 1st Film Advance Directives Directive Yes / No Effective Date File Name No Information Encounters Encounter Description Practice Location Reason(s) For Visit Diagnoses Date Provider Providers Copied on Encounter [facility], [address] [place] [address], [id number], tel:[phone] Dental Clinic DN (chief complaint) Encounter for screening for dental disorders Edson Bianchi. [address] [place] [address], [id number], [place]. tel:[phone] [facility], [address] [place] [address], [id number], tel:[phone] Dental Clinic Dental New (chief complaint) Encounter for screening for dental disorders Edson Bianchi. [address] [place], [place], [id number], [place]. tel:[phone] Family History Family Member Type Diagnosis Age At Onset Mother Problem Alive and well Father Problem Alive and well Mother Problem Cardiovascular disease Payers Payer name Insurance type Covered republican ID Aston jason(s) D Medicaid [facility] [id number] Social History Type Description Quantity Date Captured [...]
--- OUTSIDE RECORDS SUMMARY | 2021-03-22 12:00 | XMS_ITS | Continuity of Care Document ---
Author Organization [facility] Address [address] [place] [address] Phone Care Team Providers Care Swage Toolsetter Name Role Phone Tash Sandhu DMD Unavailable Unavailable Allergies, Adverse Reactions, Alerts Substance Reaction Status Criticality No Known Allergies Active No Inform ation Medications Medication Instructions Dosage Effective Dates (start - stop) Status Comments Mirena 20 mcg/24 hours (6 yrs) 52 mg intrauterine device - Active Procedures Procedure Date Nutrit Couns For Control Of [place] Dis Feb Bitewings-three Films Panoramic Film Comp Oral Eval New/estab Patient 2021 Oral Hygiene Instruction Limited Oral Eval Extract; Erupted Th/exposted Rt 021 Extract; Erupted Th/exposted Rt 021 Bitewig-single Film Intraoral-periapical 1st Film Advance Directives Directive Yes / No Effective Date File Name No Information Encounters Encounter Description Practice Location Reason(s) For Visit Diagnoses Date Provider Providers Copied on Encounter [facility], [address] [place] [address], [id number], tel:[phone] Dental Clinic DN (chief complaint) Encounter for screening for dental disorders Edson Bianchi. [address] [place] [address], [id number], [place]. tel:[phone] [facility], [address] [place] [address], [id number], tel:[phone] Dental Clinic Dental New (chief complaint) Encounter for screening for dental disorders Edson Bianchi. [address] [place], [place], [id number], [place]. tel:[phone] Family History Family Member Type Diagnosis Age At Onset Mother Problem Alive and well Father Problem Alive and well Mother Problem Cardiovascular disease Payers Payer name Insurance type Covered democrat ID Aston jason(s) D Medicaid [facility] [id number] Social History Type Description Quantity Date Captured [...]
--- OUTSIDE RECORDS SUMMARY | 2024-04-05 11:45 | XMS_ITS ---
Author Organization [facility] Address [address] [place] [address] Care Team Providers Care Data Communications Technician Name Role Phone Naida Valera Primary Care Provider REASON FOR VISIT EXT Encounters Encounter Location Date Provider Diagnosis [address] [place] [address] 04/05/2024 Naida Valera Plan Of Treatment No Information Progress Notes * ROXANNE ROGERS DDOB: 9 (34 yo F)Acc No.[id number]:04/05/2024 Patient: Lily ROXANNE DALLAS Provider: Elizabeth Valera DDS :1990 A ge:33 Y S ex:Female Date:04/05/2024 Address:[address] [place], [place] [phone] Subjective: * Chief Complaints: * 1 . EXT. * Medical History: Objective: * Vitals: Assessment: Plan: * Treatment: * Images: * Electronic signature of Harjit Valera DDS on 09/14/2024 at 09:54 AM EDT Sign off status: Pending * Provider: Elizabeth Valera DDS Date: 04/05/2024 Generated for Adam son/Makenzie/eTransmitting on: 0 09/14/2024 09:54 AM EDT
--- OUTSIDE RECORDS SUMMARY | 2024-04-19 09:00 | XMS_ITS ---
Author Organization [facility] Address [address] [place] [address] Care Team Providers Care Master [place] Name Role Phone Naida Valera Primary Care Provider REASON FOR VISIT FILLING Encounters Encounter Location Date Provider Diagnosis [address] [place] [address] 04/19/2024 Naida Valera Plan Of Treatment No Information Progress Notes * ROXANNE ROGERS DDOB: 9 (34 yo F)Acc No.[id number]:04/19/2024 Patient: Lily ROXANNE DALLAS Provider: Elizabeth Valera DDS :1990 A ge:33 Y S ex:Female Date:04/19/2024 Address:[address] [place], [place] [phone] Subjective: * Chief Complaints: * 1 . FILLING. * Medical History: Objective: * Vitals: Assessment: Plan: * Treatment: * Images: * Electronic signature of Harjit Valera DDS on 09/14/2024 at 09:54 AM EDT Sign off status: Pending * Provider: Elizabeth Valera DDS Date: 04/19/2024 Generated for Adam son/Makenzie/eTransmitting on: 0 09/14/2024 09:54 AM EDT
--- OUTSIDE RECORDS SUMMARY | 2024-09-02 10:40 | XMS_ITS | Encounter Summary ---
Author Organization [facility] Address [address] [place] [address] Care Team Providers Care Leather Colorer Name Role Phone Parag Bradley MD Primary Care Provider [phone] Анна Ha NP Unavailable [phone] Reason for Visit * Reason Comments Routine Visit Encounter Details Date Type Department Care Team (Latest Contact Info) Description 09/02/2024 10:40 AM EDT Routine [facility] [address] [place] [address] Slava Castro, DO [address] [place], [facility]11 36 weeks gestation of ([facility]); Third trimester ([facility]); History of gestational diabetes; Antepartum multigravida of advanced maternal age ([facility]) Social History Tobacco Use Types Packs/Day Years [...] 08/31/2024 How often do you attend chur or jehovah's witness services? More than 4 [...] Recorded Patient Health Questionnaire-2 Score 0 08/06/2024 [facility] [place] of Occupat ional Health - Occupational Stress [...] in a custodial (including now)? No 05/19/2023 Housing Stability Vital Sign Answer Leonidas e Recorded In the last 12 months, was t here a time when you were not able to pay the mortgage or rent on time? No 08/31/2024 In the past 12 months, how m any times have you moved where you were living? 0 08/31/2024 At any time in the past 12 m [facility], were you homeless or living in a custodial (including now)? No 08/31/2024 Estimated Date of [...] Sign Reading Time Taken Comments Blood Pressure 120/70 09/02/2024 10:47 AM EDT Pulse - - Temperature - - Respiratory Rate - - Oxygen Saturation - - Inhaled Oxygen Concentration - - Weight 80.6 kg (177 lb 12.8 oz) 025 10:47 AM EDT Height - - Body Mass Index 33.6 09/01/2023 10:37 AM EDT documented in this encounter Progress Notes * Ramandeep Ferguson LPN - 09/02/2024 10:40 AM EDT Reason for Appointment: Patient ID: Shreya Marshall is a 34 y.o. female who presents for Routine Visit [...] Types: Cigarettes Quit date: 2014 Years since quittin.5 Smokeless tobacco: Never Tobacco comments: Ex-moderate cigarette [...] appearance. She is well-developed. Genitourinary: Vulva normal. Cardiovascular: Rate and Rhythm: Normal rate and [...] nursing note reviewed. Exam conducted with a elevator attendant present. Vitals: Estimated body mass index is 33.6 kg/m² as calculated from the following: Height as of 24: 5' 1 . Weight as of this encounter: 177 lb 12.8 oz. BP: 120/70 Patient's last menstrual period was 12/11/2023. ASSESSMENT & PLAN ICD-10-CM 1. 36 weeks gestation of ([facility]) Z3A.36 POCT urinalysis dipstick manually resulted 2. Third trimester ([facility]) Z34.93 POCT urinalysis dipstick manually resulted CULTURE, GROUP B STREP WITH SUSCEPTIBLITY CULTURE, GROUP B STREP WITH SUSCEPTIBLITY 3. History of gestational diabetes Z86.32 4. Antepartum multigravida of advanced maternal age ([facility]) O09.529 Patient is doing well but has complaints of being tired and having maternal discomfort due to . Patient verbalized frequent movement and was instructed to perform kick counts three times per day. labor precautions were given, LARC consent was signed/declined, and GBS was obtained. Cervical check was performed and patient is 1cm dilated. Orders Placed This Encounter Procedures CULTURE, GROUP B STREP WITH SUSCEPTIBLITY POCT urinalysis dipstick manually resulted Follow Up: Patient is to return to office in 1 week for routine OB appointment Documented by Ramandeep Ferguson LPN on behalf of: Slava Castro DO documented in this encounter Plan of Treatment Upcoming Encounters Date Type Department Care Team (Late st Contact Info) Description 12/15/2024 3:00 PM EDT Office Visit [facility] [address] [place] [address] Slava Castro DO [address] [place] [address] documented as of this encounter Goals Goal Patient Goal Type Associated Problems Recent Progress Patient-Stated? Author Reminders Care Plan OB Reminders No Open Scheduling, Background documented as of this encounter Procedures Procedure Name Priority Date/Time Associated Diagnosis Comments POCT URINALYSIS DIPSTICK Routine 09/02/2024 10:53 AM EDT 36 weeks gestation of ([facility]) Third trimester ([facility]) CULTURE, GROUP B STREP WITH SUSCEPTIBLITY Routine 09/02/2024 10:36 AM EDT Third trimester ([facility]) documented in this encounter Results * (ABNORMAL) POCT urinalysis dipstick manually resulted (09/02/2024 10:53 AM EDT) Color, UA Yellow Clarity, UA Clear Glucose, UA Negative Negative - 1999(110) ++++ mg/dL Bilirubin, UA Negative Negative - 4(70) +++ mg/dL Ketones, UA Negative Negative - 160(16) ++++ mg/dL Spec Grav, UA 1.020 1 - 1.03 Blood, UA Negative Negative - 50 Richy/mcL pH, UA 6.0 5 - 9 Protein, UA Positive Negative - 1999(20) ++++ mg/dL Comment:30 Urobilinogen, UA 1.0 0.2 - 12 mg/dL Leukocytes, UA Negative Negative - 500+++ Tano/mcL Nitrite, UA Negative Negative - Positive Urine 09/02/2024 10:5 3 AM EDT Slava Gloria DO POINT OF CARE TEST ENTER/EDIT OR DERABLES Final Result * CULTURE, GROUP B STREP WITH SUSCEPTIBLITY (09/02/2024 10:36 AM EDT) Swab 09/02/2024 10:3 6 AM EDT us Slava Gloria DO LAB BLOOD ORDERABLES Final Resul t EXTERNAL LAB documented in this encounter Visit Diagnoses Diagnosis 36 weeks gestation of ([facility]) Third trimester ([facility]) state, incidental History of gestational diabetes Personal history of other genital system and obstetric disorders Antepartum multigravida of advanced maternal age ([facility]) documented in this encounter Additional Health Concerns Active Problems Noted Date Diagnosed Date OB Reminders 02/11/2024 documented as of this encounter Care Teams Leather Colorer Relationship Specialty Start Date End Date Parag Bradley MD [address] [place] [address] PCP - General Family Medicine 08/14/22 Анна Ha NP [address] [place] [phone] PCP - [facility] 08/25/23 documented as of this encounter
--- OUTSIDE RECORDS SUMMARY | 2024-09-02 10:40 | XMS_ITS | Encounter Summary ---
Author Organization [facility] Address [address] [place] [address] Care Team Providers Care Agricultural Economist Name Role Phone Parag Bradley MD Primary Care Provider [phone] Анна Ha NP Unavailable [phone] Reason for Visit * Reason Comments Routine Visit Encounter Details Date Type Department Care Team (Latest Contact Info) Description 09/02/2024 10:40 AM EDT Routine [facility] [address] [place] [address] Slava Castro, DO [address] [place], [facility] 36 weeks gestation of ([facility]); Third trimester ([facility]); History of gestational diabetes; Antepartum multigravida of advanced maternal age ([facility]) Social History Tobacco Use Types Packs/Day Years [...] Recorded Patient Health Questionnaire-2 Score 0 08/06/2024 [facility] [place] of Occupat ional Health - Occupational Stress [...] in a jail (including now)? No 05/19/2023 Housing Stability Vital Sign Answer Leonidas e Recorded In the last 12 months, was t here a time when you were not able to pay the mortgage or rent on time? No 08/31/2024 In the past 12 months, how m any times have you moved where you were living? 0 08/31/2024 At any time in the past 12 m [facility], were you homeless or living in a jail (including now)? No 08/31/2024 Estimated Date of [...] abnormal pap smear PAP SMEAR 03/07/2014 [facility] [place] [facility] Drug Therapy -SVT TONSILLECTOMY 1992 [...] nursing note reviewed. Exam conducted with a deflector operator present. Vitals: Estimated body mass index is 33.6 kg/m² as calculated from the following: Height as of 24: 5' 1 . Weight as of this encounter: 177 lb 12.8 oz. BP: 120/70 Patient's last menstrual period was 12/11/2023. ASSESSMENT & PLAN ICD-10-CM 1. 36 weeks gestation of ([facility]) Z3A.36 POCT urinalysis dipstick manually resulted 2. Third trimester ([facility]) Z34.93 POCT urinalysis dipstick manually resulted CULTURE, GROUP B STREP WITH SUSCEPTIBLITY CULTURE, GROUP B STREP WITH SUSCEPTIBLITY 3. History of gestational diabetes Z86.32 4. Antepartum multigravida of advanced maternal age ([facility]) O09.529 Patient is doing well but has [...] EDT Office Visit [facility] OB [address] [facility] [place] [address] Slava Castro DO [address] [place] [address] documented as of this encounter Goals Goal Patient Goal Type Associated Problems Recent Progress Patient-Stated? Author Reminders Care Plan OB Reminders No Open Scheduling, Background documented as of this encounter Procedures Procedure Name Priority Date/Time Associated Diagnosis Comments POCT URINALYSIS DIPSTICK Routine 09/02/2024 10:53 AM EDT 36 weeks gestation of ([facility]) Third trimester ([facility]) CULTURE, GROUP B STREP WITH SUSCEPTIBLITY Routine 09/02/2024 10:36 AM EDT Third trimester ([facility]) documented in this encounter Results * [...] Visit Diagnoses Diagnosis 36 weeks gestation of ([facility]) Third trimester ([facility]) state, incidental History of gestational diabetes Personal history of other genital system and obstetric disorders Antepartum multigravida of advanced maternal age ([facility]) documented in this encounter Additional Health Concerns Active Problems Noted Date Diagnosed Date OB Reminders 02/11/2024 documented as of this encounter Care Teams Agricultural Economist Relationship Specialty Start Date End Date Parag Bradley MD [address] [place] [address] PCP - General Family Medicine 08/14/22 Анна Ha NP [address] [place] [address] PCP - [facility] 08/25/23 documented as of this encounter
--- OUTSIDE RECORDS SUMMARY | 2024-09-07 13:00 | XMS_ITS | Encounter Summary ---
Author Organization [facility] Address [address] [place] [address] Care Team Providers Care Call Center Rn Name Role Phone Parag Bradley MD Primary Care Provider [phone] Анна Ha DRYWALL SANDER Unavailable [phone] Reason for Visit * Reason Comments Annual Exam Encounter Details Date Type Department Care Team (Late st Contact Info) Description 09/07/2024 1:00 PM EDT [facility] [address] [place] [address] Анна Ha, VÍCTOR [address] [place] [address] Encounter for wellness examination in adult (Primary [...] any clubs o r organizations such as christianity groups, unions, fraternal [...] Score 0 08/06/2024 [facility] Health - Occupational Stress Questionnaire Answer Date [...] in a retirement (including now)? No 05/19/2023 Housing Stability Vital Sign Answer Leonidas e Recorded In the last 12 months, was t here a time when you were not able to pay the mortgage or rent on time? No 08/31/2024 In the past 12 months, how m any times have you moved where you were living? 0 08/31/2024 At any time in the past 12 m [facility], were you homeless or living in a retirement (including now)? No 08/31/2024 Estimated Date of [...] no Any Hospitalizations in the last year:no Specialist:ASSEMBLER BONDING Concerns: SUBJECTIVE: MEDICATIONS: Current Outpatient Medications Medication [...] abnormal pap smear PAP SMEAR 03/07/2014 [facility] [place] [facility] Drug Therapy -SVT TONSILLECTOMY 1992 [...] Size: Adult long) Pulse 94 Temp 98 °F Resp 18 Wt 178 lb 12.8 oz LMP 12/11/2023 SpO2 98% BMI 33.78 kg/m² OB Status Smoking Status Former BSA 1.87 m² Physical Exam Vitals and nursing note reviewed. [...] [facility] [place] [phone] Slava Castro, DO [address] [facility] [place] [address] documented as of this encounter Goals Goal [...] documented as of this encounter Care Teams Call Center Rn Relationship Specialty Start Date End Date Parag Bradley MD [address] [place] [address] PCP - General Family Medicine 08/14/22 Анна Ha NP [address] [place] [address] PCP - [facility] 08/25/23 documented as of this encounter
--- OUTSIDE RECORDS SUMMARY | 2024-09-07 13:00 | XMS_ITS | Encounter Summary ---
Author Organization [facility] Address [address] [place] [address] Care Team Providers Care In Home Sales Representative Name Role Phone Parag Bradley MD Primary Care Provider [phone] Анна Ha RF TECHNICIAN Unavailable [phone] Reason for Visit * Reason Comments Annual Exam Encounter Details Date Type Department Care Team (Late st Contact Info) Description 09/07/2024 1:00 PM EDT [facility] [address] [place] [address] Анна Ha, VÍCTOR [address] [place] [address] Encounter for wellness examination in adult (Primary [...] any clubs o r organizations such as latter-day groups, unions, fraternal or athletic groups, or [...] Score 0 08/06/2024 [facility] Health - Occupational Stress Questionnaire Answer Date [...] time in the past [address] [facility], were you homeless or living in a [...] no Any Hospitalizations in the last year:no Specialist:SUPERVISOR GLYCERIN Concerns: SUBJECTIVE: MEDICATIONS: Current Outpatient Medications Medication [...] abnormal pap smear PAP SMEAR 03/07/2014 [facility] [place] [facility] [place] Drug Therapy -SVT TONSILLECTOMY 1992 [...] [address] [facility] [place] [phone] Slava Castro, DO [address] [facility] [place] [address] documented as of this encounter Goals Goal [...] documented as of this encounter Care Teams In Home Sales Representative Relationship Specialty Start Date End Date Parag Bradley MD [address] [place] [address] PCP - General Family Medicine 08/14/22 Анна Ha NP [address] [place] [address] PCP - [facility] 08/25/23 documented as of this encounter
--- OUTSIDE RECORDS SUMMARY | 2024-09-09 11:50 | XMS_ITS | Encounter Summary ---
Author Organization [facility] Address [address] [place] [address] Care Team Providers Care Director Of Global Talent Name Role Phone Parag Bradley MD Primary Care Provider [phone] Анна Ha NP Unavailable [phone] Reason for Visit * Reason Comments Routine Visit Encounter Details Date Type Department Care Team (Latest Contact Info) Description 09/09/2024 11:50 AM EDT Routine [facility] [address] [place] [id number] Slava Castro, DO [address] [facility] [address] [place], [id number] 37 weeks gestation of ([facility]); Third trimester ([facility] Antepartum multigravida of advanced maternal age ([facility]); SGA (small for gestational age) ([facility]); History of gestational diabetes Social History Tobacco [...] How often do you attend chur or advent services? More than 4 times per year 08/31/2024 Do you belong to any clubs o r organizations such as hoahaoism groups, unions, fraternal or athletic groups, or [...] Recorded Patient Health Questionnaire-2 Score 0 08/06/2024 [facility] of Occupat ional Health - Occupational Stress [...] any time in the past [facility], were you homeless or living in [...] in this encounter Progress Notes * Ramandeep Ferguson, SUMIT - 09/09/2024 11:50 AM EDT Reason for [...] abnormal pap smear PAP SMEAR 03/07/2014 [facility] [place] [facility] Drug Therapy -SVT TONSILLECTOMY 1992 [...] nursing note reviewed. Exam conducted with a medical lab director present. Vitals: Estimated body mass index is 33.47 kg/m² as calculated from the following: Height as of 24: 5' 1 . Weight as of this encounter: 177 lb 1.9 oz. BP: 120/74 Patient's last menstrual period was 12/11/2023. ASSESSMENT & PLAN ICD-10-CM 1. 37 weeks gestation of ([facility]) Z3A.37 POCT urinalysis dipstick manually resulted 2. Third trimester ([facility]) Z34.93 POCT urinalysis dipstick manually resulted 3. Antepartum multigravida of advanced maternal age ([facility]) O09.529 4. SGA (small for gestational age) ([facility]) P05.10 5. History of gestational diabetes Z86.32 [...] EDT Office Visit [facility] [address] [place] [phone] Slava Castro DO [address] [place] [address] documented as of this encounter Goals Goal Patient Goal Type Associated Problems Recent Progress Patient-Stated? Author Reminders Care Plan OB Reminders No Open Scheduling, Background documented as of this encounter Procedures Procedure Name Priority Date/Time Associated Diagnosis Comments POCT URINALYSIS DIPSTICK Routine 09/09/2024 12:09 PM EDT 37 weeks gestation of ([facility]) Third trimester ([facility]) documented in this encounter Results * [...] Visit Diagnoses Diagnosis 37 weeks gestation of ([facility]) Third trimester ([facility]) state, incidental Antepartum multigravida of advanced maternal age ([facility]) SGA (small for gestational age) ([facility]) Rimft-ncf-mpjjk without mention of malnutrition, unspecified (weight) History of gestational diabetes Personal history of other genital system and obstetric disorders documented in this encounter Additional Health Concerns Active Problems Noted Date Diagnosed Date OB Reminders 02/11/2024 documented as of this encounter Care Teams Director Of Global Talent Relationship Specialty Start Date End Date Parag Bradley MD [address] [place] [address] PCP - General Family Medicine 08/14/22 Анна Ha NP [address] [place] [address] PCP - [facility] 08/25/23 documented as of this encounter
--- OUTSIDE RECORDS SUMMARY | 2024-09-09 11:50 | XMS_ITS | Encounter Summary ---
Author Organization [facility] Address [address] [place] [address] Care Team Providers Care Sheet Metal Shop Helper Name Role Phone Parag Bradley MD Primary Care Provider [phone] Анна Ha NP Unavailable [phone] Reason for Visit * Reason Comments Routine Visit Encounter Details Date Type Department Care Team (Latest Contact Info) Description 09/09/2024 11:50 AM EDT Routine [facility] [address] [place] [phone] Slava Castro, DO [address] [facility] [address] [place], [facility] 37 weeks gestation of ([facility]); Third trimester ([facility]); Antepartum multigravida of advanced maternal age ([facility]); SGA (small for gestational age) ([facility]); History of gestational diabetes Social History [...] How often do you attend chur or jewish services? More than 4 times [...] Recorded Patient Health Questionnaire-2 Score 0 08/06/2024 [facility] [place] of Occupat ional Health - Occupational Stress [...] any time in the past 12 m [facility], were you homeless or living in [...] 10:37 AM EDT documented in this encounter Plan of Treatment Upcoming Encounters Date Type Department Care Team (Late st Contact Info) Description 12/15/2024 3:00 PM EDT Office Visit [facility] [address] [place] [address] Slava Castro, DO [address] [place] [address] documented as of this encounter Goals Goal Patient Goal Type Associated Problems Recent Progress Patient-Stated? Author Reminders Care Plan OB Reminders No Open Scheduling, Background documented as of this encounter Procedures Procedure Name Priority Date/Time Associated Diagnosis Comments POCT URINALYSIS DIPSTICK Routine 09/09/2024 12:09 PM EDT 37 weeks gestation of ([facility]) Third trimester ([facility]) documented in this encounter Results * [...] Visit Diagnoses Diagnosis 37 weeks gestation of ([facility]) Third trimester ([facility]) state, incidental Antepartum multigravida of advanced maternal age ([facility]) SGA (small for gestational age) ([facility]) Orsod-kxz-vfljf without mention of malnutrition, unspecified (weight) History of gestational diabetes Personal history of other genital system and obstetric disorders documented in this encounter Additional Health Concerns Active Problems Noted Date Diagnosed Date OB Reminders 02/11/2024 documented as of this encounter Care Teams Sheet Metal Shop Helper Relationship Specialty Start Date End Date Parag Bradley MD [address] [place] [address] PCP - General Family Medicine 08/14/22 Анна Ha NP [address] [place] [address] PCP - [facility] 08/25/23 documented as of this encounter
[2024-09-14] VITALS (17 sets, daily range): BP systolic 109–141; BP diastolic 57–89; PULSE 55–86; TEMP 36.6
--- OUTSIDE RECORDS SUMMARY | 2024-09-14 10:00 | XMS_ITS | Encounter Summary ---
Author Organization [facility] Address [address] [place] [address] Care Team Providers Care Regulatory Affairs Portfolio Leader Name Role Phone Parag Bardley MD Primary Care Provider [phone] Анна Ha NP Unavailable [phone] Reason for Visit * Reason Comments Routine Visit Encounter Details Date Type Department Care Team (Latest Contact Info) Description 09/14/2024 10:00 AM EDT Routine [facility] OB [address] [place] [address] Slava Castro, DO [address] [place], [facility] 38 weeks gestation of ([facility]); Third trimester ([facility]); Antepartum multigravida of advanced maternal age ([facility]); SGA (small for gestational age) ([facility]); History of gestational diabetes Social History Tobacco [...] How often do you attend chur or hoahaoism services? More than 4 times [...] Recorded Patient Health Questionnaire-2 Score 0 08/06/2024 [facility] of Occupat ional Health - Occupational Stress [...] in a intermediate (including now)? No 05/19/2023 Housing Stability Vital Sign Answer Leonidas e Recorded In the last 12 months, was t here a time when you were not able to pay the mortgage or rent on time? No 08/31/2024 In the past 12 months, how m any times have you moved where you were living? 0 08/31/2024 At any time in the past 12 m [facility], were you homeless or living in a intermediate (including now)? No 08/31/2024 Estimated Date of [...] EDT Office Visit [facility] [address] [place] [address] Slava Castro, DO [address] [place] [address] documented as of this encounter Goals Goal Patient Goal Type Associated Problems Recent Progress Patient-Stated? Author Reminders Care Plan OB Reminders No Open Scheduling, Background documented as of this encounter Procedures Procedure Name Priority Date/Time Associated Diagnosis Comments POCT URINALYSIS DIPSTICK Routine 09/14/2024 10:04 AM EDT 38 weeks gestation of ([facility]) Third trimester ([facility]) documented in this encounter Results * (ABNORMAL) [...] Visit Diagnoses Diagnosis 38 weeks gestation of ([facility]) Third trimester ([facility]) state, incidental Antepartum multigravida of advanced maternal age ([facility]) SGA (small for gestational age) ([facility]) Bctyx-apj-pjupj without mention of malnutrition, unspecified (weight) History of gestational diabetes Personal history of other genital system and obstetric disorders documented in this encounter Additional Health Concerns Active Problems Noted Date Diagnosed Date OB Reminders 02/11/2024 documented as of this encounter Care Teams Regulatory Affairs Portfolio Leader Relationship Specialty Start Date End Date Parag Bradley MD [address] [place] [address] PCP - General Family Medicine 08/14/22 Анна Ha NP [address] [place] [address] PCP - [facility] 08/25/23 documented as of this encounter
--- OUTSIDE RECORDS SUMMARY | 2024-09-14 10:00 | XMS_ITS | Encounter Summary ---
Author Organization [facility] Address [address] [place] [address] Care Team Providers Care Personal Shopper Name Role Phone Parag Bradley MD Primary Care Provider [phone] Анна Ha NP Unavailable [phone] Reason for Visit * Reason Comments Routine Visit Encounter Details Date Type Department Care Team (Latest Contact Info) Description 09/14/2024 10:00 AM EDT Routine [facility] [address] [place] [address] Slava Castro, DO [address] [place], [facility] 38 weeks gestation of ([facility]); Third trimester ([facility]); Antepartum multigravida of advanced maternal age ([facility]); SGA (small for gestational age) ([facility]); History of gestational diabetes Social History Tobacco [...] How often do you attend chur or islam services? More than 4 times [...] Recorded Patient Health Questionnaire-2 Score 0 08/06/2024 [facility] of Occupat ional Health - Occupational Stress [...] in a chcf (including now)? No 05/19/2023 Housing Stability Vital [...] time in the past 12 m [facility], were you homeless or living in a chcf (including now)? No 08/31/2024 Estimated Date of [...] EDT Office Visit [facility] B[facility] OB [address] [place] [address] Slava Castro, DO [address] [place] [address] documented as of this encounter Goals Goal Patient Goal Type Associated Problems Recent Progress Patient-Stated? Author Reminders Care Plan OB Reminders No Open Scheduling, Background documented as of this encounter Procedures Procedure Name Priority Date/Time Associated Diagnosis Comments POCT URINALYSIS DIPSTICK Routine 09/14/2024 10:04 AM EDT 38 weeks gestation of ([facility]) Third trimester ([facility]) documented in this encounter Results * (ABNORMAL) [...] Visit Diagnoses Diagnosis 38 weeks gestation of ([facility]) Third trimester ([facility]) state, incidental Antepartum multigravida of advanced maternal age ([facility]) SGA (small for gestational age) ([facility]) Jtayy-ydw-czxcn without mention of malnutrition, unspecified (weight) History of gestational diabetes Personal history of other genital system and obstetric disorders documented in this encounter Additional Health Concerns Active Problems Noted Date Diagnosed Date OB Reminders 02/11/2024 documented as of this encounter Care Teams Personal Shopper Relationship Specialty Start Date End Date Parag Bradley MD [address] [place] [address] PCP - General Family Medicine 08/14/22 Анна Ha NP [address] [place] [address] PCP - [facility] 08/25/23 documented as of this encounter
--- OUTSIDE RECORDS SUMMARY | 2024-09-14 10:47 | XMS_ITS | Encounter Summary ---
Author Organization [facility] Address [address] [place] [address] Care Team Providers Care Prestressed Concrete Laborer Name Role Phone Parag Bradley MD Primary Care Provider [phone] Анна Ha NP Unavailable [phone] Encounter Details Date Type Department Care Team (Late st Contact Info) Description 09/02/2024 Clinisync Result Encounter [facility] External Department Unsolicited [...] 08/06/2024 [facility] of Occupat ional Health - Occupational Stress [...] in a detention (including now)? No 05/19/2023 Housing Stability Vital [...] time in the past 12 m [facility], were you homeless or living in a detention (including now)? No 08/31/2024 Estimated Date of [...] EDT Office Visit [facility] [address] [place] [address] Slava Castro DO [address] [place], [place] [phone] documented as of this encounter Goals Goal Patient Goal Type Associated Problems Recent Progress Patient-Stated? Author Reminders Care Plan OB Reminders No Open Scheduling, Background documented as of this encounter Procedures Procedure Name Priority Date/Time Associated Diagnosis Comments STREP GP B CULTURE+RFLX Routine 09/02/2024 10:35 AM EDT documented in this encounter Results * STREP GP B CULTURE+RFLX (09/02/2024 10:35 AM EDT) Pathologist [facility] STREP GP B CULTURE+RFLX Strep Gp B Culture+Rflx [facility] STREP GP B CULTURE+RFLX Negative [facility] STREP GP B CULTURE+RFLX Centers for Disease Control and Prevention (CDC) and [facility] STREP GP B CULTURE+RFLX [employer] [employer] [facility] STREP GP B CULTURE+RFLX (ACOG) guidelines for prevention of group B [facility] STREP GP B CULTURE+RFLX streptococcal (GBS) disease specify co-collection of [facility] STREP GP B CULTURE+RFLX a vaginal and rectal swab specimen to maximize TB[facility] STREP GP B CULTURE+RFLX sensitivity of GBS detection. Per the CDC and ACOG, TBH STREP GP B CULTURE+RFLX swabbing both the lower vagina and rectum TBH STREP GP B CULTURE+RFLX substantially increases the yield of detection TB[facility] STREP GP B CULTURE+RFLX compared with sampling the vagina alone. [facility] STREP GP B CULTURE+RFLX Penicillin G, ampicillin, or cefazolin are indicated TBH STREP GP B CULTURE+RFLX for intrapartum prophylaxis of GBS [facility] STREP GP B CULTURE+RFLX colonization. Reflex susceptibility testing should be TBH STREP GP B CULTURE+RFLX performed prior to use of clindamycin only on GBS TBH STREP GP B CULTURE+RFLX isolates from penicillin-allergi c women who are TBH STREP GP B CULTURE+RFLX considered a high risk for anaphylaxis. Treatment with [facility] STREP GP B CULTURE+RFLX vancomycin without additional testing is warranted if TBH STREP GP B CULTURE+RFLX resistance to clindamycin is noted. TBH STREP GP B CULTURE+RFLX Performed at: - [facility] TB STREP GP B CULTURE+RFLX [address], [place] [id number] TBH STREP GP B CULTURE+RFLX Sales Development Manager: Tony Bynum PhD, Phone: [phone] 09/02/2024 10:3 5 AM EDT 09/02/2024 8:46 PM EDT Narrative KANUNC - 09/07/2024 4:09 PM EDT us Generic External Data Provider LAB BLOOD ORDERAB LES Final Result [facility] documented in this encounter Visit Diagnoses Not on filedocumented in this encounter Additional Health Concerns Active Problems Noted Date Diagnosed Date OB Reminders 02/11/2024 documented as of this encounter Care Teams Prestressed Concrete Laborer Relationship Specialty Start Date End Date Parag Bradley MD [address] [place] [address] PCP - General Family Medicine 08/14/22 Анна Ha NP [address] [place] [address] PCP - [facility] 08/25/23 documented as of this encounter
--- OUTSIDE RECORDS SUMMARY | 2024-09-14 10:47 | XMS_ITS | Encounter Summary ---
Author Organization [facility] Address [address] [place] [address] Care Team Providers Care Senior Net Application Developer Name Role Phone Parag Bradley MD Primary Care Provider Анна Ha NP Unavailable [phone] Encounter Details Date Type Department Care Team (Late st Contact Info) Description 06/23/2023 Orders Only [facility] [address] [facility] [place] [address] Slava Castro, DO [address] [facility] [address] [place], [place] [address] Social History Tobacco Use Types Packs/Day Years [...] Recorded Patient Health Questionnaire-2 Score 0 05/26/2023 [facility] - Occupational Stress Questionnaire Answer Date [...] OB [address] [place] [address] Slava Castro, [address] [place] [address] [place] [address] documented as of this encounter Procedures Procedure [...] filedocumented in this encounter Care Teams Senior Net Application Developer Relationship Specialty Start Date End Date Parag Bradley MD [address] [place] [address] PCP - General Family Medicine 08/14/22 Анна Ha NP [address] [place] [address] PCP - [facility] 08/25/23 documented as of this encounter
--- OUTSIDE RECORDS SUMMARY | 2024-09-14 10:47 | XMS_ITS | Encounter Summary ---
Author Organization [facility] Address [address] [place] [address] Care Team Providers Care Director Of Procurement Name Role Phone Parag Bradley MD Primary Care Provider [phone] Анна Ha NP Unavailable [phone] Encounter Details Date Type Department Care [...] often do you attend chur ch or yarsani services? More than 4 times per year [...] Recorded Patient Health Questionnaire-2 Score 0 05/26/2023 [facility] of Occupat ional [facility] - Occupational Stress Questionnaire Answer [...] EDT Office Visit [facility] BCP OB [address] [place] [address] Orlin Castro, [address] [place] [address] documented as of this encounter Procedures Procedure Name Priority Date/Time Associated Diagnosis Comments US OB TRANSVAGINAL 06/20/2023 12 :10 PM EDT documented in this encounter Results * US OB TRANSVAGINAL (06/20/2023 12:10 PM EDT) Anatomical Region Laterality Modality Other 06/20/2023 12:1 0 PM EDT Narrative 06/20/2023 12:12 [place] [address] Ultrasound Report Signed Patient: ROXANNE MARSHALL MR#: [id number] : 1990 Acct:[id number] Age/Sex: 32 / F ADM Date: 06/20/23 Loc: [facility] Attending Dr: Orlin Castro D.O. Ordering Physician: Orlin Castro D.O. Date of Service: 06/20/23 Procedure(s): US OB transvaginal Accession Number(s): [id number] cc: Анна Ha NP; Orlin Castro D.O. [address] [address] Patient Name: ROXANNE MARSHALL MRN: [id number] date: 1990 Sex: F Assigned Patient [facility]: [facility] Current Patient Location: [facility] Accession/Order Number: [id number] Exam Date: 06/20/2023 08:31 Report Date: 06/20/2023 [...] Signed By: 06/20/23 1212 DD/ 1210 TD/TT: Billet Shearer: Procedure Note Radiology, Radiologist, MD - 06/20/2023 [place] [address] Ultrasound Report Signed Patient: ROXANNE MARSHALL DMR#: [id number] : 1990Acct:[id number] Age/Sex: 32 / FADM Date: 06/20/23 Loc: [facility] Attending Dr: Orlin Castro D.O. Ordering Physician: Orlin Catsro D.O. Date of Service: 06/20/23 Procedure(s): US OB transvaginal Accession Number(s): [id number] cc: Анна Ha TRUCK BODY BUILDER APPRENTICE; Orlin Castro D.O. The [place] [id number] Patient Name: ROXANNE MARSHALL MRN: [facility]:[id number] date: 1990 Sex: F Assigned Patient Location: [facility] Current Patient Location: [facility] Accession/Order Number: [id number] Exam Date: 06/20/2023 08:31 Report Date: 06/20/2023 [...] M.D. Signed By:06/20/23 1212 DD/ 1210 TD/TT: Billet Shearer: us Generic External Data Provider [facility] Final Result documented in this encounter Visit Diagnoses Not on filedocumented in this encounter Care Teams Director Of Procurement Relationship Specialty Start Date End Date Parag Bradley MD [address] [place] [address] PCP - General Family Medicine 08/14/22 Анна Ha NP [address] [place] [address] [facility] 08/25/23 documented as of this encounter
--- OUTSIDE RECORDS SUMMARY | 2024-09-14 10:47 | XMS_ITS | Encounter Summary ---
Author Organization [facility] Address [address] [place] [address] Care Team Providers Care Cantilever Crane Operator Name Role Phone Parag Bradley MD Primary Care Provider [phone] Анна Ha NP Unavailable [phone] Encounter Details Date Type Department Care [...] Recorded Patient Health Questionnaire-2 Score 0 05/26/2023 [facility] Occupat ional [facility] [...] a nursing home (including now)? No 05/19/2023 Comments Unknown [...] OB [address] [place] [address] Orlin Castro, [address] [place] [address] [place] [address] documented as of this encounter Procedures Procedure Name Priority Date/Time Associated Diagnosis Comments US OB TRANSVAGINAL 06/13/2023 11 :13 AM EDT [facility] PREG QUANT HCG Routine 06/13/2023 10 :49 AM EDT documented in this encounter Results * US OB TRANSVAGINAL (06/13/2023 11:13 AM EDT) Anatomical Region Laterality Modality Other 06/13/2023 11:1 3 AM EDT Narrative 06/13/2023 11:16 AM EDT [address] [address] Ultrasound Report Signed Patient: ROXANNE MARSHALL MR#: [id number] : 1990 Acct:[id number] Age/Sex: 32 / F ADM Date: 06/13/23 Loc: [facility] Attending Dr: Orlin Castro D.O. Ordering Physician: Orlin Castro D.O. Date of Service: 06/13/23 Procedure(s): US OB transvaginal Accession Number(s): [id number] cc: Анна Ha DIRECT SELLING COUNSELOR; Orlin Castro D.O. [address] [address] Patient Name: ROXANNE MARSHALL MRN: [id number] date: 1990 Sex: F Assigned Patient Location: [facility] Current Patient Location: [facility] Accession/Order Number: [id number] Exam Date: 06/13/2023 09:58 Report Date: 06/13/2023 [...] Signed By: 06/13/23 1116 DD/ 1113 TD/TT: Sewage Screen Operator: Procedure Note Radiology, Radiologist, MD - 06/13/2023 [place] [address] Ultrasound Report Signed Patient: ROXANNE MARSHALL DMR#: [id number] : 1990Acct:[id number] Age/Sex: 32 / FADM Date: 06/13/23 Loc: [facility] Attending Dr: Orlin Castro D.O. Ordering Physician: Orlin Castro D.O. Date of Service: 06/13/23 Procedure(s): US OB transvaginal Accession Number(s): [id number] cc: Анна Ha DIRECT SELLING COUNSELOR; Orlin Castro D.O. The [place] [address] Patient Name: ROXANNE MARSHALL MRN: [facility]:[id number] date: 1990 Sex: F Assigned Patient Location: [facility] Current Patient Location: [facility] Accession/Order Number: [id number] Exam Date: 06/13/2023 09:58 Report Date: 06/13/2023 [...] M.D. Signed By:06/13/23 1116 DD/ 1113 TD/TT: Sewage Screen Operator: us Generic External Data Provider [facility] [...] PM EDT us Generic External Data Provider [facility] F inal Result [facility] documented in this encounter Visit Diagnoses Not on filedocumented in this encounter Care Teams Cantilever Crane Operator Relationship Specialty Start Date End Date Parag Bradley MD [address] [place] [address] PCP - General Family Medicine 08/14/22 Анна Ha NP [address] [place] [address] PCP - [facility] 08/25/23 documented as of this encounter
--- OUTSIDE RECORDS SUMMARY | 2024-09-14 10:47 | XMS_ITS ---
Author Organization [facility] Address [address] [place] [address] Care Team Providers Care Consulting Practice Director Name Role Phone Parag Bradley MD Primary Care Provider [phone] Анна Ha NP Unavailable [phone] [facility]) Status:Enrolled (Active) Start date:03/09/2024 Enrollment date:03/09/2024 Enrollment reason:Identified by Health Plan Case Team Name Relationship Phone Vidya Oliva LPN(Responsible Staff) Licensed [facility] Nurse [phone] Continued Care and Services Coordination
--- OUTSIDE RECORDS SUMMARY | 2024-09-14 10:47 | XMS_ITS | Encounter Summary ---
Author Organization [facility] Address [address] [place] [address] Care Team Providers Care Emergency Room Tech Name Role Phone Parag Bradley MD Primary Care Provider [phone] Анна Ha NP Unavailable [phone] Encounter Details Date Type Department Care Team (Late st Contact Info) Description 06/16/2023 Orders Only [facility] [address] [place] [address] Slava Castro, DO [address] [facility] [place] [address] [place] [address] Social History Tobacco Use Types Packs/Day Years [...] How often do you attend chur or taoism services? More than 4 times per year 05/19/2023 Do you belong to any clubs o r organizations such as zoroastrianism groups, unions, fraternal or athletic groups, or [...] Score 0 05/26/2023 [facility] - Occupational Stress Questionnaire Answer [...] EDT Office Visit [facility] BCP OB [address] [address] Slava Castro, [address] [place] [address] Dr Wesley [place], [place] [address] documented as of this encounter Procedures Procedure [...] on filedocumented in this encounter Care Teams Emergency Room Tech Relationship Specialty Start Date End Date Parag Bradley MD [address] [place] [address] PCP - General Family Medicine 08/14/22 Анна Ha NP [address] [place] [address] PCP - [facility] 08/25/23 documented as of this encounter
--- OUTSIDE RECORDS SUMMARY | 2024-09-14 10:47 | XMS_ITS | Encounter Summary ---
Author Organization [facility] Address [address] [place] [address] Care Team Providers Care Concrete Finisher Apprentice Name Role Phone Parag Bradley MD Primary Care Provider Анна aH NP Unavailable [phone] Encounter Details Date Type Department Care Team (Late st Contact Info) Description 06/26/2023 Orders Only [facility] FM [address] [facility] [place] [address] Slava Castro, DO [address] [facility] [address] [place], [place] [id number] Social History Tobacco Use Types Packs/Day Years [...] How often do you attend chur or mormonism services? More than 4 times per year 05/19/2023 Do you belong to any clubs o r organizations such as anabaptism groups, unions, fraternal [...] Recorded Patient Health Questionnaire-2 Score 0 05/26/2023 [facility] - Occupational Stress Questionnaire Answer [...] in a residential (including now)? No 05/19/2023 Comments Unknown Sex [...] [address] [facility] [place] [address] Slava Castro, [address] [place] [address] [place] [address] documented as of this encounter Procedures Procedure [...] on filedocumented in this encounter Care Teams Concrete Finisher Apprentice Relationship Specialty Start Date End Date Parag Bradley MD [address] [place] [address] PCP - General Family Medicine 08/14/22 Анна Ha NP [address] [place] [address] PCP - [facility] 08/25/23 documented as of this encounter
--- OUTSIDE RECORDS SUMMARY | 2024-09-14 10:47 | XMS_ITS | Encounter Summary ---
Author Organization [facility] Address [address] [place] [address] Care Team Providers Care Drift Miner Name Role Phone Parag Bradley MD Primary Care Provider [phone] Анна Ha NP Unavailable [phone] Encounter Details Date Type Department Care [...] any clubs o r organizations such as moravian groups, unions, fraternal or athletic groups, or [...] [facility] of Occupat ional [facility] - Occupational Stress Questionnaire Answer [...] EDT Office Visit [facility] BCP OB [address] [facility] [place] [address] Orlin Castro, [address] [place] [address] documented as of this encounter Procedures Procedure Name Priority Date/Time Associated Diagnosis Comments US OB TRANSVAGINAL 06/26/2023 10 :14 AM EDT documented in this encounter Results * US OB TRANSVAGINAL (06/26/2023 10:14 AM EDT) Anatomical Region Laterality Modality Other 06/26/2023 10:1 4 AM EDT Narrative 06/26/2023 10:16 AM EDT [address] [address] Ultrasound Report Signed Patient: ROXANNE MARSHALL MR#: [id number] : 1990 Acct:[id number] Age/Sex: 32 / F ADM Date: 06/26/23 Loc: [facility] Attending Dr: Orlin Castro D.O. Ordering Physician: Orlin Castro D.O. Date of Service: 06/26/23 Procedure(s): US OB transvaginal Accession Number(s): [id number] cc: Анна Ha NP; Orlin Castro D.O. [address] [address] Patient Name: ROXANNE MARSHALL MRN: [id number] date: 1990 Sex: F Assigned Patient [facility] Current Patient Location: [facility] Accession/Order Number: [id number] Exam Date: 06/26/2023 09:09 Report Date: 06/26/2023 [...] Signed By: 06/26/23 1016 DD/ 1014 TD/TT: Management Technician: Procedure Note Radiology, Radiologist, MD - 06/26/2023 [place] [address] Ultrasound Report Signed Patient: ROXANNE MARSHALL DMR#: [id number] : 1990Acct:[id number] Age/Sex: 32 / FADM Date: 06/26/23 Loc: [facility] Attending Dr: Orlin Castro D.O. Ordering Physician: Orlin Castro D.O. Date of Service: 06/26/23 Procedure(s): US OB transvaginal Accession Number(s): [id number] cc: Анна Ha DATA SCIENCES DIRECTOR; Orlin Castro D.O. The [place] [id number] Patient Name: ROXANNE MARSHALL MRN: [id number] date: 1990 Sex: F Assigned Patient Location: [facility] Current Patient Location: [facility] Accession/Order Number: [id number] Exam Date: 06/26/2023 09:09 Report Date: 06/26/2023 [...] M.D. Signed By:06/26/23 1016 DD/ 1014 TD/TT: Management Technician: us Generic External Data Provider [facility] Final Result documented in this encounter Visit Diagnoses Not on filedocumented in this encounter Care Teams Drift Miner Relationship Specialty Start Date End Date Parag Bradley MD [address] [place] [address] PCP - General Family Medicine 08/14/22 Анна Ha NP [address] [place] [address] PCP - [facility] 08/25/23 documented as of this encounter
--- OUTSIDE RECORDS SUMMARY | 2024-09-14 10:47 | XMS_ITS | Encounter Summary ---
Author Organization [facility] Address [address] [place] [address] Care Team Providers Care Senior It Auditor Name Role Phone Parag Bradley MD Primary Care Provider [phone] Анна Ha NP Unavailable [phone] Encounter Details Date Type Department Care Team (Latest Contact Info) Description 09/05/2024 Travel Social History Tobacco Use Types Packs/Day [...] any clubs o r organizations such as nondenominational groups, unions, fraternal or athletic groups, or [...] Recorded Patient Health Questionnaire-2 Score 0 08/06/2024 [facility] - Occupational Stress Questionnaire Answer Date Recorded [...] health care facility (including now)? No 05/19/2023 Housing Stability Vital Sign Answer Leonidas e Recorded In the last 12 months, was t here a time when you were not able to pay the mortgage or rent on time? No 08/31/2024 In the past 12 months, how m any times have you moved where you were living? 0 08/31/2024 At any time in the past 12 m [facility], were you homeless or living in a [place] health care facility (including now)? No 08/31/2024 Estimated Date of [...] Department Care Team (Late Contact Info) Description 12/15/2024 3:00 PM EDT Office Visit [facility] BCP OB [address] [facility] [place] [address] Slava Castro, DO [address] [place], [place] [address] documented as of this encounter Goals Goal Patient Goal Type Associated Problems Recent Progress Patient-Stated? Author Reminders Care Plan OB Reminders No Open Scheduling, Background documented as of this encounter Visit Diagnoses Not on filedocumented in this encounter Additional Health Concerns Active Problems Noted Date Diagnosed Date OB Reminders 02/11/2024 documented as of this encounter Care Teams Senior It Auditor Relationship Specialty Start Date End Date Parag Bradley MD [address] [place] [address] PCP - General Family Medicine 08/14/22 Анна Ha NP [address] [place] [address] PCP - [facility] 08/25/23 documented as of this encounter
--- OUTSIDE RECORDS SUMMARY | 2024-09-14 10:48 | XMS_ITS | Encounter Summary ---
Author Organization [facility] Address [address] [place] [address] Care Team Providers Care Virtual Assistant Name Role Phone Parag Bradley MD Primary Care Provider [phone] Анна Ha GRIEF COUNSELLOR Unavailable [phone] Encounter Details Date Type Department Care Team (Late st Contact Info) Description 08/04/2024 Abstract [facility] [address] [place] [address] Анна Ha, VÍCTOR [address] [place] [address] Social History Tobacco Use Types Packs/Day Years [...] Questionnaire-2 Score 0 08/06/2024 [facility] - Occupational Stress Questionnaire Answer [...] EDT Office Visit [facility] BCP OB [address] [facility] [place] [address] Slava Castro, DO [address] [facility] [place] [address] documented as of this encounter Goals Goal Patient Goal Type Associated Problems Recent Progress Patient-Stated? Author Reminders Care Plan OB Reminders No Open Scheduling, Background documented as of this encounter Visit Diagnoses Not on filedocumented in this encounter Additional Health Concerns Active Problems Noted Date Diagnosed Date OB Reminders 02/11/2024 documented as of this encounter Care Teams Virtual Assistant Relationship Specialty Start Date End Date Parag Bradley MD [address] [place] [address] PCP - General Family Medicine 08/14/22 Анна Ha NP [address] [place] [address] PCP - [facility] 08/25/23 documented as of this encounter
--- OUTSIDE RECORDS SUMMARY | 2024-09-14 10:48 | XMS_ITS | Encounter Summary ---
Author Organization [facility] Address [address] [place] [address] Care Team Providers Care Craft Demonstrator Name Role Phone Parag Bradley MD Primary Care Provider [phone] Анна Ha NP Unavailable [phone] Encounter Details Date Type Department Care Team (Late st Contact Info) Description 09/12/2024 Clinisync Result Encounter [facility] External Department Unsolicited [...] any clubs o r organizations such as rastafarian groups, unions, fraternal or athletic groups, or [...] Recorded Patient Health Questionnaire-2 Score 0 08/06/2024 [facility] of Occupat ional Health - [...] any time in the past 12 m [place], were you homeless or living in a [...] EDT Office Visit [facility] BCP OB [address] [facility] [place] [address] Slava Castro DO [address] [place], [place] [address] documented as of this encounter Goals Goal Patient Goal Type Associated Problems Recent Progress Patient-Stated? Author Reminders Care Plan OB Reminders No Open Scheduling, Background documented as of this encounter Procedures Procedure Name Priority Date/Time Associated Diagnosis Comments US OB BPP W NON-STRESS 09/12/2024 11:49 AM EDT documented in this encounter Results * US OB BPP W NON-STRESS (09/12/2024 11:49 AM EDT) Anatomical Region Laterality Modality Other 09/12/2024 11:4 9 AM EDT Narrative 09/12/2024 11:52 [place] [address] Ultrasound Report Signed Patient: ROXANNE MARSHALL MR#: [id number] : 1990 Acct:[id number] Age/Sex: 34 / F ADM Date: 09/12/24 Loc: [facility] Attending Dr: Hi Chi Ordering Physician: Hi Chi Date of Service: 09/12/24 Procedure(s): US OB BPP w non-stress Accession Number(s): [id number] cc: Анна Ha CHIP MUCKER; Hi Chi The [place] [id number] Patient Name: ROXANNE MARSHALL MRN: [id number] date: 1990 Sex: F Assigned Patient Location: [facility] Current Patient Location: Accession/Order Number: [id number] Exam Date: 09/12/2024 11:48 Report Date: 09/12/2024 11:49 At the request of: [facility] Procedure: US OB BPP w non-stress Biophysical profile. Reason for exam: Repeat BPP. COMPARISON: BPP 09/11/2024. TECHNIQUE: Transabdominal imaging of the gravid uterus was obtained. FINDINGS: The sweet pickled fruit maker reports a BPP of 8 out of 8. LIVE is normal at 12.7 cm. heart rate 126 bpm. US/US OB BPP w non-stress IMPRESSION: BPP 8 out of 8. Impression dictated by: Avery Ram Jr. DMuraliOMurali 09/12/2024 11:49 AM Dictation Location: [id number] Electronically authenticated by: [id number] Y Date: 09/12/2024 11:49 Dictated By: Avery Ram M.D. Signed By: 09/12/24 1152 DD/ 1149 TD/TT: Bead Inspector: Procedure Note Radiology, Radiologist, - 09/12/2024 [place] [address] Ultrasound Report Signed Patient: ROXANNE MARSHALL DMR#: [id number] : 1990Acct:[id number] Age/Sex: 34 / FADM Date: 09/12/24 Loc: [facility] Attending Dr: Hi Chi Ordering Physician: Hi Chi Date of Service: 09/12/24 Procedure(s): US OB BPP w non-stress Accession Number(s): [id number] cc: Анна Ha CHIP MUCKER; Hi Chi The [place] [address] Patient Name: ROXANNE MARSHALL MRN: [id number] date: 1990 Sex: F Assigned Patient Location: [facility] Current Patient Location: Accession/Order Number: [id number] Exam Date: 09/12/2024 11:48 Report Date: 09/12/2024 11:49 At the request of: [facility] Procedure: US OB BPP w non-stress Biophysical profile. Reason for exam: Repeat BPP. COMPARISON: BPP 09/11/2024. TECHNIQUE: Transabdominal imaging of the gravid uterus was obtained. FINDINGS: The sweet pickled fruit maker reports a BPP of 8 out of 8. LIVE is normal at12.7 cm. heart rate 126 bpm. US/US OB BPP w non-stress IMPRESSION: BPP 8 out of 8. Impression dictated by: Avery Ram Jr. DMuraliOMurali 09/12/2024 11:49 AM Dictation Location: [employer] Electronically authenticated by: [id number] Y Date: 511:49 Dictated By: Avery Ram M.D. Signed By:09/12/24 1152 DD/ 1149 TD/TT: Bead Inspector: us Generic External Data Provider [facility] Final Result documented in this encounter Visit Diagnoses Not on filedocumented in this encounter Additional Health Concerns Active Problems Noted Date Diagnosed Date OB Reminders 02/11/2024 documented as of this encounter Care Teams Craft Demonstrator Relationship Specialty Start Date End Date Parag Bradley MD [address] [place] [address] PCP - General Family Medicine 08/14/22 Анна Ha NP [address] [place] [address] PCP - [facility] 08/25/23 documented as of this encounter
--- OUTSIDE RECORDS SUMMARY | 2024-09-14 10:48 | XMS_ITS | Encounter Summary ---
Author Organization [facility] Address [address] [place] [address] Care Team Providers Care Length Control Tester Name Role Phone Parag Bradley MD Primary Care Provider [phone] Анна Ha NP Unavailable [phone] Encounter Details Date Type Department Care Team (Latest Contact Info) Description 09/10/2024 Travel Social History Tobacco Use Types Packs/Day [...] often do you attend chur ch or temple services? More than 4 times per year [...] Questionnaire-2 Score 0 08/06/2024 [facility] - Occupational Stress [...] any time in the past 12 m [facility], were you homeless or living in [...] EDT Office Visit [facility] BCP OB [address] [facility] [place] [address] Slava Castro, DO [address] [place] [place], [place] [address] documented as of this encounter Goals Goal Patient Goal Type Associated Problems Recent Progress Patient-Stated? Author Reminders Care Plan OB Reminders No Open Scheduling, Background documented as of this encounter Visit Diagnoses Not on filedocumented in this encounter Additional Health Concerns Active Problems Noted Date Diagnosed Date OB Reminders 02/11/2024 documented as of this encounter Care Teams Length Control Tester Relationship Specialty Start Date End Date Parag Bradley MD [address] [place] [address] PCP - General Family Medicine 08/14/22 Анна Ha NP [address] [place] [address] PCP - [facility] 08/25/23 documented as of this encounter
--- OUTSIDE RECORDS SUMMARY | 2024-09-14 10:48 | XMS_ITS | Encounter Summary ---
Author Organization [facility] Address [address] [place] [address] Care Team Providers Care Harpoon Engagement Planning Operator Name Role Phone Parag Bradley MD Primary Care Provider [phone] Анна Ha SHIPPING RECEIVING MANAGER Unavailable [phone] Reason for Visit * Reason Onset Date Comments Med Refill 08/22/2024 Encounter Details Date Type Department Care Team (Late st Contact Info) Description 08/22/2024 Refill [facility] [address] [place] [address] Анна Ha, SHIPPING RECEIVING MANAGER [address] [place] [address] Primary insomnia Social History Tobacco [...] Questionnaire-2 Score 0 08/06/2024 [facility] [...] EDT Office Visit [facility] [address] [facility] [place] [place] [phone] Slava Castro, DO [address] [place] [address] documented as of this encounter Goals Goal [...] documented as of this encounter Care Teams Harpoon Engagement Planning Operator Relationship Specialty Start Date End Date Parag Bradley MD [address] [place] [address] PCP - General Family Medicine 08/14/22 Анна Ha NP [address] [place] [address] PCP - [facility] 08/25/23 documented as of this encounter
--- OUTSIDE RECORDS SUMMARY | 2024-09-14 10:48 | XMS_ITS | Encounter Summary ---
Author Organization [facility] Address [address] [place] [address] Care Team Providers Care Steward Dishwasher Name Role Phone Parag Bradley MD Primary Care Provider [phone] Анна Ha NP Unavailable [phone] Encounter Details Date Type Department Care Team (Late st Contact Info) Description 09/09/2024 Clinisync Result Encounter N[facility]S External Department Unsolicited [...] Recorded Patient Health Questionnaire-2 Score 0 08/06/2024 [facility] - [...] EDT Office Visit [facility] [address] [facility] [place] [place] [address] Slava Castro DO [address] [place], [place] [id number] documented as of this encounter Goals Goal Patient Goal Type Associated Problems Recent Progress Patient-Stated? Author Reminders Care Plan OB Reminders No Open Scheduling, Background documented as of this encounter Procedures Procedure Name Priority Date/Time Associated Diagnosis Comments US OB GROWTH 09/09/2024 8:12 AM EDT documented in this encounter Results * US OB GROWTH (09/09/2024 8:12 AM EDT) Anatomical Region Laterality Modality Other 09/09/2024 8:12 AM EDT Narrative 09/09/2024 8:14 [place] [address] Ultrasound Report Signed Patient: ROXANNE MARSHALL MR#: [id number] : 1990 Acct:[id number] Age/Sex: 34 / F ADM Date: 09/08/24 Loc: US Attending Dr: Vidya Jackson Ordering Physician: Vidya Jackson Date of Service: 09/08/24 Procedure(s): US OB growth Accession Number(s): [id number] cc: Анна Ha NP; Vidya Jackson The [place] [id number] Patient Name: ROXANNE MARSHALL MRN: [id number] date: 1990 Sex: F Assigned Patient Location: [facility] Current Patient Location: Accession/Order Number: [id number] Exam Date: 09/09/2024 08:04 Report Date: 09/09/2024 [...] Auguste M.D. 09/09/2024 8:12 AM Dictation Location: [place] [address] Electronically authenticated by: [id number] Y Date: 09/09/2024 08:12 Dictated By: Isatu Auguste M.D. Signed By: 09/09/24813 DD/ 1 TD/TT: Slitting And Shipping Supervisor: Procedure Note Radiology, Radiologist, MD - 09/09/2024 [place] [address] Ultrasound Report Signed Patient: ROXANNE MARSHALL DMR#: [id number] : 1990Acct:[id number] Age/Sex: 34 / FADM Date: 09/08/24 Loc: US Attending Dr: Vidya Jackson Ordering Physician: Vidya Jackson Date of Service: 09/08/24 Procedure(s): US OB growth Accession Number(s): [id number] cc: Анна Ha NP; Vidya Jackson The [place] [id number] Patient Name: ROXANNE MARSHALL MRN: [facility]:[id number] date: 1990 Sex: F Assigned Patient Location: [facility] Current Patient Location: Accession/Order Number: [id number] Exam Date: 09/09/2024 08:04 Report Date: 09/09/2024 [...] Femur length 6.6 cm 33 weeks 6 days<3% The composite ultrasound age based on these measurements is 35 weeks 3days +/- 2 weeks 3 days. The estimated date of delivery is 10/10/2024.Estimated date of delivery based on the comparison is 09/28/2024 and on last menstrual period 09/24/2024. The estimated weight is 5 pounds 14 ounces +/- 14 ounces (10%) US/US OB growth IMPRESSION: SINGLE LIVE INTRAUTERINE GESTATION WITH ULTRASOUND AGE OF 35 WEEKS 3 DAYS. INTERVAL GROWTH AT THE LOWER LIMITS OF STANDARD DEVIATION FROM THE LASTSTUDY. BIOPHYSICAL PROFILE: COMPARISON: 09/01/2024 FINDINGS: TONE: 1 or more episodes of activity extension and flexion of extremity or opening and closing of the hand [Y] 2/2 GROSS BODY MOVEMENTS: 3 or more discrete body or limb movements [Y] 2/2 BREATHING MOVEMENTS: 1 or more episodes of breathing lastingat least 30 seconds [Y] 0/2 LIVE: A single deepest vertical pocket of amniotic fluid greater than 2 cm [Y] 2/2 LIVE: 9.7 cm Total score: 6/8 IMPRESSION: FAILED BIOPHYSICAL PROFILE WITH NO BREATHING Impression dictated by: Isatu Auguste M.D. 09/09/2024 8:12 AM Dictation Location: [place] [address] Electronically authenticated by: [id number] Y Date: 508:12 Dictated By: Isatu Auguste M.D. Signed By:09/09/24813 DD/ 1 TD/TT: Slitting And Shipping Supervisor: us Generic External Data Provider [facility] Final Result documented in this encounter Visit Diagnoses Not on filedocumented in this encounter Additional Health Concerns Active Problems Noted Date Diagnosed Date OB Reminders 02/11/2024 documented as of this encounter Care Teams Steward Dishwasher Relationship Specialty Start Date End Date Parag Bradley MD [address] [place] [address] PCP - General Family Medicine 08/14/22 Анна Ha NP [address] [place] [address] PCP - [facility] 08/25/23 documented as of this encounter
--- OUTSIDE RECORDS SUMMARY | 2024-09-14 10:48 | XMS_ITS | Patient Health Record ---
[facility] Address [address] [place] [address] Care Team Providers Care Stars Coordinator Name Role Phone Alishaelzbieta Naida Primary Care Provider Reason For Referral No Information Medications Medication SIG (Take, Route, Frequency, Duration) Notes Start Date End Date Status Zoloft Unknown TRAZODONE Unknown Acetaminophen Extra Strength 500 MG 1 tablet as needed Orally every 6 hrs 01/02/2024 Active Encounters Encounter Location Date Provider Diagnosis [address] [address] 12/25/2023 Naida Valera Cracked tooth K03 .[address] [address] 12/29/2023 Naida Valera Encounter for [facility] examination and cleaning with abnormal findings Z01.[address] [address] 01/02/2024 Naida Valera Encounter for [facility] [...] findings (ICD-10 - Z01.21) Plan Of Treatment No Information Insurance Providers Payer Name Payer Address Payer Phone Subscriber Number Group Number Insured Name Patient Relationship to Insured Coverage Start Date Coverage End Date D[employer] DHMO [address] [address] [place] [phone] [id number] ROXANNE ROGERS Self - patient is the insured 4 Secondary [employer] [place] [employer] [address] [address] [place] [address] [id number] ROXANNE ROGERS Self - patient is the insured 3 [employer] [facility] [place] [address] [place] [address] [id number] ROXANNE ROGERS Self - patient is the insured 3
--- OUTSIDE RECORDS SUMMARY | 2024-09-14 10:48 | XMS_ITS | Encounter Summary ---
Author Organization [facility] Address [address] [place] [address] Care Team Providers Care Lead Project Engineer Name Role Phone Parag Bradley MD Primary Care Provider [phone] Анна Ha WATER PLANT MAINTENANCE MECHANIC Unavailable [phone] Encounter Details Date Type Department Care Team (Late st Contact Info) Description 09/07/2024 Bamboo flowsheet [facility] FM [address] [place] [address] Анна Ha, VÍCTOR [address] [place] [address] Social History Tobacco Use Types Packs/Day Years [...] Recorded Patient Health Questionnaire-2 Score 0 08/06/2024 [facility] - Occupational [...] a skilled nursing (including now)? No 05/19/2023 Housing Stability Vital Sign Answer Leonidas e Recorded In the last 12 months, was t here a time when you were not able to pay the mortgage or rent on time? No 08/31/2024 In the past 12 months, how m any times have you moved where you were living? 0 08/31/2024 At any time in the past 12 m [facility], were you homeless or living in a skilled nursing (including now)? No 08/31/2024 Estimated Date of [...] EDT Office Visit [facility] BCP OB [address] [facility] [place] [address] Slava Castro, DO [address] [facility] [place] [address] documented as of this encounter Goals Goal Patient Goal Type Associated Problems Recent Progress Patient-Stated? Author Reminders Care Plan OB Reminders No Open Scheduling, Background documented as of this encounter Visit Diagnoses Not on filedocumented in this encounter Additional Health Concerns Active Problems Noted Date Diagnosed Date OB Reminders 02/11/2024 documented as of this encounter Care Teams Lead Project Engineer Relationship Specialty Start Date End Date Parag Bradley MD [address] [place] [address] PCP - General Family Medicine 08/14/22 Анна Ha NP [address] [place] [address] [facility] documented as of this encounter
--- OUTSIDE RECORDS SUMMARY | 2024-09-14 10:48 | XMS_ITS | Encounter Summary ---
Author Organization [facility] Address [address] [place] [address] Care Team Providers Care Boom Operator Name Role Phone Parag Bradley MD Primary Care Provider [phone] Анна Ha NP Unavailable [phone] Encounter Details Date Type Department Care Team (Late st Contact Info) Description 09/08/2024 Telephone [facility] BCP OB [address] [employer] [place] [address] Lorin Mustafa LPN [address] [place] [address] Social History Tobacco Use Types Packs/Day Years [...] week 08/31/2024 How often do you attend [facility] or gnosticism services? More than 4 times [...] 08/06/2024 [facility] Health - Occupational Stress Questionnaire Answer Date [...] any time in the past 12 m [facility], were you homeless or living in [...] encounter Miscellaneous Notes * Telephone Encounter - Lorin Mustafa LPN - 09/08/2024 11:19 AM EDT US needed standing order documented in this encounter Plan of Treatment Upcoming Encounters Date Type Department Care Team (Late st Contact Info) Description 12/15/2024 3:00 PM EDT Office Visit [facility] BCP OB [address] [facility] [place] [address] Slava Castro, [address] [place] [place] [address] Scheduled Orders Name Type Priority Associated Diagnoses Orde r Schedule US OB follow up transabdominal approach Imaging Routine History of gestational diabetes SGA (small for gestational age) ([facility]) Antepartum multigravida of advanced maternal age ([facility]) Expected: 09/08/2024, Expires: 01/09/2025 documented as of this encounter Goals Goal Patient Goal Type Associated Problems Recent Progress Patient-Stated? Author Reminders Care Plan OB Reminders No Open Scheduling, Background documented as of this encounter Visit Diagnoses Diagnosis History of gestational diabetes Personal history of other genital system and obstetric disorders SGA (small for gestational age) ([facility]) Storl-tij-bekxd without mention of malnutrition, unspecified (weight) Antepartum multigravida of advanced maternal age ([facility]) documented in this encounter Additional Health Concerns Active Problems Noted Date Diagnosed Date OB Reminders 02/11/2024 documented as of this encounter Care Teams Boom Operator Relationship Specialty Start Date End Date Parag Bradley MD [address] [place] [address] PCP - General Family Medicine 08/14/22 Анна Ha NP [address] [place] [address] PCP - [facility] 08/25/23 documented as of this encounter
--- OUTSIDE RECORDS SUMMARY | 2024-09-14 10:48 | XMS_ITS | Encounter Summary ---
Author Organization [facility] Address [address] [address] Care Team Providers Care Flight Paramedic Name Role Phone Parag Bradley MD Primary Care Provider Анна Ha NP Unavailable [phone] Encounter Details Date Type Department Care Team (Late st Contact Info) Description 09/14/2024 Bamboo flowsheet [facility] BCP OB [address] [place] [address] Slava Castro, DO [address] [place], [place] [address] Social History Tobacco Use Types Packs/Day Years [...] Recorded Patient Health Questionnaire-2 Score 0 08/06/2024 [facility]at ional [facility] - Occupational Stress [...] [address] [facility] [place] [address] Slava Castro, DO [address] [facility] [address] [place] [address] documented as of this encounter Goals Goal Patient Goal Type Associated Problems Recent Progress Patient-Stated? Author Reminders Care Plan OB Reminders No Open Scheduling, Background documented as of this encounter Visit Diagnoses Not on filedocumented in this encounter Additional Health Concerns Active Problems Noted Date Diagnosed Date OB Reminders 02/11/2024 documented as of this encounter Care Teams Flight Paramedic Relationship Specialty Start Date End Date Parag Bradley MD [address] [place] [address] PCP - General Family Medicine 08/14/22 Анна Ha NP [address] [place] [address] PCP - [facility] 08/25/23 documented as of this encounter
--- OUTSIDE RECORDS SUMMARY | 2024-09-14 10:48 | XMS_ITS | Encounter Summary ---
Author Organization [facility] Address [address] [place] [address] Care Team Providers Care Courtesy Van Driver Name Role Phone Parag Bradley MD Primary Care Provider [phone] нАна Ha NP Unavailable [phone] Encounter Details Date Type Department Care [...] often do you attend chur ch or scientologist services? More than 4 times [...] 1 09/01/2023 [facility] - Occupational Stress Questionnaire Answer [...] [facility] [place] [address] Orlin Castro DO [address] [facility] [place] [address] documented as of this encounter Goals Goal [...] AM EST Narrative 02/12/2024 4:31 AM EST [address] [address] Ultrasound Report Signed Patient: ROXANNE MARSHALL MR#: [id number] : 1990 Acct:[id number] Age/Sex: 33 / F ADM Date: 02/11/24 Loc: [facility] Attending Dr: Orlin Castro D.O. Ordering Physician: Orlin Castro D.O. Date of Service: 02/11/24 Procedure(s): US OB transvaginal Accession Number(s): [id number] cc: Анна Ha GROCERY STORE MANAGER; Orlin Castro D.O. The [place] [address] Patient Name: ROXANNE MARSHALL MRN: [id number] date: 1990 Sex: F Assigned Patient Location: [facility] Current Patient Location: Accession/Order Number: [id number] Exam Date: 02/11/2024 09:39 Report Date: 02/12/2024 [...] Signed By: 02/12/24 0431 DD/ 0429 TD/TT: Slip Cover Estimator: Procedure Note Radiology, Radiologist, MD - 02/12/2024 The [place] [address] Ultrasound Report Signed Patient: ORXANNE MARSHALL DMR#: [id number] : 1990Acct:[id number] Age/Sex: 33 / FADM Date: 02/11/24 Loc: [facility] Attending Dr: Orlin Castro D.O. Ordering Physician: Orlin Castro D.O. Date of Service: 02/11/24 Procedure(s): US OB transvaginal Accession Number(s): [id number] cc: Анна Ha GROCERY STORE MANAGER; Orlin Castro D.O. The [address] [address] Patient Name: ROXANNE MARSHALL MRN: [id number] date: 1990 Sex: F Assigned Patient Location: [facility] Current Patient Location: Accession/Order Number: [id number] Exam Date: 02/11/2024 09:39 Report Date: 02/12/2024 [...] 04:29 Dictated By: Valente Tai M.D. Signed By:02/12/24430 DD/ 8 TD/TT: Slip Cover Estimator: us Generic External Data Provider [facility] Final Result documented in this encounter Visit Diagnoses Not on filedocumented in this encounter Additional Health Concerns Active Problems Noted Date Diagnosed Date OB Reminders 02/11/2024 documented as of this encounter Care Teams Courtesy Van Driver Relationship Specialty Start Date End Date Parag Bradley MD [address] [place] [address] PCP - General Family Medicine 08/14/22 Анна Ha NP [address] [place] [address] [facility] 08/25/23 documented as of this encounter
--- OUTSIDE RECORDS SUMMARY | 2024-09-14 10:48 | XMS_ITS | Encounter Summary ---
Author Organization [facility] Address [address] [place] [address] Care Team Providers Care Clinical Quality Assurance Associate Name Role Phone Parag Bradley MD Primary Care Provider [phone] Анна Ha NP Unavailable [phone] Encounter Details Date Type Department Care Team (Late st Contact Info) Description 09/11/2024 Clinisync Result Encounter [facility] External Department Unsolicited [...] often do you attend chur ch or worship services? More than 4 times per year [...] Recorded Patient Health Questionnaire-2 Score 0 08/06/2024 [facility]at ional Health - [...] in a mcfp (including now)? No 05/19/2023 Housing Stability Vital [...] were you homeless or living in a mcfp (including now)? No 08/31/2024 Estimated Date of [...] EDT Office Visit [facility]CP OB [address] [facility] [place] [address] Orlin Castro DO [address] [place], [place] [address] documented as of this encounter Goals Goal Patient Goal Type Associated Problems Recent Progress Patient-Stated? Author Reminders Care Plan OB Reminders No Open Scheduling, Background documented as of this encounter Procedures Procedure Name Priority Date/Time Associated Diagnosis Comments US OB BPP W NON-STRESS 09/11/2024 2:23 PM EDT documented in this encounter Results * US OB BPP W NON-STRESS (09/11/2024 2:23 PM EDT) Anatomical Region Laterality Modality Other 09/11/2024 2:23 PM EDT Narrative 09/11/2024 2:25 [place] [address] Ultrasound Report Signed Patient: ROXANNE MARSHALL MR#: [id number] : 1990 Acct:[id number] Age/Sex: 34 / F ADM Date: 09/11/24 Loc: [facility] Attending Dr: Orlin Castro D.O. Ordering Physician: Orlin Castro D.O. Date of Service: 09/11/24 Procedure(s): US OB BPP w non-stress Accession Number(s): [id number] cc: Анна Ha HEALTH AND WELLNESS COORDINATOR; Orlin Castro D.O. The [place] [id number] Patient Name: ROXANNE MARSHALL MRN: [id number] date: 1990 Sex: F Assigned Patient Location: [facility] Current Patient Location: Accession/Order Number: [id number] Exam Date: 09/11/2024 14:21 Report Date: 09/11/2024 14:23 At the request of: ORLIN CASTRO DO [...] Sheets M.D. 09/11/2024 2:23 PM Dictation Location: [place] [address] Electronically authenticated by: [id number] Y Date: 09/11/2024 14:23 Dictated By: aJke Sheets M.D. Signed By: 09/11/24 1425 DD/ 142 TD/TT: Career Specialist: Procedure Note Radiology, Radiologist, MD - 09/11/2024 [place] [address] Ultrasound Report Signed Patient: ROXANNE MARSHALL DMR#: [id number] : 1990Acct:[id number] Age/Sex: 34 / FADM Date: 09/11/24 Loc: [facility] Attending Dr: Orlin Castro D.O. Ordering Physician: Orlin Castro D.O. Date of Service: 09/11/24 Procedure(s): US OB BPP w non-stress Accession Number(s): [id number] cc: Анна Ha HEALTH AND WELLNESS COORDINATOR; Orlin Castro D.O. The [place] [address] Patient Name: ROXANNE MARSHALL MRN: [id number] date: 1990 Sex: F Assigned Patient Location: [facility] Current Patient Location: Accession/Order Number: [id number] Exam Date: 09/11/2024 14:21 Report Date: 09/11/2024 14:23 At the request of: ORLIN CASTRO DO Procedure: US OB BPP w non-stress Ultrasound biophysical profile, comparison: 09/09/2024 INDICATION: Abnormal biophysical profile 08/01 COMPARISON: 09/08/2024 FINDINGS: Single live intrauterine gestation. heart rate 147 beats per minutes. Cephalic position. Amnioticfluid index measures 11.6 cm. 6 out of 8 biophysical profile score receiving 0for breathing movements. US/US OB BPP w non-stress IMPRESSION: 6 out of 8 score with score of 0 for breathing motion Impression dictated by: Jake Sheets M.D. 09/11/2024 2:23 PM Dictation Location: [place] [address] Electronically authenticated by: [id number] Y Date: 4:23 Dictated By: Jake Sheets M.D. Signed By:09/11/24 1425 DD/ 1423 TD/TT: Career Specialist: us Generic External Data Provider [facility] Final Result documented in this encounter Visit Diagnoses Not on filedocumented in this encounter Additional Health Concerns Active Problems Noted Date Diagnosed Date OB Reminders 02/11/2024 documented as of this encounter Care Teams Clinical Quality Assurance Associate Relationship Specialty Start Date End Date Parag Bradley MD [address] [place] [address] PCP - General Family Medicine 08/14/22 Анна Ha NP [address] [place] [address] PCP - [facility] 08/25/23 documented as of this encounter
--- OUTSIDE RECORDS SUMMARY | 2024-09-14 10:48 | XMS_ITS | Encounter Summary ---
Author Organization [facility] Address [address] [place] [address] Care Team Providers Care Library Services Dean Name Role Phone Parag Bradley MD Primary Care Provider [phone] Анна Ha NP Unavailable [phone] Encounter Details Date Type Department Care [...] Score 0 08/06/2024 [facility] - Occupational Stress [...] EDT Office Visit [facility] [address] [place] [address] Slava Castro DO [address], [place] [id number] documented as of this encounter Goals Goal Patient Goal Type Associated Problems Recent Progress Patient-Stated? Author Reminders Care Plan OB Reminders No Open Scheduling, Background documented as of this encounter Procedures Procedure Name Priority Date/Time Associated Diagnosis Comments US OB BPP W NON-STRESS 09/09/2024 8:12 AM EDT documented in this encounter Results * US OB BPP W NON-STRESS (09/09/2024 8:12 AM EDT) Anatomical Region Laterality Modality Other 09/09/2024 8:12 AM EDT Narrative 09/09/2024 8:14 [place] [address] Ultrasound Report Signed Patient: ROXANNE MARSHALL MR#: [id number] : 1990 Acct:[id number] Age/Sex: 34 / F ADM Date: 09/08/24 Loc: US Attending Dr: Vidya Jackson Ordering Physician: Vidya Jackson Date of Service: 09/08/24 Procedure(s): US OB BPP w non-stress Accession Number(s): [id number] cc: Анна Ha NP; Vidya Jackson [facility] [place] [id number] Patient Name: ROXANNE MARSHALL MRN: [id number] date: 1990 Sex: F Assigned Patient Location: US Current Patient Location: Accession/Order Number: [id number] Exam Date: 09/09/2024 08:04 Report Date: 09/09/2024 [...] Auguste M.D. 09/09/2024 8:12 AM Dictation Location: [place] [address] Electronically authenticated by: [id number] Y Date: 09/09/2024 08:12 Dictated By: Isatu Auguste M.D. Signed By: 09/09/2414 DD/ 1 TD/TT: Motion Picture Projectionist Apprentice: Procedure Note Radiology, Radiologist, - 09/09/2024 [place] [address] Ultrasound Report Signed Patient: ROXANNE MARSHALL DMR#: [id number] : 1990Acct:[id number] Age/Sex: 34 / FADM Date: 09/08/24 Loc: US Attending Dr: Vidya Jackson Ordering Physician: Vidya Jackson Date of Service: 09/08/24 Procedure(s): US OB BPP w non-stress Accession Number(s): [id number] cc: Анна Ha NP; Vidya Jackson [place] [address] Patient Name: ROXANNE MARSHALL MRN: [id number] date: 1990 Sex: F Assigned Patient Location: Current Patient Location: Accession/Order Number: [id number] Exam Date: 09/09/2024 08:04 Report Date: 09/09/2024 [...] Auguste M.D. 09/09/2024 8:12 AM Dictation Location: [place] [address] Electronically authenticated by: [id number] Y Date: 508:12 Dictated By: Isatu Auguste M.D. Signed By:09/09/24813 DD/ 1 TD/TT: Motion Picture Projectionist Apprentice: us Generic External Data Provider [facility] Final Result documented in this encounter Visit Diagnoses Not on filedocumented in this encounter Additional Health Concerns Active Problems Noted Date Diagnosed Date OB Reminders 02/11/2024 documented as of this encounter Care Teams Library Services Dean Relationship Specialty Start Date End Date Parag Bradley MD [address] [place] [address] PCP - General Family Medicine 08/14/22 Анна Ha NP [address] [place] [address] PCP - [facility] 08/25/23 documented as of this encounter
--- OUTSIDE RECORDS SUMMARY | 2024-09-14 10:48 | XMS_ITS | Clinical Summary ---
Author Organization [facility] Healthcare Address [address] [place] [address] Care Team Providers Care Strategic Buyer Name Role Phone Parag Bradley MD Primary Care Provider [phone] Анна Ha NP Unavailable [phone] Allergies Active Allergy Reactions Criticality Noted Date Comments Other 11/25/2022 Powder on gloves Other Reaction(s): rash/itching Medications MV-Min-Fe Fum-FA-DHA ( 1 PO) Take 1 each by mouth Daily Active aspirin 81 MG EC tablet Take 81 mg by mouth Daily Active omeprazole (PriLOSEC) [address] capsuleIndicat ions:Heartburn during in second trimester ([facility]) Take 1 capsule (20 mg) by mouth in the morning. Take before meals. Do not crush or chew.. 30 capsule 11 05/11/19 25 026 Active traZODone (Desyrel) 100 MG tabletIndicati ons:Primary insomnia Take 1 tablet (100 mg) by mouth at bedtime 30 tablet 2 08/24/19 25 025 Active traZODone (Desyrel) 100 MG tabletIndicati ons:Primary insomnia Take 1 tablet (100 mg) by mouth at bedtime 30 tablet 2 02/25/19 25 025 Discontinued Progesterone Micronized (progesterone, bulk,) powder 02/16/20 24 025 Discontinued(Th erapy completed) Active Problems Problem Noted Date Diagnosed Date Encounter for wellness examination in adult 09/2023 Assessment & Plan (09/07/2024 1:24 PM EDT): Reviewed Ht/Wt/BMI Recommend eye exam yearly Recommend dental exams twice a year Balance work/leisure activities Exercises is recommended most days of the week (appropriate as chronic conditions allow) Follow up yearly and prn Assessment & Plan (09/01/2023 11:00 AM EDT): Reviewed Ht/Wt/BMI Recommend eye exam yearly Recommend dental exams twice a year Balance work/leisure activities Exercises is recommended most days of the week (appropriate as chronic conditions allow) Follow up yearly and prn Depression 09/01/2023 Obesity (BMI 30-39.9) 05/26/2023 Left wrist pain 05/03/2023 Insomnia 02/27/2023 Assessment & Plan (09/07/2024 1:24 PM EDT): Refill trazodone Fu in 6 months Assessment & Plan (09/01/2023 11:01 AM EDT): [...] Encounters Date Type Department Care Team Description 09/14/2024 10:00 AM EDT Routine [facility] OB [address] [place] [address] Slava Castro, DO 38 weeks gestation of ([facility]); Third trimester ([facility]); Antepartum multigravida of advanced maternal age ([facility]); SGA (small for gestational age) ([facility]); History of gestational diabetes 09/14/2024 Bamboo flowsheet N[facility] OB [address] [place] [address] Slava Castro, 09/12/2024 Clinisync Result Encounter NOMS External Department Unsolicited Provider, Generic External Data 09/11/2024 Clinisync Result Encounter NOMS External Department Unsolicited Provider, Generic External Data 09/10/2024 Travel 09/09/2024 11:50 AM EDT Routine [facility]OM[facility] [address] [place] [address] Slava Castro, 37 weeks gestation of ([facility]); Third trimester ([facility]); Antepartum multigravida of advanced maternal age ([facility]); SGA (small for gestational age) ([facility]); History of gestational diabetes 09/09/2024 Clinisync Result Encounter NOMS External Department Unsolicited Provider, Generic External Data 09/09/2024 Clinisync Result Encounter NOMS External Department Unsolicited Provider, Generic External Data 09/08/20[address] [place] [address] Lorin Mustafa LPN 09/07/2024 1:00 PM EDT Office Visit [facility] [address] [place] [address] Анна Ha NP Encounter for wellness examination in adult (Primary Dx); Primary insomnia 09/07/2024 Bamboo flowsheet [facility] [address] [place] [address] Анна Ha NP 09/05/2024 Travel 09/02/2024 10:40 AM EDT Routine [facility] [place] [address] [place] [address] Slava Castro, 36 weeks gestation of ([facility]); Third trimester ([facility]); History of gestational diabetes; Antepartum multigravida of advanced maternal age ([facility]) 09/02/2024 Clinisync Result Encounter NOMS External Department Unsolicited Provider, Generic External Data 09/02/2024 Bamboo flowsheet NOM[facility] [address] [place] [address] Slava Castro DO 09/01/2024 Clinisync Result Encounter NOMS External Department Unsolicited Vidya Jackson PA 09/01/2024 Patient Outreach [facility] [address] [place] [address] Vidya Oliva LPN 08/31/2024 Travel 08/27/2024 Travel 08/25/2024 Clinisync Result Encounter NOMS External Department Unsolicited Provider, Generic External Data 08/23/2024 Refill [facility] [address] [place] [address] Анна Ha NP Primary insomnia 08/22/2024 Refill [facility] [address] [place] [address] Анна Ha NP Primary insomnia 08/18/2024 9:30 AM EDT Routine NOMS [address] [place] [address] Ximena Carver NP Third trimester ([facility]); 34 weeks gestation of ([facility]) 08/18/2024 Clinisync Result Encounter NOMS External Department Unsolicited Provider, Generic External Data 08/18/2024 Bamboo flowsheet NOM[facility] [address] [place] [address] Ximena Carver NP 08/17/2024 Travel 08/13/2024 Clinisync Result Encounter NOMS External Department Unsolicited Provider, Generic External Data 08/11/2024 Clinisync Result Encounter NOMS External Department Unsolicited Vidya Jackson PA 08/06/2024 Patient Outreach [facility] [address] [place] [address] Vidya Oliva LPN 08/04/2024 2:20 PM EDT Routine N[facility] [address] [place] [address] Slava Castro, 32 weeks gestation of ([facility]); Third trimester ([facility]) 08/04/2024 Abstract [facility] [address] [place] [address] Анна Ha NP 08/04/2024 Clinisync Result Encounter NOMS External Department Unsolicited Provider, Generic External Data 08/03/2024 Travel 07/28/2024 Clinisync Result Encounter NOMS External Department Unsolicited Provider, Generic External Data 07/26/2024 Abstract [facility] [address] [place] [address] Slava Castro DO 07/23/2024 Clinisync Result Encounter NOMS External Department Unsolicited Provider, Generic External Data 07/21/2024 2:20 PM EDT Routine [facility] [place] [address] [place] [address] Vidya Jackson PA Third trimester ([facility]); 30 weeks gestation of ([facility]); History of gestational diabetes 07/21/2024 Telephone [address] [address] [place] [address] Lizzy Wood MA 07/17/2024 Clinisync Result Encounter NOMS External Department Unsolicited Provider, Generic External Data 07/14/2024 Travel 07/08/2024 Telephone NOMS [address] [place] [address] Leesa Coon MA 07/07/2024 Patient Outreach [facility] [address] [place] [address] Vidya Oliva LPN 07/06/2024 1:50 PM EDT Routine [facility] [place] [address] Slava Castro DO Third trimester ([facility]); 28 weeks gestation of ([facility]); Elevated glucose tolerance test; Diabetes mellitus screening; SGA (small for gestational age) ([facility]) 07/06/2024 1:30 PM EDT Ancillary Procedure [facility] OB [facility] [place] [address] Antepartum multigravida of advanced maternal age ([facility]) 07/05/2024 Clinisync Result Encounter NOMS External Department Unsolicited Provider, Generic External Data 06/16/2024 1:20 PM EDT Routine N[facility] [place] [address] Ximena Carver NP Second trimester ([facility]); 25 weeks gestation of ([facility]); Screen for STD (sexually transmitted disease); Diabetes mellitus screening; Antepartum multigravida of advanced maternal age ([facility]) 06/16/2024 External Result Encounter NOMS External Department Unsolicited Slava Castro DO 06/16/2024 Bamboo flowsheet NOMS [address] [place] [address] Ximena Carver NP 06/15/2024 Travel from Last 3 Months Immunizations Immunization [...] Questionnaire-2 Score 0 08/06/2024 [facility] Occupational Stress Questionnaire Answer Date [...] in a prison (including now)? No 05/19/2023 Housing Stability Vital Sign Answer Leonidas e Recorded In the last 12 months, was t here a time when you were not able to pay the mortgage or rent on time? No 08/31/2024 In the past 12 months, how m any times have you moved where you were living? 0 08/31/2024 At any time in the past 12 m [facility], were you homeless or living in a prison (including now)? No 08/31/2024 Estimated Date of [...] Pressure 110/70 09/14/2024 9:59 AM EDT Pulse 94 09/07/2024 1:02 PM EDT Temperature 36.7 C (98 F) 09/07/2024 1:02 PM EDT Respiratory Rate 18 09/07/2024 1:02 PM EDT Oxygen Saturation 98% 09/07/2024 1:02 PM EDT Inhaled Oxygen Concentration - - Weight 81.1 kg (178 lb 12.8 oz) 09/14/2024 9:59 AM EDT Height 154.9 cm (5' 1 ) 09/01/2023 10:3 7 AM EDT Body Mass Index 33.78 09/01/2023 10:37 AM EDT Plan of Treatment Upcoming Encounters Date Type Department Care Team (Late st Contact Info) Description 12/15/2024 3:00 PM EDT Office Visit [facility] [address] [place] [address] Slava Castro, DO [address] [place], [place] [address] Health Maintenance Due Date Last Done Comments Cervical Cancer Screening 12/09/2028 HPV/Cotest 12/09/2028 Pap Smear 12/09/2028 12/10/2023, 11/25/2022 Influenza Vaccine Discontinued 12/08/2017 Goals Goal Patient Goal Type Associated Problems Recent Progress Patient-Stated? Author Reminders Care Plan OB Reminders No Open Scheduling, Background Procedures Procedure Name Priority Date/Time Associated Diagnosis Comments POCT URINALYSIS DIPSTICK Routine 09/14/2024 10:04 AM EDT 38 weeks gestation of ([facility]) Third trimester ([facility]) US OB BPP W NON-STRESS 09/12/2024 11:49 AM EDT US OB BPP W NON-STRESS 09/11/2024 2:23 PM EDT POCT URINALYSIS DIPSTICK Routine 09/09/2024 12:09 PM EDT 37 weeks gestation of ([facility]) Third trimester ([facility]) US OB BPP W NON-STRESS 09/09/2024 8:12 AM EDT US OB GROWTH 09/09/2024 8:12 AM EDT POCT URINALYSIS DIPSTICK Routine 09/02/2024 10:53 AM EDT 36 weeks gestation of ([facility]) Third trimester ([facility]) CULTURE, GROUP B STREP WITH SUSCEPTIBLITY Routine 09/02/2024 10:36 AM EDT Third trimester ([facility]) STREP GP B CULTURE+RFLX Routine 09/02/2024 10:35 AM EDT US OB BPP W NON-STRESS 09/01/2024 3:11 PM EDT US OB BPP W NON-STRESS 08/25/2024 11:33 AM EDT US OB BPP W NON-STRESS 08/18/2024 11:48 AM EDT POCT URINALYSIS DIPSTICK Routine 08/18/2024 10:28 AM EDT Third trimester ([facility]) US OB BPP W NON-STRESS 08/13/2024 5:27 PM EDT US OB BPP W NON-STRESS 08/11/2024 12:20 PM EDT POCT URINALYSIS DIPSTICK Routine 08/04/2024 2:36 PM EDT 32 weeks gestation of ([facility]) Third trimester ([facility]) US OB BPP W NON-STRESS 08/04/2024 11:43 AM EDT US OB GROWTH 07/28/2024 10:48 AM EDT GLUCOSE TOLERANCE 3 HOUR Routine 07/23/2024 9:09 AM EDT GLUCOSE 1 HOUR Routine 07/17/2024 9:48 AM EDT POCT URINALYSIS DIPSTICK Routine 07/06/2024 2:18 PM EDT Third trimester ([facility]) US OB FOLLOW UP TRANSABDOMINAL APPROACH Routine 07/06/2024 2:04 PM EDT Antepartum multigravida of advanced maternal age ([facility]) GLUCOSE 1 HOUR Routine 07/05/2024 10:48 AM EDT ALL CBC WITH AUTO DIFF Routine 10:48 AM EDT RECURRENT VAGINITIS (HTRX) Routine 06/16/2024 2:27 PM EDT POCT URINALYSIS DIPSTICK Routine 06/16/2024 1:50 PM EDT Second trimester ([facility]) PAP SMEAR Routine 12/10/2023 12:00 AM EDT from Last 3 Months or Most Recently Relevant to Health Maintenance Results * (ABNORMAL) POCT urinalysis dipstick manually resulted (09/14/2024 10:04 AM EDT) Only the most recent of7 resultswithin the time period is included. Color, [...] Positive Urine 09/14/2024 10:0 4 AM EDT [facility] DO POINT OF CARE TEST ENTER/EDIT OR DERABLES Final Result * US OB BPP W NON-STRESS (09/12/2024 11:49 AM EDT) Only the most recent of9 resultswithin the time period is included. Anatomical Region Laterality Modality Other 09/12/2024 11:4 9 AM EDT Narrative 09/12/2024 11:52 AM EDT [place] [id number] Ultrasound Report Signed Patient: ROXANNE MARSHALL MR#: [id number] : 1990 Acct:[id number] Age/Sex: 34 / F ADM Date: 09/12/24 Loc: [facility]O Attending Dr: Radha Chi Ordering Physician: Radha Chi Date of Service: 09/12/24 Procedure(s): US OB BPP w non-stress Accession Number(s): [id number] cc: Анна Ha NP; Radha Chi [address] [address] Patient Name: ROXANNE MARSHALL MRN: [id number] date: 1990 Sex: F Assigned Patient Location: [facility] Current Patient Location: Accession/Order Number: [id number] Exam Date: 09/12/2024 11:48 Report Date: 09/12/2024 11:49 At the request of: RADHA CHI Procedure: US OB BPP w non-stress Biophysical profile. Reason for exam: Repeat BPP. COMPARISON: BPP 09/11/2024. TECHNIQUE: Transabdominal imaging of the gravid uterus was obtained. FINDINGS: The mold hoister reports a BPP of 8 out of 8. LIVE is normal at 12.7 cm. heart rate 126 bpm. US/US OB BPP w non-stress IMPRESSION: BPP 8 out of 8. Impression dictated by: Avery Ram Jr., D.O. 09/12/2024 11:49 AM Dictation Location: [facility] Electronically authenticated by: [id number] Y Date: 09/12/2024 11:49 Dictated By: Avery Ram M.D. Signed By: 09/12/24 1152 DD/ 1149 TD/TT: Emergency Medcl Emt: Procedure Note Radiology, Radiologist, MD - 09/12/2024 [place] [address] Ultrasound Report Signed Patient: RXOANNE MARSHALL DMR#: [id number] : 1990Acct:[id number] Age/Sex: 34 / FADM Date: 09/12/24 Loc: [facility]BCO Attending Dr: Radha Chi Ordering Physician: Radha Chi Date of Service: 09/12/24 Procedure(s): US OB BPP w non-stress Accession Number(s): [id number] cc: Анна Ha SENIOR TABLEAU DEVELOPER; Radha Chi The [address] [address] Patient Name: ROXANNE MARSHALL MRN: [id number] date: 1990 Sex: F Assigned Patient Location: [facility] Current Patient Location: Accession/Order Number: [id number] Exam Date: 09/12/2024 11:48 Report Date: 09/12/2024 11:49 At the request of: RADHA CHI Procedure: US OB BPP w non-stress Biophysical profile. Reason for exam: Repeat BPP. COMPARISON: BPP 09/11/2024. TECHNIQUE: Transabdominal imaging of the gravid uterus was obtained. FINDINGS: The mold hoister reports a BPP of 8 out of 8. LIVE is normal at12.7 cm. heart rate 126 bpm. US/US OB BPP w non-stress IMPRESSION: BPP 8 out of 8. Impression dictated by: Avery Ram Jr., D.O. 09/12/2024 11:49 AM Dictation Location: [facility] Electronically authenticated by: [id number] Y Date: 1:49 Dictated By: Avery Ram M.D. Signed By:09/12/24 1152 DD/ 1149 TD/TT: Emergency Medcl Emt: us Generic External Data Provider [facility] Final Result * US OB GROWTH (09/09/2024 8:12 AM EDT) Only the most recent of2 resultswithin the time period is included. Anatomical Region Laterality Modality Other 09/09/2024 8:12 AM EDT Narrative 09/09/2024 8:14 [place] [address] Ultrasound Report Signed Patient: ROXANNE MARSHALL MR#: [id number] : 1990 Acct:[id number] Age/Sex: 34 / F ADM Date: 09/08/24 Loc: US Attending Dr: Vidya Jackson Ordering Physician: Vidya Jackson Date of Service: 09/08/24 Procedure(s): US OB growth Accession Number(s): [id number] cc: Анна Ha NP; Vidya Jackson The [address] [address] Patient Name: ROXANNE MARSHALL MRN: [id number] date: 1990 Sex: F Assigned Patient Location: [facility] Current Patient Location: Accession/Order Number: [id number] Exam Date: 09/09/2024 08:04 Report Date: 09/09/2024 [...] Auguste M.D. 09/09/2024 8:12 AM Dictation Location: [place] [address] Electronically authenticated by: [id number] Y Date: 09/09/2024 08:12 Dictated By: Isatu Auguste M.D. Signed By: 09/09/2414 DD/ 1 TD/TT: Emergency Medcl Emt: Procedure Note Radiology, Radiologist, - 09/09/2024 The [place] [id number] Ultrasound Report Signed Patient: ROXANNE MARSHALL DMR#: [id number] : 1990Acct:[id number] Age/Sex: 34 / FADM Date: 09/08/24 Loc: US Attending Dr: Vidya Jackson Ordering Physician: Vidya Jackson Date of Service: 09/08/24 Procedure(s): US OB growth Accession Number(s): [id number] cc: Анна Ha NP; Vidya Jackson The [place] [address] Patient Name: ROXANNE MARSHALL MRN: [id number] date: 1990 Sex: F Assigned Patient Location: [facility] Current Patient Location: Accession/Order Number: [id number] Exam Date: 09/09/2024 08:04 Report Date: 09/09/2024 [...] Auguste M.D. 09/09/2024 8:12 AM Dictation Location: [place] [address] Electronically authenticated by: [id number] Y Date: 508:12 Dictated By: Isatu Auguste M.D. Signed By:09/09/24813 DD/ 1 TD/TT: Emergency Medcl Emt: Generic External Data Provider [facility] Final Result * CULTURE, GROUP B STREP WITH SUSCEPTIBLITY (09/02/2024 10:36 AM EDT) Swab 09/02/2024 10:3 6 AM EDT Slava Castro DO LAB BLOOD ORDERABLES Final Resul t EXTERNAL LAB * STREP GP B CULTURE+RFLX (09/02/2024 10:35 AM EDT) STREP GP B CULTURE+RFLX Strep Gp B Culture+Rflx [facility] STREP GP B CULTURE+RFLX Negative [facility] STREP GP B CULTURE+RFLX Centers for Disease Control and Prevention (CDC) and [facility] STREP GP B CULTURE+RFLX [employer] [facility] STREP [...] [facility] STREP GP B CULTURE+RFLX Performed at: [facility] STREP GP B CULTURE+RFLX [address] [place], [place] [id number] [facility] STREP GP B CULTURE+RFLX Chemical Inspector: Tony Bynum PhD, Phone: [phone] [facility] 09/02/2024 10:3 5 AM EDT 09/02/2024 8:46 PM EDT Narrative [facility] - 09/07/2024 4:09 PM EDT Generic External Data Provider LAB BLOOD ORDERAB LES Final Result [facility] * (ABNORMAL) GLUCOSE TOLERANCE 3 HOUR (07/23/2024 9:09 AM EDT) [facility] GLUCOSE TOLERANCE 3 HOUR (H) mg/dL [facility] Comment: GLU FAST 97H (<95) Col: 07/23/24 0909 GLU 1HR 151 (<180) Col: 07/23/24 1013 GLU 2HR 151 (<155) Col: 07/23/24 1113 GLU 3HR 123 (<140) Col: 07/23/24 1213 07/23/2024 9:09 AM EDT 07/23/2024 9:14 AM EDT [facility]ative [facility] 07/23/2024 12:46 PM EDT us Slava Gloria DO LAB BLOOD ORDERABLES Final Resul t Performing Organization Address [facility] de Phone Number [facility] * (ABNORMAL) GLUCOSE 1 HOUR (07/17/2024 9:48 AM EDT) Only the most recent of2 resultswithin the time period is included. GLUCOSE 1 HOUR 162(H) <130 mg/dL [facility] 07/17/2024 9:48 AM EDT 07/17/2024 9:49 AM EDT Narrative [facility] - 07/17/2024 10:52 AM EDT us Slava Gloria DO LAB BLOOD ORDERABLES Final Resul t Performing Organization Address [facility] de Phone Number [facility] * US OB follow up transabdominal [...] II, MD, PHD at 07-Jul-2024 10:00:26 AM [facility] Procedure Note Tabitha Campbell MD - [...] signed by TABITHA CAMPBELL II, MD, PHD [id number] 10:00:26 AM [facility] us Slava Gloria DO IMG OB US PROCEDURES Final Resul t * (ABNORMAL) ALL CBC WITH AUTO DIFF (07/05/2024 10:48 AM EDT) [facility] TB WBC 7.4 4.0 - 11.0 10 [...] - 07/05/2024 10:58 AM EDT us Ximena Mehul SENIOR TABLEAU DEVELOPER [facility] Final Result [facility] * RECURRENT VAGINITIS (HTRX) (06/16/2024 2:27 PM EDT) [facility] ATOPOBIUM VAGINAE 0.000 19.961 - 24.689 ppm 06/17/2024 8:02 AM EDT [facility] ATOPOBIUM VAGINAE Not Detected 19.961 - 24.689 ppm 06/17/2024 8:02 AM EDT [facility] BVAB 2,3 (BACTERIAL VAGINOSIS ASSOCIATED BACTERIA 2, 3); MOBILUNCUS SPP 0.000 19.961 - 24.689 ppm 06/17/2024 8:02 AM EDT [facility] BVAB 2,3 (BACTERIAL VAGINOSIS ASSOCIATED BACTERIA 2, 3); MOBILUNCUS SPP Not Detected 19.961 - 24.689 ppm 06/17/2024 8:02 AM EDT [facility] RANJANA ALBICANS, PARAPSILOSIS, TROPICALIS 0.000 19.961 - 30.770 ppm 06/17/2024 8:02 AM EDT [facility] RANJANA ALBICANS, PARAPSILOSIS, TROPICALIS Not Detected 19.961 - 30.770 ppm 06/17/2024 8:02 AM EDT [facility] RANJANA GLABRATA 0.000 23.000 - 32.138 ppm 06/17/2024 8:02 AM EDT [facility] RANJANA GLABRATA Not Detected 23.000 - 32.138 ppm 06/17/2024 8:02 AM EDT [facility] RANJANA KRUSEI 0.000 23.000 - 32.271 ppm 06/17/2024 8:02 AM EDT [facility] RANJANA KRUSEI Not Detected 23.000 - 32.271 ppm 06/17/2024 8:02 AM EDT [facility] CHLAMYDIA TRACHOMATIS 0.000 23.000 - 31.467 ppm 06/17/2024 8:02 AM EDT [facility] CHLAMYDIA TRACHOMATIS Not Detected 23.000 - 31.467 ppm 06/17/2024 8:02 AM EDT [facility] [place] GARDNERELLA VAGINALIS 0.000 19.961 - 24.689 ppm 06/17/2024 8:02 AM EDT [facility] GARDNERELLA VAGINALIS Not Detected 19.961 - 24.689 ppm 06/17/2024 8:02 AM EDT [facility] MEGASPHAERA (TYPES 1, 2) 0.000 19.961 - 24.689 ppm 06/17/2024 8:02 AM EDT [facility] MEGASPHAERA (TYPES 1, 2) Not Detected 19.961 - 24.689 ppm 06/17/2024 8:02 AM EDT [facility] NEISSERIA GONORRHOEAE 0.000 23.000 - 32.117 ppm 06/17/2024 8:03 AM EDT [facility] NEISSERIA GONORRHOEAE Not Detected 23.000 - 32.117 ppm 06/17/2024 8:03 AM EDT [facility] TRICHOMONAS VAGINALIS 0.000 23.000 - 32.119 ppm 06/17/2024 8:02 AM EDT [facility] TRICHOMONAS VAGINALIS Not Detected 23.000 - 32.119 ppm 06/17/2024 8:02 AM EDT [facility] MYCOPLASMA GENITALIUM 0.000 19.961 - 24.689 ppm 06/17/2024 8:02 AM EDT [facility] MYCOPLASMA GENITALIUM Not Detected 19.961 - 24.689 ppm 06/17/2024 8:02 AM EDT [facility] Tissue 06/16/2024 2:27 PM EDT 06/17/2024 1:54 AM EDT us Slava Castro DO LAB BLOOD ORDERABLES Final Resul t [facility] [address] [place] [address] * Pap Smear (12/10/2023 12:00 AM EDT) Swab Cervical swab / Unknown us Slava Castro DO LAB CYTOLOGY ORDERABLES Final Re sult EXTERNAL LAB from Last 3 Months or Most Recently Relevant to Health Maintenance Additional Health Concerns Active Problems Noted Date Diagnosed Date OB Reminders 02/11/2024 Insurance [employer] Care Teams Strategic Buyer Relationship Specialty Start Date End Date Parag Bradley MD [address] [place] [phone] PCP - General Family Medicine 08/14/22 Анна Ha NP [address] [place] [address] PCP - [facility] 08/25/23
--- OUTSIDE RECORDS SUMMARY | 2024-09-14 10:48 | XMS_ITS | Encounter Summary ---
Author Organization [facility] Address [address] [place] [address] Care Team Providers Care Fishing Vessel Captain Name Role Phone Parag Bradley MD Primary Care Provider Анна Ha NP Unavailable [phone] Encounter Details Date Type Department Care [...] Recorded Patient Health Questionnaire-2 Score 0 08/06/2024 [facility] - Occupational [...] time in the past 12 m [facility], were you homeless or living [...] OB [address] [place] [address] Slava Castro, DO [address] [facility] [place] [address] documented as of this encounter Goals Goal Patient Goal Type Associated Problems Recent Progress Patient-Stated? Author Reminders Care Plan OB Reminders No Open Scheduling, Background documented as of this encounter Visit Diagnoses Not on filedocumented in this encounter Additional Health Concerns Active Problems Noted Date Diagnosed Date OB Reminders 02/11/2024 documented as of this encounter Care Teams Fishing Vessel Captain Relationship Specialty Start Date End Date Parag Bradley MD [address] [place] [address] PCP - General Family Medicine 08/14/22 Анна Ha NP [address] [place] [address] PCP - [facility] 08/25/23 documented as of this encounter
--- OUTSIDE RECORDS SUMMARY | 2024-09-14 10:48 | XMS_ITS | Encounter Summary ---
Author Organization [facility] Address [address] [place] [address] Care Team Providers Care Reimbursement Representative Name Role Phone Parag Bradley MD Primary Care Provider Анна Ha NP Unavailable [phone] Encounter Details Date Type Department Care Team (Late st Contact Info) Description 07/26/2024 Abstract [facility] OB [address] [place] [address] Slava Castro, DO [address] [place], [facility] Social History Tobacco Use Types Packs/Day Years [...] Recorded Patient Health Questionnaire-2 Score 0 06/08/2024 [facility] of Occupat ional [facility] - Occupational Stress Questionnaire Answer Date [...] EDT Office Visit [facility] OB [address] [facility] [place] [address] Slava Castro DO [address] [facility] [place] [address] documented as of this encounter Goals Goal Patient Goal Type Associated Problems Recent Progress Patient-Stated? Author Reminders Care Plan OB Reminders No Open Scheduling, Background documented as of this encounter Visit Diagnoses Not on filedocumented in this encounter Additional Health Concerns Active Problems Noted Date Diagnosed Date OB Reminders 02/11/2024 documented as of this encounter Care Teams Reimbursement Representative Relationship Specialty Start Date End Date Parag Bradley MD [address] [place] [address] PCP - General Family Medicine 08/14/22 Анна Ha NP [address] [place] [address] PCP - [facility] 08/25/23 documented as of this encounter
--- OUTSIDE RECORDS SUMMARY | 2024-09-14 10:48 | XMS_ITS | Encounter Summary ---
Author Organization [facility] Address [address] [place] [address] Care Team Providers Care Tong Setter Name Role Phone Parag Bradley MD Primary Care Provider Анна Ha NP Unavailable [phone] Encounter Details Date Type Department Care Team (Late st Contact Info) Description 02/11/2024 Abstract [facility] OB [address] [place] [address] Slava Castro, DO [address] [place], [facility]11 Social History Tobacco Use Types Packs/Day [...] any clubs o r organizations such as advent groups, unions, fraternal or athletic groups, or [...] Recorded Patient Health Questionnaire-2 Score 1 09/01/2023 [facility] of Occupat ional [facility] - Occupational Stress Questionnaire [...] EDT Office Visit [facility] BCP OB [address] [place] [address] Slava Castro DO [address] [facility] [place] [address] documented as of this encounter Goals Goal Patient Goal Type Associated Problems Recent Progress Patient-Stated? Author Reminders Care Plan OB Reminders No Open Scheduling, Background documented as of this encounter Visit Diagnoses Not on filedocumented in this encounter Additional Health Concerns Active Problems Noted Date Diagnosed Date OB Reminders 02/11/2024 documented as of this encounter Care Teams Tong Setter Relationship Specialty Start Date End Date Parag Bradley MD [address] [place] [address] PCP - General Family Medicine 08/14/22 Анна Ha NP [address] [place] [address] PCP - [facility] 08/25/23 documented as of this encounter
--- OUTSIDE RECORDS SUMMARY | 2024-09-14 10:49 | XMS_ITS | Clinical Summary ---
Author Organization [facility] Address [address] [place] [address] Care Team Providers Care Neuropathologist Name Role Phone Unavailable Primary Care Provider [...]
--- OUTSIDE RECORDS SUMMARY | 2024-09-14 10:49 | XMS_ITS | Encounter Summary ---
Author Organization [facility] Address [address] [place] [address] Care Team Providers Care Angle Shear Operator Name Role Phone Parag Bradley MD Primary Care Provider Анна Ha NP Unavailable [phone] Encounter Details Date Type Department Care Team (Late st Contact Info) Description 03/04/2024 Abstract [facility] OB [address] [place] [address] Slava Castro, DO [address] [place], [facility]11 Social History Tobacco Use Types Packs/Day Years [...] often do you attend chur ch or sikhism services? More than 4 times [...] Recorded Patient Health Questionnaire-2 Score 1 09/01/2023 [facility] of Occupat ional [facility] - Occupational Stress Questionnaire Answer Date [...] EDT Office Visit [facility] BCP OB [address] [facility] [address] Slava Castro DO [address] [facility] [place] [address] documented as of this encounter Goals Goal Patient Goal Type Associated Problems Recent Progress Patient-Stated? Author Reminders Care Plan OB Reminders No Open Scheduling, Background documented as of this encounter Visit Diagnoses Not on filedocumented in this encounter Additional Health Concerns Active Problems Noted Date Diagnosed Date OB Reminders 02/11/2024 documented as of this encounter Care Teams Angle Shear Operator Relationship Specialty Start Date End Date Parag Bradley MD [address] [place] [address] PCP - General Family Medicine 08/14/22 Анна Ha NP [address] [place] [address] PCP - [facility] 08/25/23 documented as of this encounter
--- OUTSIDE RECORDS SUMMARY | 2024-09-14 10:49 | XMS_ITS | Encounter Summary ---
Author Organization [facility] Address [address] [place] [address] Care Team Providers Care Crab Picker Name Role Phone Parag Bradley MD Primary Care Provider Анна Ha NP Unavailable [phone] Encounter Details Date Type Department Care Team (Late st Contact Info) Description 03/01/2024 Abstract [facility] OB [address] [place] [address] Slava Castro, DO [address] [place], [facility]11 Social History Tobacco Use Types [...] any clubs o r organizations such as orthodoxy groups, unions, fraternal or athletic groups, or [...] Recorded Patient Health Questionnaire-2 Score 1 09/01/2023 [facility] of Occupat ional [facility] - Occupational [...] EDT Office Visit [facility] BCP OB [address] [facility] [place] [address] Slava Castro DO [address] [facility] [place] [address] documented as of this encounter Goals Goal Patient Goal Type Associated Problems Recent Progress Patient-Stated? Author Reminders Care Plan OB Reminders No Open Scheduling, Background documented as of this encounter Visit Diagnoses Not on filedocumented in this encounter Additional Health Concerns Active Problems Noted Date Diagnosed Date OB Reminders 02/11/2024 documented as of this encounter Care Teams Crab Picker Relationship Specialty Start Date End Date Parag Bradley MD [address] [place] [address] PCP - General Family Medicine 08/14/22 Анна aH NP [address] [place] [address] PCP - [facility] 08/25/23 documented as of this encounter
--- OUTSIDE RECORDS SUMMARY | 2024-09-14 10:49 | XMS_ITS | Encounter Summary ---
Author Organization [facility] Address [address] [place] [address] Care Team Providers Care Information Management Specialist Name Role Phone Parag Bradley MD Primary Care Provider [phone] Анна Ha DOCUMENT CONTROL SPECIALIST Unavailable [phone] Encounter Details Date Type Department Care Team (Late Contact Info) Description 03/04/2023 Abstract [facility] [address] [place] [address] Анна Ha, DOCUMENT CONTROL SPECIALIST [address] [place] [address] Social History Tobacco Use Types Packs/Day Years [...] [facility] OB [address] [place] [address] Slava Castro DO [address] [place] [address] documented as of this encounter Visit Diagnoses Not on filedocumented in this encounter Care Teams Information Management Specialist Relationship Specialty Start Date End Date Parag Bradley MD [address] [place] [address] PCP - General Family Medicine 08/14/22 Анна Ha NP [address] [place] [address] PCP - [facility] 08/25/23 documented as of this encounter
--- OUTSIDE RECORDS SUMMARY | 2024-09-14 10:49 | XMS_ITS | Encounter Summary ---
Author Organization [facility] Address [address] [place] [address] Care Team Providers Care Cab Station Attendant Name Role Phone Parag Bradley MD Primary Care Provider [phone] Анна Ha NP Unavailable [phone] Encounter Details Date Type Department Care Team (Late st Contact Info) Description 09/01/2024 Clinisync Result Encounter [facility] External Department Unsolicited Vidya Jackson PA [address] [place] [address] [place] [address] Social History Tobacco Use Types Packs/Day Years [...] Questionnaire-2 Score 0 08/06/2024 [facility] Questionnaire Answer Date Recorded [...] any time in the past [address] [facility], were you homeless or living in [...] EDT Office Visit [facility] BCP OB [address] [facility] [place] [address] Slava Castro, [address] [place], [place] [address] documented as of this encounter Goals Goal [...] EDT Narrative 09/01/2024 3:13 [place] [address] Ultrasound Report Signed Patient: ROXANNE MARSHALL MR#: [id number] : 1990 Acct:[id number] Age/Sex: 34 / F ADM Date: 09/01/24 Loc: US Attending Dr: Vidya Jackson Ordering Physician: Vidya Jackson Date of Service: 09/01/24 Procedure(s): US OB BPP w non-stress Accession Number(s): [id number] cc: Анна Ha NP; Vidya Jackson The [address] [address] Patient Name: ROXANNE MARSHALL MRN: [id number] date: 1990 Sex: F Assigned Patient Location: US Current Patient Location: Accession/Order Number: [id number] Exam Date: 09/01/2024 15:10 Report Date: 09/01/2024 [...] Perez M.D. 09/01/2024 3:11 PM Dictation Location: [place] Electronically authenticated by: [id number] Y Date: 09/01/2024 15:11 Dictated By: Emilio Perez D.O. Signed By: 09/01/241512 DD/ 10 TD/TT: Bat Boy/Girl: Procedure Note Radiology, Radiologist, - 09/01/2024 [place] [address] Ultrasound Report Signed Patient: ROXANNE MARSHALL DMR#: [id number] : 1990Acct:[id number] Age/Sex: 34 / FADM Date: 09/01/24 Loc: US Attending Dr: Vidya Jackson Ordering Physician: Vidya Jackson Date of Service: 09/01/24 Procedure(s): US OB BPP w non-stress Accession Number(s): [id number] cc: Анна Ha REVENUE ENFORCEMENT COLLECTION AGENT; Vidya Jackson [place] [id number] Patient Name: ROXANNE MARSHALL MRN: [id number] date: 1990 Sex: F Assigned Patient Location: US Current Patient Location: Accession/Order Number: [id number] Exam Date: 09/01/2024 15:10 Report Date: 09/01/2024 [...] Perez M.D. 09/01/2024 3:11 PM Dictation Location: [place] Electronically authenticated by: [id number] Y Date: 5:11 Dictated By: Emilio Perez D.O. Signed By:09/01/241512 DD/ TD/TT: Bat Boy/Girl: us Vidya DESAI [facility] Final Result documented in this encounter Visit Diagnoses Not on filedocumented in this encounter Additional Health Concerns Active Problems Noted Date Diagnosed Date OB Reminders 02/11/2024 documented as of this encounter Care Teams Cab Station Attendant Relationship Specialty Start Date End Date Parag Bradley MD [address] [place] [address] PCP - General Family Medicine 08/14/22 Анна Ha NP [address] [place] [address] PCP - [facility] 08/25/23 documented as of this encounter
--- OUTSIDE RECORDS SUMMARY | 2024-09-14 10:49 | XMS_ITS | Encounter Summary ---
Author Organization [facility] Address [address] [place] [address] Care Team Providers Care Emissions Repair Technician Name Role Phone Parag Bradley MD Primary Care Provider [phone] Анна Ha NP Unavailable [phone] Encounter Details Date Type Department Care Team (Late st Contact Info) Description 09/01/2024 Patient Outreach [facility] POPULATION HEALTH [address] [place] [address] Vidya Oliva, SURGICAL FIRST ASSISTANT [address] [place], [place] [address] Social History Tobacco Use Types Packs/Day Years [...] week 08/31/2024 How often do you attend [facility] or temple services? More than 4 times [...] Recorded Patient Health Questionnaire-2 Score 0 08/06/2024 [facility] of Occupat ionsc Health - Occupational Stress Questionnaire Answer Date [...] in a long-term (including now)? No 05/19/2023 Housing Stability Vital Sign Answer Leonidas e Recorded In the last 12 months, was t here a time when you were not able to pay the mortgage or rent on time? No 08/31/2024 In the past 12 months, how m any times have you moved where you were living? 0 08/31/2024 At any time in the past 12 m [facility], were you homeless or living in a long-term (including now)? No 08/31/2024 Estimated Date of [...] EDT Office Visit [facility] BCP OB [address] [facility] [place] [address] Slava Castro, [address] [facility] [place] [address] documented as of this encounter Goals Goal Patient Goal Type Associated Problems Recent Progress Patient-Stated? Author Reminders Care Plan OB Reminders No Open Scheduling, Background documented as of this encounter Visit Diagnoses Not on filedocumented in this encounter Additional Health Concerns Active Problems Noted Date Diagnosed Date OB Reminders 02/11/2024 documented as of this encounter Care Teams Emissions Repair Technician Relationship Specialty Start Date End Date Parag Bradley MD [address] [place] [address] PCP - General Family Medicine 08/14/22 Анна Ha NP [address] [place] [address] PCP - [facility] 08/25/23 documented as of this encounter
--- OUTSIDE RECORDS SUMMARY | 2024-09-14 10:49 | XMS_ITS | Encounter Summary ---
Author Organization [facility] Address [address] [place] [address] Care Team Providers Care Post Splitter Name Role Phone Parag Bradley MD Primary Care Provider [phone] Анна Ha NP Unavailable [phone] Encounter Details Date Type Department Care Team (Late st Contact Info) Description 09/02/2024 Bamboo flowsheet [facility] BCP OB [address] [place] [address] Slava Castro, DO [address] [place], [place] [address] Social History Tobacco Use Types Packs/Day Years [...] Recorded Patient Health Questionnaire-2 Score 0 08/06/2024 [facility] of Occupat ional Health - [...] any time in the past 12 m [facility], were you homeless or [...] EDT Office Visit [facility] BCP OB [address] [facility] [place] [address] Slava Castro, DO [address] [facility] [place] [address] documented as of this encounter Goals Goal Patient Goal Type Associated Problems Recent Progress Patient-Stated? Author Reminders Care Plan OB Reminders No Open Scheduling, Background documented as of this encounter Visit Diagnoses Not on filedocumented in this encounter Additional Health Concerns Active Problems Noted Date Diagnosed Date OB Reminders 02/11/2024 documented as of this encounter Care Teams Post Splitter Relationship Specialty Start Date End Date Parag Bradley MD [address] [place] [address] PCP - General Family Medicine 08/14/22 Анна Ha NP [address] [place] [address] PCP - [facility] 08/25/23 documented as of this encounter
[2024-09-14 13:16] LABS: Glucose Urine UA NEGATIVE (NEGATIVE)
--- NOTE | 2024-09-14 13:17 | PC.NURSE ---
states ctxs are about same intensity as when arrived, rates 7
--- NOTE | 2024-09-14 15:37 | PC.NURSE ---
on birthing , Dr Castro calls in and states will be in around 6 pm to assess pt
--- OUTSIDE RECORDS SUMMARY | 2024-09-14 16:02 | XMS_ITS | Encounter Summary ---
Author Organization [facility] Address [address] [place] [address] Care Team Providers Care Staff Development Coordinator Name Role Phone Parag Bradley MD Primary Care Provider [phone] Анна Ha NP Unavailable [phone] Encounter Details Date Type Department Care [...] Recorded Patient Health Questionnaire-2 Score 0 05/26/2023 [facility] of Occupat ional [facility] - Occupational Stress Questionnaire Answer Date [...] [address] [facility] [place] [address] Orlin Castro, [address] [place] [address] documented as of this encounter Procedures Procedure Name Priority Date/Time Associated Diagnosis Comments US OB TRANSVAGINAL 06/20/2023 12 :10 PM EDT documented in this encounter Results * US OB TRANSVAGINAL (06/20/2023 12:10 PM EDT) Anatomical Region Laterality Modality Other 06/20/2023 12:1 0 PM EDT Narrative 06/20/2023 12:12 [place] [address] Ultrasound Report Signed Patient: ROXANNE MARSHALL MR#: [id number] : 1990 Acct:[id number] Age/Sex: 32 / F ADM Date: 06/20/23 Loc: [facility] Attending Dr: Orlni Castro D.O. Ordering Physician: Orlin Castro D.O. Date of Service: 06/20/23 Procedure(s): US OB transvaginal Accession Number(s): [id number] cc: Анна Ha NP; Orlin Castro D.O. [address] [address] Patient Name: ROXANNE MARSHALL MRN: [id number] date: 1990 Sex: F Assigned Patient Location: [facility] Current Patient Location: [facility] Accession/Order Number: [id number] Exam Date: 06/20/2023 08:31 Report Date: 06/20/2023 [...] Signed By: 06/20/23 1212 DD/ 1210 TD/TT: Planting Machine Operator: Procedure Note Radiology, Radiologist, MD - 06/20/2023 [place] [address] Ultrasound Report Signed Patient: ROXANNE MARSHALL DMR#: [id number] : 1990Acct:[id number] Age/Sex: 32 / FADM Date: 06/20/23 Loc: [facility] Attending Dr: Orlin Castro D.O. Ordering Physician: Orlin Castro D.O. Date of Service: 06/20/23 Procedure(s): US OB transvaginal Accession Number(s): [id number] cc: Анна Ha WRINGER MACHINE OPERATOR; Orlin Castro D.O. The [place] [id number] Patient Name: ROXANNE MARSHALL MRN: [facility]:[id number] date: 1990 Sex: F Assigned Patient Location: [facility] Current Patient Location: [facility] Accession/Order Number: [id number] Exam Date: 06/20/2023 08:31 Report Date: 06/20/2023 [...] M.D. Signed By:06/20/23 1212 DD/ 1210 TD/TT: Planting Machine Operator: us Generic External Data Provider [facility] Final Result documented in this encounter Visit Diagnoses Not on filedocumented in this encounter Care Teams Staff Development Coordinator Relationship Specialty Start Date End Date Parag Bradley MD [address] [place] [address] PCP - General Family Medicine 08/14/22 Анна Ha NP [address] [place] [address] [facility] 08/25/23 documented as of this encounter
--- OUTSIDE RECORDS SUMMARY | 2024-09-14 16:02 | XMS_ITS | Encounter Summary ---
Author Organization [facility] Address [address] [place] [address] Care Team Providers Care Circuit Judge Name Role Phone Parag Braldey MD Primary Care Provider [phone] Анна Ha NP Unavailable [phone] Encounter Details Date Type Department Care Team (Late st Contact Info) Description 09/14/2024 Clinisync Result Encounter [facility] External Department Unsolicited Slaav Castro, DO [address] [facility] [place] [address] Social History Tobacco Use Types Packs/Day Years [...] Recorded Patient Health Questionnaire-2 Score 0 08/06/2024 [facility] of Occupat ional Health - [...] any time in the past 12 m [facility], were you homeless or [...] EDT Office Visit [facility] BCP OB [address] [facility] [place] [address] Slava Castro, [address] [place] [address] documented as of this encounter Goals Goal Patient Goal Type Associated Problems Recent Progress Patient-Stated? Author Reminders Care Plan OB Reminders No Open Scheduling, Background documented as of this encounter Procedures Procedure Name Priority Date/Time Associated Diagnosis Comments TB[facility] UA (CLEAN/CATCH) SENIOR USER EXPERIENCE ARCHITECT/MICRO IF IND. Routine 09/14/2024 12:40 PM EDT documented in this encounter Results * [facility] UA (CLEAN/CATCH) SENIOR USER EXPERIENCE ARCHITECT/MICRO IF IND. (09/14/2024 12:40 PM EDT) COLOR URINE LT. YELLOW YELLOW TBH CLARITY URINE CLEAR CLEAR [facility] SPECIFIC GRAVITY URINE 1.010 1.005 - 1.025 TBH PH URINE 7.0 5.0 - 9.0 TBH PROTEIN URINE NEGATIVE NEG/TRACE mg/dL TBH GLUCOSE URINE UA NEGATIVE NEGATIVE mg/dL TBH BILIRUBIN URINE NEGATIVE NEGATIVE TBH KETONES URINE NEGATIVE NEGATIVE mg/dL TBH BLOOD URINE NEGATIVE NEGATIVE TBH NITRITE URINE NEGATIVE NEGATIVE TBH UROBILINOGEN URINE 0.2 0.2 - 1.0 EU/dL TBH LEUKOCYTE ESTERASE URINE NEGATIVE NEGATIVE TBH URINE MICROSCOPIC INDICATED NO TBH 09/14/2024 12:4 0 PM EDT 09/14/2024 1:11 PM EDT Narrative [facility] - 09/14/2024 1:18 PM EDT us Slava Gloria DO [facility] Final Result [facility] documented in this encounter Visit Diagnoses Not on filedocumented in this encounter Additional Health Concerns Active Problems Noted Date Diagnosed Date OB Reminders 02/11/2024 documented as of this encounter Care Teams Circuit Judge Relationship Specialty Start Date End Date Parag Bradley MD [address] [place] [address] PCP - General Family Medicine 08/14/22 Анна Ha NP [address] [place] [address] [facility] 08/25/23 documented as of this encounter
--- OUTSIDE RECORDS SUMMARY | 2024-09-14 16:02 | XMS_ITS | Encounter Summary ---
Author Organization [facility] Address [address] [place] [address] Care Team Providers Care Counter Waitress/Waiter Name Role Phone Parag Bradley MD Primary Care Provider Анна Ha NP Unavailable [phone] Encounter Details Date Type Department Care Team (Late st Contact Info) Description 06/23/2023 Orders Only [facility] FM [address] [facility] [place] [address] Slava Castro, DO 102 [facility] [address] [place], [place] [id number] Social History Tobacco Use Types Packs/Day Years [...] Recorded Patient Health Questionnaire-2 Score 0 05/26/2023 [facility] - Occupational Stress [...] Office Visit [facility] BCP OB [address] [facility] [address] Slava Castro, [address] [place] [address] [place] [address] documented as of this encounter Procedures Procedure [...] on filedocumented in this encounter Care Teams Counter Waitress/Waiter Relationship Specialty Start Date End Date Parag Bradley MD [address] [place] [address] PCP - General Family Medicine 08/14/22 Анна Ha NP [address] [place] [address] PCP - [facility] 08/25/23 documented as of this encounter
--- OUTSIDE RECORDS SUMMARY | 2024-09-14 16:02 | XMS_ITS | Encounter Summary ---
Author Organization [facility] Address [address] [place] [address] Care Team Providers Care Plywood Scarfer Tender Name Role Phone Parag Bradley MD Primary Care Provider [phone] Анна Ha NP Unavailable [phone] Encounter Details Date Type Department Care [...] Recorded Patient Health Questionnaire-2 Score 0 05/26/2023 [facility] Occupat ional [facility] - [...] in a jail (including now)? No 05/19/2023 Comments Unknown Sex [...] EDT Office Visit [facility] BCP OB [address] [facility] [place] [address] Orlin Castro, [address] [place] [address] documented as of this encounter Procedures Procedure Name Priority Date/Time Associated Diagnosis Comments US OB TRANSVAGINAL 06/26/2023 10 :14 AM EDT documented in this encounter Results * US OB TRANSVAGINAL (06/26/2023 10:14 AM EDT) Anatomical Region Laterality Modality Other 06/26/2023 10:1 4 AM EDT Narrative 06/26/2023 10:16 AM EDT [address] [address] Ultrasound Report Signed Patient: ROXANNE MARSHALL MR#: [id number] : 1990 Acct:[id number] Age/Sex: 32 / F ADM Date: 06/26/23 Loc: [facility] Attending Dr: Orlin Castro D.O. Ordering Physician: Orlin Castro D.O. Date of Service: 06/26/23 Procedure(s): US OB transvaginal Accession Number(s): [id number] cc: Анна Ha NP; Orlin Castro D.O. [address] [address] Patient Name: ROXANNE MARSHALL MRN: [id number] date: 1990 Sex: F Assigned Patient Location: [facility] Current Patient Location: [facility] Accession/Order Number: [id number] Exam Date: 06/26/2023 09:09 Report Date: 06/26/2023 [...] Signed By: 06/26/23 1016 DD/ 1014 TD/TT: Sheep Killer: Procedure Note Radiology, Radiologist, MD - 06/26/2023 [place] [address] Ultrasound Report Signed Patient: ROXANNE MARSHALL DMR#: [id number] : 1990Acct:[id number] Age/Sex: 32 / FADM Date: 06/26/23 Loc: [facility] Attending Dr: Orlin Castro D.O. Ordering Physician: Orlin Castro D.O. Date of Service: 06/26/23 Procedure(s): US OB transvaginal Accession Number(s): [id number] cc: Анна Ha SAP DATA ANALYST; Orlin Castro D.O. The [place] [id number] Patient Name: ROXANNE MARSHALL MRN: [id number] date: 1990 Sex: F Assigned Patient Location: [facility] Current Patient Location: [facility] Accession/Order Number: [id number] Exam Date: 06/26/2023 09:09 Report Date: 06/26/2023 [...] M.D. Signed By:06/26/23 1016 DD/ 1014 TD/TT: Sheep Killer: us Generic External Data Provider [facility] Final Result documented in this encounter Visit Diagnoses Not on filedocumented in this encounter Care Teams Plywood Scarfer Tender Relationship Specialty Start Date End Date Parag Bradley MD [address] [place] [address] PCP - General Family Medicine 08/14/22 Анна Ha NP [address] [place] [address] PCP - [facility] 08/25/23 documented as of this encounter
--- OUTSIDE RECORDS SUMMARY | 2024-09-14 16:03 | XMS_ITS | Encounter Summary ---
Author Organization [facility] Address [address] [place] [address] Care Team Providers Care Cutlery Grinder Name Role Phone Parag Bradley MD Primary Care Provider [phone] Анна Ha NP Unavailable [phone] Encounter Details Date Type Department Care Team (Late st Contact Info) Description 06/16/2023 Orders Only [facility] BW FM [address] [place] [address] Slava Castro, DO [address] [facility] [place] [address] [place] [address] Social History Tobacco Use Types Packs/Day Years [...] Recorded Patient Health Questionnaire-2 Score 0 05/26/2023 [facility] - Occupational Stress Questionnaire Answer [...] in a mcfp (including now)? No 05/19/2023 Comments Unknown Sex [...] EDT Office Visit [facility] BCP OB [address] [facility] [place] [address] Slava Castro, [address] [place] [address] Dr [place], [place] [id number] documented as of this encounter Procedures Procedure [...] on filedocumented in this encounter Care Teams Cutlery Grinder Relationship Specialty Start Date End Date Parag Bradley MD [address] [place] [address] PCP - General Family Medicine 08/14/22 Анна Ha NP [address] [place] [address] PCP - [facility] 08/25/23 documented as of this encounter
--- OUTSIDE RECORDS SUMMARY | 2024-09-14 16:03 | XMS_ITS | Encounter Summary ---
Author Organization [facility] Address [address] [place] [address] Care Team Providers Care Operating Cost Clerk Name Role Phone Parag Bradley MD Primary Care Provider Анна Ha NP Unavailable [phone] Encounter Details Date Type Department Care Team (Late st Contact Info) Description 06/26/2023 Orders Only [facility] FM [address] [facility] [place] [address] Slava Castro, DO 102 [facility] [address] [place], [place] [address] Social History Tobacco Use Types Packs/Day Years [...] Health Questionnaire-2 Score 0 05/26/2023 [facility] - Occupational Stress Questionnaire Answer [...] [address] [facility] [place] [address] Slava Castro, [address] [place] [address] [place] [address] documented as of this encounter Procedures Procedure [...] on filedocumented in this encounter Care Teams Operating Cost Clerk Relationship Specialty Start Date End Date Parag Bradley MD [address] [place] [address] PCP - General Family Medicine 08/14/22 Анна Ha NP [address] [place] [address] PCP - [facility] 08/25/23 documented as of this encounter
--- OUTSIDE RECORDS SUMMARY | 2024-09-14 16:03 | XMS_ITS | Encounter Summary ---
Author Organization [facility] Address [address] [place] [address] Care Team Providers Care Lifestyle Coordinator Name Role Phone Parag Bradley MD Primary Care Provider [phone] Анна Ha NP Unavailable [phone] Encounter Details Date Type Department Care [...] Recorded Patient Health Questionnaire-2 Score 0 08/06/2024 [facility]at ional Health - Occupational Stress [...] EDT Office Visit [facility]CP OB [address] [facility] [address] Slava Castro DO [address] [place], [place] [address] documented as of this encounter Goals Goal [...] EDT Narrative 09/09/2024 8:14 [place] [address] Ultrasound Report Signed Patient: ROXANNE MARSHALL MR#: [id number] : 1990 Acct:[id number] Age/Sex: 34 / F ADM Date: 09/08/24 Loc: US Attending Dr: Vidya Jackson Ordering Physician: Vidya Jackson Date of Service: 09/08/24 Procedure(s): US OB BPP w non-stress Accession Number(s): [id number] cc: Анна Ha NP; Vidya Jackson The [place] [id number] Patient Name: ROXANNE MARSHALL MRN: [id number] date: 1990 Sex: F Assigned Patient Location: US Current Patient Location: Accession/Order Number: [id number] Exam Date: 09/09/2024 08:04 Report Date: 09/09/2024 [...] Auguste M.D. 09/09/2024 8:12 AM Dictation Location: [place] [address] Electronically authenticated by: [id number] Y Date: 09/09/2024 08:12 Dictated By: Isatu Auguste M.D. Signed By: 09/09/2414 DD/ 1 TD/TT: Buffing Wheel Presser: Procedure Note Radiology, Radiologist, - 09/09/2024 [place] [address] Ultrasound Report Signed Patient: ROXANNE MARSHALL DMR#: [id number] : 1990Acct:[id number] Age/Sex: 34 / FADM Date: 09/08/24 Loc: US Attending Dr: Vidya Jackson Ordering Physician: Vidya Jackson Date of Service: 09/08/24 Procedure(s): US OB BPP w non-stress Accession Number(s): [id number] cc: Анна Ha NP; Vidya Jackson The [place] [address] Patient Name: ROXANNE MARSHALL MRN: [id number] date: 1990 Sex: F Assigned Patient Location: Current Patient Location: Accession/Order Number: [id number] Exam Date: 09/09/2024 08:04 Report Date: 09/09/2024 [...] Auguste M.D. 09/09/2024 8:12 AM Dictation Location: [place] [address] Electronically authenticated by: [id number] Y Date: 508:12 Dictated By: Isatu Auguste M.D. Signed By:09/09/24813 DD/ 1 TD/TT: Buffing Wheel Presser: us Generic External Data Provider [facility] Final Result documented in this encounter Visit Diagnoses Not on filedocumented in this encounter Additional Health Concerns Active Problems Noted Date Diagnosed Date OB Reminders 02/11/2024 documented as of this encounter Care Teams Lifestyle Coordinator Relationship Specialty Start Date End Date Parag Bradley MD [address] [place] [address] PCP - General Family Medicine 08/14/22 Анна Ha NP [address] [place] [address] PCP - [facility] 08/25/23 documented as of this encounter
--- OUTSIDE RECORDS SUMMARY | 2024-09-14 16:03 | XMS_ITS ---
Author Organization [facility] Address [address] [place] [address] Care Team Providers Care Mems Engineer Name Role Phone Parag Bradley MD Primary Care Provider [phone] Анна Ha NP Unavailable [phone] [facility] ([facility]) Status:Enrolled (Active) Start date:03/09/2024 Enrollment date:03/09/2024 Enrollment reason:Identified by Health Plan Case Team Name Relationship Phone Vidya Oliva LPN(Responsible Staff) Licensed [facility] Nurse [phone] Continued Care and Services Coordination
--- OUTSIDE RECORDS SUMMARY | 2024-09-14 16:03 | XMS_ITS | Encounter Summary ---
Author Organization [facility] Address [address] [place] [address] Care Team Providers Care Highway Technician Name Role Phone Parag Bradley MD Primary Care Provider Анна Ha NP Unavailable Encounter Details Date Type Department Care Team (Late st Contact Info) Description 09/08/2024 Telephone [facility] BCP OB [address] [place] [address] Lorin Mustafa LPN [address] [place] [address] Social History Tobacco Use Types [...] week 08/31/2024 How often do you attend [facility] or caodaism services? More than 4 times [...] Recorded Patient Health Questionnaire-2 Score 0 08/06/2024 [facility] - Occupational Stress Questionnaire Answer Date [...] a senior living (including now)? No 05/19/2023 Housing Stability Vital Sign Answer Leonidas e Recorded In the last 12 months, was t here a time when you were not able to pay the mortgage or rent on time? No 08/31/2024 In the past 12 months, how m any times have you moved where you were living? 0 08/31/2024 At any time in the past 12 m [facility], were you homeless or living in a senior living (including now)? No 08/31/2024 Estimated Date of [...] EDT Office Visit [facility] BCP OB [address] [facility] [address] Slava Castro, [address] [place] [address] Scheduled Orders Name Type Priority Associated Diagnoses Orde r Schedule US OB follow up transabdominal approach Imaging Routine History of gestational diabetes SGA (small for gestational age) ([facility]) Antepartum multigravida of advanced maternal age ([facility]) Expected: 09/08/2024, Expires: 01/09/2025 documented as of this encounter Goals Goal Patient Goal Type Associated Problems Recent Progress Patient-Stated? Author Reminders Care Plan OB Reminders No Open Scheduling, Background documented as of this encounter Visit Diagnoses Diagnosis History of gestational diabetes Personal history of other genital system and obstetric disorders SGA (small for gestational age) ([facility]) Uccig-nmr-lcdpw without mention of malnutrition, unspecified (weight) Antepartum multigravida of advanced maternal age ([facility]) documented in this encounter Additional Health Concerns Active Problems Noted Date Diagnosed Date OB Reminders 02/11/2024 documented as of this encounter Care Teams Highway Technician Relationship Specialty Start Date End Date Parag Bradley MD [address] [place] [address] PCP - General Family Medicine 08/14/22 Анна Ha NP [address] [place] [address] PCP - [facility] 08/25/23 documented as of this encounter
--- OUTSIDE RECORDS SUMMARY | 2024-09-14 16:03 | XMS_ITS | Encounter Summary ---
Author Organization [facility] Address [address] [place] [address] Care Team Providers Care Supervisor Alteration Workroom Name Role Phone Parag Bradley MD Primary Care Provider [phone] Анна Ha LAMINATION INSPECTOR Unavailable [phone] Encounter Details Date Type Department Care Team (Late st Contact Info) Description 08/04/2024 Abstract [facility] [address] [place] [address] Анна Ha, VÍCTOR [address] [place] [address] Social History Tobacco Use Types Packs/Day Years [...] often do you attend chur ch or tenriism services? More than 4 times per year 05/19/2023 Do you belong to any clubs o r organizations such as muslim groups, unions, fraternal or athletic groups, or [...] Recorded Patient Health Questionnaire-2 Score 0 08/06/2024 [facility] - Occupational Stress [...] Office Visit [facility] BCP OB [address] [facility] [address] Slava Castro, DO [address] [facility] [place] [address] documented as of this encounter Goals Goal Patient Goal Type Associated Problems Recent Progress Patient-Stated? Author Reminders Care Plan OB Reminders No Open Scheduling, Background documented as of this encounter Visit Diagnoses Not on filedocumented in this encounter Additional Health Concerns Active Problems Noted Date Diagnosed Date OB Reminders 02/11/2024 documented as of this encounter Care Teams Supervisor Alteration Workroom Relationship Specialty Start Date End Date Parag Bradley MD [address] [place] [address] PCP - General Family Medicine 08/14/22 Анна Ha NP [address] [place] [address] PCP - [facility] 08/25/23 documented as of this encounter
--- OUTSIDE RECORDS SUMMARY | 2024-09-14 16:03 | XMS_ITS | Encounter Summary ---
Author Organization [facility] Address [address] [place] [address] Care Team Providers Care Job Compositor Name Role Phone Parag Bradley MD Primary Care Provider Анна Ha NP Unavailable [phone] Encounter Details Date Type Department Care Team (Late st Contact Info) Description 09/14/2024 Bamboo flowsheet [facility] BCP OB [address] [place] [address] Slava Castro, DO [address] [place], [place] [address] Social History Tobacco Use Types Packs/Day Years [...] How often do you attend chur or restoration services? More than 4 times per year 08/31/2024 Do you belong to any clubs o r organizations such as judaism groups, unions, fraternal or athletic groups, or [...] Recorded Patient Health Questionnaire-2 Score 0 08/06/2024 [facility] of Occupat ional Health - Occupational [...] [facility] [place] [address] Slava Castro, DO [address] [facility] [place] [address] documented as of this encounter Goals Goal Patient Goal Type Associated Problems Recent Progress Patient-Stated? Author Reminders Care Plan OB Reminders No Open Scheduling, Background documented as of this encounter Visit Diagnoses Not on filedocumented in this encounter Additional Health Concerns Active Problems Noted Date Diagnosed Date OB Reminders 02/11/2024 documented as of this encounter Care Teams Job Compositor Relationship Specialty Start Date End Date Parag Bradley MD [address] [place] [address] PCP - General Family Medicine 08/14/22 Анна Ha NP [address] [place] [address] PCP - [facility] 08/25/23 documented as of this encounter
--- OUTSIDE RECORDS SUMMARY | 2024-09-14 16:03 | XMS_ITS | Encounter Summary ---
Author Organization [facility] Address [address] [place] [address] Care Team Providers Care Assistant Professor Of Biochemistry Name Role Phone Parag Bradley MD Primary Care Provider [phone] Анна Ha NP Unavailable Encounter Details Date [...] [facility] [...] any time in the past 12 m [facility], were you homeless or living in [...] [address] [facility] [place] [address] Slava Castro, DO [address] [facility] [place] [address] documented as of this encounter Goals Goal Patient Goal Type Associated Problems Recent Progress Patient-Stated? Author Reminders Care Plan OB Reminders No Open Scheduling, Background documented as of this encounter Visit Diagnoses Not on filedocumented in this encounter Additional Health Concerns Active Problems Noted Date Diagnosed Date OB Reminders 02/11/2024 documented as of this encounter Care Teams Assistant Professor Of Biochemistry Relationship Specialty Start Date End Date Parag Bradley MD [address] [place] [address] PCP - General Family Medicine 08/14/22 Анна Ha NP [address] [place] [address] PCP - [facility] 08/25/23 documented as of this encounter
--- OUTSIDE RECORDS SUMMARY | 2024-09-14 16:03 | XMS_ITS | Clinical Summary ---
Author Organization [facility] Healthcare Address [address] [place] [address] Care Team Providers Care Animal Pathology Teacher Name Role Phone Parag Bradley MD Primary Care Provider Анна Ha NP Unavailable [phone] Allergies Active Allergy Reactions Criticality Noted Date Comments Other 11/25/2022 Powder on gloves Other Reaction(s): rash/itching Medications MV-Min-Fe Fum-FA-DHA ( 1 PO) Take 1 each by mouth Daily Active aspirin 81 MG EC tablet Take 81 mg by mouth Daily Active omeprazole (PriLOSEC) [address] capsuleIndicat ions:Heartburn during in second trimester ([facility]) Take 1 capsule (20 mg) by mouth [...] EDT Routine [facility] [address] [place] [address] Slava Castro, DO 38 weeks gestation of ([facility]); Third trimester ([facility]); Antepartum multigravida of advanced maternal age ([facility]); SGA (small for gestational age) ([facility]); History of gestational diabetes 09/14/2024 Clinisync Result Encounter NOMS External Department Unsolicited Slava Castro, DO 09/14/2024 Bamboo flowsheet [facility] [address] [place] [address] [place] [address] Slava Castro, DO 09/12/2024 Clinisync Result Encounter NOMS External Department Unsolicited Provider, Generic External Data 09/11/2024 Clinisync Result Encounter NOMS External Department Unsolicited Provider, Generic External Data 09/10/2024 Travel 09/09/2024 11:50 AM EDT Routine [facility] [address] [place] [address] [place] [address] Slava Castro, DO 37 weeks gestation of ([facility]); Third trimester ([facility]); Antepartum multigravida of advanced maternal age ([facility]); SGA (small for gestational age) ([facility]); History of gestational diabetes 09/09/2024 Clinisync Result Encounter NOMS External Department Unsolicited Provider, Generic External Data 09/09/2024 Clinisync Result Encounter NOMS External Department Unsolicited Provider, Generic External Data 09/08/2024 Telephone [facility] [address] [place] [address] [place] [phone] Lorin Mustafa LPN 09/07/2024 1:00 PM EDT Office Visit [facility] [address] [place] [address] Анна Ha NP Encounter for wellness examination in adult (Primary Dx); Primary insomnia 09/07/2024 Bamboo flowsheet [facility] [address] [place] [address] Анна Ha NP 09/05/2024 Travel 09/02/2024 10:40 AM EDT Routine [facility] [address] [place] [address] Slava Castro DO 36 weeks gestation of ([facility]); Third trimester ([facility]); History of gestational diabetes; Antepartum multigravida of advanced maternal age ([facility]) 09/02/2024 Clinisync Result Encounter NOMS External Department Unsolicited Provider, Generic External Data 09/02/2024 Bamboo flowsheet [facility]OM[facility] [address] [place] [address] Slava Castro DO 09/01/2024 Clinisync Result Encounter NOMS External Department Unsolicited Vidya Jackson PA 09/01/2024 Patient Outreach [facility] [place] [address] [place] [address] Vidya Oliva LPN 08/31/2024 Travel 08/27/2024 Travel 08/25/2024 Clinisync Result Encounter [facility]OM[facility] External Department Unsolicited Provider, Generic External Data 08/23/2024 Refill [facility] [address] [place] [address] Анна Ha NP Primary insomnia 08/22/2024 Refill [facility] [address] [place] [address] Анна Ha NP Primary insomnia 08/18/2024 9:30 AM EDT Routine [facility] [address] [place] [address] [place] [address] Ximena Carver NP Third trimester ([facility]); 34 weeks gestation of ([facility]) 08/18/2024 Clinisync Result Encounter NOMS External Department Unsolicited Provider, Generic External Data 08/18/2024 Bamboo flowsheet NOM[facility] [address] [place] [address] Ximena Carver NP 08/17/2024 Travel 08/13/2024 Clinisync Result Encounter NOMS External Department Unsolicited Provider, Generic External Data 08/11/2024 Clinisync Result Encounter NOMS External Department Unsolicited Vidya Jackson PA 08/06/2024 Patient Outreach [facility] [place] [address] Vidya Oliva LPN 08/04/2024 2:20 PM EDT Routine [facility] [address] [place] [address] Slava Castro, 32 weeks gestation of ([facility]); Third trimester ([facility]) 08/04/2024 Abstract [facility] [address] [place] [address] Анна Ha NP 08/04/2024 Clinisync Result Encounter NOMS External Department Unsolicited Provider, Generic External Data 08/03/2024 Travel 07/28/2024 Clinisync Result Encounter NOMS External Department Unsolicited Provider, Generic External Data 07/26/2024 Abstract [facility] [address] [place] [address] Slava Castro, 07/23/2024 Clinisync Result Encounter NOMS External Department Unsolicited Provider, Generic External Data 07/21/2024 2:20 PM EDT Routine [facility] [address] [place] [address] Vidya Jackson PA Third trimester ([facility]); 30 weeks gestation of ([facility]); History of gestational diabetes 07/21/2024 Telephone [facility] [address] [place] [address] Lizzy Wood MA 07/17/2024 Clinisync Result Encounter NOMS External Department Unsolicited Provider, Generic External Data 07/14/2024 Travel 07/08/2024 Telephone [facility] [address] [place] [address] Leesa Coon MA 07/07/2024 Patient Outreach [facility] [address] [place] [phone] Vidya Oliva LPN 07/06/2024 1:50 PM EDT Routine NOM[facility] [address] [place] [address] Slava Castro DO Third trimester ([facility]); 28 weeks gestation of ([facility]); Elevated glucose tolerance test; Diabetes mellitus screening; SGA (small for gestational age) ([facility]) 07/06/2024 1:30 PM EDT Ancillary Procedure [facility] [address] [place] [address] Antepartum multigravida of advanced maternal age ([facility]) 07/05/2024 Clinisync Result Encounter NOMS External Department Unsolicited Provider, [facility] External Data 06/16/2024 1:20 PM EDT Routine [facility] [address] [place] [address] Ximena Carver NP Second trimester ([facility]); 25 weeks gestation of ([facility]); Screen for STD (sexually transmitted disease); Diabetes mellitus screening; Antepartum multigravida of advanced maternal age ([facility]) 06/16/2024 External Result Encounter NOMS External Department Unsolicited Slava Castro DO 06/16/2024 Bamboo flowsheet [facility] [address] [place] [address] Ximena Carver NP 06/15/2024 Travel from Last 3 Months Immunizations Immunization Administration Dates Next Due Influenza, seasonal, injectable, preservative fr 12/08/2017 Family History Medical History Relation Name [...] Recorded Patient Health Questionnaire-2 Score 0 08/06/2024 [facility] - [facility]ational Stress Questionnaire Answer Date [...] any time in the past 12 [facility], were you homeless or living [...] Office Visit [facility] [address] [facility] [address] Slava Castro, DO [address] [facility] [place] [address] Health Maintenance Due Date Last Done Comments Cervical Cancer Screening 12/09/2028 HPV/Cotest 12/09/2028 Pap Smear 12/09/2028 12/10/2023, 11/25/2022 Influenza Vaccine Discontinued 12/08/2017 Goals Goal Patient Goal Type Associated Problems Recent Progress Patient-Stated? Author Reminders Care Plan OB Reminders No Open Scheduling, Background Procedures Procedure Name Priority Date/Time Associated Diagnosis Comments [facility] UA (CLEAN/CATCH) FINE ARTS TEACHER/MICRO IF IND. Routine 09/14/2024 12:40 PM EDT POCT URINALYSIS DIPSTICK Routine 09/14/2024 10:04 AM EDT 38 weeks gestation of ([facility]) Third trimester ([facility]) US OB BPP W NON-STRESS 09/12/2024 11:49 AM EDT US OB BPP W NON-STRESS 09/11/2024 2:23 PM EDT POCT URINALYSIS DIPSTICK Routine 09/09/2024 12:09 PM EDT 37 weeks gestation of ([facility]) Third trimester ([facility]) US OB BPP W NON-STRESS 09/09/2024 8:12 AM EDT US OB GROWTH 09/09/2024 8:12 AM EDT POCT URINALYSIS DIPSTICK Routine 09/02/2024 10:53 AM EDT 36 weeks gestation of ([facility]) Third trimester ([facility]) CULTURE, GROUP B STREP WITH SUSCEPTIBLITY Routine 09/02/2024 10:36 AM EDT Third trimester ([facility]) STREP GP B CULTURE+RFLX Routine 09/02/2024 10:35 AM EDT US OB BPP W NON-STRESS 09/01/2024 3:11 PM EDT US OB BPP W NON-STRESS 08/25/2024 11:33 AM EDT US OB BPP W NON-STRESS 08/18/2024 11:48 AM EDT POCT URINALYSIS DIPSTICK Routine 08/18/2024 10:28 AM EDT Third trimester ([facility]) US OB BPP W NON-STRESS 08/13/2024 5:27 PM EDT US OB BPP W NON-STRESS 08/11/2024 12:20 PM EDT POCT URINALYSIS DIPSTICK Routine 08/04/2024 2:36 PM EDT 32 weeks gestation of ([facility]) Third trimester ([facility]) US OB BPP W NON-STRESS 08/04/2024 11:43 AM EDT US OB GROWTH 07/28/2024 10:48 AM EDT GLUCOSE TOLERANCE 3 HOUR Routine 07/23/2024 9:09 AM EDT GLUCOSE 1 HOUR Routine 07/17/2024 9:48 AM EDT POCT URINALYSIS DIPSTICK Routine 07/06/2024 2:18 PM EDT Third trimester ([facility]) US OB FOLLOW UP TRANSABDOMINAL APPROACH Routine 07/06/2024 2:04 PM EDT Antepartum multigravida of advanced maternal age ([facility]) GLUCOSE 1 HOUR Routine 07/05/2024 10:48 AM EDT ALL CBC WITH AUTO DIFF Routine 10:48 AM EDT RECURRENT VAGINITIS (HTRX) Routine 06/16/2024 2:27 PM EDT POCT URINALYSIS DIPSTICK Routine 06/16/2024 1:50 PM EDT Second trimester ([facility]) PAP SMEAR Routine 12/10/2023 12:00 AM EDT from Last 3 Months or Most Recently Relevant to Health Maintenance Results * [facility] UA (CLEAN/CATCH) FINE ARTS TEACHER/MICRO IF IND. (09/14/2024 12:40 PM EDT) COLOR [...] Narrative CLINISYNC - 09/14/2024 1:18 PM EDT Slava Gloria DO CLINISYNC Final Result [facility]NC [facility] * (ABNORMAL) POCT urinalysis dipstick manually resulted [...] Positive Urine 09/14/2024 10:0 4 AM EDT us Slava Castro DO POINT OF CARE TEST ENTER/EDIT OR DERABLES Final Result * US OB BPP W NON-STRESS (09/12/2024 11:49 AM EDT) Only the most recent of9 resultswithin the time period is included. Anatomical Region Laterality Modality Other 09/12/2024 11:4 9 AM EDT Narrative 09/12/2024 11:[place] [address] Ultrasound Report Signed Patient: ROXANNE MARSHALL MR#: [id number] : 1990 Acct:[id number] Age/Sex: 34 / F ADM Date: 09/12/24 Loc: [facility] Attending Dr: Radha Chi Ordering Physician: Radha Chi Date of Service: 09/12/24 Procedure(s): US OB BPP w non-stress Accession Number(s): [id number] cc: Анна Ha TAXONOMY TEACHER; Radha Chi [place] [address] Patient Name: ROXANNE MARSHALL MRN: [id number] date: 1990 Sex: F Assigned Patient Location: [facility] Current Patient Location: Accession/Order Number: [id number] Exam Date: 09/12/2024 11:48 Report Date: 09/12/2024 11:49 At the request of: RADHA [facility] Procedure: US OB BPP w non-stress Biophysical profile. Reason for exam: Repeat BPP. COMPARISON: BPP 09/11/2024. TECHNIQUE: Transabdominal imaging of the gravid uterus was obtained. FINDINGS: The hazmat tanker driver reports a BPP of 8 out of 8. LIVE is normal at 12.7 cm. heart rate 126 bpm. US/US OB BPP w non-stress IMPRESSION: BPP 8 out of 8. Impression dictated by: Avery Ram Jr., D.OMurali 09/12/2024 11:49 AM Dictation Location: [facility][id number] Electronically authenticated by: [id number] Y Date: 09/12/2024 11:49 Dictated By: Aveyr Ram M.D. Signed By: 09/12/24 1152 DD/ 1149 TD/TT: Gold Tooler: Procedure Note Radiology, Radiologist, - 09/12/2024 [place] [address] Ultrasound Report Signed Patient: ROXANNE MARSHALL DMR#: [id number] : 1990Acct:[id number] Age/Sex: 34 / FADM Date: 09/12/24 Loc: [facility] Attending Dr: Radha Chi Ordering Physician: Radha Chi Date of Service: 09/12/24 Procedure(s): US OB BPP w non-stress Accession Number(s): [id number] cc: Анна Ha TAXONOMY TEACHER; Radha Chi The [place] [address] Patient Name: ROXANNE MARSHALL MRN: [id number] date: 1990 Sex: F Assigned Patient Location: [facility] Current Patient Location: Accession/Order Number: [id number] Exam Date: 09/12/2024 11:48 Report Date: 09/12/2024 11:49 At the request of: RADHA CHI Procedure: US OB BPP w non-stress Biophysical profile. Reason for exam: Repeat BPP. COMPARISON: BPP 09/11/2024. TECHNIQUE: Transabdominal imaging of the gravid uterus was obtained. FINDINGS: The hazmat tanker driver reports a BPP of 8 out of 8. LIVE is normal at12.7 cm. heart rate 126 bpm. US/US OB BPP w non-stress IMPRESSION: BPP 8 out of 8. Impression dictated by: Avery Ram Jr., DMuraliOMurali 09/12/2024 11:49 AM Dictation Location: [facility]18 Electronically authenticated by: [id number] Y Date: 1:49 Dictated By: Avery Ram M.D. Signed By:09/12/24 1152 DD/ 1149 TD/TT: Gold Tooler: us Generic External Data Provider [facility]NC IMAGING Final Result * US OB GROWTH (09/09/2024 8:12 AM EDT) Only the most recent of2 resultswithin the time period is included. Anatomical Region Laterality Modality Other 09/09/2024 8:12 AM EDT Narrative 09/09/2024 8:14 AM EDT The [place] [id number] Ultrasound Report Signed Patient: ROXANNE MARSHALL MR#: [id number] : 1990 Acct:[id number] Age/Sex: 34 / F ADM Date: 09/08/24 Loc: US Attending Dr: Vidya Jackson Ordering Physician: Vidya Jackson Date of Service: 09/08/24 Procedure(s): US OB growth Accession Number(s): [id number] cc: Анна Ha NP; Vidya Jackson The [address] [address] Patient Name: ROXANNE MARSHALL MRN: [id number] date: 1990 Sex: F Assigned Patient Location: [facility] Current Patient Location: Accession/Order Number: [id number] Exam Date: 09/09/2024 08:04 Report Date: 09/09/2024 [...] Auguste M.D. 09/09/2024 8:12 AM Dictation Location: [place] [address] Electronically authenticated by: [id number] Y Date: 09/09/2024 08:12 Dictated By: Isatu Auguste M.D. Signed By: 09/09/24813 DD/ 1 TD/TT: Gold Tooler: Procedure Note Radiology, Radiologist, MD - 09/09/2024 [place] [address] Ultrasound Report Signed Patient: ROXANNE MARSHALL [facility]#: [id number] : 1990Acct:[id number] Age/Sex: 34 / FADM Date: 09/08/24 Loc: US Attending Dr: Vidya Jackson Ordering Physician: Vidya Jackson Date of Service: 09/08/24 Procedure(s): US OB growth Accession Number(s): [id number] cc: Анна Ha NP; Vidya Jackson [address] [address] Patient Name: ROXANNE MARSHALL MRN: [id number] date: 1990 Sex: F Assigned Patient Location: [facility] Current Patient Location: Accession/Order Number: [id number] Exam Date: 09/09/2024 08:04 Report Date: 09/09/2024 [...] [Y] 2/2 LIVE: 9.7 cm Total score: 08/01 IMPRESSION: FAILED BIOPHYSICAL PROFILE WITH NO BREATHING Impression dictated by: Isatu Auguste M.D. 09/09/2024 8:12 AM Dictation Location: [place] [address] Electronically authenticated by: [id number] Y Date: 508:12 Dictated By: Isatu Auguste M.D. Signed By:09/09/2414 DD/ 1 TD/TT: Gold Tooler: us Generic External Data Provider [facility] IMAGING Final Result * CULTURE, GROUP B STREP WITH SUSCEPTIBLITY (09/02/2024 10:36 AM EDT) Swab 09/02/2024 10:3 6 AM EDT us Slava Castro DO LAB BLOOD ORDERABLES Final Resul t EXTERNAL LAB * STREP GP B CULTURE+RFLX (09/02/2024 10:35 AM EDT) Pathologist [facility] STREP GP B CULTURE+RFLX Strep Gp B Culture+Rflx TBH STREP GP B CULTURE+RFLX Negative [facility] STREP GP B CULTURE+RFLX Centers for Disease Control and Prevention (CDC) and [facility] STREP GP B CULTURE+RFLX [employer] [facility] STREP [...] STREP GP B CULTURE+RFLX [facility]formed at: - [facility] STREP GP B CULTURE+RFLX [address] [place], [place] [id number] [facility] STREP GP B CULTURE+RFLX Glass Frame Fitter: Tony Bynum PhD, Phone: [phone] [facility] 09/02/2024 10:3 5 AM EDT 09/02/2024 8:46 PM EDT Narrative CLINISYNC - 09/07/2024 4:09 PM EDT us Generic External Data Provider LAB BLOOD ORDERAB LES Final Result Performing Organization Address City/[facility]/ZIP Co de Phone Number [facility] * (ABNORMAL) GLUCOSE TOLERANCE 3 HOUR (07/23/2024 9:09 AM EDT) GLUCOSE TOLERANCE 3 HOUR (H) mg/dL [facility] Comment: GLU FAST 97H (<95) Col: 07/23/24 0909 GLU 1HR 151 (<180) Col: 07/23/24 1013 GLU 2HR 151 (<155) Col: 07/23/24 1113 GLU 3HR 123 (<140) Col: 07/23/24 1213 07/23/2024 9:09 AM EDT 07/23/2024 9:14 AM EDT Narrative CLINISYNC - 07/23/2024 12:46 PM EDT us Slava Castro DO LAB BLOOD ORDERABLES Final Resul t [facility] * (ABNORMAL) GLUCOSE 1 HOUR (07/17/2024 9:48 AM EDT) Only the most recent of2 resultswithin the time period is included. GLUCOSE 1 HOUR 162(H) <130 mg/dL [facility] 07/17/2024 9:48 AM EDT 07/17/2024 9:49 AM EDT Narrative [facility] - 07/17/2024 10:52 AM EDT us Slava Csatro DO LAB BLOOD ORDERABLES Final Resul t [facility] * US OB follow up transabdominal approach [...] 8 oz) which correlates to 15 %. BLEL is 09/28/2024. Interpreted by: Electronically signed by TABITHA CAMPBELL II, MD, PHD at 07-Jul-2024 10:00:26 AM [facility] Procedure Note Tabitha Campbell MD - [...] signed by TABITHA CAMPBELL II, MD, PHD [id number] 10:00:26 AM [facility] us Slava Gloria DO [facility] OB US PROCEDURES Final Resul t * [...] EDT Ximena Carver NP CLINISYNC Final Result Performing Organization Address City/State/[facility] Co de Phone Number [facility] * RECURRENT VAGINITIS (HTRX) (06/16/2024 2:27 PM EDT) Pathologist [facility] ATOPOBIUM VAGINAE 0.000 19.961 - 24.689 ppm 06/17/2024 8:02 AM EDT [facility] ATOPOBIUM VAGINAE Not Detected 19.961 - 24.689 ppm 06/17/2024 8:02 AM EDT [facility] BVAB 2,3 (BACTERIAL VAGINOSIS ASSOCIATED BACTERIA 2, 3); MOBILUNCUS SPP 0.000 19.961 - 24.689 ppm 06/17/2024 8:02 AM EDT [facility] BVAB 2,3 (BACTERIAL VAGINOSIS ASSOCIATED BACTERIA 2, 3); MOBILUNCUS SPP Not Detected 19.961 - 24.689 ppm 06/17/2024 8:02 AM EDT [facility] RANJANA ALBICANS, PARAPSILOSIS, TROPICALIS 0.000 19.961 - 30.770 ppm 06/17/2024 8:02 AM EDT [facility] RANJANA ALBICANS, PARAPSILOSIS, TROPICALIS Not Detected 19.961 - 30.770 ppm 06/17/2024 8:02 AM EDT [facility] RANJANA GLABRATA 0.000 23.000 - 32.138 ppm 06/17/2024 8:02 AM EDT [facility] RANJANA GLABRATA Not Detected 23.000 - 32.138 ppm 06/17/2024 8:02 AM EDT [facility] RANJANA KRUSEI 0.000 23.000 - 32.271 ppm 06/17/2024 8:02 AM EDT [facility] RANJANA KRUSEI Not Detected 23.000 - 32.271 ppm 06/17/2024 8:02 AM EDT [facility] CHLAMYDIA TRACHOMATIS 0.000 23.000 - 31.467 ppm 06/17/2024 8:02 AM EDT [facility] CHLAMYDIA TRACHOMATIS Not Detected 23.000 - 31.467 ppm 06/17/2024 8:02 AM EDT [facility] GARDNERELLA VAGINALIS 0.000 19.961 - 24.689 ppm 06/17/2024 8:02 AM EDT [facility] GARDNERELLA VAGINALIS Not Detected 19.961 - 24.689 ppm 06/17/2024 8:02 AM EDT [facility] MEGASPHAERA (TYPES 1, 2) 0.000 19.961 - 24.689 ppm 06/17/2024 8:02 AM EDT [facility] MEGASPHAERA (TYPES 1, 2) Not Detected 19.961 - 24.689 ppm 06/17/2024 8:02 AM EDT [facility] NEISSERIA GONORRHOEAE 0.000 23.000 - 32.117 ppm 06/17/2024 8:03 AM EDT [facility] NEISSERIA GONORRHOEAE Not Detected 23.000 - 32.117 ppm 06/17/2024 8:03 AM EDT [facility] TRICHOMONAS VAGINALIS 0.000 23.000 - 32.119 ppm 06/17/2024 8:02 AM EDT [facility] TRICHOMONAS VAGINALIS Not Detected 23.000 - 32.119 ppm 06/17/2024 8:02 AM EDT [facility] MYCOPLASMA GENITALIUM 0.000 19.961 - 24.689 ppm 06/17/2024 8:02 AM EDT [facility] MYCOPLASMA GENITALIUM Not Detected 19.961 - 24.689 ppm 06/17/2024 8:02 AM EDT [facility] Tissue 06/16/2024 2:27 PM EDT 06/17/2024 1:54 AM EDT Slava Gloria DO LAB BLOOD ORDERABLES Final Resul t [facility] [address] [place] [address] * Pap Smear (12/10/2023 12:00 AM EDT) Swab Cervical swab / Unknown us Slava Gloria DO LAB CYTOLOGY ORDERABLES Final Re sult EXTERNAL LAB from Last 3 Months or Most Recently Relevant to Health Maintenance Additional Health Concerns Active Problems Noted Date Diagnosed Date OB Reminders 02/11/2024 Insurance [employer] Care Teams Animal Pathology Teacher Relationship Specialty Start Date End Date Parag Bradley MD [address] [place] [address] PCP - General Family Medicine 08/14/22 Анна Ha NP [address] [place] [address] PCP - [facility] 08/25/23
--- OUTSIDE RECORDS SUMMARY | 2024-09-14 16:03 | XMS_ITS | Encounter Summary ---
Author Organization [facility] Address [address] [place] [address] Care Team Providers Care Gas Appliance Installer Name Role Phone Parag Bradley MD Primary Care Provider Анна Ha NP Unavailable [phone] Encounter Details Date Type Department Care Team (Late st Contact Info) Description 07/26/2024 Abstract [facility] OB [address] [place] [address] Slava Castro, DO [address] [place], [facility] Social History Tobacco Use Types Packs/Day Years [...] any clubs o r organizations such as alevism groups, unions, fraternal or athletic groups, or [...] Recorded Patient Health Questionnaire-2 Score 0 06/08/2024 [facility] of Occupat ional [facility] - Occupational Stress Questionnaire Answer Date Recorded [...] EDT Office Visit [facility] [address] [facility] [place] [address] Slava Castro DO [address] [facility] [address] [place] [address] documented as of this encounter Goals Goal Patient Goal Type Associated Problems Recent Progress Patient-Stated? Author Reminders Care Plan OB Reminders No Open Scheduling, Background documented as of this encounter Visit Diagnoses Not on filedocumented in this encounter Additional Health Concerns Active Problems Noted Date Diagnosed Date OB Reminders 02/11/2024 documented as of this encounter Care Teams Gas Appliance Installer Relationship Specialty Start Date End Date Parag Bradley MD [address] [place] [address] PCP - General Family Medicine 08/14/22 Анна Ha NP [address] [place] [address] PCP - [facility] 08/25/23 documented as of this encounter
--- OUTSIDE RECORDS SUMMARY | 2024-09-14 16:03 | XMS_ITS | Encounter Summary ---
Author Organization [facility] Address [address] [place] [address] Care Team Providers Care Brick Cleaner Name Role Phone Parag Bradley MD Primary Care Provider Анна Ha NP Unavailable [phone] Encounter Details Date Type Department Care [...] Health Questionnaire-2 Score 0 08/06/2024 [facility] - Occupational [...] EDT Office Visit [facility] [address] [facility] [place] [address] Slava Castro DO [address] [place], [place] [id number] documented as of this encounter Goals Goal [...] EDT Narrative 09/09/2024 8:14 [place] [address] Ultrasound Report Signed Patient: ROXANNE MARSHALL MR#: [id number] : 1990 Acct:[id number] Age/Sex: 34 / F ADM Date: 09/08/24 Loc: US Attending Dr: Vidya Jackson Ordering Physician: Vidya Jackson Date of Service: 09/08/24 Procedure(s): US OB growth Accession Number(s): [id number] cc: Анна Ha NP; Vidya Jackson The [place] [id number] Patient Name: ROXANNE MARSHALL MRN: [id number] date: 1990 Sex: F Assigned Patient Location: [facility] Current Patient Location: Accession/Order Number: [id number] Exam Date: 09/09/2024 08:04 Report Date: 09/09/2024 [...] Auguste M.D. 09/09/2024 8:12 AM Dictation Location: [place] [address] Electronically authenticated by: [id number] Y Date: 09/09/2024 08:12 Dictated By: Isatu Auguste M.D. Signed By: 09/09/24813 DD/ 1 TD/TT: Test Boring Crew Chief: Procedure Note Radiology, Radiologist, MD - 09/09/2024 [place] [address] Ultrasound Report Signed Patient: ROXANNE MARSHALL DMR#: [id number] : 1990Acct:[id number] Age/Sex: 34 / FADM Date: 09/08/24 Loc: US Attending Dr: Vidya Jackson Ordering Physician: Vidya Jackson Date of Service: 09/08/24 Procedure(s): US OB growth Accession Number(s): [id number] cc: Анна Ha NP; Vidya Jackson The [place] [phone] Patient Name: ROXANNE MARSHALL MRN: [facility]:[id number] date: 1990 Sex: F Assigned Patient Location: [facility] Current Patient Location: Accession/Order Number: [id number] Exam Date: 09/09/2024 08:04 Report Date: 09/09/2024 [...] Auguste M.D. 09/09/2024 8:12 AM Dictation Location: [place] [address] Electronically authenticated by: [id number] Y Date: 508:12 Dictated By: Isatu Auguste M.D. Signed By:09/09/24813 DD/ 1 TD/TT: Test Boring Crew Chief: us Generic External Data Provider [facility] Final Result documented in this encounter Visit Diagnoses Not on filedocumented in this encounter Additional Health Concerns Active Problems Noted Date Diagnosed Date OB Reminders 02/11/2024 documented as of this encounter Care Teams Brick Cleaner Relationship Specialty Start Date End Date Parag Bradley MD [address] [place] [address] PCP - General Family Medicine 08/14/22 Анна Ha NP [address] [place] [address] PCP - [facility] 08/25/23 documented as of this encounter
--- OUTSIDE RECORDS SUMMARY | 2024-09-14 16:03 | XMS_ITS | Encounter Summary ---
Author Organization [facility] Address [address] [place] [address] Care Team Providers Care Bander Operator Name Role Phone Parag Bradley MD Primary Care Provider [phone] Анна aH NP Unavailable [phone] Encounter Details Date Type Department Care [...] 0 08/06/2024 [facility] [...] in a assisted (including now)? No 05/19/2023 Housing Stability Vital Sign Answer Leonidas e Recorded In the last 12 months, was t here a time when you were not able to pay the mortgage or rent on time? No 08/31/2024 In the past 12 months, how m any times have you moved where you were living? 0 08/31/2024 At any time in the past 12 m [facility], were you homeless or living in a assisted (including now)? No 08/31/2024 Estimated Date of [...] EDT Office Visit [facility] [address] [facility] [place] [address] Slava Castro DO [address], [place] [address] documented as of this encounter Goals Goal Patient Goal Type Associated Problems Recent Progress Patient-Stated? Author Reminders Care Plan OB Reminders No Open Scheduling, Background documented as of this encounter Procedures Procedure Name Priority Date/Time Associated Diagnosis Comments STREP GP B CULTURE+RFLX Routine 09/02/2024 10:35 AM EDT documented in this encounter Results * STREP GP B CULTURE+RFLX (09/02/2024 10:35 AM EDT) Pathologist [facility] STREP GP B CULTURE+RFLX Strep Gp B Culture+Rflx [facility] STREP GP B CULTURE+RFLX Negative [facility] STREP GP B CULTURE+RFLX Centers for Disease Control and Prevention (CDC) and [facility] STREP GP B CULTURE+RFLX [employer] [facility] STREP [...] STREP GP B CULTURE+RFLX [facility]formed [facility] STREP GP B CULTURE+RFLX [address], [place] [id number] [facility] STREP GP B CULTURE+RFLX [employer] Operator: Tony Bynum PhD, Phone: [phone] TB 09/02/2024 10:3 5 AM EDT 09/02/2024 8:46 PM EDT Narrative KANUNC - 09/07/2024 4:09 PM EDT us Generic External Data Provider LAB BLOOD ORDERAB LES Final Result [facility] documented in this encounter Visit Diagnoses Not on filedocumented in this encounter Additional Health Concerns Active Problems Noted Date Diagnosed Date OB Reminders 02/11/2024 documented as of this encounter Care Teams Bander Operator Relationship Specialty Start Date End Date Parag Bradley MD [address] [place] [address] PCP - General Family Medicine 08/14/22 Анна Ha NP [address] [place] [address] PCP - [facility] 08/25/23 documented as of this encounter
--- OUTSIDE RECORDS SUMMARY | 2024-09-14 16:03 | XMS_ITS | Encounter Summary ---
Author Organization [facility] Address [address] [place] [address] Care Team Providers Care Outpatient Phlebotomist Name Role Phone Parag Bradley MD Primary Care Provider Анна Ha NP Unavailable [phone] Encounter Details Date Type Department Care Team (Late st Contact Info) Description 02/11/2024 Abstract [facility] OB [address] [place] [address] Slava Castro, DO [address] [place], [facility]11 [...] 09/01/2023 [facility]at ional [facility] - Occupational Stress Questionnaire Answer Date [...] EDT Office Visit [facility] BCP OB [address] [facility] [place] [address] Slava Castro DO [address] [facility] [place] [address] documented as of this encounter Goals Goal Patient Goal Type Associated Problems Recent Progress Patient-Stated? Author Reminders Care Plan OB Reminders No Open Scheduling, Background documented as of this encounter Visit Diagnoses Not on filedocumented in this encounter Additional Health Concerns Active Problems Noted Date Diagnosed Date OB Reminders 02/11/2024 documented as of this encounter Care Teams Outpatient Phlebotomist Relationship Specialty Start Date End Date Parag Bradley MD [address] [place] [address] PCP - General Family Medicine 08/14/22 Анна Ha NP [address] [place] [address] PCP - [facility] 08/25/23 documented as of this encounter
--- OUTSIDE RECORDS SUMMARY | 2024-09-14 16:03 | XMS_ITS | Encounter Summary ---
Author Organization [facility] Address [address] [place] [address] Care Team Providers Care Security Compliance Engineer Name Role Phone Parag Bradley MD Primary Care Provider [phone] Анна Ha CONTINUOUS DRYOUT OPERATOR HELPER Unavailable [phone] Encounter Details Date Type Department Care Team (Late st Contact Info) Description 09/07/2024 Bamboo flowsheet [facility] [address] [place] [address] Анна Ha, VÍCTOR [address] [place] [address] Social History Tobacco Use Types Packs/Day Years [...] Recorded Patient Health Questionnaire-2 Score 0 08/06/2024 [facility] [...] in a fci (including now)? No 05/19/2023 Housing Stability Vital Sign Answer Leonidas e Recorded In the last 12 months, was t here a time when you were not able to pay the mortgage or rent on time? No 08/31/2024 In the past 12 months, how m any times have you moved where you were living? 0 08/31/2024 At any time in the past 12 m [facility], were you homeless or living in a fci (including now)? No 08/31/2024 Estimated Date of [...] EDT Office Visit [facility] BCP OB [address] [place] [address] Slava Castro, DO [address] [facility] [place] [address] documented as of this encounter Goals Goal Patient Goal Type Associated Problems Recent Progress Patient-Stated? Author Reminders Care Plan OB Reminders No Open Scheduling, Background documented as of this encounter Visit Diagnoses Not on filedocumented in this encounter Additional Health Concerns Active Problems Noted Date Diagnosed Date OB Reminders 02/11/2024 documented as of this encounter Care Teams Security Compliance Engineer Relationship Specialty Start Date End Date Parag Bradley MD [address] [place] [address] PCP - General Family Medicine 08/14/22 Анна Ha NP [address] [place] [address] [facility] 08/25/23 documented as of this encounter
--- OUTSIDE RECORDS SUMMARY | 2024-09-14 16:03 | XMS_ITS | Encounter Summary ---
Author Organization [facility] Address [address] [place] [address] Care Team Providers Care Elevator Repairer Name Role Phone Parag Bradley MD Primary Care Provider [phone] Анна Ha NP Unavailable [phone] Encounter Details Date Type Department Care [...] Recorded Patient Health Questionnaire-2 Score 0 05/26/2023 [facility] - Occupational Stress Questionnaire Answer [...] in a alf (including now)? No 05/19/2023 Comments Unknown Sex [...] OB [address] [facility] [place] [address] Orlin Castro, [address] [place] [address] [place] [address] documented as of this encounter Procedures Procedure Name Priority Date/Time Associated Diagnosis Comments US OB TRANSVAGINAL 06/13/2023 11 :13 AM EDT [facility] PREG QUANT HCG Routine 06/13/2023 10 :49 AM EDT documented in this encounter Results * US OB TRANSVAGINAL (06/13/2023 11:13 AM EDT) Anatomical Region Laterality Modality Other 06/13/2023 11:1 3 AM EDT Narrative 06/13/2023 11:16 AM EDT [address] [address] Ultrasound Report Signed Patient: ROXANNE MARSHALL MR#: [id number] : 1990 Acct:[id number] Age/Sex: 32 / F ADM Date: 06/13/23 Loc: [facility] Attending Dr: Orlin Castro D.O. Ordering Physician: Orlin Castro D.O. Date of Service: 06/13/23 Procedure(s): US OB transvaginal Accession Number(s): [id number] cc: Анна Ha DOWNSTREAM BIOMANUFACTURING TECHNICIAN; Orlin Castro D.O. [address] [address] Patient Name: ROXANNE MARSHALL MRN: [facility]:[id number] date: 1990 Sex: F Assigned Patient Location: [facility] Current Patient Location: [facility] Accession/Order Number: [id number] Exam Date: 06/13/2023 09:58 Report Date: 06/13/2023 [...] Signed By: 06/13/23 1116 DD/ 1113 TD/TT: Dermatology Physician: Procedure Note Radiology, Radiologist, MD - 06/13/2023 [place] [address] Ultrasound Report Signed Patient: ROXANNE MARSHALL DMR#: [id number] : 1990Acct:[id number] Age/Sex: 32 / FADM Date: 06/13/23 Loc: [facility] Attending Dr: Orlin Castro D.O. Ordering Physician: Orlin Castro D.O. Date of Service: 06/13/23 Procedure(s): US OB transvaginal Accession Number(s): [id number] cc: Анна Ha DOWNSTREAM BIOMANUFACTURING TECHNICIAN; Orlin Castro D.O. The [place] [address] Patient Name: ROXANNE MARSHALL MRN: [facility]:[id number] date: 1990 Sex: F Assigned Patient Location: [facility] Current Patient Location: [facility] Accession/Order Number: [id number] Exam Date: 06/13/2023 09:58 Report Date: 06/13/2023 [...] M.D. Signed By:06/13/23 1116 DD/ 1113 TD/TT: Dermatology Physician: us Generic External Data Provider [facility] [...] on filedocumented in this encounter Care Teams Elevator Repairer Relationship Specialty Start Date End Date Parag Bradley MD [address] [place] [address] PCP - General Family Medicine 08/14/22 Анна Ha NP [address] [place] [address] PCP - [facility] 08/25/23 documented as of this encounter
--- OUTSIDE RECORDS SUMMARY | 2024-09-14 16:03 | XMS_ITS | Encounter Summary ---
Author Organization [facility] Address [address] [place] [address] Care Team Providers Care Coordinator Cardiopulmonary Services Name Role Phone Parag Bradley MD Primary Care Provider [phone] Анна Ha NP Unavailable [phone] Encounter Details Date Type Department Care [...] Score 0 08/06/2024 [facility] Occupat ional Health - Occupational [...] Office Visit [facility] BCP OB [address] [place] [address] Slava Castro DO [address], [place] [address] documented as of this encounter Goals Goal [...] AM EDT Narrative 09/12/2024 11:52 [place] [address] Ultrasound Report Signed Patient: ROXANNE MARSHALL MR#: [id number] : 1990 Acct:[id number] Age/Sex: 34 / F ADM Date: 09/12/24 Loc: [facility] Attending Dr: Hi Chi Ordering Physician: Hi Chi Date of Service: 09/12/24 Procedure(s): US OB BPP w non-stress Accession Number(s): [id number] cc: Анна Ha CLERICAL ORDER FILLER; Hi Chi The [place] [id number] Patient Name: ROXANNE MARSHALL MRN: [id number] date: 1990 Sex: F Assigned Patient Location: [facility] Current Patient Location: Accession/Order Number: [id number] Exam Date: 09/12/2024 11:48 Report Date: 09/12/2024 11:49 At the request of: [facility]I Procedure: US OB BPP w non-stress Biophysical profile. Reason for exam: Repeat BPP. COMPARISON: BPP 09/11/2024. TECHNIQUE: Transabdominal imaging of the gravid uterus was obtained. FINDINGS: The inspector semiconductor wafer reports a BPP of 8 out of 8. LIVE is normal at 12.7 cm. heart rate 126 bpm. US/US OB BPP w non-stress IMPRESSION: BPP 8 out of 8. Impression dictated by: Aveyr Ram Jr. DMuraliOMurali 09/12/2024 11:49 AM Dictation Location: [email or web address] Electronically authenticated by: [id number] Y Date: 09/12/2024 11:49 Dictated By: Avery Ram M.D. Signed By: 09/12/24 1152 DD/ 1149 TD/TT: Research Assoc: Procedure Note Radiology, Radiologist, - 09/12/2024 [place] [address] Ultrasound Report Signed Patient: ROXANNE MARSHALL DMR#: [id number] : 1990Acct:[id number] Age/Sex: 34 / FADM Date: 09/12/24 Loc: [facility] Attending Dr: Hi Chi Ordering Physician: Hi Chi Date of Service: 09/12/24 Procedure(s): US OB BPP w non-stress Accession Number(s): [id number] cc: Анна Ha CLERICAL ORDER FILLER; Hi Chi The [place] [address] Patient Name: ROXANNE MARSHALL MRN: [id number] date: 1990 Sex: F Assigned Patient Location: [facility] Current Patient Location: Accession/Order Number: [id number] Exam Date: 09/12/2024 11:48 Report Date: 09/12/2024 11:49 At the request of: HI [facility]I Procedure: US OB BPP w non-stress Biophysical profile. Reason for exam: Repeat BPP. COMPARISON: BPP 09/11/2024. TECHNIQUE: Transabdominal imaging of the gravid uterus was obtained. FINDINGS: The inspector semiconductor wafer reports a BPP of 8 out of 8. LIVE is normal at12.7 cm. heart rate 126 bpm. US/US OB BPP w non-stress IMPRESSION: BPP 8 out of 8. Impression dictated by: Avery Ram Jr. DMuraliOMurali 09/12/2024 11:49 AM Dictation Location: [email or web address] Electronically authenticated by: [id number] Y Date: 511:49 Dictated By: Avery Ram M.D. Signed By:09/12/24 1152 DD/ 1149 TD/TT: Research Assoc: us Generic External Data Provider [facility] Final Result documented in this encounter Visit Diagnoses Not on filedocumented in this encounter Additional Health Concerns Active Problems Noted Date Diagnosed Date OB Reminders 02/11/2024 documented as of this encounter Care Teams Coordinator Cardiopulmonary Services Relationship Specialty Start Date End Date Parag Bradley MD [address] [place] [address] PCP - General Family Medicine 08/14/22 Анна Ha NP [address] [place] [address] PCP - [facility] 08/25/23 documented as of this encounter
--- OUTSIDE RECORDS SUMMARY | 2024-09-14 16:03 | XMS_ITS | Encounter Summary ---
Author Organization [facility] Address [address] [place] [address] Care Team Providers Care Contract Technician Name Role Phone Parag Bradley MD Primary Care Provider [phone] Анна Ha NP Unavailable [phone] Encounter Details Date Type Department Care [...] 0 08/06/2024 [facility] - Occupational Stress Questionnaire Answer Date [...] any time in the past 12 m [facility], were you homeless or living in a [...] EDT Office Visit [facility] BCP OB [address] [facility] [place] [address] Slava Castro, DO [address], [place] [address] documented as of this encounter Goals Goal Patient Goal Type Associated Problems Recent Progress Patient-Stated? Author Reminders Care Plan OB Reminders No Open Scheduling, Background documented as of this encounter Visit Diagnoses Not on filedocumented in this encounter Additional Health Concerns Active Problems Noted Date Diagnosed Date OB Reminders 02/11/2024 documented as of this encounter Care Teams Contract Technician Relationship Specialty Start Date End Date Parag Bradley MD [address] [place] [address] PCP - General Family Medicine 08/14/22 Анна Ha NP [address] [place] [address] PCP - [facility] 08/25/23 documented as of this encounter
--- OUTSIDE RECORDS SUMMARY | 2024-09-14 16:03 | XMS_ITS | Encounter Summary ---
Author Organization [facility] Address [address] [place] [address] Care Team Providers Care Hat And Cap Sewer Name Role Phone Parag Bradley MD Primary Care Provider Анна Ha NP Unavailable [phone] Encounter Details Date Type Department Care [...] often do you attend chur ch or confucianist services? More than 4 times per year [...] Recorded Patient Health Questionnaire-2 Score 0 08/06/2024 [facility] of Occupat ional Health - Occupational [...] Visit [facility] BCP OB [address] [facility] [address] Orlin Castro DO [address], [place] [address] documented as of this encounter Goals Goal [...] EDT Narrative 09/11/2024 2:25 [place] [address] Ultrasound Report Signed Patient: ROXANNE MARSHALL MR#: [id number] : 1990 Acct:[id number] Age/Sex: 34 / F ADM Date: 09/11/24 Loc: [facility] Attending Dr: Orlin Castro D.O. Ordering Physician: Orlin Castro D.O. Date of Service: 09/11/24 Procedure(s): US OB BPP w non-stress Accession Number(s): [id number] cc: Анна Ha ACUTE CARE SURGEON; Orlin Castro D.O. The [place] [phone] Patient Name: ROXANNE MARSHALL MRN: [id number]:[id number] date: 1990 Sex: F Assigned Patient Location: [facility] Current Patient Location: Accession/Order Number: [id number] Exam Date: 09/11/2024 14:21 Report Date: 09/11/2024 [...] Sheets M.D. 09/11/2024 2:23 PM Dictation Location: [place] [address] Electronically authenticated by: [id number] Y Date: 09/11/2024 14:23 Dictated By: Jake Sheets M.D. Signed By: 09/11/24 1425 DD/ 142 TD/TT: Sound System Installer: Procedure Note Radiology, Radiologist, MD - 09/11/2024 [place] [address] Ultrasound Report Signed Patient: ROXANNE MARSHALL DMR#: [id number] : 1990Acct:[id number] Age/Sex: 34 / FADM Date: 09/11/24 Loc: [facility] Attending Dr: Orlin Castro D.O. Ordering Physician: Orlin Castro D.O. Date of Service: 09/11/24 Procedure(s): US OB BPP w non-stress Accession Number(s): [id number] cc: Анна Ha ACUTE CARE SURGEON; Orlin Castro D.O. The [place] [id number] Patient Name: ROXANNE MARSHALL MRN: [facility]:[id number] date: 1990 Sex: F Assigned Patient Location: [facility] Current Patient Location: Accession/Order Number: [id number] Exam Date: 09/11/2024 14:21 Report Date: 09/11/2024 [...] Sheets M.D. 09/11/2024 2:23 PM Dictation Location: [place] [address] Electronically authenticated by: [id number] Y Date: 4:23 Dictated By: Jake Sheets M.D. Signed By:09/11/24 1425 DD/ 1423 TD/TT: Sound System Installer: us Generic External Data Provider [facility] Final Result documented in this encounter Visit Diagnoses Not on filedocumented in this encounter Additional Health Concerns Active Problems Noted Date Diagnosed Date OB Reminders 02/11/2024 documented as of this encounter Care Teams Hat And Cap Sewer Relationship Specialty Start Date End Date Parag Bradley MD [address] [place] [address] PCP - General Family Medicine 08/14/22 Анна Ha NP [address] [place] [address] PCP - [facility] 08/25/23 documented as of this encounter
--- OUTSIDE RECORDS SUMMARY | 2024-09-14 16:03 | XMS_ITS | Encounter Summary ---
Author Organization [facility] Address [address] [place] [address] Care Team Providers Care Synchro Assembler Name Role Phone Parag Bradley MD Primary Care Provider [phone] Анна Ha NP Unavailable [phone] Encounter Details Date Type Department Care [...] Recorded Patient Health Questionnaire-2 Score 0 08/06/2024 [facility] - Occupational Stress Questionnaire Answer [...] any time in the past 12 m [facility], were you homeless or living [...] Office Visit [facility] BCP OB [address] [facility] [place] [address] Slava Castro, DO [address] [place], [place] [address] documented as of this encounter Goals Goal Patient Goal Type Associated Problems Recent Progress Patient-Stated? Author Reminders Care Plan OB Reminders No Open Scheduling, Background documented as of this encounter Visit Diagnoses Not on filedocumented in this encounter Additional Health Concerns Active Problems Noted Date Diagnosed Date OB Reminders 02/11/2024 documented as of this encounter Care Teams Synchro Assembler Relationship Specialty Start Date End Date Parag Bradley MD [address] [place] [address] PCP - General Family Medicine 08/14/22 Анна Ha NP [address] [place] [address] PCP - [facility] 08/25/23 documented as of this encounter
--- OUTSIDE RECORDS SUMMARY | 2024-09-14 16:03 | XMS_ITS | Encounter Summary ---
Author Organization [facility] Address [address] [place] [address] Care Team Providers Care Weld Lay Out Worker Name Role Phone Parag Bradley MD Primary Care Provider [phone] Анна Ha BUSINESS EDUCATION INSTRUCTOR Unavailable [phone] Reason for Visit * Reason Onset Date Comments Med Refill 08/22/2024 Encounter Details Date Type Department Care Team (Late st Contact Info) Description 08/22/2024 Refill [facility] [address] [place] [address] Анна Ha, BUSINESS EDUCATION INSTRUCTOR [address] [place] [address] Primary insomnia Social History Tobacco [...] How often do you attend chur or zoroastrianism services? More than 4 times [...] Score 0 08/06/2024 [facility] - Occupational Stress [...] EDT Office Visit [facility] BCP OB [address] [facility] [place] [address] Slava Castro, DO [address] [address] documented as of this encounter Goals Goal [...] documented as of this encounter Care Teams Weld Lay Out Worker Relationship Specialty Start Date End Date Parag Bradley MD [address] [place] [address] PCP - General Family Medicine 08/14/22 Анна Ha NP [address] [place] [address] PCP - [facility] 08/25/23 documented as of this encounter
--- OUTSIDE RECORDS SUMMARY | 2024-09-14 16:04 | XMS_ITS | Encounter Summary ---
Author Organization [facility] Address [address] [place] [address] Care Team Providers Care Maternal Child Nurse Name Role Phone Parag Bradley MD Primary Care Provider [phone] Анна Ha NP Unavailable [phone] Encounter Details Date Type Department Care [...] Patient Health Questionnaire-2 Score 1 09/01/2023 [facility] Occupat ional [facility] - Occupational Stress Questionnaire [...] [address] [facility] [place] [address] Orlin Castro DO [address] [facility] [place] [address] documented as of this encounter Goals Goal [...] AM EST Narrative 02/12/2024 4:31 AM EST [address] [address] Ultrasound Report Signed Patient: ROXANNE MARSHALL MR#: [id number] : 1990 Acct:[id number] Age/Sex: 33 / F ADM Date: 02/11/24 Loc: [facility] Attending Dr: Orlin Castro D.O. Ordering Physician: Orlin Castro D.O. Date of Service: 02/11/24 Procedure(s): US OB transvaginal Accession Number(s): [id number] cc: Анна Ha TRUCK DESPATCHER; Orlin Castro D.O. [place] [id number] Patient Name: ROXANNE MARSHALL MRN: [id number] date: 1990 Sex: F Assigned Patient Location: [facility] Current Patient Location: Accession/Order Number: [id number] Exam Date: 02/11/2024 09:39 Report Date: 02/12/2024 [...] Signed By: 02/12/24 0431 DD/ 0429 TD/TT: Disability Insurance Hearing Officer: Procedure Note Radiology, Radiologist, MD - 02/12/2024 [address] [place] [id number] Ultrasound Report Signed Patient: ROXANNE MARSHALL DMR#: [id number] : 1990Acct:[id number] Age/Sex: 33 / FADM Date: 02/11/24 Loc: [facility] Attending Dr: Orlin Castro D.O. Ordering Physician: Orlin Castro D.O. Date of Service: 02/11/24 Procedure(s): US OB transvaginal Accession Number(s): [id number] cc: Анна Ha TRUCK DESPATCHER; Orlin Castro D.O. The [address] [address] Patient Name: ROXANNE MARSHALL MRN: [id number] date: 1990 Sex: F Assigned Patient Location: [facility] Current Patient Location: Accession/Order Number: [id number] Exam Date: 02/11/2024 09:39 Report Date: 02/12/2024 [...] Tai M.D. Signed By:02/12/24430 DD/ 8 TD/TT: Disability Insurance Hearing Officer: us Generic External Data Provider [facility] Final Result documented in this encounter Visit Diagnoses Not on filedocumented in this encounter Additional Health Concerns Active Problems Noted Date Diagnosed Date OB Reminders 02/11/2024 documented as of this encounter Care Teams Maternal Child Nurse Relationship Specialty Start Date End Date Parag Bradley MD [address] [place] [address] PCP - General Family Medicine 08/14/22 Анна Ha NP [address] [place] [address] [facility] 08/25/23 documented as of this encounter
--- OUTSIDE RECORDS SUMMARY | 2024-09-14 16:04 | XMS_ITS | Encounter Summary ---
Author Organization [facility] Address [address] [place] [address] Care Team Providers Care Computer Programming Manager Name Role Phone Parag Bradley MD Primary Care Provider Анна Ha NP Unavailable [phone] Encounter Details Date Type Department Care Team (Late st Contact Info) Description 03/01/2024 Abstract [facility] OB [address] [place] [address] Slava Castro, DO [address] [place], [facility] Social History Tobacco Use Types Packs/Day [...] Recorded Patient Health Questionnaire-2 Score 1 09/01/2023 [facility] of Occupat ional [facility] [...] BCP OB [address] [facility] [place] [address] Slava Castro DO [address] [facility] [place] [address] documented as of this encounter Goals Goal Patient Goal Type Associated Problems Recent Progress Patient-Stated? Author Reminders Care Plan OB Reminders No Open Scheduling, Background documented as of this encounter Visit Diagnoses Not on filedocumented in this encounter Additional Health Concerns Active Problems Noted Date Diagnosed Date OB Reminders 02/11/2024 documented as of this encounter Care Teams Computer Programming Manager Relationship Specialty Start Date End Date Parag Bradley MD [address] [place] [address] PCP - General Family Medicine 08/14/22 Анна Ha NP [address] [place] [address] PCP - [facility] 08/25/23 documented as of this encounter
--- OUTSIDE RECORDS SUMMARY | 2024-09-14 16:04 | XMS_ITS | Encounter Summary ---
Author Organization [facility] Address [address] [place] [address] Care Team Providers Care Teacher Dancing Name Role Phone Parag Bradley MD Primary Care Provider [phone] Анна Ha NP Unavailable [phone] Encounter Details Date Type Department Care Team (Late st Contact Info) Description 09/01/2024 Clinisync Result Encounter [facility] External Department Unsolicited Vidya Jackson PA [address] [place] [address] [place] [address] Social History Tobacco Use Types Packs/Day Years [...] often do you attend chur ch or jew services? More than 4 times [...] [facility]ational [facility] Questionnaire Answer [...] EDT Office Visit [facility] BCP OB [address] [facility] [place] [address] Slava Castro, [address] [place], [place] [address] documented as of this encounter Goals Goal [...] EDT Narrative 09/01/2024 3:13 [place] [address] Ultrasound Report Signed Patient: ROXANNE MARSHALL MR#: [id number] : 1990 Acct:[id number] Age/Sex: 34 / F ADM Date: 09/01/24 Loc: US Attending Dr: Vidya Jackson Ordering Physician: Vidya Jackson Date of Service: 09/01/24 Procedure(s): US OB BPP w non-stress Accession Number(s): [id number] cc: Анна Ha NP; Vidya Jackson The [address] [address] Patient Name: ROXANNE MARSHALL MRN: [id number] date: 1990 Sex: F Assigned Patient Location: US Current Patient Location: Accession/Order Number: [id number] Exam Date: 09/01/2024 15:10 Report Date: 09/01/2024 [...] Perez M.D. 09/01/2024 3:11 PM Dictation Location: iPosition Electronically authenticated by: [id number] Y Date: 09/01/2024 15:11 Dictated By: Emilio Perez D.O. Signed By: 09/01/241512 DD/ 10 TD/TT: Paleologist: Procedure Note Radiology, Radiologist, - 09/01/2024 [place] [address] Ultrasound Report Signed Patient: ROXANNE MARSHALL DMR#: [id number] : 1990Acct:[id number] Age/Sex: 34 / FADM Date: 09/01/24 Loc: US Attending Dr: Vidya Jackson Ordering Physician: Vidya Jackson Date of Service: 09/01/24 Procedure(s): US OB BPP w non-stress Accession Number(s): [id number] cc: Анна Ha SPECK DYER; Vidya Jackson [place] [id number] Patient Name: ROXANNE MARSHALL MRN: [id number] date: 1990 Sex: F Assigned Patient Location: US Current Patient Location: Accession/Order Number: [id number] Exam Date: 09/01/2024 15:10 Report Date: 09/01/2024 [...] Perez M.D. 09/01/2024 3:11 PM Dictation Location: iPosition Electronically authenticated by: [id number] Y Date: 5:11 Dictated By: Emilio Perez D.O. Signed By:09/01/241512 DD/ TD/TT: Paleologist: us Vidya DESAI [facility] Final Result documented in this encounter Visit Diagnoses Not on filedocumented in this encounter Additional Health Concerns Active Problems Noted Date Diagnosed Date OB Reminders 02/11/2024 documented as of this encounter Care Teams Teacher Dancing Relationship Specialty Start Date End Date Parag Bradley MD [address] [place] [address] PCP - General Family Medicine 08/14/22 Анна Ha NP [address] [place] [address] PCP - [facility] 08/25/23 documented as of this encounter
--- OUTSIDE RECORDS SUMMARY | 2024-09-14 16:04 | XMS_ITS | Encounter Summary ---
Author Organization [facility] Address [address] [place] [address] Care Team Providers Care Wood Lathe Operator Name Role Phone Parag Bradley MD Primary Care Provider [phone] Анна Ha BACK SHOE OPERATOR Unavailable [phone] Encounter Details Date Type Department Care Team (Late Contact Info) Description 03/04/2023 Abstract [facility] FM [address] [place] [address] Анна Ha, BACK SHOE OPERATOR [address] [place] [address] Social History Tobacco Use Types Packs/Day Years [...] [facility] OB [address] [place] [address] Slava Castro DO [address] [place] [address] documented as of this encounter Visit Diagnoses Not on filedocumented in this encounter Care Teams Wood Lathe Operator Relationship Specialty Start Date End Date Parag Bradley MD [address] [place] [address] PCP - General Family Medicine 08/14/22 Анна Ha NP [address] [place] [address] PCP - [facility] 08/25/23 documented as of this encounter
--- OUTSIDE RECORDS SUMMARY | 2024-09-14 16:04 | XMS_ITS | Encounter Summary ---
Author Organization [facility] Address [address] [place] [address] Care Team Providers Care Women'S Activities Adviser Name Role Phone Parag Bradley MD Primary Care Provider Анна Ha NP Unavailable [phone] Encounter Details Date Type Department Care Team (Late st Contact Info) Description 03/04/2024 Abstract [facility] OB [address] [place] [address] Slava Castro, DO [address] [place], [facility]11 Social History Tobacco Use Types Packs/Day [...] often do you attend chur ch or gnosticist services? More than 4 times [...] [facility] ional [facility] - Occupational Stress Questionnaire Answer [...] [facility] BCP OB [address] [facility] [place] [address] Slava Castro DO [address] [facility] [place] [address] documented as of this encounter Goals Goal Patient Goal Type Associated Problems Recent Progress Patient-Stated? Author Reminders Care Plan OB Reminders No Open Scheduling, Background documented as of this encounter Visit Diagnoses Not on filedocumented in this encounter Additional Health Concerns Active Problems Noted Date Diagnosed Date OB Reminders 02/11/2024 documented as of this encounter Care Teams Women'S Activities Adviser Relationship Specialty Start Date End Date Parag Bradley MD [address] [place] [address] PCP - General Family Medicine 08/14/22 Анна Ha NP [address] [place] [address] PCP - [facility] 08/25/23 documented as of this encounter
--- OUTSIDE RECORDS SUMMARY | 2024-09-14 16:04 | XMS_ITS | Encounter Summary ---
Author Organization [facility] Address [address] [place] [address] Care Team Providers Care Thermostatic Controls Supervisor Name Role Phone Parag Bradley MD Primary Care Provider [phone] Анна Ha NP Unavailable [phone] Encounter Details Date Type Department Care Team (Late st Contact Info) Description 09/01/2024 Patient Outreach [facility] [address] [place] [address] Vidya Oliva, RESEARCH DIRECTOR [address], [place] [address] Social History Tobacco Use Types Packs/Day Years [...] week 08/31/2024 How often do you attend [facility] or faith services? More than 4 times per year [...] Patient Health Questionnaire-2 Score 0 08/06/2024 [facility] - Occupational Stress Questionnaire Answer Date [...] EDT Office Visit [facility] BCP OB [address] [facility] [place] [address] Slava Castro, [address] [place] [address] documented as of this encounter Goals Goal Patient Goal Type Associated Problems Recent Progress Patient-Stated? Author Reminders Care Plan OB Reminders No Open Scheduling, Background documented as of this encounter Visit Diagnoses Not on filedocumented in this encounter Additional Health Concerns Active Problems Noted Date Diagnosed Date OB Reminders 02/11/2024 documented as of this encounter Care Teams Thermostatic Controls Supervisor Relationship Specialty Start Date End Date Parag Bradley MD [address] [place] [address] PCP - General Family Medicine 08/14/22 Анна Ha NP [address] [place] [address] PCP - [facility] 08/25/23 documented as of this encounter
--- OUTSIDE RECORDS SUMMARY | 2024-09-14 16:04 | XMS_ITS | Encounter Summary ---
Author Organization [facility] Address [address] [place] [address] [place] [address] Care Team Providers Care Tone Artist Apprentice Name Role Phone Parag Bradley MD Primary Care Provider Анна Ha NP Unavailable [phone] Encounter Details Date Type Department Care Team (Late st Contact Info) Description 09/02/2024 Bamboo flowsheet [facility] BCP OB [address] [place] [address] Slava Castro, DO [address] [place], [place] [address] Social History Tobacco Use Types Packs/Day Years [...] How often do you attend chur or lutheran services? More than 4 times [...] time in the past [facility] were you [facility] or living in [...] EDT Office Visit [facility] BCP OB [address] [facility] [place] [address] Slava Castro, DO [address] [facility] [place] [address] documented as of this encounter Goals Goal Patient Goal Type Associated Problems Recent Progress Patient-Stated? Author Reminders Care Plan OB Reminders No Open Scheduling, Background documented as of this encounter Visit Diagnoses Not on filedocumented in this encounter Additional Health Concerns Active Problems Noted Date Diagnosed Date OB Reminders 02/11/2024 documented as of this encounter Care Teams Tone Artist Apprentice Relationship Specialty Start Date End Date Parag Bradley MD [address] [place] [address] PCP - General Family Medicine 08/14/22 Анна Ha NP [address] [place] [address] PCP - [facility] 08/25/23 documented as of this encounter
--- OUTSIDE RECORDS SUMMARY | 2024-09-14 16:04 | XMS_ITS | Clinical Summary ---
Author Organization [facility] Address [address] [place] [address] Care Team Providers Care Global Head Advertiser Solutions Name Role Phone Unavailable Primary Care Provider [...]
--- NOTE | 2024-09-14 16:22 | PC.NURSE ---
pt appears more serious in stature, bouncing on birthing ball, placed in bed and efm resumed, iv begun and bloodwork drawn
[2024-09-14 16:58] LABS: Hematocrit 41.2 % (36.0-48.0); Hemoglobin 14.0 g/dL (12.0-16.0); Mean Corpuscular HGB Conc 34.0 g/dL (29.9-35.2); Mean Corpuscular Hemoglobin 30.9 pg (26.7-34.0); Mean Corpuscular Volume 90.9 fL (81.0-99.0); Platelet Count 235 10^3/uL (150-450); Red Blood Count 4.53 10^6/uL (4.20-5.40); White Blood Count 12.0 10^3/uL (4.0-11.0)
--- NOTE | 2024-09-14 17:54 | PM.OBPRCVD ---
Procedure Intrapartal events: None Induction method: none Delivery monitor: external FHT and external uterine Route of delivery: Episiotomy Description: none L&D Laceration Description: none Estimated blood loss (mL): 250 Anesthesia type: None Disposition: floor Infant Delivery date: 09/14/24 Gender: female presentation: vertex Placental delivery description: Spontaneous cord description: 3 Vessels
[2024-09-14] MEDS: OXYTOCIN/0.9 % SODIUM CHLORIDE 20 UNITS/1,000 ML PLAST..BAG 125 UNIT IV (18:05)
[2024-09-14] MEDS: TRAZODONE HCL 50 MG TABLET 100 MG PO (22:04)
[2024-09-15 00:30] VITALS: BP 112/56; PULSE 86; TEMP 37
[2024-09-15 02:10] LABS: Cannabinoid Screen Urine NEGATIVE (NEGATIVE); Methamphetamines Screen Urine NEGATIVE (NEGATIVE); Tricyclic Antidepressant Urine NEGATIVE (NEGATIVE)
[2024-09-15 06:42] LABS: Hematocrit 37.1 % (36.0-48.0); Hemoglobin 12.3 g/dL (12.0-16.0); Immature Granulocytes Abs Auto 0.05 10^3/uL (0.00-0.03); Immature Granulocytes Pct Auto 0.4 % (0.0-0.5); Lymphocytes Absolute Auto 2.5 10^3/uL (1.2-3.8); Mean Corpuscular HGB Conc 33.2 g/dL (29.9-35.2); Mean Corpuscular Hemoglobin 30.6 pg (26.7-34.0); Mean Corpuscular Volume 92.3 fL (81.0-99.0); Platelet Count 194 10^3/uL (150-450); Red Blood Count 4.02 10^6/uL (4.20-5.40); White Blood Count 13.1 10^3/uL (4.0-11.0)
[2024-09-15] MEDS: ACETAMINOPHEN 325 MG TABLET 650 MG PO (09:21)
[2024-09-15] MEDS: DOCUSATE SODIUM 100 MG CAPSULE PO (09:21)
[2024-09-15 09:25] VITALS: BP 120/72; PULSE 88
--- NOTE | 2024-09-15 10:56 | P.OBPN_ITS ---
OB - PN: Subj Subjective Patient comments: no complaints and pain well controlled status: doing well Exam Constitutional Vital Signs, click to edit/add: Last Vital Signs Temp 98.6 F 09/15/24 00:30 Pulse 88 09/15/24 09:25 Resp 18 09/14/24 16:09 BP 120/72 09/15/24 09:25 O2 Del Method Room Air 09/15/24 00:30 Documenting provider has reviewed patient's vital signs: yes Common normals: no apparent distress Respiratory Common normals: normal respiratory effort and clear to auscultation bilaterally Cardio Common normals: regular rate and regular rhythm GI Common normals: Normal to inspection, nondistended, normoactive bowel sounds present Extremity Common normals: no clubbing, cyanosis or edema and no calf tenderness Results Labs Labs: Short CBC 09/14/24 09/15/24 Range/Units 16:45 06:23 WBC 12.0 H 13.1 H (4.0-11.0) 10^3/uL Hgb 14.0 12.3 (12.0-16.0) g/dL Hct 41.2 37.1 (36.0-48.0) % Plt Count 235 194 (150-450) 10^3/uL Urine 09/14/24 Range/Units 12:40 Urine Color Lt. yellow (YELLOW) Urine Clarity Clear (CLEAR) Urine pH 7.0 (5.0-9.0) Ur Specific [place] 1.010 (1.005-1.025) Urine Protein Negative (NEG/TRACE) mg/dL Urine Glucose (UA) Negative (NEGATIVE) mg/dL OB - PN: A/P Plan - Vaginal Delivery day: 1 Plan: routine care, discharge home and follow up 6 weeks Time Spent with Patient Time: Total time spent is greater than 50% in coordination of care (as documented) at patient's floor/unit and/or counseling patient: Total time spent with greater than 50% in coordination of care (as documented) at patient's floor/unit and/or counseling patient: less than 15 minutes
[2024-09-15 17:09] VITALS: BP 103/63; PULSE 89
[2024-09-15 20:15] VITALS: BP 103/63; PULSE 89; TEMP 36.4
== END 2024-09-15 20:00 | disposition home or self-care (01) | DRG 560 ==
PROVIDERS: Admitting Provider Obstetrics & Gynecology; PCP Nurse Practitioner; Visit Provider Obstetrics & Gynecology
DX: O80 Encounter for full-term uncomplicated delivery (principal); Z3A.38 38 weeks gestation of pregnancy; Z37.0 Single live birth; Z87.891 Personal history of nicotine dependence; Z86.32 Personal history of gestational diabetes
CPT/HCPCS: 36415; 59025; 59050; 59410; 76818; 80307; 81003; 85025; 85027; 86850; 86900; 86901

== ENCOUNTER 2024-09-21 10:33 | Outpatient (OUT) | payer OTHER, SELFPAY ==
--- OUTSIDE RECORDS SUMMARY | 2021-03-22 12:00 | XMS_ITS | Continuity of Care Document ---
Author Organization [facility] Address [address] [place] [address] Phone Care Team Providers Care Medical Professionals Name Role Phone Tash Sandhu DMD Unavailable Unavailable Allergies, Adverse Reactions, Alerts Substance Reaction Status Criticality No Known Allergies Active No Inform ation Medications Medication Instructions Dosage Effective Dates (start - stop) Status Comments Mirena 20 mcg/24 hours (6 yrs) 52 mg intrauterine device - Active Procedures Procedure Date Nutrit Couns For Control Of [place] Dis Feb Bitewings-three Films Panoramic Film Comp Oral Eval New/estab Patient 2021 Oral Hygiene Instruction Limited Oral Eval Extract; Erupted Th/exposted Rt 021 Extract; Erupted Th/exposted Rt 021 Bitewig-single Film Intraoral-periapical 1st Film Advance Directives Directive Yes / No Effective Date File Name No Information Encounters Encounter Description Practice Location Reason(s) For Visit Diagnoses Date Provider Providers Copied on Encounter [facility], [address] [place] [address], [id number], tel:[phone] Dental Clinic DN (chief complaint) Encounter for screening for dental disorders Edson Bianchi. [address] [place] [address], [id number], [place]. tel:[phone] [facility], [address] [place] [address], [id number], tel:[phone] Dental Clinic Dental New (chief complaint) Encounter for screening for dental disorders Edson Bianchi. [address] [place], [place], [id number], [place]. tel:[phone] Family History Family Member Type Diagnosis Age At Onset Mother Problem Alive and well Father Problem Alive and well Mother Problem Cardiovascular disease Payers Payer name Insurance type Covered green party ID Aston jason(s) D Medicaid [facility] [id number] Social History Type Description Quantity Date Captured [...]
--- OUTSIDE RECORDS SUMMARY | 2024-04-05 11:45 | XMS_ITS ---
Author Organization [facility] es Address [address] [place] [address] Care Team Providers Care E Commerce Director Name Role Phone Naida Valera Primary Care Provider REASON FOR VISIT EXT Encounters Encounter Location Date Provider Diagnosis [address] [place] [address] 04/05/2024 Naida Valera Plan Of Treatment No Information Progress Notes * ROXANNE ROGERS DDOB: 9 (34 yo F)Acc No.[id number]:04/05/2024 Patient: Lily ROXANNE DALLAS Provider: Elizabeth Valera DDS :1990 A ge:33 Y S ex:Female Date:04/05/2024 Address:[id number] [place], [place] [phone] Subjective: * Chief Complaints: * 1 . EXT. * Medical History: Objective: * Vitals: Assessment: Plan: * Treatment: * Images: * Electronic signature of Harjit Valera DDS on 09/21/2024 at 10:36 AM EDT Sign off status: Pending * Provider: Elizabeth Valera DDS Date: 04/05/2024 Generated for Adam son/Makenzie/eTransmitting on: 0 09/21/2024 10:36 AM EDT
--- OUTSIDE RECORDS SUMMARY | 2024-04-19 09:00 | XMS_ITS ---
Author Organization [facility] Address [address] [place] [address] Care Team Providers Care Latin Teacher Name Role Phone Naida Valera Primary Care Provider REASON FOR VISIT FILLING Encounters Encounter Location Date Provider Diagnosis [address] [place] [address] 04/19/2024 Naida Valera Plan Of Treatment No Information Progress Notes * ROXANNE ROGERS DDOB: 9 (34 yo F)Acc No.[id number]:04/19/2024 Patient: Lily ROXANNE DALLAS Provider: Elizabeth Valera DDS :1990 A ge:33 Y S ex:Female Date:04/19/2024 Address:[address] [place], [place] [phone] Subjective: * Chief Complaints: * 1 . FILLING. * Medical History: Objective: * Vitals: Assessment: Plan: * Treatment: * Images: * Electronic signature of Harjit Valera DDS on 09/21/2024 at 10:36 AM EDT Sign off status: Pending * Provider: Elizabeth Valera DDS Date: 04/19/2024 Generated for Adam son/aMkenzie/eTransmitting on: 0 09/21/2024 10:36 AM EDT
--- OUTSIDE RECORDS SUMMARY | 2024-09-07 13:00 | XMS_ITS | Encounter Summary ---
Author Organization [facility] Address [address] [place] [address] Care Team Providers Care Keypunch Operator Name Role Phone Parag Bradley MD Primary Care Provider [phone] Анна Ha WEED CUTTER Unavailable [phone] Reason for Visit * Reason Comments Annual Exam Encounter Details Date Type Department Care Team (Late st Contact Info) Description 09/07/2024 1:00 PM EDT [facility] [address] [place] [address] Анна Ha, VÍCTOR [address] [place] [address] Encounter for wellness examination in adult (Primary Dx); Primary insomnia Social History Tobacco Use Types [...] often do you attend chur ch or latter day services? More than 4 times per year [...] Questionnaire-2 Score 0 08/06/2024 [facility] - Occupational Stress Questionnaire Answer Date [...] in a snf (including now)? No 05/19/2023 Housing Stability Vital [...] time in the past 12 m [facility], were you homeless or living in a snf (including now)? No 08/31/2024 Estimated Date of [...] Sign Reading Time Taken Comments Blood Pressure 110/78 09/07/2024 1:02 PM EDT Pulse 94 09/07/2024 1:02 PM EDT Temperature 36.7 C (98 F) 09/07/2024 1:02 PM EDT Respiratory Rate 18 09/07/2024 1:02 PM EDT Oxygen Saturation 98% 09/07/2024 1:02 PM EDT Inhaled Oxygen Concentration - - Weight 81.1 kg (178 lb 12.8 oz) 09/07/2024 1:02 PM EDT Height - - Body Mass Index 33.78 09/01/2023 10:37 AM EDT documented in this encounter Progress Notes * Анна Ha NP - 09/07/2024 1:24 PM EDTAssociated Problem(s): Insomnia Refill trazodone Fu in 6 months * Анна Ha NP - 09/07/2024 1:24 PM EDTAssociated Problem(s): Encounter for wellness examination in adult Reviewed Ht/Wt/BMI Recommend eye exam yearly Recommend dental exams twice a year Balance work/leisure activities Exercises is recommended most days of the week (appropriate as chronic conditions allow) Follow up yearly and prn * Анна Ha NP - 09/07/2024 1:00 PM EDT Images from the original note were not included. Shreya Marshall is a 34 y.o. female presents with chief complaint of Annual Exam HPI: Diet:balanced Activity: light activity, is Mental Health Concerns:no Any hearing problems: no Any Vision problems: no Any Hospitalizations in the last year:no Specialist:RECYCLER Concerns: SUBJECTIVE: MEDICATIONS: Current Outpatient Medications Medication Instructions aspirin 81 mg, Daily omeprazole (PRILOSEC) 20 mg, Oral, Daily before breakfast, Do not crush or chew. MV-Min-Fe Fum-FA-DHA ( 1 PO) 1 each, Daily traZODone (DESYREL) 100 mg, Oral, Nightly ALLERGIES: Allergies Allergen Reactions Other Powder on gloves Other Reaction(s): rash/itching REVIEW OF SYMPTOMS: Review of Systems Constitutional: Negative for appetite change, chills and fever. HENT: Negative for congestion, ear pain and sore throat. Eyes: Negative for pain, discharge, redness and visual disturbance. Respiratory: Negative for cough, shortness of breath and wheezing. Cardiovascular: Negative for chest pain, palpitations and leg swelling. Gastrointestinal: Negative for abdominal pain, blood in stool, constipation, diarrhea, nausea and vomiting. Genitourinary: Negative for difficulty urinating, dysuria and frequency. Musculoskeletal: Negative for arthralgias, back pain, joint swelling and myalgias. Skin: Negative for rash and wound. Neurological: Negative for dizziness, tremors, seizures, syncope and headaches. Psychiatric/Behavioral: Negative for behavioral problems, self-injury and suicidal ideas. The patient is not nervous/anxious. Hematological: Does not bruise/bleed easily. Endocrine: Negative for polydipsia, polyphagia and polyuria. Allergic/Immunologic: Negative for environmental allergies and food allergies. PAST MEDICAL HISTORY Past Medical History: Diagnosis Date Abnormal [...] 25.0-29.9) SVT (supraventricular tachycardia) (HCC) Torn meniscus Past Surgical History: Procedure Laterality Date DILATION AND CURETTAGE OF UTERUS 06/30/2023 KNEE ARTHROSCOPY W/ MENISCAL REPAIR Left 2010 Torn Meniscus OTHER SURGICAL HISTORY HPV observation- abnormal pap smear PAP SMEAR 03/07/2014 [facility] [place] [facility] Drug Therapy -SVT TONSILLECTOMY 1992 family history includes Bladder Cancer in her maternal grandfather; COPD in her maternal grandfather; Cervical cancer in her maternal grandmother; Emphysema in her maternal grandfather; Heart diseasein her maternal grandmother; Hypertension in her mother; Lupus in her mother; Multiple sclerosis inher father's sister and another family member; Ovarian cancer in an other family member. OBJECTIVE: Visit Vitals BP 110/78 (BP Location: Left arm, Patient Position: Sitting, BP Cuff Size: Adult long) Pulse 94 Temp 98 ??F Resp 18 Wt 178 lb 12.8 oz LMP 12/11/2023 SpO2 98% BMI 33.78 kg/m?? OB Status Smoking Status Former BSA 1.87 m?? Physical Exam Vitals and nursing note reviewed. Constitutional: General: She is not in acute distress. Appearance: Normal appearance. HENT: Head: Normocephalic and atraumatic. Right Ear: External ear normal. Left Ear: External ear normal. Nose: Nose normal. Mouth/Throat: Mouth: Mucous membranes are moist. Eyes: Extraocular Movements: Extraocular movements intact. Conjunctiva/sclera: Conjunctivae normal. Neck: Vascular: No carotid bruit. Cardiovascular: Rate and Rhythm: Normal rate and regular rhythm. Pulses: Normal pulses. Heart sounds: Normal heart sounds. No murmur heard. Pulmonary: Effort: Pulmonary effort is normal. Breath sounds: Normal breath sounds. No wheezing or rhonchi. Abdominal: General: Bowel sounds are normal. There is no distension. Palpations: Abdomen is soft. There is no mass. Tenderness: There is no abdominal tenderness. Musculoskeletal: General: Normal range of motion. Cervical back: Normal range of motion and neck supple. Right lower leg: No edema. Left lower leg: No edema. Lymphadenopathy: Cervical: No cervical adenopathy. Skin: General: Skin is warm and dry. Capillary Refill: Capillary refill takes 2 to 3 seconds. Findings: No rash. Neurological: General: No focal deficit present. Mental Status: She is alert and oriented to person, place, and time. Psychiatric: Mood and Affect: Mood normal. Behavior: Behavior normal. Thought Content: Thought content normal. Judgment: Judgment normal. ASSESSMENT AND PLAN: No follow-ups on file. Problem List Items Addressed This Visit Insomnia Refill trazodone Fu in 6 months Encounter for wellness examination in adult - Primary Reviewed Ht/Wt/BMI Recommend eye exam yearly Recommend dental exams twice a year Balance work/leisure activities Exercises is recommended most days of the week (appropriate as chronic conditions allow) Follow up yearly and prn documented in this encounter Plan of Treatment Upcoming Encounters Date Type Department Care Team (Late st Contact Info) Description 10/26/2024 1:20 PM EDT Visit [facility] [address] [place] [address] [place] [address] Vidya Sepulveda PA [address] [facility] [place] [address] 12/15/2024 3:00 PM EDT Office Visit [facility] [address] [facility] [place] [address] Slava Castro DO [address] [facility] [address] [place] [address] documented as of this encounter Goals Goal Patient Goal Type Associated Problems Recent Progress Patient-Stated? Author Reminders Care Plan OB Reminders No Open Scheduling, Background documented as of this encounter Visit Diagnoses Diagnosis Encounter for wellness examination in adult- Primary Primary insomnia Persistent disorder of initiating or maintaining sleep documented in this encounter Additional Health Concerns Active Problems Noted Date Diagnosed Date OB Reminders 02/11/2024 documented as of this encounter Care Teams Keypunch Operator Relationship Specialty Start Date End Date Parag Bradley MD [address] [place] [address] PCP - General Family Medicine 08/14/22 Анна Ha NP [address] [place] [address] PCP - [facility] 08/25/23 documented as of this encounter
--- OUTSIDE RECORDS SUMMARY | 2024-09-09 11:50 | XMS_ITS | Encounter Summary ---
Author Organization [facility] Address [address] [place] [address] Care Team Providers Care Social Service Liaison Name Role Phone Parag Bradley MD Primary Care Provider [phone] Анна Ha NP Unavailable [phone] Reason for Visit * Reason Comments Routine Visit Encounter Details Date Type Department Care Team (Latest Contact Info) Description 09/09/2024 11:50 AM EDT Routine [facility] [place] [facility] [address] [place] [phone] Slava Castro DO [address] [facility] [address] [place], [facility] 37 weeks gestation of ([facility]); Third trimester ([facility]); Antepartum multigravida of advanced maternal age ([facility]); SGA (small for gestational age) ([facility]); History of gestational diabetes Social History Tobacco [...] How often do you attend chur or holiness services? More than 4 times [...] Recorded Patient Health Questionnaire-2 Score 0 08/06/2024 [facility] Occupat ional Health - Occupational Stress [...] a senior care (including now)? No 05/19/2023 Housing Stability Vital Sign Answer Leonidas e Recorded In the last 12 months, was t here a time when you were not able to pay the mortgage or rent on time? No 08/31/2024 In the past 12 months, how m any times have you moved where you were living? 0 08/31/2024 At any time in the past 12 m [facility], were you homeless or living in a senior care (including now)? No 08/31/2024 Estimated Date of [...] Sign Reading Time Taken Comments Blood Pressure 120/74 09/09/2024 12:02 PM EDT Pulse - - Temperature - - Respiratory Rate - - Oxygen Saturation - - Inhaled Oxygen Concentration - - Weight 80.3 kg (177 lb 1.9 oz) 09/09/2024 12:02 PM EDT Height - - Body Mass Index 33.47 09/01/2023 10:37 AM EDT documented in this encounter Progress Notes * Ramandeep Ferguson LPN - 09/09/2024 11:50 AM EDT Reason for Appointment: Patient ID: [...] abnormal pap smear PAP SMEAR 03/07/2014 [facility] [place] [facility] Drug Therapy -SVT TONSILLECTOMY 1992 [...] nursing note reviewed. Exam conducted with a charter boat operator present. Vitals: Estimated body mass index is 33.47 kg/m?? as calculated from the following: Height as of 24: 5' 1 . Weight as of this encounter: 177 lb 1.9 oz. BP: 120/74 Patient's last menstrual period was 12/11/2023. ASSESSMENT & PLAN ICD-10-CM 1. 37 weeks gestation of ([facility]) Z3A.37 POCT urinalysis dipstick manually resulted 2. Third trimester ([facility]) Z34.93 POCT urinalysis dipstick manually resulted 3. Antepartum multigravida of advanced maternal age ([facility]) O09.529 4. SGA (small for gestational age) ([facility]) P05.10 5. History of gestational diabetes Z86.32 Patient presents today for a routine obstetrics appointment. Patient is currently 37w6d with a Estimated Date of Delivery: 09/24/24. Patient to return to clinic accordingly for routine OB care. Documented by Ramandeep Ferguson LPN. on behalf of: Slava Castro DO documented in this encounter Plan of Treatment Upcoming Encounters Date Type Department Care Team (Late st Contact Info) Description 10/26/2024 1:20 PM EDT Visit [facility] [address] [place] [phone] Vidya Sepulveda PA [address] [facility] [place] [address] 12/15/2024 3:00 PM EDT Office Visit [facility] [address] [facility] [place] [address] Slava Castro DO [address] [place] [address] documented as of this encounter Goals Goal Patient Goal Type Associated Problems Recent Progress Patient-Stated? Author Reminders Care Plan OB Reminders No Open Scheduling, Background documented as of this encounter Procedures Procedure Name Priority Date/Time Associated Diagnosis Comments POCT URINALYSIS DIPSTICK Routine 09/09/2024 12:09 PM EDT 37 weeks gestation of ([facility]) Third trimester ([facility]) documented in this encounter Results * (ABNORMAL) POCT urinalysis dipstick manually resulted (09/09/2024 12:09 PM EDT) Color, UA Yellow Clarity, UA Clear Glucose, UA Negative Negative - 2000(110) ++++ mg/dL Bilirubin, UA Negative Negative - 4(70) +++ mg/dL Ketones, UA Negative Negative - 160(16) ++++ mg/dL Spec Grav, UA 1.020 1 - 1.03 Blood, UA Negative Negative - 50 Richy/mcL pH, UA 6.5 5 - 9 Protein, UA Positive Negative - 2000(20) ++++ mg/dL Comment:30 Urobilinogen, UA 0.2 0.2 - 12 mg/dL Leukocytes, UA Negative Negative - 500+++ Tano/mcL Nitrite, UA Negative Negative - Positive Urine 09/09/2024 12:0 9 PM EDT Slava Castro DO POINT OF CARE TEST ENTER/EDIT OR DERABLES Final Result documented in this encounter Visit Diagnoses Diagnosis 37 weeks gestation of ([facility]) Third trimester ([facility]) state, incidental Antepartum multigravida of advanced maternal age ([facility]) SGA (small for gestational age) ([facility]) [id number] without mention of malnutrition, unspecified (weight) History of gestational diabetes Personal history of other genital system and obstetric disorders documented in this encounter Additional Health Concerns Active Problems Noted Date Diagnosed Date OB Reminders 02/11/2024 documented as of this encounter Care Teams Social Service Liaison Relationship Specialty Start Date End Date Parag Bradley MD [address] [place] [address] PCP - General Family Medicine 08/14/22 Анна Ha NP [address] [place] [address] [facility] 08/25/23 documented as of this encounter
--- OUTSIDE RECORDS SUMMARY | 2024-09-14 10:00 | XMS_ITS | Encounter Summary ---
Author Organization [facility] Address [address] [place] [address] Care Team Providers Care Residential Substance Abuse Counselor Name Role Phone Parag Bradley MD Primary Care Provider [phone] Анна Ha NP Unavailable [phone] Reason for Visit * Reason Comments Routine Visit Encounter Details Date Type Department Care Team (Latest Contact Info) Description 09/14/2024 10:00 AM EDT Routine MIRANDA Currei OBGYN [address] [place] [phone] Slava Castro DO [address] [place], [facility]11 38 weeks gestation of ([facility]); Third trimester ([facility]); Antepartum multigravida of advanced maternal age ([facility]); SGA (small for gestational age) ([facility]); History of gestational diabetes Social History Tobacco [...] How often do you attend chur or latter-day services? More than 4 times [...] Date Recorded Patient Health Questionnaire-2 Score 0 09/16/2024 [facility] of Occupat ional Health - Occupational Stress [...] in a correction (including now)? No 05/19/2023 Housing Stability Vital [...] time in the past 12 m [facility], were you homeless or living in a correction (including now)? No 08/31/2024 Estimated Date of [...] Sign Reading Time Taken Comments Blood Pressure 110/70 09/14/2024 9:59 AM EDT Pulse - - Temperature - - Respiratory Rate - - Oxygen Saturation - - Inhaled Oxygen Concentration - - Weight 81.1 kg (178 lb 12.8 oz) 09/14/2024 9:59 AM EDT Height - - Body Mass Index 33.78 09/01/2023 10:37 AM EDT documented in this encounter Functional Status * Over the past 2 weeks, how often have you been bothered by any of the following problems? Question Answer Date of Assessment Author Little interest or pleasure in doing things Not at all 09/16/2024 3:22 PM EDT Vidya Oliva LPN Feeling down, depressed, or hopeless Not at all 09/16/2024 3:22 PM EDT Vidya Oliva LPN Patient Health Questionnaire -2 Score 0 09/16/2024 3:22 PM EDT Vidya Oliva LPN documented as of this encounter Plan of Treatment Upcoming Encounters Date Type Department Care Team (Late st Contact Info) Description 10/26/2024 1:20 PM EDT Visit MIRANDA NOEILL [address] [place] [address] Vidya Sepulveda PA [address] [place], [place] [phone] 12/15/2024 3:00 PM EDT Office Visit MIRANDA ONEILL [address] [place] [address] Slava Castro DO [address] [place], [place] [phone] documented as of this encounter Goals Goal Patient Goal Type Associated Problems Recent Progress Patient-Stated? Author Reminders Care Plan OB Reminders No Open Scheduling, Background documented as of this encounter Procedures Procedure Name Priority Date/Time Associated Diagnosis Comments POCT URINALYSIS DIPSTICK Routine 09/14/2024 10:04 AM EDT 38 weeks gestation of ([facility]) Third trimester ([facility]) documented in this encounter Results * (ABNORMAL) POCT urinalysis dipstick manually resulted (09/14/2024 10:04 AM EDT) Color, UA Yellow Clarity, UA Clear Glucose, UA Negative Negative - 2000(110) ++++ mg/dL Bilirubin, UA Negative Negative - 4(70) +++ mg/dL Ketones, UA Negative Negative - 160(16) ++++ mg/dL Spec Grav, UA 1.020 1 - 1.03 Blood, UA Negative Negative - 50 Richy/mcL pH, UA 7.0 5 - 9 Protein, UA Positive Negative - 1999(20) ++++ mg/dL Comment:30 Urobilinogen, UA 1.0 0.2 - 12 mg/dL Leukocytes, UA Negative Negative - 500+++ Tano/mcL Nitrite, UA Negative Negative - Positive Urine 09/14/2024 10:0 4 AM EDT Slava Castro DO POINT OF CARE TEST ENTER/EDIT OR DERABLES Final Result documented in this encounter Visit Diagnoses Diagnosis 38 weeks gestation of ([facility]) Third trimester ([facility]) state, incidental Antepartum multigravida of advanced maternal age ([facility]) SGA (small for gestational age) ([facility]) Vhtsa-ijg-utusl without mention of malnutrition, unspecified (weight) History of gestational diabetes Personal history of other genital system and obstetric disorders documented in this encounter Additional Health Concerns Active Problems Noted Date Diagnosed Date OB Reminders 02/11/2024 documented as of this encounter Care Teams Residential Substance Abuse Counselor Relationship Specialty Start Date End Date Parag Bradley MD [address] [place] [address] PCP - General Family Medicine 08/14/22 Анна Ha NP [address] [place] [address] PCP - [facility] 08/25/23 documented as of this encounter
--- OUTSIDE RECORDS SUMMARY | 2024-09-21 10:36 | XMS_ITS | Encounter Summary ---
Author Organization [facility] Address [address] [place] [address] Care Team Providers Care Linux Engineer Name Role Phone Parag Bradley MD Primary Care Provider [phone] Анна Ha NP Unavailable [phone] Encounter Details Date Type Department Care Team (Late st Contact Info) Description 09/14/2024 Clinisync Result Encounter NOMS External Department Unsolicited Slava Castro, DO [address] [facility] [place] [address] Social History Tobacco Use Types Packs/Day Years [...] 0 08/06/2024 [facility] ional Health - Occupational [...] any time in the past 12 m [facility], were you homeless or living [...] 10/26/2024 1:20 PM EDT Visit [facility] ONE[facility] [address] [place] [address] Vidya Sepulveda PA [address] [facility] [place], [place] [address] 12/15/2024 3:00 PM EDT Office Visit [facility] OBGYN [address] [address] Slava Castro DO [address] [facility] [place] [address] documented as of this encounter Goals Goal Patient Goal Type Associated Problems Recent Progress Patient-Stated? Author Reminders Care Plan OB Reminders No Open Scheduling, Background documented as of this encounter Procedures Procedure Name Priority Date/Time Associated Diagnosis Comments HP CBC WITH PLATELET NO DIFFERENTIAL Routine 09/14/2024 4:45 PM EDT [facility] UA (CLEAN/CATCH) GLASS MOLD REPAIRER/MICRO IF IND. Routine 09/14/2024 12:40 PM EDT [facility] DRUG SCREEN RAPID (URINE) Routine 09/14/2024 12:40 PM EDT documented in this encounter Results * (ABNORMAL) HP CBC WITH PLATELET NO DIFFERENTIAL (09/14/2024 4:45 PM EDT) [facility] WBC 12.0(H) 4.0 - 11.0 10 3/uL TBH TBH RBC 4.53 4.20 - 5.40 10 6/uL TBH TBH HGB 14.0 12.0 - 16.0 g/dL TBH TBH HCT 41.2 36.0 - 48.0 % TBH TBH MCV 90.9 81.0 - 99.0 fL TBH TBH MCH 30.9 26.7 - 34.0 pg TBH TBH MCHC 34.0 29.9 - 35.2 g/dL TBH TBH RDW 14.3 11.0 - 15.0 % TBH TBH PLT 235 150 - 450 10 3/uL TBH TBH MPV 11.4 9.5 - 13.5 fL [facility]H 09/14/2024 4:45 PM EDT 09/14/2024 4:54 PM EDT Narrative [facility] - 09/14/2024 5:02 PM EDT [facility] [place] Gloria DO [facility] Final Result Performing Organization Address [facility]/ZIP Co de Phone Number [facility] * [facility] DRUG SCREEN RAPID (URINE) (09/14/2024 12:40 PM EDT) CANNABINOID SCREEN URINE NEGATIVE NEGATIVE TBH PHENCYCLIDINE SCREEN URINE NEGATIVE NEGATIVE TBH COCAINE SCREEN URINE NEGATIVE NEGATIVE TBH METHAMPHETAMINES SCREEN URINE NEGATIVE NEGATIVE TBH OPIATE SCREEN URINE NEGATIVE NEGATIVE TBH AMPHETAMINE SCREEN URINE NEGATIVE NEGATIVE TBH BENZODIAZEPINES SCREEN URINE NEGATIVE NEGATIVE TBH TRICYCLIC ANTIDEPRESSANT URINE NEGATIVE NEGATIVE TBH METHADONE SCREEN URINE NEGATIVE NEGATIVE TBH BARBITURATES SCREEN URINE NEGATIVE NEGATIVE TBH OXYCODONE SCREEN URINE NEGATIVE NEGATIVE TBH BUPRENORPHINE SCREEN URINE NEGATIVE NEGATIVE TB[facility] Comment: DRUG CLASS TEST SYSTEM CUT-OFF CONCENTRATIONS ARE FOLLOWS: AMP (Amphetamine): 500 ng/mL BAR (Barbiturates): 200 ng/mL BZO (Benzodiazepines): 150 ng/mL BUP (Buprenorphine): 10 ng/mL MARLON (Cocaine): 150 ng/mL mAMP (Methamphetamine): 500 ng/mL MTD (Methadone): 200 ng/mL OPI (Opiates): 100 ng/mL OXY (Oxycodone): 100 ng/mL PCP (Phencyclidine): 25 ng/mL THC (Cannabinoids): 50 ng/mL TCA (Trycyclic Antidepressants): 300 ng/mL 09/14/2024 12:4 0 PM EDT 09/15/2024 1:58 AM EDT Narrative [facility] - 09/15/2024 2:10 AM EDT Slava Gloria DO [facility] Final Result Performing Organization Address City/[facility]/ZIP Co de Phone Number [facility] * TB UA (CLEAN/CATCH) GLASS MOLD REPAIRER/MICRO IF IND. (09/14/2024 12:40 PM EDT) COLOR [...] us Slava Gloria DO [facility] Final Result [facility] documented in this encounter Visit Diagnoses Not on filedocumented in this encounter Additional Health Concerns Active Problems Noted Date Diagnosed Date OB Reminders 02/11/2024 documented as of this encounter Care Teams Linux Engineer Relationship Specialty Start Date End Date Parag Bradley MD [address] [place] [address] PCP - General Family Medicine 08/14/22 Анна Ha NP [address] [place] [address] PCP - [facility] 08/25/23 documented as of this encounter
--- OUTSIDE RECORDS SUMMARY | 2024-09-21 10:36 | XMS_ITS | Encounter Summary ---
Author Organization [facility] Address [address] [place] [address] Care Team Providers Care Stock Ranch Supervisor Name Role Phone Parag Bradley MD Primary Care Provider [phone] Анна Ha NP Unavailable [phone] Encounter Details Date Type Department Care [...] often do you attend chur ch or restorationism services? More than 4 times per year [...] Recorded Patient Health Questionnaire-2 Score 0 05/26/2023 [facility] of Occupat ional [facility] - Occupational Stress Questionnaire Answer Date [...] 1:20 PM EDT Visit MIRANDA ONEILL [address] [facility] [place] [address] Vidya Sepulveda PA [address] [place] [place] [address] 12/15/2024 3:00 PM EDT Office Visit MIRANDA ONEILL [address] [facility] [address] Orlin Castro DO [address] [facility] [place] [address] documented as of this encounter Procedures Procedure Name Priority Date/Time Associated Diagnosis Comments US OB TRANSVAGINAL 06/13/2023 11 :13 AM EDT [facility] PREG QUANT HCG Routine 06/13/2023 10 :49 AM EDT documented in this encounter Results * US OB TRANSVAGINAL (06/13/2023 11:13 AM EDT) Anatomical Region Laterality Modality Other 06/13/2023 11:1 3 AM EDT Narrative 06/13/2023 11:16 AM EDT The [address] [address] Ultrasound Report Signed Patient: ROXANNE MARSHALL MR#: [id number] : 1990 Acct:[id number] Age/Sex: 32 / F ADM Date: 06/13/23 Loc: [facility] Attending Dr: Orlin Castro D.O. Ordering Physician: Orlni Castro D.O. Date of Service: 06/13/23 Procedure(s): US OB transvaginal Accession Number(s): [id number] cc: Анна Ha NP; Orlin Castro D.O. The [place] [address] Patient Name: ROXANNE MARSHALL MRN: [facility]:[id number] date: 1990 Sex: F Assigned Patient Location: [facility] Current Patient Location: [facility] Accession/Order Number: [id number] Exam Date: 06/13/2023 09:58 Report Date: 06/13/2023 [...] Signed By: 06/13/23 1116 DD/ 1113 TD/TT: Voice Professor: Procedure Note Radiology, Radiologist, MD - 06/13/2023 [place] [address] Ultrasound Report Signed Patient: ROXANNE MARSHALL DMR#: [id number] : 1990Acct:[id number] Age/Sex: 32 / FADM Date: 06/13/23 Loc: [facility] Attending Dr: Orlin Castro D.O. Ordering Physician: Orlin Castro D.O. Date of Service: 06/13/23 Procedure(s): US OB transvaginal Accession Number(s): [id number] cc: Анна Ha NP; Orlin Castro D.O. [place] [address] Patient Name: ROXANNE MARSHALL MRN: [facility]:[id number] date: 1990 Sex: F Assigned Patient Location: [facility] Current Patient Location: [facility] Accession/Order Number: [id number] Exam Date: 06/13/2023 09:58 Report Date: 06/13/2023 [...] M.D. Signed By:06/13/23 1116 DD/ 1113 TD/TT: Voice Professor: us Generic External Data Provider [facility] [...] External Data Provider [facility] F inal Result [facility] documented in this encounter Visit Diagnoses Not on filedocumented in this encounter Care Teams Stock Ranch Supervisor Relationship Specialty Start Date End Date Parag Bradley MD [address] [place] [address] PCP - General Family Medicine 08/14/22 Анна Ha NP [address] [place] [address] PCP - [facility] 08/25/23 documented as of this encounter
--- OUTSIDE RECORDS SUMMARY | 2024-09-21 10:36 | XMS_ITS | Encounter Summary ---
Author Organization [facility] Address [address] [place] [address] Care Team Providers Care Superintendent Tests Name Role Phone Parag Bradley MD Primary Care Provider [phone] Анна Ha RESEARCH GENETICIST Unavailable [phone] Encounter Details Date Type Department Care Team (Late st Contact Info) Description 08/04/2024 Abstract [facility] [address] [place] [address] Анна Ha, VÍCTOR [address] [place] [address] Social History Tobacco Use Types Packs/Day Years [...] Score 0 08/06/2024 [facility] - Occupational Stress Questionnaire Answer Date [...] Info) Description 10/26/2024 1:20 PM EDT Visit NOMCorby ONEILL [address] [facility] [place] [address] Vidya Sepulveda PA [address] [facility] [address] [place], [place] [address] 12/15/2024 3:00 PM EDT Office Visit MIRANDA ONEILL [address] [facility] [place] [address] Slava Castro DO [address] [facility] [address] [place], [place] [address] documented as of this encounter Goals Goal Patient Goal Type Associated Problems Recent Progress Patient-Stated? Author Reminders Care Plan OB Reminders No Open Scheduling, Background documented as of this encounter Visit Diagnoses Not on filedocumented in this encounter Additional Health Concerns Active Problems Noted Date Diagnosed Date OB Reminders 02/11/2024 documented as of this encounter Care Teams Superintendent Tests Relationship Specialty Start Date End Date Parag Bradley MD [address] [place] [address] PCP - General Family Medicine 08/14/22 Анна Ha NP [address] [place] [address] PCP - [facility] 08/25/23 documented as of this encounter
--- OUTSIDE RECORDS SUMMARY | 2024-09-21 10:36 | XMS_ITS | Encounter Summary ---
Author Organization [facility] Address [address] [place] [address] Care Team Providers Care Briquetter Operator Name Role Phone Parag Bradley MD Primary Care Provider [phone] Анна Ha NP Unavailable [phone] Encounter Details Date Type Department Care [...] Recorded Patient Health Questionnaire-2 Score 0 05/26/2023 [facility] of Occupat ional [facility] - Occupational Stress Questionnaire Answer Date Recorded [...] 1:20 PM EDT Visit N[facility] ONEILL [address] [facility] [place] [address] Vidya Sepulveda PA [address] [facility] [address] [place], [place] [address] 12/15/2024 3:00 PM EDT Office Visit MIRANDA ONEILL [address] [facility] [place] [address] Orlin Castro DO [address] [facility] [address] [place], [place] [address] documented as of this encounter Procedures Procedure Name Priority Date/Time Associated Diagnosis Comments US OB TRANSVAGINAL 06/20/2023 12 :10 PM EDT documented in this encounter Results * US OB TRANSVAGINAL (06/20/2023 12:10 PM EDT) Anatomical Region Laterality Modality Other 06/20/2023 12:1 0 PM EDT Narrative 06/20/2023 12:12 PM EDT The [address] [address] Ultrasound Report Signed Patient: ROXANNE MARSHALL MR#: [id number] : 1990 Acct:[id number] Age/Sex: 32 / F ADM Date: 06/20/23 Loc: [facility] Attending Dr: Orlin Castro D.O. Ordering Physician: Orlin Castro D.O. Date of Service: 06/20/23 Procedure(s): US OB transvaginal Accession Number(s): [id number] cc: Анна Ha STAFF VETERINARIAN; Orlin Castro D.O. The [place] [address] Patient Name: ROXANNE MARSHALL MRN: [facility]:[id number] date: 1990 Sex: F Assigned Patient Location: [facility] Current Patient Location: [facility] Accession/Order Number: [id number] Exam Date: 06/20/2023 08:31 Report Date: 06/20/2023 [...] Signed By: 06/20/23 1212 DD/ 1210 TD/TT: Leave Specialist: Procedure Note Radiology, Radiologist, - 06/20/2023 [place] [address] Ultrasound Report Signed Patient: ROXANNE MARSHALL DMR#: [id number] : 1990Acct:[id number] Age/Sex: 32 / FADM Date: 06/20/23 Loc: [facility] Attending Dr: Orlin Castro D.O. Ordering Physician: Orlin Castro D.O. Date of Service: 06/20/23 Procedure(s): US OB transvaginal Accession Number(s): [id number] cc: Анна Ha STAFF VETERINARIAN; Orlin Castro D.O. [place] [id number] Patient Name: ROXANNE MARSHALL MRN: [facility]:[id number] date: 1990 Sex: F Assigned Patient Location: [facility] Current Patient Location: [facility] Accession/Order Number: [id number] Exam Date: 06/20/2023 08:31 Report Date: 06/20/2023 [...] M.D. Signed By:06/20/23 1212 DD/ 1210 TD/TT: Leave Specialist: us Generic External Data Provider [facility] Final Result documented in this encounter Visit Diagnoses Not on filedocumented in this encounter Care Teams Briquetter Operator Relationship Specialty Start Date End Date Parag Bradley MD [address] [place] [address] PCP - General Family Medicine 08/14/22 Анна Ha NP [address] [place] [address] PCP - [facility] 08/25/23 documented as of this encounter
--- OUTSIDE RECORDS SUMMARY | 2024-09-21 10:36 | XMS_ITS | Encounter Summary ---
Author Organization [facility] Address [address] [place] [address] Care Team Providers Care Job Service Specialist Name Role Phone Parag Bradley MD Primary Care Provider [phone] Анна Ha NP Unavailable [phone] Encounter Details Date Type Department Care [...] often do you attend chur ch or mandaeism services? More than 4 times per year 08/31/2024 Do you belong to any clubs o r organizations such as hinduism groups, unions, fraternal or athletic groups, or [...] Recorded Patient Health Questionnaire-2 Score 0 08/06/2024 [facility] of Occupat ional Health - Occupational [...] time in the past 12 m [facility], were you homeless or living in [...] PM EDT Visit [facility] Rosey ONEILL [address] [place] [address] Vidya Jackson PA [address] [place], [place] [address] 12/15/2024 3:00 PM EDT Office Visit MIRANDA ONEILL [address] [place] [address] Slava Castro, DO [address] [facility] [place] [address] documented as of this encounter Goals Goal [...] EDT Narrative 09/09/2024 8:14 AM EDT The [address] [address] Ultrasound Report Signed Patient: ROXANNE MARSHALL MR#: [id number] : 1990 Acct:[id number] Age/Sex: 34 / F ADM Date: 09/08/24 Loc: US Attending Dr: Vidya Jackson Ordering Physician: Vidya Jackson Date of Service: 09/08/24 Procedure(s): US OB BPP w non-stress Accession Number(s): [id number] cc: Анна Ha HIGH SCHOOL MATH TEACHER; Vidya Jackson The [address] [address] Patient Name: ROXANNE MARSHALL MRN: [id number] date: 1990 Sex: F Assigned Patient Location: US Current Patient Location: Accession/Order Number: [id number] Exam Date: 09/09/2024 08:04 Report Date: 09/09/2024 [...] Auguste M.D. 09/09/2024 8:12 AM Dictation Location: [place] [address] Electronically authenticated by: [id number] Y Date: 09/09/2024 08:12 Dictated By: Isatu Auguste M.D. Signed By: 09/09/24813 DD/ 1 TD/TT: Trucking Contractor: Procedure Note Radiology, Radiologist, - 09/09/2024 [place] [address] Ultrasound Report Signed Patient: ROXANNE MARSHALL [facility]#: [id number] : 1990Acct:[id number] Age/Sex: 34 / FADM Date: 09/08/24 Loc: US Attending Dr: iVdya Jackson Ordering Physician: Vidya Jackson Date of Service: 09/08/24 Procedure(s): US OB BPP w non-stress Accession Number(s): [id number] cc: Анна Ha NP; Vidya Jackson [place] [id number] Patient Name: ROXANNE MARSHALL MRN: [facility]:[id number] date: 1990 Sex: F Assigned Patient Location: Current Patient Location: Accession/Order Number: [id number] Exam Date: 09/09/2024 08:04 Report Date: 09/09/2024 [...] Auguste M.D. 09/09/2024 8:12 AM Dictation Location: [place] [address] Electronically authenticated by: [id number] Y Date: 508:12 Dictated By: Isatu Auguste M.D. Signed By:09/09/24813 DD/ 1 TD/TT: Trucking Contractor: us Generic External Data Provider [facility] Final Result documented in this encounter Visit Diagnoses Not on filedocumented in this encounter Additional Health Concerns Active Problems Noted Date Diagnosed Date OB Reminders 02/11/2024 documented as of this encounter Care Teams Job Service Specialist Relationship Specialty Start Date End Date Parag Bradley MD [address] [place] [address] PCP - General Family Medicine 08/14/22 Анан Ha NP [address] [place] [address] PCP - [facility] 08/25/23 documented as of this encounter
--- OUTSIDE RECORDS SUMMARY | 2024-09-21 10:36 | XMS_ITS | Encounter Summary ---
Author Organization [facility] Address [address] [place] [address] Care Team Providers Care Laboratory Inspector Name Role Phone Parag Bradley MD Primary Care Provider Анна Ha NP Unavailable [phone] Encounter Details Date Type Department Care Team (Late st Contact Info) Description 07/26/2024 Abstract [facility] [place] [facility] [address] [facility] [place] [address] Slava Castro DO [address] [facility] [address] [place], [place] [address] Social History Tobacco Use Types Packs/Day Years [...] week 05/19/2023 How often do you attend [facility] or moravian services? More than 4 times [...] Recorded Patient Health Questionnaire-2 Score 0 06/08/2024 [facility] - Occupational Stress Questionnaire [...] 1:20 PM EDT Visit NOMCorby ONEILL [address] [place] [address] Vidya Sepulveda PA [address] [facility] [address] [place], [place] [address] 12/15/2024 3:00 PM EDT Office Visit MIRNADA ONEILL [address] [place] [address] Slava Castro DO [address] [facility] [address] [place], [place] [address] documented as of this encounter Goals Goal Patient Goal Type Associated Problems Recent Progress Patient-Stated? Author Reminders Care Plan OB Reminders No Open Scheduling, Background documented as of this encounter Visit Diagnoses Not on filedocumented in this encounter Additional Health Concerns Active Problems Noted Date Diagnosed Date OB Reminders 02/11/2024 documented as of this encounter Care Teams Laboratory Inspector Relationship Specialty Start Date End Date Parag Bradley MD [address] [place] [address] PCP - General Family Medicine 08/14/22 Анна Ha NP [address] [place] [address] [facility] 08/25/23 documented as of this encounter
--- OUTSIDE RECORDS SUMMARY | 2024-09-21 10:36 | XMS_ITS | Encounter Summary ---
Author Organization [facility] Address [address] [place] [address] Care Team Providers Care Aerosol Supervisor Name Role Phone Parag Bradley MD Primary Care Provider [phone] Анна Ha WEATHERIZATION AND HOUSING INSPECTOR Unavailable [phone] Encounter Details Date Type Department Care Team (Late st Contact Info) Description 09/07/2024 Bamboo flowsheet [facility] [address] [place] [address] Анна Ha, VÍCTOR [address] [place] [address] Social History Tobacco Use Types Packs/Day Years [...] How often do you attend chur or mormon services? More than 4 times [...] 08/06/2024 [facility] of Occupat ional Health - Occupational [...] any time in the past 12 m [facility], were you homeless or living in [...] PM EDT Visit [facility] Rosey ONEILL [address] [facility] [place] [address] Vidya Sepulveda PA [address] [facility] [place] [address] 12/15/2024 3:00 PM EDT Office Visit [facility] Rosey ONEILL [address] [facility] [place] [address] Slava Castro DO [address] [facility] [place] [address] documented as of this encounter Goals Goal Patient Goal Type Associated Problems Recent Progress Patient-Stated? Author Reminders Care Plan OB Reminders No Open Scheduling, Background documented as of this encounter Visit Diagnoses Not on filedocumented in this encounter Additional Health Concerns Active Problems Noted Date Diagnosed Date OB Reminders 02/11/2024 documented as of this encounter Care Teams Aerosol Supervisor Relationship Specialty Start Date End Date Parag Bradley MD [address] [place] [address] PCP - General Family Medicine 08/14/22 Анна Ha NP [address] [place] [address] PCP - [facility] 08/25/23 documented as of this encounter
--- OUTSIDE RECORDS SUMMARY | 2024-09-21 10:36 | XMS_ITS | Encounter Summary ---
Author Organization [facility] Address [address] [place] [address] Care Team Providers Care Fine Hairer Name Role Phone Parag Bradley MD Primary Care Provider [phone] Анна Ha NP Unavailable [phone] Encounter Details Date Type Department Care [...] often do you attend chur ch or religion services? More than 4 times per year [...] any time in the past 12 m [facility], were you homeless or living in a [...] Visit [facility] Rosey ONEILL [address] [place] [address] Vidya Sepulveda PA [address] [place], [place] [address] 12/15/2024 3:00 PM EDT Office Visit MIRANDA ONEILL [address] [place] [address] Orlin Castro DO [address] [place] [address] [place] [address] documented as of this encounter Goals Goal [...] EDT Narrative 09/11/2024 2:25 PM EDT The [address] [address] Ultrasound Report Signed Patient: ROXANNE MARSHALL MR#: [id number] : 1990 Acct:[id number] Age/Sex: 34 / F ADM Date: 09/11/24 Loc: [facility] Attending Dr: Orlin Castro D.O. Ordering Physician: Orlin Castro D.O. Date of Service: 09/11/24 Procedure(s): US OB BPP w non-stress Accession Number(s): [id number] cc: Анна Ha ALIGNING INSPECTOR; Orlin Castro D.O. The [address] [address] Patient Name: ROXANNE MARSHALL MRN: [facility]:[id number] date: 1990 Sex: F Assigned Patient Location: [facility] Current Patient Location: Accession/Order Number: [id number] Exam Date: 09/11/2024 14:21 Report Date: 09/11/2024 [...] Sheets M.D. 09/11/2024 2:23 PM Dictation Location: [place] [address] Electronically authenticated by: [id number] Y Date: 09/11/2024 14:23 Dictated By: Jake Sheets M.D. Signed By: 09/11/241424 DD/ 22 TD/TT: Ship Cleaner: Procedure Note Radiology, Radiologist, MD - 09/11/2024 [place] [address] Ultrasound Report Signed Patient: ROXANNE MARSHALL DMR#: [id number] : 1990Acct:[id number] Age/Sex: 34 / FADM Date: 09/11/24 Loc: [facility] Attending Dr: Orlin Castro D.O. Ordering Physician: Orlin Castro D.O. Date of Service: 09/11/24 Procedure(s): US OB BPP w non-stress Accession Number(s): [id number] cc: Анна Ha ALIGNING INSPECTOR; Orlin Castro D.O. The [place] [id number] Patient Name: ROXANNE MARSHALL MRN: [id number] date: 1990 Sex: F Assigned Patient Location: [facility] Current Patient Location: Accession/Order Number: [id number] Exam Date: 09/11/2024 14:21 Report Date: 09/11/2024 [...] Sheets M.D. 09/11/2024 2:23 PM Dictation Location: [employer] Electronically authenticated by: [id number] Y Date: 4:23 Dictated By: Jake Sheets M.D. Signed By:09/11/24 1425 DD/ 1423 TD/TT: Ship Cleaner: us Generic External Data Provider [facility] Final Result documented in this encounter Visit Diagnoses Not on filedocumented in this encounter Additional Health Concerns Active Problems Noted Date Diagnosed Date OB Reminders 02/11/2024 documented as of this encounter Care Teams Fine Hairer Relationship Specialty Start Date End Date Parag Bradley MD [address] [place] [address] PCP - General Family Medicine 08/14/22 Анна Ha NP [address] [place] [address] PCP - [facility] 08/25/23 documented as of this encounter
--- OUTSIDE RECORDS SUMMARY | 2024-09-21 10:36 | XMS_ITS | Encounter Summary ---
Author Organization [facility] Address [address] [place] [address] Care Team Providers Care Airport Security Screener Name Role Phone Parag Bradley MD Primary Care Provider [phone] Анна Ha NP Unavailable [phone] Encounter Details Date Type Department Care [...] Recorded Patient Health Questionnaire-2 Score 0 08/06/2024 [facility] of Occupat ional Health - Occupational [...] any time in the past 12 m [facility], were you homeless or living in [...] Visit [facility] Rosey ONEILL [address] [place] [address] Vidya Sepulveda PA [address] [place], [place] [address] 12/15/2024 3:00 PM EDT Office Visit MIRANDA ONEILL [address] [place] [address] Slava Castro, DO [address] [facility] [place] [address] documented as of this encounter Goals Goal [...] (CDC) and [facility] STREP GP B CULTURE+RFLX [place] [employer] [facility] STREP [...] [facility] STREP GP B CULTURE+RFLX Performed at: CB - [facility] STREP GP B CULTURE+RFLX [address] [place], [place] [id number] [facility] STREP GP B CULTURE+RFLX Digital Forensics Examiner: Tony Bynum PhD, Phone: [phone] [facility] 09/02/2024 10:3 5 AM EDT 09/02/2024 8:46 PM EDT Narrative [facility] - 09/07/2024 4:09 PM EDT us Generic External Data Provider LAB BLOOD ORDERAB LES Final Result [facility] documented in this encounter Visit Diagnoses Not on filedocumented in this encounter Additional Health Concerns Active Problems Noted Date Diagnosed Date OB Reminders 02/11/2024 documented as of this encounter Care Teams Airport Security Screener Relationship Specialty Start Date End Date Parag Bradley MD [address] [place] [address] PCP - General Family Medicine 08/14/22 Анна Ha NP [address] [place] [address] PCP - [facility] 08/25/23 documented as of this encounter
--- OUTSIDE RECORDS SUMMARY | 2024-09-21 10:36 | XMS_ITS | Encounter Summary ---
Author Organization [facility] Address [address] [place] [address] Care Team Providers Care General Passenger Agent Name Role Phone Parag Bradley MD Primary Care Provider [phone] Анна Ha NP Unavailable [phone] Encounter Details Date Type Department Care [...] often do you attend chur ch or presybeterian services? More than 4 times per year [...] 0 08/06/2024 [facility] - Occupational Stress [...] time in the past 12 m [facility], were you homeless or living in a [...] 1:20 PM EDT Visit [facility] ONE[facility] [address] [place] [address] Vidya Sepulveda PA [address] [place], [place] [address] 12/15/2024 3:00 PM EDT Office Visit MIRANDA ONEILL [address] [place] [address] Slava Castro DO [address] [place] [address] documented as of this encounter Goals Goal Patient Goal Type Associated Problems Recent Progress Patient-Stated? Author Reminders Care Plan OB Reminders No Open Scheduling, Background documented as of this encounter Visit Diagnoses Not on filedocumented in this encounter Additional Health Concerns Active Problems Noted Date Diagnosed Date OB Reminders 02/11/2024 documented as of this encounter Care Teams General Passenger Agent Relationship Specialty Start Date End Date Parag Bradley MD [address] [place] [address] PCP - General Family Medicine 08/14/22 Анна Ha NP [address] [place] [address] PCP - [facility] 08/25/23 documented as of this encounter
--- OUTSIDE RECORDS SUMMARY | 2024-09-21 10:36 | XMS_ITS | Encounter Summary ---
Author Organization [facility] Address [address] [place] [address] Care Team Providers Care Profiling Machine Operator Name Role Phone Parag Bradley MD Primary Care Provider [phone] Анна Ha NP Unavailable [phone] Encounter Details Date Type Department Care Team (Late st Contact Info) Description 09/14/2024 Bamboo flowsheet [facility] [place] OBGYN [address] [place] [address] Slava Castro DO [address] [facility] [address] [place], [facility] Social History Tobacco Use Types Packs/Day [...] week 08/31/2024 How often do you attend [facility] or mu-ism services? More than 4 times [...] 0 08/06/2024 [facility] - Occupational [...] PM EDT Visit [facility] [address] [place] [address] Vidya Sepulveda PA [address] [facility] [place] [address] 12/15/2024 3:00 PM EDT Office Visit [facility] [address] [place] [address] Slava Castro DO [address] [facility] [address] [place], [place] [address] documented as of this encounter Goals Goal Patient Goal Type Associated Problems Recent Progress Patient-Stated? Author Reminders Care Plan OB Reminders No Open Scheduling, Background documented as of this encounter Visit Diagnoses Not on filedocumented in this encounter Additional Health Concerns Active Problems Noted Date Diagnosed Date OB Reminders 02/11/2024 documented as of this encounter Care Teams Profiling Machine Operator Relationship Specialty Start Date End Date Parag Bradley MD [address] [place] [address] PCP - General Family Medicine 08/14/22 Анна Ha NP [address] [place] [address] PCP - [facility] 08/25/23 documented as of this encounter
--- OUTSIDE RECORDS SUMMARY | 2024-09-21 10:36 | XMS_ITS | Encounter Summary ---
Author Organization [facility] Address [address] [place] [address] Care Team Providers Care Oil Well Cable Tool Operator Name Role Phone Parag Bradley MD Primary Care Provider [phone] Анна Ha NP Unavailable Encounter Details Date [...] 0 05/26/2023 [facility] - Occupational Stress Questionnaire Answer [...] 1:20 PM EDT Visit [facility] [facility] [address] [place] [address] Vidya Sepulveda PA [address] [facility] [place] [address] 12/15/2024 3:00 PM EDT Office Visit MIRANDA ONEILL [address] [place] [place] [address] Orlin Castro DO [address] [facility] [place] [address] documented as of this encounter Procedures Procedure Name Priority Date/Time Associated Diagnosis Comments US OB TRANSVAGINAL 06/26/2023 10 :14 AM EDT documented in this encounter Results * US OB TRANSVAGINAL (06/26/2023 10:14 AM EDT) Anatomical Region Laterality Modality Other 06/26/2023 10:1 4 AM EDT Narrative 06/26/2023 10:16 AM EDT The [address] [address] Ultrasound Report Signed Patient: ROXANNE MARSHALL MR#: [id number] : 1990 Acct:[id number] Age/Sex: 32 / F ADM Date: 06/26/23 Loc: [facility] Attending Dr: Orlin Castro D.O. Ordering Physician: Orlin Castro D.O. Date of Service: 06/26/23 Procedure(s): US OB transvaginal Accession Number(s): [id number] cc: Анна Ha HOOKER OPERATOR; Orlin Castro D.O. The [address] [address] Patient Name: ROXANNE MARSHALL MRN: [id number] date: 1990 Sex: F Assigned Patient Location: [facility] Current Patient Location: [facility] Accession/Order Number: [id number] Exam Date: 06/26/2023 09:09 Report Date: 06/26/2023 [...] Signed By: 06/26/23 1016 DD/ 1014 TD/TT: Data Administrator: Procedure Note Radiology, Radiologist, MD - 06/26/[address] [address] Ultrasound Report Signed Patient: ROXANNE MARSHALL DMR#: [id number] : 1990Acct:[id number] Age/Sex: 32 / FADM Date: 06/26/23 Loc: [facility] Attending Dr: Orlin Castro D.O. Ordering Physician: Orlin Castro D.O. Date of Service: 06/26/23 Procedure(s): US OB transvaginal Accession Number(s): [id number] cc: Анна Ha NP; Orlin Castro D.O. [address] [address] Patient Name: ROXANNE MARSHALL MRN: [id number] date: 1990 Sex: F Assigned Patient Location: [facility] Current Patient Location: [facility] Accession/Order Number: [id number] Exam Date: 06/26/2023 09:09 Report Date: 06/26/2023 [...] M.D. Signed By:06/26/23 1016 DD/ 1014 TD/TT: Data Administrator: us Generic External Data Provider [facility] Final Result documented in this encounter Visit Diagnoses Not on filedocumented in this encounter Care Teams Oil Well Cable Tool Operator Relationship Specialty Start Date End Date Parag Bradley MD [address] [place] [address] PCP - General Family Medicine 08/14/22 Анна Ha NP [address] [place] [address] PCP - [facility] 08/25/23 documented as of this encounter
--- OUTSIDE RECORDS SUMMARY | 2024-09-21 10:36 | XMS_ITS | Patient Health Record ---
Author Organization [facility] Address [address] [place] [address] Care Team Providers Care Registered Travel Nurse Name Role Phone Alishaelzbieta Naida Primary Care Provider Reason For Referral No Information Medications Medication SIG (Take, Route, Frequency, Duration) Notes Start Date End Date Status Zoloft Unknown TRAZODONE Unknown Acetaminophen Extra Strength 500 MG 1 tablet as needed Orally every 6 hrs 01/02/2024 Active Encounters Encounter Location Date Provider Diagnosis [address] [address] 12/25/2023 Naida Valera Cracked tooth K03 .[address] [address] 12/29/2023 Naida Valera Encounter for den mercy examination and cleaning with abnormal findings Z01.[address] [address] 01/02/2024 Naida Valera Encounter for den mercy [...] End Date DENTAL [employer] [address] [address] [place] [address] [id number] ROXANNE ROGERS Self - patient is the insured 4 Secondary [employer] [address] [address] [place] [address] [id number] ROXANNE ROGERS Self - patient is the insured 3 [employer] [facility] [employer] [address] [place] [address] [id number] ROXANNE ROGERS Self - patient is the insured 3
--- OUTSIDE RECORDS SUMMARY | 2024-09-21 10:36 | XMS_ITS | Encounter Summary ---
Author Organization [facility] Address [address] [place] [address] Care Team Providers Care Residential Specialist Name Role Phone Parag Bradley MD Primary Care Provider [phone] Анна Ha NP Unavailable [phone] Encounter Details Date Type Department Care Team (Late st Contact Info) Description 06/16/2023 Orders Only [facility] [address] [place] [address] Slava Castro, DO [address] [facility] [place] [address] [place] [address] Social History Tobacco Use Types Packs/Day Years [...] How often do you attend chur or confucianist services? More than 4 times per year 05/19/2023 Do you belong to any clubs o r organizations such as jew groups, unions, fraternal or athletic groups, or [...] Score 0 05/26/2023 [facility] - Occupational Stress Questionnaire Answer [...] in a penitentiary (including now)? No 05/19/2023 Comments Unknown Sex [...] 1:20 PM EDT Visit [facility] [address] [facility] [place] [address] Vidya Sepulveda PA [address] [facility] [address] [place], [place] [address] 12/15/2024 3:00 PM EDT Office Visit [facility] [address] [facility] [place] [address] Slava Castro DO [address] [facility] [address] [place], [place] [address] documented as of this encounter Procedures Procedure Name Priority Date/Time Associated Diagnosis Comments US OB TRANSVAGINAL Routine 06/13/2023 8:31 AM EDT documented in this encounter Results * US OB transvaginal (06/13/2023 8:31 AM EDT) Anatomical Region Laterality Modality Body Ultrasound us Slava [place] OB US PROCEDURES Final Resul t documented in this encounter Visit Diagnoses Not on filedocumented in this encounter Care Teams Residential Specialist Relationship Specialty Start Date End Date Parag Bradley MD [address] [place] [address] PCP - General Family Medicine 08/14/22 Анна Ha NP [address] [place] [address] PCP - [facility] 08/25/23 documented as of this encounter
--- OUTSIDE RECORDS SUMMARY | 2024-09-21 10:36 | XMS_ITS | Encounter Summary ---
Author Organization [facility] Address [address] [place] [address] Care Team Providers Care Homicide Squad Sergeant Name Role Phone Parag Bradley MD Primary Care Provider [phone] Анна Ha NP Unavailable [phone] Encounter Details Date Type Department Care Team (Late st Contact Info) Description 06/26/2023 Orders Only [facility] [address] [facility] [place] [address] Slava Castro, DO [address] [facility] [address] [place], [place] [address] Social History Tobacco Use Types Packs/Day Years [...] How often do you attend chur or cheondoism services? More than 4 times [...] Recorded Patient Health Questionnaire-2 Score 0 05/26/2023 [facility] - Occupational Stress Questionnaire Answer Date [...] 1:20 PM EDT Visit [facility] [address] [facility] [place] [address] Vidya Sepulveda PA [address] [facility] [address] [place], [place] [address] 12/15/2024 3:00 PM EDT Office Visit [facility] [address] [facility] [place] [address] Slava Castro DO [address] [facility] [address] [place], [place] [address] documented as of this encounter Procedures Procedure Name Priority Date/Time Associated Diagnosis Comments US OB TRANSVAGINAL Routine 06/26/2023 10:39 AM EDT documented in this encounter Results * US OB transvaginal (06/26/2023 10:39 AM EDT) Anatomical Region Laterality Modality Body Ultrasound us Slava [place] OB US PROCEDURES Final Resul t documented in this encounter Visit Diagnoses Not on filedocumented in this encounter Care Teams Homicide Squad Sergeant Relationship Specialty Start Date End Date Parag Bradley MD [address] [place] [address] PCP - General Family Medicine 08/14/22 Анна Ha NP [address] [place] [address] PCP - [facility] 08/25/23 documented as of this encounter
--- OUTSIDE RECORDS SUMMARY | 2024-09-21 10:36 | XMS_ITS | Encounter Summary ---
Author Organization [facility] Address [address] [place] [address] Care Team Providers Care Mri Supervisor Name Role Phone Parag Bradley MD Primary Care Provider [phone] Анна Ha NP Unavailable [phone] Encounter Details Date Type Department Care Team (Late st Contact Info) Description 09/08/2024 Telephone [facility] LEVINE[facility] [address] [place] [address] Lorin Mustafa LPN [address] [place] [address] Social History Tobacco Use Types [...] 1:20 PM EDT Visit [facility] [address] [place] [address] Vidya Sepulveda PA [address] [facility] [address] [place], [place] [address] 12/15/2024 3:00 PM EDT Office Visit MIR[facility]DA ONEILL [address] [place] [address] Slava Castro DO [address] [facility] [place] [address] Scheduled Orders Name Type Priority Associated Diagnoses Orde r Schedule US OB follow up transabdominal approach Imaging Routine History of gestational diabetes SGA (small for gestational age) ([facility]) Antepartum multigravida of advanced maternal age ([facility]) Expected: 09/08/2024, Expires: 01/09/2025 documented as of this encounter Goals Goal Patient Goal Type Associated Problems Recent Progress Patient-Stated? Author Reminders Care Plan OB Reminders No Open Scheduling, Background documented as of this encounter Visit Diagnoses Diagnosis History of gestational diabetes Personal history of other genital system and obstetric disorders SGA (small for gestational age) ([facility]) Xeyrq-rek-wvjju without mention of malnutrition, unspecified (weight) Antepartum multigravida of advanced maternal age ([facility]) documented in this encounter Additional Health Concerns Active Problems Noted Date Diagnosed Date OB Reminders 02/11/2024 documented as of this encounter Care Teams Mri Supervisor Relationship Specialty Start Date End Date Parag Bradley MD [address] [place] [address] PCP - General Family Medicine 08/14/22 Анна Ha NP [address] [place] [address] PCP - [facility] 08/25/23 documented as of this encounter
--- OUTSIDE RECORDS SUMMARY | 2024-09-21 10:36 | XMS_ITS | Encounter Summary ---
Author Organization [facility] Address [address] [place] [address] Care Team Providers Care Program Support Assistant Name Role Phone Parag Bradley MD Primary Care Provider [phone] Анна Ha NP Unavailable [phone] Encounter Details Date Type Department Care [...] Score 0 08/06/2024 [facility] - [...] in the past 12 m [facility], were you homeless or living in a [...] Visit [facility] ONE[facility] [address] [place] [address] Vidya Sepulveda PA [address] [place], [place] [address] 12/15/2024 3:00 PM EDT Office Visit MIRANDA ONEILL [address] [place] [address] Slava Castro, DO [address] [facility] [address] [place] [address] documented as of this encounter Goals Goal [...] AM EDT Narrative 09/12/2024 11:52 [place] [address] Ultrasound Report Signed Patient: ROXANNE MARSHALL MR#: [id number] : 1990 Acct:[id number] Age/Sex: 34 / F ADM Date: 09/12/24 Loc: [facility] Dr: Radha Chi Ordering Physician: Radha Chi Date of Service: 09/12/24 Procedure(s): US OB BPP w non-stress Accession Number(s): [id number] cc: Анна Ha NURSING EDUCATOR; Radha Chi The [address] [address] Patient Name: ROXANNE MARSHALL MRN: [id number] date: 1990 Sex: F Assigned Patient Location: [facility] Current Patient Location: Accession/Order Number: [id number] Exam Date: 09/12/2024 11:48 Report Date: 09/12/2024 11:49 At the request of: RADHA CHI Procedure: US OB BPP w non-stress Biophysical profile. Reason for exam: Repeat BPP. COMPARISON: BPP 09/11/2024. TECHNIQUE: Transabdominal imaging of the gravid uterus was obtained. FINDINGS: The brand executive reports a BPP of 8 out of 8. LIVE is normal at 12.7 cm. heart rate 126 bpm. US/US OB BPP w non-stress IMPRESSION: BPP 8 out of 8. Impression dictated by: Avery Ram Jr., D.O. 09/12/2024 11:49 AM Dictation Location: [place] [address] Electronically authenticated by: [id number] Y Date: 09/12/2024 11:49 Dictated By: Avery Ram M.D. Signed By: 09/12/24 1152 DD/ 1149 TD/TT: Mover: Procedure Note Radiology, Radiologist, - 09/12/2024 [place] [address] Ultrasound Report Signed Patient: ROXANNE MARSHALL DMR#: [id number] : 1990Acct:[id number] Age/Sex: 34 / FADM Date: 09/12/24 Loc: [facility] Dr: Radha Chi Ordering Physician: Radha Chi Date of Service: 09/12/24 Procedure(s): US OB BPP w non-stress Accession Number(s): [id number] cc: Анна Ha NURSING EDUCATOR; Radha Chi The [place] [id number] Patient Name: ROXANNE MARSHALL MRN: [id number] date: 1990 Sex: F Assigned Patient Location: [facility] Current Patient Location: Accession/Order Number: [id number] Exam Date: 09/12/2024 11:48 Report Date: 09/12/2024 11:49 At the request of: RADHA CHI Procedure: US OB BPP w non-stress Biophysical profile. Reason for exam: Repeat BPP. COMPARISON: BPP 09/11/2024. TECHNIQUE: Transabdominal imaging of the gravid uterus was obtained. FINDINGS: The brand executive reports a BPP of 8 out of 8. LIVE is normal at12.7 cm. heart rate 126 bpm. US/US OB BPP w non-stress IMPRESSION: BPP 8 out of 8. Impression dictated by: Avery Ram Jr., D.O. 09/12/2024 11:49 AM Dictation Location: [facility] Electronically authenticated by: [id number] Y Date: 1:49 Dictated By: Avery Ram M.D. Signed By:09/12/24 1152 DD/ 1149 TD/TT: Mover: us Generic External Data Provider [facility] Final Result documented in this encounter Visit Diagnoses Not on filedocumented in this encounter Additional Health Concerns Active Problems Noted Date Diagnosed Date OB Reminders 02/11/2024 documented as of this encounter Care Teams Program Support Assistant Relationship Specialty Start Date End Date Parag Bradley MD [address] [place] [address] PCP - General Family Medicine 08/14/22 Анна Ha NP [address] [place] [address] PCP - [facility] 08/25/23 documented as of this encounter
--- OUTSIDE RECORDS SUMMARY | 2024-09-21 10:36 | XMS_ITS | Encounter Summary ---
Author Organization [facility] Address [address] [place] [address] Care Team Providers Care Oracle Ascp Consultant Name Role Phone Parag Bradley MD Primary Care Provider [phone] Анна Ha NP Unavailable [phone] Encounter Details Date Type Department Care [...] Recorded Patient Health Questionnaire-2 Score 0 08/06/2024 [facility] - [...] time in the past 12 m [facility], were you homeless or living in [...] Visit [facility] ONE[facility] [address] [place] [address] Vidya Jackson PA [address] [place], [place] [address] 12/15/2024 3:00 PM EDT Office Visit MIRANDA ONEILL [address] [place] [address] Slava Castro, DO [address] [facility] [place] [address] documented as of this encounter Goals Goal [...] EDT Narrative 09/09/2024 8:14 AM EDT The [address] [address] Ultrasound Report Signed Patient: ROXANNE MARSHALL MR#: [id number] : 1990 Acct:[id number] Age/Sex: 34 / F ADM Date: 09/08/24 Loc: US Attending Dr: Vidya Jackson Ordering Physician: Vidya Jackson Date of Service: 09/08/24 Procedure(s): US OB growth Accession Number(s): [id number] cc: Анна Ha NP; Vidya Jackson The [address] [address] Patient Name: ROXANNE MARSHALL MRN: [id number] date: 1990 Sex: F Assigned Patient Location: [facility] Current Patient Location: Accession/Order Number: [id number] Exam Date: 09/09/2024 08:04 Report Date: 09/09/2024 [...] Auguste M.D. 09/09/2024 8:12 AM Dictation Location: [place] [address] Electronically authenticated by: [id number] Y Date: 09/09/2024 08:12 Dictated By: Isatu Auguste M.D. Signed By: 09/09/24 0814 DD/ 1 TD/TT: Blanket Folder: Procedure Note Radiology, Radiologist, - 09/09/2024 [place] [address] Ultrasound Report Signed Patient: ROXANNE MARSHALL DMR#: [id number] : 1990Acct:[id number] Age/Sex: 34 / FADM Date: 09/08/24 Loc: US Attending Dr: Vidya Jackson Ordering Physician: Vidya Jackson Date of Service: 09/08/24 Procedure(s): US OB growth Accession Number(s): [id number] cc: Анна Ha NP; Vidya Jackson [place] [id number] Patient Name: ROXANNE MARSHALL MRN: [facility]:[id number] date: 1990 Sex: F Assigned Patient Location: [facility] Current Patient Location: Accession/Order Number: [id number] Exam Date: 09/09/2024 08:04 Report Date: 09/09/2024 [...] Auguste M.D. 09/09/2024 8:12 AM Dictation Location: [place] [address] Electronically authenticated by: [id number] Y Date: 508:12 Dictated By: Isatu Auguste M.D. Signed By:09/09/24813 DD/ 1 TD/TT: Blanket Folder: us Generic External Data Provider [facility] Final Result documented in this encounter Visit Diagnoses Not on filedocumented in this encounter Additional Health Concerns Active Problems Noted Date Diagnosed Date OB Reminders 02/11/2024 documented as of this encounter Care Teams Oracle Ascp Consultant Relationship Specialty Start Date End Date Parag Bradley MD [address] [place] [address] PCP - General Family Medicine 08/14/22 Анна Ha NP [address] [place] [address] PCP - [facility] 08/25/23 documented as of this encounter
--- OUTSIDE RECORDS SUMMARY | 2024-09-21 10:36 | XMS_ITS ---
Author Organization [facility] Address [address] [place] [address] Care Team Providers Care Warp Coiler Name Role Phone Parag Bradley MD Primary Care Provider [phone] Анна Ha NP Unavailable [phone] [employer] [facility]aternal [employer] ([facility]) Status:Enrolled (Active) Start date:03/09/2024 Enrollment date:03/09/2024 Enrollment reason:Identified by Health Plan Case Team Name Relationship Phone Vidya Oliva LPN(Responsible Staff) Licensed [facility] Nurse [phone] Continued Care and Services Coordination
--- OUTSIDE RECORDS SUMMARY | 2024-09-21 10:37 | XMS_ITS | Encounter Summary ---
Author Organization [facility] Address [address] [place] [address] Care Team Providers Care Centrifugal Casting Machine Operator Name Role Phone Parag Bradley MD Primary Care Provider [phone] Анна Ha NP Unavailable [phone] Encounter Details Date Type Department Care Team (Late st Contact Info) Description 03/04/2024 Abstract [facility] [place] [facility] [address] [facility] [place] [place] [address] Slava Castro DO [address] [facility] [address] [place], [place] [address] Social History Tobacco Use Types Packs/Day Years [...] week 05/19/2023 How often do you attend [facility]? More than 4 times [...] Recorded Patient Health Questionnaire-2 Score 1 09/01/2023 [facility] - Occupational Stress Questionnaire Answer [...] [address] [facility] [place] [address] Vidya Sepulveda PA [address] [facility] [address] [place], [place] [address] 12/15/2024 3:00 PM EDT Office Visit MIRANDA ONEILL [address] [place] [address] Slava Castro DO [address] [facility] [address] [place], [place] [address] documented as of this encounter Goals Goal Patient Goal Type Associated Problems Recent Progress Patient-Stated? Author Reminders Care Plan OB Reminders No Open Scheduling, Background documented as of this encounter Visit Diagnoses Not on filedocumented in this encounter Additional Health Concerns Active Problems Noted Date Diagnosed Date OB Reminders 02/11/2024 documented as of this encounter Care Teams Centrifugal Casting Machine Operator Relationship Specialty Start Date End Date Parag Bradley MD [address] [place] [address] PCP - General Family Medicine 08/14/22 Анна Ha NP [address] [place] [address] [facility] 08/25/23 documented as of this encounter
--- OUTSIDE RECORDS SUMMARY | 2024-09-21 10:37 | XMS_ITS | Clinical Summary ---
Author Organization [facility] Address [address] [place] [address] Care Team Providers Care Earth Science Teacher Name Role Phone Unavailable Primary Care Provider [...]
--- OUTSIDE RECORDS SUMMARY | 2024-09-21 10:37 | XMS_ITS | Encounter Summary ---
Author Organization [facility] Address [address] [place] [address] Care Team Providers Care Electronics Computer Mechanic Name Role Phone Parag Bradley MD Primary Care Provider [phone] Анна Ha FLIGHT OPERATIONS DISPATCH CLERK Unavailable [phone] Encounter Details Date Type Department Care Team (Late Contact Info) Description 03/04/2023 [facility] [address] [place] [address] Анна Ha, FLIGHT OPERATIONS DISPATCH CLERK [address] [place] [address] Social History Tobacco Use Types Packs/Day Years [...] Department Care Team (Late Contact Info) Description 10/26/2024 1:20 PM EDT Visit [facility] [address] [facility] [address] Vidya Sepulveda PA [address] [place] [address] 12/15/2024 3:00 PM EDT Office Visit [facility] [address] [facility] [address] Slava Castro DO [address] [facility] [address] [place], [place] [address] documented as of this encounter Visit Diagnoses Not on filedocumented in this encounter Care Teams Electronics Computer Mechanic Relationship Specialty Start Date End Date Parag Bradley MD [address] [place] [address] PCP - General Family Medicine 08/14/22 Анна Ha NP [address] [place] [address] PCP - [facility] 08/25/23 documented as of this encounter
--- OUTSIDE RECORDS SUMMARY | 2024-09-21 10:37 | XMS_ITS | Encounter Summary ---
Author Organization [facility] Address [address] [place] [address] Care Team Providers Care Marketing Director Name Role Phone Parag Bradley MD Primary Care Provider Анна Ha NP Unavailable [phone] Encounter Details Date Type Department Care Team (Late st Contact Info) Description 03/01/2024 Abstract [facility] [place] [facility] [address] [place] [address] Slava Castro DO [address] [facility] [address] [place], [place] [address] Social History Tobacco Use Types Packs/Day Years [...] 05/19/2023 How often do you attend [facility] or sabianism services? More than 4 times [...] Recorded Patient Health Questionnaire-2 Score 1 09/01/2023 [facility] - [facility]ational Stress Questionnaire [...] 1:20 PM EDT Visit [facility] [address] [facility] [place] [address] Vidya Sepulveda PA [address] [facility] [address] [place], [place] [address] 12/15/2024 3:00 PM EDT Office Visit [facility] [address] [facility] [place] [address] Slava Castro DO [address] [facility] [address] [place], [place] [address] documented as of this encounter Goals Goal Patient Goal Type Associated Problems Recent Progress Patient-Stated? Author Reminders Care Plan OB Reminders No Open Scheduling, Background documented as of this encounter Visit Diagnoses Not on filedocumented in this encounter Additional Health Concerns Active Problems Noted Date Diagnosed Date OB Reminders 02/11/2024 documented as of this encounter Care Teams Marketing Director Relationship Specialty Start Date End Date Parag Bradley MD [address] [place] [address] PCP - General Family Medicine 08/14/22 Анна Ha NP [address] [place] [address] [facility] 08/25/23 documented as of this encounter
--- OUTSIDE RECORDS SUMMARY | 2024-09-21 10:37 | XMS_ITS ---
Author Organization [facility] Address [address] [place] [address] Care Team Providers Care Lump Receiver Name Role Phone Parag Bradley MD Primary Care Provider [phone] Анна Ha NP Unavailable Inpatient Discharge Transitional Care Management (TCM) Status:Closed (Closed) Start date:09/15/2024 Enrollment date:09/16/2024 Enrollment reason:Identified using hospital discharge data End date:09/16/2024 Close reason:Not eligible Overview Patient discharged from [facility] on 09/15. Please contact for hospital LUL and schedulefollow-up appointment within 7-14 days. Continued Care and Services Coordination
--- OUTSIDE RECORDS SUMMARY | 2024-09-21 10:37 | XMS_ITS | Encounter Summary ---
Author Organization [facility] Address [address] [place] [address] Care Team Providers Care Lacquer Mixer Name Role Phone Parag Bradley MD Primary Care Provider [phone] Анна Ha NP Unavailable [phone] Encounter Details Date Type Department Care Team (Late st Contact Info) Description 09/20/2024 Abstract [facility] [place] [facility] [address] [place] [address] Slava Castro DO [address] [facility] [address] [place], [place] [address] Social History Tobacco Use Types Packs/Day Years [...] How often do you attend chur or yarsani services? More than 4 times [...] Recorded Patient Health Questionnaire-2 Score 0 09/16/2024 [facility] - [...] any time in the past 12 [facility], were you homeless or living in [...] PM EDT Visit [facility] [address] [place] [address] Vidya Sepulveda PA [address] [place] [address] 12/15/2024 3:00 PM EDT Office Visit [facility] [address] [place] [address] Slava Castro DO [address] [facility] [place] [address] documented as of this encounter Goals Goal Patient Goal Type Associated Problems Recent Progress Patient-Stated? Author Reminders Care Plan OB Reminders No Open Scheduling, Background documented as of this encounter Visit Diagnoses Not on filedocumented in this encounter Additional Health Concerns Active Problems Noted Date Diagnosed Date OB Reminders 02/11/2024 documented as of this encounter Care Teams Lacquer Mixer Relationship Specialty Start Date End Date Parag Bradley MD [address] [place] [address] PCP - General Family Medicine 08/14/22 Анна Ha NP [address] [place] [address] PCP - [facility] 08/25/23 documented as of this encounter
--- OUTSIDE RECORDS SUMMARY | 2024-09-21 10:37 | XMS_ITS | Encounter Summary ---
Author Organization [facility] Address [address] [place] [address] Care Team Providers Care Dust Mop Maker Name Role Phone Parag Bradley MD Primary Care Provider [phone] Анна Ha NP Unavailable [phone] Encounter Details Date Type Department Care Team (Late st Contact Info) Description 02/11/2024 Abstract [facility] [place] [facility] [address] [facility] [place] [address] Slava Castro DO [address] [facility] [address] [place], [place] [id number] Social History Tobacco Use Types Packs/Day Years [...] week 05/19/2023 How often do you attend [facility] or sabianist services? More than 4 times [...] Recorded Patient Health Questionnaire-2 Score 1 09/01/2023 [facility] - Occupational Stress Questionnaire Answer [...] 1:20 PM EDT Visit [facility] [address] [facility] [place] [address] Vidya Sepulveda PA [address] [facility] [address] [place], [place] [address] 12/15/2024 3:00 PM EDT Office Visit [facility] [address] [facility] [place] [address] Slava Castro DO [address] [facility] [address] [place], [place] [address] documented as of this encounter Goals Goal Patient Goal Type Associated Problems Recent Progress Patient-Stated? Author Reminders Care Plan OB Reminders No Open Scheduling, Background documented as of this encounter Visit Diagnoses Not on filedocumented in this encounter Additional Health Concerns Active Problems Noted Date Diagnosed Date OB Reminders 02/11/2024 documented as of this encounter Care Teams Dust Mop Maker Relationship Specialty Start Date End Date Parag Bradley MD [address] [place] [address] PCP - General Family Medicine 08/14/22 Анна Ha NP [address] [place] [address] [facility] 08/25/23 documented as of this encounter
--- OUTSIDE RECORDS SUMMARY | 2024-09-21 10:37 | XMS_ITS | Encounter Summary ---
Author Organization [facility] Address [address] [place] [address] Care Team Providers Care Blunger Loader Name Role Phone Parag Bradley MD Primary Care Provider Анна Ha NP Unavailable [phone] Encounter Details Date Type Department Care Team (Late st Contact Info) Description 09/15/2024 Clinisync Result Encounter [facility] External Department Unsolicited Slava Castro, DO [address] [facility] [place] [address] Social History Tobacco Use Types Packs/Day Years [...] often do you attend chur ch or denominational services? More than 4 times [...] Recorded Patient Health Questionnaire-2 Score 0 09/16/2024 [facility] - Occupational [...] any time in the past 12 m [facility], were you homeless or living [...] PM EDT Visit [facility] [address] [facility] [place] [address] Vidya Sepulveda PA [address] [facility] [address] [place], [place] [address] 12/15/2024 3:00 PM EDT Office Visit [facility] [address] [facility] [place] [address] Slava Castro DO [address] [facility] [place] [address] documented as of this encounter Goals Goal Patient Goal Type Associated Problems Recent Progress Patient-Stated? Author Reminders Care Plan OB Reminders No Open Scheduling, Background documented as of this encounter Procedures Procedure Name Priority Date/Time Associated Diagnosis Comments ALL CBC WITH AUTO DIFF Routine 09/15/2024 6:23 AM EDT documented in this encounter Results * (ABNORMAL) ALL CBC WITH AUTO DIFF (09/15/2024 6:23 AM EDT) [facility] WBC 13.1(H) 4.0 - 11.0 10 3/uL [facility] TBH RBC 4.02(L) 4.20 - 5.40 10 6/uL [facility] TB[facility] HGB 12.3 12.0 - 16.0 g/dL TBH TBH HCT 37.1 36.0 - 48.0 % [facility] MCV 92.3 81.0 - 99.0 fL TBH TBH MCH 30.6 26.7 - 34.0 pg TBH TBH MCHC 33.2 29.9 - 35.2 g/dL TBH TBH RDW 14.3 11.0 - 15.0 % TBH TBH PLT 194 150 - 450 10 3/uL TBH TBH MPV 11.0 9.5 - 13.5 fL TBH NEUTROPHILS PERCENT AUTO 71.7 43.0 - 75.0 % [facility] LYMPHOCYTES PERCENT AUTO 19.3(L) 20.5 - 60.0 % [facility] MONOCYTES PERCENT AUTO 8.2 1.7 - 12.0 % [facility] TBH EO % 0.2(L) 0.9 - 7.0 % [facility] BASOPHILS PERCENT AUTO 0.2 0.2 - 2.0 % [facility] IMMATURE GRANULOCYTES PCT AUTO 0.4 0.0 - 0.5 % [facility] NEUTROPHILS ABSOLUTE AUTO 9.4(H) 1.4 - 6.5 10 3/uL [facility] LYMPHOCYTES ABSOLUTE AUTO 2.5 1.2 - 3.8 10 3/uL [facility] MONOCYTES ABSOLUTE AUTO 1.1(H) 0.3 - 0.8 10 3/uL [facility] TBH EO # 0.0 0.0 - 0.7 10 3/uL [facility] BASOPHILS ABSOLUTE AUTO 0.0 0.0 - 0.1 10 3/uL [facility] IMMATURE GRANULOCYTES ABS AUTO 0.05(H) 0.00 - 0.03 10 3/uL [facility] 09/15/2024 6:23 AM EDT 09/15/2024 6:32 AM EDT Narrative [facility] - 09/15/2024 6:43 AM EDT us Slava Gloria DO [facility] Final Result [facility] TB documented in this encounter Visit Diagnoses Not on filedocumented in this encounter Additional Health Concerns Active Problems Noted Date Diagnosed Date OB Reminders 02/11/2024 documented as of this encounter Care Teams Blunger Loader Relationship Specialty Start Date End Date Parag Bradley MD [address] [place] [address] PCP - General Family Medicine 08/14/22 Анна Ha NP [address] [place] [address] PCP - [facility] 08/25/23 documented as of this encounter
--- OUTSIDE RECORDS SUMMARY | 2024-09-21 10:37 | XMS_ITS | Encounter Summary ---
Author Organization [facility] Address [address] [place] [address] Care Team Providers Care Software Security Consultant Name Role Phone Parag Bradley MD Primary Care Provider [phone] Анна Ha MOCK UP BUILDER Unavailable [phone] Reason for Visit * Reason Onset Date Comments Med Refill 08/22/2024 Encounter Details Date Type Department Care Team (Late st Contact Info) Description 08/22/2024 Refill [facility] [address] [place] [address] Анна Ha, MOCK UP BUILDER [address] [place] [address] Primary insomnia Social History Tobacco [...] 0 08/06/2024 [facility] - Occupational Stress Questionnaire Answer Date [...] 1:20 PM EDT Visit [facility] [address] [facility] [place] [address] Vidya Sepulveda PA [address] [facility] [place] [address] 12/15/2024 3:00 PM EDT Office Visit [facility]DA ONE[facility] [address] [facility] [place] [address] Slava Castro DO [address] [facility] [place] [address] documented [...] documented as of this encounter Care Teams Software Security Consultant Relationship Specialty Start Date End Date Parag Bradley MD [address] [place] [address] PCP - General Family Medicine 08/14/22 Анна Ha NP [address] [place] [address] PCP - [facility] 08/25/23 documented as of this encounter
--- OUTSIDE RECORDS SUMMARY | 2024-09-21 10:37 | XMS_ITS | Encounter Summary ---
Author Organization [facility] Address [address] [place] [address] Care Team Providers Care Financial Reserve Clerk Name Role Phone Parag Bradley MD Primary Care Provider [phone] Анна Ha NP Unavailable [phone] Encounter Details Date Type Department Care [...] Health Questionnaire-2 Score 1 09/01/2023 [facility] - Occupational Stress Questionnaire Answer Date [...] 1:20 PM EDT Visit [facility] [address] [facility] [place] [address] Vidya Sepulveda PA [address] [facility] [address] [place], [place] [address] 12/15/2024 3:00 PM EDT Office Visit [facility] ONE[facility] [address] [place] [address] Orlin Castro DO [address] [facility] [address] [place], [place] [address] documented as of this encounter Goals Goal Patient Goal Type Associated Problems Recent Progress Patient-Stated? Author Reminders Care Plan OB Reminders No Open Scheduling, Background documented as of this encounter Procedures Procedure Name Priority Date/Time Associated Diagnosis Comments OB TRANSVAGINAL 02/12/2024 4: 29 AM EST documented in this encounter Results * US OB TRANSVAGINAL (02/12/2024 4:29 AM EST) Anatomical Region Laterality Modality Other 02/12/2024 4:29 AM EST Narrative 02/12/2024 4:31 AM EST The [address] [address] Ultrasound Report Signed Patient: ROXANNE MARSHALL MR#: [id number] : 1990 Acct:[id number] Age/Sex: 33 / F ADM Date: 02/11/24 Loc: [facility] Attending Dr: Orlin Castro D.O. Ordering Physician: Orlin Castro D.O. Date of Service: 02/11/24 Procedure(s): US OB transvaginal Accession Number(s): [id number] cc: Анна Ha NUCLEAR UNIT OPERATOR; Orlin Castro D.O. The [place] [id number] Patient Name: ROXANNE MARSHALL MRN: [id number] date: 1990 Sex: F [facility]igned [facility] Current Patient Location: Accession/Order Number: [id number] Exam Date: 02/11/2024 09:39 Report Date: 02/12/2024 [...] Signed By: 02/12/24 0431 DD/ 0429 TD/TT: Decision Unit Rn: Procedure Note Radiology, Radiologist, MD - 02/12/[address] [address] Ultrasound Report Signed Patient: ROXANNE MARSHALL DMR#: [id number] : 1990Acct:[id number] Age/Sex: 33 / FADM Date: 02/11/24 Loc: [facility] Attending Dr: Orlin Castro D.O. Ordering Physician: Orlin Castro D.O. Date of Service: 02/11/24 Procedure(s): US OB transvaginal Accession Number(s): [id number] cc: Анна Ha NUCLEAR UNIT OPERATOR; Orlin Castro D.O. [place] [id number] Patient Name: ROXANNE MARSHALL MRN: [id number] date: 1990 Sex: F Assigned Patient [facility]: [facility] Current Patient Location: Accession/Order Number: [id number] Exam Date: 02/11/2024 09:39 Report Date: 02/12/2024 [...] M.D. Signed By:02/12/24 0431 DD/ 0429 TD/TT: Decision Unit Rn: us Generic External Data Provider [facility] Final Result documented in this encounter Visit Diagnoses Not on filedocumented in this encounter Additional Health Concerns Active Problems Noted Date Diagnosed Date OB Reminders 02/11/2024 documented as of this encounter Care Teams Financial Reserve Clerk Relationship Specialty Start Date End Date Parag Bradley MD [address] [place] [address] PCP - General Family Medicine 08/14/22 Анна Ha NP [address] [place] [address] PCP - [facility] 08/25/23 documented as of this encounter
--- OUTSIDE RECORDS SUMMARY | 2024-09-21 10:37 | XMS_ITS | Clinical Summary ---
Author Organization [facility] Healthcare Address [address] [place] [address] Care Team Providers Care Car Customizer Name Role Phone Parag Bradley MD Primary Care Provider [phone] Анна Ha NP Unavailable [phone] Allergies Active Allergy Reactions Criticality Noted Date Comments Other 11/25/2022 Powder on gloves Other Reaction(s): rash/itching Medications MV-Min-Fe Fum-FA-DHA ( 1 PO) Take 1 each by mouth Daily Active aspirin 81 MG EC tablet Take 81 mg by mouth Daily Active omeprazole (PriLOSEC) [address] capsuleIndicat ions:Heartburn during in second trimester ([facility]) Take 1 capsule (20 mg) by [...] Date Resolved Date Major depressive disorder, s hcay episode, mild 09/01/2023 09/01/2023 Encounters Date Type Department Care Team Description 09/20/2024 Abstract [facility] [address] [place] [address] Slava Castro, DO 09/16/2024 Patient Outreach [facility] [place] [address] [place] [address] Vidya Oliva LPN 09/15/2024 Clinisync Result Encounter NOMS External Department Unsolicited Slava Castro, DO 09/14/2024 10:00 [place] [address] Slava Castro, DO 38 weeks gestation of ([facility]); Third trimester ([facility]); Antepartum multigravida of advanced maternal age ([facility]); SGA (small for gestational age) ([facility]); History of gestational diabetes 09/14/20[place] [address] Slava Castro, DO 09/14/2024 Clinisync Result Encounter NOMS External Department Unsolicited Slava Castro, DO 09/14/2024 [place] [address] Slava Castro, DO 09/12/2024 Clinisync Result Encounter NOMS External Department Unsolicited Provider, Generic External Data 09/11/2024 Clinisync Result Encounter NOMS External Department Unsolicited Provider, Generic External Data 09/10/2024 Travel 09/09/2024 11:50 [place] [address] Slava Castro, DO 37 weeks gestation of ([facility]); Third trimester ([facility]); Antepartum multigravida of advanced maternal age ([facility]); SGA (small for gestational age) ([facility]); History of gestational diabetes 09/09/2024 Clinisync Result Encounter NOMS External Department Unsolicited Provider, Generic External Data 09/09/2024 Clinisync Result Encounter NOMS External Department Unsolicited Provider, Generic External Data 09/08/2024 Telephone [facility] [address] [place] [address] Lorin Mustafa LPN 09/07/2024 1:00 PM EDT Office Visit [facility] [address] [place] [address] Анна Ha NP Encounter for wellness examination in adult (Primary Dx); Primary insomnia 09/07/2024 Bamboo flowsheet [facility] [address] [place] [address] Анна Ha NP 09/05/2024 Travel 09/02/2024 10:40 AM EDT Routine [facility] [facility] [address] [place] [address] Slava Castro DO 36 weeks gestation of ([facility]); Third trimester ([facility]); History of gestational diabetes; Antepartum multigravida of advanced maternal age ([facility]) 09/02/2024 Clinisync Result Encounter NOMS External Department Unsolicited Provider, Generic External Data 09/02/2024 Bamboo flowsheet [facility] [facility] [address] [place] [address] Slava Castro DO 09/01/2024 Clinisync Result Encounter NOMS External Department Unsolicited Vidya Jackson PA 09/01/2024 Patient Outreach [facility] [address] [place] [address] Vidya Oliva LPN 08/31/2024 Travel 08/27/2024 Travel 08/25/2024 Clinisync Result Encounter NOMS External Department Unsolicited Provider, Generic External Data 08/23/2024 Refill [facility] [address] [place] [address] Анна Ha NP Primary insomnia 08/22/2024 Refill [facility] [address] [place] [address] Анна Ha NP Primary insomnia 08/18/2024 9:30 [place] [address] Ximena Carver NP Third trimester ([facility]); 34 weeks gestation of ([facility]) 08/18/2024 Clinisync Result Encounter NOMS External Department Unsolicited Provider, Generic External Data 08/18/2024 Bamboo flowsheet [facility] [facility] [place] [address] Ximena Carver NP 08/17/2024 Travel 08/13/2024 Clinisync Result Encounter NOMS External Department Unsolicited Provider, Generic External Data 08/11/2024 Clinisync Result Encounter NOMS External Department Unsolicited Vidya Jackson PA 08/06/2024 Patient Outreach [facility] [address] [place] [address] Vidya Oliva LPN 08/04/2024 2:20 PM EDT Routine [facility] [place] [facility] [place] [place] [address] Slava Castro DO 32 weeks gestation of ([facility]); Third trimester ([facility]) 08/04/2024 Abstract [facility] [address] [place] [address] Анна Ha NP 08/04/2024 Clinisync Result Encounter NOMS External Department Unsolicited Provider, Generic External Data 08/03/2024 Travel 07/28/2024 Clinisync Result Encounter NOMS External Department Unsolicited Provider, Generic External Data 07/26/2024 Abstract [facility] [place] [facility] [address] [facility] [place] [address] Slava Castro DO 07/23/2024 Clinisync Result Encounter NOMS External Department Unsolicited Provider, Generic External Data 07/21/2024 2:20 [place] [address] Vidya Jackson PA Third trimester ([facility]); 30 weeks gestation of ([facility]); History of gestational diabetes 07/21/2024 [place] [address] Lizzy Wood MA 07/17/2024 Clinisync Result Encounter NOMS External Department Unsolicited Provider, Generic External Data 07/14/2024 Travel 07/08/2024 [place] [address] Leesa Coon MA 07/07/2024 Patient Outreach [facility] [address] [facility] [address] Vidya Oliva LPN 07/06/2024 1:50 [place] [address] Slava Castro DO Third trimester ([facility]); 28 weeks gestation of ([facility]); Elevated glucose tolerance test; Diabetes mellitus screening; SGA (small for gestational age) ([facility]) 07/06/2024 1:30 PM EDT [place] [address] Antepartum multigravida of advanced maternal age ([facility]) 07/05/2024 Clinisync Result Encounter NOMS External Department Unsolicited Provider, Generic External Data from Last 3 Months Immunizations Immunization Administration [...] Recorded Patient Health Questionnaire-2 Score 0 09/16/2024 [facility] Occupat ional [...] Visit [facility] [address] [place] [address] Vidya Jackson PA [address] [place], [place] [address] 12/15/2024 3:00 PM EDT Office Visit [facility] [address] [place] [address] Slava Castro DO [address] [place] [address] Health Maintenance Due Date Last Done Comments Cervical Cancer Screening 12/09/2028 HPV/Cotest 12/09/2028 Pap Smear 12/09/2028 12/10/2023, 11/25/2022 Influenza Vaccine Discontinued 12/08/2017 Goals Goal Patient Goal Type Associated Problems Recent Progress Patient-Stated? Author Reminders Care Plan OB Reminders No Open Scheduling, Background Procedures Procedure Name Priority Date/Time Associated Diagnosis Comments ALL CBC WITH AUTO DIFF Routine 6:23 AM EDT HP CBC WITH PLATELET NO DIFFERENTIAL Routine 09/14/2024 4:45 PM EDT TB DRUG SCREEN RAPID (URINE) Routine 09/14/2024 12:40 PM EDT TBH UA (CLEAN/CATCH) [employer] SPECIALIST/MICRO IF IND. Routine 09/14/2024 12:40 PM EDT POCT URINALYSIS DIPSTICK Routine 09/14/2024 10:04 AM EDT 38 weeks gestation of ([facility]) Third trimester ([facility]) US OB BPP W NON-STRESS 09/12/2024 11:49 AM EDT US OB BPP W NON-STRESS 09/11/2024 2:23 PM EDT POCT URINALYSIS DIPSTICK Routine 09/09/2024 12:09 PM EDT 37 weeks gestation of ([facility]) Third trimester ([facility]) US OB BPP W NON-STRESS 09/09/2024 8:12 AM EDT US OB GROWTH 09/09/2024 8:12 AM EDT POCT URINALYSIS DIPSTICK Routine 09/02/2024 10:53 AM EDT 36 weeks gestation of ([facility]) Third trimester ([facility]) CULTURE, GROUP B STREP WITH SUSCEPTIBLITY Routine 09/02/2024 10:36 AM EDT Third trimester ([facility]) STREP GP B CULTURE+RFLX Routine 09/02/2024 10:35 AM EDT US OB BPP W NON-STRESS 09/01/2024 3:11 PM EDT US OB BPP W NON-STRESS 08/25/2024 11:33 AM EDT US OB BPP W NON-STRESS 08/18/2024 11:48 AM EDT POCT URINALYSIS DIPSTICK Routine 08/18/2024 10:28 AM EDT Third trimester ([facility]) US OB BPP W NON-STRESS 08/13/2024 5:27 PM EDT US OB BPP W NON-STRESS 08/11/2024 12:20 PM EDT POCT URINALYSIS DIPSTICK Routine 08/04/2024 2:36 PM EDT 32 weeks gestation of ([facility]) Third trimester ([facility]) US OB BPP W NON-STRESS 08/04/2024 11:43 AM EDT US OB GROWTH 07/28/2024 10:48 AM EDT GLUCOSE TOLERANCE 3 HOUR Routine 07/23/2024 9:09 AM EDT GLUCOSE 1 HOUR Routine 07/17/2024 9:48 AM EDT POCT URINALYSIS DIPSTICK Routine 07/06/2024 2:18 PM EDT Third trimester ([facility]) US OB FOLLOW UP TRANSABDOMINAL APPROACH Routine 07/06/2024 2:04 PM EDT Antepartum multigravida of advanced maternal age ([facility]) GLUCOSE 1 HOUR Routine 07/05/2024 10:48 AM EDT ALL CBC WITH AUTO DIFF Routine 10:48 AM EDT PAP SMEAR Routine 12/10/2023 12:00 AM EDT from Last 3 Months or Most Recently Relevant to Health Maintenance Results * (ABNORMAL) ALL CBC WITH AUTO DIFF (09/15/2024 6:23 AM EDT) Only the most recent of2 resultswithin the time period is included. TBH WBC 13.1(H) 4.0 - 11.0 10 [...] Gloria DO CLINISYNC Final Result CLINISYNC TB * (ABNORMAL) [facility] CBC WITH PLATELET NO DIFFERENTIAL (09/14/2024 4:45 PM EDT) TB WBC 12.0(H) 4.0 - 11.0 10 3/uL [...] Narrative CLINISYNC - 09/14/2024 5:02 PM EDT us Slava Gloria DO CLINISYNC Final Result CLINISYNC TB * TB UA (CLEAN/CATCH) [employer] SALES SPECIALIST/MICRO IF IND. (09/14/2024 12:40 PM EDT) COLOR [...] EDT Slava Gloria DO CLINISYNC Final Result [facility] * TB DRUG SCREEN RAPID (URINE) (09/14/2024 12:40 PM [...] Narrative CLINISYNC - 09/15/2024 2:10 AM EDT us Slava Gloria DO CLINISYNC Final Result [facility] * (ABNORMAL) POCT urinalysis dipstick manually resulted (09/14/2024 10:04 AM EDT) Only the most recent of6 resultswithin the time period is included. Color, [...] 09/14/2024 10:0 4 AM EDT us Slava Gloria DO POINT OF CARE TEST ENTER/EDIT OR DERABLES Final Result * US OB BPP W NON-STRESS (09/12/2024 11:49 AM EDT) Only the most recent of9 resultswithin the time period is included. Anatomical Region Laterality Modality Other 09/12/2024 11:4 9 AM EDT Narrative 09/12/2024 11:52 AM EDT The [address] [address] Ultrasound Report Signed Patient: ROXANNE MARSHALL MR#: [id number] : 1990 Acct:[id number] Age/Sex: 34 / F ADM Date: 09/12/24 Loc: [facility] Attending Dr: Radha Chi Ordering Physician: Radha Chi Date of Service: 09/12/24 Procedure(s): US OB BPP w non-stress Accession Number(s): [id number] cc: Анна Ha AMORTIZATION SCHEDULE CLERK; Radha Chi The [place] [id number] Patient Name: ROXANNE MARSHALL MRN: [id number] date: 1990 Sex: F Assigned Patient Location: [facility] Current Patient Location: Accession/Order Number: [id number] Exam Date: 09/12/2024 11:48 Report Date: 09/12/2024 11:49 At the request of: RADHA CHI Procedure: US OB BPP w non-stress Biophysical profile. Reason for exam: Repeat BPP. COMPARISON: BPP 09/11/2024. TECHNIQUE: Transabdominal imaging of the gravid uterus was obtained. FINDINGS: The bandage maker reports a BPP of 8 out of 8. LIVE is normal at 12.7 cm. heart rate 126 bpm. US/US OB BPP w non-stress IMPRESSION: BPP 8 out of 8. Impression dictated by: Avery Ram Jr., D.O. 09/12/2024 11:49 AM Dictation Location: [place] [address] Electronically authenticated by: [id number] Y Date: 09/12/2024 11:49 Dictated By: Avery Ram M.D. Signed By: 09/12/24 1152 DD/ 1149 TD/TT: Finishing Machine Tender: Procedure Note Radiology, Radiologist, MD - 09/12/[address] [address] Ultrasound Report Signed Patient: ROXANNE MARSHALL DMR#: [id number] : 1990Acct:[id number] Age/Sex: 34 / FADM Date: 09/12/24 Loc: [facility] Attending Dr: Radha Chi Ordering Physician: Radha Chi Date of Service: 09/12/24 Procedure(s): US OB BPP w non-stress Accession Number(s): [id number] cc: Анна Ha AMORTIZATION SCHEDULE CLERK; Radha Chi [place] [address] Patient Name: ROXANNE MARSHALL MRN: [id number] date: 1990 Sex: F Assigned Patient Location: [facility] Current Patient Location: Accession/Order Number: [id number] Exam Date: 09/12/2024 11:48 Report Date: 09/12/2024 11:49 At the request of: RADHA CHI Procedure: US OB BPP w non-stress Biophysical profile. Reason for exam: Repeat BPP. COMPARISON: BPP 09/11/2024. TECHNIQUE: Transabdominal imaging of the gravid uterus was obtained. FINDINGS: The bandage maker reports a BPP of 8 out of 8. LIVE is normal at12.7 cm. heart rate 126 bpm. US/US OB BPP w non-stress IMPRESSION: BPP 8 out of 8. Impression dictated by: Avery Ram Jr., D.O. 09/12/2024 11:49 AM Dictation Location: [place] [address] Electronically authenticated by: [id number] Y Date: 1:49 Dictated By: Avery Ram M.D. Signed By:09/12/24 1152 DD/ 1149 TD/TT: Finishing Machine Tender: us Generic External Data Provider CLINISYNC IMAGING Final Result * US OB GROWTH (09/09/2024 8:12 AM EDT) Only the most recent of2 resultswithin the time period is included. Anatomical Region Laterality Modality Other 09/09/2024 8:12 AM EDT Narrative 09/09/2024 8:14 AM EDT The [address] [address] Ultrasound Report Signed Patient: ROXANNE MARSHALL MR#: [id number] : 1990 Acct:[id number] Age/Sex: 34 / F ADM Date: 09/08/24 Loc: US Attending Dr: Vidya Jackson Ordering Physician: Vidya Jackson Date of Service: 09/08/24 Procedure(s): US OB growth Accession Number(s): [id number] cc: Анна Ha AMORTIZATION SCHEDULE CLERK; Vidya Jackson The [place] [id number] Patient Name: ROXANNE MARSHALL MRN: [id number] date: 1990 Sex: F Assigned Patient Location: [facility] Current Patient Location: Accession/Order Number: [id number] Exam Date: 09/09/2024 08:04 Report Date: 09/09/2024 [...] Auguste M.D. 09/09/2024 8:12 AM Dictation Location: [place] [address] Electronically authenticated by: [id number] Y Date: 09/09/2024 08:12 Dictated By: Isatu Auguste M.D. Signed By: 09/09/24813 DD/ 1 TD/TT: Finishing Machine Tender: Procedure Note Radiology, Radiologist, MD - 09/09/2024 [place] [address] Ultrasound Report Signed Patient: ROXANNE MARSHALL DMR#: [id number] : 1990Acct:[id number] Age/Sex: 34 / FADM Date: 09/08/24 Loc: US Attending Dr: Vidya Jackson Ordering Physician: Vidya Jackson Date of Service: 09/08/24 Procedure(s): US OB growth Accession Number(s): [id number] cc: Анна Ha NP; Vidya Jackson The [address] [address] Patient Name: ROXANNE MARSHALL MRN: [id number] date: 1990 Sex: F Assigned Patient Location: [facility] Current Patient Location: Accession/Order Number: [id number] Exam Date: 09/09/2024 08:04 Report Date: 09/09/2024 [...] Auguste M.D. 09/09/2024 8:12 AM Dictation Location: [place] [address] Electronically authenticated by: [id number] Y Date: 508:12 Dictated By: Isatu Auguste M.D. Signed By:09/09/24813 DD/ 1 TD/TT: Finishing Machine Tender: us Generic External Data Provider CLINISYNC IMAGING Final Result * CULTURE, GROUP B STREP WITH SUSCEPTIBLITY (09/02/2024 10:36 AM EDT) Swab 09/02/2024 10:3 6 AM EDT Slava Castro DO LAB BLOOD ORDERABLES Final Resul t EXTERNAL LAB * STREP GP B CULTURE+RFLX (09/02/2024 10:35 AM EDT) [facility] STREP GP B CULTURE+RFLX Strep Gp B Culture+Rflx [facility]H STREP GP B CULTURE+RFLX Negative [facility] STREP GP B CULTURE+RFLX Centers for Disease Control and Prevention (CDC) and [facility] STREP GP B CULTURE+RFLX [employer] TBH STREP [...] TBH STREP GP B CULTURE+RFLX [facility]formed [facility]: [facility] STREP GP B CULTURE+RFLX [address] [place], [place] [id number] TBH STREP GP B CULTURE+RFLX Instructional Media Services Technician: Tony Bynum PhD, Phone: [phone] [facility] 09/02/2024 10:3 5 AM EDT 09/02/2024 8:46 PM EDT Narrative CLINISYNC - 09/07/2024 4:09 PM EDT us Generic External Data Provider LAB BLOOD ORDERAB LES Final Result Performing Organization Address [facility]/ZIP Co de Phone Number [facility] * (ABNORMAL) GLUCOSE TOLERANCE 3 HOUR (07/23/2024 9:09 AM EDT) GLUCOSE TOLERANCE 3 HOUR (H) mg/dL [facility] Comment: GLU FAST 97H (<95) Col: 07/23/24 0909 GLU 1HR 151 (<180) Col: 07/23/24 1013 GLU 2HR 151 (<155) Col: 07/23/24 1113 GLU 3HR 123 (<140) Col: 07/23/24 1213 07/23/2024 9:09 AM EDT 07/23/2024 9:14 AM EDT Narrative CLINISYNC - 07/23/2024 12:46 PM EDT us Slava Gloria DO LAB BLOOD ORDERABLES Final Resul t Performing Organization Address [facility] Co de Phone Number [facility] * (ABNORMAL) GLUCOSE 1 HOUR (07/17/2024 9:48 AM EDT) Only the most recent of2 resultswithin the time period is included. GLUCOSE 1 HOUR 162(H) <130 mg/dL [facility] 07/17/2024 9:48 AM EDT 07/17/2024 9:49 AM EDT Narrative CLINISYNC - 07/17/2024 10:52 AM EDT us Slava Gloria DO LAB BLOOD ORDERABLES Final Resul t Performing Organization Address [facility] Co de Phone Number [facility] * US OB follow up transabdominal approach [...] II, MD, PHD at 07-Jul-2024 10:00:26 AM [facility] Procedure Note Tabitha Campbell MD - [...] signed by TABITHA CAMPBELL II, MD, PHD [id number] 10:00:26 AM [facility] us Slava Castro DO IMG OB US [...] 02/11/2024 Insurance [employer] Care Teams Car Customizer Relationship Specialty Start Date End Date Parag Bradley MD [address] [place] [address] PCP - General Family Medicine 08/14/22 Анна Ha NP [address] [place] [address] PCP - [facility] 08/25/23
--- OUTSIDE RECORDS SUMMARY | 2024-09-21 10:37 | XMS_ITS | Encounter Summary ---
Author Organization [facility] Address [address] [place] [address] Care Team Providers Care Front Loader Residential Driver Name Role Phone Parag Bradley MD Primary Care Provider [phone] Анна Ha NP Unavailable [phone] Encounter Details Date Type Department Care Team (Late st Contact Info) Description 09/14/2024 Abstract [facility] [place] [facility] [address] [place] [address] Slava Castro DO [address] [place], [place] [phone] Social History Tobacco Use Types Packs/Day Years [...] How often do you attend chur or temple services? More than 4 times [...] Recorded Patient Health Questionnaire-2 Score 0 09/16/2024 [facility] - Occupational [...] any time in the past 12 m [facility], were you homeless or living in [...] PM EDT Visit [facility] [place] [facility] [address] [place] [address] Vidya Sepulveda, PA [address] [place], [place] [phone] 12/15/2024 3:00 PM EDT Office Visit [facility] [place] [facility] [address] [place] [address] Slava Castro DO [address] [place], [place] [phone] documented as of this encounter Goals Goal Patient Goal Type Associated Problems Recent Progress Patient-Stated? Author Reminders Care Plan OB Reminders No Open Scheduling, Background documented as of this encounter Visit Diagnoses Not on filedocumented in this encounter Additional Health Concerns Active Problems Noted Date Diagnosed Date OB Reminders 02/11/2024 documented as of this encounter Care Teams Front Loader Residential Driver Relationship Specialty Start Date End Date Parag Bradley MD [address] [place] [phone] PCP - General Family Medicine 08/14/22 Анна Ha NP [address] [place] [address] PCP - [facility] 08/25/23 documented as of this encounter
--- OUTSIDE RECORDS SUMMARY | 2024-09-21 10:37 | XMS_ITS | Encounter Summary ---
Author Organization [facility] Healthcare Address [address] [place] [address] Care Team Providers Care [employer] Driver Name Role Phone Parag Bradley MD Primary Care Provider [phone] Анна Ha NP Unavailable [phone] Encounter Details Date Type Department Care Team (Late st Contact Info) Description 09/16/2024 Patient Outreach [facility] [address] [place] [id number] Vidya Oliva, PIECE [employer] [address], [place] [id number] Social History Tobacco Use Types Packs/Day Years [...] week 08/31/2024 How often do you attend [facility] or [employer] services? More than 4 times [...] Recorded Patient Health Questionnaire-2 Score 0 09/16/2024 [facility] - Occupational Stress Questionnaire Answer Date [...] time in the past 12 m [facility], were you homeless or living in [...] Oliva LPN documented as of this encounter Progress Notes * Vidya Oliva LPN - 09/16/2024 3:20 PM EDT Images from the original note were not included. Flowsheet Row Patient Outreach from 09/16/2024 in [facility] with Vidya Oliva LPN Hospital Information ED, Hospital or Correction Facility Discharge? Hospital Patient has been contacted within two business days of discharge Yes Diagnosis Discharge Date 09/15/24 Discharged To: Home Setting Discharge Hospital [facility] Engagement Call Start Time 1515 Admission Date 09/14/24 Medications Discharge medications reviewed and reconciled from hospital? Yes Is the patient having any side effects they believe may be caused by any medication additions or changes? No Does the patient have all medications ordered at discharge? Yes Nursing Interventions No intervention needed Is the patient taking all medications as directed (includes completed medication regime)? Yes Nursing Interventions Nurse provided patient education Appointments Does the patient have a primary care provider? Yes Does the patient have any upcoming specialty appointments? Yes [PPV 10/26/24] Nursing Interventions Advised patient to keep appointment Self Management Patient Teaching Does the patient have access to their discharge instructions? Yes Nursing Interventions Reviewed instructions with patient What is the patient's perception of their health status since discharge? Improving Wrap Up Call End Time 1520 LUL Complete. Call to pt. Pt reports pain is controlled with out OTC's. Pt describes light lochia and denies clots. Bowels are constipated and Colace encouraged. Pt denies any depression or difficulty coping at this time. Pt currently and denies questions, Pt reports she has all itemsfor baby's needs to be met. Pt denies any questions, concerns or needs today. Baby's first PED's isscheduled. Pt PPV 10/26/2024. documented in this encounter Plan of Treatment Upcoming Encounters Date Type Department Care Team (Late st Contact Info) Description 10/26/2024 1:20 PM EDT Visit [facility] [address] [place] [address] [place] [phone] Vidya Sepulveda PA [address] [place] [place] [address] 12/15/2024 3:00 PM EDT Office Visit [facility] [address] [place] [phone] Slava Castro DO [address] [place], [place] [id number] documented as of this encounter Goals Goal Patient Goal Type Associated Problems Recent Progress Patient-Stated? Author Reminders Care Plan OB Reminders No Open Scheduling, Background documented as of this encounter Visit Diagnoses Diagnosis (spontaneous vaginal delivery) ([facility] Primary Normal delivery documented in this encounter Additional Health Concerns Active Problems Noted Date Diagnosed Date OB Reminders 02/11/2024 documented as of this encounter Care Teams [employer] Driver Relationship Specialty Start Date End Date Parag Bradley MD [address] [place] [phone] PCP - General Family Medicine 08/14/22 Анна Ha NP [address] [place] [phone] PCP - [facility] 08/25/23 documented as of this encounter
--- NOTE | 2024-09-21 13:59 | PC.NURSE ---
Shreya and 7 day old Yane arrive for follow up visit. Shreya states we are doing so well No concerns for self post delivery or for infant. States feedings are going well, latching well, audible swallows with good sucking. Yane has 8-10 wet diapers and 6-8 yellow stools daily. Mom states wakes to feed 4x and has 4-5 feeds during the day. Encouraged to feed baby more often during the day, to allow to give longer stretches during the night for better sleep for parents.. Shreya with VSS and assessment WNL Nipples intact and breasts softly full, Denies concerns. Baby has VSS and assessment WNL. Weight only 1.6% below weight. No concerns noted for infant as well. Family home ambulatory. Aware of MOMS group and to call for concerns or questions.
[2024-09-21 14:00] VITALS: BP 124/80; PULSE 73; TEMP 36.8; O2SAT 97
== END 2024-09-21 14:05 | disposition home or self-care (01) ==
PROVIDERS: PCP Nurse Practitioner; Visit Provider Obstetrics & Gynecology
DX: Z39.1 Encounter for care and examination of lactating mother (principal)

== ENCOUNTER 2024-11-08 08:13 | Outpatient (OUT) | payer OTHER, SELFPAY ==
--- OUTSIDE RECORDS SUMMARY | 2024-11-08 08:24 | XMS_ITS | CCD ---
Author Organization [facility] CliniSyfl Care Team Providers Care Account Development Associate Name Role Phone AICHHOLZ, BOTTLE CAPPER АННА Primary Care Unavailable PAY, DR LIN Admitting Unavailable PAY, DR LIN Attending Unavailable GISELLE RESTREPO Consulting Unavailable GLORIA, DR ORDAZ Admitting Unavailable GLORIA, DR ORDAZ Attending Unavailable AICHHOLZ, BOTTLE CAPPER АННА Primary Care Unavailable GLORIA, DR ORDAZ Consulting Unavailable AICHHOLZ, BOTTLE CAPPER АННА Admitting Unavailable AICHHOLZ, BOTTLE CAPPER АННА Attending Unavailable AICHHOLZ, BOTTLE CAPPER АННА Primary Care Unavailable AICHHOLZ, BOTTLE CAPPER АННА Consulting Unavailable AICHHOLZ, BOTTLE CAPPER АННА Primary Care Unavailable DON, DR BIRD Admitting Unavailable DON, DR BIRD Attending Unavailable GISELLE RESTREPO Consulting Unavailable PHOEBE ALFARO Consulting Unavailable MD Dar Brody Primary Care Provider Slava Castro Attending Provider Parag Bradley MD Primary Care Provider Aichholange STRIPPING MACHINE OPERATOR, Анна Unavailable Slava Castro DO Attending Provider Mik Castroy Attending Unavailable Gloria, Slava Admitting Unavailable Dar Brody Primary Care Unavailable GloriaSlava Attending Unavailable Gloria, Slava Admitting Unavailable Parag Bradley MD Primary Care Provider Aichholange STRIPPING MACHINE OPERATOR, Анна Unavailable VIDYA JACKSON Attending Unavailable VIDYA JACKSON Referring Unavailable GLORIA, SLAVA Attending Unavailable CELY CARVER Attending Unavailable GLORIA, SLAVA Referring Unavailable GLORIA, SLAVA Attending Unavailable VIDYA JACKSON Attending Unavailable GLORIAMIKY Attending Unavailable CELY CARVER Attending Unavailable SLAVA CASTRO Attending Unavailable АННА HA Attending Unavailable SLAVA CASTRO Attending Unavailable SLAVA CASTRO Attending Unavailable VIDYA JACKSON Attending Unavailable SLAVA CASTRO Attending Unavailable SLAVA [...] 81 mg by mouth Daily Active levonorgestrel 0.347160 mg/hr intrauterine system (2 sources) Progestin, Progestin-containi [...] PO Twice daily March 05, 2019 12:00am norethindrone 0.35 mg oral tablet (2 sources) Start: 10-26-2024 End: 11-23-2024 take 1 tablet by mouth once daily, then take 1 tablet by mouth once daily norethindrone (Micronor) 0.35 MG tablet Indications: 6 weeks follow-up ([facility]) Take 1 tablet (0.35 mg) by mouth Daily for 28 days Take 1 tablet by mouth daily 28 tablet 11 10/26/2024 11/23/2024 Active omeprazole 20 mg delayed release oral capsule (20 sources) Proton Pump Inhibitor Start: 05-10-2024 End: 05-10-2025 take 1 capsule by mouth once before mealtime omeprazole (PriLOSEC) [address] capsule Indications: Heartburn during in second trimester ([facility]) Take 1 capsule (20 mg) by [...] mouth at bedtime 30 tablet 2 08/23/2024 Active Start: 09-02-2023 take 1 tablet by [...] tolerance complicating ; childbirth; or the puerperium (8 sources) History of gestational diabetes mellitus; Translations: [...] 09-01-2023 09-01-2023 Chronic Other aftercare (1 source) manager terminal (current) use of hormonal contraceptives; Translations: [LEARN TO SWIM INSTRUCTOR HORMONAL CONTRACEPTIVES] Onset: 02-22-2022 Episodic Other aftercare (1 source) Other fdc (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 therapy; Translations: [OTH LONG-TERM CURRENT DRUG THERAPY] Onset: 02-22-2022 Episodic Other bone disease and musculoskeletal deformities (2 sources) Costal chondritis; 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 [Tietze]] 03-05-2019 Episodic Other complications of (8 sources) Multigravida of advanced maternal age; Translations: [Supervision of elderly multigravida, unspecified trimester] 06-16-2024 Episodic Other nutritional; endocrine; and metabolic disorders (1 source) Obesity, unspecified; Translations: [OBESITY UNSPECIFIED] Onset: 08-08-2021 Chronic Other nutritional; endocrine; and metabolic disorders (20 sources) Body mass index 30+ - obesity; Translations: [Obesity, unspecified] Onset: 05-26-2023 05-26-2023 Chronic Other and delivery including normal (20 sources) ; Translations: [Encounter for supervision of [...] [36 weeks gestation of ] 09-02-2024 Episodic Residual codes; unclassified (2 sources) Gestation period, 37 weeks; Translations: [37 weeks gestation of ] 09-09-2024 Episodic Residual codes; unclassified (2 sources) Gestation period, 38 weeks; Translations: [38 weeks gestation of ] 09-14-2024 Episodic Screening and history of mental health and substance abuse codes (1 source) Personal history of nicotine dependence; Translations: [PERSONAL HISTORY OF NICOTINE DEPEND] Onset: 02-22-2022 Episodic Short gestation; low weight; and growth retardation (6 sources) Ifcbs-nhw-tvoxs baby; Translations: [ small for gestational age, [...] Test Name Value Interpretation Reference Range Facility ALL CBC WITH AUTO DIFFon BASOPHILS ABSOLUTE AUTO 0 [facility] Basophils/100 WBC (Bld) 0.2 % 0.2 - 2.0 % [facility] Eosinophils/100 WBC (Bld) 0.2 % Low 0.9 - 7.0 % [facility] Erythrocyte distribution width (RBC) [Ratio] 14.3 % 11.0 - 15.0 % [facility] Hematocrit (Bld) [Volume fraction] 37.1 % 36.0 - 48.0 % [facility] Hemoglobin (Bld) [Mass/Vol] 12.3 g/dL 12.0 - 16.0 g/dL [facility] IMMATURE GRANULOCYTES ABS AUTO 0.05 High [facility] Immature granulocytes/100 WBC (Bld) 0.4 % 0.0 - 0.5 % [facility] Interpretation and review of laboratory results Abnormal [facility] LYMPHOCYTES ABSOLUTE AUTO 2.5 [facility] Lymphocytes/100 WBC (Bld) 19.3 % Low 20.5 - 60.0 % [facility] MCH (RBC) [Entitic mass] 30.6 pg 26.7 - 34.0 pg [facility] MCHC (RBC) [Mass/Vol] 33.2 g/dL 29.9 - 35.2 g/dL [facility] MCV (RBC) [Entitic vol] 92.3 fL 81.0 - 99.0 fL [facility] MONOCYTES ABSOLUTE AUTO 1.1 High [facility] Monocytes/100 WBC (Bld) 8.2 % 1.7 - 12.0 % [facility] NEUTROPHILS ABSOLUTE AUTO 9.4 High [facility] Neutrophils/100 WBC (Bld) 71.7 % 43.0 - 75.0 % [facility] Platelet mean volume (Bld) [Entitic vol] 11 fL 9.5 - 13.5 fL [facility] TB EO # 0 [facility] TB PLT 194 [facility] RBC 4.02 Low [facility] WBC 13.1 High [facility] UA (CLEAN/CATCH) PILOT SUPERVISOR/BHAVNA RO IF IND.on 09-14-2024 BILIRUBIN URINE Negative NEGATIVE [facility] BLOOD URINE Negative NEGATIVE [facility] Clarity (U) CLEAR CLEAR [facility] Color (U) LT. YELLOW YELLOW [facility] GLUCOSE URINE UA Negative NEGATIVE mg/dL [facility] Ketones Ql (U) Negative NEGATIVE mg/dL [facility] Leukocyte esterase Test strip Ql (U) Negative NEGATIVE [facility] NITRITE URINE Negative NEGATIVE [facility] pH (U) 7.0 [pH] 5.0 - 9.0 [facility] PROTEIN URINE Negative NEG/TRACE mg/dL [facility] SPECIFIC GRAVITY URINE 1.010 1.005 - 1.025 [facility] URINE MICROSCOPIC INDICATED NO [facility] UROBILINOGEN URINE 0.2 EU/dL 0.2 - 1.0 EU/dL [facility] Urinalysis macro (dipstick) panel (U)on 09-14-2024 Bilirubin, UA Negative Negative - 4(70) +++ mg/dL [facility] Blood, UA Negative Negative - 50 Richy/mcL [facility] Clarity, UA Clear [facility] Color, UA Yellow [facility] Glucose, UA Negative Negative - 1999(110) ++++ mg/dL [facility] Interpretation and review of laboratory results Abnormal [facility] Ketones, UA Negative Negative - 160(16) ++++ mg/dL [facility] Leukocytes, UA Negative Negative - 500+++ Tano/mcL [facility] Nitrite, UA Negative Negative - Positive [facility] pH, UA 7 5 - 9 [facility] Protein, UA Positive Negative - 1999(20) ++++ mg/dL [facility] Comment on above: 30 Spec Grav, UA 1.02 1 - 1.03 [facility] Urobilinogen, UA 1.0 0.2 - 12 mg/dL [facility] US OB BPP W NON-STRESS on 09-12-2024 [place] [address] Ultrasound Report Signed Patient: SHREYA MARSHALL MR#: [id number] : 1990 Acct:[id number] Age/Sex: 34 / F ADM Date: 09/12/24 Loc: FBCO Attending Dr: Radha Chi Ordering Physician: Radha Chi Date of Service: 09/12/24 Procedure(s): US OB BPP w non-stress Accession Number(s): [id number] cc: Анна Ha STRIPPING MACHINE OPERATOR; Radha Chi [place] [address] Patient Name: SHREYA MARSHALL MRN: [facility]:[id number] date: 1990 Sex: F Assigned Patient Location: [facility] Current Patient Location: Accession/Order Number: [id number] Exam Date: 09/12/2024 11:48 Report Date: 09/12/2024 11:49 At the request of: RADHA CHI Procedure: US OB BPP w non-stress Biophysical profile. Reason for exam: Repeat BPP. COMPARISON: BPP 09/11/2024. TECHNIQUE: Transabdominal imaging of the gravid uterus was obtained. FINDINGS: The flour inspector reports a BPP of 8 out of 8. LIVE is normal at 12.7 cm. heart rate 126 bpm. US/US OB BPP w non-stress IMPRESSION: BPP 8 out of 8. Impression dictated by: Avery Ram Jr., D.O. 09/12/2024 11:49 AM Dictation Location: [place] [address] Electronically authenticated by: [id number] Y Date: 09/12/2024 11:49 Dictated By: Avery Ram M.D. Signed By: 09/12/24 1152 DD/ 1149 TD/TT: Butting Saw Operator: [facility] Radiology, Radiologist, MD - 09/12/2024 [place] [address] Ultrasound Report Signed Patient: SHREYA MARSHALL MR#: [id number] : 1990 Acct:[id number] Age/Sex: 34 / F ADM Date: 09/12/24 Loc: [facility] Attending Dr: Radha Chi Ordering Physician: Radha Chi Date of Service: 09/12/24 Procedure(s): US OB BPP w non-stress Accession Number(s): [id number] cc: Анна Ha STRIPPING MACHINE OPERATOR; Radha Chi The [place] [id number] Patient Name: SHREYA MARSHALL MRN: [facility]:[id number] date: 1990 Sex: F Assigned Patient Location: [facility] Current Patient Location: Accession/Order Number: [id number] Exam Date: 09/12/2024 11:48 Report Date: 09/12/2024 11:49 At the request of: RADHA CHI Procedure: US OB BPP w non-stress Biophysical profile. Reason for exam: Repeat BPP. COMPARISON: BPP 09/11/2024. TECHNIQUE: Transabdominal imaging of the gravid uterus was obtained. FINDINGS: The flour inspector reports a BPP of 8 out of 8. LIVE is normal at 12.7 cm. heart rate 126 bpm. US/US OB BPP w non-stress IMPRESSION: BPP 8 out of 8. Impression dictated by: Avery Ram Jr., D.O. 09/12/2024 11:49 AM Dictation Location: [place] [address] Electronically authenticated by: [id number] Y Date: 09/12/2024 11:49 Dictated By: Avery Ram M.D. Signed By: 09/12/24 1152 DD/ 1149 TD/TT: Butting Saw Operator: [facility] Radiology Study observation (narrative) [facility] US OB BPP W NON-STRESS Ordered By: Radiologist Radiology on 09-12-2024 [facility] Work Phone: US OB BPP W NON-STRESS on 09-11-2024 [place] [address] Ultrasound Report Signed Patient: SHREYA MARSHALL MR#: [id number] : 1990 Acct:[id number] Age/Sex: 34 / F ADM Date: 09/11/24 Loc: FBCO Attending Dr: Slava Castro D.O. Ordering Physician: Slava Castro D.O. Date of Service: 09/11/24 Procedure(s): US OB BPP w non-stress Accession Number(s): [id number] cc: Анна Ha STRIPPING MACHINE OPERATOR; Slava Castro D.O. [place] [address] Patient Name: SHREYA MARSHALL MRN: [id number] date: 1990 Sex: F Assigned Patient Location: [facility] Current Patient Location: Accession/Order Number: [id number] Exam Date: 09/11/2024 14:21 Report Date: 09/11/2024 [...] Sheets M.D. 09/11/2024 2:23 PM Dictation Location: [place] [address] Electronically authenticated by: [id number] Y Date: 09/11/2024 14:23 Dictated By: Jake Sheets M.D. Signed By: 09/11/24 1425 DD/ 22 TD/TT: Butting Saw Operator: [facility] Radiology, Radiologist, MD - 09/11/2024 [place] [address] Ultrasound Report Signed Patient: SHREYA MARSHALL MR#: [id number] : 1990 Acct:[id number] Age/Sex: 34 / F ADM Date: 09/11/24 Loc: FBCO Attending Dr: Slava Castro D.O. Ordering Physician: Slava Castro D.O. Date of Service: 09/11/24 Procedure(s): US OB BPP w non-stress Accession Number(s): [id number] cc: Анна Ha STRIPPING MACHINE OPERATOR; Slava Castro D.O. The [address] [id number] Patient Name: SHREYA MARSHALL MRN: [facility]:[id number] date: 1990 Sex: F Assigned Patient Location: [facility] Current Patient Location: Accession/Order Number: [id number] Exam Date: 09/11/2024 14:21 Report Date: 09/11/2024 [...] Sheets M.D. 09/11/2024 2:23 PM Dictation Location: [place] [address] Electronically authenticated by: [id number] Y Date: 09/11/2024 14:23 Dictated By: Jake Sheets M.D. Signed By: 09/11/24 1425 DD/ 142 TD/TT: Butting Saw Operator: [facility] Radiology Study observation (narrative) [facility] US OB BPP W NON-STRESS Ordered By: Radiologist Radiology on 09-11-2024 [facility] Work Phone: No Panel InformationOrdered By: Radiologist Radiology on 09-09-2024 [facility] Work Phone: No Panel Informationon 09-09 Radiology Study observation (narrative) [facility] US OB BPP W NON-STRESS on 09-09-2024 [place] [address] Ultrasound Report Signed Patient: SHREYA MARSHALL MR#: [id number] : 1990 Acct:[id number] Age/Sex: 34 / F ADM Date: 09/08/24 Loc: US Attending Dr: Vidya Jackson Ordering Physician: Vidya Jackson Date of Service: 09/08/24 Procedure(s): US OB BPP w non-stress Accession Number(s): [id number] cc: Анна Ha STRIPPING MACHINE OPERATOR; Vidya Jackson [place] [id number] Patient Name: SHREYA MARSHALL MRN: [id number] date: 1990 Sex: F Assigned Patient Location: Current Patient Location: Accession/Order Number: [id number] Exam Date: 09/09/2024 08:04 Report Date: 09/09/2024 [...] 09/09/2024 8:12 AM Dictation Location: [place] [address] Electronically authenticated by: [id number] Y Date: 09/09/2024 08:12 Dictated By: Isatu Auguste M.D. Signed By: 09/09/2414 DD/ 1 TD/TT: Butting Saw Operator: [facility] Radiology, Radiologist, - 09/09/[address] [address] Ultrasound Report Signed Patient: SHREYA MARSHALL MR#: [id number] : 1990 Acct:[id number] Age/Sex: 34 / F ADM Date: 09/08/24 Loc: US Attending Dr: Vidya Jackson Ordering Physician: Vidya Jackson Date of Service: 09/08/24 Procedure(s): US OB BPP w non-stress Accession Number(s): [id number] cc: Анна Ha NP; Vidya Jackson [address] [address] Patient Name: SHREYA MARSHALL MRN: [id number] date: 1990 Sex: F Assigned Patient Location: Current Patient Location: Accession/Order Number: [id number] Exam Date: 09/09/2024 08:04 Report Date: 09/09/2024 [...] 09/09/2024 8:12 AM Dictation Location: [place] [address] Electronically authenticated by: [id number] Y Date: 09/09/2024 08:12 Dictated By: Isatu Auguste M.D. Signed By: 09/09/24813 DD/ 1 TD/TT: Butting Saw Operator: [facility] OB GROWTHon 09-09-2024 [place] [address] Ultrasound Report Signed Patient: SHREYA MARSHALL MR#: [id number] : 1990 Acct:[id number] Age/Sex: 34 / F ADM Date: 09/08/24 Loc: US Attending Dr: Vidya Jackson Ordering Physician: Vidya Jackson Date of Service: 09/08/24 Procedure(s): US OB growth Accession Number(s): [id number] cc: Анна Ha STRIPPING MACHINE OPERATOR; Vidya Jackson [place] [id number] Patient Name: SHREYA MARSHALL MRN: [id number]:[id number] date: 1990 Sex: F Assigned Patient Location: [facility] Current Patient Location: Accession/Order Number: [id number] Exam Date: 09/09/2024 08:04 Report Date: 09/09/2024 [...] 09/09/2024 8:12 AM Dictation Location: [place] [address] Electronically authenticated by: [id number] Y Date: 09/09/2024 08:12 Dictated By: Isatu Auguste M.D. Signed By: 09/09/24813 DD/ 1 TD/TT: Butting Saw Operator: [facility] Radiology, Radiologist, MD - 09/09/2024 [place] [address] Ultrasound Report Signed Patient: SHREYA MARSHALL MR#: [id number] : 1990 Acct:[id number] Age/Sex: 34 / F ADM Date: 09/08/24 Loc: US Attending Dr: Vidya Jackson Ordering Physician: Vidya Jackson Date of Service: 09/08/24 Procedure(s): US OB growth Accession Number(s): [id number] cc: Анна Ha NP; Vidya Jackson [place] [id number] Patient Name: SHREYA MARSHALL MRN: [facility]:[id number] date: 1990 Sex: F Assigned Patient Location: [facility] Current Patient Location: Accession/Order Number: [id number] Exam Date: 09/09/2024 08:04 Report Date: 09/09/2024 [...] 09/09/2024 8:12 AM Dictation Location: [place] [address] Electronically authenticated by: [id number] Y Date: 09/09/2024 08:12 Dictated By: Isatu Auguste M.D. Signed By: 09/09/24813 DD/ 1 TD/TT: Butting Saw Operator: [facility] Urinalysis macro (dipstick) panel (U)on 09-09-2024 Bilirubin, UA Negative Negative - 4(70) +++ [...] [facility] Protein, UA Positive Negative - 2000(20) ++++ mg/dL [facility] Comment on above: 30 Spec Grav, UA 1.02 1 - 1.03 [facility] Urobilinogen, UA 0.2 0.2 - 12 mg/dL [facility] STREP GP B CULTURE+RFLXon STREP GP B CULTURE+RFLX Strep Gp B Culture+Rflx [facility] STREP GP B CULTURE+RFLX Negative [facility] STREP GP B CULTURE+RFLX Centers for Disease Control and Prevention (CDC) and [facility] STREP GP B CULTURE+RFLX [employer] [facility] STREP GP B CULTURE+RFLX (ACOG) guidelines for prevention of group B [facility] STREP GP B CULTURE+RFLX streptococcal (GBS) disease specify co-collection of [facility] STREP GP B CULTURE+RFLX a vaginal and rectal swab specimen to maximize [facility] STREP GP B CULTURE+RFLX sensitivity of GBS detection. Per the CDC and ACOG, [facility] STREP GP B CULTURE+RFLX swabbing both the lower vagina and rectum [facility] STREP GP B CULTURE+RFLX substantially increases the yield of detection [facility] STREP GP B CULTURE+RFLX compared with sampling the vagina alone. [facility] STREP GP B CULTURE+RFLX Penicillin G, ampicillin, or cefazolin are indicated [facility] STREP GP B CULTURE+RFLX for intrapartum prophylaxis of GBS [facility] STREP GP B CULTURE+RFLX colonization. Reflex susceptibility testing should be [facility] STREP GP B CULTURE+RFLX performed prior to use of clindamycin only on GBS [facility] STREP GP B CULTURE+RFLX isolates from penicillin-allergic women who are [facility] STREP GP B CULTURE+RFLX considered a high risk for anaphylaxis. Treatment with [facility] STREP GP B CULTURE+RFLX vancomycin without additional testing is warranted if [facility] STREP GP B CULTURE+RFLX resistance to clindamycin is noted. [facility] STREP GP B CULTURE+RFLX Performed at: [facility] STREP GP B CULTURE+RFLX [address] [place] [id number] [facility] STREP GP B CULTURE+RFLX Derrick Boat Runner: Tony Bynum PhD, Phone: [phone] [facility] Urinalysis macro (dipstick) panel (U)on 09-02-2024 Bilirubin, [...] [facility] Comment on above: 30 Spec Grav, UA 1.02 1 - 1.03 [facility] Urobilinogen, UA 1.0 0.2 - 12 mg/dL [facility] US OB BPP W NON-STRESS on 09-01-2024 The [place] [id number] Ultrasound Report Signed Patient: SHREYA MARSHALL MR#: [id number] : 1990 Acct:[id number] Age/Sex: 34 / F ADM Date: 09/01/24 Loc: US Attending Dr: Vidya Jackson Ordering Physician: Vidya Jackson Date of Service: 09/01/24 Procedure(s): US OB BPP w non-stress Accession Number(s): [id number] cc: Анна Ha NP; Vidya Jackson [place] [id number] Patient Name: SHREYA MARSHALL MRN: [facility]:[id number] date: 1990 Sex: F Assigned Patient Location: US Current Patient Location: Accession/Order Number: [id number] Exam Date: 09/01/2024 15:10 Report Date: 09/01/2024 [...] Perez M.D. 09/01/2024 3:11 PM Dictation Location: [place] [address] Electronically authenticated by: [id number] Y Date: 09/01/2024 15:11 Dictated By: Emilio Perez D.O. Signed By: 09/01/24 1513 DD/ 151 TD/TT: Butting Saw Operator: [facility] Radiology, Radiologist, MD - 09/01/[address] [address] Ultrasound Report Signed Patient: SHREYA MARSHALL MR#: [id number] : 1990 Acct:[id number] Age/Sex: 34 / F ADM Date: 09/01/24 Loc: US Attending Dr: Vidya Jackson Ordering Physician: Vidya Jackson Date of Service: 09/01/24 Procedure(s): US OB BPP w non-stress Accession Number(s): [id number] cc: Анна Ha NP; Vidya Jackson The [address] [address] Patient Name: SHREYA MARSHALL MRN: [facility]:[id number] date: 1990 Sex: F Assigned Patient Location: US Current Patient Location: Accession/Order Number: [id number] Exam Date: 09/01/2024 15:10 Report Date: 09/01/2024 [...] Perez M.D. 09/01/2024 3:11 PM Dictation Location: [place] [address] Electronically authenticated by: [id number] Y Date: 09/01/2024 15:11 Dictated By: Emilio Perez D.O. Signed By: 09/01/24 1513 DD/ 151 TD/TT: Butting Saw Operator: [facility] Radiology Study observation (narrative) [facility] US OB BPP W NON-STRESS Ordered By: Radiologist Radiology on 09-01-2024 [facility] Work Phone: US OB BPP W NON-STRESS on 08-25-[address] [address] Ultrasound Report Signed Patient: SHREYA MARSHALL MR#: [id number] : 1990 Acct:[id number] Age/Sex: 33 / F ADM Date: 08/25/24 Loc: [facility] 253-[address]: Vidya Jackson Ordering Physician: Vidya Jackson Date of Service: 08/25/24 Procedure(s): US OB BPP w non-stress Accession Number(s): [id number] cc: Анна Ha NP; Vidya Jackson [place] [address] Patient Name: SHREYA MARSHALL MRN: [id number]:[id number] date: 1990 Sex: F Assigned Patient Location: [facility] Current Patient Location: [facility] Accession/Order Number: [id number] Exam Date: 08/25/2024 11:31 Report Date: 08/25/2024 [...] Auguste M.D. 08/25/2024 11:33 AM Dictation Location: [place] [address] Electronically authenticated by: [id number] Y Date: 08/25/2024 11:33 Dictated By: Isatu Auguste M.D. Signed By: 08/25/24 1135 DD/ 1133 TD/TT: Butting Saw Operator: [facility] Radiology, Radiologist, - 08/25/[address] [address] Ultrasound Report Signed Patient: SHREYA MARSHALL MR#: [id number] : 1990 Acct:[id number] Age/Sex: 33 / F ADM Date: 08/25/24 Loc: [facility] 253-[address]: Vidya Jackson Ordering Physician: Vidya Jackson Date of Service: 08/25/24 Procedure(s): US OB BPP w non-stress Accession Number(s): [id number] cc: Анна Ha NP; Vidya Jackson The [place] [id number] Patient Name: SHREYA MARSHALL MRN: [facility]:[id number] date: 1990 Sex: F Assigned Patient Location: [facility] Current Patient Location: [facility] Accession/Order Number: [id number] Exam Date: 08/25/2024 11:31 Report Date: 08/25/2024 [...] Auguste M.D. 08/25/2024 11:33 AM Dictation Location: [place] [address] Electronically authenticated by: [id number] Y Date: 08/25/2024 11:33 Dictated By: Isatu Auguste M.D. Signed By: 08/25/24 1135 DD/ 1133 TD/TT: Butting Saw Operator: [facility] Radiology Study observation (narrative) [facility] [facility] BPP W NON-STRESS Ordered By: Radiologist Radiology on 08-25-2024 [facility] Work Phone: US OB BPP W NON-STRESS on 08-18-2024 [place] [address] Ultrasound Report Signed Patient: SHREYA MARSHALL MR#: [id number] : 1990 Acct:[id number] Age/Sex: 33 / F ADM Date: 08/18/24 Loc: US Attending Dr: Vidya Jackson Ordering Physician: Vidya Jackson Date of Service: 08/18/24 Procedure(s): US OB BPP w non-stress Accession Number(s): [id number] cc: Анна Ha NP; Vidya Jackson [place] [id number] Patient Name: SHREYA MARSHALL MRN: [facility]:[id number] date: 1990 Sex: F Assigned Patient Location: [facility] Current Patient Location: Accession/Order Number: [id number] Exam Date: 08/18/2024 11:47 Report Date: 08/18/2024 [...] Auguste M.D. 08/18/2024 11:48 AM Dictation Location: [place] [address] Electronically authenticated by: [id number] Y Date: 08/18/2024 11:48 Dictated By: Isatu Auguste M.D. Signed By: 08/18/24 1151 DD/ 1148 TD/TT: Butting Saw Operator: [facility] Radiology, Radiologist, MD - 08/18/2024 [place] [address] Ultrasound Report Signed Patient: SHREYA MARSHALL MR#: [id number] : 1990 Acct:[id number] Age/Sex: 33 / F ADM Date: 08/18/24 Loc: US Attending Dr: Vidya Jackson Ordering Physician: Vidya Jackson Date of Service: 08/18/24 Procedure(s): US OB BPP w non-stress Accession Number(s): [id number] cc: Анна Ha STRIPPING MACHINE OPERATOR; Vidya Jackson The [place] [id number] Patient Name: SHREYA MARSHALL MRN: [facility]:[id number] date: 1990 Sex: F Assigned Patient Location: [facility] Current Patient Location: Accession/Order Number: [id number] Exam Date: 08/18/2024 11:47 Report Date: 08/18/2024 11:48 At the request of: VIDYA JACKSON Procedure: US OB BPP w non-stress BIOPHYSICAL PROFILE: CLINICAL INFORMATION: History of gestational diabetes Z86.32 COMPARISON: 08/13/2024 There is a single live intrauterine gestation in cephalic presentation. The reported gestational age is 34 weeks 5 days. The heart rate [id number] beats per minute. FINDINGS: TONE: 1 or [...] Auguste M.D. 08/18/2024 11:48 AM Dictation Location: [place] [address] Electronically authenticated by: [id number] Y Date: 08/18/2024 11:48 Dictated By: Isatu Auguste M.D. Signed By: 08/18/24 1151 DD/ 1148 TD/TT: Butting Saw Operator: [facility] Radiology Study observation (narrative) [facility] OB BPP W NON-STRESS Ordered By: Radiologist Radiology on 08-18-2024 [facility] Work Phone: OB BPP W NON-STRESS on 08-13-2024 [place] [address] Ultrasound Report Signed Patient: SHREYA MARSHALL MR#: [id number] : 1990 Acct:[id number] Age/Sex: 33 / F ADM Date: 08/13/24 Loc: US Attending Dr: Slava Castro D.O. Ordering Physician: Slava Castro D.O. Date of Service: 08/13/24 Procedure(s): US OB BPP w non-stress Accession Number(s): [id number] cc: Анна Ha STRIPPING MACHINE OPERATOR; Slava Castro D.O. The [place] [id number] Patient Name: SHREYA MARSHALL MRN: [facility]:[id number] date: 1990 Sex: F Assigned Patient Location: [facility] Current Patient Location: Accession/Order Number: [id number] Exam Date: 08/13/2024 17:25 Report Date: 08/13/2024 [...] Camacho M.D. 08/13/2024 5:27 PM Dictation Location: [place] [address] Electronically authenticated by: [id number] Y Date: 08/13/2024 17:27 Dictated By: Nilo Camacho M.D. Signed By: 08/13/241728 DD/ 26 TD/TT: Butting Saw Operator: [facility] Radiology, Radiologist, MD - 08/13/2024 [place] [address] Ultrasound Report Signed Patient: SHREYA MARSHALL MR#: [id number] : 1990 Acct:[id number] Age/Sex: 33 / F ADM Date: 08/13/24 Loc: US Attending Dr: Slava Castro D.O. Ordering Physician: Slava Castro D.O. Date of Service: 08/13/24 Procedure(s): US OB BPP w non-stress Accession Number(s): [id number] cc: Анна Ha STRIPPING MACHINE OPERATOR; Slaav Castro D.O. The [place] [id number] Patient Name: SHREYA MARSHALL MRN: [id number] date: 1990 Sex: F Assigned Patient Location: [facility] Current Patient Location: Accession/Order Number: [id number] Exam Date: 08/13/2024 17:25 Report Date: 08/13/2024 [...] Camacho M.D. 08/13/2024 5:27 PM Dictation Location: [place] [address] Electronically authenticated by: [id number] Y Date: 08/13/2024 17:27 Dictated By: Nilo Camacho M.D. Signed By: 08/13/241728 DD/ 26 TD/TT: Butting Saw Operator: [facility] Radiology Study observation (narrative) [facility] US OB BPP W NON-STRESS Ordered By: Radiologist Radiology on 08-13-2024 [facility] Work Phone: US OB BPP W NON-STRESS on 08-11-2024 [place] [address] Ultrasound Report Signed Patient: SHREYA MARSHALL MR#: [id number] : 1990 Acct:[id number] Age/Sex: 33 / F ADM Date: 08/11/24 Loc: [facility] 254-[address]: Vidya Jackson Ordering Physician: Vidya Jackson Date of Service: 08/11/24 Procedure(s): US OB BPP w non-stress Accession Number(s): [id number] cc: Анна Ha NP; Vidya Jackson The [place] [address] Patient Name: SHREYA MARSHALL MRN: [facility]:[id number] date: 1990 Sex: F Assigned Patient Location: [facility] Current Patient Location: [facility] Accession/Order Number: [id number] Exam Date: 08/11/2024 12:18 Report Date: 08/11/2024 [...] Auguste M.D. 08/11/2024 12:20 PM Dictation Location: [place] [address] Electronically authenticated by: [id number] Y Date: 08/11/2024 12:20 Dictated By: Isatu Auguste M.D. Signed By: 08/11/24 1222 DD/ 1220 TD/TT: Butting Saw Operator: [facility] Radiology, Radiologist, MD - 08/11/2024 [place] [address] Ultrasound Report Signed Patient: SHREYA MARSHALL MR#: [id number] : 1990 Acct:[id number] Age/Sex: 33 / F ADM Date: 08/11/24 Loc: [facility] 254-[address]: Vidya Jackson Ordering Physician: Vidya Jackson Date of Service: 08/11/24 Procedure(s): US OB BPP w non-stress Accession Number(s): [id number] cc: Анна Ha NP; Vidya Jackson [place] [address] Patient Name: SHREYA MARSHALL MRN: [facility]:[id number] date: 1990 Sex: F Assigned Patient Location: [facility] Current Patient Location: [facility] Accession/Order Number: [id number] Exam Date: 08/11/2024 12:18 Report Date: 08/11/2024 [...] Auguste M.D. 08/11/2024 12:20 PM Dictation Location: [place] [address] Electronically authenticated by: [id number] Y Date: 08/11/2024 12:20 Dictated By: Isatu Auguste M.D. Signed By: 08/11/24 1222 DD/ 1220 TD/TT: Butting Saw Operator: [facility] Radiology Study observation (narrative) [facility] US OB BPP W NON-STRESS Ordered By: Radiologist Radiology on 08-11-2024 [facility] Work Phone: US OB BPP W NON-STRESS on 08-04-2024 [place] [address] Ultrasound Report Signed Patient: SHREYA MARSHALL MR#: [id number] : 1990 Acct:[id number] Age/Sex: 33 / F ADM Date: 08/04/24 Loc: [facility] 250-[address]: Vidya Jackson Ordering Physician: Vidya Jackson Date of Service: 08/04/24 Procedure(s): US OB BPP w non-stress Accession Number(s): [id number] cc: Анна Ha NP; Vidya Jackson [place] [id number] Patient Name: SHREYA MARSHALL MRN: [facility]:[id number] date: 1990 Sex: F Assigned Patient Location: [facility] Current Patient Location: [facility] Accession/Order Number: [id number] Exam Date: 08/04/2024 11:42 Report Date: 08/04/2024 [...] Auguste M.D. 08/04/2024 11:43 AM Dictation Location: [place] [address] Electronically authenticated by: [id number] Y Date: 08/04/2024 11:43 Dictated By: Isatu Auguste M.D. Signed By: 08/04/24 1146 DD/ 1143 TD/TT: Butting Saw Operator: [facility] Radiology, Radiologist, MD - 08/04/2024 [place] [address] Ultrasound Report Signed Patient: SHREYA MARSHALL MR#: [id number] : 1990 Acct:[id number] Age/Sex: 33 / F ADM Date: 08/04/24 Loc: [place] [address]: Vidya Jackson Ordering Physician: Vidya Jackson Date of Service: 08/04/24 Procedure(s): US OB BPP w non-stress Accession Number(s): [id number] cc: Анна Ha NP; Vidya Jackson The [address] [address] Patient Name: SHREYA MARSHALL MRN: [facility]:[id number] date: 1990 Sex: F Assigned Patient Location: [facility] Current Patient Location: [facility] Accession/Order Number: [id number] Exam Date: 08/04/2024 11:42 Report Date: 08/04/2024 [...] This is in low-normal range. Total score: 10/01 US/US OB BPP w non-stress IMPRESSION: NORMAL BIOPHYSICAL PROFILE . Impression dictated by: Isatu Auguste M.D. 08/04/2024 11:43 AM Dictation Location: [place] [address] Electronically authenticated by: [id number] Y Date: 08/04/2024 11:43 Dictated By: Isatu Auguste M.D. Signed By: 08/04/24 1146 DD/ 1143 TD/TT: Butting Saw Operator: [facility] Radiology Study [...] 0.2 0.2 - 12 mg/dL [facility] OB GROWTHon 07-28-[address] [address] Ultrasound Report Signed Patient: SHREYA MARSHALL MR#: [id number] : 1990 Acct:[id number] Age/Sex: 33 / F ADM Date: 07/28/24 Loc: US Attending Dr: Slava Castro D.O. Ordering Physician: Slava Castro D.O. Date of Service: 07/28/24 Procedure(s): US OB growth Accession Number(s): [id number] cc: Анна Ha NP; Slava Castro D.O. [place] [address] Patient Name: SHREYA MARSHALL MRN: [facility]:[id number] date: 1990 Sex: F Assigned Patient Location: Current Patient Location: US Accession/Order Number: [id number] Exam Date: 07/28/2024 10:44 Report Date: 07/28/2024 [...] Auguste M.D. 07/28/2024 10:48 AM Dictation Location: [place] [address] Electronically authenticated by: [id number] Y Date: 07/28/2024 10:48 Dictated By: Isatu Auguste M.D. Signed By: 07/28/24 1051 DD/ 1048 TD/TT: Butting Saw Operator: [facility] Radiology, Radiologist, MD - 07/28/2024 [place] [address] Ultrasound Report Signed Patient: SHREYA MARSHALL MR#: [id number] : 1990 Acct:[id number] Age/Sex: 33 / F ADM Date: 07/28/24 Loc: US Attending Dr: Slava Castro D.O. Ordering Physician: Slava Castro D.O. Date of Service: 07/28/24 Procedure(s): US OB growth Accession Number(s): [id number] cc: Анна Ha NP; Slava Castro D.O. The [place] [address] Patient Name: SHREYA MARSHALL MRN: [facility]:[id number] date: 1990 Sex: F Assigned Patient Location: US Current Patient Location: US Accession/Order Number: [id number] Exam Date: 07/28/2024 10:44 Report Date: 07/28/2024 [...] Auguste M.D. 07/28/2024 10:48 AM Dictation Location: [place] [address] Electronically authenticated by: [id number] Y Date: 07/28/2024 10:48 Dictated By: Isatu Auguste M.D. Signed By: 07/28/24 1051 DD/ 1048 TD/TT: Butting Saw Operator: [facility] Radiology Study observation (narrative) [facility] OB GROWTHOrdered By: Tatiana ologist Radiology on [...] results Abnormal [facility] OB FOLLOW UP TRANSABDOMIN AL APPROACHon [...] II, MD, PHD at 07-Jul-2024 10:00:26 AM [facility] Normal Not Available Comment on above: [...] Urobilinogen, UA 0.2 0.2 - 12 mg/dL [facility] ALL CBC WITH AUTO DIFFon BASOPHILS ABSOLUTE [...] [facility] RANJANA KRUSEI Not detected [facility] CHLAMYDIA TRACHOMATIS 0 [facility] CHLAMYDIA TRACHOMATIS Not detected N [facility] GARDNERELLA VAGINALIS 0 [facility] GARDNERELLA VAGINALIS Not detected N [facility] MEGASPHAERA (TYPES 1, 2) 0 [facility] MEGASPHAERA (TYPES 1, 2) Not detected [facility] MYCOPLASMA GENITALIUM 0 [facility] MYCOPLASMA GENITALIUM Not detected N [facility] NEISSERIA GONORRHOEAE 0 [facility] NEISSERIA GONORRHOEAE Not detected N [facility] TRICHOMONAS VAGINALIS 0 [facility] TRICHOMONAS VAGINALIS Not detected N [facility] Urinalysis macro (dipstick) panel (U)on 06-16-2024 [...] Urobilinogen, UA 0.2 0.2 - 12 mg/dL [facility] US OB 14+ WEEKS ANATOMY SCAN on [...] II, MD, PHD at 11-May-2024 12:36:27 AM [facility] Normal Not Available Comment on above: [...] Urobilinogen, UA 1.0 0.2 - 12 mg/dL [facility] Urinalysis macro (dipstick) panel (U)on 03-10-2024 Bilirubin, [...] Urobilinogen, UA 0.2 0.2 - 12 mg/dL [facility] BOX TESTon 02-27-2024 BOX TEST SENT OUT [facility] BOX1 [facility] BOX2 02/27/24 [facility] BOX [facility] Urine Cultureon 02-27-2024 Bacteria identified Cx Nom (U) No Growth 2 Days PERFORMED BY: [place] [address] PATHOLOGIST ORNAMENT STITCHER SHEREE MCCARTHY M.D. Normal [facility] Comment on above: Performed By: #### C UU #### [address] HCG ( test) Ql (U)o n 02-11-2024 Interpretation and review of laboratory results Abnormal [facility] Preg Test, Ur Positive Negative [facility] Urinalysis macro (dipstick) panel (U)on 02-11-2024 Bilirubin, [...] [facility] Protein, UA Positive Negative - 2000(20) ++++ mg/dL [facility] Comment on above: 100 Spec Grav, UA 1.03 1 - 1.03 [facility] Urobilinogen, UA 0.2 0.2 - 12 mg/dL [facility] PREG QUANT HCGon 024 HCG QUANTITATIVE 92279 mIU/mL [facility] Comment on above: 5-50 0.2-1 WEEK 50-500 1-2 WEEKS 100-5,000 2-3 WEEKS 500-10,000 3-4 WEEKS 1,000-50,000 4-5 WEEKS 10,000-100,000 5-6 WEEKS 15,000-200,000 6-8 WEEKS 10,000-100,000 2-3 [facility] 024 HCG QUANTITATIVE 30750 mIU/mL [facility] Comment on above: 5-50 0.2-1 WEEK 50-500 1-2 WEEKS 100-5,000 2-3 WEEKS 500-10,000 3-4 WEEKS 1,000-50,000 4-5 WEEKS 10,000-100,000 5-6 WEEKS 15,000-200,000 6-8 WEEKS 10,000-100,000 2-3 [facility] HCGon 024 HCG QUANTITATIVE 34400 mIU/mL [facility] Comment on above: 5-50 0.2-1 WEEK 50-500 1-2 WEEKS 100-5,000 2-3 WEEKS 500-10,000 3-4 WEEKS 1,000-50,000 4-5 WEEKS 10,000-100,000 5-6 WEEKS 15,000-200,000 6-8 WEEKS 10,000-100,000 2-3 [facility] HCGon 024 HCG QUANTITATIVE 30505 mIU/mL [facility] Comment on above: 5-50 0.2-1 WEEK 50-500 1-2 WEEKS 100-5,000 2-3 WEEKS 500-10,000 3-4 WEEKS 1,000-50,000 4-5 WEEKS 10,000-100,000 5-6 WEEKS 15,000-200,000 6-8 WEEKS 10,000-100,000 2-3 MONTHS [facility] PREG QUANT HCGon 024 HCG QUANTITATIVE 8911 mIU/mL [facility] Comment on above: 5-50 0.2-1 WEEK 50-500 1-2 WEEKS 100-5,000 2-3 WEEKS 500-10,000 3-4 WEEKS 1,000-50,000 4-5 WEEKS 10,000-100,000 5-6 WEEKS 15,000-200,000 6-8 WEEKS 10,000-100,000 2-3 MONTHS [facility] PREG QUANT HCGon 024 HCG QUANTITATIVE 4641 mIU/mL [facility] Comment on above: 5-50 0.2-1 WEEK 50-500 1-2 WEEKS 100-5,000 2-3 WEEKS 500-10,000 3-4 WEEKS 1,000-50,000 4-5 WEEKS 10,000-100,000 5-6 WEEKS 15,000-200,000 6-8 WEEKS 10,000-100,000 2-3 MONTHS [facility] PREG QUANT HCGon 024 HCG QUANTITATIVE 2241 mIU/mL [facility] Comment on above: 5-50 0.2-1 WEEK 50-500 1-2 WEEKS 100-5,000 2-3 WEEKS 500-10,000 3-4 WEEKS 1,000-50,000 4-5 WEEKS 10,000-100,000 5-6 WEEKS 15,000-200,000 6-8 WEEKS 10,000-100,000 2-3 MONTHS [facility] PREG QUANT HCGon 024 HCG QUANTITATIVE 884 mIU/mL [facility] Comment on above: 5-50 0.2-1 WEEK 50-500 1-2 WEEKS 100-5,000 2-3 WEEKS 500-10,000 3-4 WEEKS 1,000-50,000 4-5 WEEKS 10,000-100,000 5-6 WEEKS 15,000-200,000 6-8 WEEKS 10,000-100,000 2[facility] IGP,APTIMA HPV,AGE GDLNon AGE GDLN ACOG TESTING Note . [facility] Comment on above: TESTS RESULT FLAG UN ITS REF RANGE LAB Clinician Provided Cytology Information Source.............Cervix;Endocervix No. of containers..01 ThinPrep Vial Age Algo ACOG Sylvia... FLAG LEGEND: L-Low Normal,H-High Normal,LL-Alert Low,HH-Alert High <-Panic Low,>-Panic High,A-Abnormal,AA-Critical Abnormal Performed at: 01 =[address] [address] Amber iTlley MD, HPV APTIMA Negative Negative [facility] Comment on above: This nucleic acid am plification test detects fourteen high- risk HPV types (16,18,31,33,35,39,45,51,52,56,58,59,66,68) without differentiation. Performed at: =[address] [id number] Derrick Boat Runner: Amber Tilley MD, Phone: [phone] Performed at: [address] [id number] Derrick Boat Runner: Amber Tilley MD, Phone: [phone] IGP, APTIMA HPV, RFX 16/18,45 Note . [facility] Comment on above: TESTS RESULT FLAG UN ITS REF RANGE LAB DIAGNOSIS: 02 NEGATIVE FOR INTRAEPITHELIAL LESION OR MALIGNANCY. REACTIVE CELLULAR CHANGES AND/OR REPAIR ARE PRESENT. Specimen adequacy: 02 Satisfactory for evaluation. Endocervical and/or squamous metaplastic cells (endocervical component) are present. Performed by: Peggy Gandhi, Hospitalist Physician (ASCP) Electronically si... Divya Hoffman MD, Pathologist [...] Low,>-Panic High,A-Abnormal,AA-Critical Abnormal Performed at: [address] [address] Amber Tilley MD, BRUSH-SPATULA CERVIX ENDOCERVIX [facility] Cytology Cervical or vaginal smear or scraping studyon 12-10-2023 [facility] HCG ( test) Ql (U)o n 12-10-2023 Interpretation and review of laboratory results Normal [facility] Preg Test, Ur Negative [facility] 06-30-2023 L Specimen: [id number] Received: 07/01/23 Status: [place]EN [place] Num: [id number] Spec Type: Surgical Subm Dr: Slava Castro Tissues: A Products of Conception - Spontaneous or Missed (POC) Procedures: HE/3, Gross/Micro L4 Age/ Patient Sex Location Account Attending Physician Shreya Marshall 32/F LABELL [id number] Slava Castro SPEC NUM: [id number] RECD: 07/01/23 STATUS: WEN [place] NUM: [id number] [place]: 06/30/[address]: Slava Castro ENTERED: [...] spongy harman tissue consistent with villous tissue. Chemical Engineering Technician sections are submitted in A1?A3 to include the villous tissue in A1. Clinical history: Missed TW -------- Specimen: [id number] Received: 07/01/23 Status: WEN [place] Num: [id number] Spec Type: Surgical Subm Dr: Slava Castro Tissues: A Products of Conception - Spontaneous or Missed (POC) Procedures: HE/3, Gross/Micro L4 -------- Patient: Shreya Marshall [id number] (Continued) -------- Specimen: [id number] Received: 07/01/23 (Continued) Signed (signature on file) Shen Virgen MD 07/02/23 1859 -------- Specimen: [id number] Received: 07/01/23 Status: WEN [place] Num: [id number] Spec Type: Surgical Subm Dr: Slava Gloria Tissues: A Products of Conception - Spontaneous or Missed (POC) Procedures: Meghan BLAKE/Micro L4 -------- Patient: RolandoShreya D [id number] (Continued) -------- Specimen: [id number] Received: 07/01/23 (Continued) CPT Codes 70168 -------- -------- Specimen: [id number] Received: 07/01/23 Status: WEN [place] Num: [id number] Spec Type: Surgical Subm : Slava Castro Tissues: A Products of Conception - Spontaneous or Missed (POC) Procedures: Meghan BLAKE/Micro L4 -------- Patient: Shreya Marshall [id number] (Continued) -------- Signed (signature on file) Chin-Rishi Virgen MD 07/02/231858 Normal [facility] Covid-19 PCR (CVDTB)on 01-25 SARS-CoV-2 (COVID-19) RNA JUAN+probe Ql (Unsp spec) Not detected Normal NOT DETECTED [facility] Comment on above: Result Comment: This test is not yet approved or cleared by the [place] FDA. When there are no FDA-approved or cleared tests available, and other criteria are met, FDA can make tests available under an emergency access mechanism called an Emergency Use Authorization (EUA). The EUA for this test is supported by the Plant Maintenance Technician of Health and Human Service's (HHS's) declaration [...] By: #### C VDTB #### [facility] Laboratory [address] [place] [address] Dr. Luis Virgen INFLUENZA A AND B AGon 02-20 [facility] SEE BELOW [facility] Comment on above: Result Comment: Nega tive for Flu B protein antigen. Infection due to Flu B cannot be ruled out. Flu B antigen in the sample may be below the detection limit of the test. Performed By: #### I NFLUAB #### [facility] [address] [place] [address] Dr. Luis Virgen INFLUENZA A AG Positive Abnormal NEGATIVE SEE COMMENT [facility] Comment on above: Performed By: #### I NFLUAB #### [facility] [address] [place] [address] Dr. Luis Virgen INFLUENZA B AG Negative Normal NEGATIVE SEE COMMENT [facility] Comment on above: Performed By: #### I NFLUAB #### [facility] [address] [place] [address] Dr. Luis Virgen XR CHEST 1 Von 02-20-2022 XR CHEST 1 V EXAM: CHEST 1 VIEW HISTORY: COUGH TECHNIQUE: Chest, one view. COMPARISON: None. FINDINGS: Lungs are clear. No focal consolidation, pleural effusion, or pneumothorax. Pulmonary vasculature is within normal limits. Cardiomediastinal silhouette is normal. IMPRESSION: 1. No acute cardiopulmonary disease. Electronically authenticated by: PHOEBE ALFARO Date: 2022-02-20 17:46 Normal [facility] PAP ACOG PANEL 2: 30 to 65on 11-13-2021 . . Normal [facility] Comment on above: Result Comment: Perf ormed at: WB Performed By: #### [id number] #### [facility] [address] [place] [address] Dr. Luis Virgen Age Gdln ACOG Testing 30-65 Normal [facility] Comment on above: Performed By: #### 4 [id number] #### [facility] [address] [place] [address] Dr. Luis Virgen DIAGNOSIS: Comment Normal [facility] Comment on above: Result Comment: NEGA TIVE FOR INTRAEPITHELIAL LESION OR MALIGNANCY. Performed at: WB Performed By: #### 4 [id number] #### [facility] [address] [place] [address] Dr. Luis Virgen HPV Aptima Negative Normal Negative [facility] Comment on above: Result Comment: This nucleic acid amplification test detects fourteen high-risk HPV types (16,18,31,33,35,39,45,51,52,56,58,59,66,68) without differentiation. Performed at: =G Performed By: #### 4 [id number] #### [facility] [address] [place] [address] Dr. Luis Virgen Methodology: Comment Normal [facility] Comment on above: Result Comment: This liquid based ThinPrep(R) pap test was screened with the use of an image guided system. Performed at: WB Performed By: #### [id number] #### [facility] [address] [place] [address] Dr. Luis Virgen Note: Comment Normal [facility] Comment on above: Result Comment: The Pap smear is a screening test designed to aid in the detection of premalignant and malignant conditions of the uterine cervix. It is not a diagnostic procedure and should not be used as the sole means of detecting cervical cancer. Both false-positive and false-negative reports do occur. . Performed at: WB Performed By: #### [id number] #### [facility] [address] [place] [address] Dr. Luis Virgen Performed by: Comment Normal [facility] Comment on above: Result Comment: Maureen Del Cid Hospitalist Physician (ASCP) Performed at: WB Performed By: [id number] #### [facility] [address] [place] [address] Dr. Luis Virgen Specimen adequacy: Comment Normal [facility] Comment on above: Result Comment: Sati sfactory for evaluation. Endocervical and/or squamous metaplastic cells (endocervical component) are present. Performed at: WB Performed By: [id number] #### [facility] [address] [place] [address] Dr. Luis Virgen URon 08-20-2021 , QUAL Negative Normal NEGATIVE [facility] Comment on above: Performed By: #### P REGU #### [facility] [address] [place] [address] Dr. Luis Virgen CBC AUTO DIFFon 08-06-2021 BASO # 0.0 103/ul Normal 0.0-0.1 [facility] Comment on above: Performed By: #### C BC #### [facility] [address] [place] [address] Dr. Luis Virgen Basophils/100 WBC (Bld) 0.3 % Normal 0.2-2.0 [facility] Comment on above: Performed By: #### C BC #### [facility] [address] [place] [address] Dr. Luis Virgen EO # 0.0 103/ul Normal 0.0-0.7 [facility] Comment on above: Performed By: #### C BC #### [facility] [address] [place] [address] Dr. Luis Virgen Eosinophils/100 WBC (Bld) 0.3 % Critically low 0.9-7.0 [facility] Comment on above: Performed By: #### C BC #### [facility] [address] [place] [address] Dr. Luis Virgen Erythrocyte distribution width (RBC) [Ratio] 12.6 % Normal 11.0-15.0 [facility] Comment on above: Performed By: #### C BC #### [facility] [address] [place] [address] Dr. Luis Virgen Hematocrit (Bld) [Volume fraction] 41.5 % Normal 36.0-48.0 [facility] Comment on above: Performed By: #### C BC #### [facility] [address] [place] [address] Dr. Luis Virgen Hemoglobin (Bld) [Mass/Vol] 13.5 g/dL Normal 12.0-16.0 [facility] Comment on above: Performed By: #### C BC #### [facility] [address] [place] [address] Dr. Luis Virgen IG # 0.03 10e3/ul Normal 0.00-0.03 [facility] Comment on above: Performed By: #### C BC #### [facility] [address] [place] [address] Dr. Luis Virgen IG % 0.4 % Normal 0.0-0.5 [facility] Comment on above: Performed By: #### C BC #### [facility] [address] [place] [address] Dr. Luis Virgen LYMPH # 2.4 103/ul Normal 1.2-3.8 [facility] Comment on above: Performed By: #### C BC #### [facility] [address] [place] [address] Dr. Luis Virgen Lymphocytes/100 WBC (Bld) 31.8 % Normal 20.5-60.0 [facility] Comment on above: Performed By: #### C BC #### [facility] [address] [place] [address] Dr. Luis Virgen MANUAL DIFF REQ NO Normal [facility] Comment on above: Performed By: #### C BC #### [facility] [address] [place] [address] Dr. Luis Virgen MCH (RBC) [Entitic mass] 30.5 pg Normal 26.7-34.0 [facility] Comment on above: Performed By: #### C BC #### [facility] [address] [place] [address] Dr. Luis Virgen MCHC (RBC) [Mass/Vol] 32.5 g/dL Normal 29.9-35.2 [facility] Comment on above: Performed By: #### C BC #### [facility] [address] [place] [address] Dr. Luis Virgen MCV (RBC) [Entitic vol] 93.9 fL Normal 81.0-99.0 [facility] Comment on above: Performed By: #### C BC #### [facility] [address] [place] [address] Dr. Luis Virgen MONO # 0.6 103/ul Normal 0.3-0.8 [facility] Comment on above: Performed By: #### C BC #### [facility] [address] [place] [address] Dr. Luis Virgen Monocytes/100 WBC (Bld) 7.4 % Normal 1.7-12.0 [facility] Comment on above: Performed By: #### C BC #### [facility] [address] [place] [address] Dr. Luis Virgen NEUT # 4.5 103/ul Normal 1.4-6.5 [facility] Comment on above: Performed By: #### C BC #### [facility] [address] [place] [address] Dr. Luis Virgen Neutrophils/100 WBC (Bld) 59.8 % Normal 43.0-75.0 [facility] Comment on above: Performed By: #### C BC #### [facility] [address] [place] [address] Dr. Luis Virgen Platelet mean volume (Bld) [Entitic vol] 10.0 fL Normal 9.5-13.5 [facility] Comment on above: Performed By: #### C BC #### [facility] [address] [place] [address] Dr. Luis Virgen PLT 337 103/ul Normal 150-450 [facility] Comment on above: Performed By: #### C BC #### [facility] [address] [place] [address] Dr. Luis Virgen RBC 4.42 106/ul Normal 4.20-5.40 [facility] Comment on above: Performed By: #### C BC #### [facility] [address] [place] [address] Dr. Luis Virgen WBC 7.6 103/ul Normal 4.0-11.0 [facility] Comment on above: Performed By: #### C BC #### [facility] [address] [place] [address] Dr. Luis Virgen FREE T4on 08-06-2021 Free T4 [Mass/Vol] 0.91 ng/dL Normal 0.76-1.46 [facility] Comment on above: Performed By: #### F T4 #### [facility] [address] [place], [place] [address] Dr. Luis Virgen LIPID PROFILEon 08-06-2021 CHOL-HDL RATIO NORM SEE BELOW Normal [facility] Comment on above: Result Comment: 3.3 - 4.4 LOW RISK 4.4 - 7.1 AVERAGE RISK 7.1 - 11.0 MODERATE RISK >11.0 HIGH RISK Performed By: #### C MP, TSH, LIPID #### [facility] [address] [address] [address] Luis Virgen Cholesterol [Mass/Vol] 154 mg/dL Normal <=200 [facility] Comment on above: Performed By: #### C MP, TSH, LIPID #### [facility] [address] [address] [address] Luis Virgen Cholesterol in HDL [Mass/Vol] 35 mg/dL Critically low 40-60 [facility] Comment on above: Performed By: #### C MP, TSH, LIPID #### [facility] [address] [address] [address] Luis Virgen Cholesterol in LDL [Mass/Vol] 80.8 mg/dL Normal [facility] Comment on above: Performed By: #### C MP, TSH, LIPID #### [facility] [address] [place], [place] [address] Dr. Luis Virgen Cholesterol.total/Chol esterol in HDL [Mass ratio] 4.4 {ratio} Normal [facility] Comment on above: Performed By: #### C MP, TSH, LIPID #### [facility] [address] [address] [address] Luis Virgen HDL NORMAL > or = 60 mg/dl - LO W CARDIOVASCULAR RISK <40 mg/dl - HIGH CARDIOVASCULAR RISK Normal [facility] Comment on above: Performed By: #### C MP, TSH, LIPID #### [facility] [address] [address] [address] Luis Virgen LDL CALC NORMAL SEE BELOW Normal [facility] Comment on above: Result Comment: <100 mg/dl OPTIMAL 100 - 129 mg/dl NEAR OR ABOVE OPTIMAL 130 - 159 mg/dl BORDERLINE HIGH 160 - 189 mg/dl HIGH >190 mg/dl VERY HIGH Performed By: #### C MP, TSH, LIPID #### [facility] [address] [place] [address] Dr. Luis Virgen Triglyceride [Mass/Vol] 191 mg/dL Critically high <=150 [facility] Comment on above: Performed By: #### C MP, TSH, LIPID #### [facility] [address] [place] [address] Dr. Luis Virgen VLDL CALC 38.2 mg/dL Normal [facility] Comment on above: Performed By: #### C MP, TSH, LIPID #### [facility] [address] [place] [address] Dr. Luis Virgen PROF 14(COMP METB)on 022 Albumin [Mass/Vol] 4.1 g/dL Normal 3.4-5.0 [facility] Comment on above: Performed By: #### C MP, TSH, LIPID #### [facility] [address] [place] [address] Dr. Luis Virgen Albumin/Globulin [Mass ratio] 1.2 {ratio} Normal [facility] Comment on above: Performed By: #### C MP, TSH, LIPID #### [facility] [address] [place] [address] Dr. Luis Virgen ALP [Catalytic activity/Vol] 73 U/L Normal 46-116 [facility] Comment on above: Performed By: #### C MP, TSH, LIPID #### [facility] [address] [place] [address] Dr. Luis Virgen ALT [Catalytic activity/Vol] 24 U/L Normal 14-59 [facility] Comment on above: Performed By: #### C MP, TSH, LIPID #### [facility] [address] [place] [address] Dr. Luis Virgen Anion gap [Moles/Vol] 13.2 mmol/L Normal [facility] Comment on above: Performed By: #### C MP, TSH, LIPID #### [facility] [address] [address] [address] Luis Virgen AST [Catalytic activity/Vol] 11 U/L Critically low 15-37 [facility] Comment on above: Performed By: #### C MP, TSH, LIPID #### [facility] [address] [place] [address] Dr. Luis Virgen Bilirubin [Mass/Vol] 0.8 mg/dL Normal 0.2-1.0 [facility] Comment on above: Performed By: #### C MP, TSH, LIPID #### [facility] [address] [place] [address] Dr. Luis Virgen Calcium [Mass/Vol] 8.9 mg/dL Normal 8.5-10.1 [facility] Comment on above: Performed By: #### C MP, TSH, LIPID #### [facility] [address] [place] [address] Dr. Luis Virgen Chloride [Moles/Vol] 103 mmol/L Normal 98-107 [facility] Comment on above: Performed By: #### C MP, TSH, LIPID #### [facility] [address] [place] [address] Dr. Luis Virgen CO2 [Moles/Vol] 27.5 mmol/L Normal 21.0-32.0 [facility] Comment on above: Performed By: #### C MP, TSH, LIPID #### [facility] [address] [place] [address] Dr. Luis Virgen Creatinine [Mass/Vol] 0.71 mg/dL Normal 0.55-1.02 [facility] Comment on above: Performed By: #### C MP, TSH, LIPID #### [facility] [address] [place] [address] Dr. Luis Virgen EGFR-AF AUSTRIAN >60 Normal >=60 [facility] Comment on above: Performed By: #### C MP, TSH, LIPID #### [facility] [address] [place] [address] Dr. Luis Virgen EGFR-NON AF AUSTRIAN >60 Normal >=60 [facility] Comment on above: Performed By: #### C MP, TSH, LIPID #### [facility] [address] [address] [address] Luis Virgen Globulin (S) [Mass/Vol] 3.5 g/dL Normal [facility] Comment on above: Performed By: #### C MP, TSH, LIPID #### [facility] [address] [address] [address] Luis Virgen Glucose [Mass/Vol] 101 mg/dL Normal 74-106 [facility] Comment on above: Performed By: #### C MP, TSH, LIPID #### [facility] [address] [place] [address] Dr. Luis Virgen Potassium [Moles/Vol] 4.7 mmol/L Normal 3.5-5.1 [facility] Comment on above: Performed By: #### C MP, TSH, LIPID #### [facility] [address] [place] [address] Dr. Luis Virgen Protein [Mass/Vol] 7.6 g/dL Normal 6.4-8.2 [facility] Comment on above: Performed By: #### C MP, TSH, LIPID #### [facility] [address] [place] [address] Dr. Luis Virgen Sodium [Moles/Vol] 139 mmol/L Normal 136-145 [facility] Comment on above: Performed By: #### C MP, TSH, LIPID #### [facility] [address] [place] [address] Dr. Luis Virgen Urea nitrogen [Mass/Vol] 9.0 mg/dL Normal 7.0-18.0 [facility] Comment on above: Performed By: #### C MP, TSH, LIPID #### [facility] [address] [place] [address] Dr. Luis Virgen Urea nitrogen/Creatinine [Mass ratio] 12.7 mg/mg Normal [facility] Comment on above: Performed By: #### C MP, TSH, LIPID #### [facility] [address] [place] [address] Dr. Luis Virgen TSHon 08-06-2021 TSH 0.924 uIU/mL Normal 0.358-3.740 [facility] Comment on above: Performed By: #### C MP, TSH, LIPID #### [facility] [address] [place], [place] [address] Dr. Luis Virgen TSH RANGE SEE BELOW Normal [facility] Comment on above: Result Comment: <0.3 4 UIU/ml HYPERTHYROID 0.34-5.60 UIU/ml EUTHYROID >5.60 UIU/ml HYPOTHYROID Performed By: #### C MP, TSH, LIPID #### [facility] [address] [address] [address] Luis Virgen Vital Signs Date Time Vital Sign Value Performing Clinician Faci lity 10-26-2024 13:29-0400 Body mass index (BMI) [Ratio] 31.33 kg/m2 Vidya DESAI Work Phone: [facility] 10-26-2024 13:29-0400 Body weight 75.21 kg Vidya DESAI Work Phone: [facility] 10-26-2024 13:29-0400 Diastolic blood pressure 70 mm[Hg] Vidya DESAI Work Phone: [facility] 10-26-2024 13:29-0400 Systolic blood pressure 114 mm[Hg] Vidya DESAI Work Phone: [facility] 09-14-2024 09:59-0400 Body mass index (BMI) [Ratio] 33.78 kg/m2 Slava Gloria DO Work Phone: [facility] 09-14-2024 09:59-0400 Body weight 81.1 kg Slava Lgoria DO Work Phone: [facility] 09-14-2024 09:59-0400 Diastolic blood pressure 70 mm[Hg] Slava Gloria DO Work Phone: [facility] 09-14-2024 09:59-0400 Systolic blood pressure 110 mm[Hg] Slava Gloria DO Work Phone: [facility] 09-09-2024 12:02-0400 Body mass index (BMI) [Ratio] 33.47 kg/m2 Slava Gloria DO Work Phone: [facility] 09-09-2024 12:02-0400 Body weight 80.34 kg Slava Gloria DO Work Phone: [facility] 09-09-2024 12:02-0400 Diastolic blood pressure 74 mm[Hg] Slava Gloria DO Work Phone: [facility] 09-09-2024 12:02-0400 Systolic blood pressure 120 mm[Hg] Slava Gloria DO Work Phone: [facility] 09-07-2024 13:02-0400 Body mass index (BMI) [Ratio] 33.78 kg/m2 Анна Valz STRIPPING MACHINE OPERATOR Work Phone: [facility] 09-07-2024 13:02-0400 Body temperature 98.01 [degF] Анна Valz STRIPPING MACHINE OPERATOR Work Phone: [facility] 09-07-2024 13:02-0400 Body weight 81.1 kg Анна Osmanhholz STRIPPING MACHINE OPERATOR Work Phone: [facility] 09-07-2024 13:02-0400 Diastolic blood pressure 78 mm[Hg] Анна Aichholz STRIPPING MACHINE OPERATOR Work Phone: [facility] 09-07-2024 13:02-0400 Heart rate 94 /min Анна Aichholz STRIPPING MACHINE OPERATOR Work Phone: [facility] 09-07-2024 13:02-0400 Respiratory rate 18 /min Анна Aichholz STRIPPING MACHINE OPERATOR Work Phone: [facility] 09-07-2024 13:02-0400 SaO2% (BldA) [Mass fraction] 98 % Анна Osmanhholz STRIPPING MACHINE OPERATOR Work Phone: [facility] 09-07-2024 13:02-0400 Systolic blood pressure 110 mm[Hg] Анна Aichholz STRIPPING MACHINE OPERATOR Work Phone: [facility] 09-02-2024 10:47-0400 Body mass index (BMI) [Ratio] 33.6 kg/m2 Slava Gloria DO Work Phone: [facility] 09-02-2024 10:47-0400 Body weight 80.65 kg Slava Gloria DO Work Phone: [facility] 09-02-2024 10:47-0400 Diastolic blood pressure 70 mm[Hg] Slava Gloria DO Work Phone: [facility] 09-02-2024 10:47-0400 Systolic blood pressure 120 mm[Hg] Slava Gloria DO Work Phone: [facility] 08-18-2024 09:37-0400 Body mass index (BMI) [Ratio] 33.07 kg/m2 Cely Carver STRIPPING MACHINE OPERATOR Work Phone: [facility] 08-18-2024 09:37-0400 Body weight 79.38 kg Cely Carver STRIPPING MACHINE OPERATOR Work Phone: [facility] 08-18-2024 09:37-0400 Diastolic blood pressure 82 mm[Hg] Cely Mehul STRIPPING MACHINE OPERATOR Work Phone: [facility] 08-18-2024 09:37-0400 Systolic blood pressure 116 mm[Hg] Cely Mehul STRIPPING MACHINE OPERATOR Work Phone: [facility] 08-04-2024 14:31-0400 Body mass index (BMI) [Ratio] 32.95 kg/m2 Slava Gloria DO Work Phone: [facility] 08-04-2024 14:31-0400 Body weight 79.11 kg Slava Gloria DO Work Phone: [facility] 08-04-2024 14:31-0400 Diastolic blood pressure 76 mm[Hg] Slava Gloria DO Work Phone: [facility] 08-04-2024 14:31-0400 Systolic blood pressure 120 mm[Hg] Slava Gloria DO Work Phone: [facility] 07-21-2024 14:30-0400 Body mass index (BMI) [Ratio] 33.14 kg/m2 Vidya Jackson PA Work Phone: [facility] 07-21-2024 14:30-0400 Body weight 79.56 kg Vidya Coco PA Work Phone: [facility] 07-21-2024 14:30-0400 Diastolic blood pressure 74 mm[Hg] Vidya Salmeroney PA Work Phone: [facility] 07-21-2024 14:30-0400 Systolic blood pressure 110 mm[Hg] Vidya Salmeroney PA Work Phone: [facility] 07-06-2024 14:09-0400 Body mass index (BMI) [Ratio] 32.69 kg/m2 Slava Gloria DO Work Phone: [facility] 07-06-2024 14:09-0400 Body weight 78.47 kg Slava Gloria DO Work Phone: [facility] 07-06-2024 14:09-0400 Diastolic blood pressure 72 mm[Hg] Slava Gloria DO Work Phone: [facility] 07-06-2024 14:09-0400 Systolic blood pressure 118 mm[Hg] Slava Gloria DO Work Phone: [facility] 06-16-2024 14:05-0400 Body mass index (BMI) [Ratio] 32.12 kg/m2 Cely Mehul STRIPPING MACHINE OPERATOR Work Phone: [facility] 06-16-2024 14:05-0400 Body weight 77.11 kg Cely Mehul STRIPPING MACHINE OPERATOR Work Phone: [facility] 06-16-2024 14:05-0400 Diastolic blood pressure 70 mm[Hg] Cely Mehul STRIPPING MACHINE OPERATOR Work Phone: [facility] 06-16-2024 14:05-0400 Systolic blood pressure 114 mm[Hg] Cely Mehul STRIPPING MACHINE OPERATOR Work Phone: [facility] 04-07-2024 [...] kg/m2 Slava Gloria DO Work Phone: [facility] 03-10-2024 14:45-0500 Body weight 73.54 kg Slava Gloria DO Work Phone: [facility] 03-10-2024 14:45-0500 Diastolic blood pressure 66 mm[Hg] Slvaa Gloria DO Work Phone: [facility] 03-10-2024 14:45-0500 Systolic blood pressure 110 mm[Hg] Slava Gloria DO Work Phone: [facility] 02-11-2024 10:34-0500 Body mass index (BMI) [Ratio] 30.69 kg/m2 Nom Nurse [facility] 02-11-2024 10:34-0500 Body weight 73.66 kg Nom Nurse [facility] 02-11-2024 10:34-0500 Diastolic blood pressure 77 mm[Hg] [facility] Nurse [facility] 02-11-2024 10:34-0500 Systolic blood pressure 110 mm[Hg] [facility] Nurse [facility] 12-10-2023 13:12-0400 Body mass index (BMI) [Ratio] 30.76 kg/m2 Slava Gloria DO Work Phone: [facility] 12-10-2023 13:12-0400 Body weight 73.85 kg Slava Gloria DO Work Phone: [facility] 12-10-2023 13:12-0400 Diastolic blood pressure 78 mm[Hg] Slava Gloria DO Work Phone: [facility] 12-10-2023 13:12-0400 Systolic blood pressure 116 mm[Hg] Slava Gloria DO Work Phone: [facility] Encounters Encounter Date Encounter Type Care Provider Facility Start: 10-26-2024 End: 10-26-2024 ambulatory Vidya DESAI Work Phone: [facility] Start: 10-26-2024 End: 10-26-2024 Follow-up encounter Vidya DESAI Work Phone: [facility] Comment on above: 6 weeks f ollow-up ([facility]) Start: 09-15-2024 End: 09-15-2024 Clinisync Result Encounter Slava Gloria DO Work Phone: [facility] External Department Unsolicited Start: 09-15-2024 End: 09-15-2024 Clinisync Result Encounter Slava Gloria DO Work Phone: [facility] Unsolicited Start: 09-14-2024 End: 09-14-2024 Bamboo flowsheet Slava Gloria DO Work Phone: [facility] Start: 09-14-2024 End: 09-14-2024 Bamboo flowsheet Slava Gloria DO Work Phone: [facility] Start: 09-14-2024 End: 09-14-2024 Clinisync Result Encounter Slava Gloria DO Work Phone: [facility] Unsolicited Start: 09-14-2024 End: 09-14-2024 Office outpatient visit 15 minutes Slava Gloria DO Work Phone: [facility] Comment on above: 38 weeks gestation o f ([facility]); Third trimester ([facility]); Antepartum multigravida of advanced maternal age ([facility]); SGA (small for gestational age) ([facility]); History of gestational diabetes Start: 09-14-2024 End: 09-14-2024 ambulatory SLAVA GLORIA Not Available Start: 09-12-2024 End: 09-12-2024 Clinisync Result Encounter Generic External Data Provider [facility] Unsolicited Start: 09-12-2024 End: 09-12-2024 Clinisync Result Encounter Generic External Data Provider [...] 09-09-2024 ambulatory SLAVA GLORIA Not Available Start: 09-09-2024 End: 09-09-2024 Office outpatient visit 15 minutes Slava Gloria DO Work Phone: [facility] Comment on above: 37 weeks gestation o f ([facility]); Third trimester ([facility] Antepartum multigravida of advanced maternal age ([facility]); SGA (small for gestational age) ([facility]); History of gestational diabetes Start: 09-07-2024 End: 09-07-2024 Bamboo flowsheet Анна Ha STRIPPING MACHINE OPERATOR Work Phone: [facility] Start: 09-07-2024 End: 09-07-2024 Bamboo flowsheet Анна Ha STRIPPING MACHINE OPERATOR Work Phone: [facility] Start: 09-07-2024 End: 09-07-2024 Patient encounter status Анна Ha STRIPPING MACHINE OPERATOR Work Phone: [facility] Work Phone: Start: 09-07-2024 End: 09-07-2024 Periodic preventive med est patient 18-39 yrs Анна Lopessindi STRIPPING MACHINE OPERATOR Work Phone: [facility] Comment on above: Encounter for [facility] ss examination in adult (Primary Dx); Primary [...] on above: 36 weeks gestation o f ([facility]); Third trimester ([facility] [facility]); History of gestational diabetes; Antepartum multigravida of advanced maternal age ([facility] Start: 09-02-2024 End: 09-02-2024 ambulatory SLAVA GLORIA [...] Start: 08-23-2024 End: 08-23-2024 Refill Анна Leland STRIPPING MACHINE OPERATOR Work Phone: [facility] Comment on above: Primary insomnia Start: 08-18-2024 End: 08-18-2024 Bamboo flowsheet Celylucy Carver STRIPPING MACHINE OPERATOR Work Phone: [facility] Start: 08-18-2024 End: 08-18-2024 Bamboo flowsheet Cely Mehul STRIPPING MACHINE OPERATOR Work Phone: [facility] Start: 08-18-2024 End: 08-18-2024 Clinisync Result Encounter Generic External Data Provider [facility] External Department Unsolicited Start: 08-18-2024 End: 08-18-2024 Office outpatient visit 15 minutes Cely Carver STRIPPING MACHINE OPERATOR Work Phone: [facility] Comment on above: Third trimester preg eileen ([facility]); 34 weeks gestation of ([facility]) Start: 08-18-2024 End: 08-18-2024 ambulatory CELY MEHUL [...] 06-16-2024 End: 06-16-2024 Bamboo flowsheet Cely Carver STRIPPING MACHINE OPERATOR Work Phone: [facility] Start: 06-16-2024 End: 06-17-2024 Bamboo flowsheet Cely Carver STRIPPING MACHINE OPERATOR Work Phone: [facility] Start: 06-16-2024 End: 06-17-2024 External Result Encounter Slava Gloria DO Work Phone: [facility] Unsolicited Start: 06-16-2024 End: 06-16-2024 Office outpatient visit 15 minutes Cely Carver NP Work Phone: [facility] [...] OB Start: 02-27-2024 End: 02-27-2024 [facility] Start: 02-27-2024 End: 02-27-2024 Departed Referred Slava Gloria DO Work Phone: [facility] Start: 02-27-2024 End: 02-27-2024 Clinisync Result Encounter Generic External Data Provider [facility] External Department Unsolicited Start: 02-27-2024 End: 02-27-2024 Clinisync Result Encounter Generic External Data Provider [facility] External Department Unsolicited Start: 02-25-2024 End: 02-26-2024 Refill Анна Ha STRIPPING MACHINE OPERATOR Work Phone: [facility] Comment on [...] Department Unsolicited Start: 12-10-2023 End: 12-10-2023 ambulatory SLAVAOsman CASTRO Not Available Start: 12-10-2023 End: 12-10-2023 Patient encounter procedure Slava Gloria DO Work Phone: [facility] Work Phone: Start: 12-10-2023 End: 12-10-2023 Periodic preventive med est patient 18-39 yrs Slava Gloria DO Work Phone: [facility] Comment on above: Well woman exam with routine gynecological exam; Missed menses Start: 09-01-2023 Patient encounter status Slava Mcclellando DO Work Phone: [facility] Start: 06-30-2023 End: 06-30-2023 ambulatory MD Dar Brody Work Phone: [facility] Work Phone: Start: 06-30-2023 End: 06-30-2023 Departed Referred MD Dar Brody Work Phone: [facility] Start: 02-20-2022 End: 02-20-2022 ambulatory MARLYN HA Facility:[facility]1 Start: 11-06-2021 End: 11-06-[address] SLAVA CASTRO Facility:[facility] Start: 08-20-2021 End: 08-20-2021 ambulatory MARLYN HA Facility:[facility] Start: 08-06-2021 End: 08-07-2021 ambulatory MARLYN HA Facility:[facility] Procedures Date Procedure Procedure Detail Performing Clinician Start: 09-15-2024 ALL CBC WITH AUTO DIFF Slava Gloria DO Work Phone: Start: 09-14-2024 TBH UA (CLEAN/CATCH) PILOT SUPERVISOR/MICRO IF IND. Slava Gloria DO Work Phone: Start: 09-14-2024 Urnls dip stick/tabl et rgnt non-auto w/o micrscp Slava Gloria DO Work Phone: Start: 09-12-2024 US OB BPP W NON-STRESS Generic External Data Provider Start: 09-11-2024 US OB BPP W NON-STRESS Generic External Data Provider Start: 09-09-2024 Urnls dip stick/tabl et rgnt non-auto w/o micrscp Slava Gloria DO Work Phone: Start: 09-09-2024 OB BPP W NON-STRESS Generic [...] ALL CBC WITH AUTO DIFF Cely Carver STRIPPING MACHINE OPERATOR Work Phone: Start: 06-16-2024 RECURRENT VAGINITIS (HTRX) Slava Gloria DO Work Phone: Start: 06-16-2024 Urnls dip stick/tabl et rgnt non-auto w/o micrscp Cely Carver STRIPPING MACHINE OPERATOR Work Phone: Start: 04-10-2024 GLUCOSE 1 HOUR Vidya brewer PA Work Phone: Start: 04-07-2024 Urnls dip stick/tabl et rgnt non-auto w/o micrscp Vidya Jackson PA Work Phone: Start: 03-10-2024 Urnls dip stick/tabl [...] Urine test visual color cmprsn meths Slava Castro DO Work Phone: Start: 12-10-2023 IGP,APTIMA HPV,AGE GDLN Slava Castro DO Work Phone: Start: 12-10-2023 Microscopic observat ion [Identifier] in Cervix by Cyto stain Cely Carver STRIPPING MACHINE OPERATOR Work Phone: Start: 12-10-2023 Cytp cerv/vag auto t hin layer prep mnl screen Slava Castro DO Work Phone: Start: 11-25-2022 Microscopic observat ion [Identifier] in Cervix by Cyto stain Slava Castro DO Work Phone: Plan of Treatment Date Care Activity Detail Author Start: 12-09-2028 Screening for malign ant neoplasm of cervix [facility] Start: 11-25-2025 Screening for malign ant neoplasm of cervix [facility] Start: 12-15-2024 End: 12-15-2024 Patient encounter procedure [facility] Start: 10-26-2024 End: 10-26-2024 ambulatory 10/26/2024 1:20 PM EDT [facility] [address] [place] [phone] Vidya Jackson PA [address] [place] [address] [facility] Start: 09-14-2024 End: 09-14-2024 Patient encounter procedure [facility] Comment on above: Arrived Start: 09-09-2024 End: 09-09-2024 Patient encounter procedure 09/09/2024 11:50 AM EDT Routine [facility] [address] [place] [phone] Slava Castro DO [address] [place] [address] [facility] Start: 09-07-2024 End: 09-07-2024 Patient encounter procedure 09/07/2024 1:00 PM EDT Office Visit [facility] [address] [place] [address] Анна Ha, VÍCTOR [address] [place] [address] [facility] Start: 09-02-2024 End: 09-02-2025 CULTURE, GROUP B STREP WITH SUSCEPTIBLITY CULTURE, GROUP B STREP WITH SUSCEPTIBLITY Lab Routine Third trimester ([facility]) Expected: 09/02/2024, Expires: 09/02/2025 [facility] Work Phone: Comment on above: Expected: 09/02/2024 , Expires: 09/02/2025 Start: 09-02-2024 End: 09-02-2024 Patient encounter procedure [facility] Comment on above: Arrived Start: 08-18-2024 End: 08-18-2024 Patient encounter procedure [facility] Comment on above: Arrived Start: 08-04-2024 End: 08-04-2024 Patient encounter procedure 08/04/2024 2:20 PM EDT Routine [facility] [address] [place] [phone] Slava Castro DO [address] [place], [place] [id number] [facility] Start: 07-21-2024 End: 07-21-2024 Patient encounter procedure 07/21/2024 2:20 PM EDT Routine [facility] [address] [place] [address] Vidya Jackson PA [address] [place], [place] [id number] [facility] Start: 07-21-2024 End: 01-21-2025 US biophysical profile w non stress test US biophysical profile w non stress test Imaging Routine History of gestational diabetes Expected: 07/21/2024 (Approximate), Expires: 01/21/2025 [facility] Work Phone: Comment on above: Expected: 07/21/2024 (Approximate), Expires: 01/21/2025 Start: 07-21-2024 End: 11-21-2024 US for US OB follow up transabdominal approach Imaging Routine History of gestational diabetes Expected: 07/21/2024, Expires: 11/21/2024 [facility] Comment on above: Expected: 07/21/2024 , Expires: 11/21/2024 Start: 07-06-2024 End: 07-06-2025 Measurement of glucose 1 hour after glucose challenge for glucose tolerance test Glucose tolerance, 1 hour Lab Routine Diabetes mellitus screening Expected: 07/06/2024 (Approximate), Expires: 07/06/2025 [facility] Work Phone: Comment on above: Expected: 07/06/2024 (Approximate), Expires: 07/06/2025 Start: 07-06-2024 End: 11-06-2024 US for US OB follow up transabdominal approach Imaging Routine SGA (small for gestational age) Expected: 07/06/2024, Expires: 11/06/2024 [facility] Comment on above: Expected: 07/06/2024 , Expires: 11/06/2024 Start: 07-06-2024 End: 07-06-2024 Patient encounter procedure 07/06/2024 1:50 PM EDT Routine [facility] [address] [place] [address] Slava Castro DO [address] [place] [address] [facility] Start: 07-06-2024 End: 07-06-2024 Professional / ancillary services management 07/06/2024 1:30 PM EDT Ancillary Procedure [facility] [address] [place] [phone] [facility] Start: 06-16-2024 End: 06-16-2025 [...] mellitus screening Expected: 06/16/2024 (Approximate), Expires: 06/16/2025 [facility] Comment on above: Expected: 06/16/2024 (Approximate), Expires: 06/16/2025 Start: 06-16-2024 End: 10-16-2024 US for US OB follow up transabdominal approach Imaging Routine Antepartum multigravida of advanced maternal age Expected: 06/16/2024, Expires: 10/16/2024 [facility] Work Phone: Comment on above: Expected: 06/16/2024 , Expires: 10/16/2024 Start: 06-16-2024 End: 06-16-2024 Patient encounter procedure 06/16/2024 1:20 PM EDT Routine [facility] [address] [place] [phone] Cely Carver, STRIPPING MACHINE OPERATOR [address] [place] [phone] Arrived [facility] Comment on above: Arrived Start: 05-10-2024 End: 05-10-2024 Patient encounter procedure 05/10/2024 2:40 PM EDT Routine [facility] [address] [place] [address] Slava Castro DO [address] [place], [place] [id number] [facility] Start: 05-10-2024 End: 05-10-2024 Professional / ancillary services management 05/10/2024 1:30 PM EDT Ancillary Procedure [facility] [address] [place] [address] [facility] Start: 04-07-2024 End: 04-07-2024 Patient encounter procedure [facility] Comment on above: Arrived Start: 04-07-2024 [...] for anatomic survey Expected: 04/07/2024, Expires: 04/07/2025 [facility] Comment on above: Expected: 04/07/2024 , Expires: 04/07/2025 Start: 03-10-2024 End: 03-10-2024 Patient encounter procedure 03/10/2024 2:20 PM EST Routine [facility] [address] [place] [address] Slava Castro, [address] [place] [address] [facility] Start: 03-02-2024 End: 03-02-2024 Patient encounter procedure 03/02/2024 9:40 AM EST Office Visit [facility] [address] [place] [phone] Анна Ha NP [address] [place] [address] [facility] Start: 02-27-2024 Urine culture [facility] Start: 02-27-2024 Bacteria identified in Urine by Culture Urine Culture [facility] Start: 02-11-2024 End: 02-10-2025 ABO/Rh ABO/Rh Lab Routine Missed menses , unspecified gestational age Expected: 02/11/2024 (Approximate), Expires: 02/10/2025 [facility] Comment on above: Expected: 02/11/2024 (Approximate), Expires: 02/10/2025 Start: 02-11-2024 End: 02-10-2025 Blood type and Indirect antibody screen panel - Blood Type and screen Lab Routine Missed menses , unspecified gestational age Expected: 02/11/2024 (Approximate), Expires: 02/10/2025 [facility] Work Phone: Comment on above: Expected: 02/11/2024 (Approximate), Expires: 02/10/2025 Start: 02-11-2024 End: 02-10-2025 Drugs of abuse panel - Urine by Screen method Rapid drug screen, urine Lab Routine , unspecified gestational age Encounter for supervision of normal first in first trimester Expected: 02/11/2024 (Approximate), Expires: 02/10/2025 [facility] Comment on above: Expected: 02/11/2024 (Approximate), Expires: 02/10/2025 Start: 02-11-2024 End: 02-10-2025 US Pelvis transvaginal US OB transvaginal Imaging Routine Missed menses Expected: 02/11/2024 (Approximate), Expires: 02/10/2025 [facility] Comment on above: Expected: 02/11/2024 (Approximate), Expires: 02/10/2025 Start: 02-11-2024 End: 02-11-2024 ambulatory 02/11/2024 10:00 AM EST Initial [facility] [address] [place] [address] [place] [address] [facility] Start: 02-11-2024 End: 02-11-2024 Professional / ancillary services management 02/11/2024 9:30 AM EST Ancillary Procedure [facility] [address] [place] [address] [facility] Start: 2018 Screening for malign [...] preservative free Slava Gloria DO Work Phone: [facility] Payers Date Payer Category Payer Self-pay [id number] 2023 [facility] Care [facility] [place] [employer] [id number] 2023 Private Health Insurance [id number] 2022 Medicaid (Managed Care) [employer] [id number] 1988 Unknown [id number] 2.16840.1.212540.3.579. 2.593 1988 Unknown [id number] 2.16840.1.055203.3.579. 2.593 1988 Unknown [id number] 2.16840.1.839870.3.579. 2.593 1988 Unknown [id number] 2.16840.1.568094.3.579. 2.593 1988 Unknown [id number] 2.16840.1.724977.3.579. 2.1259 1988 Unknown [id number] 2.16840.1.781871.3.579. 2.1259 1988 Unknown [id number] 2.16840.1.359450.3.579. 2.1259 1988 Unknown [id number] 2.16840.1.344455.3.579. 2.1259 1988 Unknown [id number] 2.16840.1.466814.3.579. 2.1259 1988 Unknown [id number] 2.16840.1.637473.3.579. 2.9 1988 Unknown [id number] 2.16.840.1.211785.3.579. 2.1258 1988 Unknown [id number] 2.16.840.1.651085.3.579. 2.1258 1988 Unknown [id number] 2.16.840.1.718139.3.579. 2.1258 1988 Unknown [id number] 2.16840.1.851534.3.579. 2.1258 1988 Unknown [id number] 2.840.1.209134.3.579. 2.1258 1988 Unknown [id number] 2.16840.1.664415.3.579. 2.1258 1988 Unknown [id number] 2.840.1.920480.3.579. 2.1258 1988 Unknown [id number] 2.840.1.361384.3.579. 2.1258 1988 Unknown [id number] 2.840.1.006921.3.579. 2.1258 1988 Unknown [id number] 2.840.1.841806.3.579. 2.1258 1988 Unknown [id number] 2.840.1.385400.3.579. 2.1258 1959 Unknown [id number] Private Health Insurance [employer] [id number] Unknown [id number] 2.840.1.908053.3.579. 2.531 Unknown [id number] 2.840.1.263436.3.579. 2.531 Social History Date Type Detail Facility Start: 03-05-2019 End: 03-05-2019 Tobacco smoking status OKIS Never smoked tobacco (finding) [facility] Start: 1990 Sex Assigned At Female [facility] Start: 10-30-2022 Tobacco smoking status NHIS Ex-smoker [facility] End: 02-24-2014 History of tobacco use Current smoker [facility] End: 02-24-2014 History of tobacco use Cigarette Smoker [facility] Start: 10-30-2022 Tobacco use and exposure Smokeless tobacco non-user [facility] Start: 12-10-2023 End: 10-26-2024 Alcoholic beverage intake Lifetime non-drinker (finding) [facility] Start: 05-19-2023 End: 08-31-2024 History of Social function [facility] Start: 05-19-2023 End: 08-31-2024 Social connection and isolation panel [facility] Do you belong to any clubs or organizations such as anglican groups, unions, fraternal [...] [facility] Start: 02-28-2024 Sex Female (finding) [facility] Do you feel stress - tense, restless, nervous, or anxious, or unable to sleep at night because your mind is troubled all the time - these days [OSQ] To some extent [facility] Goals Date Patient Goal Desired Activity /State Personal health goal Functional Status Date Assessment Result Facility 09-16-2024 Patient Health Quest ionnaire 2 item (PHQ-2) [Reported] [facility] Clinical Notes 12-10-2023 to 10-26-2024 GISELLE Cramer - 10/26/2024 1:20 PM Fred Gilbert, SUMIT - 09/14/2024 10:00 AM Sabrina Ferguson LPN - 09/09/2024 11:50 AM Shanthi Ha NP - 09/07/2024 1:24 PM EDT Note Date & Type Note Facility 10-26-2024 History of Present illness Narrative Reason for Appointment: Patient ID: Shreya Marshall is a 34 y.o. female who presents for Care Patient presents today for Post Follow Up appointment. MEDICATIONS Current Outpatient Medications Medication Instructions aspirin 81 mg, Daily norethindrone (MICRONOR) 0.35 mg, Oral, Daily, Take 1 tablet by mouth daily omeprazole (PRILOSEC) 20 mg, Oral, Daily before [...] Types: Cigarettes Quit date: 2014 Years since quittin.6 Smokeless tobacco: Never Tobacco comments: Ex-moderate cigarette [...] reviewed. Vitals: Estimated body mass index is 31.33 kg/m as calculated from the following: Height as of 24: 5' 1 . Weight as of this encounter: 165 lb 12.8 oz. BP: 114/70 Patient's last menstrual period was 12/11/2023. ASSESSMENT & PLAN ICD-10-CM 1. 6 weeks follow-up ([facility]) Z39.2 norethindrone (Micronor) 0.35 MG tablet Post Follow Up: Patient is doing well. Patient presents today for 6 week visit. Patient is s/p Vaginal delivery. Patient states depression but denies suicidal and homicidal ideations. All options were discussed with the patient regarding control and patient desires oral contraception . Follow Up: Patient is to return for annual unless needed otherwise. Documented by GISELLE Cramer on behalf of: GISELLE Cramer documented in this encounter [facility] 09-14-2024 History of Present illness Narrative Reason for [...] nursing note reviewed. Exam conducted with a senior advocate present. Vitals: Estimated body mass index is 33.78 kg/m as calculated from the following: Height as of 24: 5' 1 . Weight as of this encounter: 178 lb 12.8 oz. BP: 110/70 Patient's last menstrual period was 12/11/2023. ASSESSMENT & PLAN ICD-10-CM 1. 38 weeks gestation of ([facility]) Z3A.38 POCT urinalysis dipstick manually resulted 2. Third trimester ([facility]) Z34.93 POCT urinalysis dipstick manually resulted 3. Antepartum multigravida of advanced maternal age ([facility]) O09.529 4. SGA (small for gestational age) ([facility]) P05.10 5. History of gestational diabetes Z86.32 Return OB: Patient presents today for a routine obstetrics appointment. Patient is currently 38w4d . Patient states she is doing well but has complaints of being tired due to current . Patient has verbalizes frequent movement. labor precautions was discussed/given and patient was instructed to perform kick counts three times a day.Pt having contractions consistently pt being sent over to [facility]. Pt voiced understanding Orders Placed This Encounter Procedures POCT urinalysis dipstick manually resulted Follow Up: Patient is to return to office in 1 week for routine OB appointment. Documented by Isatu Gilbert LPN on behalf of: Slava Castro DO documented in this encounter [facility] 09-09-2024 History of Present illness Narrative Reason for [...] nursing note reviewed. Exam conducted with a senior advocate present. Vitals: Estimated body mass index is 33.47 kg/m as calculated from the following: Height as of 24: 5' 1 . Weight as of this encounter: 177 lb 1.9 oz. BP: 120/74 Patient's last menstrual period was 12/11/2023. ASSESSMENT & PLAN ICD-10-CM 1. 37 weeks gestation of ([facility]) Z3A.37 POCT urinalysis dipstick manually resulted 2. Third trimester ([facility]) Z34.93 POCT urinalysis dipstick manually resulted 3. Antepartum multigravida of advanced maternal age ([facility]) O09.529 4. SGA (small for gestational age) ([facility]) P05.10 5. History of gestational diabetes Z86.32 Patient presents today for a routine obstetrics appointment. Patient is currently 37w6d with a Estimated Date of Delivery: 09/24/24. Patient to return to clinic accordingly for routine OB care. Documented by Ramandeep Ferguson LPN. 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 Exam conducted with a senior advocate present. Vitals: Estimated body mass index is 33.6 kg/m as calculated from the following: Height as of 09/01/23: 5' 1 . Weight as of this encounter: 177 lb 12.8 oz. BP: 120/70 Patient's last menstrual period was 12/11/2023. ASSESSMENT & PLAN ICD-10-CM 1. 36 weeks gestation of ([facility]) Z3A.36 POCT urinalysis dipstick manually resulted 2. Third trimester ([facility]) Z34.93 POCT urinalysis dipstick manually resulted CULTURE, GROUP B STREP WITH SUSCEPTIBLITY CULTURE, GROUP B STREP WITH SUSCEPTIBLITY 3. History of gestational diabetes Z86.32 4. Antepartum multigravida of advanced maternal age ([facility]) O09.529 Patient is doing well but [...] in this encounter [facility] 08-18-2024 History of Present illness Narrative Reason [...] nursing note reviewed. Exam conducted with a senior advocate present. Vitals: Estimated body mass index is 33.07 kg/m as calculated from the following: Height as of 09/01/23: 5' 1 . Weight as of this encounter: 175 lb. BP: 116/82 Patient's last menstrual period was 12/11/2023. ASSESSMENT & PLAN ICD-10-CM 1. Third trimester ([facility]) Z34.93 2. 34 weeks gestation of ([facility]) Z3A.34 Return OB: Patient presents today [...] for wellness examination in adult 09/01/2023 Depression ([facility]) 09/01/2023 Resolved Ambulatory Problems Diagnosis Date Noted Major depressive disorder, single episode, mild (HCC) (CMS/[facility]) 09/01/2023 Past Medical History: Diagnosis Date Abnormal Pap smear of cervix 2009 Contraception management Current mild episode of major depressive disorder without prior episode (HCC) (CMS/[facility]) Degenerative joint disease of spine [...] 2012 Overweight (BMI 25.0-29.9) SVT (supraventricular tachycardia) (CMS/[facility]) Torn meniscus Social History Tobacco [...] nursing note reviewed. Exam conducted with a senior advocate present. Vitals: Estimated body mass index is [...] for wellness examination in adult 09/01/2023 Depression ([facility]) 09/01/2023 Resolved Ambulatory Problems Diagnosis Date Noted Major depressive disorder, single episode, mild (HCC) (CMS/[facility]) 09/01/2023 Past Medical History: Diagnosis Date Abnormal Pap smear of cervix 2009 Contraception management Current mild episode of major depressive disorder without prior episode (HCC) (CMS/[facility]) Degenerative joint disease of spine Encounter for IUD removal History of abnormal cervical Pap smear LGSIL Pap smear of vagina 2012 Overweight (BMI 25.0-29.9) SVT (supraventricular tachycardia) (CMS/[facility]) Torn meniscus HISTORY PAST MEDICAL HISTORY SOCIAL HISTORY Past Medical History: Diagnosis Date Abnormal Pap smear of cervix 2009 Contraception management Current mild episode of major depressive disorder without prior episode (HCC) (CMS/[facility]) 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 Artis needs to stop with preg. Cat. C LGSIL Pap smear of vagina 2012 Overweight (BMI 25.0-29.9) SVT (supraventricular tachycardia) (CMS/[facility]) Torn meniscus Social History Tobacco [...] nursing note reviewed. Exam conducted with a senior advocate present. Vitals: Estimated body mass index is [...] for wellness examination in adult 09/01/2023 Depression ([facility]) 09/01/2023 Resolved Ambulatory Problems Diagnosis Date Noted [...] 2012 Overweight (BMI 25.0-29.9) SVT (supraventricular tachycardia) ([facility] [facility]) Torn meniscus Social History Tobacco [...] nursing note reviewed. Exam conducted with a senior advocate present. Vitals: Estimated body mass index is [...] nursing note reviewed. Exam conducted with a senior advocate present. Vitals: Estimated body mass index is [...] or undercooked meat, and stay away from [facility]. Patient has been consulted regarding [...] or undercooked meat, and stay away from [facility]. Patient has also been advised to not change litter boxes and eat 6 small meals a day. Patient has been consulted regarding the do's and don'ts of . Patient was given labs and all questions and concerns were answered. Patient was given [place] to have completed at 10 weeks. Follow [...] Diagnosis Date Noted Insomnia 02/27/2023 Supraventricular tachycardia ([facility]/HCC) 12/09/2019 Left wrist pain 05/03/2023 Obesity (BMI 30-39.9) 05/26/2023 Encounter for wellness examination in adult 09/01/2023 Depression ([facility]) 09/01/2023 Resolved Ambulatory Problems Diagnosis Date Noted Major depressive disorder, single episode, mild (HCC) (CMS/[facility]) 09/01/2023 Past Medical History: Diagnosis Date Abnormal Pap smear of cervix 2009 Contraception management Current mild episode of major depressive disorder without prior episode (HCC) ([facility]) Degenerative joint disease of spine Encounter for IUD removal History of abnormal cervical Pap smear LGSIL Pap smear of vagina 2012 Overweight (BMI 25.0-29.9) SVT (supraventricular tachycardia) (CMS/[facility]) Torn meniscus HISTORY PAST MEDICAL HISTORY SOCIAL HISTORY Past Medical History: Diagnosis Date Abnormal Pap smear of cervix 2009 Contraception management Current mild episode of major depressive disorder without prior episode (HCC) ([facility]) 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 Artis needs to stop with preg. Cat. C LGSIL Pap smear of vagina 2012 Overweight (BMI 25.0-29.9) SVT (supraventricular tachycardia) (CMS/[facility]) Torn meniscus Social History Tobacco [...] nursing note reviewed. Exam conducted with a senior advocate present. Vitals: Estimated body mass index is [...] Evaluation note No assessment inform ation available [facility] Work Phone: Evaluation note Diagnosis [...] diabetes mellitus SGA (small for gestational age) Ybsxn-edx-bktit without mention of malnutrition, unspecified (weight) documented [...] Major depressive disorder, single episode, mild (HCC) ([facility]) Major depressive disorder, single episode, mild Primary insomnia Persistent disorder of initiating or maintaining sleep Obesity (BMI 30-39.9) Depression, unspecified depression type ([facility]) 32 weeks gestation of Third trimester state, [...] 30-39.9) Depression, unspecified depression type Third trimester ([facility]) state, incidental 34 weeks gestation of ([facility]) [facility] [...] unspecified depression type 36 weeks gestation of ([facility]) Third trimester ([facility]) state, incidental History of gestational diabetes Personal history of other genital system and obstetric disorders Antepartum multigravida of advanced maternal age ([facility]) documented [facility] [...] Persistent disorder of initiating or maintaining sleep 37 weeks gestation of ([facility]) Third trimester ([facility]) state, incidental Antepartum multigravida of advanced maternal age ([facility]) SGA (small for gestational age) ([facility]) Ugdzh-wrx-dkaqg without mention of malnutrition, unspecified (weight) History [...] Persistent disorder of initiating or maintaining sleep 38 weeks gestation of ([facility]) Third trimester ([facility]) state, incidental Antepartum multigravida of advanced maternal age ([facility]) SGA (small for gestational age) ([facility]) Kcqqc-asf-twejv without mention of malnutrition, unspecified (weight) History [...] Persistent disorder of initiating or maintaining sleep 6 weeks follow-up ([facility]) documented in this encounter [facility] [...] CREATED AUTHOR AUTHOR'S ORGANIZ ATION 03/06/2024 [facility] DATE CREATED AUTHOR AUTHOR'S ORGANIZ ATION 10/27/2024 [facility] EPIC Care Teams (unrecognized sec tion and content) Team Status: Active Member Role Status Dates Dar Brody MD Primary Care Provider Active Team Status: Inactive Member Role Status Dates Dar Brody MD Primary Care Provider Active Start: June 30, 2023 End: June 30, 2023 Slava Castro Attending Provider Active Start: Viky brewer 2023 End: June 30, 2023 Account Development Associate Relationship Specialty Start Date End Date Parag Bradley MD [address] [place] [phone] PCP - General Family Medicine 08/14/22 Анна Ha NP [address] [place] [address] PCP - [facility] 08/25/23 Account Development Associate Relationship Specialty Start Date End Date Parag Bradley MD [address] [place] [address] PCP - General Family [facility] 08/14/22 Анна Ha NP [address] [place] [address] PCP - [facility] 08/25/23 Account Development Associate Relationship Specialty Start Date End Date Parag Bradley MD [address] [place] [address] PCP - [facility] 08/14/22 Анна Ha NP [address] [place] [address] PCP [facility] 08/25/23 Account Development Associate Relationship Specialty Start Date End Date Parag Bradley MD [address] [place] [phone] PCP - [facility] 08/14/22 Анна Ha NP [address] [place] [address] PCP - [facility] 08/25/23 Account Development Associate Relationship Specialty Start Date End Date Parag Bradley MD [address] [place] [phone] PCP - [facility] 08/14/22 Анна Ha NP [address] [place] [address] [facility] 08/25/23 Account Development Associate Relationship Specialty Start Date End Date Parag Bradley MD [address] [place] [address] PCP [facility] 08/14/22 Анна Ha NP [address] [place] [address] [facility] 08/25/23 Team Status: Inactive Member Role Status Dates Slava Castro DO Attending Provider Active Start : February 27, 2024 End: February 27, 2024 Account Development Associate Relationship Specialty Start Date End Date Parag Bradley MD [address] [place] [address] PCP - [facility] 08/14/22 Анна Ha NP [address] [place] [address] [facility] 08/25/23 Account Development Associate Relationship Specialty Start Date End Date Parag Bradley MD [address] [place] [address] [facility] 08/14/22 Анна Ha NP [address] [place] [address] [facility] 08/25/23 Account Development Associate Relationship Specialty Start Date End Date Parag Bradley MD [address] [place] [address] PCP [facility] 08/14/22 Анна Ha NP [address] [place] [address] [facility] 08/25/23 Account Development Associate Relationship Specialty Start Date End Date Parag Bradley MD [address] [place] [address] PCP - General Family [facility] 08/14/22 Анна Ha NP [address] [place] [address] PCP - [facility] 08/25/23 Account Development Associate Relationship Specialty Start Date End Date Parag Bradley MD [address] [place] [address] PCP - [facility] 08/14/22 Анна Ha NP [address] [place] [address] [facility] 08/25/23 Account Development Associate Relationship Specialty Start Date End Date Parag Bradley MD [address] [place] [address] PCP - [facility] 08/14/22 Анна Ha NP [address] [place] [address] [facility] 08/25/23 Account Development Associate Relationship Specialty Start Date End Date Parag Bradley MD [address] [place] [address] PCP - [facility] 08/14/22 Анна Ha NP [address] [place] [address] PCP [facility] 08/25/23 Account Development Associate Relationship Specialty Start Date End Date Parag Bradley MD [address] [place] [address] [facility] 08/14/22 Анна Ha NP [address] [place] [address] [facility] 08/25/23 Account Development Associate Relationship Specialty Start Date End Date Parag Bradley MD [address] [place] [address] [facility] 08/14/22 Анна Ha NP [address] [place] [address] [facility] 08/25/23 Account Development Associate Relationship Specialty Start Date End Date Parag Bradley MD [facility] 08/14/22 Анна Ha NP [address] [place] [address] [facility] 08/25/23 Goals (unrecognized section and content) Goals may be documented in a n alternate sectionGoals may be documented in an alternate section Reason for Visit (unrecogniz ed section and content) Reason Comments Well Women Visit Reason Comments Amenorrhea Reason Onset Date Comments Med Refill 02/25/2024 Reason Comments Routine Visit Reason Comments Med Refill Reason Comments Annual Exam Reason Comments Care FOR RECORDS PERTAINING TO PATIENTS WHO ARE [...] BE BASED ON THE PRIMARY CLINICAL RECORDS. [facility] [employer] [facility]. provides no warranty or guarantee of the accuracy or completeness of information in this document.
--- NOTE | 2024-11-08 13:38 | PC.NURSE ---
Shreya and 8 week old Bird arrive for follow up care post oral revision. had tongue and upper lip releases per pediatric dentist. Shreya relates noted immediate improvement post procedure. Mom reports doing stretch exercises more frequently than prescribed and states she believes baby healing well. Infant weight obtained, BW 5-12, today's weight 8-11. Mom pleased with gain. Upper lip healing well, as well as under tongue. does not fuss with exam. Mom shown suck exercises to strengthen suck, latch, and tongue movement. Infant responds favorably. noted to have consistent head tilt to left shoulder. Left side of face/ forehead slightly asymmetrical, left shoulder tight and slightly higher. Mom states has noticed left head tilt and tries to encourage to turn head to right side. Discussed chiropractic intervention. Given referral information. Will discuss with and decide if will work for them. No further questions or concerns at this time. Will follow up as needed. Leaves ambulatory for home.
== END 2024-11-08 13:52 | disposition home or self-care (01) ==
LOC: FBCO 08:15
PROVIDERS: PCP Nurse Practitioner; Visit Provider Obstetrics & Gynecology
DX: Z39.1 Encounter for care and examination of lactating mother (principal)

== ENCOUNTER 2024-12-15 20:22 | Outpatient (REF) | payer OTHER, SELFPAY ==
--- OUTSIDE RECORDS SUMMARY | 2023-12-30 07:30 | XMS_ITS ---
Author Organization [facility] Address [address] [place] [address] Care Team Providers Care Counselor Manager Name Role Phone Naida Valera Primary Care Provider REASON FOR VISIT POSS DRY SOCKET Encounters Encounter Location Date Provider Diagnosis [address] [address] 12/30/2023 Naida Valera Plan Of Treatment No Information Progress Notes * ROXANNE ROGERS DDOB: [birth year] (34 yo F)Acc No.[id number]:12/30/2023 Patient:?ROXANNE ROGERS :?Naida Valera DDSDOB:1990???Age:33 Y ???Sex:FemaleDate:4Phone:[phone]:[id number] [id number] Subjective: * Chief Complaints: * P OSS DRY SOCKET * Electronic signature of Naida Valera DDS on 12/15/2024 at 02:58 PM EDTSign off status: Pending * Provider: Elizabeth Valera DDS Date: 02/28/2023 Generated for Printing/Faxing/eTransmitting on:?12/15/2024 02:58 PM EDT
--- OUTSIDE RECORDS SUMMARY | 2024-04-05 11:45 | XMS_ITS ---
Author Organization [facility] Address [address] [place] [address] Care Team Providers Care Field Artillery Targeting Technician Name Role Phone Naida Valera Primary Care Provider REASON FOR VISIT EXT Encounters Encounter Location Date Provider Diagnosis [address] [place] [address] 04/05/2024 Naida Valera Plan Of Treatment No Information Progress Notes * ROXANNE ROGERS DDOB: 9 (34 yo F)Acc No.[id number]:04/05/2024 Patient:?ROXANNE ROGERS :?Naida Valera DDSDOB:1990???Age:33 Y ???Sex:FemaleDate:04/05/2024Phone:[phone]:[address] [facility] Subjective: * Chief Complaints: * E XT * Electronic signature of Naida Valera DDS on 12/15/2024 at 08:26 PM EDTSign off status: Pending * Provider: Elizabeth Valera DDS Date: 0 04/05/2024 Generated for Printing/Faxing/eTransmitting on:?12/15/2024 08:26 PM EDT
--- OUTSIDE RECORDS SUMMARY | 2024-04-19 09:00 | XMS_ITS ---
Author Organization [facility] Address [address] [place] [address] Care Team Providers Care Graphic Design Specialist Name Role Phone Naida Valera Primary Care Provider REASON FOR VISIT FILLING Encounters Encounter Location Date Provider Diagnosis [address] [address] 04/19/2024 Naida Valera Plan Of Treatment No Information Progress Notes * ROXANNE ROGERS DDOB: 9 (34 yo F)Acc No.[id number]:04/19/2024 Patient:?ROXANNE ROGERS :?Naida Valera DDSDOB:1990???Age:33 Y ???Sex:FemaleDate:04/19/2024Phone:[phone]:[address] [facility] Subjective: * Chief Complaints: * F ILLING * Electronic signature of Naida Valera DDS on 12/15/2024 at 08:26 PM EDTSign off status: Pending * Provider: Elizabeth Valera DDS Date: 0 04/19/2024 Generated for Printing/Faxing/eTransmitting on:?12/15/2024 08:26 PM EDT
--- OUTSIDE RECORDS SUMMARY | 2024-11-12 06:30 | XMS_ITS ---
Author Organization [facility] Address [address] [place] [address] Care Team Providers Care Hand Molder And Caster Name Role Phone Naida Valera Primary Care Provider REASON FOR VISIT FILLING Encounters Encounter Location Date Provider Diagnosis [address] [address] 11/12/2024 Naida Valera Plan Of Treatment No Information Progress Notes * ROXANNE ROGERS DDOB: 9 (34 yo F)Acc No.[id number]:11/12/2024 Patient:?ROXANNE ROGERS :?Naida Valera DDSDOB:1990???Age:34 Y ???Sex:FemaleDate:11/12/2024Phone:[phone]:[id number] [id number] Subjective: * Chief Complaints: * F ILLING * Electronic signature of Naida Valera DDS on 12/15/2024 at 02:58 PM EDTSign off status: Pending * Provider: Elizabeth Valera DDS Date: 0 11/12/2024 Generated for Printing/Faxing/eTransmitting on:?12/15/2024 02:58 PM EDT
--- OUTSIDE RECORDS SUMMARY | 2024-12-15 15:00 | XMS_ITS | Encounter Summary ---
Author Organization [facility] Address [address] [place] [address] Care Team Providers Care Jail Keeper Name Role Phone Parag Bradley MD Primary Care Provider [phone] Анна Ha NP Unavailable [phone] Reason for Visit * ReasonCommentsWell Women Visit Encounter Details DateTypeDepartmentCare Team (Latest Contact Info)Ocxchgxbpwq08/22/2025 3:00 PM EDTOffice Visit [facility] [address] [place] [address] Slava Castro DO [address] [place], [place] [phone] Well woman exam with routine gynecological exam Social History Tobacco UseTypesPacks/DayYears UsedDateSmoking Tobacco: FormerCigarettesQuit: 2015Smokeless Tobacco: Never Comments:Ex-moderate cigaret te smoker (10-19/day) Alcohol UseStandard Drinks/WeekCommentsNever0 (1 standard drink = 0.6 oz pure alcohol)Caffeine: occasionalHumiliation, Afraid, Rape, and Kick questionnaire AnswerDate RecordedWithin the last year, have you been afraid of your partner or ex-partner?No08/31/2024Within the last year, have you been humiliated or emotionally abused in other ways by your partner or ex-partner?No08/31/2024 Within the last year, have you been kicked, hit, slapped, or otherwise physically hurt by your partner or ex-partner?No08/31/2024Within the last year, have you been raped or forced to have any kind of sexual activity by your part ner or ex-partner?No08/31/2024Social Connection and Isolation PanelAnswerDate RecordedIn a typical week, how many times do you talk on the phone with family, friends, or neighbors?More than three times a week08/31/2024How often do you get together with friends or relatives?Twice a week08/31/2024How often do you attend rastafari or hinduism services?More than 4 times per year08/31/2024Do you belong to any clubs or organizations such as rastafari groups, unions, fraRootless or athletic groups, or school groups?Yes08/31/2024How often do you attend meetings of the clubs or organizations you belong to?More than 4 times per year08/31/2024 Are you , , , , never , or living with a partner?Vtqlban2008/31/2024UDIT-CAnswerDate RecordedQ1: How often do you have a drink containing alcohol?Never08/31/2024Q2: How many drinks containing alcohol do you have on a typical day when you are drinking?Patient does not drink 08/31/2024Q3: How often do you have six or more drinks on one occasion?Never 08/31/2024Overall Financial Resource Strain (CARDIA)AnswerDate RecordedHow hard is it for you to pay for the very basics like food, housing, medical care, and heating?Not very hard08/31/2024PHQ-2AnswerDate RecordedPatient Health Questionnaire-2 Rofsc516Finjordan [facility] [place] of Occupational Health - Occupational Stress QuestionnaireAnswerDate RecordedDo you feel stress - tense, restless, nervous, or anxious, or unable to sleep at night because yourmind is troubled all the time - these days?To some kjtwfy0408/31/2024Exercise Vital Sign AnswerDate RecordedOn average, how many days per week do you engage in moderate to strenuous exercise (like a brisk walk)?0 days08/31/2024On average, how many minutes do you engage in exercise at this level?0 min08/31/2024Hunger Vital Sign AnswerDate RecordedWithin the past 12 months, you worried that your food would run out before you got the money to buymore.Never true08/31/2024Within the past 12 months, the food you bought just didn't last and you didn't have money to get more.Never true08/31/2024PRAPARE - TransportationAnswerDate RecordedIn the past 12 months, has lack of transportation kept you from medical appointments or from getting medications?No08/31/2024In the past 12 months, has lack of transportation kept you from meetings, work, or from getting things needed for daily living?No08/31/2024Housing Stability Vital SignAnswerDate RecordedIn the last 12 months, was there a time when you were not able to pay the mortgage or rent on time?No05/19/2023In the last 12 months, how many places have you lived?1 05/19/2023In the last 12 months, was there a time when you did not have a steady place to sleep or slept in [facility] (including now)?No05/19/2023Housing Stability Vital SignAnswerDate RecordedIn the last 12 months, was there a time when you were not able to pay the mortgage or rent on time?No08/31/2024In the past 12 months, how many times have you moved where you were living? At any time in the past 12 months, were you homeless or living in a halfway (including now)?No08/31/2024CommentsNoSex and Gender InformationValue Date RecordedSex Assigned at BirthNot on fileLegal OxdSuvhry93/15/2023 7:11 PM EDTGender VoowbhjzYwvowr42/15/2023 7:11 PM EDTSexual OrientationNot on file documented as of this encounter Last Filed Vital Signs Vital SignReadingTime TakenCommentsBlood Hjqrzmfy962/7010 3:15 PM EDT Pulse--Temperature--Respiratory Rate--Oxygen Saturation--Inhaled Oxygen Concentration--Lwvcnb51 kg (165 lb 6.4 oz)12/15/2024 3:15 PM EDTHeight--Body Mass Index31.2507 10:37 AM EDTdocumented in this encounter Progress Notes * Ximena Carver, VÍCTOR - 12/15/2024 3:00 PM EDT Reason for Appointment: Patient ID: Shreya Marshall is a 34 y.o. female who presents for Well Women Visit Patient presents today for Annual Exam. MEDICATIONS Current Outpatient Medications Medication Instructions norethindrone (MICRONOR) 0.35 mg, Oral, Daily, Take 1 tablet by mouth daily traZODone (DESYREL) 100 mg, Oral, Nightly ALLERGIES [...] Types: Cigarettes Quit date: 2014 Years since quittin.8 Smokeless tobacco: Never Tobacco comments: Ex-moderate cigarette [...] abnormal pap smear PAP SMEAR 03/07/2014 LGSIL [place] MEDICATION MANAGEMENT Drug Therapy -SVT TONSILLECTOMY 1992 [...] nursing note reviewed. Exam conducted with a oral and maxillofacial surgery present. Vitals: Estimated body mass index is 31.25 kg/m?? as calculated from the following: Height as of 09/01/23: 5' 1 . Weight as of this encounter: 165 lb 6.4 oz. BP: 110/70 No LMP recorded. Assessment/Plan ICD-10-CM 1. Well woman exam with routine gynecological exam Z01.419 Pap Smear HPV DNA probe, amplified Annual Exam: Patient presents today for an annual exam. Patient states she is doing well and has no complaints. Pap was obtained without difficulty. Orders Placed This Encounter Procedures HPV DNA probe, amplified Follow Up: Patient is to return in one year for annual unless needed otherwise. Documented by Ximena Carver NP on behalf of: Slava Castro DO documented in this encounter Plan of Treatment DateTypeDepartmentCare Team (Latest Contact Info)Wvlesuydfvp33/26/2026 1:00 PM EDTProcedure Visit [facility] [address] [place] [address] Slava Castro DO [address] [place] [address] NameTypePriorityAssociated DiagnosesOrder SchedulePap SmearPathology and CytologyRoutine Well woman exam with routine gynecological exam Ordered: 12/15/2024HPV DNA probe, amplifiedMicrobiologyRoutine Well woman exam with routine gynecological exam Ordered: 12/15/2024documented as of this encounter Goals GoalPatient Goal TypeAssociated ProblemsRecent ProgressPatient-Stated?Author Reminders Care PlanOB RemindersNoOpen Scheduling, Backgrounddocumented as of this encounter Visit Diagnoses Diagnosis Well woman exam with routine gynecological exam Routine gynecological examination documented in this encounter Additional Health Concerns Active ProblemsNoted DateDiagnosed DateOB Uslrjsvis17/18/2024 documented as of this encounter Care Teams Team MemberRelationshipSpecialtyStart DateEnd Date Parag Bradley MD [facility] - [facility] Анна Ha NP [address] [place] [address] PCP - [facility]08/25/23documented as of this encounter
--- OUTSIDE RECORDS SUMMARY | 2024-12-15 20:26 | XMS_ITS | Encounter Summary ---
Author Organization [facility] Address [address] [place] [address] Care Team Providers Care Supply Chain Technician Name Role Phone Parag Bradley MD Primary Care Provider Анна Ha NP Unavailable [phone] Encounter Details DateTypeDepartmentCare Team (Latest Contact Info)Grbdsfxkzas07/22/2025amboo flowsheet [facility] [address] [place], [phone] Slava Castro DO [address] [place], [facility]11 Social History Tobacco UseTypesPacks/DayYears UsedDateSmoking Tobacco: FormerCigarettesQuit: [...] relatives?Twice a week08/31/2024How often do you attend mormon or amish services?More than 4 times per year08/31/2024Do you belong to any clubs or organizations such as mormon groups, unions, fraAltura Medical or athletic groups, or school groups?Yes08/31/2024How often do you attend meetings of the clubs or organizations you belong to?More than 4 times per year08/31/2024 Are you , , , , never , or living with a partner?Sklyeel2608/31/2024UDIT-CAnswerDate RecordedQ1: How often do you have a [...] and heating?Not very hard08/31/2024PHQ-2AnswerDate RecordedPatient Health Questionnaire-2 Caydg171Fin[facility] [place] of Occupational Health - Occupational Stress QuestionnaireAnswerDate RecordedDo you feel stress - tense, restless, nervous, or anxious, or unable to sleep at night because yourmind is troubled all the time - these days?To some gizijo9908/31/2024Exercise Vital Sign AnswerDate RecordedOn average, how many [...] steady place to sleep or [place])?No05/19/2023Housing Stability Vital SignAnswerDate RecordedIn the last 12 months, was there a time when you were not able to pay the mortgage or rent on time?No08/31/2024In the past 12 months, how many times have you moved where you were living? At any time in the past 12 months, were you homeless or living in a senior care (including now)?No08/31/2024CommentsNoSex and Gender InformationValue Date RecordedSex Assigned at BirthNot on fileLegal FdmExpwao48/15/2023 7:11 PM EDTGender JnevttjiUsjurw03/15/2023 7:11 PM EDTSexual OrientationNot on file documented as of this encounter Plan of Treatment DateTypeDepartmentCare Team (Latest Contact Info)Agylppysvdv31/26/2026 1:00 PM EDTProcedure Visit [facility] [address] [phone] Slava Castro DO [address] [place] [address] documented as of this encounter Goals GoalPatient Goal TypeAssociated ProblemsRecent ProgressPatient-Stated?Author Reminders Care PlanOB RemindersNoOpen Scheduling, Backgrounddocumented as of this encounter Visit Diagnoses Not on filedocumented in this encounter Additional Health Concerns Active ProblemsNoted DateDiagnosed DateOB Lpptsdjql62/18/2024 documented as of this encounter Care Teams Team MemberRelationshipSpecialtyStart DateEnd Date Parag Bradley MD [facility] - [facility] Анна Ha NP [address] [place] [address] PCP - [facility]08/25/23documented as of this encounter
--- OUTSIDE RECORDS SUMMARY | 2024-12-15 20:26 | XMS_ITS | Patient Health Record ---
Author Organization [facility] Address [address] [place] [address] Care Team Providers Care Project Superintendent Name Role Phone Moraima Naida Primary Care Provider Reason For Referral No Information Medications Medication SIG (Take, Route, Frequency, Duration) Notes Start Date End Date Status Zoloft UnknownTRAZODONEUnknownAcetaminophen Extra Strength 500 MG Tablet1 tablet as needed Orally every 6 hrs01/02/2024ctive Encounters Encounter Location Date Provider Diagnosis [address] [address] 12/25/2023 Naida Valera Cracked tooth K03 .[address] [address] 12/29/2023 Naida Valera Encounter for den mercy examination and cleaning with abnormal findings Z01.[address] [address] 01/02/2024 Naida Valera Encounter for den mercy examination and cleaning with abnormal findings Z01.21 Assessments Encounter Date Diagnosis (ICD Code) Assessment Notes Treatment Notes Treatment Clinical Notes Section Notes 12/25/2023 Cracked tooth (ICD-10 - K03.81) 12/29/2023Encounter for dental examination and cleaning with abnormal findings (ICD-10 - Z01.21)01/02/2024Encounter for dental examination and cleaning with abnormal findings (ICD-10 - Z01.21) Plan Of Treatment No Information Insurance Providers Payer Name Payer Address Payer Phone Subscriber Number Group Number Insured Name Patient Relationship to Insured Coverage Start Date Coverage End Date D[employer] [address] [address] [place] [phone] [id number] ROXANNE ROGERS Self - patient is the insured 4 Secondary [employer] [address] [address] [place] [phone] [id number], AMANDASelf - patient is the [id number] Wrap [facility] [address] [place] [id number], AMANDASelf - patient is the [id number] 2022
--- OUTSIDE RECORDS SUMMARY | 2024-12-15 20:26 | XMS_ITS | Encounter Summary ---
Author Organization [facility] Address [address] [place] [address] Care Team Providers Care Instrument Setter Name Role Phone Parag Bradley MD Primary Care Provider [phone] Анна Ha NP Unavailable [phone] Encounter Details DateTypeDepartmentCare Team (Latest Contact Info)Gkytusregkm90/15/2025Travel Social History Tobacco UseTypesPacks/DayYears UsedDateSmoking Tobacco: FormerCigarettesQuit: [...] relatives?Twice a week08/31/2024How often do you attend jew or mu-ism services?More than 4 times per year08/31/2024Do you belong to any clubs or organizations such as jew groups, unions, fraternal or athletic groups, or school groups?Yes08/31/2024How often do you attend meetings of the clubs or organizations you belong to?More than 4 times per year08/31/2024 Are you , , , , never , or living with a partner?Zrkikck5808/31/2024UDIT-CAnswerDate RecordedQ1: How often do you have a [...] and heating?Not very hard08/31/2024PHQ-2AnswerDate RecordedPatient Health Questionnaire-2 Dfftz489Fin[facility] [place] [facility] - Occupational Stress QuestionnaireAnswerDate RecordedDo you feel stress - tense, restless, nervous, or anxious, or unable to sleep at night because yourmind is troubled all the time - these days?To some tfehmx1508/31/2024Exercise Vital Sign AnswerDate RecordedOn average, how many [...] steady place to sleep or slept in ashelter (including now)?No05/19/2023Housing Stability Vital SignAnswerDate RecordedIn the last 12 months, was there a time when you were not able to pay the mortgage or rent on time?No08/31/2024In the past 12 months, how many times have you moved where you were living? At any time in the past 12 months, were you homeless or living in a prison (including now)?No08/31/2024CommentsNoSex and Gender InformationValue Date RecordedSex Assigned at BirthNot on fileLegal OxhRxffwy83/15/2023 7:11 PM EDTGender RymzfgecFmricn81/15/2023 7:11 PM EDTSexual OrientationNot on file documented as of this encounter Plan of Treatment DateTypeDepartmentCare Team (Latest Contact Info)Hfhssvdtixy44/26/2026 1:00 PM EDTProcedure Visit [facility] [address] [place] [phone] Slava Castro DO [address] [place] [address] documented as of this encounter Goals GoalPatient Goal TypeAssociated ProblemsRecent ProgressPatient-Stated?Author Reminders Care PlanOB RemindersNoOpen Scheduling, Backgrounddocumented as of this encounter Visit Diagnoses Not on filedocumented in this encounter Additional Health Concerns Active ProblemsNoted DateDiagnosed DateOB Bvmhjpxkj47/18/2024 documented as of this encounter Care Teams Team MemberRelationshipSpecialtyStart DateEnd Date Parag Bradley MD [facility] - [facility] Анна Ha NP [address] [place] [address] PCP - [facility]08/25/23documented as of this encounter
--- OUTSIDE RECORDS SUMMARY | 2024-12-15 20:26 | XMS_ITS | CCD ---
Author Organization [facility] CliniSyde Care Team Providers Care [employer] Science Teacher Name Role Phone AICHHOLZ, WEASAND TRIMMER АННА Primary Care Unavailable PAY, DR LIN Admitting Unavailable PAY, DR LIN Attending Unavailable GISELLE RESTREPO Consulting Unavailable GLORIA, DR ORDAZ Admitting Unavailable GLORIA, DR ORDAZ Attending Unavailable AICHHOLZ, WEASAND TRIMMER АННА Primary Care Unavailable GLORIA, DR ORDAZ Consulting Unavailable AICHHOLZ, WEASAND TRIMMER АННА Admitting Unavailable AICHHOLZ, WEASAND TRIMMER АННА Attending Unavailable AICHHOLZ, WEASAND TRIMMER АННА Primary Care Unavailable AICHHOLZ, WEASAND TRIMMER АННА Consulting Unavailable AICHHOLZ, WEASAND TRIMMER АННА Primary Care Unavailable DON, DR BIRD Admitting Unavailable DON, DR BIRD Attending Unavailable GISELLE RESTREPO Consulting Unavailable PHOEBE ALFARO Consulting Unavailable MD Dar Brody Primary Care Provider Slava Castro Attending Provider [phone] Parag Bradley MD Primary Care Provider [phone] Aichholange NET TRAINER, Анна Unavailable Slava Castro DO Attending Provider Mik Castroy Attending Unavailable Gloria, Slvaa Admitting Unavailable Dar Brody Primary Care Unavailable GloriaSlava Attending Unavailable Gloria, Slava Admitting Unavailable Parag Bradley MD Primary Care Provider [phone] Aichholange NET TRAINER, Анна Unavailable VIDYA JACKSON Attending Unavailable VIDYA [...] CASTRO Attending Unavailable SLAVA CASTRO Attending Unavailable Анна Ha NP Unavailable Allergies Allergy ClassificationReported Allergen(s)Allergy TypeDate of OnsetReaction(s) Facility (20 sources)OtherPropensity to adverse fwazjbhhf82-11-3899KMXZ Healthcare Medications Current Medications MedicationDrug Class(es)DatesSig (Normalized)Sig (Original)levonorgestrel 0.790726 mg/hr intrauterine system (2 sources)Progestin, Progestin-containing Intrauterine DeviceStart: 02-06-2017 Levonorgestrel (Mirena) 20 mcg/24 hr (5 years) Intrauterine Device Active 1 INSERT INTRAUTERI As Directed February 06, 2017 12:00amnaproxen 500 mg oral tablet (2 sources)Nonsteroidal Anti-inflammatory DrugStart: 90-63-4404hmnd 1 tablet by mouth twice dailyNaproxen (Naprosyn) 500 mg tablet Active 500 MG PO Twice daily March 05, 2019 12:00amnorethindrone 0.35 mg oral tablet (5 sources)Start: 10-26-2024 End: 60-27-3474mlbz 1 tablet by mouth once daily, then take 1 tablet by mouth once dailynorethindrone (Micronor) 0.35 MG tablet Indications: 6 weeks follow-up ([facility]) Take 1 tablet (0.35 mg) by mouth Daily for 28 days Take 1 tablet by mouth daily 28 tablet 11 10/26/2024 ActiveProgesterone (3 sources)ProgesteroneStart: 02-16-2024 End: 12-10-3781Angxychfzvdz Micronized (progesterone, bulk,) powder 02/16/2024 09/07/2024 Discontinued (Therapy completed)Start: 34-38-6497Cadxiyyyaxxo Micronized (progesterone, bulk,) powder 02/16/2024 ActiveProgesterone 200 MG suppository (18 sources)Start: 01-19-2024 End: 81-17-2418Bshvdrkdjwwm 200 MG suppository Indications: History of miscarriage Insert 200 mg into the vagina at bedtime Insert suppository vaginally every night at bedtime until 12 weeks gestation 30 suppository 2 01/19/2024 04/18/2024 ActivetraZODone hydrochloride 100 mg oral tablet (20 sources)Serotonin Reuptake InhibitorStart: 02-26-2024 End: 12-36-4233bzpt 1 tablet by mouth at bedtimetraZODone (Desyrel) 100 MG tablet Indications: Primary insomnia Take 1 tablet (100 mg) by mouth at bedtime 30 tablet 2 08/23/2024 ActiveStart: 37-69-3327wuzr 1 tablet by mouth at bedtime traZODone (Desyrel) 100 MG tablet Indications: Primary insomnia Take 1 tablet (100 mg) by mouth at bedtime 30 tablet 2 09/02/2023 Active Completed/Discontinued Medications MedicationDrug Class(es)DatesSig (Normalized)Sig (Original)aspirin 81 mg delayed release oral tablet (20 sources)Platelet Aggregation Inhibitor, Nonsteroidal Anti-inflammatory Drug End: 26-08-8089flte 1 tablet by mouth once dailyaspirin 81 MG EC tablet Take 81 mg by mouth Daily 12/15/2024 Discontinuedomeprazole 20 mg delayed release oral capsule (20 sources)Proton Pump InhibitorStart: 05-10-2024 End: 61-80-8187ltxp 1 capsule by mouth once before mealtimeomeprazole (PriLOSEC) [address] capsule Indications: Heartburn during in second trimester ( HHS-HCC) Take 1 capsule (20 mg) by mouth in the morning. Take before meals. Do not crush or chew.. 30 capsule 11 05/10/2024 12/15/2024 DiscontinuedPrenatal MV-Min-Fe Fum-FA-DHA ( 1 PO) (20 sources) End: 41-03-4800Bmoppqwn MV-Min-Fe Fum-FA-DHA ( 1 PO) Take 1 each by mouth Daily 12/15/2024 DiscontinuedPrenatal MV-Min-Fe Fum-FA-DHA ( 1 PO) Take 1 each by mouth Daily Activepromethazine hydrochloride 25 mg oral tablet (2 sources)PhenothiazineStart: 02-06-2017 End: 08-92-5785dael 1 tablet by mouth every six hours as needed for nausea Promethazine 25 mg Tablet Discontinued 25 MG PO Q6H as needed for Nausea February 06, 2017 12:00am May 16, 2017 1:07am Problems Active Problems Problem ClassificationProblemDateDocumented DateEpisodic/ChronicCardiac dysrhythmias (20 sources)Supraventricular tachycardia; Translations: [Supraventricular tachycardia]Onset: 078647-31-8235MpwcqpgCngewwtp mellitus without complication (2 sources)Abnormal glucose tolerance test; Translations: [Other abnormal glucose]20-61-6989WorpadswYkwirpzk or abnormal glucose tolerance complicating ; childbirth; or the puerperium (8 sources)History of gestational diabetes mellitus; Translations: [Personal history of gestational diabetes]44-03-9458RbkupcssXmdidjum; including migraine (2 sources)Bjaehnnq98-58-2221AttoyslIcxukmfowbzeq and screening for infectious disease (3 sources)Encounter for screening for human papillomavirus (HPV); Translations: [Patient encounter status]Onset: 530769-26-3040BqxhzdggKaznvlqki (1 source)Influenza due to other identified influenza virus with other respiratory manifestations; Translations: [FLU D/T OTH ID FLU VIR OTH RSP MANF] Onset: 51-41-8766UyxjvhrhSfqlkslqd disorders (3 sources)Missed period; Translations: [Irregular menstruation, unspecified] 21-25-8432WhmkeoiYuwalnnlkbfhd mental health disorders (4 sources)Primary insomnia; Translations: [Primary insomnia]64-40-9330Lclujiz Mood disorders (20 sources)Depressive disorder; Translations: [Depression]Onset: 09-01-2023 Resolved: 232930-12-9720VoeqgmlOrnag aftercare (1 source)alf (current) use of hormonal contraceptives; Translations: [HAND PLUG SHAPER HORMONAL CONTRACEPTIVES]Onset: 59-22-3893OumuvzosNxzjo aftercare (1 source)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 poultry 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 (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 therapy; Translations: [OTH HAND PLUG SHAPER CURRENT DRUG THERAPY]Onset: 78-94-9568TczllyhyPxxrd bone disease and musculoskeletal deformities (2 sources)Costal chondritis; 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 [Tietze]]63-47-1433YuweihilRulup complications of (8 sources)Multigravida of advanced maternal age; Translations: [Supervision of elderly multigravida, unspecified trimester]23-04-1923CtvnsttbPvkmz nutritional; endocrine; and metabolic disorders (1 source)Obesity, unspecified; Translations: [OBESITY UNSPECIFIED]Onset: 91-48-8777VarjshmKgvbv nutritional; endocrine; and metabolic disorders (20 sources)Body mass index 30+ - obesity; Translations: [Obesity, unspecified] Onset: 920090-07-0906XvubtfzQwxmh and delivery including normal (20 sources); Translations: [Encounter for supervision of normal , unspecified, unspecified trimester]76-63-4984WshlkduaWuhrz screening for suspected conditions (not mental disorders or infectious disease) (14 sources)Encounter for screening for malignant neoplasm of cervix; Translations: [Alpha-fetoprotein blood test status]Onset: 52-98-2451Khgbicnn Residual codes; unclassified (2 sources)Gestation period, 11 weeks; Translations: [11 weeks gestation of ]16-53-4408EquxetswLqwjygyl codes; unclassified (2 sources)Gestation period, 15 weeks; Translations: [15 weeks gestation of ]29-76-5045TmcdgfnmAqafthze codes; unclassified (2 sources)Gestation period, 25 weeks; Translations: [25 weeks gestation of ]79-14-3259WwvtknwmEvxwdrut codes; unclassified (2 sources)Gestation period, 28 weeks; Translations: [28 weeks gestation of ]66-55-2924UjjfwsxlPugkmtpk codes; unclassified (2 sources)Gestation period, 30 weeks; Translations: [30 weeks gestation of ]70-41-6807IxfpzqniBxcidxsj codes; unclassified (2 sources)Gestation period, 32 weeks; Translations: [32 weeks gestation of ]28-49-3540QumifogqYbznelbu codes; unclassified (2 sources)Gestation period, 34 weeks; Translations: [34 weeks gestation of ]06-48-1137HplrssuyYlnkeayc codes; unclassified (2 sources)Gestation period, 36 weeks; Translations: [36 weeks gestation of ]42-40-1932ImzoeiptJejmvdqf codes; unclassified (2 sources)Gestation period, 37 weeks; Translations: [37 weeks gestation of ]51-30-6304WwmywhlfMyhabryb codes; unclassified (2 sources)Gestation period, 38 weeks; Translations: [38 weeks gestation of ]26-69-5152XgrrxsbeKeklhntmi and history of mental health and substance abuse codes (1 source)Personal history of nicotine dependence; Translations: [PERSONAL HISTORY OF NICOTINE DEPEND]Onset: 89-26-8148NwpiobpwWqmkx gestation; low weight; and growth retardation (6 sources)Dlpbz-edv-uwumt baby; Translations: [[place] small for gestational age, unspecified weight]39-68-8425RutdxxaoLddiykcdoiaz (2 sources)COUGH, UNSPECIFIED; Translations: [COUGH, UNSPECIFIED]Onset: 06-20-3990Ucwexhkkjuty (1 source)PERSONAL HISTORY OF COVID-19; Translations: [PERSONAL HISTORY OF COVID-19]Onset: 88-48-0084Isxduyowmjsh (1 source)CONTACT W/AND (SUSP) EXPOS COVID-19; Translations: [CONTACT W/AND (SUSP) EXPOS COVID-19]Onset: 26-12-4851Gnklnckurhgo (20 sources)OB RemindersOnset: Past or Other Problems Problem ClassificationProblemDateDocumented DateEpisodic/ChronicInflammation; infection of eye (except that caused by tuberculosis or sexually transmitteddisease) (1 source)Unspecified conjunctivitis; Translations: [UNSPECIFIED CONJUNCTIVITIS] Onset: 65-32-0020MqbgmilmFgklg eye disorders (4 sources)Ocular pain, left eye; Translations: [OCULAR PAIN LEFT EYE]Onset: 84-04-2714VrcawhldWjbna non-traumatic joint disorders (20 sources)Pain of left wrist; Translations: [Pain in left wrist]Onset: 515855-19-7472KqvdcahjJoloq skin disorders (4 sources)Nonscarring hair loss, unspecified; Translations: [NONSCARRING HAIR LOSS UNSPECIFIED]Onset: 35-70-4002GefuzfijFdwcjrlm codes; unclassified (20 sources)Insomnia; Translations: [Insomnia, unspecified]Onset: 02-27-2023 87-64-5518DfwfaunqDuwtlpntnuwe (1 source)COUGH, UNSPECIFIED; Translations: [COUGH, UNSPECIFIED]Onset: 02-20-2022 Results Test NameValueInterpretationReference RangeFacilityALL CBC WITH AUTO DIFFon 41-35-1598SRJDAETLH ABSOLUTE ROCV8INGR HealthcareBasophils/100 WBC (Bld)0.2 %0.2 - 2.0 %NOMEllis Fischel Cancer CenterEosinophils/100 WBC (Bld)0.2 %Low0.9 - 7.0 %[facility] HospitalErythrocyte distribution width (RBC) [Ratio]14.3 %11.0 - 15.0 %[facility] HospitalHematocrit (Bld) [Volume fraction]37.1 %36.0 - 48.0 %[facility] Hemoglobin (Bld) [Mass/Vol]12.3 g/dL12.0 - 16.0 g/dLSaint John's Saint Francis HospitalIMMATURE GRANULOCYTES ABS AUTO0.05HighNOMercy Hospital St. John'sImmature granulocytes/100 WBC (Bld) 0.4 %0.0 - 0.5 %[facility] HospitalInterpretation and review of laboratory results AbnormalNOMercy Hospital St. John'sLYMPHOCYTES ABSOLUTE AUTO2.5NOMercy Hospital St. John's Lymphocytes/100 WBC (Bld)19.3 %Low20.5 - 60.0 %[facility] CampusH (RBC) [Entitic mass]30.6 pg26.7 - 34.0 pgResearch Medical Center-Brookside CampusHC (RBC) [Mass/Vol]33.2 g/dL29.9 - 35.2 g/dLResearch Medical Center-Brookside CampusV (RBC) [Entitic vol]92.3 fL81.0 - 99.0 fLSaint John's Saint Francis HospitalMONOCYTES ABSOLUTE AUTO1.1HighSaint John's Saint Francis HospitalMonocytes/100 WBC (Bld) 8.2 %1.7 - 12.0 %[facility] HospitalNEUTROPHILS ABSOLUTE AUTO9.4HighSaint John's Saint [facility] Hospital Neutrophils/100 WBC (Bld)71.7 %43.0 - 75.0 %[facility] HospitalPlatelet mean volume (Bld) [Entitic vol]11 fL9.5 - 13.5 fLSaint John's Saint Francis HospitalTBH EO #0NOMS Fostoria City HospitalTBH CSJ021AYFT HealthcareTBH RBC4.02LowNOMS HealthcareTBH WBC13.1HighNOAZ Healthcare CLINISYNCNOAZ HealthcareTBH UA (CLEAN/CATCH) OPTOMETRIC TECHNOLOGIST/MICRO IF IND.on 09-14-2024 BILIRUBIN URINENegativeNEGATIVENOMS HealthcareBLOOD URINENegativeNEGATIVENOMS HealthcareClarity (U)CLEARCLEARNOMS HealthcareColor (U)LT. YELLOWYELLOWNOMS HealthcareGLUCOSE URINE UANegativeNEGATIVE mg/dLNOMS HealthcareKetones Ql (U) NegativeNEGATIVE mg/dLNOAZ HealthcareLeukocyte esterase Test strip Ql (U) NegativeNEGATIVENOMS HealthcareNITRITE URINENegativeNEGATIVENOMS HealthcarepH (U)7.0 [pH]5.0 - 9.0NOMS HealthcarePROTEIN URINENegativeNEG/TRACE mg/dLNOAZ HealthcareSPECIFIC GRAVITY URINE1.0101.005 - 1.025NOMS HealthcareURINE MICROSCOPIC INDICATEDNONOMS HealthcareUROBILINOGEN URINE0.2 EU/dL0.2 - 1.0 EU/dL NOMS HealthcareCLINISYNCNBROOKHAVEN [facility] HealthcareUrinalysis macro (dipstick) panel (U)on 18-43-7916Qpwvcwunf, UANegativeNegative - 4(70) +++ mg/dLNOMS HealthcareBlood, UANegativeNegative - 50 Richy/mcLNOMS HealthcareClarity, UAClearNOMS Healthcare Color, UAYellowNOMS HealthcareGlucose, UANegativeNegative - 2000(110) ++++ mg/dL NOMS HealthcareInterpretation and review of laboratory resultsAbnormalNOMS HealthcareKetones, UANegativeNegative - 160(16) ++++ mg/dLNOAZ Healthcare Leukocytes, UANegativeNegative - 500+++ Tano/mcLNOMS HealthcareNitrite, UA NegativeNegative - PositiveNOMS HealthcarepH, UA75 - 9NOAZ HealthcareProtein, UA PositiveNegative - 2000(20) ++++ mg/dLNOAZ HealthcareComment on above:30Spec Grav, UA1.021 - 1.03NOMS HealthcareUrobilinogen, UA1.00.2 - 12 mg/dLNOMS HealthcareNOMS HealthcareUS OB BPP W NON-STRESSon 40-93-8934[address] [address] Ultrasound Report Signed Patient: SHREYA MARSHALL MR#: [id number] : 1990 Acct:[id number] Age/Sex: 34 / F ADM Date: 09/12/24 Loc: [facility] [place] Dr: Radha Chi Ordering Physician: Radha Chi Date of Service: 09/12/24 Procedure(s): US OB BPP w non-stress Accession Number(s): [id number] cc: Анна Ha NET TRAINER; Radha Chi The [place] [phone] Patient Name: SHREYA MARSHALL MRN: [facility]:[id number] date: 1990 Sex: F Assigned Patient Location: [facility] Current Patient Location: Accession/Order Number: [id number] Exam Date: 09/12/2024 11:48 Report Date: 09/12/2024 11:49 At the request of: RADHA CHI Procedure: US OB BPP w non-stress Biophysical profile. Reason for exam: Repeat BPP. COMPARISON: BPP 09/11/2024. TECHNIQUE: Transabdominal imaging of the gravid uterus was obtained. FINDINGS: The mask designer reports a BPP of 8 out of 8. LIVE is normal at 12.7 cm. heart rate 126 bpm. US/US OB BPP w non-stress IMPRESSION: BPP 8 out of 8. Impression dictated by: Avery Ram Jr., D.O. 09/12/2024 11:49 AM Dictation Location: [place] [address] Electronically authenticated by: [id number] Y Date: 09/12/2024 11:49 Dictated By: Avery Ram M.D. Signed By: 09/12/24 1152 DD/ 1149 TD/TT: Marketing Segment Manager:DELVINadiologosman, Radiologist, - 09/12/2024 The [place] [id number] Ultrasound Report Signed Patient: SHREYA MARSHALL MR#: [id number] : 1990 Acct:[id number] Age/Sex: 34 / F ADM Date: 09/12/24 Loc: [facility] Attending Dr: Radha Chi Ordering Physician: Radha Chi Date of Service: 09/12/24 Procedure(s): US OB BPP w non-stress Accession Number(s): [id number] cc: Анна Ha NET TRAINER; Radha Chi [place] [id number] Patient Name: SHREYA MARSHALL MRN: [id number] date: 1990 Sex: F Assigned Patient Location: [facility] Current Patient Location: Accession/Order Number: [id number] Exam Date: 09/12/2024 11:48 Report Date: 09/12/2024 11:49 At the request of: RADHA CHI Procedure: US OB BPP w non-stress Biophysical profile. Reason for exam: Repeat BPP. COMPARISON: BPP 09/11/2024. TECHNIQUE: Transabdominal imaging of the gravid uterus was obtained. FINDINGS: The mask designer reports a BPP of 8 out of 8. LIVE is normal at 12.7 cm. heart rate 126 bpm. US/US OB BPP w non-stress IMPRESSION: BPP 8 out of 8. Impression dictated by: Avery Ram Jr., D.O. 09/12/2024 11:49 AM Dictation Location: [place] [address] Electronically authenticated by: [id number] Y Date: 09/12/2024 11:49 Dictated By: Avery Ram M.D. Signed By: 09/12/24 1152 DD/ 1149 TD/TT: Marketing Segment Manager: MIRANDA HealthcareRadiology Study observation (narrative)MIRANDA HealthcareUS OB BPP W NON-STRESSOrdered By: Radiologist Radiology on 14-97-6174QPHL Healthcare Work Phone: US OB BPP W NON-STRESSon 29-27-2746Lmb[address] [address] Ultrasound Report Signed Patient: SHREYA MARSHALL MR#: [id number] : 1990 Acct:[id number] Age/Sex: 34 / F ADM Date: 09/11/24 Loc: [place] Attending Dr: Slava Castro D.O. Ordering Physician: Slava Castro D.O. Date of Service: 09/11/24 Procedure(s): US OB BPP w non-stress Accession Number(s): [id number] cc: Анна Ha NET TRAINER; Slava Castro D.O. The [place] [address] Patient Name: SHREYA MARSHALL MRN: [id number] date: 1990 Sex: F Assigned Patient Location: [facility] Current Patient Location: Accession/Order Number: [id number] Exam Date: 09/11/2024 14:21 Report Date: 09/11/2024 [...] Sheets M.D. 09/11/2024 2:23 PM Dictation Location: [place] [address] Electronically authenticated by: [id number] Y Date: 09/11/2024 14:23 Dictated By: Jake Sheets M.D. Signed By: 09/11/241424 DD/ 22 TD/TT: Marketing Segment Manager:DELVINadiology, Radiologist, - 09/11/2024 [place] [address] Ultrasound Report Signed Patient: SHREYA MARSHALL MR#: [id number] : 1990 Acct:[id number] Age/Sex: 34 / F ADM Date: 09/11/24 Loc: [facility] Attending Dr: Slaav Castro D.O. Ordering Physician: Slava Castro D.O. Date of Service: 09/11/24 Procedure(s): US OB BPP w non-stress Accession Number(s): [id number] cc: Анна Ha NET TRAINER; Slava Castro D.O. [place] [address] Patient Name: SHREYA MARSHALL MRN: [id number] date: 1990 Sex: F Assigned Patient Location: [facility] Current Patient Location: Accession/Order Number: [id number] Exam Date: 09/11/2024 14:21 Report Date: 09/11/2024 [...] Sheets M.D. 09/11/2024 2:23 PM Dictation Location[facility] Electronically authenticated by: [id number] Y Date: 09/11/2024 14:23 Dictated By: Jake Sheets M.D. Signed By: 09/11/241424 DD/ 22 TD/TT: Marketing Segment Manager: MIRANDA HealthcareRadiology Study observation (narrative)NOMCorby HealthcareUS OB BPP W NON-STRESSOrdered By: Radiologist Radiology on 98-86-1452XALO Healthcare Work Phone: no Panel InformationOrdered By: Radiologist Radiology on 24-51-8158SDPA Healthcare Work Phone: no Panel Informationon 65-06-6560Opjlaaomn Study observation (narrative)NOMS HealthcareUS OB BPP W NON-STRESSon 09-09-[address] [address] Ultrasound Report Signed Patient: SHREYA MARSHALL MR#: [id number] : 1990 Acct:[id number] Age/Sex: 34 / F ADM Date: 09/08/24 Loc: [place] Attending Dr: Vidya Jackson Ordering Physician: Vidya Jackson Date of Service: 09/08/24 Procedure(s): US OB BPP w non-stress Accession Number(s): [id number] cc: Анна Ha NP; Vidya Jackson [place] [phone] Patient Name: SHREYA MARSHALL MRN: [id number] date: 1990 Sex: F Assigned Patient Location: Current Patient Location: Accession/Order Number: [id number] Exam Date: 09/09/2024 08:04 Report Date: 09/09/2024 [...] Auguste M.D. 09/09/2024 8:12 AM Dictation Location: [place] [address] Electronically authenticated by: [id number] Y Date: 09/09/2024 08:12 Dictated By: Isatu Auguste M.D. Signed By: 09/09/24813 DD/ 1 TD/TT: Marketing Segment Manager:DEYAHRadiology, Radiologist, - 09/09/2024 The [place] [id number] Ultrasound Report Signed Patient: SHREYA MARSHALL MR#: [id number] : 1990 Acct:[id number] Age/Sex: 34 / F ADM Date: 09/08/24 Loc: [place] Attending Dr: Vidya Jackson Ordering Physician: Vidya Jackson Date of Service: 09/08/24 Procedure(s): US OB BPP w non-stress Accession Number(s): [id number] cc: Анна Ha NP; Vidya Jackson The [place] [phone] Patient Name: SHREYA MARSHALL MRN: [id number] date: 1990 Sex: F Assigned Patient Location: [place] Current Patient Location: Accession/Order Number: [id number] Exam Date: 09/09/2024 08:04 Report Date: 09/09/2024 [...] Auguste M.D. 09/09/2024 8:12 AM Dictation Location: [place] [address] Electronically authenticated by: [id number] Y Date: 09/09/2024 08:12 Dictated By: Isatu Auguste M.D. Signed By: 09/09/24813 DD/ 1 TD/TT: Marketing Segment Manager: MIRANDA [place] OB GROWTHon 75-22-0195Pdq[address] [address] Ultrasound Report Signed Patient: SHREYA MARSHALL MR#: [id number] : 1990 Acct:[id number] Age/Sex: 34 / F ADM Date: 09/08/24 Loc: [place] Attending Dr: Vidya Jackson Ordering Physician: Vidya Jackson Date of Service: 09/08/24 Procedure(s): US OB growth Accession Number(s): [id number] cc: Анна Ha NP; Vidya Jackson [address] [address] Patient Name: SHREYA MARSHALL MRN: [id number] date: 1990 Sex: F Assigned Patient Location: [facility] Current Patient Location: Accession/Order Number: [id number] Exam Date: 09/09/2024 08:04 Report Date: 09/09/2024 [...] Auguste M.D. 09/09/2024 8:12 AM Dictation Location: [place] [address] Electronically authenticated by: [id number] Y Date: 09/09/2024 08:12 Dictated By: Isatu Auguste M.D. Signed By: 09/09/24813 DD/ 1 TD/TT: Marketing Segment Manager:TBHRadiology, Radiologist, MD - 09/09/2024 [place] [address] Ultrasound Report Signed Patient: SHREYA MARSHALL MR#: [id number] : 1990 Acct:[id number] Age/Sex: 34 / F ADM Date: 09/08/24 Loc: [place] Attending Dr: Vidya Jackson Ordering Physician: Vidya Jackson Date of Service: 09/08/24 Procedure(s): US OB growth Accession Number(s): [id number] cc: Анна Ha NP; Vidya Jackson The [address] [address] Patient Name: SHREYA MARSHALL MRN: [id number] date: 1990 Sex: F Assigned Patient Location: [facility] Current Patient Location: Accession/Order Number: [id number] Exam Date: 09/09/2024 08:04 Report Date: 09/09/2024 08:12 At the request of: VIDYA COCO Procedure: US OB growth CLINICAL INFORMATION: History [...] Auguste M.D. 09/09/2024 8:12 AM Dictation Location: [place] [address] Electronically authenticated by: [id number] Y Date: 09/09/2024 08:12 Dictated By: Isatu Auguste M.D. Signed By: 09/09/24813 DD/ 1 TD/TT: Marketing Segment Manager: MIRANDA HealthcareUrinalysis macro (dipstick) panel (U)on 87-75-4829Pkavjhkyu, UA NegativeNegative - 4(70) +++ mg/dLNOAZ HealthcareBlood, UANegativeNegative - 50 Richy/mcLJORDAN VALLEY [facility] HealthcareClarity, UAClearNOAZ HealthcareColor, UAYellowNOAZ HealthcareGlucose, UANegativeNegative - 2000(110) ++++ mg/dLNOAZ Healthcare Interpretation and review of laboratory resultsAbnormalNOAZ HealthcareKetones, UANegativeNegative - 160(16) ++++ mg/dLJORDAN VALLEY [facility] HealthcareLeukocytes, UANegative Negative - 500+++ Tano/mcLNOAZ HealthcareNitrite, UANegativeNegative - Positive NOMS HealthcarepH, UA6.55 - 9NOAZ HealthcareProtein, UAPositiveNegative - 2000(20) ++++ mg/dLJORDAN VALLEY [facility] HealthcareComment on above:30Spec Grav, UA1.021 - 1.03 NOMS HealthcareUrobilinogen, UA0.20.2 - 12 mg/dLNOScotland County Memorial Hospital Healthcare STREP GP B CULTURE+RFLXon 36-65-2160UQEIQ GP B CULTURE+RFLX Strep Gp B Culture+Rflx NOMS HealthcareSTREP GP B CULTURE+RFLXNegativeNOAZ HealthcareSTREP GP B CULTURE+RFLXCenters for Disease Control and Prevention (CDC) andJORDAN [facility] Healthcare STREP GP B CULTURE+RFLXAmerican Congress of Obstetricians and GynecologistsNOAZ HealthcareSTREP GP B CULTURE+RFLX(ACOG) guidelines for prevention of group BNOMS HealthcareSTREP GP B CULTURE+RFLXstreptococcal (GBS) disease specify co-collection ofNOAZ HealthcareSTREP GP B CULTURE+RFLXa vaginal and rectal swab specimen to maximizeNOAZ HealthcareSTREP GP B CULTURE+RFLXsensitivity of GBS detection. Per the CDC and ACOG,NOMS HealthcareSTREP GP B CULTURE+RFLXswabbing both the lower vagina and rectumNOAZ HealthcareSTREP GP B CULTURE+RFLX substantially increases the yield of detectionNOAZ HealthcareSTREP GP B CULTURE+RFLXcompared with sampling the vagina alone.NOMS HealthcareSTREP GP B CULTURE+RFLXPenicillin G, ampicillin, or cefazolin are indicatedNOAZ Healthcare STREP GP B CULTURE+RFLXfor intrapartum prophylaxis of GBSNOAZ HealthcareSTREP GP B CULTURE+RFLXcolonization. Reflex susceptibility testing should beNOMS HealthcareSTREP GP B CULTURE+RFLXperformed prior to use of clindamycin only on GBSNOMS HealthcareSTREP GP B CULTURE+RFLXisolates from penicillin-allergic women who areNOMS HealthcareSTREP GP B CULTURE+RFLX considered a high risk for anaphylaxis. Treatment withNOMS HealthcareSTREP GP B CULTURE+RFLXvancomycin without additional testing is warranted ifNOMS Healthcare STREP GP B CULTURE+RFLXresistance to clindamycin is noted.NOMS HealthcareSTREP GP B CULTURE+RFLXPerformed at: CB - [facility] HealthcareSTREP GP B CULTURE+[id number] [place], [place] [id number] HealthcareSTREP GP B CULTURE+RFLXLab Director: Toyn Bynum PhD, Phone: [phone] [facility] HealthcareUrinalysis macro (dipstick) panel (U)on 40-11-0097Jndgyltoc, UANegativeNegative - 4(70) +++ mg/dLNOMS HealthcareBlood, UANegativeNegative - 50 Richy/mcLNOMS HealthcareClarity, UAClearNOMS Healthcare Color, UAYellowNOMS HealthcareGlucose, UANegativeNegative - 2000(110) ++++ mg/dL [facility] HealthcareInterpretation and review of laboratory resultsAbnormalNOMS HealthcareKetones, UANegativeNegative - 160(16) ++++ mg/dLNOAZ Healthcare Leukocytes, UANegativeNegative - 500+++ Tano/mcLNOAZ HealthcareNitrite, UA NegativeNegative - PositiveNOMS HealthcarepH, UA65 - 9NOMS HealthcareProtein, UA PositiveNegative - 2000(20) ++++ mg/dLNOMS HealthcareComment on above:30Spec Grav, UA1.021 - 1.03NOMS HealthcareUrobilinogen, UA1.00.2 - 12 mg/dLNOMS HealthcareNOMS HealthcareUS OB BPP W NON-STRESSon 76-33-5795[address] [address] Ultrasound Report Signed Patient: SHREYA MARSHALL MR#: [id number] : 1990 Acct:[id number] Age/Sex: 34 / F ADM Date: 09/01/24 Loc: US Attending Dr: Vidya Jackson Ordering Physician: Vidya Jackson Date of Service: 09/01/24 Procedure(s): US OB BPP w non-stress Accession Number(s): [id number] cc: Анна Ha NP; Vidya Jackson [place] [phone] Patient Name: SHREYA MARSHALL MRN: [facility] [place]:[id number] date: 1990 Sex: F Assigned Patient Location: US Current Patient Location: Accession/Order Number: [id number] Exam Date: 09/01/2024 15:10 Report Date: 09/01/2024 [...] Perez M.D. 09/01/2024 3:11 PM Dictation Location: [place] [address] Electronically authenticated by: [id number] Y Date: 09/01/2024 15:11 Dictated By: Emilio Perez D.O. Signed By: 09/01/24 1513 DD/ 10 TD/TT: Marketing Segment Manager:DELVINadiologosman, Radiologist, MD - 09/01/2024 [place] [address] Ultrasound Report Signed Patient: SHREYA MARSHALL MR#: [id number] : 1990 Acct:[id number] Age/Sex: 34 / F ADM Date: 09/01/24 Loc: US Attending Dr: Vidya Jackson Ordering Physician: Vidya Jackson Date of Service: 09/01/24 Procedure(s): US OB BPP w non-stress Accession Number(s): [id number] cc: Анна Ha NP; Vidya Jackson [place] [id number] Patient Name: SHREYA MARSHALL MRN: [id number] date: 1990 Sex: F Assigned Patient Location: US Current Patient Location: Accession/Order Number: [id number] Exam Date: 09/01/2024 15:10 Report Date: 09/01/2024 [...] Perez M.D. 09/01/2024 3:11 PM Dictation Location: [place] [address] Electronically authenticated by: [id number] Y Date: 09/01/2024 15:11 Dictated By: Emilio Perez D.O. Signed By: 09/01/241512 DD/ 10 TD/TT: Marketing Segment Manager: MIRANDA HealthcareRadiology Study observation (narrative)[facility]OMCorby HealthcareUS OB BPP W NON-STRESSOrdered By: Radiologist Radiology on 55-89-1056QAZE Healthcare Work Phone: US OB BPP W NON-STRESSon [phone] [address] Ultrasound Report Signed Patient: SHREYA MARSHALL MR#: [id number] : 1990 Acct:[id number] Age/Sex: 33 / F ADM Date: 08/25/24 Loc: [facility] 253-[address]: Vidya Jackson Ordering Physician: Vidya Jackson Date of Service: 08/25/24 Procedure(s): US OB BPP w non-stress Accession Number(s): [id number] cc: Анна Ha NP; Vidya Jackson [place] [address] Patient Name: SHREYA MARSHALL MRN: [id number] date: 1990 Sex: F Assigned Patient Location: [facility] Current Patient Location: [facility] Accession/Order Number: [id number] Exam Date: 08/25/2024 11:31 Report Date: 08/25/2024 [...] Auguste M.D. 08/25/2024 11:33 AM Dictation Location: [place] [address] Electronically authenticated by: [id number] Y Date: 08/25/2024 11:33 Dictated By: Isatu Auguste M.D. Signed By: 08/25/24 1135 DD/ 1133 TD/TT: Marketing Segment Manager:DEYAHRadiology, Radiologist, - 08/25/2024 [place] [address] Ultrasound Report Signed Patient: SHREYA MARSHALL MR#: [id number] : 1990 Acct:[id number] Age/Sex: 33 / F ADM Date: 08/25/24 Loc: [facility] 253-[address]: Vidya Jackson Ordering Physician: Vidya Jackson Date of Service: 08/25/24 Procedure(s): US OB BPP w non-stress Accession Number(s): [id number] cc: Анна Ha NP; Vidya Jackson [place] [address] Patient Name: SHREYA MARSHALL MRN: [facility] [place]:[id number] date: 1990 Sex: F Assigned Patient Location: [facility] Current Patient Location: [facility] Accession/Order Number: [id number] Exam Date: 08/25/2024 11:31 Report Date: 08/25/2024 [...] Auguste M.D. 08/25/2024 11:33 AM Dictation Location: [place] [address] Electronically authenticated by: [id number] Y Date: 08/25/2024 11:33 Dictated By: Isatu Auguste M.D. Signed By: 08/25/24 1135 DD/ 1133 TD/TT: Marketing Segment Manager: MIRANDA HealthcareRadiology Study observation (narrative)NOMS HealthcareUS OB BPP W NON-STRESSOrdered By: Radiologist Radiology on 20-53-4418[employer] Work Phone: US OB BPP W NON-STRESSon [phone] [address] Ultrasound Report Signed Patient: SHREYA MARSHALL MR#: [id number] : 1990 Acct:[id number] Age/Sex: 33 / F ADM Date: 08/18/24 Loc: US Attending Dr: Vidya Jackson Ordering Physician: Vidya Jackson Date of Service: 08/18/24 Procedure(s): US OB BPP w non-stress Accession Number(s): [id number] cc: Анна Ha NET TRAINER; Vidya Jackson [address] [address] Patient Name: SHREYA MARSHALL MRN: [id number] date: 1990 Sex: F Assigned Patient Location: [facility] Current Patient Location: Accession/Order Number: [id number] Exam Date: 08/18/2024 11:47 Report Date: 08/18/2024 11:48 At the request of: VIDYA JACKSON Procedure: US OB BPP w non-stress BIOPHYSICAL PROFILE: CLINICAL INFORMATION: History of gestational diabetes Z86.32 COMPARISON: 08/13/2024 There is a single live intrauterine gestation in cephalic presentation. The reported gestational age is 34 weeks 5 days. The heart rate oifzormb780 beats per minute. FINDINGS: TONE: 1 or [...] Auguste M.D. 08/18/2024 11:48 AM Dictation Location: RADIO-PC-02 Electronically authenticated by: [id number] Y Date: 08/18/2024 11:48 Dictated By: Isatu Auguste M.D. Signed By: 08/18/24 1151 DD/ 1148 TD/TT: Marketing Segment Manager:DELVINadiolannie Radiologist, - 08/18/2024 [place] [address] Ultrasound Report Signed Patient: SHREYA MARSHALL MR#: [id number] : 1990 Acct:[id number] Age/Sex: 33 / F ADM Date: 08/18/24 Loc: US Attending Dr: Vidya Jackson Ordering Physician: Vidya Jackson Date of Service: 08/18/24 Procedure(s): US OB BPP w non-stress Accession Number(s): [id number] cc: Анна Ha NET TRAINER; Vidya Jackson [place] [phone] Patient Name: SHREYA MARSHALL MRN: [id number] date: 1990 Sex: F Assigned Patient Location: [facility] Current Patient Location: Accession/Order Number: [id number] Exam Date: 08/18/2024 11:47 Report Date: 08/18/2024 11:48 At the request of: VIDYA JACKSON Procedure: US OB BPP w non-stress BIOPHYSICAL PROFILE: CLINICAL INFORMATION: History of gestational diabetes Z86.32 COMPARISON: 08/13/2024 There is a single live intrauterine gestation in cephalic presentation. The reported gestational age is 34 weeks 5 days. The heart rate voaejafm278 beats per minute. FINDINGS: TONE: 1 or [...] Auguste M.D. 08/18/2024 11:48 AM Dictation Location: [place] [address] Electronically authenticated by: [id number] Y Date: 08/18/2024 11:48 Dictated By: Isatu Auguste M.D. Signed By: 08/18/24 1151 DD/ 1148 TD/TT: Marketing Segment Manager: MIRANDA HealthcareRadiology Study observation (narrative)NOM HealthcareUS OB BPP W NON-STRESSOrdered By: Radiologist Radiology on 73-87-8909ZRCK [employer] Work Phone: US OB BPP W NON-STRESSon [phone] [address] Ultrasound Report Signed Patient: SHREYA MARSHALL MR#: [id number] : 1990 Acct:[id number] Age/Sex: 33 / F ADM Date: 08/13/24 Loc: US Attending Dr: Slvaa Castro D.O. Ordering Physician: Slava Castro D.O. Date of Service: 08/13/24 Procedure(s): US OB BPP w non-stress Accession Number(s): [id number] cc: Анна Ha NET TRAINER; Slava Castro D.O. [place] [phone] Patient Name: SHREYA MARSHALL MRN: [id number] date: 1990 Sex: F Assigned Patient Location: [facility] Current Patient Location: Accession/Order Number: [id number] Exam Date: 08/13/2024 17:25 Report Date: 08/13/2024 [...] Camacho M.D. 08/13/2024 5:27 PM Dictation Location: [place] [address] Electronically authenticated by: [id number] Y Date: 08/13/2024 17:27 Dictated By: Nilo Camacho M.D. Signed By: 08/13/241728 DD/ 26 TD/TT: Marketing Segment Manager:DEYAHRadiology, Radiologist, - 08/13/2024 [place] [address] Ultrasound Report Signed Patient: SHREYA MARSHALL MR#: [id number] : 1990 Acct:[id number] Age/Sex: 33 / F ADM Date: 08/13/24 Loc: US Attending Dr: Slava Castro D.O. Ordering Physician: Slava Castro D.O. Date of Service: 08/13/24 Procedure(s): US OB BPP w non-stress Accession Number(s): [id number] cc: Анна Ha NET TRAINER; Slava Castro D.O. [place] [phone] Patient Name: SHREYA MARSHALL MRN: [facility] [place]:[id number] date: 1990 Sex: F Assigned Patient Location: [facility] Current Patient Location: Accession/Order Number: [id number] Exam Date: 08/13/2024 17:25 Report Date: 08/13/2024 [...] Camacho M.D. 08/13/2024 5:27 PM Dictation Location: [place] [address] Electronically authenticated by: [id number] Y Date: 08/13/2024 17:27 Dictated By: Nilo Camacho M.D. Signed By: 08/13/241728 DD/ 26 TD/TT: Marketing Segment Manager: MIRANDA HealthcareRadiology Study observation (narrative)NOMS HealthcareUS OB BPP W NON-STRESSOrdered By: Radiologist Radiology on 85-04-9531WRRZ Healthcare Work Phone: US OB BPP W NON-STRESSon [phone] [address] Ultrasound Report Signed Patient: SHREYA MARSHALL MR#: [id number] : 1990 Acct:[id number] Age/Sex: 33 / F ADM Date: 08/11/24 Loc: [facility] 254-[address]: Vidya Jackson Ordering Physician: Vidya Jackson Date of Service: 08/11/24 Procedure(s): US OB BPP w non-stress Accession Number(s): [id number] cc: Анна Ha NET TRAINER; Vidya Jackson [address] [address] Patient Name: SHREYA MARSHALL MRN: [id number] date: 1990 Sex: F Assigned Patient Location: [facility] Current Patient Location: [facility] Accession/Order Number: [id number] Exam Date: 08/11/2024 12:18 Report Date: 08/11/2024 [...] Auguste M.D. 08/11/2024 12:20 PM Dictation Location: [place] [address] Electronically authenticated by: [id number] Y Date: 08/11/2024 12:20 Dictated By: Isatu Auguste M.D. Signed By: 08/11/24 1222 DD/ 1220 TD/TT: Marketing Segment Manager:TBHRadiology, Radiologist, - 08/11/2024 [place] [address] Ultrasound Report Signed Patient: SHREYA MARSHALL MR#: [id number] : 1990 Acct:[id number] Age/Sex: 33 / F ADM Date: 08/11/24 Loc: [facility] 254-[address]: Vidya Jackson Ordering Physician: Vidya Jackson Date of Service: 08/11/24 Procedure(s): US OB BPP w non-stress Accession Number(s): [id number] cc: Анна Ha NET TRAINER; Vidya Jackson [place] [address] Patient Name: SHREYA MARSHALL MRN: [id number] date: 1990 Sex: F Assigned Patient Location: [facility] Current Patient Location: [facility] Accession/Order Number: [id number] Exam Date: 08/11/2024 12:18 Report Date: 08/11/2024 [...] Auguste M.D. 08/11/2024 12:20 PM Dictation Location: [place] [address] Electronically authenticated by: [id number] Y Date: 08/11/2024 12:20 Dictated By: Isatu Auguste M.D. Signed By: 08/11/24 1222 DD/ 1220 TD/TT: Marketing Segment Manager: MIRANDA HealthcareRadiology Study observation (narrative)NOMCorby HealthcareUS OB BPP W NON-STRESSOrdered By: Radiologist Radiology on 39-01-1262SPGQ Healthcare Work Phone: US OB BPP W NON-STRESSon [phone] [address] Ultrasound Report Signed Patient: SHREYA MARSHALL MR#: [id number] : 1990 Acct:[id number] Age/Sex: 33 / F ADM Date: 08/04/24 Loc: [facility] 250-[address]: Vidya Jackson Ordering Physician: Vidya Jackson Date of Service: 08/04/24 Procedure(s): US OB BPP w non-stress Accession Number(s): [id number] cc: Анна Ha NP; Vidya Jackson [place] [address] Patient Name: SHREYA MARSHALL MRN: [id number] date: 1990 Sex: F Assigned Patient Location: [facility] Current Patient Location: [facility] Accession/Order Number: [id number] Exam Date: 08/04/2024 11:42 Report Date: 08/04/2024 [...] Auguste M.D. 08/04/2024 11:43 AM Dictation Location: [place] [address] Electronically authenticated by: [id number] Y Date: 08/04/2024 11:43 Dictated By: Isatu Auguste M.D. Signed By: 08/04/24 1146 DD/ 1143 TD/TT: Marketing Segment Manager:DELVINadiologosman, Radiologist, - 08/04/2024 [place] [address] Ultrasound Report Signed Patient: SHREYA MARSHALL MR#: [id number] : 1990 Acct:[id number] Age/Sex: 33 / F ADM Date: 08/04/24 Loc: [place] [address]- Attending Dr: Vidya Jackson Ordering Physician: Vidya Jackson Date of Service: 08/04/24 Procedure(s): US OB BPP w non-stress Accession Number(s): [id number] cc: Анна Ha NP; Vidya Jackson [place] [address] Patient Name: SHREYA MARSHALL MRN: [facility] [place]:[id number] date: 1990 Sex: F Assigned Patient Location: [facility] Current Patient Location: [facility] Accession/Order Number: [id number] Exam Date: 08/04/2024 11:42 Report Date: 08/04/2024 [...] Auguste M.D. 08/04/2024 11:43 AM Dictation Location: [place] [address] Electronically authenticated by: [id number] Y Date: 08/04/2024 11:43 Dictated By: Isatu Auguste M.D. Signed By: 08/04/24 1146 DD/ 1143 TD/TT: Marketing Segment Manager: MIRANDA HealthcareRadiology Study observation (narrative)NOMS HealthcareUS OB BPP W NON-STRESSOrdered By: Radiologist Radiology on 30-87-7005VCRB Healthcare Work Phone: Urinalysis macro (dipstick) panel (U)on 08-04-2024 Bilirubin, UANegativeNegative - 4(70) +++ mg/dLNOMS HealthcareBlood, UAPositive Negative - 50 Richy/mcLNOMS HealthcareComment on above:trace-intactClarity, UA ClearNOMS HealthcareColor, UAYellowNOMS HealthcareGlucose, UANegativeNegative - 2000(110) ++++ mg/dLNOMS HealthcareInterpretation and review of laboratory resultsAbnormalNOMS HealthcareKetones, UANegativeNegative - 160(16) ++++ mg/dL N[facility]S HealthcareLeukocytes, UANegativeNegative - 500+++ Tano/mcLNOMS Healthcare Nitrite, UANegativeNegative - PositiveNOMS HealthcarepH, UA75 - 9N[facility]S Healthcare Protein, UANegativeNegative - 2000(20) ++++ mg/dLNOMS HealthcareSpec Grav, UA 1.011 - 1.03NOMS HealthcareUrobilinogen, UA0.20.2 - 12 mg/dLNOMS HealthcareNOMS HealthcareUS OB GROWTHon 06-07-5148HwpT[place] [address] Ultrasound Report Signed Patient: SHREYA MARSHALL MR#: [id number] : 1990 Acct:[id number] Age/Sex: 33 / F ADM Date: 07/28/24 Loc: US Attending Dr: Slava Castro D.O. Ordering Physician: Slava Castro D.O. Date of Service: 07/28/24 Procedure(s): US OB growth Accession Number(s): [id number] cc: Анна Ha NET TRAINER; Slava Castro D.O. [place] [phone] Patient Name: SHREYA MARSHALL MRN: [facility] [place]:[id number] date: 1990 Sex: F Assigned Patient Location: US Current Patient Location: US Accession/Order Number: [id number] Exam Date: 07/28/2024 10:44 Report Date: 07/28/2024 [...] Auguste M.D. 07/28/2024 10:48 AM Dictation Location: [place] [address] Electronically authenticated by: [id number] Y Date: 07/28/2024 10:48 Dictated By: Isatu Auguste M.D. Signed By: 07/28/24 1051 DD/ 1048 TD/TT: Marketing Segment Manager:DELVINadiology, Radiologist, - 07/28/[address] [address] Ultrasound Report Signed Patient: SHREYA MARSHALL MR#: [id number] : 1990 Acct:[id number] Age/Sex: 33 / F ADM Date: 07/28/24 Loc: US Attending Dr: Slava Castro D.O. Ordering Physician: Slava Castro D.O. Date of Service: 07/28/24 Procedure(s): US OB growth Accession Number(s): [id number] cc: Анна Ha NET TRAINER; Slava Castro D.O. [place] [address] Patient Name: SHREYA MARSHALL MRN: [id number] date: 1990 Sex: F Assigned Patient Location: US Current Patient Location: US Accession/Order Number: [id number] Exam Date: 07/28/2024 10:44 Report Date: 07/28/2024 [...] Auguste M.D. 07/28/2024 10:48 AM Dictation Location: [place] [address] Electronically authenticated by: [id number] Y Date: 07/28/2024 10:48 Dictated By: Isatu Auguste M.D. Signed By: 07/28/24 1051 DD/ 1048 TD/TT: Marketing Segment Manager: [facility] [employer]Radiology Study observation (narrative)[facility] HOSPITALGuokang Health Management OB GROWTHOrdered By: Radiologist Radiology on 73-37-8973YOIM [employer] Work Phone: GLUCOSE TOLERANCE 3 HOURon 64-58-0862DVUHSWT TOLERANCE 3 HOURHighmg/dLNOAZ HealthcareComment on above:GLU FAST 97H (<95) Col: 07/23/24 0909 GLU 1HR 151 (<180) Col: 07/23/24 1013 GLU 2HR 151 (<155) Col: 07/23/24 1113 GLU 3HR 123 (<140) Col: 07/23/24 1213 Interpretation and review of laboratory resultsAbnormalSaint John's Saint Francis HospitalCLINISYNC [facility] [place] OB FOLLOW UP TRANSABDOMINAL APPROACHon 67-76-9612LY OB FOLLOW UP TRANSABDOMINAL APPROACHEXAM: US OB FOLLOW UP TRANSABDOMINAL APPROACH HISTORY: [...] II, MD, PHD at 07-Jul-2024 10:00:26 AM [facility] TeleradiologyNormalNot AvailableComment on above:Order Comment: US OB SCAN FOR GROWTH Estimated Date of Delivery: 09/24/24 Gestational Age as of 06/16/2024: 59t6kObnhpaoazp macro (dipstick) panel (U)on 73-43-4808Hmhsfphqy, UANegativeNegative - 4(70) +++ mg/dLNOMS HealthcareBlood, UANegativeNegative - 50 Richy/mcLNOMS HealthcareClarity, UAClearNOMS Healthcare Color, UAYellowNOMS HealthcareGlucose, UANegativeNegative - 2000(110) ++++ mg/dL NOMS HealthcareInterpretation and review of laboratory resultsNormalNOAZ HealthcareKetones, UANegativeNegative - 160(16) ++++ mg/dLNOMS Healthcare Leukocytes, UANegativeNegative - 500+++ Tano/mcLNOMS HealthcareNitrite, UA NegativeNegative - PositiveNOMS HealthcarepH, UA75 - 9NOMS HealthcareProtein, UA NegativeNegative - 2000(20) ++++ mg/dLNOMS HealthcareSpec Grav, UA1.0151 - 1.03 NOMS HealthcareUrobilinogen, UA0.20.2 - 12 mg/dLNOMS HealthcareNOMS Healthcare ALL CBC WITH AUTO DIFFon 49-85-9578QDVQPJZUB ABSOLUTE TNHJ8WQZV Healthcare Basophils/100 WBC (Bld)0.3 %0.2 - 2.0 %NOMS HealthcareEosinophils/100 WBC (Bld) 0.3 %Low0.9 - 7.0 %NOMS HealthcareErythrocyte distribution width (RBC) [Ratio] 12.9 %11.0 - 15.0 %NOMS HealthcareHematocrit (Bld) [Volume fraction]35.5 %Low 36.0 - 48.0 %NOMS HealthcareHemoglobin (Bld) [Mass/Vol]11.6 g/dLLow12.0 - 16.0 g/dLNOMS HealthcareIMMATURE GRANULOCYTES ABS AUTO0.03NOMS HealthcareImmature granulocytes/100 WBC (Bld)0.4 %0.0 - 0.5 %NOMS HealthcareInterpretation and review of laboratory resultsAbnormalNOAZ HealthcareLYMPHOCYTES ABSOLUTE AUTO1.7 NOMS HealthcareLymphocytes/100 WBC (Bld)22.3 %20.5 - 60.0 %[facility] CampusH (RBC) [Entitic mass]30.7 pg26.7 - 34.0 pgNOAZ HealthcareHC (RBC) [Mass/Vol] 32.7 g/dL29.9 - 35.2 g/dLNOAZ HealthcareMCV (RBC) [Entitic vol]93.9 fL81.0 - 99.0 fLNOAZ HealthcareMONOCYTES ABSOLUTE AUTO0.4NOAZ HealthcareMonocytes/100 WBC (Bld)5.5 %1.7 - 12.0 %NOM HealthcareNEUTROPHILS ABSOLUTE AUTO5.3NOMS Healthcare Neutrophils/100 WBC (Bld)71.2 %43.0 - 75.0 %[facility] HealthcarePlatelet mean volume (Bld) [Entitic vol]9.6 fL9.5 - 13.5 fLNOAZ HealthcareTBH EO #0NOMS HealthcareTBH QDF890BCQJ HealthcareTB RBC3.78LowNOAZ HealthcareTBH WBC7.4NOAZ Healthcare CLINISYNCNOAZ HealthcareRECURRENT VAGINITIS (HTRX)on 59-68-6747UAEOSMJCR VAGINAE 0NOMS HealthcareATOPOBIUM VAGINAENot detectedNOMS HealthcareBVAB 2,3 (BACTERIAL VAGINOSIS ASSOCIATED BACTERIA 2, 3); MOBILUNCUS RAB5OJOK HealthcareBVAB 2,3 (BACTERIAL VAGINOSIS ASSOCIATED BACTERIA 2, 3); MOBILUNCUS SPPNot detectedNOMS HealthcareCANDIDA ALBICANS, PARAPSILOSIS, QXQZQJGWQB4JDGV HealthcareCANDIDA ALBICANS, PARAPSILOSIS, TROPICALISNot detectedNOMS HealthcareCANDIDA GLABRATA0 NOMS HealthcareCANDIDA GLABRATANot detectedNOMS HealthcareCANDIDA IRPQPR4JNSP HealthcareCANDIDA KRUSEINot detectedNOMS HealthcareCHLAMYDIA BVRFMITIOHZ4SAZH HealthcareCHLAMYDIA TRACHOMATISNot detectedNOMS HealthcareGARDNERELLA VAGINALIS0 NOMS HealthcareGARDNERELLA VAGINALISNot detectedNOMS HealthcareMEGASPHAERA (TYPES 1, 2)0NOMS HealthcareMEGASPHAERA (TYPES 1, 2)Not detectedNOMS Healthcare MYCOPLASMA HMKWJNOQAF0QOOQ HealthcareMYCOPLASMA GENITALIUMNot detectedNOMS HealthcareNEISSERIA QBFSEAJIIIH5UZPM HealthcareNEISSERIA GONORRHOEAENot detected NOMS HealthcareTRICHOMONAS GXAZICZRF2ZVSK HealthcareTRICHOMONAS VAGINALISNot detectedNOMS HealthcareNOMS HealthcareUrinalysis macro (dipstick) panel (U)on 68-09-0400Wlhbtcqej, UANegativeNegative - 4(70) +++ mg/dLNOMS HealthcareBlood, UANegativeNegative - 50 Richy/mcLNOMS HealthcareClarity, UAClearNOMS Healthcare Color, UAYellowNOMS HealthcareGlucose, UANegativeNegative - 2000(110) ++++ mg/dL NOMS HealthcareInterpretation and review of laboratory resultsNormalNOMS HealthcareKetones, UANegativeNegative - 160(16) ++++ mg/dLNOMS Healthcare Leukocytes, UANegativeNegative - 500+++ Tano/mcLNOMS HealthcareNitrite, UA NegativeNegative - PositiveNOMS HealthcarepH, UA65 - 9NOMS HealthcareProtein, UA NegativeNegative - 2000(20) ++++ mg/dLNOMS HealthcareSpec Grav, UA1.011 - 1.03 NOMS HealthcareUrobilinogen, UA0.20.2 - 12 mg/dLNOMS HealthcareNOMS HealthcareUS OB 14+ WEEKS ANATOMY SCANon 79-28-9632WH OB 14+ WEEKS ANATOMY SCANEXAM: US OB 14+ WEEKS ANATOMY SCAN HISTORY: [...] II, MD, PHD at 11-May-2024 12:36:27 AM [facility] TeleradiologyNormalNot AvailableComment on above:Order Comment: US OB ANATOMY SINGLE W US OB CERVICAL LENGTH Estimated Date of Delivery: 09/24/24 Gestational Age as of 04/07/2024: 81d2jFVEZXJW 1 HOURon 60-58-3869[place] [Mass/Vol]124 mg/dLNINF - 130 mg/dLNOMS HealthcareCLINISYNCNBROOKHAVEN HOSP[facility] Healthcare Urinalysis macro (dipstick) panel (U)on 89-18-1490Ekzptbywl, UANegativeNegative - 4(70) +++ mg/dLNOMS HealthcareBlood, UAPositiveNegative - 50 Richy/mcLNOMS HealthcareComment on above:traceClarity, UAClearNOMS HealthcareColor, UAYellow NOMS HealthcareGlucose, UANegativeNegative - 2000(110) ++++ mg/dLNOMS Healthcare Interpretation and review of laboratory resultsAbnormalNOMS HealthcareKetones, UAPositiveNegative - 160(16) ++++ mg/dLNOMS HealthcareComment on above:15 Leukocytes, UANegativeNegative - 500+++ Tano/mcLNOMS HealthcareNitrite, UA NegativeNegative - PositiveNOMS HealthcarepH, UA75 - 9NOMS HealthcareProtein, UA NegativeNegative - 1999(20) ++++ mg/dLNOMS HealthcareSpec Grav, UA1.021 - 1.03 N[facility]S HealthcareUrobilinogen, UA1.00.2 - 12 mg/dLNOAZ HealthcareNOAZ [facility] Urinalysis macro (dipstick) panel (U)on [id number], UANegativeNegative - 4(70) +++ mg/dLNOAZ HealthcareBlood, UAPositiveNegative - 50 Richy/mcLNOAZ HealthcareComment on above:trace-intactClarity, UAClearNOAZ HealthcareColor, UA YellowNOAZ HealthcareGlucose, UANegativeNegative - 1999(110) ++++ mg/dLJORD[facility] [facility] HealthcareInterpretation and review of laboratory resultsAbBeaumont Hospital Ketones, UANegativeNegative - 160(16) ++++ mg/dLJORDAN [facility] HealthcareLeukocytes, UA NegativeNegative - 500+++ Tano/mcLJORDAN [facility] HealthcareNitrite, UANegativeNegative - PositiveNOAZ HealthcarepH, UA6.55 - 9NOMS HealthcareProtein, UANegativeNegative - 2000(20) ++++ mg/dLNOMS HealthcareSpec Grav, UA1.011 - 1.03NOAZ Healthcare Urobilinogen, UA0.20.2 - 12 mg/dLNOAZ HealthcareNOMS HealthcareBOX TESTon [id number] TEST SENT OUTUNMERCY [facility] [id number] HealthcareBOX2 02/27/24NOAZ HealthcareUNITY BOX CLINISYNCJORDAN [facility]LEY [facility] HealthcareUrine Cultureon [id number] identified Cx Nom (U) No Growth 2 Days PERFORMED BY: [place] [address] PATHOLOGIST INTERNAL CARVER SHEREE MCCARTHY M.D.NormalThe [facility] Physician GroupComment on above: Performed By: #### CUU #### [place] [address] USAHCG ( test) Ql (U)on 56-33-2158Yzoqmqybuesrsu and review of laboratory resultsAbrmWellSpan Chambersburg HospitalPreg Test, UrPositive NegativeNovant Health New Hanover Regional Medical CenterUrinalysis macro (dipstick) panel (U)on 59-61-7666Qjdswlrwl, UAPositiveNegative - 4(70) +++ mg/dLNOMS HealthcareComment on above:smallBlood, UAPositiveNegative - 50 Richy/mcLNOMS HealthcareComment on above:trace-lysedClarity, UAClearNOMS HealthcareColor, UAYellowNOMS Healthcare Glucose, UANegativeNegative - 2000(110) ++++ mg/dLNOMS HealthcareInterpretation and review of laboratory resultsAbnormalNOMS HealthcareKetones, UAPositive Negative - 160(16) ++++ mg/dLNOMS HealthcareComment on above:traceLeukocytes, UA TraceNegative - 500+++ Tano/mcLNOMS HealthcareNitrite, UANegativeNegative - PositiveNOMS HealthcarepH, UA65 - 9NOMS HealthcareProtein, UAPositiveNegative - 2000(20) ++++ mg/dLNOMS HealthcareComment on above:100Spec Grav, UA1.031 - 1.03 NOMS HealthcareUrobilinogen, UA0.20.2 - 12 mg/dLNOMS HealthcareNOAZ Healthcare TBH PREG QUANT HCGon 25-80-7085OME QNGBBQNVFZQI50763mXR/mLNOMS HealthcareComment on above:5-50 0.2-1 WEEK 50-500 1-2 WEEKS 100-5,000 2-3 WEEKS 500-10,000 3-4 WEEKS 1,000-50,000 4-5 WEEKS 10,000-100,000 5-6 WEEKS 15,000-200,000 6-8 WEEKS 10,000-100,000 2-3 MONTHS CLINISYNCNOAZ HealthcareTB PREG QUANT HCGon 00-80-1184LXF ADDLAYLTHJXK25309 mIU/mLNOMS HealthcareComment on above:5-50 0.2-1 WEEK 50-500 1-2 WEEKS 100-5,000 2-3 WEEKS 500-10,000 3-4 WEEKS 1,000-50,000 4-5 WEEKS 10,000-100,000 5-6 WEEKS 15,000-200,000 6-8 WEEKS 10,000-100,000 2-3 MONTHS CLINISYNCNOMS HealthcareTB PREG QUANT HCGon 79-08-8473EHS AFMQCIFXARHD43058 mIU/mLNOMS HealthcareComment on above:5-50 0.2-1 WEEK 50-500 1-2 WEEKS 100-5,000 2-3 WEEKS 500-10,000 3-4 WEEKS 1,000-50,000 4-5 WEEKS 10,000-100,000 5-6 WEEKS 15,000-200,000 6-8 WEEKS 10,000-100,000 2-3 MONTHS CLINISYIANOAZ HealthcareTB PREG QUANT HCGon 46-95-2947IEI KSYYESVOWXFH20284 mIU/mLNOMS HealthcareComment on above:5-50 0.2-1 WEEK 50-500 1-2 WEEKS 100-5,000 2-3 WEEKS 500-10,000 3-4 WEEKS 1,000-50,000 4-5 WEEKS 10,000-100,000 5-6 WEEKS 15,000-200,000 6-8 WEEKS 10,000-100,000 2-3 [facility] HealthcareTB PREG QUANT HCGon 11-81-9288GPJ RNIQGVHZGIFF1934 mIU/mLNOMS HealthcareComment on above:5-50 0.2-1 WEEK 50-500 1-2 WEEKS 100-5,000 2-3 WEEKS 500-10,000 3-4 WEEKS 1,000-50,000 4-5 WEEKS 10,000-100,000 5-6 WEEKS 15,000-200,000 6-8 WEEKS 10,000-100,000 2-3 [facility]S [facility] HealthcareTB PREG QUANT HCGon 28-22-2094YWS IVQZASJDKMOX0186 mIU/mLNOMS HealthcareComment on above:5-50 0.2-1 WEEK 50-500 1-2 WEEKS 100-5,000 2-3 WEEKS 500-10,000 3-4 WEEKS 1,000-50,000 4-5 WEEKS 10,000-100,000 5-6 WEEKS 15,000-200,000 6-8 WEEKS 10,000-100,000 2-3 MON[facility]S [facility] HealthcareTB PREG QUANT HCGon 36-02-9653YOC KXZJYSKBIZZE2546 mIU/mLNOMS HealthcareComment on above:5-50 0.2-1 WEEK 50-500 1-2 WEEKS 100-5,000 2-3 WEEKS 500-10,000 3-4 WEEKS 1,000-50,000 4-5 WEEKS 10,000-100,000 5-6 WEEKS 15,000-200,000 6-8 WEEKS 10,000-100,000 2-3 [facility] [place]TBH PREG QUANT HCGon 73-42-8643CDH GUSWSVRIRDTK956hGB/mL [facility] HealthcareComment on above:5-50 0.2-1 WEEK 50-500 1-2 WEEKS 100-5,000 2-3 WEEKS 500-10,000 3-4 WEEKS 1,000-50,000 4-5 WEEKS 10,000-100,000 5-6 WEEKS 15,000-200,000 6-8 WEEKS 10,000-100,000 2-3 MONTHS [facility]YJORD[facility] HealthcareIGP,APTIMA HPV,AGE GDLNon 70-90-4210IPW GDLN ACOG TESTINGNote.[facility] HealthcareComment on above:TESTS RESULT FLAG UNITS REF RANGE LAB Clinician Provided Cytology Information Source.............Cervix;Endocervix No. of containers..01 ThinPrep Vial Age Algo ACOG Sylvia... 01 FLAG LEGEND: L-Low Normal,H-High Normal,LL-Alert Low,HH-Alert High <-Panic Low,>-Panic High,A-Abnormal,AA-Critical Abnormal Performed at: 01 =[address] [facility] [place] [address] Amber Tilley MD, HPV APTIMANegativeNegativeNOMS HealthcareComment on above:This nucleic acid amplification test detects fourteen high- risk HPV types (16,18,31,33,35,39,45,51,52,56,58,59,66,68) without differentiation. Performed at: = - [facility], [place] [id number] Expeller Operator: Amber Tilley MD, Phone: [phone] Performed at: - [facility], [place] [id number] Expeller Operator: Amber Tilley MD, Phone: [phone] IGP, APTIMA HPV, RFX 16/18,45Note.NOMS HealthcareComment on above:TESTS RESULT FLAG UNITS REF RANGE LAB DIAGNOSIS: 02 NEGATIVE FOR INTRAEPITHELIAL LESION OR MALIGNANCY. REACTIVE CELLULAR CHANGES AND/OR REPAIR ARE PRESENT. Specimen adequacy: 02 Satisfactory for evaluation. Endocervical and/or squamous metaplastic cells (endocervical component) are present. Performed by: 02 Peggy Gandhi, Paper Processing Machine Helper (ASCP) Electronically si... 02 Divya Hoffman MD, [...] High,A-Abnormal,AA-Critical Abnormal Performed at: [address] [place] [address] Amber Tilley MD, BRUSH-SPATULA CERVIX ENDOCERVIX CLINISYNCNOAZ HealthcareCytology Cervical or vaginal smear or scraping studyon 50-96-3948FRCI HealthcareHCG ( test) Ql (U)on 65-02-3896Hfsukeqtetenls and review of laboratory resultsNormalSaint John's Saint Francis HospitalPre Test, UrNegativeNovant Health New Hanover Regional Medical CenterLon 47-54-2384KRobapoli: [id number] Received: 07/01/231304 Status: WEN [place]vall Num: [id number] Spec Type: Surgical Subm Dr: Slava Castro Tissues: A Products of Conception - Spontaneous or Missed (POC) Procedures: HE/3, Gross/Micro L4 Age/ Patient Sex Location Account Attending Physician Shreya Marshall 32/F [facility] [id number] Slava Castro SPEC NUM: [id number] RECD: 07/01/23 STATUS: WEN DUVALL NUM: [id number] [place]: 06/30/[address]: Slava Castro ENTERED: 07/01/23 [facility] DR: Rosey,Lab SPEC TYPE: Surgical DEPT: JENIFER [...] spongy harman tissue consistent with villous tissue. Court Recorder sections are submitted in A1?A3 to include the villous tissue in A1. Clinical history: Missed TW Specimen: [id number] Received: 07/01/23 Status: WEN [place]vall Num: [id number] Spec Type: Surgical Subm Dr: Slava Castro Tissues: A Products of Conception - Spontaneous or Missed (POC) Procedures: HE/3, Gross/Micro L4 Patient: Shreya Marshall [id number] (Continued) Specimen: [id number] Received: 07/01/23 (Continued) Signed (signature on file) Shen Virgen MD 07/02/23 1859 Specimen: [id number] Received: 07/01/23 Status: WEN [place]vall Num: [id number] Spec Type: Surgical Subm Dr: Slava Castro Tissues: A Products of Conception - Spontaneous or Missed (POC) Procedures: , Gross/Micro L4 Patient: Shreya Marshall [id number] (Continued) Specimen: [id number] Received: 07/01/23 (Continued) CPT Codes 80101 Specimen: [id number] Received: 07/01/23-1305 Status: WEN [place]vall Num: [id number] Spec Type: Surgical Subm Dr: Slava Castro Tissues: A Products of Conception - Spontaneous or Missed (POC) Procedures: HE/3, Gross/Micro L4 Patient: Shreya Marshall [id number] (Continued) Signed (signature on file) Shen Virgen MD 07/02/[address] [place] [address] Physician GroupCovid-19 PCR (CVDTBH)on 02-20-2022 SARS-CoV-2 (COVID-19) RNA JUAN+probe Ql (Unsp spec)Not detectedNormalNOT DETECTED The [facility] Generalment on above:Result Comment: This test is not yet approved or cleared by the [place] FDA. When there are no FDA-approved or cleared tests available, and other criteria are met, FDA can make tests available under an emergency access mechanism called an Emergency Use Authorization (EUA). The EUA for this test is supported by the [place] of Health and Human Service's (HHS's) declaration [...] of clinical signs and symptoms consistent with SARS-CoV-2.Performed By: #### CVDTBH #### [facility] [address] [place] [address] Dr. Luis Johnson AND [facility] 37-65-5633VVOKREQPKMJNUGrant HospitalComment on above:Result Comment: Negative for Flu B protein antigen. Infection due to Flu B cannot be ruled out. FluB antigen in the sample may be below the detection limit of the test.Performed By: #### INFLUAB #### [facility] [address] [place] [address] Dr. Luis Johnson AGPositiveAbnormalNEGATIVE SEE COMMENTThe [facility] Clinic Akron Generalment on above:Performed By: #### INFLUAB #### [facility] [address] [place] [address] Dr. Luis Junior AGNegativeNormalNEGATIVE SEE COMMENTThe [facility] HospitalComment on above:Performed By: #### INFLUAB #### [facility] [address] [place] [address] Dr. Luis VirgenXR CHEST 1 Von [id number] CHEST 1 VEXAM: CHEST 1 VIEW HISTORY: COUGH TECHNIQUE: Chest, one view. COMPARISON: None. FINDINGS: Lungs are clear. No focal consolidation, pleural effusion, or pneumothorax. Pulmonary vasculature is within normal limits. Cardiomediastinal silhouette is normal. IMPRESSION: 1. No acute cardiopulmonary disease. Electronically authenticated by: PHOEBE ALFARO Date: 2022-02-20 17:46NoMercy Health St. Anne HospitalOG PANEL 2: 28 to 65on 11-13-2021..NormalThe [facility] on above:Result Comment: Performed at: WBPerformed By: #### [id number] #### [facility] [address] [place] [address] Dr. Luis VirgenAge Gdln ACOG Bawjjai91-28DuicerNapPremier Health Upper Valley Medical CenterComment on above:Performed By: #### [id number] #### [facility] [address] [place] [address] Dr. Luis VirgenDIAGNOSIS:CommentMercer County Community Hospital on above: Result Comment: NEGATIVE FOR INTRAEPITHELIAL LESION OR MALIGNANCY. Performed at: WBPerformed By: #### [id number] #### [facility] [address] [place] [address] Dr. Luis VirgenHPV AptimaNegativeNormalNegativeSt. Vincent HospitalComascension st. [facility] on above:Result Comment: This nucleic acid amplification test detects fourteen high-risk HPV types (16,18,31,33,35,39,45,51,52,56,58,59,66,68) without differentiation. Performed at: =GPerformed By: #### [id number] #### [facility] [address] [place] [address] Dr. Luis VirgenMethodology:CommentMercer County Community Hospital on above: Result Comment: This liquid based ThinPrep(R) pap test was screened with the use of an image guided system. Performed at: WBPerformed By: #### [id number] #### [facility] [address] [place] [address] Dr. Luis VirgenNote:CommentMercer County Community Hospital on above:Result Comment: The Pap smear is a screening test designed to aid in the detection of premalignant and malignant conditions of the uterine cervix. It is not a diagnostic procedure and should not be used as the sole means of detecting cervical cancer. Both false-positive and false-negative reports do occur. . Performed at: WBPerformed By: #### [id number] #### [facility] [address] [place] [address] Dr. Luis VirgenPerformed by:CommentMercer County Community Hospital on above: Result Comment: Rolando Del Cid Paper Processing Machine Helper (ASCP) Performed at: WBPerformed By: #### [id number] #### [facility] [address] [place] [address] Dr. Luis VirgenSpecimeramona adequacy:CommentMercer County Community Hospital on above:Result Comment: Satisfactory for evaluation. Endocervical and/or squamous metaplastic cells (endocervical component) are present. Performed at: WBPerformed By: #### [id number] #### [facility] [address] [place] [address] Dr. Luis VirgenPREGNANCY URon 20-08-5347FYJMGSIKM, QUALNegativeNormalNEGATIVEThe [facility] on above:Performed By: #### PREGU #### [facility] [address] [place] [address] Dr. Luis Silver AUTO DIFFon 30-04-1919TRCZ #0.0 103/ulNormal0.0-0.1The [facility] on above:Performed By: #### CBC #### [facility] [address] [place] [address] Dr. Luis VirgenBasophils/100 WBC (Bld)0.3 %Normal0.2-2.0The [facility] Comment on above:Performed By: #### CBC #### [facility] [address] [place] [address] Dr. Luis Galeas #0.0 103/ulNormal0.0-0.7The [facility] on above: Performed By: #### CBC #### [facility] [address] [place] [address] Dr. Luis Starkosinophils/100 WBC (Bld)0.3 %Critically low0.9-7.0The [facility] HospitalComment on above:Performed By: #### CBC #### [facility] [address] [place] [address] Dr. Luis Starkrythrocyte distribution width (RBC) [Ratio]12.6 %Ochcqi47.0-15.0 The [facility] HospitalComment on above:Performed By: #### CBC #### [facility] [address] [place] [address] Dr. Luis VirgenHematocrit (Bld) [Volume fraction]41.5 %Rhfwdn22.0-48.0The [facility] HospitalComment on above:Performed By: #### CBC #### [facility] [address] [place] [address] Dr. Lusi VirgenHemoglobin (Bld) [Mass/Vol]13.5 g/yXGkxktm30.0-16.0The [facility] on above:Performed By: #### CBC #### [facility] [address] [place] [address] Dr. Luis Perkins #0.03 10e3/ulNormal0.00-0.03The [facility] on above:Performed By: #### CBC #### [facility] [address] [place] [address] Dr. Luis Perkins %0.4 %Normal0.0-0.5The [facility] HospitalCom[facility] on above: Performed By: #### CBC #### [facility] [address] [place] [address] Dr. Luis GarciaH #2.4 103/ulNormal1.2-3.8The [facility]Com[facility] on above:Performed By: #### CBC #### [facility] [address] [place] [address] Dr. Luis Alfordmphocytes/100 WBC (Bld)31.8 %Xlvucl20.5-60.0[facility] on above:Performed By: #### CBC #### [facility] [address] [place] [address] Dr. Luis SepulvedaUAL DIFF REQNONormalThe [facility] HospitalComment on above: Performed By: #### CBC #### [facility] [address] [address] [address] Luis Alfaro (RBC) [Entitic mass]30.5 srTtxnre74.7-34.0The [facility] HospitalComment on above:Performed By: #### CBC #### [facility] [address] [place] [address] Dr. Luis Alfaro (RBC) [Mass/Vol]32.5 g/bRFlkiev11.9-35.2The [facility] HospitalComment on above:Performed By: #### CBC #### [facility] [address] [place] [address] Dr. Luis AlfaroV (RBC) [Entitic vol]93.9 kGAjnjyh60.0-99.0The [facility] HospitalComment on above:Performed By: #### CBC #### [facility] [address] [place] [address] Dr. Luis Meza #0.6 103/ulNormal0.3-0.8The [facility] HospitalComment on above:Performed By: #### CBC #### [facility] [address] [place] [address] Dr. Luis Vincentocytes/100 WBC (Bld)7.4 %Normal1.7-12.0The [facility] Comment on above:Performed By: #### CBC #### [facility] [address] [place] [address] Dr. Luis GeUT #4.5 103/ulNormal1.4-6.5The [facility] HospitalComment on above:Performed By: #### CBC #### [facility] [address] [place] [address] Dr. Luis Geutrophils/100 WBC (Bld)59.8 %Aoypoy18.0-75.0The [facility] HospitalComment on above:Performed By: #### CBC #### [facility] [address] [place] [address] Dr. Luis Stoddardlet mean volume (Bld) [Entitic vol]10.0 fLNormal9.5-13.5The Damon HospitalComment on above:Performed By: #### CBC #### [facility] [address] [address] [address] Luis VirgenPLT337 103/ncQvxbrk201-729Ffw [facility]Com[facility] on above: Performed By: #### CBC #### [facility] [address] [address] [address] Luis VirgenRBC4.42 106/ulNormal4.20-5.40The [facility] HospitalComment on above:Performed By: #### CBC #### [facility] [address] [address] [address] Luis VirgenWBC7.6 103/ulNormal4.0-11.0The [facility]Com[facility] on above: Performed By: #### CBC #### [facility] [address] [place] [address] Dr. Luis Leal T4on 23-17-7266Grbt T4 [Mass/Vol]0.91 ng/dLNormal0.76-1.46 The [facility] HospitalComment on above:Performed By: #### FT4 #### [facility] [address] [place] [address] Dr. Luis SarmientoID PROFILEon 18-93-5756BJSG-HDL RATIO NORMSGrant HospitalComment on above:Result Comment: 3.3 - 4.4 LOW RISK 4.4 - 7.1 AVERAGE RISK 7.1 - 11.0 MODERATE RISK >11.0 HIGH RISKPerformed By: #### CMP, TSH, LIPID #### [facility] [address] [place] [address] Dr. Luis VirgenCholesterol [Mass/Vol]154 mg/dLNormal<=200The [facility] Comment on above:Performed By: #### CMP, TSH, LIPID #### [facility] [address] [place] [address] Dr. Luis VirgenCholesterol in HDL [Mass/Vol]35 mg/dLCritically xmo68-25Chz [facility] on above:Performed By: #### CMP, TSH, LIPID #### [facility] [address] [address] [address] Luis VirgenCholesterol in LDL [Mass/Vol]80.8 mg/dLMercer County Community Hospital on above:Performed By: #### CMP, TSH, LIPID #### [facility] [address] [address] [address] Luis Gonzalez.total/Cholesterol in HDL [Mass ratio]4.4 {ratio} NormalThe [facility] HospitalComascension [facility] on above:Performed By: #### CMP, TSH, LIPID #### [facility] [address] [address] [address] Luis Abernathy NORMAL> or = 60 mg/dl - LOW CARDIOVASCULAR RISK <40 mg/dl - HIGH CARDIOVASCULAR RISKMarion HospitalComascension st. joseph hospital on above:Performed By: #### CMP, TSH, LIPID #### [facility] [address] [place] [address] Dr. Luis Mathur CALC NORMALSEE BELOWMarion HospitalComascension st. joseph hospital on above:Result Comment: <100 mg/dl OPTIMAL 100 - 129 mg/dl NEAR OR ABOVE OPTIMAL 130 - 159 mg/dl BORDERLINE HIGH 160 - 189 mg/dl HIGH >190 mg/dl VERY HIGH Performed By: #### CMP, TSH, LIPID #### [facility] [address] [place] [address] Dr. Luis VirgenTriglyceride [Mass/Vol]191 mg/dLCritically high<=150The [facility] on above:Performed By: #### CMP, TSH, LIPID #### [facility] [address] [place] [address] Dr. Luis VirgenVLDL CALC38.2 mg/dLNoPremier Health Upper Valley Medical CenterComascension st. [facility] on above: Performed By: #### CMP, TSH, LIPID #### [facility] [address] [place] [address] Dr. Luis VirgenPROStephanie 14(COMP METB)on 26-02-5588Fqwxhpa [Mass/Vol]4.1 g/dLNormal 3.4-5.0The Rosey HospitalComment on above:Performed By: #### CMP, TSH, LIPID #### [facility] [address] [address] [address] Luis VirgenAlbumin/Globulin [Mass ratio]1.2 {ratio}NormalThe [facility] HospitalComment on above:Performed By: #### CMP, TSH, LIPID #### [facility] [address] [address] [address] Luis AntunezP [Catalytic activity/Vol]73 U/JSgsdyu34-646Qxz [facility] HospitalComment on above:Performed By: #### CMP, TSH, LIPID #### [facility] [address] [address] [address] Luis AntunezT [Catalytic activity/Vol]24 U/PZywepi82-90Hmi [facility] HospitalComment on above:Performed By: #### CMP, TSH, LIPID #### [facility] [address] [address] [address] Luis Neveson gap [Moles/Vol]13.2 mmol/LNormalThe [facility] Comment on above:Performed By: #### CMP, TSH, LIPID #### [facility] [address] [address] [address] Luis VirgenAST [Catalytic activity/Vol]11 U/LCritically uau71-22Szb [facility] Generalment on above:Performed By: #### CMP, TSH, LIPID #### [facility] [address] [address] [address] Luis VirgenBilirubin [Mass/Vol]0.8 mg/dLNormal0.2-1.0The [facility] Comment on above:Performed By: #### CMP, TSH, LIPID #### [facility] [address] [address] [address] Luis VirgenCalcium [Mass/Vol]8.9 mg/dLNormal8.5-10.1The [facility] Comment on above:Performed By: #### CMP, TSH, LIPID #### [facility] [address] [address] [address] Luis VirgenChloride [Moles/Vol]103 mmol/BDfayxt35-514DmuSt. Vincent Hospital Comment on above:Performed By: #### CMP, TSH, LIPID #### [facility] [address] [address] [address] Luis VirgenCO2 [Moles/Vol]27.5 mmol/QYlsayo07.0-32.0The [facility] Comment on above:Performed By: #### CMP, TSH, LIPID #### [facility] [address] [place] [address] Dr. Luis VirgenCreatinine [Mass/Vol]0.71 mg/dLNormal0.55-1.02St. Vincent HospitalComment on above:Performed By: #### CMP, TSH, LIPID #### [facility] [address] [place] [address] Dr. Luis StarkGFR-AF TRISTANIAN>60Normal>=60The [facility] HospitalComment on above:Performed By: #### CMP, TSH, LIPID #### [facility] [address] [place] [address] Dr. Luis StarkGFR-NON AF TRISTANIAN>60Normal>=60The [facility] HospitalComment on above:Performed By: #### CMP, TSH, LIPID #### [facility] [address] [place] [address] Dr. Luis VirgenGlobulin (S) [Mass/Vol]3.5 g/dLNormalThe [facility] HospitalComment on above:Performed By: #### CMP, TSH, LIPID #### [facility] [address] [place] [address] Dr. Luis VirgenGlucose [Mass/Vol]101 mg/qBQwppar64-582Slu [facility] Comment on above:Performed By: #### CMP, TSH, LIPID #### [facility] [address] [place] [address] Dr. Luis VirgenPotassium [Moles/Vol]4.7 mmol/LNormal3.5-5.1The [facility] Comment on above:Performed By: #### CMP, TSH, LIPID #### [facility] [address] [place] [address] Dr. Luis VirgenProtein [Mass/Vol]7.6 g/dLNormal6.4-8.2The [facility] Comment on above:Performed By: #### CMP, TSH, LIPID #### [facility] [address] [place] [address] Dr. Luis VirgenSodium [Moles/Vol]139 mmol/NYcxhyt090-369Mno [facility] Comment on above:Performed By: #### CMP, TSH, LIPID #### [facility] [address] [place] [address] Dr. Luis VirgenUrea nitrogen [Mass/Vol]9.0 mg/dLNormal7.0-18.0The [facility] HospitalComment on above:Performed By: #### CMP, TSH, LIPID #### [facility] [address] [place] [address] Dr. Luis VirgenUrea nitrogen/Creatinine [Mass ratio]12.7 mg/mgNoPremier Health Upper Valley Medical CenterComment on above:Performed By: #### CMP, TSH, LIPID #### [facility] [address] [place] [address] Dr. Luis Cai [id number] uIU/mLNormal0.358-3.740St. Vincent HospitalComment on above:Performed By: #### CMP, TSH, LIPID #### [facility] [address] [place] [address] Dr. Luis Major [facility] BELOWNoPremier Health Upper Valley Medical CenterComment on above: Result Comment: <0.34 UIU/ml HYPERTHYROID 0.34-5.60 UIU/ml EUTHYROID >5.60 UIU/ml HYPOTHYROIDPerformed By: #### CMP, TSH, LIPID #### [facility] [address] [place] [address] Dr. Luis Virgen Vital Signs Date TimeVital SignValuePerforming WobvaggcgCtobzciy59-46-4332 15:15-0400Body mass index (BMI) [Ratio]31.25 kg/g8Penxg Gloria DO Work Phone: [phone] [place], [place] [address]Mupckmquvm53-31-0377 15:15-0400Body .03 kgCorey Gloria DO Work Phone: [facility] HospitalOvwwsyfssd69-21-2681 15:15-0400Diastolic blood nesvvilq94 mm[Hg]Slava Gloria DO Work Phone: [facility] HospitalWxpzacxlwx18-06-2241 15:15-0400Systolic blood mm[Hg]Slava Gloria DO Work Phone: [phone] [place], [place] [address]Mqbxzrwonh42-06-9133 13:29-0400Body mass index (BMI) [Ratio]31.33 kg/m2Amy Coco DESAI Work Phone: [phone] [place], [place] [address]Zygeccrcls62-07-9210 13:29-0400Body wghiob71.21 kgAmy Coco DESAI Work Phone: [facility] HospitalVepxvafxog67-37-0485 13:29-0400Diastolic blood zmaafypl57 mm[Hg]Vidya DESAI Work Phone: [phone] [place], [place] [address]Xripckjgcr30-71-1007 13:29-0400Systolic blood bpcxbifw083 mm[Hg]Vidya DESAI Work Phone: [phone] [place], [place] [address]Pxhdxfknli78-32-7524 09:59-0400Body mass index (BMI) [Ratio]33.78 kg/l3Mbplz Gloria DO Work Phone: [phone])681-[address] [place], [place] [address]Ifofkqhahx97-41-4414 09:59-0400Body yqdlgi54.1 kg Slava Gloria DO Work Phone: [phone] [place], [place] [address]Zmmzjswftb03-64-5712 09:59-0400Diastolic blood elrqnjtm64 mm[Hg]Slava Gloria DO Work Phone: [phone])915-[address] [place], [place] [address]Iyxkbbzohx91-16-0656 09:59-0400Systolic blood dyaqpbhr784 mm[Hg]Slava Gloria DO Work Phone: [phone] [place], [place] [address]Xppsexzwam18-25-3755 12:02-0400Body mass index (BMI) [Ratio]33.47 kg/d3Nmddc Gloria DO Work Phone: [phone])242-[address] [place] [address]-17-2025 12:02-0400Body .34 kgCorey Gloria DO Work Phone: [facility] HospitalBkcursqwcb70-64-2400 12:02-0400Diastolic blood ulxsgewh16 mm[Hg]Slava Gloria DO Work Phone: [place] [address]Hjftvgxbrj67-86-3098 12:02-0400Systolic blood xwpnvypu305 mm[Hg]Slava Gloria DO Work Phone: [facility] HospitalNuellfirri60-69-6944 13:02-0400Body mass index (BMI) [Ratio]33.78 kg/m2Lisa Valz NET TRAINER Work Phone: [place] [address]Wkfpobwdzy06-46-8497 13:02-0400Body temperature 98.01 [degF]Анна Ha NET TRAINER Work Phone: [place] [address]Qzzwvlasft17-31-7010 13:02-0400Body .1 kg Анна Leland NET TRAINER Work Phone: [place] [address]Svbusnavka32-84-2555 13:02-0400Diastolic blood wgjqccyh75 mm[Hg]Анна Valz NET TRAINER Work Phone: [place] [address]Zowzaqnsvr43-92-1126 13:02-0400Heart rate94 /min Анна Leland NET TRAINER Work Phone: [place] [address]Fqokysrvfp74-36-0986 13:02-0400Respiratory rate18 /minLisa Valz NET TRAINER Work Phone: [place] [address]Qevegljcsk70-98-2350 13:02-8431FjL6% (BldA) [Mass fraction]98 %Анна Valz NET TRAINER Work Phone: [place] [address]Rmpnwtyejn11-55-4588 13:02-0400Systolic blood csjjshed085 mm[Hg]Анна Valz NET TRAINER Work Phone: [place] [address]Fxbknupxdy03-80-0102 10:47-0400Body mass index (BMI) [Ratio]33.6 kg/d9Omneu Gloria DO Work Phone: [phone] [place], [place] [address]Ammvtjmugs47-00-0254 10:47-0400Body pjqokl50.65 kgCorey Gloria DO Work Phone: [phone] [place], [place] [address]Byvldwpfah15-07-9129 10:47-0400Diastolic blood ozudiwkp88 mm[Hg]Slava Gloria DO Work Phone: [phone] [place], [place] [address]Jfoxtxujcj96-42-8679 10:47-0400Systolic blood ildsghtt455 mm[Hg]Slava Gloria DO Work Phone: [phone])721-[address] [place], [place] [address]Vjvyjzopwn90-81-0511 09:37-0400Body mass index (BMI) [Ratio]33.07 kg/l1CsmqqkkmCely Carver NET TRAINER Work Phone: [phone])871-[address] [place], [place] [address]Cnszkyzfxc72-24-6700 09:37-0400Body hrsxai95.38 kgCely Carver NET TRAINER Work Phone: [phone] [place], [place] [address]Szjssfdfvx95-66-4478 09:37-0400Diastolic blood mm[Hg]Cely Carver NET TRAINER Work Phone: [phone] [place], [place] [address]Uinixazafc40-67-1444 09:37-0400Systolic blood ticlbkpm949 mm[Hg]Cely Carver NET TRAINER Work Phone: [phone] [place], [place] [address]Apwlttmceq56-08-4459 14:31-0400Body mass index (BMI) [Ratio]32.95 kg/i5Nbfgq Gloria DO Work Phone: [phone] [place], [place] [address]Orsttwrwdl86-82-3415 14:31-0400Body dgipid97.11 kgCorey Gloria DO Work Phone: [phone] [place], [place] [address]Fgyeiniszh06-20-7223 14:31-0400Diastolic blood hfnluqos12 mm[Hg]Slava Gloria DO Work Phone: 1([phone] [place], [place] [address]Qrdvhcnsoo52-89-5798 14:31-0400Systolic blood wpekkxly936 mm[Hg]Slava Gloria DO Work Phone: [phone])662-[address] [place], [place] [address]Rmogtaiizh52-84-5571 14:30-0400Body mass index (BMI) [Ratio]33.14 kg/m2Vidya Jackson PA Work Phone: [phone]-[facility]ly [facility], 1928–[address] HospitalEkjhswtfoo86-86-4283 14:30-0400Body fvrahj17.56 kgVidya Jackson PA Work Phone: [phone])535-[facility]ly [facility], [facility]–[address] HospitalBouyerhyzo49-70-7367 14:30-0400Diastolic blood dlvsaeqh57 mm[Hg]Vidya Jackson PA Work Phone: [phone]-[facility], 1928–[address] HospitalCusttquhda46-16-6104 14:30-0400Systolic blood mm[Hg]Vidya Jackson PA Work Phone: [phone])138-[address] [place], [place] [address]Omdbqtmqxj07-68-5071 14:09-0400Body mass index (BMI) [Ratio]32.69 kg/j9Sumgd Gloria DO Work Phone: [phone])064-[address] [place], [place] [address]Kbjtasdnxu08-50-9753 14:09-0400Body uzgqlj53.47 kgCorey Gloria DO Work Phone: [phone] [place], [place] [address]Ezrhyxvgiq40-62-5188 14:09-0400Diastolic blood ktmxiqfd95 mm[Hg]Slava Gloria DO Work Phone: 1(525)409-[address] [place], [place] [address]Fgcroprsqg85-07-4357 14:09-0400Systolic blood kuwlrdln935 mm[Hg]Slava Gloria DO Work Phone: [phone] [place], [place] [address]Sizksoilas25-13-4111 14:05-0400Body mass index (BMI) [Ratio]32.12 kg/m0VpcsoowdCely Carver NET TRAINER Work Phone: [phone])809-[address] [place], [place] [address]Bvjxpbsglg35-19-3196 14:05-0400Body ktuvcr89.11 kgKrlucy Carver NET TRAINER Work Phone: [phone])731-[address] [place], [place] [address]Hrmytnejdm43-18-5935 14:05-0400Diastolic blood lkomlyyt08 mm[Hg]Cely Carver NET TRAINER Work Phone: [phone] [place], [place] [address]Gpappviihy33-40-6281 14:05-0400Systolic blood colnlbuf998 mm[Hg]Cely Carver NET TRAINER Work Phone: [phone] [place], [place] [address]Qsrjijjaol63-03-4190 15:02-0500Body mass index (BMI) [Ratio]30.8 kg/m2Vidya Jackson PA Work Phone: [facility] HospitalMoljxgossn14-76-6304 15:02-0500Body rifcam77.94 kgVidya Jackson PA Work Phone: [facility] HospitalRdhqfreiea39-72-2286 15:02-0500Diastolic blood xtcxulob23 mm[Hg]Vidya Jackson PA Work Phone: [facility] HospitalCayiodztye21-76-1378 15:02-0500Systolic blood mm[Hg]Vdiya Jackson PA Work Phone: [facility] HospitalJoniprlqhu85-91-5620 14:45-0500Body mass index (BMI) [Ratio]30.63 kg/e4Mktfv Gloria DO Work Phone: [facility] HospitalNnrlquhvds64-39-9625 14:45-0500Body kdndos72.54 kgCorey Gloria DO Work Phone: [facility] HospitalCvovojopnf15-96-4095 14:45-0500Diastolic blood oybkxckt20 mm[Hg]Slava Gloria DO Work Phone: [facility] HospitalGpfrqmwbim09-85-3540 14:45-0500Systolic blood hzysltgl717 mm[Hg]Slava Gloria DO Work Phone: [facility] HospitalVntggykquc14-97-8213 10:34-0500Body mass index (BMI) [Ratio]30.69 kg/m2[facility]12-18-2024 10:34-0500Body dtgoer88.66 kgCrittenton [facility]al [facility]12-18-2024 10:34-0500Diastolic blood aduzhlic19 mm[Hg][facility]12-18-2024 10:34-0500Systolic blood nbbegspn122 mm[Hg][facility]10-16-2024 13:12-0400Body mass index (BMI) [Ratio]30.76 kg/y1Aqtbp Gloria DO Work Phone: [facility] HospitalXnphcsygds40-40-9712 13:12-0400Body .85 kgCorey Gloria DO Work Phone: NO Mwpntzgehi45-32-5536 13:12-0400Diastolic blood nskakmoa76 mm[Hg]Slava Gloria DO Work Phone: NO Ddnaocgghh26-55-4582 13:12-0400Systolic blood umcesuon064 mm[Hg]Slava Gloria DO Work Phone: [facility] Encounters Encounter DateEncounter TypeCare ProviderFacilityStart: 12-15-2024 End: 88-25-7611Ibheuhj encounter procedureCorey Gloria DO Work Phone: [facility] Work Phone: Start: 12-15-2024 End: 17-03-4245Qxdmivwd preventive med est patient 18-39 yrsCorey Gloria DO Work Phone: [facility] OBGYNComment on above:Well woman exam with routine gynecological examStart: 12-15-2024 End: 38-49-8590Tdiynf flowsheetCorey Gloria DO Work Phone: [facility] OBGYNStart: 12-15-2024 End: 82-30-7273Akbxhb flowsheetCorey Gloria DO Work Phone: [facility] OBGYNStart: 10-26-2024 End: 77-53-6801ttzfyjyjksAfb Ramey PA Work Phone: [facility]y OBGYNStart: 10-26-2024 End: 28-22-0577Amltdc-up encounterVidya DESAI Work Phone: [facility]y OBGYNComment on above:6 weeks follow-up ([facility])Start: 09-15-2024 End: 33-74-5563Gvatmncfv Result EncounterCorey Gloria DO Work Phone: noMS External Department UnsolicitedStart: 09-15-2024 End: 82-82-0770Xywxfjudt Result EncounterCorey Gloria DO Work Phone: [facility] External Department UnsolicitedStart: 09-14-2024 End: 82-64-5871Ehgfeh flowsheetCorey Gloria DO Work Phone: [facility] BCP OBStart: 09-14-2024 End: 82-21-3553Erppqq flowsheetCorey Gloria DO Work Phone: [facility] BCP OBStart: 09-14-2024 End: 14-34-5630Rpitnxsob Result EncounterCorey Gloria DO Work Phone: [facility] External Department UnsolicitedStart: 09-14-2024 End: 47-93-3907Omlmyv outpatient visit 15 minutesCorey Gloria DO Work Phone: [facility] Rosey OBGYNComment on above:38 weeks gestation of ([facility]); Third trimester ([facility]); Antepartum multigravida of advanced maternal age ([facility]); SGA (small for gestational age) ([facility]); History of gestational diabetesStart: 09-14-2024 End: 86-82-2167nnlfatrghwUHDHN FAZIONot AvailableStart: 09-12-2024 End: 17-48-9082Kaxublvrl Result EncounterGeneric External Data ProviderNOMS External Department UnsolicitedStart: 09-12-2024 End: 71-52-6853Arpgfrnev Result EncounterGeneric External Data ProviderNOMS External Department UnsolicitedStart: 09-11-2024 End: 99-87-8877Geeqwanex Result EncounterGeneric External Data ProviderNOMS External Department UnsolicitedStart: 09-11-2024 End: 07-38-2081Zjeqclqrj Result EncounterGeneric External Data ProviderNOMS External Department UnsolicitedStart: 09-09-2024 End: 94-91-0740Ohdwocdad Result EncounterGeneric External Data ProviderNOMS External Department UnsolicitedStart: 09-09-2024 End: 18-39-2927Pdnebszqw Result EncounterGeneric External Data ProviderNOMS External Department UnsolicitedStart: 09-09-2024 End: 42-54-7904utdblslprlRLVDR FAZIONot AvailableStart: 09-09-2024 End: 49-91-7714Mwhflz outpatient visit 15 minutesCorey Gloria DO Work Phone: [facility] BCP OBComment on above:37 weeks gestation of ([facility]); Third trimester ([facility]); Antepartum multigravida of advanced maternal age ([facility]); SGA (small for gestational age) ([facility]); History of gestational diabetesStart: 09-07-2024 End: 07-59-8004Imxngw flowsheetLisa Aichholz NET TRAINER Work Phone: [facility] CWM FMStart: 09-07-2024 End: 96-74-8799Oaukgu flowsheetLisa Osmanhholz NET TRAINER Work Phone: [facility] CWM FMStart: 09-07-2024 End: 11-18-5677Ooctlkt encounter statusLisa Leland NET TRAINER Work Phone: [facility] Work Phone: Start: 09-07-2024 End: 83-53-5481Qqstulkk preventive med est patient 18-39 yrsLisa Leland NET TRAINER Work Phone: [facility] CWM FMComment on above:Encounter for wellness examination in adult (Primary Dx); Primary insomniaStart: 09-07-2024 End: 12-08-4464ktobszoumnJKTP OSMANHHOLZNot AvailableStart: 09-02-2024 End: 94-95-7569Vxlaqo flowsheetCorey Gloria DO Work Phone: [facility] BCP OBStart: 09-02-2024 End: 62-41-4354Ryrnzn flowsheetCorey Gloria DO Work Phone: [facility] BCP OBStart: 09-02-2024 End: 48-66-4310Gbnfsigqd Result EncounterGeneric External Data ProviderNOMS External Department UnsolicitedStart: 09-02-2024 End: 45-42-9238Vircxp outpatient visit 15 minutesCorey Gloria DO Work Phone: [facility] BCP OBComment on above:36 weeks gestation of ([facility]); Third trimester ([facility]); History of gestational diabetes; Antepartum multigravida of advanced maternal age ([facility])Start: 09-02-2024 End: 69-79-5512oknjhztsinLTSZJ FAKARTHIKONot AvailableStart: 09-01-2024 End: 26-27-8828Hwyvsuqng Result EncounterVidya DESAI Work Phone: [facility] External Department UnsolicitedStart: 09-01-2024 End: 49-44-9048Bqyrirbjw Result EncounterVidya DESAI Work Phone: [facility] External Department UnsolicitedStart: 08-25-2024 End: 21-90-7103Ptxbptusl Result EncounterGeneric External Data ProviderNOMS External Department UnsolicitedStart: 08-25-2024 End: 80-96-4822Tuowhbeqd Result EncounterGeneric External Data ProviderNOMS External Department UnsolicitedStart: 08-23-2024 End: 40-28-6653ZmhfikOazn Aichholz NET TRAINER Work Phone: [facility] CW FMComment on above:Primary insomniaStart: 08-18-2024 End: 41-65-8885Pxdonf Konstantin Carver NP Work Phone: NOZT BCP OBStart: 08-18-2024 End: 64-08-0435Wmtoqf Konstantin Carver NP Work Phone: [facility] BCP OBStart: 08-18-2024 End: 00-22-1927Zquwhmmfh Result EncounterGeneric External Data ProviderNOMS External Department UnsolicitedStart: 08-18-2024 End: 88-88-8564Attcvd outpatient visit 15 minutesCely Carver NP Work Phone: [facility] BCP OBComment on above:Third trimester ([facility]); 34 weeks gestation of ([facility])Start: 08-18-2024 End: 38-33-1214ejnafxwzngTUVPIRSL EBERLYNot AvailableStart: 08-13-2024 End: 57-74-7169Drilrdgph Result EncounterGeneric External Data ProviderNOMS External Department UnsolicitedStart: 08-13-2024 End: 04-04-1714Vceknuvik Result EncounterGeneric External Data ProviderNOMS External Department UnsolicitedStart: 08-11-2024 End: 13-48-4589Hczundlhf Result EncounterAmy Coco DESAI Work Phone: [facility] External Department UnsolicitedStart: 08-11-2024 End: 19-00-4867Byaqxkhtm Result EncounterAmy Coco DESAI Work Phone: [facility] External Department UnsolicitedStart: 08-04-2024 End: 49-00-4433Jthsfz outpatient visit 15 minutesCorey Gloria DO Work Phone: [facility] BCP OBComment on above:32 weeks gestation of ; Third trimester pregnancyStart: 08-04-2024 End: 06-67-5259pdkztmssrkMEGSH FAZIONot AvailableStart: 08-04-2024 End: 12-88-8090Ldvogjlfr Result EncounterGeneric External Data ProviderNOMS External Department UnsolicitedStart: 08-04-2024 End: 08-41-9694Bukjvhgpv Result EncounterGeneric External Data ProviderNOMS External Department UnsolicitedStart: 07-28-2024 End: 11-86-1047Zzikcqkqb Result EncounterGeneric External Data ProviderNOMS External Department UnsolicitedStart: 07-28-2024 End: 81-42-5535Jmhowqtcb Result EncounterGeneric External Data ProviderNOMS External Department UnsolicitedStart: 07-23-2024 End: 06-30-4098Doagjftal Result EncounterGeneric External Data ProviderNOMS External Department UnsolicitedStart: 07-23-2024 End: 39-23-7540Oybtofzqc Result EncounterGeneric External Data ProviderNOMS External Department UnsolicitedStart: 07-21-2024 End: 71-08-3555Qorslz outpatient visit 15 minutesAmy Coco DESAI Work Phone: [facility] BCP OBComment on above:Third trimester ; 30 weeks gestation of ; History of gestational diabetesStart: 07-21-2024 End: 06-46-4206lxbgjmfrghMAW RAMEYNot AvailableStart: 07-06-2024 End: 65-38-7584Gjajdr outpatient visit 15 minutesCorey Gloria DO Work Phone: [facility] BCP OBComment on above:Third trimester ; 28 weeks gestation of ; Elevated glucose tolerance test; Diabetes mellitus screening; SGA (small for gestational age)Start: 07-06-2024 End: 05-65-3799nwwmldbkggEMPOV FAZIONot AvailableStart: 07-05-2024 End: 16-78-4900Tyhogkvmx Result EncounterGeneric External Data ProviderNOMS External Department UnsolicitedStart: 07-05-2024 End: 48-51-8736Nfxpkkbwy Result EncounterGeneric External Data ProviderNOMS External Department UnsolicitedStart: 06-16-2024 End: 44-96-1415Cbjvzn Konstantin Carver NET TRAINER Work Phone: [facility] BCP OBStart: 06-16-2024 End: 46-29-2408Ulatwv flowsheetCely Carver NET TRAINER Work Phone: [facility] BCP OBStart: 06-16-2024 End: 63-64-1787Felplfcq Result EncounterCorey Gloria DO Work Phone: [facility] External Department UnsolicitedStart: 06-16-2024 End: 43-22-1023Tjetrw outpatient visit 15 minutesCely Carver NET TRAINER Work Phone: [facility] BCP OBComment on above:Second trimester ; 25 weeks gestation of ; Screen for STD (sexually transmitted disease); Diabetes mellitus screening; Antepartum multigravida of advanced maternal ageStart: 06-16-2024 End: 79-06-2919wwcqfaxexsLYVODKQG EBERLYNot AvailableStart: 05-10-2024 End: 94-31-2494mpxdwqaqghJVFSA FAZIONot AvailableStart: 05-10-2024 End: 57-73-3264ohqmncbfeqLQD RAMEYNot AvailableStart: 04-10-2024 End: 94-60-8533Khtmfrfxj Result EncounterGeneric External Data ProviderNOMS External Department UnsolicitedStart: 04-10-2024 End: 36-40-4068Gwmwosfpm Result EncounterGeneric External Data ProviderNOAZ External Department UnsolicitedStart: 04-07-2024 End: 11-59-4487Wnuhbw outpatient visit 15 minutesVidya DESAI Work Phone: [facility] BCP OBComment on above:Need for maternal serum alpha-protein (MSAFP) screening; Diabetes mellitus screening; Screening, , for anatomic survey; Second trimester ; 15 weeks gestation of pregnancyStart: 04-07-2024 End: 15-61-8077ezoqbpbsueFPH RAMEYNot AvailableStart: 04-07-2024 End: 13-75-7712Cvpcsq Hugo DESAI Work Phone: [facility] BCP OBStart: 04-07-2024 End: 00-83-6038Mjkpuy Hugo DESAI Work Phone: [facility] BCP OBStart: 03-10-2024 End: 83-33-4988deyafnipstFCXBS FAZIONot AvailableStart: 03-10-2024 End: 22-27-3902Ovspokyz flow sheetCorey Gloria DO Work Phone: [facility] BCP OBComment on above:11 weeks gestation of ; First trimester pregnancyStart: 03-10-2024 End: 10-79-4257Bcatbj flowsheetCorey Gloria DO Work Phone: [facility] BCP OBStart: 03-10-2024 End: 94-60-5369Ubrpkx flowsheetCorey Gloria DO Work Phone: [facility] BCP OBStart: 02-27-2024 End: 47-03-8514foytrxsmouJmezl FaziTr[facility] Work Phone: Start: 02-27-2024 End: 49-05-6674Bhlgvnro ReferredCorey Gloria DO Work Phone: [facility] Path Spec Rosey HospStart: 02-27-2024 End: 82-95-3165Wlttgjgaw Result EncounterGeneric External Data ProviderNOMS External Department UnsolicitedStart: 02-27-2024 End: 19-42-3797Uqhgveljd Result EncounterGeneric External Data ProviderNOMS External Department UnsolicitedStart: 02-25-2024 End: 47-77-5658ClmcoaUdvu Aichholz NET TRAINER Work Phone: [facility] CWM FMComment on above:Primary insomniaStart: 02-11-2024 End: 23-88-6391dqdnterogvSFQ RAMEYNot AvailableStart: 02-11-2024 End: 02-74-2625Tzriut outpatient visit 5 minutesNoms Bcp Ob Gloria NurseNOMS BCP OBComment on above:GA: 4d1mCdsnx: 02-02-2024 End: 18-81-6399Gnltskpwm Result EncounterGeneric External Data ProviderNOMS External Department UnsolicitedStart: 02-02-2024 End: 15-16-1534Haxpysvdx Result EncounterGeneric External Data ProviderNOMS External Department UnsolicitedStart: 01-31-2024 End: 19-93-5376Wmrutrgoo Result EncounterCorey Gloria DO Work Phone: [facility] External Department UnsolicitedStart: 01-31-2024 End: 92-06-2853Dwviokjnp Result EncounterCorey Gloria DO Work Phone: [facility] External Department UnsolicitedStart: 01-29-2024 End: 16-10-4167Apsfmymvg Result EncounterGeneric External Data ProviderNOMS External Department UnsolicitedStart: 01-29-2024 End: 58-75-2726Ozuqpydlr Result EncounterGeneric External Data ProviderNOMS External Department UnsolicitedStart: 01-27-2024 End: 29-13-2557Ecbiciunu Result EncounterCorey Gloria DO Work Phone: [facility] External Department UnsolicitedStart: 01-27-2024 End: 34-39-6670Idrdgbqkj Result EncounterCorey Gloria DO Work Phone: [facility] External Department UnsolicitedStart: 01-25-2024 End: 08-10-2494Clbpqoqrv Result EncounterGeneric External Data ProviderNOMS External Department UnsolicitedStart: 01-25-2024 End: 79-39-7352Ippxuxbtl Result EncounterGeneric External Data ProviderNOMS External Department UnsolicitedStart: 01-23-2024 End: 13-71-6429Iiwckyjwn Result EncounterGeneric External Data ProviderNOMS External Department UnsolicitedStart: 01-23-2024 End: 64-59-9407Ldnvwaawy Result EncounterGeneric External Data ProviderNOMS External Department UnsolicitedStart: 01-21-2024 End: 01-01-0609Dynwjmgje Result EncounterGeneric External Data ProviderNOMS External Department UnsolicitedStart: 01-21-2024 End: 53-15-0292Zmfvrmdez Result EncounterGeneric External Data ProviderNOMS External Department UnsolicitedStart: 01-19-2024 End: 33-41-7922Tmqrzduni Result EncounterGeneric External Data ProviderNOMS External Department UnsolicitedStart: 01-19-2024 End: 71-48-1861Wxstpfwuf Result EncounterGeneric External Data ProviderNOMS External Department UnsolicitedStart: 12-10-2023 End: 39-02-2271Vlmjsd flowsheetCorey Gloria DO Work Phone: [facility] BCP OBStart: 12-10-2023 End: 88-04-7130Xozfzg flowsheetCorey Gloria DO Work Phone: [facility] BCP OBStart: 12-10-2023 End: 07-14-2998Bbpzqptsj Result EncounterGeneric External Data ProviderNOMS External Department UnsolicitedStart: 12-10-2023 End: 68-34-4169icggqdmarlRIXMR FAZIONot AvailableStart: 12-10-2023 End: 62-65-9146Vkwewed encounter procedureCorey Gloria DO Work Phone: [facility] Work Phone: Start: 12-10-2023 End: 39-08-3114Qqiidcht preventive med est patient 18-39 yrsCorey Gloria DO Work Phone: [facility] BCP OBComment on above:Well woman exam with routine gynecological exam; Missed mensesStart: 52-99-4964Xwzfqwg encounter statusCorey Gloria DO Work Phone: n[facility] HealthcareStart: 06-30-2023 End: 50-90-4829vwqiqdmqsjIZ Dar Brody Work Phone: [facility] Work Phone: Start: 06-30-2023 End: 75-82-2227Fmzgtqpx ReferredMD Dar Brody Work Phone: [facility]-LAB Path Spec Damon HospStart: 02-20-2022 End: 10-21-5372ujkzotrtjlUDX АННА AICHHOLZFacility:E9Hbupg: 11-06-2021 End: 87-11-8233armjtlmosmBG SLAVA FAZIOFacility:E5Tvagz: 08-20-2021 End: 03-65-2578oxxuulsjslPPC АННА AICHHOLZFacility:S8Jxgsg: 08-06-2021 End: 10-29-2977huatwhiovrTAE АННА AICHHOLZFacility:H1 Procedures DateProcedureProcedure DetailPerforming ClinicianStart: 74-89-4418TAG CBC WITH AUTO DIFFCorey Gloria DO Work Phone: Start: 03-42-4770SDB UA (CLEAN/CATCH) OPTOMETRIC TECHNOLOGIST/MICRO IF IND.Slava Gloria DO Work Phone: Start: 82-36-0923Eikep dip stick/tablet rgnt non-auto w/o micrscpCorey Gloria DO Work Phone: Start: 99-27-1928IR OB BPP W NON-STRESSGeneric External Data ProviderStart: 65-94-1115LH OB BPP W NON-STRESSGeneric External Data ProviderStart: 27-94-1757Gqbxg dip stick/tablet rgnt non-auto w/o micrscpCorey Gloria DO Work Phone: Start: 31-45-7483DD OB BPP W NON-STRESSGeneric External Data ProviderStart: 81-95-6397WC OB GROWTHGeneric External Data ProviderStart: 61-66-8508Mvenk dip stick/tablet rgnt non-auto w/o micrscpCorey Gloria DO Work Phone: Start: 73-66-4090YJBVE GP B CULTURE+RFLXGeneric External Data ProviderStart: 94-19-4151HY OB BPP W NON-STRESSAmy Coco DESAI Work Phone: Start: 03-81-1021NJ OB BPP W NON-STRESSGeneric External Data ProviderStart: 36-60-7334XK OB BPP W NON-STRESSGeneric External Data ProviderStart: 76-73-9693VN OB BPP W NON-STRESSGeneric External Data ProviderStart: 89-77-8352JT OB BPP W NON-STRESSAmy Coco DESAI Work Phone: Start: 61-90-8917Isunq dip stick/tablet rgnt non-auto w/o micrscpCorey Gloria DO Work Phone: Start: 25-14-1367BT OB BPP W NON-STRESSGeneric External Data ProviderStart: 77-67-2129BH OB GROWTHGeneric External Data ProviderStart: 94-19-6588CSHKKKJ TOLERANCE 3 HOURCorey Gloria DO Work Phone: Start: 13-37-6097Hwoeg dip stick/tablet rgnt non-auto w/o micrscpCorey Gloria DO Work Phone: Start: 25-08-8281BAM CBC WITH AUTO DIFFMarilua Mehul NET TRAINER Work Phone: Start: 27-32-2006LMVVYRVQM VAGINITIS (HTRX)Slava Gloria DO Work Phone: Start: 80-58-9739Dqnki dip stick/tablet rgnt non-auto w/o micrscpKristina Mehul NET TRAINER Work Phone: Start: 04-20-9552HECNFRQ 1 HOURAmy Coco DESAI Work Phone: Start: 42-80-3645Nkdfk dip stick/tablet rgnt non-auto w/o micrscpAmy Coco DESAI Work Phone: Start: 27-47-4726Jvfgr dip stick/tablet rgnt non-auto w/o micrscpCorey Gloria DO Work Phone: Start: 03-61-9549RNN TESTCorey Gloria DO Work Phone: Start: 50-18-8791Ybhtf dip stick/tablet rgnt non-auto w/o micrscpCorey Gloria DO Work Phone: Start: 61-31-2754VVT PREG QUANT HCGCorey Gloria DO Work Phone: Start: 27-05-7556HLT PREG QUANT HCGGeneric External Data ProviderStart: 28-38-1934DAG PREG QUANT HCGCorey Gloria DO Work Phone: Start: 42-80-1032IQJ PREG QUANT HCGGeneric External Data ProviderStart: 62-84-8102IGL PREG QUANT HCGCorey Gloria DO Work Phone: Start: 38-14-3691GRF PREG QUANT HCGCorey Gloria DO Work Phone: Start: 92-31-4886KEM PREG QUANT HCGCorey Gloria DO Work Phone: Start: 43-79-4768AJM PREG QUANT HCGCorey Gloria DO Work Phone: Start: 41-09-6529Kcbrf test visual color cmprsn methsCorey Gloria DO Work Phone: Start: 43-51-1961ZQU,APTIMA HPV,AGE GDLNCorey Gloria DO Work Phone: Start: 27-57-1026Ylyxhojubze observation [Identifier] in Cervix by Cyto Jennifer Carver NP Work Phone: Start: 58-66-5399Vgoa cerv/vag auto thin layer prep mnl screenCorey Gloria DO Work Phone: Start: 96-24-3392Ouwlkleoupt observation [Identifier] in Cervix by Cyto stainCorey Gloria DO Work Phone: Plan of Treatment DateCare ActivityDetailAuthorStart: 06-48-4628Zxxfgejqw for malignant neoplasm of cervixNOMS HealthcareStart: 21-66-7240Dezihympq for malignant neoplasm of cervixNOMS HealthcareStart: 12-15-2024 End: 46-20-3039Pixvobf encounter procedureNOMS BCP OBComment on above:Arrived Start: 10-26-2024 End: 27-76-6166gdfuenhzax42/02/2025 1:20 PM EDT Visit [facility] [address] [place], [id number] Vidya Jackson PA [address] [place], [place] [address] [facility] OBGYNStart: 09-14-2024 End: 39-33-3525Idyiekh encounter procedureNOMS BCP OBComment on above:Arrived Start: 09-09-2024 End: 42-63-4351Xbbogkr encounter nbfoxomfl30/17/2025 11:50 AM EDT Routine [facility] [address] [place] [phone] Slava Castro DO [address] [place], [place] [address] [facility] OBStart: 09-07-2024 End: 80-81-4557Pomowni encounter ninsgeczj05/15/2025 1:00 PM EDT Office Visit [facility] [address] [place] [phone] Анна Ha NP [address] [place] [address] [facility] FMStart: 09-02-2024 End: 35-19-1970IILSAJR, GROUP B STREP WITH SUSCEPTIBLITYCULTURE, GROUP B STREP WITH SUSCEPTIBLITY Lab Routine Third trimester ([facility]) Expected: 09/02/2024, Expires: 09/02/2025[facility] Work Phone: comment on above:Expected: 09/02/2024, Expires: 09/02/2025Start: 09-02-2024 End: 55-93-4183Szsyppy encounter procedureNOMS BCP OBComment on above:Arrived Start: 08-18-2024 End: 57-52-7547Cckrjvq encounter procedureNOMS BCP OBComment on above:Arrived Start: 08-04-2024 End: 75-68-6517Mmkyqye encounter /11/2025 2:20 PM EDT Routine [facility] [address] [facility] [place] [address] Slava Castro DO [address] [place] [address] [facility] BCP OBStart: 07-21-2024 End: 82-78-2300Doddogy encounter sjrugfneb98/28/2025 2:20 PM EDT Routine [facility] [address] [facility] [place] [address] Vidya Jackson PA [address] [place], [place] [id number] [facility] OBStart: 07-21-2024 End: 27-38-1536BT biophysical profile w non stress testUS biophysical profile w non stress test Imaging Routine History of gestational diabetes Expected: 07/21/2024 (Approximate), Expires: 01/21/2025[facility] Work Phone: comment on above:Expected: 07/21/2024 (Approximate), Expires: 01/21/2025Start: 07-21-2024 End: 20-78-4820AS for pregnancyUS OB follow up transabdominal approach Imaging Routine History of gestational diabetes Expected: 07/21/2024, Expires: 11/21/2024[facility] HealthcareComment on above:Expected: 07/21/2024, Expires: 11/21/2024Start: 07-06-2024 End: 69-03-0869Dmrjtwpbddr of glucose 1 hour after glucose challenge for glucose tolerance testGlucose tolerance, 1 hour Lab Routine Diabetes mellitus screening Expected: 07/06/2024 (Approximate), Expires: 07/06/2025[facility] Work Phone: comment on above:Expected: 07/06/2024 (Approximate), Expires: 07/06/2025Start: 07-06-2024 End: 79-05-3522YR for pregnancyUS OB follow up transabdominal approach Imaging Routine SGA (small for gestational age) Expected: 07/06/2024, Expires: 11/06/2024[facility] HealthcareComment on above:Expected: 07/06/2024, Expires: 11/06/2024Start: 07-06-2024 End: 05-01-9351Yurbajj encounter kewfcbacj21/13/2025 1:50 PM EDT Routine [facility] [address] [place] [address] Slava Castro, DO [address], [facility] BCP OBStart: 07-06-2024 End: 19-85-9830Wpmkodqrzydv / ancillary services tpqainmnli17/13/2025 1:30 PM EDT Ancillary Procedure [facility] [place] [address] [place] [address] [facility] BCP OBStart: 06-16-2024 End: 57-96-4147ANM panel - Blood by Automated countCBC Lab Routine Diabetes mellitus screening Expected: 06/16/2024 (Approximate), Expires: 06/16/2025[facility] HealthcareComment on above:Expected: 06/16/2024 (Approximate), Expires: 06/16/2025Start: 06-16-2024 End: 48-13-2872Swwrzuzibcf of glucose 1 hour after glucose challenge for glucose tolerance testGlucose tolerance, 1 hour Lab Routine Diabetes mellitus screening Expected: 06/16/2024 (Approximate), Expires: 06/16/2025[facility] HealthcareComment on above:Expected: 06/16/2024 (Approximate), Expires: 06/16/2025Start: 06-16-2024 End: 12-32-5784DC for pregnancyUS OB follow up transabdominal approach Imaging Routine Antepartum multigravida of advanced maternal age Expected: 06/16/2024, Expires: 10/16/2024[facility] Work Phone: comment on above:Expected: 06/16/2024, Expires: 10/16/2024Start: 06-16-2024 End: 91-64-1624Oazstoe encounter yjdlivust68/23/2025 1:20 PM EDT Routine [facility] [address] [place] [address] Cely Carver, VÍCTOR [address] [place] [address] [facility]HIGHL[facility] OBComment on above:ArrivedStart: 05-10-2024 End: 46-52-5054Qfeoczx encounter fjaydkobs40/17/2025 2:40 PM EDT Routine [facility] [address] [address] Slava Castro DO [address], [place] [phone] [facility] BCP OBStart: 05-10-2024 End: 04-36-5222Gonbvecwkwqm / ancillary services xmoudopelr14/17/2025 1:30 PM EDT Ancillary Procedure [facility] [address] [place] [address] [facility] BCP OBStart: 04-07-2024 End: 91-45-1112Nrfzlln encounter procedureNOUCSF [facility] OBComment on above:Arrived Start: 04-07-2024 End: 58-47-6884Ushly fetoprotein, maternalAlpha fetoprotein, maternal Lab Routine Need for maternal serum alpha-protein (MSAFP) screening Expected: 04/07/2024 (Approximate), Expires: 05/05/2024[facility] HealthcareComment on above: Expected: 04/07/2024 (Approximate), Expires: 05/05/2024Start: 04-07-2024 End: 40-57-3778Myztxjyarxr of glucose 1 hour after glucose challenge for glucose tolerance testGlucose tolerance, 1 hour Lab Routine Diabetes mellitus screening Expected: 04/07/2024 (Approximate), Expires: 04/07/2025[facility] Work Phone: comment on above:Expected: 04/07/2024 (Approximate), Expires: 04/07/2025Start: 04-07-2024 End: 49-34-1052LR for pregnancyUS OB 14+ weeks anatomy scan Imaging Routine Screening, , for anatomic survey Expected: 04/07/2024, Expires: 04/07/2025[facility] HealthcareComment on above:Expected: 04/07/2024, Expires: 04/07/2025Start: 03-10-2024 End: 90-05-3030Pjbmqqe encounter ttvogvpiy84/15/2025 2:20 PM EST Routine [facility] [address] [facility] [place] [address] Slava Castro, DO [address] [place] [address] [facility] BCP OBStart: 03-02-2024 End: 61-89-8400Udpxclq encounter esiefdiat14/07/2025 9:40 AM EST Office Visit [facility] [address] [place] [address] Анна Ha NP [address] [place] [address] [facility] CWM FMStart: 83-29-0713CdvkcMedina Hospitaltart: 39-29-8343Dwauqtyy identified in Urine by CultureUrine Lutheran Hospitaltart: 02-11-2024 End: 13-42-2939MVG/RhABO/Rh Lab Routine Missed menses , unspecified gestational age Expected: 02/11/2024 (Approximate), Expires: 02/10/2025[facility] HealthcareComment on above:Expected: 02/11/2024 (Approximate), Expires: 02/10/2025Start: 02-11-2024 End: 45-36-4825Witym type and Indirect antibody screen panel - BloodType and screen Lab Routine Missed menses , unspecified gestational age Expected: 02/11/2024 (Approximate), Expires: 02/10/2025[facility] Work Phone: comment on above:Expected: 02/11/2024 (Approximate), Expires: 02/10/2025Start: 02-11-2024 End: 03-54-0483Uykqd of abuse panel - Urine by Screen methodRapid drug screen, urine Lab Routine , unspecified gestational age Encounter for supervision of normal first in first trimester Expected: 02/11/2024 (Approximate), Expires: 02/10/2025[facility] HealthcareComment on above:Expected: 02/11/2024 (Approximate), Expires: 02/10/2025Start: 02-11-2024 End: 36-25-3917LD Pelvis transvaginalUS OB transvaginal Imaging Routine Missed menses Expected: 02/11/2024 (Approximate), Expires: 02/10/2025[facility] Comment on above:Expected: 02/11/2024 (Approximate), Expires: 02/10/2025Start: 02-11-2024 End: 38-82-8689kdtmmatkxr38/18/2024 10:00 AM EST Initial [facility] [address] [place] [address] [place] [address] [facility] OBStart: 02-11-2024 End: 84-72-7762Vgrsubksakpc / ancillary services /18/2024 9:30 AM EST Ancillary Procedure [facility] [address] [place] [address] XQYI [facility] OBStart: 06-45-9186Thmxyjojr for malignant neoplasm of cervixHPV/CotestNOMS HealthcareBacteria identified in Urine by CultureUrine culture Microbiology Routine Missed menses Ordered: 02/11/2024[facility] HealthcareComment on above:Ordered: 4CBC W Auto Differential panel - BloodCBC and differential Lab Routine Missed menses , unspecified gestational age Ordered: 02/11/2024[facility] HealthcareComment on above:Ordered: 02/11/2024HLAMYDIA TRACHOMATIS (GENITO/STI)CHLAMYDIA TRACHOMATIS (GENITO/STI) Lab Routine Screen for STD (sexually transmitted disease) Ordered: 06/16/2024 [facility] HealthcareComment on above:Ordered: 5Cytology Cervical or vaginal smear or scraping studyPap Smear Pathology and Cytology Routine Well woman exam with routine gynecological exam Ordered: 12/10/2023[facility] Work Phone: comment on above:Ordered: 4Cytology Cervical or vaginal smear or scraping studyPap Smear Pathology and Cytology Routine Well woman exam with routine gynecological exam Ordered: 12/15/2024[facility] Work Phone: comment on above:Ordered: 12/15/2024Hemoglobin A1c/Hemoglobin.total in BloodHemoglobin A1c Lab Routine Missed menses , unspecified gestational age Ordered: 02/11/2024[facility] HealthcareComment on above: Ordered: 02/11/2024Hepatitis B virus surface Ag [Presence] in Serum or Plasma by ImmunoassayHepatitis B surface antigen Lab Routine Missed menses , unspecified gestational age Ordered: 02/11/2024[facility] HealthcareComment on above: Ordered: 02/11/2024Hepatitis C virus Ab [Presence] in Serum or Plasma by ImmunoassayHepatitis C antibody Lab Routine Missed menses , unspecified gestational age Ordered: 02/11/2024[facility] HealthcareComment on above:Ordered: 02/11/2024HIV-1/HIV-2 antigen/antibody combination immunoassayHIV-1 and HIV-2 antibodies Lab Routine Missed menses , unspecified gestational age Ordered: 02/11/2024[facility] HealthcareComment on above:Ordered: 02/11/2024Human papilloma virus DNA [Presence] in Unspecified specimen by Probe with amplificationHPV DNA probe, amplified Microbiology Routine Well woman exam with routine gynecological exam Ordered: 12/10/2023[facility] HealthcareComment on above: Ordered: 12/10/2023Human papilloma virus DNA [Presence] in Unspecified specimen by Probe with amplificationHPV DNA probe, amplified Microbiology Routine Well woman exam with routine gynecological exam Ordered: 12/15/2024[facility] Healthcare Comment on above:Ordered: 12/15/2024Neisseria gonorrhoeae DNA [Presence] in Unspecified specimen by JUAN with probe detectionNeisseria gonorrhea DNA probe, direct Lab Routine Screen for STD (sexually transmitted disease) Ordered: 06/16/2024[facility] HealthcareComment on above:Ordered: 06/16/2024Reagin Ab [Presence] in Serum by RPRRPR Lab Routine Missed menses , unspecified gestational age Ordered: 02/11/2024[facility] HealthcareComment on above:Ordered: 02/11/2024ubella antibody, IgGRubella antibody, IgG Lab Routine Missed menses , unspecified gestational age Ordered: 02/11/2024[facility] HealthcareComment on above:Ordered: 02/11/2024SURESWAB(R) ADVANCED VAGINITIS PLUS, TMASURESWAB(R) ADVANCED VAGINITIS PLUS, TMA Pathology and Cytology Routine Screen for STD (sexually transmitted disease) Ordered: 06/16/2024[facility] Work Phone: comment on above:Ordered: 06/16/2024 Immunizations Immunization DateImmunizationNotesCare KpdsqfpmCrsulzev11-77-1081odkwxwohn, seasonal, injectable, preservative freeCorey Gloria DO Work Phone: [facility] Payers DatePayer CategoryPayerPolicy [id number] [id number] Care HMO (unspecified) [employer] [id number] Health [id number] 2023Medicaid (Managed Care)[employer] 1..[id number] .1.011752.3.57[id number] .1.078561.3.57[id number] .1.969845.3.57[id number] .1.254365.3.57[id number] 2.16840.1.538340.3.57[id number] 2.16840.1.892639.3.57[id number] 2.16840.1.354068.3.57[id number] 2.840.1.260056.3.57[id number] 2.0.1.512488.3.57[id number] 2..1.640303.3.57[id number] 2..1.765498.3.57[id number] 2.0.1.998541.3.57[id number] 2..1.180822.3.579.2.[id number] 2..1.646714.3.57[id number] 2..1.568719.3.57[id number] 2.0.1.626600.3.57[id number] 2.0.1.049073.3.57[id number] 2.840.1.303866.3.57[id number] 2.840.1.747790.3.57[id number] 2..840.1.554761.3.57[id number] 2..840.1.847152.3.57[id number] Health InsuranceAet Insurance [id number] [id number] 2..840.1.7[id number] 2..840.1.238334.3.579.2.531 Social History DateTypeDetailFacilityStart: 03-05-2019 End: 51-84-0316Huqdsqj smoking status NHISNever smoked tobacco (finding) [facility]ertart: 18-86-1972Xyh Assigned At BirthFepeconic bay medical centere [facility] Centertart: 83-30-7820Xxthwtr smoking status NHIS Ex-smokerNOMS Healthcare End: 02-48-5872Lssyykw of tobacco useCurrent smokerNOMS Healthcare End: 30-38-1583Gqbuuar of tobacco useCigarette SmokerNOMS HealthcareStart: 08-45-5211Rfvbbqr use and exposureSmokeless tobacco non-userNOMS Healthcare Start: 12-10-2023 End: 27-02-1195Zjbuntrax beverage intakeLifetime non-drinker (finding)[facility] HealthcareStart: 05-19-2023 End: 32-11-3005Bopqybo of Social functionNOMS HealthcareStart: 05-19-2023 End: 93-54-0526Bttezb connection and isolation panelNOMS HealthcareDo you belong to any clubs or organizations such as mormonism groups, unions, fraternal or athletic groups, or school groups?YesNOMS HealthcareAre you now , , , , never or living with a partner?MarriedNOMS HealthcareHow often to you have a drink containing alcohol?NeverNOMS Healthcare Start: 86-00-5307Abk many standard drinks containing alcohol do you have on a typical day?Patient does not drinkNOMS HealthcareHow hard is it for you to pay for the very basics like food, housing, medical care, and heatingNot very hard NOMS HealthcareDo you feel stress - tense, restless, nervous, or anxious, or unable to sleep at night because yourmind is troubled all the time - these days [OSQ]Only a littleNOMS Healthcare(I/We) worried whether (my/our) food would run out before (I/we) got money to buy more.Never trueNOMS HealthcareIn the past 12 months, was there a time when you were not able to pay the mortgage or rent on time?NoNOMS HealthcareStart: 29-69-1599Rspbpjh CommentEx-moderate cigarette smoker (10-19/day)[facility] HealthcareStart: 04-15-4793Sfcasej CommentCaffeine: occasionalNOAZ HealthcareStart: 22-37-4423Lac assigned at birthNot on fileNOAZ HealthcareStart: 02-08-5901Mmpmce identityIdentifies as female gender (finding) [facility] HealthcareStart: 56-26-5299HtssbbcbmANJS HealthcareStart: 60-03-5208Eko Female (finding)[facility] HospitalDo you feel stress - tense, restless, nervous, or anxious, or unable to sleep at night because yourmind is troubled all the time - these days [OSQ]To some extentNOAZ Healthcare Goals DatePatient GoalDesired Activity/StatePersonal health goal Functional Status SsweUamrytypxfVdfrrcXulepzkv08-40-6367Obsjgjt Health Questionnaire 2 item (PHQ- 2) [Reported][facility] Clinical Notes 12-10-2023 to 12-15-2024 Note Date & JeftKlrqMhbwrqud82-71-2568 History of Present illness Narrative* Cely Carver NP - 12/15/2024 3:00 PM EDT Reason for [...] abnormal pap smear PAP SMEAR 03/07/2014 [facility] [place] [facility] Drug Therapy -SVT TONSILLECTOMY 1992 [...] nursing note reviewed. Exam conducted with a rf engineer present. Vitals: Estimated body mass index is 31.25 kg/m as calculated from the following: Height [...] for annual unless needed otherwise. Documented by Cely Carver NP on behalf of: Slava Castro DO documented in this encounterSaint John's Saint Francis HospitalZvjehwinuo26-34-4107 History of Present illness Narrative* GISELLE Cramer - 10/26/2024 1:20 PM EDT Reason for Appointment: Patient ID: [...] abnormal pap smear PAP SMEAR 03/07/2014 [facility] [place] [facility] Drug Therapy -SVT TONSILLECTOMY 1992 [...] & PLAN ICD-10-CM 1. 6 weeks follow-up ([facility]) Z39.2 norethindrone (Micronor) 0.35 MG tablet Post [...] behalf of: GISELLE Cramer documented in this encounterSaint John's Saint Francis HospitalNieagljqml80-55-7646 History of Present illness Narrative* Isatu Vladimir, SUMIT - 09/14/2024 10:00 AM EDT Reason for Appointment: Patient ID: [...] abnormal pap smear PAP SMEAR 03/07/2014 [facility] [place] [facility] Drug Therapy -SVT TONSILLECTOMY 1992 [...] nursing note reviewed. Exam conducted with a rf engineer present. Vitals: Estimated body mass index is 33.78 kg/m as calculated from the following: Height as of 08/31/24: 5' 1 . Weight as of this encounter: 178 lb 12.8 oz. BP: 110/70 Patient's last menstrual period was 12/11/2023. ASSESSMENT & PLAN ICD-10-CM 1. 38 weeks gestation of ([facility]) Z3A.38 POCT urinalysis dipstick manually resulted 2. Third trimester ([facility]) Z34.93 POCT urinalysis dipstick manually resulted 3. Antepartum multigravida of advanced maternal age ([facility]) O09.529 4. SGA (small for gestational age) ([facility]) P05.10 5. History of gestational diabetes Z86.32 [...] of: Slava Castro DO documented in this encounterSaint John's Saint Francis HospitalFpnjnqnlqc18-18-1594 History of Present illness Narrative* Ramandeep Ferguson LPN - 09/09/2024 11:50 AM [...] abnormal pap smear PAP SMEAR 03/07/2014 [facility] [place] [facility] Drug Therapy -SVT TONSILLECTOMY 1992 [...] nursing note reviewed. Exam conducted with a rf engineer present. Vitals: Estimated body mass index is 33.47 kg/m as calculated from the following: Height as of 09/01/23: 5' 1 . Weight as of this encounter: 177 lb 1.9 oz. BP: 120/74 Patient's last menstrual period was 12/11/2023. ASSESSMENT & PLAN ICD-10-CM 1. 37 weeks gestation of ([facility]) Z3A.37 POCT urinalysis dipstick manually resulted 2. Third trimester ([facility]) Z34.93 POCT urinalysis dipstick manually resulted 3. Antepartum multigravida of advanced maternal age ([facility]) O09.529 4. SGA (small for gestational age) ([facility]) P05.10 5. History of gestational diabetes Z86.32 Patient presents today for a routine obstetrics appointment. Patient is currently 37w6d with a Estimated Date of Delivery: 09/24/24. Patient to return to clinic accordingly for routine OB care. Documented by Ramandeep Ferguson LPN. 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 Exam conducted with a rf engineer present. Vitals: Estimated body mass index is 33.6 kg/m as calculated from the following: Height as of 24: 5' 1 . Weight as of this encounter: 177 lb 12.8 oz. BP: 120/70 Patient's last menstrual period was 12/11/2023. ASSESSMENT & PLAN ICD-10-CM 1. 36 weeks gestation of ([facility]) Z3A.36 POCT urinalysis dipstick manually resulted 2. Third trimester ([facility]) Z34.93 POCT urinalysis dipstick manually resulted CULTURE, GROUP B STREP WITH SUSCEPTIBLITY CULTURE, GROUP B STREP WITH SUSCEPTIBLITY 3. History of gestational diabetes Z86.32 4. Antepartum multigravida of advanced maternal age ([facility]) O09.529 Patient is doing well but has [...] of: Slava Castro DO documented in this encounterSaint John's Saint Francis [id number] History of Present illness Narrative* Cely Carver NP - 08/18/2024 9:30 AM EDT [...] abnormal pap smear PAP SMEAR 03/07/2014 [facility] [place] [facility] Drug Therapy -SVT TONSILLECTOMY 1992 [...] nursing note reviewed. Exam conducted with a rf engineer present. Vitals: Estimated body mass index is 33.07 kg/m as calculated from the following: Height as of 24: 5' 1 . Weight as of this encounter: 175 lb. BP: 116/82 Patient's last menstrual period was 12/11/2023. ASSESSMENT & PLAN ICD-10-CM 1. Third trimester ([facility]) Z34.93 2. 34 weeks gestation of ([facility]) Z3A.34 Return OB: Patient presents today for [...] continues with NST/BPPand doing well. Documented by Cely Carver NP on behalf of: Cely Carver NP documented in this encounterSaint John's Saint Francis [id number] History of Present illness Narrative* Isatu Gilbert LPN - 08/04/2024 2:20 PM [...] for wellness examination in adult 09/01/2023 Depression ([facility]) 09/01/2023 Resolved Ambulatory Problems Diagnosis Date Noted Major depressive disorder, single episode, mild (HCC) ([facility]) 09/01/2023 Past Medical History: Diagnosis Date Abnormal Pap smear of cervix 2009 Contraception management Current mild episode of major depressive disorder without prior episode (HCC) ([facility]) Degenerative joint disease of spine Encounter for IUD removal History of abnormal cervical Pap smear [facility] Pap smear of vagina 2012 Overweight (BMI 25.0-29.9) SVT (supraventricular tachycardia) ([facility]) Torn meniscus HISTORY PAST MEDICAL HISTORY SOCIAL HISTORY Past Medical History: Diagnosis Date Abnormal Pap smear of cervix 2009 Contraception management Current mild episode of major depressive disorder without prior episode (HCC) ([facility]) 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 Artis needs to stop with preg. Cat. C [facility] Pap smear of vagina 2012 Overweight (BMI 25.0-29.9) SVT (supraventricular tachycardia) ([facility]) Torn meniscus Social History [...] abnormal pap smear PAP SMEAR 03/07/2014 [facility] [place] [facility] Drug Therapy -SVT TONSILLECTOMY 1992 [...] nursing note reviewed. Exam conducted with a rf engineer present. Vitals: Estimated body mass index is [...] of: Slava Castro DO documented in this encounterSaint John's Saint Francis [id number] History of Present illness Narrative* GISELLE Cramer - 07/21/2024 2:20 PM EDT [...] for wellness examination in adult 09/01/2023 Depression ([facility]) 09/01/2023 Resolved Ambulatory Problems Diagnosis Date Noted Major depressive disorder, single episode, mild (HCC) ([facility]) 09/01/2023 Past Medical History: Diagnosis Date Abnormal Pap smear of cervix 2009 Contraception management Current mild episode of major depressive disorder without prior episode (HCC) ([facility]) Degenerative joint disease of spine Encounter for IUD removal History of abnormal cervical Pap smear [facility] Pap smear of vagina 2012 Overweight (BMI 25.0-29.9) SVT (supraventricular tachycardia) ([facility]) Torn meniscus HISTORY PAST [...] 2012 Overweight (BMI 25.0-29.9) SVT (supraventricular tachycardia) ([facility]) Torn meniscus Social History [...] abnormal pap smear PAP SMEAR 03/07/2014 [facility] [place] [facility] Drug Therapy -SVT TONSILLECTOMY 1992 [...] behalf of: GISELLE Cramer documented in this encounterSaint John's Saint Francis [id number] History of Present illness Narrative* Isatu Gilbert, [employer] - 07/06/2024 1:50 PM EDT Reason for Appointment: Patient ID: [...] for wellness examination in adult 09/01/2023 Depression ([facility]) 09/01/2023 Resolved Ambulatory Problems [...] abnormal pap smear PAP SMEAR 03/07/2014 [facility] [place] [facility] Drug Therapy -SVT TONSILLECTOMY 1992 [...] nursing note reviewed. Exam conducted with a rf engineer present. Vitals: Estimated body mass index is 32.69 kg/m as calculated from the following: Height as of 7/8/24: 5' 1 . Weight as of this [...] of: Slava Castro DO documented in this encounterSaint John's Saint Francis [id number] History of Present illness Narrative* Cely Carver NP - 06/16/2024 1:20 PM EDT Reason for Appointment: Patient ID: [...] Major depressive disorder, single episode, mild (HCC) ([facility]) 09/01/2023 Past Medical History: Diagnosis Date Abnormal Pap smear of cervix 2009 Contraception management Current mild episode of major depressive disorder without prior episode (HCC) ([facility]) Degenerative joint disease of spine Encounter for IUD removal History of abnormal cervical Pap smear [facility] Pap smear of vagina 2012 Overweight (BMI 25.0-29.9) SVT (supraventricular tachycardia) ([facility]) Torn meniscus HISTORY PAST MEDICAL HISTORY SOCIAL HISTORY Past Medical History: Diagnosis Date Abnormal Pap smear of cervix 2009 Contraception management Current mild episode of major depressive disorder without prior episode (HCC) ([facility]) 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 Artis needs to stop with preg. Cat. C [facility] Pap smear of vagina 2012 Overweight (BMI 25.0-29.9) SVT (supraventricular tachycardia) ([facility]) Torn meniscus Social History [...] abnormal pap smear PAP SMEAR 03/07/2014 [facility] [place] [facility] Drug Therapy -SVT TONSILLECTOMY 1992 [...] nursing note reviewed. Exam conducted with a rf engineer present. Vitals: Estimated body mass index is [...] to also have obtained. Patient is going estuardo going on vacation as this was approved through provider previously and patient had been made aware of recommendations for travel. Patient to return to clinic in 2-3 weeks. Documented by Ramandeep Ferguson LPN on behalf of: Cely Carver NP documented in this encounterSaint John's Saint Francis [id number] History of Present illness Narrative* GISELLE Cramer - 04/07/2024 2:20 PM EST Reason for Appointment: Patient ID: Shreya Marshall is a 33 y.o. female who presents for Routine Visit Patient presents today for Return OB appointment. MEDICATIONS Current Outpatient Medications Medication Instructions MV-Min-Fe Fum-FA-DHA ( 1 PO) 1 each, Daily Progesterone 200 mg, Vaginal, Nightly, Insert suppository vaginally every night at bedtime until 12weeks gestation traZODone (DESYREL) 100 mg, Oral, Nightly [...] abnormal pap smear PAP SMEAR 03/07/2014 [facility] [place] [facility] Drug Therapy -SVT TONSILLECTOMY 1992 [...] behalf of: GISELLE Cramer documented in this encounterSaint John's Saint Francis HospitalXikixmpbxm35-14-1015 History of Present illness Narrative* Isatu Gilbert, SUMIT - 03/10/2024 2:20 PM EST Reason for Appointment: Patient ID: Shreya Marshall is a 33 y.o. female who presents for No chief complaint on file. Patient presents today for Return OB appointment. MEDICATIONS Current Outpatient Medications Medication Instructions MV-Min-Fe Fum-FA-DHA ( 1 PO) 1 each, Daily Progesterone 200 mg, Vaginal, Nightly, Insert suppository vaginally every night at bedtime until 12weeks gestation traZODone (DESYREL) 100 mg, Oral, Nightly [...] 2012 Overweight (BMI 25.0-29.9) SVT (supraventricular tachycardia) ([facility]) Torn meniscus HISTORY PAST MEDICAL HISTORY SOCIAL HISTORY Past Medical History: Diagnosis Date Abnormal Pap smear of cervix 2009 Contraception management Current mild episode of major depressive disorder without prior episode (HCC) ([facility]) 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 Artis needs to stop with preg. Cat. C [facility] Pap smear of vagina 2012 Overweight (BMI 25.0-29.9) SVT (supraventricular tachycardia) ([facility]) Torn meniscus Social History [...] abnormal pap smear PAP SMEAR 03/07/2014 [facility] [place] [facility] Drug Therapy -SVT TONSILLECTOMY 1992 [...] nursing note reviewed. Exam conducted with a rf engineer present. Vitals: Estimated body mass index is [...] undercooked meat, and stay away from [facility]. Patient has been consulted regarding any further do's and don'tsof . Patient voiced understanding and all questions and concerns were answered. [facility] pt declined at this time. Orders Placed This Encounter Procedures POCT urinalysis dipstick manually resulted Follow Up: Patient is to return in 4 weeks for routine OB appointment. Documented by Isatu Gilbert LPN on behalf of: Slava Castro DO documented in this encounterSaint John's Saint Francis HospitalPyjnnvdeuq88-18-0563 History of Present illness Narrative* Lynnette Stapleton LPN - 02/11/2024 10:00 AM EST Reason for Appointment: Patient ID: Shreya Marshall [...] abnormal pap smear PAP SMEAR 03/07/2014 [facility] [place] [facility] [place] Drug Therapy -SVT TONSILLECTOMY 1992 [...] drink 6-8 glasses of water a day, eatno raw or undercooked meat, and stay away from [facility]. Patient has also been advised to not change litter boxes and eat 6 small meals a day. Patient has been consulted regarding the do's and don'ts ofpregnancy. Patient was given labs and all questions and concerns were answered. Patient was given [place] to have completed at 10 weeks. Follow Up: Patient is to return in 4 weeks for routine OB appointment. Follow Up: Patient is to have labs drawn at directed and return to office for initial OB appointment with provider. Patient may call office as needed with any concerns or questions. Nurse Visit Completed by: Lynnette Stapleton LPN documented in this encounterSaint John's Saint Francis [id number] History of Present illness Narrative* Isatu Gilbert LPN - 12/10/2023 1:00 PM EDT Reason for Appointment: Patient ID: [...] abnormal pap smear PAP SMEAR 03/07/2014 [facility] [place] [facility] Drug Therapy -SVT TONSILLECTOMY 1992 [...] nursing note reviewed. Exam conducted with a rf engineer present. Vitals: Estimated body mass index is [...] of: Slava Castro DO documented in this encounterNOMS HealthcareEvaluation noteNo assessment information availableCleveland Clinic [facility] Work Phone: Evaluation note* Diagnosis Primary insomnia- Primary Persistent disorder [...] diabetes mellitus SGA (small for gestational age) Aresx-tbz-auuqt without mention of malnutrition, unspecified (weight) documented in this encounter [facility] HealthcareEvaluation note* Diagnosis Primary insomnia- Primary Persistent disorder of initiating or maintaining sleep Obesity (BMI 30-39.9) Encounter for wellness examination in adult- Primary Major depressive disorder, single episode, mild (HCC) ([facility]CC) Major depressive disorder, single episode, mild Primary insomnia Persistent disorder of initiating or maintaining sleep Obesity (BMI 30-39.9) Depression, unspecified depression type ([facility]/HCC) Third trimester state, incidental 30 weeks gestation of History of gestational diabetes Personal history of other genital system and obstetric disorders documented in this encounter [facility]* Diagnosis Primary insomnia- Primary Persistent disorder of initiating or maintaining sleep Obesity (BMI 30-39.9) Encounter for wellness examination in adult- Primary Major depressive disorder, single episode, mild (HCC) ([facility]) Major depressive disorder, single episode, mild Primary insomnia Persistent disorder of initiating or maintaining sleep Obesity (BMI 30-39.9) Depression, unspecified depression type ([facility]) 32 weeks gestation of Third [...] 30-39.9) Depression, unspecified depression type Third trimester ([facility]) state, incidental 34 weeks gestation of ([facility]) documented in this encounter [facility] HealthcareEvaluation [...] unspecified depression type 36 weeks gestation of ([facility]) Third trimester ([facility]) state, incidental History of gestational diabetes Personal history of other genital system and obstetric disorders Antepartum multigravida of advanced maternal age ([facility]) documented in this encounter [facility]Evaluation note* [...] or maintaining sleep 37 weeks gestation of ([facility]) Third trimester ([facility]) state, incidental Antepartum multigravida of advanced maternal age ([facility]) SGA (small for gestational age) ([facility]) Uikzr-jxz-xfpjq without mention of malnutrition, unspecified (weight) History [...] or maintaining sleep 38 weeks gestation of ([facility]) Third trimester ([facility]) state, incidental Antepartum multigravida of advanced maternal age ([facility]) SGA (small for gestational age) ([facility]) Vsknx-rgh-izget without mention of malnutrition, unspecified (weight) History [...] initiating or maintaining sleep 6 weeks follow-up ([facility]) documented in this encounter [facility]* Diagnosis Primary insomnia- Primary Persistent disorder of initiating or maintaining sleep Obesity (BMI 30-39.9) Encounter for wellness examination in adult- Primary Major depressive disorder, single episode, mild Primary insomnia Persistent disorder of initiating or maintaining sleep Obesity (BMI 30-39.9) Depression, unspecified depression type Encounter for wellness examination in adult- Primary Primary insomnia Persistent disorder of initiating or maintaining sleep Well woman exam with routine gynecological exam Routine gynecological examination documented in this encounter [facility] Summary Purpose Family History No Family History Records FoundNo Family History Records FoundNo Family History Records Found Advance Directives Advance Directive Response Recorded Date/ Time Advance Directives No January 3:45am Advance Directive Response Recorded Date/ Time Advance Directives No January 2:45am Additional Source Comments INFORMATION SOURCE (unrecogn ized section and content) DATE CREATED AUTHOR 02/22/2022 [facility] DATE CREATED AUTHOR AUTHOR'S ORGANIZ ATION 03/06/2024 [facility] DATE CREATED AUTHOR AUTHOR'S ORGANIZ ATION 10/27/2024 [facility] EPIC Care Teams (unrecognized sec tion and content) Team Status: Active Member Role Status Dates Dar Brody MD Primary Care Provider Active Team Status: Inactive Member Role Status Dates Dar Brody MD Primary Care Provider Active Start: June 30, 2023 End: June 29orey FazioAttending ProviderActiveStart: June 30, 2023 End: June 30, 2023Team MemberRelationshipSpecialtyStart DateEnd Date Parag Bradley MD [address] [place] [address] PCP - [facility]08/14/22 Анна Ha NP [address] [place] [address] [facility]08/25/23Team MemberRelationshipSpecialtyStart DateEnd Date Parag Bradley MD [address] [place] [address] [facility] - [facility]08/14/22 Анна Ha NP [address] [place] [address] [facility]08/25/23Te MemberRelationshipSpecialtyStart DateEnd Date Parag Bradley MD [address] [place] [address] [facility]08/14/22 Анна Ha NP [address] [place] [address] [facility]08/25/23Team MemberRelationshipSpecialtyStart DateEnd Date Parag Bradley MD [address] [place] [address] [facility]08/14/22 Анна Ha NP [address] [place] [address] [facility]08/25/23Team MemberRelationshipSpecialtyStart DateEnd Date Parag Bradley MD [address] [place] [address] [facility] - [facility]08/14/22 Анна Ha NP [address] [place] [address] [facility]08/25/23Team MemberRelationshipSpecialtyStart DateEnd Date Parag Bradley MD [address] [place] [address] [facility]08/14/22 Анна Ha NP [address] [place] [address] [facility]08/25/23 Team Status: Inactive Member Role Status Dates Slava Castro DO Attending Provider Active Start : February 27, 2024 End: February 27, 2024Team MemberRelationshipSpecialtyStart DateEnd Date Parag Bradley MD [address] [place] [address] [facility]08/14/22 Анна Ha NP [address] [place] [address] [facility]08/25/23Team MemberRelationshipSpecialtyStart DateEnd Date Parag Bradley MD [address] [place] [address] [facility] - [facility]08/14/22 Анна Ha NP [address] [place] [address] [facility]08/25/23Te MemberRelationshipSpecialtyStart DateEnd Date Parag Bradley MD [address] [place] [address] [facility]08/14/22 Анна Ha NP [address] [place] [address] [facility]08/25/23Te MemberRelationshipSpecialtyStart DateEnd Date Parag Bradley MD [address] [place] [address] [facility]08/14/22 Анна Ha NP [address] [place] [address] [facility]08/25/23Te MemberRelationshipSpecialtyStart DateEnd Date Parag Bradley MD [address] [place] [address] [facility]08/14/22 Анна Ha NP [address] [place] [address] [facility]08/25/23Te MemberRelationshipSpecialtyStart DateEnd Date Parag Bradley MD [address] [place] [address] [facility]08/14/22 Анна Ha NP [address] [place] [address] [facility]08/25/23Te MemberRelationshipSpecialtyStart DateEnd Date Parag Bradley MD [address] [place] [address] [facility]08/14/22 Анна Ha NP [address] [place] [address] [facility]08/25/23Te MemberRelationshipSpecialtyStart DateEnd Date Parag Bradley MD [address] [place] [address] [facility]08/14/22 Анна Ha NP [address] [place] [address] [facility]08/25/23Te MemberRelationshipSpecialtyStart DateEnd Date Parag Bradley MD [address] [place] [address] [facility]08/14/22 Анна Ha NP [address] [place] [address] [facility]03/19Team MemberRelationshipSpecialtyStart DateEnd Date Parag Bradley MD [facility]08/14/22 Анна Ha NP [address] [place] [address]03/19Team MemberRelationshipSpecialtyStart DateEnd Date Parag Bradley MD [facility]08/14/22 Анна Ha NP [address] [place] [address]03/19Team MemberRelationshipSpecialtyStart DateEnd Date Parag Bradley MD [facility]08/14/22 Анна Ha NP [address] [place] [address]03/19 Goals (unrecognized section and content) Goals may be documented in a n alternate sectionGoals may be documented in an alternate section Reason for Visit (unrecogniz ed section and content) ReasonCommentsWell Women VisitReasonCommentsAmenorrheaReasonOnset DateComments Med Mjxmet8802/25/2024ReasonCommentsRoutine VisitReasonCommentsMed Refill ReasonCommentsAnnual ExamReasonCommentsPostpartum Care FOR RECORDS PERTAINING TO PATIENTS WHO [...] BE BASED ON THE PRIMARY CLINICAL RECORDS. [employer] provides no warranty or guarantee of the accuracy or completeness of information in this document.
--- OUTSIDE RECORDS SUMMARY | 2024-12-15 20:27 | XMS_ITS | Clinical Summary ---
Author Organization [facility] Healthcare Address [address] [place] [address] Care Team Providers Care Hotel Maid Name Role Phone Parag Bradley MD Primary Care Provider [phone] Анна Ha NP Unavailable [phone] Allergies Active AllergyReactionsCriticalityNoted KuusOdoeibsgQyemt82/02/2023 Powder on gloves Other Reaction(s): rash/itching Medications MedicationSigDispense QuantityRefillsLast FilledStart DateEnd DateStatus traZODone (Desyrel) 100 MG tablet Indications:Primary insomniaTake 1 tablet (100 mg) by mouth at bedtime 30 tablet 5Active norethindrone (Micronor) 0.35 MG tablet Indications:6 weeks follow-up ([facility])Take 1 tablet (0.35 mg) by mouth Daily for 28 days Take 1 tablet by mouth daily 28 tablet 5Active MV-Min-Fe Fum-FA-DHA ( 1 PO) Take 1 each by mouth Daily12/15/2024Discontinued aspirin 81 MG EC tablet Take 81 mg by mouth Daily12/15/2024Discontinued omeprazole (PriLOSEC) [address] capsule Indications:Heartburn during in second trimester ([facility])Take 1 capsule (20 mg) by mouth in the morning. Take before meals. Do not crush or chew.. 30 capsule Discontinued Active Problems ProblemNoted DateDiagnosed DateEncounter for wellness examination in adult 09/01/2023 Assessment & Plan (09/07/2024 1:24 PM EDT): [...] conditions allow) Follow up yearly and prn Qwazwozuju02/08/2024Obesity (BMI 30-39.9)05/26/2023Left wrist pain05/03/2023 Tfjcfutw44/04/2024 Assessment & Plan (09/07/2024 1:24 PM EDT): [...] upcoming appt with OB in about 3 weeksand if they recommend discontinue then we will. States in prior she trial unisom and zincno help Fu in 3 months Supraventricular walmbqclxmu06/15/2020 Resolved Problems ProblemNoted DateDiagnosed DateResolved DateMajor depressive disorder, single episode, mild Encounters DateTypeDepartmentCare YquoSimmrshcvgt90/22/2025 3:00 PM EDTOffice Visit [facility] [address] [place] [address] [place] [address] Slava Castro, DO Well woman exam with routine gynecological exam12/15/2024amboo [place] [address] Slava Castro, 12/08/20242431Wlndst13/06/2025Patient Outreach [facility] [address] [place] [address] Vidya Oliva LPN 11/01/2024Patient Outreach [facility] [address] [place] [address] Vidya Oliva LPN 10/26/2024 1:20 [place] [address] Vidya Sepulveda PA 6 weeks follow-up ([facility])10/20/20242194Frakwz11/11/2025Patient Outreach [facility] [address] [place] [address] Vidya Oliva, LENS CUTTER 09/20/2024bstract [facility] [place] [address] Slava Castro DO 09/16/2024Patient Outreach [facility] [address] [place] [address] Vidya Oliva LPN 09/15/2024linisync Result Encounter NOM[facility] External Department Unsolicited Slava Castro DO 09/14/2024 10:00 [place] [address] Slava Castro DO 38 weeks gestation of ([facility]); Third trimester ([facility]); Antepartum multigravida of advanced maternal age ([facility]); SGA (small for gestational age) ([facility]); History of gestational qwoxvakz83/22/20[place] [address] Slava Castro, DO 5Abstract [facility] [address] [place] [address] Gloria Slava, DO 5Clinisync Result Encounter [facility]OM[facility] External Department Unsolicited Slava Castro, DO 5Bamboo flowsheet [facility] [address] [place] [address] Slava Castro, DO from Last 3 Months Immunizations ImmunizationAdministration DatesNext DueInfluenza, seasonal, injectable, preservative free12/08/2017 Family History Medical HistoryRelationNameCommentsMultiple sclerosisFather's SisterBladder CancerMaternal GrandfatherCOPDMaternal GrandfatherEmphysemaMaternal Grandfather Cervical cancerMaternal GrandmotherHeart diseaseMaternal GrandmotherHypertension MotherLupusMotherOvarian cancerOther 1M. Gr. AuntsMultiple sclerosisOther 2P. Gr. AuntRelationNameStatusCommentsFather's SisterMaternal GrandfatherMaternal GrandmotherMotherOther 1M. Gr. AuntsOther 2P. Gr. Aunt Social History Tobacco UseTypesPacks/DayYears UsedDateSmoking Tobacco: FormerCigarettesQuit: 2015Smokeless Tobacco: Never Tobacco Cessation:Counseling Given: Not Answered Comments:Ex-moderate cigarette smoker (10-19/day) Alcohol UseStandard Drinks/WeekCommentsNever0 (1 standard drink = 0.6 oz pure alcohol)Caffeine: occasionalHumiliation, Afraid, Rape, and Kick questionnaire AnswerDate RecordedWithin the last year, have you been afraid of your partner or ex-partner?08/31/2024Within the last year, have you been humiliated or emotionally abused in other ways by your partner or ex-partner?08/31/2024 Within the last year, have you been [...] week08/31/2024How often do you attend rastafari or catholic services?More than 4 times per year08/31/2024Do you belong to any clubs or organizations such as rastafari groups, unions, fraWelspun Energy or athletic groups, or school groups?Yes08/31/2024How often do you attend meetings of the clubs or organizations you belong to?More than 4 times per year08/31/2024 Are you , , , , never , or living with a partner?Wnmauaf0108/31/2024UDIT-CAnswerDate RecordedQ1: How often do you have a [...] and heating?Not very hard08/31/2024PHQ-2AnswerDate RecordedPatient Health Questionnaire-2 Solmp724[facility] [place] of Occupational Health - Occupational Stress QuestionnaireAnswerDate RecordedDo you feel stress - tense, restless, nervous, or anxious, or unable to sleep at night because yourmind is troubled all the time - these days?To some npount0708/31/2024Exercise Vital Sign AnswerDate RecordedOn average, how many [...] steady place to sleep or slept in [facility] ([facility])?No05/19/2023Housing Stability Vital SignAnswerDate RecordedIn the last 12 months, was there a time when you were not able to pay the mortgage or rent on time?No08/31/2024In the past 12 months, how many times have you moved where you were living? At any time in the past 12 months, were you homeless or living in a group home (including now)?No08/31/2024CommentsNoSex and Gender InformationValue Date RecordedSex Assigned at BirthNot on fileLegal PgzQbaivl82/15/2023 7:11 PM EDTGender ApsroabnJqrqfu47/15/2023 7:11 PM EDTSexual OrientationNot on file Last Filed Vital Signs Vital SignReadingTime TakenCommentsBlood Auurjrus727/7010 3:15 PM EDT Azklx0995 1:02 PM ALEYkvslitgmjb64.7 ??C (98 ??F)09/07/2024 1:02 PM EDT Respiratory Epsk6292 1:02 PM EDTOxygen Brbaqmvlol33%09/07/2024 1:02 PM EDTInhaled Oxygen Concentration--Fgkugg51 kg (165 lb 6.4 oz)12/15/2024 3:15 PM SEBUwgpzm517.9 cm (5' 1 )09/01/2023 10:37 AM EDTBody Mass Index31.25009/01/2023 10:37 AM EDT Plan of Treatment DateTypeDepartmentCare Team (Latest Contact Info)Eknuluptgds19/26/2026 1:00 PM EDTProcedure Visit [facility] [address] [place] [address] Slava Castro, DO [address] [facility] [address] [place] [address] Health MaintenanceDue DateLast DoneCommentsCervical Cancer Lpwddzcdn03/16/2029 HPV/Ilotvm3112/09/2028Pap Smear, 11/25/2022Influenza Vaccine Gfrhkgdyiapy59/15/2018 Goals GoalPatient Goal TypeAssociated ProblemsRecent ProgressPatient-Stated?Author Reminders Care PlanOB RemindersNoOpen Scheduling, Background Procedures Procedure NamePriorityDate/TimeAssociated DiagnosisCommentsALL CBC WITH AUTO JYTZIgcswei78/23/2025 6:23 AM EDT HP CBC WITH PLATELET NO VZNTYAFSGYPZKkiccip14/22/2025 4:45 PM EDT TBH DRUG SCREEN RAPID (URINE)Yokktot2209/14/2024 12:40 PM EDT TBH UA (CLEAN/CATCH) INSURANCE VERIFIER/MICRO IF IND.Vwkzjuv4909/14/2024 12:40 PM EDT POCT URINALYSIS QCXQGIZPHsajosc50/22/2025 10:04 AM EDT 38 weeks gestation of ([facility]) Third trimester ([facility]) PAP DBFKVCmmcdar38/16/2024 12:00 AM EDTfrom Last 3 Months or Most Recently Relevant to Health Maintenance Results * (ABNORMAL) ALL CBC WITH AUTO DIFF (09/15/2024 6:23 AM EDT)ComponentValueRef RangeTest MethodAnalysis TimePerformed AtPathologist SignatureTBH WBC13.1(H) 4.0 - 11.0 10 3/uLTBHTBH RBC4.02(L)4.20 - 5.40 10 6/uLTBHTBH HGB12.312.0 - 16.0 g/dLTBHTBH HCT37.136.0 - 48.0 %TBHTBH MCV92.381.0 - 99.0 fLTBHTBH MCH30.6 26.7 - 34.0 pgTBHTBH MCHC33.229.9 - 35.2 g/dLTBHTBH RDW14.311.0 - 15.0 %TBHTBH QJX639424 - 450 10 3/uLTBHTBH MPV11.09.5 - 13.5 fLTBHNEUTROPHILS PERCENT AUTO 71.743.0 - 75.0 %TBHLYMPHOCYTES PERCENT AUTO19.3(L)20.5 - 60.0 %TBHMONOCYTES PERCENT AUTO8.21.7 - 12.0 %TBHTBH EO %0.2(L)0.9 - 7.0 %TBHBASOPHILS PERCENT AUTO0.20.2 - 2.0 %TBHIMMATURE GRANULOCYTES PCT AUTO0.40.0 - 0.5 %TBH NEUTROPHILS ABSOLUTE AUTO9.4(H)1.4 - 6.5 10 3/uLTBHLYMPHOCYTES ABSOLUTE AUTO 2.51.2 - 3.8 10 3/uLTBHMONOCYTES ABSOLUTE AUTO1.1(H)0.3 - 0.8 10 3/uLTBHTBH EO #0.00.0 - 0.7 10 3/uLTBHBASOPHILS ABSOLUTE AUTO0.00.0 - 0.1 10 3/uLTBHIMMATURE GRANULOCYTES ABS AUTO0.05(H)0.00 - 0.03 10 3/uLTBHSpecimen (Source)Anatomical Location / LateralityCollection Method / VolumeCollection TimeReceived Time 09/15/2024 6:23 AM EDT09/15/2024 6:32 AM EDT Narrative [facility] - 09/15/2024 6:43 AM EDT Authorizing ProviderResult TypeResult StatusCorey Gloria DOCLINISYNCFinal Result Performing OrganizationAddressCity/State/ZIP CodePhone Number [facility] * (ABNORMAL) HMHP CBC WITH PLATELET NO DIFFERENTIAL (09/14/2024 4:45 PM EDT) ComponentValueRef RangeTest MethodAnalysis TimePerformed AtPathologist SignatureTBH WBC12.0(H)4.0 - 11.0 10 3/uLTBHTBH RBC4.534.20 - 5.40 10 6/uLTBH TBH HGB14.012.0 - 16.0 g/dLTBHTBH HCT41.236.0 - 48.0 %TBHTBH MCV90.981.0 - 99.0 fLTBHTBH MCH30.926.7 - 34.0 pgTBHTBH MCHC34.029.9 - 35.2 g/dLTBHTBH RDW 14.311.0 - 15.0 %TBHTBH PZH349022 - 450 10 3/uLTBHTBH MPV11.49.5 - 13.5 fLTBH Specimen (Source)Anatomical Location / LateralityCollection Method / Volume Collection TimeReceived Time09/14/2024 4:45 PM EDT09/14/2024 4:54 PM EDT Narrative [facility] - 09/14/2024 5:02 PM EDT Authorizing ProviderResult TypeResult StatusCorey Gloria DOCLINISYNCFinal Result Performing OrganizationAddressCity/State/ZIP CodePhone Number [facility] * TB UA (CLEAN/CATCH) INSURANCE VERIFIER/MICRO IF IND. (09/14/2024 12:40 PM EDT)ComponentValue Ref RangeTest MethodAnalysis TimePerformed AtPathologist SignatureCOLOR URINE LT. YELLOWYELLOWTBHCLARITY URINECLEARCLEARTBHSPECIFIC GRAVITY URINE1.0101.005 - 1.025TBHPH URINE7.05.0 - 9.0TBHPROTEIN URINENEGATIVENEG/TRACE mg/dLTBH GLUCOSE URINE UANEGATIVENEGATIVE mg/dLTBHBILIRUBIN URINENEGATIVENEGATIVETBH KETONES URINENEGATIVENEGATIVE mg/dLTBHBLOOD URINENEGATIVENEGATIVETBHNITRITE URINENEGATIVENEGATIVETBHUROBILINOGEN URINE0.20.2 - 1.0 EU/dLTBHLEUKOCYTE ESTERASE URINENEGATIVENEGATIVETBHURINE MICROSCOPIC INDICATEDNOTBHSpecimen (Source)Anatomical Location / LateralityCollection Method / VolumeCollection TimeReceived Time09/14/2024 12:40 PM EDT09/14/2024 1:11 PM EDT Narrative [facility] - 09/14/2024 1:18 PM EDT Authorizing ProviderResult TypeResult StatusCorey Gloria DOCLINISYNCFinal Result Performing OrganizationAddressCity/State/ZIP CodePhone Number [facility] * TBH DRUG SCREEN RAPID (URINE) (09/14/2024 12:40 PM EDT)ComponentValueRef Range Test MethodAnalysis TimePerformed AtPathologist SignatureCANNABINOID SCREEN URINENEGATIVENEGATIVETBHPHENCYCLIDINE SCREEN URINENEGATIVENEGATIVETBHCOCAINE SCREEN URINENEGATIVENEGATIVETBHMETHAMPHETAMINES SCREEN URINENEGATIVENEGATIVE TBHOPIATE SCREEN URINENEGATIVENEGATIVETBHAMPHETAMINE SCREEN URINENEGATIVE NEGATIVETBHBENZODIAZEPINES SCREEN URINENEGATIVENEGATIVETBHTRICYCLIC ANTIDEPRESSANT URINENEGATIVENEGATIVETBHMETHADONE SCREEN URINENEGATIVENEGATIVE TBHBARBITURATES SCREEN URINENEGATIVENEGATIVETBHOXYCODONE SCREEN URINENEGATIVE NEGATIVETBHBUPRENORPHINE SCREEN URINENEGATIVENEGATIVETBHComment: DRUG CLASS TEST SYSTEM CUT-OFF CONCENTRATIONS ARE FOLLOWS: AMP (Amphetamine): 500 ng/mL BAR (Barbiturates): 200 ng/mL BZO (Benzodiazepines): 150 ng/mL BUP (Buprenorphine): 10 ng/mL MARLON (Cocaine): 150 ng/mL mAMP (Methamphetamine): 500 ng/mL MTD (Methadone): 200 ng/mL OPI (Opiates): 100 ng/mL OXY (Oxycodone): 100 ng/mL PCP (Phencyclidine): 25 ng/mL THC (Cannabinoids): 50 ng/mL TCA (Trycyclic Antidepressants): 300 ng/mL Specimen (Source)Anatomical Location / LateralityCollection Method / Volume Collection TimeReceived Time09/14/2024 12:40 PM EDT09/15/2024 1:58 AM EDT Narrative [facility] - 09/15/2024 2:10 AM EDT Authorizing ProviderResult TypeResult StatusCorey Gloria DOCLINISYNCFinal Result Performing OrganizationAddressCity/State/ZIP CodePhone Number [facility] * (ABNORMAL) POCT urinalysis dipstick manually resulted (09/14/2024 10:04 AM EDT)ComponentValueRef RangeTest MethodAnalysis TimePerformed AtPathologist SignatureColor, UAYellowClarity, UAClearGlucose, UANegativeNegative - 2000(110) ++++ mg/dLBilirubin, UANegativeNegative - 4(70) +++ mg/dLKetones, UA NegativeNegative - 160(16) ++++ mg/dLSpec Grav, UA1.0201 - 1.03Blood, UA NegativeNegative - 50 Richy/mcLpH, UA7.05 - 9Protein, UAPositiveNegative - 2000(20) ++++ mg/dLComment:30Urobilinogen, UA1.00.2 - 12 mg/dLLeukocytes, UA NegativeNegative - 500+++ Tano/mcLNitrite, UANegativeNegative - Positive Specimen (Source)Anatomical Location / LateralityCollection Method / Volume Collection TimeReceived PsybVaexc26/22/2025 10:04 AM EDT Narrative Authorizing ProviderResult TypeResult StatusCoreosman Castro DOPOINT OF CARE TEST ENTER/EDIT ORDERABLESFinal Result * Pap Smear (12/10/2023 12:00 AM EDT)Specimen (Source)Anatomical Location / LateralityCollection Method / VolumeCollection TimeReceived TimeSwabCervical swab / Unknown Narrative Authorizing ProviderResult TypeResult StatusCorey Gloria DOLAB CYTOLOGY ORDERABLESFinal ResultPerforming OrganizationAddressCity/State/ZIP CodePhone Number EXTERNAL LAB from Last 3 Months or Most Recently Relevant to Health Maintenance Additional Health Concerns Active ProblemsNoted DateDiagnosed DateOB Jprfiglwj40/18/2024 Insurance Care Teams Team MemberRelationshipSpecialtyStart DateEnd Date Parag Bradley MD PCP - [facility]08/14/22 Анна Ha NP [address] [place] [address] PCP - [facility]08/25/23
--- OUTSIDE RECORDS SUMMARY | 2024-12-15 20:27 | XMS_ITS | Clinical Summary ---
Author Organization [facility] Address [address] [place] [address] Care Team Providers Care Chicken Tender Name Role Phone Unavailable Primary Care Provider Unavailabl e Social History Tobacco UseTypesPacks/DayYears UsedDateSmoking Tobacco: Never Assessed CommentsUnknownSex and Gender InformationValueDate RecordedSex Assigned at Not on fileLegal NvrXcjuwv97/29/2022 11:24 PM EDTGender IdentityNot on file Sexual OrientationNot on file Plan of Treatment Not on file
[2024-12-21 16:09] LABS: Age Gdln ACOG Testing Note (.); IGP, Aptima HPV, rfx 16/18,45 Note (.)
== END 2024-12-15 20:23 | disposition home or self-care (01) ==
LOC: LAB 20:22
PROVIDERS: PCP Nurse Practitioner; Visit Provider Obstetrics & Gynecology
DX: Z01.419 Encounter for gynecological examination (general) (routine) without abnormal findings (principal)
CPT/HCPCS: 87624; 88175

== ENCOUNTER 2025-01-24 16:15 | Outpatient (OUT) | payer OTHER, SELFPAY ==
--- OUTSIDE RECORDS SUMMARY | 2021-03-22 11:00 | XMS_ITS | Continuity of Care Document ---
Author Organization [facility] Address [address] [place] [address] Phone Care Team Providers Care Neurology Hospitalist Name Role Phone Tash Sandhu DMD Unavailable Unavailable Allergies, Adverse Reactions, Alerts Substance Reaction Status Criticality No Known Allergies Active No Inform ation Medications Medication Instructions Dosage Effective Dates (start - stop) Status Comments Mirena 20 mcg/24 hours (6 yrs) 52 mg intrauterine device - Active Procedures Procedure Date Nutrit Couns For Control Of [place] Dis Feb Bitewings-three Films Panoramic Film Comp Oral Eval New/estab Patient 2021 Oral Hygiene Instruction Limited Oral Eval Extract; Erupted Th/exposted Rt 021 Extract; Erupted Th/exposted Rt 021 Bitewig-single Film Intraoral-periapical 1st Film Advance Directives Directive Yes / No Effective Date File Name No Information Encounters Encounter Description Practice Location Reason(s) For Visit Diagnoses Date Provider Providers Copied on Encounter [facility], [address] [place] [address], [id number], tel:[phone] Dental Clinic DN (chief complaint) Encounter for screening for dental disorders Edson Bianchi. [address] [place] [address], [id number], [place]. tel:[phone] [facility], [address] [place] [address], [id number], tel:[phone] Dental Clinic Dental New (chief complaint) Encounter for screening for dental disorders Edson Bianchi. [address] [place], [place], [id number], [place]. tel:[phone] Family History Family Member Type Diagnosis Age At Onset Mother Problem Alive and well Father Problem Alive and well Mother Problem Cardiovascular disease Payers Payer name Insurance type Covered libertarian ID Aston jason(s) D Medicaid [facility] [id number] Social History Type Description Quantity Date Captured Comments Alcohol Use Details Unknown Caffeine Use Details Unknown Tobacco Use Status Current non-smoker Smoking Status Never smoker Sex Female Sexual Orientation Straight or heterosexual Gender Identity Female Vital Signs Date / Time: Height Weight BMI Pulse Rate Blood Pressure Temperature Respiratory Rate Body Surface Area Head Circumference Head Circ. Percentile Wt./Castillo. Percentile BMI percentile Pulse Ox Inhaled Ox 4:24 PM 81 /min 131/89 mm[Hg] 98.20 F Chief Complaint And Reason For Visit From encounter dated '03/22/2021 16:00'. DN (chief complaint). Description: DN Reason For Referral Reason For Referral No Information History Of Present Illness Encounter Date Complaint History Of Prese nt Illness DN DN Dental New Dental New Functional Status Date Functional Assessmen t No Information Instructions Date Instruction Additional Infor mation No Information Assessments Type Assessment Date assessment Encounter for screening for dent al disorders Patient Care Teams Name Effective Dates (start - stop) Status Members No Information
--- OUTSIDE RECORDS SUMMARY | 2025-01-24 16:20 | XMS_ITS | Clinical Summary ---
Author Organization [facility] Address [address] [place] [address] Care Team Providers Care Dye Tub Operator Name Role Phone Unavailable Primary Care Provider Unavailabl e Social History Tobacco UseTypesPacks/DayYears UsedDateSmoking Tobacco: Never Assessed CommentsUnknownSex and Gender InformationValueDate RecordedSex Assigned at Not on fileLegal NloSjzvjt15/29/2022 11:24 PM EDTGender IdentityNot on file Sexual OrientationNot on file Plan of Treatment Not on file
--- OUTSIDE RECORDS SUMMARY | 2025-01-24 16:20 | XMS_ITS | Clinical Summary ---
Author Organization [facility] Address [address] [place] [address] Care Team Providers Care Branding Machine Operator Name Role Phone Parag Bradley MD Primary Care Provider [phone] Анна Ha NP Unavailable [phone] Allergies Active AllergyReactionsCriticalityNoted JffwPgwscxbpDvvhm42/02/2023 Powder on gloves Other Reaction(s): rash/itching Medications MedicationSigDispense QuantityRefillsLast FilledStart DateEnd DateStatus traZODone (Desyrel) 100 MG tablet Indications:Primary insomniaTake 1 tablet (100 mg) by mouth at bedtime 30 tablet 5Active norethindrone (Micronor) 0.35 MG tablet Indications:6 weeks follow-up ([facility])Take 1 tablet (0.35 mg) by mouth Daily for 28 days Take 1 tablet by mouth daily 28 tablet 1105Active Active Problems ProblemNoted DateDiagnosed DateEncounter for wellness [...] conditions allow) Follow up yearly and prn Qlwdzrghfl31/08/2024Obesity (BMI 30-39.9)05/26/2023Left wrist pain05/03/2023 Sztfjkez24/04/2024 Assessment & Plan (09/07/2024 1:24 PM EDT): [...] zincno help Fu in 3 months Supraventricular tpiwombdopx32/15/2020 Resolved Problems ProblemNoted DateDiagnosed DateResolved DateMajor depressive disorder, single episode, mild Encounters DateTypeDepartmentCare HdqdWrrcbwuirjb44/05/2025Orders Only [facility] [address] [address] Lynnette Stapleton LPN 12/15/2024 3:00 PM EDTOffice Visit [facility] [address] [place] [address] Slava Castro, DO Well woman exam with routine gynecological exam12/15/2024linisync Result Encounter [facility] External Department Unsolicited Slava Castro, DO 5Bamboo flowsheet [facility] [address] [place] [address] Slava Castro, DO 12/08/20249185Dmycjr74/06/2025Patient Outreach [facility] [address] [place] [address] Vidya Oliva LPN 11/01/2024Patient Outreach [facility] [address] [place] [address] Vidya Oliva LPN 10/26/2024 1:20 PM EDTPostpartum Visit [facility] [address] [place] [address] [place] [phone] Vidya Sepulveda PA 6 weeks follow-up ([facility])from Last 3 Months Immunizations ImmunizationAdministration DatesNext DueInfluenza, [...] relatives?Twice a week08/31/2024How often do you attend anabaptism or church services?More than 4 times per year08/31/2024Do you belong to any clubs or organizations such as anabaptism groups, unions, fraternal or athletic groups, or school groups?Yes08/31/2024How often do you attend meetings of the clubs or organizations you belong to?More than 4 times per year08/31/2024 Are you , , , , never , or living with a partner?Phxwhed4908/31/2024UDIT-CAnswerDate RecordedQ1: How often do you have a [...] and heating?Not very hard08/31/2024PHQ-2AnswerDate RecordedPatient Health Questionnaire-2 [facility]690[facility] of Occupational Health - Occupational Stress QuestionnaireAnswerDate RecordedDo you feel stress - tense, restless, nervous, or anxious, or unable to sleep at night because yourmind is troubled all the time - these days?To some ujhsqn5708/31/2024Exercise Vital Sign AnswerDate RecordedOn average, how many [...] steady place to sleep or slept in [facility] (including now)?No05/19/2023Housing Stability Vital SignAnswerDate RecordedIn the last 12 months, was there a time when you were not able to pay the mortgage or rent on time?No08/31/2024In the past 12 months, how many times have you moved where you were living? At any time in the past 12 months, were you homeless or living in a penitentiary (including now)?No08/31/2024CommentsNoSex and Gender InformationValue Date RecordedSex Assigned at BirthNot on fileLegal TifYrlymn59/15/2023 7:11 PM EDTGender PeolynnfIxnsuf66/15/2023 7:11 PM EDTSexual OrientationNot on file Last Filed Vital Signs Vital SignReadingTime TakenCommentsBlood Jrailrcg571/7010 3:15 PM EDT Nskxj1335 1:02 PM ZALKvncwimnraw23.7 ??C (98 ??F)09/07/2024 1:02 PM EDT Respiratory Omvg8679 1:02 PM EDTOxygen Avwyipxosw96%09/07/2024 1:02 PM EDTInhaled Oxygen Concentration--Hpehvl77 kg (165 lb 6.4 oz)12/15/2024 3:15 PM SPIBppgjq142.9 cm (5' 1 )09/01/2023 10:37 AM EDTBody Mass Index31.25009/01/2023 10:37 AM EDT Plan of Treatment DateTypeDepartmentCare Team (Latest Contact Info)Gzkthcmexhn96/26/2026 1:00 PM EDTProcedure Visit [facility] [address] [address] Slava Castro, DO [address] [facility] [place] [address] Health MaintenanceDue DateLast DoneCommentsCOVID-19 Vaccine ( season) 2024Pap Smear, 12/10/2023, 11/25/2022ervical Cancer Fdqcoxagd30/16/2029HPV/Hwffsh5812/09/2028Influenza OwqsnbjIrxsoiqcybxj58/15/2018 Pneumococcal Vaccine: Pediatrics (0 to 5 Years) and At-Risk Patients (6 to 64 Years)Aged OutNo longer eligible based on patient's age to complete this topic Goals GoalPatient Goal TypeAssociated ProblemsRecent ProgressPatient-Stated?Author Reminders Care PlanOB RemindersNoOpen Scheduling, Background Procedures Procedure NamePriorityDate/TimeAssociated DiagnosisCommentsIGP,APTIMA HPV,AGE NCIHJjuibci68/22/2025 3:03 PM EDT PAP TEST, KUWFXXCBQlofocb22/22/2025 12:00 AM EDTfrom Last 3 Months Results * IGP,APTIMA HPV,AGE GDLN (12/15/2024 3:03 PM EDT)ComponentValueRef RangeTest MethodAnalysis TimePerformed AtPathologist SignatureAGE GDLN ACOG TESTINGNote. TBHComment: ?? TESTS ? RESULT ??FLAG ??UNITS ?REF RANGE ??LAB ?? Clinician Provided Cytology Information ?? Source.............Cervix;Endocervix ?? No. of containers..01 ThinPrep Vial Age Algo ACOG Sylvia... ??30-65 ? 01 ?FLAG LEGEND: ?L-Low Normal,H-High Normal,LL-Alert Low,HH-Alert High <-Panic Low,>-Panic High,A-Abnormal,AA-Critical Abnormal Performed at: 01 =G ?[facility] ?? [address] [place] ??[phone] ?? Amber Tilley MD, IGP, APTIMA HPV, RFX 16/18,45Note.TBHComment: ?? TESTS ? RESULT ??FLAG ??UNITS ?REF RANGE ??LAB DIAGNOSIS: ?02 ?? NEGATIVE FOR INTRAEPITHELIAL LESION OR MALIGNANCY. ?? THIS SPECIMEN WAS RESCREENED PART OF OUR IT ACCOUNT MANAGER PROGRAM. Specimen adequacy: ?02 ?? Satisfactory for evaluation. ??Endocervical and/or squamous metaplastic ?? cells (endocervical component) are present. Performed by: ? 02 ?? Ju Ocampo Wood Pole Treater (ASCP) QC reviewed by: ? 02 ?? Mirna Cameron Wood Pole Treater (ASCP) . ? 02 Note: ? Note ?02 ?? The Pap smear is a screening test designed to aid in the ?? detection of premalignant and malignant conditions of the ?? uterine cervix. ??It is not a diagnostic procedure and ?? should not be used as the sole means of detecting cervical ?? cancer. ??Both false-positive and false-negative reports do ?? occur. Test Methodology: ? Note ?02 ?? This liquid based ThinPrep(R) pap test was interpreted ?? using the HoloGesplan(R) Genius(TM) Cervical Algorithm whole ?? slide imaging system. HPV Genotype Reflex ?? Note ?02 ?? Criteria not met, HPV Genotype not performed. ?FLAG LEGEND: ?L-Low Normal,H-High Normal,LL-Alert Low,HH-Alert High <-Panic Low,>-Panic High,A-Abnormal,AA-Critical Abnormal Performed at: 02 WB ?[facility] [place] ?? [address] [place], [place] ??[address] ?? Amber Tilley MD, HPV APTIMANegativeNegativeTBHComment: This nucleic acid amplification test detects fourteen high- risk HPV types (16,18,31,33,35,39,45,51,52,56,58,59,66,68) without differentiation. Performed at: ??=G - [facility] [address] ??[id number] Data Analysis Intern: Amber Tilley MD, Phone: ??[phone] Performed at: ??WB - [facility] ??[id number] Data Analysis Intern: Amber Tilley MD, Phone: ??[phone] Specimen (Source)Anatomical Location / LateralityCollection Method / Volume Collection TimeReceived Time12/15/2024 3:03 PM EDT1 7:14 AM EDT Narrative [facility] - 12/21/2024 4:09 PM EDT BRUSH-SPATULA CERVIX ENDOCERVIX Authorizing ProviderResult TypeResult StatusCorey Gloria DOLAB BLOOD ORDERABLES Final ResultPerforming OrganizationAddressCity/State/ZIP CodePhone Number [facility] * PAP TEST, EXTERNAL (12/15/2024 12:00 AM EDT) Narrative Authorizing ProviderResult TypeResult StatusFazio Nurse Noms Bcp ObLAB CYTOLOGY ORDERABLESFinal ResultPerforming OrganizationAddressCity/State/ZIP CodePhone Number EXTERNAL LAB from Last 3 Months Additional Health Concerns Active ProblemsNoted DateDiagnosed DateOB Hnvhfnewo66/18/2024 Insurance Care Teams Team MemberRelationshipSpecialtyStart DateEnd Date Parag Bradley MD [address] [place] [address] PCP - [facility]08/14/22 Анна Ha NP [address] [place] [address] PCP - [facility]08/25/23
--- NOTE | 2025-01-24 16:27 | XR_ITS ---
[facility] [place] [address] Patient Name: ROXANNE ROGERS MRN: [id number] date: 1990 Sex: F Assigned Patient Location: [facility] Current Patient Location: [facility] Accession/Order Number: [id number] Exam Date: 01/24/2025 16:23 Report Date: 01/24/2025 22:52 At the request of: SCARLETT MILLAN NP Procedure: XR elbow RT min 3V 3 views right elbow CLINICAL HISTORY: Pain in right elbow, M25.521 COMPARISON: None FINDINGS: No fracture or dislocation. Joint spaces preserved. No significant degenerative change. XR/XR elbow RT min 3V IMPRESSION: Negative acute osseous abnormality. Impression dictated by: Jake Sheets M.D. 01/24/2025 10:52 PM Dictation Location: [place] [address] Electronically authenticated by: [id number] Y Date: 01/24/2025 22:52
--- OUTSIDE RECORDS SUMMARY | 2025-01-24 16:34 | XMS_ITS | CCD ---
Author Organization [facility] CliniSypr Care Team Providers Care Rolls Baker Name Role Phone AICHHOLZ, MARKET DIRECTOR АННА Primary Care Unavailable PAY, DR LIN Admitting Unavailable PAY, DR LIN Attending Unavailable GISELLE RESTREPO Consulting Unavailable GLORIA, DR ORDAZ Admitting Unavailable GLORIA, DR ORDAZ Attending Unavailable AICHHOLZ, MARKET DIRECTOR АННА Primary Care Unavailable GLORIA, DR ORDAZ Consulting Unavailable AICHHOLZ, MARKET DIRECTOR АННА Admitting Unavailable AICHHOLZ, MARKET DIRECTOR АННА Attending Unavailable AICHHOLZ, MARKET DIRECTOR АННА Primary Care Unavailable AICHHOLZ, MARKET DIRECTOR АННА Consulting Unavailable AICHHOLZ, MARKET DIRECTOR АННА Primary Care Unavailable DON, DR BIRD Admitting Unavailable DON, DR BIRD Attending Unavailable GISELLE RESTREPO Consulting Unavailable PHOEBE ALFARO Consulting Unavailable MD Dar Brody Primary Care Provider Slava Castro Attending Provider [phone] Parag Bradley MD Primary Care Provider [phone] Aichholz CENTRAL OFFICE WORKER, Анна Unavailable Slava Castro DO Attending Provider Slava Castro Attending Unavailable Gloria, Slava Admitting Unavailable Dar Brody Primary Care Unavailable Slava Castro Attending Unavailable Gloria, Slava Admitting Unavailable Parag Bradley MD Primary Care Provider Aichholz CENTRAL OFFICE WORKER, Анна Unavailable Aichholz CENTRAL OFFICE WORKER, Анна Unavailable VIDYA SEPULVEDA Attending Unavailable VIDYA SEPULVEDA Referring Unavailable SLAVA CASTRO Attending Unavailable CELY CARVER Attending Unavailable GLORIA SLAVA Referring Unavailable GLORIA, SLAVA Attending Unavailable VIDYA SEPULVEDA Attending Unavailable SLAVA CASTRO Attending Unavailable CELY CARVER Attending Unavailable SLAVA CASTRO Attending Unavailable АННА HA Attending Unavailable SLAVA CASTRO Attending Unavailable SLAVA CASTRO Attending Unavailable VIDYA SEPULVEDA Attending Unavailable SLAVA CASTRO Attending Unavailable SLAVA CASTRO Attending Unavailable Allergies Allergy ClassificationReported Allergen(s)Allergy TypeDate of OnsetReaction(s) Facility (20 sources)OtherPropensity to adverse irlzypjtk78-38-3620[facility] Medications Current Medications MedicationDrug Class(es)DatesSig (Normalized)Sig (Original)levonorgestrel 0.472123 mg/hr intrauterine system (2 sources)Progestin, Progestin-containing Intrauterine DeviceStart: 02-06-2017 Levonorgestrel (Mirena) 20 mcg/24 hr (5 years) Intrauterine Device Active 1 INSERT INTRAUTERI As Directed February 06, 2017 12:00amnaproxen 500 mg oral tablet (2 sources)Nonsteroidal Anti-inflammatory DrugStart: 89-39-1899vdau 1 tablet by mouth twice dailyNaproxen (Naprosyn) 500 mg tablet Active 500 MG PO Twice daily March 05, 2019 12:00amnorethindrone 0.35 mg oral tablet (6 sources)Start: 10-26-2024 End: 29-33-1872wlnh 1 tablet by mouth once daily, then take 1 tablet by mouth once dailynorethindrone (Micronor) 0.35 MG tablet Indications: 6 weeks follow-up ([facility]) Take 1 tablet (0.35 mg) by mouth Daily for 28 days Take 1 tablet by mouth daily 28 tablet 11 10/26/2024 ActiveProgesterone (3 sources)ProgesteroneStart: 02-16-2024 End: 50-51-0738Rpnfcmjshndi Micronized (progesterone, bulk,) powder 02/16/2024 09/07/2024 Discontinued (Therapy completed)Start: 68-76-3147Ttpgttxegjcv Micronized (progesterone, bulk,) powder 02/16/2024 ActiveProgesterone 200 MG suppository (18 sources)Start: 01-19-2024 End: 83-88-0140Hjmozzicgnit 200 MG suppository Indications: History of miscarriage Insert 200 mg into the vagina at bedtime Insert suppository vaginally every night at bedtime until 12 weeks gestation 30 suppository 2 01/19/2024 04/18/2024 ActivetraZODone hydrochloride 100 mg oral tablet (20 sources)Serotonin Reuptake InhibitorStart: 02-26-2024 End: 72-87-8645zebg 1 tablet by mouth at bedtimetraZODone (Desyrel) 100 MG tablet Indications: Primary insomnia Take 1 tablet (100 mg) by mouth at bedtime 30 tablet 2 08/23/2024 ActiveStart: 45-08-1387tswx 1 tablet by mouth at bedtime traZODone (Desyrel) 100 MG tablet Indications: Primary insomnia Take 1 tablet (100 mg) by mouth at bedtime 30 tablet 2 09/02/2023 Active Completed/Discontinued Medications MedicationDrug Class(es)DatesSig (Normalized)Sig (Original)aspirin 81 mg delayed release oral tablet (20 sources)Platelet Aggregation Inhibitor, Nonsteroidal Anti-inflammatory Drug End: 53-01-7573eodr 1 tablet by mouth once dailyaspirin 81 MG EC tablet Take 81 mg by mouth Daily 12/15/2024 Discontinuedomeprazole 20 mg delayed release oral capsule (20 sources)Proton Pump InhibitorStart: 05-10-2024 End: 13-87-5997kdrl 1 capsule by mouth once before mealtimeomeprazole (PriLOSEC) [address] capsule Indications: Heartburn during in second trimester ( [facility]) Take 1 capsule (20 mg) by mouth in the morning. Take before meals. Do not crush or chew.. 30 capsule 11 05/10/2024 12/15/2024 DiscontinuedPrenatal MV-Min-Fe Fum-FA-DHA ( 1 PO) (20 sources) End: 07-31-2129Mwqiknna MV-Min-Fe Fum-FA-DHA ( 1 PO) Take 1 each by mouth Daily 12/15/2024 DiscontinuedPrenatal MV-Min-Fe Fum-FA-DHA ( 1 PO) Take 1 each by mouth Daily Activepromethazine hydrochloride 25 mg oral tablet (2 sources)PhenothiazineStart: 02-06-2017 End: 99-75-3751wlhc 1 tablet by mouth every six hours as needed for nausea Promethazine 25 mg Tablet Discontinued 25 MG PO Q6H as needed for Nausea February 06, 2017 12:00am May 16, 2017 1:07am Problems Active Problems Problem ClassificationProblemDateDocumented DateEpisodic/ChronicCardiac dysrhythmias (20 sources)Supraventricular tachycardia; Translations: [Supraventricular tachycardia]Onset: 661895-74-0381XsybxojOwchiovt mellitus without complication (2 sources)Abnormal glucose tolerance test; Translations: [Other abnormal glucose]22-71-4420MaxslipoCppecfko or abnormal glucose tolerance complicating ; childbirth; or the puerperium (8 sources)History of gestational diabetes mellitus; Translations: [Personal history of gestational diabetes]61-14-2087NynzvwvfPnocrxos; including migraine (2 sources)Iblpykhj02-25-5427RhaohdbSpbnneyxmxtez and screening for infectious disease (3 sources)Encounter for screening for human papillomavirus (HPV); Translations: [Patient encounter status]Onset: 255013-66-9698UkiyjzfnHnzdpeqjn (1 source)Influenza due to other identified influenza virus with other respiratory manifestations; Translations: [FLU D/T OTH ID FLU VIR OTH RSP MANF] Onset: 89-23-2061MfwxcshrDjmjnwnzb disorders (3 sources)Missed period; Translations: [Irregular menstruation, unspecified] 87-29-7128MsauhgzMlpxnpxewulxw mental health disorders (4 sources)Primary insomnia; Translations: [Primary insomnia]95-56-6888Exqslbw Mood disorders (20 sources)Depressive disorder; Translations: [Depression]Onset: 09-01-2023 Resolved: 829817-08-6669IlzlttaLolcl aftercare (1 source)MCC (current) use of hormonal contraceptives; Translations: [SCHOOL PSYCHOLOGY SPECIALIST HORMONAL CONTRACEPTIVES]Onset: 71-77-4556QeefubxcCqvvc aftercare (1 source)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; Translations: [OTH SCHOOL PSYCHOLOGY SPECIALIST CURRENT DRUG THERAPY]Onset: 39-12-5367KebylfezChnpr bone disease and musculoskeletal deformities (2 sources)Costal chondritis; 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 [Tietze]]11-97-2538WnhwbkdrYxjiy complications of (8 sources)Multigravida of advanced maternal age; Translations: [Supervision of elderly multigravida, unspecified trimester]72-73-7251DtbrqhuyYepxz nutritional; endocrine; and metabolic disorders (1 source)Obesity, unspecified; Translations: [OBESITY UNSPECIFIED]Onset: 69-30-6572SpqntgrVjmar nutritional; endocrine; and metabolic disorders (20 sources)Body mass index 30+ - obesity; Translations: [Obesity, unspecified] Onset: 536530-16-7321VzyfqcoGfnxo and delivery including normal (20 sources); Translations: [Encounter for supervision of normal , unspecified, unspecified trimester]00-05-7997IdqkgacfWdyja screening for suspected conditions (not mental disorders or infectious disease) (14 sources)Encounter for screening for malignant neoplasm of cervix; Translations: [Alpha-fetoprotein blood test status]Onset: 34-55-7986Zusakqrr Residual codes; unclassified (2 sources)Gestation period, 11 weeks; Translations: [11 weeks gestation of ]46-34-5268HqpcstyxOlypnrsk codes; unclassified (2 sources)Gestation period, 15 weeks; Translations: [15 weeks gestation of ]45-40-8193ZltdlwjgQwtoqnzh codes; unclassified (2 sources)Gestation period, 25 weeks; Translations: [25 weeks gestation of ]72-78-8357AdmvjtwcTqlnajdr codes; unclassified (2 sources)Gestation period, 28 weeks; Translations: [28 weeks gestation of ]20-87-1286TvdoubhoWeqqvwur codes; unclassified (2 sources)Gestation period, 30 weeks; Translations: [30 weeks gestation of ]37-45-2506XcdkbusxLrabnuwt codes; unclassified (2 sources)Gestation period, 32 weeks; Translations: [32 weeks gestation of ]35-48-7965MvlfggyaAixwttmy codes; unclassified (2 sources)Gestation period, 34 weeks; Translations: [34 weeks gestation of ]15-69-6633WkazrixqPvnxgtpc codes; unclassified (2 sources)Gestation period, 36 weeks; Translations: [36 weeks gestation of ]60-58-0184DahazdcdKvtpyqvs codes; unclassified (2 sources)Gestation period, 37 weeks; Translations: [37 weeks gestation of ]99-02-9699WuvrpooxWvcpbgye codes; unclassified (2 sources)Gestation period, 38 weeks; Translations: [38 weeks gestation of ]77-40-3338DkczumehCyrxtquly and history of mental health and substance abuse codes (1 source)Personal history of nicotine dependence; Translations: [PERSONAL HISTORY OF NICOTINE DEPEND]Onset: 08-29-1539MghygildGiuep gestation; low weight; and growth retardation (6 sources)Qcuiz-xze-eyzgl baby; Translations: [[place] small for gestational age, unspecified weight]19-44-2134SvdwoxsrAcninweonkie (2 sources)COUGH, UNSPECIFIED; Translations: [COUGH, UNSPECIFIED]Onset: 92-65-0800Jerkgaoimtjb (1 source)PERSONAL HISTORY OF COVID-19; Translations: [PERSONAL HISTORY OF COVID-19]Onset: 90-52-4244Xhkqjuspnveg (1 source)CONTACT W/AND (SUSP) EXPOS COVID-19; Translations: [CONTACT W/AND (SUSP) EXPOS COVID-19]Onset: 09-13-3409Csnvukbepnbp (20 sources)OB RemindersOnset: Past or Other Problems Problem ClassificationProblemDateDocumented DateEpisodic/ChronicInflammation; infection of eye (except that caused by tuberculosis or sexually transmitteddisease) (1 source)Unspecified conjunctivitis; Translations: [UNSPECIFIED CONJUNCTIVITIS] Onset: 88-16-9931JsypikokClwgs eye disorders (4 sources)Ocular pain, left eye; Translations: [OCULAR PAIN LEFT EYE]Onset: 42-78-5365RwvqfivuSvxhu non-traumatic joint disorders (20 sources)Pain of left wrist; Translations: [Pain in left wrist]Onset: 441010-02-4883NvaugqecMayvw skin disorders (4 sources)Nonscarring hair loss, unspecified; Translations: [NONSCARRING HAIR LOSS UNSPECIFIED]Onset: 29-28-6519WkceufyeFpegprvk codes; unclassified (20 sources)Insomnia; Translations: [Insomnia, unspecified]Onset: 02-27-2023 40-65-0642CwovesfiFujzhqcziafc (1 source)COUGH, UNSPECIFIED; Translations: [COUGH, UNSPECIFIED]Onset: 02-20-2022 Results Test NameValueInterpretationReference RangeFacilityIGP,APTIMA HPV,AGE GDLNon 06-68-4820SUC GDLN ACOG TESTINGNote.NOMS HealthcareComment on above:TESTS RESULT FLAG UNITS REF RANGE LAB Clinician Provided Cytology Information Source.............Cervix;Endocervix No. of containers..01 ThinPrep Vial Age Algo ACOG Sylvia... 28 FLAG LEGEND: L-Low Normal,H-High Normal,LL-Alert Low,HH-Alert High <-Panic Low,>-Panic High,A-Abnormal,AA-Critical Abnormal Performed at: 01 =[facility] [place] [address] Amber Tilley MD, HPV APTIMANegativeNegativeNOMS HealthcareComment on above:This nucleic acid amplification test detects fourteen high- risk HPV types (16,18,31,33,35,39,45,51,52,56,58,59,66,68) without differentiation. Performed at: =[facility] [place] [id number] Erp Pm: Amber Tilley MD, Phone: [phone] Performed at: [address], [place] [id number] Erp Pm: Amber Tilley MD, Phone: [phone] IGP, APTIMA HPV, RFX 16/18,45Note.NOMS HealthcareComment on above:TESTS RESULT FLAG UNITS REF RANGE LAB DIAGNOSIS: 02 NEGATIVE FOR INTRAEPITHELIAL LESION OR MALIGNANCY. THIS SPECIMEN WAS RESCREENED PART OF OUR MARINE PILOT PROGRAM. Specimen adequacy: 02 Satisfactory for evaluation. Endocervical and/or squamous metaplastic cells (endocervical component) are present. Performed by: 02 Ju Ocampo, Administrative Office Specialist (ASCP) QC reviewed by: 02 Mirna Cameron, Administrative Office Specialist (ASCP) . 02 Note: Note 02 The Pap [...] liquid based ThinPrep(R) pap test was interpreted using the [employer](R) [employer](TM) Cervical Algorithm whole slide imaging system. HPV Genotype Reflex Note 02 Criteria not met, HPV Genotype not performed. FLAG LEGEND: L-Low Normal,H-High Normal,LL-Alert Low,HH-Alert High <-Panic Low,>-Panic High,A-Abnormal,AA-Critical Abnormal Performed at: 02 [facility] [address] [place] [address] Amber Tilley MD, BRUSH-SPATULA CERVIX ENDOCERVIX CLINISYNCNOSSM Health Cardinal Glennon Children's HospitalALL CBC WITH AUTO DIFFon 14-76-5579ARPIQQTQC ABSOLUTE MTBI0FJEN HealthcareBasophils/100 WBC (Bld)0.2 %0.2 - 2.0 %[facility] Eosinophils/100 WBC (Bld)0.2 %Low0.9 - 7.0 %NOM HealthcareErythrocyte distribution width (RBC) [Ratio]14.3 %11.0 - 15.0 %NOMS HealthcareHematocrit (Bld) [Volume fraction]37.1 %36.0 - 48.0 %[facility] HospitalHemoglobin (Bld) [Mass/Vol]12.3 g/dL12.0 - 16.0 g/dLRay County Memorial HospitalIMMATURE GRANULOCYTES ABS AUTO 0.05HighNOSSM Health [facility] Children's HospitalImmature granulocytes/100 WBC (Bld)0.4 %0.0 - 0.5 %[facility] HospitalInterpretation and review of laboratory resultsAbnormalNOSSM Health [facility] LYMPHOCYTES ABSOLUTE AUTO2.5NOSSM Health [facility] Children's HospitalLymphocytes/100 WBC (Bld)19.3 %Low 20.5 - 60.0 %[facility] ChildrenH (RBC) [Entitic mass]30.6 pg26.7 - 34.0 pgShriners Hospitals for ChildrenHC (RBC) [Mass/Vol]33.2 g/dL29.9 - 35.2 g/dLShriners Hospitals for ChildrenV (RBC) [Entitic vol]92.3 fL81.0 - 99.0 fLNOSSM Health Cardinal Glennon Children's HospitalMONOCYTES ABSOLUTE AUTO1.1High [facility] HealthcareMonocytes/100 WBC (Bld)8.2 %1.7 - 12.0 %[facility] NEUTROPHILS ABSOLUTE AUTO9.4HighNOSSM Health Cardinal Glennon Children's HospitalNeutrophils/100 WBC (Bld)71.7 % 43.0 - 75.0 %NOMFulton State HospitalPlatelet mean volume (Bld) [Entitic vol]11 fL9.5 - 13.5 fLNOSSM Health Cardinal Glennon Children's HospitalTBH EO #0NOMS HealthcareTBH [id number] HealthcareTBH RBC 4.02LowNOMS HealthcareTBH WBC13.1HighNOMS HealthcareCLINISYNCNOMS HealthcareTBH UA (CLEAN/CATCH) MUNITIONS WORKER/MICRO IF IND.on 01-84-3991SGPHZAIYS URINENegativeNEGATIVE NOMS HealthcareBLOOD URINENegativeNEGATIVENOMS HealthcareClarity (U)CLEARCLEAR NOMS HealthcareColor (U)LT. YELLOWYELLOWNOMS HealthcareGLUCOSE URINE UANegative NEGATIVE mg/dLNOMS HealthcareKetones Ql (U)NegativeNEGATIVE mg/dLNOMS Healthcare Leukocyte esterase Test strip Ql (U)NegativeNEGATIVENOMS HealthcareNITRITE URINE NegativeNEGATIVENOMS HealthcarepH (U)7.0 [pH]5.0 - 9.0NOMS HealthcarePROTEIN URINENegativeNEG/TRACE mg/dLNOMS HealthcareSPECIFIC GRAVITY URINE1.0101.005 - 1.025NOMS HealthcareURINE MICROSCOPIC INDICATEDNONOMS HealthcareUROBILINOGEN URINE0.2 EU/dL0.2 - 1.0 EU/dLNOMS HealthcareCLINISYNCNOMS HealthcareUrinalysis macro (dipstick) panel (U)on 20-68-9091Byclmsehg, UANegativeNegative - 4(70) +++ mg/dLNOMS HealthcareBlood, UANegativeNegative - 50 Richy/mcLNOMS Healthcare Clarity, UAClearNOMS HealthcareColor, UAYellowNOMS HealthcareGlucose, UANegative Negative - 2000(110) ++++ mg/dLNOMS HealthcareInterpretation and review of laboratory resultsAbnormalNOMS HealthcareKetones, UANegativeNegative - 160(16) ++++ mg/dLNOMS HealthcareLeukocytes, UANegativeNegative - 500+++ Tano/mcLNOMS HealthcareNitrite, UANegativeNegative - PositiveNOMS HealthcarepH, UA75 - 9NOMS HealthcareProtein, UAPositiveNegative - 2000(20) ++++ mg/dLNOMS Healthcare Comment on above:30Spec Grav, UA1.021 - 1.03NOMS HealthcareUrobilinogen, UA1.0 0.2 - 12 mg/dLNOMS HealthcareNOMS HealthcareUS OB BPP W NON-STRESSon 01-77-7715[address] [address] Ultrasound Report Signed Patient: SHREYA ROGERS MR#: [id number] : 1990 Acct:[id number] Age/Sex: 34 / F ADM Date: 09/12/24 [place] [facility] [place]: Radha Velazquez Ordering Physician: Radha Velazquez Date of Service: 09/12/24 Procedure(s): US OB BPP w non-stress Accession Number(s): [id number] cc: Анна Ha CENTRAL OFFICE WORKER; Radha Velazquez The [address] [address] Patient Name: SHREYA ROGERS MRN: H:[id number] date: 1990 Sex: F Assigned Patient Location: [facility] Current Patient Location: Accession/Order Number: [id number] Exam Date: 09/12/2024 11:48 Report Date: 09/12/2024 11:49 At the request of: RADHA VELAZQUEZ Procedure: US OB BPP w non-stress Biophysical profile. Reason for exam: Repeat BPP. COMPARISON: BPP 09/11/2024. TECHNIQUE: Transabdominal imaging of the gravid uterus was obtained. FINDINGS: The goodwill representative reports a BPP of 8 out of 8. LIVE is normal at 12.7 cm. heart rate 126 bpm. US/US OB BPP w non-stress IMPRESSION: BPP 8 out of 8. Impression dictated by: Avery Ram Jr., D.O. 09/12/2024 11:49 AM Dictation Location: [place] [address] Electronically authenticated by: [id number] Y Date: 09/12/2024 11:49 Dictated By: Avery Ram M.D. Signed By: 09/12/24 1152 DD/ 1149 TD/TT: Dynamometer Repairer:DELVINadiologosman, Radiologist, - 09/12/[address] [address] Ultrasound Report Signed Patient: SHREYA ROGERS MR#: [id number] : 1990 Acct:[id number] Age/Sex: 34 / F ADM Date: 09/12/24 Loc: [facility] Attending Dr: Radha Velazquez Ordering Physician: Radha Velazquez Date of Service: 09/12/24 Procedure(s): US OB BPP w non-stress Accession Number(s): [id number] cc: Анна Ha CENTRAL OFFICE WORKER; Radha Velazquez [place] [id number] Patient Name: SHREYA ROGERS MRN: [facility]:[id number] date: 1990 Sex: F Assigned Patient Location: [facility] Current Patient Location: Accession/Order Number: [id number] Exam Date: 09/12/2024 11:48 Report Date: 09/12/2024 11:49 At the request of: RADHA VELAZQUEZ Procedure: US OB BPP w non-stress Biophysical profile. Reason for exam: Repeat BPP. COMPARISON: BPP 09/11/2024. TECHNIQUE: Transabdominal imaging of the gravid uterus was obtained. FINDINGS: The goodwill representative reports a BPP of 8 out of 8. LIVE is normal at 12.7 cm. heart rate 126 bpm. US/US OB BPP w non-stress IMPRESSION: BPP 8 out of 8. Impression dictated by: Avery Ram Jr., D.O. 09/12/2024 11:49 AM Dictation Location: [place] [address] Electronically authenticated by: [id number] Y Date: 09/12/2024 11:49 Dictated By: Avery Ram M.D. Signed By: 09/12/24 1152 DD/ 1149 TD/TT: Dynamometer Repairer: MIRANDA HealthcareRadiology Study observation (narrative)MIRANDA HealthcareUS OB BPP W NON-STRESSOrdered By: Radiologist Radiology on 09-88-8001[facility] Work Phone: US OB BPP W NON-STRESSon 75-49-0538Hps[address] [address] Ultrasound Report Signed Patient: SHREYA ROGERS MR#: [id number] : 1990 Acct:[id number] Age/Sex: 34 / F ADM Date: 09/11/24 Loc: [facility] Attending Dr: Slava Castro D.O. Ordering Physician: Slava Castro D.O. Date of Service: 09/11/24 Procedure(s): US OB BPP w non-stress Accession Number(s): [id number] cc: Анна Ha CENTRAL OFFICE WORKER; Slava Castro D.O. The [place] [id number] Patient Name: SHREYA ROGERS MRN: [facility]:[id number] date: 1990 Sex: F Assigned Patient Location: [facility] Current Patient Location: Accession/Order Number: [id number] Exam Date: 09/11/2024 14:21 Report Date: 09/11/2024 [...] Sheets M.D. 09/11/2024 2:23 PM Dictation Location: [place] [address] Electronically authenticated by: [id number] Y Date: 09/11/2024 14:23 Dictated By: Jake Sheets M.D. Signed By: 09/11/24 1425 DD/ 22 TD/TT: Dynamometer Repairer:DELVINadiologosman, Radiologist, - 09/11/2024 [place] [address] Ultrasound Report Signed Patient: SHREYA ROGERS MR#: [id number] : 1990 Acct:[id number] Age/Sex: 34 / F ADM Date: 09/11/24 Loc: [facility] Attending Dr: Slava Castro D.O. Ordering Physician: Slava Castro D.O. Date of Service: 09/11/24 Procedure(s): US OB BPP w non-stress Accession Number(s): [id number] cc: Анна Ha CENTRAL OFFICE WORKER; Slava Castro D.O. [place] [address] Patient Name: SHREYA ROGERS MRN: H:[id number] date: 1990 Sex: F Assigned Patient Location: [facility] Current Patient Location: Accession/Order Number: [id number] Exam Date: 09/11/2024 14:21 Report Date: 09/11/2024 [...] Sheets M.D. 09/11/2024 2:23 PM Dictation Location: [place] [address] Electronically authenticated by: [id number] Y Date: 09/11/2024 14:23 Dictated By: Jake Sheets M.D. Signed By: 09/11/24 1425 DD/ 22 TD/TT: Dynamometer Repairer: MIRANDA HealthcareRadiology Study observation (narrative)NOMS HealthcareUS OB BPP W NON-STRESSOrdered By: Radiologist Radiology on 84-10-3326[facility] Work Phone: No Panel InformationOrdered By: Radiologist Radiology on 83-97-9527QMDL Healthcare Work Phone: No Panel Informationon 32-33-2146Msozxbfcr Study observation (narrative)NOMS HealthcareUS OB BPP W NON-STRESSon 09-09-[address] [address] Ultrasound Report Signed Patient: SHREYA ROGERS MR#: [id number] : 1990 Acct:[id number] Age/Sex: 34 / F ADM Date: 09/08/24 Loc: US Attending Dr: Vidya Sepulveda Ordering Physician: Vidya Sepulveda Date of Service: 09/08/24 Procedure(s): US OB BPP w non-stress Accession Number(s): [id number] cc: Анна Ha NP; Vidya Sepulveda [address] [address] Patient Name: SHREYA ROGERS MRN: [facility]:[id number] date: 1990 Sex: F Assigned Patient Location: Current Patient Location: Accession/Order Number: [id number] Exam Date: 09/09/2024 08:04 Report Date: 09/09/2024 08:12 At the request of: VIDYA SEPULVEDA Procedure: US OB growth CLINICAL INFORMATION: History [...] Auguste M.D. 09/09/2024 8:12 AM Dictation Location: [place] [address] Electronically authenticated by: [id number] Y Date: 09/09/2024 08:12 Dictated By: Isatu Auguste M.D. Signed By: 09/09/24813 DD/ 1 TD/TT: Dynamometer Repairer:DEYAHRadiology, Radiologist, - 09/09/2024 [place] [address] Ultrasound Report Signed Patient: SHREYA ROGERS MR#: [id number] : 1990 Acct:[id number] Age/Sex: 34 / F ADM Date: 09/08/24 Loc: US Attending Dr: Vidya Sepulveda Ordering Physician: Vidya Sepulveda Date of Service: 09/08/24 Procedure(s): US OB BPP w non-stress Accession Number(s): [id number] cc: Анна Ha NP; Vidya Sepulveda The [place] [id number] Patient Name: SHREYA ROGERS MRN: [facility]:[id number] date: 1990 Sex: F Assigned Patient Location: US Current Patient Location: Accession/Order Number: [id number] Exam Date: 09/09/2024 08:04 Report Date: 09/09/2024 08:12 At the request of: VIDYA SEPULVEDA Procedure: US OB growth CLINICAL INFORMATION: History [...] Auguste M.D. 09/09/2024 8:12 AM Dictation Location: [place] [address] Electronically authenticated by: [id number] Y Date: 09/09/2024 08:12 Dictated By: Isatu Auguste M.D. Signed By: 09/09/24813 DD/ 1 TD/TT: Dynamometer Repairer: MIRANDA [place] OB GROWTHon 88-72-8870Dqb[address] [address] Ultrasound Report Signed Patient: SHREYA ROGERS MR#: [id number] : 1990 Acct:[id number] Age/Sex: 34 / F ADM Date: 09/08/24 Loc: US Attending Dr: Vidya Sepulveda Ordering Physician: Vidya Sepulveda Date of Service: 09/08/24 Procedure(s): US OB growth Accession Number(s): [id number] cc: Анна Ha CENTRAL OFFICE WORKER; Vidya Sepulveda [address] [address] Patient Name: SHREYA ROGERS MRN: [facility]:[id number] date: 1990 Sex: F Assigned Patient Location: [facility] Current Patient Location: Accession/Order Number: [id number] Exam Date: 09/09/2024 08:04 Report Date: 09/09/2024 08:12 At the request of: VIDYA SEPULVEDA Procedure: US OB growth CLINICAL INFORMATION: History [...] Auguste M.D. 09/09/2024 8:12 AM Dictation Location: [place] [address] Electronically authenticated by: [id number] Y Date: 09/09/2024 08:12 Dictated By: Isatu Auguste M.D. Signed By: 09/09/24813 DD/ 1 TD/TT: Dynamometer Repairer:TBHRadiology, Radiologist, MD - 09/09/2024 [place] [address] Ultrasound Report Signed Patient: SHREYA ROGERS MR#: [id number] : 1990 Acct:[id number] Age/Sex: 34 / F ADM Date: 09/08/24 Loc: US Attending Dr: Vidya Sepulveda Ordering Physician: Vidya Sepulveda Date of Service: 09/08/24 Procedure(s): US OB growth Accession Number(s): [id number] cc: Анна Ha NP; Vidya Sepulveda The [address] [address] Patient Name: SHREYA ROGERS MRN: [facility]:[id number] date: 1990 Sex: F Assigned Patient Location: [facility] Current Patient Location: Accession/Order Number: [id number] Exam Date: 09/09/2024 08:04 Report Date: 09/09/2024 08:12 At the request of: VIDYA SEPULVEDA Procedure: US OB growth CLINICAL INFORMATION: History [...] Auguste M.D. 09/09/2024 8:12 AM Dictation Location: [place] [address] Electronically authenticated by: [id number] Y Date: 09/09/2024 08:12 Dictated By: Isatu Auguste M.D. Signed By: 09/09/24813 DD/ 1 TD/TT: Dynamometer Repairer: MIRANDA HealthcareUrinalysis macro (dipstick) panel (U)on 66-06-3799Epbopjqpk, UA NegativeNegative - 4(70) +++ mg/dLNOOK HealthcareBlood, UANegativeNegative - 50 Richy/mcLNOOK HealthcareClarity, UAClearNOOK HealthcareColor, UAYellowNOOK HealthcareGlucose, UANegativeNegative - 2000(110) ++++ mg/dLNOOK Healthcare Interpretation and review of laboratory resultsAbnormalNOOK HealthcareKetones, UANegativeNegative - 160(16) ++++ mg/dLL[facility] HealthcareLeukocytes, UANegative Negative - 500+++ Tano/mcLNOOK HealthcareNitrite, UANegativeNegative - Positive NOMS HealthcarepH, UA6.55 - 9NOOK HealthcareProtein, UAPositiveNegative - 2000(20) ++++ mg/dLLONE [facility]AK [facility] HealthcareComment on above:30Spec Grav, UA1.021 - 1.03 NOMS HealthcareUrobilinogen, UA0.20.2 - 12 mg/dLLONE PEAK HOSPITAL HealthcareL[facility] Healthcare STREP GP B CULTURE+RFLXon 00-93-5699PABOY GP B CULTURE+RFLX Strep Gp B Culture+Rflx NOMS HealthcareSTREP GP B CULTURE+RFLXNegativeNOOK HealthcareSTREP GP B CULTURE+RFLXCenters for Disease Control and Prevention (CDC) andL[facility] Healthcare STREP GP B CULTURE+RFLXAmerican Congress of Obstetricians and GynecologistsNOOK HealthcareSTREP GP B CULTURE+RFLX(ACOG) guidelines for prevention of group BNCLEVELAND AREA HOSPITAL – [facility] HealthcareSTREP GP B CULTURE+RFLXstreptococcal (GBS) disease specify co-collection ofLONE PEAK HOSPITAL HealthcareSTREP GP B CULTURE+RFLXa vaginal and rectal swab specimen to maximizeNOOK HealthcareSTREP GP B CULTURE+RFLXsensitivity of GBS detection. Per the CDC and ACOG,NOMS HealthcareSTREP GP B CULTURE+RFLXswabbing both the lower vagina and rectumNOOK HealthcareSTREP GP B CULTURE+RFLX substantially increases the yield of detectionNOOK HealthcareSTREP GP B CULTURE+RFLXcompared with sampling the vagina alone.NOMS HealthcareSTREP GP B CULTURE+RFLXPenicillin G, ampicillin, or cefazolin are indicatedNOOK Healthcare STREP GP B CULTURE+RFLXfor intrapartum prophylaxis of GBSNOOK HealthcareSTREP GP B CULTURE+RFLXcolonization. Reflex susceptibility testing [...] GP B CULTURE+RFLXPerformed at: CB - [facility] HealthcareSTREP GP B CULTURE+OTIQ[address] [place], [place] [id number] HealthcareSTREP GP B CULTURE+RFLXLab Director: Tony Bynum PhD, Phone: [phone] HealthcareCLINISYNCNCLEVELAND AREA HOSPITAL – [facility] HealthcareUrinalysis macro (dipstick) panel (U)on 57-19-9957Xluzeviza, UANegativeNegative - 4(70) +++ mg/dLNOMS HealthcareBlood, UANegativeNegative - 50 Richy/mcLNOMS HealthcareClarity, UAClearNOMS Healthcare Color, UAYellowNOMS HealthcareGlucose, UANegativeNegative - 2000(110) ++++ mg/dL [facility] HealthcareInterpretation and review of laboratory resultsAbnormalNOMS HealthcareKetones, UANegativeNegative - 160(16) ++++ mg/dLNOMS Healthcare Leukocytes, UANegativeNegative - 500+++ Tano/mcLNOMS HealthcareNitrite, UA NegativeNegative - PositiveNOMS HealthcarepH, UA65 - 9NOMS HealthcareProtein, UA PositiveNegative - 2000(20) ++++ mg/dLNOMS HealthcareComment on above:30Spec Grav, UA1.021 - 1.03NOMS HealthcareUrobilinogen, UA1.00.2 - 12 mg/dLNOMS HealthcareNOMS HealthcareUS OB BPP W NON-STRESSon 82-44-3114[address] [address] Ultrasound Report Signed Patient: SHREYA ROGRES MR#: [id number] : 1990 Acct:[id number] Age/Sex: 34 / F ADM Date: 09/01/24 Loc: US Attending Dr: Vidya Sepulveda Ordering Physician: Vidya Sepulveda Date of Service: 09/01/24 Procedure(s): US OB BPP w non-stress Accession Number(s): [id number] cc: Анна Ha NP; Vidya Sepulveda The [place] [phone] Patient Name: SHREYA ROGERS MRN: [facility]:[id number] date: 1990 Sex: F Assigned Patient Location: US Current Patient Location: Accession/Order Number: [id number] Exam Date: 09/01/2024 15:10 Report Date: 09/01/2024 15:11 At the request of: VIDYA SEPULVEDA Procedure: US OB BPP w non-stress Ultrasound [...] Perez M.D. 09/01/2024 3:11 PM Dictation Location: [place] [address] Electronically authenticated by: [id number] Y Date: 09/01/2024 15:11 Dictated By: Emilio Perez D.O. Signed By: 09/01/24 1513 DD/ 10 TD/TT: Dynamometer Repairer:DEYAHRadiologosman, Radiologist, MD - 09/01/2024 [place] [address] Ultrasound Report Signed Patient: SHREYA ROGERS MR#: [id number] : 1990 Acct:[id number] Age/Sex: 34 / F ADM Date: 09/01/24 Loc: US Attending Dr: Vidya Sepulveda Ordering Physician: Vidya Sepulveda Date of Service: 09/01/24 Procedure(s): US OB BPP w non-stress Accession Number(s): [id number] cc: Анна Ha NP; Vidya Sepulveda [place] [id number] Patient Name: SHREYA ROGERS MRN: [facility]:[id number] date: 1990 Sex: F Assigned Patient Location: US Current Patient Location: Accession/Order Number: [id number] Exam Date: 09/01/2024 15:10 Report Date: 09/01/2024 15:11 At the request of: VIDYA SEPULVEDA Procedure: US OB BPP w non-stress Ultrasound [...] Perez M.D. 09/01/2024 3:11 PM Dictation Location: [place] [address] Electronically authenticated by: [id number] Y Date: 09/01/2024 15:11 Dictated By: Emilio Perez D.O. Signed By: 09/01/241512 DD/ 10 TD/TT: Dynamometer Repairer: MIRANDA HealthcareRadiology Study observation (narrative)NOMS HealthcareUS OB BPP W NON-STRESSOrdered By: Radiologist Radiology on 40-99-1493VDGF Healthcare Work Phone: US OB BPP W NON-STRESSon 51-24-0818[place] [address] Ultrasound Report Signed Patient: SHREYA ROGERS MR#: [id number] : 1990 Acct:[id number] Age/Sex: 33 / F ADM Date: 08/25/24 Loc: [facility] 253-[address]: Vidya Sepulveda Ordering Physician: Vidya Sepulveda Date of Service: 08/25/24 Procedure(s): US OB BPP w non-stress Accession Number(s): [id number] cc: Анна Ha NP; Vidya Sepulveda The [place] [address] Patient Name: SHREYA ROGERS MRN: [facility]:[id number] date: 1990 Sex: F Assigned Patient Location: [facility] Current Patient Location: [facility] Accession/Order Number: [id number] Exam Date: 08/25/2024 11:31 Report Date: 08/25/2024 11:33 At the request of: VIDYA SEPULVEDA Procedure: US OB BPP w non-stress BIOPHYSICAL [...] Auguste M.D. 08/25/2024 11:33 AM Dictation Location: [place] [address] Electronically authenticated by: [id number] Y Date: 08/25/2024 11:33 Dictated By: Isatu Auguste M.D. Signed By: 08/25/24 1135 DD/ 1133 TD/TT: Dynamometer Repairer:DEYAHRadiology, Radiologist, - 08/25/2024 [place] [address] Ultrasound Report Signed Patient: SHREYA ROGERS MR#: [id number] : 1990 Acct:[id number] Age/Sex: 33 / F ADM Date: 08/25/24 Loc: [facility] 253-1 Attending : Vidya Sepulveda Ordering Physician: Vidya Sepulveda Date of Service: 08/25/24 Procedure(s): US OB BPP w non-stress Accession Number(s): [id number] cc: Анна Ha NP; Vidya Sepulveda [address] [address] Patient Name: SHREYA ROGERS MRN: [facility]:[id number] date: 1990 Sex: F Assigned Patient Location: [facility] Current Patient Location: [facility] Accession/Order Number: [id number] Exam Date: 08/25/2024 11:31 Report Date: 08/25/2024 11:33 At the request of: VIDYA SEPULVEDA Procedure: US OB BPP w non-stress BIOPHYSICAL [...] Auguste M.D. 08/25/2024 11:33 AM Dictation Location: [place] [address] Electronically authenticated by: [id number] Y Date: 08/25/2024 11:33 Dictated By: Isatu Auguste M.D. Signed By: 08/25/24 1135 DD/ 1133 TD/TT: Dynamometer Repairer: MIRANDA HealthcareRadiology Study observation (narrative)NOMS HealthcareUS OB BPP W NON-STRESSOrdered By: Radiologist Radiology on 01-29-1498RPJH Healthcare Work Phone: US OB BPP W NON-STRESSon 22-78-6599[place] [phone] Ultrasound Report Signed Patient: SHREYA ROGERS MR#: [id number] : 1990 Acct:[id number] Age/Sex: 33 / F ADM Date: 08/18/24 Loc: US Attending Dr: Vidya Sepulveda Ordering Physician: Vidya Sepulveda Date of Service: 08/18/24 Procedure(s): US OB BPP w non-stress Accession Number(s): [id number] cc: Анна Ha NP; Vidya Sepulveda [address] [address] Patient Name: SHREYA ROGERS MRN: [facility]:[id number] date: 1990 Sex: F Assigned Patient Location: [facility] Current Patient Location: Accession/Order Number: [id number] Exam Date: 08/18/2024 11:47 Report Date: 08/18/2024 11:48 At the request of: VIDYA SEPULVEDA Procedure: US OB BPP w non-stress BIOPHYSICAL PROFILE: CLINICAL INFORMATION: History of gestational diabetes Z86.32 COMPARISON: 08/13/2024 There is a single live intrauterine gestation in cephalic presentation. The reported gestational age is 34 weeks 5 days. The heart rate jrgmyqxb995 beats per minute. FINDINGS: TONE: 1 or [...] Auguste M.D. 08/18/2024 11:48 AM Dictation Location: [place] [address] Electronically authenticated by: [id number] Y Date: 08/18/2024 11:48 Dictated By: Isatu Auguste M.D. Signed By: 08/18/24 1151 DD/ 1148 TD/TT: Dynamometer Repairer:DELVINadiologosman, Radiologist, - 08/18/2024 [place] [address] Ultrasound Report Signed Patient: SHREYA ROGERS MR#: [id number] : 1990 Acct:[id number] Age/Sex: 33 / F ADM Date: 08/18/24 Loc: US Attending Dr: Vidya Sepulveda Ordering Physician: Vidya Sepulveda Date of Service: 08/18/24 Procedure(s): US OB BPP w non-stress Accession Number(s): [id number] cc: Анна Ha CENTRAL OFFICE WORKER; Vidya Sepulveda The [place] [phone] Patient Name: SHREYA ROGERS MRN: [facility]:[id number] date: 1990 Sex: F Assigned Patient Location: [facility] Current Patient Location: Accession/Order Number: [id number] Exam Date: 08/18/2024 11:47 Report Date: 08/18/2024 11:48 At the request of: VIDYA SEPULVEDA Procedure: US OB BPP w non-stress BIOPHYSICAL PROFILE: CLINICAL INFORMATION: History of gestational diabetes Z86.32 COMPARISON: 08/13/2024 There is a single live intrauterine gestation in cephalic presentation. The reported gestational age is 34 weeks 5 days. The heart rate auluyzkz436 beats per minute. FINDINGS: TONE: 1 or [...] Auguste M.D. 08/18/2024 11:48 AM Dictation Location: [place] [address] Electronically authenticated by: [id number] Y Date: 08/18/2024 11:48 Dictated By: Isatu Auguste M.D. Signed By: 08/18/24 1151 DD/ 1148 TD/TT: Dynamometer Repairer: MIRANDA HealthcareRadiology Study observation (narrative)NOMS HealthcareUS OB BPP W NON-STRESSOrdered By: Radiologist Radiology on 77-07-5636SJDG [employer] Work Phone: US OB BPP W NON-STRESSon 35-87-7954[place] [address] Ultrasound Report Signed Patient: SHREYA ROGERS MR#: [id number] : 1990 Acct:[id number] Age/Sex: 33 / F ADM Date: 08/13/24 Loc: US Attending Dr: Slava Castro D.O. Ordering Physician: Slava Castro D.O. Date of Service: 08/13/24 Procedure(s): US OB BPP w non-stress Accession Number(s): [id number] cc: Анна Ha CENTRAL OFFICE WORKER; Slava Castro D.O. The [place] [phone] Patient Name: SHREYA ROGERS MRN: [facility]:[id number] date: 1990 Sex: F Assigned Patient Location: [facility] Current Patient Location: Accession/Order Number: [id number] Exam Date: 08/13/2024 17:25 Report Date: 08/13/2024 [...] Camacho M.D. 08/13/2024 5:27 PM Dictation Location: [place] [address] Electronically authenticated by: [id number] Y Date: 08/13/2024 17:27 Dictated By: Nilo Camacho M.D. Signed By: 08/13/241728 DD/ 26 TD/TT: Dynamometer Repairer:TBHRadiology, Radiologist, - 08/13/2024 [place] [address] Ultrasound Report Signed Patient: SHREYA ROGERS MR#: [id number] : 1990 Acct:[id number] Age/Sex: 33 / F ADM Date: 08/13/24 Loc: US Attending Dr: Slava Castro D.O. Ordering Physician: Slava Castro D.O. Date of Service: 08/13/24 Procedure(s): US OB BPP w non-stress Accession Number(s): [id number] cc: Анна Ha CENTRAL OFFICE WORKER; Slava Castro D.O. The [place] [address] Patient Name: SHREYA ROGERS MRN: [facility]:[id number] date: 1990 Sex: F Assigned Patient Location: [facility] Current Patient Location: Accession/Order Number: [id number] Exam Date: 08/13/2024 17:25 Report Date: 08/13/2024 [...] Camacho M.D. 08/13/2024 5:27 PM Dictation Location: [place] [address] Electronically authenticated by: [id number] Y Date: 08/13/2024 17:27 Dictated By: Nilo Camacho M.D. Signed By: 08/13/241728 DD/ 26 TD/TT: Dynamometer Repairer: MIRANDA HealthcareRadiology Study observation (narrative)NOMS HealthcareUS OB BPP W NON-STRESSOrdered By: Radiologist Radiology on 02-14-2891UBEE [facility] Work Phone: US OB BPP W NON-STRESSon 95-62-6971WbtM[place] [address] Ultrasound Report Signed Patient: SHREYA ROGERS MR#: [id number] : 1990 Acct:[id number] Age/Sex: 33 / F ADM Date: 08/11/24 Loc: [facility] 254-[address]: Vidya Sepulveda Ordering Physician: Vidya Sepulveda Date of Service: 08/11/24 Procedure(s): US OB BPP w non-stress Accession Number(s): [id number] cc: Анна Ha NP; Vidya Sepulveda [address] [address] Patient Name: SHREYA ROGERS MRN: [id number] date: 1990 Sex: F Assigned Patient Location: [facility] Current Patient Location: [facility] Accession/Order Number: [id number] Exam Date: 08/11/2024 12:18 Report Date: 08/11/2024 12:20 At the request of: VIDYA SEPULVEDA Procedure: US OB BPP w non-stress BIOPHYSICAL [...] Auguste M.D. 08/11/2024 12:20 PM Dictation Location: [place] [address] Electronically authenticated by: [id number] Y Date: 08/11/2024 12:20 Dictated By: Isatu Auguste M.D. Signed By: 08/11/24 1222 DD/ 1220 TD/TT: Dynamometer Repairer:TBHRadiology, Radiologist, - 08/11/2024 [place] [address] Ultrasound Report Signed Patient: SHREYA ROGERS MR#: [id number] : 1990 Acct:[id number] Age/Sex: 33 / F ADM Date: 08/11/24 Loc: [facility] 254-[address]: Vidya Sepulveda Ordering Physician: Vidya Sepulveda Date of Service: 08/11/24 Procedure(s): US OB BPP w non-stress Accession Number(s): [id number] cc: Анна Ha CENTRAL OFFICE WORKER; Vidya Sepulveda [place] [phone] Patient Name: SHREYA ROGERS MRN: [facility]:[id number] date: 1990 Sex: F Assigned Patient Location: [facility] Current Patient Location: [facility] Accession/Order Number: [id number] Exam Date: 08/11/2024 12:18 Report Date: 08/11/2024 12:20 At the request of: VIDYA SEPULVEDA Procedure: US OB BPP w non-stress BIOPHYSICAL [...] Auguste M.D. 08/11/2024 12:20 PM Dictation Location: [place] [address] Electronically authenticated by: [id number] Y Date: 08/11/2024 12:20 Dictated By: Isatu Auguste M.D. Signed By: 08/11/24 1222 DD/ 1220 TD/TT: Dynamometer Repairer: MIRANDA HealthcareRadiology Study observation (narrative)NOMS HealthcareUS OB BPP W NON-STRESSOrdered By: Radiologist Radiology on 51-14-7587MXPT Healthcare Work Phone: US OB BPP W NON-STRESSon 13-70-6347[place] [address] Ultrasound Report Signed Patient: SHREYA ROGERS MR#: [id number] : 1990 Acct:[id number] Age/Sex: 33 / F ADM Date: 08/04/24 Loc: [facility] 250-[address]: Vidya Sepulveda Ordering Physician: Vidya Sepulveda Date of Service: 08/04/24 Procedure(s): US OB BPP w non-stress Accession Number(s): [id number] cc: Анна Ha NP; Vidya Sepulveda [place] [phone] Patient Name: SHREYA ROGERS MRN: [facility]:[id number] date: 1990 Sex: F Assigned Patient Location: [facility] Current Patient Location: [facility] Accession/Order Number: [id number] Exam Date: 08/04/2024 11:42 Report Date: 08/04/2024 11:43 At the request of: VIDYA SEPULVEDA Procedure: US OB BPP w non-stress BIOPHYSICAL [...] Auguste M.D. 08/04/2024 11:43 AM Dictation Location: [place] [address] Electronically authenticated by: [id number] Y Date: 08/04/2024 11:43 Dictated By: Isatu Auguste M.D. Signed By: 08/04/24 1146 DD/ 1143 TD/TT: Dynamometer Repairer:DELVINadiologosman, Radiologist, - 08/04/2024 [place] [address] Ultrasound Report Signed Patient: SHREYA ROGERS MR#: [id number] : 1990 Acct:[id number] Age/Sex: 33 / F ADM Date: 08/04/24 Loc: [place] [address]: Vidya Sepulveda Ordering Physician: Vidya Sepulveda Date of Service: 08/04/24 Procedure(s): US OB BPP w non-stress Accession Number(s): [id number] cc: Анна Ha NP; Vidya Sepulveda The [place] [phone] Patient Name: SHREYA ROGERS MRN: [id number] date: 1990 Sex: F Assigned Patient Location: [facility] Current Patient Location: [facility] Accession/Order Number: [id number] Exam Date: 08/04/2024 11:42 Report Date: 08/04/2024 11:43 At the request of: VIDYA SEPULVEDA Procedure: US OB BPP w non-stress BIOPHYSICAL [...] Auguste M.D. 08/04/2024 11:43 AM Dictation Location: [place] [address] Electronically authenticated by: [id number] Y Date: 08/04/2024 11:43 Dictated By: Isatu Auguste M.D. Signed By: 08/04/24 1146 DD/ 1143 TD/TT: Dynamometer Repairer: MIRANDA HealthcareRadiology Study observation (narrative)NOM[facility] HealthcareUS OB BPP W NON-STRESSOrdered By: Radiologist Radiology on 62-45-0049[facility] Work Phone: Urinalysis macro (dipstick) panel [...] - 12 mg/dLNOMS HealthcareNOMS HealthcareUS OB GROWTHon 84-22-1282RawM[place] [address] Ultrasound Report Signed Patient: SHREYA ROGERS MR#: [id number] : 1990 Acct:[id number] Age/Sex: 33 / F ADM Date: 07/28/24 Loc: US Attending Dr: Slava Castro D.O. Ordering Physician: Slava Castro D.O. Date of Service: 07/28/24 Procedure(s): US OB growth Accession Number(s): [id number] cc: Анна Ha CENTRAL OFFICE WORKER; Slava Castro D.O. The [place] [phone] Patient Name: SHREYA ROGERS MRN: [facility]:[id number] date: 1990 Sex: F Assigned Patient Location: Current Patient Location: US Accession/Order Number: [id number] Exam Date: 07/28/2024 10:44 Report Date: 07/28/2024 [...] Auguste M.D. 07/28/2024 10:48 AM Dictation Location: [place] [address] Electronically authenticated by: [id number] Y Date: 07/28/2024 10:48 Dictated By: Isatu Auguste M.D. Signed By: 07/28/24 1051 DD/ 1048 TD/TT: Dynamometer Repairer:DEYAHRadiology, Radiologist, - 07/28/[address] [address] Ultrasound Report Signed Patient: SHREYA ROGERS MR#: [id number] : 1990 Acct:[id number] Age/Sex: 33 / F ADM Date: 07/28/24 Loc: US Attending Dr: Slava Castro D.O. Ordering Physician: Slava Castro D.O. Date of Service: 07/28/24 Procedure(s): US OB growth Accession Number(s): [id number] cc: Анна Ha NP; Slava Castro D.O. [place] [address] Patient Name: SHREYA ROGERS MRN: [facility]:[id number] date: 1990 Sex: F Assigned Patient Location: US Current Patient Location: US Accession/Order Number: [id number] Exam Date: 07/28/2024 10:44 Report Date: 07/28/2024 [...] Auguste M.D. 07/28/2024 10:48 AM Dictation Location: [place] [address] Electronically authenticated by: [id number] Y Date: 07/28/2024 10:48 Dictated By: Isatu Auguste M.D. Signed By: 07/28/24 1051 DD/ 1048 TD/TT: Dynamometer Repairer: [facility]ITALCorby Transinfo GroupRadiology Study observation (narrative)[facility] Transinfo GroupUS OB GROWTHOrdered By: Radiologist Radiology on 75-12-0806OPILRay County Memorial Hospital Work Phone: GLUCOSE TOLERANCE 3 HOURon 76-69-1058IWQVIVO TOLERANCE 3 HOURHighmg/dLL[facility] HealthcareComment on above:GLU FAST 97H (<95) Col: 07/23/24 0909 GLU 1HR 151 (<180) Col: 07/23/24 1013 GLU 2HR 151 (<155) Col: 07/23/24 1113 GLU 3HR 123 (<140) Col: 07/23/24 1213 Interpretation and review of laboratory resultsAbnormalRay County Memorial HospitalCLINISYNC [facility] [employer] OB FOLLOW UP TRANSABDOMINAL APPROACHon 90-65-7351LU OB FOLLOW UP TRANSABDOMINAL APPROACHEXAM: US OB [...] II, MD, PHD at 07-Jul-2024 10:00:26 AM [facility] TeleradiologyNormalNot AvailableComment on above:Order Comment: US OB SCAN FOR GROWTH Estimated Date of Delivery: 09/24/24 Gestational Age as of 06/16/2024: 47r8tAtxasasjkl macro (dipstick) panel (U)on 07-31-9991Ciovohuxe, UANegativeNegative - 4(70) +++ mg/dLNOMS HealthcareBlood, UANegativeNegative - 50 Richy/mcLNOMS HealthcareClarity, UAClearNOMS Healthcare Color, UAYellowNOMS HealthcareGlucose, UANegativeNegative - 2000(110) ++++ mg/dL N[facility]S HealthcareInterpretation and review of laboratory resultsNormalNOOK HealthcareKetones, UANegativeNegative - 160(16) ++++ mg/dLNOMS Healthcare Leukocytes, UANegativeNegative - 500+++ Tano/mcLNOMS HealthcareNitrite, UA NegativeNegative - PositiveNOMS HealthcarepH, UA75 - 9NOMS HealthcareProtein, UA NegativeNegative - 2000(20) ++++ mg/dLNOMS HealthcareSpec Grav, UA1.0151 - 1.03 NOMS HealthcareUrobilinogen, UA0.20.2 - 12 mg/dLNOMS HealthcareNOMS Healthcare ALL CBC WITH AUTO DIFFon 65-70-6629HCWXQXKGX ABSOLUTE QJPP6CVLC Healthcare Basophils/100 WBC (Bld)0.3 %0.2 - 2.0 %NOMS HealthcareEosinophils/100 WBC (Bld) 0.3 %Low0.9 - 7.0 %NOMS HealthcareErythrocyte distribution width (RBC) [Ratio] 12.9 %11.0 - 15.0 %NOMS HealthcareHematocrit (Bld) [Volume fraction]35.5 %Low 36.0 - 48.0 %NOMS HealthcareHemoglobin (Bld) [Mass/Vol]11.6 g/dLLow12.0 - 16.0 g/dLNOMS HealthcareIMMATURE GRANULOCYTES ABS AUTO0.03NOMS HealthcareImmature granulocytes/100 WBC (Bld)0.4 %0.0 - 0.5 %N[facility]S HealthcareInterpretation and review of laboratory resultsAbnormalNOOK HealthcareLYMPHOCYTES ABSOLUTE AUTO1.7 NOMS HealthcareLymphocytes/100 WBC (Bld)22.3 %20.5 - 60.0 %[facility] for ChildrenH (RBC) [Entitic mass]30.7 pg26.7 - 34.0 pgNOOK HealthcareHC (RBC) [Mass/Vol] 32.7 g/dL29.9 - 35.2 g/dLNOOK HealthcareMCV (RBC) [Entitic vol]93.9 fL81.0 - 99.0 fLNOOK HealthcareMONOCYTES ABSOLUTE AUTO0.4NOOK HealthcareMonocytes/100 WBC (Bld)5.5 %1.7 - 12.0 %NOM HealthcareNEUTROPHILS ABSOLUTE AUTO5.3NOOK Healthcare Neutrophils/100 WBC (Bld)71.2 %43.0 - 75.0 %[facility] HealthcarePlatelet mean volume (Bld) [Entitic vol]9.6 fL9.5 - 13.5 fLNOOK HealthcareTBH EO #0NOMS HealthcareTBH [id number] HealthcareTB RBC3.78LowNOOK HealthcareTBH WBC7.4NOOK Healthcare CLINISYNCNOOK HealthcareRECURRENT VAGINITIS (HTRX)on 55-55-8002CVRPMGLLY VAGINAE 0NOMS HealthcareATOPOBIUM VAGINAENot detectedNOMS HealthcareBVAB 2,3 (BACTERIAL VAGINOSIS ASSOCIATED BACTERIA 2, 3); MOBILUNCUS OVT4RBJB HealthcareBVAB 2,3 (BACTERIAL VAGINOSIS ASSOCIATED BACTERIA 2, 3); MOBILUNCUS SPPNot detectedNOMS HealthcareCANDIDA ALBICANS, PARAPSILOSIS, [id number] HealthcareCANDIDA ALBICANS, PARAPSILOSIS, TROPICALISNot detectedNOMS HealthcareCANDIDA GLABRATA0 NOMS HealthcareCANDIDA GLABRATANot detectedNOMS HealthcareCANDIDA [id number] HealthcareCANDIDA KRUSEINot detectedNOMS HealthcareCHLAMYDIA SBKAERJXUMM2VNHA HealthcareCHLAMYDIA TRACHOMATISNot detectedNOMS HealthcareGARDNERELLA VAGINALIS0 NOMS HealthcareGARDNERELLA VAGINALISNot detectedNOMS HealthcareMEGASPHAERA (TYPES 1, 2)0NOMS HealthcareMEGASPHAERA (TYPES 1, 2)Not detectedNOMS Healthcare MYCOPLASMA EFBGUYCZLY3WFSD HealthcareMYCOPLASMA GENITALIUMNot detectedNOMS HealthcareNEISSERIA ITGPIPSAHBB6GRAF HealthcareNEISSERIA GONORRHOEAENot detected NOMS HealthcareTRICHOMONAS [id number] HealthcareTRICHOMONAS VAGINALISNot detectedNOMS HealthcareNOMS HealthcareUrinalysis macro (dipstick) panel (U)on 47-47-4514Bwtgviyal, UANegativeNegative - 4(70) +++ mg/dLNOMS HealthcareBlood, UANegativeNegative [...] HealthcareNOMS HealthcareUS OB 14+ WEEKS ANATOMY SCANon 38-65-1577SK OB 14+ WEEKS ANATOMY SCANEXAM: US OB [...] II, MD, PHD at 11-May-2024 12:36:27 AM [facility] TeleradiologyNormalNot AvailableComment on above:Order Comment: US OB ANATOMY SINGLE W US OB CERVICAL LENGTH Estimated Date of Delivery: 09/24/24 Gestational Age as of 04/07/2024: 47l0lLRBUURG 1 HOURon 71-81-8929Pmcnefu [Mass/Vol]124 mg/dLNINF - 130 mg/dLNOMS HealthcareCLINISYNCNCLEVELAND AREA [facility] Healthcare Urinalysis macro (dipstick) panel (U)on 49-78-5889Bjdifgwei, UANegativeNegative - 4(70) +++ mg/dLNOMS HealthcareBlood, UAPositiveNegative - 50 Richy/mcLNOMS HealthcareComment on above:traceClarity, UAClearNOMS HealthcareColor, UAYellow NOMS HealthcareGlucose, UANegativeNegative - 2000(110) ++++ mg/dLNOMS Healthcare Interpretation and review of laboratory resultsAbnormalNOMS HealthcareKetones, UAPositiveNegative - 160(16) ++++ mg/dLNOMS HealthcareComment on above:15 Leukocytes, UANegativeNegative - 500+++ Tano/mcLNOMS HealthcareNitrite, UA NegativeNegative - PositiveNOMS HealthcarepH, UA75 - 9NOMS HealthcareProtein, UA NegativeNegative - 2000(20) ++++ mg/dLNOMS HealthcareSpec Grav, UA1.021 - 1.03 NOMS HealthcareUrobilinogen, UA1.00.2 - 12 mg/dLNOMS HealthcareNOMS Healthcare Urinalysis macro (dipstick) panel (U)on 79-80-4954Ayihixdnd, UANegativeNegative - 4(70) +++ mg/dLNOMS HealthcareBlood, UAPositiveNegative - 50 Richy/mcLNOMS HealthcareComment on above:trace-intactClarity, UAClearNOMS HealthcareColor, UA YellowNOMS HealthcareGlucose, UANegativeNegative - 2000(110) ++++ mg/dLNOMS HealthcareInterpretation and review of laboratory resultsAbnormalRay County Memorial Hospital Ketones, UANegativeNegative - 160(16) ++++ mg/dLNOOK HealthcareLeukocytes, UA NegativeNegative - 500+++ Tano/mcLNOOK HealthcareNitrite, UANegativeNegative - PositiveNOMS HealthcarepH, UA6.55 - 9NOMS HealthcareProtein, UANegativeNegative - 2000(20) ++++ mg/dLNOMS HealthcareSpec Grav, UA1.011 - 1.03NOMS Healthcare Urobilinogen, UA0.20.2 - 12 mg/dLNOMS HealthcareNOMS HealthcareBOX TESTon 38-08-1760JBH TEST SENT OUTUNMERCY HEALTH ST. [facility] UoecnkumzpZPP5NBWNWGIOA HealthcareBOX2 02/27/24NOOK HealthcareUNITY BOX CLINISYNCNOOK HealthcareUrine Cultureon 00-74-7850Smriawbr identified Cx Nom (U) No Growth 2 Days PERFORMED BY: [place] [address] PATHOLOGIST DISPENSARY CLERK SHEREE MCCARTHY M.D.NormalThe [facility] Physician GroupComment on above: Performed By: #### CUU #### [place] [address] USAUS OB TRANSVAGINALon 82-76-2003[place] [address] Ultrasound Report Signed Patient: SHREYA ROGERS MR#: [id number] : 1990 Acct:[id number] Age/Sex: 33 / F ADM Date: 02/11/24 Loc: NOMS Attending Dr: Slava Castro D.O. Ordering Physician: Slava Castro D.O. Date of Service: 02/11/24 Procedure(s): US OB transvaginal Accession Number(s): [id number] cc: Анна Ha CENTRAL OFFICE WORKER; Slava Castro D.O. The [place] [id number] Patient Name: SHREYA ROGERS MRN: TBH:[id number] date: 1990 Sex: F Assigned Patient Location: [facility] Current Patient Location: Accession/Order Number: [id number] Exam Date: 02/11/2024 09:39 Report Date: 02/12/2024 04:29 At the request of: SLAVA CASTRO Procedure: US OB transvaginal EXAMINATION: US [...] Single live intrauterine . Electronically authenticated by: OMAR QURESHI Date: 02/12/2024 04:29 Dictated By: Omar Qureshi M.D. Signed By: 02/12/24 0431 DD/ 0429 TD/TT: Dynamometer Repairer:DELVINadiologosman, Radiologist, - 02/12/2024 [place] [address] Ultrasound Report Signed Patient: SHREYA ROGERS MR#: [id number] : 1990 Acct:[id number] Age/Sex: 33 / F ADM Date: 02/11/24 Loc: NOMS Attending Dr: Slava Castro D.O. Ordering Physician: Slava Castro D.O. Date of Service: 02/11/24 Procedure(s): US OB transvaginal Accession Number(s): [id number] cc: Анна Ha CENTRAL OFFICE WORKER; Slava Castro D.O. [place] [address] Patient Name: SHREYA ROGERS MRN: [id number] date: 1990 Sex: F Assigned Patient Location: [facility] Current Patient Location: Accession/Order Number: [id number] Exam Date: 02/11/2024 09:39 Report Date: 02/12/2024 04:29 At the request of: SLAVA CASTRO Procedure: US OB transvaginal EXAMINATION: US [...] Single live intrauterine . Electronically authenticated by: OMAR QURESHI Date: 02/12/2024 04:29 Dictated By: Omar Qureshi M.D. Signed By: 02/12/24430 DD/ 8 TD/TT: Dynamometer Repairer: MIRANDA HealthcareRadiology Study observation (narrative)[facility] HealthcareUS OB TRANSVAGINALOrdered By: Radiologist Radiology on 42-52-3667YNBW Healthcare Work Phone: HCG ( test) Ql (U)on 60-81-5791Yzcproqfdkppus and review of laboratory resultsAbnormalNOMS HealthcarePreg Test, UrPositive NegativeNOMS HealthcareNOMS HealthcareUrinalysis macro (dipstick) panel (U)on 21-69-8721Dtsatlcct, UAPositiveNegative - 4(70) +++ mg/dLNOMS HealthcareComment on [...] 1.03 NOMS HealthcareUrobilinogen, UA0.20.2 - 12 mg/dLNOMS HealthcareNOOK Healthcare TBH PREG QUANT HCGon 01-26-0388EBL IOFVTRBEDTJE66497vDY/mLNOMS HealthcareComment on above:5-50 0.2-1 WEEK 50-500 1-2 WEEKS 100-5,000 2-3 WEEKS 500-10,000 3-4 WEEKS 1,000-50,000 4-5 WEEKS 10,000-100,000 5-6 WEEKS 15,000-200,000 6-8 WEEKS 10,000-100,000 2-3 MONTHS CLINISYNCNOMS HealthcareTBH PREG QUANT HCGon 05-83-9277LRP OGGQDTLFLZYD76287 mIU/mLNOMS HealthcareComment on above:5-50 0.2-1 WEEK 50-500 1-2 WEEKS 100-5,000 2-3 WEEKS 500-10,000 3-4 WEEKS 1,000-50,000 4-5 WEEKS 10,000-100,000 5-6 WEEKS 15,000-200,000 6-8 WEEKS 10,000-100,000 2-3 MONTHS [facility] PREG QUANT HCGon 98-18-0814XGQ MLOKWNKAUBEM26306 mIU/mLNOMS HealthcareComment on above:5-50 0.2-1 WEEK 50-500 1-2 WEEKS 100-5,000 2-3 WEEKS 500-10,000 3-4 WEEKS 1,000-50,000 4-5 WEEKS 10,000-100,000 5-6 WEEKS 15,000-200,000 6-8 WEEKS 10,000-100,000 2-3 MONTHS [facility] PREG QUANT HCGon 81-33-7952IWR OSPHDQUSBLIQ17928 mIU/mLNOMS HealthcareComment on above:5-50 0.2-1 WEEK 50-500 1-2 WEEKS 100-5,000 2-3 WEEKS 500-10,000 3-4 WEEKS 1,000-50,000 4-5 WEEKS 10,000-100,000 5-6 WEEKS 15,000-200,000 6-8 WEEKS 10,000-100,000 2-3 MONTHS [facility] PREG QUANT HCGon 00-72-7327JKJ IIMJLBSBPGQE7442 mIU/mLNOMS HealthcareComment on above:5-50 0.2-1 WEEK 50-500 1-2 WEEKS 100-5,000 2-3 WEEKS 500-10,000 3-4 WEEKS 1,000-50,000 4-5 WEEKS 10,000-100,000 5-6 WEEKS 15,000-200,000 6-8 WEEKS 10,000-100,000 2-3 MONTHS [facility] PREG QUANT HCGon 99-00-9369BHB QNPCRYCWQOHX2415 mIU/mLNOMS HealthcareComment on above:5-50 0.2-1 WEEK 50-500 1-2 WEEKS 100-5,000 2-3 WEEKS 500-10,000 3-4 WEEKS 1,000-50,000 4-5 WEEKS 10,000-100,000 5-6 WEEKS 15,000-200,000 6-8 WEEKS 10,000-100,000 2-3 MONTHS [facility] PREG QUANT HCGon 52-70-9447DVZ XFPYBVLCAFPM1468 mIU/mLNOMS HealthcareComment on above:5-50 0.2-1 WEEK 50-500 1-2 WEEKS 100-5,000 2-3 WEEKS 500-10,000 3-4 WEEKS 1,000-50,000 4-5 WEEKS 10,000-100,000 5-6 WEEKS 15,000-200,000 6-8 WEEKS 10,000-100,000 2-3 MONTHS [facility] PREG QUANT HCGon 73-30-4449HCH UZFQBJVBOKQJ783hIP/mL [facility] HealthcareComment on above:5-50 0.2-1 WEEK 50-500 1-2 WEEKS 100-5,000 2-3 WEEKS 500-10,000 3-4 WEEKS 1,000-50,000 4-5 WEEKS 10,000-100,000 5-6 WEEKS 15,000-200,000 6-8 WEEKS 10,000-100,000 2-3 MONTHS [facility] SystemIGP,APTIMA HPV,AGE GDLNon 04-74-5599YYG GDLN ACOG TESTINGNote.Ray County Memorial HospitalComment on above:TESTS RESULT FLAG UNITS REF RANGE LAB Clinician Provided Cytology Information Source.............Cervix;Endocervix No. of containers..01 ThinPrep Vial Age Algo ACOG Sylvia... 01 FLAG LEGEND: L-Low Normal,H-High Normal,LL-Alert Low,HH-Alert High <-Panic Low,>-Panic High,A-Abnormal,AA-Critical Abnormal Performed at: 01 =G [address] [place] [address] Amber Tilley MD, HPV APTIMANegativeNegativeNOMS HealthcareComment on above:This nucleic acid amplification test detects fourteen high- risk HPV types (16,18,31,33,35,39,45,51,52,56,58,59,66,68) without differentiation. Performed at: = - [facility], [place] [id number] Erp Pm: Amber Tilley MD, Phone: [phone] Performed at: [facility], [place] [id number] Erp Pm: Amber Tilley MD, Phone: [phone] IGP, APTIMA HPV, RFX 16/18,45Note.NOMS HealthcareComment on above:TESTS RESULT FLAG UNITS REF RANGE LAB DIAGNOSIS: 02 NEGATIVE FOR INTRAEPITHELIAL LESION OR MALIGNANCY. REACTIVE CELLULAR CHANGES AND/OR REPAIR ARE PRESENT. Specimen adequacy: 02 Satisfactory for evaluation. Endocervical and/or squamous metaplastic cells (endocervical component) are present. Performed by: 02 Peggy Gandhi, Diamond Wheel Molder (ASCP) Electronically si... 02 Divya Hoffman MD, [...] High,A-Abnormal,AA-Critical Abnormal Performed at: 02 [facility] [address] [place] [address] Amber Tilley MD, BRUSH-SPATULA CERVIX ENDOCERVIX CLINISYNCRay County Memorial HospitalCytology Cervical or vaginal smear or scraping studyon 95-06-9791OGSRRay County Memorial HospitalHC ( test) Ql (U)on 81-39-0170Dovhylmoqnbutd and review of laboratory resultsNormalRay County Memorial HospitalPre Test, UrNegativeECU Health Roanoke-Chowan HospitalLon 61-31-2114GDoloyzii: [id number] Received: 07/01/231304 Status: WEN Garcia Num: [id number] Spec Type: Surgical Subm Dr: Slava Castro Tissues: A Products of Conception - Spontaneous or Missed (POC) Procedures: HE/3, Gross/Micro L4 Age/ Patient Sex Location Account Attending Physician Shreya Rogers 32/F LABELL [id number] Slava Castro SPEC NUM: [id number] RECD: 07/01/23 STATUS: WEN GARCIA NUM: [id number] [place]: 06/30/[address]: Slava Castro ENTERED: 07/01/23 [facility] DR: Rosey,Lab SPEC TYPE: Surgical [...] spongy harman tissue consistent with villous tissue. Job Estimator sections are submitted in A1?A3 to include the villous tissue in A1. Clinical history: Missed TW Specimen: [id number] Received: 07/01/23 Status: WEN Hurleylamin Num: [id number] Spec Type: Surgical Subm Dr: Slava Castro Tissues: A Products of Conception - Spontaneous or Missed (POC) Procedures: HE/Ruthy, Gross/Micro L4 Patient: Shreya Rogers [id number] (Continued) Specimen: [id number] Received: 07/01/23 (Continued) Signed (signature on file) Shen Virgen MD 07/02/23 1859 Specimen: [id number] Received: 07/01/23 Status: WEN Jadiel Num: [id number] Spec Type: Surgical Subm Dr: Slava Castro Tissues: A Products of Conception - Spontaneous or Missed (POC) Procedures: Meghan BLAKE/Maksim L4 Patient: Shreya Rogers [id number] (Continued) Specimen: [id number] Received: 07/01/23 (Continued) CPT Codes 52380 Specimen: [id number] Received: 07/01/23 Status: WEN Garcia Num: [id number] Spec Type: Surgical Subm Dr: Slava Castro Tissues: A Products of Conception - Spontaneous or Missed (POC) Procedures: HE/3, Meghan/Maksim L4 Patient: Shreya Rogers [id number] (Continued) Signed (signature on file) Shen Virgen MD 07/02/[address] [place] [address] Physician GroupUS ABNER MKCNIGHTVAGINLo [id number] [address] Ultrasound Report Signed Patient: SHREYA ROGERS Mel MR#: [id number] : 1990 Acct:[id number] Age/Sex: 32 / F ADM Date: 06/26/23 Loc: NOMS Attending Dr: Slava Castro D.O. Ordering Physician: Slava Castro D.O. Date of Service: 06/26/23 Procedure(s): US OB transvaginal Accession Number(s): [id number] cc: Анна Ha NP; Slava Castro D.O. The [place] [id number] Patient Name: SHREYA ROGERS MRN: [facility]:[id number] date: 1990 Sex: F Assigned Patient Location: [facility] Current Patient Location: [facility] Accession/Order Number: [id number] Exam Date: 06/26/2023 09:09 Report Date: 06/26/2023 10:14 At the request of: SLAVA CASTRO Procedure: US OB transvaginal EXAMINATION: US [...] consistent with demise Electronically authenticated by: MARE AMEZCUA Date: 06/26/2023 10:14 Dictated By: Mare Amezcua M.D. Signed By: 06/26/23 1016 DD/ 1014 TD/TT: Dynamometer Repairer:DELVINadiologosman, Radiologist, - 06/26/2023 [place] [address] Ultrasound Report Signed Patient: SHREYA ROGERS MR#: [id number] : 1990 Acct:[id number] Age/Sex: 32 / F ADM Date: 06/26/23 Loc: [facility]OM[facility] Attending Dr: Slava Castro D.O. Ordering Physician: Slava Castro D.O. Date of Service: 06/26/23 Procedure(s): US OB transvaginal Accession Number(s): [id number] cc: Анна Ha CENTRAL OFFICE WORKER; Slava Castro D.O. [place] [address] Patient Name: SHREYA ROGERS MRN: [id number] date: 1990 Sex: F Assigned Patient Location: [facility] Current Patient Location: [facility] Accession/Order Number: [id number] Exam Date: 06/26/2023 09:09 Report Date: 06/26/2023 10:14 At the request of: SLAVA CASTRO Procedure: US OB transvaginal EXAMINATION: US [...] consistent with demise Electronically authenticated by: MARE AMEZCUA Date: 06/26/2023 10:14 Dictated By: Mare Amezcua M.D. Signed By: 06/26/23 1016 DD/ 1014 TD/TT: Dynamometer Repairer: MIRANDA HealthcareRadiology Study observation (narrative)[facility] HealthcareUS OB TRANSVAGINALOrdered By: Radiologist Radiology on 99-17-2167UAZW [employer] Work Phone: OB TRANSVAGINALon 53-81-5650[place]ggM[place] [address] Ultrasound Report Signed Patient: SHREYA ROGERS MR#: [id number] : 1990 Acct:[id number] Age/Sex: 32 / F ADM Date: 06/20/23 Loc: [facility] Attending Dr: Slava Castro D.O. Ordering Physician: Slava Castro D.O. Date of Service: 06/20/23 Procedure(s): US OB transvaginal Accession Number(s): [id number] cc: Анна Ha CENTRAL OFFICE WORKER; Slava Castro D.O. [place] [id number] Patient Name: SHREYA ROGERS MRN: [id number]:[id number] date: 1990 Sex: F Assigned Patient Location: [facility] Current Patient Location: [facility] Accession/Order Number: [id number] Exam Date: 06/20/2023 08:31 Report Date: 06/20/2023 12:10 At the request of: SLAVA CASTRO Procedure: US OB transvaginal EXAMINATION: US [...] with miscarriage/ demise Electronically authenticated by: MARE AMEZCUA Date: 06/20/2023 12:10 Dictated By: Mare Amezcua M.D. Signed By: 06/20/23 1212 DD/ 1210 TD/TT: Dynamometer Repairer:DELVINadiologosman, Radiologist, - 06/20/2023 The [place] [id number] Ultrasound Report Signed Patient: SHREYA ROGERS MR#: [id number] : 1990 Acct:[id number] Age/Sex: 32 / F ADM Date: 06/20/23 Loc: [facility]OM[facility] Attending Dr: Slava Castro D.O. Ordering Physician: Slava Castro D.O. Date of Service: 06/20/23 Procedure(s): US OB transvaginal Accession Number(s): [id number] cc: Анна Ha CENTRAL OFFICE WORKER; Slava Castro D.O. The [place] [id number] Patient Name: SHREYA ROGERS MRN: [id number] date: 1990 Sex: F Assigned Patient Location: [facility] Current Patient Location: [facility] Accession/Order Number: [id number] Exam Date: 06/20/2023 08:31 Report Date: 06/20/2023 12:10 At the request of: SLAVA CASTRO Procedure: US OB transvaginal EXAMINATION: US [...] with miscarriage/ demise Electronically authenticated by: MARE AMEZCUA Date: 06/20/2023 12:10 Dictated By: Mare Amezcua M.D. Signed By: 06/20/23 1212 DD/ 1210 TD/TT: Dynamometer Repairer: MIRANDA HealthcareRadiology Study observation (narrative)[facility] HealthcareUS OB TRANSVAGINALOrdered By: Radiologist Radiology on 02-20-3348XODI Healthcare Work Phone: tbH PREG QUANT HCGon 48-98-2838QLV APPQETXLCQOV14614 mIU/mLNOMS HealthcareComment on above:5-50 0.2-1 WEEK 50-500 1-2 WEEKS 100-5,000 2-3 WEEKS 500-10,000 3-4 WEEKS 1,000-50,000 4-5 WEEKS 10,000-100,000 5-6 WEEKS 15,000-200,000 6-8 WEEKS 10,000-100,000 2-3 MONTHS CLINISYNCNOOK HealthcareUS OB TRANSVAGINALon 33-82-7553[place] [address] Ultrasound Report Signed Patient: SHREYA ROGERS MR#: [id number] : 1990 Acct:[id number] Age/Sex: 32 / F ADM Date: 06/13/23 Loc: [facility] Attending Dr: Slava Castro D.O. Ordering Physician: Slava Castro D.O. Date of Service: 06/13/23 Procedure(s): US OB transvaginal Accession Number(s): [id number] cc: Анна Ha CENTRAL OFFICE WORKER; Slava Castro D.O. The [address] [address] Patient Name: HSREYA ROGERS MRN: [id number]:[id number] date: 1990 Sex: F Assigned Patient Location: [facility] Current Patient Location: [facility] Accession/Order Number: [id number] Exam Date: 06/13/2023 09:58 Report Date: 06/13/2023 11:13 At the request of: SLAVA CASTRO Procedure: US OB transvaginal EXAMINATION: US [...] completely excluded. Follow-up recommended. Electronically authenticated by: OMAR QURESHI Date: 06/13/2023 11:13 Dictated By: Omar Qureshi M.D. Signed By: 06/13/23 1116 DD/ 1113 TD/TT: Dynamometer Repairer:TBHRadiology, Radiologist, MD - 06/13/2023 [place] [address] Ultrasound Report Signed Patient: SHREYA ROGERS MR#: [id number] : 1990 Acct:[id number] Age/Sex: 32 / F ADM Date: 06/13/23 Loc: [facility] Attending Dr: Slava Castro D.O. Ordering Physician: Slava Castro D.O. Date of Service: 06/13/23 Procedure(s): US OB transvaginal Accession Number(s): [id number] cc: Анна Ha CENTRAL OFFICE WORKER; Slava Castro D.O. The [place] [id number] Patient Name: SHREYA ROGERS MRN: [facility]:[id number] date: 1990 Sex: F Assigned Patient Location: [facility] Current Patient Location: [facility] Accession/Order Number: [id number] Exam Date: 06/13/2023 09:58 Report Date: 06/13/2023 11:13 At the request of: SLAVA CASTRO Procedure: US OB transvaginal EXAMINATION: US [...] completely excluded. Follow-up recommended. Electronically authenticated by: OMAR QURESHI Date: 06/13/2023 11:13 Dictated By: Omar Qureshi M.D. Signed By: 06/13/23 1116 DD/ 1113 TD/TT: Dynamometer Repairer: MIRANDA HealthcareRadiology Study observation (narrative)[facility] HealthcareUS OB TRANSVAGINALOrdered By: Radiologist Radiology on 15-94-5149KQZY [employer] Work Phone: [phone]-91 PCR (CVDTB)on 86-68-1830GBAJ-CoV-2 (COVID- 19) RNA JUAN+probe Ql (Unsp spec)Not detectedNormalNOT DETECTEDThe [facility] Cleveland EastComment on above:Result Comment: This test is not yet approved or cleared by the [place] FDA. When there are no FDA-approved or cleared tests available, and other criteria are met, FDA can make tests available under an emergency access mechanism called an Emergency Use Authorization (EUA). The EUA for this test is supported by the Machine Ii Coremaker of Health and Human Service's (HHS's) declaration [...] consistent with SARS-CoV-2.Performed By: #### CVDTBH #### [facility] [address] [place] [address] Dr. Luis CRUZ [facility] 09-31-2466JTFWSUHQKMKCI BELOWKettering Health DaytonComment on above:Result Comment: Negative for Flu B protein antigen. Infection due to Flu B cannot be ruled out. FluB antigen in the sample may be below the detection limit of the test.Performed By: #### INFLUAB #### [facility] [address] [place] [address] Dr. Luis Johnson AGPositiveAbnormalNEGATIVE SEE COMMENTThe [facility] Cleveland EastComment on above:Performed By: #### INFLUAB #### [facility] [address] [place] [address] Dr. Luis Junior AGNegativeNormalNEGATIVE SEE COMMENTThe [facility] Institutement on above:Performed By: #### INFLUAB #### [facility] [address] [place] [address] Dr. Luis Garg CHEST 1 Von 71-76-2765TD CHEST 1 VEXAM: CHEST 1 VIEW HISTORY: COUGH TECHNIQUE: Chest, one view. COMPARISON: None. FINDINGS: Lungs are clear. No focal consolidation, pleural effusion, or pneumothorax. Pulmonary vasculature is within normal limits. Cardiomediastinal silhouette is normal. IMPRESSION: 1. No acute cardiopulmonary disease. Electronically authenticated by: PHOEBE ALFARO Date: 2022-02-20 17:46[facility] ACOG PANEL 2: 30 to 65on 11-13-2021..NormalThe [facility] on above:Result Comment: Performed at: WBPerformed By: #### [id number] #### [facility] [address] [place] [address] Dr. Luis VirgenAge Gdln ACOG Tgxiycp70-50ZnblzzIaxShelby Memorial Hospital on above:Performed By: #### [id number] #### [facility] [address] [place] [address] Dr. Luis VirgenDIAGNOSIS:CommentMary Rutan Hospital on above: Result Comment: NEGATIVE FOR INTRAEPITHELIAL LESION OR MALIGNANCY. Performed at: WBPerformed By: #### [id number] #### [facility] [address] [place] [address] Dr. Luis VirgenHPV AptimaNegativeNormalNegativeAkron Children's Hospital on above:Result Comment: This nucleic acid amplification test detects fourteen high-risk HPV types (16,18,31,33,35,39,45,51,52,56,58,59,66,68) without differentiation. Performed at: =GPerformed By: #### [id number] #### [place] [address] Dr. Luis VirgenMethodology:CommentMary Rutan Hospital on above: Result Comment: This liquid based ThinPrep(R) pap test was screened with the use of an image guided system. Performed at: WBPerformed By: #### [id number] #### [place] [address] Dr[address] Luis VirgenNote:CommentMary Rutan Hospital on above:Result Comment: The Pap smear is a screening test designed to aid in the detection of premalignant and malignant conditions of the uterine cervix. It is not a diagnostic procedure and should not be used as the sole means of detecting cervical cancer. Both false-positive and false-negative reports do occur. . Performed at: WBPerformed By: #### [id number] #### [facility] [address] [place] [address] Dr. Luis VirgenPerformed by:CommentMary Rutan Hospital on above: Result Comment: Rolando Del Cid Diamond Wheel Molder (ASCP) Performed at: WBPerformed By: #### [id number] #### [facility] [address] [place] [address] Dr. Luis Solanoimeramona adequacy:CommentNormalThe [facility] EastComment on above:Result Comment: Satisfactory for evaluation. Endocervical and/or squamous metaplastic cells (endocervical component) are present. Performed at: WBPerformed By: #### [id number] #### [facility] [address] [place] [address] Dr. Luis VirgenPREGNANCY URon 55-59-9875YBDBLUPEX, QUALNegativeNormalNEGATIVEThe [facility] EastComment on above:Performed By: #### PREGU #### [facility] [address] [place] [address] Dr. Luis VirgenCBC AUTO DIFFon 72-12-9254ZRIK #0.0 103/ulNormal0.0-0.1The [facility] on above:Performed By: #### CBC #### [facility] [address] [place] [address] Dr. Luis VirgenBasophils/100 WBC (Bld)0.3 %Normal0.2-2.0[facility] Comment on above:Performed By: #### CBC #### [facility] [address] [place] [address] [address] Luis Galeas #0.0 103/ulNormal0.0-0.7The [facility] on above: Performed By: #### CBC #### [facility] [address] [place] [address] Dr. Luis Starkosinophils/100 WBC (Bld)0.3 %Critically low0.9-7.0The [facility] EastComment on above:Performed By: #### CBC #### [facility] [address] [place] [address] Dr. Luis Starkrythrocyte distribution width (RBC) [Ratio]12.6 %Inzofz71.0-15.0 The [facility] EastComment on above:Performed By: #### CBC #### [facility] [address] [place] [address] Dr. Luis VirgenHematocrit (Bld) [Volume fraction]41.5 %Eottch51.0-48.0The [facility] Cleveland EastComment on above:Performed By: #### CBC #### [facility] [address] [place] [address] Dr. Luis VirgenHemoglobin (Bld) [Mass/Vol]13.5 g/jLIuvcoa80.0-16.0The [facility] EastComment on above:Performed By: #### CBC #### [facility] [address] [place] [address] Dr. Luis Perkins #0.03 10e3/ulNormal0.00-0.03The [facility] EastComment on above:Performed By: #### CBC #### [facility] [address] [place] [address] Dr. Luis Perkins %0.4 %Normal0.0-0.5The [facility] EastComment on above: Performed By: #### CBC #### [facility] [address] [place] [address] Dr. Luis Mirza #2.4 103/ulNormal1.2-3.8The [facility] EastComment on above:Performed By: #### CBC #### [facility] [address] [place] [address] Dr. Luis Encinashocytes/100 WBC (Bld)31.8 %Mkgxqz93.5-60.0The [facility] EastComment on above:Performed By: #### CBC #### [facility] [address] [place] [address] Dr. Luis SepulvedaUAL DIFF REQNONormalThe [facility] EastComment on above: Performed By: #### CBC #### [facility] [address] [place] [address] Dr. Luis Stark (RBC) [Entitic mass]30.5 nxVkwbdm73.7-34.0The [facility] EastComment on above:Performed By: #### CBC #### [facility] [address] [place] [address] Dr. Luis Alfaro (RBC) [Mass/Vol]32.5 g/eVRfhseh80.9-35.2The [facility] EastComment on above:Performed By: #### CBC #### [facility] [address] [place] [address] Dr. Luis Echevarria (RBC) [Entitic vol]93.9 sUFodznm01.0-99.0The [facility] EastComment on above:Performed By: #### CBC #### [facility] [address] [place] [address] Dr. Luis Meza #0.6 103/ulNormal0.3-0.8The [facility] EastComment on above:Performed By: #### CBC #### [facility] [address] [place] [address] Dr. Luis Vincentocytes/100 WBC (Bld)7.4 %Normal1.7-12.0The [facility] Comment on above:Performed By: #### CBC #### [facility] [address] [place] [address] Dr. Luis Roger #4.5 103/ulNormal1.4-6.5The [facility] EastComment on above:Performed By: #### CBC #### [facility] [address] [place] [address] Dr. Luis Geutrophils/100 WBC (Bld)59.8 %Mblcno41.0-75.0The [facility] EastComment on above:Performed By: #### CBC #### [facility] [address] [place] [address] Dr. Luis Stoddardlet mean volume (Bld) [Entitic vol]10.0 fLNormal9.5-13.5The [facility] EastComment on above:Performed By: #### CBC #### [facility] [address] [place] [address] Dr. Luis CrossT337 103/qxFyasip739-243Jbi [facility] EastComment on above: Performed By: #### CBC #### [facility] [address] [place] [address] Dr. Luis VirgenRBC4.42 106/ulNormal4.20-5.40The [facility] EastComment on above:Performed By: #### CBC #### [facility] [address] [place] [address] Dr. Luis VirgenWBC7.6 103/ulNormal4.0-11.0The [facility] EastComment on above: Performed By: #### CBC #### [facility] [address] [place] [address] Dr. Luis VirgenFRWOODROW T4on 17-16-7440Wwtg T4 [Mass/Vol]0.91 ng/dLNormal0.76-1.46 The [facility] EastComment on above:Performed By: #### FT4 #### [facility] [address] [place] [address] Dr. Luis SarmientoID PROFILEon 19-78-5804XGEG-HDL RATIO NORMSEE BELOWKettering Health DaytonComment on above:Result Comment: 3.3 - 4.4 LOW RISK 4.4 - 7.1 AVERAGE RISK 7.1 - 11.0 MODERATE RISK >11.0 HIGH RISKPerformed By: #### CMP, TSH, LIPID #### [facility] [address] [place] [address] Dr. Luis Shinesterol [Mass/Vol]154 mg/dLNormal<=200The [facility] Comment on above:Performed By: #### CMP, TSH, LIPID #### [facility] [address] [place] [address] Dr. Luis Shinesterol in HDL [Mass/Vol]35 mg/dLCritically eqp01-47Lkp [facility] EastComselect specialty hospital on above:Performed By: #### CMP, TSH, LIPID #### [facility] [address] [place] [address] Dr. Luis Shinestergoldie in LDL [Mass/Vol]80.8 mg/dLNoCincinnati Shriners HospitalComselect specialty hospital on above:Performed By: #### CMP, TSH, LIPID #### [facility] [address] [place] [address] Dr. Yilan ChangCholesterol.total/Cholesterol in HDL [Mass ratio]4.4 {ratio} NormalThe [facility] EastComment on above:Performed By: #### CMP, TSH, LIPID #### [facility] [address] [place] [address] Dr. Luis Abernathy NORMAL> or = 60 mg/dl - LOW CARDIOVASCULAR RISK <40 mg/dl - HIGH CARDIOVASCULAR RISKKettering Health DaytonComment on above:Performed By: #### CMP, TSH, LIPID #### [facility] [address] [place] [address] Dr. Luis VirgenLDL CALC NORMALSEE BELOWKettering Health DaytonComment on above:Result Comment: <100 mg/dl OPTIMAL 100 - 129 mg/dl NEAR OR ABOVE OPTIMAL 130 - 159 mg/dl BORDERLINE HIGH 160 - 189 mg/dl HIGH >190 mg/dl VERY HIGH Performed By: #### CMP, TSH, LIPID #### [facility] [address] [place] [address] Dr. Luis VirgenTriglyceride [Mass/Vol]191 mg/dLCritically high<=150The [facility] EastComment on above:Performed By: #### CMP, TSH, LIPID #### [facility] [address] [place] [address] Dr. Luis Macias CALC38.2 mg/dLNoCincinnati Shriners HospitalComselect specialty hospital on above: Performed By: #### CMP, TSH, LIPID #### [facility] [address] [place] [address] Dr. Luis VirgenPROStephanie 14(COMP METB)on 45-90-0922Gwnefjm [Mass/Vol]4.1 g/dLNormal 3.4-5.0[address] HospitalComment on above:Performed By: #### CMP, TSH, LIPID #### [facility] [address] [place] [address] Dr. Luis VirgenAlbumin/Globulin [Mass ratio]1.2 {ratio}NormalThe [facility] Hospital [facility] EastComment on above:Performed By: #### CMP, TSH, LIPID #### [facility] [address] [place] [address] Dr. Luis AntunezP [Catalytic activity/Vol]73 U/QBtoqpx59-430Hyl [facility] EastComment on above:Performed By: #### CMP, TSH, LIPID #### [facility] [address] [place] [address] Dr. Luis AntunezT [Catalytic activity/Vol]24 U/LCbnsfz65-26Yra [facility] EastComment on above:Performed By: #### CMP, TSH, LIPID #### [facility] [address] [place] [address] Dr. Luis Neveson gap [Moles/Vol]13.2 mmol/LNormalWilson [address] Hospital Comment on above:Performed By: #### CMP, TSH, LIPID #### [facility] [address] [place] [address] Dr. Luis VirgenAST [Catalytic activity/Vol]11 U/LCritically qin42-60JnuWilson Street HospitalComment on above:Performed By: #### CMP, TSH, LIPID #### [facility] [address] [place] [address] Dr. Luis VirgenBilirubin [Mass/Vol]0.8 mg/dLNormal0.2-1.0The [facility] Comment on above:Performed By: #### CMP, TSH, LIPID #### [facility] [address] [place] [address] Dr. Luis VirgenCalcium [Mass/Vol]8.9 mg/dLNormal8.5-10.1[facility] Comment on above:Performed By: #### CMP, TSH, LIPID #### [facility] [address] [place] [address] Dr. Luis VirgenChloride [Moles/Vol]103 mmol/WTcuvbg92-102Fac [facility] Comment on above:Performed By: #### CMP, TSH, LIPID #### [facility] [address] [place] [address] Dr. Luis VirgenCO2 [Moles/Vol]27.5 mmol/TRjdxgc81.0-32.0The [facility] Comment on above:Performed By: #### CMP, TSH, LIPID #### [facility] [address] [address] [address] Luis VirgenCreatinine [Mass/Vol]0.71 mg/dLNormal0.55-1.02The [facility] EastComment on above:Performed By: #### CMP, TSH, LIPID #### [facility] [address] [address] [address] Luis StarkGFR-AF MACANESE>60Normal>=60The [facility] EastComment on above:Performed By: #### CMP, TSH, LIPID #### [facility] [address] [address] [address] Luis StarkGFR-NON AF MACANESE>60Normal>=60The [facility] EastComment on above:Performed By: #### CMP, TSH, LIPID #### [facility] [address] [address] [address] Luis VirgenGlobulin (S) [Mass/Vol]3.5 g/dLNormalThe [facility] EastComment on above:Performed By: #### CMP, TSH, LIPID #### [facility] [address] [address] [address] Luis VirgenGlucose [Mass/Vol]101 mg/vNEukhcv63-879PofWilson Street Hospital Comment on above:Performed By: #### CMP, TSH, LIPID #### [facility] [address] [address] [address] Luis VirgenPotassium [Moles/Vol]4.7 mmol/LNormal3.5-5.1The [facility] Comment on above:Performed By: #### CMP, TSH, LIPID #### [facility] [address] [address] [address] Luis VirgenProtein [Mass/Vol]7.6 g/dLNormal6.4-8.2The [facility] Comment on above:Performed By: #### CMP, TSH, LIPID #### [facility] [address] [address] [address] Luis VirgenSodium [Moles/Vol]139 mmol/ENohbrs513-400Thg [facility] Comment on above:Performed By: #### CMP, TSH, LIPID #### [facility] [address] [address] [address] Luis Robles nitrogen [Mass/Vol]9.0 mg/dLNormal7.0-18.0[address] HospitalComment on above:Performed By: #### CMP, TSH, LIPID #### [facility] [address] [place] [address] Dr. Luis VirgenUrea nitrogen/Creatinine [Mass ratio]12.7 mg/mgNoCincinnati Shriners HospitalComment on above:Performed By: #### CMP, TSH, LIPID #### [facility] [address] [place] [address] Dr. Luis Cai 43-86-4872XIB8.924 uIU/mLNormal0.358-3.740[address] HospitalComment on above:Performed By: #### CMP, TSH, LIPID #### [facility] [address] [place] [address] Dr. Luis Major [facility] BELOWKettering Health DaytonComment on above: Result Comment: <0.34 UIU/ml HYPERTHYROID 0.34-5.60 UIU/ml EUTHYROID >5.60 UIU/ml HYPOTHYROIDPerformed By: #### CMP, TSH, LIPID #### [facility] [address] [place] [address] Dr. Luis Virgen Vital Signs Date TimeVital SignValuePerforming JbpzcalsvMaeymcjf73-54-9125 15:15-0400Body mass index (BMI) [Ratio]31.25 kg/y7Elkgi Gloria DO Work Phone: [facility] HospitalVunofwcfpk00-78-9388 15:15-0400Body njprli58.03 kgCorey Gloria DO Work Phone: [facility] HospitalBeaerqyhhb64-41-3851 15:15-0400Diastolic blood fjqfywpw46 mm[Hg]Slava Gloria DO Work Phone: [facility] HospitalKflwtiejtt96-40-6968 15:15-0400Systolic blood rqdolrho691 mm[Hg]Slava Gloria DO Work Phone: [facility] HospitalKjbqrbqfmb48-36-2136 13:29-0400Body mass index (BMI) [Ratio]31.33 kg/m2Vidya Coco DESAI Work Phone: [facility] HospitalGdqmwqmjbm03-20-8905 13:29-0400Body .21 kgVidya Coco DESAI Work Phone: [facility] HospitalLvbyfilogb04-51-2257 13:29-0400Diastolic blood mm[Hg]Vidya Coco DESAI Work Phone: [facility] HospitalZlsvmwogyw86-73-1215 13:29-0400Systolic blood ofrivgis661 mm[Hg]Vidya Coco DESAI Work Phone: [phone] [place], [place] [address]Kmtqylzgiq12-93-8591 09:59-0400Body mass index (BMI) [Ratio]33.78 kg/n8Sslwt Gloria DO Work Phone: [phone] [place], [place] [address]Rxwefsxjlm93-76-5575 09:59-0400Body .1 kg Slava Gloria DO Work Phone: [phone]-[facility] HospitalHetkszdhks49-17-6001 09:59-0400Diastolic blood fkutfjau16 mm[Hg]Slava Gloria DO Work Phone: [facility] HospitalIenfdqhklh10-17-4475 09:59-0400Systolic blood dkxlsods474 mm[Hg]Slava Gloria DO Work Phone: [phone] [place], [place] [address]Bougjifcdc30-43-7495 12:02-0400Body mass index (BMI) [Ratio]33.47 kg/n7Oodbd Gloria DO Work Phone: [phone] [place], [place] [address]Gvhueznink94-04-5998 12:02-0400Body .34 kgCorey Gloria DO Work Phone: [phone] [place] [address]-17-2025 12:02-0400Diastolic blood swncnxva22 mm[Hg]Slava Gloria DO Work Phone: [phone]-[facility] HospitalHcgyqilton05-94-9701 12:02-0400Systolic blood hevbafbw395 mm[Hg]Slava Gloria DO Work Phone: [address] [address]Ucuonexgnd15-01-6887 13:02-0400Body mass index (BMI) [Ratio]33.78 kg/m2Анна Ha CENTRAL OFFICE WORKER Work Phone: [facility] HospitalFyetjnnzqt29-25-4975 13:02-0400Body temperature 98.01 [degF]Анна Ha CENTRAL OFFICE WORKER Work Phone: [address] [address]Oxavugkwqa11-72-3798 13:02-0400Body opkqjs08.1 kg Аннаkinjal Ha CENTRAL OFFICE WORKER Work Phone: [facility] HospitalQxpleprlwp79-11-7215 13:02-0400Diastolic blood vzqwuamp21 mm[Hg]Анна Nealz CENTRAL OFFICE WORKER Work Phone: [facility] HospitalCyebpwquka36-69-2208 13:02-0400Heart rate94 /min Аннаkinjal Nealz CENTRAL OFFICE WORKER Work Phone: [facility] HospitalGsagzgjzvw24-24-1864 13:02-0400Respiratory rate18 /minLisa Ha CENTRAL OFFICE WORKER Work Phone: [address] [address]Iyjiyjybuo52-08-5231 13:02-4458VfL5% (BldA) [Mass fraction]98 %Анна Ha CENTRAL OFFICE WORKER Work Phone: [address] [address]Hqnkhsrrgc31-56-0499 13:02-0400Systolic blood dpxcbbdi743 mm[Hg]Анна Ha CENTRAL OFFICE WORKER Work Phone: [facility] HospitalLodxtcezys23-78-7829 10:47-0400Body mass index (BMI) [Ratio]33.6 kg/h8Fuyki Gloria DO Work Phone: [facility] HospitalXfajurdhok12-66-1466 10:47-0400Body ljfuir75.65 kgCorey Gloria DO Work Phone: [facility] HospitalTdkppeekbw72-07-2415 10:47-0400Diastolic blood fdlymxsl61 mm[Hg]Slava Gloria DO Work Phone: [address] [address]Rkjgnleicj60-61-7213 10:47-0400Systolic blood mm[Hg]Slava Gloria DO Work Phone: [phone] [place], [place] [address]Jcmkyubvph46-16-3863 09:37-0400Body mass index (BMI) [Ratio]33.07 kg/g3Nlozaopw Mehul CENTRAL OFFICE WORKER Work Phone: [phone] [place], [place] [address]Zjnossvwue05-52-8174 09:37-0400Body nertif68.38 kgKrlucy Mehul CENTRAL OFFICE WORKER Work Phone: [phone] [place], [place] [address]Uahxzzhzkg42-42-5484 09:37-0400Diastolic blood urlsclzi90 mm[Hg]Cely Mehul CENTRAL OFFICE WORKER Work Phone: [phone] [place], [place] [address]Lonujoiuzi22-35-0853 09:37-0400Systolic blood mfbeovwt008 mm[Hg]Cely Nolenerly CENTRAL OFFICE WORKER Work Phone: [phone] [place], [place] [address]Ywcilkayfe60-46-9706 14:31-0400Body mass index (BMI) [Ratio]32.95 kg/a1Jvetr Gloria DO Work Phone: [phone] [place], [place] [address]Qkoxhwvaji11-42-8561 14:31-0400Body mcqjtu22.11 kgCorey Gloria DO Work Phone: [phone] [place], [place] [address]Taewqlgsds99-47-1549 14:31-0400Diastolic blood polxcbjs87 mm[Hg]Slava Gloria DO Work Phone: [phone] [place], [place] [address]Xyvhnidqbj12-64-7088 14:31-0400Systolic blood roywgvjv274 mm[Hg]Slava Gloria DO Work Phone: [phone] [place], [place] [address]Ddkjheetid79-95-7004 14:30-0400Body mass index (BMI) [Ratio]33.14 kg/m2Vidya DESAI Work Phone: [phone] [place], [place] [address]Xcbhwhxynq55-89-1915 14:30-0400Body ucliza16.56 kgVidya DESAI Work Phone: [phone])722-[address] [place], [place] [address]Jjrellbyta15-10-3646 14:30-0400Diastolic blood mm[Hg]Vidya DESAI Work Phone: [phone] [place], [place] [address]Ckpmbfjwcg85-79-1625 14:30-0400Systolic blood rdfieqbq337 mm[Hg]Vidya DESAI Work Phone: [phone] [place], [place] [address]Xzjfhllruf77-09-0567 14:09-0400Body mass index (BMI) [Ratio]32.69 kg/e6Ytuju Gloria DO Work Phone: [phone]-[facility] HospitalNxaochgcty59-38-7724 14:09-0400Body jdpwqi92.47 kgCorey Gloria DO Work Phone: [phone] [place], [place] [address]Vvqehnmebh29-19-2953 14:09-0400Diastolic blood baweogil05 mm[Hg]Slava Gloria DO Work Phone: [phone] [place], [place] [address]Klbgcgcexo30-37-3886 14:09-0400Systolic blood pzinxrat132 mm[Hg]Slava Gloria DO Work Phone: [phone] [place], [place] [address]Dunchwegnd21-47-9552 14:05-0400Body mass index (BMI) [Ratio]32.12 kg/d9BijevynkCely Carver CENTRAL OFFICE WORKER Work Phone: [phone] [place], [place] [address]Nbslxvdqfq85-28-5125 14:05-0400Body ejxxug07.11 kgCely Carver CENTRAL OFFICE WORKER Work Phone: [phone] [place], [place] [address]Lbgnwbyvws31-83-5684 14:05-0400Diastolic blood keamodqb09 mm[Hg]Cely Carver CENTRAL OFFICE WORKER Work Phone: [phone] [place], [place] [address]Yhculxzxei63-26-8676 14:05-0400Systolic blood exjpmkby332 mm[Hg]Cely Carver CENTRAL OFFICE WORKER Work Phone: [phone] [place], [place] [address]Kvzxsyxinp76-10-0270 15:02-0500Body mass index (BMI) [Ratio]30.8 kg/m2Vidya DESAI Work Phone: [phone] [place], [place] [address]Fupwzyavwf00-76-8884 15:02-0500Body ajzcdy84.94 kgVidya DESAI Work Phone: [phone]-[facility] HospitalPwpowgjaoa36-64-7129 15:02-0500Diastolic blood mwdihzll24 mm[Hg]Vidya DESAI Work Phone: [facility] HospitalOoxppamfcy24-43-8934 15:02-0500Systolic blood xziepvga161 mm[Hg]Vidya Sepulveda PA Work Phone: [phone])729-[facility] HospitalUnvbinxtbu38-61-8103 14:45-0500Body mass index (BMI) [Ratio]30.63 kg/p9Uftgi Gloria DO Work Phone: [facility] HospitalHszsifgumm35-66-6006 14:45-0500Body .54 kgCorey Gloria DO Work Phone: [phone] [place], [place] [address]Onzruvlgij02-12-2548 14:45-0500Diastolic blood btfuaofy34 mm[Hg]Slava Gloria DO Work Phone: [phone] [place], [place] [address]Ddyfdwmaum31-73-1207 14:45-0500Systolic blood yieqkmnr281 mm[Hg]Slava Gloria DO Work Phone: [phone] [place], [place] [address]Zsrfhrkxnw36-83-8044 10:34-0500Body mass index (BMI) [Ratio]30.69 kg/m2[facility]12-18-2024 10:34-0500Body zkopgm49.66 kgDeaconess [facility]12-18-2024 10:34-0500Diastolic blood hakgorpv09 mm[Hg][facility]12-18-2024 10:34-0500Systolic blood rbvwlino886 mm[Hg][facility]10-16-2024 13:12-0400Body mass index (BMI) [Ratio]30.76 kg/n6Ijfwn Gloria DO Work Phone: [phone] [place], [place] [address]Cpsuwzrlmv50-19-7402 13:12-0400Body zufurm73.85 kgCorey Gloria DO Work Phone: [phone] [place], [place] [address]Ulojroiauj30-24-9964 13:12-0400Diastolic blood exdrdcso28 mm[Hg]Slava Gloria DO Work Phone: [facility] HospitalJqxgohcncp85-36-5178 13:12-0400Systolic blood fpimvjfj121 mm[Hg]Slava Gloria DO Work Phone: [facility] Encounters Encounter DateEncounter TypeCare ProviderFacilityStart: 12-15-2024 End: 02-19-6759Omczmsq encounter procedureCorey Gloria DO Work Phone: [facility] Work Phone: Start: 12-15-2024 End: 33-10-7930Hifuptgi preventive med est patient 18-39 yrsCorey Gloria DO Work Phone: [facility] OBGYNComment on above:Well woman exam with routine gynecological examStart: 12-15-2024 End: 25-86-6161vvdzrorfkkMJEOT FAZIONot AvailableStart: 12-15-2024 End: 64-70-2622Rqudci flowsheetCorey Gloria DO Work Phone: [facility]BGYNStart: 12-15-2024 End: 18-73-0987Rxqaxm flowsheetCorey Gloria DO Work Phone: [facility] OBGYNStart: 12-15-2024 End: 19-79-6240Wlteeoiqt Result EncounterCorey Gloria DO Work Phone: no External Department UnsolicitedStart: 10-26-2024 End: 36-35-5069daqigvooexLms Ramey PA Work Phone: [facility]BGYNStart: 10-26-2024 End: 62-93-9772Ierllx-up encounterVidya DESAI Work Phone: [facility]BGYNComment on above:6 weeks follow-up ([facility])Start: 09-15-2024 End: 57-36-8484Gsbmrcyed Result EncounterCorey Lgoria DO Work Phone: [facility] External Department UnsolicitedStart: 09-15-2024 End: 25-89-0973Ygqbmdmex Result EncounterCorey Gloria DO Work Phone: noMS External Department UnsolicitedStart: 09-14-2024 End: 21-06-1174Lnfqsp flowsheetCorey Gloria DO Work Phone: [facility] BCP OBStart: 09-14-2024 End: 61-73-0145Mypdpl flowsheetCorey Gloria DO Work Phone: [facility] BCP OBStart: 09-14-2024 End: 83-99-9151Apgoszxjg Result EncounterCorey Gloria DO Work Phone: noms External Department UnsolicitedStart: 09-14-2024 End: 31-21-0772Hmcgiv outpatient visit 15 minutesCorey Gloria DO Work Phone: [facility] OBGYNComment on above:38 weeks gestation of ([facility]); Third trimester ([facility]); Antepartum multigravida of advanced maternal age ([facility]); SGA (small for gestational age) ([facility]); History of gestational diabetesStart: 09-14-2024 End: 25-84-8955vsrhmxkxppOHOLT FAZIONot AvailableStart: 09-12-2024 End: 12-28-4352Xfcinsecj Result EncounterGeneric External Data ProviderNOMS External Department UnsolicitedStart: 09-12-2024 End: 38-63-1502Xtipghwfo Result EncounterGeneric External Data ProviderNOMS External Department UnsolicitedStart: 09-11-2024 End: 09-69-0115Jleyrreke Result EncounterGeneric External Data ProviderNOMS External Department UnsolicitedStart: 09-11-2024 End: 81-55-7955Fmmnrucon Result EncounterGeneric External Data ProviderNOMS External Department UnsolicitedStart: 09-09-2024 End: 85-18-0494Tulnuaruk Result EncounterGeneric External Data ProviderNOMS External Department UnsolicitedStart: 09-09-2024 End: 71-83-4143Rwoxynnib Result EncounterGeneric External Data ProviderNOMS External Department UnsolicitedStart: 09-09-2024 End: 95-01-2154xjvwijbatcVEBNH FAZIONot AvailableStart: 09-09-2024 End: 55-24-8317Yyovqu outpatient visit 15 minutesCorey Gloria DO Work Phone: NO[facility] BCP OBComment on above:37 weeks gestation of ([facility]); Third trimester ([facility]); Antepartum multigravida of advanced maternal age ([facility]); SGA (small for gestational age) ([facility]); History of gestational diabetesStart: 09-07-2024 End: 18-13-0253Kyhcrk flowsheetАнна Lopessindi CENTRAL OFFICE WORKER Work Phone: [facility] CWM FMStart: 09-07-2024 End: 13-42-5159Xleqjq flowsheetLisa Lopessindi CENTRAL OFFICE WORKER Work Phone: [facility] CWM FMStart: 09-07-2024 End: 38-29-0493Nbilmum encounter statusLisa Lopessindi CENTRAL OFFICE WORKER Work Phone: [facility] Work Phone: Start: 09-07-2024 End: 51-46-9835Okxjqbmc preventive med est patient 18-39 yrsLisa Lopessindi CENTRAL OFFICE WORKER Work Phone: [facility] CWM FMComment on above:Encounter for wellness examination in adult (Primary Dx); Primary insomniaStart: 09-07-2024 End: 88-23-1116qnvipyhskjSDRR AICHHOLZNot AvailableStart: 09-02-2024 End: 29-61-2571Lmfsmw flowsheetCorey Gloria DO Work Phone: NOT[facility] BCP OBStart: 09-02-2024 End: 40-37-7400Xufxgq flowsheetCorey Gloria DO Work Phone: [facility] BCP OBStart: 09-02-2024 End: 35-03-7890Utjvvktos Result EncounterGeneric External Data ProviderNOMS External Department UnsolicitedStart: 09-02-2024 End: 45-74-5477Vpooul outpatient visit 15 minutesCorey Gloria DO Work Phone: noms BCP OBComment on above:36 weeks gestation of ([facility]); Third trimester ([facility]); History of gestational diabetes; Antepartum multigravida of advanced maternal age ([facility])Start: 09-02-2024 End: 97-52-7436nugsylciymUCQVW FAZIONot AvailableStart: 09-01-2024 End: 48-15-7088Qpxdsubrs Result EncounterVidya Coco DESAI Work Phone: n[facility] External Department UnsolicitedStart: 09-01-2024 End: 96-21-2106Rgrsusaec Result EncounterAmy Coco DESAI Work Phone: n[facility] External Department UnsolicitedStart: 08-25-2024 End: 77-02-4938Uuovkwxiw Result EncounterGeneric External Data ProviderNOMS External Department UnsolicitedStart: 08-25-2024 End: 51-96-5831Pyihisvcn Result EncounterGeneric External Data ProviderNOMS External Department UnsolicitedStart: 08-23-2024 End: 62-32-5347XprjptScxl Aichholz NP Work Phone: n[facility] CW FMComment on above:Primary insomniaStart: 08-18-2024 End: 41-35-2265Fsuwzj flowsFito Carver CENTRAL OFFICE WORKER Work Phone: n[facility] BCP OBStart: 08-18-2024 End: 25-54-6145Vxsaxy flowsFito Carver CENTRAL OFFICE WORKER Work Phone: noms BCP OBStart: 08-18-2024 End: 73-83-2751Cganldfik Result EncounterGeneric External Data ProviderNOMS External Department UnsolicitedStart: 08-18-2024 End: 05-62-7672Wgrwph outpatient visit 15 minutesCely Carver CENTRAL OFFICE WORKER Work Phone: noms BCP OBComment on above:Third trimester ([facility]); 34 weeks gestation of ([facility])Start: 08-18-2024 End: 78-28-9537ffbbcljedjPSIEQVFO EBERLYNot AvailableStart: 08-13-2024 End: 58-76-0178Bwroasbmp Result EncounterGeneric External Data ProviderNOMS External Department UnsolicitedStart: 08-13-2024 End: 07-79-3468Kwbgcajbk Result EncounterGeneric External Data ProviderNOMS External Department UnsolicitedStart: 08-11-2024 End: 40-76-6749Ihuaeiwfw Result EncounterAmy Coco GISELLE Work Phone: noms External Department UnsolicitedStart: 08-11-2024 End: 58-91-5822Nbesmmtko Result EncounterAmy Coco GISELLE Work Phone: noms External Department UnsolicitedStart: 08-04-2024 End: 63-66-4121Ijowya outpatient visit 15 minutesCorey Gloria DO Work Phone: noms BCP OBComment on above:32 weeks gestation of ; Third trimester pregnancyStart: 08-04-2024 End: 93-38-0256rafdhflzkxSADLU FAZIONot AvailableStart: 08-04-2024 End: 44-53-8448Jnoxddtzd Result EncounterGeneric External Data ProviderNOMS External Department UnsolicitedStart: 08-04-2024 End: 75-46-0412Frzletndr Result EncounterGeneric External Data ProviderNOMS External Department UnsolicitedStart: 07-28-2024 End: 07-54-5330Blulxoccv Result EncounterGeneric External Data ProviderNOMS External Department UnsolicitedStart: 07-28-2024 End: 39-05-0982Qdgpywsky Result EncounterGeneric External Data ProviderNOMS External Department UnsolicitedStart: 07-23-2024 End: 30-58-8346Ojoycflsy Result EncounterGeneric External Data ProviderNOMS External Department UnsolicitedStart: 07-23-2024 End: 39-14-8539Xxchggwwe Result EncounterGeneric External Data ProviderNOMS External Department UnsolicitedStart: 07-21-2024 End: 25-19-2354Qjiqio outpatient visit 15 minutesAmy Coco GISELLE Work Phone: noms BCP OBComment on above:Third trimester ; 30 weeks gestation of ; History of gestational diabetesStart: 07-21-2024 End: 20-38-9774cmxhqazofnGWS Simran AvailableStart: 07-06-2024 End: 29-26-3631Omhaey outpatient visit 15 minutesCorey Gloria DO Work Phone: no[facility] OBComment on above:Third trimester ; 28 weeks gestation of ; Elevated glucose tolerance test; Diabetes mellitus screening; SGA (small for gestational age)Start: 07-06-2024 End: 76-72-2013kxlziyyxhfSEGMY FAZIONot AvailableStart: 07-05-2024 End: 59-70-3901Ykqnyqagh Result EncounterGeneric External Data ProviderNOMS External Department UnsolicitedStart: 07-05-2024 End: 84-53-3287Xqlxuwetb Result EncounterGeneric External Data ProviderNOMS External Department UnsolicitedStart: 06-16-2024 End: 78-06-5083Fpbbbn Konstantin Carver NP Work Phone: noMS BCP OBStart: 06-16-2024 End: 22-73-7192Rfchxz Konstantin Carver NP Work Phone: noMS BCP OBStart: 06-16-2024 End: 50-51-2219Rgjxifzz Result EncounterCorey Gloria DO Work Phone: noMS External Department UnsolicitedStart: 06-16-2024 End: 69-55-1724Mdgyok outpatient visit 15 minutesCely Carver CENTRAL OFFICE WORKER Work Phone: noMS [facility] OBComment on above:Second trimester ; 25 weeks gestation of ; Screen for STD (sexually transmitted disease); Diabetes mellitus screening; Antepartum multigravida of advanced maternal ageStart: 06-16-2024 End: 13-11-6742hljpfpaaibCOARXADQ EBERLYNot AvailableStart: 05-10-2024 End: 08-84-7995lgjxatgebdLLMGZ FAZIONot AvailableStart: 05-10-2024 End: 55-29-6177vdhefxoqewRQC RAMEYNot AvailableStart: 04-10-2024 End: 11-50-6581Fiafmszbr Result EncounterGeneric External Data ProviderNOMS External Department UnsolicitedStart: 04-10-2024 End: 12-80-2588Oewuezhoh Result EncounterGeneric External Data ProviderNOMS External Department UnsolicitedStart: 04-07-2024 End: 47-00-5375[place]as outpatient visit 15 minutesVidya DESAI Work Phone: NOMS BCP OBComment on above:Need for maternal serum alpha-protein (MSAFP) screening; Diabetes mellitus screening; Screening, , for anatomic survey; Second trimester ; 15 weeks gestation of pregnancyStart: 04-07-2024 End: 66-22-6258nrorjccjmqJFI RAMEYNot AvailableStart: 04-07-2024 End: 97-12-4289Ayqhpk Hugo DESAI Work Phone: NOMS BCP OBStart: 04-07-2024 End: 42-99-1285Zmqlfo Hugo DESAI Work Phone: NOMS BCP OBStart: 03-10-2024 End: 04-74-8125udarlozmujPSETU FAZIONot AvailableStart: 03-10-2024 End: 68-70-7790Ysgjqzzt flow sheetCorey Gloria DO Work Phone: NOMS BCP OBComment on above:11 weeks gestation of ; First trimester pregnancyStart: 03-10-2024 End: 12-04-6626Pslbrn flowsheetCorey Gloria DO Work Phone: NOMS BCP OBStart: 03-10-2024 End: 55-91-2822Sqhewm flowsheetCorey Gloria DO Work Phone: NOMS BCP OBStart: 02-27-2024 End: 67-80-7146ftvdjlcuuyKztil [facility]ioFiGreen [facility] Work Phone: Start: 02-27-2024 End: 15-04-2247Gshtospj ReferredCorey Gloria DO Work Phone: [facility] Path Spec Rosey HospStart: 02-27-2024 End: 23-45-1447Mqtyiawxh Result EncounterGeneric External Data ProviderNOMS External Department UnsolicitedStart: 02-27-2024 End: 59-48-7444Nhdbmqjgx Result EncounterGeneric External Data ProviderNOMS External Department UnsolicitedStart: 02-25-2024 End: 24-57-2982PavrpsKzva Aichholz CENTRAL OFFICE WORKER Work Phone: noms CWM FMComment on above:Primary insomniaStart: 02-12-2024 End: 76-47-6508Yhskcpbhx Result EncounterGeneric External Data ProviderNOMS External Department UnsolicitedStart: 02-12-2024 End: 34-52-0848Topimexne Result EncounterGeneric External Data ProviderNOMS External Department UnsolicitedStart: 02-11-2024 End: 37-48-6536akztekqympCZY RAMEYNot AvailableStart: 02-11-2024 End: 66-51-3920Mmhyct outpatient visit 5 minutesNoms Bcp Ob Gloria NurseNOMS BCP OBComment on above:GA: 6e9wTsuhi: 02-02-2024 End: 62-05-6416Bxlwrgfnw Result EncounterGeneric External Data ProviderNOMS External Department UnsolicitedStart: 02-02-2024 End: 95-57-6456Fhjwontwh Result EncounterGeneric External Data ProviderNOMS External Department UnsolicitedStart: 01-31-2024 End: 28-12-1208Gaabvwmsg Result EncounterCorey Gloria DO Work Phone: noms External Department UnsolicitedStart: 01-31-2024 End: 08-39-8478Zakmjnngz Result EncounterCorey Gloria DO Work Phone: noms External Department UnsolicitedStart: 01-29-2024 End: 53-18-5640Puxisnihf Result EncounterGeneric External Data ProviderNOMS External Department UnsolicitedStart: 01-29-2024 End: 18-62-0402Mttfxfakp Result EncounterGeneric External Data ProviderNOMS External Department UnsolicitedStart: 01-27-2024 End: 70-70-8358Tmuoetlwa Result EncounterCorey Gloria DO Work Phone: noms External Department UnsolicitedStart: 01-27-2024 End: 29-11-7254Fudepvghp Result EncounterCorey Gloria DO Work Phone: noms External Department UnsolicitedStart: 01-25-2024 End: 51-85-3366Tyqsljfgc Result EncounterGeneric External Data ProviderNOMS External Department UnsolicitedStart: 01-25-2024 End: 98-76-2002Ufigmzeav Result EncounterGeneric External Data ProviderNOMS External Department UnsolicitedStart: 01-23-2024 End: 64-79-2518Uaflncsyo Result EncounterGeneric External Data ProviderNOMS External Department UnsolicitedStart: 01-23-2024 End: 95-01-5032Ujvtfgqfn Result EncounterGeneric External Data ProviderNOMS External Department UnsolicitedStart: 01-21-2024 End: 03-91-0436Bmlilfhbq Result EncounterGeneric External Data ProviderNOMS External Department UnsolicitedStart: 01-21-2024 End: 20-86-3809Gdvjzlxvm Result EncounterGeneric External Data ProviderNOMS External Department UnsolicitedStart: 01-19-2024 End: 87-02-9139Vehsodlim Result EncounterGeneric External Data ProviderNOMS External Department UnsolicitedStart: 01-19-2024 End: 14-99-7594Voyeyxulp Result EncounterGeneric External Data ProviderNOMS External Department UnsolicitedStart: 12-10-2023 End: 62-09-4835Ottgdr flowsheetCorey Gloria DO Work Phone: noms BCP OBStart: 12-10-2023 End: 57-34-2838Qvzscr flowsheetCorey Gloria DO Work Phone: noms BCP OBStart: 12-10-2023 End: 31-44-1272Xexiusmfw Result EncounterGeneric External Data ProviderNOMS External Department UnsolicitedStart: 12-10-2023 End: 95-82-1882Ffarfan encounter procedureCorey Gloria DO Work Phone: [facility] Work Phone: Start: 12-10-2023 End: 98-08-6130Etpztzmp preventive med est patient 18-39 yrsCorey Gloria DO Work Phone: NOMS BCP OBComment on above:Well woman exam with routine gynecological exam; Missed mensesStart: 28-55-5662Uxdnray encounter statusCorey Gloria DO Work Phone: noms HealthcareStart: 06-30-2023 End: 56-55-7112unwtyckcpsVK Dar Brody Work Phone: [facility] Work Phone: Start: 06-30-2023 End: 44-23-0821Lnehqoaf ReferredMD Dar Brody Work Phone: [facility] Path Spec Rosey HospStart: 06-26-2023 End: 05-49-6275Qokhtdvpc Result EncounterGeneric External Data ProviderNOMS External Department UnsolicitedStart: 06-26-2023 End: 28-49-9475Ovpsnfgbk Result EncounterGeneric External Data ProviderNOMS External Department UnsolicitedStart: 06-20-2023 End: 44-76-8248Zanjzkcvq Result EncounterGeneric External Data ProviderNOMS External Department UnsolicitedStart: 06-20-2023 End: 85-38-8822Lwwqourqc Result EncounterGeneric External Data ProviderNOMS External Department UnsolicitedStart: 06-13-2023 End: 69-97-7837Lwpjmjsbr Result EncounterGeneric External Data ProviderNOMS External Department UnsolicitedStart: 06-13-2023 End: 41-03-7976Amjezvqen Result EncounterGeneric External Data ProviderNOMS External Department UnsolicitedStart: 02-20-2022 End: 45-01-4024ticgibqsorFDZ АННА AICHHOLZFacility:K0Riupj: 11-06-2021 End: 69-94-5064lwmsnepdpjGB SLAVA FAZIOFacility:V1Pwzqb: 08-20-2021 End: 35-50-7310fipjlkhwcfGCI АННА AICHHOLZFacility:Q9Dynld: 08-06-2021 End: 49-56-9915jfhvazeteiTVI АННА AICHHOLZFacility:H1 Procedures DateProcedureProcedure DetailPerforming ClinicianStart: 92-03-4360CXN,APTIMA HPV,AGE GDLNCorey Gloria DO Work Phone: Start: 87-90-4921HLM CBC WITH AUTO DIFFCorey Gloria DO Work Phone: Start: 50-70-9971VFI UA (CLEAN/CATCH) MUNITIONS WORKER/MICRO IF IND.Slava Gloria DO Work Phone: Start: 10-40-9196Kzstg dip stick/tablet rgnt non-auto w/o micrscpCorey Gloria DO Work Phone: Start: 66-88-3423OO OB BPP W NON-STRESSGeneric External Data ProviderStart: 93-25-8439IH OB BPP W NON-STRESSGeneric External Data ProviderStart: 18-18-5397Vbbjz dip stick/tablet rgnt non-auto w/o micrscpCorey Gloria DO Work Phone: Start: 16-97-7016HB OB BPP W NON-STRESSGeneric External Data ProviderStart: 12-68-8166VF OB GROWTHGeneric External Data ProviderStart: 73-56-0144Bxouu dip stick/tablet rgnt non-auto w/o micrscpCorey Gloria DO Work Phone: Start: 86-35-4983CFKGL GP B CULTURE+RFLXGeneric External Data ProviderStart: 35-32-3988ZZ OB BPP W NON-STRESSAmy Coco DESAI Work Phone: Start: 44-91-1790BK OB BPP W NON-STRESSGeneric External Data ProviderStart: 72-97-3121BO OB BPP W NON-STRESSGeneric External Data ProviderStart: 58-06-8891RB OB BPP W NON-STRESSGeneric External Data ProviderStart: 26-68-1615LS OB BPP W NON-STRESSAmy Coco DESAI Work Phone: Start: 99-31-4533Oweso dip stick/tablet rgnt non-auto w/o micrscpCorey Gloria DO Work Phone: Start: 65-62-1311BF OB BPP W NON-STRESSGeneric External Data ProviderStart: 08-17-9688CG OB GROWTHGeneric External Data ProviderStart: 78-60-2698IKDNNEO TOLERANCE 3 HOURCorey Gloria DO Work Phone: Start: 25-28-2934Ytsdc dip stick/tablet rgnt non-auto w/o micrscpCorey Gloria DO Work Phone: Start: 75-97-3696LAZ CBC WITH AUTO DIFFKristina Mehul CENTRAL OFFICE WORKER Work Phone: Start: 47-23-7688DSFOOICXV VAGINITIS (HTRX)Slava Gloria DO Work Phone: Start: 82-11-4671Giacv dip stick/tablet rgnt non-auto w/o micrscpKristina Mehul CENTRAL OFFICE WORKER Work Phone: Start: 83-75-0451WXJCLHX 1 HOURAmy Coco DESAI Work Phone: Start: 59-01-3264Nzryi dip stick/tablet rgnt non-auto w/o micrscpAmy Coco DESAI Work Phone: Start: 63-28-0384Kvxva dip stick/tablet rgnt non-auto w/o micrscpCorey Gloria DO Work Phone: Start: 02-52-5888IEH TESTCorey Gloria DO Work Phone: Start: 38-33-3987SF OB TRANSVAGINALGeneric External Data ProviderStart: 62-24-8565Ujfhw dip stick/tablet rgnt non-auto w/o micrscp Slava Gloria DO Work Phone: Start: 69-97-9367KDO PREG QUANT HCGCorey Gloria DO Work Phone: Start: 56-13-9805VEU PREG QUANT HCGGeneric External Data ProviderStart: 59-18-1396WVZ PREG QUANT HCGCorey Gloria DO Work Phone: Start: 61-56-1892PQI PREG QUANT HCGGeneric External Data ProviderStart: 01-13-6700NPD PREG QUANT HCGCorey Gloria DO Work Phone: Start: 40-78-5000MDO PREG QUANT HCGCorey Gloria DO Work Phone: Start: 67-34-1638DRM PREG QUANT HCGCorey Gloria DO Work Phone: Start: 86-53-5669SKG PREG QUANT HCGCorey Gloria DO Work Phone: Start: 24-67-0316Fbmsa test visual color cmprsn methsCorey InfoHubble DO Work Phone: Start: 51-40-9866XLM,APTIMA HPV,AGE GDLNCorey InfoHubble DO Work Phone: Start: 62-08-2227Hflisxtgmjz observation [Identifier] in Cervix by Cyto Jennifer Carver CENTRAL OFFICE WORKER Work Phone: Start: 03-70-0081Snjz cerv/vag auto thin layer prep mnl screenCorey Keepcon Work Phone: Start: 49-81-2014CI OB TRANSVAGINALGeneric External Data ProviderStart: 73-51-9851SG OB TRANSVAGINALGeneric External Data Provider Start: 05-50-9097MT OB TRANSVAGINALGeneric External Data ProviderStart: 93-64-2660URS PREG QUANT HCGGeneric External Data ProviderStart: 11-25-2022 Microscopic observation [Identifier] in Cervix by Cyto stainCorey Gloria DO Work Phone: Plan of Treatment DateCare ActivityDetailAuthorStart: 54-17-7036Fxmroxgfa for malignant neoplasm of cervixNOMS HealthcareStart: 12-19-2025 End: 51-57-2620Ymlivyy encounter ncuqqpkub43/26/2026 1:00 PM EDT Procedure Visit [facility] [place] [address] [place] [id number] Slava Castro, DO [address] [place] [address] NOMS Rosey OBGYNStart: 11-25-2025 Screening for malignant neoplasm of cervixNOMS HealthcareStart: 12-15-2024 End: 29-77-8766Kblwqeu encounter procedureNOMS BCP OBComment on above:Arrived Start: 10-26-2024 End: 90-50-5410wsbgyeyyhu14/02/2025 1:20 PM EDT Visit NOM[facility] [address] [place], [id number] Vidya Sepulveda, PA [address] [facility] [place] [address] NOMS Rosey OBGYNStart: 60-85-9227ALQMS-19 Vaccine ( season)COVID-19 Vaccine ( season)NOMS HealthcareStart: 09-14-2024 End: 21-94-2661Fksixbp encounter procedureNOMS BCP OBComment on above:Arrived Start: 09-09-2024 End: 65-70-5963Grmbybw encounter fvfwurnjg07/17/2025 11:50 AM EDT Routine [facility] OB [address] [place] [address] Slava Castro, DO [address] [place] [address] NOMS BCP OBStart: 09-07-2024 End: 54-64-7644Gzpcblh encounter cqdebzmwc48/15/2025 1:00 PM EDT Office Visit [facility] [place] [address] [place] [phone] Анна Ha, VÍCTOR [address] [place] [address] NOMS CWM FMStart: 09-02-2024 End: 29-09-6144BKFEAQX, GROUP B STREP WITH SUSCEPTIBLITYCULTURE, GROUP B STREP WITH SUSCEPTIBLITY Lab Routine Third trimester ([facility]) Expected: 09/02/2024, Expires: 09/02/2025[facility] Work Phone: comment on above:Expected: 09/02/2024, Expires: 09/02/2025Start: 09-02-2024 End: 19-55-8368Ywfeuxc encounter procedureNOMS BCP OBComment on above:Arrived Start: 08-18-2024 End: 68-68-9541Gvvmmpa encounter procedureNOMS BCP OBComment on above:Arrived Start: 08-04-2024 End: 75-14-4469Xbocrvl encounter uhsonlkmm51/11/2025 2:20 PM EDT Routine [facility] OB [address] [facility] [place] [address] Slava Castro DO [address] [facility] [place] [address] NOMS BCP OBStart: 07-21-2024 End: 73-97-9730Jfsqack encounter /28/2025 2:20 PM EDT Routine [facility] OB [address] [place] [address] Vidya Sepulveda PA [address] [facility] [address] [place], [place] [address] NOMS BCP OBStart: 07-21-2024 End: 26-66-4025CU biophysical profile w non stress testUS biophysical profile w non stress test Imaging Routine History of gestational diabetes Expected: 07/21/2024 (Approximate), Expires: 01/21/2025[facility] Work Phone: comment on above:Expected: 07/21/2024 (Approximate), Expires: 01/21/2025Start: 07-21-2024 End: 81-99-3739GW for pregnancyUS OB follow up transabdominal approach Imaging Routine History of gestational diabetes Expected: 07/21/2024, Expires: 11/21/2024[facility] HealthcareComment on above:Expected: 07/21/2024, Expires: 11/21/2024Start: 07-06-2024 End: 83-36-4569Yknezclfqnk of glucose 1 hour after glucose challenge for glucose tolerance testGlucose tolerance, 1 hour Lab Routine Diabetes mellitus screening Expected: 07/06/2024 (Approximate), Expires: 07/06/2025[facility] Work Phone: comment on above:Expected: 07/06/2024 (Approximate), Expires: 07/06/2025Start: 07-06-2024 End: 99-17-8558SC for pregnancyUS OB follow up transabdominal approach Imaging Routine SGA (small for gestational age) Expected: 07/06/2024, Expires: 11/06/2024NOOK HealthcareComment on above:Expected: 07/06/2024, Expires: 11/06/2024Start: 07-06-2024 End: 39-87-5216Qlfkxpp encounter otbcxqgyv11/13/2025 1:50 PM EDT [facility] [address] [facility] [place] [address] Slava Castro, DO [address] [place], [place] [id number] NOMS BCP OBStart: 07-06-2024 End: 00-63-7831Odviumgmvscl / ancillary services xmdmcuaway89/13/2025 1:30 PM EDT Ancillary Procedure [facility] [address] [facility] [place] [address] NOMS BCP OBStart: 06-16-2024 End: 56-80-1163WAP panel - Blood by Automated countCBC Lab Routine Diabetes mellitus screening Expected: 06/16/2024 (Approximate), Expires: 06/16/2025[facility] HealthcareComment on above:Expected: 06/16/2024 (Approximate), Expires: 06/16/2025Start: 06-16-2024 End: 01-23-4005Vqtmdhytsea of glucose 1 hour after glucose challenge for glucose tolerance testGlucose tolerance, 1 hour Lab Routine Diabetes mellitus screening Expected: 06/16/2024 (Approximate), Expires: 06/16/2025NOOK HealthcareComment on above:Expected: 06/16/2024 (Approximate), Expires: 06/16/2025Start: 06-16-2024 End: 00-70-7491OM for pregnancyUS OB follow up transabdominal approach Imaging Routine Antepartum multigravida of advanced maternal age Expected: 06/16/2024, Expires: 10/16/2024[facility] Work Phone: comment on above:Expected: 06/16/2024, Expires: 10/16/2024Start: 06-16-2024 End: 39-79-3906Hsgyplb encounter /23/2025 1:20 PM EDT Routine [facility] OB [address] [place] [address] Cely Carver, VÍCTOR [address] [place] [phone] [facility]MER[facility] OBComment on above:ArrivedStart: 05-10-2024 End: 63-57-8616Wtgykdw encounter xxjrgalhq42/17/2025 2:40 PM EDT Routine [facility] OB [address] [place] [address] Slava Castro DO [address] [place], [place] [id number] NOMS BCP OBStart: 05-10-2024 End: 59-74-9250Qztusismydll / ancillary services glfdruwenh31/17/2025 1:30 PM EDT Ancillary Procedure [facility] OB [address] [place] [address] [phone] BCP OBStart: 04-07-2024 End: 09-01-1584Lrpgqry encounter procedureNOST. JOHN'S [facility] OBComment on above:Arrived Start: 04-07-2024 End: 64-42-3708Buili fetoprotein, maternalAlpha fetoprotein, maternal Lab Routine Need for maternal serum alpha-protein (MSAFP) screening Expected: 04/07/2024 (Approximate), Expires: 05/05/2024N[facility] HealthcareComment on above: Expected: 04/07/2024 (Approximate), Expires: 05/05/2024Start: 04-07-2024 End: 79-40-7617Ogtiydfvcto of glucose 1 hour after glucose challenge for glucose tolerance testGlucose tolerance, 1 hour Lab Routine Diabetes mellitus screening Expected: 04/07/2024 (Approximate), Expires: 04/07/2025[facility] Work Phone: comment on above:Expected: 04/07/2024 (Approximate), Expires: 04/07/2025Start: 04-07-2024 End: 24-78-1848JK for pregnancyUS OB 14+ weeks anatomy scan Imaging Routine Screening, , for anatomic survey Expected: 04/07/2024, Expires: 04/07/2025[facility] HealthcareComment on above:Expected: 04/07/2024, Expires: 04/07/2025Start: 03-10-2024 End: 45-99-9327Shbzaah encounter syuvvsoep11/15/2025 2:20 PM EST Routine [facility] [address] [place] [address] Slava Castro, DO [address] [facility] [place] [address] NOMS BCP OBStart: 03-02-2024 End: 38-44-7540Sibabae encounter ebvljnnyd27/07/2025 9:40 AM EST Office Visit [facility] [address] [place] [phone] Анна Ha, CENTRAL OFFICE WORKER [address] [place] [address] NOMS CARY FMStart: 10-86-0187Phktx [facility]: 56-07-7579Agpyomwt identified in Urine by CultureUrine [facility] Centertart: 02-11-2024 End: 94-00-1095EOB/RhABO/Rh Lab Routine Missed menses , unspecified gestational age Expected: 02/11/2024 (Approximate), Expires: 02/10/2025[facility] HealthcareComment on above:Expected: 02/11/2024 (Approximate), Expires: 02/10/2025Start: 02-11-2024 End: 43-28-4051Tnqzj type and Indirect antibody screen panel - BloodType and screen Lab Routine Missed menses , unspecified gestational age Expected: 02/11/2024 (Approximate), Expires: 02/10/2025[facility] Work Phone: comment on above:Expected: 02/11/2024 (Approximate), Expires: 02/10/2025Start: 02-11-2024 End: 12-64-7206Hkmvo of abuse panel - Urine by Screen methodRapid drug screen, urine Lab Routine , unspecified gestational age Encounter for supervision of normal first in first trimester Expected: 02/11/2024 (Approximate), Expires: 02/10/2025[facility] HealthcareComment on above:Expected: 02/11/2024 (Approximate), Expires: 02/10/2025Start: 02-11-2024 End: 26-22-9553LT Pelvis transvaginalUS OB transvaginal Imaging Routine Missed menses Expected: 02/11/2024 (Approximate), Expires: 02/10/2025[facility] Comment on above:Expected: 02/11/2024 (Approximate), Expires: 02/10/2025Start: 02-11-2024 End: 46-36-7409iidtyxcffc96/18/2024 10:00 AM EST Initial [facility] OB [address] [place] [address] [place] [address] [facility] OBStart: 02-11-2024 End: 43-59-1339Dztldiziiksf / ancillary services qmagmcolzu25/18/2024 9:30 AM EST Ancillary Procedure [facility] [address] [facility] [address] [place] [address] [facility] OBStart: 53-46-4343Ohqxumuyg for malignant neoplasm of cervixHPV/CotestNOMS HealthcareStart: 66-41-5570LSE Vaccines (1 - 3- dose SCDM series)HPV Vaccines (1 - 3-dose SCDM series)NOMS HealthcareStart: 93-72-5598Gzppddywv B Vaccines (1 of 3 - 19+ 3-dose series)Hepatitis B Vaccines (1 of 3 - 19+ 3-dose series)NOM HealthcareStart: 47-34-6070Hguhlji of varicella vaccinationVaricella Vaccines (1 of 2 - 13+ 2-dose series)NOM HealthcareStart: 13-88-3325XOsY/Tdap/Td Vaccines (1 - Tdap)DTaP/Tdap/Td Vaccines (1 - Tdap)NOM HealthcareStart: 46-16-2738RHW Vaccines (1 of 1 - Standard series)MMR Vaccines (1 of 1 - Standard series)[facility] HospitalBacteria identified in Urine by Culture Urine culture Microbiology Routine Missed menses Ordered: 02/11/2024[facility] HealthcareComment on above:Ordered: 4CBC W Auto Differential panel - BloodCBC and differential Lab Routine Missed menses , unspecified gestational age Ordered: 02/11/2024[facility] HealthcareComment on above:Ordered: 4CHLAMYDIA TRACHOMATIS (GENITO/STI)CHLAMYDIA TRACHOMATIS (GENITO/STI) Lab Routine Screen for STD (sexually transmitted disease) Ordered: 06/16/2024 [facility] HealthcareComment on above:Ordered: 5Cytology Cervical or vaginal smear or scraping studyPap Smear Pathology and Cytology Routine Well woman exam with routine gynecological exam Ordered: 12/10/2023[facility] Healthcare Work Phone: comment on above:Ordered: 4Cytology Cervical or vaginal smear or scraping studyPap Smear Pathology and Cytology Routine Well woman exam with routine gynecological exam Ordered: 12/15/2024[facility] Healthcare Work Phone: comment on above:Ordered: 12/15/2024Hemoglobin A1c/Hemoglobin.total in BloodHemoglobin A1c Lab Routine Missed menses , unspecified gestational age Ordered: 02/11/2024[facility] HealthcareComment on above: Ordered: 02/11/2024Hepatitis B virus surface Ag [Presence] in Serum or Plasma by ImmunoassayHepatitis B surface antigen Lab Routine Missed menses , unspecified gestational age Ordered: 02/11/2024[facility] HealthcareComment on above: Ordered: 02/11/2024Hepatitis C virus Ab [Presence] in Serum or Plasma by ImmunoassayHepatitis C antibody Lab Routine Missed menses , unspecified gestational age Ordered: 02/11/2024[facility] HealthcareComment on above:Ordered: 02/11/2024HIV-1/HIV-2 antigen/antibody combination immunoassayHIV-1 and HIV-2 antibodies Lab Routine Missed menses , unspecified gestational age Ordered: 02/11/2024[facility] HealthcareComment on above:Ordered: 02/11/2024Human papilloma virus DNA [Presence] in Unspecified specimen by Probe with amplificationHPV DNA probe, amplified Microbiology Routine Well woman exam with routine gynecological exam Ordered: 12/10/2023[facility] HealthcareComment on above: Ordered: 12/10/2023Human papilloma virus DNA [Presence] in Unspecified specimen by Probe with amplificationHPV DNA probe, amplified Microbiology Routine Well woman exam with routine gynecological exam Ordered: 12/15/2024[facility] Comment on above:Ordered: 12/15/2024Neisseria gonorrhoeae DNA [Presence] in Unspecified specimen by JUAN with probe detectionNeisseria gonorrhea DNA probe, direct Lab Routine Screen for STD (sexually transmitted disease) Ordered: 06/16/2024[facility]:Ordered: 06/16/2024Reagin Ab [Presence] in Serum by RPRRPR Lab Routine Missed menses , unspecified gestational age Ordered: 02/11/2024[facility] HealthcareComment on above:Ordered: 02/11/2024ubella antibody, IgGRubella antibody, IgG Lab Routine Missed menses , unspecified gestational age Ordered: 02/11/2024[facility] HealthcareComment on above:Ordered: 02/11/2024SURESWAB(R) ADVANCED VAGINITIS PLUS, TMASURESWAB(R) ADVANCED VAGINITIS PLUS, TMA Pathology and Cytology Routine Screen for STD (sexually transmitted disease) Ordered: 06/16/2024[facility] Work Phone: comment on above:Ordered: 06/16/2024 Immunizations Immunization DateImmunizationNotesCare VdlbhopbJsrxafxf35-44-4026rohqtqknc, seasonal, injectable, preservative freeCorey Gloria DO Work Phone: [facility] Payers DatePayer CategoryPayerPolicy [id number] Care HMO (unspecified) [id number] Health [id number] 2023Medicaid (Managed Care)[employer] [id number] 2.1.141330.3.57[id number] 2..1.229845.3.57[id number] 2.1.886162.3.57[id number] 2.16840.1.713262.3.57[id number] 2.16.840.1.988283.3.57[id number] 2.840.1.678727.3.57[id number] 2.16840.1.183125.3.57[id number] 2..1.592158.3.57[id number] 2..1.982502.3.57[id number] 2..1.922085.3.57[id number] 2..1.829929.3.57[id number] 2..1.495827.3.57[id number] 2..1.819524.3.57[id number] 2..1.492616.3.57[id number] 2..1.193727.3.57[id number] 2.840.1.983428.3.57[id number] 2.0.1.412696.3.579.2.[id number] 2..1.518486.3.579.[id number] 2..1.442819.3.57[id number] 2.0.1.163028.3.57[id number] 2..1.517279.3.579.2.93204[id number] Health InsuranceAetna Insurance [id number] [id number] 2.840.1.3[id number] 2.840.1.579193.3.579.2.531 Social History DateTypeDetailFacilityStart: 03-05-2019 End: 79-84-6733Bdprcbg smoking status NHISNever smoked tobacco (finding) [facility]: 53-75-0503Kvw Assigned At BirthFeeastern ni[facility] hospitale [facility]: 53-08-1968Dwiczxc smoking status NHIS Ex-smokerN[facility] End: 15-43-8650Dgxzssc of tobacco useCurrent smokerN[facility]S Healthcare End: 68-98-2430Uurqrde of tobacco useCigarette SmokerNOMS HealthcareStart: 62-53-2300Istivlv use and exposureSmokeless tobacco non-userN[facility]S Healthcare Start: 12-10-2023 End: 82-45-4229Erhjzxqsq beverage intakeLifetime non-drinker (finding)[facility] HealthcareStart: 05-19-2023 End: 93-61-8783Vzvqfah of Social functionNOMS HealthcareStart: 05-19-2023 End: 25-97-7127Jcmxvz connection and isolation panelNOMS HealthcareDo you belong to any clubs or organizations such as methodist groups, unions, fraternal or athletic groups, or school groups?YesNOMS HealthcareAre you now , , , , never or living with a partner?MarriedNOMS HealthcareHow often to you have a drink containing alcohol?NeverN[facility]S Healthcare Start: 31-86-1259Rzc many standard drinks containing alcohol do you [...] the mortgage or rent on time?NoNOMS HealthcareStart: 24-39-6182Zkfeyvn CommentEx-moderate cigarette smoker (10-19/day)[facility] HealthcareStart: 56-09-5160Lkvzgwv CommentCaffeine: occasionalNOMS HealthcareStart: 16-15-5340Giw assigned at birthNot on fileNOOK HealthcareStart: 90-22-2136Axcnhi identityIdentifies as female gender (finding) [facility] HealthcareStart: 83-77-2190KzjmhkmclSRGI HealthcareStart: 96-61-5845Ubw Female (finding)[facility] HospitalDo you feel stress - tense, restless, nervous, or anxious, or unable to sleep at night because yourmind is troubled all the time - these days [OSQ]To some extentN[facility]S Healthcare Goals DatePatient GoalDesired Activity/StatePersonal health goal Functional Status HcoxFxvxppwafoAhwkgwNdlpymsj59-13-7410Mcphcub Health Questionnaire 2 item (PHQ- 2) [Reported][facility] HospitalEdpmwobigk54-29-6986Aqeeh score [AUDIT-C]0 08/31/2024 9:25 AM EDT Hu, MichaelRay County Memorial HospitalKuupdfsmbo72-70-6595Och often do you have a drink containing alcohol?Never 08/31/2024 9:25 AM EDT Ammyt, Generic NeverRay County Memorial HospitalPgilvkxwkn13-02-6275Ldhsiempbj statusPatient does not drink 08/31/2024 9:25 AM EDT Mychart, Generic Patient does not drinkRay County Memorial HospitalBzpoqukhqk97-17-4040Sla often do you have 6 or more drinks on 1 occasion?Never 08/31/2024 9:25 AM EDT Mychart, Generic NeverNOSSM Health Cardinal Glenn[facility] Children's HospitalVmgwaiotht13-12-8350Wlvuuje Health Questionnaire 2 item (PHQ- 2) [Reported][facility] HospitalAbhezwkhhd60-86-9457Fmlaoxh Health Questionnaire 2 item (PHQ- 2) [Reported][facility] Clinical Notes 12-10-2023 to 12-15-2024 Note Date & KdafBjnoFpiumjcs69-95-9125 History of Present illness Narrative* Cely Carver NP - 12/15/2024 3:00 PM EDT Reason for Appointment: Patient ID: Shreya Rogers is a 34 y.o. female who presents [...] nursing note reviewed. Exam conducted with a wringer and setter present. Vitals: Estimated body mass index is [...] of: Slava Castro DO documented in this encounterRay County Memorial HospitalEhoklahwfr53-80-7071 History of Present illness Narrative* GISELLE Cramer - 10/26/2024 1:20 PM EDT Reason for Appointment: Patient ID: Shreya Rogers is a 34 y.o. female who presents [...] & PLAN ICD-10-CM 1. 6 weeks follow-up ([facility]) Z39.2 norethindrone (Micronor) 0.35 MG tablet [...] behalf of: GISELLE Cramer documented in this encounterRay County Memorial HospitalMmbyntjpay24-63-2855 History of Present illness Narrative* Isatu Gilbert, SUMIT - 09/14/2024 10:00 AM EDT Reason for Appointment: Patient ID: Shreya Rogers is a 34 y.o. female who presents [...] nursing note reviewed. Exam conducted with a wringer and setter present. Vitals: Estimated body mass index is 33.78 kg/m as calculated from the following: Height as of 09/01/23: 5' 1 . Weight as of this encounter: 178 lb 12.8 oz. BP: 110/70 Patient's last menstrual period was 12/11/2023. ASSESSMENT & PLAN ICD-10-CM 1. 38 weeks gestation of ([facility]) Z3A.38 POCT urinalysis dipstick manually resulted 2. Third trimester ([facility]) Z34.93 POCT urinalysis dipstick manually resulted 3. Antepartum multigravida of advanced maternal age ([facility]) O09.529 4. SGA (small for gestational age) ([facility]) P05.10 5. History of gestational diabetes Z86.32 [...] of: Slava Castro DO documented in this encounterRay County Memorial HospitalEycmcofvbf58-33-7279 History of Present illness Narrative* Ramandeep Ferguson LPN - 09/09/2024 11:50 AM EDT Reason for Appointment: Patient ID: Shreya Rogers is a 34 y.o. female who presents [...] nursing note reviewed. Exam conducted with a wringer and setter present. Vitals: Estimated body mass index is 33.47 kg/m as calculated from the following: Height as of 09/01/23: 5' 1 . Weight as of this encounter: 177 lb 1.9 oz. BP: 120/74 Patient's last menstrual period was 12/11/2023. ASSESSMENT & PLAN ICD-10-CM 1. 37 weeks gestation of ([facility]) Z3A.37 POCT urinalysis dipstick manually resulted 2. Third trimester ([facility]) Z34.93 POCT urinalysis dipstick manually resulted 3. Antepartum multigravida of advanced maternal age ([facility]) O09.529 4. SGA (small for gestational age) ([facility]) P05.10 5. History of gestational diabetes Z86.32 Patient presents today for a routine obstetrics appointment. Patient is currently 37w6d with a Estimated Date of Delivery: 09/24/24. Patient to return to clinic accordingly for routine OB care. Documented by Ramandeep Ferguson LPN. on behalf of: Slava Castro DO documented in this encounterRay County Memorial HospitalLozegwdqpp09-97-1729 History of Present illness Narrative* Анна Ha [...] the original note were not included. Shreya Rogers is a 34 y.o. female presents with chief complaint of Annual Exam HPI: Diet:balanced Activity: light activity, is Mental Health Concerns:no Any hearing problems: no Any Vision problems: no Any Hospitalizations in the last year:no Specialist:COMMIS CHEF Concerns: SUBJECTIVE: MEDICATIONS: Current Outpatient Medications Medication [...] up yearly and prn documented in this encounterRay County Memorial HospitalNlvymyqhls87-29-9812 History of Present illness Narrative* Ramandeep Ferguson, FURNACE COMBUSTION TESTER - 09/02/2024 10:40 AM EDT Reason for Appointment: Patient ID: Shreya Rogers is a 34 y.o. female who presents [...] nursing note reviewed. Exam conducted with a wringer and setter present. Vitals: Estimated body mass index is 33.6 kg/m as calculated from the following: Height as of 08/31/24: 5' 1 . Weight as of this encounter: 177 lb 12.8 oz. BP: 120/70 Patient's last menstrual period was 12/11/2023. ASSESSMENT & PLAN ICD-10-CM 1. 36 weeks gestation of ([facility]) Z3A.36 POCT urinalysis dipstick manually resulted 2. Third trimester ([facility]) Z34.93 POCT urinalysis dipstick manually resulted CULTURE, GROUP B STREP WITH SUSCEPTIBLITY CULTURE, GROUP B STREP WITH SUSCEPTIBLITY 3. History of gestational diabetes Z86.32 4. Antepartum multigravida of advanced maternal age ([facility]) O09.529 Patient is doing well but [...] of: Slava Castro DO documented in this encounterRay County Memorial HospitalNmqysjfuga00-68-3568 History of Present illness Narrative* Cely Carver NP - 08/18/2024 9:30 AM EDT Reason for Appointment: Patient ID: Shreya Rogers is a 33 y.o. female who presents [...] nursing note reviewed. Exam conducted with a wringer and setter present. Vitals: Estimated body mass index is 33.07 kg/m as calculated from the following: Height as of 08/31/24: 5' 1 . Weight as of this encounter: 175 lb. BP: 116/82 Patient's last menstrual period was 12/11/2023. ASSESSMENT & PLAN ICD-10-CM 1. Third trimester ([facility]) Z34.93 2. 34 weeks gestation of ([facility]) Z3A.34 Return OB: Patient presents today [...] of: Cely Carver NP documented in this encounterRay County Memorial HospitalVmatuzrufq18-08-7154 History of Present illness Narrative* Isatu Gilbert LPN - 08/04/2024 2:20 PM EDT Reason for Appointment: Patient ID: Shreya Rogers is a 33 y.o. female who presents [...] for wellness examination in adult 09/01/2023 Depression ([facility]) 09/01/2023 Resolved Ambulatory Problems Diagnosis Date Noted Major depressive disorder, single episode, mild (HCC) ([facility]) 09/01/2023 Past Medical History: Diagnosis Date Abnormal Pap smear of cervix 2009 Contraception management Current mild episode of major depressive disorder without prior episode (HCC) ([facility]) Degenerative joint disease of spine Encounter for IUD removal History of abnormal cervical Pap smear LGSIL Pap smear of vagina 2012 Overweight (BMI 25.0-29.9) SVT (supraventricular tachycardia) ([facility]) Torn meniscus HISTORY PAST MEDICAL HISTORY SOCIAL HISTORY Past Medical History: Diagnosis Date Abnormal Pap smear of cervix 2009 Contraception management Current mild episode of major depressive disorder without prior episode (HCC) ([facility]) 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 Artis needs to stop with preg. Cat. C LGSIL Pap smear of vagina 2012 Overweight (BMI 25.0-29.9) SVT (supraventricular tachycardia) ([facility]) Torn meniscus Social History Tobacco Use [...] nursing note reviewed. Exam conducted with a wringer and setter present. Vitals: Estimated body mass index is [...] of: Slava Castro DO documented in this encounterRay County Memorial HospitalShodxtwptw01-32-5841 History of Present illness Narrative* GISELLE Cramer - 07/21/2024 2:20 PM EDT Reason for Appointment: Patient ID: Shreya Rogers is a 33 y.o. female who presents [...] for wellness examination in adult 09/01/2023 Depression ([facility]) 09/01/2023 Resolved Ambulatory Problems Diagnosis Date [...] behalf of: GISELLE Cramer documented in this encounterRay County Memorial HospitalMclsbrsvpj46-60-3725 History of Present illness Narrative* Isatu Gilbert LPN - 07/06/2024 1:50 PM EDT Reason for Appointment: Patient ID: Shreya Rogers is a 33 y.o. female who presents [...] for wellness examination in adult 09/01/2023 Depression ([facility]) 09/01/2023 Resolved Ambulatory Problems Diagnosis Date Noted Major depressive disorder, single episode, mild (HCC) ([facility]) 09/01/2023 Past Medical History: Diagnosis Date Abnormal Pap smear of cervix 2009 Contraception management Current mild episode of major depressive disorder without prior episode (HCC) ([facility]) Degenerative joint disease of spine Encounter for IUD removal History of abnormal cervical Pap smear LGSIL Pap smear of vagina 2012 Overweight (BMI 25.0-29.9) SVT (supraventricular tachycardia) ([facility]) Torn meniscus HISTORY PAST MEDICAL HISTORY SOCIAL HISTORY Past Medical History: Diagnosis Date Abnormal Pap smear of cervix 2009 Contraception management Current mild episode of major depressive disorder without prior episode (HCC) ([facility]) 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 Artis needs to stop with preg. Cat. C LGSIL Pap smear of vagina 2012 Overweight (BMI 25.0-29.9) SVT (supraventricular tachycardia) ([facility]) Torn meniscus Social History Tobacco Use [...] nursing note reviewed. Exam conducted with a wringer and setter present. Vitals: Estimated body mass index is [...] of: Slava Castro DO documented in this encounterTonya Ville [address]Znlerdepnt81-67-5681 History of Present illness Narrative* Cely Carver, VÍCTOR - 06/16/2024 1:20 PM EDT Reason for Appointment: Patient ID: Shreya Rogers is a 33 y.o. female who presents [...] for wellness examination in adult 09/01/2023 Depression ([facility]) 09/01/2023 Resolved Ambulatory Problems Diagnosis Date [...] Types: Cigarettes Quit date: 2015 Years since quittin.3 Smokeless tobacco: Never Tobacco [...] nursing note reviewed. Exam conducted with a wringer and setter present. Vitals: Estimated body mass index is [...] of: Cely Carver NP documented in this encounterRay County Memorial HospitalRxmuxbmzmt71-20-2797 History of Present illness Narrative* GISELLE Cramer - 04/07/2024 2:20 PM EST Reason for Appointment: Patient ID: Shreya Rogers is a 33 y.o. female who presents [...] for wellness examination in adult 09/01/2023 Depression ([facility]) 09/01/2023 Resolved Ambulatory Problems Diagnosis Date Noted Major depressive disorder, single episode, mild (HCC) ([facility]) 09/01/2023 Past Medical History: Diagnosis Date Abnormal Pap smear of cervix 2009 Contraception management Current mild episode of major depressive disorder without prior episode (HCC) ([facility]) Degenerative joint disease of spine Encounter for IUD removal History of abnormal cervical Pap smear LGSIL Pap smear of vagina 2012 Overweight (BMI 25.0-29.9) SVT (supraventricular tachycardia) ([facility]) Torn meniscus HISTORY PAST MEDICAL HISTORY SOCIAL HISTORY Past Medical History: Diagnosis Date Abnormal Pap smear of cervix 2009 Contraception management Current mild episode of major depressive disorder without prior episode (HCC) ([facility]) 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 Artis needs to stop with preg. Cat. C LGSIL Pap smear of vagina 2012 Overweight (BMI 25.0-29.9) SVT (supraventricular tachycardia) ([facility]) Torn meniscus Social History Tobacco Use [...] behalf of: GISELLE Cramer documented in this encounterRay County Memorial HospitalDospqamfgd12-12-4080 History of Present illness Narrative* Isatu Gilbert LPN - 03/10/2024 2:20 PM EST Reason for Appointment: Patient ID: Shreya Rogers is a 33 y.o. female who presents [...] nursing note reviewed. Exam conducted with a wringer and setter present. Vitals: Estimated body mass index is [...] or undercooked meat, and [facility]. Patient has been consulted regarding any further do's and don'tsof . Patient voiced understanding and all questions and concerns were answered. [facility] pt declined at this time. Orders Placed This Encounter Procedures POCT urinalysis dipstick manually resulted Follow Up: Patient is to return in 4 weeks for routine OB appointment. Documented by Isatu Gilbert LPN on behalf of: Slava Castro DO documented in this encounterRay County Memorial HospitalLwrywausxf23-98-6191 History of Present illness Narrative* Lynnette Stapleton LPN - 02/11/2024 10:00 AM EST Reason for Appointment: Patient ID: Shreya Rogers is a 33 y.o. female who presents [...] Noted Major depressive disorder, single episode, mild ([facility]) ([facility]) 09/01/2023 Past Medical History: Diagnosis Date Abnormal Pap smear of cervix 2009 Contraception management Current mild episode of major depressive disorder without prior episode (HCC) ([facility]) Degenerative joint disease of spine Encounter for IUD removal History of abnormal cervical Pap smear LGSIL Pap smear of vagina 2012 Overweight (BMI 25.0-29.9) SVT (supraventricular tachycardia) ([facility]) Torn meniscus Family History Problem Relation Name [...] or undercooked meat, and stay away from [facility]. Patient has also been advised to not change litter boxes and eat 6 small meals a day. Patient has been consulted regarding the do's and don'ts ofpregnancy. Patient was given labs and all questions and concerns were answered. Patient was given [place] to have completed at 10 weeks. Follow Up: Patient is to return in 4 weeks for routine OB appointment. Follow Up: Patient is to have labs drawn at directed and return to office for initial OB appointment with provider. Patient may call office as needed with any concerns or questions. Nurse Visit Completed by: Lynnette Stapleton LPN documented in this encounterRay County Memorial HospitalNfeorqekso49-20-9017 History of Present illness Narrative* Isatu Gilbert LPN - 12/10/2023 1:00 PM EDT Reason for Appointment: Patient ID: Shreya Rogers is a 33 y.o. female who presents for Well Women Visit Patient presents today for Annual Exam. MEDICATIONS Current Outpatient Medications Medication Instructions traZODone (DESYREL) 100 mg, Oral, Nightly ALLERGIES Allergies Allergen Reactions Other Powder on gloves Other Reaction(s): rash/itching PROBLEMS Active Ambulatory Problems Diagnosis Date Noted Insomnia 02/27/2023 Supraventricular tachycardia ([facility]/HCC) 12/09/2019 Left wrist pain 05/03/2023 Obesity [...] 2012 Overweight (BMI 25.0-29.9) SVT (supraventricular tachycardia) ([facility]) Torn meniscus Social History Tobacco Use [...] nursing note reviewed. Exam conducted with a wringer and setter present. Vitals: Estimated body mass index is [...] of: Slava Castro DO documented in this encounterNOOK HealthcareEvaluation noteNo assessment information availableOhiohealth [facility]ville [facility] Work Phone: Evaluation note* Diagnosis Primary [...] diabetes mellitus SGA (small for gestational age) Vqwva-hgj-pbdcb without mention of malnutrition, unspecified (weight) documented [...] 30-39.9) Depression, unspecified depression type Third trimester ([facility]) state, incidental 34 weeks gestation of ([facility]) documented in this encounter [facility]* [...] unspecified depression type 36 weeks gestation of ([facility]) Third trimester ([facility]) state, incidental History of gestational diabetes Personal history of other genital system and obstetric disorders Antepartum multigravida of advanced maternal age ([facility]) documented in this encounter [facility] note* [...] or maintaining sleep 37 weeks gestation of ([facility]) Third trimester ([facility]) state, incidental Antepartum multigravida of advanced maternal age ([facility]) SGA (small for gestational age) ([facility]) Agllf-hrw-jnxug without mention of malnutrition, unspecified (weight) History [...] or maintaining sleep 38 weeks gestation of ([facility]) Third trimester ([facility]) state, incidental Antepartum multigravida of advanced maternal age ([facility]) SGA (small for gestational age) ([facility]) Ccwyp-qkx-nksgz without mention of malnutrition, unspecified (weight) History [...] initiating or maintaining sleep 6 weeks follow-up ([facility]) documented in this encounter [facility] HealthcareEvaluation note* [...] and content) DATE CREATED AUTHOR 02/22/2022 [facility] DATE CREATED AUTHOR AUTHOR'S ORGANIZ ATION 03/06/2024 [facility] DATE CREATED AUTHOR AUTHOR'S ORGANIZ ATION 12/17/2024 [facility] Care Teams (unrecognized sec tion and content) Team Status: Active Member Role Status Dates Dar Brody MD Primary Care Provider Active Team Status: Inactive Member Role Status Dates Dar Brody MD Primary Care Provider Active Start: June 30, 2023 End: June 29orey FazioAttending ProviderActiveStart: June 30, 2023 End: June 30, 2023Team MemberRelationshipSpecialtyStart DateEnd Date Parag Bradley MD [address] [place] [address] [facility]08/14/22 Анна Ha NP [address] [place] [address] [facility]08/25/23Te MemberRelationshipSpecialtyStart DateEnd Date Parag Bradley MD [address] [place] [address] [facility]08/14/22 Анна Ha NP [address] [place] [address] [facility]08/25/23Team MemberRelationshipSpecialtyStart DateEnd Date Parag Bradley MD [address] [place] [address] PCP - [facility]08/14/22 Анна Ha NP [address] [place] [address] [facility]08/25/23Team MemberRelationshipSpecialtyStart DateEnd Date Parag Bradley MD [address] [place] [address] [facility]08/14/22 Анна Ha NP [address] [place] [address] [facility]08/25/23Team MemberRelationshipSpecialtyStart DateEnd Date Parag Bradley MD [address] [place] [address] [facility]08/14/22 Анна Ha NP [address] [place] [address] [facility]08/25/23Te MemberRelationshipSpecialtyStart DateEnd Date Parag Bradley MD [address] [place] [address] [facility]08/14/22 Анна Ha NP [address] [place] [address] [facility]08/25/23 Team Status: Inactive Member Role Status Dates Slava Castro DO Attending Provider Active Start : February 27, 2024 End: February 27, 2024Team MemberRelationshipSpecialtyStart DateEnd Date Parag Bradley MD [address] [place] [address] PCP - [facility]08/14/22 Анна Ha NP [address] [place] [address] [facility]08/25/23Team MemberRelationshipSpecialtyStart DateEnd Date Parag Bradley MD [address] [place] [address] PCP - [facility]08/14/22 Анна Ha NP [address] [place] [address] [facility]08/25/23Team MemberRelationshipSpecialtyStart DateEnd Date Parag Bradley MD [address] [place] [address] PCP - [facility]08/14/22 Анна Ha NP [address] [place] [address] [facility]08/25/23Team MemberRelationshipSpecialtyStart DateEnd Date Parag Bradley MD [address] [place] [address] PCP - [facility]08/14/22 Анна Ha NP [address] [place] [address] [facility]08/25/23Team MemberRelationshipSpecialtyStart DateEnd Date Parag Bradley MD [address] [place] [address] [facility] - [facility]08/14/22 Анна Ha NP [address] [place] [address] [facility]08/25/23Team MemberRelationshipSpecialtyStart DateEnd Date Parag Bradley MD [address] [place] [address] [facility] - [facility]08/14/22 Анна Ha NP [address] [place] [address] [facility]08/25/23Team MemberRelationshipSpecialtyStart DateEnd Date Parag Bradley MD [address] [place] [address] PCP - [facility]08/14/22 Анна Ha NP [address] [place] [address] [facility]08/25/23Te MemberRelationshipSpecialtyStart DateEnd Date Parag Bradley MD [address] [place] [address] [facility]08/14/22 Анна Ha NP [address] [place] [address] [facility]08/25/23Te MemberRelationshipSpecialtyStart DateEnd Date Parag Bradley MD [address] [place] [address] [facility]08/14/22 Анна Ha NP [address] [place] [address] [facility]08/25/23Te MemberRelationshipSpecialtyStart DateEnd Date Parag Bradley MD [facility]08/14/22 Анна Ha NP [address] [place] [address] [facility]08/25/23Te MemberRelationshipSpecialtyStart DateEnd Date Parag Bradley MD [facility] - [facility]08/14/22 Анна Ha, VÍCTOR [address] [place] [address] [facility]08/25/23Te MemberRelationshipSpecialtyStart DateEnd Date Parag Bradley MD [facility] - [facility]08/14/22 Анна Ha, VÍCTOR [address] [place] [address] [facility]08/25/23Team MemberRelationshipSpecialtyStart DateEnd Date Parag Bradley MD [facility] - [facility]08/14/22 Анна Ha, VÍCTOR [address] [place] [address] [facility]08/25/23Team MemberRelationshipSpecialtyStart DateEnd Date Parag Bradley MD [facility] - [facility]08/14/22 Анна Ha, VÍCTOR [address] [place] [address] [facility]08/25/23Te MemberRelationshipSpecialtyStart DateEnd Date Parag Bradley [facility] Анна Ha NP [address] [place] [address] PCP - [facility]08/25/23 Goals (unrecognized section and content) Goals may be documented in a n alternate sectionGoals may be documented in an alternate section Reason for Visit (unrecogniz ed section and content) ReasonCommentsWell Women VisitReasonCommentsAmenorrheaReasonOnset DateComments Med [id number]/25/2024ReasonCommentsRoutine VisitReasonCommentsMed Refill ReasonCommentsAnnual ExamReasonCommentsPostpartum Care FOR RECORDS [...] PRIMARY CLINICAL RECORDS. [facility] [employer] [facility]. provides no warranty or guarantee of the accuracy or completeness of information in this document.
== END 2025-01-24 16:16 | disposition home or self-care (01) ==
PROVIDERS: PCP Nurse Practitioner; Visit Provider Nurse Practitioner
DX: M25.521 Pain in right elbow (principal)
CPT/HCPCS: 73080